=== PATIENT | female | born 1990 | race Caucasian/White ===

== ENCOUNTER 2021-07-23 13:49 | Emergency (ER) | payer SELFPAY ==
--- OUTSIDE RECORDS SUMMARY | 2021-07-23 13:52 | XMS REPORT | Continuity of Care Document ---
:1990 Author Organization [facility] t Address [address] [place] [address] Care Team Providers Name Role Phone UNKNOWN Attending Clinician Unavailable Praveen Lizarraga Attending Clinician Unavailable Physician, No Primary or Family Admitting Clinician Unavaila ble Payers Payer Name Policy Type Policy Number Effective Date Expiration Date S ource $20 G [id number] 2007 00:00:00 Problems This patient has no known problems. Allergies, Adverse Reactions, Alerts Allergy Allergy Status Severity Reaction(s) Onset Inactive Treating Comm ents Source Name Type Date Date Clinician [place] Active [place] RASH 2020-04 [facility] ins 04-22 [place] 00:00: [address] [place] DA Active SV [facility] 6-11 [place] 00:00: [address] Medications This patient has no known medications. Procedures This patient has no known procedures. Encounters Start End Encounter Admission Attending Care Care Encounter Source Date/Time Date/Time Type Type Clinicians Facility Department ID 2021-07-09 Outpatient [facility] [id number] [place] 00:38:59 [facility] 2021-02-20 2021-02-20 Outpatient UNKNOWN HCANW REF [id number] [id number] [facility] 13:22:00 13:22:00 [id number] [facility] 2021-02-20 2021-02-20 Emergency EM Crismon, HCACR ESTRELLITA [id number] 1-2 [facility] 07:08:00 10:32:00 Christopher [id number] [facility] 2021-02-20 2021-02-20 Emergency EM Crismon, HCACR H[facility]CR [id number] [facility] 07:08:00 10:32:00 Christopher 24 [facility] Results Test Description Test Time Test Comments Results Result [facility] e Comments - US TRANSVAGINAL 2021-02-20 NON OB 09:32:00 [facility] : 1990 Sex: F * Patient Name: PETROS LIZ Unit No: [id number] EXAMS: CPT CODE: [id number] [place] [address] C3 TIME OF STUDY: 02/20/2021 REASON FOR EXAM: ovarain cyst COMPARISON: CT on the same date. TECHNIQUE: Transvaginal sonogram was performed. FINDINGS: Transvaginal sonogram: The uterus is anteverted. It measures 3.3 cm in length, 4.4 cm AP, and 5.1 cm transverse. No focal myometrial masses are seen. The endometrium echo stripe has a normal appearance and measures 5 mm in maximal AP dimension. IUD is present in the endometrium. The cervix is visualized and has nabothian cysts. The ovaries are well visualized and have a normal follicular appearance. The right ovary measures 2.5 x 1.7 x 1.8cm. The left measures 4.1 x 2.2 x 2.8 cm. There is a 2.2 cm dominant left ovarian follicle. Normal color flow is identified to both ovaries. No adnexal masses are identified. There is no fluid in the cul-de-sac. IMPRESSION: 1. No focal uterine masses. IUD in place in the endometrium. 2. No adnexal masses. 2.2 cm dominant left ovarian follicle, otherwise unremarkable ovaries. at 0932 Reported and signed by: Antonino Miranda MD CC: Indira MARIE Technologist: Sophy Stevenson Trnscrbd D/ (0932) [email or web address] Probe: [id number] Orig Print D/T: S: 02/20/2021 (0935) Probe: ELISABETH Cavanaugh NAME: PETROS LIZ [address] [place] [address] PHYS: Ind[place], [place] [address] : 1990 AGE: 30 SEX: F LOC: B.ERS PHONE #: [phone] EXAM DATE: 02/20/2021 STATUS: REG ER FAX #: [phone] RAD NO: Page 1 Signed Report LACTIC ACID 2021-02-20 09:17:00 Test Item Value Reference Range Interpretation Comme nts LACTIC ACID (test code = LACT) 2.1 mmol/L 0.4-2.0 H ON 02/20/21 AT 0917, B.LAB.EJK CALLED TO JASSON HUNTER. The report was conf irmed by read back protocols Y,N: YES. Critical values after th e first occurrence are excluded. - CT ABD PELVIS [id number] 08:35:00 [facility] : 1990 Sex: F Patient Name: PETROS LIZ Unit No: [id number] EXAMS: CPT CODE: [id number] CT ABD PELVIS W/CONT 48974 EXAM: - CT ABD PELVIS W/CONT LOCATION: C3 INDICATION: 30 years -old Female with bl flank pain / hx renal; calculi TECHNIQUE: Contrast - IV contrast was given. No oral contrast was given Portal venous phase - abdomen and pelvis No delayed phase images were obtained. Reconstructions - coronal and sagittal planes This exam was performed according to our departmental dose-optimizationprogram, which includes automated exposure control, adjustment of the mA and/or kV according to patient size and/or use of iterative reconstruction technique COMPARISON: None FINDINGS: Statements: None. Thoracic: Included images of the lower chest demonstrate no abnormalities. Hepatobiliary: The liver is normal without focal lesion. The gallbladder is normal. No biliary dilation. Pancreas: Normal. Spleen: Normal. Adrenals: Normal. Genitourinary: The kidneys are normal. No evidence of hydronephrosis. Evaluation of the bladder is limited, but no obvious bladder abnormality is present. 2.2 cm cystlike lesion in the left ovary. Gastrointestinal: No bowel obstruction or perienteric inflammation. The appendix is normal. Vascular: No evidence of aneurysm or dissection. Lymphatics: No enlarged lymph nodes by CT size criteria. Bones/Soft Tissues: No acute osseous findings. No ventral hernias. Peritoneum/Other: No extraluminal air. No extraluminal fluid. IMPRESSION: 2.2 cm cystlike lesion in the left ovary. [facility] Mao NAME: PETROS LIZ [address] [place] [address] Blvd PHYS: ABBE.Indira [place], [place] [address] : 1990 AGE: 30 SEX: F LOC: STEPHANIE PHONE #: [phone] EXAM DATE: 02/20/2021 STATUS: REG ER FAX #: [phone] RAD #: D/C DT PAGE 1 Signed Report (CONTINUED) Patient Name: PETROS LIZ Unit No: [id number] EXAMS: CPT CODE: [id number] CT ABD PELVIS W/CONT 05722 <Continued> No evidence of obstructive uropathy. at 0835 Reported and signed by: Adelso Adler MD CC: Indira MARIE Dictated Date/Time: 02/20/2021 (0835) Technologist: Orlando Burgos CTDI: 9.22 DLP: 492.32 Trnscrpt: 02/20/2021 (0835) [email or web address] ELISABETH Cavanaugh NAME: [address] [place]: [place] [address] : 1990 AGE: 30 SEX: FACCT NO: [id number] LOC: B.ERS PHONE #: [phone] EXAM DATE: 02/20/2021 STATUS: REG ER FAX #: [phone] RAD #: D/C DT PAGE 2 Signed Report Patient Name: PETROS LIZ Unit No: [id number] EXAMS: CPT CODE: [id number] CT ABD PELVIS W/CONT 81633 <Continued> Orig Print D/T: S: 02/20/2021 (0839) ELISABETH Cavanaugh NAME: [address] PHYS: [place] [address] : 1990 AGE: 30 SEX: F LOC: B.ERS PHONE #: [phone] EXAM DATE: 02/20/2021 STATUS: REG ER FAX #: [phone] RAD #: D/C DT PAGE 3 Signed [id number] 08:03:00 Test Item Value Reference Range Interpretation Comments LIPASE (test code = LIP) 50 Unit/L 114-286 L BASIC METABOLIC [id number] 08:03:00 Test Item Value Reference Range Interpretation Comments SODIUM (test code = 135.0 mmol/L 133-144 N NA) POTASSIUM (test 3.8 mmol/L 3.5-5.1 N code = K) CHLORIDE (test code 100 mmol/L 95-105 N = CL) CARBON DIOXIDE 26 mmol/L 21-32 N (test code = CO2) ANION GAP (test 9.0 GAP calc 4.0-15.0 N code = GAP) GLUCOSE (test code 113 MG/DL 70-110 H = GLU) BLOOD UREA NITROGEN 15 MG/DL 7-18 N (test code = BUN) CREATININE (test 0.64 MG/DL 0.55-1.30 N Results may be code = CREAT) depressed if p atient is takingN-Acetylc ystei ne (NAC) and Metamizole (Dipyrone). CALCIUM (test code 9.0 MG/DL 8.5-10.1 N = CA) INDEX HEMOLYSIS 1 NORMAL <10 MG See_Comment [Automat ed message] (test code = Index/DL The system [employer]) generated this result transmit ayde reference range : 1 NORMAL. The reference range was not used to interpret this result as normal/abnormal . INDEX ICTERIC (test 1 NORMAL <2 MG See_Comment [Auto mated message] code = ICTINDEX) Index/DL The system which generated this result transmit ayde reference range : 1 NORMAL. The reference range was not used to interpret this result as normal/abnormal . INDEX LIPEMIA (test 1 NORMAL <50 MG See_Comment [Aut omated message] code = LIPINDEX) Index/DL The system which generated this result transmit ayde reference range : 1 NORMAL. The reference range was not used to interpret this result as normal/abnormal . HEPATIC FUNCTION [id number] 08:03:00 Test Item Value Reference Range Interpretation Comments TOTAL PROTEIN (test code = PROT) 8.4 G/DL 6.4-8.2 H ALBUMIN (test code = ALB) 4.0 G/DL 3.4-5.0 N BILIRUBIN TOTAL (test code = BILT) 0.75 MG/DL 0.00-1.00 N BILIRUBIN DIRECT (test code = 0.19 MG/DL 0.00-0.30 N BILD) BILIRUBIN INDIRECT (test code = 0.56 MG/DL 0.2-1.3 N BILIND) SGOT/AST (test code = AST) 24 Unit/L 15-37 N SGPT/ALT (test code = ALT) 46 Unit/L 12-78 N ALKALINE PHOSPHATASE TOTAL (test 86 Unit/L 45-117 N code = ALKP) CBC W/O [id number] 07:54:00 Test Item Value Reference Range Interpretation Comments WHITE BLOOD CELL (test code = WBC) 17.4 K/mm3 4.1-12.1 H RED BLOOD CELL (test code = RBC) 4.56 M/mm3 3.8-5.5 N HEMOGLOBIN (test code = HGB) 14.6 G/DL 10.6-15.8 N HEMATOCRIT (test code = HCT) 41.9 % 31.8-47.4 N MEAN CELL VOLUME (test code = MCV) 91.9 fL 80.1-101.1 N MEAN CELL HGB (test code = MCH) 32.0 pg 25.3-35.3 N MEAN CELL HGB CONCETRATION (test 34.8 G/DL 32.7-35.1 N code = MCHC) RED CELL DISTRIBUTION WIDTH (test 12.1 % 12.2-16.4 L code = RDW) PLATELET COUNT (test code = PLT) 287 K/mm3 155-337 N MEAN PLATELET VOLUME (test code = 8.8 fL 6.8-11.2 N MPV) UA RFLX MICR CULT IF [id number] 07:51:00 Test Item Value Reference Range Interpretation Comments UA COLOR (test code = YELLOW DESCRIPT YELLOW COLU) UA APPEARANCE (test TURBID CLEAR A code = APPU) (1+)HAZY-CLDY DESCRIPT UA GLUCOSE DIPSTICK NORMAL (0) See_Comment [Automa ayde (test code = DGLUU) mg/dL message] The system which generated this result transmit ayde reference range : 0 (NORMAL). The reference range was not used to interpret this result as normal/abnormal . UA BILIRUBIN DIPSTICK NEGATIVE (0.0) See_Comment [Au tomated (test code = BILU) mg/dL message] The system which generated this result transmit ayde reference range : (NEG) 0. The reference range was not used to interpret this result as normal/abnormal . UA KETONE DIPSTICK NEGATIVE (0) See_Comment [Automat ed (test code = KETU) mg/dL message] The system which generated this result transmit ayde reference range : (NEG) 0. The reference range was not used to interpret this result as normal/abnormal . UA SPECIFIC GRAVITY 1.026 SG 1.001-1.035 (test code = SGU) UA BLOOD DIPSTICK NEGATIVE (0.00) See_Comment [Autom ated (test code = WILLIAM) mg/dL message] T he system which generated this result transmit ayde reference range : 0 (NEG). The reference range was not used to interpret this result as normal/abnormal . UA PH DIPSTICK (test 6.5 pH UNITS 4.6-8.0 code = JEFF) UA PROTEIN DIPSTICK NEGATIVE (0) See_Comment [Automa ayde (test code = PROU) mg/dL message] The system which generated this result transmit ayde reference range : <30 (1+). The reference range was not used to interpret this result as normal/abnormal . UA UROBILINIOGEN NORMAL (0) See_Comment [Automated DIPSTICK (test code = mg/Dl messag e] The URO) system which generated this result transmit ayde reference range : <2.0 (1+). The reference range was not used to interpret this result as normal/abnormal . UA NITRITE DIPSTICK NEGATIVE (0) NEG (test code = MIRYAM) SCREEN UA LEUKOCYTE ESTERASE 250 Leuk/mcL See_Comment A [Auto mated DIPSTICK (test code = messag e] The LEUU) system which generated this result transmit ayde reference range : (NEG) 0. The reference range was not used to interpret this result as normal/abnormal . UA COMMENT (test code CLEAN CATCH SpecComment = COMU) SPEC NoteSPEC UA WBC (test code = 3-5 #WBC/HPF 0-3 WBCU) UA RBC (test code = 0-3 #RBC/HPF 0-3 RBCU) UA BACTERIA (test MODERATE >5 NONE-FEW A code = BACU) /HPF UA SQUAMOUS CELLS MANY >20 /UL NONE-SQepi (test code = SQU) UA MUCUS (test code = RARE /LPF NONE MUCU) UA AMORPHOUS SEDIMENT RARE >0 #/mcL NONE-FEW (test code = AMORU) UA CULTURE NEEDED? Crit NOTmet Cult byWBC (test code = UACULT) CULT-N/A Criteria Specimen comments: ccIndication for culture: Suprapubic PainUR HCG QUAL 2021-02-20 07:51:00 Test Item Value Reference Range Interpretation Comments UR HCG QUAL (test NEGATIVE NEG Very dilut e urines with a code = HCGQLU) low specific gravity may notcontain repr esentative levels of hCG. Specimen comments: ccIndication for culture: Suprapubic Pain- XR ELBOW 3 + V [id number] 18:55:00 FAX: Ortega Barrera MD [phone] [place]: [facility]: [facility] FAX: Efren Smith NP [phone] Patient Name: PETROS SYKES Unit No: [id number] EXAMS: CPT CODE: [id number] XR ELBOW 3 + [place] [address] EXAMINATION: - XR FOREARM 2 VIEWS LT, - XR ELBOW 3 + V LT. LOCATION: B2. HISTORY: fall. COMPARISON: None. TECHNIQUE: AP, lateral, and oblique views of the left elbow were obtained. AP and lateral views of the left forearm w ere also obtained. FINDINGS: No acute fracture or dislocation is identified. Soft tissue structures appear within normal limits. IMPRESSION: No acute osseous abnormality is identified. at 1855 Reported and signed by: Pau Cardenas MD CC: Efren Gonzalez NP Dictated Date/Time: 06/06/2018 (1854)Technologist: Elise Stark Transcribed Date/Time: 06/06/2018 (1854) By: [email or web address] Orig Print D/T: S: 06/06/2018 (1858) ELISABETH Cavanaugh NAME: PETROS SYKES [address] [place] [address] PHYS: TERE. - Efren Gonzalez [place], [place] [address] : 1990 AGE: 28 SEX: F LOC: B.ERS PHONE #: [phone] EXAM DATE: 06/06/2018 STATUS: REG ER FAX #: [phone] RAD NO: DC Dt: PAGE 1 Signed Report- XR FOREARM 2 VIEWS LT 2018-06-06 18:55:00 FAX: Ortega Barrera MD [phone] [place]: St: [facility] FAX: Efren Smith NP [phone] Patient Name: PETROS SYKES Unit No: [id number] EXAMS: CPT CODE: [id number] XR FOREARM [address] [place] [address] EXAMINATION: - XR FOREARM 2 VIEWS LT, - XR ELBOW 3 + V LT. LOCATION: B2. HISTORY: fall. COMPARISON: None. TECHNIQUE: AP, lateral, and oblique views of the left elbow were obtained. AP and lateral views of the left forearm w ere also obtained. FINDINGS: No acute fracture or dislocation is identified. Soft tissue structures appear within normal limits. IMPRESSION: No acute osseous abnormality is identified. at 1855 Reported and signed by: Pau Cardenas MD CC: Efren Gonzalez NP Dictated Date/Time: 06/06/2018 (1854)Technologist: Elise Stark Transcribed Date/Time: 06/06/2018 (1854) By: [email or web address] Orig Print D/T: S: 06/06/2018 (1858) ELISABETH Cavanaugh NAME: PETROS SYKES [address] [place] [address] PHYS: - Efren Gonzalez [place], [place] [address] : 1990 AGE: 28 SEX: F LOC: B.ERS PHONE #: [phone] EXAM DATE: 06/06/2018 STATUS: REG ER FAX #: [phone] RAD NO: DC Dt: PAGE 1 Signed Report- XR HAND 3 + V LT 2018-06-06 18:54:00 FAX: Ortega Barrera MD [phone] [place]: St: REG FAX: Efren Smith NP [phone] Patient Name: PETROS SYKES Unit No: [id number] EXAMS: CPT CODE: [id number] XR HAND 3 + [place] [address] EXAMINATION: - XR WRIST 3 + V LT, - XR HAND 3 + V LT. LOCATION: B2. HISTORY: fall. COMPARISON: None. TECHNIQUE: AP, lateral, andoblique views of the left wrist and left hand were obtained. FINDINGS: No a cute fracture or dislocation is identified. Incidental note is made of negative ulnar variance. Soft tissue structures appear within normal limits. IMPRESSION: No acute osseous abnormality is identified. at 1854 Reported and signed by: Pau Cardenas MD CC: Efren Gonzalez NP Dictated Date/Time: 06/06/2018 (1853)Technologist: Elise Stark Transcribed Date/Time: 06/06/2018 (1853) By: [email or web address] Orig Print D/T: S: 06/06/2018 (1856) ELISABETH Cavanaugh NAME: PETROS SYKES [address] [place] [address] PHYS: NIRJA. - Efren Gonzalez [place] [address] : 1990 AGE: 28 SEX: F LOC: STEPHANIE PHONE #: [phone] EXAM DATE: 06/06/2018 STATUS: REG ER FAX #: [phone] RAD NO: DC Dt: PAGE 1 Signed Report- XR WRIST 3 + V LT 2018-06-06 18:54:00 FAX: Ortega Barrera MD [phone] [place]: E St: REG FAX: Efren Smith NP [phone] Patient Name: PETROS SYKES Unit No: [id number] EXAMS: CPT CODE: [id number] XR WRIST 3 + [place] LT [address] EXAMINATION: - XR WRIST 3 + V LT, - XR HAND 3 + V LT. LOCATION: B2. HISTORY: fall. COMPARISON: None. TECHNIQUE: AP, lateral, andoblique views of the left wrist and left hand were obtained. FINDINGS: No a cute fracture or dislocation is identified. Incidental note is made of negative ulnar variance. Soft tissue structures appear within normal limits. IMPRESSION: No acute osseous abnormality is identified. at 1854 Reported and signed by: Pau Cardenas MD CC: Efren Gonzalez NP Dictated Date/Time: 06/06/2018 (1853)Technologist: Elise Stark Transcribed Date/Time: 06/06/2018 (1853) By: [email or web address] Orig Print D/T: S: 06/06/2018 (1856) [facility] Mao NAME: PETROS SYKES [address] [place] [address] PHYS: [email or web address] - [place] [address] : 1990 AGE: 28 SEX: F LOC: STEPHANIE PHONE #: [phone] EXAM DATE: 06/06/2018 STATUS: REG ER FAX #: [phone] RAD NO: DC Dt: PAGE 1 Signed Report- XR HUMERUS 2 + V LT 2018-06-06 18:51:00 FAX: Ortega Barrera MD [phone] [place]: E St: REG FAX: Efren Smith NP [phone] Patient Name: PETROS SYKES Unit No: [id number] EXAMS: CPT CODE: [id number] XR HUMERUS 2 + [place] [address] EXAMINATION: - XR HUMERUS 2 + V LT. LOCATION: B2. HISTORY: fall. COMPARISON: None. TECHNIQUE: AP and lateral views of the left humerus were obtained. FINDINGS: No acute fracture or dislocation is identified. Soft tissue structures appear within normal limits. IMPRESSION: No acuteosseous abnormality is identified. at 1851 Reported and signed by: Pau Cardenas [facility]: Efren Gonzalez NP Dictated Date/Time: 06/06/2018 (1850)Technologist: Elise Stark Transcribed Date/Time: 06/06/2018 (1850) By: [email or web address] Orig Print D/T: S: 06/06/2018 (1854) ELISABETH Cavanaugh NAME: PETROS SYKES [address] [place] [address] PHYS: TERE. - Efren Gonzalez [place], [place] [address] : 1990 AGE: 28 SEX: F LOC: STEPHANIE PHONE #: [phone] EXAM DATE: 06/06/2018 STATUS: REG ER FAX #: [phone] RAD NO: DC Dt: PAGE 1 Signed Report- XR SHOULDER 2 + V LT 2018-06-06 18:50:00 FAX: Ortega Barrera MD [phone] [place]: St: REG FAX: Efren Smith NP [phone] Patient Name: PETROS SYKES Unit No: [id number] EXAMS: CPT CODE: [id number] XR SHOULDER 2 + [place] [address] EXAMINATION: - XR SHOULDER 2 + V LT. LOCATION: B2. HISTORY: fall. COMPARISON: None. TECHNIQUE: Internal rotation, external rotation, and scapular Y views of the left shoulder were obtained. FINDINGS: No acute fracture or dislocation is identified. Soft tissue structures appear within normal limits. IMPRESSION: No acute osseous abnormality is identified. at 1850 Reported and signed by: Pau Cardenas MD CC: Efren Gonzalez NP Dictated Date/Guillermo e: 06/06/2018 (1849)Technologist: Elise Stark TranscribedDate/Time: 06/06/2018 (1849) By: [email or web address] Orig Print D/T: S: 06/06/2018 (185) ELISABETH Cavanaugh NAME: PETROS SYKES [address] [place] [address] PHYS: [email or web address] - Efren Gonzalez NP [place], [place] [address] : 1990 AGE: 28 SEX: F LOC: STEPHANIE PHONE #: [phone] EXAM DATE: 06/06/2018 STATUS: REG ER FAX #: [phone] RAD NO: DC Dt: PAGE 1 Signed Report
--- NOTE | 2021-07-23 14:11 | ER ---
Nurse's Notes [facility] Name: Brooke Thomas Age: 31 yrs Sex: Female : 1990 Arrival Date: 07/23/2021 Time: 13:50 Bed 17 Private MD: Diagnosis: Periapical abscess without sinus Presentation: 07/23 13:55 Chief complaint: Patient states: "On Sunday I noticed a toothache and it started to get ab2 better but I woke up today and my face is swollen. I think its another abscess.". Coronavirus screen: Vaccine status: Patient reports receiving the 2nd dose of the covid vaccine. Client denies travel out of the [place] in the last 14 days. At this time, the client does not indicate any symptoms associated with coronavirus-19. Ebola Screen: Patient negative for fever greater than or equal to 101.5 degrees Fahrenheit, and additional compatible Ebola Virus Disease symptoms Patient denies exposure to infectious person. Patient denies travel to an Ebola-affected area in the 21 days before illness onset. No symptoms or risks identified at this time. Initial Sepsis Screen: Does the patient meet any 2 criteria? No. Patient's initial sepsis screen is negative. Does the patient have a suspected source of infection? No. Patient's initial sepsis screen is negative. Risk Assessment: Do you want to hurt yourself or someone else? Patient reports no desire to harm self or others. Onset of symptoms is unknown. 13:55 Method Of Arrival: Ambulatory ab2 13:55 Acuity: ILA 4 ab2 Triage Assessment: 13:57 General: Appears in no apparent distress. uncomfortable, Behavior is calm, cooperative, ab2 appropriate for age. Pain: Complains of pain in right jaw Pain currently is 6 out of 10 on a pain scale. EENT: Reports pain in right jaw. Neuro: Level of Consciousness is awake, alert, obeys commands, Oriented to person, place, time, situation, Appropriate for age Strategic Planning Consultant are equal bilaterally Moves all extremities. Gait is steady, Speech is normal, Facial symmetry appears normal. Cardiovascular: No deficits noted. Denies chest pain, shortness of breath. Respiratory: Airway is patent Respiratory effort is even, unlabored, Respiratory pattern is regular, symmetrical. GI: No deficits noted. No signs and/or symptoms were reported involving the gastrointestinal system. : No deficits noted. No signs and/or symptoms were reported regarding the genitourinary system. Derm: Abscess located on right jaw. 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 - Social history:: Smoking status: Patient reports the use of cigarette tobacco products, smokes one pack cigarettes per day. Screenin:42 Abuse screen: Denies threats or abuse. Nutritional screening: No deficits noted. ll1 Tuberculosis screening: No symptoms or risk factors identified. Fall Risk Total Ascencio Fall Scale indicates No Risk (0-24 pts). Assessment: 14:42 Reassessment: No changes from previously documented assessment. Patient and/or family ll1 updated on plan of care and expected duration. Pain level reassessed. Patient is alert, oriented x 3, equal unlabored respirations, skin warm/dry/pink. Patient states feeling better. Vital Signs: 13:55 BP 121 / 80; Pulse 94; Resp 17; Temp 97.8(TE); Pulse Ox 100% on R/A; Weight 74.84 kg; ab2 Height 5 ft. 3 in. (160.02 cm); Pain 6/10; 14:42 BP 121 / 71; Pulse 88; Resp 16; Pulse Ox 100% ; ll1 13:55 Body Mass Index 29.23 (74.84 kg, 160.02 cm) ab2 ED Course: 13:50 Patient arrived in ED. jj6 13:57 Triage completed. ab2 13:58 Ibeth Quinn, MARION is Primary Nurse. ll1 13:58 Arm band placed on left wrist. ab2 13:59 Paul Lopez NP is PHCP. pm1 13:59 Mark Panchal MD is Attending Physician. pm1 13:59 Patient placed in an exam room, on a stretcher. ll1 14:43 Patient has correct armband on for positive identification. Bed in low position. Call ll1 light in reach. Side rails up X 1. Cardiac monitoring not applicable on this patient. 14:43 No provider procedures requiring assistance completed. Patient did not have IV access ll1 during this emergency room visit. Administered Medications: 14:08 Not Given (Physician Discretion): HYDROcodone-acetaminophen 5 mg-325 mg 1 tabs PO once; pm1 RASS on ADMIN: Combtv4, Very Agttd3, Agttd2, Rstlss1, AlertClm0, Drwsy-1, Lt Sdtn-2, Mod Sdtn-3, Dp Sdtn-4, UnArsble-5 14:15 Drug: Clindamycin 600 mg Route: IM; Site: left gluteus; 1 14:42 Follow up: Response: No adverse reaction ll1 14:15 Drug: Ketorolac 60 mg Route: IM; Site: right gluteus; 1 14:42 Follow up: Response: No adverse reaction; Pain is decreased; RASS: Alert and Calm (0) 1 Outcome: 14:11 Discharge ordered by MD. pm1 14:43 Discharged to home ambulatory. ll1 14:43 Condition: stable 14:43 Discharge instructions given to patient, Instructed on discharge instructions, follow up and referral plans. medication usage, Demonstrated understanding of instructions, follow-up care, medications, Prescriptions given X 2. 14:43 Patient left the ED. 1 Signatures: Paul Lopez NP MACHINE FOLDER pm1 Ibeth Quinn RN RN ll1 Libra Ramos6 Cosme Oliva ab2 Corrections: (The following items were deleted from the chart) 13:57 13:57 Allergies: No Known Allergies; ab2 ab2
--- NOTE | 2021-07-23 14:11 | EDPHYS ---
Physician Documentation [facility] Name: Brooke Thomas Age: 31 yrs Sex: Female : 1990 Arrival Date: 07/23/2021 Time: 13:50 Bed 17 Private MD: BLAISE Physician Mark Panchal HPI: 07/23 14:05 This 31 yrs old Female presents to ER via Ambulatory with complaints of Jaw Pain, pm1 Swelling right side of face. 14:05 Onset: The symptoms/episode began/occurred Dental pain onset 1 week ago. Onset swelling pm1 to right side of jaw onset yesterday. Patient has been taking leftover Keflex from prior dental infections for approximately 1 week without resolution of dental pain. Patient reports that she has a dentist. Associated signs and symptoms: Pertinent negatives: fever, sore throat. Modifying factors: The patient symptoms are alleviated by nothing. The patient has experienced similar episodes in the past, multiple times. The patient has not recently seen a physician. 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 - Social history:: Smoking status: Patient reports the use of cigarette tobacco products, smokes one pack cigarettes per day. ROS: 14:05 Constitutional: Negative for fever, chills, and weight loss. pm1 14:05 Cardiovascular: Negative for chest pain, palpitations, and edema, Respiratory: Negative for shortness of breath, cough, wheezing, and pleuritic chest pain, Abdomen/GI: Negative for abdominal pain, nausea, vomiting, diarrhea, and constipation, MS/Extremity: Negative for injury and deformity, Skin: Negative for injury, rash, and discoloration, Neuro: Negative for headache, weakness, numbness, tingling, and seizure. 14:05 ENT: Positive for dental pain, Right jaw swelling, Negative for sore throat, difficulty swallowing, difficulty handling secretions, hoarseness. 14:05 All other systems are negative. Exam: 14:05 Constitutional: This is a well developed, well nourished patient who is awake, alert, pm1 and in no acute distress. Head/Face: Normocephalic, atraumatic. 14:05 Skin: Warm, dry with normal turgor. Normal color with no rashes, no lesions, and no evidence of cellulitis. MS/ Extremity: Pulses equal, no cyanosis. Neurovascular intact. Full, normal range of motion. 14:05 ENT: Mouth: Lips: normal, moist, Oral mucosa: normal, pink and intact, moist, Gums: normal with healthy appearance, abscess, is not appreciated, drooling, is not appreciated, Negative for trismus, Dental exam: dental caries, that is severe, specifically in the lower right first molar (#30), missing teeth, diffusely, Swelling right jaw. 14:05 Neck: Exam negative for acute changes, External neck: is normal, Lymph nodes: no appreciated lymphadenopathy. 14:05 Cardiovascular: Exam negative for acute changes, Rate: normal, Rhythm: regular, Pulses: no pulse deficits are appreciated, Heart sounds: normal. 14:05 Respiratory: Exam negative for acute changes, respiratory distress, shortness of breath. 14:05 Neuro: Exam negative for acute changes, Orientation: is normal, Mentation: is normal, Motor: is normal, moves all fours. Vital Signs: 13:55 BP 121 / 80; Pulse 94; Resp 17; Temp 97.8(TE); Pulse Ox 100% on R/A; Weight 74.84 kg; ab2 Height 5 ft. 3 in. (160.02 cm); Pain 6/10; 14:42 BP 121 / 71; Pulse 88; Resp 16; Pulse Ox 100% ; ll1 13:55 Body Mass Index 29.23 (74.84 kg, 160.02 cm) ab2 MDM: 14:00 Patient medically screened. pm1 14:08 ED course: Patient PMPaware reviewed. Patient has taken suboxone in the past. Will give pm1 the patient non-narcotic medications in the ER. 14:15 Data reviewed: vital signs. Data interpreted: Pulse oximetry: on room air is 100 %. pm1 Interpretation: normal. 14:15 Counseling: I had a detailed discussion with the patient and/or guardian regarding: the pm1 historical points, exam findings, and any diagnostic results supporting the discharge/admit diagnosis, the need for outpatient follow up, for definitive care, a dentist, to return to the emergency department if symptoms worsen or persist or if there are any questions or concerns that arise at home. Administered Medications: 14:08 Not Given (Physician Discretion): HYDROcodone-acetaminophen 5 mg-325 mg 1 tabs PO once; pm1 RASS on ADMIN: Combtv4, Very Agttd3, Agttd2, Rstlss1, AlertClm0, Drwsy-1, Lt Sdtn-2, Mod Sdtn-3, Dp Sdtn-4, UnArsble-5 14:15 Drug: Clindamycin 600 mg Route: IM; Site: left gluteus; ll1 14:42 Follow up: Response: No adverse reaction ll1 14:15 Drug: Ketorolac 60 mg Route: IM; Site: right gluteus; ll1 14:42 Follow up: Response: No adverse reaction; Pain is decreased; RASS: Alert and Calm (0) ll1 Disposition Summary: 07/23/21 14:11 Discharge Ordered Location: Home pm1 Problem: new pm1 Symptoms: have improved pm1 Condition: Stable pm1 Diagnosis - Periapical abscess without sinus pm1 Followup: pm1 - With: Emergency Department - When: As needed - Reason: Worsening of condition Followup: pm1 - With: Private Physician - When: 2 - 3 days - Reason: Recheck today's complaints, Continuance of care, Re-evaluation by your physician Discharge Instructions: - Discharge Summary Sheet pm1 - Dental Abscess pm1 - Dental Pain pm1 - Diet and Dental Disease pm1 Forms: - Medication Reconciliation Form pm1 - Thank You Letter pm1 - Antibiotic Education pm1 - Prescription Opioid Use pm1 - Work release form ll1 Prescriptions: - Clindamycin HCl 300 mg Oral Capsule - take 1 capsule by ORAL route every 6 hours for 10 days; 40 capsule; Refills: 0, pm1 Product Selection Permitted - Diclofenac Sodium 75 mg Oral tablet,delayed release (DR/EC) - take 1 tablet by ORAL route 2 times per day As needed; 30 tablet; Refills: 0, pm1 Product Selection Permitted Addendum: 07/28/2021 18:58 Co-signature as Attending Physician, Mark Panchal MD I agree with the assessment and c jenkins plan of care. Signatures: Mark Panchal MD MD cha Marinas, Patrick, RENEWALS REPRESENTATIVE RENEWALS REPRESENTATIVE pm1 Ibeth Quinn RN RN 1 Bleininger, Cosme ab2 Corrections: (The following items were deleted from the chart) 07/23 13:57 13:57 Allergies: No Known Allergies; ab2 ab2
[2021-07-23] MEDS ORDERED: CLINDAMYCIN IV 150 MG/ML (4 mL) VIAL ONE (14:12)
[2021-07-23] MEDS ORDERED: KETOROLAC 30 MG/ML INJ ONE (14:13)
[2021-07-23 15:31] VITALS: TEMP 97.8; O2SAT 100
[2021-07-23 15:33] VITALS: BP 121/71
== END 2021-07-23 14:43 | disposition home or self-care (01) ==
LOC: ER 13:49
DX: K04.7 Periapical abscess without sinus (principal); Z88.1 Allergy status to other antibiotic agents; F17.210 Nicotine dependence, cigarettes, uncomplicated
CPT/HCPCS: 96372; 99283; S0077

== ENCOUNTER 2021-07-24 13:42 | Emergency (ER) | payer OTHER, SELFPAY ==
--- OUTSIDE RECORDS SUMMARY | 2021-07-24 13:45 | XMS REPORT | Continuity of Care Document ---
:1990 Author Organization [facility] t Address [address] [place] [address] Care Team Providers Name Role Phone UNKNOWN Attending Clinician Unavailable Praveen Lizarraga Attending Clinician Unavailable Physician, No Primary or Family Admitting Clinician Unavaila ble Payers Payer Name Policy Type Policy Number Effective Date Expiration Date S ource $20 G [id number] 2007 00:00:00 Problems This patient has no known problems. Allergies, Adverse Reactions, Alerts Allergy Allergy Status Severity Reaction(s) Onset Inactive Treating Comm ents Source Name Type Date Date Clinician [place] DA Active [place] RASH 2020-04 [facility] ins 04-22 [place] 00:00: [address] [place] DA Active SV [facility] 09-24 [place] 00:00: [address] Medications This patient has no known medications. Procedures This patient has no known procedures. Encounters Start End Encounter Admission Attending Care Care Encounter Source Date/Time Date/Time Type Type Clinicians Facility Department ID 2021-07-09 Outpatient [facility] [id number] [place] 00:38:59 [facility] 2021-02-20 2021-02-20 Outpatient UNKNOWN HCANW REF [id number] [id number] [facility] 13:22:00 13:22:00 [id number] [facility] st 2021-02-20 2021-02-20 Emergency EM Crismon, [facility] ESTRELLITA [id number] [id number] [facility] 07:08:00 10:32:00 Christopher [id number] [facility] 2021-02-20 2021-02-20 Emergency EM Crismon, [facility] [id number] [facility] 07:08:00 10:32:00 Christopher 24 Co [facility] Results Test Description Test Time Test Comments Results Result [facility] e Comments - US TRANSVAGINAL 2021-02-20 NON OB 09:32:00 [facility] 1990 Sex: F * Patient Name: PETROS LIZ Unit No: [id number] EXAMS: CPT CODE: [id number] [place] [address] C3 TIME OF STUDY: 02/20/2021 REASON FOR [...] ovaries. at 0932 Reported and signed by: Atnonino Miranda MD CC: Indira MARIE Technologist: Sophy Stevenson Trnscrbd D/ (09) t.[email or web address] Probe: [id number] Orig Print D/T: S: 02/20/2021 (0935) Probe: ELISABETH Cavanaugh NAME: PETROS LIZ [address] [place] [address] PHYS: [place], [place] [address] : 1990 AGE: 30 SEX: F LOC: B.ERS PHONE #: [phone] EXAM DATE: 02/20/2021 STATUS: REG ER FAX #: [phone] RAD NO: Page 1 Signed Report LACTIC ACID 2021-02-20 09:17:00 Test Item Value Reference Range Interpretation Comme nts LACTIC ACID (test code = LACT) 2.1 mmol/L 0.4-2.0 H ON 02/20/21 AT 0917, B.LAB.EJK CALLED TO JASSON HUNTER. The report was conf irmed by read back protocols Y,N: YES. Critical values after th e first occurrence are excluded. - CT ABD PELVIS W/[id number] 08:35:00 [facility] : 1990 Sex: F Patient Name: PETROS LIZ Unit No: [id number] EXAMS: CPT CODE: [id number] CT ABD PELVIS W/CONT 80952 EXAM: - CT ABD PELVIS W/CONT LOCATION: [...] cm cystlike lesion in the left ovary. [facility] Mao NAME: PETROS LIZ [address] [place] [address] Blvd PHYS: Indira [place], [place] [address] : 1990 AGE: 30 SEX: F LOC: STEPHANIE PHONE #: [phone] EXAM DATE: 02/20/2021 STATUS: REG ER FAX #: [phone] RAD #: D/C DT PAGE 1 Signed Report (CONTINUED) Patient Name: PETROS LIZ Unit No: [id number] EXAMS: CPT CODE: [id number] CT ABD PELVIS W/CONT 59778 <Continued> No evidence of obstructive uropathy. at 0835 Reported and signed by: Adelso Adler MD CC: Indira MARIE Dictated Date/Time: 02/20/2021 (0835) Technologist: Orlando Burgos CTDI: 9.22 DLP: 492.32 Trnscrpt: 02/20/2021 (0835) [email or web address] ELISABETH Cavanaugh NAME: [address] PHYS: [place]it[place]dira [place] [address] : 1990 AGE: 30 SEX: FACCT NO: [id number] LOC: B.eSNF PHONE #: [phone] EXAM DATE: 02/20/2021 STATUS: REG ER FAX #: [phone] RAD #: D/C DT PAGE 2 Signed Report Patient Name: PETROS LIZ Unit No: [id number] EXAMS: CPT CODE: [id number] CT ABD PELVIS W/CONT 43207 <Continued> Orig Print D/T: S: 02/20/2021 (0839) ELISABETH Cavanaugh NAME: [address] PHYS: ABBELissa Craver [place] [address] : 1990 AGE: 30 SEX: F LOC: B.ERS PHONE #: [phone] EXAM DATE: 02/20/2021 STATUS: REG ER FAX #: [phone] RAD #: D/C DT PAGE 3 Signed [id number] 08:03:00 Test Item Value Reference Range Interpretation Comments LIPASE (test code = LIP) 50 Unit/L 114-286 L BASIC METABOLIC [id number] 08:03:00 Test Item Value Reference Range Interpretation [...] message] (test code = Index/DL The system [facility]) generated this result transmit ayde reference range [...] this result as normal/abnormal . HEPATIC FUNCTION [id number] 08:03:00 Test Item Value Reference Range Interpretation [...] 45-117 N code = ALKP) CBC W/O [id number] 07:54:00 Test Item Value Reference Range Interpretation [...] N MPV) UA RFLX MICR CULT IF [id number] 07:51:00 Test Item Value Reference Range Interpretation [...] Suprapubic Pain- XR ELBOW 3 + V [id number] 18:55:00 FAX: Otrega Barrera MD [phone] [place]: St: [facility] FAX: Efren Smith NP [phone] Patient Name: PETROS SYKES Unit No: [id number] EXAMS: CPT CODE: [id number] XR ELBOW 3 + V LT [address] EXAMINATION: - XR FOREARM 2 VIEWS LT, [...] By: [email or web address] Orig Print D/T: S: 06/06/2018 (702) ELISABETH Cavanaugh NAME: PETROS SYKES [address] [place] [address] PHYS: TERE. Efren Gonzalez NP, [place] [address] : 1990 AGE: 28 SEX: F LOC: BFERNANDA PHONE #: [phone] EXAM DATE: 06/06/2018 STATUS: REG ER FAX #: [phone] RAD NO: DC Dt: PAGE 1 Signed Report- XR FOREARM 2 VIEWS LT 2018-06-06 18:55:00 FAX: Ortega Barrera MD [phone] [place]: St: REG FAX: Efren Smith NP [phone] Patient Name: PETROS SYKES Unit No: [id number] EXAMS: CPT CODE: [id number] XR FOREARM [address] [place] [address] EXAMINATION: - XR FOREARM 2 VIEWS LT, [...] 06/06/2018 (1858) ELISABETH Cavanaugh NAME: PETROS SYKES [address] [place] [address] PHYS: - Efren Gonzalez NP, [place] [address] : 1990 AGE: 28 SEX: F LOC: BFERNANDA PHONE #: [phone] EXAM DATE: 06/06/2018 STATUS: REG ER FAX #: [phone] RAD NO: DC Dt: PAGE 1 Signed Report- XR HAND 3 + V LT 2018-06-06 18:54:00 FAX: Ortega Barrera MD [phone] [place]: St: REG FAX: Efren Smith NP [phone] Patient Name: PETROS SYKES Unit No: [id number] EXAMS: CPT CODE: [id number] XR HAND 3 + V LT [address] EXAMINATION: - XR WRIST 3 + V [...] 06/06/2018 (1856) ELISABETH Cavanaugh NAME: PETROS SYKES [address] [place] [address] PHYS: TERE. - Efren Gonzalez [place], [place] [address] : 1990 AGE: 28 SEX: F LOC: STEPHANIE PHONE #: [phone] EXAM DATE: 06/06/2018 STATUS: REG ER FAX #: [phone] RAD NO: DC Dt: PAGE 1 Signed Report- XR WRIST 3 + V LT 2018-06-06 18:54:00 FAX: Ortega Barrera MD [phone] [place]: E St: REG FAX: Efren Smith NP [phone] Patient Name: PETROS SYKES Unit No: [id number] EXAMS: CPT CODE: [id number] XR WRIST 3 + V LT [address] EXAMINATION: - XR WRIST 3 + V [...] Elise Stark Transcribed Date/Time: 06/06/2018 (1853) By: [email or web address] Orig Print D/T: S: 06/06/2018 (1856) [facility] Mao NAME: PETROS SYKES [address] [place] [address] PHYS: TERE.01 - Efren Gonzalez NP, [place] [address] : 1990 AGE: 28 SEX: F LOC: STEPHANIE PHONE #: [phone] EXAM DATE: 06/06/2018 STATUS: REG ER FAX #: [phone] RAD NO: DC Dt: PAGE 1 Signed Report- XR HUMERUS 2 + V LT 2018-06-06 18:51:00 FAX: Ortega Barrera MD [phone] [place]: E St: REG FAX: Efren Smith NP [phone] Patient Name: PETROS SYKES Unit No: [id number] EXAMS: CPT CODE: [id number] XR HUMERUS 2 + [place] [address] EXAMINATION: - XR HUMERUS 2 + V LT. LOCATION: B2. HISTORY: fall. COMPARISON: None. TECHNIQUE: AP and lateral views of the left humerus were obtained. FINDINGS: No acute fracture or dislocation is identified. Soft tissue structures appear within normal limits. IMPRESSION: No acuteosseous abnormality is identified. at 1851 Reported and signed by: Pau Cardenas [facility]: Efren Gonzalez NP Dictated Date/Time: 06/06/2018 (1850)Technologist: Elise Stark Transcribed Date/Time: 06/06/2018 (1850) By: [email or web address] Orig Print D/T: S: 06/06/2018 (1854) ELISABETH Cavanaugh NAME: PETROS SYKES [address] [place] [address] PHYS: TERE. E[place]ren [place], [place] [address] : 1990 AGE: 28 SEX: F LOC: STEPHANIE PHONE #: [phone] EXAM DATE: 06/06/2018 STATUS: REG ER FAX #: [phone] RAD NO: DC Dt: PAGE 1 Signed Report- XR SHOULDER 2 + V LT 2018-06-06 18:50:00 FAX: Ortega Barrera MD [phone] [place]: E St: REG FAX: Efren Smith NP [phone] Patient Name: PETROS SYKES Unit No: [id number] EXAMS: CPT CODE: [id number] XR SHOULDER 2 + V LT [address] EXAMINATION: - XR SHOULDER 2 + V [...] By: [email or web address] Orig Print D/T: S: 06/06/2018 (1852) ELISABETH Cavanaugh NAME: PETROS SYKES [address] [place] [address] PHYS: WEIJA. - Efren Gonzalez [place] [address] : 1990 AGE: 28 SEX: F LOC: STEPHANIE PHONE #: [phone] EXAM DATE: 06/06/2018 STATUS: REG ER FAX #: [phone] RAD NO: DC Dt: PAGE 1 Signed Report
--- NOTE | 2021-07-24 16:25 | ER ---
Nurse's Notes [facility] Name: Brooke Thomas Age: 31 yrs Sex: Female : 1990 Arrival Date: 07/24/2021 Time: 13:46 Bed Waiting Private MD: Diagnosis: Presentation: 07/24 13:50 Chief complaint: Patient states: R sided jaw swelling has gotten worse since yesterdays ll1 visit. Taking antibiotics. Coronavirus screen: Vaccine status: Patient reports receiving the 2nd dose of the covid vaccine. Client denies travel out of the [place] in the last 14 days. At this time, the client does not indicate any symptoms associated with coronavirus-19. Ebola Screen: Patient denies travel to an Ebola-affected area in the 21 days before illness onset. Initial Sepsis Screen: Does the patient meet any 2 criteria? No. Patient's initial sepsis screen is negative. Does the patient have a suspected source of infection? Yes: Other: jaw/tooth. Risk Assessment: Do you want to hurt yourself or someone else? Patient reports no desire to harm self or others. Onset of symptoms was July 18, 2021. 13:50 Method Of Arrival: Ambulatory ll1 13:50 Acuity: ILA 3 ll1 Triage Assessment: 13:52 General: Appears uncomfortable, Behavior is calm, cooperative, appropriate for age. ll1 Pain: Complains of pain in R jaw Quality of pain is described as aching. EENT: Reports pain in right jaw. Neuro: No deficits noted. Cardiovascular: No deficits noted. 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 - Social history:: Smoking status: Patient reports the use of cigarette tobacco products, smokes one pack cigarettes per day. Vital Signs: 13:50 BP 118 / 66; Pulse 82; Resp 17; Temp 97.9; Pulse Ox 99% ; Weight 74.84 kg; Height 5 ft. ll1 3 in. (160.02 cm); Pain 9/10; 13:50 Body Mass Index 29.23 (74.84 kg, 160.02 cm) ll1 ED Course: 13:46 Patient arrived in ED. rg4 13:51 Triage completed. ll1 13:52 Arm band placed on. ll1 15:01 Figueroa Magaña [facility] mirtha 15:01 Mark Panchal MD is Attending Physician. mirtha Administered Medications: No medications were administered Outcome: 16:24 Patient left the ED. Signatures: Figueroa Magaña PA PA jmm Smirch, Shelby, RN RN Astrid Quinonez 4 Ibeth Quinn RN RN ll1 Corrections: (The following items were deleted from the chart) 13:52 13:51 PMHx: None; ll1 ll1 13:53 13:50 Pulse 82bpm; Resp 17bpm; Pulse Ox 99%; Temp 97.9F; 74.84 kg; Height 5 ft. 3 in.; ll1 BMI: 29.2; Pain 9/10; ll1
[2021-07-24 16:30] VITALS: BP 118/66; TEMP 97.9; O2SAT 99
--- NOTE | 2021-07-25 16:25 | EDPHYS ---
Physician Documentation [facility] Name: Brooke Thomas Age: 31 yrs Sex: Female : 1990 Arrival Date: 07/24/2021 Time: 13:46 Bed Waiting Private MD: ED Physician Mark Panchal Historical: - Allergies: 07/24 13:51 Amoxicillin; ll1 - PMHx: 13:51 heterozygus factor 5; ll1 - PSHx: 13:51 None; ll1 - Immunization history:: Client reports receiving the 2nd dose of the Covid vaccine, Flu vaccine status is unknown. - Social history:: Smoking status: Patient reports the use of cigarette tobacco products, smokes one pack cigarettes per day. Vital Signs: 13:50 BP 118 / 66; Pulse 82; Resp 17; Temp 97.9; Pulse Ox 99% ; Weight 74.84 kg; Height 5 ft. ll1 3 in. (160.02 cm); Pain 9/10; 13:50 Body Mass Index 29.23 (74.84 kg, 160.02 cm) ll1 MDM: 16:25 ED course: Patient left the ed prior to provider evaluation. mirtha Administered Medications: No medications were administered Disposition Summary: 07/24/21 16:24 Eloped Disposition: before being seen by provider ss Reason: feeling better ss Addendum: 07/28/2021 18:35 Co-signature as Attending Physician, Mark Panchal MD I agree with the assessment and c jenkins plan of care. Signatures: Mark Panchal MD MD cha Mickail, Joel, PA PA jmm Smirch, Shelby, RN RN Ibeth Quinn RN RN ll1 Corrections: (The following items were deleted from the chart) 07/24 13:52 13:51 PMHx: None; ll1 ll1
== END 2021-07-24 16:24 | disposition left against medical advice (07) ==
LOC: ER 13:42
DX: Z53.21 Procedure and treatment not carried out due to patient leaving prior to being seen by health care provider (principal)
CPT/HCPCS: 99281

== ENCOUNTER 2021-07-24 19:47 | Emergency (ER) | payer OTHER ==
--- OUTSIDE RECORDS SUMMARY | 2021-07-24 19:50 | XMS REPORT | Continuity of Care Document ---
:1990 Author Organization [facility] t Address [address] [place] [address] Care Team Providers Name Role Phone UNKNOWN Attending Clinician Unavailable Praveen Lizarraga Attending Clinician Unavailable Physician, No Primary or Family Admitting Clinician Unavaila ble Payers Payer Name Policy Type Policy Number Effective Date Expiration Date S ource $20 G [id number] 2007 00:00:00 Problems This patient has no known problems. Allergies, Adverse Reactions, Alerts Allergy Allergy Status Severity Reaction(s) Onset Inactive Treating Comm ents Source Name Type Date Date Clinician [place] DA Active [place] RASH 2020-04 [facility] ins 04-22 [place] 00:00: [address] [place] DA Active SV [facility] 6-11 [place] 00:00: [address] Medications This patient has no known medications. Procedures This patient has no known procedures. Encounters Start End Encounter Admission Attending Care Care Encounter Source Date/Time Date/Time Type Type Clinicians Facility Department ID 2021-07-09 Outpatient [facility] [id number] [place] 00:38:59 [facility] 2021-02-20 2021-02-20 Outpatient UNKNOWN [facility]ANW REF [id number] [facility] 13:22:00 13:22:00 [id number] [facility] are [facility] 2021-02-20 2021-02-20 Emergency EM Crismon, HCACR ESTRELLITA [id number] [facility] 07:08:00 10:32:00 Christopher [id number] [facility] 2021-02-20 2021-02-20 Emergency EM Crismon, HCACR H[facility] [id number] [facility] 07:08:00 10:32:00 Christopher 24 [facility] Results Test Description Test Time Test Comments Results Result [facility] e Comments - US TRANSVAGINAL 2021-02-20 NON [facility]:32:00 [facility] 1990 Sex: F * Patient Name: PETROS LIZ Unit No: [id number] EXAMS: CPT CODE: [id number] [place] [address] C3 TIME OF STUDY: 02/20/2021 REASON FOR [...] Sophy Stevenson Trnscrbd D/ (0932) t.SDR.SI1 Probe: [id number] Orig Print D/T: S: 02/20/2021 (0935) Probe: ELISABETH Cavanaugh NAME: PETROS LIZ [address] [place] [address] PHYS: Indira [place], [place] [address] : 1990 AGE: 30 SEX: F LOC: B.ERS PHONE #: [phone] EXAM DATE: 02/20/2021 STATUS: REG ER FAX #: [phone] RAD NO: Page 1 Signed Report LACTIC ACID 2021-02-20 09:17:00 Test Item Value Reference Range Interpretation Comme nts LACTIC ACID (test code = LACT) 2.1 mmol/L 0.4-2.0 H ON 02/20/21 AT 0917, B.LAB.EJK CALLED TO JASSON HUNTER. The report was conf irmed by read back protocols Y,N: YES. Critical values after th e first occurrence are excluded. - CT ABD PELVIS [id number] 08:35:00 [facility] : 1990 Sex: F Patient Name: PETROS LIZ Unit No: [id number] EXAMS: CPT CODE: [id number] CT ABD PELVIS W/CONT 03853 EXAM: - CT ABD PELVIS W/CONT LOCATION: [...] cm cystlike lesion in the left ovary. [facility] Mao NAME: PETROS LIZ [address] [place] [address] PHYS: ABBE.Grupo - Indira [place], [place] [address] : 1990 AGE: 30 SEX: F LOC: MarisabelPrimitivoCLARISSE PHONE #: [phone] EXAM DATE: 02/20/2021 STATUS: REG ER FAX #: [phone] RAD #: D/C DT PAGE 1 Signed Report (CONTINUED) Patient Name: PETROS LIZ Unit No: [id number] EXAMS: CPT CODE: [id number] CT ABD PELVIS W/CONT 28757 <Continued> No evidence of obstructive uropathy. at 0835 Reported and signed by: Adelso Adler MD CC: Indira MARIE Dictated Date/Time: 02/20/2021 (0835) Technologist: Orlando Burgos CTDI: 9.22 DLP: 492.32 Trnscrpt: 02/20/2021 (0835) [email or web address] ELISABETH Cavanaugh NAME: [address] PHYS: [place] [address] : 1990 AGE: 30 SEX: FACCT NO: [id number] LOC: B.ERS PHONE #: [phone] EXAM DATE: 02/20/2021 STATUS: REG ER FAX #: [phone] RAD #: D/C DT PAGE 2 Signed Report Patient Name: PETROS LIZ Unit No: [id number] EXAMS: CPT CODE: [id number] CT ABD PELVIS W/CONT 01575 <Continued> Orig Print D/T: S: 02/20/2021 (0839) ELISABETH Cavanaugh NAME: [address] PHYS: [place] [address] : 1990 AGE: 30 SEX: F LOC: B.ERS PHONE #: [phone] EXAM DATE: 02/20/2021 STATUS: REG ER FAX #: [phone] RAD #: D/C DT PAGE 3 Signed [id number] 08:03:00 Test Item Value Reference Range Interpretation Comments LIPASE (test code = LIP) 50 Unit/L 114-286 L BASIC METABOLIC [id number] 08:03:00 Test Item Value Reference Range Interpretation [...] message] (test code = Index/DL The system DimmiNDTumri) generated this result transmit ayde reference range [...] this result as normal/abnormal . HEPATIC FUNCTION [id number] 08:03:00 Test Item Value Reference Range Interpretation [...] 45-117 N code = ALKP) CBC W/O [id number] 07:54:00 Test Item Value Reference Range Interpretation [...] N MPV) UA RFLX MICR CULT IF [id number] 07:51:00 Test Item Value Reference Range Interpretation [...] Suprapubic Pain- XR ELBOW 3 + V [id number] 18:55:00 FAX: Ortega Barrera MD [phone] [place]: [facility]: [facility] FAX: Efren Smith NP [phone] Patient Name: PETROS SYKES Unit No: [id number] EXAMS: CPT CODE: [id number] XR ELBOW 3 + V LT [address] EXAMINATION: - XR FOREARM 2 VIEWS LT, [...] 06/06/2018 (1858) ELISABETH Cavanaugh NAME: PETROS SYKES [address] [place] [address] PHYS: TERE. - Efren Gonzalez [place], [place] [address] : 1990 AGE: 28 SEX: F LOC: B.ERS PHONE #: [phone] EXAM DATE: 06/06/2018 STATUS: REG ER FAX #: [phone] RAD NO: DC Dt: PAGE 1 Signed Report- XR FOREARM 2 VIEWS LT 2018-06-06 18:55:00 FAX: Ortega Barrera MD [phone] [place]: St: REG FAX: Efren Smith NP [phone] Patient Name: PETROS SYKES Unit No: [id number] EXAMS: CPT CODE: [id number] XR FOREARM 2 [place] [address] EXAMINATION: - XR FOREARM 2 VIEWS LT, [...] [email or web address] Orig Print D/T: S: 06/06/2018 (1858) [facility] NAME: PETROS SYKES [address] [place] [address] PHYS: TERE.01 - Efren Gonzalez [place], [place] [address] : 1990 AGE: 28 SEX: F LOC: B.ERS PHONE #: [phone] EXAM DATE: 06/06/2018 STATUS: REG ER FAX #: [phone] RAD NO: DC Dt: PAGE 1 Signed Report- XR HAND 3 + V LT 2018-06-06 18:54:00 FAX: Ortega Barrera MD [phone] [place]: St: REG FAX: Efren Smith NP [phone] Patient Name: PETROS SYKES Unit No: [id number] EXAMS: CPT CODE: [id number] XR HAND 3 + V LT [address] EXAMINATION: - XR WRIST 3 + V [...] 06/06/2018 (1856) ELISABETH Cavanaugh NAME: PETROS SYKES [address] [place] [address] PHYS: TERE. - Efren Gonzalez NP[place], [place] [address] : 1990 AGE: 28 SEX: F LOC: STEPHANIE PHONE #: [phone] EXAM DATE: 06/06/2018 STATUS: REG ER FAX #: [phone] RAD NO: DC Dt: PAGE 1 Signed Report- XR WRIST 3 + V LT 2018-06-06 18:54:00 FAX: Ortega Barrera MD [phone] [place]: E St: REG FAX: Efren Smith NP [phone] Patient Name: PETROS SYKES Unit No: [id number] EXAMS: CPT CODE: [id number] XR WRIST 3 + V LT [address] EXAMINATION: - XR WRIST 3 + V [...] Elise Stark Transcribed Date/Time: 06/06/2018 (1853) By: [email or web address] Orig Print D/T: S: 06/06/2018 (1856) [facility] NAME: PETROS SYKES [address] [place] [address] PHYS: - Efren Gonzalez [place], [place] [address] : 1990 AGE: 28 SEX: F LOC: STEPHANIE PHONE #: [phone] EXAM DATE: 06/06/2018 STATUS: REG ER FAX #: [phone] RAD NO: DC Dt: PAGE 1 Signed Report- XR HUMERUS 2 + V LT 2018-06-06 18:51:00 FAX: Ortega Barrera MD [phone] [place]: E St: REG FAX: Efren Smith NP [phone] Patient Name: PETROS SYKES Unit No: [id number] EXAMS: CPT CODE: [id number] XR HUMERUS 2 + [place] [address] EXAMINATION: - XR HUMERUS 2 + V LT. LOCATION: B2. HISTORY: fall. COMPARISON: None. TECHNIQUE: AP and lateral views of the left humerus were obtained. FINDINGS: No acute fracture or dislocation is identified. Soft tissue structures appear within normal limits. IMPRESSION: No acuteosseous abnormality is identified. at 1851 Reported and signed by: Pau Cardenas [facility]: Efren Gonzalez NP Dictated Date/Time: 06/06/2018 (1850)Technologist: Elise Stark Transcribed Date/Time: 06/06/2018 (1850) By: [email or web address] Orig Print D/T: S: 06/06/2018 (1854) ELISABETH Cavanaugh NAME: PETROS SYKES [address] [place] [address] PHYS: TERE. - Efren Gonzalez [place], [place] [address] : 1990 AGE: 28 SEX: F LOC: STEPHANIE PHONE #: [phone] EXAM DATE: 06/06/2018 STATUS: REG ER FAX #: [phone] RAD NO: DC Dt: PAGE 1 Signed Report- XR SHOULDER 2 + V LT 2018-06-06 18:50:00 FAX: Ortega Barrera MD [phone] [place]: E St: REG FAX: Efren Smith NP [phone] Patient Name: PETROS SYKES Unit No: [id number] EXAMS: CPT CODE: [id number] XR SHOULDER 2 + V LT [address] EXAMINATION: - XR SHOULDER 2 + V [...] 06/06/2018 (185) ELISABETH Cavanaugh NAME: PETROS SYKES [address] [place] [address] Bl PHYS: TERE. - Efren Gonzalez NP [place], [place] [address] : 1990 AGE: 28 SEX: F LOC: STEPHANIE PHONE #: [phone] EXAM DATE: 06/06/2018 STATUS: REG ER FAX #: [phone] RAD NO: DC Dt: PAGE 1 Signed Report
[2021-07-24] MEDS ORDERED: MORPHINE 4 MG/ML SYR ONE (22:16)
[2021-07-24] MEDS ORDERED: ONDANSETRON 4 MG (ODT) TAB ONE (22:17)
[2021-07-24] MEDS ORDERED: KETOROLAC 30 MG/ML INJ ONE (22:17)
--- NOTE | 2021-07-24 22:33 | EDPHYS ---
Physician Documentation [facility] Name: Brooke Thomas Age: 31 yrs Sex: Female : 1990 Arrival Date: 07/24/2021 Time: 19:50 Bed 10 Private MD: ED Physician Guille Meza HPI: 07/24 22:00 This 31 yrs old Female presents to ER via Ambulatory with complaints of Dental pain. pm1 22:00 The patient presents with pain, swelling. pm1 22:00 The problem is located in the lower right first molar. pm1 22:00 Onset: The symptoms/episode began/occurred 1 week(s) ago. Duration: The symptoms are pm1 continuous. Modifying factors: The symptoms are alleviated by medication given in the ER yesterday. Severity of symptoms: in the emergency department the symptoms patient feels that the swelling has worsened since yesterday. Patient was seen here yesterday for the same complaint of right jaw swelling and right lower jaw dental pain. Patient was prescribed clindamycin and given a shot of clindamycin yesterday. Due to patient's history of narcotic abuse in the past no pain medications were prescribed during discharge. The patient has been recently seen by a physician: yesterday, with similar presenting complaints, was given a prescription for antibiotics. 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 - Social history:: Smoking status: Patient reports the use of cigarette tobacco products, smokes one pack cigarettes per day. ROS: 22:00 Constitutional: Negative for fever, chills, and weight loss, Cardiovascular: Negative pm1 for chest pain, palpitations, and edema. 22:00 Respiratory: Negative for shortness of breath, cough, wheezing, and pleuritic chest pain, MS/Extremity: Negative for injury and deformity, Skin: Negative for injury, rash, and discoloration. 22:00 Neuro: Negative for headache, weakness, numbness, tingling, and seizure. 22:00 ENT: Positive for dental pain, Negative for sore throat, difficulty swallowing, difficulty handling secretions, hoarseness. 22:00 All other systems are negative. Exam: 22:00 Constitutional: This is a well developed, well nourished patient who is awake, alert, pm1 and in no acute distress. Head/Face: Normocephalic, atraumatic. 22:00 Skin: Warm, dry with normal turgor. Normal color with no rashes, no lesions, and no evidence of cellulitis. MS/ Extremity: Pulses equal, no cyanosis. Neurovascular intact. Full, normal range of motion. 22:00 ENT: Mouth: Lips: normal, moist, Oral mucosa: normal, pink and intact, moist, Dental exam: abscess, is not appreciated, gum swelling, not appreciated, Swelling to right jaw, not worse than presentation yesterday. No redness or erythema present to right jaw, Negative for trismus. 22:00 Neck: Exam negative for acute changes, ROM/movement: no acute changes. 22:00 Cardiovascular: Exam negative for acute changes, Rate: normal, Rhythm: regular, Pulses: no pulse deficits are appreciated. 22:00 Respiratory: Exam negative for acute changes, respiratory distress, shortness of breath. 22:00 Neuro: Exam negative for acute changes, Orientation: is normal, Mentation: is normal, Motor: is normal, moves all fours. Vital Signs: 20:31 BP 123 / 81; Pulse 75; Resp 18; Temp 98(O); Pulse Ox 100% on R/A; Weight 74.84 kg (R); lp1 Height 5 ft. 3 in. (160.02 cm); Pain 8/10; 20:31 Body Mass Index 29.23 (74.84 kg, 160.02 cm) lp1 MDM: 21:52 Patient medically screened. pm1 22:31 Data reviewed: vital signs. Data interpreted: Pulse oximetry: on room air is 100 %. pm1 Interpretation: normal. Counseling: I had a detailed discussion with the patient and/or guardian regarding: the historical points, exam findings, and any diagnostic results supporting the discharge/admit diagnosis, the need for outpatient follow up, for definitive care, a dentist, to return to the emergency department if symptoms worsen or persist or if there are any questions or concerns that arise at home. 23:21 ED course: PMPaware reviewed. pm1 Administered Medications: 22:25 Drug: morphine 4 mg Route: IM; Site: right gluteus; eb1 22:26 Drug: Ondansetron 4 mg Route: PO; eb1 Disposition: 07/25 03:36 Co-signature as Attending Physician, Guille Meza MD. mh7 Disposition Summary: 07/24/21 22:32 Discharge Ordered Location: Home pm1 Problem: new pm1 Symptoms: have improved pm1 Condition: Stable pm1 Diagnosis - Dental pain pm1 Followup: pm1 - With: Emergency Department - When: As needed - Reason: Worsening of condition Followup: pm1 - With: Private Physician - When: 2 - 3 days - Reason: Recheck today's complaints, Continuance of care, Re-evaluation by your physician Discharge Instructions: - Discharge Summary Sheet pm1 - Dental Abscess pm1 - Dental Pain pm1 Forms: - Medication Reconciliation Form pm1 - Thank You Letter pm1 - Antibiotic Education pm1 - Prescription Opioid Use pm1 Prescriptions: - ketorolac 10 mg Oral tablet - take 1 tablet by ORAL route every 6 hours As needed not to exceed 40 mg in pm1 24hrs; 12 tablet; Refills: 0, Product Selection Permitted Signatures: Helen Schafer RN RN lp1 Paul Lopez NP CHICKEN DRESSER pm1 Azul De La Torre RN RN eb1 Guille Meza MD MD mh7 Corrections: (The following items were deleted from the chart) 07/24 20:31 20:30 Home Meds: None; lp1 lp1
--- NOTE | 2021-07-24 22:33 | ER ---
Nurse's Notes [facility] Name: Brooke Thomas Age: 31 yrs Sex: Female : 1990 Arrival Date: 07/24/2021 Time: 19:50 Bed 10 Private MD: Diagnosis: Dental pain Presentation: 07/24 20:29 Chief complaint: Patient states: Pain and worsening swelling to right lower side of lp1 mouth; states bad tooth; "I feel like the swelling is going up to my eye". Coronavirus screen: At this time, the client does not indicate any symptoms associated with coronavirus-19. Ebola Screen: No symptoms or risks identified at this time. Risk Assessment: Do you want to hurt yourself or someone else? Patient reports no desire to harm self or others. Onset of symptoms was July 24, 2021. 20:29 Method Of Arrival: Ambulatory lp1 20:29 Acuity: ILA 4 lp1 20:31 Initial Sepsis Screen: Does the patient meet any 2 criteria? No. Patient's initial lp1 sepsis screen is negative. Does the patient have a suspected source of infection? No. Patient's initial sepsis screen is negative. 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 - Social history:: Smoking status: Patient reports the use of cigarette tobacco products, smokes one pack cigarettes per day. Screenin:02 Abuse screen: Denies threats or abuse. Denies injuries from another. Nutritional eb1 screening: No deficits noted. Tuberculosis screening: No symptoms or risk factors identified. Fall Risk None identified. Assessment: 22:24 Pain: Complains of pain in right cheek and right jaw Pain currently is 8 out of 10 on a eb1 pain scale. Quality of pain is described as aching, pressure, throbbing. 22:24 General: Appears in no apparent distress. uncomfortable, Behavior is calm, cooperative, eb1 appropriate for age. Neuro: No deficits noted. Cardiovascular: No deficits noted. Respiratory: No deficits noted. GI: No deficits noted. No signs and/or symptoms were reported involving the gastrointestinal system. : No deficits noted. No signs and/or symptoms were reported regarding the genitourinary system. EENT: No deficits noted. No signs and/or symptoms were reported regarding the EENT system. Derm: No deficits noted. No signs and/or symptoms reported regarding the dermatologic system. Musculoskeletal: No deficits noted. No signs and/or symptoms reported regarding the musculoskeletal system. 22:45 Reassessment: Patient appears in no apparent distress at this time. No changes from eb1 previously documented assessment. Patient and/or family updated on plan of care and expected duration. Pain level reassessed. Patient is alert, oriented x 3, equal unlabored respirations, skin warm/dry/pink. Patient states symptoms have improved. Vital Signs: 20:31 BP 123 / 81; Pulse 75; Resp 18; Temp 98(O); Pulse Ox 100% on R/A; Weight 74.84 kg (R); lp1 Height 5 ft. 3 in. (160.02 cm); Pain 8/10; 20:31 Body Mass Index 29.23 (74.84 kg, 160.02 cm) lp1 ED Course: 19:50 Patient arrived in ED. kz 20:29 Arm band placed on. lp1 20:30 Triage completed. lp1 21:45 [facility] pm1 21:45 Guille Meza MD is Attending Physician. pm1 23:03 Patient has correct armband on for positive identification. eb1 23:03 No provider procedures requiring assistance completed. eb1 23:03 Patient did not have IV access during this emergency room visit. eb1 Administered Medications: 22:25 Drug: morphine 4 mg Route: IM; Site: right gluteus; eb1 22:26 Drug: Ondansetron 4 mg Route: PO; eb1 Outcome: 22:32 Discharge ordered by . pm1 23:03 Discharged to home ambulatory. eb1 23:03 Condition: stable 23:03 Discharge instructions given to patient, significant other, Instructed on discharge instructions, follow up and referral plans. Demonstrated understanding of instructions, follow-up care. 23:03 Patient left the ED. eb1 Signatures: Helen Schafer RN RN lp1 Paul Lopez NP MEDIA ANALYTICS MANAGER pm1 Azul De La Torre RN RN eb1 Shari Bianchi Corrections: (The following items were deleted from the chart) 20:31 20:30 [place] Meds: None; lp1 lp1
[2021-07-25 02:20] VITALS: BP 123/81; TEMP 98; O2SAT 100
== END 2021-07-24 23:03 | disposition home or self-care (01) ==
LOC: ER 19:47
DX: K08.89 Other specified disorders of teeth and supporting structures (principal); D68.51 Activated protein C resistance; F17.210 Nicotine dependence, cigarettes, uncomplicated; Z88.1 Allergy status to other antibiotic agents
CPT/HCPCS: 96372; 99283

== ENCOUNTER 2021-08-17 17:22 | Emergency (ER) | payer OTHER ==
--- OUTSIDE RECORDS SUMMARY | 2021-08-17 17:25 | XMS REPORT | Continuity of Care Document ---
:1990 Author Organization [facility] t Address [address] [place] [address] Care Team Providers Name Role Phone UNKNOWN Attending Clinician Unavailable Praveen Lizarraga Attending Clinician Unavailable Physician, No Primary or Family Admitting Clinician Unavaila ble Payers Payer Name Policy Type Policy Number Effective Date Expiration Date S ource $20 G [id number] 2007 00:00:00 Problems This patient has no known problems. Allergies, Adverse Reactions, Alerts Allergy Allergy Status Severity Reaction(s) Onset Inactive Treating Comm ents Source Name Type Date Date Clinician [place] Active [place] RASH 2020-04 [facility] ins 04-22 [place] 00:00: [address] [place] DA Active SV [facility] 6-11 [place] 00:00: [address] Medications This patient has no known medications. Procedures This patient has no known procedures. Encounters Start End Encounter Admission Attending Care Care Encounter Source Date/Time Date/Time Type Type Clinicians Facility Department ID 2021-07-09 Outpatient [facility] [id number] [place] 00:38:59 [facility] 2021-02-20 2021-02-20 Outpatient UNKNOWN [facility]ANW REF [id number] [facility] 13:22:00 13:22:00 [id number] [facility] 2021-02-20 2021-02-20 Emergency EM Crismon, [facility]CACR ESTRELLITA [id number] [facility] 07:08:00 10:32:00 [facility] [id number] [facility] 2021-02-20 2021-02-20 Emergency EM Crismon, [facility]CR [facility] [id number] [facility] 07:08:00 10:32:00 [facility] Results Test Description Test Time Test Comments Results Result [facility] e Comments - US TRANSVAGINAL 2021-02-20 NON OB 09:32:00 [facility] : 1990 Sex: F * Patient Name: PETROS LIZ Unit No: [id number] EXAMS: CPT CODE: [id number] [place] [address] C3 TIME OF STUDY: 02/20/2021 REASON FOR [...] Sophy Stevenson Trnscrbd D/ (0932) t.SDR.SI1 Probe: [id number] Orig Print D/T: S: 02/20/2021 (0935) Probe: ELISABETH Cavanaugh NAME: PETROS LIZ [address] [place] [address] PHYS: Indira [place], [place] [address] : 1990 AGE: 30 SEX: F LOC: B.ERS PHONE #: [phone] EXAM DATE: 02/20/2021 STATUS: REG ER FAX #: [phone] RAD NO: Page 1 Signed Report LACTIC ACID 2021-02-20 09:17:00 Test Item Value Reference Range Interpretation Comme nts LACTIC ACID (test code = LACT) 2.1 mmol/L 0.4-2.0 H ON 02/20/21 AT 0917, B.LAB.EJK CALLED TO JASSON HUNTER. The report was conf irmed by read back protocols Y,N: YES. Critical values after th e first occurrence are excluded. - CT ABD PELVIS [id number] 08:35:00 [facility] : 1990 Sex: F Patient Name: PETROS LIZ Unit No: [id number] EXAMS: CPT CODE: [id number] CT ABD PELVIS W/CONT 94028 EXAM: - CT ABD PELVIS W/CONT LOCATION: [...] cm cystlike lesion in the left ovary. [facility] Mao NAME: PETROS LIZ [address] [place] [address] PHYS: ABBE.Grupo - Indira [place], [place] [address] : 1990 AGE: 30 SEX: F LOC: MarisabelPrimitivoCLARISSE PHONE #: [phone] EXAM DATE: 02/20/2021 STATUS: REG ER FAX #: [phone] RAD #: D/C DT PAGE 1 Signed Report (CONTINUED) Patient Name: PETROS LIZ Unit No: [id number] EXAMS: CPT CODE: [id number] CT ABD PELVIS W/CONT 70320 <Continued> No evidence of obstructive uropathy. at 0835 Reported and signed by: Adelso Adler MD CC: Indira MARIE Dictated Date/Time: 02/20/2021 (0835) Technologist: Orlando Burgos CTDI: 9.22 DLP: 492.32 Trnscrpt: 02/20/2021 (0835) [email or web address] ELISABETH Cavanaugh NAME: [address] PHYS: [place] [address] : 1990 AGE: 30 SEX: FACCT NO: [id number] LOC: B.ERS PHONE #: [phone] EXAM DATE: 02/20/2021 STATUS: REG ER FAX #: [phone] RAD #: D/C DT PAGE 2 Signed Report Patient Name: PETROS LIZ Unit No: [id number] EXAMS: CPT CODE: [id number] CT ABD PELVIS W/CONT 54500 <Continued> Orig Print D/T: S: 02/20/2021 (0839) ELISABETH Cavanaugh NAME: [address] PHYS: [place] [address] : 1990 AGE: 30 SEX: F LOC: B.ERS PHONE #: [phone] EXAM DATE: 02/20/2021 STATUS: REG ER FAX #: [phone] RAD #: D/C DT PAGE 3 Signed [id number] 08:03:00 Test Item Value Reference Range Interpretation Comments LIPASE (test code = LIP) 50 Unit/L 114-286 L BASIC METABOLIC [id number] 08:03:00 Test Item Value Reference Range Interpretation [...] message] (test code = Index/DL The system Well.caNDdscout) generated this result transmit ayde reference range [...] this result as normal/abnormal . HEPATIC FUNCTION [id number] 08:03:00 Test Item Value Reference Range Interpretation [...] 45-117 N code = ALKP) CBC W/O [id number] 07:54:00 Test Item Value Reference Range Interpretation [...] N MPV) UA RFLX MICR CULT IF [id number] 07:51:00 Test Item Value Reference Range Interpretation [...] Suprapubic Pain- XR ELBOW 3 + V [id number] 18:55:00 FAX: Ortega Barrera MD [phone] [place]: [facility]: [facility] FAX: Efren Smith NP [phone] Patient Name: PETROS SYKES Unit No: [id number] EXAMS: CPT CODE: [id number] XR ELBOW 3 + [place] LT [address] EXAMINATION: - XR FOREARM 2 VIEWS LT, [...] 06/06/2018 (1858) ELISABETH Cavanaugh NAME: PETROS SYKES [address] [place] [address] PHYS: TERE. - Efren Gonzalez [place], [place] [address] : 1990 AGE: 28 SEX: F LOC: B.ERS PHONE #: [phone] EXAM DATE: 06/06/2018 STATUS: REG ER FAX #: [phone] RAD NO: DC Dt: PAGE 1 Signed Report- XR FOREARM 2 VIEWS LT 2018-06-06 18:55:00 FAX: Ortega Barrera MD [phone] [place]: St: REG FAX: Efren Smith NP [phone] Patient Name: PETROS SYKES Unit No: [id number] EXAMS: CPT CODE: [id number] XR FORE[address] [place] [address] EXAMINATION: - XR FOREARM 2 VIEWS LT, [...] [email or web address] Orig Print D/T: S: 06/06/2018 (1858) [facility] Mao NAME: PETROS SYKES [address] [place] [address] PHYS: TERE.01 - Efren Gonzalez NP, [place] [address] : 1990 AGE: 28 SEX: F LOC: B.ERS PHONE #: [phone] EXAM DATE: 06/06/2018 STATUS: REG ER FAX #: [phone] RAD NO: DC Dt: PAGE 1 Signed Report- XR HAND 3 + V LT 2018-06-06 18:54:00 FAX: Ortega Barrera MD [phone] [place]: St: REG FAX: Efren Smith NP [phone] Patient Name: PETROS SYKES Unit No: [id number] EXAMS: CPT CODE: [id number] XR HAND 3 + [place] [address] EXAMINATION: - XR WRIST 3 + V [...] 06/06/2018 (1856) ELISABETH Cavanaugh NAME: PETROS SYKES [address] [place] [address] PHYS: TERE. - E[place]ren Gonzalez [place], [place] [address] : 1990 AGE: 28 SEX: F LOC: STEPHANIE PHONE #: [phone] EXAM DATE: 06/06/2018 STATUS: REG ER FAX #: [phone] RAD NO: DC Dt: PAGE 1 Signed Report- XR WRIST 3 + V LT 2018-06-06 18:54:00 FAX: Ortega Barrera MD [phone] [place]: E St: REG FAX: Efren Smith NP [phone] Patient Name: PETROS SYKES Unit No: [id number] EXAMS: CPT CODE: [id number] XR WRIST 3 + [place] LT [address] EXAMINATION: - XR WRIST 3 + V [...] [email or web address] Orig Print D/T: S: 06/06/2018 (1856) [facility] NAME: PETROS SYKES [address] [place] [address] PHYS: - Efren Gonzalez [place], [place] [address] : 1990 AGE: 28 SEX: F LOC: STEPHANIE PHONE #: [phone] EXAM DATE: 06/06/2018 STATUS: REG ER FAX #: [phone] RAD NO: DC Dt: PAGE 1 Signed Report- XR HUMERUS 2 + V LT 2018-06-06 18:51:00 FAX: Ortega Barrera MD [phone] [place]: E St: REG FAX: Efren Smith NP [phone] Patient Name: PETROS SYKES Unit No: [id number] EXAMS: CPT CODE: [id number] XR HUMERUS 2 + [place] [address] EXAMINATION: - XR HUMERUS 2 + V LT. LOCATION: B2. HISTORY: fall. COMPARISON: None. TECHNIQUE: AP and lateral views of the left humerus were obtained. FINDINGS: No acute fracture or dislocation is identified. Soft tissue structures appear within normal limits. IMPRESSION: No acuteosseous abnormality is identified. at 1851 Reported and signed by: Pau Cardenas [facility]: Efren Gonzalez NP Dictated Date/Time: 06/06/2018 (1850)Technologist: Elise Stark Transcribed Date/Time: 06/06/2018 (1850) By: [email or web address] Orig Print D/T: S: 06/06/2018 (1854) ELISABETH Cavanaugh NAME: PETROS SYKES [address] [place] [address] PHYS: TERE. - Efren Gonzalez [place], [place] [address] : 1990 AGE: 28 SEX: F LOC: STEPHANIE PHONE #: [phone] EXAM DATE: 06/06/2018 STATUS: REG ER FAX #: [phone] RAD NO: DC Dt: PAGE 1 Signed Report- XR SHOULDER 2 + V LT 2018-06-06 18:50:00 FAX: Ortega Barrera MD [phone] [place]: E St: REG FAX: Efren Smith NP [phone] Patient Name: PETROS SYKES Unit No: [id number] EXAMS: CPT CODE: [id number] XR SHOULDER 2 + V LT [address] EXAMINATION: - XR SHOULDER 2 + V [...] 06/06/2018 (185) ELISABETH Cavanaugh NAME: PETROS SYKES [address] [place] [address] Bl PHYS: TERE. - Efren Gonzalez NP [place], [place] [address] : 1990 AGE: 28 SEX: F LOC: STEPHANIE PHONE #: [phone] EXAM DATE: 06/06/2018 STATUS: REG ER FAX #: [phone] RAD NO: DC Dt: PAGE 1 Signed Report
--- NOTE | 2021-08-17 17:53 | ER ---
Nurse's Notes [facility] Name: Brooke Thomas Age: 31 yrs Sex: Female : 1990 Arrival Date: 08/17/2021 Time: 17:22 Bed 19 Private MD: Diagnosis: Mononeuropathy, unspecified-Ulnar nerve RUE;Acute tendinitis, RUE Presentation: 08/17 17:46 Chief complaint: Patient states: Right arm numbness x 3 days, worse at night. jl7 Coronavirus screen: At this time, the client does not indicate any symptoms associated with coronavirus-19. Ebola Screen: No symptoms or risks identified at this time. Initial Sepsis Screen: Does the patient meet any 2 criteria? No. Patient's initial sepsis screen is negative. Does the patient have a suspected source of infection? No. Patient's initial sepsis screen is negative. Risk Assessment: Do you want to hurt yourself or someone else? Patient reports no desire to harm self or others. Onset of symptoms was August 14, 2021. 17:46 Method Of Arrival: Ambulatory [facility] 17:46 Acuity: ILA 3 jl7 Triage Assessment: 17:48 General: Appears in no apparent distress. uncomfortable, Behavior is calm, cooperative, jl7 appropriate for age. Pain: Complains of pain in right arm Pain currently is 5 out of 10 on a pain scale. at worst was 10 out of 10 on a pain scale. 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 - Social history:: Smoking status: Patient denies any tobacco usage or history of. - Family history:: not pertinent. - Hospitalizations: : No recent hospitalization is reported. Screenin:10 Abuse screen: Denies threats or abuse. Denies injuries from another. Nutritional bp screening: No deficits noted. Tuberculosis screening: No symptoms or risk factors identified. Fall Risk None identified. Assessment: 17:50 General: SEE TRIAGE NOTE. bp 18:10 Reassessment: PT D/C HOME AMBULATORY, DX WITH PERIPHERAL NEUROPATHY. bp Vital Signs: 17:46 BP 124 / 81; Pulse 92; Resp 17; Temp 98.7; Pulse Ox 100% on R/A; Weight 74.84 kg; jl7 Height 5 ft. 3 in. (160.02 cm); Pain 5/10; 17:46 Body Mass Index 29.23 (74.84 kg, 160.02 cm) jl7 ED Course: 17:22 Patient arrived in ED. as 17:27 Rosas Calzada MD is Attending Physician. rn 17:41 Patel Singleton, RN is Primary Nurse. bp 17:48 Triage completed. jl7 17:48 Arm band placed on right wrist. jl7 18:10 Patient has correct armband on for positive identification. Bed in low position. Call bp light in reach. Side rails up X2. 18:10 No provider procedures requiring assistance completed. Patient did not have IV access bp during this emergency room visit. Administered Medications: 17:50 Drug: Decadron (dexamethasone) 10 mg Route: IM; Site: right gluteus; bp 18:12 Follow up: Response: No adverse reaction bp Outcome: 17:52 Discharge ordered by . rn 18:10 Discharged to home ambulatory. bp 18:10 Condition: stable 18:10 Discharge instructions given to patient, Instructed on discharge instructions, follow up and referral plans. medication usage, Demonstrated understanding of instructions, follow-up care, medications, Prescriptions given X 2. 18:14 Patient left the ED. bp Signatures: Oanh Najera as Rosas Calzada MD MD rn Leal, Jahala, RN RN 7 Patel Singleton, MARION RN bp
--- NOTE | 2021-08-17 17:53 | EDPHYS ---
Physician Documentation [facility] Name: Brooke Thomas Age: 31 yrs Sex: Female : 1990 Arrival Date: 08/17/2021 Time: 17:22 Bed 19 Private MD: ED Physician Rosas Calzada HPI: 08/17 17:46 This 31 yrs old Female presents to ER via Unassigned with complaints of Numbness Of Arm.rn 17:46 The patient or guardian complains of pain, that is acute. The complaints affect the rn dorsal aspect of right forearm, right hand and palmar aspect of right forearm. Onset: The symptoms/episode began/occurred 3 day(s) ago. Modifying factors: The symptoms are alleviated by remaining still, the symptoms are aggravated by movement, bending arm. Severity of symptoms: At their worst the symptoms were moderate, in the emergency department the symptoms are unchanged. The patient has not experienced similar symptoms in the past. 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 Has been having right arm pain at the level of the elbow/dorsal forearm and tingling of the fifth and half of the fourth digit of the right hand. Reports worse at night. No crush injury or focal injury. No swelling or fever. No weakness.. 17:48 The patient has not recently seen a physician. 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 - Social history:: Smoking status: Patient denies any tobacco usage or history of. - Family history:: not pertinent. - Hospitalizations: : No recent hospitalization is reported. ROS: 17:48 Constitutional: Negative for fever, chills, and weight loss, Neck: Negative for injury, rn pain, and swelling, MS/Extremity: + pain and tingling to RUE Skin: Negative for injury, rash, and discoloration, Neuro: Negative for headache, weakness, and seizure. Exam: 17:48 Constitutional: This is a well developed, well nourished patient who is awake, alert, rn and in no acute distress. Ambulatory to room without assistance or difficulty Neck: NO midline tenderness, supple, FROM MS/ Extremity: Pulses equal, no cyanosis. Neurovascular intact. Painful rotation and extension of wrist, no focal swelling. No cellulitis. No open wounds. Vital Signs: 17:46 BP 124 / 81; Pulse 92; Resp 17; Temp 98.7; Pulse Ox 100% on R/A; Weight 74.84 kg; jl7 Height 5 ft. 3 in. (160.02 cm); Pain 5/10; 17:46 Body Mass Index 29.23 (74.84 kg, 160.02 cm) jl7 MDM: 17:27 Patient medically screened. rn 17:48 Differential diagnosis: tendonitis, ulnar nerve pain. Data reviewed: vital signs, rn nurses notes, and as a result, I will discharge patient. Counseling: I had a detailed discussion with the patient and/or guardian regarding: the historical points, exam findings, and any diagnostic results supporting the discharge/admit diagnosis, the need for outpatient follow up, to return to the emergency department if symptoms worsen or persist or if there are any questions or concerns that arise at home. Special discussion: I discussed with the patient/guardian in detail that at this point there is no indication for admission to the hospital. It is understood, however, that if the symptoms persist or worsen the patient needs to return immediately for re-evaluation. Based on the history and exam findings, there is no indication for further emergent testing or inpatient evaluation. I discussed with the patient/guardian the need to see the primary care provider for further evaluation of the symptoms. ED course: Will treat as tendonitis and ulnar neuropathy from work/overuse, recommend rest, and will prescribe steroids and muscle relaxers. . Administered Medications: 17:50 Drug: Decadron (dexamethasone) 10 mg Route: IM; Site: right gluteus; bp 18:12 Follow up: Response: No adverse reaction bp Disposition Summary: 08/17/21 17:52 Discharge Ordered Location: Home rn Problem: new rn Symptoms: are unchanged rn Condition: Stable rn Diagnosis - Mononeuropathy, unspecified - Ulnar nerve RUE rn - Acute tendinitis, RUE rn Followup: rn - With: Private Physician - When: As needed - Reason: Recheck today's complaints, Re-evaluation by your physician Discharge Instructions: - Discharge Summary Sheet rn - Neuropathic Pain rn - Tendinitis rn - Peripheral Neuropathy rn Forms: - Medication Reconciliation Form rn - Thank You Letter rn - Antibiotic rn plasma center - Prescription Opioid Use rn Prescriptions: - Cyclobenzaprine 10 mg Oral Tablet - take 1 tablet by ORAL route every 8 hours As needed; 10 tablet; Refills: 0, rn Product Selection Permitted - Medrol (José Miguel) 4 mg Oral Tablets, Dose Pack - take 1 tablet by ORAL route as directed - follow package instructions; 1 rn packet; Refills: 0, Product Selection Permitted Signatures: Rosas Calzada MD MD rn Leal, Jahala, RN RN jl7 Patel Singleton RN RN bp
[2021-08-17] MEDS ORDERED: dexAMETHasone 10 MG/ML VIAL ONE (18:08)
== END 2021-08-17 18:14 | disposition home or self-care (01) ==
LOC: ER 17:22
DX: G56.21 Lesion of ulnar nerve, right upper limb (principal); M77.8 Other enthesopathies, not elsewhere classified; Z88.1 Allergy status to other antibiotic agents
CPT/HCPCS: 96372; 99283; J1100

== ENCOUNTER 2021-08-20 09:24 | Emergency (ER) | payer OTHER ==
--- OUTSIDE RECORDS SUMMARY | 2021-08-20 09:26 | XMS REPORT | Continuity of Care Document ---
:1990 Author Organization [facility] t Address [address] [place] [address] Care Team Providers Name Role Phone UNKNOWN Attending Clinician Unavailable Elham Attending Clinician Unavailable Physician, Primary or Family Admitting Clinician Unavailabl e Payers Payer Name Policy Type Policy Number Effective Date Expiration Date S ource $20 G [id number] 2007 00:00:00 Problems This patient has no known problems. Allergies, Adverse Reactions, Alerts Allergy Allergy Status Severity Reaction(s) Onset Inactive Treating Comm ents Source Name Type Date Date Clinician [place] DA Active [place] RASH 2020-04 [facility] ins 04-22 [place] 00:00: [address] [place] DA Active SV [facility] 09-24 [place] 00:00: [address] Medications This patient has no known medications. Procedures This patient has no known procedures. Encounters Start End Encounter Admission Attending Care Care Encounter Source Date/Time Date/Time Type Type Clinicians Facility Department ID 2021-07-09 Outpatient [facility] [id number] NPI:[id number] 2021-02-20 2021-02-20 Outpatient UNKNOWN HCANW REF [id number] [facility] 13:22:00 13:22:00 [id number] [facility] 2021-02-20 2021-02-20 Emergency EM Crismon, [facility] ESTRELLITA [id number] 1-2 [facility] 07:08:00 10:32:[id number] [facility] 2021-02-20 2021-02-20 Emergency EM Crismon, [facility] H[facility]CR [id number] [facility] 07:08:00 10:32:[address] [facility] Results Test Description Test Time Test Comments Results Result [facility] e Comments - US TRANSVAGINAL 2021-02-20 NON OB 09:32:00 [facility] : 1990 Sex: F * Patient Name: PETROS LIZ Unit No: [id number] EXAMS: CPT CODE: [id number] [place] [address] C3 TIME OF STUDY: 02/20/2021 REASON FOR [...] MARIE Technologist: Sophy Stevenson Trnscrbd D/ (0932) [email or web address] Probe: [id number] Orig Print D/T: S: 02/20/2021 (0935) Probe: ELISABETH Cavanaugh NAME: PETROS LIZ [address] [place] [address] PHYS: Indira [place], [place] [address] : 1990 AGE: 30 SEX: F LOC: B.ERS PHONE #: [phone] EXAM DATE: 02/20/2021 STATUS: REG ER FAX #: [phone] RAD NO: Page 1 Signed Report LACTIC ACID 2021-02-20 09:17:00 Test Item Value Reference Range Interpretation Comme nts LACTIC ACID (test code = LACT) 2.1 mmol/L 0.4-2.0 H ON 02/20/21 AT 0917, B.LAB.EJK CALLED TO JASSON HUNTER. The report was conf irmed by read back protocols Y,N: YES. Critical values after th e first occurrence are excluded. - CT ABD PELVIS [id number] 08:35:00 [facility] SHALONDASADIE BOYKINVALERIY : 1990 Sex: F Patient Name: PETROS LIZ Unit No: [id number] EXAMS: CPT CODE: [id number] CT ABD PELVIS W/CONT 15718 EXAM: - CT ABD PELVIS W/CONT LOCATION: [...] cm cystlike lesion in the left ovary. [facility] Mao NAME: PETROS LIZ [address] [place] [address] PHYS: Indira [place], [place] [address] : 1990 AGE: 30 SEX: F LOC: STEPHANIE PHONE #: [phone] EXAM DATE: 02/20/2021 STATUS: REG ER FAX #: [phone] RAD #: D/C DT PAGE 1 Signed Report (CONTINUED) Patient Name: PETROS LIZ Unit No: [id number] EXAMS: CPT CODE: [id number] CT ABD PELVIS W/CONT 68913 <Continued> No evidence of obstructive uropathy. at 0835 Reported and signed by: Adelso Adler MD CC: Indira MARIE Dictated Date/Time: 02/20/2021 (0835) Technologist: Orlando Burgos CTDI: 9.22 DLP: 492.32 Trnscrpt: 02/20/2021 (0835) [email or web address] ELISABETH Cavanaugh NAME: SHALONDA[address] PHYS: ABBEPrimitivoGr[employer] Wen [place] [address] : 1990 AGE: 30 SEX: FACCT NO: [id number] LOC: B[employer] PHONE #: [phone] EXAM DATE: 02/20/2021 STATUS: REG ER FAX #: [phone] RAD #: D/C DT PAGE 2 Signed Report Patient Name: PETROS LIZ Unit No: [id number] EXAMS: CPT CODE: [id number] CT ABD PELVIS W/CONT 57168 <Continued> Orig Print D/T: S: 02/20/2021 (0839) ELISABETH Cavanaugh NAME: SHALONDA[address] PHYS: VIKTORIYA Carver [place] [address] : 1990 AGE: 30 SEX: F LOC: B.ERS PHONE #: [phone] EXAM DATE: 02/20/2021 STATUS: REG ER FAX #: [phone] RAD #: D/C DT PAGE 3 Signed [id number] 08:03:00 Test Item Value Reference Range Interpretation Comments LIPASE (test code = LIP) 50 Unit/L 114-286 L BASIC METABOLIC [id number] 08:03:00 Test Item Value Reference Range Interpretation [...] message] (test code = Index/DL The system Bocom) generated this result transmit ayde reference range [...] this result as normal/abnormal . HEPATIC FUNCTION [id number] 08:03:00 Test Item Value Reference Range Interpretation [...] 45-117 N code = ALKP) CBC W/O [id number] 07:54:00 Test Item Value Reference Range Interpretation [...] N MPV) UA RFLX MICR CULT IF [id number] 07:51:00 Test Item Value Reference Range Interpretation [...] Suprapubic Pain- XR ELBOW 3 + V [id number] 18:55:00 FAX: Ortega Barrera MD [phone] [place]: E St: REG FAX: Efren Smith NP [phone] Patient Name: PETROS SYKES Unit No: [id number] EXAMS: CPT CODE: [id number] XR ELBOW 3 + [place] [address] EXAMINATION: - XR FOREARM 2 VIEWS LT, [...] By: [email or web address] Orig Print D/T: S: 06/06/2018 (220) ELISABETH Cavanaugh NAME: PETROS SYKES [address] [place] [address] PHYS: TERE. Efren Gonzalez [place], [place] [address] : 1990 AGE: 28 SEX: F LOC: STEPHANIE PHONE #: [phone] EXAM DATE: 06/06/2018 STATUS: REG ER FAX #: [phone] RAD NO: DC Dt: PAGE 1 Signed Report- XR FOREARM 2 VIEWS LT 2018-06-06 18:55:00 FAX: Ortega Barrera MD [phone] [place]: St: REG FAX: Efren Smith NP [phone] Patient Name: PETROS SYKES Unit No: [id number] EXAMS: CPT CODE: [id number] XR FOREARM [address] [place] [address] EXAMINATION: - XR FOREARM 2 VIEWS LT, [...] 06/06/2018 (1858) ELISABETH Cavanaugh NAME: PETROS SYKES [address] [place] [address] PHYS: TERE. - Efren Gonzalez [place], [place] [address] : 1990 AGE: 28 SEX: F LOC: STEPHANIE PHONE #: [phone] EXAM DATE: 06/06/2018 STATUS: REG ER FAX #: [phone] RAD NO: DC Dt: PAGE 1 Signed Report- XR HAND 3 + V LT 2018-06-06 18:54:00 FAX: Ortega Barrera MD [phone] [place]: St: REG FAX: Efren Smith NP [phone] Patient Name: PETROS SYKES Unit No: [id number] EXAMS: CPT CODE: [id number] XR HAND 3 + [place] [address] EXAMINATION: - XR WRIST 3 + V [...] [email or web address] Orig Print D/T: S: 06/06/2018 (1856) [facility] NAME: PETROS SYKES [address] [place] [address] PHYS: TERE. - Efren Gonzalez [place], [place] [address] : 1990 AGE: 28 SEX: F LOC: STEPHANIE PHONE #: [phone] EXAM DATE: 06/06/2018 STATUS: REG ER FAX #: [phone] RAD NO: DC Dt: PAGE 1 Signed Report- XR WRIST 3 + V LT 2018-06-06 18:54:00 FAX: Ortega Barrera MD [phone] [place]: E St: REG FAX: Efren Smith NP [phone] Patient Name: PETROS SYKES Unit No: [id number] EXAMS: CPT CODE: [id number] XR WRIST 3 + [place] LT [address] EXAMINATION: - XR WRIST 3 + V [...] 06/06/2018 (1856) ELISABETH Cavanaugh NAME: PETROS SYKES [address] [place] [address] PHYS: TERE.01 - Efren Gonzalez [place], [place] [address] : 1990 AGE: 28 SEX: F LOC: B.ERS PHONE #: [phone] EXAM DATE: 06/06/2018 STATUS: REG ER FAX #: [phone] RAD NO: DC Dt: PAGE 1 Signed Report- XR HUMERUS 2 + V LT 2018-06-06 18:51:00 FAX: Ortega Barrera MD [phone] [place]: E St: REG FAX: Efren Smith NP [phone] Patient Name: PETROS SYKES Unit No: [id number] EXAMS: CPT CODE: [id number] XR HUMERUS 2 + [place] [address] EXAMINATION: - XR HUMERUS 2 + V LT. LOCATION: B2. HISTORY: fall. COMPARISON: None. TECHNIQUE: AP and lateral views of the left humerus were obtained. FINDINGS: No acute fracture or dislocation is identified. Soft tissue structures appear within normal limits. IMPRESSION: No acuteosseous abnormality is identified. at 1851 Reported and signed by: Pau Cardenas [facility]: Efren Gonzalez NP Dictated Date/Time: 06/06/2018 (1850)Technologist: Elise Stark Transcribed Date/Time: 06/06/2018 (1850) By: [email or web address] Orig Print D/T: S: 06/06/2018 (1854) ELISABETH Cavanaugh NAME: PETROS SYKES [address] [place] [address] PHYS: TERE. - E[place]ren Gonzalez [place], [place] [address] : 1990 AGE: 28 SEX: F LOC: STEPHANIE PHONE #: [phone] EXAM DATE: 06/06/2018 STATUS: REG FAX #: [phone] RAD NO: DC Dt: PAGE 1 Signed Report- XR SHOULDER 2 + V LT 2018-06-06 18:50:00 FAX: Ortega Barrera MD [phone] [place]: E St: REG FAX: Efren Smith NP [phone] Patient Name: PETROS SYKES Unit No: [id number] EXAMS: CPT CODE: [id number] XR SHOULDER 2 + [place] [address] EXAMINATION: - XR SHOULDER 2 + V LT. LOCATION: B2. HISTORY: fall. COMPARISON: None. TECHNIQUE: Internal rotation, external rotation, and scapular Y views of the left shoulder were obtained. FINDINGS: No acute fracture or dislocation is identified. Soft tissue structures appear within normal limits. IMPRESSION: No acute osseous abnormality is identified. at 1850 Reported and signed by: Pau Cardenas MD CC: Efren Gonzalez SAMPLE COORDINATOR Dictated Date/Guillermo e: 06/06/2018 (1849)Technologist: Elise Stark TranscribedDate/Time: 06/06/2018 (1849) By: [email or web address] Orig Print D/T: S: 06/06/2018 (1852) ELISABETH Cavanaugh NAME: PETROS SYKES [address] [place] [address] PHYS: WEIJA. - Efren Gonzalez NP [place], [place] [address] : 1990 AGE: 28 SEX: F LOC: STEPHANIE PHONE #: [phone] EXAM DATE: 06/06/2018 STATUS: REG ER FAX #: [phone] RAD NO: DC Dt: PAGE 1 Signed Report
--- NOTE | 2021-08-20 09:53 | ER ---
Nurse's Notes [facility] Name: Brooke Thomas Age: 31 yrs Sex: Female : 1990 Arrival Date: 08/20/2021 Time: 09:26 Bed Waiting Private MD: Diagnosis: Periapical abscess without sinus Presentation: 08/20 09:38 Chief complaint: Patient states: R low jaw pain and swelling that began this morning. ss Pt reports she has a "bad tooth.". Coronavirus screen: Client denies travel out of the [place] in the last 14 days. Ebola Screen: Patient denies exposure to infectious person. Patient denies travel to an Ebola-affected area in the 21 days before illness onset. Initial Sepsis Screen: Does the patient meet any 2 criteria? No. Patient's initial sepsis screen is negative. Does the patient have a suspected source of infection? Yes: Other: possible dental. Risk Assessment: Do you want to hurt yourself or someone else? Patient reports no desire to harm self or others. Onset of symptoms was August 20, 2021. 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 - Social history:: Smoking status: Patient reports the use of cigarette tobacco products, smokes one-half pack cigarettes per day. Screenin:45 Abuse screen: Denies threats or abuse. Denies injuries from another. Nutritional ss screening: No deficits noted. Tuberculosis screening: Never had TB. Fall Risk None identified. Assessment: 09:45 General: Appears in no apparent distress. comfortable, Behavior is calm, cooperative, ss Denies fever, feeling ill, fatigue, chills. Pain: Complains of pain in right jaw Pain currently is 8 out of 10 on a pain scale. Quality of pain is described as aching. Neuro: Level of Consciousness is awake, alert, obeys commands, Oriented to person, place, time, situation. Cardiovascular: Capillary refill < 3 seconds is brisk in bilateral fingers Patient's skin is warm and dry. Respiratory: Airway is patent Respiratory effort is even, unlabored, Respiratory pattern is regular, symmetrical. GI: No signs and/or symptoms were reported involving the gastrointestinal system. EENT: Nares are clear. EENT: Good dentition noted. Derm: Skin is intact, is healthy with good turgor, Skin is dry, Skin is pink, warm \\T\\ dry. normal. 10:05 Reassessment: Patient appears in no apparent distress at this time. Patient and/or ss family updated on plan of care and expected duration. Pain level reassessed. Patient is alert, oriented x 3, equal unlabored respirations, skin warm/dry/pink. Vital Signs: 09:37 BP 115 / 70; Pulse 80; Resp 16; Temp 98.6(O); Pulse Ox 100% on R/A; Weight 74.84 kg mb7 (R); Height 5 ft. 3 in. (160.02 cm) (R); 09:37 Body Mass Index 29.23 (74.84 kg, 160.02 cm) mb7 ED Course: 09:26 Patient arrived in ED. mr 09:39 Triage completed. ss 09:39 Arm band placed on left wrist. ss 09:42 Paul Lopez NP is PHCP. pm1 09:42 Mark Panchal MD is Attending Physician. pm1 09:45 Patient has correct armband on for positive identification. Bed in low position. Call ss light in reach. 10:04 Elissa Jessica, MARION is Primary Nurse. ss 10:04 No provider procedures requiring assistance completed. Patient did not have IV access ss during this emergency room visit. Administered Medications: 09:59 Not Given (Unavailable, on backorder according to pharmacy. FELISA Miller notifiedd): Clindamycin 600 mg IM once Outcome: 09:52 Discharge ordered by . pm1 10:04 Discharged to home ambulatory. ss 10:04 Condition: good 10:04 Discharge instructions given to patient, Instructed on discharge instructions, follow up and referral plans. medication usage, Demonstrated understanding of instructions, follow-up care, medications, Prescriptions given X 1. 10:05 Patient left the ED. Signatures: Jodi Anders mr Elissa Jessica RN RN Paul Lopez NP SCRAP BREAKER pm1 Ravindra Spangler Mary 7 Corrections: (The following items were deleted from the chart) 09:37 09:32 BP 115 / 70; Pulse 80bpm; Resp 16bpm; Pulse Ox 100% RA; Temp 98.6F Oral; 74.84 kg oe Reported; Height 5 ft. 3 in. Reported; BMI: 29.2; oe
--- NOTE | 2021-08-20 09:53 | EDPHYS ---
Physician Documentation [facility] Name: Brooke Thomas Age: 31 yrs Sex: Female : 1990 Arrival Date: 08/20/2021 Time: 09:26 Bed Waiting Private MD: BLAISE Physician Mark Panchal HPI: 08/20 09:52 This 31 yrs old Female presents to ER via Ambulatory with complaints of Mouth Swelling. pm1 09:52 The patient presents with swelling. The problem is located in the right jaw. Onset: The pm1 symptoms/episode began/occurred yesterday. Modifying factors: The symptoms are alleviated by nothing, the symptoms are aggravated by nothing. Associated signs and symptoms: Pertinent negatives: fever, inability to eat. Severity of symptoms: in the emergency department the symptoms are unchanged. The patient has not experienced similar symptoms in the past. The patient has not recently seen a physician. Patient with multiple similar issue in the past with the same tooth. Seen here 1 month ago for the same issues and was prescribed abx therapy and pain medication. Patient followed up with dentist and was quoted $5000 for the dental work. Patient cant afford the treatment. 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 - Social history:: Smoking status: Patient reports the use of cigarette tobacco products, smokes one-half pack cigarettes per day. ROS: 09:52 Constitutional: Negative for fever, chills, and weight loss. pm1 09:52 Neck: Negative for injury, pain, and swelling, Cardiovascular: Negative for chest pain, palpitations, and edema, Respiratory: Negative for shortness of breath, cough, wheezing, and pleuritic chest pain, Skin: Negative for injury, rash, and discoloration, Neuro: Negative for headache, weakness, numbness, tingling, and seizure. 09:52 ENT: Positive for dental pain, Negative for ear pain, sore throat, difficulty swallowing, difficulty handling secretions, hoarseness. 09:52 All other systems are negative. Exam: 09:52 Constitutional: This is a well developed, well nourished patient who is awake, alert, pm1 and in no acute distress. 09:52 Head/Face: Normocephalic, atraumatic. 09:52 Skin: Warm, dry with normal turgor. Normal color with no rashes, no lesions, and no evidence of cellulitis. MS/ Extremity: Pulses equal, no cyanosis. Neurovascular intact. Full, normal range of motion. 09:52 Eyes: Exam is negative for acute changes, Periorbital structures: appear normal, Extraocular movements: no acute changes, Conjunctiva: no acute changes, no injection. 09:52 ENT: External ear(s): no acute changes, Mouth: Lips: normal, moist, Oral mucosa: normal, pink and intact, moist, Gums: normal with healthy appearance, Dental exam: dental caries, that is moderate, specifically in the lower right first molar (#30), missing teeth, diffusely, negative for trismus. 09:52 Neck: Exam negative for acute changes, External neck: is normal, ROM/movement: no acute changes. 09:52 Cardiovascular: Exam negative for acute changes, Rate: normal, Rhythm: regular, Pulses: no pulse deficits are appreciated. 09:52 Respiratory: Exam negative for acute changes, respiratory distress, shortness of breath. 09:52 Neuro: Exam negative for acute changes, Orientation: is normal, Mentation: is normal, Motor: moves all fours. Vital Signs: 09:37 BP 115 / 70; Pulse 80; Resp 16; Temp 98.6(O); Pulse Ox 100% on R/A; Weight 74.84 kg mb7 (R); Height 5 ft. 3 in. (160.02 cm) (R); 09:37 Body Mass Index 29.23 (74.84 kg, 160.02 cm) mb7 MDM: 09:50 Data reviewed: vital signs. Data interpreted: Pulse oximetry: on room air is 100 %. pm1 Interpretation: normal. Counseling: I had a detailed discussion with the patient and/or guardian regarding: the historical points, exam findings, and any diagnostic results supporting the discharge/admit diagnosis, the need for outpatient follow up, to return to the emergency department if symptoms worsen or persist or if there are any questions or concerns that arise at home. 09:52 Patient medically screened. pm1 Administered Medications: 09:59 Not Given (Unavailable, on backorder according to pharmacy. FELISA Miller notifiedd): ss Clindamycin 600 mg IM once Disposition Summary: 08/20/21 09:52 Discharge Ordered Location: Home pm1 Problem: new pm1 Symptoms: have improved pm1 Condition: Stable pm1 Diagnosis - Periapical abscess without sinus pm1 Followup: pm1 - With: Emergency Department - When: As needed - Reason: Worsening of condition Followup: pm1 - With: Private Physician - When: 2 - 3 days - Reason: Recheck today's complaints, Continuance of care, Re-evaluation by your physician Discharge Instructions: - Discharge Summary Sheet pm1 - Dental Abscess pm1 - Dental Pain pm1 - Diet and Dental Disease pm1 Forms: - Medication Reconciliation Form pm1 - Thank You Letter pm1 - Antibiotic Education pm1 - Prescription Opioid Use pm1 Prescriptions: - Clindamycin HCl 300 mg Oral Capsule - take 1 capsule by ORAL route every 6 hours for 10 days; 40 capsule; Refills: 0, pm1 Product Selection Permitted Signatures: Elissa Jessica RN RN Paul Flower NP MATTRESS PACKER pm1
[2021-08-20 10:17] VITALS: BP 115/70; TEMP 98.6; O2SAT 100
== END 2021-08-20 10:05 | disposition home or self-care (01) ==
LOC: ER 09:24
DX: K04.7 Periapical abscess without sinus (principal); F17.210 Nicotine dependence, cigarettes, uncomplicated; Z88.1 Allergy status to other antibiotic agents
CPT/HCPCS: 99282

== ENCOUNTER 2021-11-09 10:33 | Emergency (ER) | payer OTHER ==
[2021-11-09 11:21] LABS: Urine Blood Negative (Negative); Urine Glucose Negative (Negative); Urine Protein Negative (Negative); Urine Specific Gravity >=1.030 (1.005-1.030)
[2021-11-09 11:47] LABS: Urine Bacteria <20 /HPF (<20); Urine RBC <5 /HPF (None Seen)
--- NOTE | 2021-11-09 13:14 | ER ---
Nurse's Notes [facility] Name: Brooke Thomas Age: 31 yrs Sex: Female : 1990 Arrival Date: 11/09/2021 Time: 10:34 Bed Waiting Private MD: Diagnosis: Acute pharyngitis, unspecified Presentation: 11/09 11:05 Chief complaint: Patient states: Cough, headache, sore throat, low back pain, and iw frequency of urination for past day. Co-worker tested positive for covid. Coronavirus screen: Vaccine status: Patient reports receiving the 2nd dose of the covid vaccine. Ebola Screen: Patient negative for fever greater than or equal to 101.5 degrees Fahrenheit, and additional compatible Ebola Virus Disease symptoms Patient denies exposure to infectious person. Patient denies travel to an Ebola-affected area in the 21 days before illness onset. No symptoms or risks identified at this time. Initial Sepsis Screen: Does the patient meet any 2 criteria? No. Patient's initial sepsis screen is negative. Risk Assessment: Do you want to hurt yourself or someone else? Patient reports no desire to harm self or others. Onset of symptoms was November 09, 2021. 11:05 Method Of Arrival: Ambulatory iw 11:05 Acuity: ILA 4 iw Vital Signs: 11:05 BP 125 / 72; Pulse 84; Resp 14; Temp 98.4; Pulse Ox 99% ; Weight 77.11 kg; Height 5 ft. iw 4 in. (162.56 cm); Pain 0/10; 11:05 Body Mass Index 29.18 (77.11 kg, 162.56 cm) iw ED Course: 10:34 Patient arrived in ED. as 11:07 Triage completed. iw 11:08 Bright Hagan PA is PHCP. jr8 11:08 Mark Panchal MD is Attending Physician. jr8 14:00 Clarisa Toro RN is Primary Nurse. iw Administered Medications: No medications were administered Outcome: 13:13 Discharge ordered by . jr8 14:00 Patient left the ED. iw Signatures: Oanh Najera as Clarisa Toro RN RN iw Bright Hagan PA PA jrJuan Luis
--- NOTE | 2021-11-09 13:14 | EDPHYS ---
Physician Documentation [facility] Name: Brooke Thomas Age: 31 yrs Sex: Female : 1990 Arrival Date: 11/09/2021 Time: 10:34 Bed Waiting Private MD: ED Physician Mark Panchal HPI: 11/09 11:08 This 31 yrs old Female presents to ER via Ambulatory with complaints of r/o covid. jr8 11:08 Onset: The symptoms/episode began/occurred acutely, yesterday. Associated signs and jr8 symptoms: Pertinent positives: cough, headache, sore throat, dysuria. Modifying factors: The patient symptoms are alleviated by nothing, the patient symptoms are aggravated by nothing. The patient has not experienced similar symptoms in the past. The patient has not recently seen a physician. Stated that co-worker tested positive for covid and has been around everyone. Now having symptoms but also low back pain and frequency of urine. ROS: 11:08 Eyes: Negative for injury, pain, redness, and discharge, Neck: Negative for injury, jr8 pain, and swelling, Cardiovascular: Negative for chest pain, palpitations, and edema, Abdomen/GI: Negative for abdominal pain, nausea, vomiting, diarrhea, and constipation, MS/Extremity: Negative for injury and deformity, Skin: Negative for injury, rash, and discoloration. 11:08 ENT: Positive for sore throat. 11:08 Respiratory: Positive for cough, Negative for shortness of breath, sputum production, wheezing. 11:08 Back: Positive for pain at rest, of the low back area. 11:08 : Positive for urinary frequency. 11:08 Neuro: Positive for headache. Exam: 11:08 Constitutional: This is a well developed, well nourished patient who is awake, alert, jr8 and in no acute distress. ENT: Nares patent. No nasal discharge, no septal abnormalities noted. Tympanic membranes are normal and external auditory canals are clear. Oropharynx with no redness, swelling, or masses, exudates, or evidence of obstruction, uvula midline. Mucous membranes moist. Neck: Trachea midline, no thyromegaly or masses palpated, and no cervical lymphadenopathy. Supple, full range of motion without nuchal rigidity, or vertebral point tenderness. No Meningismus. Cardiovascular: Regular rate and rhythm with a normal S1 and S2. No gallops, murmurs, or rubs. Normal PMI, no JVD. No pulse deficits. Respiratory: Lungs have equal breath sounds bilaterally, clear to auscultation and percussion. No rales, rhonchi or wheezes noted. No increased work of breathing, no retractions or nasal flaring. Abdomen/GI: Soft, non-tender, with normal bowel sounds. No distension or tympany. No guarding or rebound. No evidence of tenderness throughout. Back: No spinal tenderness. No costovertebral tenderness. Full range of motion. Skin: Warm, dry with normal turgor. Normal color with no rashes, no lesions, and no evidence of cellulitis. MS/ Extremity: Pulses equal, no cyanosis. Neurovascular intact. Full, normal range of motion. Neuro: Awake and alert, GCS 15, oriented to person, place, time, and situation. Cranial nerves II-XII grossly intact. Motor strength 5/5 in all extremities. Sensory grossly intact. Cerebellar exam normal. Normal gait. Vital Signs: 11:05 BP 125 / 72; Pulse 84; Resp 14; Temp 98.4; Pulse Ox 99% ; Weight 77.11 kg; Height 5 ft. iw 4 in. (162.56 cm); Pain 0/10; 11:05 Body Mass Index 29.18 (77.11 kg, 162.56 cm) iw MDM: 11:09 Patient medically screened. [facility] 13:13 Data reviewed: vital signs, nurses notes, lab test result(s). Data interpreted: Pulse jr8 oximetry: on room air is 99 %. Interpretation: normal. Counseling: I had a detailed discussion with the patient and/or guardian regarding: the historical points, exam findings, and any diagnostic results supporting the discharge/admit diagnosis, lab results, the need for outpatient follow up, a family practitioner, to return to the emergency department if symptoms worsen or persist or if there are any questions or concerns that arise at home. 11/09 11:05 Order name: SARS-COV-2 RT PCR (Document "Date of Onset" if Symptomatic); Complete Time: iw 13:13 11/09 11:05 Order name: Urine Microscopic Only; Complete Time: 11:48 iw 11/09 11:05 Order name: Urine Dipstick-Ancillary (obtain specimen); Complete Time: 12:08 iw 11/09 11:21 Order name: Urine Dipstick-Ancillary; Complete Time: 11:39 [facility] 11/09 11:51 Order name: Urine Culture [facility] 11/09 11:05 Order name: Urine Test (obtain specimen); Complete Time: 12:08 Administered Medications: No medications were administered Disposition Summary: 11/09/21 13:13 Discharge Ordered Location: Home jr8 Problem: new jr8 Symptoms: have improved jr8 Condition: Stable jr8 Diagnosis - Acute pharyngitis, unspecified jr8 Followup: jr8 - With: Private Physician - When: 2 - 3 days - Reason: Recheck today's complaints, Continuance of care, Re-evaluation by your physician Discharge Instructions: - Discharge Summary Sheet jr8 - Pharyngitis jr8 Forms: - Medication Reconciliation Form jr8 - Work release form bd - Thank You Letter jr8 - Antibiotic Education jr8 - Prescription Opioid Use jr8 Prescriptions: - Tessalon Perles 100 mg Oral Capsule - take 1 capsule by ORAL route every 8 hours As needed; 15 capsule; Refills: 0, jr8 Product Selection Permitted - Medrol (José Miguel) 4 mg Oral Tablets, Dose Pack - take 1 tablet by ORAL route as directed - follow package instructions; 1 jr8 packet; Refills: 0, Product Selection Permitted Signatures: Dispatcher [employer] Clarisa Padilla RN RN Bright Hagan PA PA jr8
[2021-11-09 16:48] VITALS: BP 125/72; TEMP 98.4; O2SAT 99
== END 2021-11-09 14:00 | disposition home or self-care (01) ==
LOC: ER 10:33
DX: J02.9 Acute pharyngitis, unspecified (principal); R05.9 Cough, unspecified; R35.0 Frequency of micturition; M54.50 Low back pain, unspecified; Z20.822 Contact with and (suspected) exposure to COVID-19
CPT/HCPCS: 87088; 87086; 99281; U0003; 81003; 81015

== ENCOUNTER 2021-11-11 02:15 | Emergency (ER) | payer OTHER ==
--- NOTE | 2021-11-11 02:45 | EDPHYS ---
Physician Documentation [facility] Name: Brooke Thomas Age: 31 yrs Sex: Female : 1990 Arrival Date: 11/11/2021 Time: 02:18 Bed 6 Private MD: ED Physician Rosas Calzada HPI: 11/11 02:40 This 31 yrs old Female presents to ER via Ambulatory with complaints of ran out of rn suboxone. 02:40 Pt reports taking Suboxone for 3 years now, ran out 1 week ago. 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 Reports nausea, diarrhea, muscle cramps. Feels like is withdrawing. . Onset: The symptoms/episode began/occurred 3 day(s) ago. Severity of symptoms: At their worst the symptoms were moderate in the emergency department the symptoms are unchanged. The patient has experienced similar episodes in the past. The patient has not recently seen a physician. 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 - Social history:: Smoking status: Patient reports the use of cigarette tobacco products. - Family history:: not pertinent. - Hospitalizations: : No recent hospitalization is reported. ROS: 02:40 Constitutional: Negative for fever, chills, and weight loss, Eyes: Negative for injury, rn pain, redness, and discharge, Neck: Negative for injury, pain, and swelling, Cardiovascular: Negative for chest pain, palpitations, and edema, Respiratory: Negative for shortness of breath, cough, wheezing, and pleuritic chest pain, Abdomen/GI: Negative for abdominal pain, vomiting, and constipation, Back: Negative for injury and pain, MS/Extremity: Negative for injury and deformity, Skin: Negative for injury, rash, and discoloration, Neuro: Negative for headache, numbness, tingling, and seizure. Exam: 02:40 Constitutional: This is a well developed, well nourished patient who is awake, alert, rn and in no acute distress. Ambulatory to room without difficulty or assistance. Head/Face: Normocephalic, atraumatic. Eyes: Periorbital areas with no swelling, redness, or edema. ENT: MMM, no stridor Cardiovascular: Regular rate and rhythm. No pulse deficits. Respiratory: No increased work of breathing, no retractions or nasal flaring. Skin: Warm, dry MS/ Extremity: Pulses equal, no cyanosis. Neuro: Awake and alert, GCS 15 Vital Signs: 02:33 BP 137 / 87; Pulse 92; Resp 18; Temp 97.2; Pulse Ox 100% ; Weight 77.11 kg; Height 5 tw5 ft. 4 in. (162.56 cm); Pain 5/10; 02:40 BP 129 / 81; Pulse 77; Resp 16; Temp 98.4(O); Pulse Ox 100% on R/A; kl 02:33 Body Mass Index 29.18 (77.11 kg, 162.56 cm) tw5 MDM: 02:24 Patient medically screened. rn 02:40 Differential Diagnosis opiate withdrawal. Data reviewed: vital signs, nurses notes, old rn medical records, and as a result, I will discharge patient. Counseling: I had a detailed discussion with the patient and/or guardian regarding: the historical points, exam findings, and any diagnostic results supporting the discharge/admit diagnosis, the need for outpatient follow up, to return to the emergency department if symptoms worsen or persist or if there are any questions or concerns that arise at home. Special discussion: I discussed with the patient/guardian in detail that at this point there is no indication for admission to the hospital. It is understood, however, that if the symptoms persist or worsen the patient needs to return immediately for re-evaluation. ED course: No suboxone in hospital pyxis. Will give oral benadryl and hydrocodone as has appt in AM with her doctor, just wants to sleep. no ride so no IV meds ordered. . Administered Medications: 02:58 Drug: Benadryl (diphenhydrAMINE) 50 mg Route: PO; kl 02:58 Drug: HYDROcodone-acetaminophen 10 mg-325 mg 1 tabs Route: PO; kl Disposition Summary: 11/11/21 02:44 Discharge Ordered Location: Home rn Problem: new rn Symptoms: have improved rn Condition: Stable rn Diagnosis - Opioid dependence with withdrawal rn Followup: rn - With: Private Physician - When: As needed - Reason: Recheck today's complaints, Re-evaluation by your physician Discharge Instructions: - Discharge Summary Sheet rn - Opioid Withdrawal rn - Opioid Withdrawal Treatment rn Forms: - Medication Reconciliation Form rn - Thank You Letter rn - Antibiotic representative government relations - Prescription Opioid Use rn Signatures: Concha Quinn, Rosas Vizcaino RN, MD MD rn Wood, Tiffany tw5
--- NOTE | 2021-11-11 02:45 | ER ---
Nurse's Notes [facility] Name: Brooke Thomas Age: 31 yrs Sex: Female : 1990 Arrival Date: 11/11/2021 Time: 02:18 Bed 6 Private MD: Diagnosis: Opioid dependence with withdrawal Presentation: 11/11 02:33 Chief complaint: Patient states: "I ran out of Suboxone about a week ago, I started tw5 feeling withdraw symptoms three days ago. I cannot sleep and my legs feel really restless.". Coronavirus screen: Vaccine status: Patient reports receiving the 2nd dose of the covid vaccine. Moderna. Ebola Screen: Patient negative for fever greater than or equal to 101.5 degrees Fahrenheit, and additional compatible Ebola Virus Disease symptoms Patient denies exposure to infectious person. Patient denies travel to an Ebola-affected area in the 21 days before illness onset. Initial Sepsis Screen: Does the patient meet any 2 criteria? No. Patient's initial sepsis screen is negative. Does the patient have a suspected source of infection? No. Patient's initial sepsis screen is negative. Risk Assessment: Do you want to hurt yourself or someone else? Patient reports no desire to harm self or others. Onset of symptoms was November 09, 2021. 02:33 Method Of Arrival: Ambulatory tw5 02:33 Acuity: ILA 3 tw5 Triage Assessment: 02:35 General: Appears in no apparent distress. Behavior is anxious. Pain: Pain currently is tw5 5 out of 10 on a pain scale. 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 - Social history:: Smoking status: Patient reports the use of cigarette tobacco products. - Family history:: not pertinent. - Hospitalizations: : No recent hospitalization is reported. Screenin:40 Abuse screen: Denies threats or abuse. Nutritional screening: No deficits noted. kl Tuberculosis screening: No symptoms or risk factors identified. Fall Risk None identified. Assessment: 02:38 General: Appears distressed, Behavior is anxious. Pain: Complains of pain in bilateral kl legs. Neuro: Goldberg Agitation-Sedation Scale (RASS): +1 Restless Level of Consciousness is awake, alert, Oriented to person, place, time, situation. Cardiovascular: No deficits noted. Respiratory: No deficits noted. Airway is patent Trachea midline Respiratory effort is even, unlabored. GI: No deficits noted. No signs and/or symptoms were reported involving the gastrointestinal system. : No deficits noted. No signs and/or symptoms were reported regarding the genitourinary system. EENT: No deficits noted. No signs and/or symptoms were reported regarding the EENT system. Derm: No deficits noted. No signs and/or symptoms reported regarding the dermatologic system. Musculoskeletal: Parent/caregiver report the patient having pain in legs reports restless feeling in legs difficulty sleeping x 2 days. Vital Signs: 02:33 BP 137 / 87; Pulse 92; Resp 18; Temp 97.2; Pulse Ox 100% ; Weight 77.11 kg; Height 5 tw5 ft. 4 in. (162.56 cm); Pain 5/10; 02:40 BP 129 / 81; Pulse 77; Resp 16; Temp 98.4(O); Pulse Ox 100% on R/A; kl 02:33 Body Mass Index 29.18 (77.11 kg, 162.56 cm) tw5 ED Course: 02:18 Patient arrived in ED. bp1 02:24 Rosas Calzada MD is Attending Physician. rn 02:35 Triage completed. tw5 02:35 Arm band placed on. tw5 02:59 Patient has correct armband on for positive identification. kl 02:59 No provider procedures requiring assistance completed. Patient did not have IV access kl during this emergency room visit. Administered Medications: 02:58 Drug: Benadryl (diphenhydrAMINE) 50 mg Route: PO; kl 02:58 Drug: HYDROcodone-acetaminophen 10 mg-325 mg 1 tabs Route: PO; kl Medication: 02:59 VIS not applicable for this client. kl Outcome: 02:44 Discharge ordered by . rn 02:59 Discharged to home ambulatory. kl 02:59 Condition: good 02:59 Discharge instructions given to patient, Instructed on discharge instructions, follow up and referral plans. Demonstrated understanding of instructions, follow-up care. 02:59 Patient left the ED. kl Signatures: Kai, ConchaMARION honeycutt RN, Roman, MD MD rn [place]ia[place], Brittany bp1 Wood, Tiffany tw5
[2021-11-11] MEDS ORDERED: DIPHENHYDRAMINE 25 MG TAB/CAP ONE (03:02)
[2021-11-11] MEDS ORDERED: HYDROCODONE/APAP 10/325 TAB ONE (03:03)
[2021-11-11 05:52] VITALS: O2SAT 100
[2021-11-11 06:01] VITALS: BP 129/81; TEMP 98.4
== END 2021-11-11 02:59 | disposition home or self-care (01) ==
LOC: ER 02:15
DX: F11.23 Opioid dependence with withdrawal (principal); Z72.0 Tobacco use; Z88.1 Allergy status to other antibiotic agents
CPT/HCPCS: 99283

== ENCOUNTER 2022-02-08 10:28 | Emergency (ER) | payer OTHER ==
--- OUTSIDE RECORDS SUMMARY | 2022-02-08 10:40 | XMS REPORT | Continuity of Care Document ---
:1990 Author Organization [facility] t Address [address] [place] [address] Care Team Providers Name Role Phone REMYGILMAR TOMMY Freeman Primary Care Physician Unavailable AMENA BETANCOURT Attending Clinician Unavailable AMENA BETANCOURT Attending Clinician Unavailable JARETH OLMEDO Attending Clinician Unavailable Jareth Olmedo MD Attending Clinician 2, [facility] Attending Clinician Unavailable Doctor Unassigned, [place] Attending Clinician Unavailable Lab, Ang - Db Attending Clinician Unavailable Quinten Kline MD Attending Clinician KAMERON DANIELS Attending Clinician Unavailable Kameron Daniels MD Attending Clinician UNKNOWN Attending Clinician Unavailable Praveen Lizarraga Attending Clinician Unavailable KAMERON DANIELS Admitting Clinician Unavailable Physician, No Primary or Family Admitting Clinician Unavaila ble Payers Payer Name Policy Type Policy Number Effective Date Expiration Date S ource $20 G [id number] 2007 00:00:00 [facility] [id number] 2021 CHOICE 00:00:00 Problems Condition Condition Condition Status Onset Resolution Last Treating Co mments Source Name Details Category Date Date Treatment Clinician Date 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 Medical lesion lesion Branch (HGSIL), (HGSIL), grade 2 grade 2 STEFAN, on STEFAN, on biopsy of biopsy of cervix cervix Pain Pain Disease Active 2021-04 Univers pelvic pelvic 0-13 ity of 00:: [place] [facility] S/P LEEP S/P LEEP Disease Active 2021-04 Unive rs 0-13 ity of 00:00: [place] [facility] BMI BMI Disease Active Univers 30.0-30.9, 30.0-30.9, 8-10 it y of adult adult 00:00: [place] [facility] Screening Screening Disease Active Uni vers examinatio examinatio 7-30 it y of n for STD n for STD 00[place] ([place]ually (sexually 00 Medi senait transmitte transmitte Br anch d disease) d disease) Late Late Disease Active Univers menses menses 7-30 ity of 00:00: [place] [facility] BMI BMI Disease Active Univers 27.0-27.9, 27.0-27.9, 7-30 it y of adult adult 00:00: [place] [facility] Well woman Well woman Disease Active U nivers exam with exam with 11-22 ity of routine routine 00:00: [place] gynecologi gynecologi 00 Me dical senait exam senait exam Branch Tobacco Tobacco Disease Active Univers use use 8- ity of disorder disorder 00:00: [place] [facility] Allergies, Adverse Reactions, Alerts Allergy Allergy Status Severity Reaction(s) Onset Inactive Treating Comm ents Source Name Type Date Date Clinician Amoxicil Propensi Active Itching Unive rs jalen ty to 7-05 ity of adverse 00:00: [place] reaction 00 Medical s Branch AMOXICIL DRUG Active ITCHING Univers JALEN INGREDI 7-05 ity of 00:00: [place] 00 [facility] [place] [facility] Penicill DA Active MO RASH 2020-04 [facility] ins 1-07 [place] [facility] C[place] DA Active SV 2017-0 [facility] 6-11 [place] 00:00: [facility] Social History Social Habit Start Date Stop Date Quantity Comments Source History of tobacco Cigarette Smoker University of use [facility] Alcohol intake 2022-01-26 2022-01-26 Lifetime University of 00:00:00 00:00:00 non-drinker [facility] (finding) Branch Exposure to 2022-01-14 2022-01-24 Not sure University SARS-CoV-2 (event) 00:00:00 14:23:00 [facility] Cigarettes smoked 2021-10-27 2021-10-27 Univers ity of current (pack per 00:00:00 00:00:00 [place] ) - Reported Branch Cigarette 2021-10-27 2021-10-27 University of pack-years 00:00:00 00:00:00 [facility] Tobacco use and 2021-10-27 2021-10-27 Smokeless Universit y of exposure 00:00:00 00:00:00 tobacco non-user [facility] Tobacco Comment 2021-10-27 2021-10-27 taking Chantix Unive rsity of 00:00:00 00:00:00 [facility] Sex [birth year] Universit y of 00:00:00 00:00:00 [facility] Smoking Status Start Date Stop Date Source Smokes tobacco daily 2021-10-27 00:00:00 Univers ity of [facility] Medications Ordered Filled Start Stop Current Ordering Indication Dosage Frequency Signature Comments Components Source Medication Medication Date Date Medication? Clinician (SIG) Name Name modafiniL Yes 200mg Take 200 Uni vers 200 mg 9-29 mg by ity of tablet 00:00: mouth [place] 00 every Medical morning. Branch modafiniL Yes 200mg Take 200 Uni vers 200 mg 9-29 mg by ity of tablet 00:00: mouth 00 every Medical morning. Branch buprenorphi Yes PLACE 1 Uni vers ne-naloxone 9-15 FILM ity of 8-2 mg 00:00: UNDERNEATH [place] sublingual 00 TONGUE Medical film EVERY DAY. Branch ALLOW TO DISSOLVE SLOWLY IN MOUTH WITHOUT CHEWING OR SWALLOWING buprenorphi 2021-[address] 1 Uni vers ne-naloxone 9-15 FILM ity of 8-2 mg 00:00: UNDERNEATH [place] sublingual 00 TONGUE Medical film EVERY DAY. Branch ALLOW TO DISSOLVE SLOWLY IN MOUTH WITHOUT CHEWING OR SWALLOWING modafiniL 2-0 Yes 200mg Take 200 Uni vers 200 mg 6-14 mg by ity of tablet 00:00: mouth [place] 00 every Medical morning. Branch modafiniL 2022-0 Yes 200mg Take 200 Uni vers 200 mg 6-14 mg by ity of tablet 00:00: mouth [place] 00 every Medical morning. Branch modafiniL 2022-0 Yes 200mg Take 200 Uni vers 200 mg 6-14 mg by ity of tablet 00:00: mouth [place] 00 every Medical morning. Branch modafiniL 2022-0 2022- No 200mg Take 200 Un queta 200 mg 6-14 09-23 mg by ity of tablet 00:00: 00:00 mouth [place] 00 :00 every Medical morning. Branch modafiniL 2022-0 2022- No 200mg Take 200 Un queta 200 mg 6-14 09-23 mg by ity of tablet 00:00: 00:00 mouth [place] 00 :00 every Medical morning. Branch modafiniL 2022-0 2022- No 200mg Take 200 Un queta 200 mg 6-14 09-23 mg by ity of tablet 00:00: 00:00 mouth [place] 00 :00 every Medical morning. Branch cyclobenzap 2-0 Yes [id number] TAKE 1 Univers rine 10 mg 5-07 TABLET BY ity of tablet 00:00: MOUTH [place] 00 EVERY 8 Medical HOURS Branch NEEDED FOR MUSCLE SPASMS. cyclobenzap 2-0 Yes [id number] TAKE 1 Univers rine 10 mg 5-07 TABLET BY ity of tablet 00:00: MOUTH [place] 00 EVERY 8 Medical HOURS Branch NEEDED FOR MUSCLE SPASMS. cyclobenzap 2021-0 Yes [id number] TAKE 1 Univers rine 10 mg 5-07 TABLET BY ity of tablet 00:00: MOUTH [place] 00 EVERY 8 Medical HOURS Branch NEEDED FOR MUSCLE SPASMS. cyclobenzap 2021-0 Yes [id number] TAKE 1 Univers rine 10 mg 5-07 TABLET BY ity of tablet 00:00: MOUTH [place] 00 EVERY 8 Medical HOURS Branch NEEDED FOR MUSCLE SPASMS. cyclobenzap 0 Yes [id number] TAKE 1 Univers rine 10 mg 5-07 TABLET BY ity of tablet 00:00: MOUTH [place] 00 EVERY 8 Medical HOURS Branch NEEDED FOR MUSCLE SPASMS. cyclobenzap Yes [id number] TAKE 1 Univers rine 10 mg 5-07 TABLET BY ity of tablet 00:00: MOUTH [place] 00 EVERY 8 Medical HOURS Branch NEEDED FOR MUSCLE SPASMS. cyclobenzap 2021- No [id number] TAKE 1 Univers rine 10 mg 5-07 10-13 TABLET BY ity of tablet 00:00: 00:00 MOUTH [place] 00 :00 EVERY 8 Medical HOURS Branch NEEDED FOR MUSCLE SPASMS. cyclobenzap 2021- No [id number] TAKE 1 Univers rine 10 mg 5-07 10-13 TABLET BY ity of tablet 00:00: 00:00 MOUTH [place] 00 :00 EVERY 8 Medical HOURS Branch NEEDED FOR MUSCLE SPASMS. gabapentin 2019-0 Yes TK 1/2 TO Un queta 600 mg 7-25 1 T PO BID ity of tablet 00:00: [place] 00 Medical Branch gabapentin 2019-0 Yes TK 1/2 TO Un queta 600 mg 7-25 1 T PO BID ity of tablet 00:00: [place] 00 Medical Branch gabapentin 2019-0 Yes TK 1/2 TO Un queta 600 mg 7-25 1 T PO BID ity of tablet 00:00: [place] 00 Medical Branch gabapentin 2019-0 Yes TK 1/2 TO Un queta 600 mg 7-25 1 T PO BID ity of tablet 00:00: [place] 00 Medical Branch gabapentin 2019-0 Yes TK 1/2 TO Un queta 600 mg 7-25 1 T PO BID ity of tablet 00:00: [place] 00 Medical Branch gabapentin 2019-0 Yes TK 1/2 TO Un queta 600 mg 7-25 1 T PO BID ity of tablet 00:00: [place] 00 Medical Branch gabapentin 2019-0 2021- No TK 1/2 TO U nivers 600 mg 7-25 10-13 1 T PO BID ity of tablet 00:00: 00:00 [place] 00 :00 Medical Branch gabapentin 2019-0 2021- No TK 1/2 TO U nivers 600 mg 7-25 01-26 1 T PO BID ity of tablet 00:00: 00:00 [place] 00 :00 Medical Branch tablet 2019- Yes PLACE 1 Univers compound 5-13 AND 1/2 ity of base no.230 00:00: FILMS [place] (SUBSOLV 00 UNDER THE Medica l RDT MISC) TONGUE Q Branch DAY ALLOW TO DISSOLVE SLOWLY WITHOUT CHEWING OR SWALLOWING tablet 2019- Yes PLACE 1 Univers compound 5-13 AND 1/2 ity of base no.230 00:00: FILMS [place] (SUBSOLV 00 UNDER THE Medica l RDT MISC) TONGUE Q Branch DAY ALLOW TO DISSOLVE SLOWLY WITHOUT CHEWING OR SWALLOWING tablet 2018- Yes PLACE 1 Univers compound 5-13 AND 1/2 ity of base no.230 00:00: FILMS [place] (SUBSOLV 00 UNDER THE Medica l RDT MISC) TONGUE Q Branch DAY ALLOW TO DISSOLVE SLOWLY WITHOUT CHEWING OR SWALLOWING tablet 2021- No PLACE 1 Univers compound 5-13 01-06 AND 1/2 ity of base no.230 00:00: 00:[place] (SUBSOLV 00 :00 UNDER THE Medica l RDT MISC) TONGUE Q Branch DAY ALLOW TO DISSOLVE SLOWLY WITHOUT CHEWING OR SWALLOWING tablet 2021- No PLACE 1 Univers compound 5-13 01-06 AND 1/2 ity of base no.230 00:00: 00:[place] (SUBSOLV 00 :00 UNDER THE Medica l RDT MISC) TONGUE Q Branch DAY ALLOW TO DISSOLVE SLOWLY WITHOUT CHEWING OR SWALLOWING tablet 2021- No PLACE 1 Univers compound 5-13 01-06 AND 1/2 ity of base no.230 00:00: 00:[place] (SUBSOLV 00 :00 UNDER THE Medica l RDT MISC) TONGUE Q Branch DAY ALLOW TO DISSOLVE SLOWLY WITHOUT CHEWING OR SWALLOWING Immunizations Ordered Filled Immunization Date Status Comments [facility] e Immunization Name Name [facility] 2021-12-30 Completed University of 00:00:00 [facility] HPV9 2021-12-30 Completed University of 00:00:00 [facility] HPV9 2021-12-30 Completed University 00:00:00 [facility] HPV9 2021-12-30 Completed University of 00:00:00 [facility] HPV9 2021-12-30 Completed University of 00:00:00 [facility] Branch HPV9 2021-12-30 Completed University of 00:00:00 [facility] Branch HPV9 2021-12-30 Completed University of 00:00:00 [facility] Branch HPV9 2021-12-30 Completed University of 00:00:00 [facility] SARS-COV-2 COVID-19 2020-06-13 Completed Unive rsity of MODERNA 12+ YRS 00:00:00 [place] Med ical VACCINE Branch SARS-COV-2 COVID-19 2020-06-13 Completed Unive rsity of MODERNA 12+ YRS 00:00:00 [place] Med ical VACCINE Branch SARS-COV-2 COVID-19 2020-06-13 Completed Unive rsity of MODERNA 12+ YRS 00:00:00 [place] Med ical VACCINE Branch SARS-COV-2 COVID-19 2020-06-13 Completed Unive rsity of MODERNA 12+ YRS 00:00:00 [place] Med ical VACCINE Branch SARS-COV-2 COVID-19 2020-06-13 Completed Unive rsity of MODERNA 12+ YRS 00:00:00 [place] Med ical VACCINE Branch SARS-COV-2 COVID-19 2020-06-13 Completed Unive rsity of MODERNA 12+ YRS 00:00:00 [place] Med ical VACCINE Branch SARS-COV-2 COVID-19 2020-06-13 Completed Unive rsity of MODERNA 12+ YRS 00:00:00 [place] Med ical VACCINE Branch SARS-COV-2 COVID-19 2020-06-13 Completed Unive rsity of MODERNA 12+ YRS 00:00:00 [place] Med ical VACCINE Branch SARS-COV-2 COVID-19 2020-05-30 Completed Unive rsity of MODERNA 12+ YRS 00:00:00 [place] Med ical VACCINE Branch SARS-COV-2 COVID-19 2020-05-30 Completed Unive rsity of MODERNA 12+ YRS 00:00:00 [place] Med ical VACCINE Branch SARS-COV-2 COVID-19 2020-05-30 Completed Unive rsity of MODERNA 12+ YRS 00:00:00 [place] Med ical VACCINE Branch SARS-COV-2 COVID-19 2020-05-30 Completed Unive rsity of MODERNA 12+ YRS 00:00:00 [place] Med ical VACCINE Branch SARS-COV-2 COVID-19 2020-05-30 Completed Unive rsity of MODERNA 12+ YRS 00:00:00 [place] Med ical VACCINE Branch SARS-COV-2 COVID-19 2020-05-30 Completed Unive rsity of MODERNA 12+ YRS 00:00:00 [place] Med ical VACCINE Branch SARS-COV-2 COVID-19 2020-05-30 Completed Unive rsity of MODERNA 12+ YRS 00:00:00 [place] Med ical VACCINE Branch SARS-COV-2 COVID-19 2020-05-30 Completed Unive rsity of MODERNA 12+ YRS 00:00:00 [place] Med ical VACCINE Branch Vital Signs Vital Name Observation Time Observation Value Comments Source Systolic blood 2022-01-24 20:48:00 113 mm[Hg] Univer sity of pressure [facility] Diastolic blood 2022-01-24 20:48:00 69 mm[Hg] Unive rsity of pressure [facility] Heart rate 2022-01-24 20:48:00 74 /min [facility] Body temperature 2022-01-24 20:48:00 36.72 Tiffanie [facility] ersity of [facility] Respiratory rate 2022-01-24 20:48:00 18 /min [facility] [place] [facility] Body height 2022-01-24 20:48:00 165.1 cm [facility] Body weight 2022-01-24 20:48:00 75.751 kg [facility] BMI 2022-01-24 20:48:00 27.79 kg/m2 [facility] Systolic blood 2022-01-06 18:28:00 110 mm[Hg] Univer sity of pressure [facility] Branch Diastolic blood 2022-01-06 18:28:00 69 mm[Hg] Unive rsity of pressure [facility] Branch Heart rate 2022-01-06 18:28:00 74 /min [facility] Body temperature 2022-01-06 18:28:00 36.89 Tiffanie Univ ersity of [facility] Respiratory rate 2022-01-06 18:28:00 18 /min [facility] ersity of [facility] Body height 2022-01-06 18:28:00 160 cm [facility] Body weight 2022-01-06 18:28:00 75.841 kg [facility] BMI 2022-01-06 18:28:00 29.62 kg/m2 [facility] Systolic blood 2021-12-30 15:10:00 116 mm[Hg] Univer sity of pressure [facility] Diastolic blood 2021-12-30 15:10:00 79 mm[Hg] Unive rsity [facility] Heart rate 2021-12-30 15:10:00 78 /min [facility] Body temperature 2021-12-30 15:10:00 36.78 Tiffanie [facility] ers[facility] [place] [facility] Respiratory rate 2021-12-30 15:10:00 18 /min [facility] [place] [facility] Body height 2021-12-30 15:10:00 160 cm [facility] Body weight 2021-12-30 15:10:00 75.841 kg [facility] BMI 2021-12-30 15:10:00 29.62 kg/m2 [facility] Procedures Procedure Date / Time Performed Performing Clinician Sour e POCT TEST 2022-01-06 18:43:00 Jareth Olmedo [facility] GARDASIL 9 (HPV 9V) 2021-12-30 16:46:05 Jareth Olmedo [facility] VACCINE [facility] [place] [facility] POCT TEST 2021-12-30 15:29:00 Honorio Jareth [facility] Encounters Start End Encounter Admission Attending Care Care Encounter Source Date/Time Date/Time Type Type Clinicians Facility Department ID 2021-07-09 Outpatient [facility] [id number] [place] 00:38:59 [id number] [facility] 2022-02-08 2022-02-08 Outpatient R AMENA BETANCOURT [facility] B [id number] Univers 00:00:00 00:00:[address] [facility] 2022-01-24 2022-01-24 Outpatient R AMENA BETANCOURT [facility] B [id number] [facility] 15:30:00 16:07:[address] [facility] 2022-01-24 2022-01-24 Office Allan [facility] [id number] Univers 15:30:00 16:07:03 Visit Amena SALDANA [id number] it y of [place] [id number] [place] [facility] [id number] [address] 2022-01-20 2022-01-20 Outpatient R AMENA BETANCOURT [facility] B [id number] Univers 15:15:00 15:15:[facility] 2022-01-06 2022-01-06 Outpatient R AMENA BETANCOURT [facility] B [id number] Univers 16:00:00 16:00:00 [facility] joyce [facility] 2022-01-06 2022-01-06 Outpatient R HONORIOROSALEEN [facility] [id number] Univers 14:15:00 14:27:[address] [facility] 2022-01-06 2022-01-06 Office Jareth Olmedo [facility] 1.2.840.114 [id number] Univers 14:15:00 14:27:31 Visit MIRNA [id number] i ty [facility] 4.2.[place] [id number] [address] 2022-01-03 2022-01-03 Telephone Jareth Olmedo [facility] 1.2.840.11 [id number] Univers 00:00:00 00:00:00 LES [id number] it y of [place] [id number] [place] [id number] [address] 2021-12-30 2021-12-30 Water Mechanic 2, Adc Lab [facility] 1.2.840.114 [id number] Univers 11:00:00 11:13:02 Visit Honorio Jareth BRADLEY [id number] ity of [facility] 4.2.7.2.[place] [id number] Mi dical NAL [address] [facility] 2021-12-30 2021-12-30 Outpatient R JARETH OLMEDO [facility] [id number] Univers 09:30:00 10:59:31 ity of [facility] 2021-12-30 2021-12-30 Office Jareth Olmedo [facility] 1.2.840.114 [id number] Univers 09:30:00 10:59:31 Visit MIRNA [id number] i ty of [place] [id number] [place] [id number] Mi dical NAL 134 [facility] 2021-12-30 2021-12-30 Outpatient R JARETH OLMEDO [facility] [id number] Univers 09:30:00 10:59:31 ity of [facility] 2021-12-30 2021-12-30 Orders Doctor PHILIP 1.2.840.114 [id number] Univers 00:00:00 00:00:00 Only Unassigned, JOYCE 350.1.13.10 ity of [place] [facility] 4.2.7.2.686 Anil as [id number] [facility] 009 Branch 2021-12-28 2021-12-28 Telephone Allan [facility] DANIEL 1.2.840.11 [id number] Univers 00:00:00 00:00:00 Amena SALDANA [id number] it y of PEDIATRIC 4.2.7.2.686 [place] [facility] [id number] [facility] [address] 2021-11-23 2021-11-23 Outpatient R AMENA BETANCOURT [facility] B [id number] Univers 09:30:00 10:56:47 TRIAMENA ABERNATHY ity of [facility] 2021-11-23 2021-11-23 Office Allan [facility] SANCHEZ 1.2.840.114 [id number] Univers 09:30:00 10:56:47 Visit Amena SALDANA [id number] it y of [place] 4.2.7.2.[place] [id number] [facility] 134 Branch 2021-11-09 2021-11-09 Water Mechanic Lab, Ang - Db [facility] 1.2.840.1 [id number] Univers 16:30:00 16:45:00 Visit Eliud [facility] [id number] ity of Amena Betancourt 4.2.7.2.686 [place] REENA?BLEA [id number] Mi lili [address] MEDICAL OFFICE [facility] 2021-11-09 2021-11-09 Office Allan [facility] 1.2.840.114 [id number] Univers 15:00:00 15:40:11 Visit Amena SALDANA 350.1.13.10 it y of WOMEN'S 4.2.7.2.686 [facility] [id number] [address] 2021-11-09 2021-11-09 Outpatient R AMENA BETANCOURT [facility] B [id number] Univers 15:00:00 15:40:[address] [facility] 2021-11-09 2021-11-09 Outpatient R AMENA BETANCOURT [facility] B [id number] Univers 15:00:00 15:40:[address] [facility] 2021-11-09 2021-11-09 Outpatient R AMENA BETANCOURT [facility] B [id number] Univers 15:00:00 15:00:[facility] 2021-10-27 2021-10-27 Outpatient R JARETH OLMEDO [facility] [id number] Univers 15:00:00 15:45:[address] [facility] 2021-10-27 2021-10-27 Office Jareth Olmedo [facility] 1.2.840.114 [id number] Univers 15:00:00 15:45:46 Visit LES 350.1.13.10 it y of WOMEN'S 4.2.7.2.686 [facility] [id number] [address] 2021-10-27 2021-10-27 Orders Doctor PALACIOS 1.2.840.114 [id number] Univers 00:00:00 00:00:00 Only Unassigned, JOYCE 350.1.13.10 ity of [place] [facility] 4.2.7.2.686 [facility] [id number] [facility] 009 Branch 2021-10-18 2021-10-18 Emergency [email or web address] ERT [id number] Univers 12:38:00 17:05:00 [facility] 2021-10-18 2021-10-18 [facility] 1.2.306.110 [id number] Univers 12:38:00 17:05:00 Alexei MIRNA 350.1.13.10 i ty of [place] 4.2.7.2.686 [facility] [id number] [facility] 084 Branch 2021-10-18 2021-10-18 Emergency [email or web address] ERT [id number] Univers 12:38:00 17:05:00 [facility] 2021-02-20 2021-02-20 Outpatient UNKNOWN HCANW REF [id number] [facility] 13:22:00 13:22:00 21 [facility] 2021-02-20 2021-02-20 Emergency EM Crismon, HCACR ESTRELLITA [id number] [facility] 07:08:00 10:32:00 Praveen 24 Co [facility] Results Test Description Test Time Test Comments Results Result Comments Source POCT TEST 2022-01-06 18:43:00 Test Item Value Reference Range Interpretation Comme nts POCT PREG (test code = 1605) Negative On board controls acceptable with C Line (test code = 3574) Yes POCT PREG LOT # (test code = 3575) POCT PREG TEST DATE (test code = 3576) [id number] 18:43:00 Test Item Value Reference Range Interpretation Comments POCT PREG (test code = 1605) Negative On board controls acceptable with C Yes Line (test code = 3574) POCT PREG LOT # (test code = 3575) POCT PREG TEST DATE (test code = 3576) [facility] [id number] 18:43:00 Test Item Value Reference Range Interpretation Comments POCT PREG (test code = 1605) Negative On board controls acceptable with C Yes Line (test code = 3574) POCT PREG LOT # (test code = 3575) POCT PREG TEST DATE (test code = 3576) [facility] [id number] 15:29:00 Test Item Value Reference Range Interpretation Comments POCT PREG (test code = 1605) Negative On board controls acceptable with C Yes Line (test code = 3574) POCT PREG LOT # (test code = 3575) POCT PREG TEST DATE (test code = 3576) [facility] [id number] 15:29:00 Test Item Value Reference Range Interpretation Comments POCT PREG (test code = 1605) Negative On board controls acceptable with C Yes Line (test code = 3574) POCT PREG LOT # (test code = 3575) POCT PREG TEST DATE (test code = 3576) [facility] TRANSVAGINAL NON [id number] 09:32:00 [facility] : 1990 Sex: F Patient Name: PETROS LIZ Unit No: [id number] EXAMS: CPT CODE: [id number] [place] [address] C3 TIME OF STUDY: 02/20/2021 REASON FOR EXAM: ovarain cyst COMPARISON: CT on the same date. TECHNIQUE:Transvaginal sonogram was performed. FINDINGS: Transvaginal sonogram: The [...] 2.5 x 1.7 x 1.8cm. The left me asures 4.1 x 2.2 x 2.8 cm. There [...] Indira MARIE Technologist: Sophy Stevenson Trnscrbd D/ (2632) [email or web address] Probe: [id number] Orig Print D/T: S: 02/20/2021 (0927) Probe: ELISABETH Cavanaugh NAME: [address] PHYS: Indira [place], [place] [address] : 1990 AGE: 30 SEX: F LOC: B.ERS PHONE #: [phone] EXAM DATE: 02/20/2021 STATUS: REG ER FAX #: [phone] RAD NO: Page 1 Signed ReportLACTIC [id number] 09:17:00 Test Item Value Reference Range Interpretation Comments LACTIC ACID (test 2.1 mmol/L 0.4-2.0 H ON 1 AT 0917, code = LACT) B.LAB.NIYAH Tejada TO JASSON MONREAL T he report was conf irmed by read back parrish cols Y,N: YES. Criti senait values after th e first occurrence are excluded. - CT ABD PELVIS [id number] 08:35:00 [facility] : 1990 Sex: F Patient Name: PETROS LIZ Unit No: [id number] EXAMS: CPT CODE: [id number] CT ABD PELVIS W/CONT [id number] EXAM: - CT ABD PELVIS W/CONT LOCATION: C3 INDICATION: 30 years - old Female with bl flank pain / hx renal; calculi TECHNIQUE: Contrast - IV contrast was given. No oral contrast was given Portal venous phase - abdomen and pelvis No delayed phase images were obtained. Reconstructions - coronal and sagittalplanes This exam was performed according to our departmental dose- optimization program, which includes automated exposure control, adjustment of the mA and/or kV according to patient size and/or use ofiterative reconstruction technique COMPARISON: None FINDINGS: Statements: None. Thoracic: Included im ages of the lower chest demonstrate no abnormalities. [...] cm cystlike lesion in the left ovary. [facility] [place] NAME: PETROS LIZ [address] [place] [address] PHYS: SHE.Indira [place], [place] [address] : 1990 AGE: 30 SEX: F LOC: Marisabel.ERS PHONE #: [phone] EXAM DATE: 02/20/2021 STATUS: REG ER FAX #: [phone] RAD #: D/C DT PAGE 1 Signed Report (CONTINUED) Patient Name: PETROS LIZ Unit No: [id number] EXAMS: CPT CODE: [id number] CT ABD PELVIS W/CONT 53097 <Continued> No evidence of obstructive uropathy. at 0835 Reported and signed by: Adelso Adler MD CC: Indira MARIE Dictated Date/Time: 02/20/2021 (0835) Technologist: Orlando Burgos CTDI: 9.22 DLP: 492.32 Trnscrpt: 02/20/2021 (0835) [email or web address] ELISABETH Cavanaugh NAME: [address] PHYS: Chad Armenta [place] [address] : 1990 AGE: 30 SEX: F LOC: [place] PHONE #: [phone] EXAM DATE: 02/20/2021 STATUS: REG ER FAX #: [phone] RAD #: D/C DT PAGE 2 Signed Report Patient Name: PETROS LIZ Unit No: [id number] EXAMS: CPT CODE: [id number] CT ABD PELVIS W/CONT 15581 <Continued> Orig Print D/T: S: 02/20/2021 (0839) ELISABETH Cavanaugh NAME: SH[address] PHYS: VIKTORIYA Indira Fitzgerald [place] [address] : 1990 AGE: 30 SEX: F LOC: B.ERS PHONE #: [phone] EXAM DATE: 02/20/2021 STATUS: REG ER FAX #: [phone] RAD #: D/C DT PAGE 3 Signed ReportBASIC METABOLIC [id number] 08:03:00 Test Item Value Reference Range Interpretation [...] message] (test code = Index/DL The system Measy HEMINDEX) generated this result transmit ayde reference range [...] this result as normal/abnormal . HEPATIC FUNCTION [id number] 08:03:00 Test Item Value Reference Range Interpretation [...] 86 Unit/L 45-117 N code = ALKP) [id number] 08:03:00 Test Item Value Reference Range Interpretation Comments LIPASE (test code = LIP) 50 Unit/L 114-286 L CBC W/O [id number] 07:54:00 Test Item Value Reference Range Interpretation [...] N MPV) UA RFLX MICR CULT IF [id number] 07:51:00 Test Item Value Reference Range Interpretation [...] Suprapubic Pain- XR ELBOW 3 + V LT 2018-06-06 18:55:00 FAX: Ortega Barrera MD [phone] [place]: [facility]: [facility] FAX: Swapnil Smith NP [phone] ----- Patient Name: PETROS SYKES Unit No: [id number] EXAMS: CPT CODE: [id number] XR ELBOW 3 + V LT [address] EXAMINATION: - XRFOREARM 2 VIEWS LT, - XR ELBOW 3 + V LT. LOCATION: B2. HISTORY: fall. COMPARISON: None. TECHNIQUE: AP, lateral, and oblique views of the left elbow were obtained. AP and lateral views of the left forearm were also obtained. FINDINGS: No acute fracture or dislocation is identified. Soft tissue structures appear within normal limits. IMPRESSION: No acute osseous abnormality is identified. at 185 Reported and signed by: Pau Cardenas MD CC: Swapnil Gonzalez NP Dictated Date/Time: 06/06/2018 (609)Technologist: Elise Stark Transcribed Date/Time: 06/06/2018 (376) By: [email or web address] Orig Print D/T: S: 06/06/2018 (1858) RONALDSherif [place] NAME: PETROS SYKES [address] [place] [address] PHYS: NIRISABEL.01 - Swapnli Gonzalez NP [place], [place] [address] : 1990 AGE: 28 SEX: F LOC: B.ERS PHONE #: [phone] EXAM DATE: 06/06/2018 STATUS: REG ER FAX #: [phone] RAD NO: DC Dt: PAGE 1 Signed Report- XR FOREARM 2 VIEWS [id number] 18:55:00 FAX: Ortega Barrera MD [phone] [place]: St: REG FAX: Swapnil Smith NP [phone] ----- Patient Name: PETROS SYKES Unit No: [id number] EXAMS: CPT CODE: [id number] XR FOREARM [address] [place] [address] EXAMINATION: -XR FOREARM 2 VIEWS LT, - XR ELBOW 3 + V LT. LOCATION: B2. HISTORY: fall. COMPARISON: None. TECHNIQUE: AP, lateral, and oblique views of the left elbow were obtained. AP and lateral views of the left forearm were also obtained. FINDINGS: No acute fracture or dislocation is identified. Soft tissue structures appear within normal limits. IMPRESSION: No acute osseous abnormality is identified. at 1855 Reported and signed by: Pau Cardenas MD CC: Swapnil Gonzalez NP Dictated Date/Time: 06/06/2018 (1854)Technologist: Elise Stark TranscribedDate/Time: 06/06/2018 (1854) By: [email or web address] Orig Print D/T: S: 06/06/2018 (1858) ELISABETH Thompsone NAME: PETROS SYKES [address] [place] [address] PHYS: Swapnil [place]ree [place] [address]OB: 1990 AGE: 28 SEX: F [facility] [id number] LOC: STE[place]ANIE PHONE #: [phone] EXAM DATE: 06/06/2018 STATUS: REG ER FAX #: [phone] RAD NO: DC Dt: PAGE 1 Signed Report- XR HAND 3 + V [id number] 18:54:00 FAX: Ortega Barrera MD [phone] [place]: St: REG FAX: Swapnil Smith NP [phone] ----- Patient Name: PETROS SYKES Unit No: [id number] EXAMS: CPT CODE: [id number] XR HAND 3 + [place] [address] EXAMINATION: - XR WRIST 3 + V LT, - XR HAND 3 + V LT. LOCATION: B2. HISTORY: fall. COMPARISON: None. TECHNIQUE: AP, lateral, and oblique views of the left wrist and left hand were obtained. FINDINGS: No acute fracture or dislocation is identified. Incidental note is made of negative ulnar variance. Soft tissue structuresappear within normal limits. IMPRESSION: No acute osseous abnormality is identified. at 1854 Reported and signed by: Pau Cardenas MD CC: Swapnil Gonzalez NP Dictated Date/Time: 06/06/2018 (1853)Technologist: Elise Stark Transcribed Date/Time: 06/06/2018 (1853) By: [email or web address] Orig Print D/T: S: 06/06/2018 (1856) ELISABETH Cavanaugh NAME: PETROS SYKES [address] [place] [address] PHYS: TEREPrimitivoSwapnil Richard [place] [address] :1990 AGE: 28 SEX: F LOC: Marisabel.ERS PHONE #: [phone] EXAM DATE: 06/06/2018 STATUS: REG ER FAX #: [phone] RAD NO: DC Dt: PAGE 1 Signed Report- XR WRIST 3 + V [id number] 18:54:00 FAX: Ortega Barrera MD [phone] [place]: St: REG FAX: Swapnil Smith NP [phone] ---- Patient Name: PETROS SYKES Unit No: [id number] EXAMS: CPT CODE: [id number] XR WRIST 3 + [place] LT [address] EXAMINATION: - XRWRIST 3 + V LT, - XR HAND 3 + V LT. LOCATION: B2. HISTORY: fall. COMPARISON: None. TECHNIQUE: AP, lateral, and oblique views of the left wrist and left hand were obtained. FINDINGS: No acute fracture or dislocation is identified. Incidental note is made of negative ulnar variance. Soft tissue structures appear within normal limits. IMPRESSION: No acute osseous abnormality is identified. at 1854 Reported and signed by: Pau Cardenas MD CC: Swapnil Gonzalez NP Dictated Date/Time: 06/06/2018 (1853)Technologist: Elise Stark Transcribed Date/Time: 06/06/2018 (1853) By: [email or web address] Orig Print D/T: S: 06/06/2018 (1856) ELISABETH Cavanaugh NAME: PETROS SYKES [address] [place] [address] PHYS: NIRISABEL.01 - Swapnil [place] NP [place], [place] [address] :1990 AGE: 28 SEX: F LOC: STEPHANIE PHONE #: [phone] EXAM DATE: 06/06/2018 STATUS: REG ER FAX #: [phone] RAD NO: DC Dt: PAGE 1 Signed Report- XR HUMERUS 2 + V [id number] 18:51:00 FAX: Ortega Barrera MD [phone] [place]: St: REG FAX: Swapnil Smith NP [phone] ----- Patient Name: PETROS SYKES Unit No: [id number] EXAMS: CPT CODE: [id number] XR HUMERUS 2 + [place] [address] EXAMINATION: - XR HUMERUS 2 + V LT. LOCATION: B2. HISTORY: fall. COMPARISON: None. TECHNIQUE: AP and lateral views ofthe left humerus were obtained. FINDINGS: No acute fracture or dislocation is identified. Soft tissue structures appear within normal limits. IMPRESSION: No acute osseous abnormality is identified. at 1851 Reported and signed by: Pau Cardenas MD CC: Swapnil Gonzalez NP Dictated Date/Time: 06/06/2018 (1850)Technologist: Elise Stark Transcribed Date/Time: 06/06/2018 (1850) By: [email or web address] Orig Print D/T: S: 06/06/2018 (1854) ELISABETH Cavanaugh NAME: PETROS SYKES [address] [place] [address] Bl PHYS: TERE. - Swapnil Gonzalez NP [place] [id number] : 1990 AGE: 28 SEX: F LOC: STE[place]ANIE PHONE #: [phone] EXAM DATE: 06/06/2018 STATUS: REG ER FAX #: [phone] RAD NO: DC Dt: PAGE 1 Signed Report- XR SHOULDER 2 + V [id number] 18:50:00 FAX: Ortega Barrera MD [phone] [place]: St: REG FAX: Swapnil Smith NP [phone] ----- Patient Name: PETROS SYKES Unit No: [id number] EXAMS: CPT CODE: [id number] XR SHOULDER 2 + [place] [address] EXAMINATION: -XR SHOULDER 2 + V LT. LOCATION: B2. HISTORY: fall. COMPARISON: None. TECHNIQUE: Internal rotation, e xternal rotation, and scapular Y views of the left shoulder were obtained. FINDINGS: No acute fracture or dislocation is identified. Soft tissue structures appear within normal limits. IMPRESSION: No acute osseous abnormality is identified. at 1850 Reported and signed by: Pau Cardenas MD CC: Swapnil [place] NP Dictated Date/Time: 06/06/2018 (1849)Technologist: Elise Stark Transcribed Date/Time: 06/06/2018 (1849) By: [email or web address] Orig Print D/T: S: 06/06/2018 (1852) ELISABETH Cavanaugh NAME: MONYPETROS SAMAYOA [address] [place] [address] PHYS: TERE. - Swapnil Gonzalez NP, [place] [address] : 1990 AGE: 28 SEX: F LOC: STE[place]ANIE PHONE #: [phone] EXAM DATE: 06/06/2018 STATUS: REG ER FAX #: [phone] RAD NO: DC Dt: PAGE 1 Signed Report
[2022-02-08] MEDS ORDERED: IBUPROFEN 200 MG TAB PO ONE (11:05)
--- NOTE | 2022-02-08 13:04 | RAD REPORT ---
EXAM DESCRIPTION: RAD - Foot Right 3 View - 02/08/2022 12:43 pm CLINICAL HISTORY: PAINfollowing blunt force trauma COMPARISON: No comparisons FINDINGS: No fracture, dislocation or periosteal reaction. Valgus angulation is present at the first MTP joint with prominent soft tissues along the medial margin of the joint. No abnormal soft tissue calcifications. No plantar spur. No air or foreign body in the soft tissues. IMPRESSION: Negative right foot examination for acute finding.
[2022-02-08] MEDS ORDERED: ACETAMINOPHEN 500 MG TAB ONE (13:05)
--- NOTE | 2022-02-08 13:50 | ER ---
Nurse's Notes [facility] Name: Brooke Thomas Age: 31 yrs Sex: Female : 1990 Arrival Date: 02/08/2022 Time: 10:31 Bed 24 Private MD: Diagnosis: Pain in right foot Presentation: 02/08 10:45 Chief complaint: Patient states: Right foot injury - pt was at work and reports ld1 dropping a steel pole on right foot. C/O severe pain to right foot. Coronavirus screen: At this time, the client does not indicate any symptoms associated with coronavirus-19. Ebola Screen: No symptoms or risks identified at this time. Initial Sepsis Screen: Does the patient meet any 2 criteria? No. Patient's initial sepsis screen is negative. Does the patient have a suspected source of infection? No. Patient's initial sepsis screen is negative. Risk Assessment: Do you want to hurt yourself or someone else? Patient reports no desire to harm self or others. Onset of symptoms was February 08, 2022. 10:45 Method Of Arrival: Wheelchair ld1 10:45 Acuity: ILA 4 ld1 Triage Assessment: 10:46 General: Appears in no apparent distress. uncomfortable, Behavior is cooperative, ld1 anxious. Pain: Complains of pain in right foot Pain does not radiate. Pain currently is 9 out of 10 on a pain scale. Quality of pain is described as aching, throbbing, Pain began 30 min ago. EENT: No signs and/or symptoms were reported regarding the EENT system. Neuro: Level of Consciousness is awake, alert, obeys commands, Oriented to person, place, time, situation. Cardiovascular: Capillary refill < 3 seconds Patient's skin is warm and dry. Respiratory: Airway is patent Respiratory effort is even, unlabored. GI: Abdomen is round non-distended. : No signs and/or symptoms were reported regarding the genitourinary system. Derm: No signs and/or symptoms reported regarding the dermatologic system. Musculoskeletal: Reports pain in right foot. Injury Description: Crush injury sustained to right foot. 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 - Social history:: Smoking status: Patient reports the use of cigarette tobacco products, denies chronic smoking, but will smoke occasionally, Patient/guardian denies using alcohol, street drugs, the patient reports quitting approximately 2 years ago. Screenin:49 Abuse screen: Denies threats or abuse. Denies injuries from another. Nutritional ld1 screening: No deficits noted. Tuberculosis screening: No symptoms or risk factors identified. Fall Risk None identified. Assessment: 10:49 Reassessment: See triage assessment. ld1 Vital Signs: 10:45 BP 124 / 70; Pulse 85; Resp 20; Temp 98.6(O); Pulse Ox 100% on R/A; Weight 74.84 kg; ld1 Height 5 ft. 5 in. (165.10 cm); Pain 9/10; 11:37 BP 109 / 69; Pulse 71; Resp 18; Pulse Ox 99% on R/A; ld1 12:12 BP 102 / 53; Pulse 61; Resp 18; Pulse Ox 99% on R/A; ld1 12:56 BP 95 / 66; Pulse 60; Resp 18; Pulse Ox 100% on R/A; ld1 10:45 Body Mass Index 27.46 (74.84 kg, 165.10 cm) ld1 ED Course: 10:31 Patient arrived in ED. rg4 10:33 Kapil Belle DO is Attending Physician. ms3 10:40 Suzie Ruffin, MARION is Primary Nurse. ld1 10:46 Triage completed. ld1 10:46 Arm band placed on right wrist. ld1 10:49 Patient has correct armband on for positive identification. Placed in gown. Bed in low ld1 position. Call light in reach. Side rails up X2. Pulse ox on. NIBP on. Door closed. Noise minimized. Warm blanket given. 10:49 No provider procedures requiring assistance completed. ld1 12:45 Foot Right 3 View XRAY In Process Unspecified. EDMS 13:49 Silvestre Ji DPM is Referral Physician. ms3 13:59 Patient did not have IV access during this emergency room visit. ld1 Administered Medications: 11:20 Drug: Ibuprofen 600 mg Route: PO; ld1 13:07 Drug: Tylenol 1000 mg Route: PO; ld1 Medication: 10:49 VIS not applicable for this client. ld1 Outcome: 13:50 Discharge ordered by . ms3 13:59 Discharged to home ambulatory, with crutches. ld1 13:59 Condition: stable 13:59 Discharge instructions given to patient, Instructed on discharge instructions, follow up and referral plans. medication usage, Demonstrated understanding of instructions, follow-up care, medications, crutch walking. 13:59 Patient left the ED. ld1 Signatures: Dispatcher [employer] EDMS Astrid Quinonez rg4 Kapil Belle DO DO ms3 Suzie Ruffin, RN RN ld1 Corrections: (The following items were deleted from the chart) 10:47 10:46 PMHx: heterozygus factor 5; ld1 ld1
--- NOTE | 2022-02-08 13:51 | EDPHYS ---
Physician Documentation [facility] Name: Brooke Thomas Age: 31 yrs Sex: Female : 1990 Arrival Date: 02/08/2022 Time: 10:31 Bed 24 Private MD: ED Physician Kapil Belle HPI: 02/08 11:01 This 31 yrs old Female presents to ER via Wheelchair with complaints of Foot Injury. ms3 11:01 This 31 yrs old Female presents to ER via Wheelchair with complaints of Foot Injury. ms3 11:01 The patient presents with a crush injury, from a heavy object. The complaints affect ms3 the right foot. Context: The problem was sustained at work, resulted from dropping tow willa bar on her foot, Mechanism of Injury: crush from heavy object. Onset: The symptoms/episode began/occurred acutely, 20 hour(s) ago. Modifying factors: The symptoms are alleviated by nothing, the symptoms are aggravated by nothing. Associated signs and symptoms: The patient has no apparent associated signs or symptoms. Severity of symptoms: At their worst the symptoms were severe, in the emergency department the symptoms are unchanged. 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 - Social history:: Smoking status: Patient reports the use of cigarette tobacco products, denies chronic smoking, but will smoke occasionally, Patient/guardian denies using alcohol, street drugs, the patient reports quitting approximately 2 years ago. ROS: 11:01 Constitutional: Negative for fever, and chills. Neck: Negative for injury, pain, and ms3 swelling, Cardiovascular: Negative for chest pain, and palpitations. Respiratory: Negative for shortness of breath, cough, wheezing, and pleuritic chest pain, Abdomen/GI: Negative for abdominal pain, nausea, vomiting, diarrhea, and constipation. 11:01 MS/extremity: Positive for pain, of the right foot. 11:01 All other systems are negative. Exam: 11:01 Constitutional: This is a well developed, well nourished patient who is awake, alert, ms3 and in no acute distress. Head/Face: Normocephalic, atraumatic. Neck: Trachea midline, no cervical lymphadenopathy. Supple, full range of motion without nuchal rigidity, or vertebral point tenderness. No Meningismus. Chest/axilla: Normal chest wall appearance and motion. Nontender with no deformity. Cardiovascular: Regular rate and rhythm with a normal S1 and S2. No gallops, murmurs, or rubs. Normal PMI, no JVD. No pulse deficits. Respiratory: Lungs have equal breath sounds bilaterally, clear to auscultation and percussion. No rales, rhonchi or wheezes noted. No increased work of breathing, no retractions or nasal flaring. Abdomen/GI: Soft, non-tender, with normal bowel sounds. No distension or tympany. No guarding or rebound. No evidence of tenderness throughout. Skin: Warm, dry with normal turgor. Normal color with no rashes, no lesions, and no evidence of cellulitis. 11:01 Musculoskeletal/extremity: Extremities: noted in the right foot: pain, tenderness. Vital Signs: 10:45 BP 124 / 70; Pulse 85; Resp 20; Temp 98.6(O); Pulse Ox 100% on R/A; Weight 74.84 kg; ld1 Height 5 ft. 5 in. (165.10 cm); Pain 9/10; 11:37 BP 109 / 69; Pulse 71; Resp 18; Pulse Ox 99% on R/A; ld1 12:12 BP 102 / 53; Pulse 61; Resp 18; Pulse Ox 99% on R/A; ld1 12:56 BP 95 / 66; Pulse 60; Resp 18; Pulse Ox 100% on R/A; ld1 10:45 Body Mass Index 27.46 (74.84 kg, 165.10 cm) ld1 MDM: 11:01 Patient medically screened. ms3 11:01 Differential diagnosis: fracture, sprain. ms3 13:50 Data reviewed: vital signs, nurses notes, radiologic studies, and as a result, I will ms3 discharge patient. Counseling: I had a detailed discussion with the patient and/or guardian regarding: the historical points, exam findings, and any diagnostic results supporting the discharge/admit diagnosis, radiology results, the need for outpatient follow up, to return to the emergency department if symptoms worsen or persist or if there are any questions or concerns that arise at home. ED course: Discussed x-ray results with patient. Patient to follow-up with Dr. Ji in 2 to 3 days. Patient understands and agrees with plan. All questions were answered. Return precautions discussed include worsening symptoms, or any other concerns. Patient placed in postop shoe and placed on crutches. Crutch training provided by nursing.. 02/08 11:00 Order name: Foot Right 3 View XRAY; Complete Time: 13:40 ms3 02/08 13:49 Order name: Crutches; Complete Time: 13:52 ms3 02/08 13:49 Order name: Crutch Training; Complete Time: 13:52 ms3 02/08 13:49 Order name: Post-op Orthopedic Shoe; Complete Time: 13:52 ms3 Administered Medications: 11:20 Drug: Ibuprofen 600 mg Route: PO; ld1 13:07 Drug: Tylenol 1000 mg Route: PO; ld1 Disposition Summary: 02/08/22 13:50 Discharge Ordered Location: Home ms3 Condition: Stable ms3 Diagnosis - Pain in right foot ms3 Followup: ms3 - With: Silvestre Ji DPM - When: 2 - 3 days - Reason: Recheck today's complaints Discharge Instructions: - Discharge Summary Sheet ms3 - Musculoskeletal Pain ms3 - Foot Pain ms3 Forms: - Medication Reconciliation Form ms3 - Thank You Letter ms3 - Antibiotic Education ms3 - Prescription Opioid Use ms3 Prescriptions: - Ibuprofen 600 mg Oral Tablet - take 1 tablet by ORAL route every 6 hours As needed take with food; 30 tablet; ms3 Refills: 0, Product Selection Permitted Signatures: Dispatcher [employer] EDMS Kapil Belle DO DO ms3 Suzie Ruffin RN RN ld1 Corrections: (The following items were deleted from the chart) 10:47 10:46 PMHx: heterozygus factor 5; ld1 ld1
[2022-02-08 14:22] VITALS: TEMP 98.6
[2022-02-08 14:25] VITALS: BP 95/66; O2SAT 100
== END 2022-02-08 13:59 | disposition home or self-care (01) ==
LOC: ER 10:28
DX: M79.671 Pain in right foot (principal)
CPT/HCPCS: 99284

== ENCOUNTER 2022-12-12 05:36 | Emergency (ER) | payer OTHER, SELFPAY ==
--- OUTSIDE RECORDS SUMMARY | 2022-12-12 05:46 | XMS REPORT | Continuity of Care Document ---
:1990 Author Organization [facility] t Address [address] [place] [address] [place] [id number] Care Team Providers Name Role Phone Amena Betancourt NP Primary Care Physician [phone] PHILIP MAYES Attending Clinician Unavailable SHANTHI BAUER Attending Clinician Unavailable Shanthi Sheppard Attending Clinician [phone] Amber Rey Attending Clinician Unavailable JA SALDANA Attending Clinician Unavailable Ja Saldana MD Attending Clinician Doctor Unassigned, Maybeury Attending Clinician Unavailable AVELINO CLAYTON Attending Clinician Unavailable Ultrasound, [facility] Attending Clinician Unavailable Avelino Clayton MD Attending Clinician [phone] SANIYA WOLF Attending Clinician Unavailable RUSTAM YU Attending Clinician Unavailable RUSTAM YU Attending Clinician Unavailable 1, [facility] Attending Clinician Unavailable Rustam Yu MD Attending Clinician Saniya Wolf CNM Attending Clinician ALBERTO MONTES Attending Clinician Unavailable Alberto Montes MD Attending Clinician TERRENCE BARRON Attending Clinician Unavailable Faculty, [facility] Attending Clinician Unavailable Terrence Barron MD Attending Clinician ADILSON CHERRY Attending Clinician Unavailable AMENA BETANCOURT Attending Clinician Unavailable AMENA BETANCOURT Attending Clinician Unavailable Pob, [facility] Attending Clinician Unavailable Rosibel Ramirez MD Attending Clinician ROSIBEL RAMIREZ Attending Clinician Unavailable Lab, Ang - Db Attending Clinician Unavailable Susan MARTINEZ Attending Clinician Unavailable Susan Kelly Attending Clinician Nurse, [facility] Attending Clinician Unavailable Unknown, Attending Attending Clinician Unavailable SAGAR GONZALEZ Attending Clinician Unavailable Deanne Simmons MA Attending Clinician Unavailable JARETH OLMEDO Attending Clinician Unavailable Jareth Olmedo MD Attending Clinician 2, [facility] Attending Clinician Unavailable Eliud CROSS, Quinten M Attending Clinician KAMERON DANIELS Attending Clinician Unavailable Kameron Daniels MD Attending Clinician Praveen Lizarraga Attending Clinician Unavailable AMENA BETANCOURT Admitting Clinician Unavailable Susan MARTINEZ Admitting Clinician Unavailable KAMERON DANIELS Admitting Clinician Unavailable Physician, No Primary or Family Admitting Clinician Unavaila ble Payers Payer Name Policy Type Policy Number Effective Date Expiration Date S ource $20 G [id number] 2007 00:00:00 [facility] [id number] 2022 CHOICE [place] STAR 00:00:00 HEALTHY [place] [id number] 2022 WOMEN 00:00:00 Problems Condition Condition Condition Status Onset Resolution Last Treating Co mments Source Name Details Category Date Date Treatment Clinician Date Choroid Choroid Disease Active Overview: Univ ers plexus plexus 7-25 Formattin ity of cyst cyst 00:00: g of this [place] 00 note Medical might be Branch different from the original. Noted on Suyapa cs is recommend ed and a FU is suggested Multiparit Multiparit Disease Active 2022-0 U nivers y y 4-10 ity of 00:00: [place] [facility] Supervisio Supervisio Disease Active 2022-0 U nivers n of n of 4-10 ity of high-risk high[place]risk [place] [address] [facility] Branch History of History of Disease Active 0 U nivers miscarriag miscarriag 4-10 it y of e e 00:00: [place] [facility] Nausea and Nausea and Disease Active U nivers vomiting vomiting 4-10 ity of in in 00:00: [place] 00 [facility] Missed Missed Disease Active 2021-04 Univers 2-27 ity of 00:00: [place] [facility] Vaginal Vaginal Disease Active 2021-04 Univers bleeding bleeding 2-27 ity of 00:00: [place] [address] Medical Branch Rh Rh Disease Active 2021-04 Overview: Univer s negative negative 2-27 Formattin ity of state in state in 00:00: g of this [place] antepartum antepartum 00 note Me dical period period might be Branch different from the original. Will need rhogam 28 weeks, prn Bicornuate Bicornuate Disease Active 2021-04 U nivers uterus uterus 2-27 ity of 00:00: [place] [facility] Abnormal Abnormal Disease Active 2021-04 Unive rs ultrasound ultrasound 2-12 it y of 00:00: [place] [facility] Bicornuate Bicornuate Disease Active 2021-04 U nivers uterus uterus 2-12 it[place] of affecting affecting [place] Me [place]ical antepartum antepartum Br anch Suboxone Suboxone Disease Active 2021-04 Unive rs maintenanc maintenanc -09 it y of e e 00:00: [place] treatment treatment [address] [facility] complicati complicati Br anch ng ng , , antepartum antepartum Narcolepsy Narcolepsy Disease Active 2021-04 Overview : Univers due to due to 04-24 Formattin ity of underlying underlying 00:00: g of this [place] condition condition [address] [facility] without without might be Branch cataplexy cataplexy different from the original. Reports stopped meds 07/10/22 Suboxone Suboxone Disease Active 2021-04 Unive rs maintenanc maintenanc 04-24 it y of e e 00:00: [place] treatment treatment [address] [facility] complicati complicati Br anch ng ng , , antepartum antepartum Factor 5 Factor 5 Disease Active 2021-04 Unive rs Leiden Leiden 04-24 ity of mutation, mutation, 00:[place] heterozygo heterozygo 00 Me dical us Branch Needs flu Needs flu Disease Active 2021-04 Uni vers shot shot 04-24 ity of 00:00: [place] 00 Medical Branch Disease Active 2021-04 Uni vers examinatio examinatio 04-24 it y of n or test, n [place] test, 00:[place] positive positive 00 Medica l result result Branch Disease Active 2021-04 Uni vers with with 04-24 ity of inconclusi inconclusi 00:[place] ve ve 00 Medica l viability, viability, Br anch single or single or unspecifie unspecifie d fetus d fetus Nausea and Nausea and Disease Active 2021-04 U nivers vomiting vomiting -09 ity of in in 00:00: [place] [address] [facility] prior to prior to Branch 22 weeks 22 weeks gestation gestation 5 weeks 5 weeks Disease Active 2021-04 [facility] gestation gestation 1-09 ity of of of 00:00: [place] [address] 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 00:00[place] elial elial 00 Medical lesion lesion Branch (HGSIL), (HGSIL), grade 2 grade 2 STEFAN, on STEFAN, on biopsy of biopsy of cervix cervix Pain Pain Disease Active 2021-04 Univers pelvic pelvic 0-13 ity of 00:00: [place] 00 Medical Branch S/P LEEP S/P LEEP Disease Active 2021-04 Unive rs 0-13 ity of 00:00: [place] [facility] BMI BMI Disease Active Univers 30.0-30.9, 30.0-30.9, 8-10 it y of adult adult 00:00: [place] [address] Medical [place] Screening Screening Disease Active Uni vers examinatio examinatio 11-12 it y of n for STD n for STD 00:00[place] (sexually (sexually 00 [facility] senait transmitte transmitte Br anch d disease) d disease) Late Late Disease Active Univers menses menses 11-12 ity of 00:00: [place] Medical [place] BMI BMI Disease Active Univers 29.0-29.9, 29.0-29.9, 11-12 it y of adult adult 00:00: [place] [address] Medical [place] Well woman Well woman Disease Active U nivers exam with exam with 11-22 ity of routine routine 00:00: [place] gynecologi gynecologi 00 Me dical senait exam senait exam Branch Tobacco Tobacco Disease Active Overview: Univ ers use in use in 11-22 Formattin ity of 00:00: [place] 00 note Medical might be Branch different from the original. Reports quit x1 year ago Tobacco Tobacco Disease Active Univers use use 11-22 ity of disorder disorder 00:00: [address] Allergies, Adverse Reactions, Alerts Allergy Allergy Status Severity Reaction(s) Onset Inactive Treating Comm ents Source Name Type Date Date Clinician Amoxicil Propensi Active Itching Unive rs jalen ty to 705 ity of adverse 00:00: [place] reaction 00 Medical s Branch AMOXICIL DRUG Active ITCHING Univers JALEN INGREDI 705 ity of 00:00: [place] [address] Medical [place] Penicill DA Active MO RASH 2020-04 [facility] ins 1-07 [place] 00:00: [address] [place] DA Active SV 2017-0 [facility] 6-11 [place] 00:00: [address] Social History Social Habit Start Date Stop Date Quantity Comments Source ASSERTION 2022-06-19 University of 00:00:00 [facility] History of tobacco Cigarette Smoker University of use [facility] Gender identity Universit y of [facility] Sexual orientation Univer sity of [facility] Exposure to 2022-09-08 2022-09-18 Not sure University of SARS-CoV-2 (event) 00:00:00 15:45:00 [facility] History of Social 2022-09-18 2022-09-18 Univers ity of function 00:00:00 00:00:00 [facility] Alcohol intake 2022-09-18 2022-09-18 Lifetime University of 00:00:00 00:00:00 non-drinker [facility] (finding) Branch Cigarettes smoked 2022-07-24 2022-07-24 [facility] ity of current (pack per 00:00:00 00:00:00 [place] ) - Reported Branch Cigarette 2022-07-24 2022-07-24 University of pack-years 00:00:00 00:00:00 [facility] Tobacco use and 2022-07-24 2022-07-24 Smokeless Universit y of exposure 00:00:00 00:00:00 tobacco non-user [facility] Tobacco Comment 2021-10-27 2021-10-27 taking Chantix Unive rsity of 00:00:00 00:00:00 [facility] Sex [birth year] Universit y of 00:00:00 00:00:00 [facility] Smoking Status Start Date Stop Date Source Ex-smoker 2022-07-24 00:00:00 2022-07-24 [facility] Smokes tobacco daily 2021-10-27 00:00:00 [facility] Medications Ordered Filled Start Stop Current Ordering Indication Dosage Frequency Signature Comments Components Source Medication Medication Date Date Medication? Clinician (SIG) Name Name methylpheni 2022-0 Yes 5mg Take 1 Univ ers date HCl 5 8-03 tablet by ity of mg tablet 10:30: mouth in [place] [address] the Medical morning Branch and 1 tablet at noon and 1 tablet in the evening. methylpheni 2022-0 Yes 5mg Take 1 Univ ers date HCl 5 8-03 tablet by ity of mg tablet 10:30: mouth in [place] [address] the Medical [facility] Branch and 1 tablet at noon and 1 tablet in the evening. methylpheni 2022-0 Yes 5mg Take 1 Univ ers date HCl 5 8-03 tablet by ity of mg tablet 10:30: mouth in [place] [address] the Medical morning Branch and 1 tablet at noon and 1 tablet in the evening. methylpheni 2023-0 Yes 5mg Take 1 Univ ers date HCl 5 8-03 tablet by ity of mg tablet 10:30: mouth in [facility] s 36 the Medical morning Branch and 1 tablet at noon and 1 tablet in the evening. methylpheni 2023-0 Yes 5mg Take 1 Univ ers date HCl 5 8-03 tablet by ity of mg tablet 10:30: mouth in [facility] 36 the Medical morning Branch and 1 tablet at noon and 1 tablet in the evening. methylpheni 2023-0 Yes 5mg Take 1 Univ ers date HCl 5 8-03 tablet by ity of mg tablet 10:30: mouth in [facility] 36 the Medical morning Branch and 1 tablet at noon and 1 tablet in the evening. DICLEGIS 3-0 Yes [id number] TAKE 2 Uni vers 10-10 mg 7-06 TABLETS BY ity o f per tablet 00:00: MOUTH AT [place] 00 BEDTIME IF Medical NO RELIEF Branch ON DAY 3 TAKE 1 TAB. IN THE MORNING AND 2 TABS. AT BEDTIME, NO RELIEF DAY 4 TAKE 1 TAB. MORNING, 1 TAB. IN AFTERNOON AND 2 TABS. BEDTIME DICLEGIS 3-0 Yes [id number] TAKE 2 Uni vers 10-10 mg 7-06 TABLETS BY ity o f per tablet 00:00: MOUTH AT [place] 00 BEDTIME IF Medical NO RELIEF Branch ON DAY 3 TAKE 1 TAB. IN THE MORNING AND 2 TABS. AT BEDTIME, NO RELIEF DAY 4 TAKE 1 TAB. MORNING, 1 TAB. IN AFTERNOON AND 2 TABS. BEDTIME DICLEGIS 3-0 Yes [id number] TAKE 2 Uni vers 10-10 mg 7-06 TABLETS BY ity o f per tablet 00:00: MOUTH AT [place] 00 BEDTIME IF Medical NO RELIEF Branch ON DAY 3 TAKE 1 TAB. IN THE MORNING AND 2 TABS. AT BEDTIME, NO RELIEF DAY 4 TAKE 1 TAB. MORNING, 1 TAB. IN AFTERNOON AND 2 TABS. BEDTIME DICLEGIS 3-0 Yes [id number] TAKE 2 Uni vers 10-10 mg 7-06 TABLETS BY ity o f per tablet 00:00: MOUTH AT [place] 00 BEDTIME IF Medical NO RELIEF Branch ON DAY 3 TAKE 1 TAB. IN THE MORNING AND 2 TABS. AT BEDTIME, NO RELIEF DAY 4 TAKE 1 TAB. MORNING, 1 TAB. IN AFTERNOON AND 2 TABS. BEDTIME DICLEGIS Yes [id number] TAKE 2 Uni vers 10-10 mg 7-06 TABLETS BY ity o f per tablet 00:00: MOUTH AT [place] 00 BEDTIME IF Medical NO RELIEF Branch ON DAY 3 TAKE 1 TAB. IN THE MORNING AND 2 TABS. AT BEDTIME, NO RELIEF DAY 4 TAKE 1 TAB. MORNING, 1 TAB. IN AFTERNOON AND 2 TABS. BEDTIME DICLEGIS Yes [id number] TAKE 2 Uni vers 10-10 mg 7-06 TABLETS BY ity o f per tablet 00:00: MOUTH AT [place] 00 BEDTIME IF Medical NO RELIEF Branch ON DAY 3 TAKE 1 TAB. IN THE MORNING AND 2 TABS. AT BEDTIME, NO RELIEF DAY 4 TAKE 1 TAB. MORNING, 1 TAB. IN AFTERNOON AND 2 TABS. BEDTIME DICLEGIS Yes [id number] TAKE 2 Uni vers 10-10 mg 7-06 TABLETS BY ity o f per tablet 00:00: MOUTH AT [place] 00 BEDTIME IF Medical NO RELIEF Branch ON DAY 3 TAKE 1 TAB. IN THE MORNING AND 2 TABS. AT BEDTIME, NO RELIEF DAY 4 TAKE 1 TAB. MORNING, 1 TAB. IN AFTERNOON AND 2 TABS. BEDTIME DICLEGIS Yes [id number] TAKE 2 Uni vers 10-10 mg 7-06 TABLETS BY ity o f per tablet 00:00: MOUTH AT [place] 00 BEDTIME IF Medical NO RELIEF Branch ON DAY 3 TAKE 1 TAB. IN THE MORNING AND 2 TABS. AT BEDTIME, NO RELIEF DAY 4 TAKE 1 TAB. MORNING, 1 TAB. IN AFTERNOON AND 2 TABS. BEDTIME DICLEGIS Yes [id number] TAKE 2 Uni vers 10-10 mg 7-06 TABLETS BY ity o f per tablet 00:00: MOUTH AT [place] 00 BEDTIME IF Medical NO RELIEF Branch ON DAY 3 TAKE 1 TAB. IN THE MORNING AND 2 TABS. AT BEDTIME, NO RELIEF DAY 4 TAKE 1 TAB. MORNING, 1 TAB. IN AFTERNOON AND 2 TABS. BEDTIME DICLEGIS Yes [id number] TAKE 2 Uni vers 10-10 mg 7-06 TABLETS BY ity o f per tablet 00:00: MOUTH AT [place] 00 BEDTIME IF Medical NO RELIEF Branch ON DAY 3 TAKE 1 TAB. IN THE MORNING AND 2 TABS. AT BEDTIME, NO RELIEF DAY 4 TAKE 1 TAB. MORNING, 1 TAB. IN AFTERNOON AND 2 TABS. BEDTIME DICLEGIS Yes [id number] TAKE 2 Uni vers 10-10 mg 7-06 TABLETS BY ity o f per tablet 00:00: MOUTH AT [place] 00 BEDTIME IF Medical NO RELIEF Branch ON DAY 3 TAKE 1 TAB. IN THE MORNING AND 2 TABS. AT BEDTIME, NO RELIEF DAY 4 TAKE 1 TAB. MORNING, 1 TAB. IN AFTERNOON AND 2 TABS. BEDTIME DICLEGIS Yes [id number] TAKE 2 Uni vers 10-10 mg 7-06 TABLETS BY ity o f per tablet 00:00: MOUTH AT [place] 00 BEDTIME IF Medical NO RELIEF Branch ON DAY 3 TAKE 1 TAB. IN THE MORNING AND 2 TABS. AT BEDTIME, NO RELIEF DAY 4 TAKE 1 TAB. MORNING, 1 TAB. IN AFTERNOON AND 2 TABS. BEDTIME DICLEGIS Yes [id number] TAKE 2 Uni vers 10-10 mg 7-06 TABLETS BY ity o f per tablet 00:00: MOUTH AT [place] 00 BEDTIME IF Medical NO RELIEF Branch ON DAY 3 TAKE 1 TAB. IN THE MORNING AND 2 TABS. AT BEDTIME, NO RELIEF DAY 4 TAKE 1 TAB. MORNING, 1 TAB. IN AFTERNOON AND 2 TABS. BEDTIME DICLEGIS Yes [id number] TAKE 2 Uni vers 10-10 mg 7-06 TABLETS BY ity o f per tablet 00:00: MOUTH AT [place] 00 BEDTIME IF Medical NO RELIEF Branch ON DAY 3 TAKE 1 TAB. IN THE MORNING AND 2 TABS. AT BEDTIME, NO RELIEF DAY 4 TAKE 1 TAB. MORNING, 1 TAB. IN AFTERNOON AND 2 TABS. BEDTIME DICLEGIS 0 Yes [id number] TAKE 2 Uni vers 10-10 mg 7-06 TABLETS BY ity o f per tablet 00:00: MOUTH AT [place] 00 BEDTIME IF Medical NO RELIEF Branch ON DAY 3 TAKE 1 TAB. IN THE MORNING AND 2 TABS. AT BEDTIME, NO RELIEF DAY 4 TAKE 1 TAB. MORNING, 1 TAB. IN AFTERNOON AND 2 TABS. BEDTIME DICLEGIS Yes [id number] TAKE 2 Uni vers 10-10 mg 7-06 TABLETS BY ity o f per tablet 00:00: MOUTH AT [place] 00 BEDTIME IF Medical NO RELIEF Branch ON DAY 3 TAKE 1 TAB. IN THE MORNING AND 2 TABS. AT BEDTIME, NO RELIEF DAY 4 TAKE 1 TAB. MORNING, 1 TAB. IN AFTERNOON AND 2 TABS. BEDTIME DICLEGIS 0 Yes [id number] TAKE 2 Uni vers 10-10 mg 7-06 TABLETS BY ity o f per tablet 00:00: MOUTH AT [place] 00 BEDTIME IF Medical NO RELIEF Branch ON DAY 3 TAKE 1 TAB. IN THE MORNING AND 2 TABS. AT BEDTIME, NO RELIEF DAY 4 TAKE 1 TAB. MORNING, 1 TAB. IN AFTERNOON AND 2 TABS. BEDTIME DICLEGIS Yes [id number] TAKE 2 Uni vers 10-10 mg 7-06 TABLETS BY ity o f per tablet 00:00: MOUTH AT [place] 00 BEDTIME IF Medical NO RELIEF Branch ON DAY 3 TAKE 1 TAB. IN THE MORNING AND 2 TABS. AT BEDTIME, NO RELIEF DAY 4 TAKE 1 TAB. MORNING, 1 TAB. IN AFTERNOON AND 2 TABS. BEDTIME metroNIDAZO 2022- Yes [id number] 500mg Take 1 Univers LE 500 mg 6-08 19-13 tablet by ity of tablet 00:00: 04:59 mouth in [place] 00 :00 the Medical morning Branch and 1 tablet in the evening. Do all this for 7 days. enoxaparin 2022- No [id number] 40mg inject 0.4 Univers (LOVENOX) 4-17 10-15 mL under ity o f 40 mg/0.4 00:00: 04:59 the skin [place] mL 00 :00 in the Medical injection morning Branch for 180 days. enoxaparin 2022- No [id number] 40mg inject 0.4 Univers (LOVENOX) 4-17 10-15 mL under ity o f 40 mg/0.4 00:00: 04:59 the skin [place] mL 00 :00 in the Medical injection morning Branch for 180 days. enoxaparin 2022- No [id number] 40mg inject 0.4 Univers (LOVENOX) 4-17 10-15 mL under ity o f 40 mg/0.4 00:00: 04:59 the skin [place] mL 00 :00 in the Medical injection morning Branch for 180 days. enoxaparin 2022-2022- No [id number] 40mg inject 0.4 Univers (LOVENOX) 4-17 10-15 mL under ity o f 40 mg/0.4 00:00: 04:59 the skin [place] mL 00 :00 in the Medical injection morning Branch for 180 days. enoxaparin 2022-2022- No [id number] 40mg inject 0.4 Univers (LOVENOX) 4-17 10-15 mL under ity o f 40 mg/0.4 00:00: 04:59 the skin [place] mL 00 :00 in the Medical injection morning Branch for 180 days. enoxaparin 2022-2022- No [id number] 40mg inject 0.4 Univers (LOVENOX) 4-17 10-15 mL under ity o f 40 mg/0.4 00:00: 04:59 the skin [place] mL 00 :00 in the Medical injection morning Branch for 180 days. enoxaparin 2022-2022- No [id number] 40mg inject 0.4 Univers (LOVENOX) 4-17 10-15 mL under ity o f 40 mg/0.4 00:00: 04:59 the skin [place] mL 00 :00 in the Medical injection morning Branch for 180 days. enoxaparin 2022-2022- No [id number] 40mg inject 0.4 Univers (LOVENOX) 4-17 10-15 mL under ity o f 40 mg/0.4 00:00: 04:59 the skin [place] mL 00 :00 in the Medical injection morning Branch for 180 days. enoxaparin 2022-2022- No [id number] 40mg inject 0.4 Univers (LOVENOX) 4-17 10-15 mL under ity o f 40 mg/0.4 00:00: 04:59 the skin [place] mL 00 :00 in the Medical injection morning Branch for 180 days. enoxaparin 2022-2022- No [id number] 40mg inject 0.4 Univers (LOVENOX) 4-17 10-15 mL under ity o f 40 mg/0.4 00:00: 04:59 the skin [place] mL 00 :00 in the Medical injection morning Branch for 180 days. enoxaparin 2022-2022- No [id number] 40mg inject 0.4 Univers (LOVENOX) 4-17 10-15 mL under ity o f 40 mg/0.4 00:00: 04:59 the skin [place] mL 00 :00 in the Medical injection morning Branch for 180 days. enoxaparin 2022-2022- No [id number] 40mg inject 0.4 Univers (LOVENOX) 4-17 10-15 mL under ity o f 40 mg/0.4 00:00: 04:59 the skin [place] mL 00 :00 in the Medical injection morning Branch for 180 days. enoxaparin 2022-0 2022- No [id number] 40mg inject 0.4 Univers (LOVENOX) 4-17 10-15 mL under ity o f 40 mg/0.4 00:00: 04:59 the skin [place] mL 00 :00 in the Medical injection morning Branch for 180 days. enoxaparin 2022-2022- No [id number] 40mg inject 0.4 Univers (LOVENOX) 4-17 10-15 mL under ity o f 40 mg/0.4 00:00: 04:59 the skin [place] mL 00 :00 in the Medical injection morning Branch for 180 days. enoxaparin 2022-2022- No [id number] 40mg inject 0.4 Univers (LOVENOX) 4-17 10-15 mL under ity o f 40 mg/0.4 00:00: 04:59 the skin [place] mL 00 :00 in the Medical injection morning Branch for 180 days. enoxaparin 2022-2022- No [id number] 40mg inject 0.4 Univers (LOVENOX) 4-17 10-15 mL under ity o f 40 mg/0.4 00:00: 04:59 the skin [place] mL 00 :00 in the Medical injection morning Branch for 180 days. enoxaparin 2022-2022- No [id number] 40mg inject 0.4 Univers (LOVENOX) 4-17 10-15 mL under ity o f 40 mg/0.4 00:00: 04:59 the skin [place] mL 00 :00 in the Medical injection morning Branch for 180 days. enoxaparin 2022- No [id number] 40mg inject 0.4 Univers (LOVENOX) 4-17 10-15 mL under ity o f 40 mg/0.4 00:00: 04:59 the skin [place] mL 00 :00 in the Medical injection morning Branch for 180 days. enoxaparin 2022- No [id number] 40mg inject 0.4 Univers (LOVENOX) 4-17 10-15 mL under ity o f 40 mg/0.4 00:00: 04:59 the skin [place] mL 00 :00 in the Medical injection morning Branch for 180 days. enoxaparin 2022- No [id number] 40mg inject 0.4 Univers (LOVENOX) 4-17 10-15 mL under ity o f 40 mg/0.4 00:00: 04:59 the skin [place] mL 00 :00 in the Medical injection morning Branch for 180 days. enoxaparin 2022- No [id number] 40mg inject 0.4 Univers (LOVENOX) 4-17 10-15 mL under ity o f 40 mg/0.4 00:00: 04:59 the skin [place] mL 00 :00 in the Medical injection morning Branch for 180 days. enoxaparin 2022- No [id number] 40mg inject 0.4 Univers (LOVENOX) 4-17 10-15 mL under ity o f 40 mg/0.4 00:00: 04:59 the skin [place] mL 00 :00 in the Medical injection morning Branch for 180 days. enoxaparin 2022- No [id number] 40mg inject 0.4 Univers (LOVENOX) 4-17 10-15 mL under ity o f 40 mg/0.4 00:00: 04:59 the skin [place] as mL 00 :00 in the Medical injection morning Branch for 180 days. enoxaparin 2022- No [id number] 40mg inject 0.4 Univers (LOVENOX) 4-17 10-15 mL under ity o f 40 mg/0.4 00:00: 04:59 the skin [place] mL 00 :00 in the Medical injection morning Branch for 180 days. enoxaparin 2022- No [id number] 40mg inject 0.4 Univers (LOVENOX) 4-17 10-15 mL under ity o f 40 mg/0.4 00:00: 04:59 the skin [place] mL 00 :00 in the Medical injection morning Branch for 180 days. enoxaparin 2022- No [id number] 40mg inject 0.4 Univers (LOVENOX) 4-17 10-15 mL under ity o f 40 mg/0.4 00:00: 04:59 the skin [place] mL 00 :00 in the Medical injection morning Branch for 180 days. enoxaparin 2022- No [id number] 40mg inject 0.4 Univers (LOVENOX) 4-17 10-15 mL under ity o f 40 mg/0.4 00:00: 04:59 the skin [place] mL 00 :00 in the Medical injection morning Branch for 180 days. enoxaparin 2022- No [id number] 40mg inject 0.4 Univers (LOVENOX) 4-17 10-15 mL under ity o f 40 mg/0.4 00:00: 04:59 the skin [place] mL 00 :00 in the Medical injection morning Branch for 180 days. 2022- [facility]14 mouth. ity of no.124/iron 15:09: 00:00 [place] /folic 24 :00 Medical ( Branch VITAMIN ORAL) doxylamine- Yes [id number] 2{tbl} Take 2 Univers pyridoxine, 4-14 tablets by it y of vit B6, 00:00: mouth at [place] ([facility]) 00 bedtime. Medic al 10-10 mg Branch per tablet doxylamine- Yes [id number] 2{tbl} Take 2 Univers pyridoxine, 4-14 tablets by it y of vit B6, 00:00: mouth at [place] [facility]) 00 bedtime. Medic al 10-10 mg Branch per tablet doxylamine- Yes [id number] 2{tbl} Take 2 Univers pyridoxine, 4-14 tablets by it y of vit B6, 00:00: mouth at [place] [facility]) 00 bedtime. Medic al 10-10 mg Branch per tablet Yes [id number] 1{tbl} Take 1 U nivers vitamin 4-14 tablet by ity of w/FA tablet 00:00: mouth in [place] 00 the Medical morning. Branch doxylamine- Yes [id number] 2{tbl} Take 2 Univers pyridoxine, 4-14 tablets by it y of vit B6, 00:00: mouth at [place] ([facility]) 00 bedtime. Medic al 10-10 mg Branch per tablet Yes [id number] 1{tbl} Take 1 U nivers vitamin 4-14 tablet by ity of w/FA tablet 00:00: mouth in [place] 00 the Medical morning. Branch doxylamine- Yes [id number] 2{tbl} Take 2 Univers pyridoxine, 4-14 tablets by it y of vit B6, 00:00: mouth at [place] ([facility]) 00 bedtime. Medic al 10-10 mg Branch per tablet Yes [id number] 1{tbl} Take 1 U nivers vitamin 4-14 tablet by ity of w/FA tablet 00:00: mouth in [place] 00 the Medical morning. Branch doxylamine- Yes [id number] 2{tbl} Take 2 Univers pyridoxine, 4-14 tablets by it y of vit B6, 00:00: mouth at [place] ([facility]) 00 bedtime. Medic al 10-10 mg Branch per tablet Yes [id number] 1{tbl} Take 1 U nivers vitamin 4-14 tablet by ity of w/FA tablet 00:00: [place] the Medical morning. Branch doxylamine- Yes [id number] 2{tbl} Take 2 [facility] pyridoxine, 4-14 tablets by it y of vit B6, 00:00: mouth [facility] [place] [facility] 00 bedtime. Medic al 10-10 mg Branch per tablet Yes [id number] 1{tbl} Take 1 [facility] vitamin 4-14 tablet by ity of w/FA tablet 00:00: mouth in [place] 00 the Medical morning. Branch doxylamine- Yes [id number] 2{tbl} Take 2 [facility] pyridoxine, 4-14 tablets by it y of vit B6, 00:00: mouth at [place] ([facility]) 00 bedtime. Medic al 10-10 mg Branch per tablet Yes [id number] 1{tbl} Take 1 [facility] vitamin 4-14 tablet by ity of w/FA tablet 00:00: mouth in [place] 00 the Medical morning. Branch doxylamine- Yes [id number] 2{tbl} Take 2 [facility] pyridoxine, 4-14 tablets by it y of vit B6, 00:00: [facility] [place] [facility]. Medic al 10-10 mg Branch per tablet Yes [id number] 1{tbl} Take 1 [facility] vitamin 4-14 tablet by ity of w/FA tablet 00:00: mouth in [place] 00 the Medical morning. Branch doxylamine- Yes [id number] 2{tbl} Take 2 [facility] pyridoxine, 4-14 tablets by it y of vit B6, 00:00: mouth at [place] ([facility]) 00 bedtime. Medic al 10-10 mg Branch per tablet Yes [id number] 1{tbl} Take 1 [facility] vitamin 4-14 tablet by ity of w/FA tablet 00:00: mouth in [place] 00 the Medical morning. Branch doxylamine- Yes [id number] 2{tbl} Take 2 [facility] pyridoxine, 4-14 tablets by it y of vit B6, 00:00: mouth at [place] ([facility]) 00 bedtime. Medic al 10-10 mg Branch per tablet Yes [id number] 1{tbl} Take 1 [facility] vitamin 4-14 tablet by ity of w/FA tablet 00:00: mouth in [place] 00 the Medical morning. Branch doxylamine- Yes [id number] 2{tbl} Take 2 [facility] pyridoxine, 4-14 tablets by it y of vit B6, 00:00: mouth at [place] ([facility] 00 bedtime. Medic al 10-10 mg Branch per tablet Yes [id number] 1{tbl} Take 1 [facility] vitamin 4-14 tablet by ity of w/FA tablet 00:00: mouth in [place] 00 the Medical morning. [place] doxylamine- Yes [id number] 2{tbl} Take 2 [facility] pyridoxine, 4-14 tablets by it y of vit B6, 00:00: mouth at [place] ([facility] 00 bedtime. Medic al 10-10 mg Branch per tablet Yes [id number] 1{tbl} Take 1 [facility] n[facility] vitamin 4-14 tablet by ity of w/FA tablet 00:00: mouth in [place] 00 the Medical morning. Branch [facility] Yes [id number] 1{tbl} Take 1 [facility] vitamin 4-14 tablet by ity of w/FA tablet 00:00: mouth in [place] 00 the Medical morning. [facility] Yes [id number] 1{tbl} Take 1 [facility] nivers vitamin 4-14 tablet by ity of w/FA tablet 00:00: mouth in [place] 00 the Medical morning. [facility] Yes [id number] 1{tbl} Take 1 [facility] nivers vitamin 4-14 tablet by ity of w/FA tablet 00:00: mouth in [place] 00 the Medical morning. [facility] Yes [id number] 1{tbl} Take 1 [facility] nivers vitamin 4-14 tablet by ity of w/FA tablet 00:00: mouth in [place] 00 the Medical morning. [facility] Yes [id number] 1{tbl} Take 1 [facility] vitamin 4-14 tablet by ity of w/FA tablet 00:00: mouth in [place] 00 the Medical morning. [facility] Yes [id number] 1{tbl} Take 1 [facility] nivers vitamin 4-14 tablet by ity of w/FA tablet 00:00: mouth in [place] 00 the Medical morning. [facility] Yes [id number] 1{tbl} Take 1 [facility] nivers vitamin 4-14 tablet by ity of w/FA tablet 00:00: mouth in [place] 00 the Medical morning. [facility] Yes [id number] 1{tbl} Take 1 U nivers vitamin 4-14 tablet by ity of w/FA tablet 00:00: mouth in [place] 00 the Medical morning. [facility] Yes [id number] 1{tbl} Take 1 [facility] nivers vitamin 4-14 tablet by ity of w/FA tablet 00:00: mouth in [place] 00 the Medical morning. [facility] Yes [id number] 1{tbl} Take 1 [facility] nivers vitamin 4-14 tablet by ity of w/FA tablet 00:00: mouth in [place] 00 the Medical morning. [facility] Yes [id number] 1{tbl} Take 1 [facility] nivers vitamin 4-14 tablet by ity of w/FA tablet 00:00: mouth in [place] 00 the Medical morning. [facility] Yes [id number] 1{tbl} Take 1 [facility] vitamin 4-14 tablet by ity of w/FA tablet 00:00: mouth in [place] 00 the Medical morning. [facility] Yes [id number] 1{tbl} Take 1 [facility] nivers vitamin 4-14 tablet by ity of w/FA tablet 00:00: mouth in [place] 00 the Medical morning. [facility] Yes [id number] 1{tbl} Take 1 [facility] nivers vitamin 4-14 tablet by ity of w/FA tablet 00:00: mouth in [place] 00 the Medical morning. [facility] Yes [id number] 1{tbl} Take 1 U nivers vitamin 4-14 tablet by ity of w/FA tablet 00:00: mouth in [place] 00 the Medical morning. [facility] Yes [id number] 1{tbl} Take 1 [facility] nivers vitamin 4-14 tablet by ity of w/FA tablet 00:00: mouth [place] 00 the Medical morning. [facility] Yes [id number] 1{tbl} Take 1 [facility] nivers vitamin 4-14 tablet by ity of w/FA tablet 00:00: mouth in [place] 00 the Medical morning. [facility] Yes [id number] 1{tbl} Take 1 U nivers vitamin 4-14 tablet by ity of w/FA tablet 00:00: mouth [place] 00 the Medical morning. [place] doxylamine- 2022- No [id number] 2{tbl} Take 2 [facility] pyridoxine, 4-14 07-06 tablets by i ty of vit B6, 00:00: 00:00 mouth at [place] ([facility]) 00 :00 bedtime. Medic al 10-10 mg Branch per tablet proMETHazin 2022-0 Yes [id number] 25mg Take 1 [facility] e 25 mg 4-10 tablet by ity of tablet 00:00: mouth [place] 00 every 6 Medical (six) Branch hours as needed for Nausea and Vomiting (N/V). 2022-0 Yes [id number] 1{tbl} Take 1 [facility] vitamin 4-10 tablet by ity of w/FA tablet 00:00: mouth in [place] 00 the Medical morning. Branch proMETHazin Yes [id number] 25mg Take 1 [facility] e 25 mg 4-10 tablet by ity of tablet 00:00: mouth [place] 00 every 6 Medical (six) Branch hours as needed for Nausea and Vomiting (N/V). 2022-0 Yes [id number] 1{tbl} Take 1 [facility] nivers vitamin 4-10 tablet by ity of w/FA tablet 00:00: mouth in [place] 00 the Medical morning. Branch proMETHazin Yes [id number] 25mg Take 1 [facility] e 25 mg 4-10 tablet by ity of tablet 00:00: mouth [place] 00 every 6 Medical (six) Branch hours as needed for Nausea and Vomiting (N/V). 2022-0 Yes [id number] 1{tbl} Take 1 [facility] nivers vitamin 4-10 tablet by ity of w/FA tablet 00:00: mouth in [place] 00 the Medical morning. Branch proMETHazin 2022-0 Yes [id number] 25mg Take 1 [facility] e 25 mg 4-10 tablet by ity of tablet 00:00: mouth [place] 00 every 6 Medical (six) Branch hours as needed for Nausea and Vomiting (N/V). 2022-0 Yes [id number] 1{tbl} Take 1 [facility]ivers vitamin 4-10 tablet by ity of w/FA tablet 00:00: mouth in [place] 00 the Medical morning. Branch proMETHazin 2022-0 Yes [id number] 25mg Take 1 [facility] e 25 mg 4-10 tablet by ity of tablet 00:00: mouth [place] 00 every 6 Medical (six) Branch hours as needed for Nausea and Vomiting (N/V). 2022-0 Yes [id number] 1{tbl} Take 1 [facility]ivers vitamin 4-10 tablet by ity of w/FA tablet 00:00: mouth in [place] 00 the Medical morning. Branch proMETHazin 2022-0 Yes [id number] 25mg Take 1 [facility] e 25 mg 4-10 tablet by ity of tablet 00:00: mouth [place] 00 every 6 Medical (six) Branch hours as needed for Nausea and Vomiting (N/V). proMETHazin 2022-0 Yes [id number] 25mg Take 1 [facility] e 25 mg 4-10 tablet by ity of tablet 00:00: mouth [place] 00 every 6 Medical (six) Branch hours as needed for Nausea and Vomiting (N/V). proMETHazin 2022-0 Yes [id number] 25mg Take 1 [facility] e 25 mg 4-10 tablet by ity of tablet 00:00: mouth [place] 00 every 6 Medical (six) Branch hours as needed for Nausea and Vomiting (N/V). proMETHazin 2022-0 Yes [id number] 25mg Take 1 [facility] e 25 mg 4-10 tablet by ity of tablet 00:00: mouth [place] 00 every 6 Medical (six) Branch hours as needed for Nausea and Vomiting (N/V). proMETHazin 2022-0 Yes [id number] 25mg Take 1 [facility] e 25 mg 4-10 tablet by ity of tablet 00:00: mouth [place] 00 every 6 Medical (six) Branch hours as needed for Nausea and Vomiting (N/V). proMETHazin 2022-0 Yes [id number] 25mg Take 1 [facility] e 25 mg 4-10 tablet by ity of tablet 00:00: mouth [place] 00 every 6 Medical (six) Branch hours as needed for Nausea and Vomiting (N/V). proMETHazin 2022-0 Yes [id number] 25mg Take 1 [facility] e 25 mg 4-10 tablet by ity of tablet 00:00: mouth [place] 00 every 6 Medical (six) Branch hours as needed for Nausea and Vomiting (N/V). proMETHazin 2022-0 Yes [id number] 25mg Take 1 [facility] e 25 mg 4-10 tablet by ity of tablet 00:00: mouth [place] 00 every 6 Medical (six) Branch hours as needed for Nausea and Vomiting (N/V). proMETHazin 2022- No [id number] 25mg Take 1 [facility] e 25 mg 10 06-05 tablet by ity of tablet 00:00: 00:00 mouth [place] 00 :00 every 6 Medical (six) Branch hours as needed for Nausea and Vomiting (N/V). 2022- No [id number] 1{tbl} Take 1 [facility] vitamin 4-10 04-14 tablet by ity of w/FA tablet 00:00: 00:00 mouth in [place] 00 :00 the Medical morning. Branch miSOPROStoL 2021-04- No [id number] 800ug Univers (CYTOTEC) 06-12 ity of tablet 800 22:30: 22:26 [place] mcg 00 :00 [facility] miSOPROStoL 2021-04- No [id number] 800ug 800 mcg, Univers (CYTOTEC) 06-12 Oral, ity of tablet 800 22:30: 22:26 ONCE, 1 [place] mcg 00 :00 dose, On [facility] 04/11/22 at 1630, Routine miSOPROStoL 2021-04- No [id number] 800ug [facility] (CYTOTEC) 06-12 ity of tablet 800 22:30: 22:26 [place] mcg 00 :00 [facility] miSOPROStoL 2021-04- No [id number] 800ug 800 mcg, Univers (CYTOTEC) 06-12 Oral, ity of tablet 800 22:30: 22:26 ONCE, 1 [place] mcg 00 :00 dose, On [facility] 04/11/22 at 1630, Routine NaCl 0.9% 2021-04- No 1000mL at 999 Uni vers (NS) bolus 05-25- mL/hr, ity of infusion 01:00: 00:55 1,000 mL, [place] 1,000 mL 00 :00 IV Medical Infusion, Branch ONCE, 1 dose, On [place] 03/23/22 at 1900, STAT iopamidol 2021-04- No [id number] 65mL 65 mL, U nivers (ISOVUE 05-24-08 Intravenou ity o f 370-500 mL) 22:28: 22:29 s, ONCE, 1 [place] injection 00 :00 dose, On [facility] l 65 mL [place] Branch 03/23/22 at 1645, Routine ondansetron 2021-04 Yes [id number] 8mg Take 1 [facility] 8 mg 1-20 tablet by ity of disintegrat 00:00: mouth [place] ing tablet 00 every 8 Medica l (eight) Branch hours as needed for Nausea and Vomiting (N/V). ondansetron 2021-04 Yes [id number] 8mg Take 1 [facility] 8 mg 1-20 tablet by ity of disintegrat 00:00: mouth [place] ing tablet 00 every 8 Medica l (eight) Branch hours as needed for Nausea and Vomiting (N/V). ondansetron 2021-04 Yes [id number] 8mg Take 1 [facility] 8 mg 1-20 tablet by ity of disintegrat 00:00: mouth [place] ing tablet 00 every 8 Medica l (eight) Branch hours as needed for Nausea and Vomiting (N/V). ondansetron 2021-04 Yes [id number] 8mg Take 1 [facility] 8 mg 1-20 tablet by ity of disintegrat 00:00: mouth [place] ing tablet 00 every 8 Medica l (eight) Branch hours as needed for Nausea and Vomiting (N/V). ondansetron 2021-04 Yes [id number] 8mg Take 1 [facility] 8 mg 1-20 tablet by ity of disintegrat 00:00: mouth [place] ing tablet 00 every 8 Medica l (eight) Branch hours as needed for Nausea and Vomiting (N/V). ondansetron 2021-04 Yes [id number] 8mg Take 1 [facility] 8 mg 1-20 tablet by ity of disintegrat 00:00: mouth [place] ing tablet 00 every 8 Medica l (eight) Branch hours as needed for Nausea and Vomiting (N/V). ondansetron 2021-04 Yes [id number] 8mg Take 1 [facility] 8 mg 1-20 tablet by ity of disintegrat 00:00: mouth [place] ing tablet 00 every 8 Medica l (eight) Branch hours as needed for Nausea and Vomiting (N/V). ondansetron 2021-04 Yes [id number] 8mg Take 1 [facility] 8 mg 1-20 tablet by ity of disintegrat 00:00: mouth [place] ing tablet 00 every 8 Medica l (eight) Branch hours as needed for Nausea and Vomiting (N/V). ondansetron 2021-04 Yes [id number] 8mg Take 1 [facility] 8 mg 1-20 tablet by ity of disintegrat 00:00: mouth [place] ing tablet 00 every 8 Medica l (eight) Branch hours as needed for Nausea and Vomiting (N/V). ondansetron 2021-04 Yes [id number] 8mg Take 1 [facility] 8 mg 1-20 tablet by ity of disintegrat 00:00: mouth [place] ing tablet 00 every 8 Medica l (eight) Branch hours as needed for Nausea and Vomiting (N/V). ondansetron 2021-04 Yes [id number] 8mg Take 1 [facility] 8 mg 1-20 tablet by ity of disintegrat 00:00: mouth [place] ing tablet 00 every 8 Medica l (eight) Branch hours as needed for Nausea and Vomiting (N/V). ondansetron 2021-04 Yes [id number] 8mg Take 1 [facility] 8 mg 1-20 tablet by ity of disintegrat 00:00: mouth [place] ing tablet 00 every 8 Medica l (eight) Branch hours as needed for Nausea and Vomiting (N/V). ondansetron 2021-04 Yes [id number] 8mg Take 1 [facility] 8 mg 1-20 tablet by ity of disintegrat 00:00: mouth [place] ing tablet 00 every 8 Medica l (eight) Branch hours as needed for Nausea and Vomiting (N/V). ondansetron 2021-04 Yes [id number] 8mg Take 1 [facility] 8 mg 1-20 tablet by ity of disintegrat 00:00: mouth [place] ing tablet 00 every 8 Medica l (eight) Branch hours as needed for Nausea and Vomiting (N/V). ondansetron 2021-04 Yes [id number] 8mg Take 1 [facility] 8 mg 1-20 tablet by ity of disintegrat 00:00: mouth [place] ing tablet 00 every 8 Medica l (eight) Branch hours as needed for Nausea and Vomiting (N/V). ondansetron 2021-04 Yes [id number] 8mg Take 1 [facility] 8 mg 1-20 tablet by ity of disintegrat 00:00: mouth [place] ing tablet 00 every 8 Medica l (eight) Branch hours as needed for Nausea and Vomiting (N/V). ondansetron 2021-04 Yes [id number] 8mg Take 1 [facility] 8 mg 1-20 tablet by ity of disintegrat 00:00: mouth [place] ing tablet 00 every 8 Medica l (eight) Branch hours as needed for Nausea and Vomiting (N/V). ondansetron 2021-04 Yes [id number] 8mg Take 1 [facility] 8 mg 1-20 tablet by ity of disintegrat 00:00: mouth [place] ing tablet 00 every 8 Medica l (eight) Branch hours as needed for Nausea and Vomiting (N/V). ondansetron 2021-04 Yes [id number] 8mg Take 1 [facility] 8 mg 1-20 tablet by ity of disintegrat 00:00: mouth [place] ing tablet 00 every 8 Medica l (eight) Branch hours as needed for Nausea and Vomiting (N/V). ondansetron 2021-04 Yes [id number] 8mg Take 1 [facility] 8 mg 1-20 tablet by ity of disintegrat 00:00: mouth [place] ing tablet 00 every 8 Medica l (eight) Branch hours as needed for Nausea and Vomiting (N/V). ondansetron 2021-04 Yes [id number] 8mg Take 1 [facility] 8 mg 1-20 tablet by ity of disintegrat 00:00: mouth [place] ing tablet 00 every 8 Medica l (eight) Branch hours as needed for Nausea and Vomiting (N/V). ondansetron 2021-04 Yes [id number] 8mg Take 1 [facility] 8 mg 1-20 tablet by ity of disintegrat 00:00: mouth [place] ing tablet 00 every 8 Medica l (eight) Branch hours as needed for Nausea and Vomiting (N/V). ondansetron 2021-04 Yes [id number] 8mg Take 1 [facility] 8 mg 1-20 tablet by ity of disintegrat 00:00: mouth [place] ing tablet 00 every 8 Medica l (eight) Branch hours as needed for Nausea and Vomiting (N/V). ondansetron 2021-04 Yes [id number] 8mg Take 1 [facility] 8 mg 1-20 tablet by ity of disintegrat 00:00: mouth [place] ing tablet 00 every 8 Medica l (eight) Branch hours as needed for Nausea and Vomiting (N/V). ondansetron 2021-04 Yes [id number] 8mg Take 1 [facility] 8 mg 1-20 tablet by ity of disintegrat 00:00: mouth [place] ing tablet 00 every 8 Medica l (eight) Branch hours as needed for Nausea and Vomiting (N/V). ondansetron 2021-04 Yes [id number] 8mg Take 1 [facility] 8 mg 1-20 tablet by ity of disintegrat 00:00: mouth [place] ing tablet 00 every 8 Medica l (eight) Branch hours as needed for Nausea and Vomiting (N/V). ondansetron 2021-04 Yes [id number] 8mg Take 1 [facility] 8 mg 1-20 tablet by ity of disintegrat 00:00: mouth [place] ing tablet 00 every 8 Medica l (eight) Branch hours as needed for Nausea and Vomiting (N/V). ondansetron 2021-04 Yes [id number] 8mg Take 1 [facility] 8 mg 1-20 tablet by ity of disintegrat 00:00: mouth [place] ing tablet 00 every 8 Medica l (eight) Branch hours as needed for Nausea and Vomiting (N/V). ondansetron 2021-04 Yes [id number] 8mg Take 1 [facility] 8 mg 1-20 tablet by ity of disintegrat 00:00: mouth [place] ing tablet 00 every 8 Medica l (eight) Branch hours as needed for Nausea and Vomiting (N/V). ondansetron 2021-04 Yes [id number] 8mg Take 1 [facility] 8 mg 1-20 tablet by ity of disintegrat 00:00: mouth [place] ing tablet 00 every 8 Medica l (eight) Branch hours as needed for Nausea and Vomiting (N/V). ondansetron 2021-04- No [id number] 8mg Take 1 [facility] 8 mg 1-20 04-10 tablet by ity of disintegrat 00:00: 00:00 [place] tablet 00 :00 every 8 Medica l (eight) Branch hours as needed for Nausea and Vomiting (N/V). 2021-04 Yes Take by [employer] s vit 1-09 mouth. ity of no.124/iron 15:57: [place] /folic 04 Medical ( Branch VITAMIN ORAL) 2021-04 Yes Take by [employer] s vit 1-09 mouth. ity of no.124/iron 15:57: [place] /folic 04 Medical ( Branch VITAMIN ORAL) 2021-04 Yes Take by [employer] s vit 1-09 mouth. ity of no.124/iron 15:57: [place] /folic 04 Medical ( Branch VITAMIN ORAL) 2021-04 Yes Take by [facility] s vit 1-09 mouth. ity of no.124/iron 15:57: [place] /folic 04 Medical ( Branch VITAMIN ORAL) 2021-04 Yes Take by [facility] s vit 1-09 mouth. ity of no.124/iron 15:57: [place] /folic 04 Medical ( Branch VITAMIN ORAL) 2021-04 Yes Take by [facility] s vit 1-09 mouth. ity of no.124/iron 15:57: [place] /folic 04 Medical ( Branch VITAMIN ORAL) 2021-04 Yes Take by [facility] s vit 1-09 mouth. ity of no.124/iron 15:57: [place] /folic 04 Medical ( Branch VITAMIN ORAL) 2021-04 Yes Take by [facility] s vit 1-09 mouth. ity of no.124/iron 15:57: [place] /folic 04 Medical ( Branch VITAMIN ORAL) 2021-04 Yes Take by [facility]iver s vit 1-09 mouth. ity of no.124/iron 15:57: [place] /folic 04 Medical ( Branch VITAMIN ORAL) 2021-04 Yes Take by [facility] s vit 1-09 mouth. ity of no.124/iron 15:57: [place] /folic 04 Medical ( Branch VITAMIN ORAL) 2021-04 Yes Take by [facility] s vit 1-09 mouth. ity of no.124/iron 15:57: [place] /folic 04 Medical ( Branch VITAMIN ORAL) 2021-04 Yes Take by [facility] s vit 1-09 mouth. ity of no.124/iron 15:57: [place] /folic 04 Medical ( Branch VITAMIN ORAL) 2021-04 Yes Take by [facility] s vit 1-09 mouth. ity of no.124/iron 15:57: [place] /folic 04 Medical ( Branch VITAMIN ORAL) 2021-04 Yes Take by [facility] s vit 1-09 mouth. ity of no.124/iron 15:57: [place] /folic 04 Medical ( Branch VITAMIN ORAL) 2021-04 Yes Take by [facility] s vit 1-09 mouth. ity of no.124/iron 15:57: [place] /folic 04 Medical ( Branch VITAMIN ORAL) 2021-04 Yes Take by [facility] s vit 1-09 mouth. ity of no.124/iron 15:57: [place] /folic 04 Medical ( Branch VITAMIN ORAL) 2021-04 Yes Take by [facility] s vit 1-09 mouth. ity of no.124/iron 15:57: [place] /folic 04 Medical ( Branch VITAMIN ORAL) 2021-04 Yes Take by [facility] s vit 1-09 mouth. ity of no.124/iron 15:57: [place] /folic 04 Medical ( Branch VITAMIN ORAL) 2021-04 Yes Take by [facility] s vit 1-09 mouth. ity of no.124/iron 15:57: [place] /folic 04 Medical ( Branch VITAMIN ORAL) 2021-04 Yes Take by [employer] s vit 1-09 mouth. ity of no.124/iron 15:57: [place] /folic 04 Medical ( Branch VITAMIN ORAL) 2021-04 Yes Take by [facility] s vit 1-09 mouth. ity of no.124/iron 15:57: [place] /folic 04 Medical ( Branch VITAMIN ORAL) 2021-04 Yes Take by [employer] s vit 1-09 mouth. ity of no.124/iron 15:57: [place] /folic 04 Medical ( Branch VITAMIN ORAL) 2021-04 Yes Take by [employer] s vit 1-09 mouth. ity of no.124/iron 15:57: [place] /folic 04 Medical ( Branch VITAMIN ORAL) 2021-04 Yes Take by [employer] s vit 1-09 mouth. ity of no.124/iron 15:57: [place] /folic 04 Medical ( Branch VITAMIN ORAL) 2021-04 Yes Take by [employer] s vit 1-09 mouth. ity of no.124/iron 15:57: [place] /folic 04 Medical ( Branch VITAMIN ORAL) 2021-04 Yes Take by [employer] s vit 1-09 mouth. ity of no.124/iron 15:57: [place] /folic 04 Medical ( Branch VITAMIN ORAL) 2021-04 Yes Take by [facility] s vit 1-09 mouth. ity of no.124/iron 15:57: [place] /folic 04 Medical ( Branch VITAMIN ORAL) 2021-04 Yes Take by [employer] s vit 1-09 mouth. ity of no.124/iron 15:57: [place] /folic 04 Medical ( Branch VITAMIN ORAL) 2021-04 Yes Take by [facility] s vit 1-09 mouth. ity of no.124/iron 15:57: [place] /folic 04 Medical ( Branch VITAMIN ORAL) 2021-04 Yes Take by [facility] s vit 1-09 mouth. ity of no.124/iron 15:57: [place] /folic 04 Medical ( Branch VITAMIN ORAL) 2021-04 Yes Take by [facility] s vit 1-09 mouth. ity of no.124/iron 15:57: [place] /folic 04 Medical ( Branch VITAMIN ORAL) 2021-04 Yes Take by [facility] s vit 1-09 mouth. ity of no.124/iron 15:57: [place] /folic 04 Medical ( Branch VITAMIN ORAL) 2021-04 Yes Take by [facility] s vit 1-09 mouth. ity of no.124/iron 15:57: [place] /folic 04 Medical ( Branch VITAMIN ORAL) 2021-04 Yes Take by [facility] s vit 1-09 mouth. ity of no.124/iron 15:57: [place] /folic 04 Medical ( Branch VITAMIN ORAL) 2021-04 Yes Take by [facility] s vit 1-09 mouth. ity of no.124/iron 15:57: [place] /folic 04 Medical ( Branch VITAMIN ORAL) 2021-04 Yes Take by [facility] s vit 1-09 mouth. ity of no.124/iron 15:57: [place] /folic 04 Medical ( Branch VITAMIN ORAL) 2021-04 Yes Take by [facility] s vit 1-09 mouth. ity of no.124/iron 15:57: [place] /folic 04 Medical ( Branch VITAMIN ORAL) 2021-04 Yes Take by [facility] s vit 1-09 mouth. ity of no.124/iron 15:57: [place] /folic 04 Medical ( Branch VITAMIN ORAL) 2021-04 Yes Take by [facility] s vit 1-09 mouth. ity of no.124/iron 15:57: [place] /folic 04 Medical ( Branch VITAMIN ORAL) 2021-04 Yes Take by [facility] s vit 1-09 mouth. ity of no.124/iron 15:57: [place] /folic 04 Medical ( Branch VITAMIN ORAL) 2021-04 Yes Take by [facility] s vit 1-09 mouth. ity of no.124/iron 15:57: [place] /folic 04 Medical ( Branch VITAMIN ORAL) 2021-04 Yes Take by [employer] vit 1-09 mouth. ity of no.124/iron 15:57: [place] /folic 04 Medical ( Branch VITAMIN ORAL) 2021-04 Yes Take by [employer] vit 1-09 mouth. ity of no.124/iron 15:57: [place] /folic 04 Medical ( Branch VITAMIN ORAL) 2021-04 Yes Take by [employer] vit 1-09 mouth. ity of no.124/iron 15:57: [place] /folic 04 Medical ( Branch VITAMIN ORAL) metoclopram 2021-04 Yes [id number] 10mg Take 1 [facility] [place] HCl 10 1-09 tablet by ity of mg tablet 00:00: mouth [place] 00 every 6 Medical (six) Branch hours as needed for Nausea and Vomiting (N/V). metoclopram 2021-04 Yes [id number] 10mg Take 1 [facility] [place] HCl 10 1-09 tablet by ity of mg tablet 00:00: mouth [place] 00 every 6 Medical (six) Branch hours as needed for Nausea and Vomiting (N/V). metoclopram 2021-04 Yes [id number] 10mg Take 1 [facility] [place] HCl 10 1-09 tablet by ity of mg tablet 00:00: mouth [place] 00 every 6 Medical (six) Branch hours as needed for Nausea and Vomiting (N/V). metoclopram 2021-04 Yes [id number] 10mg Take 1 [facility] [place] HCl 10 1-09 tablet by ity of mg tablet 00:00: mouth [place] 00 every 6 Medical (six) Branch hours as needed for Nausea and Vomiting (N/V). metoclopram 2021-04 Yes [id number] 10mg Take 1 [facility] [place] HCl 10 1-09 tablet by ity of mg tablet 00:00: mouth [place] 00 every 6 Medical (six) Branch hours as needed for Nausea and Vomiting (N/V). metoclopram 2021-04 Yes [id number] 10mg Take 1 [facility] [place] HCl 10 1-09 tablet by ity of mg tablet 00:00: mouth [place] 00 every 6 Medical (six) Branch hours as needed for Nausea and Vomiting (N/V). metoclopram 2022-1 Yes [id number] 10mg Take 1 [facility] [place] HCl 10 1-09 tablet by ity of mg tablet 00:00: mouth [place] 00 every 6 Medical (six) Branch hours as needed for Nausea and Vomiting (N/V). metoclopram 2021- Yes [id number] 10mg Take 1 [facility] [place] HCl 10 1-09 tablet by ity of mg tablet 00:00: mouth [place] 00 every 6 Medical (six) Branch hours as needed for Nausea and Vomiting (N/V). metoclopram 2021- Yes [id number] 10mg Take 1 [facility] [place] HCl 10 1-09 tablet by ity of mg tablet 00:00: mouth [place] 00 every 6 Medical (six) Branch hours as needed for Nausea and Vomiting (N/V). metoclopram 2021- Yes [id number] 10mg Take 1 [facility] [place] HCl 10 1-09 tablet by ity of mg tablet 00:00: mouth [place] 00 every 6 Medical (six) Branch hours as needed for Nausea and Vomiting (N/V). metoclopram 2021- Yes [id number] 10mg Take 1 [facility] [place] HCl 10 1-09 tablet by ity of mg tablet 00:00: mouth [place] 00 every 6 Medical (six) Branch hours as needed for Nausea and Vomiting (N/V). metoclopram 2021- Yes [id number] 10mg Take 1 [facility] [place] HCl 10 1-09 tablet by ity of mg tablet 00:00: mouth [place] 00 every 6 Medical (six) Branch hours as needed for Nausea and Vomiting (N/V). metoclopram 2021- Yes [id number] 10mg Take 1 [facility] [place] HCl 10 1-09 tablet by ity of mg tablet 00:00: mouth [place] 00 every 6 Medical (six) Branch hours as needed for Nausea and Vomiting (N/V). metoclopram 2021- Yes [id number] 10mg Take 1 [facility] 10 1-09 tablet by [facility] mg tablet 00:00: mouth [place] 00 every 6 Medical (six) Branch hours as needed for Nausea and Vomiting (N/V). metoclopram 2021-1 Yes [id number] 10mg Take 1 [facility] 10 1-09 tablet by [facility] mg tablet 00:00: mouth [place] 00 every 6 Medical (six) Branch hours as needed for Nausea and Vomiting (N/V). metoclopram 2022-1 Yes [id number] 10mg Take 1 [facility] 10 1-09 tablet by [facility] mg tablet 00:00: mouth [place] 00 every 6 Medical (six) Branch hours as needed for Nausea and Vomiting (N/V). metoclopram 2021- Yes [id number] 10mg Take 1 [facility] 10 1-09 tablet by [facility] mg tablet 00:00: mouth [place] 00 every 6 Medical (six) Branch hours as needed for Nausea and Vomiting (N/V). metoclopram 2021- Yes [id number] 10mg Take 1 [facility] 10 1-09 tablet by [facility] mg tablet 00:00: mouth [place] 00 every 6 Medical (six) Branch hours as needed for Nausea and Vomiting (N/V). metoclopram 2021- Yes [id number] 10mg Take 1 [facility] 10 1-09 tablet by [facility] mg tablet 00:00: mouth [place] 00 every 6 Medical (six) Branch hours as needed for Nausea and Vomiting (N/V). metoclopram 2021- Yes [id number] 10mg Take 1 [facility] 10 1-09 tablet by [facility] mg tablet 00:00: mouth [place] 00 every 6 Medical (six) Branch hours as needed for Nausea and Vomiting (N/V). metoclopram 2021- Yes [id number] 10mg Take 1 [facility] 10 1-09 tablet by [facility] mg tablet 00:00: mouth [place] 00 every 6 Medical (six) Branch hours as needed for Nausea and Vomiting (N/V). metoclopram 2021- Yes [id number] 10mg Take 1 [facility] 10 1-09 tablet by [facility] mg tablet 00:00: mouth [place] 00 every 6 Medical (six) Branch hours as needed for Nausea and Vomiting (N/V). metoclopram 2021- Yes [id number] 10mg Take 1 [facility] 10 1-09 tablet by [facility] mg tablet 00:00: mouth [place] 00 every 6 Medical (six) Branch hours as needed for Nausea and Vomiting (N/V). metoclopram 2021- Yes [id number] 10mg Take 1 [facility] 10 1-09 tablet by [facility] mg tablet 00:00: mouth [place] 00 every 6 Medical (six) Branch hours as needed for Nausea and Vomiting (N/V). metoclopram 2022-1 Yes [id number] 10mg Take 1 [facility] 10 1-09 tablet by [facility] mg tablet 00:00: mouth [place] 00 every 6 Medical (six) Branch hours as needed for Nausea and Vomiting (N/V). metoclopram 2021-1 Yes [id number] 10mg Take 1 [facility] 10 1-09 tablet by [facility] mg tablet 00:00: mouth [place] 00 every 6 Medical (six) Branch hours as needed for Nausea and Vomiting (N/V). metoclopram 2021- Yes [id number] 10mg Take 1 [facility] 10 1-09 tablet by [facility] mg tablet 00:00: mouth [place] 00 every 6 Medical (six) Branch hours as needed for Nausea and Vomiting (N/V). metoclopram 2021- Yes [id number] 10mg Take 1 [facility] 10 1-09 tablet by [facility] mg tablet 00:00: mouth [place] 00 every 6 Medical (six) Branch hours as needed for Nausea and Vomiting (N/V). metoclopram 2021- Yes [id number] 10mg Take 1 [facility] 10 1-09 tablet by [facility] mg tablet 00:00: mouth [place] 00 every 6 Medical (six) Branch hours as needed for Nausea and Vomiting (N/V). metoclopram 2021- Yes [id number] 10mg Take 1 [facility] 10 1-09 tablet by [facility] mg tablet 00:00: mouth [place] 00 every 6 Medical (six) Branch hours as needed for Nausea and Vomiting (N/V). metoclopram 2021-1 Yes [id number] 10mg Take 1 [facility] 10 1-09 tablet by [facility] mg tablet 00:00: mouth [place] 00 every 6 Medical (six) Branch hours as needed for Nausea and Vomiting (N/V). metoclopram 2021-1 Yes [id number] 10mg Take 1 [facility] 10 1-09 tablet by [facility] mg tablet 00:00: mouth [place] 00 every 6 Medical (six) Branch hours as needed for Nausea and Vomiting (N/V). metoclopram 2021-1 Yes [id number] 10mg Take 1 [facility] 10 1-09 tablet by [facility] mg tablet 00:00: mouth [place] 00 every 6 Medical (six) Branch hours as needed for Nausea and Vomiting (N/V). metoclopram 2021- Yes [id number] 10mg Take 1 [facility] 10 1-09 tablet by [facility] mg tablet 00:00: mouth [place] 00 every 6 Medical (six) Branch hours as needed for Nausea and Vomiting (N/V). metoclopram 2021-1 Yes [id number] 10mg Take 1 [facility] 10 1-09 tablet by [facility] mg tablet 00:00: mouth [place] 00 every 6 Medical (six) Branch hours as needed for Nausea and Vomiting (N/V). metoclopram 2021-1 Yes [id number] 10mg Take 1 [facility] 10 1-09 tablet by [facility] mg tablet 00:00: mouth [place] 00 every 6 Medical (six) Branch hours as needed for Nausea and Vomiting (N/V). metoclopram 2021- Yes [id number] 10mg Take 1 [facility] 10 1-09 tablet by [facility] mg tablet 00:00: mouth [place] 00 every 6 Medical (six) Branch hours as needed for Nausea and Vomiting (N/V). metoclopram 2021- Yes [id number] 10mg Take 1 [facility] 10 1-09 tablet by [facility] mg tablet 00:00: mouth [place] 00 every 6 Medical (six) Branch hours as needed for Nausea and Vomiting (N/V). metoclopram 2021-1 Yes [id number] 10mg Take 1 [facility] 10 1-09 tablet by [facility] mg tablet 00:00: mouth [place] 00 every 6 Medical (six) Branch hours as needed for Nausea and Vomiting (N/V). metoclopram 2021- 2023- No [id number] 10mg Take 1 [facility] 10 1-09 04-10 tablet by [facility] mg tablet 00:00: 00:00 mouth [place] 00 :00 every 6 Medical (six) Branch hours as needed for Nausea and Vomiting (N/V). modafiniL 2022-0 Yes 200mg Take 200 [facility] [...] morning. Branch modafiniL 2022-0 Yes 200mg Take 1 [facility] 200 mg 9-29 tablet by [facility] tablet 00:00: mouth [place] 00 every Medical morning. Branch modafiniL 2022-0 Yes 200mg Take 1 [facility] 200 mg 9-29 tablet by [facility] of tablet 00:00: mouth [place] 00 every Medical morning. Branch modafiniL 2022-0 Yes 200mg Take 1 [facility] 200 mg 9-29 tablet by [facility] of tablet 00:00: mouth [place] 00 every Medical morning. Branch modafiniL 2022-0 Yes 200mg Take 1 [facility] 200 mg 9-29 tablet by [facility] of tablet 00:00: mouth [place] 00 every Medical morning. Branch modafiniL 2022-0 Yes 200mg Take 1 [facility] 200 mg 9-29 tablet by [facility] of tablet 00:00: mouth [place] 00 every Medical morning. Branch modafiniL 2022-0 Yes 200mg Take 1 [facility] 200 mg 9-29 tablet by [facility] of tablet 00:00: mouth [place] 00 every Medical morning. Branch modafiniL 2022-0 Yes 200mg Take 1 [facility] 200 mg 9-29 tablet by [facility] of tablet 00:00: mouth [place] 00 every Medical morning. Branch modafiniL 2022-0 Yes 200mg Take 1 [facility] 200 mg 9-29 tablet by [facility] of tablet 00:00: mouth [place] 00 every Medical morning. Branch modafiniL 2022-0 Yes 200mg Take 1 [facility] 200 mg 9-29 tablet by [facility] of tablet 00:00: mouth [place] 00 every Medical morning. Branch modafiniL 2022-0 Yes 200mg Take 1 [facility] 200 mg 9-29 tablet by [facility] of tablet 00:00: mouth [place] 00 every Medical morning. Branch modafiniL 2022-0 Yes 200mg Take 1 [facility] 200 mg 9-29 tablet by [facility] of tablet 00:00: mouth [place] 00 every Medical morning. Branch modafiniL 2022-0 Yes 200mg Take 1 [facility] 200 mg 9-29 tablet by [facility] of tablet 00:00: mouth [place] 00 every Medical morning. Branch modafiniL 2022-0 Yes 200mg Take 1 [facility] 200 mg 9-29 tablet by [facility] of tablet 00:00: mouth [place] 00 every Medical morning. Branch modafiniL 2022-0 Yes 200mg Take 1 [facility] 200 mg 9-29 tablet by [facility] of tablet 00:00: mouth [place] 00 every Medical morning. Branch modafiniL 2022-0 Yes 200mg Take 1 [facility] 200 mg 9-29 tablet by [facility] of tablet 00:00: mouth [place] 00 every Medical morning. Branch modafiniL 2022-0 Yes 200mg Take 1 [facility] 200 mg 9-29 tablet by [facility] of tablet 00:00: mouth [place] 00 every Medical morning. Branch modafiniL 2022-0 Yes 200mg Take 1 [facility] 200 mg 9-29 tablet by [facility] of tablet 00:00: mouth [place] 00 every Medical morning. Branch modafiniL 2022-0 Yes 200mg Take 1 [facility] 200 mg 9-29 tablet by [facility] of tablet 00:00: mouth [place] 00 every Medical morning. Branch modafiniL 2022-0 Yes 200mg Take 1 [facility] 200 mg 9-29 tablet by [facility] of tablet 00:00: mouth [place] 00 every Medical morning. Branch modafiniL 2022-0 Yes 200mg Take 1 [facility] 200 mg 9-29 tablet by [facility] of tablet 00:00: mouth [place] 00 every Medical morning. Branch modafiniL 2022-0 Yes 200mg Take 1 [facility] 200 mg 9-29 tablet by [facility] of tablet 00:00: mouth [place] 00 every Medical morning. Branch modafiniL 2022-0 Yes 200mg Take 1 [facility] 200 mg 9-29 tablet by [facility] of tablet 00:00: mouth [place] 00 every Medical morning. Branch modafiniL 2022-0 Yes 200mg Take 1 [facility] 200 mg 9-29 tablet by [facility] of tablet 00:00: mouth [place] 00 every Medical morning. Branch modafiniL 2022-0 Yes 200mg Take 1 [facility] 200 mg 9-29 tablet by [facility] of tablet 00:00: mouth [place] 00 every Medical morning. Branch modafiniL 2022-0 Yes 200mg Take 1 [facility] 200 mg 9-29 tablet by [facility] of tablet 00:00: mouth [place] 00 every Medical morning. Branch modafiniL 2022-0 Yes 200mg Take 1 [facility] 200 mg 9-29 tablet by [facility] of tablet 00:00: mouth [place] 00 every Medical morning. Branch modafiniL 2022-0 Yes 200mg Take 1 [facility] 200 mg 9-29 tablet by [facility] of tablet 00:00: mouth [place] 00 every Medical morning. Branch modafiniL 2022-0 Yes 200mg Take 1 [facility] 200 mg 9-29 tablet by [facility] of tablet 00:00: mouth [place] 00 every Medical morning. Branch modafiniL 2022-0 Yes 200mg Take 1 [facility] 200 mg 9-29 tablet by [facility] of tablet 00:00: mouth [place] 00 every Medical morning. Branch modafiniL 2022-0 Yes 200mg Take 1 [facility] 200 mg 9-29 tablet by [facility] of tablet 00:00: mouth [place] 00 every Medical morning. Branch modafiniL 2022-0 Yes 200mg Take 1 [facility] 200 mg 9-29 tablet by [facility] of tablet 00:00: mouth [place] 00 every Medical morning. Branch modafiniL 2022-0 Yes 200mg Take 1 [facility] 200 mg 9-29 tablet by [facility] of tablet 00:00: mouth [place] 00 every Medical morning. Branch modafiniL 2022-0 Yes 200mg Take 1 [facility] 200 mg 9-29 tablet by [facility] of tablet 00:00: mouth [place] 00 every Medical morning. Branch modafiniL 2022-0 Yes 200mg Take 1 [facility] 200 mg 9-29 tablet by [facility] of tablet 00:00: mouth [place] [...] [place] 00 every Medical morning. Branch modafiniL 2-0 Yes 200mg Take 200 [facility] 200 mg 9-29 mg by [facility] of tablet 00:00: mouth [place] 00 every Medical morning. Branch modafiniL 2022-0 Yes 200mg Take 200 [facility] 200 mg 9-29 mg by [facility] of tablet 00:00: mouth [place] 00 every Medical morning. Branch buprenor[place] 2022-[address] 1 [facility] ne-naloxone 9-15 FILM ity of 8-2 mg 00:00: UNDERNEATH [place] sublingual 00 TONGUE Medical film EVERY DAY. Branch ALLOW TO DISSOLVE SLOWLY IN MOUTH WITHOUT CHEWING OR SWALLOWING bupren[place] 2022-[address] 1 [facility] ne-naloxone 9-15 FILM ity of 8-2 mg 00:00: UNDERNEATH [place] sublingual 00 TONGUE Medical film EVERY DAY. Branch ALLOW TO DISSOLVE SLOWLY IN MOUTH WITHOUT CHEWING OR SWALLOWING [facility] 2022-[address] 1 [facility] ne-naloxone 9-15 FILM ity of 8-2 mg 00:00: UNDERNEATH [place] sublingual 00 TONGUE Medical film EVERY DAY. Branch ALLOW TO DISSOLVE SLOWLY IN MOUTH WITHOUT CHEWING OR SWALLOWING [facility] 2022-[address] 1 [facility] ne-naloxone 9-15 FILM ity of 8-2 mg 00:00: UNDERNEATH [place] sublingual 00 TONGUE Medical film EVERY DAY. Branch ALLOW TO DISSOLVE SLOWLY IN MOUTH WITHOUT CHEWING OR SWALLOWING [facility] 2022-[address] 1 [facility] ne-naloxone 9-15 FILM ity of 8-2 mg 00:00: UNDERNEATH [place] sublingual 00 TONGUE Medical film EVERY DAY. Branch ALLOW TO DISSOLVE SLOWLY IN MOUTH WITHOUT CHEWING OR SWALLOWING [facility] 2022-[address] 1 [facility] ne-naloxone 9-15 FILM ity of 8-2 mg 00:00: UNDERNEATH [place] sublingual 00 TONGUE Medical film EVERY DAY. Branch ALLOW TO DISSOLVE SLOWLY IN MOUTH WITHOUT CHEWING OR SWALLOWING [facility] 2022-[address] 1 [facility] ne-naloxone 9-15 FILM ity of 8-2 mg 00:00: UNDERNEATH [place] sublingual 00 TONGUE Medical film EVERY DAY. Branch ALLOW TO DISSOLVE SLOWLY IN MOUTH WITHOUT CHEWING OR SWALLOWING [facility] 2022-[address] 1 [facility] ne-naloxone 9-15 FILM ity of 8-2 mg 00:00: UNDERNEATH [place] sublingual 00 TONGUE Medical film EVERY DAY. Branch ALLOW TO DISSOLVE SLOWLY IN MOUTH WITHOUT CHEWING OR SWALLOWING [facility] 2022-[address] 1 [facility] ne-naloxone 9-15 FILM ity of 8-2 mg 00:00: UNDERNEATH [place] sublingual 00 TONGUE Medical film EVERY DAY. Branch ALLOW TO DISSOLVE SLOWLY IN MOUTH WITHOUT CHEWING OR SWALLOWING [facility] 2022-[address] 1 [facility] ne-naloxone 9-15 FILM ity of 8-2 mg 00:00: UNDERNEATH [place] sublingual 00 TONGUE Medical film EVERY DAY. Branch ALLOW TO DISSOLVE SLOWLY IN MOUTH WITHOUT CHEWING OR SWALLOWING [facility] 2022-[address] 1 [facility] ne-naloxone 9-15 FILM ity of 8-2 mg 00:00: UNDERNEATH [place] sublingual 00 TONGUE Medical film EVERY DAY. Branch ALLOW TO DISSOLVE SLOWLY IN MOUTH WITHOUT CHEWING OR SWALLOWING [facility] 2022-[address] 1 [facility] ne-naloxone 9-15 FILM ity of 8-2 mg 00:00: UNDERNEATH [place] sublingual 00 TONGUE Medical film EVERY DAY. Branch ALLOW TO DISSOLVE SLOWLY IN MOUTH WITHOUT CHEWING OR SWALLOWING [facility] 2022-[address] 1 [facility] ne-naloxone 9-15 FILM ity of 8-2 mg 00:00: UNDERNEATH [place] sublingual 00 TONGUE Medical film EVERY DAY. Branch ALLOW TO DISSOLVE SLOWLY IN MOUTH WITHOUT CHEWING OR SWALLOWING [facility] 2022-[address] 1 [facility] ne-naloxone 9-15 FILM ity of 8-2 mg 00:00: UNDERNEATH [place] sublingual 00 TONGUE Medical film EVERY DAY. Branch ALLOW TO DISSOLVE SLOWLY IN MOUTH WITHOUT CHEWING OR SWALLOWING [facility] 2022-[address] 1 [facility] ne-naloxone 9-15 FILM ity of 8-2 mg 00:00: UNDERNEATH [place] sublingual 00 TONGUE Medical film EVERY DAY. Branch ALLOW TO DISSOLVE SLOWLY IN MOUTH WITHOUT CHEWING OR SWALLOWING [facility] 2022-[address] 1 [facility] ne-naloxone 9-15 FILM ity of 8-2 mg 00:00: UNDERNEATH [place] sublingual 00 TONGUE Medical film EVERY DAY. Branch ALLOW TO DISSOLVE SLOWLY IN MOUTH WITHOUT CHEWING OR SWALLOWING [facility] 2022-[address] 1 [facility] ne-naloxone 9-15 FILM ity of 8-2 mg 00:00: UNDERNEATH [place] sublingual 00 TONGUE Medical film EVERY DAY. Branch ALLOW TO DISSOLVE SLOWLY IN MOUTH WITHOUT CHEWING OR SWALLOWING [facility] 2022-[address] 1 [facility] ne-naloxone 9-15 FILM ity of 8-2 mg 00:00: UNDERNEATH [place] sublingual 00 TONGUE Medical film EVERY DAY. Branch ALLOW TO DISSOLVE SLOWLY IN MOUTH WITHOUT CHEWING OR SWALLOWING [facility] 2022-[address] 1 [facility] ne-naloxone 9-15 FILM ity of 8-2 mg 00:00: UNDERNEATH [place] sublingual 00 TONGUE Medical film EVERY DAY. Branch ALLOW TO DISSOLVE SLOWLY IN MOUTH WITHOUT CHEWING OR SWALLOWING [facility] 2022-[address] 1 [facility] ne-naloxone 9-15 FILM ity of 8-2 mg 00:00: UNDERNEATH [place] sublingual 00 TONGUE Medical film EVERY DAY. Branch ALLOW TO DISSOLVE SLOWLY IN MOUTH WITHOUT CHEWING OR SWALLOWING [facility] 2022-[address] 1 [facility] ne-naloxone 9-15 FILM ity of 8-2 mg 00:00: UNDERNEATH [place] sublingual 00 TONGUE Medical film EVERY DAY. Branch ALLOW TO DISSOLVE SLOWLY IN MOUTH WITHOUT CHEWING OR SWALLOWING [facility] 2022-[address] 1 [facility] ne-naloxone 9-15 FILM ity of 8-2 mg 00:00: UNDERNEATH [place] sublingual 00 TONGUE Medical film EVERY DAY. Branch ALLOW TO DISSOLVE SLOWLY IN MOUTH WITHOUT CHEWING OR SWALLOWING [facility] 2022-[address] 1 [facility] ne-naloxone 9-15 FILM ity of 8-2 mg 00:00: UNDERNEATH [place] sublingual 00 TONGUE Medical film EVERY DAY. Branch ALLOW TO DISSOLVE SLOWLY IN MOUTH WITHOUT CHEWING OR SWALLOWING [facility] 2022-[address] 1 [facility] ne-naloxone 9-15 FILM ity of 8-2 mg 00:00: UNDERNEATH [place] sublingual 00 TONGUE Medical film EVERY DAY. Branch ALLOW TO DISSOLVE SLOWLY IN MOUTH WITHOUT CHEWING OR SWALLOWING [facility] 2022-[address] 1 [facility] ne-naloxone 9-15 FILM ity of 8-2 mg 00:00: UNDERNEATH [place] sublingual 00 TONGUE Medical film EVERY DAY. Branch ALLOW TO DISSOLVE SLOWLY IN MOUTH WITHOUT CHEWING OR SWALLOWING [facility] 2022-[address] 1 [facility] ne-naloxone 9-15 FILM ity of 8-2 mg 00:00: UNDERNEATH [place] sublingual 00 TONGUE Medical film EVERY DAY. Branch ALLOW TO DISSOLVE SLOWLY IN MOUTH WITHOUT CHEWING OR SWALLOWING [facility] 2022-[address] 1 [facility] ne-naloxone 9-15 FILM ity of 8-2 mg 00:00: UNDERNEATH [place] sublingual 00 TONGUE Medical film EVERY DAY. Branch ALLOW TO DISSOLVE SLOWLY IN MOUTH WITHOUT CHEWING OR SWALLOWING [facility] 2022-[address] 1 [facility] ne-naloxone 9-15 FILM ity of 8-2 mg 00:00: UNDERNEATH [place] sublingual 00 TONGUE Medical film EVERY DAY. Branch ALLOW TO DISSOLVE SLOWLY IN MOUTH WITHOUT CHEWING OR SWALLOWING [facility] 2022-[address] 1 [facility] ne-naloxone 9-15 FILM ity of 8-2 mg 00:00: UNDERNEATH [place] sublingual 00 TONGUE Medical film EVERY DAY. Branch ALLOW TO DISSOLVE SLOWLY IN MOUTH WITHOUT CHEWING OR SWALLOWING [facility] 2022-[address] 1 [facility] ne-naloxone 9-15 FILM ity of 8-2 mg 00:00: UNDERNEATH [place] sublingual 00 TONGUE Medical film EVERY DAY. Branch ALLOW TO DISSOLVE SLOWLY IN MOUTH WITHOUT CHEWING OR SWALLOWING [facility] 2022-[address] 1 [facility] ne-naloxone 9-15 FILM ity of 8-2 mg 00:00: UNDERNEATH [place] sublingual 00 TONGUE Medical film EVERY DAY. Branch ALLOW TO DISSOLVE SLOWLY IN MOUTH WITHOUT CHEWING OR SWALLOWING [facility] 2022-[address] 1 [facility] ne-naloxone 9-15 FILM ity of 8-2 mg 00:00: UNDERNEATH [place] sublingual 00 TONGUE Medical film EVERY DAY. Branch ALLOW TO DISSOLVE SLOWLY IN MOUTH WITHOUT CHEWING OR SWALLOWING [facility] 2022-[address] 1 [facility] ne-naloxone 9-15 FILM ity of 8-2 mg 00:00: UNDERNEATH [place] sublingual 00 TONGUE Medical film EVERY DAY. Branch ALLOW TO DISSOLVE SLOWLY IN MOUTH WITHOUT CHEWING OR SWALLOWING [facility] 2022-[address] 1 [facility] ne-naloxone 9-15 FILM ity of 8-2 mg 00:00: UNDERNEATH [place] sublingual 00 TONGUE Medical film EVERY DAY. Branch ALLOW TO DISSOLVE SLOWLY IN MOUTH WITHOUT CHEWING OR SWALLOWING [facility] 2022-[address] 1 [facility] ne-naloxone 9-15 FILM ity of 8-2 mg 00:00: UNDERNEATH [place] sublingual 00 TONGUE Medical film EVERY DAY. Branch ALLOW TO DISSOLVE SLOWLY IN MOUTH WITHOUT CHEWING OR SWALLOWING [facility] 2022-[address] 1 [facility] ne-naloxone 9-15 FILM ity of 8-2 mg 00:00: UNDERNEATH [place] sublingual 00 TONGUE Medical film EVERY DAY. Branch ALLOW TO DISSOLVE SLOWLY IN MOUTH WITHOUT CHEWING OR SWALLOWING [facility] 2022-[address] 1 [facility] ne-naloxone 9-15 FILM ity of 8-2 mg 00:00: UNDERNEATH [place] sublingual 00 TONGUE Medical film EVERY DAY. Branch ALLOW TO DISSOLVE SLOWLY IN MOUTH WITHOUT CHEWING OR SWALLOWING [facility] 2022-[address] 1 [facility] ne-naloxone 9-15 FILM ity of 8-2 mg 00:00: UNDERNEATH [place] sublingual 00 TONGUE Medical film EVERY DAY. Branch ALLOW TO DISSOLVE SLOWLY IN MOUTH WITHOUT CHEWING OR SWALLOWING [facility] 2022-[address] 1 [facility] ne-naloxone 9-15 FILM ity of 8-2 mg 00:00: UNDERNEATH [place] sublingual 00 TONGUE Medical film EVERY DAY. Branch ALLOW TO DISSOLVE SLOWLY IN MOUTH WITHOUT CHEWING OR SWALLOWING [facility] 2022-[address] 1 [facility] ne-naloxone 9-15 FILM ity of 8-2 mg 00:00: UNDERNEATH [place] sublingual 00 TONGUE Medical film EVERY DAY. Branch ALLOW TO DISSOLVE SLOWLY IN MOUTH WITHOUT CHEWING OR SWALLOWING [facility] 2022-[address] 1 [facility] ne-naloxone 9-15 FILM ity of 8-2 mg 00:00: UNDERNEATH [place] sublingual 00 TONGUE Medical film EVERY DAY. Branch ALLOW TO DISSOLVE SLOWLY IN MOUTH WITHOUT CHEWING OR SWALLOWING [facility] 2022-[address] 1 [facility] ne-naloxone 9-15 FILM ity of 8-2 mg 00:00: UNDERNEATH [place] sublingual 00 TONGUE Medical film EVERY DAY. Branch ALLOW TO DISSOLVE SLOWLY IN MOUTH WITHOUT CHEWING OR SWALLOWING [facility] 2022-[address] 1 [facility] ne-naloxone 9-15 FILM ity of 8-2 mg 00:00: UNDERNEATH [place] sublingual 00 TONGUE Medical film EVERY DAY. Branch ALLOW TO DISSOLVE SLOWLY IN MOUTH WITHOUT CHEWING OR SWALLOWING [facility] 2022-[address] 1 [facility] ne-naloxone 9-15 FILM ity of 8-2 mg 00:00: UNDERNEATH [place] sublingual 00 TONGUE Medical film EVERY DAY. Branch ALLOW TO DISSOLVE SLOWLY IN MOUTH WITHOUT CHEWING OR SWALLOWING [facility] 2022-[address] 1 [facility] ne-naloxone 9-15 FILM ity of 8-2 mg 00:00: UNDERNEATH [place] sublingual 00 TONGUE Medical film EVERY DAY. Branch ALLOW TO DISSOLVE SLOWLY IN MOUTH WITHOUT CHEWING OR SWALLOWING [facility] 2022-[address] 1 [facility] ne-naloxone 9-15 FILM ity of 8-2 mg 00:00: UNDERNEATH [place] sublingual 00 TONGUE Medical film EVERY DAY. Branch ALLOW TO DISSOLVE SLOWLY IN MOUTH WITHOUT CHEWING OR SWALLOWING [facility] 2022-[address] 1 [facility] ne-naloxone 9-15 FILM ity of 8-2 mg 00:00: UNDERNEATH [place] sublingual 00 TONGUE Medical film EVERY DAY. Branch ALLOW TO DISSOLVE SLOWLY IN MOUTH WITHOUT CHEWING OR SWALLOWING [facility] 2022-[address] 1 [facility] ne-naloxone 9-15 FILM ity of 8-2 mg 00:00: UNDERNEATH [place] sublingual 00 TONGUE Medical film EVERY DAY. Branch ALLOW TO DISSOLVE SLOWLY IN MOUTH WITHOUT CHEWING OR SWALLOWING [facility] 2022-[address] 1 [facility] ne-naloxone 9-15 FILM ity of 8-2 mg 00:00: UNDERNEATH [place] sublingual 00 TONGUE Medical film EVERY DAY. Branch ALLOW TO DISSOLVE SLOWLY IN MOUTH WITHOUT CHEWING OR SWALLOWING [facility] 2022-[address] 1 [facility] ne-naloxone 9-15 FILM ity of 8-2 mg 00:00: UNDERNEATH [place] sublingual 00 TONGUE Medical film EVERY DAY. Branch ALLOW TO DISSOLVE SLOWLY IN MOUTH WITHOUT CHEWING OR SWALLOWING [facility] 2022-[address] 1 [facility] ne-naloxone 9-15 FILM ity of 8-2 mg 00:00: UNDERNEATH [place] sublingual 00 TONGUE Medical film EVERY DAY. Branch ALLOW TO DISSOLVE SLOWLY IN MOUTH WITHOUT CHEWING OR SWALLOWING [facility] 2022-[address] 1 [facility] ne-naloxone 9-15 FILM ity of 8-2 mg 00:00: UNDERNEATH [place] sublingual 00 TONGUE Medical film EVERY DAY. Branch ALLOW TO DISSOLVE SLOWLY IN MOUTH WITHOUT CHEWING OR SWALLOWING [facility] 2022-[address] 1 [facility] ne-naloxone 9-15 FILM ity of 8-2 mg 00:00: UNDERNEATH [place] sublingual 00 TONGUE Medical film EVERY DAY. Branch ALLOW TO DISSOLVE SLOWLY IN MOUTH WITHOUT CHEWING OR SWALLOWING [facility] 2022-[address] 1 [facility] ne-naloxone 9-15 FILM ity of 8-2 mg 00:00: UNDERNEATH [place] sublingual 00 TONGUE Medical film EVERY DAY. Branch ALLOW TO DISSOLVE SLOWLY IN MOUTH WITHOUT CHEWING OR SWALLOWING [facility] 2022-[address] 1 [facility] ne-naloxone 9-15 FILM ity of 8-2 mg 00:00: UNDERNEATH [place] sublingual 00 TONGUE Medical film EVERY DAY. Branch ALLOW TO DISSOLVE SLOWLY IN MOUTH WITHOUT CHEWING OR SWALLOWING [facility] 2022-[address] 1 [facility] ne-naloxone 9-15 FILM ity of 8-2 mg 00:00: UNDERNEATH [place] sublingual 00 TONGUE Medical film EVERY DAY. Branch ALLOW TO DISSOLVE SLOWLY IN MOUTH WITHOUT CHEWING OR SWALLOWING [facility] 2022-[address] 1 [facility] ne-naloxone 9-15 FILM ity of 8-2 mg 00:00: UNDERNEATH [place] sublingual 00 TONGUE Medical film EVERY DAY. Branch ALLOW TO DISSOLVE SLOWLY IN MOUTH WITHOUT CHEWING OR SWALLOWING [facility] 2022-[address] 1 [facility] ne-naloxone 9-15 FILM ity of 8-2 mg 00:00: UNDERNEATH [place] sublingual 00 TONGUE Medical film EVERY DAY. Branch ALLOW TO DISSOLVE SLOWLY IN MOUTH WITHOUT CHEWING OR SWALLOWING [facility] 2022-[address] 1 [facility] ne-naloxone 9-15 FILM ity of 8-2 mg 00:00: UNDERNEATH [place] sublingual 00 TONGUE Medical film EVERY DAY. Branch ALLOW TO DISSOLVE SLOWLY IN MOUTH WITHOUT CHEWING OR SWALLOWING [facility] 2022-[address] 1 [facility] ne-naloxone 9-15 FILM ity of 8-2 mg 00:00: UNDERNEATH [place] sublingual 00 TONGUE Medical film EVERY DAY. Branch ALLOW TO DISSOLVE SLOWLY IN MOUTH WITHOUT CHEWING OR SWALLOWING [facility] 2022-[address] 1 [facility] ne-naloxone 9-15 FILM ity of 8-2 mg 00:00: UNDERNEATH [place] sublingual 00 TONGUE Medical film EVERY DAY. Branch ALLOW TO DISSOLVE SLOWLY IN MOUTH WITHOUT CHEWING OR SWALLOWING [facility] 2022-[address] 1 [facility] ne-naloxone 9-15 FILM ity of 8-2 mg 00:00: UNDERNEATH [place] sublingual 00 TONGUE Medical film EVERY DAY. Branch ALLOW TO DISSOLVE SLOWLY IN MOUTH WITHOUT CHEWING OR SWALLOWING [facility] 2022-[address] 1 [facility] ne-naloxone 9-15 FILM ity of 8-2 mg 00:00: UNDERNEATH [place] sublingual 00 TONGUE Medical film EVERY DAY. Branch ALLOW TO DISSOLVE SLOWLY IN MOUTH WITHOUT CHEWING OR SWALLOWING [facility] 2022-[address] 1 [facility] ne-naloxone 9-15 FILM ity of 8-2 mg 00:00: UNDERNEATH [place] sublingual 00 TONGUE Medical film EVERY DAY. Branch ALLOW TO DISSOLVE SLOWLY IN MOUTH WITHOUT CHEWING OR SWALLOWING [facility] 2022-[address] 1 [facility] ne-naloxone 9-15 FILM ity of 8-2 mg 00:00: UNDERNEATH [place] sublingual 00 TONGUE Medical film EVERY DAY. Branch ALLOW TO DISSOLVE SLOWLY IN MOUTH WITHOUT CHEWING OR SWALLOWING buprenorphi 2022-[address] 1 Uni vers ne-naloxone 9-15 FILM ity of 8-2 mg 00:00: UNDERNEATH [place] sublingual 00 TONGUE Medical film EVERY DAY. Branch ALLOW TO DISSOLVE SLOWLY IN MOUTH WITHOUT CHEWING OR SWALLOWING buprenor[place] 2022-[address] 1 Uni vers ne-naloxone 9-15 FILM ity of 8-2 mg 00:00: UNDERNEATH [place] sublingual 00 TONGUE Medical film EVERY DAY. Branch ALLOW TO DISSOLVE SLOWLY IN MOUTH WITHOUT CHEWING OR SWALLOWING bupren[place] 2022-[address] 1 Uni vers ne-naloxone 9-15 FILM ity of 8-2 mg 00:00: UNDERNEATH [place] sublingual 00 TONGUE Medical film EVERY DAY. Branch ALLOW TO DISSOLVE SLOWLY IN MOUTH WITHOUT CHEWING OR SWALLOWING b[place]ren[place] 2022-[address] 1 Uni vers ne-naloxone 9-15 FILM ity of 8-2 mg 00:00: UNDERNEATH [place] sublingual 00 TONGUE Medical film EVERY DAY. Branch ALLOW TO DISSOLVE SLOWLY IN MOUTH WITHOUT CHEWING OR SWALLOWING [place] 2022-[address] 1 Uni vers ne-naloxone 9-15 FILM ity of 8-2 mg 00:00: UNDERNEATH [place] sublingual 00 TONGUE Medical film EVERY DAY. Branch ALLOW TO DISSOLVE SLOWLY IN MOUTH WITHOUT CHEWING OR SWALLOWING b[place]ren[place] 2022-[address] 1 Uni vers ne-naloxone 9-15 FILM ity of 8-2 mg 00:00: UNDERNEATH [place] sublingual 00 TONGUE Medical film EVERY DAY. Branch ALLOW TO DISSOLVE SLOWLY IN MOUTH WITHOUT CHEWING OR SWALLOWING b[place]ren[place] 2022-[address] 1 Uni vers ne-naloxone 9-15 FILM ity of 8-2 mg 00:00: UNDERNEATH [place] sublingual 00 TONGUE Medical film EVERY DAY. Branch ALLOW TO DISSOLVE SLOWLY IN MOUTH WITHOUT CHEWING OR SWALLOWING b[place]ren[place] 2022-[address] 1 Uni vers ne-naloxone 9-15 FILM ity of 8-2 mg 00:00: UNDERNEATH [place] sublingual 00 TONGUE Medical film EVERY DAY. Branch ALLOW TO DISSOLVE SLOWLY IN MOUTH WITHOUT CHEWING OR SWALLOWING b[place]ren[place] 2022-[address] 1 Uni vers ne-naloxone 9-15 FILM ity of 8-2 mg 00:00: UNDERNEATH [place] sublingual 00 TONGUE Medical film EVERY DAY. Branch ALLOW TO DISSOLVE SLOWLY IN MOUTH WITHOUT CHEWING OR SWALLOWING b[place]ren[place] 2022-[address] 1 Uni vers ne-naloxone 9-15 FILM ity of 8-2 mg 00:00: UNDERNEATH [place] sublingual 00 TONGUE Medical film EVERY DAY. Branch ALLOW TO DISSOLVE SLOWLY IN MOUTH WITHOUT CHEWING OR SWALLOWING b[place] 2022-[address] 1 Uni vers ne-naloxone 9-15 FILM ity of 8-2 mg 00:00: UNDERNEATH [place] sublingual 00 TONGUE Medical film EVERY DAY. Branch ALLOW TO DISSOLVE SLOWLY IN MOUTH WITHOUT CHEWING OR SWALLOWING b[place] 2022-[address] 1 Uni vers ne-naloxone 9-15 FILM ity of 8-2 mg 00:00: UNDERNEATH [place] sublingual 00 TONGUE Medical film EVERY DAY. Branch ALLOW TO DISSOLVE SLOWLY IN MOUTH WITHOUT CHEWING OR SWALLOWING b[place] 2022-[address] 1 Uni vers ne-naloxone 9-15 FILM ity of 8-2 mg 00:00: UNDERNEATH [place] sublingual 00 TONGUE Medical film EVERY DAY. Branch ALLOW TO DISSOLVE SLOWLY IN MOUTH WITHOUT CHEWING OR SWALLOWING b[place] 2022-[address] 1 Uni vers ne-naloxone 9-15 FILM ity of 8-2 mg 00:00: UNDERNEATH [place] sublingual 00 TONGUE Medical film EVERY DAY. Branch ALLOW TO DISSOLVE SLOWLY IN MOUTH WITHOUT CHEWING OR SWALLOWING b[place] 2022-[address] 1 Uni vers ne-naloxone 9-15 FILM ity of 8-2 mg 00:00: UNDERNEATH [place] sublingual 00 TONGUE Medical film EVERY DAY. Branch ALLOW TO DISSOLVE SLOWLY IN MOUTH WITHOUT CHEWING OR SWALLOWING b[place]ren[place] 2022-[address] 1 Uni vers ne-naloxone 9-15 FILM ity of 8-2 mg 00:00: UNDERNEATH [place] sublingual 00 TONGUE Medical film EVERY DAY. Branch ALLOW TO DISSOLVE SLOWLY IN MOUTH WITHOUT CHEWING OR SWALLOWING bupren[place] 2022-[address] 1 Uni vers ne-naloxone 9-15 FILM ity of 8-2 mg 00:00: UNDERNEATH [place] sublingual 00 TONGUE Medical film EVERY DAY. Branch ALLOW TO DISSOLVE SLOWLY IN MOUTH WITHOUT CHEWING OR SWALLOWING bupren[place] 2022-[address] 1 Uni vers ne-naloxone 9-15 [...] 00 :00 every Medical morning. Branch cyclobenzap 2021-0 Yes [id number] TAKE 1 Univers rine 10 mg 5-07 TABLET BY ity of tablet 00:00: MOUTH [place] 00 EVERY 8 Medical HOURS Branch NEEDED FOR MUSCLE SPASMS. cyclobenzap 2021-0 Yes [id number] TAKE 1 Univers rine 10 mg 5-07 TABLET BY ity of tablet 00:00: MOUTH [place] 00 EVERY 8 Medical HOURS Branch NEEDED FOR MUSCLE SPASMS. cyclobenzap 2021-0 Yes [id number] TAKE 1 Univers rine 10 mg 5-07 TABLET BY ity of tablet 00:00: MOUTH [place] 00 EVERY 8 Medical HOURS Branch NEEDED FOR MUSCLE SPASMS. cyclobenzap 2021-0 Yes [id number] TAKE 1 Univers rine 10 mg 5-07 TABLET BY ity of tablet 00:00: MOUTH [place] 00 EVERY 8 Medical HOURS Branch NEEDED FOR MUSCLE SPASMS. cyclobenzap 2021-0 Yes [id number] TAKE 1 Univers rine 10 mg 5-07 TABLET BY ity of tablet 00:00: MOUTH [place] 00 EVERY 8 Medical HOURS Branch NEEDED FOR MUSCLE SPASMS. cyclobenzap 2022-0 Yes [id number] TAKE 1 Univers rine 10 mg 5-07 TABLET BY ity of tablet 00:00: MOUTH [place] 00 EVERY 8 Medical HOURS Branch NEEDED FOR MUSCLE SPASMS. cyclobenzap 2021- No [id number] TAKE 1 Univers rine 10 mg 5-07 10-13 TABLET BY ity of tablet 00:00: 00:00 MOUTH [place] 00 :00 EVERY 8 Medical HOURS Branch NEEDED FOR MUSCLE SPASMS. cyclobenzap 2021- No [id number] TAKE 1 Univers rine 10 mg 5-07 10-13 TABLET BY ity of tablet 00:00: 00:00 MOUTH [place] 00 :00 EVERY 8 Medical HOURS Branch NEEDED FOR MUSCLE SPASMS. gabapentin 2019- Yes TK 1/2 TO Un queta 600 mg 7-25 1 T PO BID ity of tablet 00:00: [place] 00 [facility] Branch gabapentin 2019-0 Yes TK 1/2 TO Un queta 600 mg 7-25 1 T PO BID ity of tablet 00:00: [place] 00 Medical Branch gabapentin 2019-0 Yes TK 1/2 TO Un queta 600 mg 7-25 1 T PO BID ity of tablet 00:00: [place] 00 Medical Branch gabapentin 2019-0 Yes TK 1/2 TO Un queta 600 mg 7-25 1 T PO BID ity of tablet 00:00: [place] 00 Medical Branch gabapentin 2019-0 Yes TK 1/2 TO Un queta 600 mg 7-25 1 T PO BID ity of tablet 00:00: [place] 00 [facility] Branch gabapentin 2019-0 Yes TK 1/2 TO Un queta 600 mg 7-25 1 T PO BID ity of tablet 00:00: [place] [facility] gabapentin 2019-0 2021- No TK 1/2 TO U nivers 600 mg 7-25 10-13 1 T PO BID ity of tablet 00:00: 00:00 [place] 00 :00 Medical Branch gabapentin 2019-0 2021- No TK 1/2 TO U nivers 600 mg 7-25 10-13 1 T PO BID ity of tablet 00:00: 00:00 [place] 00 :00 Medical Branch tablet 2019-[address] 1 Univers compound 5-13 AND 1/2 ity of base no.230 00:00: FILMS [place] (SUBSOLV 00 UNDER THE Medica l RDT MIS) TONGUE Q Branch DAY ALLOW TO DISSOLVE SLOWLY WITHOUT CHEWING OR SWALLOWING tablet Yes PLACE 1 Univers compound 5-13 AND 1/2 ity of base no.230 00:00: FILMS [place] (SUBSOLV 00 UNDER THE Medica l R[place] [facility] TONGUE Q Branch DAY ALLOW TO DISSOLVE SLOWLY WITHOUT CHEWING OR SWALLOWING tablet Yes PLACE 1 Univers compound 5-13 AND 1/2 ity of base no.230 00:00: FILMS [place] (SUBSOLV 00 UNDER THE Medica l [place] [facility] TONGUE Q Branch DAY ALLOW TO DISSOLVE SLOWLY WITHOUT CHEWING OR SWALLOWING tablet 2021- No PLACE 1 Univers compound 5-13 01-06 AND 1/2 ity of base no.230 00:00: 00:[place] :00 UND[place] THE Medica l R[place] [facility] TONGUE Q Branch DAY ALLOW TO DISSOLVE SLOWLY WITHOUT CHEWING OR SWALLOWING tablet 2021- No PLACE 1 Univers compound 5-13 01-06 AND 1/2 ity of base no.230 00:00: 00:[place]BSOLV 00 :00 UNDER THE Medica l RDT [facility] TONGUE Q Branch DAY ALLOW TO DISSOLVE SLOWLY WITHOUT CHEWING OR SWALLOWING tablet 2021- No PLACE 1 Univers compound 5-13 01-06 AND 1/2 ity of base no.230 00:00: 00:[place]SUBSOLV 00 :00 UNDER THE Medica l RDT [facility] TONGUE Q Branch DAY ALLOW TO DISSOLVE SLOWLY WITHOUT CHEWING OR SWALLOWING Immunizations Ordered Filled Immunization Date Status Comments [facility] e Immunization Name Name Rho (d) Immune 2022-04-11 Completed University of Globulin 00:00:00 [facility] Rho (d) Immune 2022-04-11 Completed University of Globulin 00:00:00 [facility] Rho (d) Immune 2022-04-11 Completed University of Globulin 00:00:00 [facility] Rho (d) Immune 2022-04-11 Completed University of Globulin 00:00:00 [facility] Rho (d) Immune 2022-04-11 Completed University of Globulin 00:00:00 [facility] Rho (d) Immune 2022-04-11 Completed University of Globulin 00:00:00 [facility] Rho (d) Immune 2022-04-11 Completed University of Globulin 00:00:00 [place] [facility] Rho (d) Immune 2022-04-11 Completed University of Globulin 00:00:00 [facility] Branch Rho (d) Immune 2022-04-11 Completed University of Globulin 00:00:00 [facility] Branch Rho (d) Immune 2022-04-11 Completed University of Globulin 00:00:00 [facility] Branch Rho (d) Immune 2022-04-11 Completed University of Globulin 00:00:00 [facility] Branch Rho (d) Immune 2022-04-11 Completed University of Globulin 00:00:00 [facility] Branch Rho (d) Immune 2022-04-11 Completed University of Globulin 00:00:00 [facility] Branch Rho (d) Immune 2022-04-11 Completed University of Globulin 00:00:00 [facility] Branch Rho (d) Immune 2022-04-11 Completed University of Globulin 00:00:00 [facility] Branch Rho (d) Immune 2022-04-11 Completed University of Globulin 00:00:00 [facility] Branch Rho (d) Immune 2022-04-11 Completed University of Globulin 00:00:00 [facility] Branch Rho (d) Immune 2022-04-11 Completed University of Globulin 00:00:00 [facility] Branch Rho (d) Immune 2022-04-11 Completed University of Globulin 00:00:00 [facility] Branch Rho (d) Immune 2022-04-11 Completed University of Globulin 00:00:00 [facility] Branch Rho (d) Immune 2022-04-11 Completed University of Globulin 00:00:00 [facility] Branch Rho (d) Immune 2022-04-11 Completed University of Globulin 00:00:00 [facility] Branch Rho (d) Immune 2022-04-11 Completed University of Globulin 00:00:00 [facility] Branch Rho (d) Immune 2022-04-11 Completed University of Globulin 00:00:00 [facility] Branch Rho (d) Immune 2022-04-11 Completed University of Globulin 00:00:00 [facility] Branch Rho (d) Immune 2022-04-11 Completed University of Globulin 00:00:00 [facility] Branch Rho (d) Immune 2022-04-11 Completed University of Globulin 00:00:00 [facility] Branch Rho (d) Immune 2022-04-11 Completed University of Globulin 00:00:00 [facility] Branch Rho (d) Immune 2022-04-11 Completed University of Globulin 00:00:00 [facility] Branch Rho (d) Immune 2022-04-11 Completed University of Globulin 00:00:00 [facility] Branch Rho (d) Immune 2022-04-11 Completed University of Globulin 00:00:00 [facility] Branch Rho (d) Immune 2022-04-11 Completed University of Globulin 00:00:00 [facility] Branch Rho (d) Immune 2022-04-11 Completed University of Globulin 00:00:00 [facility] Branch Rho (d) Immune 2022-04-11 Completed University of Globulin 00:00:00 [facility] Branch Rho (d) Immune 2022-04-11 Completed University of Globulin 00:00:00 [facility] Branch Rho (d) Immune 2022-04-11 Completed University of Globulin 00:00:00 [facility] Branch Rho (d) Immune 2022-04-11 Completed University of Globulin 00:00:00 [facility] Branch Rho (d) Immune 2022-04-11 Completed University of Globulin 00:00:00 [facility] Branch Rho (d) Immune 2022-04-11 Completed University of Globulin 00:00:00 [facility] Branch Rho (d) Immune 2022-04-11 Completed University of Globulin 00:00:00 [facility] Branch Rho (d) Immune 2022-04-11 Completed University of Globulin 00:00:00 [facility] Rho (d) Immune 2022-04-11 Completed University of Globulin 00:00:00 [facility] Branch HPV9 2022-03-28 Completed University of 00:00:00 [facility] Branch HPV9 2022-03-28 Completed University of 00:00:00 [facility] Branch HPV9 2022-03-28 Completed University of 00:00:00 [facility] Branch HPV9 2022-03-28 Completed University of 00:00:00 [facility] Branch HPV9 2022-03-28 Completed University of 00:00:00 [facility] Branch HPV9 2022-03-28 Completed University of 00:00:00 [facility] Branch HPV9 2022-03-28 Completed University of 00:00:00 [facility] Branch HPV9 2022-03-28 Completed University of 00:00:00 [facility] Branch HPV9 2022-03-28 Completed University of 00:00:00 [facility] Branch HPV9 2022-03-28 Completed University of 00:00:00 [facility] Branch HPV9 2022-03-28 Completed University of 00:00:00 [place] [facility] HPV9 2022-03-28 Completed University of 00:00:00 [place] [facility] HPV9 2022-03-28 Completed University of 00:00:00 [place] [facility] HPV9 2022-03-28 Completed University of 00:00:00 [place] [facility] HPV9 2022-03-28 Completed University of 00:00:00 [place] [facility] HPV9 2022-03-28 Completed University of 00:00:00 [place] [facility] HPV9 2022-03-28 Completed University of 00:00:00 [place] [facility] HPV9 2022-03-28 Completed University of 00:00:00 [place] [facility] HPV9 2022-03-28 Completed University of 00:00:00 [place] [facility] HPV9 2022-03-28 Completed University of 00:00:00 [place] [facility] HPV9 2022-03-28 Completed University of 00:00:00 [place] [facility] HPV9 2022-03-28 Completed University of 00:00:00 [place] [facility] HPV9 2022-03-28 Completed University of 00:00:00 [place] [facility] HPV9 2022-03-28 Completed University of 00:00:00 [place] [facility] HPV9 2022-03-28 Completed University of 00:00:00 [place] [facility] HPV9 2022-03-28 Completed University of 00:00:00 [place] [facility] HPV9 2022-03-28 Completed University of 00:00:00 [place] [facility] HPV9 2022-03-28 Completed University of 00:00:00 [place] [facility] HPV9 2022-03-28 Completed University of 00:00:00 [place] [facility] HPV9 2022-03-28 Completed University of 00:00:00 [place] [facility] HPV9 2022-03-28 Completed University of 00:00:00 [place] [facility] HPV9 2022-03-28 Completed University of 00:00:00 [place] [facility] HPV9 2022-03-28 Completed University of 00:00:00 [place] [facility] HPV9 2022-03-28 Completed University of 00:00:00 [place] [facility] HPV9 2022-03-28 Completed University of 00:00:00 [place] [facility] HPV9 2022-03-28 Completed University of 00:00:00 [place] [facility] HPV9 2022-03-28 Completed University of 00:00:00 [facility] HPV9 2022-03-28 Completed University of 00:00:00 [facility] HPV9 2022-03-28 Completed University of 00:00:00 [facility] HPV9 2022-03-28 Completed University of 00:00:00 [facility] HPV9 2022-03-28 Completed University of 00:00:00 [facility] HPV9 2022-03-28 Completed University of 00:00:00 [facility] Branch HPV9 2022-03-28 Completed University of 00:00:00 [facility] HPV9 2022-03-28 Completed University of 00:00:00 [facility] HPV9 2022-03-28 Completed University of 00:00:00 [facility] HPV9 2022-03-28 Completed University of 00:00:00 [facility] HPV9 2022-03-28 Completed University of 00:00:00 [facility] HPV9 2022-03-28 Completed University of 00:00:00 [facility] Influenza Virus 2022-02-22 Completed Universit y of Vaccine Quad IM, 00:00:00 [place] Me dical Preserv and ABX Branch Free 6 MO-64 YRS Influenza Virus 2022-02-22 Completed Universit y of Vaccine Quad IM, 00:00:00 [place] Me dical Preserv and ABX Branch Free 6 MO-64 YRS Influenza Virus 2022-02-22 Completed Universit y of Vaccine Quad IM, 00:00:00 [place] [facility] dical Preserv and ABX Branch Free 6 MO-64 YRS Influenza Virus 2022-02-22 Completed Universit y of Vaccine Quad IM, 00:00:00 [place] Me dical Preserv and ABX Branch Free 6 MO-64 YRS Influenza Virus 2022-02-22 Completed Universit y of Vaccine Quad IM, 00:00:00 [place] Me dical Preserv and ABX Branch Free 6 MO-64 YRS Influenza Virus 2022-02-22 Completed Universit y of Vaccine Quad IM, 00:00:00 [place] Me dical Preserv and ABX Branch Free 6 MO-64 YRS Influenza Virus 2022-02-22 Completed Universit y of Vaccine Quad IM, 00:00:00 [place] Me dical Preserv and ABX Branch Free 6 MO-64 YRS Influenza Virus 2022-02-22 Completed Universit y of Vaccine Quad IM, 00:00:00 [place] Me dical Preserv and ABX Branch Free 6 MO-64 YRS Influenza Virus 2022-02-22 Completed Universit y of Vaccine Quad IM, 00:00:00 [place] Me dical Preserv and ABX Branch Free 6 MO-64 YRS Influenza Virus 2022-02-22 Completed Universit y of Vaccine Quad IM, 00:00:00 [place] Me dical Preserv and ABX Branch Free 6 MO-64 YRS Influenza Virus 2022-02-22 Completed Universit y of Vaccine Quad IM, 00:00:00 [place] Me dical Preserv and ABX Branch Free 6 MO-64 YRS Influenza Virus 2022-02-22 Completed Universit y of Vaccine Quad IM, 00:00:00 [place] Me dical Preserv and ABX Branch Free 6 MO-64 YRS Influenza Virus 2022-02-22 Completed Universit y of Vaccine Quad IM, 00:00:00 [place] Me dical Preserv and ABX Branch Free 6 MO-64 YRS Influenza Virus 2022-02-22 Completed Universit y of Vaccine Quad IM, 00:00:00 [place] Me dical Preserv and ABX Branch Free 6 MO-64 YRS Influenza Virus 2022-02-22 Completed Universit y of Vaccine Quad IM, 00:00:00 [place] Me dical Preserv and ABX Branch Free 6 MO-64 YRS Influenza Virus 2022-02-22 Completed Universit y of Vaccine Quad IM, 00:00:00 [place] Me dical Preserv and ABX Branch Free 6 MO-64 YRS Influenza Virus 2022-02-22 Completed Universit y of Vaccine Quad IM, 00:00:00 [place] Me dical Preserv and ABX Branch Free 6 MO-64 YRS Influenza Virus 2022-02-22 Completed Universit y of Vaccine Quad IM, 00:00:00 [place] Me dical Preserv and ABX Branch Free 6 MO-64 YRS Influenza Virus 2022-02-22 Completed Universit y of Vaccine Quad IM, 00:00:00 [place] Me dical Preserv and ABX Branch Free 6 MO-64 YRS Influenza Virus 2022-02-22 Completed Universit y of Vaccine Quad IM, 00:00:00 [place] Me dical Preserv and ABX Branch Free 6 MO-64 YRS Influenza Virus 2022-02-22 Completed Universit y of Vaccine Quad IM, 00:00:00 [place] Me dical Preserv and ABX Branch Free 6 MO-64 YRS Influenza Virus 2022-02-22 Completed Universit y of Vaccine Quad IM, 00:00:00 [place] Me dical Preserv and ABX Branch Free 6 MO-64 YRS Influenza Virus 2022-02-22 Completed Universit y of Vaccine Quad IM, 00:00:00 [place] Me dical Preserv and ABX Branch Free 6 MO-64 YRS Influenza Virus 2022-02-22 Completed Universit y of Vaccine Quad IM, 00:00:00 [place] Me dical Preserv and ABX Branch Free 6 MO-64 YRS Influenza Virus 2022-02-22 Completed Universit y of Vaccine Quad IM, 00:00:00 [place] Me dical Preserv and ABX Branch Free 6 MO-64 YRS Influenza Virus 2022-02-22 Completed Universit y of Vaccine Quad IM, 00:00:00 [place] Me dical Preserv and ABX Branch Free 6 MO-64 YRS Influenza Virus 2022-02-22 Completed Universit y of Vaccine Quad IM, 00:00:00 [place] Me dical Preserv and ABX Branch Free 6 MO-64 YRS Influenza Virus 2022-02-22 Completed Universit y of Vaccine Quad IM, 00:00:00 [place] Me dical Preserv and ABX Branch Free 6 MO-64 YRS Influenza Virus 2022-02-22 Completed Universit y of Vaccine Quad IM, 00:00:00 [place] Me dical Preserv and ABX Branch Free 6 MO-64 YRS Influenza Virus 2022-02-22 Completed Universit y of Vaccine Quad IM, 00:00:00 [place] Me dical Preserv and ABX Branch Free 6 MO-64 YRS Influenza Virus 2022-02-22 Completed Universit y of Vaccine Quad IM, 00:00:00 [place] Me dical Preserv and ABX Branch Free 6 MO-64 YRS Influenza Virus 2022-02-22 Completed Universit y of Vaccine Quad IM, 00:00:00 [place] Me dical Preserv and ABX Branch Free 6 MO-64 YRS Influenza Virus 2022-02-22 Completed Universit y of Vaccine Quad IM, 00:00:00 [place] Me dical Preserv and ABX Branch Free 6 MO-64 YRS Influenza Virus 2022-02-22 Completed Universit y of Vaccine Quad IM, 00:00:00 [place] Me dical Preserv and ABX Branch Free 6 MO-64 YRS Influenza Virus 2022-02-22 Completed Universit y of Vaccine Quad IM, 00:00:00 [place] Me dical Preserv and ABX Branch Free 6 MO-64 YRS Influenza Virus 2022-02-22 Completed Universit y of Vaccine Quad IM, 00:00:00 [place] Me dical Preserv and ABX Branch Free 6 MO-64 YRS Influenza Virus 2022-02-22 Completed Universit y of Vaccine Quad IM, 00:00:00 [place] Me dical Preserv and ABX Branch Free 6 MO-64 YRS Influenza Virus 2022-02-22 Completed Universit y of Vaccine Quad IM, 00:00:00 [place] Me dical Preserv and ABX Branch Free 6 MO-64 YRS Influenza Virus 2022-02-22 Completed Universit y of Vaccine Quad IM, 00:00:00 [place] Me dical Preserv and ABX Branch Free 6 MO-64 YRS Influenza Virus 2022-02-22 Completed Universit y of Vaccine Quad IM, 00:00:00 [place] Me dical Preserv and ABX Branch Free 6 MO-64 YRS Influenza Virus 2022-02-22 Completed Universit y of Vaccine Quad IM, 00:00:00 [place] Me dical Preserv and ABX Branch Free 6 MO-64 YRS Influenza Virus 2022-02-22 Completed Universit y of Vaccine Quad IM, 00:00:00 [place] Me dical Preserv and ABX Branch Free 6 MO-64 YRS Influenza Virus 2022-02-22 Completed Universit y of Vaccine Quad IM, 00:00:00 [place] Me dical Preserv and ABX Branch Free 6 MO-64 YRS Influenza Virus 2022-02-22 Completed Universit y of Vaccine Quad IM, 00:00:00 [place] Me dical Preserv and ABX Branch Free 6 MO-64 YRS Influenza Virus 2022-02-22 Completed Universit y of Vaccine Quad IM, 00:00:00 [place] Me dical Preserv and ABX Branch Free 6 MO-64 YRS Influenza Virus 2022-02-22 Completed Universit y of Vaccine Quad IM, 00:00:00 [place] Me dical Preserv and ABX Branch Free 6 MO-64 YRS Influenza Virus 2022-02-22 Completed Universit y of Vaccine Quad IM, 00:00:00 [place] Me dical Preserv and ABX Branch Free 6 MO-64 YRS Influenza Virus 2022-02-22 Completed Universit y of Vaccine Quad IM, 00:00:00 [place] Me dical Preserv and ABX Branch Free 6 MO-64 YRS Influenza Virus 2022-02-22 Completed Universit y of Vaccine Quad IM, 00:00:00 [place] Me dical Preserv and ABX Branch Free 6 MO-64 YRS Influenza Virus 2022-02-22 Completed Universit y of Vaccine Quad IM, 00:00:00 [place] Me dical Preserv and ABX Branch Free 6 MO-64 YRS Influenza Virus 2022-02-22 Completed Universit y of Vaccine Quad IM, 00:00:00 [place] Me dical Preserv and ABX Branch Free 6 MO-64 YRS Influenza Virus 2022-02-22 Completed Universit y of Vaccine Quad IM, 00:00:00 [place] Me dical Preserv and ABX Branch Free 6 MO-64 YRS Influenza Virus 2022-02-22 Completed Universit y of Vaccine Quad IM, 00:00:00 [place] Me dical Preserv and ABX Branch Free 6 MO-64 YRS Influenza Virus 2022-02-22 Completed Universit y of Vaccine Quad IM, 00:00:00 [place] Me dical Preserv and ABX Branch Free 6 MO-64 YRS Influenza Virus 2022-02-22 Completed Universit y of Vaccine Quad IM, 00:00:00 [place] Me dical Preserv and ABX Branch Free 6 MO-64 YRS Influenza Virus 2022-02-22 Completed Universit y of Vaccine Quad IM, 00:00:00 [place] Me dical Preserv and ABX Branch Free 6 MO-64 YRS Influenza Virus 2022-02-22 Completed Universit y of Vaccine Quad IM, 00:00:00 [place] Me dical Preserv and ABX Branch Free 6 MO-64 YRS Influenza Virus 2022-02-22 Completed [facility], 00:[facility]:00 [place] [facility]X [facility] Free 6 MO-64 YRS Influenza Virus 2022-02-22 Completed [facility], 00:00:00 [place] [facility] Free 6 MO-64 YRS Influenza Virus 2022-02-22 Completed [facility], 00:00:00 [place] [facility]X [facility] Free 6 MO-64 YRS Influenza Virus 2022-02-22 Completed [facility], 00:00:00 [place] [facility] Free 6 MO-64 YRS Influenza Virus 2022-02-22 Completed [facility], 00:00:00 [place] [facility]X [facility] Free 6 MO-64 YRS Influenza Virus 2022-02-22 Completed [facility], 00:00:00 [place] [facility]X [facility] Free 6 MO-64 YRS Influenza Virus 2022-02-22 Completed [facility], 00:00:00 [place] [facility] Free 6 MO-64 YRS Influenza Virus 2022-02-22 Completed [facility], 00:00:00 [place] [facility] Free 6 MO-64 YRS Influenza Virus 2022-02-22 Completed [facility], 00:00:00 [place] [facility]X [facility] Free 6 MO-64 YRS Influenza Virus 2022-02-22 Completed [facility], 00:00:00 [place] [facility]X [facility] Free 6 MO-64 YRS Influenza Virus 2022-02-22 Completed [facility], 00:00:00 [place] [facility] Free 6 MO-64 YRS Influenza Virus 2022-02-22 Completed [facility], 00:00:00 [place] [facility]X [facility] Free 6 MO-64 YRS Influenza Virus 2022-02-22 Completed [facility], 00:00:00 [place] [facility]X [facility] Free 6 MO-64 YRS Influenza Virus 2022-02-22 Completed [facility], 00:00:00 [place] [facility] ABX [facility] Free 6 MO-64 YRS Influenza Virus 2022-02-22 Completed [facility], 00:00:00 [place] [facility]X [facility] Free 6 MO-64 YRS Influenza Virus 2022-02-22 Completed [facility], 00:00:00 [place] [facility] ABX [facility] Free 6 MO-64 YRS HPV9 2021-12-30 Completed [facility] 00:00:00 [facility] HPV9 2021-12-30 Completed [facility] 00:00:00 [facility] HPV9 2021-12-30 Completed [facility] 00:00:00 [facility] HPV9 2021-12-30 Completed [facility] 00:00:00 [facility] HPV9 2021-12-30 Completed [facility] 00:00:00 [facility] HPV9 2021-12-30 Completed [facility] 00:00:00 [facility] HPV9 2021-12-30 Completed [facility] 00:00:00 [facility] HPV9 2021-12-30 Completed [facility] 00:00:00 [facility] HPV9 2021-12-30 Completed [facility] 00:00:00 [facility] HPV9 2021-12-30 Completed [facility] 00:00:00 [facility] HPV9 2021-12-30 Completed [facility] 00:00:00 [facility] HPV9 2021-12-30 Completed [facility] 00:00:00 [facility] HPV9 2021-12-30 Completed [facility] 00:00:00 [facility] HPV9 2021-12-30 Completed [facility] 00:00:00 [facility] HPV9 2021-12-30 Completed [facility] 00:00:00 [facility] HPV9 2021-12-30 Completed [facility] 00:00:00 [facility] HPV9 2021-12-30 Completed [facility] 00:00:00 [facility] HPV9 2021-12-30 Completed [facility] 00:00:00 [facility] HPV9 2021-12-30 Completed [facility] 00[facility]00:00 [facility] HPV9 2021-12-30 Completed [facility] 00:00:00 [facility] HPV9 2021-12-30 Completed [facility] 00:00:00 [facility] HPV9 2021-12-30 Completed [facility] 00:00:00 [facility] HPV9 2021-12-30 Completed [facility] 00:00:00 [facility] HPV9 2021-12-30 Completed [facility] 00:00:00 [facility] HPV9 2021-12-30 Completed [facility] 00:00:00 [facility] HPV9 2021-12-30 Completed [facility] 00:00:00 [facility] HPV9 2021-12-30 Completed [facility] 00:00:00 [facility] HPV9 2021-12-30 Completed [facility] 00:00:00 [facility] HPV9 2021-12-30 Completed [facility] 00:00:00 [facility] HPV9 2021-12-30 Completed [facility] 00:00:00 [facility] HPV9 2021-12-30 Completed [facility] 00:00:00 [facility] HPV9 2021-12-30 Completed [facility] 00:00:00 [facility] HPV9 2021-12-30 Completed [facility] 00:00:00 [facility] HPV9 2021-12-30 Completed [facility] 00:00:00 [facility] HPV9 2021-12-30 Completed [facility] 00:00:00 [facility] HPV9 2021-12-30 Completed [facility] 00:00:00 [facility] HPV9 2021-12-30 Completed [facility] 00:00:00 [facility] HPV9 2021-12-30 Completed [facility] 00:00:00 [facility] HPV9 2021-12-30 Completed [facility] 00:00:00 [facility] HPV9 2021-12-30 Completed [facility] 00:00:00 [facility] HPV9 2021-12-30 Completed [facility] 00:00:00 [facility] HPV9 2021-12-30 Completed [facility] 00:00:00 [facility] HPV9 2021-12-30 Completed [facility] 00:00:00 [facility] HPV9 2021-12-30 Completed [facility] 00:00:00 [facility] HPV9 2021-12-30 Completed [facility] 00:00:00 [facility] HPV9 2021-12-30 Completed [facility] 00:00:00 [facility] HPV9 2021-12-30 Completed [facility] 00:00:00 [facility] HPV9 2021-12-30 Completed [facility] 00:00:00 [facility] HPV9 2021-12-30 Completed [facility] 00:00:00 [facility] HPV9 2021-12-30 Completed [facility] 00:00:00 [facility] HPV9 2021-12-30 Completed [facility] 00:00:00 [facility] HPV9 2021-12-30 Completed [facility] 00:00:00 [facility] HPV9 2021-12-30 Completed [facility] 00:00:00 [facility] HPV9 2021-12-30 Completed [facility] 00:00:00 [facility] HPV9 2021-12-30 Completed [facility] 00:00:00 [facility] HPV9 2021-12-30 Completed [facility] 00:00:00 [facility] HPV9 2021-12-30 Completed [facility] 00:00:00 [facility] HPV9 2021-12-30 Completed [facility] 00:00:00 [facility] HPV9 2021-12-30 Completed [facility] 00:00:00 [facility] HPV9 2021-12-30 Completed [facility] 00:00:00 [facility] HPV9 2021-12-30 Completed [facility] 00:00:00 [facility] HPV9 2021-12-30 Completed [facility] 00:00:00 [facility] HPV9 2021-12-30 Completed [facility] 00:00:00 [facility] HPV9 2021-12-30 Completed [facility] 00:00:00 [facility] HPV9 2021-12-30 Completed [facility] 00:00:00 [facility] HPV9 2021-12-30 Completed [facility] 00:00:00 [facility] HPV9 2021-12-30 Completed [facility] 00:00:00 [facility] HPV9 2021-12-30 Completed [facility] 00:00:00 [facility] HPV9 2021-12-30 Completed [facility] 00:00:00 [facility] HPV9 2021-12-30 Completed [facility] 00:00:00 [facility] HPV9 2021-12-30 Completed [facility] 00:00:00 [facility] HPV9 2021-12-30 Completed [facility] 00:00:00 [facility] HPV9 2021-12-30 Completed [facility] 00:00:00 [facility] HPV9 2021-12-30 Completed [facility] 00:00:00 [facility] HPV9 2021-12-30 Completed [facility] 00:00:00 [facility] HPV9 2021-12-30 Completed [facility] 00:00:00 [facility] HPV9 2021-12-30 Completed [facility] 00:00:00 [facility] HPV9 2021-12-30 Completed [facility] 00:00:00 [facility] HPV9 2021-12-30 Completed [facility] 00:00:00 [facility] HPV9 2021-12-30 Completed [facility] 00:00:00 [facility] HPV9 2021-12-30 Completed [facility] 00:00: [facility] HPV9 2021-12-30 Completed [facility] 00:00:00 [facility] HPV9 2021-12-30 Completed [facility] 00:00:00 [facility] HPV9 2021-12-30 Completed [facility] 00:00:00 [facility] HPV9 2021-12-30 Completed [facility] 00:00:00 [facility] HPV9 2021-12-30 Completed [facility] 00:00:00 [facility] HPV9 2021-12-30 Completed [facility] 00:00:00 [facility] HPV9 2021-12-30 Completed [facility] 00:00:00 [facility] HPV9 2021-12-30 Completed [facility] 00:00:00 [facility] SARS-COV-2 COVID-19 2020-09-17 Completed [facility] of VACCINE - (MODERNA) 00:00:00 [facility] SARS-COV-2 COVID-19 2020-09-17 Completed [facility] of VACCINE - (MODERNA) 00:00:00 [facility] SARS-COV-2 COVID-19 2020-09-17 Completed [facility] of VACCINE - (MODERNA) 00:00:00 [facility] SARS-COV-2 COVID-19 2020-09-17 Completed [facility] of VACCINE - (MODERNA) 00:00:00 [facility] SARS-COV-2 COVID-19 2020-09-17 Completed [facility] of VACCINE - (MODERNA) 00:00:00 [facility] SARS-COV-2 COVID-19 2020-09-17 Completed [facility] of VACCINE - (MODERNA) 00:00:00 [facility] SARS-COV-2 COVID-19 2020-09-17 Completed [facility] of VACCINE - (MODERNA) 00:00:00 [facility] SARS-COV-2 COVID-19 2020-09-17 Completed [facility] of VACCINE - (MODERNA) 00:00:00 [facility] SARS-COV-2 COVID-19 2020-09-17 Completed [facility] of VACCINE - (MODERNA) 00:00:00 [facility] SARS-COV-2 COVID-19 2020-09-17 Completed [facility] of VACCINE - (MODERNA) 00:00:00 [facility] SARS-COV-2 COVID-19 2020-09-17 Completed [facility] of VACCINE - (MODERNA) 00:00:00 [facility] SARS-COV-2 COVID-19 2020-09-17 Completed [facility] of VACCINE - (MODERNA) 00:00:00 [facility] SARS-COV-2 COVID-19 2020-09-17 Completed [facility] of VACCINE - (MODERNA) 00:00:00 [facility] SARS-COV-2 COVID-19 2020-09-17 Completed [facility] of VACCINE - (MODERNA) 00:00:00 [facility] SARS-COV-2 COVID-19 2020-09-17 Completed [facility] of VACCINE - (MODERNA) 00:00:00 [facility] SARS-COV-2 COVID-19 2020-09-17 Completed [facility] of VACCINE - (MODERNA) 00:00:00 [facility] SARS-COV-2 COVID-19 2020-09-17 Completed [facility] of VACCINE - (MODERNA) 00:00:00 [facility] SARS-COV-2 COVID-19 2020-09-17 Completed [facility] of VACCINE - (MODERNA) 00:00:00 [facility] SARS-COV-2 COVID-19 2020-09-17 Completed [facility] of VACCINE - (MODERNA) 00:00:00 [facility] SARS-COV-2 COVID-19 2020-09-17 Completed [facility] of VACCINE - (MODERNA) 00:00:00 [facility] SARS-COV-2 COVID-19 2020-09-17 Completed [facility] of VACCINE - (MODERNA) 00:00:00 [facility] SARS-COV-2 COVID-19 2020-09-17 Completed [facility] of VACCINE - (MODERNA) 00:00:00 [facility] SARS-COV-2 COVID-19 2020-09-17 Completed [facility] of VACCINE - (MODERNA) 00:00:00 [facility] SARS-COV-2 COVID-19 2020-09-17 Completed [facility] of VACCINE - (MODERNA) 00:00:00 [facility] SARS-COV-2 COVID-19 2020-09-17 Completed [facility] of VACCINE - (MODERNA) 00:00:00 [facility] SARS-COV-2 COVID-19 2020-09-17 Completed [facility] of VACCINE - (MODERNA) 00:00:00 [facility] SARS-COV-2 COVID-19 2020-09-17 Completed [facility] of VACCINE - (MODERNA) 00:00:00 [facility] SARS-COV-2 COVID-19 2020-09-17 Completed [facility] of VACCINE - (MODERNA) 00:00:00 [facility] SARS-COV-2 COVID-19 2020-09-17 Completed [facility] of VACCINE - (MODERNA) 00:00:00 [facility] SARS-COV-2 COVID-19 2020-09-17 Completed [facility] of VACCINE - (MODERNA) 00:00:00 [facility] SARS-COV-2 COVID-19 2020-09-17 Completed [facility] of VACCINE - (MODERNA) 00:00:00 [facility] SARS-COV-2 COVID-19 2020-09-17 Completed [facility] of VACCINE - (MODERNA) 00:00:00 [facility] SARS-COV-2 COVID-19 2020-09-17 Completed [facility] of VACCINE - (MODERNA) 00:00:00 [facility] SARS-COV-2 COVID-19 2020-09-17 Completed [facility] of VACCINE - (MODERNA) 00:00:00 [facility] SARS-COV-2 COVID-19 2020-09-17 Completed [facility] of VACCINE - (MODERNA) 00:00:00 [facility] SARS-COV-2 COVID-19 2020-09-17 Completed [facility] of VACCINE - (MODERNA) 00:00:00 [facility] SARS-COV-2 COVID-19 2020-09-17 Completed [facility] of VACCINE - (MODERNA) 00:00:00 [facility] SARS-COV-2 COVID-19 2020-09-17 Completed [facility] of VACCINE - (MODERNA) 00:00:00 [facility] SARS-COV-2 COVID-19 2020-09-17 Completed [facility] of VACCINE - (MODERNA) 00:00:00 [facility] SARS-COV-2 COVID-19 2020-09-17 Completed [facility] of VACCINE - (MODERNA) 00:00:00 [facility] SARS-COV-2 COVID-19 2020-09-17 Completed [facility] of VACCINE - (MODERNA) 00:00:00 [facility] SARS-COV-2 COVID-19 2020-09-17 Completed [facility] of VACCINE - (MODERNA) 00:00:00 [facility] SARS-COV-2 COVID-19 2020-09-17 Completed [facility] of VACCINE - (MODERNA) 00:00:00 [facility] SARS-COV-2 COVID-19 2020-09-17 Completed [facility] of VACCINE - (MODERNA) 00:00:00 [facility] SARS-COV-2 COVID-19 2020-09-17 Completed [facility] of VACCINE - (MODERNA) 00:00:00 [facility] SARS-COV-2 COVID-19 2020-09-17 Completed [facility] of VACCINE - (MODERNA) 00:00:00 [facility] SARS-COV-2 COVID-19 2020-09-17 Completed [facility] of VACCINE - (MODERNA) 00:00:00 [facility] SARS-COV-2 COVID-19 2020-09-17 Completed [facility] of VACCINE - (MODERNA) 00:00:00 [facility] SARS-COV-2 COVID-19 2020-09-17 Completed [facility] of VACCINE - (MODERNA) 00:00:00 [facility] SARS-COV-2 COVID-19 2020-09-17 Completed [facility] of VACCINE - (MODERNA) 00:00:00 [facility] SARS-COV-2 COVID-19 2020-09-17 Completed [facility] of VACCINE - (MODERNA) 00:00:00 [facility] SARS-COV-2 COVID-19 2020-09-17 Completed [facility] of VACCINE - (MODERNA) 00:00:00 [facility] SARS-COV-2 COVID-19 2020-09-17 Completed [facility] of VACCINE - (MODERNA) 00:00:00 [facility] SARS-COV-2 COVID-19 2020-09-17 Completed [facility] of VACCINE - (MODERNA) 00:00:00 [facility] SARS-COV-2 COVID-19 2020-09-17 Completed [facility] of VACCINE - (MODERNA) 00:00:00 [facility] SARS-COV-2 COVID-19 2020-09-17 Completed [facility] of VACCINE - (MODERNA) 00:00:00 [facility] SARS-COV-2 COVID-19 2020-09-17 Completed [facility] of VACCINE - (MODERNA) 00:00:00 [facility] SARS-COV-2 COVID-19 2020-09-17 Completed [facility] of VACCINE - (MODERNA) 00:00:00 [facility] SARS-COV-2 COVID-19 2020-09-17 Completed [facility] of VACCINE - (MODERNA) 00:00:00 [facility] SARS-COV-2 COVID-19 2020-08-07 Completed [facility] of VACCINE - (MODERNA) 00:00:00 [facility] SARS-COV-2 COVID-19 2020-08-07 Completed [facility] of VACCINE - (MODERNA) 00:00:00 [facility] SARS-COV-2 COVID-19 2020-08-07 Completed [facility] of VACCINE - (MODERNA) 00:00:00 [facility] SARS-COV-2 COVID-19 2020-08-07 Completed [facility] of VACCINE - (MODERNA) 00:00:00 [facility] SARS-COV-2 COVID-19 2020-08-07 Completed [facility] of VACCINE - (MODERNA) 00:00:00 [facility] SARS-COV-2 COVID-19 2020-08-07 Completed [facility] of VACCINE - (MODERNA) 00:00:00 [facility] SARS-COV-2 COVID-19 2020-08-07 Completed [facility] of VACCINE - (MODERNA) 00:00:00 [facility] SARS-COV-2 COVID-19 2020-08-07 Completed [facility] of VACCINE - (MODERNA) 00:00:00 [facility] SARS-COV-2 COVID-19 2020-08-07 Completed [facility] of VACCINE - (MODERNA) 00:00:00 [facility] SARS-COV-2 COVID-19 2020-08-07 Completed [facility] of VACCINE - (MODERNA) 00:00:00 [facility] SARS-COV-2 COVID-19 2020-08-07 Completed [facility] of VACCINE - (MODERNA) 00:00:00 [facility] SARS-COV-2 COVID-19 2020-08-07 Completed [facility] of VACCINE - (MODERNA) 00:00:00 [facility] SARS-COV-2 COVID-19 2020-08-07 Completed [facility] of VACCINE - (MODERNA) 00:00:00 [facility] SARS-COV-2 COVID-19 2020-08-07 Completed [facility] of VACCINE - (MODERNA) 00:00:00 [facility] SARS-COV-2 COVID-19 2020-08-07 Completed [facility] of VACCINE - (MODERNA) 00:00:00 [facility] SARS-COV-2 COVID-19 2020-08-07 Completed [facility] of VACCINE - (MODERNA) 00:00:00 [facility] SARS-COV-2 COVID-19 2020-08-07 Completed [facility] of VACCINE - (MODERNA) 00:00:00 [facility] SARS-COV-2 COVID-19 2020-08-07 Completed [facility] of VACCINE - (MODERNA) 00:00:00 [facility] SARS-COV-2 COVID-19 2020-08-07 Completed [facility] of VACCINE - (MODERNA) 00:00:00 [facility] SARS-COV-2 COVID-19 2020-08-07 Completed [facility] of VACCINE - (MODERNA) 00:00:00 [facility] SARS-COV-2 COVID-19 2020-08-07 Completed [facility] of VACCINE - (MODERNA) 00:00:00 [facility] SARS-COV-2 COVID-19 2020-08-07 Completed [facility] of VACCINE - (MODERNA) 00:00:00 [facility] SARS-COV-2 COVID-19 2020-08-07 Completed [facility] of VACCINE - (MODERNA) 00:00:00 [facility] SARS-COV-2 COVID-19 2020-08-07 Completed [facility] of VACCINE - (MODERNA) 00:00:00 [facility] SARS-COV-2 COVID-19 2020-08-07 Completed [facility] of VACCINE - (MODERNA) 00:00:00 [facility] SARS-COV-2 COVID-19 2020-08-07 Completed [facility] of VACCINE - (MODERNA) 00:00:00 [facility] SARS-COV-2 COVID-19 2020-08-07 Completed [facility] of VACCINE - (MODERNA) 00:00:00 [facility] SARS-COV-2 COVID-19 2020-08-07 Completed [facility] of VACCINE - (MODERNA) 00:00:00 [facility] SARS-COV-2 COVID-19 2020-08-07 Completed [facility] of VACCINE - (MODERNA) 00:00:00 [facility] SARS-COV-2 COVID-19 2020-08-07 Completed [facility] of VACCINE - (MODERNA) 00:00:00 [facility] SARS-COV-2 COVID-19 2020-08-07 Completed [facility] of VACCINE - (MODERNA) 00:00:00 [facility] SARS-COV-2 COVID-19 2020-08-07 Completed [facility] of VACCINE - (MODERNA) 00:00:00 [facility] SARS-COV-2 COVID-19 2020-08-07 Completed [facility] of VACCINE - (MODERNA) 00:00:00 [facility] SARS-COV-2 COVID-19 2020-08-07 Completed [facility] of VACCINE - (MODERNA) 00:00:00 [facility] SARS-COV-2 COVID-19 2020-08-07 Completed [facility] of VACCINE - (MODERNA) 00:00:00 [facility] SARS-COV-2 COVID-19 2020-08-07 Completed [facility] of VACCINE - (MODERNA) 00:00:00 [facility] SARS-COV-2 COVID-19 2020-08-07 Completed [facility] of VACCINE - (MODERNA) 00:00:00 [facility] SARS-COV-2 COVID-19 2020-08-07 Completed [facility] of VACCINE - (MODERNA) 00:00:00 [facility] SARS-COV-2 COVID-19 2020-08-07 Completed [facility] of VACCINE - (MODERNA) 00:00:00 [facility] SARS-COV-2 COVID-19 2020-08-07 Completed [facility]ity of VACCINE - (MODERNA) 00:00:00 [facility] SARS-COV-2 COVID-19 2020-08-07 Completed [facility] of VACCINE - (MODERNA) 00:00:00 [facility] SARS-COV-2 COVID-19 2020-08-07 Completed [facility] of VACCINE - (MODERNA) 00:00:00 [facility] SARS-COV-2 COVID-19 2020-08-07 Completed [facility] of VACCINE - (MODERNA) 00:00:00 [facility] SARS-COV-2 COVID-19 2020-08-07 Completed [facility] of VACCINE - (MODERNA) 00:00:00 [facility] SARS-COV-2 COVID-19 2020-08-07 Completed [facility] of VACCINE - (MODERNA) 00:00:00 [facility] SARS-COV-2 COVID-19 2020-08-07 Completed [facility] of VACCINE - (MODERNA) 00:00:00 [facility] SARS-COV-2 COVID-19 2020-08-07 Completed [facility] of VACCINE - (MODERNA) 00:00:00 [facility] SARS-COV-2 COVID-19 2020-08-07 Completed [facility] of VACCINE - (MODERNA) 00:00:00 [facility] SARS-COV-2 COVID-19 2020-08-07 Completed [facility] of VACCINE - (MODERNA) 00:00:00 [facility] SARS-COV-2 COVID-19 2020-08-07 Completed [facility] of VACCINE - (MODERNA) 00:00:00 [facility] SARS-COV-2 COVID-19 2020-08-07 Completed [facility] of VACCINE - (MODERNA) 00:00:00 [facility] SARS-COV-2 COVID-19 2020-08-07 Completed [facility] of VACCINE - (MODERNA) 00:00:00 [facility] SARS-COV-2 COVID-19 2020-08-07 Completed [facility] of VACCINE - (MODERNA) 00:00:00 [facility] SARS-COV-2 COVID-19 2020-08-07 Completed [facility] of VACCINE - (MODERNA) 00:00:00 [facility] SARS-COV-2 COVID-19 2020-08-07 Completed [facility] of VACCINE - (MODERNA) 00:00:00 [facility] SARS-COV-2 COVID-19 2020-08-07 Completed [facility] of VACCINE - (MODERNA) 00:00:00 [facility] SARS-COV-2 COVID-19 2020-08-07 Completed [facility] of VACCINE - (MODERNA) 00:00:00 [facility] SARS-COV-2 COVID-19 2020-08-07 Completed [facility] of VACCINE - (MODERNA) 00:00:00 [facility] SARS-COV-2 COVID-19 2020-08-07 Completed [facility] of VACCINE - (MODERNA) 00:00:00 [facility] SARS-COV-2 COVID-19 2020-06-13 Completed [facility] of MODERNA 12+ YRS 00:00:00 [facility] SARS-COV-2 COVID-19 2020-06-13 Completed [facility] of MODERNA 12+ YRS 00:00:00 [facility] SARS-COV-2 COVID-19 2020-06-13 Completed [facility] of MODERNA 12+ YRS 00:00:00 [place] [facility] SARS-COV-2 COVID-19 2020-06-13 Completed [facility] of MODERNA 12+ YRS 00:00:00 [facility] SARS-COV-2 COVID-19 2020-06-13 Completed [facility] of MODERNA 12+ YRS 00:00:00 [facility] ical VACCINE Branch SARS-COV-2 COVID-19 2020-06-13 Completed [...] Time Observation Value Comments Source Systolic blood 2022-12-07 15:05:00 120 mm[Hg] Univer sity of pressure [facility] Diastolic blood 2022-12-07 15:05:00 64 mm[Hg] [facility] [facility] Heart rate 2022-12-07 15:05:00 85 /min [facility] Body temperature 2022-12-07 15:05:00 36.33 Tiffanie [facility] Respiratory rate 2022-12-07 15:05:00 20 /min [facility] Body height 2022-12-07 15:05:00 165.1 cm [facility] Body weight 2022-12-07 15:05:00 89.585 kg [facility] BMI 2022-12-07 15:05:00 32.87 kg/m2 [facility] Systolic blood 2022-11-16 14:49:00 126 mm[Hg] [facility] Diastolic blood 2022-11-16 14:49:00 67 mm[Hg] [facility] Heart rate 2022-11-16 14:49:00 91 /min [facility] Body temperature 2022-11-16 14:49:00 35.72 [place] [facility] Respiratory rate 2022-11-16 14:49:00 18 /min [facility] Body height 2022-11-16 14:49:00 165.1 cm [facility] Body weight 2022-11-16 14:49:00 86.546 kg [facility] BMI 2022-11-16 14:49:00 31.75 kg/m2 [facility] Systolic blood 2022-10-26 20:50:00 114 mm[Hg] [facility] Diastolic blood 2022-10-26 20:50:00 62 mm[Hg] [facility] Heart rate 2022-10-26 20:50:00 75 /min [facility] Body temperature 2022-10-26 20:50:00 36.06 [place] [facility] Respiratory rate 2022-10-26 20:50:00 18 /min [facility] Body height 2022-10-26 20:50:00 165.1 cm [facility] Body weight 2022-10-26 20:50:00 86.093 kg [facility] BMI 2022-10-26 20:50:00 31.58 kg/m2 [facility] Systolic blood 2022-09-18 20:35:00 124 mm[Hg] [facility] Diastolic blood 2022-09-18 20:35:00 71 mm[Hg] [facility]ive [facility] Heart rate 2022-09-18 20:35:00 78 /min [facility] Body temperature 2022-09-18 20:35:00 36.39 [place] [facility] Respiratory rate 2022-09-18 20:35:00 18 /min [facility] Body height 2022-09-18 20:35:00 165.1 cm [facility] Body weight 2022-09-18 20:35:00 79.465 kg [facility] BMI 2022-09-18 20:35:00 29.15 kg/m2 [facility] Systolic blood 2022-08-21 20:20:00 115 mm[Hg] [facility] Diastolic blood 2022-08-21 20:20:00 66 mm[Hg] [facility] Heart rate 2022-08-21 20:20:00 80 /min [facility] Body temperature 2022-08-21 20:20:00 35.61 [place] [facility] Respiratory rate 2022-08-21 20:20:00 18 /min [facility] Body height 2022-08-21 20:20:00 165.1 cm [facility] Body weight 2022-08-21 20:20:00 77.701 kg [facility] BMI 2022-08-21 20:20:00 28.51 kg/m2 [facility] Systolic blood 2022-07-24 18:20:00 120 mm[Hg] [facility] Diastolic blood 2022-07-24 18:20:00 66 mm[Hg] [facility] Heart rate 2022-07-24 18:20:00 60 /min [facility] Body temperature 2022-07-24 18:20:00 36.28 [place] [facility] Respiratory rate 2022-07-24 18:20:00 18 /min [facility] Body height 2022-07-24 18:20:00 165.1 cm [facility] Body weight 2022-07-24 18:20:00 77.021 kg [facility] BMI 2022-07-24 18:20:00 28.26 kg/m2 [facility] Systolic blood 2022-04-11 22:15:00 120 mm[Hg] [facility] Diastolic blood 2022-04-11 22:15:00 73 mm[Hg] [facility] Heart rate 2022-04-11 22:15:00 68 /min [facility] Body height 2022-04-11 22:15:00 167.6 cm [facility] Body weight 2022-04-11 22:15:00 81.647 kg [facility] BMI 2022-04-11 22:15:00 29.05 kg/m2 [facility] Oxygen saturation in 2022-04-11 22:15:00 99 /min [facility] Arterial blood by [facility]ait Pulse oxim[facility] Systolic blood 2022-03-28 21:22:00 116 mm[Hg] [facility] Diastolic blood 2022-03-28 21:22:00 71 mm[Hg] [facility] Heart rate 2022-03-28 21:22:00 70 /min [facility] Body temperature 2022-03-28 21:22:00 36.83 Tiffanie [facility] Respiratory rate 2022-03-28 21:22:00 16 /min [facility] Body height 2022-03-28 21:22:00 162.6 cm [facility] Body weight 2022-03-28 21:22:00 77.656 kg [facility] BMI 2022-03-28 21:22:00 29.39 kg/m2 [facility] Oxygen saturation in 2022-03-28 21:22:00 99 /min [facility] Arterial blood by [facility] Systolic blood 2022-03-27 16:40:00 116 mm[Hg] Univer sity of pressure [facility] Diastolic blood 2022-03-27 16:40:00 69 mm[Hg] Unive rsity of pressure [facility] Heart rate 2022-03-27 16:40:00 74 /min Universi [facility] of [facility] Body temperature 2022-03-27 16:40:00 37.11 Tiffanie [facility] Respiratory rate 2022-03-27 16:40:00 18 /min [facility] Body height 2022-03-27 16:40:00 162.6 cm Universi ty of [facility] Body weight 2022-03-27 16:40:00 77.565 kg Universi ty of [facility] BMI 2022-03-27 16:40:00 29.35 kg/m2 [facility] of [facility] Systolic blood 2022-03-24 00:54:08 122 mm[Hg] Univer sity of pressure [facility] Diastolic blood 2022-03-24 00:54:08 77 mm[Hg] Unive rsity of pressure [facility] Heart rate 2022-03-24 00:54:08 85 /min Universi ty of [facility] Body temperature 2022-03-24 00:54:08 36.39 Tiffanie [facility] Respiratory rate 2022-03-24 00:54:08 18 /min [facility] Oxygen saturation in 2022-03-24 00:54:08 100 /min [facility] Arterial blood by [facility] Pulse oximetry Branch Body weight 2022-03-23 19:30:00 81.647 kg [facility] BMI 2022-03-23 19:30:00 29.95 kg/m2 Universi ty of [facility] Systolic blood 2022-03-23 18:51:00 112 mm[Hg] Univer sity of pressure [facility] Diastolic blood 2022-03-23 18:51:00 70 mm[Hg] Unive rsity of pressure [facility] Heart rate 2022-03-23 18:51:00 2 /min Universi ty of [facility] Body temperature 2022-03-23 18:51:00 37.22 Tiffanie [facility] Respiratory rate 2022-03-23 18:51:00 17 /min [facility] Body weight 2022-03-23 18:51:00 72.576 kg [facility] BMI 2022-03-23 18:51:00 26.63 kg/m2 [facility] Oxygen saturation in 2022-03-23 18:51:00 100 /min [facility] Arterial blood by [facility] Pulse oximetry Branch Systolic blood 2022-03-15 20:07:00 108 mm[Hg] [facility] Diastolic blood 2022-03-15 20:07:00 69 mm[Hg] [facility] Heart rate 2022-03-15 20:07:00 73 /min [facility] [place] Body temperature 2022-03-15 20:07:00 37.06 [place] [facility] Respiratory rate 2022-03-15 20:07:00 18 /min [facility] Body height 2022-03-15 20:07:00 165.1 cm [facility] Body weight 2022-03-15 20:07:00 78.019 kg [facility] BMI 2022-03-15 20:07:00 28.62 kg/m2 [facility] Systolic blood 2022-02-22 21:55:00 117 mm[Hg] [facility] Diastolic blood 2022-02-22 21:55:00 71 mm[Hg] [facility] Heart rate 2022-02-22 21:55:00 69 /min [facility] Body temperature 2022-02-22 21:55:00 36.67 Tiffanie [facility] Respiratory rate 2022-02-22 21:55:00 18 /min [facility] Body height 2022-02-22 21:55:00 165.1 cm [facility] Body weight 2022-02-22 21:55:00 77.111 kg [facility] BMI 2022-02-22 21:55:00 28.29 kg/m2 [facility] Systolic blood 2022-01-24 20:48:00 113 mm[Hg] [facility] Diastolic blood 2022-01-24 20:48:00 69 mm[Hg] [facility]ive [facility] Heart rate 2022-01-24 20:48:00 74 /min [facility] Body temperature 2022-01-24 20:48:00 36.72 Tiffanie [facility] Respiratory rate 2022-01-24 20:48:00 18 /min [facility] Body height 2022-01-24 20:48:00 165.1 cm [facility] Body weight 2022-01-24 20:48:00 75.751 kg [facility] BMI 2022-01-24 20:48:00 27.79 kg/m2 [facility] Systolic blood 2022-01-06 18:28:00 110 mm[Hg] [facility] Diastolic blood 2022-01-06 18:28:00 69 mm[Hg] [facility] Heart rate 2022-01-06 18:28:00 74 /min [facility] Body temperature 2022-01-06 18:28:00 36.89 Tiffanie [facility] Respiratory rate 2022-01-06 18:28:00 18 /min [facility] Body height 2022-01-06 18:28:00 160 cm [facility] Body weight 2022-01-06 18:28:00 75.841 kg [facility] BMI 2022-01-06 18:28:00 29.62 kg/m2 [facility] Systolic blood 2021-12-30 15:10:00 116 mm[Hg] [facility] Diastolic blood 2021-12-30 15:10:00 79 mm[Hg] [facility]ive [facility] Heart rate 2021-12-30 15:10:00 78 /min [facility] Body temperature 2021-12-30 15:10:00 36.78 Tiffanie [facility] Respiratory rate 2021-12-30 15:10:00 18 /min [facility] Body height 2021-12-30 15:10:00 160 cm [facility] Body weight 2021-12-30 15:10:00 75.841 kg [facility] BMI 2021-12-30 15:10:00 29.62 kg/m2 [facility] Procedures Procedure Date / Time Performing Clinician Source Performed POCT URINALYSIS 2022-12-07 00:00:00 Shanthi Bauer [facility] POCT URINALYSIS 2022-11-16 14:50:00 Shanthi Bauer [facility] MISCELLANEOUS SENDOUT 2022-11-10 05:01:00 Doctor Unassigned, No [facility] TEST [facility] SECOND AND THIRD 2022-10-31 20:25:00 Shanthi Bauer [facility] TRIMESTER ULTRASOUND [facility] SECOND AND THIRD 2022-10-31 20:20:00 Shanthi Bauer [facility] TRIMESTER ULTRASOUND [facility] POCT URINALYSIS 2022-10-26 20:52:00 Shanthi Bauer [facility] POCT URINALYSIS 2022-09-18 20:36:00 Shanthi Bauer [facility] POCT URINALYSIS 2022-08-21 20:21:00 Shanthi Bauer [facility] FLU VACC ([id number]), 6 2022-07-24 19:22:36 Shanthi Bauer [facility] MO-63 YRS, .5ML, IM, [facility] QUAD (FLUCELVAX) POCT URINALYSIS W/O 2022-07-24 18:12:00 [facility] POCT TEST 2022-07-24 18:11:00 Shanthi Bauer [facility] REPORT OF 2022-07-24 05:01:00 Doctor Unassigned, No [facility]ENEFITS 2022-07-10 14:33:07 Doctor Unassigned, No [facility] US OB TRANSVAGINAL 2022-03-28 22:39:19 Adum, Rosibel [place] [facility] GARDASIL 9 (HPV 9V) 2022-03-28 22:12:39 Adum, Rosibel Montana [facility] VACCINE [facility] CL[facility] ULTRASOUND 2022-03-28 06:01:00 Doctor Unassigned, No [facility] PHYSICIAN ORDERS 2022-03-27 06:01:00 Doctor Unassigned, No Unive [facility] US FIRST 2022-03-24 20:40:00 Amena [facility] TRIMESTER LESS THAN 14 [facility] WEEKS WITH TRANSVAGINAL CT CHEST PULMONARY 2022-03-23 22:38:[address] [facility] ANGIOGRAM Medical Branch D-DIMER 2022-03-23 20:59:00 Susan Martinez [facility] MAGNESIUM 2022-03-23 20:20:00 Michelle [facility] TROPONIN I 2022-03-23 20:20:00 Michelle [facility] COMP. METABOLIC PANEL 2022-03-23 20:20:00 [facility] ([id number]) [facility] CBC WITH DIFF 2022-03-23 20:20:00 Michelle [facility] URINALYSIS 2022-03-23 20:20:00 Michelle [facility] N-TERMINAL PRO-BNP 2022-03-23 20:20:00 Susan Martinez [facility] CONSENT/REFUSAL FOR 2022-03-23 19:04:36 Doctor Unassigned, No [facility] POCT URINALYSIS W/O 2022-03-15 20:09:00 [facility]VITY [facility] US FIRST 2022-03-03 20:49:57 Amena Betancourt [facility] TRIMESTER LESS THAN 14 [place] WEEKS WITH TRANSVAGINAL GC & CHLAMYDIA AMPLIFIED 2022-02-22 22:34:00 Amena Betancourt [facility] ASSAY [facility] TRICHOMONAS AMPLIFIED 2022-02-22 22:34:00 [facility]ACC (), 6 2022-02-22 22:18:33 Amena Betancourt [facility] MO-63 YRS, .5ML, IM, [facility] QUAD (FLUCELVAX) POCT URINALYSIS W/O 2022-02-22 00:00:00 Amena Betancourt [facility] SPECIFIC GRAVITY [facility] ASSIGNMENT OF BENEFITS 2022-02-18 14:49:18 Doctor Unassigned, No [facility] Name [facility] POCT TEST 2022-01-06 18:43:00 Jareth Olmedo [facility] GARDASIL 9 (HPV 9V) 2021-12-30 16:46:05 Jareth Olmedo [facility] VACCINE [facility] POCT TEST 2021-12-30 15:29:00 [facility] Encounters Start End Encounter Admission Attending Care Care Encounter Source Date/Time Date/Time Type Type Clinicians Facility Department ID 2021-07-09 Outpatient [facility] [id number] [place] 00:38:59 [facility] 2022-12-12 2022-12-12 Outpatient P [facility] [id number] Univers 15:30:00 15:30:00 ity of [facility] 2022-12-07 2022-12-07 Outpatient R AKINJEOVANNYPE, [facility] [id number] Univers 10:30:00 11:43:28 SHANTHISTEW canas o f [facility] 2022-12-07 2022-12-07 Routine Akinjeovannype, [facility] [id number] Univers 10:30:00 11:43:28 Shanthi Freeman PUBLIC HEALTH DENTIST 350.1.13.10 ity of Visit REGIONAL 4.2.7.2.686 Anil as MATERNAL [id number] Med ical & CHILD [address] [place] [address] 2022-11-17 2022-11-17 Telephone Candido [facility] 1.2.840.114 [id number] Univers 00:00:00 00:00:00 Amber SPECIALTY 350.1.13.10 it[place] [id number] [address] 2022-11-16 2022-11-16 Outpatient R THEA [facility] [id number] Univers 10:30:00 10:36:09 SHANTHI ity o f [facility] 2022-11-16 2022-11-16 Routine [facility] [id number] Univers 10:30:00 10:36:09 Shanthi C PUBLIC HEALTH DENTIST 350.1.13.10 ity of Visit REGIONAL 4.2.7.2.686 Anil as MATERNAL [id number] [facility] & CHILD [address] [place] [address] 2022-11-10 2022-11-10 Outpatient R JA SALDANA [facility] [id number] Univers 09:45:00 10:30:26 ity of [facility] 2022-11-10 2022-11-10 Telemedici Amber Rey [facility] 1.2.8 [id number] Univers 09:45:00 10:30:26 ne Visit Ja Saldana PUBLIC HEALTH DENTIST 350.1.13.10 ity of [facility] 4.2.7.2.686 Anil as MATERNAL [id number] [facility] & [address] 2022-11-10 2022-11-10 Telephone [facility] 1.2.840.114 [id number] Univers 00:00:00 00:00:00 Shanthi C PUBLIC HEALTH DENTIST 350.1.13.10 ity of REGIONAL 4.2.7.2.686 Anil as MATERNAL [id number] [facility] & CHILD [address] [place] [address] 2022-11-10 2022-11-10 Orders Doctor PALACIOS 1.2.840.114 [id number] Univers 00:00:00 00:00:00 Only Unassigned, JOYCE 350.1.13.10 ity of Maybeury [facility] 4.2.7.2.686 Anil as [id number] [address] 2022-11-07 2022-11-07 Abstract [facility] 1.2.840.114 [id number] Univers 00:00:00 00:00:00 Shanthi C PUBLIC HEALTH DENTIST 350.1.13.10 ity of REGIONAL 4.2.7.2.686 Anil as MATERNAL [id number] Med ical & CHILD [address] [place] [address] 2022-11-07 2022-11-07 Telephone [facility] 1.2.840.114 [id number] Univers 00:00:00 00:00:00 Shanthi C PUBLIC HEALTH DENTIST 350.1.13.10 ity of REGIONAL 4.2.7.2.686 Anil as MATERNAL [id number] [facility] & CHILD [address] [place] [address] 2022-10-31 2022-10-31 Outpatient P ALESHA [facility] [id number] Univers 14:00:00 15:26:34 LISA it y of S, YOU [facility] 2022-10-31 2022-10-31 Revenue [employer]amper Ultrasound, [facility] 1.2 .840.114 [id number] Univers 14:00:00 15:26:34 Visit Alesha Bergershelton You PUBLIC HEALTH DENTIST 350.1. 13.10 ity of REGIONAL 4.2.7.2.686 Anil as MATERNAL [id number] [facility] ical & CHILD [address] [facility] 2022-10-26 2022-10-26 Outpatient R [facility] [id number] Univers 15:45:00 16:10:05 SHANTHI ity o f [facility] 2022-10-26 2022-10-26 Routine [facility] [id number] Univers 15:45:00 16:10:05 Shanthi C PUBLIC HEALTH DENTIST 350.1.13.10 ity of Visit REGIONAL 4.2.7.2.686 Anil as MATERNAL [id number] [facility] [address] [place] [address] 2022-10-20 2022-10-20 Telephone [facility] 1.2.840.114 [id number] Univers 00:00:00 00:00:00 Shanthi C PUBLIC HEALTH DENTIST 350.1.13.10 ity of REGIONAL 4.2.7.2.686 Anil as MATERNAL [id number] [facility] [address] [place] [address] 2022-10-19 2022-10-19 Refill [facility] [id number] Univers 00:00:00 00:00:00 Shanthi C PUBLIC HEALTH DENTIST 350.1.13.10 ity of [facility] 4.2.7.2.686 Anil as MATERNAL [id number] [address] 2022-10-18 2022-10-18 [facility] [id number] Univers 00:00:00 00:00:00 Shanthi C PUBLIC HEALTH DENTIST 350.1.13.10 ity of [facility] 4.2.7.2.686 Anil as MATERNAL [id number] [facility] & CHILD [address] [place] [address] 2022-10-16 2022-10-16 Outpatient Jeri WOLF [facility] [id number] Univers 15:15:00 15:15:00 SANIYA [facility] 2022-10-06 2022-10-06 Abstract [facility] 1.2.840.114 [id number] Univers 00:00:00 00:00:00 Shanthi C PUBLIC HEALTH DENTIST 350.1.13.10 ity of [facility] 4.2.7.2.686 Anil as MATERNAL [id number] [facility] & CHILD [address] [place] [address] 2022-09-29 2022-09-29 Outpatient P RUSTAM YU [facility] [id number] Univers 15:30:00 16:58:04 RUSTAM YU [facility] 2022-09-29 2022-09-29 Revenue Stamper 1, [facility] Us Room UNIVERSIT 1 .2.840.114 [id number] Univers 15:30:00 16:58:04 Visit Rustam Yu [facility] 350.1.13.10 ity of [place] [id number] [address] 2022-09-22 2022-09-22 Outpatient P RUSTAM YU [facility] [id number] Univers 15:15:00 15:15:00 RUSTAM YU [facility] 2022-09-18 2022-09-18 [facility] [id number] Univers 15:00:00 16:06:28 SHANTHI ity o f [facility] 2022-09-18 2022-09-18 Routine Saniya Wolf [facility] 1.2.84 0.114 [id number] Univers 15:00:00 16:06:28 Shanthi Bauer PUBLIC HEALTH DENTIST 350.1.13 .10 ity of Visit REGIONAL 4.2.7.2.686 Anil as MATERNAL [id number] Med ical & CHILD [address] [place] [address] 2022-08-21 2022-08-21 Outpatient R AKINJEOVANNYPE, [facility] [id number] Univers 14:45:00 15:43:20 SHANTHI ity o [facility] 2022-08-21 2022-08-21 Routine [facility] [id number] Univers 14:45:00 15:43:20 Shanthi C PUBLIC HEALTH DENTIST 350.1.13.10 ity of Visit [facility] 4.2.7.2.686 Anil as MATERNAL [id number] Med ical & CHILD [address] [place] [address] 2022-08-21 2022-08-21 Outpatient R AKINSIPE, [facility] [id number] Univers 10:30:00 10:30:00 SHANTHI ity o [facility] 2022-08-15 2022-08-15 Abstract [facility] 1.2.840.114 [id number] Univers 00:00:00 00:00:00 Shanthi C PUBLIC HEALTH DENTIST 350.1.13.10 ity of REGIONAL 4.2.7.2.686 Anil as MATERNAL [id number] Med ical & CHILD [facility] 2022-08-14 2022-08-14 Outpatient P BHARATH [facility] [id number] Univers 08:30:00 09:12:30 ALBERTO [facility] 2022-08-14 2022-08-14 Revenue Stamper Ultrasound, Emiliano [facility] 1.2 .840.114 [id number] Univers 08:30:00 09:00:00 Visit Alberto Montes PUBLIC HEALTH DENTIST 350.1.13.10 ity of REGIONAL 4.2.7.2.686 Anil as MATERNAL [id number] Med ical & CHILD [address] [facility] 2022-08-09 2022-08-09 [facility] [id number] Univers 00:00:00 00:00:00 Secure Msg Shanthi Freeman PUBLIC HEALTH DENTIST 350.1.13.10 ity of REGIONAL 4.2.7.2.686 Anil as MATERNAL [id number] [facility] ical & CHILD [address] [place] [address] 2022-08-03 2022-08-03 Telephone [facility] 1.2.840.114 [id number] Univers 00:00:00 00:00:00 Shanthi C PUBLIC HEALTH DENTIST 350.1.13.10 ity of REGIONAL 4.2.7.2.686 Anil as MATERNAL [id number] [facility] [address] [place] [address] 2022-07-31 2022-07-31 Outpatient R DENITA [facility] [id number] Univers 09:30:00 13:38:09 TERRENCE canas [facility] 2022-07-31 2022-07-31 Telemedici Faculty, [facility] 1.2.840.114 [id number] Univers 09:30:00 10:00:00 ne Visit Terrence Barron PUBLIC HEALTH DENTIST 350.1.13. 10 ity of REGIONAL 4.2.7.2.686 Anil as MATERNAL [id number] [facility] ical & CHILD [address] [place] [address] 2022-07-28 2022-07-28 Telephone [facility] 1.2.840.114 10 [id number] Univers 00:00:00 00:00:00 Shanthi C PUBLIC HEALTH DENTIST 350.1.13.10 ity of REGIONAL 4.2.7.2.686 Anil as MATERNAL [id number] [facility] & [address] 2022-07-27 2022-07-27 Outpatient R JO ANN [facility] [id number] Univers 10:15:00 10:15:00 ADILSON joyce [facility] 2022-07-25 2022-07-25 Outpatient R AMENA BETANCOURT [facility] B [id number] Univers 15:30:00 15:30:00 AMENA BETANCOURT [facility] 2022-07-25 2022-07-25 [facility] 1.2.840.114 10 [id number] Univers 00:00:00 00:00:00 Shanthi C PUBLIC HEALTH DENTIST 350.1.13.10 ity of [facility] 4.2.7.2.686 Anil as MATERNAL [id number] [address] 2022-07-24 2022-07-24 Initial [facility] 1.2.504.608 [id number] Univers 14:00:00 14:45:45 Shanthi C PUBLIC HEALTH DENTIST 350.1.13.10 ity of Visit REGIONAL 4.2.7.2.686 Anil as MATERNAL [id number] [facility] & [address] 2022-07-24 2022-07-24 [facility] [id number] Univers 13:30:00 12:53:06 SHANTHI ity o f [facility] 2022-07-24 2022-07-24 Orders Doctor PALACIOS 1.2.840.114 [id number] Univers 00:00:00 00:00:00 Only Unassigned, JOYCE 350.1.13.10 ity of [place] [facility] 4.2.7.2.686 Anil as [id number] [address] 2022-07-14 2022-07-14 Outpatient R AMENA BETANCOURT [facility] B [id number] Univers 16:30:00 16:30:00 ASIA HOLLANDANDRES canas [facility] 2022-07-14 2022-07-14 Telephone KOLBY Betancourt SANCHEZ 1.2.840.11 4 [id number] Univers 00:00:00 00:00:00 Amena LES 350.1.13.10 it y [place] [id number] [facility] [address] [place] 2022-07-10 2022-07-10 Revenue Stamper An, Adc Lab Main [facility] 1.2.8 40.114 [id number] Univers 09:30:00 09:45:00 Visit Amena Betancourt 350.1.13. 10 ity of [place] [id number] [place] dic[address] 2022-07-10 2022-07-10 Outpatient R AMENA BETANCOURT [facility] B [id number] Univers 09:30:00 09:30:00 AMENA BETANCOURT [facility] 2022-07-10 2022-07-10 Orders Doctor PHILIP 1.2.840.[id number] [place] [address] 00:00:00 00:00:00 Only Unassigned, JOYCE 350.1.13.10 ity of [place] [facility] 4.2.7.2.686 Anil as [id number] [place] [address] [address] 2022-07-05 2022-07-05 Outpatient R AMENA BETANCOURT [facility] B [id number] Univers 15:45:00 15:45:00 AMENA BETANCOURT [facility] 2022-06-06 2022-06-06 Telephone Asia [facility] SANCHEZ 1.2.840.11 4 [id number] Univers 00:00:00 00:00:00 Amena SALDANA 350.1.13.10 it y of [place] [id number] [address] 2022-05-18 2022-05-18 Revenue Stamper Pob, Adc Lab Main [facility] 1.2.8 40.114 [id number] Univers 16:00:00 16:15:00 Visit CarlosAmena doABHINAV 350.1.13. 10 ity of [facility] 4.2.7.2.[place] [id number] [address] 2022-05-18 2022-05-18 Outpatient R CARLOSHI AMENA [facility] B [id number] Univers 16:00:00 16:00:00 CARLOSAMENA DO [facility] 2022-04-25 2022-04-25 [facility]phone [facility] 1.2.840.11 4 [id number] Univers 00:00:00 00:00:00 Amena LES 350.1.13.10 it y of [place] [id number] [address] 2022-04-19 2022-04-19 Outpatient R CARLOSHOLLAND DOANDRES [facility] B [id number] Univers 11:30:00 11:30:00 CARLOSAMENA DO [facility] 2022-04-11 2022-04-11 [facility] 1.2.840.114 [id number] Univers 16:30:00 16:30:00 Visit Amena SALDANA 350.1.13.10 it y of [place] [id number] [address] 2022-04-11 2022-04-11 Outpatient R SAVANAAMENA WALLER [facility] B [id number] Univers 16:30:00 16:26:25 CARLOSAMENA DO [facility] 2022-04-11 2022-04-11 Telephone [facility] 1.2.840.114 [id number] Univers 00:00:00 00:00:00 Rosibel SALDANA 350.1.13.10 i ty of [place] [id number] [address] 2022-04-07 2022-04-07 Outpatient R AMENA BETANCOURT [facility] B [id number] Univers 14:30:00 14:30:00 AMENA BETANCOURT joyce [facility] 2022-04-04 2022-04-04 Telephone Asia [facility] DANIEL 1.2.840.11 4 [id number] Univers 00:00:00 00:00:00 Amena SALDANA 350.1.13.10 it y of [place] [id number] [address] 2022-03-29 2022-03-29 Outpatient R AMENA BETANCOURT [facility] B [id number] Univers 15:45:00 15:45:00 MARAIELENAAMENA ABERNATHY joyce [facility] 2022-03-28 2022-03-28 Outpatient R [facility] [id number] Univers 15:00:00 16:28:45 ROSIBEL felizjoyce [facility] 2022-03-28 2022-03-28 [facility] 1.2.937.432 [id number] Univers 15:00:00 16:28:45 Rosibel [place] LES 350.1.13.10 ity of [place] [id number] [address] 2022-03-28 2022-03-28 Orders Doctor PHILIP 1.2.840.114 [id number] Univers 00:00:00 00:00:00 Only Unassigned, JOYCE 350.1.13.10 ity of [place] [facility]ITAL 4.2.7.2.686 Anil as [id number] [place] [address] [address] 2022-03-27 2022-03-27 Revenue Stamper Lab, Ang - Db [facility] 1.2.840.1 14 [id number] Univers 11:30:00 11:45:00 Visit Amena Betancourt 350.1.13.1 0 ity of [facility] 4.2.7.2.686 Anil as REENA?BLEA [id number] Wa lili MARY [address] [place] [address] MEDICAL OFFICE BUILDING 2022-03-27 2022-03-27 Routine [facility] 1.2.840.114 [id number] Univers 11:15:00 11:15:00 Amena SALDANA 350.1.13.10 i ty of Visit WOMEN'S 4.2.7.2.686 [facility] [id number] [address] 2022-03-27 2022-03-27 Outpatient R AMENA BETANCOURT [facility] B [id number] Univers 11:15:00 10:54:35 [facility] 2022-03-27 2022-03-27 Orders Doctor PHILIP 1.2.840.114 [id number] Univers 00:00:00 00:00:00 Only Unassigned, JOYCE 350.1.13.10 ity of [place] [facility] 4.2.7.2.686 [facility] [id number] [facility] [address] 2022-03-27 2022-03-27 Telephone [facility] 1.2.840.11 4 [id number] Univers 00:00:00 00:00:00 Amena SALDANA 350.1.13.10 it y of WOMEN'S 4.2.7.2.686 [facility] [id number] [address] 2022-03-24 2022-03-24 Outpatient [facility] [id number] Univers 13:30:16 23:59:00 [facility] 2022-03-24 2022-03-24 [facility] 1.2.840.114 9 [id number] Univers 13:30:16 23:59:00 Encounter Amena MIRNA 350.1.13.10 ity of [place] 4.2.7.2.686 [facility] [id number] [facility] [address] [place] 2022-03-24 2022-03-24 Telephone [facility] 1.2.840.11 4 [id number] Univers 00:00:00 00:00:00 Amena LES 350.1.13.10 it y of WOMEN'S 4.2.7.2.686 [facility] [id number] [facility] [address] 2022-03-23 2022-03-23 Emergency X Susan MARTINEZ [facility] ERT [id number] Univers 13:31:00 19:01:00 ity of [facility] 2022-03-23 2022-03-23 Emergency Susan Martinez [facility] 1.2.840.114 [id number] Univers 13:31:00 19:01:00 Jeanine BRADLEY 350.1.13.10 i ty of [place] 4.2.7.2.686 [place] [facility] [id number] [facility] [address] 2022-03-23 2022-03-23 Nurse Nurse, [facility] 1.2.840.114 [id number] Univers 13:00:00 13:20:00 Visit Unknown, Attending [facility] 350.1.13.10 ity of [place] 4.2.7.2.686 Anil as REENA?BLEA [id number] [address] MEDICAL OFFICE BUILDING 2022-03-23 2022-03-23 Outpatient R CARLOS [facility] [id number] Univers 13:00:00 12:57:56 SAGAR [facility] 2022-03-23 2022-03-23 Orders Doctor PHILIP 1.2.840.114 [id number] Univers 00:00:00 00:00:00 Only Unassigned, JOYCE 350.1.13.10 ity of [place] [facility] 4.2.7.2.686 Anil as [id number] [facility] [address] 2022-03-15 2022-03-15 Outpatient R FABI [facility] [id number] Univers 16:00:00 16:00:00 ROSIBEL canas [facility] 2022-03-15 2022-03-15 Outpatient R AMENA BETANCOURT [facility] B [id number] Univers 13:45:00 14:37:26 AMENA BETANCOURT [facility] 2022-03-15 2022-03-15 Routine Asia [facility] SANCHEZ 1.2.840.114 [id number] Univers 13:45:00 14:37:26 Amena SALDANA 350.1.13.10 i ty of Visit [place] [id number] [address] 2022-03-15 2022-03-15 Outpatient R FABI [facility] [id number] Univers 10:15:00 10:15:00 ROSIBEL canas [facility] 2022 2022 Telephone [facility] 1.2.840.11 4 [id number] Univers 00:00:00 00:00:00 Amena SALDANA 350.1.13.10 it y [place] [id number] [address] 2022-03-09 2022-03-09 [facility] 1.2.840.11 4 [id number] Univers 00:00:00 00:00:00 Amena SALDANA 350.1.13.10 it y of [place] [id number] [address] 2022-03-07 2022-03-07 Telephone [facility] 1.2.840.11 4 [id number] Univers 00:00:00 00:00:00 Amena SALDANA 350.1.13.10 it y of [place] [id number] [address] 2022-03-07 2022-03-07 Telephone [facility] 1.2.840.11 4 [id number] Univers 00:00:00 00:00:00 Amena SALDANA 350.1.13.10 it y of [place] [id number] [address] 2022-03-06 2022-03-06 Outpatient R AMENA BETANCOURT [facility] B [id number] Univers 00:00:00 00:00:00 AMENA BETANCOURT [facility] 2022-03-06 2022-03-06 Telephone [facility] 1.2.840.11 4 [id number] Univers 00:00:00 00:00:00 Amena SALDANA 350.1.13.10 it y of [place] 4[place] [id number] [facility] [address] [place] 2022-03-05 2022-03-05 [facility] 1.2.840.114 [id number] Univers 00:00:00 00:00:00 Management Amena SALDANA 350.1.13.10 ity of [place] [id number] [address] 2022-03-03 2022-03-03 Outpatient R AMENA BETANCOURT [facility] B [id number] Univers 14:10:30 23:59:00 AMENA BETANCOURT ity [facility] 2022-03-03 2022-03-03 [facility] 1.2.840.114 [id number] Univers 14:00:00 23:59:00 Encounter Amena CROWABHINAV 350.1.13.10 ity of [facility] 4.2.7.2.686 [place] [id number] [facility] [address] [place] 2022-02-23 2022-02-23 [facility] 1.2.840.114 [id number] Univers 00:00:00 00:00:00 Management Amena SALDANA 350.1.13.10 ity of [place] [id number] [address] 2022-02-22 2022-02-22 Revenue Stamper An, Harmony Lab Main [facility] 1.2.8 40.114 [id number] Univers 16:45:00 17:00:00 Visit Amena Betancourt 350.1.13. 10 ity of [facility] 4.2.7.2.686 [place] [facility] [id number] Wa dical [facility] [address] [facility] 2022-02-22 2022-02-22 Outpatient R AMENA BETANCOURT [facility] B [id number] Univers 15:30:00 16:14:30 MARIAELENAAMENA ABERNATHY itjoyce of [facility] 2022-02-22 2022-02-22 Initial Asia [facility] 1.2.840.114 [id number] Univers 15:30:00 16:14:30 Amena SALDANA 350.1.13.10 i ty of Visit [place] 4.2.[place].2.[place] [id number] [address] 2022-02-20 2022-02-20 Revenue Stamper An, Adc Lab Main [facility] 1.2.8 40.114 [id number] Univers 13:15:00 13:30:00 Visit Asia Amena BRADLEY 350.1.13. 10 ity of [place] 4.2.7.2.686 [place] [id number] Wa dic[address] 2022-02-20 2022-02-20 Outpatient R ASIAHOLLANDANDRES [facility] B [id number] Univers 13:15:00 13:15:00 ASIAHOLLANDANDRES missael of [facility] 2022-02-20 2022-02-20 Patient Asia [facility] 1.2.840.114 [id number] Univers 00:00:00 00:00:00 Secure Msg Amena SALDANA 350.1.13.10 ity of [place] 4[place]2.[place] [id number] [address] 2022-02-20 2022-02-20 Telephone Asia [facility] 1.2.840.11 4 [id number] Univers 00:00:00 00:00:00 Amena LES 350.1.13.10 it y of [place] 4[place]2.[place].2.[place] [id number] [address] 2022-02-20 2022-02-20 Patient Iris [facility] 1.2.041.741 [id number] Univers 00:00:00 00:00:00 Secure Msg Deanne SALDANA 350.1.13.10 ity [place] [id number] [facility] [address] [place] 2022-02-18 2022-02-18 Revenue Stamper Harmony Nolan Lab Main [facility] 1.2.8 40.114 [id number] Univers 10:00:00 10:15:00 Visit Amena Betancourt 350.1.13. 10 ity of [place] 4.2.7.2.[place] [id number] Wa dical NAL [address] [place] [address] 2022-02-18 2022-02-18 Outpatient R AMENA BETANCOURT [facility] B [id number] Univers 10:00:00 10:00:00 AMENA BETANCOURT [facility] 2022-02-18 2022-02-18 Orders Doctor PHILIP 1.2.840.114 [id number] Univers 00:00:00 00:00:00 Only Unassigned, JOYCE 350.1.13.10 ity of [place] [facility] 4.2.7.2.686 Anil as [id number] [address] 2022-02-17 2022-02-17 Patient Iris [facility] 1.2.661.864 [id number] Univers 00:00:00 00:00:00 Secure Msg Deannenabor SALDANA 350.1.13.10 it[place] [id number] [address] 2022-02-17 2022-02-17 Telephone [facility] 1.2.840.11 4 [id number] Univers 00:00:00 00:00:00 Amena SALDANA 350.1.13.10 it y of [place] 4[place]2.[place].2.[place] [id number] [address] 2022-02-08 2022-02-08 Outpatient R AMENA BETANCOURT [facility] B [id number] Univers 00:00:00 00:00:00 AMENA BETANCOURT [facility] 2022-01-24 2022-01-24 Outpatient R AMENA BETANCOURT [facility] B [id number] Univers 15:30:00 16:07:03 AMENA BETANCOURT [facility] 2022-01-24 2022-01-24 Office Asia [facility] 1.2.840.114 [id number] Univers 15:30:00 16:07:03 Visit Amena SALDANA 350.1.13.10 it y [place] [id number] [address] 2022-01-20 2022-01-20 Outpatient R AMENA BETANCOURT [facility] B [id number] Univers 15:15:00 15:15:00 AMENA BETANCOURT [facility] 2022-01-06 2022-01-06 Outpatient R AMENA BETANCOURT [facility] B [id number] Univers 16:00:00 16:00:00 [facility] 2022-01-06 2022-01-06 Outpatient R JARETH OLMEDO [facility] [id number] Univers 14:15:00 14:27:31 ity [facility] 2022-01-06 2022-01-06 Office Jareth Olmedo [facility] 1.2.840.114 [id number] Univers 14:15:00 14:27:31 Visit MIRNA 350.1.13.10 i ty of [facility] 4.2.7.2.686 [place] [id number] Wa dical [address] 2022-01-03 2022-01-03 Telephone HonorioRosaleen [facility] 1.2.840.11 4 [id number] Univers 00:00:00 00:00:00 LES 350.1.13.10 it y of [place] 4[place] [id number] [address] 2021-12-30 2021-12-30 Revenue Stamper 2, Adc Lab [facility] 1.2.840.114 [id number] Univers 11:00:00 11:13:02 Visit Jareth Olmedo 350.1.13.10 ity of [place].2.[place] [id number] Me dical NAL [address] [facility] 2021-12-30 2021-12-30 Outpatient R JARETH OLMEDO [facility] [id number] Univers 09:30:00 10:59:31 ity of [facility] 2021-12-30 2021-12-30 Office Jareth Olmedo [facility] 1.2.840.114 [id number] Univers 09:30:00 10:59:31 Visit MIRNA 350.1.13.10 i ty of [place] 4.2.7.2.[place] [id number] Wa dical NAL [address] [facility] 2021-12-30 2021-12-30 Outpatient R JARETH OLMEDO [facility] [id number] Univers 09:30:00 10:59:31 ity of [facility] 2021-12-30 2021-12-30 Orders Doctor PHILIP 1.2.840.114 [id number] Univers 00:00:00 00:00:00 Only Unassigned, JOYCE 350.1.13.10 ity of [place] [facility]PITAL 4.2.7.2.686 Anil as [id number] [place] [address] [address] 2021-12-28 2021-12-28 Telephone Asia [facility] 1.2.840.11 4 [id number] Univers 00:00:00 00:00:00 Amena SALDANA 350.1.13.10 it [place] [id number] [facility] [address] [place] 2021-11-23 2021-11-23 Outpatient R AMENA BETANCOURT [facility] B [id number] Univers 09:30:00 10:56:47 AMENA BETANCOURT ity [facility] 2021-11-23 2021-11-23 Office Asia [facility] 1.2.840.114 [id number] Univers 09:30:00 10:56:47 Visit Amena SALDANA 350.1.13.10 it y of [place] [id number] [address] 2021-11-09 2021-11-09 Revenue Stamper Lab, [facility] Db [facility] 1.2.840.1 14 [id number] Univers 16:30:00 16:45:00 Visit Quinten Kline [facility] 350.1.13.10 ity of Amena Betancourt 4.2.7.2.686 [facility]?BLEA [id number] Wa lili [address] MEDICAL OFFICE [facility] 2021-11-09 2021-11-09 Office Mariaelenacecelia [facility] 1.2.840.114 [id number] Univers 15:00:00 15:40:11 Visit Amena SALDANA 350.1.13.10 it y of WOMEN'S 4.2.7.2.686 [facility] [id number] [address] 2021-11-09 2021-11-09 Outpatient R AMENA BETANCOURT [facility] B [id number] Univers 15:00:00 15:40:11 AMENA BETANCOURT [facility] 2021-11-09 2021-11-09 Outpatient R AMENA BETANCOURT [facility] B [id number] Univers 15:00:00 15:40:11 AMENA BETANCOURT [facility] 2021-11-09 2021-11-09 Outpatient R AMENA BETANCOURT [facility] B [id number] Univers 15:00:00 15:00:00 [facility] 2021-10-27 2021-10-27 Outpatient R ROSALEE OLMEDON [facility] [id number] Univers 15:00:00 15:45:46 ity [facility] 2021-10-27 2021-10-27 Office Jareth Olmedo [facility] 1.2.840.114 [id number] Univers 15:00:00 15:45:46 Visit LES 350.1.13.10 it y of WOMEN'S 4.2.7.2.686 [facility] HEALTH [id number] [address] 2021-10-27 2021-10-27 Orders Doctor PALACIOS 1.2.840.114 [id number] Univers 00:00:00 00:00:00 Only Unassigned, JOYCE 350.1.13.10 ity of [place] [facility] 4.2.7.2.686 [facility] [id number] [facility] [address] [place] 2021-10-18 2021-10-18 Emergency [facility] [id number] Univers 12:38:00 17:05:00 [facility] 2021-10-18 2021-10-18 [facility] 1.2.285.123 [id number] Univers 12:38:00 17:05:00 Kameron BRADLEY 350.1.13.10 i ty [facility] 4.2.7.2.686 [facility] [id number] [facility] [address] [place] 2021-10-18 2021-10-18 Emergency [facility] [id number] Univers 12:38:00 17:05:00 [facility] 2021-02-20 2021-02-20 Emergency EM Crismon, [facility] ESTRELLITA [id number] [facility] 07:08:00 10:32:00 Dante [facility] Results Test Description Test Time Test Comments Results Result Comments Source POCT URINALYSIS W SPECIFIC GRAVITY 2022-12-07 15:07:00 Test Item Value Reference Range Interpretation Comme nts POCT U SP GRAV (test code = 3255) . 1.005-1.025 POCT PH U (test code = 3254) . 5-8 POCT U LEUK EST (test code = 3263) . Negative - Negative POCT U NIT (test code = 3262) . Negative - Negative POCT U PROT (test code = 3259) trace Negative - Negative POCT U GLU (test code = 3256) negative Negative - Negative POCT U KETONE (test code = 3258) . Negative - Negative POCT U UROBILI (test code = 3260) . 0.2-1 POCT U BILI (test code = 3261) . Negative - Negative POCT U BLD (test code = 3257) . Negative - Negative POCT U COLOR (test code = 3266) . POCT U APPEAR (test code = 3267) . [facility], TXPOCT URINALYSIS W SPECIFIC [id number] 15:07:00 Test Item Value Reference Range Interpretation Comments POCT U SP GRAV (test code = . 1.005-1.025 3255) POCT PH U (test code = 3254) . 5-8 POCT U LEUK EST (test code = . Negative - Negative 3263) POCT U NIT (test code = 3262) . Negative - Negative POCT U PROT (test code = 3259) trace Negative - Negative POCT U GLU (test code = 3256) negative Negative - Negative POCT U KETONE (test code = 3258) . Negative - Negative POCT U UROBILI (test code = . 0.2-1 3260) POCT U BILI (test code = 3261) . Negative - Negative POCT U BLD (test code = 3257) . Negative - Negative POCT U COLOR (test code = 3266) . POCT U APPEAR (test code = 3267) . [facility] URINALYSIS W SPECIFIC [id number] 14:51:00 Test Item Value Reference Range Interpretation Comments POCT U SP GRAV (test code = 3255) . 1.005-1.025 POCT PH U (test code = 3254) . 5-8 POCT U LEUK EST (test code = 3263) . Negative - Negative POCT U NIT (test code = 3262) . Negative - Negative POCT U PROT (test code = 3259) trace Negative - Negative POCT U GLU (test code = 3256) neg Negative - Negative POCT U KETONE (test code = 3258) . Negative - Negative POCT U UROBILI (test code = 3260) . 0.2-1 POCT U BILI (test code = 3261) . Negative - Negative POCT U BLD (test code = 3257) . Negative - Negative POCT U COLOR (test code = 3266) . POCT U APPEAR (test code = 3267) . [facility] URINALYSIS W SPECIFIC [id number] 14:51:00 Test Item Value Reference Range Interpretation Comments POCT U SP GRAV (test code = 3255) . 1.005-1.025 POCT PH U (test code = 3254) . 5-8 POCT U LEUK EST (test code = 3263) . Negative - Negative POCT U NIT (test code = 3262) . Negative - Negative POCT U PROT (test code = 3259) trace Negative - Negative POCT U GLU (test code = 3256) neg Negative - Negative POCT U KETONE (test code = 3258) . Negative - Negative POCT U UROBILI (test code = 3260) . 0.2-1 POCT U BILI (test code = 3261) . Negative - Negative POCT U BLD (test code = 3257) . Negative - Negative POCT U COLOR (test code = 3266) . POCT U APPEAR (test code = 3267) . [facility] URINALYSIS W SPECIFIC [id number] 14:51:00 Test Item Value Reference Range Interpretation Comments POCT U SP GRAV (test code = 3255) . 1.005-1.025 POCT PH U (test code = 3254) . 5-8 POCT U LEUK EST (test code = 3263) . Negative - Negative POCT U NIT (test code = 3262) . Negative - Negative POCT U PROT (test code = 3259) trace Negative - Negative POCT U GLU (test code = 3256) neg Negative - Negative POCT U KETONE (test code = 3258) . Negative - Negative POCT U UROBILI (test code = 3260) . 0.2-1 POCT U BILI (test code = 3261) . Negative - Negative POCT U BLD (test code = 3257) . Negative - Negative POCT U COLOR (test code = 3266) . POCT U APPEAR (test code = 3267) . [facility] URINALYSIS W SPECIFIC [id number] 20:52:00 Test Item Value Reference Range Interpretation Comments POCT U SP GRAV (test code = 3255) . 1.005-1.025 POCT PH U (test code = 3254) . 5-8 POCT U LEUK EST (test code = 3263) . Negative - Negative POCT U NIT (test code = 3262) . Negative - Negative POCT U PROT (test code = 3259) trace Negative - Negative POCT U GLU (test code = 3256) neg Negative - Negative POCT U KETONE (test code = 3258) . Negative - Negative POCT U UROBILI (test code = 3260) . 0.2-1 POCT U BILI (test code = 3261) . Negative - Negative POCT U BLD (test code = 3257) . Negative - Negative POCT U COLOR (test code = 3266) . POCT U APPEAR (test code = 3267) . [facility] URINALYSIS W SPECIFIC [id number] 20:36:00 Test Item Value Reference Range Interpretation Comments POCT U SP GRAV (test code = 3255) . 1.005-1.025 POCT PH U (test code = 3254) 6 mg/dl 5-8 POCT U LEUK EST (test code = Trace Negative - Negative 3263) POCT U NIT (test code = 3262) Neg Negative - Negative POCT U PROT (test code = 3259) Trace Negative - Negative POCT U GLU (test code = 3256) Neg Negative - Negative POCT U KETONE (test code = 3258) None Negative - Negative POCT U UROBILI (test code = 3260) . 0.2-1 POCT U BILI (test code = 3261) . Negative - Negative POCT U BLD (test code = 3257) Trace Negative - Negative POCT U COLOR (test code = 3266) POCT U APPEAR (test code = 3267) [facility] URINALYSIS W SPECIFIC [id number] 20:22:00 Test Item Value Reference Range Interpretation Comments POCT U SP GRAV (test code = 3255) . 1.005-1.025 POCT PH U (test code = 3254) . 5-8 POCT U LEUK EST (test code = 3263) . Negative - Negative POCT U NIT (test code = 3262) . Negative - Negative POCT U PROT (test code = 3259) trace Negative - Negative POCT U GLU (test code = 3256) neg Negative - Negative POCT U KETONE (test code = 3258) . Negative - Negative POCT U UROBILI (test code = 3260) . 0.2-1 POCT U BILI (test code = 3261) . Negative - Negative POCT U BLD (test code = 3257) . Negative - Negative POCT U COLOR (test code = 3266) . POCT U APPEAR (test code = 3267) . [facility] URINALYSIS W/O SPECIFIC [id number] 18:12:00 Test Item Value Reference Range Interpretation Comments POCT PH U (test code = 3254) 5 mg/dl 5-8 POCT U LEUK EST (test code = 2+ Negative - Negative 3263) POCT U NIT (test code = 3262) NEG Negative - Negative POCT U PROT (test code = 3259) TRACE Negative - Negative POCT U GLU (test code = 3256) NEG Negative - Negative POCT U KETONE (test code = 3258) NEG Negative - Negative POCT U BLD (test code = 3257) NEG Negative - Negative [id number] 18:11:00 Test Item Value Reference Range Interpretation Comments POCT PREG (test code = 1605) Positive On board controls acceptable with C Yes Line (test code = 3574) POCT PREG LOT # (test code = 3575) POCT PREG TEST DATE (test code = 3576) [facility] [place], [place] [id number] 21:14:40 Test Item Value Reference Interpretation Comments Range TROPONIN I (test 0.002 ng/mL See_Comment [Automated code = 6827577735) message] The system which generated this result transmitted reference range : <=0.034. The reference range was not used to interpret this result as normal/abnormal . SAMY (test code = Reference (Normal) SAMY) Range (defined by the 99th percentile reference limit): <= 0.034 ng/mL Note: Cardiac troponin begins to rise 3-4 hours after the onset of ischemia. Repeat in 4-6 hours if the sample was drawn within 3-4 hours of the onset of the symptom and found normal. Diagnosis of myocardial injury is made with acute changes in cTn concentrations with at least one serial sample above the 99th percentile upper reference limit (URL), taken together with the patient's clinical presentation. Biotin has been reported to cause a negative bias, interpret results relative to patient's use of biotin. Lab Interpretation Normal (test code = 16962-9) [facility] [place], [place]N-TERMINAL [id number] 21:08:59 Test Item Value Reference Range Interpretation Comments NT-proBNP (test code 53 pg/mL See_Comment [Autom ated = 5664749575) message] The system which generated this result transmitted reference range : <=125. The reference range was not used to interpret this result as normal/abnormal . SAMY (test code = SAMY) Biotin has been reported to cause a negative bias, interpret results relative to patient's use of biotin. Lab Interpretation Normal (test code = 07097-5) [facility] [place], [id number] 21:00:36 Test Item Value Reference Range Interpretation Comments MAGNESIUM (test code = 5916765158) 1.9 mg/dL 1.7-2.4 Lab Interpretation (test code = Normal 45299-9) [facility] [place], TXCOM. METABOLIC PANEL (90930)2022-03-23 21:00:16 Test Item Value Reference Range Interpretation Comments NA (test code = 136 mmol/L 135-145 3916859621) K (test code = 4.4 mmol/L 3.5-5.0 2913180037) CL (test code = 104 mmol/L 98-108 0651617366) CO2 TOTAL (test code 24 mmol/L 23-31 = 3006179760) AGAP (test code = 2-16 8716874919) BUN (test code = 13 mg/dL 7-23 0079781566) GLUCOSE (test code = 92 mg/dL 70-110 8697516084) CREATININE (test code 0.53 mg/dL 0.50-1.04 = 4994807065) TOTAL BILI (test code 0.4 mg/dL 0.1-1.1 = 9371404467) CALCIUM (test code = 9.1 mg/dL 8.6-10.6 0598461915) T PROTEIN (test code 7.2 g/dL 6.3-8.2 = 5424831865) ALBUMIN (test code = 4.6 g/dL 3.5-5.0 9991056898) ALK PHOS (test code = 50 U/L 34-122 3775976809) ALTv (test code = 23 U/L 5-35 1742-6) AST(SGOT) (test code 32 U/L 13-40 = 5512313210) eGFR (test code = mL/min/1.73m2 6228065746) SAMY (test code = SAMY) Association of Glomerular Filtration Rate (GFR) and Staging of Kidney Disease* + + +- +| GFR (mL/min/1.73 m2) ?| With Kidney Damage ?| ?Without Kidney Damage+ ------+ ----+ ------+| ?>90 ?| ?Stage one ?| ? Normal ?+ -+ + -+| ?60-89 ?| ?Stage two ?| ? Decreased GFR ? + + +- +| ?30-59 ?| ?Stage three ?| ? Stage three ? + + +- +| ?15-29 ?| ?Stage four ? | ? Stage four ?+ -+ + -+| ?<15 (or dialysis) ? ?| ?Stage five ? | ? Stage five ?+ -+ + -+ *Each stage assumes the associated GFR level has been in effect for at least three months. ?Stages 1 to 5, with or without kidney disease, indicate chronic kidney disease. Notes: Determination of stages one and two (with eGFR >59mL/min/1.73 m2) requires estimation of kidney damage for at least three months as defined by structural or functional abnormalities of the kidney, manifested by either:Pathological abnormalities or Markers of kidney damage (including abnormalities in the composition of the blood or urine or abnormalities in imaging tests). [facility] WITH [id number] 20:35:10 Test Item Value Reference Range Interpretation Comments WBC (test code = See_Comment [Automated 2683-2) message] The sy stem which generated this result transmitted reference range : 4.30 - 11.10 10*3/?L. The reference range was not used to interpret this result as normal/abnormal . RBC (test code = See_Comment L [Automated 809-8) message] The sy stem which generated this result transmitted reference range : 3.93 - 5.25 10*6/?L. The reference range was not used to interpret this result as normal/abnormal . HGB (test code = 11.1 g/dL 11.6-15.0 L 718-7) HCT (test code = 32.2 % 35.7-45.2 L 4544-3) MCV (test code = 91.2 fL 80.6-95.5 787-2) MCH (test code = 31.4 pg 25.9-32.8 785-6) MCHC (test code = 34.5 g/dL 31.6-35.1 786-4) RDW-SD (test code = 40.3 fL 39.0-49.9 70752-0) RDW-CV (test code = 12.1 % 12.0-15.5 788-0) PLT (test code = See_Comment [Automated 777-3) message] The sy stem which generated this result transmitted reference range : 166 - 358 10*3/ ?L. The reference r kristen was not used to interpret this result as normal/abnormal . MPV (test code = 9.3 fL 9.5-12.9 L 92853-0) NRBC/100 WBC (test See_Comment [Automat ed code = 9241037130) message] The system which generated this result transmitted reference range : 0.0 - 10.0 /100 WBCs. The refer ence range was not u sed to interpret th is result as normal/abnormal . NRBC x10^3 (test code See_Comment [Auto mated = 1687564299) message] The s ystem which generated this result transmitted reference range : 10*3/?L. The reference range was not used to interpret this result as normal/abnormal . GRAN MAT (NEUT) % 73.4 % (test code = 770-8) IMM GRAN % (test code 0.50 % = 8011247695) LYMPH % (test code = 15.5 % 736-9) MONO % (test code = 8.2 % 5905-5) EOS % (test code = 2.1 % 713-8) BASO % (test code = 0.3 % 706-2) GRAN MAT x10^3(ANC) 7.55 10*3/uL 1.88-7.09 H (test code = 3795836312) IMM GRAN x10^3 (test 0.05 10*3/uL 0.00-0.06 code = 2637616914) LYMPH x10^3 (test code 1.60 10*3/uL 1.32-3.29 = 731-0) MONO x10^3 (test code 0.84 10*3/uL 0.33-0.92 = 742-7) EOS x10^3 (test code = 0.22 10*3/uL 0.03-0.39 711-2) BASO x10^3 (test code 0.03 10*3/uL 0.01-0.07 = 704-7) Lab Interpretation Abnormal (test code = 08906-6) [facility] URINALYSIS W/O SPECIFIC [id number] 20:09:00 Test Item Value Reference Range Interpretation Comments POCT PH U (test code = 3254) n/a 5-8 POCT U LEUK EST (test code = n/a Negative - Negative 3263) POCT U NIT (test code = 3262) n/a Negative - Negative POCT U PROT (test code = 3259) negative Negative - Negative POCT U GLU (test code = 3256) negative Negative - Negative POCT U KETONE (test code = 3258) n/a Negative - Negative POCT U BLD (test code = 3257) n/a Negative - Negative [facility] URINALYSIS W/O SPECIFIC [id number] 16:00:00 Test Item Value Reference Range Interpretation Comments POCT PH U (test code = 3254) N/A 5-8 POCT U LEUK EST (test code = N/A Negative - Negative 3263) POCT U NIT (test code = 3262) N/A Negative - Negative POCT U PROT (test code = 3259) NEGATIVE Negative - Negative POCT U GLU (test code = 3256) NEGATIVE Negative - Negative POCT U KETONE (test code = 3258) N/A Negative - Negative POCT U BLD (test code = 3257) N/A Negative - Negative [facility] URINALYSIS W/O SPECIFIC [id number] 16:00:00 Test Item Value Reference Range Interpretation Comments POCT PH U (test code = 3254) N/A 5-8 POCT U LEUK EST (test code = N/A Negative - Negative 3263) POCT U NIT (test code = 3262) N/A Negative - Negative POCT U PROT (test code = 3259) NEGATIVE Negative - Negative POCT U GLU (test code = 3256) NEGATIVE Negative - Negative POCT U KETONE (test code = 3258) N/A Negative - Negative POCT U BLD (test code = 3257) N/A Negative - Negative [facility] URINALYSIS W/O SPECIFIC [id number] 16:00:00 Test Item Value Reference Range Interpretation Comments POCT PH U (test code = 3254) N/A 5-8 POCT U LEUK EST (test code = N/A Negative - Negative 3263) POCT U NIT (test code = 3262) N/A Negative - Negative POCT U PROT (test code = 3259) NEGATIVE Negative - Negative POCT U GLU (test code = 3256) NEGATIVE Negative - Negative POCT U KETONE (test code = 3258) N/A Negative - Negative POCT U BLD (test code = 3257) N/A Negative - Negative [facility] URINALYSIS W/O SPECIFIC [id number] 16:00:00 Test Item Value Reference Range Interpretation Comments POCT PH U (test code = 3254) N/A 5-8 POCT U LEUK EST (test code = N/A Negative - Negative 3263) POCT U NIT (test code = 3262) N/A Negative - Negative POCT U PROT (test code = 3259) NEGATIVE Negative - Negative POCT U GLU (test code = 3256) NEGATIVE Negative - Negative POCT U KETONE (test code = 3258) N/A Negative - Negative POCT U BLD (test code = 3257) N/A Negative - Negative [facility] URINALYSIS W/O SPECIFIC [id number] 16:00:00 Test Item Value Reference Range Interpretation Comments POCT PH U (test code = 3254) N/A 5-8 POCT U LEUK EST (test code = N/A Negative - Negative 3263) POCT U NIT (test code = 3262) N/A Negative - Negative POCT U PROT (test code = 3259) NEGATIVE Negative - Negative POCT U GLU (test code = 3256) NEGATIVE Negative - Negative POCT U KETONE (test code = 3258) N/A Negative - Negative POCT U BLD (test code = 3257) N/A Negative - Negative [facility] URINALYSIS W/O SPECIFIC [id number] 16:00:00 Test Item Value Reference Range Interpretation Comments POCT PH U (test code = 3254) N/A 5-8 POCT U LEUK EST (test code = N/A Negative - Negative 3263) POCT U NIT (test code = 3262) N/A Negative - Negative POCT U PROT (test code = 3259) NEGATIVE Negative - Negative POCT U GLU (test code = 3256) NEGATIVE Negative - Negative POCT U KETONE (test code = 3258) N/A Negative - Negative POCT U BLD (test code = 3257) N/A Negative - Negative [facility] [id number] 18:43:00 Test Item Value Reference Range Interpretation Comments POCT PREG (test code = 1605) Negative On board controls acceptable with C Yes Line (test code = 3574) POCT PREG LOT # (test code = 3575) POCT PREG TEST DATE (test code = 3576) [facility] [id number] 18:43:00 Test Item Value Reference Range Interpretation Comments POCT PREG (test code = 1605) Negative On board controls acceptable with C Yes Line (test code = 3574) POCT PREG LOT # (test code = 3575) POCT PREG TEST DATE (test code = 3576) [facility] [id number] 18:43:00 Test Item Value Reference Range Interpretation Comments POCT PREG (test code = 1605) Negative On board controls acceptable with C Yes Line (test code = 3574) POCT PREG LOT # (test code = 3575) POCT PREG TEST DATE (test code = 3576) [facility] [id number] 15:29:00 Test Item Value Reference Range Interpretation Comments POCT PREG (test code = 1605) Negative On board controls acceptable with C Yes Line (test code = 3574) POCT PREG LOT # (test code = 3575) POCT PREG TEST DATE (test code = 3576) [facility] [id number] 15:29:00 Test Item Value Reference Range Interpretation Comments POCT PREG (test code = 1605) Negative On board controls acceptable with C Yes Line (test code = 3574) POCT PREG LOT # (test code = 3575) POCT PREG TEST DATE (test code = 3576) [facility] [place]- [place] TRANSVAGINAL NON [id number] 09:32:00 [facility] 1990 Sex: F Patient Name: BROOKE LIZ Unit No: [id number] EXAMS: CPT CODE: [id number] [place] [address] C3 TIME OF STUDY: 02/20/2021 REASON FOR [...] 2.5 x 1.7 x 1.8cm. The left m easures 4.1 x 2.2 x 2.8 cm. There [...] by: Antonino Miranda MD CC: Indira MARIE Technologist:Sophy Stevenson Trnscrbd D/ (0932) JacobSI1 Probe: [id number] Orig Print D/T: S: 02/20/2021(0935) Probe: ELISABETH Cavanaugh NAME: BROOKE LIZ [address] [place] [address] PHYS: Indira [place], [place] [address] : 1990 AGE: 30 SEX: F LOC: B.ERS PHONE #: [phone] EXAM DATE: 02/20/2021 STATUS: REG ER FAX #: [phone] RAD NO: Page 1 Signed ReportLACTIC [id number] 09:17:00 Test Item Value Reference Range Interpretation Comments LACTIC ACID (test 2.1 mmol/L 0.4-2.0 H ON 1 AT 0917, code = LACT) B.LAB.EJK GOODEN D TO JASSON HUNTER. T he report was conf irmed by read back parrish cols Y,N: YES. Criti senait values after th e first occurrence are excluded. - CT ABD PELVIS W/[id number] 08:35:00 [facility] : 1990 Sex: F Patient Name: BROOKE LIZ Unit No: [id number] EXAMS: CPT CODE: [id number] CT ABD PELVIS W/CONT 20791 EXAM: - CT ABD PELVIS W/CONT LOCATION: [...] No biliary dilation. Pancreas: Normal. Spleen: Normal. Adrenals:Normal. Genitourinary: The kidneys are normal. No evidence of hydronephrosis. Evaluation of the bladder is limited, but no obvious bladder abnormality is present. 2.2 cm cystlike lesion in the left ovary. Gastrointestinal: No bowel obstruction or perienteric inflammation. The appendix is normal. Vascular: No evidence of aneurysm or dissection. Lymphatics: No enlarged lymph nodes by CT size criteria.Bones/Soft Tissues: No acute osseous findings. No ventral hernias. Peritoneum/Other: No extraluminalair. No extraluminal fluid. IMPRESSION: 2.2 cm cystlike lesion in the left ovary. [facility] [place] NAME: BROOKE LIZ [address] [place] [address] PHYS: ABBE.Grupo - [place]ira [place], [place] [address] : 1990 AGE: 30 SEX: F LOC: B.ERS PHONE #: [phone] EXAM DATE: 02/20/2021 ATUS: [facility] FAX #: [phone] RAD #: D/C DT PAGE 1 Signed Report (CONTINUED) Patient Name: BROOKE LIZ Unit No: [id number] EXAMS: CPT CODE: [id number] CT ABD PELVIS W/CONT 80413 <Continued>No evidence of obstructive uropathy. at 0835 Reported and signed by: Adelso Adler MD CC: Indira MARIE Dictated Date/Time: 02/20/2021 (08) Technologist: Orlando Burgos CTDI: 9.22 DLP: 492.32 Trnscrpt: 02/20/2021 (35) JacobHV2 ELISABETH Cavanaugh NAME: MARTHA[address] PHYS: VIKTORIYA Carver [place] [address] : 1990 AGE: 30 SEX: F LOC: B.ERS PHONE #: [phone] EXAM DATE: 02/20/2021 STATUS: REG ER FAX #: [phone] RAD #: D/C DT PAGE 2 Signed Report Patient Name: BROOKE LIZ Unit No: [id number] EXAMS: CPT CODE: [id number] CT ABD PELVIS W/CONT 64318<Continued> Orig Print D/T: S: 02/20/2021 (0839) ELISABETH Cavanaugh NAME: [address] PHYS: VIKTORIYA Carver [place] [address] : 1990 AGE: 30 SEX: F LOC: B.ERS PHONE #: [phone] EXAM DATE: 02/20/2021 STATUS: REG ER FAX #: [phone] RAD #: D/C DT PAGE 3 Signed Report BASIC METABOLIC [id number] 08:03:00 Test Item Value Reference Range Interpretation [...] message] (test code = Index/DL The system [employer]) generated this result transmit ayde reference range [...] this result as normal/abnormal . HEPATIC FUNCTION [id number] 08:03:00 Test Item Value Reference Range Interpretation [...] 86 Unit/L 45-117 N code = ALKP) [id number] 08:03:00 Test Item Value Reference Range Interpretation Comments LIPASE (test code = LIP) 50 Unit/L 114-286 L CBC W/O [id number] 07:54:00 Test Item Value Reference Range Interpretation [...] N MPV) UA RFLX MICR CULT IF [id number] 07:51:00 Test Item Value Reference Range Interpretation [...] LT 2018-06-06 18:55:00 FAX: Ortega Barrera MD [phone] [place]: E St: REG FAX: Efren Smith NP [phone] ----- Patient Name: BROOKE SYKES Unit No: [id number] EXAMS: CPT CODE: [id number] XR ELBOW 3 + [place] [address] EXAMINATION: - XRFOREARM 2 VIEWS LT, - [...] By: [email or web address] Orig Print D/T: S: 06/06/2018 (786) [facility] EDSherif Cavanaugh NAME: MONYBROOKE SAMAYOA [address] [place] [address] PHYS: TERE. Efren Gonzalez NP, [place] [address] : 1990 AGE: 28 SEX: F LOC: STEPHANIE PHONE #: [phone] EXAM DATE: 06/06/2018 STATUS: REG ER FAX #: [phone] RAD NO: DC Dt: PAGE 1 Signed Report- XR FOREARM 2 VIEWS [id number] 18:55:00 FAX: Ortega Barrera MD [phone] [place]: E St: REG FAX: Efren Smith NP [phone] ----- Patient Name: BROOKE SYKES Unit No: [id number] EXAMS: CPT CODE: [id number] XR FORE[place] 2 [place] [address] EXAMINATION: - XR FOREARM 2 VIEWS LT, [...] 1855 Reported and signed by: Pau Cardenas [facility]: Efren Gonzalez NP Dictated Date/Time: 06/06/2018 (1854)Technologist: Elise Stark Transcribed Date/Time: 06/06/2018 (1854) By: [email or web address] Orig Print D/T: S: 06/06/2018 (1858) ELISABETH Cavanaugh NAME: BROOKE SYKES [address] [place] [address] PHYS: TERE.01 - Efren Gonzalez NP, [place] [address]TVE: 1990 AGE: 28 SEX: F LOC: STEPHANIE PHONE #: [phone] EXAM DATE: 06/06/2018 STATUS: REG ER FAX #: [phone] RAD NO: DC Dt: PAGE 1 Signed Report- XR HAND 3 + V [id number] 18:54:00 FAX: Ortega Barrera MD [phone] [place]: E St: REG FAX: Efren Smith NP [phone] ----- Patient Name: BROOKE SYKES Unit No: [id number] EXAMS: CPT CODE: [id number] XR HAND 3 + V [place] [address] EXAMINATION: - XR WRIST 3 + V LT, - XR HAND 3 + V LT. LOCATION: B2. HISTORY: fall. COMPARISON: None. TECHNIQUE: AP, lateral, and oblique views of the left wrist and left hand were obtained. FINDINGS: No acute fracture ordislocation is identified. Incidental note is made of negative ulnar variance. Soft tissue structures appear within normal limits. IMPRESSION: No acute osseous abnormality is identified. at 1854 Reported and signed by: Pau Cardenas MD CC: Efren Gonzalez NP Dictated Date/Time: 06/06/2018 (1853)Technologist: Elise Stark Transcribed Date/Time: 06/06/2018 (1853) By: [email or web address] Orig Print D/T: S: 06/06/2018 (1856) ELISABETH Cavanaugh NAME: BROOKE SYKES [address] [place] [address] PHYS: TERE.01 - Efren Gonzalez [place], [place] [address] :1990 AGE: 28 SEX: F LOC: STEPHANIE PHONE #: [phone] EXAM DATE: 06/06/2018 STATUS: REG ER FAX #: [phone] RAD NO: DC Dt: PAGE 1 Signed Report- XR WRIST 3 + V [id number] 18:54:00 FAX: Ortega Barrera MD [phone] [place]: E St: REG FAX: Efren Smith NP [phone] ----- Patient Name: BROOKE SYKES Unit No: [id number] EXAMS: CPT CODE: [id number] XR WRIST 3 + V LT [address] EXAMINATION: - XR WRIST 3 + V LT, - XR HAND 3 + V LT. LOCATION: B2. HISTORY: fall. COMPARISON: None. TECHNIQUE: AP, lateral, and oblique views of the left wrist and left hand were obtained. FINDINGS: No acute fracture ordislocation is identified. Incidental note is made of negative ulnar variance. Soft tissue structures appear within normal limits. IMPRESSION: No acute osseous abnormality is identified. at 185 Reported and signed by: Pau Cardenas MD CC: Efren Gonzalez NP Dictated Date/Time: 06/06/2018 (1853)Technologist: Elise Stark Transcribed Date/Time: 06/06/2018 (1853) By: [email or web address] Orig Print D/T: S: 06/06/2018 (1856) [facility] [place] NAME: BROOKE SYKES [address] [place] [address] PHYS: TERE. - Efren Gonzalez NP [place], [place] [address] : 1990 AGE: 28 SEX: F LOC: STEPHANIE PHONE #: [phone] EXAM DATE: 06/06/2018 STATUS: REG FAX #: [phone] RAD NO: DC Dt: PAGE 1 Signed Report- XR HUMERUS 2 + V [id number] 18:51:00 FAX: Ortega Barrera MD [phone] [place]: St: REG FAX: Efren Smith NP [phone] ----- Patient Name: BROOKE SYKES Unit No: [id number] EXAMS: CPT CODE: [id number] XR HUMERUS 2 + V LT [address] EXAMINATION: - XR HUMERUS 2 + V LT. LOCATION: B2. HISTORY: fall. COMPARISON: None. TECHNIQUE: AP and lateral views of the left humerus were obtained. FINDINGS: No acute fracture or dislocation is identified. Soft tissue structures appear within normal limits. IMPRESSION: No acute osseous abnormality is identified. at 1851 Reported and signed by: Pau Cardenas MD CC: Efren Gonzalez NP Dictated Date/Time: 06/06/2018 (1850)Technologist: Elise Stark Transcribed Date/Time: 06/06/2018 (1850) By: [email or web address] Orig Print D/T: S: 06/06/2018 (1854) [facility] [place] NAME: BROOKE SYKES [address] [place] [address] PHYS: TERE. - [place] [address] : 1990 AGE: 28 SEX: F LOC: STEPHANIE PHONE #: [phone] EXAM DATE: 06/06/2018 STATUS: REG FAX #: [phone] RAD NO: DC Dt: PAGE 1 Signed Report- XR SHOULDER 2 + V [id number] 18:50:00 FAX: Ortega Barrera MD [phone] [place]: St: REG FAX: Efren Smith NP [phone] ----- Patient Name: BROOKE SYKES Unit No: [id number] EXAMS: CPT CODE: [id number] XR SHOULDER 2 + V LT [address] EXAMINATION: - XR SHOULDER 2 + V LT. LOCATION: B2. HISTORY: fall. COMPARISON: None. TECHNIQUE: Internal rotation, ex ternal rotation, and scapular Y views of the left shoulder were obtained. FINDINGS: No acute fracture or dislocation is identified. Soft tissue structures appear within normal limits. IMPRESSION: No acute osseous abnormality is identified. at 1850 Reported and signed by: Pau Cardenas MD CC: Efren Gonzalez NP Dictated Date/Time: 06/06/2018 (1849)Technologist: Elise Stark Transcribed Date/Time: 06/06/2018 (1849) By: [email or web address] Orig Print D/T: S: 06/06/2018 (1852) ELISABETH Cavanaugh NAME: BROOKE SYKES [address] PHYS: NIRISABEL. - Efren Gonzalez NP [place], [place] [address] : 1990 AGE: 28 SEX: F : B.ERS PHONE #: [phone] EXAM DATE: 06/06/2018 STATUS: REG ER FAX #: [phone] RAD NO: DCDt: PAGE 1 Signed Report Notes Date/Time Note Provider Source 2022-11-17 Formatting of this note might be differe nt from the original. Amber Rey [facility] 12:52:37-00:00 Notified patient of low risk NIPT results. No further questions or testing desired at this time. Results released to patient via [employer] portal. Electronically signed by Amber Rey at 12:55 PM CDT 2022-11-10 [facility] 13:35:01-00:00 Pt in clinic for labs, discu ssed problem list with patient. Pt was seen by genetic counselor and reports all questions answered. Verbalized understanding. Lorna Tucker RN 11/10/22 1:35 PM 2022-11-10 [facility] 11:43:08-00:00 Suboxone maintenance treatme nt complicating , antepartum That was put on her problem list by amena betancourt her pcp. Is she not on suboxone treatment anymore? If not I can put a comment on her problem. What labs does she have question about? Shanthi Bauer XIMENA 11/10/2022 11:44 AM 2022-11-10 [facility] 10:04:57-00:00 Called pt x 2. No answer. No vm box set up. Lorna Tucker RN 11/10/22 10:05 AM 2022-11-10 Formatting of this note might be differe nt from the original. Clarisa Najera [facility] 08:50:02-00:00 Pt requesting call back, sta florencia she was looking through her MyChart results and would like clarification. Please call [phone]. Electronically signed by Clarisa Najera at 8:51 AM CDT 2022-11-07 [facility] 15:53:06-00:00 Called pt, pt asking if quad screen wnl, advised no quad screen drawn. Advised pt she is out of the gestational window for quad screen. Pt has genetics appt on 11/10/2022, advised pt to keep appt to disc uss genetic lab options outs tico of the quad screen. Pt verbalized understanding. Lorna Tucker RN 11/07/22 3:54 PM 2022-11-07 Formatting of this note might be differe nt from the original. Silva Coleman [facility] 15:35:55-00:00 Brooke Pazmberly is a 32 year old female Pt is calling wanting to kno w if genetic testing is normal or if there is something wrong. Please contact pt. Electronically signed by Silva Coleman at 11/07 3:36 PM CDT 2021-02-20 [facility] 07:25:00-00:00 [facility] ([facility]) EMERGENCY PROVIDER REPORT REPORT#:[id number] REPORT STATUS: Signed DATE:02/20/21 TIME: 724 PATIENT: BROOKE LIZ UNIT #: [id number] ROOM/BED: AGE: 30 SEX: F PCP PHYS: No Primary or Family Ph ysician SERVICE AUTHOR: Indira Tyler * ALL edits or amendments must be made on the [employer] document * Indira Tyler 02/20/21724: HPI-Abd Pain F Under 40 General Confirmed Patient Yes Patient Type New patient Initial Greet Date/Time 02/20/21711 Assumed Care at Time 725 Date 02/20/21 PCP None Presentation Chief Complaint Diarrhea mild, Flank pain R, Fla nk pain L, Nausea, Vomiting moderate Hx Obtained From Patient Sudden in Onset? No Onset Occurred Yesterday Symptom Duration Constant Progression since Onset Constant, Gradually wors ening Location Flank right, Flank left Quality Stabbing Radiation Abdomen lower. Migration/Movement None Severity: Current Pain level 6 out of 10 Associated with Reports: Chills, Nausea, Urinary frequency, Vomi ting. Denies: Chest pain, Constipation, Diarrhea, Dysuria, Fever, Hemateme sis, Hematochezia, Hematuria, Melena, Shortness of breath, Urinary retention, Urinary tract symptoms, Vaginal bleeding, Vaginal discharge. Associated Other Pt denies other symptoms Exacerbated by Nothing Relieved by Nothing Context Related History Reports: Urolithiasis. Denie s: Cholecystitis, Cholelithiasis, Current , GERD, Ureterolithiasis, Urinary tract infectio n. Immunization Status General Unknown Recent Healthcare No recent doctor visit, No rec ent hospitalization Similar Sx Previous Yes /Sexual Hx Sexual History/ Control Reports: IUD. Free Text HPI Notes Free Text HPI Notes 30-year-old female with past medical history of depression, renal calculi, presents to the ER, complaining of bilateral fla nk pain, and lower abdominal pain that started yesterday, associated with bry sea and vomiting, she has had multiple episodes of vomiting and she has had ab out 2-3 episodes of diarrhea, the pain is constant, associated with ch ills, 09/23 at this time, the pain gets worse when she is having vomiting episod es. She denies any blood in her stool, fevers, UTI symptoms, pelvic pain, vaginal disch arge, vaginal bleeding. Risk-Abd Pain F Under 40 )( Ectopic Risk factors reviewed Review of Systems ROS Statements All systems rev neg except as marked. Basic Review of Systems Basic ROS EYES: No redness, ENT: No sore throat, HEM: No bleeding/bruising, SKIN : No rash, NEURO: No change MS, NEURO: No focal deficit, PSYCH: NL thought content Focused Review of Systems Constitutional Reports: Chills. Denies: Fever. Respiratory Denies: Cough, non-productive, Cough, productive , Dyspnea on exertion, Hemoptysis, Parox nocturnal dyspnea, Pleuritic p ain, Shortness of breath, Wheezing. Cardiovascular Denies: Chest pain, Dyspnea on exertion, Edema, Orthopnea, Palpitations, Parox nocturnal dyspnea, Syncope. GI Reports: Abdominal pain, Diarrhea, Nausea, Vomit ing. Denies: Constipation, Dysphagia, Hematemesis, Hematochezia, Mucousy st ool, Melena. Female Denies: Dysuria, Flank pain, Hematuria, Incontin ence, Nocturia, Pelvic pain, , Urinary frequency, Urinary urgency, Ur ination decreased, Urination increased, Vaginal bleeding - abnl, Vaginal disc harge. Musculoskeletal Denies: Back pain. Past Medical History - Adult Stated Complaint ABDOMINAL PAIN Allergies Coded Allergies: Penicillins (Intermediate, RASH 02/20/21) Calculated Suicide Risk (nurs) No risk Review of Nursing Notes Unavailable at this time Past Medical History: Reports: Depression/mood disorder, Kidney diseas e/stones. Additional Surgical History none Drug Use Marijuana Smoking status: Smoking status for patients 13 years old or old er: Current every day smoker Physical Exam Vital Signs Vital Signs First Documented: Result Date Time Pulse Ox 100 02/20 709 B/P 103/63 02/20 709 B/P Mean 76 02/20 709 O2 Delivery Room air 02/20 709 Temp 97.3 02/20 709 Pulse 114 02/20 709 Resp 20 02/20 709 Last Documented: Result Date Time Pulse Ox 100 02/20 1030 B/P 114/59 02/20 1030 B/P Mean 77 02/20 1030 O2 Delivery Room air 02/20 1030 Temp 98.6 02/20 1030 Pulse 80 02/20 1030 Resp 16 02/20 1030 Review of Vital Signs Reviewed Focused PE General/Const General/Const Awake, Alert Distress/Hydration Distress mild. MS Head Head Normocephalic Eyes Eyes Atraumatic, PERRL, EOMI Ears/Nose/Throat Ears/Nose/Throat Atraumatic, Airway patent Mouth Mucous membranes dry. Resp/Chest Respiratory/Chest Atraumatic, Breath sounds NL, Breath sounds = bilat, No respiratory distress, No rales, No rhonchi, No w heezing, No retractions Cardiovascular Cardiovascular Regular rhythm, Heart sounds NL, No murmurs, Cap refill not delayed Heart Rate/Rhythm Tachycardia. Abdomen/GI Abdomen/GI Soft Tenderness/Guarding/Rebound Tender diffuse, Tender flank R, Tender flank L. MS Back Back Inspection NL, Painless range of motion, N o midline vertebral tend Flank/Spine/Paraspinal Flank tender bilateral. Skin Skin Color NL, No rash, Warm, Dry, Intact, Turg or NL, No swelling Neurologic Neurologic Oriented X3, Speech NL, No motor def icits, Gait NL Interpretation Diagnostics Lab Results Interpretation Considerations Independ review imaging Results Laboratory Tests 02/20/21 0736: [Embedded Image Not Available] Laboratory Tests: 02/20 02/20 0832 0736 Chemistry Sodium (133 - 144 mmol/L) 135.0 Potassium (3.5 - 5.1 mmol/L) 3.8 Chloride (95 - 105 mmol/L) 100 Carbon Dioxide (21 - 32 mmol/L) 26 Anion Gap (4.0 - 15.0 GAP calc) 9.0 BUN (7 - 18 MG/DL) 15 Creatinine (0.55 - 1.30 MG/DL) 0.64 Glucose (70 - 110 MG/DL) 113 H Lactic Acid (0.4 - 2.0 mmol/L) 2.1 H Calcium (8.5 - 10.1 MG/DL) 9.0 Total Bilirubin (0.00 - 1.00 MG/DL) 0.75 Direct Bilirubin (0.00 - 0.30 MG/DL) 0.19 Indirect Bilirubin (0.2 - 1.3 MG/DL) 0.56 AST (15 - 37 Unit/L) 24 ALT (12 - 78 Unit/L) 46 Total Alk Phosphatase (45 - 117 Unit/L) 86 Total Protein (6.4 - 8.2 G/DL) 8.4 H Albumin (3.4 - 5.0 G/DL) 4.0 Lipase (114 - 286 Unit/L) 50 L Specimen Appearance (1 NORMAL Index/DL) 1 PHILIP L <2 MG Specimen Hemolysis (1 NORMAL Index/DL) 1 NORMAL <10 MG Hematology WBC (4.1 - 12.1 K/mm3) 17.4 H RBC (3.8 - 5.5 M/mm3) 4.56 Hgb (10.6 - 15.8 G/DL) 14.6 Hct (31.8 - 47.4 %) 41.9 MCV (80.1 - 101.1 fL) 91.9 MCH (25.3 - 35.3 pg) 32.0 MCHC (32.7 - 35.1 G/DL) 34.8 RDW (12.2 - 16.4 %) 12.1 L Plt Count (155 - 337 K/mm3) 287 MPV (6.8 - 11.2 fL) 8.8 Urines Urine Color (YELLOW DESCRIPT) YELLOW Urine Appearance (CLEAR DESCRIPT) TURBID (1+)JENKINS ZY-CLDY H Urine pH (4.6 - 8.0 pH UNITS) 6.5 Ur Specific [place] (1.001 - 1.035 SG) 1.026 Urine Protein (<30 (1+) mg/dL) NEGATIVE (0) Urine Glucose (UA) (0 (NORMAL) mg/dL) NORMAL (0 ) Urine Ketones ((NEG) 0 mg/dL) NEGATIVE (0) Urine Blood (0 (NEG) mg/dL) NEGATIVE (0.00) Urine Nitrite (NEG SCREEN) NEGATIVE (0) Urine Bilirubin ((NEG) 0 mg/dL) NEGATIVE (0.0) Urine Urobilinogen (<2.0 (1+) mg/Dl) NORMAL (0) Ur Leukocyte Esterase ((NEG) 0 Leuk/mcL) 250 H Urine RBC (0 - 3 #RBC/HPF) 0-3 Urine WBC (0 - 3 #WBC/HPF) 3-5 Ur Squamous Epith Cells (NONE - SQepi /UL) MAN Y >20 Amorphous Sediment (NONE - FEW #/mcL) RARE >0 Urine Bacteria (NONE - FEW /HPF) MODERATE >5 H Urine Mucus (NONE /LPF) RARE Urine Culture Screen (Cult byWBC Criteria) Crit NOTmet CULT-N/A Urine HCG, Qual (NEG) NEGATIVE Urine Comment (SpecComment NoteSPEC) CLEAN CATC H SPEC Microbiology: Date/Time Procedure - Status Source Growth 02/20 839 Blood Culture - COMP BLOOD 02/20 839 Blood Culture - COMP BLOOD 02/21 832 Blood Culture - COMP BLOOD 02/21 832 Blood Culture - COMP BLOOD Recent Impressions: CAT SCAN - CT ABD PELVIS W/CONT 02/21 812 Report Impression - Status: SIGNED Entered: 02/20/2021 0839 IMPRESSION: 2.2 cm cystlike lesion in the left ovary. No evidence of obstructive uropathy. Impression By: [email or web address] - Adelso Adler MD ULTRASOUND - US TRANSVAGINAL NON OB 02/20 851 Report Impression - Status: SIGNED Entered: 02/20/2021 0935 IMPRESSION: 1. No focal uterine masses. IUD in place in the endometrium. 2. No adnexal masses. 2.2 cm dominant left ovari an follicle, otherwise unremarkable ovaries. Impression By: [email or web address] - Antonino Miranda MD Lab Imaging Statement Laboratory radiographic studies reviewed and con sidered in the medical decision-making. Point of Care Testing Urinalysis Interpretation Urinalysis NL Pulse Oximetry Pulse Ox % 100 On: Room air Interpretation Interpreted by me, Pulse oximetr y normal Time 0726 Lab Studies CBC Interpretation CBC normal except, WBC elevat ed BMP/CMP Interpretation BMP/CMP NL Re-Evaluation MDM )( Re-Evaluation/Progress #1 Text/Dict Note Patient's WBC is elevated, UA is negative for UT I will start secondary sepsis work-up. Discussed this with the olegario ent, awaiting for rest of her labs and a CAT scan to be done. Time of Re-Eval 0802 )( Re-Eval Status Unchanged Plan Post Re-Eval Additional diag testing Re-Evaluation/Progress #2 Text/Dict Note The patient is sleeping in t he room, woke her up, she reports that her pain has resolved after she got the medications in the ER . Discussed with her electrolytes are within philip l limits, lipase is normal, liver enzymes are within normal limits. Discussed with her her CT scan without any acute findings other than a left ovarian cyst, will proceed and do transvaginal u ltrasound. At this point the patient reports that she has a history of endometriosis and has had ovarian cyst intermittently for several years. She reports she will intermittently have lower abdominal pain due to her ovarian cyst Time of Eval 0846 Re-Eval Status Resolved (pain resolved.) Plan Post Re-Eval Additional imaging Re-Evaluation/Progress #3 Text/Dict Note Patient's pain has resolved since his been in e ER, repeat abdominal examination is unremarkable, discussed with the patient that her transvaginal ultrasound did reveal an ovarian cyst, no concer ns of torsion at this time, blood flow is normal. Again discussed all the lab results with the patient, CBC revealed elevated WBC count, electrolytes are with in normal limits, UA was negative for UTI other than turbid urine. UPT was negative. Lactic acid was 2.1 but she jenkins s received fluids in the ER. As the patient does have vomiting will d ischarge on Zofran, and will discharge on Flagyl for her tract diarrhea, advised to hyd rate herself to avoid dehydration. She is advised to follow-up with Manuel[facility] Urena as she does not have a primary care physician, discussed the CT scan results which was without any acute findings of any cholelithiasis, cholecystitis, diverticuliti s, appendicitis, bowel obstruction. Her lipase was normal, and hepatic function was normal. She will be discharged on antibiotics, d icyclomine, and Zofran. She is advised to follow-up with Manuela Hammer, strict return precautions were given to return for worsening symptoms she is comfortable with the p kathrin of discharge verbalized understanding when to return. Time of Eval 1010 Re-Eval Status Resolved (pain) Eval Following Treatment Pt. feels better, Condition improved, Tolerate liquids, no N/V Pain Re-Evaluation Denies pain Exam Post Tx - General Active, Alert, Vital sign s stable Exam Post Tx - Sys Review Abdomen soft, Abdomen nontender Plan Post Re-Eval Plan discharge Abd Pain MDM Note F < 40 The patient is resting comfortably and feels bet ter, is alert and in no distress. The repeat examination is unremarkable and benign; in particular, there is no discomfort at McBurney's point. The history, exam, diagnostic testing, and current condition do not suggest ac [place] appendicitis, bowel obstruction, tubovarian abscess, ectopic pregnan cy, ovarian torsion, acute cholecystitis, bowel perforation, major gastroin testinal bleeding, severe diverticulitis, sepsis, or other significant pat hology to warrant further testing, continued ED treatment, admission, or s urgical evaluation at this point. The vital signs have been stable. The pat ient does not have uncontrollable pain, intractable vomiting, or ot her significant symptoms. The patient's condition is stable and appropriate fo r discharge. The patient will pursue further outpatient evaluation with the woman's hospital care physician or other designated or consulting physician as in dicated in the discharge instructions. ED Course Medication(s) Ordered Medication(s) Ordered: Anti-Infective Agents Sig/Maryanne Start time Last Medication Dose Route Stop Time Status Admin Ceftriaxone Sodium 1 GM X1ED STA 02/20 801 DC 02/20 Sterile Water 10 ML IV 02/20 803 0843 Central Nervous System Agents Sig/Maryanne Start time Last Medication Dose Route Stop Time Status Admin Ketorolac 30 MG X1ED STA 02/20 725 DC 02/20 Tromethamine IV 02/20 726 0744 Diagnostic Agents Sig/Maryanne Start time Last Medication Dose Route Stop Time Status Admin Iopamidol 75 ML .STK-MED ONE 02/20 811 DC 11/0 7 IV 02/21 812 0811 Electrolytic, Caloric, And Trey Sig/Maryanne Start time Last Medication Dose Route Stop Time Status Admin Sodium Chloride 250 ML X1ED STA 02/20 801 DC 1 04/22 IV 02/20 09 0844 Sodium Chloride 1,000 ML X1ED STA 02/20 0724 DC 02/20 IV 02/20 0823 0744 Gastrointestinal Drugs Sig/Maryanne Start time Last Medication Dose Route Stop Time Status Admin Ondansetron HCl 4 MG X1ED PRN PRN 02/20 730 DC 02/20 IV 0744 Patient Discharge Departure Vital Signs/Condition Vital Signs First Documented: Result Date Time Pulse Ox 100 02/20 709 B/P 103/63 02/20 709 B/P Mean 76 02/20 709 O2 Delivery Room air 02/20 709 Temp 97.3 02/20 709 Pulse 114 02/20 709 Resp 20 02/20 709 Last Documented: Result Date Time Pulse Ox 100 02/20 1030 B/P 114/59 02/20 1030 B/P Mean 77 02/20 1030 O2 Delivery Room air 02/20 1030 Temp 98.6 02/20 1030 Pulse 80 02/20 1030 Resp 16 02/20 1030 All vital signs available at the time of this en try have been reviewed. Condition Stable Clinical Impression Clinical Impression Primary Impression: Abdominal pain Secondary Impressions: Diarrhea, UTI (urinary tr act infection), Vomiting Time of Impression 1010 Disposition Decision Discharge )( Discharged to Home Yes )( Time 1010 )( Date 02/20/21 Discharge/Care Plan Counseled Regarding Diagnosi s, Lab results, Imaging studies, Prescriptions, Need for follow-up, When to return to ED (Auto) Prescriptions Current Visit Scripts CEPHALEXIN (KEFLEX) 500 MG PO Q6H CEPHALEXIN (KEFLEX) 500 MG PO Q6H #28 CAPS ONDANSETRON ODT (ZOFRAN ODT) 4 MG PO Q6H PRN PRN NAUSEA/VOMITING ONDANSETRON ODT (ZOFRAN ODT) 4 MG PO Q6H PRN [place] N NAUSEA/VOMITING #15 TABS DICYCLOMINE (BENTYL) 10 MG PO Q6H PRN PRN ABDOMI NAL PAIN/CRAMPING DICYCLOMINE (BENTYL) 10 MG PO Q6H PRN PRN ABDOM INAL PAIN/CRAMPING #30 CAPS metroNIDAZOLE (FLAGYL) 500 MG PO TID metroNIDAZOLE (FLAGYL) 500 MG PO TID #21 TABS Prescriptions Reviewed Risks, Benefits, Alternat theron treatment Patient Instructions Abdomin al Pain, ED Diarrhea, Unknown Cause, ED Ovarian Cyst , ED Vomiting (Adult) Additional Instructions Hydrate yourself well, take the medications as a dvised. Stay on a liquid diet for next 24 hours and then advance as tolerated avoid fried and greasy foods. Follow-up with Manuela Hammer. Return for worsening symptoms. Referrals [facility] Departure Forms WORK/SCHOOL EXCUSE-CAREGIVER 2 Discharge Note I have spoken with the patie nt and/or caregivers. I have explained the patient's condition, diagnoses and rebeca atment plan based on the information available to me at this time. I have answered the patient's and/ or caregiver's questions and addressed any concerns. The patient and/or careg queta have as good an understanding of the patient 's diagnosis, condition and treatment plan as can be expected at this point. The vital signs have bee n stable. The patient's condition is stable and appr opriate for discharge from the emergency department. The patient will pursue further outpatient evalu ation with the primary care physician or other designated or consulting phys ician as outlined in the discharge instructions. The patient and/or caregivers are agreeable to this plan of care and follow-up instructions have been exp lained in detail. The patient and/or caregivers have received these instructio ns in written format and have expressed an understanding of the discharge inst ructions. The patient and/or caregivers are aware that any significant change in condition or worsening of symptoms should prompt an immediate return to [facility] or the closest emergency department or a call to 911. Quality Measures Preg Test for Women w/Abd Pa in Female age 14-50, Complaint of abdominal pn, Any preg test ordered Free Text Depart Notes Free Text Depart Notes Strict return precautions are given. Praveen Lizarraga 02/28/21 0915: Patient Discharge Departure Supervising Physician Note MidLv Saw Pt Alone I have reviewed the PA/DIE TROUBLE SHOOTER's note and plan of car e. I was available for consultation as needed at al l times during the patient's visit in the emergency department. I agree with the clinical impression , plan and disposition. Electronically Signed by Indira Tyler on 11/03 at 1457 at 0915 RPT #:[id number] END OF REPORT 2018-06-06 [facility] 18:02:00-00:00 [facility] ([facility]) EMERGENCY PROVIDER REPORT REPORT#:[id number] REPORT STATUS: Signed DATE:06/06/18 TIME: 1801 PATIENT: BROOKE SYKES UNIT #: [id number] ROOM/BED: AGE: 28 SEX: F PCP PHYS: No Primary or Family Ph ysician SERVICE AUTHOR: Efren Gonzalez DIE TROUBLE SHOOTER * ALL edits or amendments must be made on the el ectronic/computer document * HPI-Trauma Minor/Fall General Confirmed Patient Yes Patient Type New patient Initial Greet Date/Time 06/06/18 171 Presentation Chief Complaint Fall, Extremity pain Hx Obtained From Patient Onset Occurred Today Symptom Duration Since onset Progression since Onset Unchanged Caused by Accidental Timing of Trauma Date of Trauma 06/06/18 Time of Trauma 1700 Context: Occurred at Home injury Location Upper extremity L Severity: Current Pain level 9 out of 10 Associated with Denies: Abdominal pain, Ches t pain, Loss of consciousness, Shortness of breath. Exacerbated by Movement, Palpation Relieved by Nothing Context Immunization Status General Unknown Recent Healthcare No recent doctor visit, No rec ent hospitalization Similar Sx Previous No /Sexual Hx Status Denies Free Text HPI Notes Free Text HPI Notes Patient is a 28-year-old female that comes to [facility] emergency department with chief complaint of fall at home at 1700. Patient reports she was on her front porch and turned and fell onto the left elbow. P atient reports pain to left shoulder, humerus, elbow, forearm, wrist, hand. Patient denies hitting head, denies loss of consciousness. Patient denies hea dache, neck pain, chest pain, back pain. Patient denies vi edilberto changes and loss of bowel and bladder control. Patient denies . Risk-Trauma Minor/Fall Risk Stratification [place] Coma Score > Age 5 [place] Coma Score > Age 5 Response Value Eye Opening Open spontaneously (4) 4 Verbal Response Oriented (5) 5 Motor Response Obeys commands (6) 6 Total 15 Review of Systems ROS Statements All systems rev neg except as marked. Focused Review of Systems Constitutional Denies: Chills, Fatigue, Fever. Eyes Denies: Blurred bilat, Discharge bilat, Eye pain bilat, Redness bilat. Ears/Nose/Throat Denies: Ear drainage bilat, Ear ringing bilat, E arache bilat, Hearing loss bilat. Respiratory Denies: Cough, non-productive, Cough, productive , Shortness of breath. Musculoskeletal Reports: Extremity pain. Denies: Myalgia, Neck p ain. Skin Denies: Rash. Neurologic Denies: Bladder dysfunction, Bowel dysfunction, Syncope. Past Medical History - Adult Stated Complaint fell on elbow Allergies Coded Allergies: Coconut (Severe, THROAT SWELLS 09/24/17) Home Medications Active Scripts HYDROcodone/APAP (VICODIN 5/ 300) 1 TAB PO Q4H PRN PRN ABDOMINAL CRAMPS/PAIN MDD 6 HYDROcodone/APAP (VICODIN 5/300) 1 TAB PO Q4H P RN PRN ABDOMINAL CRAMPS/PAIN MDD 6#30 TABS Prov: 09/26/17 Reported Medications ENOXAPARIN (LOVENOX) 40 MG SUBQ Q24H GABAPENTIN (NEURONTIN) 300 MG PO BID ACETAMINOPHEN/CODEINE (TYLENOL WITH CODEINE #4 3 00/60 MG) 1 TAB PO TID fentaNYL (DURAGESIC) 25 MCG.PER.HR TRANSDERM Q72 H DICYCLOMINE (BENTYL) 10 MG PO BID BACLOFEN (LIORESAL) 20 MG PO DAILY CYANOCOBALAMIN (VITAMIN B-12) 500 MCG PO DAILY ACETAMINOPHEN (TYLENOL) 325 MG PO Q6H PRN PRN PA IN Additional Medical History endometriosis Past Surgical History: Denies: Abdominal surgery. Alcohol Use Denies EtOH use Drug Use Denies recreational drugs Smoking status for patients 13 years old or olde r: Current every day smoker Physical Exam Vital Signs Vital Signs First Documented: Result Date Time Pulse Ox 100 06/06 171 B/P 137/81 06/06 1715 B/P Mean 99 06/06 1714 O2 Delivery Room air 06/06 1714 Temp 36.7 06/06 171 Pulse 84 06/06 171 Resp 18 06/06 1714 Last Documented: Result Date Time Pulse Ox 100 06/06 1715 B/P 137/81 06/06 1715 B/P Mean 99 06/06 1714 O2 Delivery Room air 06/06 1714 Temp 36.7 06/06 171 Pulse 84 06/06 1715 Resp 18 06/06 1714 Review of Vital Signs Reviewed Focused PE General/Const General/Const Awake, Alert, No acute di stress, Well developed, Well hydrated, Well nourished, Cooperative, Not toxic appearing Appearance/Presentation Uncomfortable. MS Head Head Atraumatic, Normocephalic Eyes Eyes Atraumatic, PERRL, EOMI, No nystagmus Ears/Nose/Throat Ears/Nose/Throat Atraumatic, Airway patent, Muc ous membranes moist MS Neck Neck Atraumatic, Supple, No meningismus, Full r kristen of motion, No midline vertebral tend Resp/Chest Respiratory/Chest Atraumatic, Breath sounds NL, Breath sounds = bilat, No respiratory distress Cardiovascular Cardiovascular Heart rate NL, Regular r hythm, Heart sounds NL, Cap refill not delayed, Peripheral circulation NL Abdomen/GI Abdomen/GI Atraumatic, Soft, Non-tender MS Back Back Atraumatic, Inspection NL, Full range of m otion, Painless range of motion, No midline vertebral tend MS Upper Extrem Upper Extremity/MS No deformity, Neurologic int act, Vascular intact Left Shoulder Tenderness present. Left Upper Arm Tenderness present. Left Elbow Tenderness present. Left Forearm Tenderness present. MS Wrist/Hand Wrist/Hand No deformity, Neurologic intact, Vas cular intact Left Wrist Tenderness present. Left Hand Tenderness present. MS Lower Extrem Lower Ext/Pelvis/MS Atraumatic, Inspection NL, Full range of motion MS Ankle/Foot Ankle/Foot Atraumatic, Inspection NL, Full rang e of motion Skin Skin Atraumatic, Color NL, No rash, War m, Dry, Intact, Turgor NL, No swelling Neurologic Neurologic Oriented X3, Speech NL, No motor def icits, No sensory deficits, Cerebellar NL, Memory NL, Gait NL Interpretation Diagnostics Lab Results Interpretation Results Recent Impressions: RADIOLOGY - XR HAND 3 + V LT 06/06 1812 Report Impression - Status: SIGNED Entered: 06/06/20181856 IMPRESSION: No acute osseous abnormality is identified. Impression By: Oliver Cardenas MD RADIOLOGY - XR WRIST 3 + V LT 06/06 1812 Report Impression - Status: SIGNED Entered: 06/06/2018 185 IMPRESSION: No acute osseous abnormality is identified. Impression By: Oliver Cardenas MD RADIOLOGY - XR FOREARM 2 VIEWS LT 06/06 1812 Report Impression - Status: SIGNED Entered: 06/06/2018 185 IMPRESSION: No acute osseous abnormality is identified. Impression By: Oliver Cardenas MD RADIOLOGY - XR ELBOW 3 + V LT 06/06 1812 Report Impression - Status: SIGNED Entered: 06/06/2018 185 IMPRESSION: No acute osseous abnormality is identified. Impression By: Oliver Cardenas MD RADIOLOGY - XR HUMERUS 2 + V LT 06/06 1812 Report Impression - Status: SIGNED Entered: 06/06/2018 185 IMPRESSION: No acute osseous abnormality is identified. Impression By: Oliver Cardenas MD RADIOLOGY - XR SHOULDER 2 + V LT 06/06 1812 Report Impression - Status: SIGNED Entered: 06/06/20181852 IMPRESSION: No acute osseous abnormality is identified. Impression By: Oliver Cardenas MD Imaging Statement Radiographic studies reviewed and considered in the medical decision-making. Re-Evaluation MDM Free Text MDM Notes Free Text MDM Notes Patient's arm placed in sling. Discussed diagnos tic results with patient. Patient to be discharged with prescription for p ain medicine. Patient given return precautions. Patient agrees to plan. ED Course Medication(s) Ordered Medication(s) Ordered: Central Nervous System Agents Sig/Maryanne Start time Last Medication Dose Route Stop Time Status Admin Hydrocodone Bitart/ 1 TAB X1ED STA 06/06 180 D C 06/06 Acetaminophen PO 06/06 180 1810 Patient Discharge Departure Vital Signs/Condition Vital Signs First Documented: Result Date Time Pulse Ox 100 06/06 1715 B/P 137/81 06/06 1715 B/P Mean 99 06/06 1715 O2 Delivery Room air 06/06 171 Temp 36.7 06/06 171 Pulse 84 06/06 1715 Resp 18 06/06 171 Last Documented: Result Date Time Pulse Ox 100 06/06 1715 B/P 137/81 06/06 1715 B/P Mean 99 06/06 1715 O2 Delivery Room air 06/06 171 Temp 36.7 06/06 171 Pulse 84 06/06 1715 Resp 18 06/06 171 All vital signs available at the time of this en try have been reviewed. Condition Stable Clinical Impression Clinical Impression Primary Impression: Fall Secondary Impressions: Arm pain Disposition Decision Discharge )( Discharged to Home Yes )( Time 191 )( Date 06/06/18 Discharge/Care Plan Counseled Regarding Diagnosi s, Imaging studies, Prescriptions, Need for follow- up, When to return to ED Prescriptions t3, ibuprofen Prescriptions Reviewed Risks, Benefits, Alternat theron treatment Discharge Note I have spoken with the patie nt and/or caregivers. I have explained the patient's condition, diagnoses and rebeca atment plan based on the information available to me at this time. I have answered the patient's and/ or caregiver's questions and addressed any concerns. The patient and/or careg queta have as good an understanding of the patient 's diagnosis, condition and treatment plan as can be expected at this point. The vital signs have bee n stable. The patient's condition is stable and appr opriate for discharge from the emergency department. The patient will pursue further outpatient evalu ation with the primary care physician or other designated or consulting phys ician as outlined in the discharge instructions. The patient and/or caregivers are agreeable to this plan of care and follow-up instructions have been exp lained in detail. The patient and/or caregivers have received these instructio ns in written format and have expressed an understanding of the discharge inst ructions. The patient and/or caregivers are aware that any significant change in condition or worsening of symptoms should prompt an immediate return to [facility] or the closest emergency department or a call to 911. Electronically Signed by Efren Gonzalez NP on 0 06/06/18 at 1912 RPT #:[id number] END OF REPORT 2018-06-06 [facility] 18:02:00-00:00 [facility] ([facility]) EMERGENCY PROVIDER REPORT REPORT#:[id number] REPORT STATUS: Signed DATE:06/06/18 TIME: 1801 PATIENT: BROOKE SYKES UNIT #: [id number] ROOM/BED: AGE: 28 SEX: F PCP PHYS: No Primary or Family P hysician SERVICE AUTHOR: Efren Gonzalez NP * ALL edits or amendments must be made on the [employer]/computer document * Efren Gonzalez 06/06/181801: HPI-Trauma Minor/Fall General Confirmed Patient Yes Patient Type New patient Presentation Chief Complaint Fall, Extremity pain Hx Obtained From Patient Onset Occurred Today Symptom Duration Since onset Progression since Onset Unchanged Caused by Accidental Timing of Trauma Date of Trauma 06/06/18 Time of Trauma 1700 Context: Occurred at Home injury Location Upper extremity L Severity: Current Pain level 9 out of 10 Associated with Denies: Abdominal pain, Ches t pain, Loss of consciousness, Shortness of breath. Exacerbated by Movement, Palpation Relieved by Nothing Context Immunization Status General Unknown Recent Healthcare No recent doctor visit, No rec ent hospitalization Similar Sx Previous No /Sexual Hx Status Denies Free Text HPI Notes Free Text HPI Notes Patient is a 28-year-old female that comes to [facility] emergency department with chief complaint of fall at home at 1700. Patient reports she was on her front porch and turned and fell onto the left elbow. P atient reports pain to left shoulder, humerus, elbow, forearm, wrist, hand. Patient denies hitting head, denies loss of consciousness. Patient denies hea dache, neck pain, chest pain, back pain. Patient denies vi edilberto changes and loss of bowel and bladder control. Patient denies . Risk-Trauma Minor/Fall Risk Stratification [place] Coma Score > Age 5 Elena Coma Score > Age 5 Response Value Eye Opening Open spontaneously (4) 4 Verbal Response Oriented (5) 5 Motor Response Obeys commands (6) 6 Total 15 Review of Systems ROS Statements All systems rev neg except as marked. Focused Review of Systems Constitutional Denies: Chills, Fatigue, Fever. Eyes Denies: Blurred bilat, Discharge bilat, Eye pain bilat, Redness bilat. Ears/Nose/Throat Denies: Ear drainage bilat, Ear ringing bilat, E arache bilat, Hearing loss bilat. Respiratory Denies: Cough, non-productive, Cough, productive , Shortness of breath. Musculoskeletal Reports: Extremity pain. Denies: Myalgia, Neck p ain. Skin Denies: Rash. Neurologic Denies: Bladder dysfunction, Bowel dysfunction, Syncope. Past Medical History - Adult Stated Complaint fell on elbow Allergies Coded Allergies: Coconut (Severe, THROAT SWELLS 09/24/17) Home Medications Active Scripts HYDROcodone/APAP (VICODIN 5/ 300) 1 TAB PO Q4H PRN PRN ABDOMINAL CRAMPS/PAIN MDD 6 HYDROcodone/APAP (VICODIN 5/300) 1 TAB PO Q4H P RN PRN ABDOMINAL CRAMPS/PAIN MDD 6#30 TABS Prov: 09/26/17 Reported Medications ENOXAPARIN (LOVENOX) 40 MG SUBQ Q24H GABAPENTIN (NEURONTIN) 300 MG PO BID ACETAMINOPHEN/CODEINE (TYLENOL WITH CODEINE #4 3 00/60 MG) 1 TAB PO TID fentaNYL (DURAGESIC) 25 MCG.PER.HR TRANSDERM Q72 H DICYCLOMINE (BENTYL) 10 MG PO BID BACLOFEN (LIORESAL) 20 MG PO DAILY CYANOCOBALAMIN (VITAMIN B-12) 500 MCG PO DAILY ACETAMINOPHEN (TYLENOL) 325 MG PO Q6H PRN PRN PA IN Additional Medical History endometriosis Past Surgical History: Denies: Abdominal surgery. Alcohol Use Denies EtOH use Drug Use Denies recreational drugs Smoking status for patients 13 years old or olde r: Current every day smoker Physical Exam Vital Signs Vital Signs First Documented: Result Date Time Pulse Ox 100 06/06 1714 B/P 137/81 06/06 1714 B/P Mean 99 06/06 1714 O2 Delivery Room air 06/06 1714 Temp 98.0 06/06 1714 Pulse 84 06/06 1714 Resp 18 06/06 1714 Last Documented: Result Date Time Pulse Ox 100 06/06 1927 B/P 127/80 06/06 1927 B/P Mean 95 06/06 1927 O2 Delivery Room air 06/06 1927 Temp 98.1 06/06 1927 Pulse 83 06/06 1927 Resp 18 06/06 1927 Review of Vital Signs Reviewed Focused PE General/Const General/Const Awake, Alert, No acute di stress, Well developed, Well hydrated, Well nourished, Cooperative, Not toxic appearing Appearance/Presentation Uncomfortable. MS Head Head Atraumatic, Normocephalic Eyes Eyes Atraumatic, PERRL, EOMI, No nystagmus Ears/Nose/Throat Ears/Nose/Throat Atraumatic, Airway patent, Muc ous membranes moist MS Neck Neck Atraumatic, Supple, No meningismus, Full r kristen of motion, No midline vertebral tend Resp/Chest Respiratory/Chest Atraumatic, Breath sounds NL, Breath sounds = bilat, No respiratory distress Cardiovascular Cardiovascular Heart rate NL, Regular r hythm, Heart sounds NL, Cap refill not delayed, Peripheral circulation NL Abdomen/GI Abdomen/GI Atraumatic, Soft, Non-tender MS Back Back Atraumatic, Inspection NL, Full range of m otion, Painless range of motion, No midline vertebral tend MS Upper Extrem Upper Extremity/MS No deformity, Neurologic int act, Vascular intact Left Shoulder Tenderness present. Left Upper Arm Tenderness present. Left Elbow Tenderness present. Left Forearm Tenderness present. MS Wrist/Hand Wrist/Hand No deformity, Neurologic intact, Vas cular intact Left Wrist Tenderness present. Left Hand Tenderness present. MS Lower Extrem Lower Ext/Pelvis/MS Atraumatic, Inspection NL, Full range of motion MS Ankle/Foot Ankle/Foot Atraumatic, Inspection NL, Full rang e of motion Skin Skin Atraumatic, Color NL, No rash, War m, Dry, Intact, Turgor NL, No swelling Neurologic Neurologic Oriented X3, Speech NL, No motor def icits, No sensory deficits, Cerebellar NL, Memory NL, Gait NL Interpretation Diagnostics Lab Results Interpretation Results Recent Impressions: RADIOLOGY - XR HAND 3 + V LT 06/06 1812 Report Impression - Status: SIGNED Entered: 06/06/2018 185 IMPRESSION: No acute osseous abnormality is identified. Impression By: Oliver Cardenas MD RADIOLOGY - XR WRIST 3 + V LT 06/06 1812 Report Impression - Status: SIGNED Entered: 06/06/2018 185 IMPRESSION: No acute osseous abnormality is identified. Impression By: Oliver Cardenas MD RADIOLOGY - XR FOREARM 2 VIEWS LT 06/06 1812 Report Impression - Status: SIGNED Entered: 06/06/2018 185 IMPRESSION: No acute osseous abnormality is identified. Impression By: Oliver Cardenas MD RADIOLOGY - XR ELBOW 3 + V LT 06/06 1812 Report Impression - Status: SIGNED Entered: 06/06/2018 185 IMPRESSION: No acute osseous abnormality is identified. Impression By: Oliver Cardenas MD RADIOLOGY - XR HUMERUS 2 + V LT 06/06 1812 Report Impression - Status: SIGNED Entered: 06/06/2018 1855 IMPRESSION: No acute osseous abnormality is identified. Impression By: Oliver Cardenas MD RADIOLOGY - XR SHOULDER 2 + V LT 06/06 1812 Report Impression - Status: SIGNED Entered: 06/06/2018 185 IMPRESSION: No acute osseous abnormality is identified. Impression By: Oliver Cardenas MD Imaging Statement Radiographic studies reviewed and considered in the medical decision-making. Re-Evaluation MDM Free Text MDM Notes Free Text MDM Notes Patient's arm placed in sling. Discussed diagnos tic results with patient. Patient to be discharged with prescription for p ain medicine. Patient given return precautions. Patient agrees to plan. ED Course Medication(s) Ordered Medication(s) Ordered: Central Nervous System Agents Sig/Maryanne Start time Last Medication Dose Route Stop Time Status Admin Hydrocodone Bitart/ 1 TAB X1ED STA 06/06 1800 D C 06/06 Acetaminophen PO 06/06 Patient Discharge Departure Vital Signs/Condition Vital Signs First Documented: Result Date Time Pulse Ox 100 06/06 1714 B/P 137/81 06/06 1714 B/P Mean 99 06/06 1714 O2 Delivery Room air 06/06 1714 Temp 98.0 06/06 1714 Pulse 84 06/06 1714 Resp 18 06/06 1714 Last Documented: Result Date Time Pulse Ox 100 06/06 1927 B/P 127/80 06/06 1927 B/P Mean 95 06/06 1927 O2 Delivery Room air 06/06 1927 Temp 98.1 06/06 1927 Pulse 83 06/06 1927 Resp 18 06/06 1927 All vital signs available at the time of this en try have been reviewed. Condition Stable Clinical Impression Clinical Impression Primary Impression: Fall Secondary Impressions: Arm pain Disposition Decision Discharge )( Discharged to Home Yes )( Time 1911 )( Date 06/06/18 Discharge/Care Plan Counseled Regarding Diagnosi s, Imaging studies, Prescriptions, Need for follow- up, When to return to ED Prescriptions t3, ibuprofen Prescriptions Reviewed Risks, Benefits, Alternat theron treatment Discharge Note I have spoken with the patie nt and/or caregivers. I have explained the patient's condition, diagnoses and rebeca atment plan based on the information available to me at this time. I have answered the patient's and/ or caregiver's questions and addressed any concerns. The patient and/or careg queta have as good an understanding of the patient 's diagnosis, condition and treatment plan as can be expected at this point. The vital signs have bee n stable. The patient's condition is stable and appr opriate for discharge from the emergency department. The patient will pursue further outpatient evalu ation with the primary care physician or other designated or consulting phys ician as outlined in the discharge instructions. The patient and/or caregivers are agreeable to this plan of care and follow-up instructions have been exp lained in detail. The patient and/or caregivers have received these instructio ns in written format and have expressed an understanding of the discharge inst ructions. The patient and/or caregivers are aware that any significant change in condition or worsening of symptoms should prompt an immediate return to [facility] or the closest emergency department or a call to 911. Ortega Loera. 06/07/18 0134: HPI-Trauma Minor/Fall General Initial Greet Date/Time 06/06/18 1717 Physical Exam Vital Signs Vital Signs Interpretation Diagnostics Lab Results Interpretation Results Re-Evaluation MDM ED Course Medication(s) Ordered Patient Discharge Departure Vital Signs/Condition Vital Signs Supervising Physician Note MidLv Saw Pt Alone I have reviewed the PA/DIE TROUBLE SHOOTER's note and plan of car e. I was available for consultation as needed at al l times during the patient's visit in the emergency department. I agree with the clinical impression , plan and disposition. Electronically Signed by Efren Gonzalez NP on 0 06/06/18 at 8222 Electronically Signed by Ortega Loera MD on at 0135 RPT #:[id number] END OF REPORT"
[2022-12-12] MEDS ORDERED: ONDANSETRON 4 MG/2 ML VIAL ONE (06:11)
[2022-12-12] MEDS ORDERED: NA CHLORIDE 0.9% 1,000 ML ONE (06:11)
[2022-12-12 06:26] LABS: Urine Bacteria None Seen /HPF (<20); Urine Bilirubin NEGATIVE (Negative); Urine Blood Negative (Negative); Urine Clarity Turbid (Clear); Urine Color Yellow (Yellow); Urine Glucose NEGATIVE (Negative); Urine Mucus Slight /HPF (None Seen); Urine Protein TRACE (Negative); Urine RBC <5 /HPF (None Seen); Urine Urobilinogen 2+ (Normal)
[2022-12-12 06:28] LABS: Absolute Lymphocytes (CBC) 0.5 K/uL (0.7-4.9); Hematocrit 29.8 % (36.0-45.0); Lymphocytes % 2.9 % (15.3-44.8); MCV 92.1 fL (80-100); MPV 7.1 fL (7.6-11.3); Platelets 285 thou/uL (152-406); RBC Red Blood Cell Count 3.24 M/uL (3.86-4.86)
[2022-12-12 06:41] LABS: Albumin 2.8 g/dL (3.4-5.0); Bilirubin Total 0.5 mg/dL (0.2-1.0); Potassium 3.7 mEq/L (3.5-5.1); Protein, Total 6.9 g/dL (6.4-8.2)
--- NOTE | 2022-12-12 07:01 | ER ---
Nurse's Notes [facility] Name: Brooke Thomas Age: 32 yrs Sex: Female : 1990 Arrival Date: 12/12/2022 Time: 05:36 Bed 7 Private MD: Diagnosis: 28 weeks gestation of ;Vomiting;Vomiting of , unspecified;Elevated white blood cell count Presentation: 12/12 05:53 Chief complaint: Patient states: EMESIS SINCE LAST NIGHT 7 MONTHS . Coronavirus kl screen: Vaccine status: Patient reports receiving the 2nd dose of the covid vaccine. Ebola Screen: Patient negative for fever greater than or equal to 101.5 degrees Fahrenheit, and additional compatible Ebola Virus Disease symptoms. Initial Sepsis Screen: Does the patient meet any 2 criteria? No. Patient's initial sepsis screen is negative. Does the patient have a suspected source of infection? No. Patient's initial sepsis screen is negative. Risk Assessment: Do you want to hurt yourself or someone else? Patient reports no desire to harm self or others. 05:53 Method Of Arrival: Ambulatory 05:53 Acuity: ILA 3 kl 05:58 Note DUE DATE 03/05/23. kl 07:12 Onset of symptoms was December 11, 2022. ap3 Triage Assessment: 05:56 General: Appears distressed, uncomfortable, Behavior is cooperative. Pain: Complains of kl pain in HEADACHE. GI: Reports intolerance of fluids, intolerance of food, nausea, vomiting, since LAST PM. CARE ATTENDANT: 05:57 4, Full Term 2, 1, Living 2, Verified kl Historical: - Allergies: 05:55 Amoxicillin; kl - Home Meds: 05:55 Suboxone sublingual [Active]; Ritalin Oral [Active]; Vitamin Oral [Active]; kl - PMHx: 05:55 narcolepsy; Previous drug user; kl - PSHx: 05:55 None; kl - Immunization history:: Adult Immunizations not up to date. - Social history:: Smoking status: Patient denies any tobacco usage or history of. Screenin:17 [facility] ED Fall Risk Assessment (Adult) History of falling in the last 3 months, vc1 including since admission No falls in past 3 months (0 pts) Confusion or Disorientation No (0 pts) Intoxicated or Sedated No (0 pts) Impaired Gait No (0 pts) Mobility Assist Device Used No (0 pt) Altered Elimination No (0 pt) Score/Fall Risk Level 0 - 2 = Low Risk Oriented to surroundings, Maintained a safe environment, Educated pt \T\ family on fall prevention, incl call for assistance when getting out of bed. Abuse screen: Denies threats or abuse. Nutritional screening: No deficits noted. Tuberculosis screening: No symptoms or risk factors identified. Assessment: 07:12 GI: Abdomen is round. ap3 Vital Signs: 05:53 BP 120 / 75; Pulse 87; Resp 16; Temp 98.8(O); Pulse Ox 98% on R/A; Weight 86.18 kg (R); kl Height 5 ft. 3 in. ; 06:38 BP 112 / 60; Pulse 74; Resp 16; Pulse Ox 97% ; vc1 05:53 Body Mass Index 33.66 (86.18 kg, 160.02 cm) kl Vitals: 06:31 Heart Tones 132 bpm. vc1 ED Course: 05:40 Patient arrived in ED. ag3 05:55 Triage completed. kl 05:57 Mark Panchal MD is Attending Physician. jeremy 06:10 Inserted saline lock: 22 gauge in right hand, using aseptic technique. vc1 06:17 CBC with Diff Sent. vc1 06:17 CMP Sent. vc1 06:17 Lipase Sent. vc1 06:17 Test, Urine Sent. vc1 06:17 Urinalysis w/ reflexes Sent. vc1 06:17 Arm band placed on right wrist. vc1 06:17 Patient has correct armband on for positive identification. Bed in low position. Call vc1 light in reach. Pulse ox on. NIBP on. 06:31 Jocelyn Lopez, RN is Primary Nurse. vc1 07:12 No provider procedures requiring assistance completed. IV discontinued, intact, ap3 bleeding controlled, No redness/swelling at site. Pressure dressing applied. 07:13 Provided Education on: discharge instructions. ap3 Administered Medications: 06:01 CANCELLED (Duplicate Order): morphine IVP or IV 4 mg IVP once over 4 mins jeremy 06:16 Drug: NS 0.9% IV 1000 ml Route: IV; Rate: 1 bolus; Site: left hand; vc1 07:12 Follow up: IV Status: Completed infusion ap3 06:16 Drug: Ondansetron IVP 4 mg Route: IVP; Site: left hand; vc1 07:12 Follow up: Response: No adverse reaction ap3 Medication: 06:17 VIS not applicable for this client. vc1 Outcome: 07:01 Discharge ordered by . jeremy 07:12 Discharged to home ambulatory, with family. ap3 07:12 Condition: good 07:12 Discharge instructions given to patient, Instructed on discharge instructions, follow up and referral plans. Demonstrated understanding of instructions, follow-up care, medications, Prescriptions given X 2. 07:13 Patient left the ED. ap3 Signatures: Concha Quinn RN Mark Moreau MD MD cha Prokisch, Amanda, RN RN ap3 Iram Kingston Vanessa, RN RN vc1
--- NOTE | 2022-12-12 07:01 | EDPHYS ---
Physician Documentation [facility] Name: Brooke Thomas Age: 32 yrs Sex: Female : 1990 Arrival Date: 12/12/2022 Time: 05:36 Bed 7 Private MD: BLAISE Physician Mark Panchal HPI: 12/12 06:54 This 32 yrs old Female presents to ER via Ambulatory with complaints of jeremy Vomiting. 06:54 The patient presents to the emergency department with nausea, that is mild, vomiting, jeremy that is intermittent. Onset: The symptoms/episode began/occurred yesterday. Possible causes: unknown. Possible causes: . The symptoms are aggravated by nothing. The symptoms are alleviated by nothing. Associated signs and symptoms: The patient has no apparent associated signs or symptoms. Severity of symptoms: At their worst the symptoms were mild in the emergency department the symptoms are unchanged. The patient has not experienced similar symptoms in the past. 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 - Social history:: Smoking status: Patient denies any tobacco usage or history of. ROS: 06:55 Constitutional: Negative for fever, chills, and weight loss, Eyes: Negative for injury, jeremy pain, redness, and discharge, ENT: Negative for injury, pain, and discharge, Neck: Negative for injury, pain, and swelling, Cardiovascular: Negative for chest pain, palpitations, and edema, Respiratory: Negative for shortness of breath, cough, wheezing, and pleuritic chest pain, Back: Negative for injury and pain, : Negative for injury, bleeding, discharge, and swelling, MS/Extremity: Negative for injury and deformity, Skin: Negative for injury, rash, and discoloration, Neuro: Negative for headache, weakness, numbness, tingling, and seizure, Psych: Negative for depression, anxiety, suicide ideation, homicidal ideation, and hallucinations, Allergy/Immunology: Negative for hives, rash, and allergies, Endocrine: Negative for neck swelling, polydipsia, polyuria, polyphagia, and marked weight changes, Hematologic/Lymphatic: Negative for swollen nodes, abnormal bleeding, and unusual bruising. 06:55 Abdomen/GI: Positive for nausea, vomiting, abdominal distension. Exam: 06:55 Constitutional: This is a well developed, well nourished patient who is awake, alert, jeremy and in no acute distress. Head/Face: Normocephalic, atraumatic. Eyes: Pupils equal round and reactive to light, extra-ocular motions intact. Lids and lashes normal. Conjunctiva and sclera are non-icteric and not injected. Cornea within normal limits. Periorbital areas with no swelling, redness, or edema. ENT: Nares patent. No nasal discharge, no septal abnormalities noted. Tympanic membranes are normal and external auditory canals are clear. Oropharynx with no redness, swelling, or masses, exudates, or evidence of obstruction, uvula midline. Mucous membranes moist. Neck: Trachea midline, no thyromegaly or masses palpated, and no cervical lymphadenopathy. Supple, full range of motion without nuchal rigidity, or vertebral point tenderness. No Meningismus. Chest/axilla: Normal chest wall appearance and motion. Nontender with no deformity. No lesions are appreciated. Cardiovascular: Regular rate and rhythm with a normal S1 and S2. No gallops, murmurs, or rubs. Normal PMI, no JVD. No pulse deficits. Respiratory: Lungs have equal breath sounds bilaterally, clear to auscultation and percussion. No rales, rhonchi or wheezes noted. No increased work of breathing, no retractions or nasal flaring. Back: No spinal tenderness. No costovertebral tenderness. Full range of motion. Skin: Warm, dry with normal turgor. Normal color with no rashes, no lesions, and no evidence of cellulitis. MS/ Extremity: Pulses equal, no cyanosis. Neurovascular intact. Full, normal range of motion. Neuro: Awake and alert, GCS 15, oriented to person, place, time, and situation. Cranial nerves II-XII grossly intact. Motor strength 5/5 in all extremities. Sensory grossly intact. Cerebellar exam normal. Normal gait. Psych: Awake, alert, with orientation to person, place and time. Behavior, mood, and affect are within normal limits. 06:55 Abdomen/GI: Inspection: gravid appearance, is noted, no hernia, no ctx, no vag bleeding, no lof, Bowel sounds: active, all quadrants, Palpation: abdomen is soft and non-tender, in all quadrants, Liver: no appreciated palpable abnormalities, Hernia: not appreciated. Vital Signs: 05:53 BP 120 / 75; Pulse 87; Resp 16; Temp 98.8(O); Pulse Ox 98% on R/A; Weight 86.18 kg (R); kl Height 5 ft. 3 in. ; 06:38 BP 112 / 60; Pulse 74; Resp 16; Pulse Ox 97% ; vc1 05:53 Body Mass Index 33.66 (86.18 kg, 160.02 cm) kl MDM: 05:57 Patient medically screened. [facility] 06:57 Differential diagnosis: Nonspecific abd pain, gastritis, pancreatitis, bowel jeremy obstruction. Data reviewed: vital signs, nurses notes, lab test result(s), radiologic studies. Consideration of Admission/Observation Escalation of care including admission/observation considered. I considered the following discharge prescriptions or medication management in the emergency department Medications were administered in the Emergency Department. See MAR. Test considered but Not performed: Ultrasound no preg us. Care significantly affected by the following chronic conditions: previous drugs, narcolepsy. Counseling: I had a detailed discussion with the patient and/or guardian regarding the historical points, exam findings, and any diagnostic results supporting the discharge/admit diagnosis, lab results, radiology results, the need for outpatient follow up, for definitive care, an OB/Gyne specialist. 12/12 05:57 Order name: CBC with Diff [facility] 12/12 05:57 Order name: CMP; Complete Time: 06:53 jeremy 12/12 05:57 Order name: Lipase; Complete Time: 06:53 jeremy 12/12 05:57 Order name: Test, Urine; Complete Time: 06:53 jeremy 12/12 05:57 Order name: Urinalysis w/ reflexes; Complete Time: 06:53 jeremy 12/12 06:35 Order name: CBC Smear Scan [facility] 12/12 05:57 Order name: IV Saline Lock; Complete Time: 06:16 jeremy 12/12 05:57 Order name: Labs collected and sent; Complete Time: 06:16 [facility] 12/12 06:04 Order name: FHT's; Complete Time: 06:31 jeremy Administered Medications: 06:01 CANCELLED (Duplicate Order): morphine IVP or IV 4 mg IVP once over 4 mins jeremy 06:16 Drug: NS 0.9% IV 1000 ml Route: IV; Rate: 1 bolus; Site: left hand; vc1 07:12 Follow up: IV Status: Completed infusion ap3 06:16 Drug: Ondansetron IVP 4 mg Route: IVP; Site: left hand; vc1 07:12 Follow up: Response: No adverse reaction ap3 Disposition Summary: 12/12/22 07:01 Discharge Ordered Location: Home [facility] Problem: new jeremy Symptoms: have improved jeremy Condition: Stable jeremy Diagnosis - 28 weeks gestation of jeremy - Vomiting jeremy - Vomiting of , unspecified jeremy - Elevated white blood cell count jeremy Followup: jeremy - With: Private Physician - When: 2 - 3 days - Reason: Recheck today's complaints, Continuance of care, Re-evaluation by your physician Discharge Instructions: - Discharge Summary Sheet jeremy - Nausea and Vomiting, Adult jeremy - Care jeremy - Vomiting, Adult [facility] Forms: - Medication Reconciliation Form [facility] - Thank You Letter jeremy - Antibiotic Education jeremy - Prescription Opioid Use jeremy - Patient Portal Instructions jeremy - Leadership Thank You Letter jeremy - Work release form ap3 Prescriptions: - ondansetron 4 mg Oral Tablet,disintegrating - take 1 tablet by ORAL route every 6 to 8 hours for 5 days; 20 tablet; Refills: jeremy 0, Product Selection Permitted - promethazine 25 mg Oral Tablet - take 1 tablet by ORAL route every 6 hours As needed; 20 tablet; Refills: 0, jeremy Product Selection Permitted Signatures: Dispatcher [employer] Concha Mccain RN RN kl Anderson, Corey, MD MD cha Calcote, Vanessa, RN RN vc1 Chikis Smith RN ap3 Corrections: (The following items were deleted from the chart) 06:01 05:57 morphine IVP or IV 4 mg IVP once over 4 mins ordered. [facility]
[2022-12-12 07:36] VITALS: TEMP 98.8
[2022-12-12 07:37] VITALS: BP 112/60; O2SAT 97
[2022-12-12 07:51] LABS: Blood Morphology Comment NOT SEEN (NOT SEEN); Platelet Estimate ADEQ; White Blood Cell Scan OK (OK)
== END 2022-12-12 07:13 | disposition home or self-care (01) ==
LOC: ER 05:36
DX: O21.9 Vomiting of pregnancy, unspecified (principal); D72.829 Elevated white blood cell count, unspecified; Z3A.28 28 weeks gestation of pregnancy; Z88.1 Allergy status to other antibiotic agents
CPT/HCPCS: 36415; 80053; 81001; 81025; 83690; 85025; 96361; 96374; 99284; J2405; J7030

== ENCOUNTER 2022-12-24 09:09 | Emergency (ER) | payer OTHER ==
--- OUTSIDE RECORDS SUMMARY | 2022-12-24 09:18 | XMS REPORT | Continuity of Care Document ---
:1990 Author Organization [facility] t Address [address] [place] [address] [place] [id number] Care Team Providers Name Role Phone AMENA BETANCOURT Primary Care Physician Unavailable PHILIP MAYES Attending Clinician Unavailable SHANTHI BAUER Attending Clinician Unavailable Lizette Shanthi BUENO Attending Clinician [phone] AVELINO CLAYTON Attending Clinician Unavailable Ultrasound, Ang-m Attending Clinician Unavailable Avelino Clayton MD Attending Clinician [phone] Amber Rey Attending Clinician Unavailable JA SALDANA Attending Clinician Unavailable Ja Saldana MD Attending Clinician Doctor Unassigned, [place] Attending Clinician Unavailable SANIYA WOLF Attending Clinician Unavailable RUSTAM YU Attending Clinician Unavailable RUSTAM YU Attending Clinician Unavailable , [facility] Usg Room Attending Clinician Unavailable Rustam Yu MD Attending Clinician Luciano BRUNNER, Saniya Pineda Attending Clinician ALBERTO MONTES Attending Clinician Unavailable Alberto Montes MD Attending Clinician TERRENCE BARRON Attending Clinician Unavailable [facility], [facility]ending Clinician Unavailable Terrence Barron MD Attending Clinician ADILSON CHERRY Attending Clinician Unavailable AMENA BETANCOURT Attending Clinician Unavailable AMENA BETANCOURT Attending Clinician Unavailable Pob, [facility] Main Attending Clinician Unavailable Rosibel Ramirez MD Attending Clinician ROSIBEL RAMIREZ Attending Clinician Unavailable Lab, Ang - Tereso Attending Clinician Unavailable Susan MARTINEZ Attending Clinician Unavailable Susan Kelly Attending Clinician Nurse, [facility] Attending Clinician Unavailable Unknown, Attending Attending Clinician Unavailable SAGAR GONZALEZ Attending Clinician Unavailable Deanne Simmons MA Attending Clinician Unavailable JARETH OLMEDO Attending Clinician Unavailable Jareth Olmedo MD Attending Clinician 2, [facility] Attending Clinician Unavailable Quinten Kline MD M Attending Clinician KAMERON DANIELS Attending Clinician Unavailable Kameron Daniels MD Attending Clinician Praveen Lizarraga Attending Clinician Unavailable AMENA BETANCOURT Admitting Clinician Unavailable Susan MARTINEZ Admitting Clinician Unavailable KAMERON DANIELS Admitting Clinician Unavailable Physician, No Primary or Family Admitting Clinician Unavaila ble Payers Payer Name Policy Type Policy Number Effective Date Expiration Date S ource $20 G [id number] 2007 00:00:00 [facility]MERLY [facility] [id number] 2022 CHOICE [place] 00:00:00 [place] [id number] 2022 WOMEN 00:00:00 Problems Condition Condition Condition [...] of high[place] [facility] Branch History of History of Disease Active 2022-0 U nivers miscarriag miscarriag 4-10 it y of e e 00:00: [place] [facility] Nausea and Nausea and Disease Active 2022-0 U nivers vomiting vomiting 4-10 ity of in in 00:00: [place] 00 [facility] Branch Missed Missed Disease Active 2021-04 Univers 2-27 ity of 00:00: [place] [address] Medical Branch Vaginal Vaginal Disease Active 2021-04 Univers bleeding bleeding 2-27 ity of 00:00: [place] [address] Medical Branch Rh Rh Disease Active 2021-04 [...] e e 00:00: [place] treatment treatment 00 [facility] complicati complicati Br anch ng ng , , antepartum antepartum Narcolepsy Narcolepsy Disease Active 2021-04 Overview : Univers due to due to 04-24 Formattin ity of underlying underlying 00:00: g of this [place] condition condition 00 note [facility] without without might be Branch cataplexy cataplexy different from the original. 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 Unive rs Leiden Leiden 04-24 ity of mutation, mutation, [place] heterozygo heterozygo 00 Me dical us us Branch Needs flu Needs flu Disease [...] Disease Active 2021-04 U nivers vomiting vomiting 1-09 ity of in in 00:00: [place] 00 [facility] prior to prior to Branch 22 weeks 22 weeks gestation gestation 5 weeks 5 weeks Disease Active 2021-04 [facility] [place] [facility] gestation gestation 1-09 ity of of of 00:00: [place] 00 [facility] Branch 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 Medical lesion lesion Branch (HGSIL), (HGSIL), grade 2 grade 2 STEFAN, on STEFAN, on biopsy of biopsy of cervix cervix Pain Pain Disease Active 2021-04 Univers pelvic pelvic 0-13 ity of 00:00: [place] 00 [facility] Branch S/P LEEP S/P LEEP Disease Active 2021-04 Unive rs 0-13 ity of 00:00: [address] Branch BMI BMI Disease Active Univers 30.0-30.9, 30.0-30.9, 8-10 it y of adult adult 00:00: [place] 00 Medical Branch Screening Screening Disease Active Uni vers examinatio examinatio 11-12 it y of n for STD n for STD 00:00[place] ([place]ually (sexually 00 [facility] senait transmitte transmitte Br anch d disease) d disease) Late Late Disease Active Univers menses menses 11-12 ity of 00:00: [place] [address] [facility] BMI BMI Disease Active Univers 29.0-29.9, 29.0-29.9, 7 it y of adult adult 00:00: [place] [address] [facility] Well woman Well woman Disease Active U [...] use 11-22 ity of disorder disorder 00:00: [address] Allergies, Adverse Reactions, Alerts Allergy Allergy Status Severity Reaction(s) Onset Inactive Treating Comm ents Source Name Type Date Date Clinician Amoxicil Propensi Active Itching Unive rs jalen ty to 705 ity of adverse 00:00: [place] reaction [address] [place] [address] AMOXICIL DRUG Active ITCHING Univers JALEN INGREDI 705 ity of 00:00: [address] [place] DA Active MO RASH 2020-04 [facility] ins 1-07 [place] 00:00: [address] [place] DA Active SV 2017- [facility] 6-11 [place] 00:00: [address] Social History Social Habit Start Date Stop Date Quantity Comments Source ASSERTION 2022-06-19 University of 00:00:00 [facility] History of tobacco Cigarette Smoker University of use [facility] Gender identity Universit y of [facility] Sexual orientation Univer sity of [facility] Exposure to 2022-09-08 2022-09-18 Not sure University of SARS-CoV-2 (event) 00:00:00 15:45:00 [facility] History of Social 2022-09-18 2022-09-18 Univers ity of function 00:00:00 00:00:00 [facility] Alcohol intake 2022-09-18 2022-09-18 Lifetime University of 00:00:00 00:00:00 non-drinker [facility] (finding) Branch Cigarettes smoked 2022-07-24 2022-07-24 Univers ity of current (pack per 00:00:00 00:00:00 ) - Reported Branch Cigarette 2022-07-24 2022-07-24 University of pack-years 00:00:00 00:00:00 [facility] Tobacco use and 2022-07-24 2022-07-24 Smokeless Universit y of exposure 00:00:00 00:00:00 tobacco non-user [facility] Tobacco Comment 2021-10-27 2021-10-27 taking Chantix Unive rsity of 00:00:00 00:00:00 [facility] Sex [birth year] Universit y of 00:00:00 00:00:00 [facility] Smoking Status Start Date Stop Date Source Ex-smoker 2022-07-24 00:00:00 2022-07-24 00:00:00 Universi ty of [facility] Smokes tobacco daily 2021-10-27 00:00:00 [facility] [place] [facility] ity [facility] Medications Ordered Filled Start Stop Current Ordering Indication Dosage Frequency Signature Comments Components Source Medication Medication Date Date Medication? Clinician (SIG) Name Name doxylamine- Yes [id number] 2{tbl} Take 2 Univers pyridoxine, 8-29 tablets by it y of vit B6, 00:00: mouth at [facility] 00 bedtime. Medic al 10-10 mg Branch per tablet doxylamine- 0 Yes [id number] 2{tbl} Take 2 Univers pyridoxine, 8-29 tablets by it y of vit B6, 00:00: mouth at [facility]) 00 bedtime. Medic al 10-10 mg Branch per tablet doxylamine- Yes [id number] 2{tbl} Take 2 Univers pyridoxine, 8-29 tablets by it y of vit B6, 00:00: mouth at [facility]) 00 bedtime. Medic al 10-10 mg Branch per tablet methylpheni 2023-0 Yes 5mg Take 1 Univ ers date HCl 5 8-03 tablet by ity of mg tablet 10:30: mouth in [place] [address] the Medical morning Branch and 1 tablet at noon and 1 tablet in the evening. methylpheni 2023-0 Yes 5mg Take 1 Univ ers date HCl 5 8-03 tablet by ity of mg tablet 10:30: mouth in [place] [address] the Medical morning Branch and 1 tablet at noon and 1 tablet in the evening. methylpheni 2023-0 Yes 5mg Take 1 Univ ers date HCl 5 8-03 tablet by ity of mg tablet 10:30: mouth in [place] [address] the Medical morning Branch and 1 tablet at noon and 1 tablet in the evening. methylpheni 2023-0 Yes 5mg Take 1 Univ ers date HCl 5 8-03 tablet by ity of mg tablet 10:30: mouth in [place] [address] the [facility] morning [place] and 1 tablet at noon and 1 tablet in the evening. methylpheni 2023-0 Yes 5mg Take 1 Univ ers date HCl 5 8-03 tablet by ity of mg tablet 10:30: mouth in [place] [address] the Medical morning [place] and 1 tablet at noon and 1 tablet in the evening. methylpheni 2023-0 Yes 5mg Take 1 Univ ers date HCl 5 8-03 tablet by ity of mg tablet 10:30: mouth in [place] [address] the Medical morning [place] and 1 tablet at noon and 1 tablet in the evening. methylpheni 2023-0 Yes 5mg Take 1 Univ ers date HCl 5 8-03 tablet by ity of mg tablet 10:30: mouth in [place] [address] the Medical morning Branch and 1 tablet at noon and 1 tablet in the evening. methylpheni 2023-0 Yes 5mg Take 1 Univ ers date HCl 5 8-03 tablet by ity of mg tablet 10:30: mouth in [place] [address] the Medical morning Branch and 1 tablet at noon and 1 tablet in the evening. methylpheni 2023-0 Yes 5mg Take 1 Univ ers date HCl 5 8-03 tablet by ity of mg tablet 10:30: mouth in [place] [address] the Medical morning [place] and 1 tablet at noon and 1 tablet in the evening. methylpheni 2023-0 Yes 5mg Take 1 Univ ers date HCl 5 8-03 tablet by ity of mg tablet 10:30: [place] Medical morning Branch and 1 tablet at noon and 1 tablet in the evening. methylpheni 2022-0 Yes 5mg Take 1 Univ ers date HCl 5 8-03 tablet by ity of mg tablet 10:30: [place] Medical morning Branch and 1 tablet at noon and 1 tablet in the evening. DICLEGIS 2022- Yes [id number] TAKE 2 Uni vers 10-10 mg 7-06 TABLETS BY ity o f per tablet 00:00: MOUTH AT [place] 00 BEDTIME IF Medical NO RELIEF Branch ON DAY 3 TAKE 1 TAB. IN THE MORNING AND 2 TABS. AT BEDTIME, NO RELIEF DAY 4 TAKE 1 TAB. MORNING, 1 TAB. IN AFTERNOON AND 2 TABS. BEDTIME DICLEGIS Yes [id number] TAKE 2 Uni vers 10-10 mg 7-06 TABLETS BY ity o f per tablet 00:00: MOUTH AT [place] 00 BEDTIME IF Medical NO RELIEF Branch ON DAY 3 TAKE 1 TAB. IN THE MORNING AND 2 TABS. AT BEDTIME, NO RELIEF DAY 4 TAKE 1 TAB. MORNING, 1 TAB. IN AFTERNOON AND 2 TABS. BEDTIME DICLEGIS Yes [id number] TAKE 2 Uni vers 10-10 mg 7-06 TABLETS BY ity o f per tablet 00:00: MOUTH AT [place] 00 BEDTIME IF Medical NO RELIEF Branch ON DAY 3 TAKE 1 TAB. IN THE MORNING AND 2 TABS. AT BEDTIME, NO RELIEF DAY 4 TAKE 1 TAB. MORNING, 1 TAB. IN AFTERNOON AND 2 TABS. BEDTIME DICLEGIS 0 Yes [id number] TAKE 2 Uni vers 10-10 mg 7-06 TABLETS BY ity o f per tablet 00:00: MOUTH AT [place] 00 BEDTIME IF Medical NO RELIEF Branch ON DAY 3 TAKE 1 TAB. IN THE MORNING AND 2 TABS. AT BEDTIME, NO RELIEF DAY 4 TAKE 1 TAB. MORNING, 1 TAB. IN AFTERNOON AND 2 TABS. BEDTIME DICLEGIS 0 Yes [id number] TAKE 2 Uni vers 10-10 mg 7-06 TABLETS BY ity o f per tablet 00:00: MOUTH AT [place] 00 BEDTIME IF Medical NO RELIEF Branch ON DAY 3 TAKE 1 TAB. IN THE MORNING AND 2 TABS. AT BEDTIME, NO RELIEF DAY 4 TAKE 1 TAB. MORNING, 1 TAB. IN AFTERNOON AND 2 TABS. BEDTIME DICLEGIS 2022-0 Yes [id number] TAKE 2 Uni vers 10-10 mg 7-06 TABLETS BY ity o f per tablet 00:00: M[place]TH AT [place] 00 BEDTIME IF Medical NO RELIEF Branch ON DAY 3 TAKE 1 TAB. IN THE MORNING AND 2 TABS. AT BEDTIME, NO RELIEF DAY 4 TAKE 1 TAB. MORNING, 1 TAB. IN AFTERNOON AND 2 TABS. BEDTIME DICLEGIS Yes [id number] TAKE 2 Uni vers 10-10 mg 7-06 TABLETS BY ity o f per tablet 00:00: M[place]TH AT [place] 00 BEDTIME IF Medical NO RELIEF Branch ON DAY 3 TAKE 1 TAB. IN THE MORNING AND 2 TABS. AT BEDTIME, NO RELIEF DAY 4 TAKE 1 TAB. MORNING, 1 TAB. IN AFTERNOON AND 2 TABS. BEDTIME DICLEGIS Yes [id number] TAKE 2 Uni vers 10-10 mg 7-06 TABLETS BY ity o f per tablet 00:00: MOUTH AT [place] 00 BEDTIME IF Medical NO RELIEF Branch ON DAY 3 TAKE 1 TAB. IN THE MORNING AND 2 TABS. AT BEDTIME, NO RELIEF DAY 4 TAKE 1 TAB. MORNING, 1 TAB. IN AFTERNOON AND 2 TABS. BEDTIME DICLEGIS Yes [id number] TAKE 2 Uni vers 10-10 mg 7-06 TABLETS BY ity o f per tablet 00:00: MOUTH AT [place] 00 BEDTIME IF Medical NO RELIEF Branch ON DAY 3 TAKE 1 TAB. IN THE MORNING AND 2 TABS. AT BEDTIME, NO RELIEF DAY 4 TAKE 1 TAB. MORNING, 1 TAB. IN AFTERNOON AND 2 TABS. BEDTIME DICLEGIS 0 Yes [id number] TAKE 2 Uni vers 10-10 mg 7-06 TABLETS BY ity o f per tablet 00:00: MOUTH AT [place] 00 BEDTIME IF Medical NO RELIEF Branch ON DAY 3 TAKE 1 TAB. IN THE MORNING AND 2 TABS. AT BEDTIME, NO RELIEF DAY 4 TAKE 1 TAB. MORNING, 1 TAB. IN AFTERNOON AND 2 TABS. BEDTIME DICLEGIS 2022-0 Yes [id number] TAKE 2 Uni vers 10-10 mg 7-06 TABLETS BY ity o f per tablet 00:00: MOUTH AT [place] 00 BEDTIME IF Medical NO RELIEF Branch ON DAY 3 TAKE 1 TAB. IN THE MORNING AND 2 TABS. AT BEDTIME, NO RELIEF DAY 4 TAKE 1 TAB. MORNING, 1 TAB. IN AFTERNOON AND 2 TABS. BEDTIME DICLEGIS 0 Yes [id number] TAKE 2 Uni vers 10-10 mg 7-06 TABLETS BY ity o f per tablet 00:00: MOUTH AT [place] 00 BEDTIME IF Medical NO RELIEF Branch ON DAY 3 TAKE 1 TAB. IN THE MORNING AND 2 TABS. AT BEDTIME, NO RELIEF DAY 4 TAKE 1 TAB. MORNING, 1 TAB. IN AFTERNOON AND 2 TABS. BEDTIME DICLEGIS Yes [id number] TAKE 2 Uni vers 10-10 mg 7-06 TABLETS BY ity o f per tablet 00:00: MOUTH AT [place] 00 BEDTIME IF Medical NO RELIEF Branch ON DAY 3 TAKE 1 TAB. IN THE MORNING AND 2 TABS. AT BEDTIME, NO RELIEF DAY 4 TAKE 1 TAB. MORNING, 1 TAB. IN AFTERNOON AND 2 TABS. BEDTIME DICLEGIS Yes [id number] TAKE 2 Uni vers 10-10 mg 7-06 TABLETS BY ity o f per tablet 00:00: MOUTH AT [place] 00 BEDTIME IF Medical NO RELIEF Branch ON DAY 3 TAKE 1 TAB. IN THE MORNING AND 2 TABS. AT BEDTIME, NO RELIEF DAY 4 TAKE 1 TAB. MORNING, 1 TAB. IN AFTERNOON AND 2 TABS. BEDTIME DICLEGIS 0 Yes [id number] TAKE 2 Uni vers 10-10 mg 7-06 TABLETS BY ity o f per tablet 00:00: MOUTH AT [place] 00 BEDTIME IF Medical NO RELIEF Branch ON DAY 3 TAKE 1 TAB. IN THE MORNING AND 2 TABS. AT BEDTIME, NO RELIEF DAY 4 TAKE 1 TAB. MORNING, 1 TAB. IN AFTERNOON AND 2 TABS. BEDTIME DICLEGIS 0 Yes [id number] TAKE 2 Uni vers 10-10 mg 7-06 TABLETS BY ity o f per tablet 00:00: MOUTH AT [place] 00 BEDTIME IF Medical NO RELIEF Branch ON DAY 3 TAKE 1 TAB. IN THE MORNING AND 2 TABS. AT BEDTIME, NO RELIEF DAY 4 TAKE 1 TAB. MORNING, 1 TAB. IN AFTERNOON AND 2 TABS. BEDTIME DICLEGIS Yes [id number] TAKE 2 Uni vers 10-10 mg 7-06 TABLETS BY ity o f per tablet 00:00: MOUTH AT [place] 00 BEDTIME IF Medical NO RELIEF Branch ON DAY 3 TAKE 1 TAB. IN THE MORNING AND 2 TABS. AT BEDTIME, NO RELIEF DAY 4 TAKE 1 TAB. MORNING, 1 TAB. IN AFTERNOON AND 2 TABS. BEDTIME DICLEGIS Yes [id number] TAKE 2 Uni vers 10-10 mg 7-06 TABLETS BY ity o f per tablet 00:00: MOUTH AT [place] 00 BEDTIME IF Medical NO RELIEF Branch ON DAY 3 TAKE 1 TAB. IN THE MORNING AND 2 TABS. AT BEDTIME, NO RELIEF DAY 4 TAKE 1 TAB. MORNING, 1 TAB. IN AFTERNOON AND 2 TABS. BEDTIME DICLEGIS Yes [id number] TAKE 2 Uni vers 10-10 mg 7-06 TABLETS BY ity o f per tablet 00:00: MOUTH AT [place] 00 BEDTIME IF Medical NO RELIEF Branch ON DAY 3 TAKE 1 TAB. IN THE MORNING AND 2 TABS. AT BEDTIME, NO RELIEF DAY 4 TAKE 1 TAB. MORNING, 1 TAB. IN AFTERNOON AND 2 TABS. BEDTIME DICLEGIS Yes [id number] TAKE 2 Uni vers 10-10 mg 7-06 TABLETS BY ity o f per tablet 00:00: MOUTH AT [place] 00 BEDTIME IF Medical NO RELIEF Branch ON DAY 3 TAKE 1 TAB. IN THE MORNING AND 2 TABS. AT BEDTIME, NO RELIEF DAY 4 TAKE 1 TAB. MORNING, 1 TAB. IN AFTERNOON AND 2 TABS. BEDTIME DICLEGIS Yes [id number] TAKE 2 Uni vers 10-10 mg 7-06 TABLETS BY ity o f per tablet 00:00: MOUTH AT [place] 00 BEDTIME IF Medical NO RELIEF Branch ON DAY 3 TAKE 1 TAB. IN THE MORNING AND 2 TABS. AT BEDTIME, NO RELIEF DAY 4 TAKE 1 TAB. MORNING, 1 TAB. IN AFTERNOON AND 2 TABS. BEDTIME DICLEGIS Yes [id number] TAKE 2 Uni vers 10-10 mg 7-06 TABLETS BY ity o f per tablet 00:00: M[place]TH AT [place] 00 BEDTIME IF Medical NO RELIEF Branch ON DAY 3 TAKE 1 TAB. IN THE MORNING AND 2 TABS. AT BEDTIME, NO RELIEF DAY 4 TAKE 1 TAB. MORNING, 1 TAB. IN AFTERNOON AND 2 TABS. BEDTIME DICLEGIS Yes [id number] TAKE 2 Uni vers 10-10 mg 7-06 TABLETS BY ity o f per tablet 00:00: MOUTH AT [place] 00 BEDTIME IF Medical NO RELIEF Branch ON DAY 3 TAKE 1 TAB. IN THE MORNING AND 2 TABS. AT BEDTIME, NO RELIEF DAY 4 TAKE 1 TAB. MORNING, 1 TAB. IN AFTERNOON AND 2 TABS. BEDTIME metroNIDAZO 2022- No [id number] 500mg Take 1 Univers LE 500 mg 6-05 06-13 tablet by ity of tablet 00:00: 04:59 mouth in [place] 00 :00 the Medical morning Branch and 1 tablet in the evening. Do all this for 7 days. enoxaparin 2022- No [id number] 40mg inject 0.4 Univers (LOVENOX) 4-17 10-15 mL under ity o f 40 mg/0.4 00:00: 04:59 the skin [place] 00 :00 in the Medical injection morning Branch for 180 days. enoxaparin 2022- No [id number] 40mg inject 0.4 Univers (LOVENOX) 4-17 10-15 mL under ity o f 40 mg/0.4 00:00: 04:59 the skin [place] mL 00 :00 in the Medical injection morning Branch for 180 days. enoxaparin 2022- No [id number] 40mg inject 0.4 Univers (LOVENOX) 4-17 10-15 mL under ity o f 40 mg/0.4 00:00: 04:59 the skin [place] mL 00 :00 in the Medical injection morning Branch for 180 days. enoxaparin 2022- No [id number] 40mg inject 0.4 Univers (LOVENOX) 4-17 10-15 mL under ity o f 40 mg/0.4 00:00: 04:59 the skin [place] mL 00 :00 in the Medical injection morning Branch for 180 days. enoxaparin 2022- No [id number] 40mg inject 0.4 Univers (LOVENOX) 4-17 10-15 mL under ity o f 40 mg/0.4 00:00: 04:59 the skin [place] mL 00 :00 in the Medical injection morning Branch for 180 days. enoxaparin 2022-2022- No [id number] 40mg inject 0.4 Univers (LOVENOX) 4-17 10-15 mL under ity o f 40 mg/0.4 00:00: 04:59 the skin [place] mL 00 :00 in the Medical injection morning Branch for 180 days. enoxaparin 2022-2022- No [id number] 40mg inject 0.4 Univers (LOVENOX) 4-17 10-15 mL under ity o f 40 mg/0.4 00:00: 04:59 the skin [place] mL 00 :00 in the Medical injection morning Branch for 180 days. enoxaparin 2022-2022- No [id number] 40mg inject 0.4 Univers (LOVENOX) 4-17 10-15 mL under ity o f 40 mg/0.4 00:00: 04:59 the skin [place] mL 00 :00 in the Medical injection morning Branch for 180 days. enoxaparin 2022-2022- No [id number] 40mg inject 0.4 Univers (LOVENOX) 4-17 10-15 mL under ity o f 40 mg/0.4 00:00: 04:59 the skin [place] mL 00 :00 in the Medical injection morning Branch for 180 days. enoxaparin 2022-2022- No [id number] 40mg inject 0.4 Univers (LOVENOX) 4-17 10-15 mL under ity o f 40 mg/0.4 00:00: 04:59 the skin [place] mL 00 :00 in the Medical injection morning Branch for 180 days. enoxaparin 2022-2022- No [id number] 40mg inject 0.4 Univers (LOVENOX) 4-17 10-15 mL under ity o f 40 mg/0.4 00:00: 04:59 the skin [place] mL 00 :00 in the Medical injection morning Branch for 180 days. enoxaparin 2022-2022- No [id number] 40mg inject 0.4 Univers (LOVENOX) 4-17 10-15 mL under ity o f 40 mg/0.4 00:00: 04:59 the skin [place] mL 00 :00 in the Medical injection morning Branch for 180 days. enoxaparin 2022-2022- No [id number] 40mg inject 0.4 Univers (LOVENOX) 4-17 10-15 mL under ity o f 40 mg/0.4 00:00: 04:59 the skin [place] mL 00 :00 in the Medical injection morning Branch for 180 days. enoxaparin 2022-2022- No [id number] 40mg inject 0.4 Univers (LOVENOX) 4-17 10-15 mL under ity o f 40 mg/0.4 00:00: 04:59 the skin [place] mL 00 :00 in the Medical injection morning Branch for 180 days. enoxaparin 2022-2022- No [id number] 40mg inject 0.4 Univers (LOVENOX) 4-17 10-15 mL under ity o f 40 mg/0.4 00:00: 04:59 the skin [place] mL 00 :00 in the Medical injection morning Branch for 180 days. enoxaparin 2022-2022- No [id number] 40mg inject 0.4 Univers (LOVENOX) 4-17 10-15 mL under ity o f 40 mg/0.4 00:00: 04:59 the skin [place] mL 00 :00 in the Medical injection morning Branch for 180 days. enoxaparin 2022-2022- No [id number] 40mg inject 0.4 Univers (LOVENOX) 4-17 10-15 mL under ity o f 40 mg/0.4 00:00: 04:59 the skin [place] mL 00 :00 in the Medical injection morning Branch for 180 days. enoxaparin 2022-2022- No [id number] 40mg inject 0.4 Univers (LOVENOX) 4-17 10-15 mL under ity o f 40 mg/0.4 00:00: 04:59 the skin [place] mL 00 :00 in the Medical injection morning Branch for 180 days. enoxaparin 2022-3- No [id number] 40mg inject 0.4 Univers (LOVENOX) 4-17 10-15 mL under ity o f 40 mg/0.4 00:00: 04:59 the skin [place] mL 00 :00 in the Medical injection morning Branch for 180 days. enoxaparin 2022-2022- No [id number] 40mg inject 0.4 Univers (LOVENOX) 4-17 10-15 mL under ity o f 40 mg/0.4 00:00: 04:59 the skin [place] mL 00 :00 in the Medical injection morning Branch for 180 days. enoxaparin 2022-2022- No [id number] 40mg inject 0.4 Univers (LOVENOX) 4-17 10-15 mL under ity o f 40 mg/0.4 00:00: 04:59 the skin [place] mL 00 :00 in the Medical injection morning Branch for 180 days. enoxaparin 2022-2022- No [id number] 40mg inject 0.4 Univers (LOVENOX) 4-17 10-15 mL under ity o f 40 mg/0.4 00:00: 04:59 the skin [place] mL 00 :00 in the Medical injection morning Branch for 180 days. enoxaparin 2022-2022- No [id number] 40mg inject 0.4 Univers (LOVENOX) 4-17 10-15 mL under ity o f 40 mg/0.4 00:00: 04:59 the skin [place] mL 00 :00 in the Medical injection morning Branch for 180 days. enoxaparin 2022-2022- No [id number] 40mg inject 0.4 Univers (LOVENOX) 4-17 10-15 mL under ity o f 40 mg/0.4 00:00: 04:59 the skin [place] mL 00 :00 in the Medical injection morning Branch for 180 days. enoxaparin 2022-2022- No [id number] 40mg inject 0.4 Univers (LOVENOX) 4-17 10-15 mL under ity o f 40 mg/0.4 00:00: 04:59 the skin [place] mL 00 :00 in the Medical injection morning Branch for 180 days. enoxaparin 2022-2022- No [id number] 40mg inject 0.4 Univers (LOVENOX) 4-17 10-15 mL under ity o f 40 mg/0.4 00:00: 04:59 the skin [place] mL 00 :00 in the Medical injection morning Branch for 180 days. enoxaparin 2022-2022- No [id number] 40mg inject 0.4 Univers (LOVENOX) 4-17 10-15 mL under ity o f 40 mg/0.4 00:00: 04:59 the skin [place] mL 00 :00 in the Medical injection morning Branch for 180 days. enoxaparin 2022-2022- No [id number] 40mg inject 0.4 Univers (LOVENOX) 4-17 10-15 mL under ity o f 40 mg/0.4 00:00: 04:59 the skin [place] mL 00 :00 in the Medical injection morning Branch for 180 days. enoxaparin 2022-2022- No [id number] 40mg inject 0.4 Univers (LOVENOX) 4-17 10-15 mL under ity o f 40 mg/0.4 00:00: 04:59 the skin [place] mL 00 :00 in the Medical injection morning Branch for 180 days. enoxaparin 2022-2022- No [id number] 40mg inject 0.4 Univers (LOVENOX) 4-17 10-15 mL under ity o f 40 mg/0.4 00:00: 04:59 the skin [place] mL 00 :00 in the Medical injection morning Branch for 180 days. enoxaparin 2022-2022- No [id number] 40mg inject 0.4 Univers (LOVENOX) 4-17 10-15 mL under ity o f 40 mg/0.4 00:00: 04:59 the skin [place] mL 00 :00 in the Medical injection morning Branch for 180 days. enoxaparin 2022-2022- No [id number] 40mg inject 0.4 Univers (LOVENOX) 4-17 10-15 mL under ity o f 40 mg/0.4 00:00: 04:59 the skin [place] mL 00 :00 in the Medical injection morning Branch for 180 days. enoxaparin 2022-2022- No [id number] 40mg inject 0.4 [facility] (LOVENOX) 4-17 10-15 mL under ity o f 40 mg/0.4 00:00: 04:59 the skin [place] as mL 00 :00 in the Medical injection morning Branch for 180 days. 2022- No Take by [facility] vit 4-14 04-14 mouth. ity of no.124/iron 15:09: 00:00 [place] /folic 24 :00 Medical ( Branch VITAMIN ORAL) doxylamine- Yes [id number] 2{tbl} Take 2 [facility] pyridoxine, 4-14 tablets by it y of vit B6, 00:00: mouth at [place] ([facility]) 00 bedtime. Medic al 10-10 mg Branch per tablet doxylamine- Yes [id number] 2{tbl} Take 2 [facility] pyridoxine, 4-14 tablets by it y of vit B6, 00:00: mouth at [place] ([facility]) 00 bedtime. Medic al 10-10 mg Branch per tablet doxylamine- Yes [id number] 2{tbl} Take 2 [facility] pyridoxine, 4-14 tablets by it y of vit B6, 00:00: mouth at [place] ([facility]) 00 bedtime. Medic al 10-10 mg Branch per tablet Yes [id number] 1{tbl} Take 1 [facility] vitamin 4-14 tablet by ity of w/FA tablet 00:00: mouth in [place] 00 the Medical morning. Branch doxylamine- Yes [id number] 2{tbl} Take 2 [facility] pyridoxine, 4-14 tablets by it y of vit B6, 00:00: mouth at [place] ([facility]) 00 bedtime. Medic al 10-10 mg Branch per tablet Yes [id number] 1{tbl} Take 1 [facility] vitamin 4-14 tablet by ity of w/FA tablet 00:00: mouth in [place] 00 the Medical morning. Branch doxylamine- Yes [id number] 2{tbl} Take 2 [facility] pyridoxine, 4-14 tablets by it y of vit B6, 00:00: mouth at [place] ([facility] 00 bedtime. Medic al 10-10 mg Branch per tablet Yes [id number] 1{tbl} Take 1 [facility]ivers vitamin 4-14 tablet by ity of w/FA tablet 00:00: mouth in [place] 00 the Medical morning. Branch doxylamine- Yes [id number] 2{tbl} Take 2 [facility] pyridoxine, 4-14 tablets by it y of vit B6, 00:00: mouth at [place] [facility] bed[facility]. Medic al 10-10 mg Branch per tablet Yes [id number] 1{tbl} Take 1 [facility]ivers vitamin 4-14 tablet by ity of w/FA tablet 00:00: mouth in [place] 00 the Medical morning. Branch doxylamine- Yes [id number] 2{tbl} Take 2 [facility] pyridoxine, 4-14 tablets by it y of vit B6, 00:00: mouth at [place] [facility] bedtime. Medic al 10-10 mg Branch per tablet Yes [id number] 1{tbl} Take 1 [facility] vitamin 4-14 tablet by ity of w/FA tablet 00:00: mouth in [place] 00 the Medical morning. Branch doxylamine- Yes [id number] 2{tbl} Take 2 [facility] pyridoxine, 4-14 tablets by it y of vit B6, 00:00: mouth at [place] [facility] bedtime. Medic al 10-10 mg Branch per tablet Yes [id number] 1{tbl} Take 1 [facility] vitamin 4-14 tablet by ity of w/FA tablet 00:00: mouth in [place] 00 the Medical morning. Branch doxylamine- Yes [id number] 2{tbl} Take 2 [facility] pyridoxine, 4-14 tablets by it y of vit B6, 00:00: mouth at [place] [facility] 00 bedtime. Medic al 10-10 mg Branch per tablet Yes [id number] 1{tbl} Take 1 [facility] vitamin 4-14 tablet by ity of w/FA tablet 00:00: mouth in [place] 00 the Medical morning. Branch doxylamine- Yes [id number] 2{tbl} Take 2 [facility] pyridoxine, 4-14 tablets by it y of vit B6, 00:00: mouth at [place] ([facility]) 00 bedtime. Medic al 10-10 mg Branch per tablet Yes [id number] 1{tbl} Take 1 [facility] vitamin 4-14 tablet by ity of w/FA tablet 00:00: mouth in [place] 00 the Medical morning. Branch doxylamine- Yes [id number] 2{tbl} Take 2 [facility] pyridoxine, 4-14 tablets by it y of vit B6, 00:00: mouth at [place] ([facility]) 00 bedtime. Medic al 10-10 mg Branch per tablet Yes [id number] 1{tbl} Take 1 [facility] vitamin 4-14 tablet by ity of w/FA tablet 00:00: mouth in [place] 00 the Medical morning. Branch doxylamine- Yes [id number] 2{tbl} Take 2 [facility] pyridoxine, 4-14 tablets by it y of vit B6, 00:00: mouth at [place] ([facility]) 00 bedtime. Medic al 10-10 mg Branch per tablet Yes [id number] 1{tbl} Take 1 [facility] vitamin 4-14 tablet by ity of w/FA tablet 00:00: mouth in [place] 00 the Medical morning. Branch doxylamine- Yes [id number] 2{tbl} Take 2 [facility] pyridoxine, 4-14 tablets by it y of vit B6, 00:00: mouth at [place] ([facility]) 00 bedtime. Medic al 10-10 mg Branch per tablet Yes [id number] 1{tbl} Take 1 [facility] vitamin 4-14 tablet by ity of w/FA tablet 00:00: mouth in [place] 00 the Medical morning. Branch Yes [id number] 1{tbl} Take 1 [facility] vitamin 4-14 tablet by ity of w/FA tablet 00:00: mouth in [place] 00 the Medical morning. Branch Yes [id number] 1{tbl} Take 1 [facility] vitamin 4-14 tablet by ity of w/FA tablet 00:00: mouth in [place] 00 the Medical morning. Branch Yes [id number] 1{tbl} Take 1 [facility] vitamin 4-14 tablet by ity of w/FA tablet 00:00: mouth in [place] 00 the Medical morning. Branch Yes [id number] 1{tbl} Take 1 [facility] vitamin 4-14 tablet by ity of w/FA tablet 00:00: mouth in [place] 00 the Medical morning. [facility] Yes [id number] 1{tbl} Take 1 U nivers vitamin 4-14 tablet by ity of w/FA tablet 00:00: mouth in [place] 00 the Medical morning. [facility] Yes [id number] 1{tbl} Take 1 U nivers vitamin 4-14 tablet by ity of w/FA tablet 00:00: mouth in [place] 00 the Medical morning. [facility] Yes [id number] 1{tbl} Take 1 U nivers vitamin 4-14 tablet by ity of w/FA tablet 00:00: mouth in [place] 00 the Medical morning. [facility] Yes [id number] 1{tbl} Take 1 U nivers vitamin 4-14 tablet by ity of w/FA tablet 00:00: mouth in [place] 00 the Medical morning. [facility] Yes [id number] 1{tbl} Take 1 U nivers vitamin 4-14 tablet by ity of w/FA tablet 00:00: mouth in [place] 00 the Medical morning. [facility] Yes [id number] 1{tbl} Take 1 U nivers vitamin 4-14 tablet by ity of w/FA tablet 00:00: mouth in [place] 00 the Medical morning. [facility] Yes [id number] 1{tbl} Take 1 U nivers vitamin 4-14 tablet by ity of w/FA tablet 00:00: mouth in [place] 00 the Medical morning. [facility] Yes [id number] 1{tbl} Take 1 U nivers vitamin 4-14 tablet by ity of w/FA tablet 00:00: mouth in [place] 00 the Medical morning. [facility] Yes [id number] 1{tbl} Take 1 U nivers vitamin 4-14 tablet by ity of w/FA tablet 00:00: mouth in [place] 00 the Medical morning. [facility] Yes [id number] 1{tbl} Take 1 U nivers vitamin 4-14 tablet by ity of w/FA tablet 00:00: mouth in [place] 00 the Medical morning. [facility] Yes [id number] 1{tbl} Take 1 U nivers vitamin 4-14 tablet by ity of w/FA tablet 00:00: mouth in [place] 00 the Medical morning. [facility] Yes [id number] 1{tbl} Take 1 [facility] nivers vitamin 4-14 tablet by ity of w/FA tablet 00:00: mouth in [place] 00 the Medical morning. [facility] Yes [id number] 1{tbl} Take 1 U nivers vitamin 4-14 tablet by ity of w/FA tablet 00:00: mouth in [place] 00 the Medical morning. [facility] Yes [id number] 1{tbl} Take 1 U nivers vitamin 4-14 tablet by ity of w/FA tablet 00:00: mouth in [place] 00 the Medical morning. [facility] Yes [id number] 1{tbl} Take 1 U nivers vitamin 4-14 tablet by ity of w/FA tablet 00:00: mouth in [place] 00 the Medical morning. [facility] Yes [id number] 1{tbl} Take 1 U nivers vitamin 4-14 tablet by ity of w/FA tablet 00:00: mouth in [place] 00 the Medical morning. [facility] Yes [id number] 1{tbl} Take 1 U nivers vitamin 4-14 tablet by ity of w/FA tablet 00:00: mouth in [place] 00 the Medical morning. [facility] Yes [id number] 1{tbl} Take 1 [facility] nivers vitamin 4-14 tablet by ity of w/FA tablet 00:00: mouth in [place] 00 the Medical morning. [facility] Yes [id number] 1{tbl} Take 1 U nivers vitamin 4-14 tablet by ity of w/FA tablet 00:00: mouth in [place] 00 the Medical morning. [place] doxylamine- 2022- No [id number] 2{tbl} Take 2 [facility] pyridoxine, 4-14 07-06 tablets by i ty of vit B6, 00:00: 00:00 mouth at [place] ([facility]) 00 :00 bedtime. Medic al 10-10 mg Branch per tablet proMETHazin Yes [id number] 25mg Take 1 [facility] e 25 mg 4-10 tablet by ity of tablet 00:00: mouth [place] 00 every 6 Medical (six) Branch hours as needed for Nausea and Vomiting (N/V). 2022-0 Yes [id number] 1{tbl} Take 1 [facility] n[facility] vitamin 4-10 tablet by ity of w/FA tablet 00:00: mouth in [place] 00 the Medical morning. Branch proMETHazin Yes [id number] 25mg Take 1 [facility] e 25 mg 4-10 tablet by ity of tablet 00:00: mouth [place] 00 every 6 Medical (six) Branch hours as needed for Nausea and Vomiting (N/V). 2022-0 Yes [id number] 1{tbl} Take 1 [facility] vitamin 4-10 tablet by ity of w/FA tablet 00:00: mouth in [place] 00 the Medical morning. Branch proMETHazin Yes [id number] 25mg Take 1 [facility] e 25 mg 4-10 tablet by ity of tablet 00:00: mouth [place] 00 every 6 Medical (six) Branch hours as needed for Nausea and Vomiting (N/V). 2022-0 Yes [id number] 1{tbl} Take 1 [facility] vitamin 4-10 tablet by ity of w/FA tablet 00:00: mouth in [place] 00 the Medical morning. Branch proMETHazin 2022-0 Yes [id number] 25mg Take 1 [facility] e 25 mg 4-10 tablet by ity of tablet 00:00: mouth [place] 00 every 6 Medical (six) Branch hours as needed for Nausea and Vomiting (N/V). 2022-0 Yes [id number] 1{tbl} Take 1 [facility] nivers vitamin 4-10 tablet by ity of w/FA tablet 00:00: mouth in [place] 00 the Medical morning. Branch proMETHazin 2022-0 Yes [id number] 25mg Take 1 [facility] e 25 mg 4-10 tablet by ity of tablet 00:00: mouth [place] 00 every 6 Medical (six) Branch hours as needed for Nausea and Vomiting (N/V). 2022-0 Yes [id number] 1{tbl} Take 1 U nivers vitamin 4-10 tablet by ity of w/FA tablet 00:00: mouth in [place] 00 the Medical morning. Branch proMETHazin 2022-0 Yes [id number] 25mg Take 1 [facility] e 25 mg 4-10 tablet by ity of tablet 00:00: mouth [place] 00 every 6 Medical (six) Branch hours as needed for Nausea and Vomiting (N/V). proMETHazin 2022-0 Yes [id number] 25mg Take 1 [facility] e 25 mg 4-10 tablet by ity of tablet 00:00: mouth [place] 00 every 6 Medical (six) Branch hours as needed for Nausea and Vomiting (N/V). proMETHazin 2022-0 Yes [id number] 25mg Take 1 [facility] e 25 mg 4-10 tablet by ity of tablet 00:00: mouth [place] 00 every 6 Medical (six) Branch hours as needed for Nausea and Vomiting (N/V). proMETHazin 2022-0 Yes [id number] 25mg Take 1 [facility] e 25 mg 4-10 tablet by ity of tablet 00:00: mouth [place] 00 every 6 Medical (six) Branch hours as needed for Nausea and Vomiting (N/V). proMETHazin 2022-0 Yes [id number] 25mg Take 1 [facility] e 25 mg 4-10 tablet by ity of tablet 00:00: mouth [place] 00 every 6 Medical (six) Branch hours as needed for Nausea and Vomiting (N/V). proMETHazin 2022-0 Yes [id number] 25mg Take 1 [facility] e 25 mg 4-10 tablet by ity of tablet 00:00: mouth [place] 00 every 6 Medical (six) Branch hours as needed for Nausea and Vomiting (N/V). proMETHazin 3-0 Yes [id number] 25mg Take 1 [facility] e 25 mg 4-10 tablet by ity of tablet 00:00: mouth [place] 00 every 6 Medical (six) Branch hours as needed for Nausea and Vomiting (N/V). proMETHazin 3-0 Yes [id number] 25mg Take 1 [facility] e 25 mg 4-10 tablet by ity of tablet 00:00: mouth [place] 00 every 6 Medical (six) Branch hours as needed for Nausea and Vomiting (N/V). proMETHazin 3-0 3- No [id number] 25mg Take 1 [facility] e 25 mg 4-10 06-05 tablet by ity of tablet 00:00: 00:00 mouth [place] 00 :00 every 6 Medical (six) Branch hours as needed for Nausea and Vomiting (N/V). 2022- No [id number] 1{tbl} Take 1 [facility] vitamin 4-10 04-14 tablet by ity of w/FA tablet 00:00: 00:00 mouth [place] 00 :00 the Medical morning. Branch miSOPROStoL 2021-04- No [id number] 800ug [facility] (CYTOTEC) 06-12 ity of tablet 800 22:30: 22:26 [place] mcg 00 :00 Medical Branch miSOPROStoL 2021-04- No [id number] 800ug 800 mcg, [facility] (CYTOTEC) 06-12 Oral, ity of tablet 800 22:30: :26 ONCE, 1 [place] mcg 00 :00 dose, On [facility] Branch 04/11/22 at 1630, Routine miSOPROStoL 2021-04- No [id number] 800ug [facility] (CYTOTEC) 06-12 ity of tablet 800 22:30: 22:26 [place] mcg 00 :00 Medical Branch miSOPROStoL 2021-04- No [id number] 800ug 800 mcg, [facility] (CYTOTEC) 06-12 Oral, ity of tablet 800 22:30: :26 ONCE, 1 [place] mcg 00 :00 dose, On [facility] Branch 04/11/22 at 1630, Routine NaCl 0.9% 2021-04- No 1000mL at 999 Uni vers (NS) bolus 05-25 mL/hr, ity of infusion 01:00: 00:55 1,000 mL, [place] as 1,000 mL 00 :00 IV Medical Infusion, Branch ONCE, 1 dose, On [place] 03/23/22 at 1900, STAT iopamidol 2021-04- No [id number] 65mL 65 mL, U nivers (ISOVUE 05-24 Intravenou ity o f 370-500 mL) 22:28: 22:29 s, ONCE, 1 [place] injection 00 :00 dose, On Medica l 65 mL [facility] Branch 03/23/22 at 1645, Routine ondansetron 2021-04 Yes [id number] 8mg Take 1 [facility] 8 mg 1-20 tablet by ity of disintegrat 00:00: mouth [place] ing tablet 00 every 8 Medica l (eight) Branch hours as needed for Nausea and Vomiting (N/V). ondansetron 2021-04 Yes [id number] 8mg Take 1 [facility] 8 mg 1-20 tablet by ity of disintegrat 00:00: mouth [place] ing tablet 00 every 8 Medica l (eight) Branch hours as needed for Nausea and Vomiting (N/V). ondansetron 2021-04 Yes [id number] 8mg Take 1 [facility] 8 mg 1-20 tablet by ity of disintegrat 00:00: mouth [place] ing tablet 00 every 8 Medica l (eight) Branch hours as needed for Nausea and Vomiting (N/V). ondansetron 2021-04 Yes [id number] 8mg Take 1 [facility] 8 mg 1-20 tablet by ity of disintegrat 00:00: mouth [place] ing tablet 00 every 8 Medica l (eight) Branch hours as needed for Nausea and Vomiting (N/V). ondansetron 2021-04 Yes [id number] 8mg Take 1 [facility] 8 mg 1-20 tablet by ity of disintegrat 00:00: mouth [place] ing tablet 00 every 8 Medica l (eight) Branch hours as needed for Nausea and Vomiting (N/V). ondansetron 2021-04 Yes [id number] 8mg Take 1 [facility] 8 mg 1-20 tablet by ity of disintegrat 00:00: mouth [place] ing tablet 00 every 8 Medica l (eight) Branch hours as needed for Nausea and Vomiting (N/V). ondansetron 2021-04 Yes [id number] 8mg Take 1 [facility] 8 mg 1-20 tablet by ity of disintegrat 00:00: mouth [place] ing tablet 00 every 8 Medica l (eight) Branch hours as needed for Nausea and Vomiting (N/V). ondansetron 2021-04 Yes [id number] 8mg Take 1 [facility] 8 mg 1-20 tablet by ity of disintegrat 00:00: mouth [place] ing tablet 00 every 8 Medica l (eight) Branch hours as needed for Nausea and Vomiting (N/V). ondansetron 2021-04 Yes [id number] 8mg Take 1 [facility] 8 mg 1-20 tablet by ity of disintegrat 00:00: mouth [place] ing tablet 00 every 8 Medica l (eight) Branch hours as needed for Nausea and Vomiting (N/V). ondansetron 2021-04 Yes [id number] 8mg Take 1 [facility] 8 mg 1-20 tablet by ity of disintegrat 00:00: mouth [place] ing tablet 00 every 8 Medica l (eight) Branch hours as needed for Nausea and Vomiting (N/V). ondansetron 2021-04 Yes [id number] 8mg Take 1 [facility] 8 mg 1-20 tablet by ity of disintegrat 00:00: mouth [place] ing tablet 00 every 8 Medica l (eight) Branch hours as needed for Nausea and Vomiting (N/V). ondansetron 2021-04 Yes [id number] 8mg Take 1 [facility] 8 mg 1-20 tablet by ity of disintegrat 00:00: mouth [place] ing tablet 00 every 8 Medica l (eight) Branch hours as needed for Nausea and Vomiting (N/V). ondansetron 2021-04 Yes [id number] 8mg Take 1 [facility] 8 mg 1-20 tablet by ity of disintegrat 00:00: mouth [place] ing tablet 00 every 8 Medica l (eight) Branch hours as needed for Nausea and Vomiting (N/V). ondansetron 2021-04 Yes [id number] 8mg Take 1 [facility] 8 mg 1-20 tablet by ity of disintegrat 00:00: mouth [place] ing tablet 00 every 8 Medica l (eight) Branch hours as needed for Nausea and Vomiting (N/V). ondansetron 2021-04 Yes [id number] 8mg Take 1 [facility] 8 mg 1-20 tablet by ity of disintegrat 00:00: mouth [place] ing tablet 00 every 8 Medica l (eight) Branch hours as needed for Nausea and Vomiting (N/V). ondansetron 2021-04 Yes [id number] 8mg Take 1 [facility] 8 mg 1-20 tablet by ity of disintegrat 00:00: mouth [place] ing tablet 00 every 8 Medica l (eight) Branch hours as needed for Nausea and Vomiting (N/V). ondansetron 2021-04 Yes [id number] 8mg Take 1 [facility] 8 mg 1-20 tablet by ity of disintegrat 00:00: mouth [place] ing tablet 00 every 8 Medica l (eight) Branch hours as needed for Nausea and Vomiting (N/V). ondansetron 2021-04 Yes [id number] 8mg Take 1 [facility] 8 mg 1-20 tablet by ity of disintegrat 00:00: mouth [place] ing tablet 00 every 8 Medica l (eight) Branch hours as needed for Nausea and Vomiting (N/V). ondansetron 2021-04 Yes [id number] 8mg Take 1 [facility] 8 mg 1-20 tablet by ity of disintegrat 00:00: mouth [place] ing tablet 00 every 8 Medica l (eight) Branch hours as needed for Nausea and Vomiting (N/V). ondansetron 2021-04 Yes [id number] 8mg Take 1 [facility] 8 mg 1-20 tablet by ity of disintegrat 00:00: mouth [place] ing tablet 00 every 8 Medica l (eight) Branch hours as needed for Nausea and Vomiting (N/V). ondansetron 2021-04 Yes [id number] 8mg Take 1 [facility] 8 mg 1-20 tablet by ity of disintegrat 00:00: mouth [place] ing tablet 00 every 8 Medica l (eight) Branch hours as needed for Nausea and Vomiting (N/V). ondansetron 2021-04 Yes [id number] 8mg Take 1 [facility] 8 mg 1-20 tablet by ity of disintegrat 00:00: mouth [place] ing tablet 00 every 8 Medica l (eight) Branch hours as needed for Nausea and Vomiting (N/V). ondansetron 2021-04 Yes [id number] 8mg Take 1 [facility] 8 mg 1-20 tablet by ity of disintegrat 00:00: mouth [place] ing tablet 00 every 8 Medica l (eight) Branch hours as needed for Nausea and Vomiting (N/V). ondansetron 2021-04 Yes [id number] 8mg Take 1 [facility] 8 mg 1-20 tablet by ity of disintegrat 00:00: mouth [place] ing tablet 00 every 8 Medica l (eight) Branch hours as needed for Nausea and Vomiting (N/V). ondansetron 2021-04 Yes [id number] 8mg Take 1 [facility] 8 mg 1-20 tablet by ity of disintegrat 00:00: mouth [place] ing tablet 00 every 8 Medica l (eight) Branch hours as needed for Nausea and Vomiting (N/V). ondansetron 2021-04 Yes [id number] 8mg Take 1 [facility] 8 mg 1-20 tablet by ity of disintegrat 00:00: mouth [place] ing tablet 00 every 8 Medica l (eight) Branch hours as needed for Nausea and Vomiting (N/V). ondansetron 2021-04 Yes [id number] 8mg Take 1 [facility] 8 mg 1-20 tablet by ity of disintegrat 00:00: mouth [place] ing tablet 00 every 8 Medica l (eight) Branch hours as needed for Nausea and Vomiting (N/V). ondansetron 2021-04 Yes [id number] 8mg Take 1 [facility] 8 mg 1-20 tablet by ity of disintegrat 00:00: mouth [place] ing tablet 00 every 8 Medica l (eight) Branch hours as needed for Nausea and Vomiting (N/V). ondansetron 2021-04 Yes [id number] 8mg Take 1 [facility] 8 mg 1-20 tablet by ity of disintegrat 00:00: mouth [place] ing tablet 00 every 8 Medica l (eight) Branch hours as needed for Nausea and Vomiting (N/V). ondansetron 2021-04 Yes [id number] 8mg Take 1 [facility] 8 mg 1-20 tablet by ity of disintegrat 00:00: mouth [place] ing tablet 00 every 8 Medica l (eight) Branch hours as needed for Nausea and Vomiting (N/V). ondansetron 2021-04- No [id number] 8mg Take 1 [facility] 8 mg 1-20 04-10 tablet by ity of disintegrat 00:00: 00:00 [place] tablet 00 :00 every 8 Medica l (eight) Branch hours as needed for Nausea and Vomiting (N/V). 2021-[address] Take by [address] vit 1-09 mouth. ity of no.124/iron 15:57: [place] /folic 04 Medical ( Branch VITAMIN ORAL) 2021-04 Yes Take by [address] vit 1-09 mouth. ity of no.124/iron 15:57: [place] /folic 04 Medical ( Branch VITAMIN ORAL) 2021-04 Yes Take by [address] vit 1-09 mouth. ity of no.124/iron 15:57: [place] /folic 04 Medical ( Branch VITAMIN ORAL) 2021-04 Yes Take by [address] vit 1-09 mouth. ity of no.124/iron 15:57: [...] Branch VITAMIN ORAL) 2021-04 Yes Take by Unive rs vit 1-09 mouth. ity of no.124/iron 15:57: [...] Branch VITAMIN ORAL) 2021-04 Yes Take by [facility] vit 1-09 mouth. ity of no.124/iron 15:57: [place] /folic 04 Medical ( Branch VITAMIN ORAL) 2021-[address] [facility] vit 1-09 mouth. ity of no.124/iron 15:57: [place] /folic 04 Medical ( Branch VITAMIN ORAL) 2021-04 Yes Take by [facility] vit 1-09 mouth. ity of no.124/iron 15:57: [place] /folic 04 Medical ( Branch VITAMIN ORAL) metoclopram 2021-04 Yes [id number] 10mg Take 1 [facility] [place] HCl 10 1-09 tablet by ity of mg tablet 00:00: mouth [place] 00 every 6 Medical (six) Branch hours as needed for Nausea and Vomiting (N/V). metoclopram 2021-04 Yes [id number] 10mg Take 1 [facility] [place] HCl 10 1-09 tablet by ity of mg tablet 00:00: mouth [place] 00 every 6 Medical (six) Branch hours as needed for Nausea and Vomiting (N/V). metoclopram 2021-04 Yes [id number] 10mg Take 1 [facility] [place] HCl 10 1-09 tablet by ity of mg tablet 00:00: mouth [place] 00 every 6 Medical (six) Branch hours as needed for Nausea and Vomiting (N/V). metoclopram 2021-04 Yes [id number] 10mg Take 1 [facility] [place] HCl 10 1-09 tablet by ity of mg tablet 00:00: mouth [place] 00 every 6 Medical (six) Branch hours as needed for Nausea and Vomiting (N/V). metoclopram 2021-04 Yes [id number] 10mg Take 1 [facility] [place] HCl 10 1-09 tablet by ity of mg tablet 00:00: mouth [place] 00 every 6 Medical (six) Branch hours as needed for Nausea and Vomiting (N/V). metoclopram 2021-04 Yes [id number] 10mg Take 1 [facility] [place] HCl 10 1-09 tablet by ity of mg tablet 00:00: mouth [place] 00 every 6 Medical (six) Branch hours as needed for Nausea and Vomiting (N/V). metoclopram 2021-04 Yes [id number] 10mg Take 1 [facility] [place] HCl 10 1-09 tablet by ity of mg tablet 00:00: mouth [place] 00 every 6 Medical (six) Branch hours as needed for Nausea and Vomiting (N/V). metoclopram 2022-1 Yes [id number] 10mg Take 1 [facility] [place] HCl 10 1-09 tablet by ity of mg tablet 00:00: mouth [place] 00 every 6 Medical (six) Branch hours as needed for Nausea and Vomiting (N/V). metoclopram 2021-1 Yes [id number] 10mg Take 1 [facility] [place] HCl 10 1-09 tablet by ity of mg tablet 00:00: mouth [place] 00 every 6 Medical (six) Branch hours as needed for Nausea and Vomiting (N/V). metoclopram 2021-1 Yes [id number] 10mg Take 1 [facility] [place] HCl 10 1-09 tablet by ity of mg tablet 00:00: mouth [place] 00 every 6 Medical (six) Branch hours as needed for Nausea and Vomiting (N/V). metoclopram 2021-1 Yes [id number] 10mg Take 1 [facility] [place] HCl 10 1-09 tablet by ity of mg tablet 00:00: mouth [place] 00 every 6 Medical (six) Branch hours as needed for Nausea and Vomiting (N/V). metoclopram 2021- Yes [id number] 10mg Take 1 [facility] [place] HCl 10 1-09 tablet by ity of mg tablet 00:00: mouth [place] 00 every 6 Medical (six) Branch hours as needed for Nausea and Vomiting (N/V). metoclopram 2021-1 Yes [id number] 10mg Take 1 [facility] [place] HCl 10 1-09 tablet by ity of mg tablet 00:00: mouth [place] 00 every 6 Medical (six) Branch hours as needed for Nausea and Vomiting (N/V). metoclopram 2-1 Yes [id number] 10mg Take 1 [facility] [place] HCl 10 1-09 tablet by ity of mg tablet 00:00: mouth [place] 00 every 6 Medical (six) Branch hours as needed for Nausea and Vomiting (N/V). metoclopram 2022-1 Yes [id number] 10mg Take 1 [facility] [place] HCl 10 1-09 tablet by ity of mg tablet 00:00: mouth [place] 00 every 6 Medical (six) Branch hours as needed for Nausea and Vomiting (N/V). metoclopram 2-1 Yes [id number] 10mg Take 1 [facility] [place] HCl 10 1-09 tablet by ity of mg tablet 00:00: mouth [place] 00 every 6 Medical (six) Branch hours as needed for Nausea and Vomiting (N/V). metoclopram 2-1 Yes [id number] 10mg Take 1 [facility] [place] HCl 10 1-09 tablet by ity of mg tablet 00:00: mouth [place] 00 every 6 Medical (six) Branch hours as needed for Nausea and Vomiting (N/V). metoclopram 2021-1 Yes [id number] 10mg Take 1 [facility] [place] HCl 10 1-09 tablet by ity of mg tablet 00:00: mouth [place] 00 every 6 Medical (six) Branch hours as needed for Nausea and Vomiting (N/V). metoclopram 2021- Yes [id number] 10mg Take 1 [facility] [place] HCl 10 1-09 tablet by ity of mg tablet 00:00: mouth [place] 00 every 6 Medical (six) Branch hours as needed for Nausea and Vomiting (N/V). metoclopram 2021- Yes [id number] 10mg Take 1 [facility] [place] HCl 10 1-09 tablet by ity of mg tablet 00:00: mouth [place] 00 every 6 Medical (six) Branch hours as needed for Nausea and Vomiting (N/V). metoclopram 2021- Yes [id number] 10mg Take 1 [facility] [place] HCl 10 1-09 tablet by ity of mg tablet 00:00: mouth [place] 00 every 6 Medical (six) Branch hours as needed for Nausea and Vomiting (N/V). metoclopram 2021-1 Yes [id number] 10mg Take 1 [facility] [place] HCl 10 1-09 tablet by ity of mg tablet 00:00: mouth [place] 00 every 6 Medical (six) Branch hours as needed for Nausea and Vomiting (N/V). metoclopram 2021-1 Yes [id number] 10mg Take 1 [facility] 10 1-09 tablet by [facility] of mg tablet 00:00: mouth [place] 00 every 6 Medical (six) Branch hours as needed for Nausea and Vomiting (N/V). metoclopram 2022-1 Yes [id number] 10mg Take 1 [facility] HCl 10 1-09 tablet by [facility] of mg tablet 00:00: mouth [place] 00 every 6 Medical (six) Branch hours as needed for Nausea and Vomiting (N/V). metoclopram 2-1 Yes [id number] 10mg Take 1 [facility] HCl 10 1-09 tablet by [facility]y of mg tablet 00:00: mouth [place] 00 every 6 Medical (six) Branch hours as needed for Nausea and Vomiting (N/V). metoclopram 2021- Yes [id number] 10mg Take 1 [facility] HCl 10 1-09 tablet by ity of mg tablet 00:00: mouth [place] 00 every 6 Medical (six) Branch hours as needed for Nausea and Vomiting (N/V). metoclopram 2021- Yes [id number] 10mg Take 1 [facility] HCl 10 1-09 tablet by [facility] of mg tablet 00:00: mouth [place] 00 every 6 Medical (six) Branch hours as needed for Nausea and Vomiting (N/V). metoclopram 2021- Yes [id number] 10mg Take 1 [facility] HCl 10 1-09 tablet by ity of mg tablet 00:00: mouth [place] 00 every 6 Medical (six) Branch hours as needed for Nausea and Vomiting (N/V). metoclopram 2021- Yes [id number] 10mg Take 1 [facility] HCl 10 1-09 tablet by [facility]y of mg tablet 00:00: mouth [place] 00 every 6 Medical (six) Branch hours as needed for Nausea and Vomiting (N/V). metoclopram 2021- Yes [id number] 10mg Take 1 [facility] [place] HCl 10 1-09 tablet by [facility] of mg tablet 00:00: mouth [place] 00 every 6 Medical (six) Branch hours as needed for Nausea and Vomiting (N/V). metoclopram 2021-1 Yes [id number] 10mg Take 1 [facility] HCl 10 1-09 tablet by [facility] of mg tablet 00:00: mouth [place] 00 every 6 Medical (six) Branch hours as needed for Nausea and Vomiting (N/V). metoclopram 2021-1 Yes [id number] 10mg Take 1 [facility] [place] HCl 10 1-09 tablet by [facility] of mg tablet 00:00: mouth [place] 00 every 6 Medical (six) Branch hours as needed for Nausea and Vomiting (N/V). metoclopram 2-1 Yes [id number] 10mg Take 1 [facility] HCl 10 1-09 tablet by [facility] of mg tablet 00:00: mouth [place] 00 every 6 Medical (six) Branch hours as needed for Nausea and Vomiting (N/V). metoclopram 2021-1 Yes [id number] 10mg Take 1 [facility] HCl 10 1-09 tablet by [facility] of mg tablet 00:00: mouth [place] 00 every 6 Medical (six) Branch hours as needed for Nausea and Vomiting (N/V). metoclopram 2-1 Yes [id number] 10mg Take 1 [facility] HCl 10 1-09 tablet by [facility] of mg tablet 00:00: mouth [place] 00 every 6 Medical (six) Branch hours as needed for Nausea and Vomiting (N/V). metoclopram 2021-1 Yes [id number] 10mg Take 1 [facility] HCl 10 1-09 tablet by [facility] of mg tablet 00:00: mouth [place] 00 every 6 Medical (six) Branch hours as needed for Nausea and Vomiting (N/V). metoclopram 2021- Yes [id number] 10mg Take 1 [facility] HCl 10 1-09 tablet by [facility] of mg tablet 00:00: mouth [place] 00 every 6 Medical (six) Branch hours as needed for Nausea and Vomiting (N/V). metoclopram 2021- Yes [id number] 10mg Take 1 [facility] HCl 10 1-09 tablet by [facility] of mg tablet 00:00: mouth [place] 00 every 6 Medical (six) Branch hours as needed for Nausea and Vomiting (N/V). metoclopram 2021- Yes [id number] 10mg Take 1 [facility] HCl 10 1-09 tablet by [facility] of mg tablet 00:00: mouth [place] 00 every 6 Medical (six) Branch hours as needed for Nausea and Vomiting (N/V). metoclopram 2021-043- No [id number] 10mg Take 1 [facility] HCl 10 [...] IN MOUTH WITHOUT CHEWING OR SWALLOWING modafiniL 2022-0 Yes 200mg Take 200 [facility] vers 200 mg 6-14 mg by ity of tablet 00:00: mouth [place] 00 every Medical morning. Branch modafiniL 2022-0 Yes 200mg Take 200 [facility] vers 200 mg 6-14 mg by ity of tablet 00:00: mouth [place] 00 every Medical morning. Branch modafiniL 2021-0 Yes 200mg Take 200 [facility] vers 200 mg 6-14 mg by ity of tablet 00:00: mouth [place] 00 every Medical morning. Branch modafiniL 2021-0 2- No 200mg Take 200 [facility] 200 mg 6-14 09-23 mg by ity of tablet 00:00: 00:00 mouth [place] 00 :00 every Medical morning. Branch modafiniL 2-0 2022- No 200mg Take 200 [facility] 200 mg 6-14 09-23 mg by ity of tablet 00:00: 00:00 mouth [place] 00 :00 every Medical morning. Branch modafiniL 2021-0 2- No 200mg Take 200 [facility] 200 mg 6-14 09-23 mg by ity of tablet 00:00: 00:00 mouth [place] 00 :00 every Medical morning. Branch cyclobenzap 2021-0 Yes [id number] TAKE 1 [facility] rine 10 mg 5-07 TABLET BY ity of tablet 00:00: MOUTH [place] 00 EVERY 8 Medical HOURS Branch NEEDED FOR MUSCLE SPASMS. cyclobenzap 2021-0 Yes [id number] TAKE 1 [facility] 10 mg 5-07 TABLET BY ity of tablet 00:00: MOUTH [place] 00 EVERY 8 Medical HOURS Branch NEEDED FOR MUSCLE SPASMS. cyclobenzap 2021-0 Yes [id number] TAKE 1 [facility] 10 mg 5-07 TABLET BY ity of tablet 00:00: MOUTH [place] 00 EVERY 8 Medical HOURS Branch NEEDED FOR MUSCLE SPASMS. cyclobenzap 2021-0 Yes [id number] TAKE 1 [facility] 10 mg 5-07 TABLET BY ity of tablet 00:00: MOUTH [place] 00 EVERY 8 Medical HOURS Branch NEEDED FOR MUSCLE SPASMS. cyclobenzap 2021-0 Yes [id number] TAKE 1 [facility] 10 mg 5-07 TABLET BY ity of tablet 00:00: MOUTH [place] 00 EVERY 8 Medical HOURS Branch NEEDED FOR MUSCLE SPASMS. cyclobenzap 2021-0 Yes [id number] TAKE 1 [facility] 10 mg 5-07 TABLET BY ity of tablet 00:00: MOUTH [place] 00 EVERY 8 Medical HOURS Branch NEEDED FOR MUSCLE SPASMS. cyclobenzap 2021-0 2- No [id number] TAKE 1 [facility] 10 mg 5-07 10-13 TABLET BY ity of tablet 00:00: 00:00 MOUTH [place] 00 :00 EVERY 8 Medical HOURS Branch NEEDED FOR MUSCLE SPASMS. cyclobenzap 0 2021- No [id number] TAKE 1 [facility] 10 mg 5-07 10-13 TABLET BY ity of tablet 00:00: 00:00 MOUTH [place] 00 :00 EVERY 8 Medical HOURS Branch NEEDED FOR MUSCLE SPASMS. gabapentin 2019- Yes TK 1/2 TO Un queta 600 mg 7-25 1 T PO BID ity of tablet 00:00: Medical Branch gabapentin 2019-0 Yes TK 1/2 TO Un queta 600 mg 7-25 1 T PO BID ity of tablet 00:00: Medical Branch gabapentin 2019-0 Yes TK 1/2 TO Un queta 600 mg 7-25 1 T PO BID ity of tablet 00:00: [place] [facility] gabapentin 2019-0 Yes TK 1/2 TO Un queta 600 mg 7-25 1 T PO BID ity of tablet 00:00: Medical Branch gabapentin 2019-0 Yes TK 1/2 TO Un queta 600 mg 7-25 1 T PO BID ity of tablet 00:00: 00 Medical Branch gabapentin 2019-0 Yes TK 1/2 TO Un queta 600 mg 7-25 1 T PO BID ity of tablet 00:00: Medical Branch gabapentin 2019-0 2021- No TK 1/2 TO U nivers 600 mg 7-25 10-13 1 T PO BID ity of tablet 00:00: 00:00 [place] 00 :00 Medical Branch gabapentin 2019-0 2021- No TK 1/2 TO U nivers 600 mg 7-25 10-13 1 T PO BID ity of tablet 00:00: 00:00 [place] 00 :00 Medical Branch tablet 2018-[address] 1 [facility] compound 5-13 AND [...] tablet 2021- No PLACE 1 Univers compound -01-06 AND 1/2 ity of base no.230 00:00: 00:[place] (SU[place] 00 :00 UNDER THE Medica l RDT MISC) TONGUE Q Branch DAY ALLOW TO DISSOLVE SLOWLY WITHOUT CHEWING OR SWALLOWING tablet 2021- No PLACE 1 Univers compound -01-06 AND 1/2 ity of base no.230 00:00: 00:[place] (SUBSOLV 00 :00 UNDER THE Medica l RDT MISC) TONGUE Q Branch DAY ALLOW TO DISSOLVE SLOWLY WITHOUT CHEWING OR SWALLOWING tablet 2021- No PLACE 1 Univers compound 08-26 AND 1/2 ity of base no.230 00:00: 00:[place] (SU[place]OLV 00 :00 UNDER THE Medica l RDT MISC) TONGUE Q Branch DAY ALLOW TO DISSOLVE SLOWLY WITHOUT CHEWING OR SWALLOWING Immunizations Ordered Filled Immunization Date Status Comments [facility] e Immunization Name Name TDAP 2022-12-21 Completed University of 00:00:00 [facility] Rho (d) Immune 2022-12-21 Completed University of Globulin 00:00:00 [facility] Rho (d) Immune 2022-04-11 Completed University of Globulin 00:00:00 [facility] Rho (d) Immune 2022-04-11 Completed University of Globulin 00:00:00 [facility] Rho (d) Immune 2022-04-11 Completed University of Globulin 00:00:00 [facility] Rho (d) Immune 2022-04-11 Completed University of Globulin 00:00:00 [facility] Rho (d) Immune 2022-04-11 Completed University of Globulin 00:00:00 [facility] Rho (d) Immune 2022-04-11 Completed University of Globulin 00:00:00 [facility] Rho (d) Immune 2022-04-11 Completed University of Globulin 00:00:00 [facility] Rho (d) Immune 2022-04-11 Completed University of Globulin 00:00:00 [facility] Rho (d) Immune 2022-04-11 Completed University of Globulin 00:00:00 [facility] Branch Rho (d) Immune 2022-04-11 Completed University of Globulin 00:00:00 [facility] Branch Rho (d) Immune 2022-04-11 Completed University of Globulin 00:00:00 [facility] Branch Rho (d) Immune 2022-04-11 Completed University of Globulin 00:00:00 [facility] Branch Rho (d) Immune 2022-04-11 Completed University of Globulin 00:00:00 [facility] Branch Rho (d) Immune 2022-04-11 Completed University of Globulin 00:00:00 [facility] Branch Rho (d) Immune 2022-04-11 Completed University of Globulin 00:00:00 [facility] Branch Rho (d) Immune 2022-04-11 Completed University of Globulin 00:00:00 [facility] Branch Rho (d) Immune 2022-04-11 Completed University of Globulin 00:00:00 [facility] Rho (d) Immune 2022-04-11 Completed University of Globulin 00:00:00 [facility] Branch Rho (d) Immune 2022-04-11 Completed University of Globulin 00:00:00 [facility] Branch Rho (d) Immune 2022-04-11 Completed University of Globulin 00:00:00 [facility] Branch Rho (d) Immune 2022-04-11 Completed University of Globulin 00:00:00 [facility] Branch Rho (d) Immune 2022-04-11 Completed University of Globulin 00:00:00 [facility] Branch Rho (d) Immune 2022-04-11 Completed University of Globulin 00:00:00 [facility] Branch Rho (d) Immune 2022-04-11 Completed University of Globulin 00:00:00 [facility] Branch Rho (d) Immune 2022-04-11 Completed University of Globulin 00:00:00 [facility] Branch Rho (d) Immune 2022-04-11 Completed University of Globulin 00:00:00 [facility] Branch Rho (d) Immune 2022-04-11 Completed University of Globulin 00:00:00 [facility] Branch Rho (d) Immune 2022-04-11 Completed University of Globulin 00:00:00 [facility] Branch Rho (d) Immune 2022-04-11 Completed University of Globulin 00:00:00 [facility] Branch Rho (d) Immune 2022-04-11 Completed University of Globulin 00:00:00 [facility] Branch Rho (d) Immune 2022-04-11 Completed University of Globulin 00:00:00 [facility] Branch Rho (d) Immune 2022-04-11 Completed University of Globulin 00:00:00 [facility] Branch Rho (d) Immune 2022-04-11 Completed University of Globulin 00:00:00 [facility] Branch Rho (d) Immune 2022-04-11 Completed University of Globulin 00:00:00 [facility] Branch Rho (d) Immune 2022-04-11 Completed University of Globulin 00:00:00 [facility] Branch Rho (d) Immune 2022-04-11 Completed University of Globulin 00:00:00 [facility] Branch Rho (d) Immune 2022-04-11 Completed University of Globulin 00:00:00 [facility] Branch Rho (d) Immune 2022-04-11 Completed University of Globulin 00:00:00 [facility] Branch Rho (d) Immune 2022-04-11 Completed University of Globulin 00:00:00 [facility] Rho (d) Immune 2022-04-11 Completed University of Globulin 00:00:00 [facility] Rho (d) Immune 2022-04-11 Completed University of Globulin 00:00:00 [facility] Branch Rho (d) Immune 2022-04-11 Completed University of Globulin 00:00:00 [facility] Rho (d) Immune 2022-04-11 Completed University of Globulin 00:00:00 [facility] Branch Rho (d) Immune 2022-04-11 Completed University of Globulin 00:00:00 [facility] Rho (d) Immune 2022-04-11 Completed University of Globulin 00:00:00 [facility] Branch Rho (d) Immune 2022-04-11 Completed University of Globulin 00:00:00 [facility] Rho (d) Immune 2022-04-11 Completed University of Globulin 00:00:00 [facility] HPV9 2022-03-28 Completed University of 00:00:00 [facility] Branch HPV9 2022-03-28 Completed University of 00:00:00 [facility] Branch HPV9 2022-03-28 Completed University of 00:00:00 [facility] Branch HPV9 2022-03-28 Completed University of 00:00:00 [facility] Branch HPV9 2022-03-28 Completed University of 00:00:00 [facility] Branch HPV9 2022-03-28 Completed University of 00:00:00 [...] HPV9 2022-03-28 Completed University of 00:00:00 [facility] Branch HPV9 2022-03-28 Completed University of 00:00:00 [facility] Branch HPV9 2022-03-28 Completed University of 00:00:00 [place] [facility] HPV9 2022-03-28 Completed University of 00:00:00 [facility] Branch HPV9 2022-03-28 Completed University of 00:00:00 [facility] Branch HPV9 2022-03-28 Completed University of 00:00:00 [place] [facility] HPV9 2022-03-28 Completed University of 00:00:00 [place] [facility] HPV9 2022-03-28 Completed University of 00:00:00 [facility] Branch HPV9 2022-03-28 Completed University of 00:00:00 [facility] Branch HPV9 2022-03-28 Completed University of 00:00:00 [facility] Branch HPV9 2022-03-28 Completed University of 00:00:00 [facility] Branch HPV9 2022-03-28 Completed University of 00:00:00 [facility] Branch HPV9 2022-03-28 Completed University of 00:00:00 [place] [facility] HPV9 2022-03-28 Completed University of 00:00:00 [facility] Branch HPV9 2022-03-28 Completed University of 00:00:00 [facility] Branch HPV9 2022-03-28 Completed University of 00:00:00 [facility] Branch HPV9 2022-03-28 Completed University of 00:00:00 [facility] Branch HPV9 2022-03-28 Completed University of 00:00:00 [facility] Branch HPV9 2022-03-28 Completed University of 00:00:00 [facility] Branch HPV9 2022-03-28 Completed University of 00:00:00 [facility] Branch HPV9 2022-03-28 Completed University of 00:00:00 [facility] Influenza Virus 2022-02-22 Completed Universit y of [...] and ABX Branch Free 6 MO-64 YRS (FLUCELVAX) Influenza Virus 2022-02-22 Completed Universit y of Vaccine [facility] IM, 00:00:00 [place] [facility] dical Preserv and ABX Branch Free 6 MO-64 YRS (FLUCELVAX) Influenza Virus 2022-02-22 Completed Universit y of [...] YRS HPV9 2021-12-30 Completed University of 00:00:00 [facility] HPV9 2021-12-30 Completed University of 00:00:00 [facility] HPV9 2021-12-30 Completed University of 00:00:00 [facility] HPV9 2021-12-30 Completed University of 00:00:00 [facility] HPV9 2021-12-30 Completed University of 00:00:00 [facility] HPV9 2021-12-30 Completed University of 00:00:00 [facility] HPV9 2021-12-30 Completed University of 00:00:00 [facility] HPV9 2021-12-30 Completed University of 00:00:00 [place] [...] Branch HPV9 2021-12-30 Completed University of 00:00:00 [facility] Branch HPV9 2021-12-30 Completed University of 00:00:00 [place] [facility] HPV9 2021-12-30 Completed University of 00:00:00 [place] [facility] HPV9 2021-12-30 Completed University of 00:00:00 [facility] Branch HPV9 2021-12-30 Completed University of 00:00:00 [facility] Branch HPV9 2021-12-30 Completed University of 00:00:00 [facility] Branch HPV9 2021-12-30 Completed University of 00:00:00 [facility] Branch HPV9 2021-12-30 Completed University of 00:00:00 [facility] Branch HPV9 2021-12-30 Completed University of 00:00:00 [place] [facility] HPV9 2021-12-30 Completed University of 00:00:00 [place] [facility] HPV9 2021-12-30 Completed University of 00:00:00 [place] [facility] HPV9 2021-12-30 Completed University of 00:00:00 [place] [facility] HPV9 2021-12-30 Completed University of 00:00:00 [place] [facility] HPV9 2021-12-30 Completed University of 00:00:00 [facility] Branch HPV9 2021-12-30 Completed University of 00:00:00 [...] Branch HPV9 2021-12-30 Completed University of 00:00:00 [facility] Branch HPV9 2021-12-30 Completed University of 00:00:00 [place] [facility] HPV9 2021-12-30 Completed University of 00:00:00 [facility] Branch HPV9 2021-12-30 Completed University of 00:00:00 [facility] Branch HPV9 2021-12-30 Completed University of 00:00:00 [place] [facility] HPV9 2021-12-30 Completed University of 00:00:00 [place] [facility] HPV9 2021-12-30 Completed University of 00:00:00 [facility] Branch HPV9 2021-12-30 Completed University of 00:00:00 [place] [facility] HPV9 2021-12-30 Completed University of 00:00:00 [place] [facility] HPV9 2021-12-30 Completed University of 00:00:00 [place] [facility] HPV9 2021-12-30 Completed University of 00:00:00 [place] [facility] HPV9 2021-12-30 Completed University of 00:00:00 [place] [facility] HPV9 2021-12-30 Completed University of 00:00:00 [facility] HPV9 2021-12-30 Completed University of 00:00:00 [facility] Branch HPV9 2021-12-30 Completed University of 00:00: [facility] HPV9 2021-12-30 Completed University of 00:00:00 [facility] Branch HPV9 2021-12-30 Completed University of 00:00:00 [facility] Branch HPV9 2021-12-30 Completed University of 00:00:00 [facility] Branch HPV9 2021-12-30 Completed University of 00:00:00 [facility] Branch HPV9 2021-12-30 Completed University of 00:00:00 [facility] HPV9 2021-12-30 Completed University of 00:00:00 [facility] SARS-COV-2 COVID-19 2020-09-17 Completed Unive rsity of VACCINE - (MODERNA) 00:00:00 [facility] SARS-COV-2 COVID-19 2020-09-17 Completed Unive rsity of VACCINE - (MODERNA) 00:00:00 [facility] SARS-COV-2 COVID-19 2020-09-17 Completed Unive rsity of VACCINE - (MODERNA) 00:00:00 [facility] SARS-COV-2 COVID-19 2020-09-17 Completed Unive rsity of VACCINE - (MODERNA) 00:00:00 [facility] SARS-COV-2 COVID-19 2020-09-17 Completed Unive rsity of VACCINE - (MODERNA) 00:00:00 [facility] SARS-COV-2 COVID-19 2020-09-17 Completed Unive rsity of VACCINE - (MODERNA) 00:00:00 [facility] SARS-COV-2 COVID-19 2020-09-17 Completed Unive rsity of VACCINE - (MODERNA) 00:00:00 [facility] SARS-COV-2 COVID-19 2020-09-17 Completed Unive rsity of VACCINE - (MODERNA) 00:00:00 [facility] SARS-COV-2 COVID-19 2020-09-17 Completed Unive rsity of VACCINE - (MODERNA) 00:00:00 [facility] SARS-COV-2 COVID-19 2020-09-17 Completed Unive rsity of VACCINE - (MODERNA) 00:00:00 [facility] SARS-COV-2 COVID-19 2020-09-17 Completed Unive rsity of VACCINE - (MODERNA) 00:00:00 [facility] Branch SARS-COV-2 COVID-19 2020-09-17 Completed Unive rsity of VACCINE - (MODERNA) 00:00:00 [facility] SARS-COV-2 COVID-19 2020-09-17 Completed Unive rsity of VACCINE - (MODERNA) 00:00:00 [facility] Branch SARS-COV-2 COVID-19 2020-09-17 Completed Unive rsity of VACCINE - (MODERNA) 00:00:00 [facility] SARS-COV-2 COVID-19 2020-09-17 Completed Unive rsity of VACCINE - (MODERNA) 00:00:00 [facility] SARS-COV-2 COVID-19 2020-09-17 Completed Unive rsity of VACCINE - (MODERNA) 00:00:00 [facility] SARS-COV-2 COVID-19 2020-09-17 Completed Unive rsity of VACCINE - (MODERNA) 00:00:00 [facility] SARS-COV-2 COVID-19 2020-09-17 Completed Unive rsity of VACCINE - (MODERNA) 00:00:00 [facility] SARS-COV-2 COVID-19 2020-09-17 Completed Unive rsity of VACCINE - (MODERNA) 00:00:00 [facility] SARS-COV-2 COVID-19 2020-09-17 Completed Unive rsity of VACCINE - (MODERNA) 00:00:00 [facility] Branch SARS-COV-2 COVID-19 2020-09-17 Completed Unive rsity of VACCINE - (MODERNA) 00:00:00 [facility] SARS-COV-2 COVID-19 2020-09-17 Completed Unive rsity of VACCINE - (MODERNA) 00:00:00 [facility] SARS-COV-2 COVID-19 2020-09-17 Completed Unive rsity of VACCINE - (MODERNA) 00:00:00 [facility] SARS-COV-2 COVID-19 2020-09-17 Completed Unive rsity of VACCINE - (MODERNA) 00:00:00 [facility] SARS-COV-2 COVID-19 2020-09-17 Completed Unive rsity of VACCINE - (MODERNA) 00:00:00 [facility] SARS-COV-2 COVID-19 2020-09-17 Completed Unive rsity of VACCINE - (MODERNA) 00:00:00 [facility] SARS-COV-2 COVID-19 2020-09-17 Completed Unive rsity of VACCINE - (MODERNA) 00:00:00 [facility] SARS-COV-2 COVID-19 2020-09-17 Completed Unive rsity of VACCINE - (MODERNA) 00:00:00 [facility] SARS-COV-2 COVID-19 2020-09-17 Completed Unive rsity of VACCINE - (MODERNA) 00:00:00 [facility] SARS-COV-2 COVID-19 2020-09-17 Completed Unive rsity of VACCINE - (MODERNA) 00:00:00 [facility] SARS-COV-2 COVID-19 2020-09-17 Completed Unive rsity of VACCINE - (MODERNA) 00:00:00 [facility] SARS-COV-2 COVID-19 2020-09-17 Completed Unive rsity of VACCINE - (MODERNA) 00:00:00 [facility] SARS-COV-2 COVID-19 2020-09-17 Completed Unive rsity of VACCINE - (MODERNA) 00:00:00 [facility] SARS-COV-2 COVID-19 2020-09-17 Completed Unive rsity of VACCINE - (MODERNA) 00:00:00 [facility] SARS-COV-2 COVID-19 2020-09-17 Completed Unive rsity of VACCINE - (MODERNA) 00:00:00 [facility] SARS-COV-2 COVID-19 2020-09-17 Completed [facility] VACCINE - (MODERNA) 00:00:00 [facility] SARS-COV-2 COVID-19 2020-09-17 Completed [facility] VACCINE - (MODERNA) 00:00:00 [facility] SARS-COV-2 COVID-19 2020-09-17 Completed [facility] of VACCINE - (MODERNA) 00:00:00 [facility] SARS-COV-2 COVID-19 2020-09-17 Completed [facility] of VACCINE - (MODERNA) 00:00:00 [facility] SARS-COV-2 COVID-19 2020-09-17 Completed [facility] of VACCINE - (MODERNA) 00:00:00 [facility] SARS-COV-2 COVID-19 2020-09-17 Completed [facility] of VACCINE - (MODERNA) 00:00:00 [facility] SARS-COV-2 COVID-19 2020-09-17 Completed [facility] of VACCINE - (MODERNA) 00:00:00 [facility] SARS-COV-2 COVID-19 2020-09-17 Completed [facility] of VACCINE - (MODERNA) 00:00:00 [facility] SARS-COV-2 COVID-19 2020-09-17 Completed [facility] of VACCINE - (MODERNA) 00:00:00 [facility] SARS-COV-2 COVID-19 2020-09-17 Completed [facility] of VACCINE - (MODERNA) 00:00:00 [facility] SARS-COV-2 COVID-19 2020-09-17 Completed [facility] of VACCINE - (MODERNA) 00:00:00 [facility] SARS-COV-2 COVID-19 2020-09-17 Completed [facility] of VACCINE - (MODERNA) 00:00:00 [facility] SARS-COV-2 COVID-19 2020-09-17 Completed [facility] of VACCINE - (MODERNA) 00:00:00 [facility] SARS-COV-2 COVID-19 2020-09-17 Completed [facility] of VACCINE - (MODERNA) 00:00:00 [facility] SARS-COV-2 COVID-19 2020-09-17 Completed [facility] of VACCINE - (MODERNA) 00:00:00 [facility] SARS-COV-2 COVID-19 2020-09-17 Completed [facility] of VACCINE - (MODERNA) 00:00:00 [facility] SARS-COV-2 COVID-19 2020-09-17 Completed [facility] of VACCINE - (MODERNA) 00:00:00 [facility] SARS-COV-2 COVID-19 2020-09-17 Completed [facility] of VACCINE - (MODERNA) 00:00:00 [facility] SARS-COV-2 COVID-19 2020-09-17 Completed [facility] of VACCINE - (MODERNA) 00:00:00 [facility] SARS-COV-2 COVID-19 2020-09-17 Completed [facility] of VACCINE - (MODERNA) 00:00:00 [facility] SARS-COV-2 COVID-19 2020-09-17 Completed [facility] of VACCINE - (MODERNA) 00:00:00 [facility] SARS-COV-2 COVID-19 2020-09-17 Completed [facility] of VACCINE - (MODERNA) 00:00:00 [facility] SARS-COV-2 COVID-19 2020-09-17 Completed [facility] of VACCINE - (MODERNA) 00:00:00 [facility] SARS-COV-2 COVID-19 2020-09-17 Completed [facility] of VACCINE - (MODERNA) 00:00:00 [facility] SARS-COV-2 COVID-19 2020-09-17 Completed [facility] of VACCINE - (MODERNA) 00:00:00 [facility] SARS-COV-2 COVID-19 2020-09-17 Completed [facility] of VACCINE - (MODERNA) 00:00:00 [facility] SARS-COV-2 COVID-19 2020-09-17 Completed [facility] of VACCINE - (MODERNA) 00:00:00 [facility] SARS-COV-2 COVID-19 2020-09-17 Completed [facility] of VACCINE - (MODERNA) 00:00:00 [facility] SARS-COV-2 COVID-19 2020-09-17 Completed [facility] of VACCINE - (MODERNA) 00:00:00 [facility] SARS-COV-2 COVID-19 2020-08-07 Completed [facility] of VACCINE - (MODERNA) 00:00:00 [facility] SARS-COV-2 COVID-19 2020-08-07 Completed [facility] of VACCINE - (MODERNA) 00:00:00 [facility] SARS-COV-2 COVID-19 2020-08-07 Completed [facility] of VACCINE - (MODERNA) 00:00:00 [facility] SARS-COV-2 COVID-19 2020-08-07 Completed [facility] of VACCINE - (MODERNA) 00:00:00 [facility] SARS-COV-2 COVID-19 2020-08-07 Completed [facility] of VACCINE - (MODERNA) 00:00:00 [facility] SARS-COV-2 COVID-19 2020-08-07 Completed [facility] of VACCINE - (MODERNA) 00:00:00 [facility] SARS-COV-2 COVID-19 2020-08-07 Completed [facility] of VACCINE - (MODERNA) 00:00:00 [facility] SARS-COV-2 COVID-19 2020-08-07 Completed [facility] of VACCINE - (MODERNA) 00:00:00 [facility] SARS-COV-2 COVID-19 2020-08-07 Completed [facility] of VACCINE - (MODERNA) 00:00:00 [facility] SARS-COV-2 COVID-19 2020-08-07 Completed [facility] of VACCINE - (MODERNA) 00:00:00 [facility] SARS-COV-2 COVID-19 2020-08-07 Completed [facility] of VACCINE - (MODERNA) 00:00:00 [facility] SARS-COV-2 COVID-19 2020-08-07 Completed [facility] of VACCINE - (MODERNA) 00:00:00 [facility] SARS-COV-2 COVID-19 2020-08-07 Completed [facility] of VACCINE - (MODERNA) 00:00:00 [facility] SARS-COV-2 COVID-19 2020-08-07 Completed [facility] of VACCINE - (MODERNA) 00:00:00 [facility] SARS-COV-2 COVID-19 2020-08-07 Completed [facility] VACCINE - (MODERNA) 00:00:00 [facility] SARS-COV-2 COVID-19 2020-08-07 Completed [facility] VACCINE - (MODERNA) 00:00:00 [facility] SARS-COV-2 COVID-19 2020-08-07 Completed [facility] of VACCINE - (MODERNA) 00:00:00 [facility] SARS-COV-2 COVID-19 2020-08-07 Completed [facility] of VACCINE - (MODERNA) 00:00:00 [facility] SARS-COV-2 COVID-19 2020-08-07 Completed [facility] VACCINE - (MODERNA) 00:00:00 [facility] SARS-COV-2 COVID-19 2020-08-07 Completed [facility] of VACCINE - (MODERNA) 00:00:00 [facility] SARS-COV-2 COVID-19 2020-08-07 Completed [facility] VACCINE - (MODERNA) 00:00:00 [facility] SARS-COV-2 COVID-19 2020-08-07 Completed [facility] VACCINE - (MODERNA) 00:00:00 [facility] SARS-COV-2 COVID-19 2020-08-07 Completed [facility] VACCINE - (MODERNA) 00:00:00 [facility] SARS-COV-2 COVID-19 2020-08-07 Completed [facility] of VACCINE - (MODERNA) 00:00:00 [facility] SARS-COV-2 COVID-19 2020-08-07 Completed [facility] of VACCINE - (MODERNA) 00:00:00 [facility] SARS-COV-2 COVID-19 2020-08-07 Completed [facility] VACCINE - (MODERNA) 00:00:00 [facility] SARS-COV-2 COVID-19 2020-08-07 Completed [facility] VACCINE - (MODERNA) 00:00:00 [facility] SARS-COV-2 COVID-19 2020-08-07 Completed [facility] VACCINE - (MODERNA) 00:00:00 [facility] SARS-COV-2 COVID-19 2020-08-07 Completed [facility] of VACCINE - (MODERNA) 00:00:00 [facility] SARS-COV-2 COVID-19 2020-08-07 Completed [facility] of VACCINE - (MODERNA) 00:00:00 [facility] SARS-COV-2 COVID-19 2020-08-07 Completed [facility] VACCINE - (MODERNA) 00:00:00 [facility] SARS-COV-2 COVID-19 2020-08-07 Completed [facility] VACCINE - (MODERNA) 00:00:00 [facility] SARS-COV-2 COVID-19 2020-08-07 Completed [facility] VACCINE - (MODERNA) 00:00:00 [facility] SARS-COV-2 COVID-19 2020-08-07 Completed [facility] VACCINE - (MODERNA) 00:00:00 [facility] SARS-COV-2 COVID-19 2020-08-07 Completed [facility] of VACCINE - (MODERNA) 00:00:00 [facility] SARS-COV-2 COVID-19 2020-08-07 Completed [facility] VACCINE - (MODERNA) 00:00:00 [facility] SARS-COV-2 COVID-19 2020-08-07 Completed [facility] of VACCINE - (MODERNA) 00:00:00 [facility] SARS-COV-2 COVID-19 2020-08-07 Completed [facility] VACCINE - (MODERNA) 00:00:00 [facility] SARS-COV-2 COVID-19 2020-08-07 Completed [facility] of VACCINE - (MODERNA) 00:00:00 [facility] SARS-COV-2 COVID-19 2020-08-07 Completed [facility] VACCINE - (MODERNA) 00:00:00 [facility] SARS-COV-2 COVID-19 2020-08-07 Completed [facility] VACCINE - (MODERNA) 00:00:00 [facility] SARS-COV-2 COVID-19 2020-08-07 Completed [facility] VACCINE - (MODERNA) 00:00:00 [facility] SARS-COV-2 COVID-19 2020-08-07 Completed [facility] of VACCINE - (MODERNA) 00:00:00 [facility] SARS-COV-2 COVID-19 2020-08-07 Completed [facility] VACCINE - (MODERNA) 00:00:00 [facility] SARS-COV-2 COVID-19 2020-08-07 Completed [facility] VACCINE - (MODERNA) 00:00:00 [facility] SARS-COV-2 COVID-19 2020-08-07 Completed [facility] VACCINE - (MODERNA) 00:00:00 [facility] SARS-COV-2 COVID-19 2020-08-07 Completed [facility] VACCINE - (MODERNA) 00:00:00 [facility] SARS-COV-2 COVID-19 2020-08-07 Completed [facility] VACCINE - (MODERNA) 00:00:00 [facility] SARS-COV-2 COVID-19 2020-08-07 Completed [facility] VACCINE - (MODERNA) 00:00:00 [facility] SARS-COV-2 COVID-19 2020-08-07 Completed [facility] VACCINE - (MODERNA) 00:00:00 [facility] SARS-COV-2 COVID-19 2020-08-07 Completed [facility] VACCINE - (MODERNA) 00:00:00 [facility] SARS-COV-2 COVID-19 2020-08-07 Completed [facility] VACCINE - (MODERNA) 00:00:00 [facility] SARS-COV-2 COVID-19 2020-08-07 Completed [facility] VACCINE - (MODERNA) 00:00:00 [facility] SARS-COV-2 COVID-19 2020-08-07 Completed [facility] VACCINE - (MODERNA) 00:00:00 [facility] SARS-COV-2 COVID-19 2020-08-07 Completed [facility] VACCINE - (MODERNA) 00:00:00 [facility] SARS-COV-2 COVID-19 2020-08-07 Completed [facility] VACCINE - (MODERNA) 00:00:00 [facility] SARS-COV-2 COVID-19 2020-08-07 Completed [facility] of VACCINE - (MODERNA) 00:00:00 [facility] SARS-COV-2 COVID-19 2020-08-07 Completed [facility] of VACCINE - (MODERNA) 00:00:00 [facility] SARS-COV-2 COVID-19 2020-08-07 Completed [facility] VACCINE - (MODERNA) 00:00:00 [facility] SARS-COV-2 COVID-19 2020-08-07 Completed [facility] VACCINE - (MODERNA) 00:00:00 [facility] SARS-COV-2 COVID-19 2020-08-07 Completed [facility] VACCINE - (MODERNA) 00:00:00 [facility] SARS-COV-2 COVID-19 2020-08-07 Completed [facility] VACCINE - (MODERNA) 00:00:00 [facility] SARS-COV-2 COVID-19 2020-08-07 Completed [facility] VACCINE - (MODERNA) 00:00:00 [facility] SARS-COV-2 COVID-19 2020-08-07 Completed [facility] VACCINE - (MODERNA) 00:00:00 [facility] SARS-COV-2 COVID-19 2020-06-13 Completed [facility] [...] [facility] SARS-COV-2 COVID-19 2020-05-30 Completed [facility] MODERNA 12+ YRS 00:00:00 [facility] SARS-COV-2 COVID-19 2020-05-30 Completed [facility] MODERNA 12+ YRS 00[facility]00:00 [facility] Vital Signs Vital Name Observation Time Observation Value Comments Source Systolic blood 2022-12-21 14:21:00 103 mm[Hg] [facility] Diastolic blood 2022-12-21 14:21:00 58 mm[Hg] [facility] Heart rate 2022-12-21 14:21:00 80 /min [facility] Body temperature 2022-12-21 14:21:00 36.56 Tiffanie [facility] Respiratory rate 2022-12-21 14:21:00 20 /min [facility] Body height 2022-12-21 14:21:00 165.1 cm [facility] Body weight 2022-12-21 14:21:00 88.86 kg [facility] BMI 2022-12-21 14:21:00 32.60 kg/m2 [facility] Systolic blood 2022-12-12 19:09:00 110 mm[Hg] [facility] Diastolic blood 2022-12-12 19:09:00 62 mm[Hg] [facility] Heart rate 2022-12-12 19:09:00 84 /min [facility] Body temperature 2022-12-12 19:09:00 36 T[place]anie [facility] Respiratory rate 2022-12-12 19:09:00 18 /min [facility] Body height 2022-12-12 19:09:00 165.1 cm [facility] Body weight 2022-12-12 19:09:00 88.587 kg [facility] BMI 2022-12-12 19:09:00 32.50 kg/m2 [facility] Systolic blood 2022-12-07 15:05:00 120 mm[Hg] [facility] Diastolic blood 2022-12-07 15:05:00 64 mm[Hg] [facility] Heart rate 2022-12-07 15:05:00 85 /min [facility] Body temperature 2022-12-07 15:05:00 36.33 [place] [facility] Respiratory rate 2022-12-07 15:05:00 20 /min [facility] Body height 2022-12-07 15:05:00 165.1 cm [facility] Body weight 2022-12-07 15:05:00 89.585 kg [facility] BMI 2022-12-07 15:05:00 32.87 kg/m2 [facility] Systolic blood 2022-11-16 14:49:00 126 mm[Hg] [facility] Diastolic blood 2022-11-16 14:49:00 67 mm[Hg] [facility] Heart rate 2022-11-16 14:49:00 91 /min [facility] Body temperature 2022-11-16 14:49:00 35.72 [place] [facility] Respiratory rate 2022-11-16 14:49:00 18 /min [facility] Body height 2022-11-16 14:49:00 165.1 cm [facility] Body weight 2022-11-16 14:49:00 86.546 kg [facility] BMI 2022-11-16 14:49:00 31.75 kg/m2 [facility] Systolic blood 2022-10-26 20:50:00 114 mm[Hg] [facility] Diastolic blood 2022-10-26 20:50:00 62 mm[Hg] [facility] Heart rate 2022-10-26 20:50:00 75 [...] 20:35:00 71 mm[Hg] [facility] Heart rate 2022-09-18 20:35:00 78 [...] 60 /min [facility] Body temperature 2022-07-24 18:20:00 36.28 Tiffanie [facility] Respiratory rate 2022-07-24 18:20:00 18 /min [facility] Body height 2022-07-24 18:20:00 165.1 cm [facility] Body weight 2022-07-24 18:20:00 77.021 kg [facility] BMI 2022-07-24 18:20:00 28.26 kg/m2 [facility] Systolic blood 2022-04-11 22:15:00 120 mm[Hg] [facility] pressure [facility] Diastolic blood 2022-04-11 22:15:00 73 mm[Hg] [facility] pressure [facility] Heart rate 2022-04-11 22:15:00 68 /min [facility] Body height 2022-04-11 22:15:00 167.6 cm [facility] Body weight 2022-04-11 22:15:00 81.647 kg [facility] BMI 2022-04-11 22:15:00 29.05 kg/m2 [facility] Oxygen saturation in 2022-04-11 22:15:00 99 /min [facility] Arterial blood by [facility] Pulse oxim[facility] Branch Systolic blood 2022-03-28 21:22:00 116 mm[Hg] [facility] Diastolic blood 2022-03-28 21:22:00 71 mm[Hg] [facility] pressure [facility] Heart rate 2022-03-28 21:22:00 70 /min [facility] Body temperature 2022-03-28 21:22:00 36.83 Tiffanie [facility] Respiratory rate 2022-03-28 21:22:00 16 /min [facility] Body height 2022-03-28 21:22:00 162.6 cm [facility] Body weight 2022-03-28 21:22:00 77.656 kg [facility] BMI 2022-03-28 21:22:00 29.39 kg/m2 [facility] Oxygen saturation in 2022-03-28 21:22:00 99 /min [facility] Arterial blood by [facility] senait Pulse oxim[facility] Branch Systolic blood 2022-03-27 16:40:00 116 mm[Hg] [facility] Diastolic blood 2022-03-27 16:40:00 69 mm[Hg] [facility] Heart rate 2022-03-27 16:40:00 74 /min [facility] Body temperature 2022-03-27 16:40:00 37.11 [place] [facility] Respiratory rate 2022-03-27 16:40:00 18 /min [facility] Body height 2022-03-27 16:40:00 162.6 cm [facility] Body weight 2022-03-27 16:40:00 77.565 kg [facility] BMI 2022-03-27 16:40:00 29.35 kg/m2 [facility] Systolic blood 2022-03-24 00:54:08 122 mm[Hg] [facility] Diastolic blood 2022-03-24 00:54:08 77 mm[Hg] [facility] Heart rate 2022-03-24 00:54:08 85 /min [facility] Body temperature 2022-03-24 00:54:08 36.39 [place] [facility] Respiratory rate 2022-03-24 00:54:08 18 /min [facility] Oxygen saturation in 2022-03-24 00:54:08 100 /min [facility] Arterial blood by [facility] senait P[facility] Body weight 2022-03-23 19:30:00 81.647 kg [facility] BMI 2022-03-23 19:30:00 29.95 kg/m2 [facility] Systolic blood 2022-03-23 18:51:00 112 mm[Hg] [facility] Diastolic blood 2022-03-23 18:51:00 70 mm[Hg] [facility] Heart rate 2022-03-23 18:51:00 2 /min [facility] Body temperature 2022-03-23 18:51:00 37.22 T[place] [facility] Respiratory rate 2022-03-23 18:51:00 17 /min [facility] Body weight 2022-03-23 18:51:00 72.576 kg [facility] BMI 2022-03-23 18:51:00 26.63 kg/m2 [facility] Oxygen saturation in 2022-03-23 18:51:00 100 /min [facility] Arterial blood by [facility] Pulse oxim[facility] Branch Systolic blood 2022-03-15 20:07:00 108 mm[Hg] [facility] Diastolic blood 2022-03-15 20:07:00 69 mm[Hg] [facility] Heart rate 2022-03-15 20:07:00 73 /min [facility] Body temperature 2022-03-15 20:07:00 37.06 T[place]anie [facility] [...] 20:48:00 113 mm[Hg] [facility] Diastolic blood 2022-01-24 20:48:00 69 mm[Hg] [facility] Heart rate 2022-01-24 20:48:00 74 /min [facility] Body temperature 2022-01-24 20:48:00 36.72 [place] [facility] Respiratory rate 2022-01-24 20:48:00 18 /min [facility] Body height 2022-01-24 20:48:00 165.1 cm [facility] Body weight 2022-01-24 20:48:00 75.751 kg [facility] BMI 2022-01-24 20:48:00 27.79 kg/m2 [facility] Systolic blood 2022-01-06 18:28:00 110 mm[Hg] [facility] Diastolic blood 2022-01-06 18:28:00 69 mm[Hg] [facility] Heart rate 2022-01-06 18:28:00 74 /min [facility] Body temperature 2022-01-06 18:28:00 36.89 T[place]anie [facility] Respiratory rate 2022-01-06 18:28:00 18 /min [facility] Body height 2022-01-06 18:28:00 160 cm [facility] Body weight 2022-01-06 18:28:00 75.841 kg [facility] BMI 2022-01-06 18:28:00 29.62 kg/m2 [facility] Systolic blood 2021-12-30 15:10:00 116 mm[Hg] [facility] Diastolic blood 2021-12-30 15:10:00 79 mm[Hg] [facility] 2021-12-30 15:10:00 78 /min [facility] Body temperature 2021-12-30 15:10:00 36.78 Tiffanie [facility] Respiratory rate 2021-12-30 15:10:00 18 /min [facility] 2021-12-30 15:10:00 160 cm [facility] Body weight 2021-12-30 15:10:00 75.841 kg [facility] BMI 2021-12-30 15:10:00 29.62 kg/m2 [facility] Procedures Procedure Date / Time Performing Clinician Source Performed HB ABO GROUPING 2022-12-21 15:25:00 Shanthi Bauer [facility] SYPHILIS IGG/IGM 2022-12-21 15:25:00 Shanhti Bauer [facility] TDAP VACCINE, >11 YRS, 2022-12-21 14:48:46 Shanthi Bauer [facility] POCT URINALYSIS 2022-12-21 00:00:00 Shanthi Bauer [facility] SECOND AND THIRD 2022-12-12 20:43:00 Shanthi Bauer [facility] TRIMESTER ULTRASOUND Medical [facility] POCT URINALYSIS 2022-12-12 19:12:00 Shanthi Bauer [facility] POCT URINALYSIS 2022-12-07 00:00:00 Shanthi Bauer [facility] POCT URINALYSIS 2022-11-16 14:50:00 Shanthi Bauer [facility] MISCELLANEOUS SENDOUT 2022-11-10 05:01:00 Doctor Unassigned, No [facility] TEST Name Medical Branch SECOND AND THIRD 2022-10-31 20:25:00 Shanthi Bauer [facility] TRIMESTER ULTRASOUND Medical [facility] SECOND AND THIRD 2022-10-31 20:20:00 Shanthi Bauer [facility] TRIMESTER ULTRASOUND Medical [facility] POCT URINALYSIS 2022-10-26 20:52:00 Shanthi Bauer [facility] POCT URINALYSIS 2022-09-18 20:36:00 Shanthi Bauer [facility] POCT URINALYSIS 2022-08-21 20:21:00 Shanthi Bauer [facility] FLU VACC (), 6 2022-07-24 19:22:36 Shanthi Bauer [facility] MO-63 YRS, .5ML, IM, [facility] QUAD (FLUCELVAX) POCT URINALYSIS W/O 2022-07-24 18:12:00 Shanthi Bauer [facility] SPECIFIC GRAVITY [facility] POCT TEST 2022-07-24 18:11:00 Shanthi Bauer [facility] REPORT OF 2022-07-24 05:01:00 [facility]igned[facility]ENEFITS 2022-07-10 14:33:07 Doctor Unassigned, No [facility] OB TRANSVAGINAL 2022-03-28 22:39:19 Adum, Rosibel [facility] GARDASIL 9 (HPV 9V) 2022-03-28 22:12:39 Adum, Rosibel [facility] VACCINE [facility] ULTR[facility] 2022-03-28 06:01:00 [facility] PH[facility] ORDERS 2022-03-27 06:01:00 Doctor [facility]igned, No [facility] US FIRST 2022-03-24 20:40:00 Amena [facility]ourt [facility] TRIMESTER LESS THAN 14 [facility] ranch WEEKS WITH TRANSVAGINAL CT CHEST PULMONARY 2022-03-23 22:38:10 Susan Martinez [facility] ANGIOGRAM Medical Branch D-DIMER 2022-03-23 20:59:[address] [facility] MAGNESIUM 2022-03-23 20:20:00 Susan Martinez [facility] TROPONIN I 2022-03-23 20:20:00 Susan Martinez [facility] COMP. METABOLIC PANEL 2022-03-23 20:20:00 Susan Martinez [facility] ([id number]) Medical Branch CBC WITH DIFF 2022-03-23 20:20:00 Michelle [facility] URINALYSIS 2022-03-23 20:20:00 Michelle [facility] N-TERMINAL PRO-BNP 2022-03-23 20:20:00 Susan Martinez [facility] CONSENT/REFUSAL FOR 2022-03-23 19:04:36 Doctor [facility]ass[facility], [facility] POCT URINALYSIS W/O 2022-03-15 20:09:00 Amena Betancourt [facility] US FIRST 2022-03-03 20:49:57 Amena Betancourt [facility] TRIMESTER LESS THAN 14 Medical B ranch WEEKS WITH TRANSVAGINAL GC & CHLAMYDIA AMPLIFIED 2022-02-22 22:34:00 Amena Betancourt [facility] TRICHOMONAS AMPLIFIED 2022-02-22 22:34:00 [facility] FLU VACC ([id number]), 6 2022-02-22 22:18:33 Amena Betancourt [facility] MO-63 YRS, .5ML, IM, Medical Bra [facility] QUAD (FLUCELVAX) POCT URINALYSIS W/O 2022-02-22 00:00:00 Amena Betancourt [facility] ASSIGNMENT OF BENEFITS 2022-02-18 14:49:18 Doctor Unassigned, [facility] POCT TEST 2022-01-06 18:43:00 Jareth Olmedo [facility] GARDASIL 9 (HPV 9V) 2021-12-30 16:46:05 Jareth Olmedo [facility] POCT TEST 2021-12-30 15:29:00 Jareth Olmedo [facility] Encounters Start End Encounter Admission Attending Care Care Encounter Source Date/Time Date/Time Type Type Clinicians Facility Department ID 2021-07-09 Outpatient [facility] [id number] [place] 00:38:59 [facility] 2022-12-21 2022-12-21 Outpatient R LIZETTE [facility] [id number] Univers 09:45:00 10:30:23 SHANTHI ity o f [facility] 2022-12-21 2022-12-21 [facility] 1.2.192.766 [id number] Univers 09:45:00 10:30:23 Shanthi Freeman BED AND BREAKFAST COOK 350.1.13.10 ity of Visit REGIONAL 4.2.7.2.686 Anil as MATERNAL [id number] Med ical & CHILD [address] [place] [address] 2022-12-13 2022-12-13 Abstract Lizette, [facility] 1.2.840.114 [id number] Univers 00:00:00 00:00:00 Shanthi Freeman BED AND BREAKFAST COOK 350.1.13.10 ity of REGIONAL 4.2.7.2.686 Anil as MATERNAL [id number] Med ical & CHILD [address] [place] [address] 2022-12-12 2022-12-12 Outpatient P ALESHA [facility] [id number] Univers 15:30:00 15:36:22 LISA it y of AVELINO Wilson [facility] 2022-12-12 2022-12-12 Home Health Rn Ultrasound, Ang[facility] 1.2 .840.114 [id number] Univers 15:30:00 15:36:22 Visit Avelino Clayton BED AND BREAKFAST COOK 350.1. 13.10 ity of REGIONAL 4.2.7.2.686 Anil as MATERNAL [id number] [facility] ical & CHILD [address] [facility] 2022-12-12 2022-12-12 Routine Valdemarandrea, [facility] 1.2.378.168 [id number] Univers 14:00:00 14:37:47 Shanthi C BED AND BREAKFAST COOK 350.1.13.10 ity of Visit REGIONAL 4.2.7.2.686 Anil as MATERNAL [id number] [facility] & CHILD [address] [place] [address] 2022-12-12 2022-12-12 Telephone [facility] 1.2.840.114 [id number] Univers 00:00:00 00:00:00 Shanthi C BED AND BREAKFAST COOK 350.1.13.10 ity of [facility] 4.2.7.2.686 Anil as MATERNAL [id number] [address] 2022-12-07 2022-12-07 Outpatient [facility] [id number] Univers 10:30:00 11:43:28 SHANTHI ity o [facility] 2022-12-07 2022-12-07 Routine [facility] 1.2.255.743 [id number] Univers 10:30:00 11:43:28 Shanthi C BED AND BREAKFAST COOK 350.1.13.10 ity of Visit [facility] 4.2.7.2.686 Anil as MATERNAL [id number] [address] 2022-11-17 2022-11-17 Telephone Candido, [facility] 1.2.840.114 [id number] [facility] 00:00:00 00:00:00 Amber SPECIALTY 350.1.13.10 ity of [place] [id number] [address] 2022-11-16 2022-11-16 Outpatient [facility] [id number] Univers 10:30:00 10:36:09 SHANTHI ity o [facility] 2022-11-16 2022-11-16 Routine [facility] 1.2.381.760 [id number] Univers 10:30:00 10:36:09 Shanthi C BED AND BREAKFAST COOK 350.1.13.10 ity of Visit REGIONAL 4.2.7.2.686 Anil as MATERNAL [id number] Med ical & CHILD 107 [facility] 2022-11-10 2022-11-10 Outpatient R JA SALDANA [facility] [id number] Univers 09:45:00 10:30:26 ity of [facility] 2022-11-10 2022-11-10 Telemedici Amber Rey [facility] 1.2.8 40.114 [id number] Univers 09:45:00 10:30:26 ne Visit Ja Saldana BED AND BREAKFAST COOK 350.1.13.10 ity of [facility] 4.2.7.2.686 Anil as MATERNAL [id number] Med ical & CHILD [address] [place] [address] 2022-11-10 2022-11-10 Telephone Lizette [facility] 1.2.840.114 [id number] Univers 00:00:00 00:00:00 Shanthi Freeman BED AND BREAKFAST COOK 350.1.13.10 ity of [facility] 4.2.7.2.686 Anil as MATERNAL [id number] [facility] ical & CHILD [address] [place] [address] 2022-11-10 2022-11-10 Orders Doctor PHILIP 1.2.840.114 [id number] Univers 00:00:00 00:00:00 Only Unassigned, JOYCE 350.1.13.10 ity of [facility] 4.2.7.2.686 Anil as [id number] [address] 2022-11-07 2022-11-07 Abstract [facility] 1.2.840.114 [id number] Univers 00:00:00 00:00:00 Shanthi Freeman BED AND BREAKFAST COOK 350.1.13.10 ity of [facility] 4.2.7.2.686 Anil as MATERNAL [id number] [facility] ical & CHILD [address] [place] [address] 2022-11-07 2022-11-07 Telephone Lizette [facility] 1.2.840.114 [id number] Univers 00:00:00 00:00:00 Shanthi Freeman BED AND BREAKFAST COOK 350.1.13.10 ity of [facility] 4.2.7.2.686 Anil as MATERNAL [id number] [facility] ical & CHILD [address] [place] [address] 2022-10-31 2022-10-31 Outpatient P EDUARDO [facility] [id number] Univers 14:00:00 15:26:34 REYNOLDJIAN it y AVELINO Law [facility] 2022-10-31 2022-10-31 Home Health Rn [facility]tras[facility], [facility] 1.2 .840.114 [id number] Univers 14:00:00 15:26:34 Visit Alesha Agatha Buck BED AND BREAKFAST COOK 350.1. 13.10 ity of REGIONAL 4.2.7.2.686 Anil as MATERNAL [id number] Med ical & CHILD [address] [facility] 2022-10-26 2022-10-26 Outpatient R LIZETTE [facility] [id number] Univers 15:45:00 16:10:05 SHANTHI ity o f [facility] 2022-10-26 2022-10-26 Routine Akinpe, [facility] 1.2.861.694 [id number] Univers 15:45:00 16:10:05 Shanthi C BED AND BREAKFAST COOK 350.1.13.10 ity of Visit REGIONAL 4.2.7.2.686 Anil as MATERNAL [id number] [facility] ical & CHILD [address] [place] [address] 2022-10-20 2022-10-20 Telephone [facility] 1.2.840.114 [id number] Univers 00:00:00 00:00:00 Shanthi C BED AND BREAKFAST COOK 350.1.13.10 ity of REGIONAL 4.2.7.2.686 Anil as MATERNAL [id number] [facility] ical & CHILD [address] [place] [address] 2022-10-19 2022-10-19 Refill Akinsipe, [facility] 1.2.473.378 [id number] Univers 00:00:00 00:00:00 Shanthi C BED AND BREAKFAST COOK 350.1.13.10 ity of REGIONAL 4.2.7.2.686 Anil as MATERNAL [id number] [facility] ical & CHILD [address] [place] [address] 2022-10-18 2022-10-18 Refill Lizette, [facility] 1.2.210.034 [id number] Univers 00:00:00 00:00:00 Shanthi Freeman BED AND BREAKFAST COOK 350.1.13.10 ity of REGIONAL 4.2.7.2.686 Anil as MATERNAL [id number] [facility] & [address] 2022-10-16 2022-10-16 Outpatient R LUCIANO [facility] [id number] Univers 15:15:00 15:15:00 SANIYA joyce [facility] 2022-10-06 2022-10-06 Abstract Lizette [facility] 1.2.840.114 [id number] Univers 00:00:00 00:00:00 Shanthi Freeman BED AND BREAKFAST COOK 350.1.13.10 ity of [facility] 4.2.7.2.686 Anil as MATERNAL [id number] [address] 2022-09-29 2022-09-29 Outpatient P RUSTAM YU [facility] [id number] Univers 15:30:00 16:58:04 RUSTAM YU [facility] 2022-09-29 2022-09-29 Home Health Rn 1, [facility] Us Room UNIVERSIT 1 .2.840.114 [id number] Univers 15:30:00 16:58:[address] [facility] 350.1.13.10 ity of CL[place]2.7.2.[place] [id number] [address] 2022-09-22 2022-09-22 Outpatient P RUSTAM YU [facility] [id number] Univers 15:15:00 15:15:00 RUSTAM YU [facility] 2022-09-18 2022-09-18 Outpatient R LIZETTE [facility] [id number] Univers 15:00:00 16:06:28 SHANTHI canas o f [facility] 2022-09-18 2022-09-18 Routine Saniya Wolf [facility] 1.2.84 0.114 [id number] Univers 15:00:00 16:06:28 Shanthi Bauer BED AND BREAKFAST COOK 350.1.13 .10 ity of Visit REGIONAL 4.2.7.2.686 Anil as MATERNAL [id number] [facility] & CHILD [address] [place] [address] 2022-08-21 2022-08-21 [facility] [id number] Univers 14:45:00 15:43:20 SHANTHI ity o f [facility] 2022-08-21 2022-08-21 Routine [facility] 1.2.533.653 [id number] Univers 14:45:00 15:43:20 Shanthi C BED AND BREAKFAST COOK 350.1.13.10 ity of Visit REGIONAL 4.2.7.2.686 Anil as MATERNAL [id number] [facility] & [address] 2022-08-21 2022-08-21 Outpatient R LIZETTE, [facility] [id number] Univers 10:30:00 10:30:00 SHANTHI canas o f [facility] 2022-08-15 2022-08-15 Abstract [facility] 1.2.840.114 [id number] Univers 00:00:00 00:00:00 Shanthi C BED AND BREAKFAST COOK 350.1.13.10 ity of REGIONAL 4.2.7.2.686 Anil as MATERNAL [id number] [facility] & CHILD [address] [place] [address] 2022-08-14 2022-08-14 Outpatient P BHARATH [facility] [id number] Univers 08:30:00 09:12:30 ALBERTO canas [facility] 2022-08-14 2022-08-14 Home Health Rn Ultrasound, [facility] 1.2 .840.114 [id number] Univers 08:30:00 09:00:00 Visit Alberto Montes BED AND BREAKFAST COOK 350.1.13.10 ity of REGIONAL 4.2.7.2.686 Anil as MATERNAL [id number] [facility] & CHILD [address] [place] [address] 2022-08-09 2022-08-09 Patient [facility] 1.2.408.303 [id number] Univers 00:00:00 00:00:00 Secure Msg Shanthi C BED AND BREAKFAST COOK 350.1.13.10 ity of REGIONAL 4.2.7.2.686 Anil as MATERNAL [id number] [facility] & CHILD [address] [place] [address] 2022-08-03 2022-08-03 Telephone Lizette [facility] 1.2.840.114 10 [id number] Univers 00:00:00 00:00:00 Shanthi C BED AND BREAKFAST COOK 350.1.13.10 ity of REGIONAL 4.2.7.2.686 Anil as MATERNAL [id number] [facility] & CHILD [address] [place] [address] 2022-07-31 2022-07-31 Outpatient R DENITA [facility] [id number] Univers 09:30:00 13:38:09 TERRENCE [facility] 2022-07-31 2022-07-31 Telemedici Faculty, [facility] 1.2.840.114 [id number] Univers 09:30:00 10:00:00 ne Visit Terrence Barron BED AND BREAKFAST COOK 350.1.13. 10 ity of REGIONAL 4.2.7.2.686 Anil as MATERNAL [id number] [facility] & CHILD [address] [place] [address] 2022-07-28 2022-07-28 Telephone [facility] 1.2.840.114 10 [id number] Univers 00:00:00 00:00:00 Shanthi C BED AND BREAKFAST COOK 350.1.13.10 ity of REGIONAL 4.2.7.2.686 Anil as MATERNAL [id number] [facility] & CHILD [address] [place] [address] 2022-07-27 2022-07-27 Outpatient R JO ANN [facility] [id number] Univers 10:15:00 10:15:00 ADILSON [facility] 2022-07-25 2022-07-25 Outpatient R AMENA BETANCOURT [facility] B [id number] Univers 15:30:00 15:30:00 AMENA BETANCOURT [facility] 2022-07-25 2022-07-25 Telephone [facility] 1.2.840.114 10 [id number] Univers 00:00:00 00:00:00 Shanthi C BED AND BREAKFAST COOK 350.1.13.10 ity of REGIONAL 4.2.7.2.686 Anil as MATERNAL [id number] [facility] & CHILD [address] [place] [address] 2022-07-24 2022-07-24 Initial [facility] 1.2.201.074 [id number] Univers 14:00:00 14:45:45 Shanthi C BED AND BREAKFAST COOK 350.1.13.10 ity of Visit [facility] 4.2.7.2.686 Anil as MATERNAL [id number] [facility] ical & CHILD [address] [place] [address] 2022-07-24 2022-07-24 Outpatient R LIZETTE [facility] [id number] Univers 13:30:00 12:53:06 SHANTHI ity o f [facility] 2022-07-24 2022-07-24 Orders Doctor PHILIP 1.2.840.114 [id number] Univers 00:00:00 00:00:00 Only Unassigned, JOYCE 350.1.13.10 ity of [facility] 4.2.7.2.686 Anil as [id number] [facility] [address] 2022-07-14 2022-07-14 Outpatient R AMENA BETANCOURT [facility] B [id number] Univers 16:30:00 16:30:00 AMENA BETANCOURT ity of [facility] 2022-07-14 2022-07-14 Telephone [facility] 1.2.840.11 4 [id number] Univers 00:00:00 00:00:00 Amena SALDANA 350.1.13.10 it y of [place] [id number] [facility] [address] 2022-07-10 2022-07-10 Home Health Rn An, [facility] 1.2.8 40.114 [id number] Univers 09:30:00 09:45:00 Visit Amena Betancourt [facility] 350.1.13. 10 ity of [place].2.[place] [id number] Ak dical NAL [address] [facility] 2022-07-10 2022-07-10 Outpatient R CARLOSHI AMENA [facility] B [id number] Univers 09:30:00 09:30:00 ASIA AMENA canas [facility] 2022-07-10 2022-07-10 Orders Doctor PHILIP 1.2.840.114 [id number] Univers 00:00:00 00:00:00 Only Unassigned, JOYCE 350.1.13.10 ity of [facility] 4.2.7.2.686 Anil as [id number] [address] 2022-07-05 2022-07-05 Outpatient R ASIA AMENA [facility] B [id number] Univers 15:45:00 15:45:00 AMENA BETANCOURT [facility] 2022-06-06 2022-06-06 Telephone [facility] 1.2.840.11 4 [id number] Univers 00:00:00 00:00:00 Amena SALDANA 350.1.13.10 it y of [place] [id number] [facility] [address] 2022-05-18 2022-05-18 Home Health Rn An, [facility] 1.2.8 40.114 [id number] Univers 16:00:00 16:15:00 Visit Amena Betancourt 350.1.13. 10 ity [facility] [place].2.[place] [id number] Ak dical NAL 353 [facility] 2022-05-18 2022-05-18 Outpatient R ASIA AMENA [facility] B [id number] Univers 16:00:00 16:00:00 AMENA BETANCOURT [facility] 2022-04-25 2022-04-25 Telephone [facility] 1.2.840.11 4 [id number] Univers 00:00:00 00:00:00 Amena SALDANA 350.1.13.10 it y of [place] [id number] [address] 2022-04-19 2022-04-19 Outpatient R MECHELLEAMENA ABERNATHY [facility] B [id number] Univers 11:30:00 11:30:00 MECHELLEAMENA ABERNATHY [facility] 2022-04-11 2022-04-11 Office [facility] 1.2.840.114 [id number] Univers 16:30:00 16:30:00 Visit Amena SALDANA 350.1.13.10 it y of [place] [id number] [address] 2022-04-11 2022-04-11 Outpatient R SAVANAOHLLAND WALLERANDRES [facility] B [id number] Univers 16:30:00 16:26:25 CARLOSAMENA DO [facility] 2022-04-11 2022-04-11 Telephone [facility] 1.2.840.114 [id number] Univers 00:00:00 00:00:00 Rosibel L LES 350.1.13.10 i ty of [place] [id number] [address] 2022-04-07 2022-04-07 Outpatient R SAVANAAMENA WALLER [facility] B [id number] Univers 14:30:00 14:30:00 CARLOSAMENA DO [facility] 2022-04-04 2022-04-04 Telephone [facility] 1.2.840.11 4 [id number] Univers 00:00:00 00:00:00 Amena SALDANA 350.1.13.10 it y of [place] [id number] [address] 2022-03-29 2022-03-29 Outpatient R CARLOSHOLLAND DOMATTEAW[facility] [id number] Univers 15:45:00 15:45:00 ASIAHOLLANDANDRES canas [facility] 2022-03-28 2022-03-28 Outpatient R [facility] [id number] Univers 15:00:00 16:28:45 ROSIBEL ity of [facility] 2022-03-28 2022-03-28 [facility] 1.2.342.015 [id number] Univers 15:00:00 16:28:45 Rosibel SALDANA 350.1.13.10 ity of Visit [place] [id number] [address] 2022-03-28 2022-03-28 Orders Doctor PHILIP 1.2.840.114 [id number] Univers 00:00:00 00:00:00 Only Unassigned, JOYCE 350.1.13.10 ity of [facility] 4.2.7.2.686 Anil as [id number] [address] 2022-03-27 2022-03-27 Home Health Rn Lab, Ang - [facility] 1.2.840.1 14 [id number] Univers 11:30:00 11:45:00 Visit Amena Betancourt [facility] 350.1.13.1 0 ity of [facility] 4.2.7.2.686 Anil as REENA?BLEA [id number] [address] MEDICAL OFFICE BUILDING 2022-03-27 2022-03-27 Routine [facility] 1.2.840.114 [id number] Univers 11:15:00 11:15:00 Amena SALADNA 350.1.13.10 i ty of Visit [place] [id number] [address] 2022-03-27 2022-03-27 Outpatient R CARLOSAMENA DO [facility] B [id number] Univers 11:15:00 10:54:35 CARLOSAMENA DO trayjoyce [facility] 2022-03-27 2022-03-27 Orders Doctor PHILIP 1.2.840.114 [id number] Univers 00:00:00 00:00:00 Only Unassigned, JOYCE 350.1.13.10 ity of [facility] 4.2.7.2.686 Anil as [id number] [place] [address] [address] 2022-03-27 2022-03-27 Telephone [facility] 1.2.840.11 4 [id number] Univers 00:00:00 00:00:00 Amena SALDANA 350.1.13.10 it y of WOMEN'S 4.2.7.2.686 [facility] HEALTH [id number] [facility] [address] 2022-03-24 2022-03-24 Outpatient R CARLOSHOLLAND DOANDRES [facility] B [id number] Univers 13:30:16 23:59:00 [facility] ity [facility] 2022-03-24 2022-03-24 [facility] 1.2.840.114 [id number] Univers 13:30:16 23:59:00 Encounter Amena MIRNA 350.1.13.10 ity of [place] 4.2.7.2.686 [facility] [id number] [facility] [address] 2022-03-24 2022-03-24 Telephone [facility] 1.2.840.11 4 [id number] Univers 00:00:00 00:00:00 Amena SALDANA 350.1.13.10 it y of WOMEN'S 4.2.7.2.686 [facility] [id number] [facility] [address] 2022-03-23 2022-03-23 Emergency X MICHELLE, K [facility] ERT [id number] Univers 13:31:00 19:01:00 ity of [facility] 2022-03-23 2022-03-23 Emergency Michelle, K [facility] 1.2.840.114 [id number] Univers 13:31:00 19:01:00 Jeanine BRADLEY 350.1.13.10 i ty [facility] 4.2.7.2.686 [facility] [id number] [facility] [address] 2022-03-23 2022-03-23 Nurse Nurse, [facility] 1.2.840.114 [id number] Univers 13:00:00 13:20:00 Visit Unknown, Attending HEALTH 350.1.13.10 ity of [place] 4.2.7.2.686 Anil as REENA?BLEA [id number] Ak lili [address] MEDICAL OFFICE BUILDING 2022-03-23 2022-03-23 Outpatient R CARLOS [facility] [id number] Univers 13:00:00 12:57:56 SAGAR [facility] 2022-03-23 2022-03-23 Orders Doctor PHILIP 1.2.840.114 [id number] Univers 00:00:00 00:00:00 Only Unassigned, JOYCE 350.1.13.10 ity of [facility] 4.2.7.2.686 Anil as [id number] [address] 2022-03-15 2022-03-15 [facility] [id number] Univers 16:00:00 16:00:00 ROSIBEL [facility] 2022-03-15 2022-03-15 Outpatient R AMENA BETANCOURT [facility] B [id number] Univers 13:45:00 14:37:26 AMENA BETANCOURT [facility] 2022-03-15 2022-03-15 [facility] 1.2.840.114 [id number] Univers 13:45:00 14:37:26 Amena SALDANA 350.1.13.10 i ty of Visit [facility] 4.2.7.2.[address] [facility] [facility] [id number] [address] 2022-03-15 2022-03-15 [facility]patient [facility] [id number] Univers 10:15:00 10:15:00 ROSIBEL [facility] 2022 2022 Telephone [facility] 1.2.840.11 4 [id number] Univers 00:00:00 00:00:00 Amena SALDANA 350.1.13.10 it y [place] [facility] [place] [facility] [id number] [address] 2022-03-09 2022-03-09 Telephone [facility] 1.2.840.11 4 [id number] Univers 00:00:00 00:00:00 Amena SALDANA 350.1.13.10 [place] [id number] [address] 2022-03-07 2022-03-07 Telephone [facility] 1.2.840.11 4 [id number] Univers 00:00:00 00:00:00 Amena SALDANA 350.1.13.10 [place] [id number] [address] 2022-03-07 2022-03-07 [facility] 1.2.840.11 4 [id number] [facility] 00:00:00 00:00:00 Amena SALDANA 350.1.13.10 [place] [id number] [address] 2022-03-06 2022-03-06 Outpatient R AMENA BETANCOURT [facility] B [id number] Univers 00:00:00 00:00:00 AMENA BETANCOURT [facility] 2022-03-06 2022-03-06 [facility] 1.2.840.11 4 [id number] [facility] 00:00:00 00:00:00 [place] 350.1.13.10 [place] [id number] [address] 2022-03-05 2022-03-05 [facility] 1.2.840.114 [id number] Univers 00:00:00 00:00:00 Management Amena SALDANA 350.1.13.10 [place] [id number] [address] 2022-03-03 2022-03-03 Outpatient R AMENA BETANCOURT [facility] B [id number] Univers 14:10:30 23:59:00 AMENA BETANCOURT [facility] 2022-03-03 2022-03-03 [facility] [facility] 1.2.840.114 [id number] Univers 14:00:00 23:59:00 Encounter Amena BRADLEY 350.1.13.10 ity of [facility] [place] [id number] [facility] [address] 2022-02-23 2022-02-23 Case [facility] 1.2.840.114 [id number] Univers 00:00:00 00:00:00 Management Amena SALDANA 350.1.13.10 it[place] [id number] [address] 2022-02-22 2022-02-22 Home Health Rn An, Adc Lab Main [facility] 1.2.8 40.114 [id number] Univers 16:45:00 17:00:00 Visit Amena Betancourt 350.1.13. 10 it[facility] [place] [id number] Ak dical NAL [address] [facility] 2022-02-22 2022-02-22 Outpatient R AMENA BETANCOURT [facility] B [id number] Univers 15:30:00 16:14:30 AMENA BETANCOURT [facility] 2022-02-22 2022-02-22 [facility] 1.2.840.114 [id number] Univers 15:30:00 16:14:30 Amena SALDANA 350.1.13.10 i ty of [place] [id number] [address] 2022-02-20 2022-02-20 Home Health Rn An, Adc Lab Main [facility] 1.2.8 40.114 [id number] Univers 13:15:00 13:30:00 Visit Amena Betancourt 350.1.13. 10 it[facility] [place] [phone] Me dical NAL [address] [place] [address] 2022-02-20 2022-02-20 Outpatient R ASIA AMENA [facility] B [id number] Univers 13:15:00 13:15:00 AMENA BETANCOURT [facility] 2022-02-20 2022-02-20 Patient KOLBY Betancourt 1.2.840.114 [id number] Univers 00:00:00 00:00:00 Secure Msg Amena SALDANA 350.1.13.10 it[place] [id number] [address] 2022-02-20 2022-02-20 Telephone Asia [facility] DANIEL 1.2.840.11 4 [id number] Univers 00:00:00 00:00:00 Amena LES 350.1.13.10 it y [place] [id number] [address] 2022-02-20 2022-02-20 Patient Iris [facility] DANIEL 1.2.927.396 [id number] Univers 00:00:00 00:00:00 Secure Msg Deanne SALDANA 350.1.13.10 ity of [facility]ED[facility]ATR[facility] 4.2.7.2.686 [facility] [id number] [address] 2022-02-18 2022-02-18 Home Health Rn An, Adc Lab Main [facility] 1.2.8 40.114 [id number] Univers 10:00:00 10:15:00 Visit Amena Betancourt 350.1.13. 10 ity of [place] [id number] Ak dical NAL [address] [place] [address] 2022-02-18 2022-02-18 Outpatient R AMENA BETANCOURT [facility] B [id number] Univers 10:00:00 10:00:00 AMENA BETANCOURT [facility] 2022-02-18 2022-02-18 Orders Doctor PALACIOS 1.2.840.114 [id number] Univers 00:00:00 00:00:00 Only Unassigned, JOYCE 350.1.13.10 ity of [facility] 4.2.7.2.686 Anil as [id number] [facility] [address] 2022-02-17 2022-02-17 Patient KOLBY Simmons 1.2.091.335 [id number] Univers 00:00:00 00:00:00 Secure Msmikala SALDANA 350.1.13.10 [place] [id number] [facility] [address] 2022-02-17 2022-02-17 Telephone [facility] 1.2.840.11 4 [id number] Univers 00:00:00 00:00:00 Amena LES 350.1.13.10 it y [place] [id number] [address] 2022-02-08 2022-02-08 Outpatient R AMENA BETANCOURT [facility] B [id number] Univers 00:00:00 00:00:00 AMENA BETANCOURT [facility] 2022-01-24 2022-01-24 Outpatient R AMENA BETANCOURT [facility] B [id number] Univers 15:30:00 16:07:03 AMENA BETANCOURT [facility] 2022-01-24 2022-01-24 Office [facility] 1.2.840.114 [id number] Univers 15:30:00 16:07:03 Visit Amena LES 350.1.13.10 it y [place] [id number] [address] 2022-01-20 2022-01-20 Outpatient R AMENA BETANCOURT [facility] B [id number] Univers 15:15:00 15:15:00 AMENA BETANCOURT [facility] 2022-01-06 2022-01-06 Outpatient R AMENA BETANCOURT [facility] B [id number] Univers 16:00:00 16:00:00 AMENA BETANCOURT ity of [facility] 2022-01-06 2022-01-06 Outpatient R JARETH OLMEDO [facility] [id number] Univers 14:15:00 14:27:31 ity of [facility] 2022-01-06 2022-01-06 Office Jareth Olmedo [facility] 1.2.840.114 [id number] [facility] 14:15:00 14:27:31 Visit MARBLE 350.1.13.10 i ty of [facility] [place] [id number] Ak dical NAL [address] [place] [address] 2022-01-03 2022-01-03 Telephone Jareth Olmedo [facility] 1.2.840.11 4 [id number] [facility] 00:00:00 00:00:00 LES 350.1.13.10 it y [place] [id number] [address] 2021-12-30 2021-12-30 Home Health Rn 2, Adc Lab [facility] 1.2.840.114 [id number] [facility] 11:00:00 11:13:02 Visit Jareth Olmedo 350.1.13.10 ity of [facility] [place] [id number] Ak dical NAL [address] [place] [address] 2021-12-30 2021-12-30 Outpatient R JARETH OLMEDO [facility] [id number] Univers 09:30:00 10:59:31 ity [facility] 2021-12-30 2021-12-30 Office Jareth Olmedo [facility] 1.2.840.114 [id number] Univers 09:30:00 10:59:31 [facility] 350.1.13.10 i ty of [facility] [place] [id number] Ak dical NAL [address] [place] [address] 2021-12-30 2021-12-30 Outpatient R JARETH OLMEDO [facility] 069 [id number] Univers 09:30:00 10:59:31 ity [facility] 2021-12-30 2021-12-30 Orders Doctor PALACIOS 1.2.840.114 [id number] Univers 00:00:00 00:00:00 Only Unassigned, JOYCE 350.1.13.10 ity of [facility] 4.2.7.2.686 Anil as [id number] [place] [address] [address] 2021-12-28 2021-12-28 Telephone MOMO [facility] 1.2.840.11 4 [id number] Univers 00:00:00 00:00:00 Amena SALDANA 350.1.13.10 it y of PEDIATRIC 4.2.7.2.686 [facility] [id number] [address] 2021-11-23 2021-11-23 Outpatient R AMENA BETANCOURT [facility] B [id number] Univers 09:30:00 10:56:47 AMENA BETANCOURTy [facility] 2021-11-23 2021-11-23 Office Asia [facility] 1.2.840.114 [id number] Univers 09:30:00 10:56:47 Visit Amena SALDANA 350.1.13.10 it y [place] [id number] [address] 2021-11-09 2021-11-09 Home Health Rn Lab, Scott - Tereso [facility] 1.2.840.1 14 [id number] Univers 16:30:00 16:45:00 Visit Quinten Kline HEALTH 350.1.13.10 ity of Amena Betancourt [place] 4.2.7.2.686 [place] REENA?BLEA [id number] [address] MEDICAL OFFICE BUILDING 2021-11-09 2021-11-09 Office Asia [facility] 1.2.840.114 [id number] Univers 15:00:00 15:40:11 Visit Amena SALDANA 350.1.13.10 it y [place] [id number] [address] 2021-11-09 2021-11-09 Outpatient R AMENA BETANCOURT [facility] B [id number] Univers 15:00:00 15:40:11 TRIAMENA ABERNATHY itjoyce [facility] 2021-11-09 2021-11-09 Outpatient R AMENA BETANCOURT [facility] B [id number] Univers 15:00:00 15:40:11 TRIAMENA ABERNATHY [facility] 2021-11-09 2021-11-09 Outpatient R AMENA BETANCOURT [facility] B [id number] Univers 15:00:00 15:00:00 TRIAMENA ABERNATHY itjoyce [facility] 2021-10-27 2021-10-27 Outpatient R JARETH OLMEDO [facility] [id number] Univers 15:00:00 15:45:46 ity [facility] 2021-10-27 2021-10-27 Office Jareth Olmedo [facility] 1.2.840.114 [id number] Univers 15:00:00 15:45:46 Visit LES 350.1.13.10 it y of [facility] 4.2.7.2.686 [facility] [id number] [facility] [address] 2021-10-27 2021-10-27 Orders Doctor PHILIP 1.2.840.114 [id number] Univers 00:00:00 00:00:00 Only Unassigned, JOYCE 350.1.13.10 ity of [facility] 4.2.7.2.686 [facility] [id number] [facility] [address] 2021-10-18 2021-10-18 Emergency [facility] [id number] Univers 12:38:00 17:05:00 KAMERON canas [facility] 2021-10-18 2021-10-18 Emergency Frances [facility] 1.2.487.041 [id number] Univers 12:38:00 17:05:00 Kameron BRADLEY 350.1.13.10 i ty of [facility] 4.2.7[address] [facility] [id number] [facility] [address] 2021-10-18 2021-10-18 Emergency X [facility] [id number] Univers 12:38:00 17:05:00 KAMERON canas [facility] 2021-02-20 2021-02-20 Emergency EM [place] ESTRELLITA [id number] [address] [facility] 07:08:00 10:32:00 Praveen [address] [facility] Results Test Description Test Time Test Comments Results Result Comments Source GALV ONLY - SYPHILIS IGG/IGM 2022-12-22 15:06:38 Test Item Value Reference Range Interpretation Comme nts Syphilis IgG/IgM (test code = Non-reactive Non-reactive 91607-5) SAMY (test code = SAMY) Non-reactive - No serologic evidence of T. pallidum infection. Cannot exclude incubating or early syphilis. Submit a second specimen in 2-4 weeks if syphilis is clinically suspected. Equivocal - Further testing to follow. Reactive - Further testing to follow. Lab Interpretation (test code = Normal 07296-7) [facility] [id number] 19:09:00 Test Item Value Reference Range Interpretation Comments ABO & RH (test code = 20) O NEGATIVE IAT (test code = 1185) Negative [facility] SPECIFIC [id number] 14:23:00 Test Item Value Reference Range Interpretation Comments [...] U APPEAR (test code = 3267) . [facility]CIFIC [id number] 19:12:00 Test Item Value Reference Range Interpretation Comments [...] U APPEAR (test code = 3267) . [facility] URINALYSIS W SPECIFIC [id number] 15:07:00 Test Item Value Reference Range Interpretation [...] U APPEAR (test code = 3267) . [facility] URINALYSIS W SPECIFIC [id number] 15:07:00 Test Item Value Reference Range Interpretation [...] U APPEAR (test code = 3267) . [facility] URINALYSIS W SPECIFIC [id number] 14:51:00 Test Item Value Reference Range Interpretation [...] U APPEAR (test code = 3267) . [facility] URINALYSIS W SPECIFIC [id number] 14:51:00 Test Item Value Reference Range Interpretation [...] U APPEAR (test code = 3267) . [facility] URINALYSIS W SPECIFIC [id number] 14:51:00 Test Item Value Reference Range Interpretation [...] U APPEAR (test code = 3267) . [facility] URINALYSIS W SPECIFIC [id number] 20:52:00 Test Item Value Reference Range Interpretation [...] U APPEAR (test code = 3267) . [facility] URINALYSIS W SPECIFIC [id number] 20:36:00 Test Item Value Reference Range Interpretation [...] POCT U APPEAR (test code = 3267) [facility] URINALYSIS W SPECIFIC [id number] 20:22:00 Test Item Value Reference Range Interpretation [...] U APPEAR (test code = 3267) . [facility] URINALYSIS W/O SPECIFIC [id number] 18:12:00 Test Item Value Reference Range Interpretation [...] code = 3257) NEG Negative - Negative [facility] [id number] 18:11:00 Test Item Value Reference Range Interpretation Comments POCT PREG (test code = 1605) Positive On board controls acceptable with C Yes Line (test code = 3574) POCT PREG LOT # (test code = 3575) POCT PREG TEST DATE (test code = 3576) [facility] Center[facility] [id number] 21:14:40 Test Item Value Reference Interpretation Comments Range TROPONIN I (test 0.002 ng/mL See_Comment [Automated code = 4063386118) message] The system which generated this result [...] biotin. Lab Interpretation Normal (test code = 96406-1) [facility]AL [id number] 21:08:59 Test Item Value Reference Range Interpretation Comments NT-proBNP (test code 53 pg/mL See_Comment [Autom ated = 6525424230) message] The system which generated this result transmitted reference range : <=125. The reference range was not used to interpret this result as normal/abnormal . SAMY (test code = SAMY) Biotin has been reported to cause a negative bias, interpret results relative to patient's use of biotin. Lab Interpretation Normal (test code = 12579-9) [facility]2022-12-08 21:00:36 Test Item Value Reference Range Interpretation Comments MAGNESIUM (test code = 6842988815) 1.9 mg/dL 1.7-2.4 Lab Interpretation (test code = Normal 87308-1) [facility]. METABOLIC PANEL (93115)2022-03-23 21:00:16 Test Item Value Reference Range Interpretation Comments NA (test code = 136 mmol/L 135-145 4981173964) K (test code = 4.4 mmol/L 3.5-5.0 0349653503) CL (test code = 104 mmol/L 98-108 5473252972) CO2 TOTAL (test code 24 mmol/L 23-31 = 1263593836) AGAP (test code = 2-16 1945729381) BUN (test code = 13 mg/dL 7-23 2668569216) GLUCOSE (test code = 92 mg/dL 70-110 4596902092) CREATININE (test code 0.53 mg/dL 0.50-1.04 = 0210369983) TOTAL BILI (test code 0.4 mg/dL 0.1-1.1 = 8546595177) CALCIUM (test code = 9.1 mg/dL 8.6-10.6 6272765259) T PROTEIN (test code 7.2 g/dL 6.3-8.2 = 0633491824) ALBUMIN (test code = 4.6 g/dL 3.5-5.0 9543890843) ALK PHOS (test code = 50 U/L 34-122 0364176493) ALTv (test code = 23 U/L 5-35 2-6) AST(SGOT) (test code 32 U/L 13-40 = 5533022043) eGFR (test code = mL/min/1.73m2 8755841226) SAMY (test code = SAMY) Association of [...] or urine or abnormalities in imaging tests). [facility] WITH [id number] 20:35:10 Test Item Value Reference Range Interpretation Comments WBC (test code = See_Comment [Automated 6690-2) message] The sy stem which generated this result transmitted reference range : 4.30 - 11.10 10*3/?L. The reference range was not used to interpret this result as normal/abnormal . RBC (test code = See_Comment L [Automated 789-8) message] The sy stem which generated this [...] RDW-SD (test code = 40.3 fL 39.0-49.9 34445-7) RDW-CV (test code = 12.1 % 12.0-15.5 788-0) PLT (test code = See_Comment [Automated 777-3) message] The sy stem which generated this result transmitted reference range : 166 - 358 10*3/ ?L. The reference r kristen was not used to interpret this result as normal/abnormal . MPV (test code = 9.3 fL 9.5-12.9 L 14107-6) NRBC/100 WBC (test See_Comment [Automat ed code = 6839505229) message] The system which generated this result transmitted reference range : 0.0 - 10.0 /100 WBCs. The refer ence range was not u sed to interpret th is result as normal/abnormal . NRBC x10^3 (test code See_Comment [Auto mated = 6338395776) message] The s ystem which generated this result transmitted reference range : 10*3/?L. The reference range was not used to interpret this result as normal/abnormal . GRAN MAT (NEUT) % 73.4 % (test code = 770-8) IMM GRAN % (test code 0.50 % = 0613085921) LYMPH % (test code = 15.5 % 736-9) MONO % (test code = 8.2 % 5905-5) EOS % (test code = 2.1 % 713-8) BASO % (test code = 0.3 % 706-2) GRAN MAT x10^3(ANC) 7.55 10*3/uL 1.88-7.09 H (test code = 2390200956) IMM GRAN x10^3 (test 0.05 10*3/uL 0.00-0.06 code = 4851627602) LYMPH x10^3 (test code 1.60 10*3/uL 1.32-3.29 = 731-0) MONO x10^3 (test code 0.84 10*3/uL 0.33-0.92 = 742-7) EOS x10^3 (test code = 0.22 10*3/uL 0.03-0.39 711-2) BASO x10^3 (test code 0.03 10*3/uL 0.01-0.07 = 704-7) Lab Interpretation Abnormal (test code = 05780-7) [facility] URINALYSIS W/O SPECIFIC [id number] 20:09:00 Test Item Value Reference Range Interpretation [...] code = 3257) n/a Negative - Negative [facility] URINALYSIS W/O SPECIFIC [id number] 16:00:00 Test Item Value Reference Range Interpretation [...] code = 3257) N/A Negative - Negative [facility] [id number] 16:00:00 Test Item Value Reference Range Interpretation [...] code = 3257) N/A Negative - Negative [facility]/O SPECIFIC [id number] 16:00:00 Test Item Value Reference Range Interpretation [...] code = 3257) N/A Negative - Negative [facility]IFIC [id number] 16:00:00 Test Item Value Reference Range Interpretation [...] code = 3257) N/A Negative - Negative [facility]/O SPECIFIC [id number] 16:00:00 Test Item Value Reference Range Interpretation [...] code = 3257) N/A Negative - Negative [facility]/O SPECIFIC [id number] 16:00:00 Test Item Value Reference Range Interpretation [...] code = 3257) N/A Negative - Negative [facility] [id number] 18:43:00 Test Item Value Reference Range Interpretation Comments POCT PREG (test code = 1605) Negative On board controls acceptable with C Yes Line (test code = 3574) POCT PREG LOT # (test code = 3575) POCT PREG TEST DATE (test code = 3576) [facility] [id number] 18:43:00 Test Item Value Reference Range Interpretation Comments POCT PREG (test code = 1605) Negative On board controls acceptable with C Yes Line (test code = 3574) POCT PREG LOT # (test code = 3575) POCT PREG TEST DATE (test code = 3576) [facility] [id number] 18:43:00 Test Item Value Reference Range Interpretation Comments POCT PREG (test code = 1605) Negative On board controls acceptable with C Yes Line (test code = 3574) POCT PREG LOT # (test code = 3575) POCT PREG TEST DATE (test code = 3576) [facility] [id number] 15:29:00 Test Item Value Reference Range Interpretation Comments POCT PREG (test code = 1605) Negative On board controls acceptable with C Yes Line (test code = 3574) POCT PREG LOT # (test code = 3575) POCT PREG TEST DATE (test code = 3576) [facility] [id number] 15:29:00 Test Item Value Reference Range Interpretation Comments POCT PREG (test code = 1605) Negative On board controls acceptable with C Yes Line (test code = 3574) POCT PREG LOT # (test code = 3575) POCT PREG TEST DATE (test code = 3576) [facility] US TRANSVAGINAL NON [id number] 09:32:00 [facility] BROOKE THOMAS : 1990 Sex: F Patient Name: BROOKE THOMAS Unit No: [id number] EXAMS: CPT CODE: [id number] [place] [address] C3 TIME OF STUDY: 02/20/2021 REASON FOR [...] 2.5 x 1.7 x 1.8cm. The left tia sures 4.1 x 2.2 x 2.8 cm. There is a 2.2 cm dominant left ovarian follicle. Normal color flow is identified to both ovaries. No adnexal masses are identified. There is no fluid in the cul-de-sac. IMPRESSION: 1. No focal uterine masses. IUD in place in the endometrium. 2. No adnexal masses. 2.2 cm dominant left ovarian follicle, otherwise unremarkable ovaries. Electronically Signed by Antonino Tolentino 02/20/2021 at 0932 Reported and signed by: Antonino Miranda MD CC: Indira MARIE Technologist: Sophy Stevenson Trnscrbd D/ (0932) [email or web address] Probe: [id number] Orig Print D/T: S: 02/20/2021 (0935) Probe: ELISABETH Cavanaugh NAME: BROOKE THOMAS [address] [place] [address] Blvd PHYS: ABBE.Grupo - SheikhIndira CYNTHIA [place], [place] [address] : 1990 AGE: 30 SEX: F LOC: STEPHANIE PHONE #: [phone] EXAM DATE: 02/20/2021 STATUS: REG ER FAX #: [phone] RAD NO: Page 1 Signed ReportLACTIC [id number] 09:17:00 Test Item Value Reference Range Interpretation Comments LACTIC ACID (test 2.1 mmol/L 0.4-2.0 H ON 1 AT 0917, code = LACT) B.LAB.CLAUDIAK BERKLEY D TO JASSON MONREAL T he report was conf irmed by read back parrish cols Y,N: YES. Criti senait values after th e first occurrence are excluded. - CT ABD PELVIS W/[id number] 08:35:00 [facility] BROOKE THOMAS : 1990 Sex: F Patient Name: BROOKE THOMAS Unit No: [id number] EXAMS: CPT CODE: [id number] CT ABD PELVIS W/CONT 94044 EXAM: - CT ABD PELVIS W/CONT LOCATION: C3 INDICATION: 30 years -old Female with bl flank pain / hx renal; calculi TECHNIQUE: Contrast - IV contrast was given. No oral contrast was given Portal venous phase - abdomen and pelvis No delayed phase images were obtained. Reconstructions - coronal and sagittal p lanes This exam was performed according to our departmental dose-optimization program, which includes automated exposure control, adjustment [...] 2.2 cm cystlike lesion in the left ova ry. Gastrointestinal: No bowel obstruction or perienteric inflammation. The appendix is normal. Vascular: No evidence of aneurysm or dissection. Lymphatics: No enlarged lymph nodes by CT size criteria.Bones/Soft Tissues: No acute osseous findings. No ventral hernias. Peritoneum/Other: No extraluminalair. No extraluminal fluid. IMPRESSION: 2.2 cm cystlike lesion in the left ovary. ELISABETH Cavanaugh NAME: [address] PHYS: [place]ira [place] [address] : 1990 AGE: 30 SEX: F LOC: B.ERS PHONE #: [phone] EXAM DATE: 02/20/2021 STATUS: REG ER FAX #: [phone] RAD #: D/C DT PAGE 1 Signed Report (CONTINUED) Patient Name: BROOKE THOMAS Unit No: [id number] EXAMS: CPT CODE: [id number] CT ABD PELVIS W/CONT 93977 <Continued> No evidence of obstructive uropathy. at 0835 Reported and signed by: Adelso Adler MD CC: Indira MARIE Dictated Date/Time: 02/20/2021 (0835) Technologist: Orlando Burgos CTDI: 9.22 DLP: 492.32 Trnscrpt: 02/20/2021 (0835) [email or web address] [facility] NAME: [address] PHYS: [place] [address] : 1990 AGE: 30 SEX: F LOC: B.ERS PHONE #: [phone] EXAM DATE: 02/20/2021 STATUS: REG ER FAX #: [phone] RAD #: D/C DT PAGE 2 Signed Report Patient Name: BROOKE THOMAS Unit No: [id number] EXAMS: CPT CODE: [id number] CT ABD PELVIS W/CONT 84820 <Continued> Orig Print D/T: S: 02/20/2021 (0839) ELISABETH Cavanaugh NAME: BROOKE THOMAS [address] [place] [address] Blvd PHYS: ABBE.Indira Fischer [place] [address] : 1990 AGE: 30 SEX: F LOC: Marisabel.ERS PHONE #: [phone] EXAM DATE: 02/20/2021 STATUS: REG ER FAX #: [phone] RAD #: D/C DT PAGE 3 Signed ReportBASIC METABOLIC [id number] 08:03:00 Test Item Value Reference Range Interpretation [...] message] (test code = Index/DL The system whic h HEMINDEX) generated this result transmit ayde reference [...] this result as normal/abnormal . HEPATIC FUNCTION [id number] 08:03:00 Test Item Value Reference Range Interpretation [...] 86 Unit/L 45-117 N code = ALKP) [id number] 08:03:00 Test Item Value Reference Range Interpretation Comments LIPASE (test code = LIP) 50 Unit/L 114-286 L CBC W/O [id number] 07:54:00 Test Item Value Reference Range Interpretation [...] N MPV) UA RFLX MICR CULT IF [id number] 07:51:00 Test Item Value Reference Range Interpretation [...] LT 2018-06-06 18:55:00 FAX: Ortega Barrera MD [phone] [place]: [address] St: [facility] FAX: Swapnil Smith NP [phone] ----- Patient Name: BROOKE SYKES Unit No: [id number] EXAMS: CPT CODE: [id number] XR ELBOW 3 + [place] LT [id number] EXAMINATION: - XRFOREARM 2 VIEWS LT, - [...] 06/06/2018 (1858) ELISABETH Cavanaugh NAME: BROOKE SYKES [address] [place] [address] Blvd PHYS: TERE. - Swapnil Gonzalez NP [place], [place] [address] : 1990 AGE: 28 SEX: F LOC: STEPHANIE PHONE #: [phone] EXAM DATE: 06/06/2018 STATUS: REG FAX #: [phone] RAD NO: DC Dt: PAGE 1 Signed Report- XR FOREARM 2 VIEWS [id number] 18:55:00 FAX: Ortega Barrera MD [phone] [place]: E St: REG FAX: Swapnil Smith NP [phone] ----- Patient Name: BROOKE SYKES Unit No: [id number] EXAMS: CPT CODE: [id number] XR FOREARM [address] [place] [address] EXAMINATION: - XR FOREARM 2 VIEWS LT, [...] [email or web address] Orig Print D/T: S: 06/06/2018 (1858) [facility] [place] NAME:BROOKE SYKES [address] [place] [address] PHYS: TERE. - [place] [address] : 1990 AGE: 28 SEX: F LOC: STEPHANIE PHONE #: [phone] EXAM DATE: 06/06/2018 STATUS: REG FAX #: [phone] RAD NO: DC Dt: PAGE 1 Signed Report- XR HAND 3 + V [id number] 18:54:00 FAX: Ortega Barrera MD [phone] [place]: E St: REG FAX: Swapnil Smith NP [phone] ----- Patient Name: BROOKE SYKES Unit No: [id number] EXAMS: CPT CODE: [id number] XR HAND 3 + V LT [address] EXAMINATION: - XR WRIST 3 + V [...] 06/06/2018 (1856) ELISABETH Cavanaugh NAME: BROOKE SYKES [address] [place] [address] PHYS: TERE. - Swanpil Gonzalez NP [place], [place] [address] : 1990 AGE: 28 SEX: F LOC: B.ERS PHONE #: [phone] EXAM DATE: 06/06/2018 STATUS: REG ER FAX #: [phone] RAD NO: DC Dt: PAGE 1 Signed Report- XR WRIST 3 + V [id number] 18:54:00 FAX: Ortega Barrera MD [phone] [place]: St: REG FAX: Swapnil Smith NP [phone] ----- Patient Name: BROOKE SYKES Unit No: [id number] EXAMS: CPT CODE: [id number] XR WRIST 3 + V LT [address] EXAMINATION: - XRWRIST 3 + V LT, [...] [email or web address] Orig Print D/T: S: 06/06/2018 (1856) [facility] [place] NAME: BROOKE SYKES [address] [place] [address] PHYS: TERE. - [place], [place] [address] : 1990 AGE: 28 SEX: F LOC: STEPHANIE PHONE #: [phone] EXAM DATE: 06/06/2018 STATUS: REG ER FAX #: [phone] RAD NO: DC Dt: PAGE 1 Signed Report- XR HUMERUS 2 + V [id number] 18:51:00 FAX: Ortega Barrera MD [phone] [place]: St: REG FAX: Swapnil Smith NP [phone] ---- Patient Name: BROOKE SYKES Unit No: [id number] EXAMS: CPT CODE: [id number] XR HUMERUS 2 + V LT [address] EXAMINATION: -XR HUMERUS 2 + V LT. LOCATION: B2. HISTORY: fall. COMPARISON: None. TECHNIQUE: AP and lateral viewsof the left humerus were obtained. FINDINGS: No acute fracture or dislocation is identified. Soft tissue structures appear within normal limits. IMPRESSION: No acute osseous abnormality is identified. at 1851 Reported and signed by: Pau Cardenas MD CC: Swapnil Gonzalez NP Dictated Date/Time: 06/06/2018 (1850)Technologist: Elise Stark Transcribed Date/Time: 06/06/2018 (1850) By: [email or web address] Orig Print D/T: S: 06/06/2018 (1854) [facility] [place] NAME: MONYBROOKE YAO [address] [place] [address] PHYS: TERE. - Swapnil Gonzalez NP [place], [place] [address] : 1990 AGE: 28 SEX: F LOC: STEPHANIE PHONE #: [phone] EXAMDATE: 06/06/2018 STATUS: REG ER FAX #: [phone] RAD NO: DC Dt: PAGE 1 Signed Report- XR SHOULDER 2 + V [id number] 18:50:00 FAX: Ortega Barrera MD [phone] [place]: St: REG FAX: Swapnil Smith NP [phone] ----- Patient Name: BROOKE SYKES Unit No: [id number] EXAMS: CPT CODE: [id number] XR SHOULDER 2 + V LT [address] EXAMINATION: - XR SHOULDER 2 + V [...] by: Pau Cardenas MD CC: Swapnil Gonzalez PAY CLERK Dictated Date/Time: 06/06/2018 (1849)Technologist: Elise Stark Transcribed Date/Time: 06/06/2018 (1849) By: [email or web address] Orig Print D/T: S: 06/06/2018 (1852) ELISABETH Cavanaugh NAME: BROOKE SYKES[address] PHYS: HUGO - Swapnil Gonzalez NP [place], [place] [address] : 1990 AGE: 28 SEX: F LOC: B.ERS PHONE #: [phone] EXAM DATE: 06/06/2018 STATUS: REG ER FAX #: [phone] RAD NO: DC Dt: PAGE 1 Signed Report Notes Date/Time Note Provider Source 2022-12-12 Formatting of this note might be differe nt from the original. Lilian Quinonez LVN [facility] 14:10:33-00:00 Noted. Electronically signed by Lilian Quinonez LVN a t 12/12/2022 2:10 PM CDT 2022-12-12 Formatting of this note might be differe nt from the original. Gagan Meza [facility] 13:56:02-00:00 Patient in clinic for [facility] ating that she has been in the ER for vomiting all night; states that she just wants to feel better. Scheduled patient to be seen today at 2:00 with provider. Electronically signed by Gagan Meza at 11/15 2:03 PM CDT 2022-11-17 Formatting of this note might be differe nt from the original. Amber Rey [facility] 12:52:37-00:00 Notified patient of low risk NIPT results. No further questions or testing desired at this time. Results released to patient via [employer] portal. Electronically signed by Amber Rey at 12:55 PM CDT 2022-11-10 [facility] 13:35:01-00:00 Pt in clinic for labs, discu ssed problem list with patient. Pt was seen by genetic counselor and reports all questions answered. Verbalized understanding. Lorna Tucker RN 11/10/22 1:35 PM 2022-11-10 [facility] 11:43:08-00:00 Suboxone maintenance treatme nt complicating , antepartum That was put on her problem list by amena betancourt her pcp. Is she not on suboxone treatment anymore? If not I can put a comment on her problem. What labs does she have question about? CAROLYNE Mueller 11/10/2022 11:44 AM 2022-11-10 [facility] 10:04:57-00:00 Called pt x 2. No answer. No vm box set up. Lorna Tucker RN 11/10/22 10:05 AM 2022-11-10 Formatting of this note might be differe nt from the original. Clarisa Najera [facility] 08:50:02-00:00 Pt requesting call back, sta florencia she was looking through her MyChart results and would like clarification. Please call [phone]. Electronically signed by Clarisa Najera at 8:51 AM CDT 2022-11-07 [facility] 15:53:06-00:00 Called pt, pt asking if quad [...] be differe nt from the original. Silva Lazcano Jared [facility] 15:35:55-00:00 Brooke Thomas is a 32 year old female Pt is calling wanting to kno w if genetic testing is normal or if there is something wrong. Please contact pt. Electronically signed by Silva Coleman at 11/07 3:36 PM CDT 2021-02-20 [facility] 07:25:00-00:00 [facility] ([facility]) EMERGENCY PROVIDER REPORT REPORT#:[id number] REPORT STATUS: Signed DATE:02/20/21 TIME: 724 PATIENT: BROOKE THOMAS UNIT #: [id number] ROOM/BED: AGE: 30 SEX: F PCP PHYS: No Primary or Family Ph ysician SERVICE AUTHOR: Indira Tyler * ALL edits or amendments must be made on the [place]/computer document * Indira Tyler 02/20/21 0725: HPI-Abd Pain F Under 40 General Confirmed [...] - 8.0 pH UNITS) 6.5 Ur Specific [place] (1.001 - 1.035 SG) 1.026 Urine Protein [...] Squamous Epith Cells (NONE - SQepi /UL) MANY >20 Amorphous Sediment (NONE - FEW #/mcL) [...] pain has resolved since his been in ER, repeat abdominal examination is unremarkable, discussed [...] and current condition do not suggest ac [place] appendicitis, bowel obstruction, tubovarian abscess, ectopic pregnan [...] will pursue further outpatient evaluation with the [facility] care physician or other designated or consulting [...] 02/20 801 DC 1 04/22 IV 02/20 900 0844 Sodium Chloride 1,000 ML X1ED STA 02/20 0724 DC 02/20 IV 02/20 823 0744 Gastrointestinal Drugs Sig/Maryanne Start time Last [...] (ZOFRAN ODT) 4 MG PO Q6H PRN NE N NAUSEA/VOMITING #15 TABS DICYCLOMINE (BENTYL) 10 [...] dvised. Stay on a liquid diet for e next 24 hours and then advance as tolerated avoid fried and greasy foods. Follow-up with Manuela Hamemr. Return for worsening symptoms. 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 Quality Measures Preg Test for Women w/Abd Pa in Female age 14-50, Complaint of abdominal pn, Any preg test ordered Free Text Depart Notes Free Text Depart Notes Strict return precautions are given. Praveen Lizarraga 02/28/21 0915: Patient Discharge Departure Supervising Physician Note MidLv Saw Pt Alone I have reviewed the PA/PAY CLERK's note and plan of car e. I was available for consultation as needed at al l times during the patient's visit in the emergency department. I agree with the clinical impression , plan and disposition. Electronically Signed by Indira Tyler on 11/03 at 1457 at 0915 RPT #:[id number] END OF REPORT 2018-06-06 [facility] 18:02:00-00:00 [facility] ([facility]) EMERGENCY PROVIDER REPORT REPORT#:[id number] REPORT STATUS: Signed DATE:06/06/18 TIME: 1801 PATIENT: BROOKE SYKES UNIT #: [id number] ROOM/BED: AGE: 28 SEX: F PCP PHYS: No Primary or Family Ph ysician SERVICE AUTHOR: Swapnil Gonzalez PAY CLERK * ALL edits or amendments must be made on the [place]/computer document * HPI-Trauma Minor/Fall General Confirmed Patient Yes Patient Type New patient Initial Greet Date/Time 06/06/18 1717 Presentation Chief Complaint Fall, Extremity pain Hx [...] is a 28-year-old female that comes to [facility] emergency department with chief complaint of fall [...] Patient denies . Risk-Trauma Minor/Fall Risk Stratification Elena Coma Score > Age 5 [place] Coma Score > Age 5 Response Value [...] Room air 06/06 1714 Temp 36.7 06/06 1714 Pulse 84 06/06 1714 Resp 06/06 Last Documented: Result Date Time Pulse Ox 100 06/06 1714 B/P 137/81 06/06 1714 B/P Mean 99 06/06 1714 O2 Delivery Room air 06/06 1714 Temp 36.7 06/06 1714 Pulse 84 06/06 1714 Resp 18 06/06 1714 Review of Vital [...] 1812 Report Impression - Status: SIGNED Entered: 06/06/20181858 IMPRESSION: No acute osseous abnormality is identified. Impression By: Oliver Cardenas MD RADIOLOGY - XR ELBOW 3 + V LT 06/06 181 Report Impression - Status: SIGNED Entered: 06/06/2018 1859 IMPRESSION: No acute osseous abnormality is identified. Impression By: Oliver Cardenas MD RADIOLOGY - XR HUMERUS 2 + V LT 06/06 181 Report Impression - Status: SIGNED Entered: 06/06/2018 1855 IMPRESSION: No acute osseous abnormality is identified. Impression By: Oliver Cardenas MD RADIOLOGY - XR SHOULDER 2 + V LT 06/06 181 Report Impression - Status: SIGNED Entered: 06/06/2018 1853 IMPRESSION: No acute osseous abnormality is identified. Impression By: Oliver Cardenas MD Imaging Statement Radiographic studies reviewed and considered in the medical decision-making. Re-Evaluation MDM Free Text MDM Notes Free Text MDM Notes Patient's arm placed in sling. Discussed diagnos tic results with patient. Patient to be discharged with prescription for p n medicine. Patient given return precautions. Patient agrees [...] Ox 100 06/06 171 B/P 137/81 06/06 171 B/P Mean 99 06/06 1714 O2 Delivery Room air 06/06 1714 Temp 36.7 06/06 171 Pulse 84 06/06 171 Resp 18 06/06 1714 Last Documented: Result Date Time Pulse Ox 100 06/06 171 B/P 137/81 06/06 171 B/P Mean 99 06/06 171 O2 Delivery Room air 06/06 1714 Temp 36.7 06/06 171 Pulse 84 06/06 171 Resp 18 06/06 1714 All vital signs available at the time of this en try have been reviewed. Condition Stable Clinical Impression Clinical Impression Primary Impression: Fall Secondary Impressions: Arm pain Disposition Decision Discharge )( Discharged to Home Yes )( Time 1912 )( Date 06/06/18 Discharge/Care Plan Counseled Regarding [...] symptoms should prompt an immediate return to [facility] or the closest emergency department or a call to 911. Electronically Signed by Swapnil Gonzalez NP on 0 06/06/18 at 1912 RPT #:[id number] END OF REPORT 2018-06-06 [facility] 18:02:00-00:00 [facility] ([facility]) EMERGENCY PROVIDER REPORT REPORT#:[id number] REPORT STATUS: Signed DATE:06/06/18 TIME: 1801 PATIENT: BROOKE SYKES UNIT #: [id number] ROOM/BED: AGE: 28 SEX: F PCP PHYS: No Primary or Family P hysician SERVICE AUTHOR: Swapnil Gonzalez NP * ALL edits or amendments must be made on the [place]/computer document * Swapnil Gonzalez 06/06/181801: HPI-Trauma Minor/Fall General Confirmed Patient [...] is a 28-year-old female that comes to [facility] emergency department with chief complaint of fall [...] Patient denies . Risk-Trauma Minor/Fall Risk Stratification [place] Coma Score > Age 5 [place] Coma Score > Age 5 Response Value [...] Report Impression - Status: SIGNED Entered: 06/06/2018 1859 IMPRESSION: No acute osseous abnormality is identified. Impression By: Oliver Cardenas MD RADIOLOGY - XR HUMERUS 2 + V LT 06/06 1812 Report Impression - Status: SIGNED Entered: 06/06/2018 1855 IMPRESSION: No acute osseous abnormality is identified. Impression By: Oliver Cardenas MD RADIOLOGY - XR SHOULDER 2 + V LT 06/06 1812 Report Impression - Status: SIGNED Entered: 06/06/2018 1853 IMPRESSION: No acute osseous abnormality is identified. Impression By: Oliver - Pau Cardenas MD Imaging Statement Radiographic studies reviewed [...] 1800 D C 06/06 Acetaminophen PO 06/06 1801 181 Patient Discharge Departure Vital Signs/Condition Vital Signs First Documented: Result Date Time Pulse Ox 100 06/06 171 B/P 137/81 06/06 1714 B/P Mean 99 06/06 1714 O2 Delivery Room air 06/06 1714 Temp 98.0 06/06 1714 Pulse 84 06/06 171 Resp 18 06/06 [...] symptoms should prompt an immediate return to [facility] or the closest emergency department or a call to 911. Ortega Loera. 06/07/18 0134: HPI-Trauma Minor/Fall General Initial Greet Date/Time 06/06/18 1717 Physical Exam Vital Signs Vital Signs Interpretation Diagnostics Lab Results Interpretation Results Re-Evaluation MDM ED Course Medication(s) Ordered Patient Discharge Departure Vital Signs/Condition Vital Signs Supervising Physician Note MidLv Saw Pt Alone I have reviewed the PA/PAY CLERK's note and plan of sushma scruggs. I was available for consultation as needed at al l times during the patient's visit in the emergency department. I agree with the clinical impression , plan and disposition. Electronically Signed by Swapnil Gonzalez NP on 0 06/06/18 at 5352 Electronically Signed by Ortega Loera MD on at 0135 RPT #:[id number] END OF REPORT"
--- NOTE | 2022-12-24 09:45 | EDPHYS ---
Physician Documentation [facility] Name: Brooke Thomas Age: 32 yrs Sex: Female : 1990 Arrival Date: 12/24/2022 Time: 09:09 Bed 19 Private MD: ED Physician Rosas Calzada HPI: 12/24 09:38 This 32 yrs old Female presents to ER via Ambulatory with complaints of Arm Pain, Leg rn Pain. 09:38 The patient or guardian complains of pain, that is acute. The complaints affect the rn left leg and left arm. Onset: The symptoms/episode began/occurred 3 day(s) ago. Modifying factors: The symptoms are alleviated by nothing. the symptoms are aggravated by nothing. Severity of symptoms: At their worst the symptoms were moderate, in the emergency department the symptoms are unchanged. The patient has experienced similar episodes in the past. Patient reports left arm pain and left leg pain. Has had it for years but worse during this . Had the same problem on the right side on a previous . Denies trauma. 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 No complaints with . Also ran out of Suboxone recently and thinks that might be aggravating things.. 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 - Social history:: Smoking status: Patient denies any tobacco usage or history of. - Family history:: not pertinent. - Hospitalizations: : No recent hospitalization is reported. ROS: 09:38 Constitutional: Negative for fever, chills, and weight loss, Eyes: Negative for injury, rn pain, redness, and discharge, Neck: Negative for injury, pain, and swelling, Cardiovascular: Negative for chest pain, palpitations, and edema, Respiratory: Negative for shortness of breath, cough, wheezing, and pleuritic chest pain, Abdomen/GI: Negative for abdominal pain, nausea, vomiting, diarrhea, and constipation, MS/Extremity: Positive for left arm and left leg pain and tingling Skin: Negative for injury, rash, and discoloration, Neuro: Negative for headache, and seizure Exam: 09:38 Constitutional: This is a well developed, well nourished patient who is awake, alert, rn and in no acute distress. Cardiovascular: Regular rate and rhythm. No pulse deficits. Respiratory: No increased work of breathing, no retractions or nasal flaring. Abdomen/GI: Soft, non-tender Skin: Warm, dry MS/ Extremity: Pulses equal, no cyanosis Neuro: Awake and alert, GCS 15, oriented to person, place, time, and situation. Cranial nerves II-XII grossly intact. Motor strength 5/5 in all extremities. Sensory grossly intact. Cerebellar exam normal. Normal gait. Vital Signs: 09:15 BP 125 / 74; Pulse 97; Resp 18; Temp 98.1(O); Pulse Ox 100% ; Weight 88.45 kg; Height 5 nj1 ft. 2 in. ; Pain 4/10; 09:30 BP 121 / 71; Pulse 81; Resp 16; Pulse Ox 99% on R/A; db 09:15 Body Mass Index 35.67 (88.45 kg, 157.48 cm) nj1 09:15 Pain Scale: Adult nj1 MDM: 09:11 Patient medically screened. rn 09:38 Differential diagnosis: Radiculopathy, bulging discs, mild withdrawal from Suboxone. rn Data reviewed: vital signs, nurses notes. Counseling: I had a detailed discussion with the patient and/or guardian regarding the historical points, exam findings, and any diagnostic results supporting the discharge/admit diagnosis, the need for outpatient follow up, to return to the emergency department if symptoms worsen or persist or if there are any questions or concerns that arise at home. Special discussion: I discussed with the patient/guardian in detail that at this point there is no indication for admission to the hospital. It is understood, however, that if the symptoms persist or worsen the patient needs to return immediately for re-evaluation. Based on the history and exam findings, there is no indication for further emergent testing or inpatient evaluation. I discussed with the patient/guardian the need to see the OB Gyne specialist for further evaluation of the symptoms. ED course: BP not elevated, normal neurological exam. I have seen her multiple times for radiculopathy and musculoskeletal problems. Also recently ran out of Suboxone. No indication for emergent imaging and patient also on Lovenox as well. Will DC home with OB follow-up as patient is high risk and do not want to prescribe medication without OB consent and approval.. Administered Medications: 09: CANCELLED (Duplicate Order): predniSONE PO 60 mg PO once rn 09:45 Drug: predniSONE PO 40 mg Route: PO; db 10:10 Follow up: Response: No adverse reaction db 09:45 Drug: Acetaminophen PO 650 mg Route: PO; db 10:10 Follow up: Response: No adverse reaction db Disposition Summary: 12/24/22 09:45 Discharge Ordered Location: Home rn Problem: an acute exacerbation rn Symptoms: have improved rn Condition: Stable rn Diagnosis - Intervertebral disc disorders with radiculopathy, lumbar region rn - Cervical disc disorder with radiculopathy rn - Paresthesia of skin rn Followup: rn - With: Private Physician - When: As needed - Reason: Recheck today's complaints, Re-evaluation by your physician Discharge Instructions: - Discharge Summary Sheet rn - Cervical Radiculopathy rn - Lumbosacral Radiculopathy rn - Paresthesia rn - Peripheral Neuropathy rn Forms: - Medication Reconciliation Form rn - Thank You Letter rn - Antibiotic finance intern - Prescription Opioid Use rn - Patient Portal Instructions rn - Leadership Thank You Letter rn Signatures: Rosas Calzada MD MD rn Benton, Danielle, RN RN db Jaco, Norma, RN RN nj1 Corrections: (The following items were deleted from the chart) 09:26 09:26 predniSONE PO 60 mg PO once ordered. rn rn
--- NOTE | 2022-12-24 09:45 | ER ---
Nurse's Notes [facility] Name: Brooke Thomas Age: 32 yrs Sex: Female : 1990 Arrival Date: 12/24/2022 Time: 09:09 Bed 19 Private MD: Diagnosis: Intervertebral disc disorders with radiculopathy, lumbar region;Cervical disc disorder with radiculopathy;Paresthesia of skin Presentation: 12/24 09:15 Chief complaint: Patient states: Left leg and arm pain for 2 days. Denies known injury. nj1 30 weeks . States she ran out of her suboxone a couple days ago. 09:15 Coronavirus screen: Vaccine status: Patient reports being unvaccinated. Ebola Screen: nj1 Patient denies travel to an Ebola-affected area in the 21 days before illness onset. Initial Sepsis Screen: Does the patient meet any 2 criteria? HR > 90 bpm. No. Patient's initial sepsis screen is negative. Does the patient have a suspected source of infection? No. Patient's initial sepsis screen is negative. Risk Assessment: Do you want to hurt yourself or someone else? Patient reports no desire to harm self or others. Onset of symptoms was December 22, 2022. 09:15 Method Of Arrival: Ambulatory [facility] 09:15 Acuity: ILA 4 [facility] BUNCHER HAND: 09:59 3, Living 2 db Historical: - Allergies: 09:28 Amoxicillin; nj1 - Home Meds: 09:28 Suboxone sublingual [Active]; nj1 10:00 Vitamin Oral [Active]; db - PMHx: 09:28 narcolepsy; Previous drug user; Heterozygous; nj1 - Immunization history:: Client reports having NOT received the Covid vaccine. - Social history:: Smoking status: Patient denies any tobacco usage or history of. - Family history:: not pertinent. - Hospitalizations: : No recent hospitalization is reported. Screenin:24 [facility] ED Fall Risk Assessment (Adult) History of falling in the last 3 months, db including since admission No falls in past 3 months (0 pts) Confusion or Disorientation No (0 pts) Intoxicated or Sedated No (0 pts) Impaired Gait No (0 pts) Mobility Assist Device Used No (0 pt) Altered Elimination No (0 pt) Score/Fall Risk Level 0 - 2 = Low Risk Oriented to surroundings, Maintained a safe environment. Abuse screen: Denies threats or abuse. Denies injuries from another. Nutritional screening: No deficits noted. Tuberculosis screening: No symptoms or risk factors identified. Assessment: 09:22 Reassessment: Patient appears in no apparent distress at this time. Patient and/or db family updated on plan of care and expected duration. Pain level reassessed. Patient is alert, oriented x 3, equal unlabored respirations, skin warm/dry/pink. PATIENT COMPLAINS OF LEFT ARM AND LEFT LEG TINGLING AND PAIN . PT IS 30 WEEKS . DENIES SOB. NO WEAKNESS NOTED. General: Appears in no apparent distress. comfortable, Behavior is calm, cooperative. Pain: Complains of pain in left arm and left leg. Neuro: Level of Consciousness is awake, alert, obeys commands, Oriented to person, place, time, situation, Manager Category are equal bilaterally Moves all extremities. Gait is steady, Speech is normal, Facial symmetry appears normal, Pupils are PERRLA, Intact. Respiratory: Airway is patent Respiratory effort is even, unlabored, Respiratory pattern is regular, symmetrical. Vital Signs: 09:15 BP 125 / 74; Pulse 97; Resp 18; Temp 98.1(O); Pulse Ox 100% ; Weight 88.45 kg; Height 5 nj1 ft. 2 in. ; Pain 4/10; 09:30 BP 121 / 71; Pulse 81; Resp 16; Pulse Ox 99% on R/A; db 09:15 Body Mass Index 35.67 (88.45 kg, 157.48 cm) nj1 09:15 Pain Scale: Adult [facility] ED Course: 09:11 Patient arrived in ED. rg4 09:11 Rosas Calzada MD is Attending Physician. rn 09:14 Joelle Ramos, MARION is Primary Nurse. db 09:24 Patient has correct armband on for positive identification. Provided Education on: db DISCHARGE. Pulse ox on. NIBP on. 09:28 Triage completed. nj1 09:32 Arm band placed on. nj1 09:35 Pillow given. db 10:00 No provider procedures requiring assistance completed. Patient did not have IV access db during this emergency room visit. Administered Medications: 09:26 CANCELLED (Duplicate Order): predniSONE PO 60 mg PO once rn 09:45 Drug: predniSONE PO 40 mg Route: PO; db 10:10 Follow up: Response: No adverse reaction db 09:45 Drug: Acetaminophen PO 650 mg Route: PO; db 10:10 Follow up: Response: No adverse reaction db Medication: 10:10 VIS not applicable for this client. db Outcome: 09:45 Discharge ordered by . rn 10:00 Discharged to home ambulatory. db 10:00 Condition: stable 10:00 Discharge instructions given to patient, Instructed on discharge instructions, follow up and referral plans. 10:10 Patient left the ED. db Signatures: Rosas Calzada MD MD rn Garcia, Rubi rg4 Joelle Ramos RN RN db Mikayla Ng RN RN nj1 Corrections: (The following items were deleted from the chart) 09:32 09:15 Coronavirus screen: Vaccine status: Patient reports receiving the 2nd dose of the nj1 covid vaccine. nj1
[2022-12-24] MEDS ORDERED: ACETAMINOPHEN 325 MG TABLET ONE (09:53)
[2022-12-24] MEDS ORDERED: predniSONE 20 MG TAB ONE (09:53)
[2022-12-24 10:15] VITALS: TEMP 98.1
[2022-12-24 10:16] VITALS: BP 121/71; O2SAT 99
== END 2022-12-24 10:10 | disposition home or self-care (01) ==
LOC: ER 09:09
DX: O26.893 Other specified pregnancy related conditions, third trimester (principal); M51.16 Intervertebral disc disorders with radiculopathy, lumbar region; M50.10 Cervical disc disorder with radiculopathy, unspecified cervical region; R20.2 Paresthesia of skin; Z88.1 Allergy status to other antibiotic agents; G47.419 Narcolepsy without cataplexy
CPT/HCPCS: 99283; J7512

== ENCOUNTER 2023-02-11 20:26 | Emergency (ER) | payer OTHER ==
--- OUTSIDE RECORDS SUMMARY | 2023-02-11 20:37 | XMS REPORT | Continuity of Care Document ---
:1990 Author Organization [facility] t Address [address] [place] [address] [place] [id number] Care Team Providers Name Role Phone Amena Betancourt NP Primary Care Physician [phone] PHILIP MAYES Attending Clinician Unavailable SHANTHI BAUER Attending Clinician Unavailable Shanthi Sheppard Attending Clinician [phone] Doctor Unassigned, [place] Attending Clinician Unavailable AVELINO CLAYTON Attending Clinician Unavailable Ultrasound, [facility] Attending Clinician Unavailable Avelino Clayton MD Attending Clinician [phone] Amber Rey Attending Clinician Unavailable JA SALDANA Attending Clinician Unavailable aJ Saldana MD Attending Clinician SANIYA ENRIQUE Attending Clinician Unavailable RUSTAM GOETZ Attending Clinician Unavailable RUSTAM GOETZ Attending Clinician Unavailable , [facility] Usg Room Attending Clinician Unavailable Rustam Goetz MD Attending Clinician Saniya Enrique CNM Attending Clinician ALBERTO MONTES Attending Clinician Unavailable Alberto Montse MD Attending Clinician TERRENCE BARRON Attending Clinician Unavailable Faculty, Scott Dim[facility] Attending Clinician Unavailable Terrence Barron MD Attending Clinician ADILSON CHERRY Attending Clinician Unavailable AMENA BETANCOURT Attending Clinician Unavailable AMENA BETANCOURT Attending Clinician Unavailable Pob, [facility] Main Attending Clinician Unavailable Rosibel Ramirez MD Attending Clinician ROSIBEL RAMIREZ Attending Clinician Unavailable Lab, Ang - Db Attending Clinician Unavailable Susan MACKAY Attending Clinician Unavailable Susan Kelly Attending Clinician [...] Unavailable AMENA BETANCOURT Admitting Clinician Unavailable Susan MACKAY Admitting Clinician Unavailable KAMERON DANIELS Admitting Clinician Unavailable Physician, No Primary or Family Admitting Clinician Unavaila ble Payers Payer Name Policy Type Policy Number Effective Date Expiration Date S ource $20 G [id number] 2007 00:00:00 [facility] [id number] 2022 CHOICE [place] ST[place] 00:00:00 [facility] [place] [id number] 2022 WOMEN 00:00:00 Problems Condition Condition Condition [...] nivers y y 4-10 ity of 00:00: [place] [facility] Supervisio Supervisio Disease Active 2022-0 U nivers n of n of 4-10 ity of high[place]risk [place] [facility] Branch History of History of Disease Active 0 U nivers miscarriag miscarriag 4-10 it y of e e 00:00: [place] [facility] Nausea and Nausea and Disease Active 0 U nivers vomiting vomiting 4-10 ity of in in 00:00: [place] 00 [facility] Missed Missed Disease Active 2021-04 Univers 2-27 ity of 00:00: [place] [facility] Vaginal Vaginal Disease Active 2021-04 Univers bleeding bleeding 2-27 ity of 00:00: [place] [facility] Rh Rh Disease Active 2021-04 Overview: Univer s negative negative 2-27 Formattin ity of state in state in 00:00: g of this [place] antepartum antepartum 00 note Me dical period period might be Branch different from the original. Will need rhogam 28 weeks, prn Bicornuate Bicornuate Disease Active 2021-04 U nivers uterus uterus 2-27 ity of 00:00: [place] [facility] Bicornuate Bicornuate Disease Active 2021-04 U nivers uterus uterus 2-12 it[place] of affecting affecting [place] , [place] Me [place]ical antepartum antepartum Br anch Abnormal Abnormal Disease Active 2021-04 Unive rs ultrasound ultrasound 2-12 it y of 00:00: [place] [facility] Bicornuate Bicornuate Disease Active 2021-04 U nivers uterus uterus 2-12 ity of affecting affecting 00:[place] , [place] Me dical antepartum antepartum Br anch Suboxone Suboxone Disease Active 2021-04 Unive rs maintenanc maintenanc 1-09 it y of e e 00:00: [place] treatment treatment 00 [facility] complicati complicati Br anch ng ng , , antepartum antepartum Narcolepsy Narcolepsy Disease Active 2021-04 Overview : Univers due to due to 04-24 Formattin ity of underlying underlying 00:00: g of this [place] condition condition 00 note [facility] without without might be Branch cataplexy cataplexy different from the original. 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 Unive rs Leiden Leiden 04-24 ity of mutation, mutation, 00:[place] heterozygo heterozygo 00 Me dical us Branch Needs flu Needs flu Disease Active 2021-04 Uni vers shot shot 04-24 ity of 00:00: [place] 00 Medical Branch Disease Active 2021-04 Uni [...] vomiting -09 ity of in in 00:00: [place] 00 [facility] prior to prior to Branch 22 weeks 22 weeks gestation gestation 5 weeks 5 weeks Disease Active 2021-04 Univers gestation gestation 09 ity of of of 00:00: [place] 00 [facility] Branch 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 00:[place] 00 Medical lesion lesion Branch (HGSIL), (HGSIL), grade 2 grade 2 STEFAN, on STEFAN, on biopsy of biopsy of cervix cervix Pain Pain Disease Active 2021-04 Univers pelvic pelvic 0-13 ity of 00:00: [place] 00 Medical Branch S/P LEEP S/P LEEP Disease Active 2021-04 Unive rs 0-13 ity of 00:00: [place] 00 Medical Branch BMI BMI Disease Active Univers 30.0-30.9, 30.0-30.9, 8-10 it y of adult adult 00:00: [place] [facility] Screening Screening Disease Active Uni vers examinatio examinatio 730 it y of n for STD n for STD 00[place] (sexually (sexually 00 Medi senait transmitte transmitte Br anch d disease) d disease) Late Late Disease Active Univers menses menses 11-12 ity of 00:00: [place] [facility] BMI BMI Disease Active Univers 29.0-29.9, 29.0-29.9, 7-30 it y of adult adult 00:00: [place] [facility] Well woman Well woman Disease [...] use 11-22 ity of disorder disorder 00:00: [place] 00 Medical Branch Allergies, Adverse Reactions, Alerts Allergy Allergy Status Severity Reaction(s) Onset Inactive Treating Comm ents Source Name Type Date Date Clinician Amoxicil Propensi Active Itching Unive rs jalen ty to 7-05 ity of adverse 00:00: [place] reaction 00 Medical s Branch AMOXICIL DRUG Active ITCHING Univers JALEN INGREDI 7-05 ity of 00:00: [place] 00 Medical Branch Penicill DA Active MO RASH 2020-04 [facility] ins 1-07 [place] 00:00: Region [facility] [place] DA Active SV [facility] 6-11 [place] 00:00: [facility] Social History Social Habit Start Date Stop Date Quantity Comments Source ASSERTION 2022-06-19 University of 00:00:00 [facility] History of tobacco Cigarette Smoker University of use [facility] Gender identity Universit y of [place] [facility] Sexual orientation Univer sity [facility] Alcohol intake 2023-02-05 2023-02-05 Lifetime University of 00:00:00 00:00:00 non-drinker [facility] (finding) Branch Exposure to 2022-09-08 2022-09-18 Not sure University SARS-CoV-2 (event) 00:00:00 15:45:00 [facility] History of Social 2022-09-18 2022-09-18 Univers ity of function 00:00:00 00:00:00 [facility] Cigarettes smoked 2022-07-24 2022-07-24 Univers ity of current (pack per 00:00:00 00:00:00 [facility] ) - Reported Branch Cigarette 2022-07-24 2022-07-24 University of pack-years 00:00:00 00:00:00 [facility] Tobacco use and 2022-07-24 2022-07-24 Smokeless Universit y of exposure 00:00:00 00:00:00 tobacco non-user [facility] Tobacco Comment 2021-10-27 2021-10-27 taking Chantix Unive rsity of 00:00:00 00:00:00 [facility] Sex Assigned At [birth year] Universit y of 00:00:00 00:00:00 [facility] Smoking Status Start Date Stop Date Source Ex-smoker 2022-07-24 00:00:00 2022-07-24 00:00:00 Universi ty [facility] Smokes tobacco daily 2021-10-27 00:00:00 Univers ity [facility] Medications Ordered Filled Start Stop Current Ordering Indication Dosage Frequency Signature Comments Components Source Medication Medication Date Date Medication? Clinician (SIG) Name Name doxylamine- Yes [id number] 2{tbl} Take 2 Univers pyridoxine, 8-29 tablets by it y of vit B6, 00:00: mouth at [place] (DICLEGI) 00 bedtime. Medic al 10-10 mg Branch per tablet doxylamine- Yes [id number] 2{tbl} Take 2 Univers pyridoxine, 8-29 tablets by it y of vit B6, 00:00: mouth at [place] (DICLEGIS) 00 bedtime. Medic al 10-10 mg Branch per tablet doxylamine- 2023-0 Yes [id number] 2{tbl} Take 2 Univers pyridoxine, 8-29 tablets by it y of vit B6, 00:00: mouth at [facility] 00 bedtime. Medic al 10-10 mg Branch per tablet doxylamine- 3-0 Yes [id number] 2{tbl} Take 2 Univers pyridoxine, 8-29 tablets by it y of vit B6, 00:00: mouth at [facility] 00 bedtime. Medic al 10-10 mg Branch per tablet doxylamine- 3-0 Yes [id number] 2{tbl} Take 2 Univers pyridoxine, 8-29 tablets by it y of vit B6, 00:00: mouth at [facility] 00 bedtime. Medic al 10-10 mg Branch per tablet doxylamine- 3-0 Yes [id number] 2{tbl} Take 2 Univers pyridoxine, 8-29 tablets by it y of vit B6, 00:00: mouth at [place] [address] bedtime. Medic al 10-10 mg Branch per tablet doxylamine- 3-0 Yes [id number] 2{tbl} Take 2 Univers pyridoxine, 8-29 tablets by it y of vit B6, 00:00: mouth at [place] [address] bedtime. Medic al 10-10 mg Branch per tablet doxylamine- 3-0 Yes [id number] 2{tbl} Take 2 Univers pyridoxine, 8-29 tablets by it y of vit B6, 00:00: mouth at [facility] 00 bedtime. Medic al 10-10 mg Branch per tablet doxylamine- 3-0 Yes [id number] 2{tbl} Take 2 Univers pyridoxine, 8-29 tablets by it y of vit B6, 00:00: mouth at [facility] 00 bedtime. Medic al 10-10 mg Branch per tablet doxylamine- 3-0 Yes [id number] 2{tbl} Take 2 Univers pyridoxine, 8-29 tablets by it y of vit B6, 00:00: mouth at [facility] 00 bedtime. Medic al 10-10 mg Branch per tablet doxylamine- 3-0 Yes [id number] 2{tbl} Take 2 Univers pyridoxine, 8-29 tablets by it y of vit B6, 00:00: mouth at [place] ([facility]) 00 bedtime. Medic al 10-10 mg Branch per tablet methylpheni 2023-0 Yes 5mg Take 1 Univ ers date HCl 5 8-03 tablet by ity of mg tablet 10:30: mouth in [place] [address] the Medical morning [place] and 1 tablet at noon and 1 tablet in the evening. methylpheni 2023-0 Yes 5mg Take 1 Univ ers date HCl 5 8-03 tablet by ity of mg tablet 10:30: mouth in [place] [address] the Medical morning [place] and 1 tablet at noon and 1 tablet in the evening. methylpheni 2023-0 Yes 5mg Take 1 Univ ers date HCl 5 8-03 tablet by ity of mg tablet 10:30: mouth in [place] [address] the [facility] morning [place] and 1 tablet at noon and 1 tablet in the evening. methylpheni 2023-0 Yes 5mg Take 1 Univ ers date HCl 5 8-03 tablet by ity of mg tablet 10:30: mouth in [place] [address] the Medical morning [place] and 1 tablet at noon and 1 tablet in the evening. methylpheni 2023-0 Yes 5mg Take 1 Univ ers date HCl 5 8-03 tablet by ity of mg tablet 10:30: mouth in [place] [address] the [facility] morning [place] and 1 tablet at noon and 1 tablet in the evening. methylpheni 2023-0 Yes 5mg Take 1 Univ ers date HCl 5 8-03 tablet by ity of mg tablet 10:30: mouth in [place] [address] the Medical morning [place] and 1 tablet at noon and 1 tablet in the evening. methylpheni 2023-0 Yes 5mg Take 1 Univ ers date HCl 5 8-03 tablet by ity of mg tablet 10:30: mouth in [place] [address] the Medical morning [place] and 1 tablet at noon and 1 tablet in the evening. methylpheni 2023-0 Yes 5mg Take 1 Univ ers date HCl 5 8-03 tablet by ity of mg tablet 10:30: mouth in [address] Medical morning [place] and 1 tablet at noon and 1 tablet in the evening. methylpheni 2023-0 Yes 5mg Take 1 Univ ers date HCl 5 8-03 tablet by ity of mg tablet 10:30: mouth in [address] morning Branch and 1 tablet at noon and 1 tablet in the evening. methylpheni 2023-0 Yes 5mg Take 1 Univ ers date HCl 5 8-03 tablet by ity of mg tablet 10:30: mouth in [place] [address] the [facility] Branch and 1 tablet at noon and 1 tablet in the evening. methylpheni 2023-0 Yes 5mg Take 1 Univ ers date HCl 5 8-03 tablet by ity of mg tablet 10:30: mouth in [address] and 1 tablet at noon and 1 tablet in the evening. methylpheni 2023-0 Yes 5mg Take 1 Univ ers date HCl 5 8-03 tablet by ity of mg tablet 10:30: mouth in [address] and 1 tablet at noon and 1 tablet in the evening. methylpheni 2023-0 Yes 5mg Take 1 Univ ers date HCl 5 8-03 tablet by ity of mg tablet 10:30: mouth in [address] and 1 tablet at noon and 1 tablet in the evening. methylpheni 2023-0 Yes 5mg Take 1 Univ ers date HCl 5 8-03 tablet by ity of mg tablet 10:30: mouth in [address] and 1 tablet at noon and 1 tablet in the evening. methylpheni 2023-0 Yes 5mg Take 1 Univ ers date HCl 5 8-03 tablet by ity of mg tablet 10:30: mouth in [address] and 1 tablet at noon and 1 tablet in the evening. methylpheni 2023-0 Yes 5mg Take 1 Univ ers date HCl 5 8-03 tablet by ity of mg tablet 10:30: mouth in [address] and 1 tablet at noon and 1 tablet in the evening. methylpheni 2023-0 Yes 5mg Take 1 Univ ers date HCl 5 8-03 tablet by ity of mg tablet 10:30: mouth in [address] and 1 tablet at noon and 1 tablet in the evening. methylpheni 2023-0 Yes 5mg Take 1 Univ ers date HCl 5 8-03 tablet by ity of mg tablet 10:30: [place] the Medical morning Branch and 1 tablet at noon and 1 tablet in the evening. methylpheni Yes 5mg Take 1 Univ ers date HCl 5 8-03 tablet by ity of mg tablet 10:30: [place] the Medical morning Branch and 1 tablet at noon and 1 tablet in the evening. DICLEGIS Yes [id number] TAKE 2 Uni vers 10-10 mg 7-06 TABLETS BY ity o f per tablet 00:00: MOUTH AT [place] 00 BEDTIME IF Medical NO RELIEF Branch ON DAY 3 TAKE 1 TAB. IN THE MORNING AND 2 TABS. AT BEDTIME, NO RELIEF DAY 4 TAKE 1 TAB. MORNING, 1 TAB. IN AFTERNOON AND 2 TABS. BEDTIME DICLEGIS Yes [id number] TAKE 2 Uni vers 10-10 mg 7-06 TABLETS BY ity o f per tablet 00:00: MOUTH AT [place] 00 BEDTIME IF Medical NO RELIEF Branch ON DAY 3 TAKE 1 TAB. IN THE MORNING AND 2 TABS. AT BEDTIME, NO RELIEF DAY 4 TAKE 1 TAB. MORNING, 1 TAB. IN AFTERNOON AND 2 TABS. BEDTIME DICLEGIS Yes [id number] TAKE 2 Uni vers 10-10 mg 7-06 TABLETS BY ity o f per tablet 00:00: MOUTH AT [place] 00 BEDTIME IF Medical NO RELIEF Branch ON DAY 3 TAKE 1 TAB. IN THE MORNING AND 2 TABS. AT BEDTIME, NO RELIEF DAY 4 TAKE 1 TAB. MORNING, 1 TAB. IN AFTERNOON AND 2 TABS. BEDTIME DICLEGIS Yes [id number] TAKE 2 Uni vers 10-10 mg 7-06 TABLETS BY ity o f per tablet 00:00: MOUTH AT [place] 00 BEDTIME IF Medical NO RELIEF Branch ON DAY 3 TAKE 1 TAB. IN THE MORNING AND 2 TABS. AT BEDTIME, NO RELIEF DAY 4 TAKE 1 TAB. MORNING, 1 TAB. IN AFTERNOON AND 2 TABS. BEDTIME DICLEGIS Yes [id number] TAKE 2 Uni vers 10-10 mg 7-06 TABLETS BY ity o f per tablet 00:00: MOUTH AT [place] 00 BEDTIME IF Medical NO RELIEF Branch ON DAY 3 TAKE 1 TAB. IN THE MORNING AND 2 TABS. AT BEDTIME, NO RELIEF DAY 4 TAKE 1 TAB. MORNING, 1 TAB. IN AFTERNOON AND 2 TABS. BEDTIME DICLEGIS Yes [id number] TAKE 2 Uni vers 10-10 mg 7-06 TABLETS BY ity o f per tablet 00:00: MOUTH AT [place] 00 BEDTIME IF Medical NO RELIEF Branch ON DAY 3 TAKE 1 TAB. IN THE MORNING AND 2 TABS. AT BEDTIME, NO RELIEF DAY 4 TAKE 1 TAB. MORNING, 1 TAB. IN AFTERNOON AND 2 TABS. BEDTIME DICLEGIS Yes [id number] TAKE 2 Uni vers 10-10 mg 7-06 TABLETS BY ity o f per tablet 00:00: MOUTH AT [place] 00 BEDTIME IF Medical NO RELIEF Branch ON DAY 3 TAKE 1 TAB. IN THE MORNING AND 2 TABS. AT BEDTIME, NO RELIEF DAY 4 TAKE 1 TAB. MORNING, 1 TAB. IN AFTERNOON AND 2 TABS. BEDTIME DICLEGIS Yes [id number] TAKE 2 Uni vers 10-10 mg 7-06 TABLETS BY ity o f per tablet 00:00: MOUTH AT [place] 00 BEDTIME IF Medical NO RELIEF Branch ON DAY 3 TAKE 1 TAB. IN THE MORNING AND 2 TABS. AT BEDTIME, NO RELIEF DAY 4 TAKE 1 TAB. MORNING, 1 TAB. IN AFTERNOON AND 2 TABS. BEDTIME DICLEGIS Yes [id number] TAKE 2 Uni vers 10-10 mg 7-06 TABLETS BY ity o f per tablet 00:00: MOUTH AT [place] 00 BEDTIME IF Medical NO RELIEF Branch ON DAY 3 TAKE 1 TAB. IN THE MORNING AND 2 TABS. AT BEDTIME, NO RELIEF DAY 4 TAKE 1 TAB. MORNING, 1 TAB. IN AFTERNOON AND 2 TABS. BEDTIME DICLEGIS Yes [id number] TAKE 2 Uni vers 10-10 mg 7-06 TABLETS BY ity o f per tablet 00:00: MOUTH AT [place] 00 BEDTIME IF Medical NO RELIEF Branch ON DAY 3 TAKE 1 TAB. IN THE MORNING AND 2 TABS. AT BEDTIME, NO RELIEF DAY 4 TAKE 1 TAB. MORNING, 1 TAB. IN AFTERNOON AND 2 TABS. BEDTIME DICLEGIS Yes [id number] TAKE 2 Uni vers 10-10 mg 7-06 TABLETS BY ity o f per tablet 00:00: MOUTH AT [place] 00 BEDTIME IF Medical NO RELIEF Branch ON DAY 3 TAKE 1 TAB. IN THE MORNING AND 2 TABS. AT BEDTIME, NO RELIEF DAY 4 TAKE 1 TAB. MORNING, 1 TAB. IN AFTERNOON AND 2 TABS. BEDTIME DICLEGIS 2022-0 Yes [id number] TAKE 2 Uni vers 10-10 mg 7-06 TABLETS BY ity o f per tablet 00:00: MOUTH AT [place] 00 BEDTIME IF Medical NO RELIEF Branch ON DAY 3 TAKE 1 TAB. IN THE MORNING AND 2 TABS. AT BEDTIME, NO RELIEF DAY 4 TAKE 1 TAB. MORNING, 1 TAB. IN AFTERNOON AND 2 TABS. BEDTIME DICLEGIS 0 Yes [id number] TAKE 2 Uni vers 10-10 mg 7-06 TABLETS BY ity o f per tablet 00:00: MOUTH AT [place] 00 BEDTIME IF Medical NO RELIEF Branch ON DAY 3 TAKE 1 TAB. IN THE MORNING AND 2 TABS. AT BEDTIME, NO RELIEF DAY 4 TAKE 1 TAB. MORNING, 1 TAB. IN AFTERNOON AND 2 TABS. BEDTIME DICLEGIS Yes [id number] TAKE 2 Uni vers 10-10 mg 7-06 TABLETS BY ity o f per tablet 00:00: MOUTH AT [place] 00 BEDTIME IF Medical NO RELIEF Branch ON DAY 3 TAKE 1 TAB. IN THE MORNING AND 2 TABS. AT BEDTIME, NO RELIEF DAY 4 TAKE 1 TAB. MORNING, 1 TAB. IN AFTERNOON AND 2 TABS. BEDTIME DICLEGIS Yes [id number] TAKE 2 Uni vers 10-10 mg 7-06 TABLETS BY ity o f per tablet 00:00: MOUTH AT [place] 00 BEDTIME IF Medical NO RELIEF Branch ON DAY 3 TAKE 1 TAB. IN THE MORNING AND 2 TABS. AT BEDTIME, NO RELIEF DAY 4 TAKE 1 TAB. MORNING, 1 TAB. IN AFTERNOON AND 2 TABS. BEDTIME DICLEGIS 0 Yes [id number] TAKE 2 Uni vers 10-10 mg 7-06 TABLETS BY ity o f per tablet 00:00: MOUTH AT [place] 00 BEDTIME IF Medical NO RELIEF Branch ON DAY 3 TAKE 1 TAB. IN THE MORNING AND 2 TABS. AT BEDTIME, NO RELIEF DAY 4 TAKE 1 TAB. MORNING, 1 TAB. IN AFTERNOON AND 2 TABS. BEDTIME D[place]LEGIS 2022-0 Yes [id number] TAKE 2 Uni vers 10-10 mg 7-06 TABLETS BY ity o f per tablet 00:00: MOUTH AT [place] 00 BEDTIME IF Medical NO RELIEF Branch ON DAY 3 TAKE 1 TAB. IN THE MORNING AND 2 TABS. AT BEDTIME, NO RELIEF DAY 4 TAKE 1 TAB. MORNING, 1 TAB. IN AFTERNOON AND 2 TABS. BEDTIME D[place]LEGIS 2022-0 Yes [id number] TAKE 2 Uni vers 10-10 mg 7-06 TABLETS BY ity o f per tablet 00:00: MOUTH AT [place] 00 BEDTIME IF Medical NO RELIEF Branch ON DAY 3 TAKE 1 TAB. IN THE MORNING AND 2 TABS. AT BEDTIME, NO RELIEF DAY 4 TAKE 1 TAB. MORNING, 1 TAB. IN AFTERNOON AND 2 TABS. BEDTIME DICLEGIS 0 Yes [id number] TAKE 2 Uni vers 10-10 mg 7-06 TABLETS BY ity o f per tablet 00:00: MOUTH AT [place] 00 BEDTIME IF Medical NO RELIEF Branch ON DAY 3 TAKE 1 TAB. IN THE MORNING AND 2 TABS. AT BEDTIME, NO RELIEF DAY 4 TAKE 1 TAB. MORNING, 1 TAB. IN AFTERNOON AND 2 TABS. BEDTIME DICLEGIS Yes [id number] TAKE 2 Uni vers 10-10 mg 7-06 TABLETS BY ity o f per tablet 00:00: MOUTH AT [place] 00 BEDTIME IF Medical NO RELIEF Branch ON DAY 3 TAKE 1 TAB. IN THE MORNING AND 2 TABS. AT BEDTIME, NO RELIEF DAY 4 TAKE 1 TAB. MORNING, 1 TAB. IN AFTERNOON AND 2 TABS. BEDTIME DICLEGIS 0 Yes [id number] TAKE 2 Uni vers 10-10 mg 7-06 TABLETS BY ity o f per tablet 00:00: MOUTH AT [place] 00 BEDTIME IF Medical NO RELIEF Branch ON DAY 3 TAKE 1 TAB. IN THE MORNING AND 2 TABS. AT BEDTIME, NO RELIEF DAY 4 TAKE 1 TAB. MORNING, 1 TAB. IN AFTERNOON AND 2 TABS. BEDTIME DICLEGIS 2022-0 Yes [id number] TAKE 2 Uni vers 10-10 mg 7-06 TABLETS BY ity o f per tablet 00:00: MOUTH AT [place] 00 BEDTIME IF Medical NO RELIEF Branch ON DAY 3 TAKE 1 TAB. IN THE MORNING AND 2 TABS. AT BEDTIME, NO RELIEF DAY 4 TAKE 1 TAB. MORNING, 1 TAB. IN AFTERNOON AND 2 TABS. BEDTIME DICLEGIS Yes [id number] TAKE 2 Uni vers 10-10 mg 7-06 TABLETS BY ity o f per tablet 00:00: MOUTH AT [place] 00 BEDTIME IF Medical NO RELIEF Branch ON DAY 3 TAKE 1 TAB. IN THE MORNING AND 2 TABS. AT BEDTIME, NO RELIEF DAY 4 TAKE 1 TAB. MORNING, 1 TAB. IN AFTERNOON AND 2 TABS. BEDTIME DICLEGIS Yes [id number] TAKE 2 Uni vers 10-10 mg 7-06 TABLETS BY ity o f per tablet 00:00: MOUTH AT [place] 00 BEDTIME IF Medical NO RELIEF Branch ON DAY 3 TAKE 1 TAB. IN THE MORNING AND 2 TABS. AT BEDTIME, NO RELIEF DAY 4 TAKE 1 TAB. MORNING, 1 TAB. IN AFTERNOON AND 2 TABS. BEDTIME DICLEGIS Yes [id number] TAKE 2 Uni vers 10-10 mg 7-06 TABLETS BY ity o f per tablet 00:00: MOUTH AT [place] 00 BEDTIME IF Medical NO RELIEF Branch ON DAY 3 TAKE 1 TAB. IN THE MORNING AND 2 TABS. AT BEDTIME, NO RELIEF DAY 4 TAKE 1 TAB. MORNING, 1 TAB. IN AFTERNOON AND 2 TABS. BEDTIME DICLEGIS Yes [id number] TAKE 2 Uni vers 10-10 mg 7-06 TABLETS BY ity o f per tablet 00:00: MOUTH AT [place] 00 BEDTIME IF Medical NO RELIEF Branch ON DAY 3 TAKE 1 TAB. IN THE MORNING AND 2 TABS. AT BEDTIME, NO RELIEF DAY 4 TAKE 1 TAB. MORNING, 1 TAB. IN AFTERNOON AND 2 TABS. BEDTIME DICLEGIS Yes [id number] TAKE 2 Uni vers 10-10 mg 7-06 TABLETS BY ity o f per tablet 00:00: MOUTH AT [place] 00 BEDTIME IF Medical NO RELIEF Branch ON DAY 3 TAKE 1 TAB. IN THE MORNING AND 2 TABS. AT BEDTIME, NO RELIEF DAY 4 TAKE 1 TAB. MORNING, 1 TAB. IN AFTERNOON AND 2 TABS. BEDTIME DICLEGIS Yes [id number] TAKE 2 Uni vers 10-10 mg 7-06 TABLETS BY ity o f per tablet 00:00: MOUTH AT [place] 00 BEDTIME IF Medical NO RELIEF Branch ON DAY 3 TAKE 1 TAB. IN THE MORNING AND 2 TABS. AT BEDTIME, NO RELIEF DAY 4 TAKE 1 TAB. MORNING, 1 TAB. IN AFTERNOON AND 2 TABS. BEDTIME DICLEGIS 0 Yes [id number] TAKE 2 Uni vers 10-10 mg 7-06 TABLETS BY ity o f per tablet 00:00: MOUTH AT [place] 00 BEDTIME IF Medical NO RELIEF Branch ON DAY 3 TAKE 1 TAB. IN THE MORNING AND 2 TABS. AT BEDTIME, NO RELIEF DAY 4 TAKE 1 TAB. MORNING, 1 TAB. IN AFTERNOON AND 2 TABS. BEDTIME DICLEGIS Yes [id number] TAKE 2 Uni vers 10-10 mg 7-06 TABLETS BY ity o f per tablet 00:00: MOUTH AT [place] 00 BEDTIME IF Medical NO RELIEF Branch ON DAY 3 TAKE 1 TAB. IN THE MORNING AND 2 TABS. AT BEDTIME, NO RELIEF DAY 4 TAKE 1 TAB. MORNING, 1 TAB. IN AFTERNOON AND 2 TABS. BEDTIME DICLEGIS Yes [id number] TAKE 2 Uni vers 10-10 mg 7-06 TABLETS BY ity o f per tablet 00:00: MOUTH AT [place] 00 BEDTIME IF Medical NO RELIEF Branch ON DAY 3 TAKE 1 TAB. IN THE MORNING AND 2 TABS. AT BEDTIME, NO RELIEF DAY 4 TAKE 1 TAB. MORNING, 1 TAB. IN AFTERNOON AND 2 TABS. BEDTIME DICLEGIS Yes [id number] TAKE 2 Uni vers 10-10 mg 7-06 TABLETS BY ity o f per tablet 00:00: MOUTH AT [place] 00 BEDTIME IF Medical NO RELIEF Branch ON DAY 3 TAKE 1 TAB. IN THE MORNING AND 2 TABS. AT BEDTIME, NO RELIEF DAY 4 TAKE 1 TAB. MORNING, 1 TAB. IN AFTERNOON AND 2 TABS. BEDTIME DICLEGIS Yes [id number] TAKE 2 Uni vers 10-10 mg 7-06 TABLETS BY ity o f per tablet 00:00: MOUTH AT [place] 00 BEDTIME IF Medical NO RELIEF Branch ON DAY 3 TAKE 1 TAB. IN THE MORNING AND 2 TABS. AT BEDTIME, NO RELIEF DAY 4 TAKE 1 TAB. MORNING, 1 TAB. IN AFTERNOON AND 2 TABS. BEDTIME metroNIDAZO 0 2022- No [id number] 500mg Take 1 Univers LE 500 mg 09-18 tablet by ity of tablet 00:00: 04:59 mouth in [place] 00 :00 the Medical morning Branch and 1 tablet in the evening. Do all this for 7 days. enoxaparin 2022- No [id number] 40mg inject 0.4 Univers (LOVENOX) 4-17 10-15 mL under ity o f 40 mg/0.4 00:00: 04:59 the skin [place] mL 00 :00 in the Medical injection morning Branch for 180 days. enoxaparin 2022- No [id number] 40mg inject 0.4 Univers (LOVENOX) 4-17 10-15 mL under ity o f 40 mg/0.4 00:00: 04:59 the skin [place] mL 00 :00 in the Medical injection morning Branch for 180 days. enoxaparin 2022-2022- No [id number] 40mg inject 0.4 [facility] (LOVENOX) 4-17 10-15 mL under ity o f 40 mg/0.4 00:00: 04:59 the skin [place] as mL 00 :00 in the Medical injection morning Branch for 180 days. enoxaparin 2022-2022- No [id number] 40mg inject 0.4 [facility] (LOVENOX) 4-17 10-15 mL under ity o f 40 mg/0.4 00:00: 04:59 the skin [place] as mL 00 :00 in the Medical injection morning Branch for 180 days. enoxaparin 2022- No [id number] 40mg inject 0.4 [facility] (LOVENOX) 4-17 10-15 mL under ity o f 40 mg/0.4 00:00: 04:59 the skin [place] as mL 00 :00 in the Medical injection morning Branch for 180 days. enoxaparin 2022-2022- No [id number] 40mg inject 0.4 [facility] (LOVENOX) 4-17 10-15 mL under ity o f 40 mg/0.4 00:00: 04:59 the skin [place] as mL 00 :00 in the Medical injection morning Branch for 180 days. enoxaparin 2022-2022- No [id number] 40mg inject 0.4 [facility] (LOVENOX) 4-17 10-15 mL under ity o f 40 mg/0.4 00:00: 04:59 the skin [place] as mL 00 :00 in the Medical injection morning Branch for 180 days. enoxaparin 2022-2022- No [id number] 40mg inject 0.4 [facility] (LOVENOX) 4-17 10-15 mL under ity o f 40 mg/0.4 00:00: 04:59 the skin [place] as mL 00 :00 in the Medical injection morning Branch for 180 days. enoxaparin 2022- No [id number] 40mg inject 0.4 [facility] (LOVENOX) 4-17 10-15 mL under ity o f 40 mg/0.4 00:00: 04:59 the skin [place] as mL 00 :00 in the Medical injection morning Branch for 180 days. enoxaparin 2022- No [id number] 40mg inject 0.4 [facility] (LOVENOX) 4-17 10-15 mL under ity o f 40 mg/0.4 00:00: 04:59 the skin [place] as mL 00 :00 in the Medical injection morning Branch for 180 days. enoxaparin 2022-2022- No [id number] 40mg inject 0.4 [facility] (LOVENOX) 4-17 10-15 mL under ity o f 40 mg/0.4 00:00: 04:59 the skin [place] as mL 00 :00 in the Medical injection morning Branch for 180 days. enoxaparin 2022- No [id number] 40mg inject 0.4 [facility] (LOVENOX) 4-17 10-15 mL under ity o f 40 mg/0.4 00:00: 04:59 the skin [place] mL 00 :00 in the Medical injection morning Branch for 180 days. enoxaparin 2022-2022- No [id number] 40mg inject 0.4 [facility] (LOVENOX) 4-17 10-15 mL under ity o f 40 mg/0.4 00:00: 04:59 the skin [place] as mL 00 :00 in the Medical injection morning Branch for 180 days. enoxaparin 2022-3- No [id number] 40mg inject 0.4 [facility] (LOVENOX) 4-17 10-15 mL under ity o f 40 mg/0.4 00:00: 04:59 the skin [place] as mL 00 :00 in the Medical injection morning Branch for 180 days. enoxaparin 2022-2022- No [id number] 40mg inject 0.4 [facility] (LOVENOX) 4-17 10-15 mL under ity o f 40 mg/0.4 00:00: 04:59 the skin [place] as mL 00 :00 in the Medical injection morning Branch for 180 days. enoxaparin 2022-2022- No [id number] 40mg inject 0.4 [facility] (LOVENOX) 4-17 10-15 mL under ity o f 40 mg/0.4 00:00: 04:59 the skin [place] as mL 00 :00 in the Medical injection morning Branch for 180 days. enoxaparin 2022-2022- No [id number] 40mg inject 0.4 [facility] (LOVENOX) 4-17 10-15 mL under ity o f 40 mg/0.4 00:00: 04:59 the skin [place] as mL 00 :00 in the Medical injection morning Branch for 180 days. enoxaparin 2022-2022- No [id number] 40mg inject 0.4 [facility] (LOVENOX) 4-17 10-15 mL under ity o f 40 mg/0.4 00:00: 04:59 the skin [place] as mL 00 :00 in the Medical injection morning Branch for 180 days. enoxaparin 2022-2022- No [id number] 40mg inject 0.4 [facility] (LOVENOX) 4-17 10-15 mL under ity o f 40 mg/0.4 00:00: 04:59 the skin [place] as mL 00 :00 in the Medical injection morning Branch for 180 days. enoxaparin 2022-2022- No [id number] 40mg inject 0.4 [facility] (LOVENOX) 4-17 10-15 mL under ity o f 40 mg/0.4 00:00: 04:59 the skin [place] as mL 00 :00 in the Medical injection morning Branch for 180 days. enoxaparin 2022-2022- No [id number] 40mg inject 0.4 [facility] (LOVENOX) 4-17 10-15 mL under ity o f 40 mg/0.4 00:00: 04:59 the skin [place] as mL 00 :00 in the Medical injection morning Branch for 180 days. enoxaparin 2022-2022- No [id number] 40mg inject 0.4 [facility] (LOVENOX) 4-17 10-15 mL under ity o f 40 mg/0.4 00:00: 04:59 the skin [place] mL 00 :00 in the Medical injection morning Branch for 180 days. enoxaparin 2022-2022- No [id number] 40mg inject 0.4 [facility] (LOVENOX) 4-17 10-15 mL under ity o f 40 mg/0.4 00:00: 04:59 the skin [place] mL 00 :00 in the Medical injection morning Branch for 180 days. enoxaparin 2022-2022- No [id number] 40mg inject 0.4 [facility] (LOVENOX) 4-17 10-15 mL under ity o f 40 mg/0.4 00:00: 04:59 the skin [place] as mL 00 :00 in the Medical injection morning Branch for 180 days. enoxaparin 2022-2022- No [id number] 40mg inject 0.4 [facility] (LOVENOX) 4-17 10-15 mL under ity o f 40 mg/0.4 00:00: 04:59 the skin [place] as mL 00 :00 in the Medical injection morning Branch for 180 days. enoxaparin 2022-2022- No [id number] 40mg inject 0.4 [facility] (LOVENOX) 4-17 10-15 mL under ity o f 40 mg/0.4 00:00: 04:59 the skin [place] as mL 00 :00 in the Medical injection morning Branch for 180 days. enoxaparin 2022-2022- No [id number] 40mg inject 0.4 [facility] (LOVENOX) 4-17 10-15 mL under ity o f 40 mg/0.4 00:00: 04:59 the skin [place] mL 00 :00 in the Medical injection morning Branch for 180 days. enoxaparin 2022-2022- No [id number] 40mg inject 0.4 [facility] (LOVENOX) 4-17 10-15 mL under ity o f 40 mg/0.4 00:00: 04:59 the skin [place] as mL 00 :00 in the Medical injection morning Branch for 180 days. enoxaparin 2022-2022- No [id number] 40mg inject 0.4 [facility] (LOVENOX) 4-17 10-15 mL under ity o f 40 mg/0.4 00:00: 04:59 the skin [place] as mL 00 :00 in the Medical injection morning Branch for 180 days. enoxaparin 2022-2022- No [id number] 40mg inject 0.4 [facility] (LOVENOX) 4-17 10-15 mL under ity o f 40 mg/0.4 00:00: 04:59 the skin [place] mL 00 :00 in the Medical injection morning Branch for 180 days. enoxaparin 2022-2022- No [id number] 40mg inject 0.4 [facility] (LOVENOX) 4-17 10-15 mL under ity o f 40 mg/0.4 00:00: 04:59 the skin [place] mL 00 :00 in the Medical injection morning Branch for 180 days. enoxaparin 2022-2022- No [id number] 40mg inject 0.4 [facility] (LOVENOX) 4-17 10-15 mL under ity o f 40 mg/0.4 00:00: 04:59 the skin [place] mL 00 :00 in the Medical injection morning Branch for 180 days. enoxaparin 2022-2022- No [id number] 40mg inject 0.4 [facility] (LOVENOX) 4-17 10-15 mL under ity o f 40 mg/0.4 00:00: 04:59 the skin [place] as mL 00 :00 in the Medical injection morning Branch for 180 days. enoxaparin 2022-2022- No [id number] 40mg inject 0.4 [facility] (LOVENOX) 4-17 10-15 mL under ity o f 40 mg/0.4 00:00: 04:59 the skin [place] as mL 00 :00 in the Medical injection morning Branch for 180 days. enoxaparin 2022-2022- No [id number] 40mg inject 0.4 [facility] (LOVENOX) 4-17 10-15 mL under ity o f 40 mg/0.4 00:00: 04:59 the skin [place] as mL 00 :00 in the Medical injection morning Branch for 180 days. enoxaparin 2023-0 2023- No [id number] 40mg inject 0.4 [facility] (LOVENOX) 4-17 10-15 mL under ity o f 40 mg/0.4 00:00: 04:59 the skin [place] as mL 00 :00 in the Medical injection morning Branch for 180 days. enoxaparin 2022- No [id number] 40mg inject 0.4 [facility] (LOVENOX) 4-17 10-15 mL under ity o f 40 mg/0.4 00:00: 04:59 the skin [place] as mL 00 :00 in the Medical injection morning Branch for 180 days. enoxaparin 2022- No [id number] 40mg inject 0.4 [facility] (LOVENOX) 4-17 10-15 mL under ity o f 40 mg/0.4 00:00: 04:59 the skin [place] as mL 00 :00 in the Medical injection morning Branch for 180 days. enoxaparin 2022- No [id number] 40mg inject 0.4 [facility] (LOVENOX) 4-17 10-15 mL under ity o f 40 mg/0.4 00:00: 04:59 the skin [place] as mL 00 :00 in the Medical injection morning Branch for 180 days. enoxaparin 2022- No [id number] 40mg inject 0.4 [facility] (LOVENOX) 4-17 10-15 mL under ity o f 40 mg/0.4 00:00: 04:59 the skin [place] as mL 00 :00 in the Medical injection morning Branch for 180 days. enoxaparin 2022- No [id number] 40mg inject 0.4 [facility] (LOVENOX) 4-17 10-15 mL under ity o f 40 mg/0.4 00:00: 04:59 the skin [place] as mL 00 :00 in the Medical injection morning Branch for 180 days. enoxaparin 2022- No [id number] 40mg inject 0.4 [facility] (LOVENOX) 4-17 10-15 mL under ity o f 40 mg/0.4 00:00: 04:59 the skin [place] as mL 00 :00 in the Medical injection morning Branch for 180 days. enoxaparin 2022022- No [id number] 40mg inject 0.4 [facility] (LOVENOX) 4-17 10-15 mL under ity o f 40 mg/0.4 00:00: 04:59 the skin [place] mL 00 :00 in the Medical injection morning Branch for 180 days. enoxaparin 2022- No [id number] 40mg inject 0.4 [facility] (LOVENOX) 4-17 10-15 mL under ity o f 40 mg/0.4 00:00: 04:59 the skin [place] as mL 00 :00 in the Medical injection morning Branch for 180 days. 2022- No Take by [facility] rs vit 4-14 04-14 mouth. ity of no.124/iron 15:09: 00:00 [place] /folic 24 :00 Medical ( Branch VITAMIN ORAL) Yes [id number] 1{tbl} Take 1 [facility] vitamin 4-14 tablet by ity of w/FA tablet 00:00: mouth in [place] 00 the Medical morning. Branch Yes [id number] 1{tbl} Take 1 [facility] vitamin 4-14 tablet by ity of w/FA tablet 00:00: mouth in [place] 00 the Medical morning. Branch Yes [id number] 1{tbl} Take 1 [facility] vitamin 4-14 tablet by ity of w/FA tablet 00:00: mouth in [place] 00 the Medical morning. Branch Yes [id number] 1{tbl} Take 1 [facility] vitamin 4-14 tablet by ity of w/FA tablet 00:00: mouth in [place] 00 the Medical morning. Branch Yes [id number] 1{tbl} Take 1 [facility] vitamin 4-14 tablet by ity of w/FA tablet 00:00: mouth in [place] 00 the Medical morning. Branch Yes [id number] 1{tbl} Take 1 [facility] vitamin 4-14 tablet by ity of w/FA tablet 00:00: mouth in [place] 00 the Medical morning. Branch Yes [id number] 1{tbl} Take 1 [facility] vitamin 4-14 tablet by ity of w/FA tablet 00:00: mouth in [place] 00 the Medical morning. [facility] Yes [id number] 1{tbl} Take 1 U nivers vitamin 4-14 tablet by ity of w/FA tablet 00:00: mouth in [place] 00 the Medical morning. [facility] Yes [id number] 1{tbl} Take 1 [facility] vitamin 4-14 tablet by ity of w/FA tablet 00:00: mouth in [place] 00 the Medical morning. [facility] Yes [id number] 1{tbl} Take 1 [facility]ivers vitamin 4-14 tablet by ity of w/FA tablet 00:00: mouth in [place] 00 the Medical morning. [facility] Yes [id number] 1{tbl} Take 1 [facility] vitamin 4-14 tablet by ity of w/FA tablet 00:00: mouth in [place] 00 the Medical morning. [facility] Yes [id number] 1{tbl} Take 1 [facility] vitamin 4-14 tablet by ity of w/FA tablet 00:00: mouth in [place] 00 the Medical morning. [facility] Yes [id number] 1{tbl} Take 1 [facility] vitamin 4-14 tablet by ity of w/FA tablet 00:00: mouth in [place] 00 the Medical morning. [facility] Yes [id number] 1{tbl} Take 1 [facility] vitamin 4-14 tablet by ity of w/FA tablet 00:00: mouth in [place] 00 the Medical morning. [facility] Yes [id number] 1{tbl} Take 1 U [facility]ivers vitamin 4-14 tablet by ity of w/FA tablet 00:00: mouth in [place] 00 the Medical morning. [facility] Yes [id number] 1{tbl} Take 1 U [facility]ivers vitamin 4-14 tablet by ity of w/FA tablet 00:00: mouth in [place] 00 the Medical morning. [facility] Yes [id number] 1{tbl} Take 1 U nivers vitamin 4-14 tablet by ity of w/FA tablet 00:00: mouth in [place] 00 the Medical morning. [facility] Yes [id number] 1{tbl} Take 1 [facility]ivers vitamin 4-14 tablet by ity of w/FA tablet 00:00: mouth in [place] 00 the Medical morning. Branch 0 Yes [id number] 1{tbl} Take 1 [facility] vitamin 4-14 tablet by ity of w/FA tablet 00:00: mouth in [place] 00 the Medical morning. Branch 0 Yes [id number] 1{tbl} Take 1 [facility]ivers vitamin 4-14 tablet by ity of w/FA tablet 00:00: mouth in [place] 00 the Medical morning. Branch Yes [id number] 1{tbl} Take 1 [facility] vitamin 4-14 tablet by ity of w/FA tablet 00:00: mouth in [place] 00 the Medical morning. Branch Yes [id number] 1{tbl} Take 1 [facility] vitamin 4-14 tablet by ity of w/FA tablet 00:00: mouth in [place] 00 the Medical morning. Branch doxylamine- Yes [id number] 2{tbl} Take 2 [facility] pyridoxine, 4-14 tablets by it y of vit B6, 00:00: mouth at [facility]) 00 bedtime. Medic al 10-10 mg Branch per tablet doxylamine- Yes [id number] 2{tbl} Take 2 [facility] pyridoxine, 4-14 tablets by it y of vit B6, [facility] Medic [facility] 10-10 mg Branch per tablet doxylamine- Yes [id number] 2{tbl} Take 2 [facility] pyridoxine, 4-14 tablets by it y of vit B6, 00:00: mouth [facility] [place] [facility] bed[facility]. Medic al 10-10 mg Branch per tablet Yes [id number] 1{tbl} Take 1 U nivers vitamin 4-14 tablet by ity of w/FA tablet 00:00: mouth in [place] 00 the Medical morning. Branch doxylamine- Yes [id number] 2{tbl} Take 2 [facility] pyridoxine, 4-14 tablets by it y of vit B6, 00:00: mouth [facility] [place] [facility] bed[facility]. Medic al 10-10 mg Branch per tablet Yes [id number] 1{tbl} Take 1 U nivers vitamin 4-14 tablet by ity of w/FA tablet 00:00: mouth in [place] 00 the Medical morning. Branch doxylamine- Yes [id number] 2{tbl} Take 2 [facility] pyridoxine, 4-14 tablets by it y of vit B6, 00:00: mouth at [place] ([facility]) 00 bedtime. Medic al 10-10 mg Branch per tablet Yes [id number] 1{tbl} Take 1 U nivers vitamin 4-14 tablet by ity of w/FA tablet 00:00: mouth in [place] 00 the Medical morning. Branch doxylamine- Yes [id number] 2{tbl} Take 2 [facility] pyridoxine, 4-14 tablets by it y of vit B6, 00:00: mouth at [place] ([facility]) 00 bedtime. Medic al 10-10 mg Branch per tablet Yes [id number] 1{tbl} Take 1 U nivers vitamin 4-14 tablet by ity of w/FA tablet 00:00: mouth in [place] 00 the Medical morning. Branch doxylamine- Yes [id number] 2{tbl} Take 2 [facility] pyridoxine, 4-14 tablets by it y of vit B6, 00:00: mouth at [place] ([facility]) 00 bedtime. Medic al 10-10 mg Branch per tablet Yes [id number] 1{tbl} Take 1 U nivers vitamin 4-14 tablet by ity of w/FA tablet 00:00: mouth in [place] 00 the Medical morning. Branch doxylamine- Yes [id number] 2{tbl} Take 2 [facility] pyridoxine, 4-14 tablets by it y of vit B6, 00:00: mouth at [place] [facility] bed[facility]. Medic al 10-10 mg Branch per tablet Yes [id number] 1{tbl} Take 1 U nivers vitamin 4-14 tablet by ity of w/FA tablet 00:00: mouth in [place] 00 the Medical morning. Branch doxylamine- Yes [id number] 2{tbl} Take 2 [facility] pyridoxine, 4-14 tablets by it y of vit B6, 00:00: mouth at [place] ([facility]) 00 bedtime. Medic al 10-10 mg Branch per tablet Yes [id number] 1{tbl} Take 1 U nivers vitamin 4-14 tablet by ity of w/FA tablet 00:00: mouth in [place] 00 the Medical morning. Branch doxylamine- Yes [id number] 2{tbl} Take 2 [facility] pyridoxine, 4-14 tablets by it y of vit B6, 00:00: mouth at [place] ([facility]) 00 bedtime. Medic al 10-10 mg Branch per tablet Yes [id number] 1{tbl} Take 1 U nivers vitamin 4-14 tablet by ity of w/FA tablet 00:00: mouth in [place] 00 the Medical morning. Branch doxylamine- Yes [id number] 2{tbl} Take 2 [facility] pyridoxine, 4-14 tablets by it y of vit B6, 00:00: mouth at [place] ([facility]) 00 bedtime. Medic al 10-10 mg Branch per tablet Yes [id number] 1{tbl} Take 1 U nivers vitamin 4-14 tablet by ity of w/FA tablet 00:00: mouth in [place] 00 the Medical morning. Branch doxylamine- Yes [id number] 2{tbl} Take 2 [facility] pyridoxine, 4-14 tablets by it y of vit B6, 00:00: mouth at [place] ([facility]) 00 bedtime. Medic al 10-10 mg Branch per tablet Yes [id number] 1{tbl} Take 1 U nivers vitamin 4-14 tablet by ity of w/FA tablet 00:00: mouth in [place] 00 the Medical morning. Branch doxylamine- Yes [id number] 2{tbl} Take 2 [facility] pyridoxine, 4-14 tablets by it y of vit B6, 00:00: mouth at [place] [facility] bed[facility]. Medic al 10-10 mg Branch per tablet Yes [id number] 1{tbl} Take 1 U nivers vitamin 4-14 tablet by ity of w/FA tablet 00:00: mouth in [place] 00 the Medical morning. [facility] Yes [id number] 1{tbl} Take 1 U nivers vitamin 4-14 tablet by ity of w/FA tablet 00:00: mouth in [place] 00 the Medical morning. [facility] Yes [id number] 1{tbl} Take 1 U nivers vitamin 4-14 tablet by ity of w/FA tablet 00:00: mouth in [place] 00 the Medical morning. Branch [facility] Yes [id number] 1{tbl} Take 1 U nivers vitamin 4-14 tablet by ity of w/FA tablet 00:00: mouth in [place] 00 the Medical morning. [facility] Yes [id number] 1{tbl} Take 1 U nivers vitamin 4-14 tablet by ity of w/FA tablet 00:00: mouth in [place] 00 the Medical morning. [facility] Yes [id number] 1{tbl} Take 1 U nivers vitamin 4-14 tablet by ity of w/FA tablet 00:00: mouth in [place] 00 the Medical morning. [facility] Yes [id number] 1{tbl} Take 1 U nivers vitamin 4-14 tablet by ity of w/FA tablet 00:00: mouth in [place] 00 the Medical morning. [facility] Yes [id number] 1{tbl} Take 1 U nivers vitamin 4-14 tablet by ity of w/FA tablet 00:00: mouth in [place] 00 the Medical morning. [facility] Yes [id number] 1{tbl} Take 1 U nivers vitamin 4-14 tablet by ity of w/FA tablet 00:00: mouth in [place] 00 the Medical morning. [facility] Yes [id number] 1{tbl} Take 1 U nivers vitamin 4-14 tablet by ity of w/FA tablet 00:00: mouth in [place] 00 the Medical morning. [facility] Yes [id number] 1{tbl} Take 1 U nivers vitamin 4-14 tablet by ity of w/FA tablet 00:00: mouth in [place] 00 the Medical morning. [facility] Yes [id number] 1{tbl} Take 1 U nivers vitamin 4-14 tablet by ity of w/FA tablet 00:00: mouth in [place] 00 the Medical morning. Branch Yes [id number] 1{tbl} Take 1 [facility] nivers vitamin 4-14 tablet by ity of w/FA tablet 00:00: mouth in [place] 00 the Medical morning. Branch 0 Yes [id number] 1{tbl} Take 1 [facility] nivers vitamin 4-14 tablet by ity of w/FA tablet 00:00: mouth in [place] 00 the Medical morning. Branch doxylamine- 202- No [id number] 2{tbl} Take 2 [facility] pyridoxine, 4-14 07-06 tablets by i ty of vit B6, 00:00: 00:00 mouth at [place] ([facility]) 00 :00 bedtime. Medic al 10-10 mg Branch per tablet proMETHazin Yes [id number] 25mg Take 1 [facility] e 25 mg 4-10 tablet by ity of tablet 00:00: mouth [place] 00 every 6 Medical (six) Branch hours as needed for Nausea and Vomiting (N/V). Yes [id number] 1{tbl} Take 1 U nivers vitamin 4-10 tablet by ity of w/FA tablet 00:00: mouth in [place] 00 the Medical morning. Branch proMETHazin Yes [id number] 25mg Take 1 [facility] e 25 mg 4-10 tablet by ity of tablet 00:00: mouth [place] 00 every 6 Medical (six) Branch hours as needed for Nausea and Vomiting (N/V). Yes [id number] 1{tbl} Take 1 U nivers vitamin 4-10 tablet by ity of w/FA tablet 00:00: mouth in [place] 00 the Medical morning. Branch proMETHazin Yes [id number] 25mg Take 1 [facility] e 25 mg 4-10 tablet by ity of tablet 00:00: mouth [place] 00 every 6 Medical (six) Branch hours as needed for Nausea and Vomiting (N/V). Yes [id number] 1{tbl} Take 1 U nivers vitamin 4-10 tablet by ity of w/FA tablet 00:00: mouth in [place] 00 the Medical morning. Branch proMETHazin 2022-0 Yes [id number] 25mg Take 1 [facility] e 25 mg 4-10 tablet by ity of tablet 00:00: mouth [place] 00 every 6 Medical (six) Branch hours as needed for Nausea and Vomiting (N/V). 2022-0 Yes [id number] 1{tbl} Take 1 U nivers vitamin 4-10 tablet by ity of w/FA tablet 00:00: mouth in [place] 00 the Medical morning. Branch proMETHazin 2022-0 Yes [id number] 25mg Take 1 [facility] e 25 mg 4-10 tablet by ity of tablet 00:00: mouth [place] 00 every 6 Medical (six) Branch hours as needed for Nausea and Vomiting (N/V). 2022-0 Yes [id number] 1{tbl} Take 1 U nivers vitamin 4-10 tablet by ity of w/FA tablet 00:00: mouth in [place] 00 the Medical morning. Branch proMETHazin 2022-0 Yes [id number] 25mg Take 1 [facility] e 25 mg 4-10 tablet by ity of tablet 00:00: mouth [place] 00 every 6 Medical (six) Branch hours as needed for Nausea and Vomiting (N/V). proMETHazin 2022-0 Yes [id number] 25mg Take 1 [facility] e 25 mg 4-10 tablet by ity of tablet 00:00: mouth [place] 00 every 6 Medical (six) Branch hours as needed for Nausea and Vomiting (N/V). proMETHazin 2022-0 Yes [id number] 25mg Take 1 [facility] e 25 mg 4-10 tablet by ity of tablet 00:00: mouth [place] 00 every 6 Medical (six) Branch hours as needed for Nausea and Vomiting (N/V). proMETHazin 2022-0 Yes [id number] 25mg Take 1 [facility] e 25 mg 4-10 tablet by ity of tablet 00:00: mouth [place] 00 every 6 Medical (six) Branch hours as needed for Nausea and Vomiting (N/V). proMETHazin 2022-0 Yes [id number] 25mg Take 1 [facility] e 25 mg 4-10 tablet by ity of tablet 00:00: mouth [place] 00 every 6 Medical (six) Branch hours as needed for Nausea and Vomiting (N/V). proMETHazin 2023-0 Yes [id number] 25mg Take 1 [facility] e 25 mg 4-10 tablet by ity of tablet 00:00: mouth [place] 00 every 6 Medical (six) Branch hours as needed for Nausea and Vomiting (N/V). proMETHazin Yes [id number] 25mg Take 1 [facility] e 25 mg 4-10 tablet by ity of tablet 00:00: mouth [place] 00 every 6 Medical (six) Branch hours as needed for Nausea and Vomiting (N/V). proMETHazin Yes [id number] 25mg Take 1 [facility] e 25 mg 4-10 tablet by ity of tablet 00:00: mouth [place] 00 every 6 Medical (six) Branch hours as needed for Nausea and Vomiting (N/V). proMETHazin 2022- No [id number] 25mg Take 1 [facility] e 25 mg 4-10 06-05 tablet by ity of tablet 00:00: 00:00 mouth [place] 00 :00 every 6 Medical (six) Branch hours as needed for Nausea and Vomiting (N/V). 2022- No [id number] 1{tbl} Take 1 [facility] vitamin 4-10 04-14 tablet by ity of w/FA tablet 00:00: 00:00 mouth [place] 00 :00 the Medical morning. Branch miSOPROStoL 2021-04- No [id number] 800ug [facility] (CYTOTEC) 06-12 ity of tablet 800 22:30: 22:26 [place] mcg 00 :00 [facility] miSOPROStoL 2021-04- No [id number] 800ug 800 mcg, Univers (CYTOTEC) 06-12 Oral, ity of tablet 800 22:30: 22:26 ONCE, 1 [place] mcg 00 :00 dose, On [facility] Branch 04/11/22 at 1630, Routine miSOPROStoL 2021-04- No [id number] 800ug [facility] (CYTOTEC) 06-12 ity of tablet 800 22:30: 22:26 [place] mcg 00 :00 [facility] miSOPROStoL 2021-04- No [id number] 800ug 800 mcg, Univers (CYTOTEC) 06-12 Oral, ity of tablet 800 22:30: 22:26 ONCE, 1 [place] mcg 00 :00 dose, On Medical [facility] Branch 04/11/22 at 1630, Routine NaCl 0.9% 2021-04- No 1000mL at 999 Uni vers (NS) bolus 05-25 12 mL/hr, ity of infusion 01:00: 00:55 1,000 mL, [place] 1,000 mL 00 :00 IV Medical Infusion, Branch ONCE, 1 dose, On [place] 03/23/22 at 1900, STAT iopamidol 2021-04- No [id number] 65mL 65 mL, U nivers (ISOVUE 05-24 Intravenou ity o f 370-500 mL) 22:28: 22:29 s, ONCE, 1 [place] injection 00 :00 dose, On Medica l 65 mL [place] Branch 03/23/22 at 1645, Routine ondansetron 2021-04 Yes [id number] 8mg Take 1 [facility] 8 mg 1-20 tablet by ity of disintegrat 00:00: mouth [place] ing tablet 00 every 8 Medica l (eight) Branch hours as needed for Nausea and Vomiting (N/V). ondansetron 2021-04 Yes [id number] 8mg Take 1 [facility] 8 mg 1-20 tablet by ity of disintegrat 00:00: mouth [place] ing tablet 00 every 8 Medica l (eight) Branch hours as needed for Nausea and Vomiting (N/V). ondansetron 2021-04 Yes [id number] 8mg Take 1 [facility] 8 mg 1-20 tablet by ity of disintegrat 00:00: mouth [place] ing tablet 00 every 8 Medica l (eight) Branch hours as needed for Nausea and Vomiting (N/V). ondansetron 2021-04 Yes [id number] 8mg Take 1 [facility] 8 mg 1-20 tablet by ity of disintegrat 00:00: mouth [place] ing tablet 00 every 8 Medica l (eight) Branch hours as needed for Nausea and Vomiting (N/V). ondansetron 2021-04 Yes [id number] 8mg Take 1 [facility] 8 mg 1-20 tablet by ity of disintegrat 00:00: mouth [place] ing tablet 00 every 8 Medica l (eight) Branch hours as needed for Nausea and Vomiting (N/V). ondansetron 2021-04 Yes [id number] 8mg Take 1 [facility] 8 mg 1-20 tablet by ity of disintegrat 00:00: mouth [place] ing tablet 00 every 8 Medica l (eight) Branch hours as needed for Nausea and Vomiting (N/V). ondansetron 2021-04 Yes [id number] 8mg Take 1 [facility] 8 mg 1-20 tablet by ity of disintegrat 00:00: mouth [place] ing tablet 00 every 8 [facility] l (eight) Branch hours as needed for Nausea and Vomiting (N/V). ondansetron 2021-04 Yes [id number] 8mg Take 1 [facility] 8 mg 1-20 tablet by ity of disintegrat 00:00: mouth [place] ing tablet 00 every 8 Medica l (eight) Branch hours as needed for Nausea and Vomiting (N/V). ondansetron 2021-04 Yes [id number] 8mg Take 1 [facility] 8 mg 1-20 tablet by ity of disintegrat 00:00: mouth [place] ing tablet 00 every 8 Medica l (eight) Branch hours as needed for Nausea and Vomiting (N/V). ondansetron 2021-04 Yes [id number] 8mg Take 1 [facility] 8 mg 1-20 tablet by ity of disintegrat 00:00: mouth [place] ing tablet 00 every 8 Medica l (eight) Branch hours as needed for Nausea and Vomiting (N/V). ondansetron 2021-04 Yes [id number] 8mg Take 1 [facility] 8 mg 1-20 tablet by ity of disintegrat 00:00: mouth [place] ing tablet 00 every 8 Medica l (eight) Branch hours as needed for Nausea and Vomiting (N/V). ondansetron 2021-04 Yes [id number] 8mg Take 1 [facility] 8 mg 1-20 tablet by ity of disintegrat 00:00: mouth [place] ing tablet 00 every 8 Medica l (eight) Branch hours as needed for Nausea and Vomiting (N/V). ondansetron 2021-04 Yes [id number] 8mg Take 1 [facility] 8 mg 1-20 tablet by ity of disintegrat 00:00: mouth [place] ing tablet 00 every 8 Medica l (eight) Branch hours as needed for Nausea and Vomiting (N/V). ondansetron 2021-04 Yes [id number] 8mg Take 1 [facility] 8 mg 1-20 tablet by ity of disintegrat 00:00: mouth [place] ing tablet 00 every 8 Medica l (eight) Branch hours as needed for Nausea and Vomiting (N/V). ondansetron 2021-04 Yes [id number] 8mg Take 1 [facility] 8 mg 1-20 tablet by ity of disintegrat 00:00: mouth [place] ing tablet 00 every 8 Medica l (eight) Branch hours as needed for Nausea and Vomiting (N/V). ondansetron 2021-04 Yes [id number] 8mg Take 1 [facility] 8 mg 1-20 tablet by ity of disintegrat 00:00: mouth [place] ing tablet 00 every 8 Medica l (eight) Branch hours as needed for Nausea and Vomiting (N/V). ondansetron 2021-04 Yes [id number] 8mg Take 1 [facility] 8 mg 1-20 tablet by ity of disintegrat 00:00: mouth [place] ing tablet 00 every 8 Medica l (eight) Branch hours as needed for Nausea and Vomiting (N/V). ondansetron 2021-04 Yes [id number] 8mg Take 1 [facility] 8 mg 1-20 tablet by ity of disintegrat 00:00: mouth [place] ing tablet 00 every 8 Medica l (eight) Branch hours as needed for Nausea and Vomiting (N/V). ondansetron 2021-04 Yes [id number] 8mg Take 1 [facility] 8 mg 1-20 tablet by ity of disintegrat 00:00: mouth [place] ing tablet 00 every 8 Medica l (eight) Branch hours as needed for Nausea and Vomiting (N/V). ondansetron 2021-04 Yes [id number] 8mg Take 1 [facility] 8 mg 1-20 tablet by ity of disintegrat 00:00: mouth [place] ing tablet 00 every 8 Medica l (eight) Branch hours as needed for Nausea and Vomiting (N/V). ondansetron 2021-04 Yes [id number] 8mg Take 1 [facility] 8 mg 1-20 tablet by ity of disintegrat 00:00: mouth [place] ing tablet 00 every 8 Medica l (eight) Branch hours as needed for Nausea and Vomiting (N/V). ondansetron 2021-04 Yes [id number] 8mg Take 1 [facility] 8 mg 1-20 tablet by ity of disintegrat 00:00: mouth [place] ing tablet 00 every 8 Medica l (eight) Branch hours as needed for Nausea and Vomiting (N/V). ondansetron 2021-04 Yes [id number] 8mg Take 1 [facility] 8 mg 1-20 tablet by ity of disintegrat 00:00: mouth [place] ing tablet 00 every 8 Medica l (eight) Branch hours as needed for Nausea and Vomiting (N/V). ondansetron 2021-04 Yes [id number] 8mg Take 1 [facility] 8 mg 1-20 tablet by ity of disintegrat 00:00: mouth [place] ing tablet 00 every 8 Medica l (eight) Branch hours as needed for Nausea and Vomiting (N/V). ondansetron 2021-04 Yes [id number] 8mg Take 1 [facility] 8 mg 1-20 tablet by ity of disintegrat 00:00: mouth [place] ing tablet 00 every 8 Medica l (eight) Branch hours as needed for Nausea and Vomiting (N/V). ondansetron 2021-04 Yes [id number] 8mg Take 1 [facility] 8 mg 1-20 tablet by ity of disintegrat 00:00: mouth [place] ing tablet 00 every 8 Medica l (eight) Branch hours as needed for Nausea and Vomiting (N/V). ondansetron 2021-04 Yes [id number] 8mg Take 1 [facility] 8 mg 1-20 tablet by ity of disintegrat 00:00: mouth [place] ing tablet 00 every 8 Medica l (eight) Branch hours as needed for Nausea and Vomiting (N/V). ondansetron 2021-04 Yes [id number] 8mg Take 1 [facility] 8 mg 1-20 tablet by ity of disintegrat 00:00: mouth [place] ing tablet 00 every 8 Medica l (eight) Branch hours as needed for Nausea and Vomiting (N/V). ondansetron 2021-04 Yes [id number] 8mg Take 1 [facility] 8 mg 1-20 tablet by ity of disintegrat 00:00: mouth [place] ing tablet 00 every 8 Medica l (eight) Branch hours as needed for Nausea and Vomiting (N/V). ondansetron 2021-04 Yes [id number] 8mg Take 1 [facility] 8 mg 1-20 tablet by ity of disintegrat 00:00: mouth [place] ing tablet 00 every 8 Medica l (eight) Branch hours as needed for Nausea and Vomiting (N/V). ondansetron 2021-04- No [id number] 8mg Take 1 [facility] 8 mg 1-20 04-10 tablet by ity of disintegrat 00:00: 00:00 [place] tablet 00 :00 every 8 [facility]ica l (eight) Branch hours as needed for Nausea and Vomiting (N/V). 2021-04 Yes Take by [employer] vit 1 mouth. ity of no.124/iron 15:57: [place] /folic 04 Medical ( Branch VITAMIN ORAL) 2021-04 Yes Take by [employer] vit 04-24 mouth. ity of no.124/iron 15:57: [place] /folic 04 Medical ( Branch VITAMIN ORAL) 2021-04 Yes Take by [employer] vit 04-24 mouth. ity of no.124/iron 15:57: [place] /folic 04 Medical ( Branch VITAMIN ORAL) 2021-04 Yes Take by [employer] vit 04-24 mouth. ity of no.124/iron 15:57: [place] /folic 04 Medical ( Branch VITAMIN ORAL) 2021-04 Yes Take by [employer] vit 04-24 mouth. ity of no.124/iron 15:57: [place] /folic 04 Medical ( Branch VITAMIN ORAL) 2021-04 Yes Take by [employer] vit 04-24 mouth. ity of no.124/iron 15:57: [place] /folic 04 Medical ( Branch VITAMIN ORAL) 2021-04 Yes Take by [employer] vit 04-24 mouth. ity of no.124/iron 15:57: [place] /folic 04 Medical ( Branch VITAMIN ORAL) 2021-04 Yes Take by [employer] vit 04-24 mouth. ity of no.124/iron 15:57: [place] /folic 04 Medical ( Branch VITAMIN ORAL) 2021-04 Yes Take by [employer] vit 04-24 mouth. ity of no.124/iron 15:57: [place] /folic 04 Medical ( Branch VITAMIN ORAL) 2021-04 Yes Take by [employer] vit 04-24 mouth. ity of no.124/iron 15:57: [place] /folic 04 Medical ( Branch VITAMIN ORAL) 2021-04 Yes Take by [employer] vit 04-24 mouth. ity of no.124/iron 15:57: [place] /folic [...] Branch VITAMIN ORAL) 2021-04 Yes Take by [employer] vit 1-09 mouth. ity of no.124/iron 15:57: [place] /folic 04 Medical ( Branch VITAMIN ORAL) 2021-04 Yes Take by [employer] vit 1-09 mouth. ity of no.124/iron 15:57: [place] /folic 04 Medical ( Branch VITAMIN ORAL) 2021-04 Yes Take by [facility] vit 1-09 mouth. ity of no.124/iron 15:57: [place] /folic 04 Medical ( Branch VITAMIN ORAL) 2021-04 Yes Take by [employer] vit 1-09 mouth. ity of no.124/iron 15:57: [place] /folic 04 Medical ( Branch VITAMIN ORAL) 2021-04 Yes Take by [employer] vit 1-09 mouth. ity of no.124/iron 15:57: [place] /folic 04 Medical ( Branch VITAMIN ORAL) 2021-04 Yes Take by [employer] vit 1-09 mouth. ity of no.124/iron 15:57: [place] /folic 04 Medical ( Branch VITAMIN ORAL) 2021-04 Yes Take by [employer] vit 1-09 mouth. ity of no.124/iron 15:57: [place] /folic 04 Medical ( Branch VITAMIN ORAL) 2021-04 Yes Take by [employer] vit 1-09 mouth. ity of no.124/iron 15:57: [place] /folic 04 Medical ( Branch VITAMIN ORAL) 2021-04 Yes Take by [employer] vit 1-09 mouth. ity of no.124/iron 15:57: [place] /folic 04 Medical ( Branch VITAMIN ORAL) 2021-04 Yes Take by [employer] vit 1-09 mouth. ity of no.124/iron [...] Branch VITAMIN ORAL) 2021-04 Yes Take by [employer] vit 1-09 mouth. ity of no.124/iron 15:57: [place] /folic 04 Medical ( Branch VITAMIN ORAL) 2021-04 Yes Take by [employer] vit 1-09 mouth. ity of no.124/iron 15:57: [place] /folic 04 Medical ( Branch VITAMIN ORAL) 2021-04 Yes Take by [employer] vit 1-09 mouth. ity of no.124/iron 15:57: [place] /folic 04 Medical ( Branch VITAMIN ORAL) 2021-04 Yes Take by [employer] vit 1-09 mouth. ity of no.124/iron 15:57: [place] /folic 04 Medical ( Branch VITAMIN ORAL) 2021-04 Yes Take by [employer] vit 1-09 mouth. ity of no.124/iron 15:57: [place] /folic 04 Medical ( Branch VITAMIN ORAL) 2021-04 Yes Take by [employer] vit 1-09 mouth. ity of no.124/iron 15:57: [place] /folic 04 Medical ( Branch VITAMIN ORAL) 2021-04 Yes Take by [employer] vit 1-09 mouth. ity of no.124/iron 15:57: [place] /folic 04 Medical ( Branch VITAMIN ORAL) metoclopram 2021-04 Yes [id number] 10mg Take 1 [facility] [place] HCl 10 1-09 tablet by ity of mg tablet 00:00: mouth [place] 00 every 6 Medical (six) Branch hours as needed for Nausea and Vomiting (N/V). metoclopram 2021-04 Yes [id number] 10mg Take 1 [facility] [place] HCl 10 1-09 tablet by ity of mg tablet 00:00: mouth [place] 00 every 6 Medical (six) Branch hours as needed for Nausea and Vomiting (N/V). metoclopram 2021-04 Yes [id number] 10mg Take 1 [facility] [place] HCl 10 1-09 tablet by ity of mg tablet 00:00: mouth [place] 00 every 6 Medical (six) Branch hours as needed for Nausea and Vomiting (N/V). metoclopram 2021-04 Yes [id number] 10mg Take 1 [facility] [place] HCl 10 1-09 tablet by ity of mg tablet 00:00: mouth [place] 00 every 6 Medical (six) Branch hours as needed for Nausea and Vomiting (N/V). metoclopram 2021- Yes [id number] 10mg Take 1 [facility] [place] HCl 10 1-09 tablet by ity of mg tablet 00:00: mouth [place] 00 every 6 Medical (six) Branch hours as needed for Nausea and Vomiting (N/V). metoclopram 2021- Yes [id number] 10mg Take 1 [facility] [place] HCl 10 1-09 tablet by ity of mg tablet 00:00: mouth [place] 00 every 6 Medical (six) Branch hours as needed for Nausea and Vomiting (N/V). metoclopram 2021- Yes [id number] 10mg Take 1 [facility] [place] HCl 10 1-09 tablet by ity of mg tablet 00:00: mouth [place] 00 every 6 Medical (six) Branch hours as needed for Nausea and Vomiting (N/V). metoclopram 2021- Yes [id number] 10mg Take 1 [facility] [place] HCl 10 1-09 tablet by ity of mg tablet 00:00: mouth [place] 00 every 6 Medical (six) Branch hours as needed for Nausea and Vomiting (N/V). metoclopram 2021- Yes [id number] 10mg Take 1 [facility] [place] HCl 10 1-09 tablet by ity of mg tablet 00:00: mouth [place] 00 every 6 Medical (six) Branch hours as needed for Nausea and Vomiting (N/V). metoclopram 2021- Yes [id number] 10mg Take 1 [facility] [place] HCl 10 1-09 tablet by ity of mg tablet 00:00: mouth [place] 00 every 6 Medical (six) Branch hours as needed for Nausea and Vomiting (N/V). metoclopram 2021- Yes [id number] 10mg Take 1 [facility] [place] HCl 10 1-09 tablet by ity of mg tablet 00:00: mouth [place] 00 every 6 Medical (six) Branch hours as needed for Nausea and Vomiting (N/V). metoclopram 2021-1 Yes [id number] 10mg Take 1 [facility] [place] HCl 10 1-09 tablet by ity of mg tablet 00:00: mouth [place] 00 every 6 Medical (six) Branch hours as needed for Nausea and Vomiting (N/V). metoclopram 2021-1 Yes [id number] 10mg Take 1 [facility] [place] HCl 10 1-09 tablet by ity of mg tablet 00:00: mouth [place] 00 every 6 Medical (six) Branch hours as needed for Nausea and Vomiting (N/V). metoclopram 2021- Yes [id number] 10mg Take 1 [facility] [place] HCl 10 1-09 tablet by ity of mg tablet 00:00: mouth [place] 00 every 6 Medical (six) Branch hours as needed for Nausea and Vomiting (N/V). metoclopram 2021- Yes [id number] 10mg Take 1 [facility] [place] HCl 10 1-09 tablet by ity of mg tablet 00:00: mouth [place] 00 every 6 Medical (six) Branch hours as needed for Nausea and Vomiting (N/V). metoclopram 2021- Yes [id number] 10mg Take 1 [facility] [place] HCl 10 1-09 tablet by ity of mg tablet 00:00: mouth [place] 00 every 6 Medical (six) Branch hours as needed for Nausea and Vomiting (N/V). metoclopram 2021- Yes [id number] 10mg Take 1 [facility] [place] HCl 10 1-09 tablet by ity of mg tablet 00:00: mouth [place] 00 every 6 Medical (six) Branch hours as needed for Nausea and Vomiting (N/V). metoclopram 2021-04 Yes [id number] 10mg Take 1 [facility] [place] HCl 10 1-09 tablet by ity of mg tablet 00:00: mouth [place] 00 every 6 Medical (six) Branch hours as needed for Nausea and Vomiting (N/V). metoclopram 2021- Yes [id number] 10mg Take 1 [facility] [place] HCl 10 1-09 tablet by ity of mg tablet 00:00: mouth [place] 00 every 6 Medical (six) Branch hours as needed for Nausea and Vomiting (N/V). metoclopram 2021- Yes [id number] 10mg Take 1 [facility] [place] HCl 10 1-09 tablet by ity of mg tablet 00:00: mouth [place] 00 every 6 Medical (six) Branch hours as needed for Nausea and Vomiting (N/V). metoclopram 2021-1 Yes [id number] 10mg Take 1 [facility] [place] HCl 10 1-09 tablet by ity of mg tablet 00:00: mouth [place] 00 every 6 Medical (six) Branch hours as needed for Nausea and Vomiting (N/V). metoclopram 2021- Yes [id number] 10mg Take 1 [facility] [place] HCl 10 1-09 tablet by ity of mg tablet 00:00: mouth [place] 00 every 6 Medical (six) Branch hours as needed for Nausea and Vomiting (N/V). metoclopram 2021- Yes [id number] 10mg Take 1 [facility] [place] HCl 10 1-09 tablet by ity of mg tablet 00:00: mouth [place] 00 every 6 Medical (six) Branch hours as needed for Nausea and Vomiting (N/V). metoclopram 2021-04 Yes [id number] 10mg Take 1 [facility] [place] HCl 10 1-09 tablet by ity of mg tablet 00:00: mouth [place] 00 every 6 Medical (six) Branch hours as needed for Nausea and Vomiting (N/V). metoclopram 2021- Yes [id number] 10mg Take 1 [facility] [place] HCl 10 1-09 tablet by ity of mg tablet 00:00: mouth [place] 00 every 6 Medical (six) Branch hours as needed for Nausea and Vomiting (N/V). metoclopram 2021-04 Yes [id number] 10mg Take 1 [facility] [place] HCl 10 1-09 tablet by ity of mg tablet 00:00: mouth [place] 00 every 6 Medical (six) Branch hours as needed for Nausea and Vomiting (N/V). metoclopram 2021-04 Yes [id number] 10mg Take 1 [facility] [place] HCl 10 1-09 tablet by ity of mg tablet 00:00: mouth [place] 00 every 6 Medical (six) Branch hours as needed for Nausea and Vomiting (N/V). metoclopram 2021-04 Yes [id number] 10mg Take 1 [facility] [place] HCl 10 1-09 tablet by ity of mg tablet 00:00: mouth [place] 00 every 6 Medical (six) Branch hours as needed for Nausea and Vomiting (N/V). metoclopram 2021- Yes [id number] 10mg Take 1 [facility] [place] HCl 10 1-09 tablet by ity of mg tablet 00:00: mouth [place] 00 every 6 Medical (six) Branch hours as needed for Nausea and Vomiting (N/V). metoclopram 2021- Yes [id number] 10mg Take 1 [facility] [place] HCl 10 1-09 tablet by ity of mg tablet 00:00: mouth [place] 00 every 6 Medical (six) Branch hours as needed for Nausea and Vomiting (N/V). metoclopram 2021-04 Yes [id number] 10mg Take 1 [facility] [place] HCl 10 1-09 tablet by ity of mg tablet 00:00: mouth [place] 00 every 6 Medical (six) Branch hours as needed for Nausea and Vomiting (N/V). metoclopram 2021-04 Yes [id number] 10mg Take 1 [facility] [place] HCl 10 1-09 tablet by ity of mg tablet 00:00: mouth [place] 00 every 6 Medical (six) Branch hours as needed for Nausea and Vomiting (N/V). metoclopram 2021-04 Yes [id number] 10mg Take 1 [facility] [place] HCl 10 1-09 tablet by ity of mg tablet 00:00: mouth [place] 00 every 6 Medical (six) Branch hours as needed for Nausea and Vomiting (N/V). metoclopram 2021-04 Yes [id number] 10mg Take 1 [facility] [place] HCl 10 1-09 tablet by ity of mg tablet 00:00: mouth [place] 00 every 6 Medical (six) Branch hours as needed for Nausea and Vomiting (N/V). metoclopram 2021-04 Yes [id number] 10mg Take 1 [facility] [place] HCl 10 1-09 tablet by ity of mg tablet 00:00: mouth [place] 00 every 6 Medical (six) Branch hours as needed for Nausea and Vomiting (N/V). metoclopram 2021-04 Yes [id number] 10mg Take 1 [facility] [place] HCl 10 1-09 tablet by ity of mg tablet 00:00: mouth [place] 00 every 6 Medical (six) Branch hours as needed for Nausea and Vomiting (N/V). metoclopram 2021-04 Yes [id number] 10mg Take 1 [facility] [place] HCl 10 1-09 tablet by ity of mg tablet 00:00: mouth [place] 00 every 6 Medical (six) Branch hours as needed for Nausea and Vomiting (N/V). metoclopram 2021-04 Yes [id number] 10mg Take 1 [facility] [place] HCl 10 1-09 tablet by ity of mg tablet 00:00: mouth [place] 00 every 6 Medical (six) Branch hours as needed for Nausea and Vomiting (N/V). metoclopram 2021-04 Yes [id number] 10mg Take 1 [facility] [place] HCl 10 1-09 tablet by ity of mg tablet 00:00: mouth [place] 00 every 6 Medical (six) Branch hours as needed for Nausea and Vomiting (N/V). metoclopram 2021-04- No [id number] 10mg Take 1 [facility] [place] HCl 10 09 04-10 tablet by ity of mg tablet [...] every Medical morning. Branch cyclobenzap 2021-0 Yes [id number] TAKE 1 [facility] rine 10 mg 5-07 TABLET BY ity of tablet 00:00: MOUTH [place] 00 EVERY 8 Medical HOURS Branch NEEDED FOR MUSCLE SPASMS. cyclobenzap 2021-0 Yes [id number] TAKE 1 [facility] rine 10 mg 5-07 TABLET BY ity of tablet 00:00: MOUTH [place] 00 EVERY 8 Medical HOURS Branch NEEDED FOR MUSCLE SPASMS. cyclobenzap 2021-0 Yes [id number] TAKE 1 [facility] rine 10 mg 5-07 TABLET BY ity of tablet 00:00: MOUTH [place] 00 EVERY 8 Medical HOURS Branch NEEDED FOR MUSCLE SPASMS. cyclobenzap 2021-0 Yes [id number] TAKE 1 [facility] rine 10 mg 5-07 TABLET BY ity of tablet 00:00: MOUTH [place] 00 EVERY 8 Medical HOURS Branch NEEDED FOR MUSCLE SPASMS. cyclobenzap 2021-0 Yes [id number] TAKE 1 [facility] rine 10 mg 5-07 TABLET BY ity of tablet 00:00: MOUTH [place] 00 EVERY 8 Medical HOURS Branch NEEDED FOR MUSCLE SPASMS. cyclobenzap 2021-0 Yes [id number] TAKE 1 [facility] rine 10 mg 5-07 TABLET BY ity of tablet 00:00: MOUTH [place] 00 EVERY 8 Medical HOURS Branch NEEDED FOR MUSCLE SPASMS. cyclobenzap 2021- No [id number] TAKE 1 [facility] rine 10 mg 5-07 10-13 TABLET BY ity of tablet 00:00: 00:00 MOUTH [place] 00 :00 EVERY 8 Medical HOURS Branch NEEDED FOR MUSCLE SPASMS. cyclobenzap 2021- No [id number] TAKE 1 [facility] rine 10 mg 5-07 10-13 TABLET BY ity of tablet 00:00: 00:00 MOUTH [place] 00 :00 EVERY 8 Medical HOURS Branch NEEDED FOR MUSCLE SPASMS. gabapentin 2019- Yes TK 1/2 TO Un queta 600 mg 7-25 1 T PO BID ity of tablet 00:00: [place] 00 [facility] Branch gabapentin 2019-0 Yes TK 1/2 TO Un queta 600 mg 7-25 1 T PO BID ity of tablet 00:00: [place] 00 Medical Branch gabapentin 2019-0 Yes TK 1/2 TO Un queta 600 mg 7-25 1 T PO BID ity of tablet 00:00: [place] 00 Medical Branch gabapentin 2019-0 Yes TK 1/2 TO Un queta 600 mg 7-25 1 T PO BID ity of tablet 00:00: [place] 00 [facility] Branch gabapentin 2019-0 Yes TK 1/2 TO Un queta 600 mg 7-25 1 T PO BID ity of tablet 00:00: [place] 00 [facility] Branch gabapentin 2019-0 Yes TK 1/2 TO Un queta 600 mg 7-25 1 T PO BID ity of tablet 00:00: [place] 00 Medical Branch gabapentin 2019-0 2021- No TK 1/2 TO U nivers 600 mg 7-25 10-13 1 T PO BID ity of tablet 00:00: 00:00 [place] 00 :00 Medical Branch gabapentin 2019-0 2021- No TK 1/2 TO U nivers 600 mg 7-25 10-13 1 T PO BID ity of tablet 00:00: 00:00 [place] 00 :00 Medical Branch tablet 2019-[address] [facility] compound 5-13 AND 1/2 ity of base no.230 00:00: FILMS [place] (SUBSOLV 00 UNDER THE Medica l RDT [...] WITHOUT CHEWING OR SWALLOWING Immunizations Ordered Filled Date Status Comments Source Immunization Name Immunization Name TDAP 2022-12-21 Completed [facility] of 00:00:00 [facility] Rho (d) Immune 2022-12-21 Completed University of Globulin 00:00:00 [facility] Rho (d) Immune 2022-04-11 Completed University of Globulin 00:00:00 [facility] Rho (d) Immune 2022-04-11 Completed University of Globulin 00:00:00 [facility] Rho (d) Immune 2022-04-11 Completed University of Globulin 00:00:00 [facility] Rho (d) Immune 2022-04-11 Completed University of Globulin 00:00:00 [facility] Rho (d) Immune 2022-04-11 Completed University of Globulin 00:00:00 [facility] Rho (d) Immune 2022-04-11 Completed University of Globulin 00:00:00 [facility] Branch Rho (d) Immune 2022-04-11 Completed University of Globulin 00:00:00 [facility] Branch Rho (d) Immune 2022-04-11 Completed University of Globulin 00:00:00 [facility] Branch Rho (d) Immune 2022-04-11 Completed University of Globulin 00:00:00 [facility] Branch Rho (d) Immune 2022-04-11 Completed University of Globulin 00:00:00 [facility] Branch Rho (d) Immune 2022-04-11 Completed University of Globulin 00:00:00 [facility] Branch Rho (d) Immune 2022-04-11 Completed University of Globulin 00:00:00 [facility] Branch Rho (d) Immune 2022-04-11 Completed University of Globulin 00:00:00 [facility] Rho (d) Immune 2022-04-11 Completed University of Globulin 00:00:00 [facility] Rho (d) Immune 2022-04-11 Completed University of Globulin 00:00:00 [facility] Branch Rho (d) Immune 2022-04-11 Completed University of Globulin 00:00:00 [facility] Branch Rho (d) Immune 2022-04-11 Completed University of Globulin 00:00:00 [facility] Rho (d) Immune 2022-04-11 Completed University of Globulin 00:00:00 [facility] Rho (d) Immune 2022-04-11 Completed University of Globulin 00:00:00 [facility] Rho (d) Immune 2022-04-11 Completed University of Globulin 00:00:00 [facility] Rho (d) Immune 2022-04-11 Completed University of Globulin 00:00:00 [facility] Rho (d) Immune 2022-04-11 Completed University of Globulin 00:00:00 [facility] Rho (d) Immune 2022-04-11 Completed University of Globulin 00:00:00 [facility] Rho (d) Immune 2022-04-11 Completed University of Globulin 00:00:00 [facility] Rho (d) Immune 2022-04-11 Completed University of Globulin 00:00:00 [facility] Rho (d) Immune 2022-04-11 Completed University of Globulin 00:00:00 [facility] Rho (d) Immune 2022-04-11 Completed University of Globulin 00:00:00 [facility] Rho (d) Immune 2022-04-11 Completed University of Globulin 00:00:00 [facility] Rho (d) Immune 2022-04-11 Completed University of Globulin 00:00:00 [facility] Rho (d) Immune 2022-04-11 Completed University of Globulin 00:00:00 [facility] Rho (d) Immune 2022-04-11 Completed University of Globulin 00:00:00 [facility] Rho (d) Immune 2022-04-11 Completed University of Globulin 00:00:00 [facility] Rho (d) Immune 2022-04-11 Completed University of Globulin 00:00:00 [facility] Rho (d) Immune 2022-04-11 Completed University of Globulin 00:00:00 [facility] Rho (d) Immune 2022-04-11 Completed University of Globulin 00:00:00 [facility] Rho (d) Immune 2022-04-11 Completed University of Globulin 00:00:00 [facility] Rho (d) Immune 2022-04-11 Completed University of Globulin 00:00:00 [facility] Branch Rho (d) Immune 2022-04-11 Completed University of Globulin 00:00:00 [facility] Rho (d) Immune 2022-04-11 Completed University of Globulin 00:00:00 [facility] Rho (d) Immune 2022-04-11 Completed University of Globulin 00:00:00 [facility] Rho (d) Immune 2022-04-11 Completed University of Globulin 00:00:00 [facility] Rho (d) Immune 2022-04-11 Completed University of Globulin 00:00:00 [facility] Rho (d) Immune 2022-04-11 Completed University of Globulin 00:00:00 [facility] Rho (d) Immune 2022-04-11 Completed University of Globulin 00:00:00 [facility] Rho (d) Immune 2022-04-11 Completed University of Globulin 00:00:00 [facility] Rho (d) Immune 2022-04-11 Completed University of Globulin 00:00:00 [facility] Rho (d) Immune 2022-04-11 Completed University of Globulin 00:00:00 [facility] HPV9 2022-03-28 Completed University of 00:00:00 [facility] Branch HPV9 2022-03-28 Completed University of 00:00:00 [facility] HPV9 2022-03-28 Completed University of 00:00:00 [place] [facility] HPV9 2022-03-28 Completed University of 00:00:00 [place] [facility] HPV9 2022-03-28 Completed University of 00:00:00 [facility] HPV9 2022-03-28 Completed [facility] 00:00:00 [facility] HPV9 2022-03-28 Completed [facility] 00:00:00 [facility] HPV9 2022-03-28 Completed [facility] 00:00:00 [facility] HPV9 2022-03-28 Completed [facility] 00:00:00 [facility] HPV9 2022-03-28 Completed [facility] 00:00:00 [facility] HPV9 2022-03-28 Completed [facility] 00:00:00 [facility] HPV9 2022-03-28 Completed [facility] 00:00:00 [facility] HPV9 2022-03-28 Completed [facility] 00:00:00 [facility] HPV9 2022-03-28 Completed [facility] 00:00:00 [facility] HPV9 2022-03-28 Completed [facility] 00:00:00 [facility] HPV9 2022-03-28 Completed [facility] 00:00:00 [facility] HPV9 2022-03-28 Completed [facility] 00:00:00 [facility] HPV9 2022-03-28 Completed [facility] 00:00:00 [facility] HPV9 2022-03-28 Completed [facility] 00:00:00 [facility] HPV9 2022-03-28 Completed [facility] 00:00:00 [facility] HPV9 2022-03-28 Completed [facility] 00:00:00 [facility] HPV9 2022-03-28 Completed [facility] 00:00:00 [facility] HPV9 2022-03-28 Completed [facility] 00:00:00 [facility] HPV9 2022-03-28 Completed [facility] 00:00:00 [facility] HPV9 2022-03-28 Completed [facility] 00:00:00 [facility] HPV9 2022-03-28 Completed [facility] 00:00:00 [facility] HPV9 2022-03-28 Completed [facility] 00:00:00 [facility] HPV9 2022-03-28 Completed [facility] 00:00:00 [facility] HPV9 2022-03-28 Completed [facility] 00:00:00 [facility] HPV9 2022-03-28 Completed [facility] 00:00:00 [facility] HPV9 2022-03-28 Completed [facility] 00:00:00 [facility] HPV9 2022-03-28 Completed [facility] 00:00:00 [facility] HPV9 2022-03-28 Completed [facility] 00:00:00 [facility] HPV9 2022-03-28 Completed [facility] 00:00:00 [facility] HPV9 2022-03-28 Completed [facility] 00:00:00 [facility] HPV9 2022-03-28 Completed [facility] 00:00:00 [facility] HPV9 2022-03-28 Completed [facility] 00:00:00 [facility] HPV9 2022-03-28 Completed [facility] 00:00:00 [facility] HPV9 2022-03-28 Completed [facility] 00:00:00 [facility] HPV9 2022-03-28 Completed [facility] 00:00:00 [facility] HPV9 2022-03-28 Completed [facility] 00:00:00 [facility] HPV9 2022-03-28 Completed [facility] 00:00:00 [facility] HPV9 2022-03-28 Completed [facility] 00:00:00 [facility] HPV9 2022-03-28 Completed [facility] 00:00:00 [facility] HPV9 2022-03-28 Completed [facility] 00:00:00 [facility] HPV9 2022-03-28 Completed [facility] 00:00:00 [facility] HPV9 2022-03-28 Completed [facility] 00:00:00 [facility] HPV9 2022-03-28 Completed [facility] 00:00:00 [facility] HPV9 2022-03-28 Completed [facility] 00:00:00 [facility] HPV9 2022-03-28 Completed [facility] 00:00:00 [facility] HPV9 2022-03-28 Completed [facility] 00:00:00 [facility] HPV9 2022-03-28 Completed [facility] 00:00:00 [facility] HPV9 2022-03-28 Completed [facility] 00:00:00 [facility] Influenza Virus 2022-02-22 Completed [facility], 00:00:00 [facility] dical Preserv and ABX Branch Free 6 [...] [facility], 00:00:00 [place] [facility] Preserv [facility] ABX [facility] Free 6 MO-64 YRS HPV9 2021-12-30 Completed University 00:00:00 [facility] HPV9 2021-12-30 Completed University 00:00:00 [facility] HPV9 2021-12-30 Completed University 00:00:00 [facility] HPV9 2021-12-30 Completed [facility] 00:00:00 [facility] HPV9 2021-12-30 Completed [facility] 00:00:00 [facility] HPV9 2021-12-30 Completed [facility] 00:00:00 [facility] HPV9 2021-12-30 Completed [facility] 00:00:00 [facility] HPV9 2021-12-30 Completed [facility] 00:00:00 [facility] HPV9 2021-12-30 Completed [facility] 00:00:00 [facility] HPV9 2021-12-30 Completed [facility] 00:00:00 [facility] HPV9 2021-12-30 Completed [facility] 00:00:00 [facility] HPV9 2021-12-30 Completed [facility] 00:00:00 [facility] HPV9 2021-12-30 Completed [facility] 00:00:00 [facility] HPV9 2021-12-30 Completed [facility] 00:00:00 [facility] HPV9 2021-12-30 Completed [facility] 00:00:00 [facility] HPV9 2021-12-30 Completed [facility] 00:00:00 [facility] HPV9 2021-12-30 Completed [facility] 00:00:00 [facility] HPV9 2021-12-30 Completed [facility] 00:00:00 [facility] HPV9 2021-12-30 Completed [facility] 00:00:00 [facility] HPV9 2021-12-30 Completed [facility] 00:00:00 [facility] HPV9 2021-12-30 Completed [facility] 00:00:00 [facility] HPV9 2021-12-30 Completed [facility] 00:00:00 [facility] HPV9 2021-12-30 Completed [facility] 00:00:00 [facility] HPV9 2021-12-30 Completed [facility] 00:00:00 [facility] HPV9 2021-12-30 Completed [facility] 00:00:00 [facility] HPV9 2021-12-30 Completed [facility] 00:00:00 [facility] HPV9 2021-12-30 Completed [facility] 00:00:00 [facility] HPV9 2021-12-30 Completed [facility] 00:00:00 [facility] HPV9 2021-12-30 Completed [facility] 00:00:00 [facility] HPV9 2021-12-30 Completed [facility] 00:00:00 [facility] HPV9 2021-12-30 Completed [facility] 00:00:00 [facility] HPV9 2021-12-30 Completed [facility] 00:00:00 [facility] HPV9 2021-12-30 Completed [facility] 00:00:00 [facility] HPV9 2021-12-30 Completed [facility] 00:00:00 [facility] HPV9 2021-12-30 Completed [facility] 00:00:00 [facility] HPV9 2021-12-30 Completed [facility] 00:00:00 [facility] HPV9 2021-12-30 Completed [facility] 00:00:00 [facility] HPV9 2021-12-30 Completed [facility] 00:00:00 [facility] HPV9 2021-12-30 Completed [facility] 00:00:00 [facility] HPV9 2021-12-30 Completed [facility] 00:00:00 [facility] HPV9 2021-12-30 Completed [facility] 00:00:00 [facility] HPV9 2021-12-30 Completed [facility] 00:00:00 [facility] HPV9 2021-12-30 Completed [facility] 00:00:00 [facility] HPV9 2021-12-30 Completed [facility] 00:00:00 [facility] HPV9 2021-12-30 Completed [facility] 00:00:00 [facility] HPV9 2021-12-30 Completed [facility] 00:00:00 [facility] HPV9 2021-12-30 Completed [facility] 00:00:00 [facility] HPV9 2021-12-30 Completed [facility] 00:00:00 [facility] HPV9 2021-12-30 Completed [facility] 00:00:00 [facility] HPV9 2021-12-30 Completed [facility] 00:00:00 [facility] HPV9 2021-12-30 Completed [facility] 00:00:00 [facility] HPV9 2021-12-30 Completed [facility] 00:00:00 [facility] HPV9 2021-12-30 Completed [facility] 00:00:00 [facility] HPV9 2021-12-30 Completed [facility] 00:00:00 [facility] HPV9 2021-12-30 Completed [facility] 00:00:00 [facility] HPV9 2021-12-30 Completed [facility] 00:00:00 [facility] HPV9 2021-12-30 Completed [facility] 00:00:00 [facility] HPV9 2021-12-30 Completed [facility] 00:00:00 [facility] HPV9 2021-12-30 Completed [facility] 00:00:00 [facility] HPV9 2021-12-30 Completed [facility] 00:00:00 [facility] HPV9 2021-12-30 Completed [facility] 00:00:00 [facility] HPV9 2021-12-30 Completed [facility] 00:00:00 [facility] HPV9 2021-12-30 Completed [facility] 00:00:00 [facility] HPV9 2021-12-30 Completed [facility] 00:00:00 [facility] HPV9 2021-12-30 Completed [facility] 00:00:00 [facility] HPV9 2021-12-30 Completed [facility] 00:00:00 [facility] HPV9 2021-12-30 Completed [facility] 00:00:00 [facility] HPV9 2021-12-30 Completed [facility] 00:00:00 [facility] HPV9 2021-12-30 Completed [facility] 00:00:00 [facility] HPV9 2021-12-30 Completed [facility] 00:00:00 [facility] HPV9 2021-12-30 Completed [facility] 00:00:00 [facility] HPV9 2021-12-30 Completed [facility] 00:00:00 [facility] HPV9 2021-12-30 Completed [facility] 00:00:00 [facility] HPV9 2021-12-30 Completed [facility] 00:00:00 [facility] HPV9 2021-12-30 Completed [facility] 00:00:00 [facility] HPV9 2021-12-30 Completed [facility] 00:00:00 [facility] HPV9 2021-12-30 Completed [facility] 00:00:00 [facility] HPV9 2021-12-30 Completed [facility] 00:00:00 [facility] HPV9 2021-12-30 Completed [facility] 00:00:00 [facility] HPV9 2021-12-30 Completed [facility] 00:00:00 [facility] HPV9 2021-12-30 Completed [facility] 00:00:00 [facility] HPV9 2021-12-30 Completed [facility] 00:00:00 [facility] HPV9 2021-12-30 Completed [facility] 00:00:00 [facility] HPV9 2021-12-30 Completed [facility] 00:00:00 [facility] HPV9 2021-12-30 Completed [facility] 00:00:00 [facility] HPV9 2021-12-30 Completed [facility] 00:00:00 [facility] HPV9 2021-12-30 Completed [facility] 00:00:00 [facility] HPV9 2021-12-30 Completed [facility] 00:00:00 [facility] HPV9 2021-12-30 Completed [facility] 00:00:00 [facility] HPV9 2021-12-30 Completed [facility] 00:00:00 [facility] HPV9 2021-12-30 Completed [facility] 00:00:00 [facility] HPV9 2021-12-30 Completed [facility] 00:00:00 [facility] HPV9 2021-12-30 Completed [facility] 00:00:00 [facility] HPV9 2021-12-30 Completed [facility] 00:00:00 [facility] SARS-COV-2 COVID-19 2020-09-17 Completed Unive rsity of VACCINE - (MODERNA) 00:00:00 [facility] SARS-COV-2 COVID-19 2020-09-17 Completed [facility] of VACCINE - (MODERNA) 00:00:00 [facility] SARS-COV-2 COVID-19 2020-09-17 Completed [facility] of VACCINE - (MODERNA) 00:00:00 [facility] SARS-COV-2 COVID-19 2020-09-17 Completed [facility] of VACCINE - (MODERNA) 00:00:00 [facility] SARS-COV-2 COVID-19 2020-09-17 Completed [facility] of VACCINE - (MODERNA) 00:00:00 [facility] SARS-COV-2 COVID-19 2020-09-17 Completed [facility] of VACCINE - (MODERNA) 00:00:00 [facility] SARS-COV-2 COVID-19 2020-09-17 Completed [facility] of VACCINE - (MODERNA) 00:00:00 [facility] SARS-COV-2 COVID-19 2020-09-17 Completed [facility] of VACCINE - (MODERNA) 00:00:00 [facility] SARS-COV-2 COVID-19 2020-09-17 Completed [facility] VACCINE - (MODERNA) 00:00:00 [facility] SARS-COV-2 COVID-19 2020-09-17 Completed [facility] of VACCINE - (MODERNA) 00:00:00 [facility] SARS-COV-2 COVID-19 2020-09-17 Completed [facility] of VACCINE - (MODERNA) 00:00:00 [facility] SARS-COV-2 COVID-19 2020-09-17 Completed [facility] of VACCINE - (MODERNA) 00:00:00 [facility] SARS-COV-2 COVID-19 2020-09-17 Completed [facility] of VACCINE - (MODERNA) 00:00:00 [facility] SARS-COV-2 COVID-19 2020-09-17 Completed [facility] of VACCINE - (MODERNA) 00:00:00 [facility] SARS-COV-2 COVID-19 2020-09-17 Completed [facility] of VACCINE - (MODERNA) 00:00:00 [facility] SARS-COV-2 COVID-19 2020-09-17 Completed [facility] of VACCINE - (MODERNA) 00:00:00 [facility] SARS-COV-2 COVID-19 2020-09-17 Completed [facility] of VACCINE - (MODERNA) 00:00:00 [facility] SARS-COV-2 COVID-19 2020-09-17 Completed [facility] of VACCINE - (MODERNA) 00:00:00 [facility] SARS-COV-2 COVID-19 2020-09-17 Completed [facility] of VACCINE - (MODERNA) 00:00:00 [facility] SARS-COV-2 COVID-19 2020-09-17 Completed [facility] of VACCINE - (MODERNA) 00:00:00 [facility] SARS-COV-2 COVID-19 2020-09-17 Completed [facility] of VACCINE - (MODERNA) 00:00:00 [facility] SARS-COV-2 COVID-19 2020-09-17 Completed [facility] of VACCINE - (MODERNA) 00:00:00 [facility] SARS-COV-2 COVID-19 2020-09-17 Completed [facility] of VACCINE - (MODERNA) 00:00:00 [facility] SARS-COV-2 COVID-19 2020-09-17 Completed [facility] of VACCINE - (MODERNA) 00:00:00 [facility] SARS-COV-2 COVID-19 2020-09-17 Completed [facility] VACCINE - (MODERNA) 00:00:00 [facility] SARS-COV-2 COVID-19 2020-09-17 Completed [facility] of VACCINE - (MODERNA) 00:00:00 [facility] SARS-COV-2 COVID-19 2020-09-17 Completed [facility] VACCINE - (MODERNA) 00:00:00 [facility] SARS-COV-2 COVID-19 2020-09-17 Completed [facility] VACCINE - (MODERNA) 00:00:00 [facility] SARS-COV-2 COVID-19 2020-09-17 Completed [facility] VACCINE - (MODERNA) 00:00:00 [facility] SARS-COV-2 COVID-19 2020-09-17 Completed [facility] VACCINE - (MODERNA) 00:00:00 [facility] SARS-COV-2 COVID-19 2020-09-17 Completed [facility] VACCINE - (MODERNA) 00:00:00 [facility] SARS-COV-2 COVID-19 2020-09-17 Completed [facility] VACCINE - (MODERNA) 00:00:00 [facility] SARS-COV-2 COVID-19 2020-09-17 Completed [facility] VACCINE - (MODERNA) 00:00:00 [facility] SARS-COV-2 COVID-19 2020-09-17 Completed [facility] VACCINE - (MODERNA) 00:00:00 [facility] SARS-COV-2 COVID-19 2020-09-17 Completed [facility] VACCINE - (MODERNA) 00:00:00 [facility] SARS-COV-2 COVID-19 2020-09-17 Completed [facility] VACCINE - (MODERNA) 00:00:00 [facility] SARS-COV-2 COVID-19 2020-09-17 Completed [facility] VACCINE - (MODERNA) 00:00:00 [facility] SARS-COV-2 COVID-19 2020-09-17 Completed [facility] of VACCINE - (MODERNA) 00:00:00 [facility] SARS-COV-2 COVID-19 2020-09-17 Completed [facility] of VACCINE - (MODERNA) 00:00:00 [facility] SARS-COV-2 COVID-19 2020-09-17 Completed [facility] of VACCINE - (MODERNA) 00:00:00 [facility] SARS-COV-2 COVID-19 2020-09-17 Completed [facility] of VACCINE - (MODERNA) 00:00:00 [facility] SARS-COV-2 COVID-19 2020-09-17 Completed [facility] of VACCINE - (MODERNA) 00:00:00 [facility] SARS-COV-2 COVID-19 2020-09-17 Completed [facility] of VACCINE - (MODERNA) 00:00:00 [facility] SARS-COV-2 COVID-19 2020-09-17 Completed [facility] VACCINE - (MODERNA) 00:00:00 [facility] SARS-COV-2 COVID-19 2020-09-17 Completed [facility] VACCINE - (MODERNA) 00:00:00 [facility] SARS-COV-2 COVID-19 2020-09-17 Completed [facility] of VACCINE - (MODERNA) 00:00:00 [facility] SARS-COV-2 COVID-19 2020-09-17 Completed [facility] VACCINE - (MODERNA) 00:00:00 [facility] SARS-COV-2 COVID-19 2020-09-17 Completed [facility] of VACCINE - (MODERNA) 00:00:00 [facility] SARS-COV-2 COVID-19 2020-09-17 Completed [facility] VACCINE - (MODERNA) 00:00:00 [facility] SARS-COV-2 COVID-19 2020-09-17 Completed [facility] VACCINE - (MODERNA) 00:00:00 [facility] SARS-COV-2 COVID-19 2020-09-17 Completed [facility] of VACCINE - (MODERNA) 00:00:00 [facility] SARS-COV-2 COVID-19 2020-09-17 Completed [facility] VACCINE - (MODERNA) 00:00:00 [facility] SARS-COV-2 COVID-19 2020-09-17 Completed [facility] VACCINE - (MODERNA) 00:00:00 [facility] SARS-COV-2 COVID-19 2020-09-17 Completed [facility] VACCINE - (MODERNA) 00:00:00 [facility] SARS-COV-2 COVID-19 2020-09-17 Completed [facility] of VACCINE - (MODERNA) 00:00:00 [facility] SARS-COV-2 COVID-19 2020-09-17 Completed [facility] of VACCINE - (MODERNA) 00:00:00 [facility] SARS-COV-2 COVID-19 2020-09-17 Completed [facility] of VACCINE - (MODERNA) 00:00:00 [facility] SARS-COV-2 COVID-19 2020-09-17 Completed [facility] VACCINE - (MODERNA) 00:00:00 [facility] SARS-COV-2 COVID-19 2020-09-17 Completed [facility] of VACCINE - (MODERNA) 00:00:00 [facility] SARS-COV-2 COVID-19 2020-09-17 Completed [facility] VACCINE - (MODERNA) 00:00:00 [facility] SARS-COV-2 COVID-19 2020-09-17 Completed [facility] VACCINE - (MODERNA) 00:00:00 [facility] SARS-COV-2 COVID-19 2020-09-17 Completed [facility] of VACCINE - (MODERNA) 00:00:00 [facility] SARS-COV-2 COVID-19 2020-09-17 Completed [facility] VACCINE - (MODERNA) 00:00:00 [facility] SARS-COV-2 COVID-19 2020-09-17 Completed [facility] VACCINE - (MODERNA) 00:00:00 [facility] SARS-COV-2 COVID-19 2020-08-07 Completed [facility] VACCINE - (MODERNA) 00:00:00 [facility] SARS-COV-2 COVID-19 2020-08-07 Completed [facility] VACCINE - (MODERNA) 00:00:00 [facility] SARS-COV-2 COVID-19 2020-08-07 Completed [facility] VACCINE - (MODERNA) 00:00:00 [facility] SARS-COV-2 COVID-19 2020-08-07 Completed [facility] VACCINE - (MODERNA) 00:00:00 [facility] SARS-COV-2 COVID-19 2020-08-07 Completed [facility] VACCINE - (MODERNA) 00:00:00 [facility] SARS-COV-2 COVID-19 2020-08-07 Completed [facility] VACCINE - (MODERNA) 00:00:00 [facility] SARS-COV-2 COVID-19 2020-08-07 Completed [facility] VACCINE - (MODERNA) 00:00:00 [facility] SARS-COV-2 COVID-19 2020-08-07 Completed [facility] VACCINE - (MODERNA) 00:00:00 [facility] SARS-COV-2 COVID-19 2020-08-07 Completed [facility] VACCINE - (MODERNA) 00:00:00 [facility] SARS-COV-2 COVID-19 2020-08-07 Completed [facility] VACCINE - (MODERNA) 00:00:00 [facility] SARS-COV-2 COVID-19 2020-08-07 Completed [facility] VACCINE - (MODERNA) 00:00:00 [facility] SARS-COV-2 COVID-19 2020-08-07 Completed [facility] VACCINE - (MODERNA) 00:00:00 [facility] SARS-COV-2 COVID-19 2020-08-07 Completed [facility] VACCINE - (MODERNA) 00:00:00 [facility] SARS-COV-2 COVID-19 2020-08-07 Completed [facility] VACCINE - (MODERNA) 00:00:00 [facility] SARS-COV-2 COVID-19 2020-08-07 Completed [facility] VACCINE - (MODERNA) 00:00:00 [facility] SARS-COV-2 COVID-19 2020-08-07 Completed [facility] VACCINE - (MODERNA) 00:00:00 [facility] SARS-COV-2 COVID-19 2020-08-07 Completed [facility] VACCINE - (MODERNA) 00:00:00 [facility] SARS-COV-2 COVID-19 2020-08-07 Completed [facility] VACCINE - (MODERNA) 00:00:00 [facility] SARS-COV-2 COVID-19 2020-08-07 Completed [facility] VACCINE - (MODERNA) 00:00:00 [facility] SARS-COV-2 COVID-19 2020-08-07 Completed [facility] VACCINE - (MODERNA) 00:00:00 [facility] SARS-COV-2 COVID-19 2020-08-07 Completed [facility] VACCINE - (MODERNA) 00:00:00 [facility] SARS-COV-2 COVID-19 2020-08-07 Completed [facility] VACCINE - (MODERNA) 00:00:00 [facility] SARS-COV-2 COVID-19 2020-08-07 Completed [facility] VACCINE - (MODERNA) 00:00:00 [facility] SARS-COV-2 COVID-19 2020-08-07 Completed [facility] VACCINE - (MODERNA) 00:00:00 [facility] SARS-COV-2 COVID-19 2020-08-07 Completed [facility] VACCINE - (MODERNA) 00:00:00 [facility] SARS-COV-2 COVID-19 2020-08-07 Completed [facility] VACCINE - (MODERNA) 00:00:00 [facility] SARS-COV-2 COVID-19 2020-08-07 Completed [facility] VACCINE - (MODERNA) 00:00:00 [facility] SARS-COV-2 COVID-19 2020-08-07 Completed [facility] VACCINE - (MODERNA) 00:00:00 [facility] SARS-COV-2 COVID-19 2020-08-07 Completed [facility] VACCINE - (MODERNA) 00:00:00 [facility] SARS-COV-2 COVID-19 2020-08-07 Completed [facility] VACCINE - (MODERNA) 00:00:00 [facility] SARS-COV-2 COVID-19 2020-08-07 Completed [facility] VACCINE - (MODERNA) 00:00:00 [facility] SARS-COV-2 COVID-19 2020-08-07 Completed [facility] VACCINE - (MODERNA) 00:00:00 [facility] SARS-COV-2 COVID-19 2020-08-07 Completed [facility] VACCINE - (MODERNA) 00:00:00 [facility] SARS-COV-2 COVID-19 2020-08-07 Completed [facility] VACCINE - (MODERNA) 00:00:00 [facility] SARS-COV-2 COVID-19 2020-08-07 Completed [facility] VACCINE - (MODERNA) 00:00:00 [facility] SARS-COV-2 COVID-19 2020-08-07 Completed [facility] VACCINE - (MODERNA) 00:00:00 [facility] SARS-COV-2 COVID-19 2020-08-07 Completed [facility] VACCINE - (MODERNA) 00:00:00 [facility] SARS-COV-2 COVID-19 2020-08-07 Completed [facility] VACCINE - (MODERNA) 00:00:00 [facility] SARS-COV-2 COVID-19 2020-08-07 Completed [facility] VACCINE - (MODERNA) 00:00:00 [facility] SARS-COV-2 COVID-19 2020-08-07 Completed [facility] VACCINE - (MODERNA) 00:00:00 [facility] SARS-COV-2 COVID-19 2020-08-07 Completed [facility] VACCINE - (MODERNA) 00:00:00 [facility] SARS-COV-2 COVID-19 2020-08-07 Completed [facility] VACCINE - (MODERNA) 00:00:00 [facility] SARS-COV-2 COVID-19 2020-08-07 Completed [facility] VACCINE - (MODERNA) 00:00:00 [facility] SARS-COV-2 COVID-19 2020-08-07 Completed [facility] VACCINE - (MODERNA) 00:00:00 [facility] SARS-COV-2 COVID-19 2020-08-07 Completed [facility] VACCINE - (MODERNA) 00:00:00 [facility] SARS-COV-2 COVID-19 2020-08-07 Completed [facility] VACCINE - (MODERNA) 00:00:00 [facility] SARS-COV-2 COVID-19 2020-08-07 Completed [facility] VACCINE - (MODERNA) 00:00:00 [facility] SARS-COV-2 COVID-19 2020-08-07 Completed [facility] VACCINE - (MODERNA) 00:00:00 [facility] SARS-COV-2 COVID-19 2020-08-07 Completed [facility] VACCINE - (MODERNA) 00:00:00 [facility] SARS-COV-2 COVID-19 2020-08-07 Completed [facility] VACCINE - (MODERNA) 00:00:00 [facility] SARS-COV-2 COVID-19 2020-08-07 Completed [facility] VACCINE - (MODERNA) 00:00:00 [facility] SARS-COV-2 COVID-19 2020-08-07 Completed [facility] VACCINE - (MODERNA) 00:00:00 [facility] SARS-COV-2 COVID-19 2020-08-07 Completed [facility] VACCINE - (MODERNA) 00:00:00 [facility] SARS-COV-2 COVID-19 2020-08-07 Completed Unive rsity of VACCINE - (MODERNA) 00:00:00 [facility] SARS-COV-2 COVID-19 2020-08-07 Completed Unive rsity of VACCINE - (MODERNA) 00:00:00 [facility] SARS-COV-2 COVID-19 2020-08-07 Completed [facility]ive [facility]ity of VACCINE - (MODERNA) 00:00:00 [facility] SARS-COV-2 COVID-19 2020-08-07 Completed Unive rsity of VACCINE - (MODERNA) 00:00:00 [facility] SARS-COV-2 COVID-19 2020-08-07 Completed [facility]ive rsity of VACCINE - (MODERNA) 00:00:00 [facility] SARS-COV-2 COVID-19 2020-08-07 Completed [facility]ive rsity of VACCINE - (MODERNA) 00:00:00 [facility] SARS-COV-2 COVID-19 2020-08-07 Completed [facility]ive rsity of VACCINE - (MODERNA) 00:00:00 [facility] SARS-COV-2 COVID-19 2020-08-07 Completed [facility] rsity of VACCINE - (MODERNA) 00:00:00 [facility] SARS-COV-2 COVID-19 2020-08-07 Completed Unive rsity of VACCINE - (MODERNA) 00:00:00 [facility] SARS-COV-2 COVID-19 2020-08-07 Completed [facility]ive rsity of VACCINE - (MODERNA) 00:00:00 [facility] SARS-COV-2 COVID-19 2020-08-07 Completed [facility]ive rsity of VACCINE - (MODERNA) 00:00:00 [facility] SARS-COV-2 COVID-19 2020-06-13 Completed Unive rsity of MODERNA 12+ YRS 00:00:00 [place] [facility] SARS-COV-2 COVID-19 2020-06-13 [...] Unive rsity of MODERNA 12+ YRS 00:00:00 [facility] ical VACCINE Branch SARS-COV-2 COVID-19 Unknown Completed Unive rsity of MODERNA 12+ YRS [facility] ical VACCINE Branch SARS-COV-2 COVID-19 Unknown Completed Unive rsity of MODERNA 12+ YRS [facility] ical VACCINE Branch HPV9 Unknown Completed [facility] Influenza Virus Unknown Completed Universit y of Vaccine Quad IM, [facility] dical Preserv and ABX Branch Free 6 MO-64 YRS (FLUCELVAX) SARS-COV-2 COVID-19 Unknown Completed Unive rsity of VACCINE - (MODERNA) [facility] SARS-COV-2 COVID-19 Unknown Completed [facility]ive rsity of VACCINE - (MODERNA) [facility] HPV9 Unknown Completed [facility] Rho (d) Immune Unknown Completed [facility] TDAP Unknown Completed [facility] Rho (d) Immune Unknown Completed [facility] SARS-COV-2 COVID-19 Unknown Completed Unive rsity of MODERNA 12+ YRS [facility] ical VACCINE Branch SARS-COV-2 COVID-19 Unknown Completed Unive rsity of MODERNA 12+ YRS [facility] ical VACCINE Branch HPV9 Unknown Completed [facility] Influenza Virus Unknown Completed Universit y of Vaccine [facility] IM, [facility] dical Preserv and ABX Branch Free 6 MO-64 YRS (FLUCELVAX) SARS-COV-2 COVID-19 Unknown Completed Unive rsity of VACCINE - (MODERNA) [facility] SARS-COV-2 COVID-19 Unknown Completed [facility]ive rsity of VACCINE - (MODERNA) [facility] HPV9 Unknown Completed [facility] Rho (d) Immune Unknown Completed [facility] TDAP Unknown Completed [facility] Rho (d) Immune Unknown Completed [facility] Influenza Virus Unknown Completed Universit y of Vaccine [facility] IM, [facility] dical Preserv and ABX Branch Free 6 MO-64 YRS (FLUCELVAX) SARS-COV-2 COVID-19 Unknown Completed Unive rsity of MODERNA 12+ YRS [facility] ical VACCINE Branch SARS-COV-2 COVID-19 Unknown Completed Unive rsity of MODERNA 12+ YRS [facility] ica VACCINE Branch HPV9 Unknown Completed [facility] Influenza Virus Unknown Completed Universit y of Vaccine Quad IM, [facility] dical Preserv and ABX Branch Free 6 MO-64 YRS (FLUCELVAX) SARS-COV-2 COVID-19 Unknown Completed [facility]ive rsity of VACCINE - (MODERNA) [facility] SARS-COV-2 COVID-19 Unknown Completed Unive rsity of VACCINE - (MODERNA) [facility] HPV9 Unknown Completed [facility] Rho (d) Immune Unknown Completed [facility] SARS-COV-2 COVID-19 Unknown Completed Unive rsity of MODERNA 12+ YRS [facility] ica VACCINE Branch SARS-COV-2 COVID-19 Unknown Completed Unive rsity of MODERNA 12+ YRS [facility] VACCINE Branch HPV9 Unknown Completed [facility] Influenza Virus Unknown Completed Universit y of Vaccine Quad IM, [facility] dical Preserv and ABX Branch Free 6 MO-64 YRS (FLUCELVAX) SARS-COV-2 COVID-19 Unknown Completed Unive rsity of VACCINE - (MODERNA) [facility] SARS-COV-2 COVID-19 Unknown Completed Unive rsity of VACCINE - (MODERNA) [facility] HPV9 Unknown Completed [facility] Rho (d) Immune Unknown Completed [facility] SARS-COV-2 COVID-19 Unknown Completed Unive rsity of MODERNA 12+ YRS [facility] ica VACCINE Branch SARS-COV-2 COVID-19 Unknown Completed Unive rsity of MODERNA 12+ YRS [facility] VACCINE Branch HPV9 Unknown Completed [facility] Influenza Virus Unknown Completed [facility]it y of Vaccine Quad IM, [facility] dical Preserv and ABX Branch Free 6 MO-64 YRS (FLUCELVAX) SARS-COV-2 COVID-19 Unknown Completed Unive rsity of VACCINE - (MODERNA) [facility] [place] SARS-COV-2 COVID-19 Unknown Completed [facility]ive rsity of VACCINE - (MODERNA) [facility] HPV9 Unknown Completed [facility] Rho (d) Immune Unknown Completed [facility] SARS-COV-2 COVID-19 Unknown Completed Unive rsity of MODERNA 12+ YRS [place] [facility] VACC[facility] SARS-COV-2 COVID-19 Unknown Completed Unive rsity of MODERNA 12+ YRS [facility] ical VACCINE Branch HPV9 Unknown Completed [facility] Influenza Virus Unknown Completed Universit y of Vaccine Quad IM, [facility] dical Preserv and ABX Branch Free 6 MO-64 YRS (FLUCELVAX) SARS-COV-2 COVID-19 Unknown Completed Unive rsity of VACCINE - (MODERNA) [facility] SARS-COV-2 COVID-19 Unknown Completed [facility] rsity of VACCINE - (MODERNA) [facility] [place] HPV9 Unknown Completed [facility] Rho (d) Immune Unknown Completed [facility] SARS-COV-2 COVID-19 Unknown Completed Unive rsity of MODERNA 12+ YRS [facility] ical VACCINE Branch SARS-COV-2 COVID-19 Unknown Completed Unive rsity of MODERNA 12+ YRS [facility] ical VACCINE Branch HPV9 Unknown Completed [facility] Influenza Virus Unknown Completed [facility] Vaccine [facility], [place] dical Preserv and ABX Branch Free 6 MO-64 YRS (FLUCELVAX) SARS-COV-2 COVID-19 Unknown Completed Unive rsity of VACCINE - (MODERNA) [facility] SARS-COV-2 COVID-19 Unknown Completed Unive rsity of VACCINE - (MODERNA) [facility] HPV9 Unknown Completed [facility] Rho (d) Immune Unknown Completed [facility] SARS-COV-2 COVID-19 Unknown Completed Unive rsity of MODERNA 12+ YRS [facility] ical VACCINE Branch SARS-COV-2 COVID-19 Unknown Completed Unive rsity of MODERNA 12+ YRS [facility] ical VACCINE Branch HPV9 Unknown Completed [facility] Influenza Virus Unknown Completed [facility], [place] dical Preserv and ABX Branch Free 6 MO-64 YRS (FLUCELVAX) SARS-COV-2 COVID-19 Unknown Completed [facility]ive [facility]ity of VACCINE - (MODERNA) [facility] [place] SARS-COV-2 COVID-19 Unknown Completed [facility]ive rsity of VACCINE - (MODERNA) [facility] HPV9 Unknown Completed [facility] Rho (d) Immune Unknown Completed [facility] SARS-COV-2 COVID-19 Unknown Completed Unive rsity of MODERNA 12+ YRS [facility] ical VACCINE Branch SARS-COV-2 COVID-19 Unknown Completed Unive rsity of MODERNA 12+ YRS [facility] ical VACCINE Branch HPV9 Unknown Completed [facility] Influenza Virus Unknown Completed [facility]it y of Vaccine Quad , [facility] dical Preserv and ABX Branch Free 6 MO-64 YRS (FLUCELVAX) SARS-COV-2 COVID-19 Unknown Completed Unive rsity of VACCINE - (MODERNA) [facility] SARS-COV-2 COVID-19 Unknown Completed Unive rsity of VACCINE - (MODERNA) [facility] HPV9 Unknown Completed [facility] Rho (d) Immune Unknown Completed [facility] SARS-COV-2 COVID-19 Unknown Completed Unive rsity of MODERNA 12+ YRS [facility] ical VACCINE Branch SARS-COV-2 COVID-19 Unknown Completed Unive rsity of MODERNA 12+ YRS [facility] ical VACCINE Branch HPV9 Unknown Completed [facility] Influenza Virus Unknown Completed [facility] y of Vaccine Quad , [facility] dical Preserv and ABX Branch Free 6 MO-64 YRS (FLUCELVAX) SARS-COV-2 COVID-19 Unknown Completed Unive rsity of VACCINE - (MODERNA) [facility] SARS-COV-2 COVID-19 Unknown Completed [facility]ive rsity of VACCINE - (MODERNA) [facility] HPV9 Unknown Completed [facility] Rho (d) Immune Unknown Completed [facility] SARS-COV-2 COVID-19 Unknown Completed Unive rsity of MODERNA 12+ YRS [facility] ical VACCINE Branch SARS-COV-2 COVID-19 Unknown Completed Unive rsity of MODERNA 12+ YRS [facility] HPV9 Unknown Completed [facility] Influenza Virus Unknown Completed [facility]it y of Vaccine Quad , [facility] dical Preserv and ABX Branch Free 6 MO-64 YRS (FLUCELVAX) SARS-COV-2 COVID-19 Unknown Completed Unive rsity of VACCINE - (MODERNA) [facility] SARS-COV-2 COVID-19 Unknown Completed [facility]ive rsity of VACCINE - (MODERNA) [facility] HPV9 Unknown Completed [facility] Rho (d) Immune Unknown Completed [facility] TDAP Unknown Completed [facility] Rho (d) Immune Unknown Completed [facility] Influenza Virus Unknown Completed Universit y of Vaccine Quad IM, [facility] dical Preserv and ABX Branch Free 6 MO-64 YRS (FLUCELVAX) SARS-COV-2 COVID-19 Unknown Completed Unive rsity of MODERNA 12+ YRS [facility] VACCINE Branch SARS-COV-2 COVID-19 Unknown Completed Unive rsity of MODERNA 12+ YRS [facility] VACCINE Branch HPV9 Unknown Completed [facility] Influenza Virus Unknown Completed Universit y of Vaccine Quad IM, [facility] dical Preserv and ABX Branch Free 6 MO-64 YRS (FLUCELVAX) SARS-COV-2 COVID-19 Unknown Completed Unive rsity of VACCINE - (MODERNA) [facility] SARS-COV-2 COVID-19 Unknown Completed Unive rsity of VACCINE - (MODERNA) [facility] HPV9 Unknown Completed [facility] Rho (d) Immune Unknown Completed [facility] TDAP Unknown Completed [facility] Rho (d) Immune Unknown Completed [facility] Influenza Virus Unknown Completed [facility]it y of Vaccine Quad IM, [facility] dical Preserv and ABX Branch Free 6 MO-64 YRS (FLUCELVAX) SARS-COV-2 COVID-19 Unknown Completed Unive rsity of MODERNA 12+ YRS [facility] VACCINE Branch SARS-COV-2 COVID-19 Unknown Completed Unive rsity of MODERNA 12+ YRS [facility] VACCINE Branch HPV9 Unknown Completed [facility] Influenza Virus Unknown Completed Universit y of Vaccine Quad IM, [facility] dical Preserv and ABX Branch Free 6 MO-64 YRS (FLUCELVAX) SARS-COV-2 COVID-19 Unknown Completed Unive rsity of VACCINE - (MODERNA) [facility] SARS-COV-2 COVID-19 Unknown Completed Unive rsity of VACCINE - (MODERNA) [facility] HPV9 Unknown Completed [facility] Rho (d) Immune Unknown Completed [facility] TDAP Unknown Completed [facility] Rho (d) Immune Unknown Completed [facility] Influenza Virus Unknown Completed Universit y of Vaccine Quad IM, [facility] dical Preserv and ABX Branch Free 6 MO-64 YRS (FLUCELVAX) SARS-COV-2 COVID-19 Unknown Completed Unive rsity of MODERNA 12+ YRS [facility] ica VACCINE Branch SARS-COV-2 COVID-19 Unknown Completed Unive rsity of MODERNA 12+ YRS [facility] VACCINE Branch HPV9 Unknown Completed [facility] Influenza Virus Unknown Completed Universit y of Vaccine Quad IM, [facility] dical Preserv and ABX Branch Free 6 MO-64 YRS (FLUCELVAX) SARS-COV-2 COVID-19 Unknown Completed Unive rsity of VACCINE - (MODERNA) [facility] SARS-COV-2 COVID-19 Unknown Completed Unive rsity of VACCINE - (MODERNA) [facility] HPV9 Unknown Completed [facility] Rho (d) Immune Unknown Completed [facility] TDAP Unknown Completed [facility] Rho (d) Immune Unknown Completed [facility] Influenza Virus Unknown Completed Universit y of Vaccine Quad IM, [facility] dical Preserv and ABX Branch Free 6 MO-64 YRS (FLUCELVAX) SARS-COV-2 COVID-19 Unknown Completed Unive rsity of MODERNA 12+ YRS [facility] ica VACCINE Branch SARS-COV-2 COVID-19 Unknown Completed Unive rsity of MODERNA 12+ YRS [facility] VACCINE Branch HPV9 Unknown Completed [facility] Influenza Virus Unknown Completed [facility]it y of Vaccine Quad IM, [facility] dical Preserv and ABX Branch Free 6 MO-64 YRS (FLUCELVAX) SARS-COV-2 COVID-19 Unknown Completed Unive rsity of VACCINE - (MODERNA) [facility] SARS-COV-2 COVID-19 Unknown Completed Unive rsity of VACCINE - (MODERNA) [facility] HPV9 Unknown Completed [facility] Rho (d) Immune Unknown Completed [facility] TDAP Unknown Completed [facility] Rho (d) Immune Unknown Completed [facility] Influenza Virus Unknown [facility] [place] [facility] Preserv and ABX Branch Free 6 MO-64 YRS (FLUCELVAX) Vital Signs Vital Name Observation Time Observation Value Comments Source Systolic blood 2023-02-05 20:57:00 130 mm[Hg] Univer sity of pressure [facility] Diastolic blood 2023-02-05 20:57:00 78 mm[Hg] Unive rsity of pressure [facility] Heart rate 2023-02-05 20:57:00 100 /min Universi ty of [facility] Body temperature 2023-02-05 20:57:00 35.72 Tiffanie Univ ers[facility] of [facility] Respiratory rate 2023-02-05 20:57:00 18 /min Univ ersity of [facility] Body height 2023-02-05 20:57:00 165.1 cm [facility] of [facility] Body weight 2023-02-05 20:57:00 91.808 kg [facility] of [facility] BMI 2023-02-05 20:57:00 33.68 kg/m2 Universi ty of [facility] Systolic blood 2023-01-23 18:24:00 121 mm[Hg] Univer sity of pressure [facility] Diastolic blood 2023-01-23 18:24:00 67 mm[Hg] Unive rsity of pressure [facility] Heart rate 2023-01-23 18:24:00 91 /min [facility] of [facility] Body temperature 2023-01-23 18:24:00 36.78 T[place] [facility] of [facility] Respiratory rate 2023-01-23 18:24:00 18 /min Univ ers[facility] of [facility] Body height 2023-01-23 18:24:00 165.1 cm [facility]i ty of [facility] Body weight 2023-01-23 18:24:00 90.992 kg [facility]i ty of [facility] BMI 2023-01-23 18:24:00 33.38 kg/m2 [facility] ty of [facility] Systolic blood 2023-01-10 14:37:00 120 mm[Hg] Univer sity of pressure [facility] Diastolic blood 2023-01-10 14:37:00 61 mm[Hg] Unive rsity of pressure [facility] Heart rate 2023-01-10 14:37:00 95 /min [facility] Body temperature 2023-01-10 14:37:00 36.11 T[place]anie [facility] Respiratory rate 2023-01-10 14:37:00 17 /min Univ ers[facility] of [facility] Body height 2023-01-10 14:37:00 165.1 cm [facility] Body weight 2023-01-10 14:37:00 91.082 kg [facility] BMI 2023-01-10 14:37:00 33.41 kg/m2 [facility] Systolic blood 2022-12-21 14:21:00 103 mm[Hg] Univer sity of pressure [facility] Diastolic blood 2022-12-21 14:21:00 58 mm[Hg] Unive rsity of pressure [facility] Heart rate 2022-12-21 14:21:00 80 /min [facility] Body temperature 2022-12-21 14:21:00 36.56 [place] [facility] Respiratory rate 2022-12-21 14:21:00 20 /min [facility] Body height 2022-12-21 14:21:00 165.1 cm [facility] Body weight 2022-12-21 14:21:00 88.86 kg [facility] BMI 2022-12-21 14:21:00 32.60 kg/m2 [facility] Systolic blood 2022-12-12 19:09:00 110 mm[Hg] Univer [facility]ity of pressure [facility] Diastolic blood 2022-12-12 19:09:00 62 mm[Hg] Unive rsity of pressure [facility] Heart rate 2022-12-12 19:09:00 84 /min [facility] Body temperature 2022-12-12 19:09:00 36 T[place] [facility] Respiratory rate 2022-12-12 19:09:00 18 /min [facility] of [facility] Body height 2022-12-12 19:09:00 165.1 cm [facility] [place] [facility] Body weight 2022-12-12 19:09:00 88.587 kg [facility] BMI 2022-12-12 19:09:00 32.50 kg/m2 [facility] Systolic blood 2022-12-07 15:05:00 120 mm[Hg] Univer sity of pressure [facility] Diastolic blood 2022-12-07 15:05:00 64 mm[Hg] Unive rsity of pressure [facility] Heart rate 2022-12-07 15:05:00 85 /min [facility] Body temperature 2022-12-07 15:05:00 36.33 T[place] [facility] Respiratory rate 2022-12-07 15:05:00 20 /min [facility] Body height 2022-12-07 15:05:00 165.1 cm [facility] Body weight 2022-12-07 15:05:00 89.585 kg [facility] BMI 2022-12-07 15:05:00 32.87 kg/m2 [facility] Systolic blood 2022-11-16 14:49:00 126 mm[Hg] Univer sity of pressure [facility] Diastolic blood 2022-11-16 14:49:00 67 mm[Hg] Unive rsity of pressure [facility] Heart rate 2022-11-16 14:49:00 91 /min [facility] Body temperature 2022-11-16 14:49:00 35.72 [place] [facility] Respiratory rate 2022-11-16 14:49:00 18 /min [facility] Body height 2022-11-16 14:49:00 165.1 cm [facility] Body weight 2022-11-16 14:49:00 86.546 kg [facility] BMI 2022-11-16 14:49:00 31.75 kg/m2 [facility] Systolic blood 2022-10-26 20:50:00 114 mm[Hg] Univer sity of pressure [facility] Diastolic blood 2022-10-26 20:50:00 62 mm[Hg] Unive rsity of pressure [facility] Heart rate 2022-10-26 20:50:00 75 /min [facility] Body temperature 2022-10-26 20:50:00 36.06 T[place]anie [facility] Respiratory rate 2022-10-26 20:50:00 18 /min [facility] Body height 2022-10-26 20:50:00 165.1 cm [facility] Body weight 2022-10-26 20:50:00 86.093 kg [facility] BMI 2022-10-26 20:50:00 31.58 kg/m2 [facility] Systolic blood 2022-09-18 20:35:00 124 mm[Hg] Univer sity of pressure [facility] Diastolic blood 2022-09-18 20:35:00 71 mm[Hg] Unive rsity of pressure [facility] Heart rate 2022-09-18 20:35:00 78 /min [facility] Body temperature 2022-09-18 20:35:00 36.39 T[place] [facility] Respiratory rate 2022-09-18 20:35:00 18 /min [facility] Body height 2022-09-18 20:35:00 165.1 cm [facility] [place] [facility] Body weight 2022-09-18 20:35:00 79.465 kg [facility] BMI 2022-09-18 20:35:00 29.15 kg/m2 [facility] Systolic blood 2022-08-21 20:20:00 115 mm[Hg] Univer sity of pressure [facility] Diastolic blood 2022-08-21 20:20:00 66 mm[Hg] Unive rsity of pressure [facility] Heart rate 2022-08-21 20:20:00 80 /min [facility] Body temperature 2022-08-21 20:20:00 35.61 T[place] [facility] Respiratory rate 2022-08-21 20:20:00 18 /min [facility] Body height 2022-08-21 20:20:00 165.1 cm [facility] Body weight 2022-08-21 20:20:00 77.701 kg [facility] BMI 2022-08-21 20:20:00 28.51 kg/m2 [facility] Systolic blood 2022-07-24 18:20:00 120 mm[Hg] Univer sity of pressure [facility] Diastolic blood 2022-07-24 18:20:00 66 mm[Hg] Unive rsity of pressure [facility] Heart rate 2022-07-24 18:20:00 60 /min [facility]i ty of [facility] Body temperature 2022-07-24 18:20:00 36.28 T[place] [facility] of [facility] Respiratory rate 2022-07-24 18:20:00 18 /min Univ ers[facility] of [facility] Body height 2022-07-24 18:20:00 165.1 cm [facility] [place] Body weight 2022-07-24 18:20:00 77.021 kg [facility] [place] BMI 2022-07-24 18:20:00 28.26 kg/m2 [facility] Systolic blood 2022-04-11 22:15:00 120 mm[Hg] Univer sity of pressure [facility] Diastolic blood 2022-04-11 22:15:00 73 mm[Hg] Unive rsity of pressure [facility] Heart rate 2022-04-11 22:15:00 68 /min [facility] [place] Body height 2022-04-11 22:15:00 167.6 cm [facility] [place] Body weight 2022-04-11 22:15:00 81.647 kg [facility] BMI 2022-04-11 22:15:00 29.05 kg/m2 Universi ty of [facility] Oxygen saturation in 2022-04-11 22:15:00 99 /min [facility] of Arterial blood by [facility] Pulse oximetry Branch Systolic blood 2022-03-28 21:22:00 116 mm[Hg] Univer sity of pressure [facility] [place] Diastolic blood 2022-03-28 21:22:00 71 mm[Hg] Unive rsity of pressure [facility] Heart rate 2022-03-28 21:22:00 70 /min [facility]i ty of [facility] Body temperature 2022-03-28 21:22:00 36.83 [place] [facility] Respiratory rate 2022-03-28 21:22:00 16 /min [facility] Body height 2022-03-28 21:22:00 162.6 cm [facility] Body weight 2022-03-28 21:22:00 77.656 kg [facility] BMI 2022-03-28 21:22:00 29.39 kg/m2 [facility] Oxygen saturation in 2022-03-28 21:22:00 99 /min [facility] of Arterial blood by [employer] senait Pulse oximetry Branch Systolic blood 2022-03-27 16:40:00 116 mm[Hg] [facility] Diastolic blood 2022-03-27 16:40:00 69 mm[Hg] [facility] Heart rate 2022-03-27 16:40:00 74 /min [facility] Body temperature 2022-03-27 16:40:00 37.11 Tiffanie [facility] Respiratory rate 2022-03-27 16:40:00 18 /min [facility] Body height 2022-03-27 16:40:00 162.6 cm [facility] Body weight 2022-03-27 16:40:00 77.565 kg [facility] BMI 2022-03-27 16:40:00 29.35 kg/m2 [facility] Systolic blood 2022-03-24 00:54:08 122 mm[Hg] [facility] Diastolic blood 2022-03-24 00:54:08 77 mm[Hg] [facility] Heart rate 2022-03-24 00:54:08 85 /min [facility] Body temperature 2022-03-24 00:54:08 36.39 Tiffanie [facility] Respiratory rate 2022-03-24 00:54:08 18 /min [facility] Oxygen saturation in 2022-03-24 00:54:08 100 /min University of Arterial blood by [employer] senait Pulse oximetry Branch Body weight 2022-03-23 19:30:00 81.647 kg [facility] BMI 2022-03-23 19:30:00 29.95 kg/m2 [facility] Systolic blood 2022-03-23 18:51:00 112 mm[Hg] [facility] Diastolic blood 2022-03-23 18:51:00 70 mm[Hg] Unive rsity of pressure [facility] Heart rate 2022-03-23 18:51:00 2 /min [facility] Body temperature 2022-03-23 18:51:00 37.22 Tiffanie [facility] Respiratory rate 2022-03-23 18:51:00 17 /min [facility] Body weight 2022-03-23 18:51:00 72.576 kg [facility] [place] [facility] [place] BMI 2022-03-23 18:51:00 26.63 kg/m2 [facility] Oxygen saturation in 2022-03-23 18:51:00 100 /min [facility] Arterial blood by [facility] Pulse oximetry Branch Systolic blood 2022-03-15 20:07:00 108 mm[Hg] Univer sity of pressure [facility] Diastolic blood 2022-03-15 20:07:00 69 mm[Hg] Unive rsity of pressure [facility] Heart rate 2022-03-15 20:07:00 73 /min [facility] Body temperature 2022-03-15 20:07:00 37.06 Tiffanie [facility] Respiratory rate 2022-03-15 20:07:00 18 /min [facility] Body height 2022-03-15 20:07:00 165.1 cm [facility] Body weight 2022-03-15 20:07:00 78.019 kg [facility] BMI 2022-03-15 20:07:00 28.62 kg/m2 [facility] Systolic blood 2022-02-22 21:55:00 117 mm[Hg] Univer sity of [facility] Diastolic blood 2022-02-22 21:55:00 71 mm[Hg] Unive rsity of pressure [facility] Heart rate 2022-02-22 21:55:00 69 /min [facility] Body temperature 2022-02-22 21:55:00 36.67 Tiffanie [facility] Respiratory rate 2022-02-22 21:55:00 18 /min [facility] Body height 2022-02-22 21:55:00 165.1 cm [facility] Body weight 2022-02-22 21:55:00 77.111 kg [facility] BMI 2022-02-22 21:55:00 28.29 kg/m2 [facility] Systolic blood 2022-01-24 20:48:00 113 mm[Hg] [facility] Diastolic blood 2022-01-24 20:48:00 69 mm[Hg] [facility] Heart rate 2022-01-24 20:48:00 74 /min [facility] Body temperature 2022-01-24 20:48:00 36.72 Tiffanie [facility] Respiratory rate 2022-01-24 20:48:00 18 /min [facility] Body height 2022-01-24 20:48:00 165.1 cm [facility] Body weight 2022-01-24 20:48:00 75.751 kg [facility] BMI 2022-01-24 20:48:00 27.79 kg/m2 [facility] Systolic blood 2022-01-06 18:28:00 110 mm[Hg] [facility] Diastolic blood 2022-01-06 18:28:00 69 mm[Hg] [facility] Heart rate 2022-01-06 18:28:00 74 /min [facility] Body temperature 2022-01-06 18:28:00 36.89 Tiffanie [facility] [place] [facility] Respiratory rate 2022-01-06 18:28:00 18 /min [facility] Body height 2022-01-06 18:28:00 160 cm [facility] Body weight 2022-01-06 18:28:00 75.841 kg [facility] BMI 2022-01-06 18:28:00 29.62 kg/m2 [facility] Systolic blood 2021-12-30 15:10:00 116 mm[Hg] [facility] Diastolic blood 2021-12-30 15:10:00 79 mm[Hg] [facility] rate 2021-12-30 15:10:00 78 /min [facility] Body temperature 2021-12-30 15:10:00 36.78 Tiffanie [facility] rate 2021-12-30 15:10:00 18 /min [facility] Body height 2021-12-30 15:10:00 160 cm [facility] Body weight 2021-12-30 15:10:00 75.841 kg [facility] BMI 2021-12-30 15:10:00 29.62 kg/m2 [facility] Procedures Procedure Date / Time Performing Clinician Source Performed POCT URINALYSIS 2023-02-05 20:59:00 Shanthi Bauer [facility] POCT URINALYSIS 2023-01-23 18:27:00 Shanthi Bauer [facility] FLU VACC ([id number]), 6 2023-01-10 15:20:48 Shanthi Bauer [facility] MO-63 YRS, .5ML, IM, Medical Bra nch QUAD (FLUCELVAX) ASSIGNMENT OF BENEFITS 2023-01-10 14:19:55 Doctor Unassigned, No [facility] POCT URINALYSIS 2023-01-10 00:00:00 Shanthi Bauer [facility] HB ABO GROUPING 2022-12-21 15:25:00 Shanthi Bauer [facility] SYPHILIS IGG/IGM 2022-12-21 15:25:00 Shanthi Bauer [facility] TDAP VACCINE, >11 YRS, 2022-12-21 14:48:46 Shanthi Bauer [facility] POCT URINALYSIS 2022-12-21 00:00:00 Shanthi Bauer [facility] SECOND AND THIRD 2022-12-12 20:43:00 Shanthi Bauer [facility] TRIMESTER ULTRASOUND [facility] POCT URINALYSIS 2022-12-12 19:12:00 Shanthi Bauer [facility] POCT URINALYSIS 2022-12-07 00:00:00 Shanthi Bauer [facility] POCT URINALYSIS 2022-11-16 14:50:00 Shanthi Bauer [facility] MISCELLANEOUS SENDOUT 2022-11-10 05:01:00 Doctor Unassigned, No [facility] TEST [facility] SECOND AND THIRD 2022-10-31 20:25:00 Shanthi Bauer [facility] TRIMESTER ULTRASOUND [facility] SECOND AND THIRD 2022-10-31 20:20:00 Shanthi Bauer [facility] ULTRASOUND [facility] POCT URINALYSIS 2022-10-26 20:52:00 Shanthi Bauer [facility] POCT URINALYSIS 2022-09-18 20:36:00 Shanthi Bauer [facility] POCT URINALYSIS 2022-08-21 20:21:00 Shanthi Bauer [facility] FLU VACC ([id number]), 6 2022-07-24 19:22:36 Shanthi Bauer [facility] MO-64 YRS, .5ML, IM, Medical Bra [facility] QUAD (FLUCELVAX) POCT URINALYSIS W/O 2022-07-24 18:12:00 [facility] SPECIFIC GRAVITY [facility] POCT TEST 2022-07-24 18:11:00 Shanthi Bauer Uni [facility] REPORT OF 2022-07-24 05:01:00 Doctor Unassigned, No [facility] BENEFITS 2022-07-10 14:33:07 Doctor Unassigned, No [facility] US OB TRANSVAGINAL 2022-03-28 22:39:19 Adum, Rosibel [facility] GARDASIL 9 (HPV 9V) 2022-03-28 22:12:39 Adum, Rosibel oMntana [facility] VACCINE [facility] ROAD BUILDER CLINIC ULTRASOUND 2022-03-28 06:01:00 Doctor Unassigned, No [facility] PHYSICIAN ORDERS 2022-03-27 06:01:00 Doctor Unassigned, No [facility] FIRST 2022-03-24 20:40:00 Amena Betancourt [facility] TRIMESTER LESS THAN 14 Medical B ranch WEEKS WITH TRANSVAGINAL CT CHEST PULMONARY 2022-03-23 22:38:10 Susan Mackay [facility] ANGIOGRAM Medical Branch D-DIMER 2022-03-23 20:59:00 Susan Mackay [facility] MAGNESIUM 2022-03-23 20:20:00 Michelle [facility] TROPONIN I 2022-03-23 20:20:00 Michelle [facility] COMP. METABOLIC PANEL 2022-03-23 20:20:00 Susan Mackay [facility] ([id number]) [facility] CBC WITH DIFF 2022-03-23 20:20:00 Susan Mackay [facility] URINALYSIS 2022-03-23 20:20:00 Michelle [facility] N-TERMINAL PRO-BNP 2022-03-23 20:20:[address] [facility] CONSENT/REFUSAL FOR 2022-03-23 19:04:36 Doctor Unassigned, No Un [facility] DIAGNOSIS AND TREATMENT [facility] POCT URINALYSIS W/O 2022-03-15 20:09:00 [facility] SPECIFIC GRAVITY [facility] US FIRST 2022-03-03 20:49:57 Amnea Betancourt [facility] TRIMESTER LESS THAN 14 Medical B ranch WEEKS WITH TRANSVAGINAL GC & CHLAMYDIA AMPLIFIED 2022-02-22 22:34:00 Amena Betancourt [facility] TRICHOMONAS AMPLIFIED 2022-02-22 22:34:00 Amena [facility] (), 6 2022-02-22 22:18:33 Amena Betancourt [facility] MO-64 YRS, .5ML, IM, Medical [facility] QUAD (FLUCELVAX) POCT URINALYSIS W/O 2022-02-22 00:00:00 Amena Betancourt [facility] SPECIFIC GRAVITY [facility] ASSIGNMENT OF BENEFITS 2022-02-18 14:49:18 Doctor Unassigned, No [facility] Name [facility] POCT TEST 2022-01-06 18:43:00 Honorio Jareth [facility] GARDASIL 9 (HPV 9V) 2021-12-30 16:46:05 Jareth Olmedo [facility] VACCINE [facility] POCT TEST 2021-12-30 15:29:00 [facility] Encounters Start End Encounter Admission Attending Care Care Encounter Source Date/Time Date/Time Type Type Clinicians Facility Department ID 2021-07-09 Outpatient [facility] [id number] [place] 00:38:59 [facility] 2023-02-06 2023-02-06 Outpatient R LIZETTE, [facility] [id number] Univers 11:00:00 11:00:00 SHANTHI ity o f [facility] 2023-02-05 2023-02-05 Outpatient R AKINSIPE, [facility] [id number] Univers 16:00:00 16:12:16 SHANTHI ity o f [facility] 2023-02-05 2023-02-05 Routine Akinsipe, [facility] [id number] Univers 16:00:00 16:12:[address] BUILDER 350.1.13.10 ity of Visit REGIONAL 4.2.7.2.686 Anil as MATERNAL [id number] [facility] ical & CHILD [address] [place] [address] 2023-01-24 2023-01-24 Outpatient R LIZETTE, [facility] [id number] Univers 10:30:00 10:30:00 SHANTHI ity o f [facility] 2023-01-23 2023-01-23 Outpatient R AKINSIPE, [facility] [id number] Univers 14:00:00 14:00:15 SHANTHI ity o [facility] 2023-01-23 2023-01-23 Routine Akinpe, [facility] 1.2.065.695 [id number] Univers 14:00:00 14:00:[address] BUILDER 350.1.13.10 ity of Visit REGIONAL 4.2.7.2.686 Anil as MATERNAL [phone] [facility] & CHILD [address] [place] [address] 2023-01-10 2023-01-10 Outpatient R LIZETTE, [facility] [id number] Univers 10:30:00 10:58:10 SHANTHI ity o [facility] 2023-01-10 2023-01-10 Routine [facility], [facility] 1.2.254.310 [id number] Univers 10:30:00 10:58:[address] BUILDER 350.1.13.10 ity of Visit [employer] 4.2.7.2.686 Anil as MATERNAL [id number] [facility] & CHILD [address] [place] [address] 2023-01-10 2023-01-10 Orders Doctor PHILIP 1.2.840.114 [id number] Univers 00:00:00 00:00:00 Only Unassigned, JOYCE 350.1.13.10 ity of [place] [facility] 4.2.7.2.686 Anil as [id number] [address] 2023-01-04 2023-01-04 Outpatient R AKINJEOVANNYPE, [facility] [id number] Univers 10:15:00 10:15:00 SHANTHI ity o [facility] 2022-12-21 2022-12-21 Outpatient R LIZETTE, [facility] [id number] Univers 09:45:00 10:30:23 SHANTHI ity o f [facility] 2022-12-21 2022-12-21 Routine Akinsipe, [facility] [id number] Univers 09:45:00 10:30:[address] BUILDER 350.1.13.10 ity of Visit REGIONAL 4.2.7.2.686 Anil as MATERNAL [id number] [facility] ical & CHILD [address] [place] [address] 2022-12-13 2022-12-13 Abstract Akinsipe, [facility] 1.2.840.114 [id number] Univers 00:00:00 00:00:[address] BUILDER 350.1.13.10 ity of REGIONAL 4.2.7.2.686 Anil as MATERNAL [id number] [facility] & CHILD [address] [place] [address] 2022-12-13 2022-12-13 Patient Akinpe, [facility] [id number] Univers 00:00:00 00:00:00 Secure Msg Shanthi C ROAD BUILDER 350.1.13.10 ity of REGIONAL 4.2.7.2.686 Anil as MATERNAL [id number] [facility] & [address] 2022-12-12 2022-12-12 Outpatient P EDUARDO [facility] [id number] Univers 15:30:00 15:36:22 LISA it y of SAVELINO [facility] 2022-12-12 2022-12-12 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 13.10 ity of REGIONAL 4.2.7.2.686 Anil as MATERNAL [id number] [facility] & CHILD [address] [place] [facility] 2022-12-12 2022-12-12 Routine Akinpe, [facility] 1.2.970.119 [id number] Univers 14:00:00 14:37:[address] BUILDER 350.1.13.10 ity of Visit REGIONAL 4.2.7.2.686 Anil as MATERNAL [id number] [address] 2022-12-12 2022-12-12 [facility] 1.2.840.114 [id number] Univers 00:00:00 00:00:[address] BUILDER 350.1.13.10 ity of [employer] 4.2.7.2.686 Anil as MATERNAL [id number] [address] 2022-12-07 2022-12-07 Outpatient R LIZETTE [facility] [id number] Univers 10:30:00 11:43:28 SHANTHI ity o f [facility] 2022-12-07 2022-12-07 Routine Lizette, [facility] 1.2.631.568 [id number] Univers 10:30:00 11:43:[address] BUILDER 350.1.13.10 ity of Visit REGIONAL 4.2.7.2.686 Anil as MATERNAL [id number] [address] 2022-11-17 2022-11-17 Telephone [facility] 1.2.840.114 [id number] Univers 00:00:00 00:00:00 Ambre SPECIALTY 350.1.13.10 ity of [place].7.2.686 [place] [id number] [address] 2022-11-16 2022-11-16 Outpatient R LIZETTE, [facility] [id number] Univers 10:30:00 10:36:09 SHANTHI ity o f [facility] 2022-11-16 2022-11-16 Routine Akinandrea, [facility] 1.2.040.796 [id number] Univers 10:30:00 10:36:[address] BUILDER 350.1.13.10 ity of Visit REGIONAL 4.2.7.2.686 Anil as MATERNAL [id number] [facility] & CHILD [address] [place] [address] 2022-11-10 2022-11-10 Outpatient JA BEAR [facility] [id number] Univers 09:45:00 10:30:26 ity of [facility] 2022-11-10 2022-11-10 Telemedici Amber Rey [facility] 1.2.8 40.114 [id number] Univers 09:45:00 10:30:26 ne Visit Ja Saldana ROAD BUILDER 350.1.13.10 ity of [employer] 4.2.7.2.686 Anil as MATERNAL [id number] [facility] ical & CHILD [address] [place] [address] 2022-11-10 2022-11-10 Telephone Lizette [facility] 1.2.840.114 [id number] Univers 00:00:00 00:00:[address] BUIL[address] 350.1.13.10 ity of [employer] 4.2.7.2.686 Anil as MATERNAL [id number] [facility] & CHILD [address] [place] [address] 2022-11-10 2022-11-10 Orders Doctor PHILIP 1.2.840.114 [id number] Univers 00:00:00 00:00:00 Only Unassigned, JOYCE 350.1.13.10 ity of [place] [facility] 4.2.7.2.686 Anil as [id number] [address] 2022-11-10 2022-11-10 Patient Lizette [facility] 1.2.437.257 [id number] Univers 00:00:00 00:00:00 Secure Msg Shanthi C ROAD BUILDER 350.1.13.10 ity of [employer] 4.2.7.2.686 Anil as MATERNAL [id number] [facility] & CHILD [address] [place] [address] 2022-11-10 2022-11-10 Patient Lizette [facility] 1.2.759.052 [id number] Univers 00:00:00 00:00:00 Secure Msg Shanthi C ROAD BUILDER 350.1.13.10 ity of [employer] 4.2.7.2.686 Anil as MATERNAL [id number] [facility] & CHILD [address] [place] [address] 2022-11-07 2022-11-07 Abstract Lizette [facility] 1.2.840.114 [id number] Univers 00:00:00 00:00:[address] BUILDER 350.1.13.10 ity of REGIONAL 4.2.7.2.686 Anil as MATERNAL [id number] [facility] & CHILD [address] [place] [address] 2022-11-07 2022-11-[address] [facility] 1.2.840.114 [id number] Univers 00:00:00 00:00:[address] BUIL[address] 350.1.13.10 ity of REGIONAL 4.2.7.2.686 Anil as MATERNAL [id number] [facility] & CHILD [address] [place] [address] 2022-10-31 2022-10-31 Outpatient P ALESHA [facility] [id number] Univers 14:00:00 15:26:34 LISA it y of S, YOU [facility] 2022-10-31 2022-10-31 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 Ultrasound, [facility] 1.2 .840.114 [id number] Univers 14:00:00 15:26:34 Visit Alesha Avelino Snider ROAD BUILDER 350.1. 13.10 ity of REGIONAL 4.2.7.2.686 Anil as MATERNAL [id number] [facility] & CHILD [address] [place] [address] 2022-10-26 2022-10-26 Outpatient R R [facility] [id number] Univers 15:45:00 16:10:05 SHANTHI ity o f [facility] 2022-10-26 2022-10-[address] [facility] 1.2.817.513 [id number] Univers 15:45:00 16:10:[address] BUILDER 350.1.13.10 ity of Visit REGIONAL 4.2.7.2.686 Anli as MATERNAL [id number] [facility] & CHILD [address] [place] [address] 2022-10-20 2022-10-[address] [facility] 1.2.840.114 [id number] Univers 00:00:00 00:00:[address] BUILDER 350.1.13.10 ity of REGIONAL 4.2.7.2.686 Anil as MATERNAL [id number] [facility] & CHILD [address] [place] [address] 2022-10-19 2022-10-[address] [facility] 1.2.759.462 [id number] Univers 00:00:00 00:00:[address] BUILDER 350.1.13.10 ity of REGIONAL 4.2.7.2.686 Anil as MATERNAL [id number] [facility] & CHILD [address] [place] [address] 2022-10-18 2022-10-[address] [facility] 1.2.119.016 [id number] Univers 00:00:00 00:00:[address] BUILDER 350.1.13.10 ity of [employer] 4.2.7.2.686 Anil as MATERNAL [id number] [facility] & CHILD [address] [place] [address] 2022-10-16 2022-10-16 Outpatient Jeri ENRIQUE [facility] [id number] Univers 15:15:00 15:15:00 SANIYA [facility] 2022-10-06 2022-10-[address] [facility] 1.2.840.114 [id number] Univers 00:00:00 00:00:[address] BUIL[address] 350.1.13.10 ity of [employer] 4.2.7.2.686 Anil as MATERNAL [id number] [address] 2022-09-29 2022-09-29 Outpatient P RUSTAM GOETZ [facility] [id number] Univers 15:30:00 16:58:04 RUSTAM GOETZ [facility] 2022-09-29 2022-09-29 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 1, [facility] Us Room UNIVERSIT 1 .2.840.114 [id number] Univers 15:30:00 16:58:04 Visit Rustam Goetz [facility] 350.1.13.10 ity of [facility] 4.2.7.2.[id number] [address] 2022-09-22 2022-09-22 Outpatient P RUSTAM GOETZ [facility] [id number] Univers 15:15:00 15:15:00 RUSTAM GOETZ [facility] 2022-09-18 2022-09-18 Outpatient R LIZETTE [facility] [id number] Univers 15:00:00 16:06:28 SHANTHI ity o f [facility] 2022-09-18 2022-09-18 Routine Saniya Enrique [facility] 1.2.84 0.114 [id number] Univers 15:00:00 16:06:[address] Sh[address]hi C [address] BUILDER 350.1.13 .10 ity of Visit REGIONAL 4.2.7.2.686 Anil as MATERNAL [id number] [facility] ical & CHILD [address] [place] [address] 2022-08-21 2022-08-21 [facility] [id number] Univers 14:45:00 15:43:20 SHANTHI felizy o [facility] 2022-08-21 2022-08-21 [facility] 1.2.855.179 [id number] Univers 14:45:00 15:43:[address] BUIL[address] 350.1.13.10 ity of Visit REGIONAL 4.2.7.2.686 Anil as MATERNAL [id number] [facility] & [address] 2022-08-21 2022-08-21 Outpatient R LIZETTE [facility] [id number] Univers 10:30:00 10:30:00 SHANTHI felizy o f [facility] 2022-08-15 2022-08-15 Abstract [facility] 1.2.840.114 [id number] Univers 00:00:00 00:00:[address] 350.1.13.10 ity of REGIONAL 4.2.7.2.686 Anil as MATERNAL [id number] [facility] & CHILD [address] [place] [address] 2022-08-14 2022-08-14 Outpatient P BHARATH [facility] [id number] Univers 08:30:00 09:12:30 [facility]22-[facility]14 2022-08-14 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 Ultrasound, Chloelalo [facility] 1.2 .840.114 [id number] Univers 08:30:00 09:00:[address] BUILDER 350.1.13.10 ity of REGIONAL 4.2.7.2.686 Anil as MATERNAL [id number] [facility] ical & CHILD [address] [place] [facility] 2022-08-09 2022-08-09 [facility] 1.2.628.302 [id number] Univers 00:00:00 00:00:00 Secure Msg Shanthi C RO[address] BUILDER 350.1.13.10 ity of REGIONAL 4.2.7.2.686 Anil as MATERNAL [id number] [facility] ical & CHILD [address] [place] [address] 2022-08-07 2022-08-07 Patient [facility], [facility] 1.2.965.455 [id number] Univers 00:00:00 00:00:[address] BUILDER 350.1.13.10 ity of REGIONAL 4.2.7.2.686 Anil as MATERNAL [id number] [facility] ical & CHILD [address] [place] [address] 2022-08-07 2022-08-07 Patient [place], [facility] [id number] [employer] 00:00:00 00:00:[address] BUILDER 350.1.13.10 ity of REGIONAL [id number] Anil as MATERNAL [id number] [facility] ical & CHILD [address] [place] [address] 2022-08-03 2022-08-[address] [facility] [id number] [employer] 00:00:00 00:00:[address] BU[address] 350.1.13.10 ity of REGIONAL [id number] Anil as MATERNAL [id number] [facility] [facility] ical & CHILD [address] [place] [address] 2022-07-31 2022-07-31 Outpatient R DENITA [facility] [id number] Univers 09:30:00 13:38:09 TERRENCE ity [facility] 2022-07-31 2022-07-31 Telemedici Faculty, [facility] 1.2.840.114 [id number] Univers 09:30:00 10:00:00 ne Visit Terrence Barron ROAD BUILDER 350.1.13. 10 ity of REGIONAL 4.2.7.2.686 Anil as MATERNAL [id number] Med ical & CHILD [address] [place] [address] 2022-07-28 2022-07-[address] [facility] 1.2.840.114 [id number] Univers 00:00:00 00:00:[address] BUILDER 350.1.13.10 ity of REGIONAL 4.2.7.2.686 Anil as MATERNAL [id number] [facility] & CHILD [address] [place] [address] 2022-07-27 2022-07-27 Outpatient R JO ANN [facility] [id number] Univers 10:15:00 10:15:00 ADILSON [facility] 2022-07-25 2022-07-25 Outpatient R AMENA BETANCOURT [facility] [id number] Univers 15:30:00 15:30:00 AMENA BETANCOURT [facility] 2022-07-25 2022-07-[address] [facility] 1.2.840.114 10 [id number] Univers 00:00:00 00:00:[address] BU[address]DER 350.1.13.10 ity of REGIONAL 4.2.7.2.686 Anil as MATERNAL [id number] [facility] & CHILD [address] [place] [address] 2022-07-24 2022-07-[address] [facility] 1.2.806.010 [id number] Univers 14:00:00 14:45:[address] BUILDER 350.1.13.10 ity of Visit REGIONAL 4.2.7.2.686 Anil as MATERNAL [id number] [facility] & CHILD [address] [place] [address] 2022-07-24 2022-07-24 [facility] [id number] Univers 13:30:00 12:53:06 SHANTHI ity o f [facility] 2022-07-24 2022-07-24 Orders Doctor PHILIP 1.2.840.114 [id number] Univers 00:00:00 00:00:00 Only Unassigned, JOYCE 350.1.13.10 ity of [place] [facility] 4.2.7.2.686 Anil as [id number] [facility] [address] 2022-07-14 2022-07-14 Outpatient R AMENA BETANCOURT [facility] [id number] Univers 16:30:00 16:30:00 AMENA BETANCOURT [facility] 2022-07-14 2022-07-14 Telephone Asia [facility] SANCHEZ 1.2.840.11 4 [id number] Univers 00:00:00 00:00:00 Amena SALDANA 350.1.13.10 it y [place] [id number] [facility] [address] [place] 2022-07-12 2022-07-12 Patient Mariaelenacecelia [facility] 1.2.840.114 [id number] Univers 00:00:00 00:00:00 Secure Msg Amena SALDANA 350.1.13.10 ity of [place] [id number] [address] 2022-07-10 2022-07-10 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 An, [facility] Main [facility] 1.2.8 40.114 [id number] Univers 09:30:00 09:45:00 Visit Amena Betancourt 350.1.13. 10 ity of [place] PROF[place] [id number] Pa dical [address] 2022-07-10 2022-07-10 Outpatient R AMENA BETANCOURT [facility] [id number] Univers 09:30:00 09:30:00 AMENA BETANCOURT [facility] 2022-07-10 2022-07-10 Orders Doctor PALACIOS 1.2.840.114 [id number] Univers 00:00:00 00:00:00 Only Unassigned, JOYCE 350.1.13.10 ity of [place] [facility] 4.2.7.2.686 Anil as [id number] [address] 2022-07-05 2022-07-05 Outpatient R AMENA BETANCOURT [facility] [id number] Univers 15:45:00 15:45:00 AMENA BETANCOURT ity of [facility] 2022-06-19 2022-06-19 Patient Doctor [facility] 1.2.706.193 [id number] Univers 00:00:00 00:00:00 Secure Msg Unassigned, LES 350.1.13.10 ity of [place] [id number] [address] 2022-06-06 2022-06-06 Telephone Asia [facility] 1.2.840.11 4 [id number] Univers 00:00:00 00:00:00 Amena SALDANA 350.1.13.10 it y of [place] 4[place] [id number] [address] 2022-06-06 2022-06-06 Patient CarlosKOLBY do 1.2.840.114 [id number] Univers 00:00:00 00:00:00 Secure Msg Amena SALDANA 350.1.13.10 ity [place] 4[place] [id number] [address] 2022-05-18 2022-05-18 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 Harmony Nolan Lab Main [facility] 1.2.8 40.114 [id number] Univers 16:00:00 16:15:00 Visit Amena Betancourt 350.1.13. 10 it[facility] [place] [id number] Pa dical [address] 2022-05-18 2022-05-18 Outpatient R AMENA BETANCOURT [facility] [id number] Univers 16:00:00 16:00:00 MARIAELENAAMENA ABERNATHY [facility] 2022-04-25 2022-04-25 Telephone Asia [facility] 1.2.840.11 4 [id number] Univers 00:00:00 00:00:00 Amena SALDANA 350.1.13.10 it y of WOMEN'S 4.2.7.2.686 [facility] HEALTH [id number] [address] 2022-04-19 2022-04-19 Outpatient R MARIAELENAAMENA ABERNATHY [facility] [id number] Univers 11:30: 11:30:00 CARLOSAMENA DO [facility] 2022-04-11 2022-04-11 Office [facility] 1.2.840.114 [id number] Univers 16:30:00 16:30:00 Visit Amena SALDANA 350.1.13.10 it y of WOMEN'S 4.2.7.2.686 [facility] [id number] [address] 2022-04-11 2022-04-11 Outpatient R MARIAELENAAMENA ABERNATHY [facility] [id number] Univers 16:30:00 16:26:25 MARIAELENAAMENA ABERNATHY [facility] 2022-04-11 2022-04-11 Telephone [facility] 1.2.840.114 [id number] Univers 00:00:00 00:00:00 Rosibel Rubén LES 350.1.13.10 i ty of WOMEN'S 4.2.7.2.686 [facility] [id number] [address] 2022-04-07 2022-04-07 Outpatient R MARIAELENAAMENA ABERNATHY [facility] [id number] Univers 14:30:00 14:30:00 SAVANAAMENA WALLER [facility] 2022-04-04 2022-04-04 Telephone [facility] 1.2.840.11 4 [id number] Univers 00:00:00 00:00:00 Amena SALDANA 350.1.13.10 it y [place] [id number] [address] 2022-03-29 2022-03-29 Outpatient R AMENA BETANCOURT [facility] [id number] Univers 15:45:00 15:45:00 AMENA BETANCOURT [facility] 2022-03-28 2022-03-28 Outpatient R ADUM, [facility] [id number] Univers 15:00:00 16:28:45 [facility]22-[facility]-28 2022-03-28 [facility] 1.2.434.871 [id number] Univers 15:00:00 16:28:45 Rosibel SALDANA 350.1.13.10 ity of Visit [place] [id number] [address] 2022-03-28 2022-03-28 Orders Doctor PHILIP 1.2.840.114 [id number] Univers 00:00:00 00:00:00 Only Unassigned, JOYCE 350.1.13.10 ity of [place] [facility] 4.2.7.2.686 Anil as [id number] [address] 2022-03-27 2022-03-27 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 Lab, Scott - Tereso [facility] 1.2.840.1 14 [id number] Univers 11:30:00 11:45:00 Visit Amena Betancourt 350.1.13.1 0 ity of [place] 4.2.7.2.686 Anil as REENA?BLEA [id number] [address] MEDICAL OFFICE BUILDING 2022-03-27 2022-03-27 Routine [facility] 1.2.840.114 [id number] Univers 11:15:00 11:15:00 Amena SALDANA 350.1.13.10 i ty of [place] 4[place] [id number] [address] 2022-03-27 2022-03-27 Outpatient R AMENA BETANCOURT [facility] [id number] Univers 11:15:00 10:54:35 AMENA BETANCOURT ity [facility] 2022-03-27 2022-03-27 Orders Doctor PHILIP 1.2.840.114 [id number] Univers 00:00:00 00:00:00 Only Unassigned, JOYCE 350.1.13.10 ity of [place] [facility] 4.2.7.2.686 [facility] [place] [facility] [id number] [facility] [address] 2022-03-27 2022-03-27 [facility]phone [facility] 1.2.840.11 4 [id number] Univers 00:00:00 00:00:00 Amena SALDANA 350.1.13.10 it y of WOMEN'S 4.2.7.2.686 [facility] [id number] [facility] [address] [place] 2022-03-24 2022-03-24 Outpatient R MARIAELENAHOLLAND [facility] [id number] Univers 13:30:16 23:59:00 CARLOSAMENA DO [facility] 2022-03-24 2022-03-24 [facility] 1.2.840.114 [id number] Univers 13:30:16 23:59:00 Encounter Amena BRADLEY 350.1.13.10 ity of [place] 4.2.7.2.686 [facility] [id number] [facility] [address] [place] 2022-03-24 2022-03-24 Telephone [facility] 1.2.840.11 4 [id number] Univers 00:00:00 00:00:00 Amena SALDANA 350.1.13.10 it y of WOMEN'S 4.2.7.2.[address] [facility] s HEALTH [id number] [facility] [address] [place] 2022-03-23 2022-03-23 Emergency X Susan MACKAY [facility] ERT [id number] Univers 13:31:00 19:01:00 ity of [facility] 2022-03-23 2022-03-23 Emergency Susan Mackay [facility] 1.2.840.114 [id number] Univers 13:31:00 19:01:00 Jeanine BRADLEY 350.1.13.10 i ty of [place] 4.2.7.2.686 [facility] [id number] [facility] [address] 2022-03-23 2022-03-23 Nurse Nurse, [facility] 1.2.840.114 [id number] Univers 13:00:00 13:20:00 Visit Unknown, Attending HEALTH 350.1.13.10 ity of [facility] 4.2.7.2.686 Anil as REENA?BLEA [id number] Pa lili [address] MEDICAL OFFICE BUILDING 2022-03-23 2022-03-23 Outpatient R CARLOS [facility] [id number] Univers 13:00:00 12:57:56 SAGAR [facility] 2022-03-23 2022-03-23 Orders Doctor PHILIP 1.2.840.114 [id number] Univers 00:00:00 00:00:00 Only Unassigned, JOYCE 350.1.13.10 ity of [place] [facility] 4.2.7.2.686 Anil as [id number] [facility] [address] 2022-03-15 2022-03-15 [facility] [id number] Univers 16:00:00 16:00:00 ROSIBEL [facility] 2022-03-15 2022-03-15 Outpatient R AMENA BETANCOURT [facility] B [id number] Univers 13:45:00 14:37:26 AMENA BETANCOURT [facility] 2022-03-15 2022-03-15 Routine [facility] 1.2.840.114 [id number] Univers 13:45:00 14:37:26 Amena SALDANA 350.1.13.10 i ty of Visit WOMEN'S 4.2.7.2.686 [facility] [id number] [facility] [address] 2022-03-15 2022-03-15 Outpatient R AD, [facility] [id number] Univers 10:15:00 10:15:00 ROSIBEL canas [facility] 2022 2022 Telephone [facility] 1.2.840.11 4 [id number] Univers 00:00:00 00:00:00 Amena SALDANA 350.1.13.10 it [place] [id number] [address] 2022-03-09 2022-03-09 Telephone [facility] 1.2.840.11 4 [id number] Univers 00:00:00 00:00:00 Amena SALDANA 350.1.13.10 it y [place] [id number] [address] 2022-03-07 2022-03-07 [facility] 1.2.840.11 4 [id number] Univers 00:00:00 00:00:00 Amena SALDANA 350.1.13.10 it y of [place] [id number] [address] 2022-03-07 2022-03-07 [facility] 1.2.840.11 4 [id number] Univers 00:00:00 00:00:00 Amena SALDANA 350.1.13.10 it y [place] [id number] [address] 2022-03-06 2022-03-06 Outpatient R AMENA BETANCOURT [facility] [id number] Univers 00:00:00 00:00:00 AMENA BETANCOURT [facility] 2022-03-06 2022-03-06 [facility] 1.2.840.11 4 [id number] Univers 00:00:00 00:00:00 Amena SALDANA 350.1.13.10 it y of [place] 4[place] [id number] [address] 2022-03-05 2022-03-05 Case [facility] 1.2.840.114 [id number] Univers 00:00:00 00:00:00 Management Amena SALDANA 350.1.13.10 ity [place] 4[place] [id number] [address] 2022-03-03 2022-03-03 Outpatient R AMENA BETANCOURT [facility] [id number] Univers 14:10:30 23:59:00 MARIAELENAAMENA ABERNATHY [facility] 2022-03-03 2022-03-03 [facility] 1.2.840.114 [id number] Univers 14:00:00 23:59:00 Encounter Amean BRADLEY 350.1.13.10 ity of [place] 4.2.7.2.686 [place] [id number] [facility] [address] [place] 2022-02-23 2022-02-23 Case [facility] 1.2.840.114 [id number] Univers 00:00:00 00:00:00 Management Amena SALDANA 350.1.13.10 ity [place] [id number] [address] 2022-02-22 2022-02-22 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 Harmony Nolan [facility] Main [facility] 1.2.8 40.114 [id number] Univers 16:45:00 17:00:00 Visit Amena Betancourt 350.1.13. 10 ity of [place] 4.2.7.2.686 [facility] [id number] Pa dical [address] 2022-02-22 2022-02-22 Outpatient R MARIAELENAAMENA ABERNATHY [facility] [id number] Univers 15:30:00 16:14:30 MARIAELENAAMENA ABERNATHY [facility] 2022-02-22 2022-02-22 Initial [facility] 1.2.840.114 [id number] Univers 15:30:00 16:14:30 Amena SLADANA 350.1.13.10 i ty of Visit [place] 4[place].2.[place] [id number] [address] 2022-02-20 2022-02-20 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 An, Adc Lab Main [facility] 1.2.8 40.114 [id number] Univers 13:15:00 13:30:00 Visit Amena Betancourt 350.1.13. 10 ity of [place] 4[place].2.[place] [id number] Pa dical NAL 353 [facility] 2022-02-20 2022-02-20 Outpatient R MARIAELENAAMENA ABERNATHY [facility] [id number] [facility] 13:15:00 13:15:00 TRIDEBORAHAMENA DO ity of [facility] 2022-02-20 2022-02-20 Patient Asia [facility] SANCHEZ 1.2.840.114 [id number] Univers 00:00:00 00:00:00 Secure Msg Amena SALDANA 350.1.13.10 ity [place] 4[place] [id number] [address] 2022-02-20 2022-02-20 Telephone Asia [facility] 1.2.840.11 4 [id number] Univers 00:00:00 00:00:00 Amena SALDANA 350.1.13.10 it y [place] 4[place]2.[place] [id number] [address] 2022-02-20 2022-02-20 Patient Iris [facility] 1.2.385.696 [id number] Univers 00:00:00 00:00:00 Secure Msg Deanne SALDANA 350.1.13.10 it[place] [id number] [address] 2022-02-18 2022-02-18 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 An, Adc Lab Main [facility] 1.2.8 40.114 [id number] Univers 10:00:00 10:15:00 Visit Amena Betancourt 350.1.13. 10 ity of [place] 4.2.7.2.686 [place] [id number] Pa dical NAL [address] [place] [address] 2022-02-18 2022-02-18 Outpatient R CARLOSAMENA DO [facility] [id number] Univers 10:00:00 10:00:00 ASIAAMENA [facility] 2022-02-18 2022-02-18 Orders Doctor PHILIP 1.2.840.114 [id number] Univers 00:00:00 00:00:00 Only Unassigned, JOYCE 350.1.13.10 ity of [place] [facility] 4.2.7.2.686 Anil as [id number] [address] 2022-02-17 2022-02-17 Patient Iris [facility] 1.2.884.567 [id number] Univers 00:00:00 00:00:00 Secure Msg Deanne [place] LES 350.1.13.10 ity of [place] 4.[place].7.2.[place] [facility] [id number] [address] 2022-02-17 2022-02-17 Telephone Carlosnik MNVERONICA [facility] 1.2.840.11 4 [id number] Univers 00:00:00 00:00:00 Amena SALDANA 350.1.13.10 it y [place] 4[place] [id number] [address] 2022-02-08 2022-02-08 Outpatient R CARLOSAMENA DO [facility] [id number] Univers 00:00:00 00:00:00 ASIAAMENA [facility] 2022-01-24 2022-01-24 Outpatient R CARLOSAMENA DO [facility] [id number] Univers 15:30:00 16:07:03 ASIAAMENA trayjoyce [facility] 2022-01-24 2022-01-24 Office Savanaorlando [facility] 1.2.840.114 [id number] Univers 15:30:00 16:07:03 Visit Amena SALDANA 350.1.13.10 it y [place] [id number] [address] 2022-01-20 2022-01-20 Outpatient R AMENA BETANCOURT [facility] [id number] Univers 15:15:00 15:15:00 AMENA BETANCOURT itjoyce [facility] 2022-01-06 2022-01-06 Outpatient R AMENA BETANCOURT [facility] [id number] Univers 16:00:00 16:00:00 AMENA BETANCOURT [facility] 2022-01-06 2022-01-06 Outpatient R JARETH OLMEDO [facility] [id number] Univers 14:15:00 14:27:31 ity [facility] 2022-01-06 2022-01-06 Office Jareth Olmedo [facility] 1.2.840.114 [id number] Univers 14:15:00 14:27:31 Visit [place] 350.1.13.10 i ty of [place].2.[place] [id number] Pa dical NAL 134 [facility] 2022-01-03 2022-01-03 Telephone Jareth Olmedo [facility] 1.2.840.11 4 [id number] Univers 00:00:00 00:00:00 LES 350.1.13.10 it y of [place] 4[place] [id number] [address] 2021-12-30 2021-12-30 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 2, Adc Lab [facility] 1.2.840.114 [id number] Univers 11:00:00 11:13:02 Visit Jareth Olmedo 350.1.13.10 ity of [place].2.[place] [id number] Pa dical NAL [address] [place] [address] 2021-12-30 2021-12-30 Outpatient R JARETH OLMEDO [facility] [id number] Univers 09:30:00 10:59:31 ity [facility] 2021-12-30 2021-12-30 Office Jareth Olmedo [facility] 1.2.840.114 [id number] Univers 09:30:00 10:59:31 Visit MIRNA 350.1.13.10 i ty of [place] 4[place].7.2.[place] [id number] Pa dical [facility] 134 [facility] 2021-12-30 2021-12-30 Outpatient R ROSALEE OLMEDON [facility] [id number] Univers 09:30:00 10:59:31 ity of [facility] 2021-12-30 2021-12-30 Orders Doctor PHILIP 1.2.840.114 [id number] Univers 00:00:00 00:00:00 Only Unassigned, JOYCE 350.1.13.10 ity of [place] [facility] 4.2.7.2.686 Anil as [id number] [address] 2021-12-28 2021-12-28 Telephone [facility] 1.2.840.11 4 [id number] Univers 00:00:00 00:00:00 Amena SALDANA 350.1.13.10 it y of PEDIATRIC 4.2.7.2.686 [facility] [id number] [address] 2021-11-23 2021-11-23 Outpatient R AMENA BETANCOURT [facility] [id number] Univers 09:30:00 10:56:47 AMENA BETANCOURT [facility] [place] 2021-11-23 2021-11-23 Office [facility] 1.2.840.114 [id number] Univers 09:30:00 10:56:47 Visit Amena SALDANA 350.1.13.10 it y [place] [id number] [address] 2021-11-09 2021-11-09 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 Lab, Ang - Db [facility] 1.2.840.1 14 [id number] Univers 16:30:00 16:45:00 Visit Quinten Kline HEALTH 350.1.13.10 ity of Amena Betancourt [place] 4.2.7.2.686 [place] REENA?BLEA [id number] Pa dical [address] MEDICAL OFFICE BUILDING 2021-11-09 2021-11-09 Office [facility] 1.2.840.114 [id number] Univers 15:00:00 15:40:11 Visit Amena SALDANA 350.1.13.10 it y of [place] 4.2.7.2.686 [facility] [id number] [address] 2021-11-09 2021-11-09 Outpatient R AMENA BETANCOURT [facility] [id number] Univers 15:00:00 15:40:11 TRIANNETTEAMENA WALLER joyce [facility] 2021-11-09 2021-11-09 Outpatient R AMENA BETANCOURT [facility] [id number] Univers 15:00:00 15:40:11 MARIAELENAAMENA ABERNATHY joyce [facility] 2021-11-09 2021-11-09 Outpatient R AMENA BETANCOURT [facility] [id number] Univers 15:00:00 15:00:00 [facility]ENTER[facility]DR[facility] [place] 2021-10-27 2021-10-27 Outpatient R JARETH OLMEDO [facility] [id number] Univers 15:00:00 15:45:46 ity [facility] 2021-10-27 2021-10-27 Office Jareth Olmedo [facility] 1.2.840.114 [id number] Univers 15:00:00 15:45:46 Visit LES 350.1.13.10 it y of [place] [id number] [address] 2021-10-27 2021-10-27 Orders Doctor PHILIP 1.2.840.114 [id number] Univers 00:00:00 00:00:00 Only Unassigned, JOYCE 350.1.13.10 ity of [place] [facility] 4.2.7.2.686 Anil as [id number] [address] 2021-10-18 2021-10-18 Emergency X KOLBY DANIELS ERT [id number] Univers 12:38:00 17:05:00 KAMERON [facility] [place] 2021-10-18 2021-10-18 Emergency Frances [facility]ON[facility] 1.2.632.154 [id number] [facility] 12:38:00 17:05:00 Kameron BRADLEY [id number] i [facility] [place] [id number] [facility] [phone] [facility] [address] [place] 2021-10-18 2021-10-18 Emergency X FRANCES, [facility] ERT [id number] Univers 12:38:00 17:05:00 KAMERON [facility] 2021-02-20 2021-02-20 Emergency EM Crismon, [facility] ESTRELLITA [id number] [facility] 07:08:00 10:32:00 [place] [address] [facility] Results Test Description Test Time Test Comments Results Result Comments Source POCT URINALYSIS W SPECIFIC GRAVITY 2023-02-05 20:59:00 Test Item Value Reference Range Interpretation Comme [...] U APPEAR (test code = 3267) . [facility] [id number] 18:27:00 Test Item Value Reference Range Interpretation Comments [...] U APPEAR (test code = 3267) . [facility] URINALYSIS W SPECIFIC [id number] 18:27:00 Test Item Value Reference Range Interpretation Comments [...] U APPEAR (test code = 3267) . [facility] URINALYSIS W SPECIFIC [id number] 18:27:00 Test Item Value Reference Range Interpretation Comments [...] U APPEAR (test code = 3267) . [facility] URINALYSIS W SPECIFIC [id number] 18:27:00 Test Item Value Reference Range Interpretation Comments [...] U APPEAR (test code = 3267) . [facility] URINALYSIS W SPECIFIC [id number] 14:41:00 Test Item Value Reference Range Interpretation Comments POCT U SP GRAV (test code = . 1.005-1.025 3255) POCT PH U (test code = 3254) 6 mg/dl 5-8 POCT U LEUK EST (test code = negative Negative - Negative 3263) POCT U NIT (test code = 3262) negative Negative - Negative POCT U PROT (test code = 3259) trace Negative - Negative POCT U GLU (test code = 3256) negative Negative - Negative POCT U KETONE (test code = 3258) negative Negative - Negative POCT U UROBILI (test code = . 0.2-1 3260) POCT U BILI (test code = 3261) . Negative - Negative POCT U BLD (test code = 3257) negative Negative - Negative POCT U COLOR (test code = 3266) . POCT U APPEAR (test code = 3267) . [facility] ONLY - SYPHILIS [id number] 15:06:38 Test Item Value Reference Range Interpretation Comments Syphilis IgG/IgM (test Non-reactive Non-reactive code = 55701-1) SAMY (test code = SAMY) Non-reactive - No serologic evidence of T. pallidum infection. Cannot exclude incubating or early syphilis. Submit a second specimen in 2-4 weeks if syphilis is clinically suspected. Equivocal - Further testing to follow. Reactive - Further testing to follow. Lab Interpretation (test Normal code = 47045-7) [facility] [id number] 19:09:00 Test Item Value Reference Range Interpretation Comments ABO & RH (test code = 20) O NEGATIVE IAT (test code = 1185) Negative [facility] URINALYSIS W SPECIFIC [id number] 14:23:00 Test Item Value Reference Range Interpretation [...] U APPEAR (test code = 3267) . [facility] URINALYSIS W SPECIFIC [id number] 19:12:00 Test Item Value Reference Range Interpretation [...] U APPEAR (test code = 3267) . [facility] URINALYSIS W SPECIFIC [id number] 15:07:00 Test Item Value Reference Range Interpretation [...] U APPEAR (test code = 3267) . [facility] URINALYSIS W SPECIFIC [id number] 15:07:00 Test Item Value Reference Range Interpretation [...] U APPEAR (test code = 3267) . [facility] URINALYSIS W SPECIFIC [id number] 14:51:00 Test Item Value Reference Range Interpretation [...] U APPEAR (test code = 3267) . [facility] URINALYSIS W SPECIFIC [id number] 14:51:00 Test Item Value Reference Range Interpretation [...] U APPEAR (test code = 3267) . [facility] URINALYSIS W SPECIFIC [id number] 14:51:00 Test Item Value Reference Range Interpretation [...] U APPEAR (test code = 3267) . [facility] URINALYSIS W SPECIFIC [id number] 20:52:00 Test Item Value Reference Range Interpretation [...] U APPEAR (test code = 3267) . [facility] URINALYSIS W SPECIFIC [id number] 20:36:00 Test Item Value Reference Range Interpretation [...] POCT U APPEAR (test code = 3267) [facility] URINALYSIS W SPECIFIC [id number] 20:22:00 Test Item Value Reference Range Interpretation [...] U APPEAR (test code = 3267) . [facility] URINALYSIS W/O SPECIFIC [id number] 18:12:00 Test Item Value Reference Range Interpretation [...] code = 3257) NEG Negative - Negative [facility] [id number] 18:11:00 Test Item Value Reference Range Interpretation Comments POCT PREG (test code = 1605) Positive On board controls acceptable with C Yes Line (test code = 3574) POCT PREG LOT # (test code = 3575) POCT PREG TEST DATE (test code = 3576) [facility] [id number] 21:14:40 Test Item Value Reference Interpretation Comments Range TROPONIN I (test 0.002 ng/mL See_Comment [Automated code = 9933236563) message] The system which generated this result [...] biotin. Lab Interpretation Normal (test code = 65005-8) [facility] [id number] 21:08:59 Test Item Value Reference Range Interpretation Comments NT-proBNP (test code 53 pg/mL See_Comment [Autom ated = 9691993773) message] The system which generated this result transmitted reference range : <=125. The reference range was not used to interpret this result as normal/abnormal . SAMY (test code = SAMY) Biotin has been reported to cause a negative bias, interpret results relative to patient's use of biotin. Lab Interpretation Normal (test code = 33243-5) [facility] [id number] 21:00:36 Test Item Value Reference Range Interpretation Comments MAGNESIUM (test code = 7108192663) 1.9 mg/dL 1.7-2.4 Lab Interpretation (test code = Normal 00549-0) [facility] SystemCOMP. METABOLIC PANEL (46923)2022-03-23 21:00:16 Test Item Value Reference Range Interpretation Comments NA (test code = 136 mmol/L 135-145 8055473355) K (test code = 4.4 mmol/L 3.5-5.0 0434299637) CL (test code = 104 mmol/L 98-108 7638553732) CO2 TOTAL (test code 24 mmol/L 23-31 = 8036211411) AGAP (test code = 2-16 2255283310) BUN (test code = 13 mg/dL 7-23 3532036189) GLUCOSE (test code = 92 mg/dL 70-110 1682293268) CREATININE (test code 0.53 mg/dL 0.50-1.04 = 4177929206) TOTAL BILI (test code 0.4 mg/dL 0.1-1.1 = 4004839033) CALCIUM (test code = 9.1 mg/dL 8.6-10.6 2143773722) T PROTEIN (test code 7.2 g/dL 6.3-8.2 = 0175118767) ALBUMIN (test code = 4.6 g/dL 3.5-5.0 8424978027) ALK PHOS (test code = 50 U/L 34-122 1311924275) ALTv (test code = 23 U/L 5-35 1742-6) AST(SGOT) (test code 32 U/L 13-40 = 6489350410) eGFR (test code = mL/min/1.73m2 6357357790) SAMY (test code = SAMY) Association of [...] or urine or abnormalities in imaging tests). [facility] WITH [id number] 20:35:10 Test Item Value Reference Range Interpretation [...] RDW-SD (test code = 40.3 fL 39.0-49.9 37151-4) RDW-CV (test code = 12.1 % 12.0-15.5 788-0) PLT (test code = See_Comment [Automated 777-3) message] The sy stem which generated this result transmitted reference range : 166 - 358 10*3/ ?L. The reference r kristen was not used to interpret this result as normal/abnormal . MPV (test code = 9.3 fL 9.5-12.9 L 05297-2) NRBC/100 WBC (test See_Comment [Automat ed code = 0689162730) message] The system which generated this result transmitted reference range : 0.0 - 10.0 /100 WBCs. The refer ence range was not u sed to interpret th is result as normal/abnormal . NRBC x10^3 (test code See_Comment [Auto mated = 5338559352) message] The s ystem which generated this result transmitted reference range : 10*3/?L. The reference range was not used to interpret this result as normal/abnormal . GRAN MAT (NEUT) % 73.4 % (test code = 770-8) IMM GRAN % (test code 0.50 % = 3328297374) LYMPH % (test code = 15.5 % 736-9) MONO % (test code = 8.2 % 5905-5) EOS % (test code = 2.1 % 713-8) BASO % (test code = 0.3 % 706-2) GRAN MAT x10^3(ANC) 7.55 10*3/uL 1.88-7.09 H (test code = 5185347011) IMM GRAN x10^3 (test 0.05 10*3/uL 0.00-0.06 code = 9158779382) LYMPH x10^3 (test code 1.60 10*3/uL 1.32-3.29 = 731-0) MONO x10^3 (test code 0.84 10*3/uL 0.33-0.92 = 742-7) EOS x10^3 (test code = 0.22 10*3/uL 0.03-0.39 711-2) BASO x10^3 (test code 0.03 10*3/uL 0.01-0.07 = 704-7) Lab Interpretation Abnormal (test code = 18077-3) [facility] URINALYSIS W/O SPECIFIC [id number] 20:09:00 Test Item Value Reference Range Interpretation [...] code = 3257) n/a Negative - Negative [facility] URINALYSIS W/O SPECIFIC [id number] 16:00:00 Test Item Value Reference Range Interpretation [...] code = 3257) N/A Negative - Negative [facility] URINALYSIS W/O SPECIFIC [id number] 16:00:00 Test Item Value Reference Range Interpretation [...] code = 3257) N/A Negative - Negative [facility] URINALYSIS W/O SPECIFIC [id number] 16:00:00 Test Item Value Reference Range Interpretation [...] code = 3257) N/A Negative - Negative [facility] [id number] 16:00:00 Test Item Value Reference Range Interpretation [...] code = 3257) N/A Negative - Negative [facility] [id number] 16:00:00 Test Item Value Reference Range Interpretation [...] code = 3257) N/A Negative - Negative [facility] [id number] 16:00:00 Test Item Value Reference Range Interpretation [...] code = 3257) N/A Negative - Negative [facility] [id number] 18:43:00 Test Item Value Reference Range Interpretation Comments POCT PREG (test code = 1605) Negative On board controls acceptable with C Yes Line (test code = 3574) POCT PREG LOT # (test code = 3575) POCT PREG TEST DATE (test code = 3576) [facility] [id number] 18:43:00 Test Item Value Reference Range Interpretation Comments POCT PREG (test code = 1605) Negative On board controls acceptable with C Yes Line (test code = 3574) POCT PREG LOT # (test code = 3575) POCT PREG TEST DATE (test code = 3576) [facility] [id number] 18:43:00 Test Item Value Reference Range Interpretation Comments POCT PREG (test code = 1605) Negative On board controls acceptable with C Yes Line (test code = 3574) POCT PREG LOT # (test code = 3575) POCT PREG TEST DATE (test code = 3576) [facility] [id number] 15:29:00 Test Item Value Reference Range Interpretation Comments POCT PREG (test code = 1605) Negative On board controls acceptable with C Yes Line (test code = 3574) POCT PREG LOT # (test code = 3575) POCT PREG TEST DATE (test code = 3576) [facility] [id number] 15:29:00 Test Item Value Reference Range Interpretation Comments POCT PREG (test code = 1605) Negative On board controls acceptable with C Yes Line (test code = 3574) POCT PREG LOT # (test code = 3575) POCT PREG TEST DATE (test code = 3576) [facility] TRANSVAGINAL NON [id number] 09:32:00 [facility] Noéme: PETROS LIZ : 1990 Sex: F Patient Name: PETROS LIZ Unit No: [id number] EXAMS: CPT CODE: [id number] [place] [address] C3 TIME OF STUDY: 02/20/2021 REASON FOR [...] MARIE Technologist: Sophy Stevenson Trnscrbd D/ (0932) JacobSI1 Probe: 822344GN7 Orig Print D/T: S: 02/20/2021 (0935) Probe: ELISABETH Cavanaugh NAME: PETROS LIZ [address] [place] [address] Blvd PHYS: Chad Arment[place], [place] [address] : 1990 AGE: 30 SEX: F LOC: B.ERS PHONE #: [phone] EXAM DATE: 02/20/2021 STATUS: REG ER FAX #: [phone] RAD NO: Page 1 Signed ReportLACTIC [id number] 09:17:00 Test Item Value Reference Range Interpretation Comments LACTIC ACID (test 2.1 mmol/L 0.4-2.0 H ON 1 AT 0917, code = LACT) B.LAB.CLAUDIAK BERKLEY Tejada TO JASSON HUNTER. T he report was conf irmed by read back parrish cols Y,N: YES. Criti senait values after th e first occurrence are excluded. - CT ABD PELVIS W/[id number] 08:35:00 [facility] CONROEName: PETROS LIZ : 1990 Sex: F Patient Name: PETROS LIZ Unit No: [id number] EXAMS: CPT CODE: [id number] CT ABD PELVIS W/CONT 09476 EXAM: - CT ABD PELVIS W/CONT LOCATION: [...] lesion in the left ovary. ELISABETH Cavanaugh NAME:[address] PHYS: VIKTORIYA TylerIndira [place] [address] : 1990 AGE: 30 SEX: F LOC: [employer] PHONE #: [phone] EXAM DATE: 02/20/2021 STATUS: REG ER FAX #: [phone] RAD #: D/C DT PAGE 1 Signed Report (CONTINUED) Patient Name: PETROS LIZ Unit No: [id number] EXAMS: CPT CODE: [id number] CT ABD PELVIS W/CONT 03151 <Continued> No evidence of obstructive uropathy. at 0835 Reported and signed by: Adelso Adler MD CC: Indira MARIE Dictated Date/Time: 02/20/2021 (0835) Technologist: Orlando Burgos CTDI: 9.22 DLP: 492.32 Trnscrpt: 02/20/2021 (0835)JacobHV2 [facility]if Cavanaugh NAME: [address] PHYS: VIKTORIYA [place] [address] : 1990 AGE: 30 SEX: F LOC: [employer] PHONE #: [phone] EXAM DATE: 02/20/2021 STATUS: REG ER FAX #: [phone] RAD #: D/C DT PAGE 2 Signed Report Patient Name: PETROS LIZ Unit No: [id number] EXAMS: CPT CODE: [id number] CT ABD PELVIS W/CONT 56074 <Continued> Orig Print D/T: S: 02/20/2021 (0839) ELISABETH Cavanaugh NAME: PETROS LIZ [address] [place] [address] Blvd PHYS: Indira Armenta [place], [place] [address] : 1990 AGE: 30 SEX: F LOC: B.ERS PHONE #: [phone] EXAM DATE: 02/20/2021 STATUS: REG ER FAX #: [phone] RAD #: D/C DT PAGE 3 Signed Report BASIC METABOLIC [id number] 08:03:00 Test Item Value Reference Range Interpretation [...] message] (test code = Index/DL The system [employer] h HEMINDEX) generated this result transmit ayde [...] this result as normal/abnormal . HEPATIC FUNCTION [id number] 08:03:00 Test Item Value Reference Range Interpretation [...] 86 Unit/L 45-117 N code = ALKP) [id number] 08:03:00 Test Item Value Reference Range Interpretation Comments LIPASE (test code = LIP) 50 Unit/L 114-286 L CBC W/O [id number] 07:54:00 Test Item Value Reference Range Interpretation [...] N MPV) UA RFLX MICR CULT IF [id number] 07:51:00 Test Item Value Reference Range Interpretation [...] LT 2018-06-06 18:55:00 FAX: Ortega Barrera MD [phone] Premium: [facility]: [facility] FAX: Efren Smith NP [phone] ----- Patient Name: PETROS SYKES Unit No: [id number] EXAMS: CPT CODE: [id number] XR ELBOW 3 + V LT [address] EXAMINATION: - XRFOREARM 2 VIEWS LT, - [...] Tavo.[email or web address] Orig Print D/T: S: 06/06/2018 (1858) [facility] [place] NAME: MONYPETROS SAMAYOA [address] [place] [address] PHYS: TERE. - Efren Gonzalez [place], [place] [address] : 1990 AGE: 28 SEX: F LOC: STEPHANIE PHONE #: [phone] EXAM DATE: 06/06/2018 STATUS: REG ER FAX #: [phone] RAD NO: DC Dt: PAGE 1 Signed Report- XR FOREARM 2 VIEWS [id number] 18:55:00 FAX: Ortega Barrera MD [phone] Premium: St: REG FAX: Efren Smith NP [phone] ----- Patient Name: PETROS SYKES Unit No: [id number] EXAMS: CPT CODE: [id number] XR FOREARM [address] [place] [address] EXAMINATION: - XR FOREARM 2 VIEWS LT, [...] 1855 Reported and signed by: Pau Cardenas [facility]: Efren Gonzalez NP Dictated Date/Time: 06/06/2018 (1854)Technologist: Elise Stark Transcribed Date/Time: 06/06/2018 (1854) By: [email or web address] Orig Print D/T: S: 06/06/2018 (1858) ELISABETH Cavanaugh NAME: PETROS SYKES YAO [address] [place] [address] PHYS: TERE. - Efren Gonzalez [place]Pe, [place] [address]OIS: 1990 AGE: 28 SEX: F LOC: STEPHANIE PHONE #: [phone] EXAM DATE: 06/06/2018 STATUS: REG ER FAX #: [phone] RAD NO: DC Dt: PAGE 1 Signed Report- XR HAND 3 + V [id number] 18:54:00 FAX: Ortega Barrera MD [phone] Premium: E St: REG FAX: Efren Smith NP [phone] ----- Patient Name: EPTROS SYKES Unit No: [id number] EXAMS: CPT CODE: [id number] XR HAND 3 + [place] [address] EXAMINATION: - XR WRIST 3 + V [...] [email or web address] Orig Print D/T: S: 06/06/2018 (1856) [facility] [place] NAME: PETROS SYKES [address] [place] [address] PHYS: [email or web address] - Efren Gonzalez NP [place], [place] [address] :1990 AGE: 28 SEX: F LOC: STEPHANIE PHONE #: [phone] EXAM DATE: 06/06/2018 STATUS: REG ER FAX #: [phone] RAD NO: DC Dt: PAGE 1 Signed Report- XR WRIST 3 + V [id number] 18:54:00 FAX: Ortega Barrera MD [phone] Premium: St: REG FAX: Efren Smith NP [phone] ----- Patient Name: PETROS SYKES Unit No: [id number] EXAMS: CPT CODE: [id number] XR WRIST 3 + V [place] [address] EXAMINATION: - XR WRIST 3 + V [...] Elise Stark Transcribed Date/Time: 06/06/2018 (1853) By: [email or web address] Orig Print D/T: S: 06/06/2018 (1856) ELISABETH [place] NAME: PETROS SYKES [address] [place] [address] PHYS: TREE.01 - Efren Gonzalez NP [place], [place] [address] : 1990 AGE: 28 SEX: F LOC: BPrimitivoERS PHONE #: [phone] EXAM DATE: 06/06/2018 STATUS: REG ER FAX #: [phone] RAD NO: DC Dt: PAGE 1 Signed Report- XR HUMERUS 2 + V [id number] 18:51:00 FAX: Ortega Barrera MD [phone] Premium: St: [facility] FAX: Efren Smith NP [phone] ----- Patient Name: PETROS SYKES Unit No: [id number] EXAMS: CPT CODE: [id number] XR HUMERUS 2 + [place] [address] EXAMINATION: - XR HUMERUS 2 + V [...] Elise Stark Transcribed Date/Time: 06/06/2018 (1850) By: [email or web address] Orig Print D/T: S: 06/06/2018 (1854) ELISABETH Cavanaugh NAME: PETROS SYKES [address] [place] [address] PHYS: Efren Red NP [place], [place] [address] : 1990 AGE: 28 SEX: F LOC: STEPHANIE PHONE #: [phone] EXAM DATE: 06/06/2018 STATUS: REG ER FAX #: [phone] RAD NO: DC Dt: PAGE 1 Signed Report- XR SHOULDER 2 + V [id number] 18:50:00 FAX: Ortega Barrera MD [phone] Premium: St: [facility] FAX: Efren Smith NP [phone] ----- Patient Name: PETROS SYKES Unit No: [id number] EXAMS: CPT CODE: [id number] XR SHOULDER 2 + [place] LT [address] EXAMINATION: - XR SHOULDER 2 + V LT. LOCATION: B2. HISTORY: fall. COMPARISON: None. TECHNIQUE: Internal rotation, ext ernal rotation, and scapular Y views of the left shoulder were obtained. FINDINGS: No acute fractureor dislocation is identified. Soft tissue structures appear within normal limits. IMPRESSION: No acute osseous abnormality is identified. at 1850 Reported and signed by: Pau Cardenas MD CC: Efren Gonzalez NP Dictated Date/Time: 06/06/2018(1849)Technologist: Elise Stark Transcribed Date/Time: 06/06/2018 (185) By: [email or web address] Orig PrintD/T: S: 06/06/2018 (185) ELISABETH Cavanaugh NAME: PETROS SYKES YAO [address] [place] [address] PHYS: Efren Red DIRECTOR [employer] SERVICES [place], [place] [address] : 1990 AGE: 28 SEX: F LOC: STEPHANIE PHONE #: [phone] EXAM DATE: 06/06/2018 STATUS: REG ER FAX #: [phone] RAD NO: DC Dt: PAGE 1 Signed Report"
[2023-02-11 21:35] LABS: Protime INR 0.97
[2023-02-11 21:36] LABS: Absolute Lymphocytes (CBC) 1.6 K/uL (0.7-4.9); Lymphocytes % 12.1 % (15.3-44.8); MCV 88.4 fL (80-100); MPV 7.1 fL (7.6-11.3); Platelets 308 thou/uL (152-406); RBC Red Blood Cell Count 3.29 M/uL (3.86-4.86)
[2023-02-11] MEDS ORDERED: NA CHLORIDE 0.9% 1,000 ML ONE (21:37)
[2023-02-11 21:49] LABS: Albumin 2.7 g/dL (3.4-5.0); Bilirubin Total 0.3 mg/dL (0.2-1.0); Potassium 3.4 mEq/L (3.5-5.1); Protein, Total 7.3 g/dL (6.4-8.2)
--- NOTE | 2023-02-11 21:57 | RAD REPORT ---
EXAM DESCRIPTION: US - OB Limited - 02/11/2023 9:43 pm CLINICAL HISTORY: with abdominal pain COMPARISON: None FINDINGS: Limited OB ultrasound performed Single live intrauterine in cephalic presentation Placenta fundal. No subchorionic/retroplacental bleed Amniotic fluid normal. Cardiac activity varies from 106 to 126 beats per minute. The right and left adnexal unremarkable BPD 9.1 centimeters 37 weeks 0 days +/-22 days HC 31.6 centimeters 35 weeks 4 days +/-21 days AC 31.7 centimeters 35 weeks 4 days +/- 21 days Femur length 6.5 centimeters 33 weeks 2 days +/-21 days Poor evaluation of the cervix IMPRESSION: Single live intrauterine in cephalic presentation Estimated gestational age 35 weeks 2 days JAEL 03/16/2023 No retroplacental/subchorionic bleed Cardiac activity varies from 106 to 126 beats per minute.
--- NOTE | 2023-02-11 23:04 | EDPHYS ---
Physician Documentation [facility] Name: Brooke Thomas Age: 32 yrs Sex: Female : 1990 Arrival Date: 02/11/2023 Time: 20:26 Bed 1 Private MD: ED Physician Moshe Chris HPI: 02/11 23:04 This 32 yrs old Female presents to ER via Ambulatory with complaints of 37 sp4 wks , Abdominal Cramping, Vaginal Bleeding. 23:05 32-year-old female -0-0-2 at 36 weeks 6 days EGA by sonogram, who has sp4 care established at [facility] in [place], presents with 2 days of abdominal cramping and also reporting bloody discharge. Denied fluid leak and denied contractions. Patient states she wants to be make sure she is not in labor, . 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 - Social history:: Smoking status: Patient denies any tobacco usage or history of. Patient/guardian denies using alcohol, street drugs. - Family history:: not pertinent. ROS: 23:05 Constitutional: Negative for fever, chills, and weight loss, Abdomen/GI: Abdominal sp4 cramping lower abdominal cramping. Positive bloody discharge 23:05 All other systems are negative, Exam: 23:05 Constitutional: This is a well developed, well nourished patient who is awake, alert, sp4 and in no acute distress. Head/Face: Normocephalic, atraumatic. Eyes: Pupils equal round and reactive to light, extra-ocular motions intact. Lids and lashes normal. Conjunctiva and sclera are not injected. Cornea within normal limits. Periorbital areas with no swelling, redness, or edema. ENT: Nares patent. No nasal discharge, no septal abnormalities noted. Tympanic membranes are normal and external auditory canals are clear. Oropharynx with no redness, swelling, or masses, exudates, or evidence of obstruction, uvula midline. Mucous membranes moist. Neck: Trachea midline, no thyromegaly or masses palpated, and no cervical lymphadenopathy. Supple, full range of motion without nuchal rigidity, or vertebral point tenderness. Chest/axilla: Normal chest wall appearance and motion. Nontender with no deformity. No lesions are appreciated. Cardiovascular: Regular rate and rhythm with a normal S1 and S2. No gallops, murmurs, or rubs. Normal PMI, no JVD. No pulse deficits. Respiratory: Lungs have equal breath sounds bilaterally, clear to auscultation and percussion. No rales, rhonchi or wheezes noted. No increased work of breathing, no retractions or nasal flaring. Abdomen/GI: Soft, non-tender, with normal bowel sounds. No distension or tympany. No guarding or rebound. No evidence of tenderness throughout. There is a gravid uterus Back: No spinal tenderness. No costovertebral tenderness. Pelvic Exam: Normal external genitalia. Gloved finger exam reveals no cervical dilation no cervical effacement, no bleeding, no sings of amniotic fluid leak. Female : Normal external genitalia. 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 Normal color with no rashes, no lesions, and no evidence of cellulitis. MS/ Extremity: Pulses equal, no cyanosis. Neurovascular intact. Full, normal range of motion. Neuro: Awake and alert, GCS 15, oriented to person, place, time, and situation. Cranial nerves II-XII grossly intact. Motor strength 5/5 in all extremities. Sensory grossly intact. Psych: Awake, alert, with orientation to person, place and time. Behavior, mood, and affect are within normal limits Vital Signs: 20:45 BP 135 / 90; Pulse 92; Resp 17 S; Temp 98.1(O); Pulse Ox 100% on R/A; Weight 92.08 kg lg3 (R); Height 5 ft. 3 in. (R); 23:24 BP 112 / 54; Pulse 80; Resp 16; Pulse Ox 98% on R/A; km8 20:45 Body Mass Index 35.96 (92.08 kg, 160.02 cm) lg3 MDM: 20:39 Patient medically screened. sp4 23:04 ED course: US - EXAM DESCRIPTION: US - OB Limited - 02/11/2023 9:43 pm CLINICAL sp4 HISTORY: with abdominal pain COMPARISON: None FINDINGS: Limited OB ultrasound performed Single live intrauterine in cephalic presentation Placenta fundal. No subchorionic/retroplacental bleed Amniotic fluid normal. Cardiac activity varies from 106 to 126 beats per minute. The right and left adnexal unremarkable BPD 9.1 centimeters 37 weeks 0 days +/-22 days HC 31.6 centimeters 35 weeks 4 days +/-21 days AC 31.7 centimeters 35 weeks 4 days +/- 21 days Femur length 6.5 centimeters 33 weeks 2 days +/-21 days Poor evaluation of the cervix IMPRESSION: Single live intrauterine in cephalic presentation Estimated gestational age 35 weeks 2 days JAEL 03/16/2023 No retroplacental/subchorionic bleed Cardiac activity varies from 106 to 126 beats per minute.. 23:05 Differential diagnosis: [place], delivery of , labor. Data sp4 reviewed: vital signs, nurses notes, lab test result(s), CBC, electrolytes, hepatic panel, radiologic studies, ultrasound. Consideration of Admission/Observation Escalation of care including admission/observation considered. ED course: Patient's exam revealed no cervical dilation or effacement. Patient ultrasound reveals single intrauterine in cephalic presentation with gestational age 35 weeks 2 days. Patient was informed that we are not able to tell her if she is in labor because we do not have capacity for maternal- monitoring. Patient was advised to be transferred to [facility] in [place] for maternal monitoring. Patient declines transfer at this time sister would like to go home. Patient will be provided precautions to return to the emergency room as soon as possible in case discomfort and cramping gets worse. There is no sign of precipitous delivery at this time but were not able to tell patient if she is in early labor. Patient understands everything that we have discussed with her. . 02/11 20:39 Order name: CBC with Diff; Complete Time: 22:34 sp4 02/11 20:39 Order name: CMP; Complete Time: 22:34 sp4 02/11 20:57 Order name: PT-INR; Complete Time: 22:34 sp4 02/11 20:39 Order name: US OB Limited; Complete Time: 22:34 sp4 02/11 20:39 Order name: IV Saline Lock; Complete Time: 21:14 sp4 02/11 20:39 Order name: Labs collected and sent; Complete Time: 21:14 sp4 02/11 20:57 Order name: Pelvic Exam Setup; Complete Time: 22:59 sp4 Administered Medications: 21:26 Drug: NS 0.9% IV 1000 ml IV at 1 bolus Per protocol; 1000 mL bolus Route: IV; Rate: 1 km8 bolus; Site: left wrist; 22:59 Follow up: IV Status: Completed infusion; IV Intake: 1000ml km8 Disposition Summary: 02/11/23 23:03 Discharge Ordered Problem: new sp4 Symptoms: have improved sp4 Condition: Stable sp4 Diagnosis - 36 weeks gestation of sp4 - associated discomfort sp4 Followup: sp4 - With: Private Physician - When: 24 Hours - Reason: Recheck today's complaints Discharge Instructions: - Discharge Summary Sheet sp4 - Care sp4 Forms: - Patient Portal Instructions sp4 Signatures: Dispatcher [employer] Meenu Doll, RN RN lg3 Moshe Chris MD MD sp4 Viji Sparks RN RN km8
--- NOTE | 2023-02-11 23:04 | ER ---
Nurse's Notes [facility] Name: Brooke Thomas Age: 32 yrs Sex: Female : 1990 Arrival Date: 02/11/2023 Time: 20:26 Bed 1 Private MD: Diagnosis: 36 weeks gestation of ; associated discomfort Presentation: 02/11 20:45 Chief complaint: Patient states: lower abdominal pains and cramping X2 days and lg3 worsening. there was a small about of mucus like discharge when i wiped today. i don't think im in labor but i want to make sure. Coronavirus screen: Client denies travel out of the [place] in the last 14 days. At this time, the client does not indicate any symptoms associated with coronavirus-19. Ebola Screen: No symptoms or risks identified at this time. Initial Sepsis Screen: Does the patient meet any 2 criteria? No. Patient's initial sepsis screen is negative. Does the patient have a suspected source of infection? No. Patient's initial sepsis screen is negative. Risk Assessment: Do you want to hurt yourself or someone else? Patient reports no desire to harm self or others. Onset of symptoms was February 09, 2023. 20:45 Method Of Arrival: Ambulatory lg3 20:45 Acuity: ILA 3 lg3 Triage Assessment: 20:47 General: Appears in no apparent distress. comfortable, Behavior is cooperative, lg3 anxious. Pain: Complains of pain in abdomen. EENT: No deficits noted. No signs and/or symptoms were reported regarding the EENT system. Neuro: No deficits noted. Goldberg Agitation-Sedation Scale (RASS): 0 - Alert and Calm Level of Consciousness is awake, alert, obeys commands, Oriented to person, place, time, situation. Cardiovascular: No deficits noted. Denies chest pain, shortness of breath, Capillary refill < 3 seconds Clubbing of nail beds is absent JVD is absent Patient's skin is warm and dry. Respiratory: No deficits noted. Airway is patent Respiratory effort is even, unlabored, Respiratory pattern is regular, symmetrical. GI: Abdomen is round Reports lower abdominal pain. : No deficits noted. Reports discharge, bloody. Derm: No deficits noted. No signs and/or symptoms reported regarding the dermatologic system. Skin is intact, is healthy with good turgor, Skin is dry, Skin is normal, Skin temperature is warm. Musculoskeletal: No deficits noted. No signs and/or symptoms reported regarding the musculoskeletal system. Circulation, motion, and sensation intact. Range of motion: intact in all extremities. 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 - Social history:: Smoking status: Patient denies any tobacco usage or history of. Patient/guardian denies using alcohol, street drugs. - Family history:: not pertinent. Screenin:27 [facility] ED Fall Risk Assessment (Adult) History of falling in the last 3 months, km8 including since admission No falls in past 3 months (0 pts) Confusion or Disorientation No (0 pts) Intoxicated or Sedated No (0 pts) Impaired Gait No (0 pts) Mobility Assist Device Used No (0 pt) Altered Elimination No (0 pt) Score/Fall Risk Level 0 - 2 = Low Risk Oriented to surroundings, Maintained a safe environment, Educated pt \T\ family on fall prevention, incl call for assistance when getting out of bed, Assessed \T\ reinforced patient's understanding of fall precautions. Abuse screen: Denies threats or abuse. Denies injuries from another. Nutritional screening: No deficits noted. Tuberculosis screening: No symptoms or risk factors identified. Assessment: 21:27 General: Appears in no apparent distress. Behavior is calm, cooperative, appropriate km8 for age. Pain: Complains of pain in abdomen Pain radiates to pelvis Pain currently is 5 out of 10 on a pain scale. Quality of pain is described as crampy, Pain began 2-3 days ago. Neuro: Level of Consciousness is awake, alert, obeys commands, Oriented to person, place, time, situation. Cardiovascular: Capillary refill < 3 seconds Patient's skin is warm and dry. Respiratory: Airway is patent Respiratory effort is even, unlabored, Respiratory pattern is regular, symmetrical. GI: Abdomen is Bowel sounds present X 4 quads. did not palpated due to status. : No signs and/or symptoms were reported regarding the genitourinary system. EENT: No signs and/or symptoms were reported regarding the EENT system. Derm: No signs and/or symptoms reported regarding the dermatologic system. Skin is intact, is healthy with good turgor, Skin is dry, Skin is normal, Skin temperature is warm. Musculoskeletal: No signs and/or symptoms reported regarding the musculoskeletal system. Range of motion: intact in all extremities. 22:59 Reassessment: Patient appears in no apparent distress at this time. No changes from km8 previously documented assessment. Patient and/or family updated on plan of care and expected duration. Pain level reassessed. Patient is alert, oriented x 3, equal unlabored respirations, skin warm/dry/pink. Vital Signs: 20:45 BP 135 / 90; Pulse 92; Resp 17 S; Temp 98.1(O); Pulse Ox 100% on R/A; Weight 92.08 kg lg3 (R); Height 5 ft. 3 in. (R); 23:24 BP 112 / 54; Pulse 80; Resp 16; Pulse Ox 98% on R/A; km8 20:45 Body Mass Index 35.96 (92.08 kg, 160.02 cm) lg3 ED Course: 20:27 Patient arrived in ED. mr 20:38 Moshe Chris MD is Attending Physician. sp4 20:47 Triage completed. lg3 20:47 Arm band placed on right wrist. lg3 21:14 CBC with Diff Sent. bc6 21:14 CMP Sent. bc6 21:14 PT-INR Sent. bc6 21:14 Inserted saline lock: 20 gauge in left wrist, using aseptic technique. Blood collected. bc6 21:15 Viji Sparks, RN is Primary Nurse. km8 21:27 Patient has correct armband on for positive identification. Bed in low position. Call km8 light in reach. Side rails up X 1. Client placed on continuous cardiac and pulse oximetry monitoring. NIBP monitoring applied. Door closed. Noise minimized. Lights dimmed. 21:27 Patient maintains SpO2 saturation greater than 95% on room air. km8 21:38 US OB Limited In Process Unspecified. EDMS 23:24 No provider procedures requiring assistance completed. IV discontinued, intact, km8 bleeding controlled, No redness/swelling at site. Pressure dressing applied. 23:25 Provided Education on: d/c teaching. km8 Administered Medications: 21:26 Drug: NS 0.9% IV 1000 ml IV at 1 bolus Per protocol; 1000 mL bolus Route: IV; Rate: 1 km8 bolus; Site: left wrist; 22:59 Follow up: IV Status: Completed infusion; IV Intake: 1000ml km8 Medication: 23:25 VIS not applicable for this client. km8 Intake: 22:59 IV: 1000ml; Total: 1000ml. km8 Outcome: 23:03 Discharge ordered by . jesus 23:25 Discharged to home ambulatory, km8 23:25 Condition: good 23:25 Discharge instructions given to patient, Instructed on discharge instructions, follow up and referral plans. Demonstrated understanding of instructions, follow-up care, 23:25 Patient left the ED. km8 Signatures: Dispatcher [employer] EDMS Jodi Anders, Reg Reg Meenu Garcia, RN RN lg3 Gladys Boston bc6 Moshe Chris MD MD sp4 Viji Sparks, MARION RN km8 Corrections: (The following items were deleted from the chart) 21:27 21:26 NS 0.9% IV 1000 ml IV at 1 bolus in left antecubital km8 km8
[2023-02-12 00:17] VITALS: TEMP 98.1
[2023-02-12 00:19] VITALS: BP 112/54; O2SAT 98
== END 2023-02-11 23:25 | disposition home or self-care (01) ==
LOC: ER 20:26
DX: O26.893 Other specified pregnancy related conditions, third trimester (principal); O99.353 Diseases of the nervous system complicating pregnancy, third trimester; G47.419 Narcolepsy without cataplexy; Z3A.36 36 weeks gestation of pregnancy; Z88.1 Allergy status to other antibiotic agents
CPT/HCPCS: 96361; 85025; 36415; 85610; 80053; 76815; 96360; 99285; J7030

== ENCOUNTER 2023-03-10 06:41 | Emergency (ER) | payer OTHER ==
--- OUTSIDE RECORDS SUMMARY | 2023-03-10 06:56 | XMS REPORT | Continuity of Care Document ---
:1990 Author Organization [facility] t Address [address] [place] [address] [place] [id number] Care Team Providers Name Role Phone Asia ROBERTO, Amena Primary Care Physician Unavailable RUSTAM YU Attending Clinician Unavailable RUSTAM YU Attending Clinician Unavailable Rustam Yu MD Attending Clinician Carole Ramirez MD Attending Clinician Paula Izaguirre MD Attending Clinician [phone] PHILIP MAYES Attending Clinician Unavailable SHANTHI BAUER Attending Clinician Unavailable Shanthi Sheppard Attending Clinician [phone] SANIYA WOLF Attending Clinician Unavailable Saniya Wolf CNM Attending Clinician ROSIBEL RAMIREZ Attending Clinician Unavailable Rosibel Ramirez MD Attending Clinician Bin SCHULTZ, Iram Ash Attending Clinician Unavailable Doctor Unassigned, [place] Attending Clinician Unavailable AVELINO CLAYTON Attending Clinician Unavailable Ultrasound, Chloelalo Attending Clinician Unavailable Alesha Snider MD, Avelino Attending Clinician [phone] Amber Rey Attending Clinician Unavailable JA SALDANA Attending Clinician Unavailable Ja Saldana MD Attending Clinician 1, [facility] Room Attending Clinician Unavailable ALBERTO MONTES Attending Clinician Unavailable Alberto Montes MD Attending Clinician TERRENCE BARRON Attending Clinician Unavailable Faculty, Scott Dimaskristyn [facility] Attending Clinician Unavailable Terrence Barron MD Attending Clinician ADILSON CHERRY Attending Clinician Unavailable AMENA BETANCOURT Attending Clinician Unavailable AMENA BETANCOURT Attending Clinician Unavailable Pob, [facility] Attending Clinician Unavailable Lab, Scott Rider Attending Clinician Unavailable Susan MARTINEZ Attending Clinician [...] Attending Clinician Praveen Lizarraga Attending Clinician Unavailable RUSTAM YU Admitting Clinician Unavailable Rustam uY MD Admitting Clinician ROSIBEL RAMIREZ Admitting Clinician Unavailable Rosibel Ramirez MD Admitting Clinician AMENA BETANCOURT Admitting Clinician Unavailable Susan MARTINEZ Admitting Clinician Unavailable KAMERON DANIELS Admitting Clinician Unavailable Physician, No Primary or Family Admitting Clinician Unavaila ble Payers Payer Name Policy Type Policy Number Effective Date Expiration Date S rj $20 G [id number] 2007 00:00:00 [facility] [id number] 2022 CHOICE [place] STAR 00:00:00 [employer] [id number] 2022 OUT OF NETWORK 00:00:00 [facility] [place] [facility] [id number] 2022 00:00:00 Problems Condition Condition Condition Status Onset Resolution Last Treating Co mments Source Name Details Category Date Date Treatment Clinician Date 39 weeks 39 weeks Disease Active 2022-04 Unive rs gestation gestation 1-20 ity of of of 00:00: [place] [facility] Branch Obesity Obesity Disease Active 2022-04 Univers (BMI (BMI 1-20 ity of 30-39.9) 30-39.9) 00:00: [place] [facility] Obesity Obesity Disease Active 2022-04 Univers affecting affecting 1-07 [place] in third in third 00 Medica l trimester trimester Bran ch Anemia of Anemia of Disease Active 2022-04 Uni vers mother in mother in -01 ity of , , [place] antepartum antepartum 00 Me dical Branch Choroid Choroid Disease Active Overview: Univ ers plexus plexus 7-25 Formattin ity of cyst cyst 00:00: g of this note Medical might be Branch different from the original. Noted on Travisenenicole cs is recommend ed and a FU is suggested Multiparit Multiparit Disease Active 2022-0 U nivers y y 4-10 ity of 00:: Medical Branch Supervisio Supervisio Disease Active 2022-0 U nivers n of n of 4-10 ity of high-risk high-risk 00:00[place] [facility] History of History of Disease Active 2022-0 U nivers miscarriag miscarriag 4-10 it y of e e 00:: [place] [facility] Nausea and Nausea and Disease Active 2022-0 U nivers vomiting vomiting 4-10 ity of in in 00:: 00 [facility] Missed Missed Disease Active 2021-04 Univers 2-27 ity of 00:: Medical Branch Vaginal Vaginal Disease Active 2021-04 Univers bleeding bleeding 2-27 ity of 00:00: Medical Branch Rh Rh Disease Active 2021-04 Overview: Univer s negative negative 2-27 Formattin ity of state in state in 00:00: g of this [place] antepartum antepartum 00 note Me dical period period might be Branch different from the original. Will need rhogam 28 weeks, prn Bicornuate Bicornuate Disease Active 2021-04 U nivers uterus uterus 2-27 ity of 00:00: Medical Branch Bicornuate Bicornuate Disease Active 2021-04 U nivers uterus uterus 2-12 ity of affecting affecting 00:[place] , , 00 Me dical antepartum antepartum Br anch Abnormal Abnormal Disease Active 2021-04 Unive rs ultrasound ultrasound 2-12 it y of 00:00: Medical Branch Bicornuate Bicornuate Disease Active 2021-04 U nivers uterus uterus 2-12 ity of affecting affecting 00:00[place] , , 00 Me dical antepartum antepartum Br anch Suboxone Suboxone Disease Active 2021-04 Unive rs maintenanc maintenanc 04-24 it y of e e 00:00: [place] treatment treatment 00 Medi senait complicati complicati Br anch ng ng , , antepartum antepartum Narcolepsy Narcolepsy Disease Active 2021-04 Overview : Univers due to due to 04-24 Formattin ity of underlying underlying 00:00: g of this [place] condition condition 00 note Medi senait without without might be Branch cataplexy cataplexy different from the original. 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 Unive rs Leiden Leiden 04-24 ity of mutation, mutation, 00:00[place] heterozygo heterozygo 00 Me dical us us Branch Needs flu Needs flu Disease Active 2021-04 Uni vers shot shot 04-24 ity of 00:00: [place] [facility] Disease Active 2021-04 Uni vers examinatio examinatio 09 it y of n or test, n or test, 00:00[place] positive positive 00 Medica l result result Dequincy Disease Active 2021-04 Uni vers with with 1-09 ity of inconclusi inconclusi 00:00: [place] ve ve 00 Medica l viability, viability, Br anch single or single or unspecifie unspecifie d fetus d fetus Nausea and Nausea and Disease Active 2021-04 U nivers vomiting vomiting 1-09 ity of in in 00:00: [place] 00 [facility] prior to prior to Dequincy 22 weeks 22 weeks gestation gestation 5 weeks 5 weeks Disease Active 2021-04 Univers gestation gestation 1-09 ity of of of 00:00: [place] 00 [facility] 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 00:00[place] elial elial 00 Medical lesion lesion Branch (HGSIL), (HGSIL), grade 2 grade 2 STEFAN, on STEFAN, on biopsy of biopsy of cervix cervix Pain Pain Disease Active 2021-04 Univers pelvic pelvic 0-13 ity of 00:00: [address] S/P LEEP S/P LEEP Disease Active 2021-04 Unive rs 0-13 ity of 00:00: [address] BMI BMI Disease Active Univers 30.0-30.9, 30.0-30.9, 8-10 it y of adult adult 00:00: [address] Screening Screening Disease Active Uni vers examinatio examinatio 7-30 it y of n for STD n for STD 00:00: [place] (sexually (sexually 00 [facility] transmitte transmitte Br anch d disease) d disease) Late Late Disease Active Univers menses menses 7-30 ity of 00:00: [address] BMI BMI Disease Active Univers 29.0-29.9, 29.0-29.9, 7-30 it y of adult adult 00:00: [address] Well woman Well woman Disease Active U nivers exam with exam with 8-09 ity of routine routine 00:00: [place] gynecologi gynecologi 00 Me dical senait exam senait exam Branch Tobacco Tobacco Disease Active Overview: Univ ers use in use in 11-22 Formattin ity of 00:00: [place] 00 note Medical might be Branch different from the original. Reports quit x1 year ago Tobacco Tobacco Disease Active Univers use use 11-22 ity of disorder disorder 00:00: [place] 00 Medical Branch Allergies, Adverse Reactions, Alerts Allergy Allergy Status Severity Reaction(s) Onset Inactive Treating Comm ents Source Name Type Date Date Clinician Amoxicil Propensi Active Itching Unive rs jalen ty to 7 ity of adverse 00:00: [place] reaction 00 Medical s Branch AMOXICIL DRUG Active ITCHING Univers JALEN INGREDI 705 ity of 00:00: [place] 00 Medical Branch Penicill DA Active MO RASH 2020-04 [facility] ins 1-07 [place] 00:00: [address] [place] DA Active SV [facility] 6-11 [place] 00:00: [address] Social History Social Habit Start Date Stop Date Quantity Comments Source ASSERTION 2022-06-19 University of 00:00:00 [facility] History of tobacco Cigarette Smoker University of use [facility] Gender identity Universit y of [facility] Sexual orientation Univer sity of [facility] Alcohol intake 2023-03-05 2023-03-05 Lifetime University of 00:00:00 00:00:00 non-drinker [facility] (finding) Branch Exposure to 2022-09-08 2022-09-18 Not sure University of SARS-CoV-2 (event) 00:00:00 15:45:00 [facility] History of Social 2022-09-18 2022-09-18 Univers ity of function 00:00:00 00:00:00 [facility] Cigarettes smoked 2022-07-24 2022-07-24 Univers ity of current (pack per 00:00:00 00:00:00 ) - Reported Branch Cigarette 2022-07-24 2022-07-24 University of pack-years 00:00:00 00:00:00 [facility] Tobacco use and 2022-07-24 2022-07-24 Smokeless Universit y of exposure 00:00:00 00:00:00 tobacco non-user [facility] Tobacco Comment 2021-10-27 2021-10-27 taking Chantix Unive rsity of 00:00:00 00:00:00 [facility] Sex Assigned At [birth year] Universit y of 00:00:00 00:00:00 [facility] Smoking Status Start Date Stop Date Source Ex-smoker 2022-07-24 00:00:00 2022-07-24 00:00:00 Universi ty [facility] Smokes tobacco daily 2021-10-27 00:00:00 [facility] ity [facility] Medications Ordered Filled Start Stop Current Ordering Indication Dosage Frequency Signature Comments Components Source Medication Medication Date Date Medication? Clinician (SIG) Name Name methylpheni 2022-04 Yes 5mg Take 1 Univ ers date HCl 5 1-22 tablet by ity of mg tablet 13:07: mouth in [facility] s 47 the Medical morning Branch and 1 tablet at noon and 1 tablet in the evening. enoxaparin 2022-04 Yes 40mg 40 mg, Unive rs (LOVENOX) 1-21 Subcutaneo ity of injection 21:00: us, Q24H, [place] as 40 mg 00 First dose Medical on Sun Dequincy 03/06/23 at 1500, Until Discontinu ed, Routine methylpheni 2022-04 Yes 5mg Take 1 Univ ers date HCl 5 -21 tablet by ity of mg tablet 12:36: mouth in [facility] s 49 the Medical morning Branch and 1 tablet at noon and 1 tablet in the evening. acetaminoph 2022-04 Yes 650mg [Order 1 U randi en 05-06 Start] ity of (TYLENOL) 05:25: Name: [place] tablet 650 59 acetaminop Med ical mg [facility] (TYLENOL) tablet 650 mg Signed Summary: 650 mg, Oral, Q6HPRN, Starting on Sun03/05/23 at 2325, Until Discontinu ed, Routine, Pain (scale 4-6) [Order 1 End] [Order 2 Start] Name: ibuprofen (IBU) tablet 600 mg Signed Summary: 600 mg, Oral, Q6HPRN, Starting on Sun03/05/23 at 2325, Until Discontinu ed, Routine, pain 7-10 [Order 2 End] diphenhydrA 2022-04 Yes 25mg 25 mg, Univ ers MINE 05-06 Oral, ity of (BENADRYL) 05:25: Q6HPRN, [place] tablet 25 59 Starting Medica l mg on Sun Branch 03/05/23 at 2325, Until Discontinu ed, Routine, Sleep, Itching ondansetron 2022-04 Yes 4mg 4 mg, Slow Univers (ZOFRAN 05-06 IV Push, ity of (PF)) 05:25: Q8HPRN, [place] injection 4 59 Starting Medi senait mg on Sun Branch 03/05/23 at 2325, Until Discontinu ed, Routine, Nausea and Vomiting (N/V) simethicone 2022-04 Yes 160mg 160 mg, Un queta (GAS RELIEF 05-06 Oral, ity of (SIMETHICON 05:25: PC+HSPRN, [place] E)) 59 Starting Medical chewable on Sun tablet 160 03/05/23 mg at 2325, Until Discontinu ed, Routine, Gas docusate 2022-04 Yes 200mg 200 mg, Unive rs (COLACE) 05-06 Oral, ity of capsule 200 05:25: QDAILYPRN, [place] mg 59 Starting Medical on Sun Branch 03/05/23 at 2325, Until Discontinu ed, Routine, Constipati on magnesium 2022-04 Yes 30mL 30 mL, Univer s hydroxide 05-06 Oral, ity of (MILK OF 05:25: QDAILYPRN, [place] MAGNESIA) 59 Starting Medica l 400 mg/5 mL on Sun Branch suspension 03/05/23 30 mL at 2325, Until Discontinu ed, Routine, Constipati on benzocaine- 2022-04 Yes Topical, Un queta menthol 05-06 PRN, ity of (DERMOPLAST 05:25: [place] ) 20-0.5 % 59 on Sun Medical topical 03/05/23 Branch spray at 2325, Until Discontinu ed, Routine, Perineum discomfort buprenorphi 2022-04 Yes 2mg 2 mg, Unive rs ne HCL 05-06 Sublingual ity of (SUBUTEX) 02:00: , BID, [place] sublingual 00 First dose Med ical tablet 2 mg (after Branch last modificati on) on Sun03/05/23 at 2000, Until Discontinu ed, Routine enoxaparin 2022-04 Yes [id number] 40mg inject 0.4 Univers 40 mg/0.4 1-21 mL under ity of mL 00:00: the skin [place] injection 00 every 24 Medica l (twenty-fo Branch ur) hours. 2022-04 Yes [id number] 1{tbl} Take 1 Univers [id number] 1-21 tablet by ity of fum-folic 00:00: [facility] Medical 27 mg iron- morning. Bran ch 1 mg folic tablet docusate 2022-04 Yes [id number] 200mg Take 2 U nivers 100 mg 1-21 capsules ity of capsule 00:00: by mouth [place] 00 once daily Medical as needed Branch for Constipati on. ferrous 2022-04 Yes [id number] 325mg Take 1 Un queta sulfate 325 1-21 tablet by ity of mg (65 mg 00:00: [place] iron) 00 the Medical tablet morning Branch and 1 tablet in the evening. ibuprofen 2022-04 Yes [id number] 600mg Take 1 Univers 600 mg 1-21 tablet by ity of tablet 00:00: mouth [place] 00 every 6 Medical (six) Branch hours as needed (Pain). Take with food or milk. PIB 2022-04- No Epidural, Univers ropivacaine 05-05 CONTINUOUS i ty of 0.2 % 20:58: 04:15 PRN, [place] (NAROPIN 00 :48 Starting Medical (PF)) on Sun Branch epidural 03/05/23 infusion at 1458, Until Discontinu ed, Routine, Intra-op PIB 2022-04- No Epidural, Univers ropivacaine -03-06 CONTINUOUS i ty of 0.2 % 20:58: 04:15 PRN, [place] (NAROPIN 00 :48 Starting Medical (PF)) on Sun Branch epidural 03/05/23 infusion at 1458, Until Discontinu ed, Routine, Intra-op PIB 2022-04- No Epidural, Univers ropivacaine 1-03-06 CONTINUOUS i ty of 0.2 % 20:58: 04:15 PRN, [place] (NAROPIN 00 :48 Starting Medical (PF)) on Sun Branch epidural 03/05/23 infusion at 1458, Until Discontinu ed, Routine, Intra-op lidocaine-e 2022-04- No Intraderma Univers pinephrine -05 03- l, ONCE ity o f (XYLOCAINE 20:56: 04:15 INTRA [place] W/EPINEPHRI 00 :48 PROCEDURE, Me dical NE) 1.5 Starting Branch %-1:200,000 on Mon injection 03/05/23 at 1456, Until Discontinu ed, Routine, Intra-op lidocaine-e 2022-04- No Intraderma Univers pinephrine -05 03- l, ONCE ity o f (XYLOCAINE 20:56: 04:15 INTRA [place] W/EPINEPHRI 00 :48 PROCEDURE, Me dical NE) 1.5 Starting Branch %-1:200,000 on Mon injection 03/05/23 at 1456, Until Discontinu ed, Routine, Intra-op lidocaine-e 2022-04- No Intraderma Univers pinephrine -03-06 l, ONCE ity o f (XYLOCAINE 20:56: 04:15 INTRA [place] W/EPINEPHRI 00 :48 PROCEDURE, Me dical NE) 1.5 Starting Branch %-1:200,000 on Mon injection 03/05/23 at 1456, Until Discontinu ed, Routine, Intra-op buprenorphi 2022-04 Yes 4mg 4 mg, Unive rs ne HCL 1-20 Sublingual ity of (SUBUTEX) 18:30: , [place]UNCH, [place] sublingual 00 First dose Med ical tablet 4 mg on Sun Branch 03/05/23 at 1230, Until Discontinu ed, Routine oxytocin 2022-04- No 2mU/min at 2-40 Un queta (PITOCIN) 1-20 11-21 mL/hr, IV ity of 30 units in 17:13: 05:26 Infusion, [place] NS 500 mL 47 :03 TITRATE, Medica l IV infusion Starting Bran ch on Sun03/05/23 at 1113, Until Sun03/05/23 at 2326, TIANNA [id number] IV 2022-04- No 1000mL at 1-125 U nivers infusion 1-20 11-21 mL/hr, IV ity o f 1,000 mL 17:13: 05:26 Infusion, [place] as 36 :03 TITRATE, Medical Starting Branch on Sun03/05/23 at 1113, Until Sun03/05/23 at 2326, Routine methylpheni 2022-04 Yes 5mg Take 1 Univ ers date HCl 5 1-20 tablet by ity of mg tablet 11:49: mouth in [place] [address] the Medical morning Branch and 1 tablet at noon and 1 tablet in the evening. methylpheni 2022-04 Yes 5mg Take 1 Univ ers date HCl 5 1-20 tablet by ity of mg tablet 11:49: mouth in [facility] 52 the Medical morning Branch and 1 tablet at noon and 1 tablet in the evening. Iron Fum & 2022-04 Yes [id number] 1{capsu Take 1 Univers P-FA-Vit B 1-07 le} capsule by ity of & C No.9 00:00: mouth in [place] ([employer] 00 the Medical PLUS) 125 morning. Branch mg iron- 1 mg Cap Iron Fum & 2022-04 Yes [id number] 1{capsu Take 1 Univers P-FA-Vit B 1-07 le} capsule by ity of & C No.9 00:00: mouth in [place] ([employer] 00 the Medical PLUS) 125 morning. Branch mg iron- 1 mg Cap Iron Fum & 2022-04 Yes [id number] 1{capsu Take 1 Univers P-FA-Vit B 1-07 le} capsule by ity of & C No.9 00:00: mouth in [place] ([employer] 00 the Medical PLUS) 125 morning. Branch mg iron- 1 mg Cap Iron Fum & 2022-04 Yes [id number] 1{capsu Take 1 Univers P-FA-Vit B 1-07 le} capsule by ity of & C No.9 00:00: mouth in [place] ([employer] 00 the Medical PLUS) 125 morning. Branch mg iron- 1 mg Cap Iron Fum & 2022-04 Yes [id number] 1{capsu Take 1 Univers P-FA-Vit B 1-07 le} capsule by ity of & C No.9 00:00: mouth in [place] ([employer] 00 the Medical PLUS) 125 morning. Branch mg iron- 1 mg Cap Iron Fum & 2022-04 Yes [id number] 1{capsu Take 1 Univers P-FA-Vit B 1-07 le} capsule by ity of & C No.9 00:00: mouth in [place] ([employer] 00 the Medical [facility]) 125 morning. Branch mg iron- 1 mg Cap methylpheni 2022- Yes 5mg Take 1 Univ ers date HCl 5 1-03 tablet by ity of mg tablet 17:22: mouth in [facility] 23 the Medical morning Branch and 1 tablet at noon and 1 tablet in the evening. methylpheni 3-1 Yes 5mg Take 1 Univ ers date HCl 5 1-03 tablet by ity of mg tablet 17:22: mouth in [facility] 23 the Medical morning Branch and 1 tablet at noon and 1 tablet in the evening. methylpheni 3-1 Yes 5mg Take 1 Univ ers date HCl 5 1-03 tablet by ity of mg tablet 17:22: mouth in [facility] 23 the Medical morning Branch and 1 tablet at noon and 1 tablet in the evening. methylpheni 3-1 Yes 5mg Take 1 Univ ers date HCl 5 1-03 tablet by ity of mg tablet 17:22: mouth in [facility] 23 the Medical morning Branch and 1 tablet at noon and 1 tablet in the evening. methylpheni 3-1 Yes 5mg Take 1 Univ ers date HCl 5 1-03 tablet by ity of mg tablet 17:22: mouth in [place] [address] the Medical morning Dequincy and 1 tablet at noon and 1 tablet in the evening. doxylamine- 2022-04 Yes [id number] 2{tbl} Take 2 Univers pyridoxine, 1-03 tablets by it y of vit B6, 00:00: mouth at [place] ([facility] 00 bedtime. Medic al 10-10 mg Branch per tablet doxylamine- 2022-04 Yes [id number] 2{tbl} Take 2 Univers pyridoxine, 1-03 tablets by it y of vit B6, 00:00: mouth at [place] ([facility]) 00 bedtime. Medic al 10-10 mg Branch per tablet doxylamine- 2022-04 Yes [id number] 2{tbl} Take 2 Univers pyridoxine, 1-03 tablets by it y of vit B6, 00:00: mouth at [place] ([facility]) 00 bedtime. Medic al 10-10 mg Branch per tablet doxylamine- 2022-04 Yes [id number] 2{tbl} Take 2 Univers pyridoxine, 1-03 tablets by it y of vit B6, 00:00: mouth at [facility] 00 bedtime. Medic al 10-10 mg Branch per tablet doxylamine- 2022-04 Yes [id number] 2{tbl} Take 2 Univers pyridoxine, 1-03 tablets by it y of vit B6, 00:00: mouth at [facility]) 00 bedtime. Medic al 10-10 mg Branch per tablet doxylamine- 2022-04 Yes [id number] 2{tbl} Take 2 Univers pyridoxine, 1-03 tablets by it y of vit B6, 00:00: mouth at [facility]) 00 bedtime. Medic al 10-10 mg Branch per tablet doxylamine- 2022-04 Yes [id number] 2{tbl} Take 2 Univers pyridoxine, 1-03 tablets by it y of vit B6, 00:00: mouth at [facility]) 00 bedtime. Medic al 10-10 mg Branch per tablet doxylamine- 2022-04 Yes [id number] 2{tbl} Take 2 Univers pyridoxine, 1-03 tablets by it y of vit B6, 00:00: mouth at [facility]) 00 bedtime. Medic al 10-10 mg Branch per tablet doxylamine- 2022-04 Yes [id number] 2{tbl} Take 2 Univers pyridoxine, 1-03 tablets by it y of vit B6, 00:00: mouth at [facility] 00 bedtime. Medic al 10-10 mg Branch per tablet doxylamine- 2022-04- No [id number] 2{tbl} Take 2 Univers pyridoxine, 1-03 11-21 tablets by i ty of vit B6, 00:00: 00:00 mouth at [facility]) 00 :00 bedtime. Medic al 10-10 mg Branch per tablet doxylamine- 2022-04- No [id number] 2{tbl} Take 2 Univers pyridoxine, 1-03 11-21 tablets by i ty of vit B6, 00:00: 00:00 mouth at [facility]) 00 :00 bedtime. Medic al 10-10 mg Branch per tablet ascorbic 2023-1 Yes [id number] 500mg Take 1 Un queta acid, 1-01 tablet by ity of vitamin C, 00:00: mouth in [place] 500 mg 00 the Medical tablet morning Branch and 1 tablet at noon and 1 tablet in the evening. ferrous 2022-04 Yes [id number] 325mg Take 1 Uni vers sulfate 325 1-01 tablet by ity of mg (65 mg 00:00: [place] iron[place] 00 the Medical tablet morning Branch and 1 tablet in the evening. ascorbic 2022-04 Yes [id number] 500mg Take 1 Un queta acid, 1-01 tablet by ity of vitamin C, 00:00: mouth in [place] 500 mg 00 the Medical tablet morning Branch and 1 tablet at noon and 1 tablet in the evening. ferrous 2022-04 Yes [id number] 325mg Take 1 Uni vers sulfate 325 1-01 tablet by ity of mg (65 mg 00:00: [place] iron[place] 00 the Medical tablet morning Branch and 1 tablet in the evening. ascorbic 2022-04 Yes [id number] 500mg Take 1 Un queta acid, 1-01 tablet by ity of vitamin C, 00:00: mouth in [place] 500 mg 00 the Medical tablet morning Branch and 1 tablet at noon and 1 tablet in the evening. ferrous 2022-04 Yes [id number] 325mg Take 1 Uni vers sulfate 325 1-01 tablet by ity of mg (65 mg 00:00: [place] iron[place] 00 the Medical tablet morning Branch and 1 tablet in the evening. ascorbic 2022-04 Yes [id number] 500mg Take 1 Un queta acid, 1-01 tablet by ity of vitamin C, 00:00: mouth in [place] 500 mg 00 the Medical tablet morning Branch and 1 tablet at noon and 1 tablet in the evening. ferrous 2022-04 Yes [id number] 325mg Take 1 Uni vers sulfate 325 1-01 tablet by ity of mg (65 mg 00:00: [place] iron[place] 00 the Medical tablet morning Branch and 1 tablet in the evening. ascorbic 2022-04 Yes [id number] 500mg Take 1 Un queta acid, 1-01 tablet by ity of vitamin C, 00:00: mouth in [place] 500 mg 00 the Medical tablet morning Branch and 1 tablet at noon and 1 tablet in the evening. ferrous 2022-04 Yes [id number] 325mg Take 1 Uni vers sulfate 325 -01 tablet by ity of mg (65 mg 00:00: [place] iron[place] 00 the Medical tablet morning Branch and 1 tablet in the evening. ascorbic 2022-04 Yes [id number] 500mg Take 1 Un queta acid, -01 tablet by ity of vitamin C, 00:00: mouth in [place] 500 mg 00 the Medical tablet morning Branch and 1 tablet at noon and 1 tablet in the evening. ferrous 2022-04 Yes [id number] 325mg Take 1 Uni vers sulfate 325 -01 tablet by ity of mg (65 mg 00:00: [place] iron[place] 00 the Medical tablet morning Branch and 1 tablet in the evening. ascorbic 2022-04 Yes [id number] 500mg Take 1 Un queta acid, -01 tablet by ity of vitamin C, 00:00: mouth in [place] 500 mg 00 the Medical tablet morning Branch and 1 tablet at noon and 1 tablet in the evening. ferrous 2022-04 Yes [id number] 325mg Take 1 Uni vers sulfate 325 - tablet by ity of mg (65 mg 00:00: [place] iron[place] 00 the Medical tablet morning Branch and 1 tablet in the evening. ascorbic 2022-04- No [id number] 500mg Take 1 U nivers acid, 04-16 tablet by ity of vitamin C, 00:00: [place]:00 [place] 500 mg 00 :00 the Medical tablet morning Branch and 1 tablet at noon and 1 tablet in the evening. ferrous 2022-04- No [id number] 325mg Take 1 Un queta sulfate 325 04-16 tablet by it y of mg (65 mg 00:00: 00:00 mouth in [place] iron) 00 :00 the Medical tablet morning Branch and 1 tablet in the evening. doxylamine- Yes [id number] 2{tbl} Take 2 [facility] pyridoxine, 8-29 tablets by it y of vit B6, 00:00: mouth at [place] ([facility]) 00 bedtime. Medic al 10-10 mg Branch per tablet doxylamine- Yes [id number] 2{tbl} Take 2 [facility] pyridoxine, 8-29 tablets by it y of vit B6, 00:00: mouth at [place] [address] bedtime. Medic al 10-10 mg Branch per tablet doxylamine- 2023-0 Yes [id number] 2{tbl} Take 2 [facility] pyridoxine, 8-29 tablets by it y of vit B6, 00:00: mouth at [place] [address] bedtime. Medic al 10-10 mg Branch per tablet doxylamine- 2023-0 Yes [id number] 2{tbl} Take 2 [facility] pyridoxine, 8-29 tablets by it y of vit B6, 00:00: mouth at [place] [address] bedtime. Medic al 10-10 mg Branch per tablet doxylamine- 2023-0 Yes [id number] 2{tbl} Take 2 [facility] pyridoxine, 8-29 tablets by it y of vit B6, 00:00: mouth at [place] [address] bedtime. Medic al 10-10 mg Branch per tablet doxylamine- 3-0 Yes [id number] 2{tbl} Take 2 [facility] pyridoxine, 8-29 tablets by it y of vit B6, 00:00: mouth at [place] [address] bedtime. Medic al 10-10 mg Branch per tablet doxylamine- 3-0 Yes [id number] 2{tbl} Take 2 [facility] pyridoxine, 8-29 tablets by it y of vit B6, 00:00: mouth at [place] [address] bedtime. Medic al 10-10 mg Branch per tablet doxylamine- 3-0 Yes [id number] 2{tbl} Take 2 [facility] pyridoxine, 8-29 tablets by it y of vit B6, 00:00: mouth at [place] [address] bedtime. Medic al 10-10 mg Branch per tablet doxylamine- 2023-0 Yes [id number] 2{tbl} Take 2 [facility] pyridoxine, 8-29 tablets by it y of vit B6, 00:00: mouth at [facility] 00 bedtime. Medic al 10-10 mg Branch per tablet doxylamine- 3-0 Yes [id number] 2{tbl} Take 2 [facility] pyridoxine, 8-29 tablets by it y of vit B6, 00:00: mouth at [place] ([facility]) 00 bedtime. Medic al 10-10 mg Branch per tablet doxylamine- 2023-0 Yes [id number] 2{tbl} Take 2 [facility] pyridoxine, 8-29 tablets by it y of vit B6, 00:00: mouth at [facility] 00 bedtime. Medic al 10-10 mg Branch per tablet doxylamine- 2023-0 Yes [id number] 2{tbl} Take 2 [facility] pyridoxine, 8-29 tablets by it y of vit B6, 00:00: mouth at [facility] 00 bedtime. Medic al 10-10 mg Branch per tablet doxylamine- 2023-0 Yes [id number] 2{tbl} Take 2 [facility] pyridoxine, 8-29 tablets by it y of vit B6, 00:00: mouth at [facility] 00 bedtime. Medic al 10-10 mg Branch per tablet doxylamine- 2023-0 Yes [id number] 2{tbl} Take 2 [facility] pyridoxine, 8-29 tablets by it y of vit B6, 00:00: mouth at [facility] 00 bedtime. Medic al 10-10 mg Branch per tablet doxylamine- 2023-0 Yes [id number] 2{tbl} Take 2 [facility] pyridoxine, 8-29 tablets by it y of vit B6, 00:00: mouth at [facility] 00 bedtime. Medic al 10-10 mg Branch per tablet doxylamine- 2023-0 2023- No [id number] 2{tbl} Take 2 [facility] pyridoxine, 8-29 11- tablets by i ty of vit B6, 00:00: 00:00 mouth at [facility]) 00 :00 bedtime. Medic al 10-10 mg Branch per tablet methylpheni 2023-0 Yes 5mg Take 1 Univ ers date HCl 5 8-03 tablet by ity of mg tablet 10:30: mouth in [facility] 36 the Medical morning Branch and 1 [...] ity of mg tablet 10:30: mouth in [place] [address] the [facility] Branch and 1 tablet at noon and 1 tablet in the evening. methylpheni 2023-0 Yes 5mg Take 1 Univ ers date HCl 5 8-03 tablet by ity of mg tablet 10:30: mouth in [place] [address] the [facility] Branch and 1 tablet at noon and 1 tablet in the evening. methylpheni 2023-0 Yes 5mg Take 1 [facility] ers date HCl 5 8-03 tablet by ity of mg tablet 10:30: mouth in [place] [address] the [facility] Branch and 1 tablet at noon and 1 tablet in the evening. methylpheni 2023-0 Yes 5mg Take 1 [facility] ers date HCl 5 8-03 tablet by ity of mg tablet 10:30: mouth in [address] and 1 tablet at noon and 1 tablet in the evening. methylpheni 2023-0 Yes 5mg Take 1 [facility] ers date HCl 5 8-03 tablet by ity of mg tablet 10:30: mouth in [address] and 1 tablet at noon and 1 tablet in the evening. methylpheni 2023-0 Yes 5mg Take 1 [facility] ers date HCl 5 8-03 tablet by ity of mg tablet 10:30: mouth in [address] and 1 tablet at noon and 1 tablet in the evening. methylpheni 2023-0 Yes 5mg Take 1 [facility] ers date HCl 5 8-03 tablet by ity of mg tablet 10:30: mouth in [address] and 1 tablet at noon and 1 tablet in the evening. methylpheni 2023-0 Yes 5mg Take 1 [facility] ers date HCl 5 8-03 tablet by ity of mg tablet 10:30: mouth in [place] [address] [facility] and 1 tablet at noon and 1 tablet in the evening. methylpheni 2023-0 Yes 5mg Take 1 [facility] ers date HCl 5 8-03 tablet by ity of mg tablet 10:30: mouth in [address] and 1 tablet at noon and 1 tablet in the evening. methylpheni 2023-0 Yes 5mg Take 1 [facility] ers date HCl 5 8-03 tablet by ity of mg tablet 10:30: mouth in [place] [address] the Medical morning Branch and 1 tablet at noon and 1 tablet in the evening. methylpheni 2023-0 Yes 5mg Take 1 [facility] ers date HCl 5 8-03 tablet by ity of mg tablet 10:30: mouth in [place] [address] the Medical morning Branch and 1 tablet at noon and 1 tablet in the evening. methylpheni 2023-0 Yes 5mg Take 1 [facility] ers date HCl 5 8-03 tablet by ity of mg tablet 10:30: mouth in [place] [address] the Medical morning Branch and 1 tablet at noon and 1 tablet in the evening. methylpheni 2023-0 Yes 5mg Take 1 [facility] ers date HCl 5 8-03 tablet by ity of mg tablet 10:30: mouth in [place] [address] the [facility] morning Branch and 1 tablet at noon and 1 tablet in the evening. methylpheni 2023-0 Yes 5mg Take 1 [facility] ers date HCl 5 8-03 tablet by ity of mg tablet 10:30: mouth in [place] [address] the [facility] Branch and 1 tablet at noon and 1 tablet in the evening. methylpheni 2023-0 Yes 5mg Take 1 [facility] ers date HCl 5 8-03 tablet by ity of mg tablet 10:30: mouth in [address] and 1 tablet at noon and 1 tablet in the evening. methylpheni 2023-0 Yes 5mg Take 1 Univ ers date HCl 5 8-03 tablet by ity of mg tablet 10:30: mouth in [place] [address] the [facility] morning Branch and 1 tablet at noon and 1 tablet in the evening. methylpheni 2023-0 Yes 5mg Take 1 [facility] ers date HCl 5 8-03 tablet by ity of mg tablet 10:30: mouth in [place] [address] the Medical morning Branch and 1 tablet at noon and 1 tablet in the evening. methylpheni 2023-0 Yes 5mg Take 1 [facility] ers date HCl 5 8-03 tablet by ity of mg tablet 10:30: mouth in [place] [address] the [facility] morning Branch and 1 tablet at noon and 1 tablet in the evening. methylpheni 2023-0 Yes 5mg Take 1 [facility] ers date HCl 5 8-03 tablet by ity of mg tablet 10:30: mouth in [address] morning Branch and 1 tablet at noon and 1 tablet in the evening. methylpheni 2023-0 Yes 5mg Take 1 Univ ers date HCl 5 8-03 tablet by ity of mg tablet 10:30: mouth in [place] [address] the [facility] morning Branch and 1 tablet at noon and 1 tablet in the evening. methylpheni 2023-0 Yes 5mg Take 1 [facility] ers date HCl 5 8-03 tablet by ity of mg tablet 10:30: mouth in [place] [address] the [facility] morning Branch and 1 tablet at noon and 1 tablet in the evening. methylpheni 2023-0 Yes 5mg Take 1 [facility] ers date HCl 5 8-03 tablet by ity of mg tablet 10:30: mouth in [place] [address] [facility] and 1 tablet at noon and 1 tablet in the evening. methylpheni 2023-0 Yes 5mg Take 1 [facility] ers date HCl 5 8-03 tablet by ity of mg tablet 10:30: mouth in [address] and 1 tablet at noon and 1 tablet in the evening. methylpheni 2023-0 Yes 5mg Take 1 [facility] ers date HCl 5 8-03 tablet by ity of mg tablet 10:30: mouth in [address] and 1 tablet at noon and 1 tablet in the evening. [facility] 3-0 Yes [id number] TAKE 2 [facility] vers 10-10 mg 7-06 TABLETS BY ity o f per tablet 00:00: MOUTH AT [place] 00 BEDTIME IF Medical NO RELIEF Branch ON DAY 3 TAKE 1 TAB. IN THE MORNING AND 2 TABS. AT BEDTIME, NO RELIEF DAY 4 TAKE 1 TAB. MORNING, 1 TAB. IN AFTERNOON AND 2 TABS. BEDTIME [facility] 3-0 Yes [id number] TAKE 2 [facility] vers 10-10 mg 7-06 TABLETS BY ity o f per tablet 00:00: MOUTH AT [place] 00 BEDTIME IF Medical NO RELIEF Branch ON DAY 3 TAKE 1 TAB. IN THE MORNING AND 2 TABS. AT BEDTIME, NO RELIEF DAY 4 TAKE 1 TAB. MORNING, 1 TAB. IN AFTERNOON AND 2 TABS. BEDTIME [facility] 3-0 Yes [id number] TAKE 2 [facility] vers 10-10 mg 7-06 TABLETS BY ity o f per tablet 00:00: MOUTH AT [place] 00 BEDTIME IF Medical NO RELIEF Branch ON DAY 3 TAKE 1 TAB. IN THE MORNING AND 2 TABS. AT BEDTIME, NO RELIEF DAY 4 TAKE 1 TAB. MORNING, 1 TAB. IN AFTERNOON AND 2 TABS. BEDTIME [facility] 2022-0 Yes [id number] TAKE 2 [facility] vers 10-10 mg 7-06 TABLETS BY ity o f per tablet 00:00: MOUTH AT [place] 00 BEDTIME IF Medical NO RELIEF Branch ON DAY 3 TAKE 1 TAB. IN THE MORNING AND 2 TABS. AT BEDTIME, NO RELIEF DAY 4 TAKE 1 TAB. MORNING, 1 TAB. IN AFTERNOON AND 2 TABS. BEDTIME [facility] 2022-0 Yes [id number] TAKE 2 [facility] vers 10-10 mg 7-06 TABLETS BY ity o f per tablet 00:00: MOUTH AT [place] 00 BEDTIME IF Medical NO RELIEF Branch ON DAY 3 TAKE 1 TAB. IN THE MORNING AND 2 TABS. AT BEDTIME, NO RELIEF DAY 4 TAKE 1 TAB. MORNING, 1 TAB. IN AFTERNOON AND 2 TABS. BEDTIME [facility] 2022-0 Yes [id number] TAKE 2 [facility] vers 10-10 mg 7-06 TABLETS BY ity o f per tablet 00:00: MOUTH AT [place] 00 BEDTIME IF Medical NO RELIEF Branch ON DAY 3 TAKE 1 TAB. IN THE MORNING AND 2 TABS. AT BEDTIME, NO RELIEF DAY 4 TAKE 1 TAB. MORNING, 1 TAB. IN AFTERNOON AND 2 TABS. BEDTIME [facility] 2022-0 Yes [id number] TAKE 2 [facility] vers 10-10 mg 7-06 TABLETS BY ity o f per tablet 00:00: MOUTH AT [place] 00 BEDTIME IF Medical NO RELIEF Branch ON DAY 3 TAKE 1 TAB. IN THE MORNING AND 2 TABS. AT BEDTIME, NO RELIEF DAY 4 TAKE 1 TAB. MORNING, 1 TAB. IN AFTERNOON AND 2 TABS. BEDTIME [facility] 2022-0 Yes [id number] TAKE 2 [facility] vers 10-10 mg 7-06 TABLETS BY ity o f per tablet 00:00: MOUTH AT [place] 00 BEDTIME IF Medical NO RELIEF Branch ON DAY 3 TAKE 1 TAB. IN THE MORNING AND 2 TABS. AT BEDTIME, NO RELIEF DAY 4 TAKE 1 TAB. MORNING, 1 TAB. IN AFTERNOON AND 2 TABS. BEDTIME [facility] Yes [id number] TAKE 2 [facility] vers 10-10 mg 7-06 TABLETS BY ity o f per tablet 00:00: MOUTH AT [place] 00 BEDTIME IF Medical NO RELIEF Branch ON DAY 3 TAKE 1 TAB. IN THE MORNING AND 2 TABS. AT BEDTIME, NO RELIEF DAY 4 TAKE 1 TAB. MORNING, 1 TAB. IN AFTERNOON AND 2 TABS. BEDTIME [facility] Yes [id number] TAKE 2 [facility] vers 10-10 mg 7-06 TABLETS BY ity o f per tablet 00:00: MOUTH AT [place] 00 BEDTIME IF Medical NO RELIEF Branch ON DAY 3 TAKE 1 TAB. IN THE MORNING AND 2 TABS. AT BEDTIME, NO RELIEF DAY 4 TAKE 1 TAB. MORNING, 1 TAB. IN AFTERNOON AND 2 TABS. BEDTIME [facility] Yes [id number] TAKE 2 [facility] vers 10-10 mg 7-06 TABLETS BY ity o f per tablet 00:00: MOUTH AT [place] 00 BEDTIME IF Medical NO RELIEF Branch ON DAY 3 TAKE 1 TAB. IN THE MORNING AND 2 TABS. AT BEDTIME, NO RELIEF DAY 4 TAKE 1 TAB. MORNING, 1 TAB. IN AFTERNOON AND 2 TABS. BEDTIME [facility] Yes [id number] TAKE 2 [facility] vers 10-10 mg 7-06 TABLETS BY ity o f per tablet 00:00: MOUTH AT [place] 00 BEDTIME IF Medical NO RELIEF Branch ON DAY 3 TAKE 1 TAB. IN THE MORNING AND 2 TABS. AT BEDTIME, NO RELIEF DAY 4 TAKE 1 TAB. MORNING, 1 TAB. IN AFTERNOON AND 2 TABS. BEDTIME [facility] Yes [id number] TAKE 2 [facility] vers 10-10 mg 7-06 TABLETS BY ity o f per tablet 00:00: MOUTH AT [place] 00 BEDTIME IF Medical NO RELIEF Branch ON DAY 3 TAKE 1 TAB. IN THE MORNING AND 2 TABS. AT BEDTIME, NO RELIEF DAY 4 TAKE 1 TAB. MORNING, 1 TAB. IN AFTERNOON AND 2 TABS. BEDTIME [facility] Yes [id number] TAKE 2 [facility] vers 10-10 mg 7-06 TABLETS BY ity o f per tablet 00:00: MOUTH AT [place] 00 BEDTIME IF Medical NO RELIEF Branch ON DAY 3 TAKE 1 TAB. IN THE MORNING AND 2 TABS. AT BEDTIME, NO RELIEF DAY 4 TAKE 1 TAB. MORNING, 1 TAB. IN AFTERNOON AND 2 TABS. BEDTIME [facility] Yes [id number] TAKE 2 [facility] vers 10-10 mg 7-06 TABLETS BY ity o f per tablet 00:00: MOUTH AT [place] 00 BEDTIME IF Medical NO RELIEF Branch ON DAY 3 TAKE 1 TAB. IN THE MORNING AND 2 TABS. AT BEDTIME, NO RELIEF DAY 4 TAKE 1 TAB. MORNING, 1 TAB. IN AFTERNOON AND 2 TABS. BEDTIME [facility] Yes [id number] TAKE 2 [facility] vers 10-10 mg 7-06 TABLETS BY ity o f per tablet 00:00: MOUTH AT [place] 00 BEDTIME IF Medical NO RELIEF Branch ON DAY 3 TAKE 1 TAB. IN THE MORNING AND 2 TABS. AT BEDTIME, NO RELIEF DAY 4 TAKE 1 TAB. MORNING, 1 TAB. IN AFTERNOON AND 2 TABS. BEDTIME [facility] Yes [id number] TAKE 2 [facility] vers 10-10 mg 7-06 TABLETS BY ity o f per tablet 00:00: MOUTH AT [place] 00 BEDTIME IF Medical NO RELIEF Branch ON DAY 3 TAKE 1 TAB. IN THE MORNING AND 2 TABS. AT BEDTIME, NO RELIEF DAY 4 TAKE 1 TAB. MORNING, 1 TAB. IN AFTERNOON AND 2 TABS. BEDTIME [facility] Yes [id number] TAKE 2 [facility] vers 10-10 mg 7-06 TABLETS BY ity o f per tablet 00:00: MOUTH AT [place] 00 BEDTIME IF Medical NO RELIEF Branch ON DAY 3 TAKE 1 TAB. IN THE MORNING AND 2 TABS. AT BEDTIME, NO RELIEF DAY 4 TAKE 1 TAB. MORNING, 1 TAB. IN AFTERNOON AND 2 TABS. BEDTIME [facility] Yes [id number] TAKE 2 [facility] vers 10-10 mg 7-06 TABLETS BY ity o f per tablet 00:00: MOUTH AT [place] 00 BEDTIME IF Medical NO RELIEF Branch ON DAY 3 TAKE 1 TAB. IN THE MORNING AND 2 TABS. AT BEDTIME, NO RELIEF DAY 4 TAKE 1 TAB. MORNING, 1 TAB. IN AFTERNOON AND 2 TABS. BEDTIME [facility] Yes [id number] TAKE 2 [facility] vers 10-10 mg 7-06 TABLETS BY ity o f per tablet 00:00: MOUTH AT [place] 00 BEDTIME IF Medical NO RELIEF Branch ON DAY 3 TAKE 1 TAB. IN THE MORNING AND 2 TABS. AT BEDTIME, NO RELIEF DAY 4 TAKE 1 TAB. MORNING, 1 TAB. IN AFTERNOON AND 2 TABS. BEDTIME [facility] 2022-0 Yes [id number] TAKE 2 [facility] vers 10-10 mg 7-06 TABLETS BY ity o f per tablet 00:00: MOUTH AT [place] 00 BEDTIME IF Medical NO RELIEF Branch ON DAY 3 TAKE 1 TAB. IN THE MORNING AND 2 TABS. AT BEDTIME, NO RELIEF DAY 4 TAKE 1 TAB. MORNING, 1 TAB. IN AFTERNOON AND 2 TABS. BEDTIME [facility] 2022-0 Yes [id number] TAKE 2 [facility] vers 10-10 mg 7-06 TABLETS BY ity o f per tablet 00:00: MOUTH AT [place] 00 BEDTIME IF Medical NO RELIEF Branch ON DAY 3 TAKE 1 TAB. IN THE MORNING AND 2 TABS. AT BEDTIME, NO RELIEF DAY 4 TAKE 1 TAB. MORNING, 1 TAB. IN AFTERNOON AND 2 TABS. BEDTIME [facility] 2022-0 Yes [id number] TAKE 2 [facility] vers 10-10 mg 7-06 TABLETS BY ity o f per tablet 00:00: MOUTH AT [place] 00 BEDTIME IF Medical NO RELIEF Branch ON DAY 3 TAKE 1 TAB. IN THE MORNING AND 2 TABS. AT BEDTIME, NO RELIEF DAY 4 TAKE 1 TAB. MORNING, 1 TAB. IN AFTERNOON AND 2 TABS. BEDTIME [facility] 2022-0 Yes [id number] TAKE 2 [facility] vers 10-10 mg 7-06 TABLETS BY ity o f per tablet 00:00: MOUTH AT [place] 00 BEDTIME IF Medical NO RELIEF Branch ON DAY 3 TAKE 1 TAB. IN THE MORNING AND 2 TABS. AT BEDTIME, NO RELIEF DAY 4 TAKE 1 TAB. MORNING, 1 TAB. IN AFTERNOON AND 2 TABS. BEDTIME [facility] 2022-0 Yes [id number] TAKE 2 [facility] vers 10-10 mg 7-06 TABLETS BY ity o f per tablet 00:00: MOUTH AT [place] 00 BEDTIME IF Medical NO RELIEF Branch ON DAY 3 TAKE 1 TAB. IN THE MORNING AND 2 TABS. AT BEDTIME, NO RELIEF DAY 4 TAKE 1 TAB. MORNING, 1 TAB. IN AFTERNOON AND 2 TABS. BEDTIME [place] Yes [id number] TAKE 2 [facility] vers 10-10 mg 7-06 TABLETS BY ity o f per tablet 00:00: MOUTH AT [place] 00 BEDTIME IF Medical NO RELIEF Branch ON DAY 3 TAKE 1 TAB. IN THE MORNING AND 2 TABS. AT BEDTIME, NO RELIEF DAY 4 TAKE 1 TAB. MORNING, 1 TAB. IN AFTERNOON AND 2 TABS. BEDTIME [place] Yes [id number] TAKE 2 [facility] vers 10-10 mg 7-06 TABLETS BY ity o f per tablet 00:00: MOUTH AT [place] 00 BEDTIME IF Medical NO RELIEF Branch ON DAY 3 TAKE 1 TAB. IN THE MORNING AND 2 TABS. AT BEDTIME, NO RELIEF DAY 4 TAKE 1 TAB. MORNING, 1 TAB. IN AFTERNOON AND 2 TABS. BEDTIME [place] Yes [id number] TAKE 2 [facility] vers 10-10 mg 7-06 TABLETS BY ity o f per tablet 00:00: MOUTH AT [place] 00 BEDTIME IF Medical NO RELIEF Branch ON DAY 3 TAKE 1 TAB. IN THE MORNING AND 2 TABS. AT BEDTIME, NO RELIEF DAY 4 TAKE 1 TAB. MORNING, 1 TAB. IN AFTERNOON AND 2 TABS. BEDTIME [facility] Yes [id number] TAKE 2 [facility] vers 10-10 mg 7-06 TABLETS BY ity o f per tablet 00:00: MOUTH AT [place] 00 BEDTIME IF Medical NO RELIEF Branch ON DAY 3 TAKE 1 TAB. IN THE MORNING AND 2 TABS. AT BEDTIME, NO RELIEF DAY 4 TAKE 1 TAB. MORNING, 1 TAB. IN AFTERNOON AND 2 TABS. BEDTIME [place] Yes [id number] TAKE 2 [facility] vers 10-10 mg 7-06 TABLETS BY ity o f per tablet 00:00: MOUTH AT [place] 00 BEDTIME IF Medical NO RELIEF Branch ON DAY 3 TAKE 1 TAB. IN THE MORNING AND 2 TABS. AT BEDTIME, NO RELIEF DAY 4 TAKE 1 TAB. MORNING, 1 TAB. IN AFTERNOON AND 2 TABS. BEDTIME [facility] Yes [id number] TAKE 2 [facility] vers 10-10 mg 7-06 TABLETS BY ity o f per tablet 00:00: MOUTH AT [place] 00 BEDTIME IF Medical NO RELIEF Branch ON DAY 3 TAKE 1 TAB. IN THE MORNING AND 2 TABS. AT BEDTIME, NO RELIEF DAY 4 TAKE 1 TAB. MORNING, 1 TAB. IN AFTERNOON AND 2 TABS. BEDTIME [place] Yes [id number] TAKE 2 [facility] vers 10-10 mg 7-06 TABLETS BY ity o f per tablet 00:00: MOUTH AT [place] 00 BEDTIME IF Medical NO RELIEF Branch ON DAY 3 TAKE 1 TAB. IN THE MORNING AND 2 TABS. AT BEDTIME, NO RELIEF DAY 4 TAKE 1 TAB. MORNING, 1 TAB. IN AFTERNOON AND 2 TABS. BEDTIME [place] Yes [id number] TAKE 2 [facility] vers 10-10 mg 7-06 TABLETS BY ity o f per tablet 00:00: MOUTH AT [place] 00 BEDTIME IF Medical NO RELIEF Branch ON DAY 3 TAKE 1 TAB. IN THE MORNING AND 2 TABS. AT BEDTIME, NO RELIEF DAY 4 TAKE 1 TAB. MORNING, 1 TAB. IN AFTERNOON AND 2 TABS. BEDTIME [place] Yes [id number] TAKE 2 [facility] vers 10-10 mg 7-06 TABLETS BY ity o f per tablet 00:00: MOUTH AT [place] 00 BEDTIME IF Medical NO RELIEF Branch ON DAY 3 TAKE 1 TAB. IN THE MORNING AND 2 TABS. AT BEDTIME, NO RELIEF DAY 4 TAKE 1 TAB. MORNING, 1 TAB. IN AFTERNOON AND 2 TABS. BEDTIME [place] Yes [id number] TAKE 2 [facility] vers 10-10 mg 7-06 TABLETS BY ity o f per tablet 00:00: MOUTH AT [place] 00 BEDTIME IF Medical NO RELIEF Branch ON DAY 3 TAKE 1 TAB. IN THE MORNING AND 2 TABS. AT BEDTIME, NO RELIEF DAY 4 TAKE 1 TAB. MORNING, 1 TAB. IN AFTERNOON AND 2 TABS. BEDTIME [facility] Yes [id number] TAKE 2 [facility] vers 10-10 mg 7-06 TABLETS BY ity o f per tablet 00:00: MOUTH AT [place] 00 BEDTIME IF Medical NO RELIEF Branch ON DAY 3 TAKE 1 TAB. IN THE MORNING AND 2 TABS. AT BEDTIME, NO RELIEF DAY 4 TAKE 1 TAB. MORNING, 1 TAB. IN AFTERNOON AND 2 TABS. BEDTIME [place] Yes [id number] TAKE 2 [facility] vers 10-10 mg 7-06 TABLETS BY ity o f per tablet 00:00: MOUTH AT [place] 00 BEDTIME IF Medical NO RELIEF Branch ON DAY 3 TAKE 1 TAB. IN THE MORNING AND 2 TABS. AT BEDTIME, NO RELIEF DAY 4 TAKE 1 TAB. MORNING, 1 TAB. IN AFTERNOON AND 2 TABS. BEDTIME [place] 2022-0 Yes [id number] TAKE 2 [facility] vers 10-10 mg 7-06 TABLETS BY ity o f per tablet 00:00: MOUTH AT [place] 00 BEDTIME IF Medical NO RELIEF Branch ON DAY 3 TAKE 1 TAB. IN THE MORNING AND 2 TABS. AT BEDTIME, NO RELIEF DAY 4 TAKE 1 TAB. MORNING, 1 TAB. IN AFTERNOON AND 2 TABS. BEDTIME [place] 2022-0 Yes [id number] TAKE 2 [facility] vers 10-10 mg 7-06 TABLETS BY ity o f per tablet 00:00: MOUTH AT [place] 00 BEDTIME IF Medical NO RELIEF Branch ON DAY 3 TAKE 1 TAB. IN THE MORNING AND 2 TABS. AT BEDTIME, NO RELIEF DAY 4 TAKE 1 TAB. MORNING, 1 TAB. IN AFTERNOON AND 2 TABS. BEDTIME [place] Yes [id number] TAKE 2 [facility] vers 10-10 mg 7-06 TABLETS BY ity o f per tablet 00:00: MOUTH AT [place] 00 BEDTIME IF Medical NO RELIEF Branch ON DAY 3 TAKE 1 TAB. IN THE MORNING AND 2 TABS. AT BEDTIME, NO RELIEF DAY 4 TAKE 1 TAB. MORNING, 1 TAB. IN AFTERNOON AND 2 TABS. BEDTIME [place] 0 Yes [id number] TAKE 2 [facility] vers 10-10 mg 7-06 TABLETS BY ity o f per tablet 00:00: MOUTH AT [place] 00 BEDTIME IF Medical NO RELIEF Branch ON DAY 3 TAKE 1 TAB. IN THE MORNING AND 2 TABS. AT BEDTIME, NO RELIEF DAY 4 TAKE 1 TAB. MORNING, 1 TAB. IN AFTERNOON AND 2 TABS. BEDTIME [place] 2022-0 Yes [id number] TAKE 2 [facility] vers 10-10 mg 7-06 TABLETS BY ity o f per tablet 00:00: MOUTH AT [place] 00 BEDTIME IF Medical NO RELIEF Branch ON DAY 3 TAKE 1 TAB. IN THE MORNING AND 2 TABS. AT BEDTIME, NO RELIEF DAY 4 TAKE 1 TAB. MORNING, 1 TAB. IN AFTERNOON AND 2 TABS. BEDTIME [facility] 2022-0 Yes [id number] TAKE 2 [facility] vers 10-10 mg 7-06 TABLETS BY ity o f per tablet 00:00: MOUTH AT [place] 00 BEDTIME IF Medical NO RELIEF Branch ON DAY 3 TAKE 1 TAB. IN THE MORNING AND 2 TABS. AT BEDTIME, NO RELIEF DAY 4 TAKE 1 TAB. MORNING, 1 TAB. IN AFTERNOON AND 2 TABS. BEDTIME [facility] 0 Yes [id number] TAKE 2 [facility] vers 10-10 mg 7-06 TABLETS BY ity o f per tablet 00:00: MOUTH AT [place] 00 BEDTIME IF Medical NO RELIEF Branch ON DAY 3 TAKE 1 TAB. IN THE MORNING AND 2 TABS. AT BEDTIME, NO RELIEF DAY 4 TAKE 1 TAB. MORNING, 1 TAB. IN AFTERNOON AND 2 TABS. BEDTIME [place] Yes [id number] TAKE 2 [facility] vers 10-10 mg 7-06 TABLETS BY ity o f per tablet 00:00: MOUTH AT [place] 00 BEDTIME IF Medical NO RELIEF Branch ON DAY 3 TAKE 1 TAB. IN THE MORNING AND 2 TABS. AT BEDTIME, NO RELIEF DAY 4 TAKE 1 TAB. MORNING, 1 TAB. IN AFTERNOON AND 2 TABS. BEDTIME [facility] Yes [id number] TAKE 2 [facility] vers 10-10 mg 7-06 TABLETS BY ity o f per tablet 00:00: MOUTH AT [place] 00 BEDTIME IF Medical NO RELIEF Branch ON DAY 3 TAKE 1 TAB. IN THE MORNING AND 2 TABS. AT BEDTIME, NO RELIEF DAY 4 TAKE 1 TAB. MORNING, 1 TAB. IN AFTERNOON AND 2 TABS. BEDTIME [facility] 0 Yes [id number] TAKE 2 [facility] vers 10-10 mg 7-06 TABLETS BY ity o f per tablet 00:00: MOUTH AT [place] 00 BEDTIME IF Medical NO RELIEF Branch ON DAY 3 TAKE 1 TAB. IN THE MORNING AND 2 TABS. AT BEDTIME, NO RELIEF DAY 4 TAKE 1 TAB. MORNING, 1 TAB. IN AFTERNOON AND 2 TABS. BEDTIME [facility] 0 Yes [id number] TAKE 2 [facility] vers 10-10 mg 7-06 TABLETS BY ity o f per tablet 00:00: MOUTH AT [place] 00 BEDTIME IF Medical NO RELIEF Branch ON DAY 3 TAKE 1 TAB. IN THE MORNING AND 2 TABS. AT BEDTIME, NO RELIEF DAY 4 TAKE 1 TAB. MORNING, 1 TAB. IN AFTERNOON AND 2 TABS. BEDTIME [facility] Yes [id number] TAKE 2 [facility] vers 10-10 mg 7-06 TABLETS BY ity o f per tablet 00:00: MOUTH AT [place] [facility] 00 BEDTIME IF Medical NO RELIEF Branch ON DAY 3 TAKE 1 TAB. IN THE MORNING AND 2 TABS. AT BEDTIME, NO RELIEF DAY 4 TAKE 1 TAB. MORNING, 1 TAB. IN AFTERNOON AND 2 TABS. BEDTIME [facility]NIDAZO 2022- No [id number] 500mg Take 1 [facility] LE 500 mg 6-05 06-13 tablet by ity of tablet 00:00: 04:59 mouth in [place] 00 :00 the Medical morning Branch and 1 tablet in the evening. Do all this for 7 days. enoxaparin 2022- No [id number] 40mg inject 0.4 [facility] (LOVENOX) 4-17 10-15 mL under ity o f 40 mg/0.4 00:00: 04:59 the skin [place] mL 00 :00 in the Medical injection morning Branch for 180 days. enoxaparin 2022- No [id number] 40mg inject 0.4 [facility] (LOVENOX) 4-17 10-15 mL under ity o f 40 mg/0.4 00:00: 04:59 the skin [place] mL 00 :00 in the Medical injection morning Branch for 180 days. enoxaparin 2022- No [id number] 40mg inject 0.4 [facility] (LOVENOX) 4-17 10-15 mL under ity o f 40 mg/0.4 00:00: 04:59 the skin [place] mL 00 :00 in the Medical injection morning Branch for 180 days. enoxaparin 2022- No [id number] 40mg inject 0.4 [facility] (LOVENOX) 4-17 10-15 mL under ity o f 40 mg/0.4 00:00: 04:59 the skin [place] mL 00 :00 in the Medical injection morning Branch for 180 days. enoxaparin 2022- No [id number] 40mg inject 0.4 [facility] (LOVENOX) 4-17 10-15 mL under ity o f 40 mg/0.4 00:00: 04:59 the skin [place] mL 00 :00 in the Medical injection morning Branch for 180 days. enoxaparin 2022-2022- No [id number] 40mg inject 0.4 [facility] (LOVENOX) 4-17 10-15 mL under ity o f 40 mg/0.4 00:00: 04:59 the skin [place] mL 00 :00 in the Medical injection morning Branch for 180 days. enoxaparin 2022-2022- No [id number] 40mg inject 0.4 [facility] (LOVENOX) 4-17 10-15 mL under ity o f 40 mg/0.4 00:00: 04:59 the skin [place]il as mL 00 :00 in the Medical injection morning Branch for 180 days. enoxaparin 2022-2022- No [id number] 40mg inject 0.4 [facility] (LOVENOX) 4-17 10-15 mL under ity o f 40 mg/0.4 00:00: 04:59 the skin Anil as mL 00 :00 in the Medical injection morning Branch for 180 days. enoxaparin 2022-2022- No [id number] 40mg inject 0.4 [facility] (LOVENOX) 4-17 10-15 mL under ity o f 40 mg/0.4 00:00: 04:59 the skin Anil as mL 00 :00 in the Medical injection morning Branch for 180 days. enoxaparin 2022-2022- No [id number] 40mg inject 0.4 [facility] (LOVENOX) 4-17 10-15 mL under ity o f 40 mg/0.4 00:00: 04:59 the skin Anil as mL 00 :00 in the Medical injection morning Branch for 180 days. enoxaparin 2022-2022- No [id number] 40mg inject 0.4 [facility] (LOVENOX) 4-17 10-15 mL under ity o f 40 mg/0.4 00:00: 04:59 the skin An[place] as mL 00 :00 in the Medical injection morning Branch for 180 days. enoxaparin 2022-2022- No [id number] 40mg inject 0.4 [facility] (LOVENOX) 4-17 10-15 mL under ity o f 40 mg/0.4 00:00: 04:59 the skin [place] as mL 00 :00 in the Medical injection morning Branch for 180 days. enoxaparin 2022-2022- No [id number] 40mg inject 0.4 [facility] (LOVENOX) 4-17 10-15 mL under ity o f 40 mg/0.4 00:00: 04:59 the skin [place] as mL 00 :00 in the Medical injection morning Branch for 180 days. enoxaparin 2022-2022- No [id number] 40mg inject 0.4 [facility] (LOVENOX) 4-17 10-15 mL under ity o f 40 mg/0.4 00:00: 04:59 the skin [place] as mL 00 :00 in the Medical injection morning Branch for 180 days. enoxaparin 2022-0 2022- No [id number] 40mg inject 0.4 [facility] (LOVENOX) 4-17 10-15 mL under ity o f 40 mg/0.4 00:00: 04:59 the skin [place] as mL 00 :00 in the Medical injection morning Branch for 180 days. enoxaparin 2022-2022- No [id number] 40mg inject 0.4 [facility] (LOVENOX) 4-17 10-15 mL under ity o f 40 mg/0.4 00:00: 04:59 the skin [place] as mL 00 :00 in the Medical injection morning Branch for 180 days. enoxaparin 2022-2022- No [id number] 40mg inject 0.4 [facility] (LOVENOX) 4-17 10-15 mL under ity o f 40 mg/0.4 00:00: 04:59 the skin [place] as mL 00 :00 in the Medical injection morning Branch for 180 days. enoxaparin 2022-2022- No [id number] 40mg inject 0.4 [facility] (LOVENOX) 4-17 10-15 mL under ity o f 40 mg/0.4 00:00: 04:59 the skin [place] as mL 00 :00 in the Medical injection morning Branch for 180 days. enoxaparin 2022-2022- No [id number] 40mg inject 0.4 [facility] (LOVENOX) 4-17 10-15 mL under ity o f 40 mg/0.4 00:00: 04:59 the skin [place] as mL 00 :00 in the Medical injection morning Branch for 180 days. enoxaparin 2022- No [id number] 40mg inject 0.4 [facility] (LOVENOX) 4-17 10-15 mL under ity o f 40 mg/0.4 00:00: 04:59 the skin [place] as mL 00 :00 in the Medical injection morning Branch for 180 days. enoxaparin 2022- No [id number] 40mg inject 0.4 [facility] (LOVENOX) 4-17 10-15 mL under ity o f 40 mg/0.4 00:00: 04:59 the skin [place] as mL 00 :00 in the Medical injection morning Branch for 180 days. enoxaparin 2022- No [id number] 40mg inject 0.4 [facility] (LOVENOX) 4-17 10-15 mL under ity o f 40 mg/0.4 00:00: 04:59 the skin [place] as mL 00 :00 in the Medical injection morning Branch for 180 days. enoxaparin 2022- No [id number] 40mg inject 0.4 [facility] (LOVENOX) 4-17 10-15 mL under ity o f 40 mg/0.4 00:00: 04:59 the skin [place] as mL 00 :00 in the Medical injection morning Branch for 180 days. enoxaparin 2022- No [id number] 40mg inject 0.4 [facility] (LOVENOX) 4-17 10-15 mL under ity o f 40 mg/0.4 00:00: 04:59 the skin [place] as mL 00 :00 in the Medical injection morning Branch for 180 days. enoxaparin 2022- No [id number] 40mg inject 0.4 [facility] (LOVENOX) 4-17 10-15 mL under ity o f 40 mg/0.4 00:00: 04:59 the skin [place] as mL 00 :00 in the Medical injection morning Branch for 180 days. enoxaparin 2022- No [id number] 40mg inject 0.4 [facility] (LOVENOX) 4-17 10-15 mL under ity o f 40 mg/0.4 00:00: 04:59 the skin [place] as mL 00 :00 in the Medical injection morning Branch for 180 days. enoxaparin 2022- No [id number] 40mg inject 0.4 [facility] (LOVENOX) 4-17 10-15 mL under ity o f 40 mg/0.4 00:00: 04:59 the skin [place] as mL 00 :00 in the Medical injection morning Branch for 180 days. enoxaparin 2022- No [id number] 40mg inject 0.4 [facility] (LOVENOX) 4-17 10-15 mL under ity o f 40 mg/0.4 00:00: 04:59 the skin [place] as mL 00 :00 in the Medical injection morning Branch for 180 days. enoxaparin 2022- No [id number] 40mg inject 0.4 [facility] (LOVENOX) 4-17 10-15 mL under ity o f 40 mg/0.4 00:00: 04:59 the skin [place] as mL 00 :00 in the Medical injection morning Branch for 180 days. enoxaparin 2022- No [id number] 40mg inject 0.4 [facility] (LOVENOX) 4-17 10-15 mL under ity o f 40 mg/0.4 00:00: 04:59 the skin [place] as mL 00 :00 in the Medical injection morning Branch for 180 days. enoxaparin 2022- No [id number] 40mg inject 0.4 [facility] (LOVENOX) 4-17 10-15 mL under ity o f 40 mg/0.4 00:00: 04:59 the skin [place] as mL 00 :00 in the Medical injection morning Branch for 180 days. enoxaparin 2022- No [id number] 40mg inject 0.4 [facility] (LOVENOX) 4-17 10-15 mL under ity o f 40 mg/0.4 00:00: 04:59 the skin [place] as mL 00 :00 in the Medical injection morning Branch for 180 days. enoxaparin 2022- No [id number] 40mg inject 0.4 [facility] (LOVENOX) 4-17 10-15 mL under ity o f 40 mg/0.4 00:00: 04:59 the skin [place] as mL 00 :00 in the Medical injection morning Branch for 180 days. enoxaparin 2022- No [id number] 40mg inject 0.4 [facility] (LOVENOX) 4-17 10-15 mL under ity o f 40 mg/0.4 00:00: 04:59 the skin [place] as mL 00 :00 in the Medical injection morning Branch for 180 days. enoxaparin 2022-2022- No [id number] 40mg inject 0.4 [facility] (LOVENOX) 4-17 10-15 mL under ity o f 40 mg/0.4 00:00: 04:59 the skin [place] as mL 00 :00 in the Medical injection morning Branch for 180 days. enoxaparin 2022-2022- No [id number] 40mg inject 0.4 [facility] (LOVENOX) 4-17 10-15 mL under ity o f 40 mg/0.4 00:00: 04:59 the skin [place] as mL 00 :00 in the Medical injection morning Branch for 180 days. enoxaparin 2022-2022- No [id number] 40mg inject 0.4 [facility] (LOVENOX) 4-17 10-15 mL under ity o f 40 mg/0.4 00:00: 04:59 the skin [place] as mL 00 :00 in the Medical injection morning Branch for 180 days. enoxaparin 2022-2022- No [id number] 40mg inject 0.4 [facility] (LOVENOX) 4-17 10-15 mL under ity o f 40 mg/0.4 00:00: 04:59 the skin [place] as mL 00 :00 in the Medical injection morning Branch for 180 days. enoxaparin 2022- No [id number] 40mg inject 0.4 [facility] (LOVENOX) 4-17 10-15 mL under ity o f 40 mg/0.4 00:00: 04:59 the skin [place] as mL 00 :00 in the Medical injection morning Branch for 180 days. enoxaparin 2022-2022- No [id number] 40mg inject 0.4 [facility] (LOVENOX) 4-17 10-15 mL under ity o f 40 mg/0.4 00:00: 04:59 the skin [place] as mL 00 :00 in the Medical injection morning Branch for 180 days. enoxaparin 2022-2022- No [id number] 40mg inject 0.4 [facility] (LOVENOX) 4-17 10-15 mL under ity o f 40 mg/0.4 00:00: 04:59 the skin [place] as mL 00 :00 in the Medical injection morning Branch for 180 days. enoxaparin 2022- No [id number] 40mg inject 0.4 [facility] (LOVENOX) 4-17 10-15 mL under ity o f 40 mg/0.4 00:00: 04:59 the skin [place] as mL 00 :00 in the Medical injection morning Branch for 180 days. enoxaparin 2022- No [id number] 40mg inject 0.4 [facility] (LOVENOX) 4-17 10-15 mL under ity o f 40 mg/0.4 00:00: 04:59 the skin [place] as mL 00 :00 in the Medical injection morning Branch for 180 days. enoxaparin 2022- No [id number] 40mg inject 0.4 [facility] (LOVENOX) 4-17 10-15 mL under ity o f 40 mg/0.4 00:00: 04:59 the skin [place] as mL 00 :00 in the Medical injection morning Branch for 180 days. No Take by Unive rs vit 4-14 04-14 mouth. ity of no.124/iron 15:09: 00:00 [place] /folic 24 :00 Medical ( Branch VITAMIN ORAL) doxylamine- Yes [id number] 2{tbl} Take 2 [facility] pyridoxine, 4-14 tablets by it y of vit B6, 00:00: mouth at [facility] 00 bedtime. Medic al 10-10 mg Branch per tablet doxylamine- Yes [id number] 2{tbl} Take 2 [facility] pyridoxine, 4-14 tablets by it y of vit B6, 00:00: mouth at [place] ([facility]) 00 bedtime. Medic al 10-10 mg Branch per tablet doxylamine- Yes [id number] 2{tbl} Take 2 [facility] pyridoxine, 4-14 tablets by it y of vit B6, 00:00: mouth at [facility]) 00 bedtime. Medic al 10-10 mg Branch per tablet Yes [id number] 1{tbl} Take 1 U nivers vitamin 4-14 tablet by ity of w/FA tablet 00:00: mouth in [place] 00 the Medical morning. Branch doxylamine- Yes [id number] 2{tbl} Take 2 [facility] pyridoxine, 4-14 tablets by it y of vit B6, 00:00: mouth at [facility] 00 bedtime. Medic al 10-10 mg Branch per tablet Yes [id number] 1{tbl} Take 1 U nivers vitamin 4-14 tablet by ity of w/FA tablet 00:00: mouth in [place] 00 the Medical morning. Branch doxylamine- Yes [id number] 2{tbl} Take 2 [facility] pyridoxine, 4-14 tablets by it y of vit B6, 00:00: mouth at [facility] 00 bedtime. Medic al 10-10 mg Branch per tablet Yes [id number] 1{tbl} Take 1 U nivers vitamin 4-14 tablet by ity of w/FA tablet 00:00: mouth in [place] 00 the Medical morning. Branch doxylamine- Yes [id number] 2{tbl} Take 2 [facility] pyridoxine, 4-14 tablets by it y of vit B6, 00:00: mouth at [facility] 00 bedtime. Medic al 10-10 mg Branch per tablet Yes [id number] 1{tbl} Take 1 U nivers vitamin 4-14 tablet by ity of w/FA tablet 00:00: mouth in [place] 00 the Medical morning. Branch doxylamine- Yes [id number] 2{tbl} Take 2 [facility] pyridoxine, 4-14 tablets by it y of vit B6, 00:00: mouth at [place] ([facility]) 00 bedtime. Medic al 10-10 mg Branch per tablet Yes [id number] 1{tbl} Take 1 U nivers vitamin 4-14 tablet by ity of w/FA tablet 00:00: mouth in [place] 00 the Medical morning. Branch doxylamine- Yes [id number] 2{tbl} Take 2 [facility] pyridoxine, 4-14 tablets by it y of vit B6, 00:00: mouth at [facility]) 00 bedtime. Medic al 10-10 mg Branch per tablet Yes [id number] 1{tbl} Take 1 U nivers vitamin 4-14 tablet by ity of w/FA tablet 00:00: mouth in [place] 00 the Medical morning. Branch doxylamine- Yes [id number] 2{tbl} Take 2 [facility] pyridoxine, 4-14 tablets by it y of vit B6, 00:00: mouth at [place] ([facility]) 00 bedtime. Medic al 10-10 mg Branch per tablet Yes [id number] 1{tbl} Take 1 U nivers vitamin 4-14 tablet by ity of w/FA tablet 00:00: mouth in [place] 00 the Medical morning. Branch doxylamine- Yes [id number] 2{tbl} Take 2 [facility] pyridoxine, 4-14 tablets by it y of vit B6, 00:00: mouth at [place] ([facility]) 00 bedtime. Medic al 10-10 mg Branch per tablet Yes [id number] 1{tbl} Take 1 U nivers vitamin 4-14 tablet by ity of w/FA tablet 00:00: mouth in [place] 00 the Medical morning. Branch doxylamine- Yes [id number] 2{tbl} Take 2 [facility] pyridoxine, 4-14 tablets by it y of vit B6, 00:00: mouth at [place] ([facility]) 00 bedtime. Medic al 10-10 mg Branch per tablet Yes [id number] 1{tbl} Take 1 U nivers vitamin 4-14 tablet by ity of w/FA tablet 00:00: mouth in [place] 00 the Medical morning. Branch doxylamine- Yes [id number] 2{tbl} Take 2 [facility] pyridoxine, 4-14 tablets by it y of vit B6, 00:00: mouth at [place] ([facility] 00 bedtime. Medic al 10-10 mg Branch per tablet Yes [id number] 1{tbl} Take 1 U nivers vitamin 4-14 tablet by ity of w/FA tablet 00:00: mouth in [place] 00 the Medical morning. Branch doxylamine- Yes [id number] 2{tbl} Take 2 [facility] pyridoxine, 4-14 tablets by it y of vit B6, 00:00: mouth at [place] ([facility] 00 bedtime. Medic al 10-10 mg Branch per tablet Yes [id number] 1{tbl} Take 1 U nivers vitamin 4-14 tablet by ity of w/FA tablet 00:00: mouth in [place] 00 the Medical morning. [facility] Yes [id number] 1{tbl} Take 1 U nivers vitamin 4-14 tablet by ity of w/FA tablet 00:00: mouth in [place] 00 the Medical morning. [facility] Yes [id number] 1{tbl} Take 1 U nivers vitamin 4-14 tablet by ity of w/FA tablet 00:00: mouth in [place] 00 the Medical morning. [facility] Yes [id number] 1{tbl} Take 1 U nivers vitamin 4-14 tablet by ity of w/FA tablet 00:00: mouth in [place] 00 the Medical morning. [facility] Yes [id number] 1{tbl} Take 1 U nivers vitamin 4-14 tablet by ity of w/FA tablet 00:00: mouth in [place] 00 the Medical morning. [facility] Yes [id number] 1{tbl} Take 1 U nivers vitamin 4-14 tablet by ity of w/FA tablet 00:00: mouth in [place] 00 the Medical morning. [facility] Yes [id number] 1{tbl} Take 1 U nivers vitamin 4-14 tablet by ity of w/FA tablet 00:00: mouth in [place] 00 the Medical morning. [facility] Yes [id number] 1{tbl} Take 1 U nivers vitamin 4-14 tablet by ity of w/FA tablet 00:00: mouth in [place] 00 the Medical morning. [facility] Yes [id number] 1{tbl} Take 1 U nivers vitamin 4-14 tablet by ity of w/FA tablet 00:00: mouth in [place] 00 the Medical morning. [facility] Yes [id number] 1{tbl} Take 1 U nivers vitamin 4-14 tablet by ity of w/FA tablet 00:00: mouth in [place] 00 the Medical morning. Branch [facility] Yes [id number] 1{tbl} Take 1 U nivers vitamin 4-14 tablet by ity of w/FA tablet 00:00: mouth in [place] 00 the Medical morning. Branch [facility] Yes [id number] 1{tbl} Take 1 U nivers vitamin 4-14 tablet by ity of w/FA tablet 00:00: mouth in [place] 00 the Medical morning. Branch [facility] Yes [id number] 1{tbl} Take 1 U nivers vitamin 4-14 tablet by ity of w/FA tablet 00:00: mouth in [place] 00 the Medical morning. [facility] Yes [id number] 1{tbl} Take 1 U nivers vitamin 4-14 tablet by ity of w/FA tablet 00:00: mouth in [place] 00 the Medical morning. [facility] Yes [id number] 1{tbl} Take 1 U nivers vitamin 4-14 tablet by ity of w/FA tablet 00:00: mouth in [place] 00 the Medical morning. [facility] Yes [id number] 1{tbl} Take 1 U nivers vitamin 4-14 tablet by ity of w/FA tablet 00:00: mouth in [place] 00 the Medical morning. [facility] Yes [id number] 1{tbl} Take 1 U nivers vitamin 4-14 tablet by ity of w/FA tablet 00:00: mouth in [place] 00 the Medical morning. [facility] Yes [id number] 1{tbl} Take 1 U nivers vitamin 4-14 tablet by ity of w/FA tablet 00:00: mouth in [place] 00 the Medical morning. [facility] Yes [id number] 1{tbl} Take 1 U nivers vitamin 4-14 tablet by ity of w/FA tablet 00:00: mouth in [place] 00 the Medical morning. [facility] Yes [id number] 1{tbl} Take 1 U nivers vitamin 4-14 tablet by ity of w/FA tablet 00:00: mouth in [place] 00 the Medical morning. [facility] Yes [id number] 1{tbl} Take 1 U nivers vitamin 4-14 tablet by ity of w/FA tablet 00:00: mouth in [place] 00 the Medical morning. [facility] Yes [id number] 1{tbl} Take 1 U nivers vitamin 4-14 tablet by ity of w/FA tablet 00:00: mouth in [place] 00 the Medical morning. [facility] Yes [id number] 1{tbl} Take 1 U nivers vitamin 4-14 tablet by ity of w/FA tablet 00:00: mouth in [place] 00 the Medical morning. [facility] Yes [id number] 1{tbl} Take 1 U nivers vitamin 4-14 tablet by ity of w/FA tablet 00:00: mouth in [place] 00 the Medical morning. [facility] Yes [id number] 1{tbl} Take 1 U nivers vitamin 4-14 tablet by ity of w/FA tablet 00:00: mouth in [place] 00 the Medical morning. [facility] Yes [id number] 1{tbl} Take 1 U nivers vitamin 4-14 tablet by ity of w/FA tablet 00:00: mouth in [place] 00 the Medical morning. [facility] Yes [id number] 1{tbl} Take 1 U nivers vitamin 4-14 tablet by ity of w/FA tablet 00:00: mouth in [place] 00 the Medical morning. [facility] Yes [id number] 1{tbl} Take 1 U nivers vitamin 4-14 tablet by ity of w/FA tablet 00:00: mouth in [place] 00 the Medical morning. [facility] Yes [id number] 1{tbl} Take 1 U nivers vitamin 4-14 tablet by ity of w/FA tablet 00:00: mouth in [place] 00 the Medical morning. [facility] Yes [id number] 1{tbl} Take 1 U nivers vitamin 4-14 tablet by ity of w/FA tablet 00:00: mouth in [place] 00 the Medical morning. [facility] Yes [id number] 1{tbl} Take 1 U nivers vitamin 4-14 tablet by ity of w/FA tablet 00:00: mouth in [place] 00 the Medical morning. [facility] Yes [id number] 1{tbl} Take 1 U nivers vitamin 4-14 tablet by ity of w/FA tablet 00:00: mouth in [place] 00 the Medical morning. [facility] Yes [id number] 1{tbl} Take 1 U nivers vitamin 4-14 tablet by ity of w/FA tablet 00:00: mouth in [place] 00 the Medical morning. [facility] Yes [id number] 1{tbl} Take 1 U nivers vitamin 4-14 tablet by ity of w/FA tablet 00:00: mouth in [place] 00 the Medical morning. [facility] Yes [id number] 1{tbl} Take 1 U nivers vitamin 4-14 tablet by ity of w/FA tablet 00:00: mouth in [place] 00 the Medical morning. [facility] Yes [id number] 1{tbl} Take 1 U nivers vitamin 4-14 tablet by ity of w/FA tablet 00:00: mouth in [place] 00 the Medical morning. [facility] Yes [id number] 1{tbl} Take 1 U nivers vitamin 4-14 tablet by ity of w/FA tablet 00:00: mouth in [place] 00 the Medical morning. [facility] Yes [id number] 1{tbl} Take 1 U nivers vitamin 4-14 tablet by ity of w/FA tablet 00:00: mouth in [place] 00 the Medical morning. [facility] Yes [id number] 1{tbl} Take 1 U nivers vitamin 4-14 tablet by ity of w/FA tablet 00:00: mouth in [place] 00 the Medical morning. [facility] Yes [id number] 1{tbl} Take 1 U nivers vitamin 4-14 tablet by ity of w/FA tablet 00:00: mouth in [place] 00 the Medical morning. [facility] Yes [id number] 1{tbl} Take 1 U nivers vitamin 4-14 tablet by ity of w/FA tablet 00:00: mouth in [place] 00 the Medical morning. [facility] 2023-0 Yes [id number] 1{tbl} Take 1 U nivers vitamin 4-14 tablet by ity of w/FA tablet 00:00: mouth in [place] 00 the Medical morning. [facility] Yes [id number] 1{tbl} Take 1 U nivers vitamin 4-14 tablet by ity of w/FA tablet 00:00: mouth in [place] 00 the Medical morning. [facility] Yes [id number] 1{tbl} Take 1 U nivers vitamin 4-14 tablet by ity of w/FA tablet 00:00: mouth in [place] 00 the Medical morning. [facility] Yes [id number] 1{tbl} Take 1 U nivers vitamin 4-14 tablet by ity of w/FA tablet 00:00: mouth in [place] 00 the Medical morning. [facility] Yes [id number] 1{tbl} Take 1 U nivers vitamin 4-14 tablet by ity of w/FA tablet 00:00: mouth in [place] 00 the Medical morning. [facility] Yes [id number] 1{tbl} Take 1 U nivers vitamin 4-14 tablet by ity of w/FA tablet 00:00: mouth in [place] 00 the Medical morning. [facility] Yes [id number] 1{tbl} Take 1 U nivers vitamin 4-14 tablet by ity of w/FA tablet 00:00: mouth in [place] 00 the Medical morning. [facility] Yes [id number] 1{tbl} Take 1 U nivers vitamin 4-14 tablet by ity of w/FA tablet 00:00: mouth in [place] 00 the Medical morning. [facility] Yes [id number] 1{tbl} Take 1 U nivers vitamin 4-14 tablet by ity of w/FA tablet 00:00: mouth in [place] 00 the Medical morning. [facility] Yes [id number] 1{tbl} Take 1 U nivers vitamin 4-14 tablet by ity of w/FA tablet 00:00: mouth in [place] 00 the Medical morning. [facility] 0 Yes [id number] 1{tbl} Take 1 U nivers vitamin 4-14 tablet by ity of w/FA tablet 00:00: mouth in [place] 00 the Medical morning. Branch doxylamine- 2022-0 2023- No [id number] 2{tbl} Take 2 [facility] pyridoxine, 4-14 07-06 tablets by i ty of vit B6, 00:00: 00:00 mouth at [place] ([facility]) 00 :00 bedtime. Medic al 10-10 mg Branch per tablet proMETHazin 2022-0 Yes [id number] 25mg Take 1 [facility] e 25 mg 4-10 tablet by ity of tablet 00:00: mouth [place] 00 every 6 Medical (six) Branch hours as needed for Nausea and Vomiting (N/V). 2022-0 Yes [id number] 1{tbl} Take 1 [facility] nivers vitamin 4-10 tablet by ity of w/FA tablet 00:00: mouth in [place] 00 the Medical morning. Branch proMETHazin 0 Yes [id number] 25mg Take 1 [facility] e 25 mg 4-10 tablet by ity of tablet 00:00: mouth [place] 00 every 6 Medical (six) Branch hours as needed for Nausea and Vomiting (N/V). 2022-0 Yes [id number] 1{tbl} Take 1 U nivers vitamin 4-10 tablet by ity of w/FA tablet 00:00: mouth in [place] 00 the Medical morning. Branch proMETHazin 2022-0 Yes [id number] 25mg Take 1 [facility] e 25 mg 4-10 tablet by ity of tablet 00:00: mouth [place] 00 every 6 Medical (six) Branch hours as needed for Nausea and Vomiting (N/V). 2022-0 Yes [id number] 1{tbl} Take 1 U nivers vitamin 4-10 tablet by ity of w/FA tablet 00:00: mouth in [place] 00 the Medical morning. Branch proMETHazin 2022-0 Yes [id number] 25mg Take 1 [facility] e 25 mg 4-10 tablet by ity of tablet 00:00: mouth [place] 00 every 6 Medical (six) Branch hours as needed for Nausea and Vomiting (N/V). 2022-0 Yes [id number] 1{tbl} Take 1 U nivers vitamin 4-10 tablet by ity of w/FA tablet 00:00: mouth in [place] 00 the Medical morning. Branch proMETHazin 2022-0 Yes [id number] 25mg Take 1 [facility] e 25 mg 4-10 tablet by ity of tablet 00:00: mouth [place] 00 every 6 Medical (six) Branch hours as needed for Nausea and Vomiting (N/V). 2022-0 Yes [id number] 1{tbl} Take 1 U nivers vitamin 4-10 tablet by ity of w/FA tablet 00:00: mouth in [place] 00 the Medical morning. Branch proMETHazin 2022-0 Yes [id number] 25mg Take 1 [facility] e 25 mg 4-10 tablet by ity of tablet 00:00: mouth [place] 00 every 6 Medical (six) Branch hours as needed for Nausea and Vomiting (N/V). proMETHazin 2022-0 Yes [id number] 25mg Take 1 [facility] e 25 mg 4-10 tablet by ity of tablet 00:00: mouth [place] 00 every 6 Medical (six) Branch hours as needed for Nausea and Vomiting (N/V). proMETHazin 2022-0 Yes [id number] 25mg Take 1 [facility] e 25 mg 4-10 tablet by ity of tablet 00:00: mouth [place] 00 every 6 Medical (six) Branch hours as needed for Nausea and Vomiting (N/V). proMETHazin 2022-0 Yes [id number] 25mg Take 1 [facility] e 25 mg 4-10 tablet by ity of tablet 00:00: mouth [place] 00 every 6 Medical (six) Branch hours as needed for Nausea and Vomiting (N/V). proMETHazin 2022-0 Yes [id number] 25mg Take 1 [facility] e 25 mg 4-10 tablet by ity of tablet 00:00: mouth [place] 00 every 6 Medical (six) Branch hours as needed for Nausea and Vomiting (N/V). proMETHazin 2022-0 Yes [id number] 25mg Take 1 [facility] e 25 mg 4-10 tablet by ity of tablet 00:00: mouth [place] 00 every 6 Medical (six) Branch hours as needed for Nausea and Vomiting (N/V). proMETHazin 2022-0 Yes [id number] 25mg Take 1 [facility] e 25 mg 4-10 tablet by ity of tablet 00:00: mouth [place] 00 every 6 Medical (six) Branch hours as needed for Nausea and Vomiting (N/V). proMETHazin 2022-0 Yes [id number] 25mg Take 1 [facility] e 25 mg 4-10 tablet by ity of tablet 00:00: mouth [place] 00 every 6 Medical (six) Branch hours as needed for Nausea and Vomiting (N/V). proMETHazin 2022- No [id number] 25mg Take 1 [facility] e 25 mg 4-10 06-05 tablet by ity of tablet 00:00: 00:00 mouth [place] 00 :00 every 6 Medical (six) Branch hours as needed for Nausea and Vomiting (N/V). 2022- No [id number] 1{tbl} Take 1 [facility] vitamin 4-10 04-14 tablet by ity of w/FA tablet 00:00: 00:00 mouth in [place] 00 :00 the Medical morning. Branch miSOPROStoL 2021-04- No [id number] 800ug [facility] (CYTOTEC) 06-12 ity of tablet 800 22:30: 22:26 [place] mcg 00 :00 [facility] miSOPROStoL 2021-04- No [id number] 800ug 800 mcg, Univers (CYTOTEC) 06-12 Oral, ity of tablet 800 22:30: 22:26 ONCE, 1 [place] mcg 00 :00 dose, On [facility] 04/11/22 at 1630, Routine miSOPROStoL 2021-04- No [id number] 800ug [facility] (CYTOTEC) 06-12 ity of tablet 800 22:30: 22:26 [place] mcg 00 :00 Medical Dequin[place] miSOPROStoL 2021-04- No [id number] 800ug 800 mcg, Univers (CYTOTEC) 06-12 Oral, ity of tablet 800 22:30: 22:26 ONCE, 1 [place] mcg 00 :00 dose, On [facility] 04/11/22 at 1630, Routine NaCl 0.9% 2021-04- No 1000mL at 999 Uni vers (NS) bolus 05-25 mL/hr, ity of infusion 01:00: 00:55 1,000 mL, [place] 1,000 mL 00 :00 IV Medical Infusion, Branch ONCE, 1 dose, On [facility] 03/23/22 at 1900, STAT iopamidol 2021-04- No [id number] 65mL 65 mL, U nivers (ISOVUE 05-24 Intravenou ity o f 370-500 mL) 22:28: 22:29 s, ONCE, 1 [place] injection 00 :00 dose, On Medica l 65 mL [place] Branch 03/23/22 at 1645, Routine ondansetron 2021-04 Yes [id number] 8mg Take 1 [facility] 8 mg 1-20 tablet by ity of disintegrat 00:00: mouth [place] ing tablet 00 every 8 Medica l (eight) Branch hours as needed for Nausea and Vomiting (N/V). ondansetron 2021-04 Yes [id number] 8mg Take 1 [facility] 8 mg 1-20 tablet by ity of disintegrat 00:00: mouth [place] ing tablet 00 every 8 Medica l (eight) Branch hours as needed for Nausea and Vomiting (N/V). ondansetron 2021-04 Yes [id number] 8mg Take 1 [facility] 8 mg 1-20 tablet by ity of disintegrat 00:00: mouth [place] ing tablet 00 every 8 Medica l (eight) Branch hours as needed for Nausea and Vomiting (N/V). ondansetron 2021-04 Yes [id number] 8mg Take 1 [facility] 8 mg 1-20 tablet by ity of disintegrat 00:00: mouth [place] ing tablet 00 every 8 Medica l (eight) Branch hours as needed for Nausea and Vomiting (N/V). ondansetron 2021-04 Yes [id number] 8mg Take 1 [facility] 8 mg 1-20 tablet by ity of disintegrat 00:00: mouth [place] ing tablet 00 every 8 Medica l (eight) Branch hours as needed for Nausea and Vomiting (N/V). ondansetron 2021-04 Yes [id number] 8mg Take 1 [facility] 8 mg 1-20 tablet by ity of disintegrat 00:00: mouth [place] ing tablet 00 every 8 Medica l (eight) Branch hours as needed for Nausea and Vomiting (N/V). ondansetron 2021-04 Yes [id number] 8mg Take 1 [facility] 8 mg 1-20 tablet by ity of disintegrat 00:00: mouth [place] ing tablet 00 every 8 Medica l (eight) Branch hours as needed for Nausea and Vomiting (N/V). ondansetron 2021-04 Yes [id number] 8mg Take 1 [facility] 8 mg 1-20 tablet by ity of disintegrat 00:00: mouth [place] ing tablet 00 every 8 Medica l (eight) Branch hours as needed for Nausea and Vomiting (N/V). ondansetron 2021-04 Yes [id number] 8mg Take 1 [facility] 8 mg 1-20 tablet by ity of disintegrat 00:00: mouth [place] ing tablet 00 every 8 Medica l (eight) Branch hours as needed for Nausea and Vomiting (N/V). ondansetron 2021-04 Yes [id number] 8mg Take 1 [facility] 8 mg 1-20 tablet by ity of disintegrat 00:00: mouth [place] ing tablet 00 every 8 Medica l (eight) Branch hours as needed for Nausea and Vomiting (N/V). ondansetron 2021-04 Yes [id number] 8mg Take 1 [facility] 8 mg 1-20 tablet by ity of disintegrat 00:00: mouth [place] ing tablet 00 every 8 Medica l (eight) Branch hours as needed for Nausea and Vomiting (N/V). ondansetron 2021-04 Yes [id number] 8mg Take 1 [facility] 8 mg 1-20 tablet by ity of disintegrat 00:00: mouth [place] ing tablet 00 every 8 Medica l (eight) Branch hours as needed for Nausea and Vomiting (N/V). ondansetron 2021-04 Yes [id number] 8mg Take 1 [facility] 8 mg 1-20 tablet by ity of disintegrat 00:00: mouth [place] ing tablet 00 every 8 Medica l (eight) Branch hours as needed for Nausea and Vomiting (N/V). ondansetron 2021-04 Yes [id number] 8mg Take 1 [facility] 8 mg 1-20 tablet by ity of disintegrat 00:00: mouth [place] ing tablet 00 every 8 Medica l (eight) Branch hours as needed for Nausea and Vomiting (N/V). ondansetron 2021-04 Yes [id number] 8mg Take 1 [facility] 8 mg 1-20 tablet by ity of disintegrat 00:00: mouth [place] ing tablet 00 every 8 Medica l (eight) Branch hours as needed for Nausea and Vomiting (N/V). ondansetron 2021-04 Yes [id number] 8mg Take 1 [facility] 8 mg 1-20 tablet by ity of disintegrat 00:00: mouth [place] ing tablet 00 every 8 Medica l (eight) Branch hours as needed for Nausea and Vomiting (N/V). ondansetron 2021-04 Yes [id number] 8mg Take 1 [facility] 8 mg 1-20 tablet by ity of disintegrat 00:00: mouth [place] ing tablet 00 every 8 Medica l (eight) Branch hours as needed for Nausea and Vomiting (N/V). ondansetron 2021-04 Yes [id number] 8mg Take 1 [facility] 8 mg 1-20 tablet by ity of disintegrat 00:00: mouth [place] ing tablet 00 every 8 Medica l (eight) Branch hours as needed for Nausea and Vomiting (N/V). ondansetron 2021-04 Yes [id number] 8mg Take 1 [facility] 8 mg 1-20 tablet by ity of disintegrat 00:00: mouth [place] ing tablet 00 every 8 Medica l (eight) Branch hours as needed for Nausea and Vomiting (N/V). ondansetron 2021-04 Yes [id number] 8mg Take 1 [facility] 8 mg 1-20 tablet by ity of disintegrat 00:00: mouth [place] ing tablet 00 every 8 Medica l (eight) Branch hours as needed for Nausea and Vomiting (N/V). ondansetron 2021-04 Yes [id number] 8mg Take 1 [facility] 8 mg 1-20 tablet by ity of disintegrat 00:00: mouth [place] ing tablet 00 every 8 Medica l (eight) Branch hours as needed for Nausea and Vomiting (N/V). ondansetron 2021-04 Yes [id number] 8mg Take 1 [facility] 8 mg 1-20 tablet by ity of disintegrat 00:00: mouth [place] ing tablet 00 every 8 Medica l (eight) Branch hours as needed for Nausea and Vomiting (N/V). ondansetron 2021-04 Yes [id number] 8mg Take 1 [facility] 8 mg 1-20 tablet by ity of disintegrat 00:00: mouth [place] ing tablet 00 every 8 Medica l (eight) Branch hours as needed for Nausea and Vomiting (N/V). ondansetron 2021-04 Yes [id number] 8mg Take 1 [facility] 8 mg 1-20 tablet by ity of disintegrat 00:00: mouth [place] ing tablet 00 every 8 Medica l (eight) Branch hours as needed for Nausea and Vomiting (N/V). ondansetron 2021-04 Yes [id number] 8mg Take 1 [facility] 8 mg 1-20 tablet by ity of disintegrat 00:00: mouth [place] ing tablet 00 every 8 Medica l (eight) Branch hours as needed for Nausea and Vomiting (N/V). ondansetron 2021-04 Yes [id number] 8mg Take 1 [facility] 8 mg 1-20 tablet by ity of disintegrat 00:00: mouth [place] ing tablet 00 every 8 Medica l (eight) Branch hours as needed for Nausea and Vomiting (N/V). ondansetron 2021-04 Yes [id number] 8mg Take 1 [facility] 8 mg 1-20 tablet by ity of disintegrat 00:00: mouth [place] ing tablet 00 every 8 Medica l (eight) Branch hours as needed for Nausea and Vomiting (N/V). ondansetron 2021-04 Yes [id number] 8mg Take 1 [facility] 8 mg 1-20 tablet by ity of disintegrat 00:00: mouth [place] ing tablet 00 every 8 Medica l (eight) Branch hours as needed for Nausea and Vomiting (N/V). ondansetron 2021-04 Yes [id number] 8mg Take 1 [facility] 8 mg 1-20 tablet by ity of disintegrat 00:00: mouth [place] ing tablet 00 every 8 Medica l (eight) Branch hours as needed for Nausea and Vomiting (N/V). ondansetron 2021-04 Yes [id number] 8mg Take 1 [facility] 8 mg 1-20 tablet by ity of disintegrat 00:00: mouth [place] ing tablet 00 every 8 Medica l (eight) Branch hours as needed for Nausea and Vomiting (N/V). ondansetron 2021-04- No [id number] 8mg Take 1 [facility] 8 mg 1-20 04-10 tablet by ity of disintegrat 00:00: 00:00 [place] tablet 00 :00 every 8 Medica l (eight) Branch hours as needed for Nausea and Vomiting (N/V). 2021-04 Yes Take by [facility] vit 1-09 mouth. ity of no.124/iron 15:57: [place] /folic 04 Medical ( Branch VITAMIN ORAL) 2021-04 Yes Take by [employer] vit 1-09 mouth. ity of no.124/iron 15:57: [place] /folic 04 Medical ( Branch VITAMIN ORAL) 2021-04 Yes Take by [facility] [facility] vit 1-09 mouth. ity of no.124/iron 15:57: [place] /folic 04 Medical ( Branch VITAMIN ORAL) 2021-04 Yes Take by [facility] [facility] vit 1-09 mouth. ity of no.124/iron 15:57: [place] /folic 04 Medical ( Branch VITAMIN ORAL) 2021-04 Yes Take by [facility] [facility] vit 1-09 mouth. ity of no.124/iron 15:57: [place] /folic 04 Medical ( Branch VITAMIN ORAL) 2021-04 Yes Take by [facility] [facility] vit 1-09 mouth. ity of no.124/iron 15:57: [place] /folic 04 Medical ( Branch VITAMIN ORAL) 2021-04 Yes Take by [facility] [facility] vit 1-09 mouth. ity of no.124/iron 15:57: [place] /folic 04 Medical ( Branch VITAMIN ORAL) 2021-04 Yes Take by [facility] [facility] vit 1-09 mouth. ity of no.124/iron 15:57: [place] /folic 04 Medical ( Branch VITAMIN ORAL) 2021-04 Yes Take by [facility] [facility] vit 1-09 mouth. ity of no.124/iron 15:57: [place] /folic 04 Medical ( Branch VITAMIN ORAL) 2021-04 Yes Take by [facility] [facility] vit 1-09 mouth. ity of no.124/iron 15:57: [place] /folic 04 Medical ( Branch VITAMIN ORAL) 2021-04 Yes Take by [facility] [facility] vit 1-09 mouth. ity of no.124/iron 15:57: [place] /folic 04 Medical ( Branch VITAMIN ORAL) 2021-04 Yes Take by [facility] vit 1-09 mouth. ity of no.124/iron 15:57: [place] /folic 04 Medical ( Branch VITAMIN ORAL) 2021-04 Yes Take by [facility] [facility] vit 1-09 mouth. ity of no.124/iron 15:57: [place] /folic 04 Medical ( Branch VITAMIN ORAL) 2021-04 Yes Take by [facility] vit 1-09 mouth. ity of no.124/iron 15:57: [place] /folic 04 Medical ( Branch VITAMIN ORAL) 2021-04 Yes Take by [facility] vit 1-09 mouth. ity of no.124/iron 15:57: [place] /folic 04 Medical ( Branch VITAMIN ORAL) 2021-04 Yes Take by [facility] vit 1-09 mouth. ity of no.124/iron 15:57: [place] /folic 04 Medical ( Branch VITAMIN ORAL) 2021-04 Yes Take by [facility] vit 1-09 mouth. ity of no.124/iron 15:57: [place] /folic 04 Medical ( Branch VITAMIN ORAL) 2021-04 Yes Take by [facility] vit 1-09 mouth. ity of no.124/iron 15:57: [place] /folic 04 Medical ( Branch VITAMIN ORAL) 2021-04 Yes Take by [facility] vit 1-09 mouth. ity of no.124/iron 15:57: [place] /folic 04 Medical ( Branch VITAMIN ORAL) 2021-04 Yes Take by [facility] vit 1-09 mouth. ity of no.124/iron 15:57: [place] /folic 04 Medical ( Branch VITAMIN ORAL) 2021-04 Yes Take by [facility] vit 1-09 mouth. ity of no.124/iron 15:57: [place] /folic 04 Medical ( Branch VITAMIN ORAL) 2021-04 Yes Take by [facility] vit 1-09 mouth. ity of no.124/iron 15:57: [place] /folic 04 Medical ( Branch VITAMIN ORAL) 2021-04 Yes Take by [facility] vit 1-09 mouth. ity of no.124/iron 15:57: [place] /folic 04 Medical ( Branch VITAMIN ORAL) 2021-04 Yes Take by [facility] vit 1-09 mouth. ity of no.124/iron [...] Branch VITAMIN ORAL) 2021-04 Yes Take by [facility] vit 1-09 mouth. ity of no.124/iron 15:57: [place] /folic 04 Medical ( Branch VITAMIN ORAL) 2021-04 Yes Take by [facility] vit 1-09 mouth. ity of no.124/iron 15:57: [place] /folic 04 Medical ( Branch VITAMIN ORAL) 2021-04 Yes Take by [facility] vit 1-09 mouth. ity of no.124/iron 15:57: [place] /folic 04 Medical ( Branch VITAMIN ORAL) 2021-04 Yes Take by [facility] vit 1-09 mouth. ity of no.124/iron 15:57: [place] /folic 04 Medical ( Branch VITAMIN ORAL) 2021-04 Yes Take by [facility] vit 1-09 mouth. ity of no.124/iron 15:57: [place] /folic 04 Medical ( Branch VITAMIN ORAL) 2021-04 Yes Take by [facility] vit 1-09 mouth. ity of no.124/iron 15:57: [place] /folic 04 Medical ( Branch VITAMIN ORAL) 2021-04 Yes Take by [facility] vit 1-09 mouth. ity of no.124/iron 15:57: [place] /folic 04 Medical ( Branch VITAMIN ORAL) 2021-04 Yes Take by [facility] vit 1-09 mouth. ity of no.124/iron 15:57: [place] /folic 04 Medical ( Branch VITAMIN ORAL) 2021-04 Yes Take by [facility] vit 1-09 mouth. ity of no.124/iron 15:57: [place] /folic 04 Medical ( Branch VITAMIN ORAL) 2021-04 Yes Take by [facility] vit 1-09 mouth. ity of no.124/iron 15:57: [place] /folic 04 Medical ( Branch VITAMIN ORAL) 2021-04 Yes Take by [facility] vit 1-09 mouth. ity of no.124/iron 15:57: [place] /folic 04 Medical ( Branch VITAMIN ORAL) 2021-04 Yes Take by [facility] vit 1-09 mouth. ity of no.124/iron 15:57: [place] /folic 04 Medical ( Branch VITAMIN ORAL) 2021-04 Yes Take by [facility] vit 1-09 mouth. ity of no.124/iron 15:57: [place] /folic 04 Medical ( Branch VITAMIN ORAL) 2021-04 Yes Take by [facility] vit 1-09 mouth. ity of no.124/iron 15:57: [place] /folic 04 Medical ( Branch VITAMIN ORAL) 2021-04 Yes Take by [employer] vit 1-09 mouth. ity of no.124/iron 15:57: [place] /folic 04 Medical ( Branch VITAMIN ORAL) 2021-04 Yes Take by [employer] vit 1-09 mouth. ity of no.124/iron 15:57: [place] /folic 04 Medical ( Branch VITAMIN ORAL) 2021-04 Yes Take by [employer] vit 1-09 mouth. ity of no.124/iron 15:57: [place] /folic 04 Medical ( Branch VITAMIN ORAL) metoclopram 2021-04 Yes [id number] 10mg Take 1 [facility] [place] HCl 10 1-09 tablet by ity of mg tablet 00:00: mouth [place] 00 every 6 Medical (six) Branch hours as needed for Nausea and Vomiting (N/V). metoclopram 2021-04 Yes [id number] 10mg Take 1 [facility] [place] HCl 10 1-09 tablet by ity of mg tablet 00:00: mouth [place] 00 every 6 Medical (six) Branch hours as needed for Nausea and Vomiting (N/V). metoclopram 2021-04 Yes [id number] 10mg Take 1 [facility] [place] HCl 10 1-09 tablet by ity of mg tablet 00:00: mouth [place] 00 every 6 Medical (six) Branch hours as needed for Nausea and Vomiting (N/V). metoclopram 2021-04 Yes [id number] 10mg Take 1 [facility] [place] HCl 10 1-09 tablet by ity of mg tablet 00:00: mouth [place] 00 every 6 Medical (six) Branch hours as needed for Nausea and Vomiting (N/V). metoclopram 2021-04 Yes [id number] 10mg Take 1 [facility] [place] HCl 10 1-09 tablet by ity of mg tablet 00:00: mouth [place] 00 every 6 Medical (six) Branch hours as needed for Nausea and Vomiting (N/V). metoclopram 2021-04 Yes [id number] 10mg Take 1 [facility] [place] HCl 10 1-09 tablet by ity of mg tablet 00:00: mouth [place] 00 every 6 Medical (six) Branch hours as needed for Nausea and Vomiting (N/V). metoclopram 2-1 Yes [id number] 10mg Take 1 [facility] [place] HCl 10 1-09 tablet by ity of mg tablet 00:00: mouth [place] 00 every 6 Medical (six) Branch hours as needed for Nausea and Vomiting (N/V). metoclopram 2021-1 Yes [id number] 10mg Take 1 [facility] [place] HCl 10 1-09 tablet by ity of mg tablet 00:00: mouth [place] 00 every 6 Medical (six) Branch hours as needed for Nausea and Vomiting (N/V). metoclopram 2021-1 Yes [id number] 10mg Take 1 [facility] [place] HCl 10 1-09 tablet by ity of mg tablet 00:00: mouth [place] 00 every 6 Medical (six) Branch hours as needed for Nausea and Vomiting (N/V). metoclopram 2021-1 Yes [id number] 10mg Take 1 [facility] [place] HCl 10 1-09 tablet by ity of mg tablet 00:00: mouth [place] 00 every 6 Medical (six) Branch hours as needed for Nausea and Vomiting (N/V). metoclopram 2021- Yes [id number] 10mg Take 1 [facility] [place] HCl 10 1-09 tablet by ity of mg tablet 00:00: mouth [place] 00 every 6 Medical (six) Branch hours as needed for Nausea and Vomiting (N/V). metoclopram 2021-1 Yes [id number] 10mg Take 1 [facility] [place] HCl 10 1-09 tablet by ity of mg tablet 00:00: mouth [place] 00 every 6 Medical (six) Branch hours as needed for Nausea and Vomiting (N/V). metoclopram 2-1 Yes [id number] 10mg Take 1 [facility] [place] HCl 10 1-09 tablet by ity of mg tablet 00:00: mouth [place] 00 every 6 Medical (six) Branch hours as needed for Nausea and Vomiting (N/V). metoclopram 2022-1 Yes [id number] 10mg Take 1 [facility] [place] HCl 10 1-09 tablet by ity of mg tablet 00:00: mouth [place] 00 every 6 Medical (six) Branch hours as needed for Nausea and Vomiting (N/V). metoclopram 2-1 Yes [id number] 10mg Take 1 [facility] [place] HCl 10 1-09 tablet by ity of mg tablet 00:00: mouth [place] 00 every 6 Medical (six) Branch hours as needed for Nausea and Vomiting (N/V). metoclopram 2021-1 Yes [id number] 10mg Take 1 [facility] [place] HCl 10 1-09 tablet by ity of mg tablet 00:00: mouth [place] 00 every 6 Medical (six) Branch hours as needed for Nausea and Vomiting (N/V). metoclopram 2021-1 Yes [id number] 10mg Take 1 [facility] [place] HCl 10 1-09 tablet by ity of mg tablet 00:00: mouth [place] 00 every 6 Medical (six) Branch hours as needed for Nausea and Vomiting (N/V). metoclopram 2021- Yes [id number] 10mg Take 1 [facility] [place] HCl 10 1-09 tablet by ity of mg tablet 00:00: mouth [place] 00 every 6 Medical (six) Branch hours as needed for Nausea and Vomiting (N/V). metoclopram 2021- Yes [id number] 10mg Take 1 [facility] [place] HCl 10 1-09 tablet by ity of mg tablet 00:00: mouth [place] 00 every 6 Medical (six) Branch hours as needed for Nausea and Vomiting (N/V). metoclopram 2021- Yes [id number] 10mg Take 1 [facility] [place] HCl 10 1-09 tablet by ity of mg tablet 00:00: mouth [place] 00 every 6 Medical (six) Branch hours as needed for Nausea and Vomiting (N/V). metoclopram 2021-1 Yes [id number] 10mg Take 1 [facility] [place] HCl 10 1-09 tablet by ity of mg tablet 00:00: mouth [place] 00 every 6 Medical (six) Branch hours as needed for Nausea and Vomiting (N/V). metoclopram 2-1 Yes [id number] 10mg Take 1 [facility] [place] HCl 10 1-09 tablet by ity of mg tablet 00:00: mouth [place] 00 every 6 Medical (six) Branch hours as needed for Nausea and Vomiting (N/V). metoclopram 2022-1 Yes [id number] 10mg Take 1 [facility] [place] HCl 10 1-09 tablet by ity of mg tablet 00:00: mouth [place] 00 every 6 Medical (six) Branch hours as needed for Nausea and Vomiting (N/V). metoclopram 2022-1 Yes [id number] 10mg Take 1 [facility] [place] HCl 10 1-09 tablet by ity of mg tablet 00:00: mouth [place] 00 every 6 Medical (six) Branch hours as needed for Nausea and Vomiting (N/V). metoclopram 2022-1 Yes [id number] 10mg Take 1 [facility] [place] HCl 10 1-09 tablet by ity of mg tablet 00:00: mouth [place] 00 every 6 Medical (six) Branch hours as needed for Nausea and Vomiting (N/V). metoclopram 2021-1 Yes [id number] 10mg Take 1 [facility] [place] HCl 10 1-09 tablet by ity of mg tablet 00:00: mouth [place] 00 every 6 Medical (six) Branch hours as needed for Nausea and Vomiting (N/V). metoclopram 2021-1 Yes [id number] 10mg Take 1 [facility] [place] HCl 10 1-09 tablet by ity of mg tablet 00:00: mouth [place] 00 every 6 Medical (six) Branch hours as needed for Nausea and Vomiting (N/V). metoclopram 2021-1 Yes [id number] 10mg Take 1 [facility] [place] HCl 10 1-09 tablet by ity of mg tablet 00:00: mouth [place] 00 every 6 Medical (six) Branch hours as needed for Nausea and Vomiting (N/V). metoclopram 2021-1 Yes [id number] 10mg Take 1 [facility] [place] HCl 10 1-09 tablet by ity of mg tablet 00:00: mouth [place] 00 every 6 Medical (six) Branch hours as needed for Nausea and Vomiting (N/V). metoclopram 2-1 Yes [id number] 10mg Take 1 [facility] [place] HCl 10 1-09 tablet by ity of mg tablet 00:00: mouth [place] 00 every 6 Medical (six) Branch hours as needed for Nausea and Vomiting (N/V). metoclopram 2-1 Yes [id number] 10mg Take 1 [facility] [place] HCl 10 1-09 tablet by ity of mg tablet 00:00: mouth [place] 00 every 6 Medical (six) Branch hours as needed for Nausea and Vomiting (N/V). metoclopram 2022-1 Yes [id number] 10mg Take 1 [facility] [place] HCl 10 1-09 tablet by ity of mg tablet 00:00: mouth [place] 00 every 6 Medical (six) Branch hours as needed for Nausea and Vomiting (N/V). metoclopram 2022-1 Yes [id number] 10mg Take 1 [facility] [place] HCl 10 1-09 tablet by ity of mg tablet 00:00: mouth [place] 00 every 6 Medical (six) Branch hours as needed for Nausea and Vomiting (N/V). metoclopram 2021-1 Yes [id number] 10mg Take 1 [facility] [place] HCl 10 1-09 tablet by ity of mg tablet 00:00: mouth [place] 00 every 6 Medical (six) Branch hours as needed for Nausea and Vomiting (N/V). metoclopram 2021-1 Yes [id number] 10mg Take 1 [facility] [place] HCl 10 1-09 tablet by ity of mg tablet 00:00: mouth [place] 00 every 6 Medical (six) Branch hours as needed for Nausea and Vomiting (N/V). metoclopram 2021-1 Yes [id number] 10mg Take 1 [facility] [place] HCl 10 1-09 tablet by ity of mg tablet 00:00: mouth [place] 00 every 6 Medical (six) Branch hours as needed for Nausea and Vomiting (N/V). metoclopram 2021- Yes [id number] 10mg Take 1 [facility] [place] HCl 10 1-09 tablet by ity of mg tablet 00:00: mouth [place] 00 every 6 Medical (six) Branch hours as needed for Nausea and Vomiting (N/V). metoclopram 2021- Yes [id number] 10mg Take 1 [facility] [place] HCl 10 1-09 tablet by ity of mg tablet 00:00: mouth [place] 00 every 6 Medical (six) Branch hours as needed for Nausea and Vomiting (N/V). metoclopram 2021- Yes [id number] 10mg Take 1 [facility] [place] HCl 10 1-09 tablet by ity of mg tablet 00:00: mouth [place] 00 every 6 Medical (six) Branch hours as needed for Nausea and Vomiting (N/V). metoclopram 2021- 2023- No [id number] 10mg Take 1 [facility] [place] HCl 10 [...] 00 every Medical morning. Branch modafiniL 2-0 2- No 200mg Take 200 Un queta 200 mg 6-14 09-23 mg by ity of tablet 00:00: 00:00 mouth [place] 00 :00 every Medical morning. Branch modafiniL 2021-0 2021- No 200mg Take 200 Un [place]eta 200 mg 6-14 09-23 mg by ity of tablet 00:00: 00:00 mouth [place] 00 :00 every Medical morning. Branch modafiniL 2-0 2- No 200mg Take 200 Un queta 200 mg 6-14 09-23 mg by ity of tablet 00:00: 00:00 mouth [place] 00 :00 every Medical morning. Branch cyclobenzap 2021-0 Yes [id number] TAKE 1 [facility] rine 10 mg 5-07 TABLET BY ity of tablet 00:00: MOUTH [place] 00 EVERY 8 Medical HOURS Branch NEEDED FOR MUSCLE SPASMS. cyclobenzap 2021-0 Yes [id number] TAKE 1 [facility] rine 10 mg 5-07 TABLET BY ity of tablet 00:00: MOUTH [place] 00 EVERY 8 Medical HOURS Branch NEEDED FOR MUSCLE SPASMS. cyclobenzap 2021-0 Yes [id number] TAKE 1 [facility] rine 10 mg 5-07 TABLET BY ity of tablet 00:00: MOUTH [place] 00 EVERY 8 Medical HOURS Branch NEEDED FOR MUSCLE SPASMS. cyclobenzap 2021-0 Yes [id number] TAKE 1 [facility] rine 10 mg 5-07 TABLET BY ity of tablet 00:00: MOUTH [place] 00 EVERY 8 Medical HOURS Branch NEEDED FOR MUSCLE SPASMS. cyclobenzap 2021-0 Yes [id number] TAKE 1 [facility] rine 10 mg 5-07 TABLET BY ity of tablet 00:00: MOUTH [place] 00 EVERY 8 Medical HOURS Branch NEEDED FOR MUSCLE SPASMS. cyclobenzap 2021-0 Yes [id number] TAKE 1 [facility] rine 10 mg 5-07 TABLET BY ity of tablet 00:00: MOUTH [place] 00 EVERY 8 Medical HOURS Branch NEEDED FOR MUSCLE SPASMS. cyclobenzap 2021-0 2022- No [id number] TAKE 1 [facility] rine 10 mg 5-07 10-13 TABLET BY ity of tablet 00:00: 00:00 MOUTH [place] 00 :00 EVERY 8 Medical HOURS Branch NEEDED FOR MUSCLE SPASMS. cyclobenzap 2021-0 2022- No [id number] TAKE 1 [facility] rine 10 mg 5-07 10-13 TABLET BY ity of tablet 00:00: 00:00 MOUTH [place] 00 :00 EVERY 8 Medical HOURS Branch NEEDED FOR MUSCLE SPASMS. gabapentin 2019-0 Yes TK 2 TO Un queta 600 mg 7-25 1 [...] 00:00 [place] 00 :00 Medical Branch tablet 2019-[address] 1 [facility] compound 5-13 AND 1/2 ity of base no.230 00:00: FILMS [place]SUBSOL[place] 00 [place] [facility] [facility] [place]UE Q Branch DAY ALLOW TO DISSOLVE SLOWLY WITHOUT CHEWING OR SWALLOWING tablet 2019- Yes PLACE 1 [facility] compound 5-13 AND 1/2 ity of base no.230 00:00: FILMS [place] (SUBSOLV 00 UNDER THE Medica l RDT MIS) TONGUE Q Branch DAY ALLOW TO DISSOLVE SLOWLY WITHOUT CHEWING OR SWALLOWING tablet 2019-[address] 1 [facility] compound 5-13 AND 1/2 ity of base no.230 00:00: FILMS [place] (SUBSOLV 00 UNDER THE Medica l RDT MIS) TONGUE Q Branch DAY ALLOW TO DISSOLVE SLOWLY WITHOUT CHEWING OR SWALLOWING tablet 2018-2021- No PLACE 1 [facility] compound 5-13 01-06 [...] Name TDAP 2022-12-21 Completed University of 00:00:00 [facility] Rho (d) Immune 2022-12-21 Completed University of Globulin 00:00:00 [facility] Rho (d) Immune 2022-04-11 Completed University of Globulin 00:00:00 [facility] Branch Rho (d) Immune 2022-04-11 Completed University of Globulin 00:00:00 [facility] Rho (d) Immune 2022-04-11 Completed University of Globulin 00:00:00 [facility] Branch Rho (d) Immune 2022-04-11 Completed University of Globulin 00:00:00 [facility] Branch Rho (d) Immune 2022-04-11 Completed University of Globulin 00:00:00 [facility] Branch Rho (d) Immune 2022-04-11 Completed University of Globulin 00:00:00 [facility] Branch Rho (d) Immune 2022-04-11 Completed University of Globulin 00:00:00 [facility] Branch Rho (d) Immune 2022-04-11 Completed University of Globulin 00:00:00 [facility] Branch Rho (d) Immune 2022-04-11 Completed University of Globulin 00:00:00 [facility] Branch Rho (d) Immune 2022-04-11 Completed University of Globulin 00:00:00 [facility] Branch Rho (d) Immune 2022-04-11 Completed University of Globulin 00:00:00 [facility] Branch Rho (d) Immune 2022-04-11 Completed University of Globulin 00:00:00 [facility] Branch Rho (d) Immune 2022-04-11 Completed University of Globulin 00:00:00 [facility] Branch Rho (d) Immune 2022-04-11 Completed University of Globulin 00:00:00 [facility] Branch Rho (d) Immune 2022-04-11 Completed University of Globulin 00:00:00 [facility] Branch Rho (d) Immune 2022-04-11 Completed University of Globulin 00:00:00 [facility] Branch Rho (d) Immune 2022-04-11 Completed University of Globulin 00:00:00 [facility] Branch Rho (d) Immune 2022-04-11 Completed University of Globulin 00:00:00 [facility] Branch Rho (d) Immune 2022-04-11 Completed University of Globulin 00:00:00 [facility] Branch Rho (d) Immune 2022-04-11 Completed University of Globulin 00:00:00 [facility] Branch Rho (d) Immune 2022-04-11 Completed University of Globulin 00:00:00 [facility] Branch Rho (d) Immune 2022-04-11 Completed University of Globulin 00:00:00 [facility] Branch Rho (d) Immune 2022-04-11 Completed University of Globulin 00:00:00 [facility] [place] [facility] Rho (d) Immune 2022-04-11 Completed [facility] Globulin 00:00:00 [facility] Rho (d) Immune 2022-04-11 Completed [facility] Globulin 00:00:00 [facility] Rho (d) Immune 2022-04-11 Completed [facility] Globulin 00:00:00 [facility] Rho (d) Immune 2022-04-11 Completed [facility] Globulin 00:00:00 [facility] Rho (d) Immune 2022-04-11 Completed [facility] Globulin 00:00:00 [facility] Rho (d) Immune 2022-04-11 Completed [facility] Globulin 00:00:00 [facility] Rho (d) Immune 2022-04-11 Completed [facility] Globulin 00:00:00 [facility] Rho (d) Immune 2022-04-11 Completed [facility] Globulin 00:00:00 [facility] Rho (d) Immune 2022-04-11 Completed [facility] Globulin 00:00:00 [facility] Rho (d) Immune 2022-04-11 Completed [facility] Globulin 00:00:00 [facility] Rho (d) Immune 2022-04-11 Completed [facility] Globulin 00:00:00 [facility] Rho (d) Immune 2022-04-11 Completed [facility] Globulin 00:00:00 [facility] Rho (d) Immune 2022-04-11 Completed [facility] Globulin 00:00:00 [facility] Rho (d) Immune 2022-04-11 Completed [facility] Globulin 00:00:00 [facility] Rho (d) Immune 2022-04-11 Completed [facility] Globulin 00:00:00 [facility] Rho (d) Immune 2022-04-11 Completed [facility] Globulin 00:00:00 [facility] Rho (d) Immune 2022-04-11 Completed [facility] Globulin 00:00:00 [facility] Rho (d) Immune 2022-04-11 Completed [facility] Globulin 00:00:00 [facility] Rho (d) Immune 2022-04-11 Completed [facility] Globulin 00:00:00 [facility] Rho (d) Immune 2022-04-11 Completed [facility] Globulin 00:00:00 [facility] Rho (d) Immune 2022-04-11 Completed [facility] Globulin 00:00:00 [facility] Rho (d) Immune 2022-04-11 Completed [facility] Globulin 00:00:00 [facility] Rho (d) Immune 2022-04-11 Completed [facility] Globulin 00:00:00 [facility] Rho (d) Immune 2022-04-11 Completed [facility] Globulin 00:00:00 [facility] HPV9 2022-03-28 Completed [facility] 00:00:00 [facility] HPV9 2022-03-28 Completed [facility] 00:00:00 [facility] HPV9 2022-03-28 Completed [facility] 00:00:00 [facility] HPV9 2022-03-28 Completed [facility] 00:00:00 [facility] HPV9 2022-03-28 Completed [facility] 00:00:00 [facility] HPV9 2022-03-28 Completed [facility] 00:00:00 [facility] HPV9 2022-03-28 Completed [facility] 00:00:00 [facility] HPV9 2022-03-28 Completed [facility] 00:00:00 [facility] HPV9 2022-03-28 Completed [facility] 00:00:00 [facility] HPV9 2022-03-28 Completed [facility] of 00:00:00 [facility] HPV9 2022-03-28 Completed [facility] 00:00:00 [facility] [place] [facility] HPV9 2022-03-28 Completed [facility] 00:00:00 [facility] HPV9 2022-03-28 Completed [facility] 00:00:00 [facility] HPV9 2022-03-28 Completed [facility] 00:00:00 [facility] HPV9 2022-03-28 Completed [facility] 00:00:00 [facility] HPV9 2022-03-28 Completed [facility] 00:00:00 [facility] HPV9 2022-03-28 Completed [facility] 00:00:00 [facility] HPV9 2022-03-28 Completed [facility] 00:00:00 [facility] HPV9 2022-03-28 Completed [facility] 00:00:00 [facility] HPV9 2022-03-28 Completed [facility] 00:00:00 [facility] HPV9 2022-03-28 Completed [facility] 00:00:00 [facility] HPV9 2022-03-28 Completed [facility] of 00:00:00 [facility] HPV9 2022-03-28 Completed [facility] 00:00:00 [facility] HPV9 2022-03-28 Completed [facility] 00:00:00 [facility] HPV9 2022-03-28 Completed [facility] 00:00:00 [facility] HPV9 2022-03-28 Completed [facility] 00:00:00 [facility] HPV9 2022-03-28 Completed [facility] 00:00:00 [facility] HPV9 2022-03-28 Completed [facility] 00:00:00 [facility] HPV9 2022-03-28 Completed [facility] 00:00:00 [facility] HPV9 2022-03-28 Completed [facility] 00:00:00 [facility] HPV9 2022-03-28 Completed [facility] of 00:00:00 [facility] HPV9 2022-03-28 Completed [facility] 00:00:00 [facility] HPV9 2022-03-28 Completed [facility] 00:00:00 [facility] HPV9 2022-03-28 Completed [facility] 00:00:00 [facility] HPV9 2022-03-28 Completed [facility] of 00:00:00 [facility] HPV9 2022-03-28 Completed [facility] 00:00:00 [facility] HPV9 2022-03-28 Completed [facility] 00:00:00 [facility] HPV9 2022-03-28 Completed [facility] 00:00:00 [facility] HPV9 2022-03-28 Completed [facility] 00:00:00 [facility] HPV9 2022-03-28 Completed [facility] 00:00:00 [facility] HPV9 2022-03-28 Completed [facility] 00:00:00 [facility] HPV9 2022-03-28 Completed [facility] 00:00:00 [facility] HPV9 2022-03-28 Completed [facility] 00:00:00 [facility] HPV9 2022-03-28 Completed [facility] 00:00:00 [facility] HPV9 2022-03-28 Completed [facility] of 00:00:00 [facility] HPV9 2022-03-28 Completed [facility] 00:00:00 [facility] HPV9 2022-03-28 Completed [facility] of 00:00:00 [facility] HPV9 2022-03-28 Completed [facility] of 00:00:00 [facility] HPV9 2022-03-28 Completed [facility] 00:00:00 [facility] HPV9 2022-03-28 Completed [facility] of 00:00:00 [facility] HPV9 2022-03-28 Completed [facility] of 00:00:00 [facility] HPV9 2022-03-28 Completed [facility] of 00:00:00 [facility] HPV9 2022-03-28 Completed [facility] of 00:00:00 [facility] Influenza Virus 2022-02-22 Completed [facility] Vaccine [facility], 00:00:00 [place] [facility] Preserv [facility] ABX [facility] Free 6 MO-64 YRS Influenza Virus 2022-02-22 Completed [facility]ine [facility], 00:00:00 [place] [facility] Preserv [facility] ABX [facility] Free 6 MO-64 YRS Influenza Virus 2022-02-22 Completed [facility]ine [facility], 00:00:00 [place] [facility] Preserv and ABX [facility] Free 6 MO-64 YRS Influenza Virus 2022-02-22 Completed [facility]ine [facility], 00:00:00 [place] [facility] Preserv and ABX [facility] Free 6 MO-64 YRS Influenza Virus 2022-02-22 Completed [facility]ine [facility], 00:00:00 [place] [facility] Preserv and ABX [facility] Free [...] YRS HPV9 2021-12-30 Completed [facility] of 00:00:00 [facility] HPV9 2021-12-30 Completed [facility] of 00:00:00 [facility] HPV9 2021-12-30 Completed [facility] of 00:00:00 [facility] HPV9 2021-12-30 Completed [facility] of 00:00:00 [facility] HPV9 2021-12-30 Completed [facility] of 00:00:00 [facility] HPV9 2021-12-30 Completed [facility] of 00:00:00 [facility] HPV9 2021-12-30 Completed [facility] of 00:00:00 [facility] HPV9 2021-12-30 Completed [facility] of 00:00:00 [facility] HPV9 2021-12-30 Completed [facility] of 00:00:00 [facility] HPV9 2021-12-30 Completed [facility] of 00:00:00 [facility] HPV9 2021-12-30 Completed [facility] of 00:00:00 [facility] HPV9 2021-12-30 Completed [facility] 00:00:00 [facility] HPV9 2021-12-30 Completed [facility] 00:00:00 [facility] HPV9 2021-12-30 Completed [facility] of 00:00:00 [facility] HPV9 2021-12-30 Completed [facility] 00:00:00 [facility] HPV9 2021-12-30 Completed [facility] 00:00:00 [facility] HPV9 2021-12-30 Completed [facility] of 00:00:00 [facility] HPV9 2021-12-30 Completed [facility] 00:00:00 [facility] HPV9 2021-12-30 Completed [facility] 00:00:00 [facility] HPV9 2021-12-30 Completed [facility] 00:00:00 [facility] HPV9 2021-12-30 Completed [facility] 00:00:00 [facility] HPV9 2021-12-30 Completed [facility] 00:00:00 [facility] HPV9 2021-12-30 Completed [facility] 00:00:00 [facility] HPV9 2021-12-30 Completed [facility] of 00:00:00 [facility] HPV9 2021-12-30 Completed [facility] 00:00:00 [facility] HPV9 2021-12-30 Completed [facility] of 00:00:00 [facility] HPV9 2021-12-30 Completed [facility] of 00:00:00 [facility] HPV9 2021-12-30 Completed [facility] of 00:00:00 [facility] HPV9 2021-12-30 Completed [facility] of 00:00:00 [facility] HPV9 2021-12-30 Completed [facility] 00:00:00 [facility] HPV9 2021-12-30 Completed [facility] of 00:00:00 [facility] HPV9 2021-12-30 Completed [facility] 00:00:00 [facility] HPV9 2021-12-30 Completed [facility] 00:00:00 [facility] HPV9 2021-12-30 Completed [facility] of 00:00:00 [facility] HPV9 2021-12-30 Completed [facility] of 00:00:00 [facility] HPV9 2021-12-30 Completed [facility] 00:00:00 [facility] HPV9 2021-12-30 Completed [facility] of 00:00:00 [facility] HPV9 2021-12-30 Completed [facility] 00:00:00 [facility] HPV9 2021-12-30 Completed [facility] of 00:00:00 [facility] HPV9 2021-12-30 Completed [facility] of 00:00:00 [facility] HPV9 2021-12-30 Completed [facility] of 00:00:00 [facility] HPV9 2021-12-30 Completed [facility] 00:00:00 [facility] HPV9 2021-12-30 Completed [facility] of 00:00:00 [facility] HPV9 2021-12-30 Completed [facility] 00:00:00 [facility] HPV9 2021-12-30 Completed [facility] 00:00:00 [facility] HPV9 2021-12-30 Completed [facility] 00:00:00 [facility] HPV9 2021-12-30 Completed [facility] 00:00:00 [facility] HPV9 2021-12-30 Completed [facility] 00:00:00 [facility] HPV9 2021-12-30 Completed [facility] 00:00:00 [facility] HPV9 2021-12-30 Completed [facility] 00:00:00 [facility] HPV9 2021-12-30 Completed [facility] 00:00:00 [facility] HPV9 2021-12-30 Completed [facility] of 00:00:00 [facility] HPV9 2021-12-30 Completed [facility] 00:00:00 [facility] HPV9 2021-12-30 Completed [facility] 00:00:00 [facility] HPV9 2021-12-30 Completed [facility] 00:00:00 [facility] HPV9 2021-12-30 Completed [facility] of 00:00:00 [facility] HPV9 2021-12-30 Completed [facility] 00:00:00 [facility] HPV9 2021-12-30 Completed [facility] 00:00:00 [facility] HPV9 2021-12-30 Completed [facility] of 00:00:00 [facility] HPV9 2021-12-30 Completed [facility] 00:00:00 [facility] HPV9 2021-12-30 Completed [facility] 00:00:00 [facility] HPV9 2021-12-30 Completed [facility] of 00:00:00 [facility] HPV9 2021-12-30 Completed [facility] of 00:00:00 [facility] HPV9 2021-12-30 Completed [facility] of 00:00:00 [facility] HPV9 2021-12-30 Completed [facility] of 00:00:00 [facility] HPV9 2021-12-30 Completed [facility] of 00:00:00 [facility] HPV9 2021-12-30 Completed [facility] of 00:00:00 [facility] HPV9 2021-12-30 Completed [facility] 00:00:00 [facility] HPV9 2021-12-30 Completed [facility] 00:00:00 [facility] HPV9 2021-12-30 Completed [facility] 00:00:00 [facility] HPV9 2021-12-30 Completed [facility] 00:00:00 [facility] HPV9 2021-12-30 Completed [facility] 00:00:00 [facility] HPV9 2021-12-30 Completed [facility] 00:00:00 [facility] HPV9 2021-12-30 Completed [facility] of 00:00:00 [facility] HPV9 2021-12-30 Completed [facility] of 00:00:00 [facility] HPV9 2021-12-30 Completed [facility] 00:00:00 [facility] HPV9 2021-12-30 Completed [facility] 00:00:00 [facility] HPV9 2021-12-30 Completed [facility] 00:00:00 [facility] HPV9 2021-12-30 Completed [facility] of 00:00:00 [facility] HPV9 2021-12-30 Completed [facility] 00:00:00 [facility] HPV9 2021-12-30 Completed [facility] of 00:00:00 [facility] HPV9 2021-12-30 Completed [facility] of 00:00:00 [facility] HPV9 2021-12-30 Completed [facility] 00:00:00 [facility] HPV9 2021-12-30 Completed [facility] 00:00:00 [facility] HPV9 2021-12-30 Completed [facility] of 00:00:00 [facility] HPV9 2021-12-30 Completed [facility] 00:00:00 [facility] HPV9 2021-12-30 Completed [facility] 00:00:00 [facility] HPV9 2021-12-30 Completed [facility] 00:00:00 [facility] HPV9 2021-12-30 Completed [facility] 00:00:00 [facility] HPV9 2021-12-30 Completed [facility] of 00:00:00 [facility] HPV9 2021-12-30 Completed [facility] of 00:00:00 [facility] HPV9 2021-12-30 Completed [facility] of 00:00:00 [facility] HPV9 2021-12-30 Completed [facility] of 00:00:00 [facility] HPV9 2021-12-30 Completed [facility] of 00:00:00 [facility] SARS-COV-2 COVID-19 2020-09-17 Completed Unive rsity of VACCINE - (MODERNA) 00:00:00 [facility] SARS-COV-2 COVID-19 2020-09-17 Completed Unive rsity of VACCINE - (MODERNA) 00:00:00 [facility] SARS-COV-2 COVID-19 2020-09-17 Completed Unive rsity of VACCINE - (MODERNA) 00:00:00 [facility] SARS-COV-2 COVID-19 2020-09-17 Completed Unive rsity of VACCINE - (MODERNA) 00:00:00 [facility] SARS-COV-2 COVID-19 2020-09-17 Completed Unive rsity of VACCINE - (MODERNA) 00:00:00 [facility] SARS-COV-2 COVID-19 2020-09-17 Completed Unive rsity of VACCINE - (MODERNA) 00:00:00 [facility] SARS-COV-2 COVID-19 2020-09-17 Completed Unive rsity of VACCINE - (MODERNA) 00:00:00 [facility] SARS-COV-2 COVID-19 2020-09-17 Completed Unive rsity of VACCINE - (MODERNA) 00:00:00 [facility] SARS-COV-2 COVID-19 2020-09-17 Completed Unive rsity of VACCINE - (MODERNA) 00:00:00 [facility] SARS-COV-2 COVID-19 2020-09-17 Completed Unive rsity of VACCINE - (MODERNA) 00:00:00 [facility] SARS-COV-2 COVID-19 2020-09-17 Completed Unive rsity of VACCINE - (MODERNA) 00:00:00 [facility] SARS-COV-2 COVID-19 2020-09-17 Completed Unive rsity of VACCINE - (MODERNA) 00:00:00 [facility] SARS-COV-2 COVID-19 2020-09-17 Completed Unive rsity of VACCINE - (MODERNA) 00:00:00 [facility] SARS-COV-2 COVID-19 2020-09-17 Completed Unive rsity of VACCINE - (MODERNA) 00:00:00 [facility] SARS-COV-2 COVID-19 2020-09-17 Completed Unive rsity of VACCINE - (MODERNA) 00:00:00 [facility] SARS-COV-2 COVID-19 2020-09-17 Completed Unive rsity of VACCINE - (MODERNA) 00:00:00 [facility] SARS-COV-2 COVID-19 2020-09-17 Completed Unive rsity of VACCINE - (MODERNA) 00:00:00 [facility] SARS-COV-2 COVID-19 2020-09-17 Completed Unive rsity of VACCINE - (MODERNA) 00:00:00 [facility] SARS-COV-2 COVID-19 2020-09-17 Completed Unive rsity of VACCINE - (MODERNA) 00:00:00 [facility] SARS-COV-2 COVID-19 2020-09-17 Completed Unive rsity of VACCINE - (MODERNA) 00:00:00 [facility] SARS-COV-2 COVID-19 2020-09-17 Completed Unive rsity of VACCINE - (MODERNA) 00:00:00 [facility] SARS-COV-2 COVID-19 2020-09-17 Completed Unive rsity of VACCINE - (MODERNA) 00:00:00 [facility] SARS-COV-2 COVID-19 2020-09-17 Completed Unive rsity of VACCINE - (MODERNA) 00:00:00 [facility] SARS-COV-2 COVID-19 2020-09-17 Completed Unive rsity of VACCINE - (MODERNA) 00:00:00 [facility] SARS-COV-2 COVID-19 2020-09-17 Completed Unive rsity of VACCINE - (MODERNA) 00:00:00 [facility] SARS-COV-2 COVID-19 2020-09-17 Completed [facility]ive rsity of VACCINE - (MODERNA) 00:00:00 [facility] SARS-COV-2 COVID-19 2020-09-17 Completed Unive rsity of VACCINE - (MODERNA) 00:00:00 [facility] SARS-COV-2 COVID-19 2020-09-17 Completed Unive rsity of VACCINE - (MODERNA) 00:00:00 [facility] SARS-COV-2 COVID-19 2020-09-17 Completed Unive rsity of VACCINE - (MODERNA) 00:00:00 [facility] SARS-COV-2 COVID-19 2020-09-17 Completed Unive rsity of VACCINE - (MODERNA) 00:00:00 [facility] SARS-COV-2 COVID-19 2020-09-17 Completed Unive rsity of VACCINE - (MODERNA) 00:00:00 [facility] SARS-COV-2 COVID-19 2020-09-17 Completed Unive rsity of VACCINE - (MODERNA) 00:00:00 [facility] SARS-COV-2 COVID-19 2020-09-17 Completed Unive rsity of VACCINE - (MODERNA) 00:00:00 [facility] SARS-COV-2 COVID-19 2020-09-17 Completed Unive rsity of VACCINE - (MODERNA) 00:00:00 [facility] SARS-COV-2 COVID-19 2020-09-17 Completed [facility] rsity of VACCINE - (MODERNA) 00:00:00 [facility] SARS-COV-2 COVID-19 2020-09-17 Completed [facility] rsity of VACCINE - (MODERNA) 00:00:00 [facility] SARS-COV-2 COVID-19 2020-09-17 Completed [facility] rsity of VACCINE - (MODERNA) 00:00:00 [facility] SARS-COV-2 COVID-19 2020-09-17 Completed Unive rsity of VACCINE - (MODERNA) 00:00:00 [facility] SARS-COV-2 COVID-19 2020-09-17 Completed [facility]ive rsity of VACCINE - (MODERNA) 00:00:00 [facility] SARS-COV-2 COVID-19 2020-09-17 Completed [facility] rsity of VACCINE - (MODERNA) 00:00:00 [facility] SARS-COV-2 COVID-19 2020-09-17 Completed [facility]ive rsity of VACCINE - (MODERNA) 00:00:00 [facility] SARS-COV-2 COVID-19 2020-09-17 Completed Unive rsity of VACCINE - (MODERNA) 00:00:00 [facility] SARS-COV-2 COVID-19 2020-09-17 Completed [facility]ive rsity of VACCINE - (MODERNA) 00:00:00 [facility] SARS-COV-2 COVID-19 2020-09-17 Completed [facility] rsity of VACCINE - (MODERNA) 00:00:00 [facility] SARS-COV-2 COVID-19 2020-09-17 Completed [facility]ity of VACCINE - (MODERNA) 00:00:00 [facility] SARS-COV-2 COVID-19 2020-09-17 Completed [facility]ity of VACCINE - (MODERNA) 00:00:00 [facility] SARS-COV-2 COVID-19 2020-09-17 Completed [facility] rsity of VACCINE - (MODERNA) 00:00:00 [facility] SARS-COV-2 COVID-19 2020-09-17 Completed [facility] rsity of VACCINE - (MODERNA) 00:00:00 [facility] SARS-COV-2 COVID-19 2020-09-17 Completed [facility] rsity of VACCINE - (MODERNA) 00:00:00 [facility] SARS-COV-2 COVID-19 2020-09-17 Completed [facility] rsity of VACCINE - (MODERNA) 00:00:00 [facility] SARS-COV-2 COVID-19 2020-09-17 Completed [facility] rsity of VACCINE - (MODERNA) 00:00:00 [facility] SARS-COV-2 COVID-19 2020-09-17 Completed [facility] rsity of VACCINE - (MODERNA) 00:00:00 [facility] SARS-COV-2 COVID-19 2020-09-17 Completed [facility]ity of VACCINE - (MODERNA) 00:00:00 [facility] SARS-COV-2 COVID-19 2020-09-17 Completed [facility] of VACCINE - (MODERNA) 00:00:00 [facility] SARS-COV-2 COVID-19 2020-09-17 Completed [facility] rsity of VACCINE - (MODERNA) 00:00:00 [facility] SARS-COV-2 COVID-19 2020-09-17 Completed [facility] of VACCINE - (MODERNA) 00:00:00 [facility] SARS-COV-2 COVID-19 2020-09-17 Completed [facility] of VACCINE - (MODERNA) 00:00:00 [facility] SARS-COV-2 COVID-19 2020-09-17 Completed [facility] of VACCINE - (MODERNA) 00:00:00 [facility] SARS-COV-2 COVID-19 2020-09-17 Completed [facility] of VACCINE - (MODERNA) 00:00:00 [facility] SARS-COV-2 COVID-19 2020-09-17 Completed [facility]ity of VACCINE - (MODERNA) 00:00:00 [facility] SARS-COV-2 COVID-19 2020-09-17 Completed [facility]ity of VACCINE - (MODERNA) 00:00:00 [facility] SARS-COV-2 COVID-19 2020-09-17 Completed [facility] of VACCINE - (MODERNA) 00:00:00 [facility] SARS-COV-2 COVID-19 2020-09-17 Completed [facility] of VACCINE - (MODERNA) 00:00:00 [facility] SARS-COV-2 COVID-19 2020-09-17 Completed [facility] of VACCINE - (MODERNA) 00:00:00 [facility] SARS-COV-2 COVID-19 2020-08-07 Completed [facility] of VACCINE - (MODERNA) 00:00:00 [facility] SARS-COV-2 COVID-19 2020-08-07 Completed [facility] of VACCINE - (MODERNA) 00:00:00 [facility] SARS-COV-2 COVID-19 2020-08-07 Completed [facility] VACCINE - (MODERNA) 00:00:00 [facility] SARS-COV-2 COVID-19 2020-08-07 Completed [facility] VACCINE - (MODERNA) 00:00:00 [facility] SARS-COV-2 COVID-19 2020-08-07 Completed [facility] VACCINE - (MODERNA) 00:00:00 [facility] SARS-COV-2 COVID-19 2020-08-07 Completed [facility] VACCINE - (MODERNA) 00:00:00 [facility] SARS-COV-2 COVID-19 2020-08-07 Completed [facility] VACCINE - (MODERNA) 00:00:00 [facility] SARS-COV-2 COVID-19 2020-08-07 Completed [facility] VACCINE - (MODERNA) 00:00:00 [facility] SARS-COV-2 COVID-19 2020-08-07 Completed [facility] VACCINE - (MODERNA) 00:00:00 [facility] SARS-COV-2 COVID-19 2020-08-07 Completed [facility] VACCINE - (MODERNA) 00:00:00 [facility] SARS-COV-2 COVID-19 2020-08-07 Completed [facility] VACCINE - (MODERNA) 00:00:00 [facility] SARS-COV-2 COVID-19 2020-08-07 Completed [facility] VACCINE - (MODERNA) 00:00:00 [facility] SARS-COV-2 COVID-19 2020-08-07 Completed [facility] VACCINE - (MODERNA) 00:00:00 [facility] SARS-COV-2 COVID-19 2020-08-07 Completed [facility] VACCINE - (MODERNA) 00:00:00 [facility] SARS-COV-2 COVID-19 2020-08-07 Completed [facility] VACCINE - (MODERNA) 00:00:00 [facility] SARS-COV-2 COVID-19 2020-08-07 Completed [facility] VACCINE - (MODERNA) 00:00:00 [facility] SARS-COV-2 COVID-19 2020-08-07 Completed [facility] VACCINE - (MODERNA) 00:00:00 [facility] SARS-COV-2 COVID-19 2020-08-07 Completed [facility] VACCINE - (MODERNA) 00:00:00 [facility] SARS-COV-2 COVID-19 2020-08-07 Completed [facility] VACCINE - (MODERNA) 00:00:00 [facility] SARS-COV-2 COVID-19 2020-08-07 Completed [facility] VACCINE - (MODERNA) 00:00:00 [facility] SARS-COV-2 COVID-19 2020-08-07 Completed [facility] VACCINE - (MODERNA) 00:00:00 [facility] SARS-COV-2 COVID-19 2020-08-07 Completed [facility] VACCINE - (MODERNA) 00:00:00 [facility] SARS-COV-2 COVID-19 2020-08-07 Completed [facility] VACCINE - (MODERNA) 00:00:00 [facility] SARS-COV-2 COVID-19 2020-08-07 Completed [facility] VACCINE - (MODERNA) 00:00:00 [facility] SARS-COV-2 COVID-19 2020-08-07 Completed [facility] VACCINE - (MODERNA) 00:00:00 [facility] SARS-COV-2 COVID-19 2020-08-07 Completed [facility] VACCINE - (MODERNA) 00:00:00 [facility] SARS-COV-2 COVID-19 2020-08-07 Completed [facility] VACCINE - (MODERNA) 00:00:00 [facility] SARS-COV-2 COVID-19 2020-08-07 Completed [facility] VACCINE - (MODERNA) 00:00:00 [facility] SARS-COV-2 COVID-19 2020-08-07 Completed [facility] VACCINE - (MODERNA) 00:00:00 [facility] SARS-COV-2 COVID-19 2020-08-07 Completed [facility] VACCINE - (MODERNA) 00:00:00 [facility] SARS-COV-2 COVID-19 2020-08-07 Completed [facility] VACCINE - (MODERNA) 00:00:00 [facility] SARS-COV-2 COVID-19 2020-08-07 Completed [facility] VACCINE - (MODERNA) 00:00:00 [facility] SARS-COV-2 COVID-19 2020-08-07 Completed [facility] VACCINE - (MODERNA) 00:00:00 [facility] SARS-COV-2 COVID-19 2020-08-07 Completed [facility] VACCINE - (MODERNA) 00:00:00 [facility] SARS-COV-2 COVID-19 2020-08-07 Completed [facility] VACCINE - (MODERNA) 00:00:00 [facility] SARS-COV-2 COVID-19 2020-08-07 Completed [facility] VACCINE - (MODERNA) 00:00:00 [facility] SARS-COV-2 COVID-19 2020-08-07 Completed [facility] VACCINE - (MODERNA) 00:00:00 [facility] SARS-COV-2 COVID-19 2020-08-07 Completed [facility] VACCINE - (MODERNA) 00:00:00 [facility] SARS-COV-2 COVID-19 2020-08-07 Completed [facility] VACCINE - (MODERNA) 00:00:00 [facility] SARS-COV-2 COVID-19 2020-08-07 Completed [facility] VACCINE - (MODERNA) 00:00:00 [facility] SARS-COV-2 COVID-19 2020-08-07 Completed [facility] VACCINE - (MODERNA) 00:00:00 [facility] SARS-COV-2 COVID-19 2020-08-07 Completed [facility] VACCINE - (MODERNA) 00:00:00 [facility] SARS-COV-2 COVID-19 2020-08-07 Completed [facility] VACCINE - (MODERNA) 00:00:00 [facility] SARS-COV-2 COVID-19 2020-08-07 Completed [facility] VACCINE - (MODERNA) 00:00:00 [facility] SARS-COV-2 COVID-19 2020-08-07 Completed [facility] VACCINE - (MODERNA) 00:00:00 [facility] SARS-COV-2 COVID-19 2020-08-07 Completed [facility] VACCINE - (MODERNA) 00:00:00 [facility] SARS-COV-2 COVID-19 2020-08-07 Completed [facility] VACCINE - (MODERNA) 00:00:00 [facility] SARS-COV-2 COVID-19 2020-08-07 Completed [facility] VACCINE - (MODERNA) 00:00:00 [facility] SARS-COV-2 COVID-19 2020-08-07 Completed [facility] VACCINE - (MODERNA) 00:00:00 [facility] SARS-COV-2 COVID-19 2020-08-07 Completed [facility] VACCINE - (MODERNA) 00:00:00 [facility] SARS-COV-2 COVID-19 2020-08-07 Completed [facility] VACCINE - (MODERNA) 00:00:00 [facility] SARS-COV-2 COVID-19 2020-08-07 Completed [facility] VACCINE - (MODERNA) 00:00:00 [facility] SARS-COV-2 COVID-19 2020-08-07 Completed [facility] VACCINE - (MODERNA) 00:00:00 [facility] SARS-COV-2 COVID-19 2020-08-07 Completed [facility] VACCINE - (MODERNA) 00:00:00 [facility] SARS-COV-2 COVID-19 2020-08-07 Completed [facility] VACCINE - (MODERNA) 00:00:00 [facility] SARS-COV-2 COVID-19 2020-08-07 Completed [facility] VACCINE - (MODERNA) 00:00:00 [facility] SARS-COV-2 COVID-19 2020-08-07 Completed [facility] VACCINE - (MODERNA) 00:00:00 [facility] SARS-COV-2 COVID-19 2020-08-07 Completed [facility] VACCINE - (MODERNA) 00:00:00 [facility] SARS-COV-2 COVID-19 2020-08-07 Completed [facility] VACCINE - (MODERNA) 00:00:00 [facility] SARS-COV-2 COVID-19 2020-08-07 Completed [facility] VACCINE - (MODERNA) 00:00:00 [facility] SARS-COV-2 COVID-19 2020-08-07 Completed [facility] VACCINE - (MODERNA) 00:00:00 [facility] SARS-COV-2 COVID-19 2020-08-07 Completed [facility] VACCINE - (MODERNA) 00:00:00 [facility] SARS-COV-2 COVID-19 2020-08-07 Completed [facility] VACCINE - (MODERNA) 00:00:00 [facility] SARS-COV-2 COVID-19 2020-08-07 Completed [facility] VACCINE - (MODERNA) 00:00:00 [facility] SARS-COV-2 COVID-19 2020-06-13 Completed [facility] [...] [place] [facility] SARS-COV-2 COVID-19 Unknown Completed [facility] of MODERNA 12+ YRS [facility] VACCINE Branch SARS-COV-2 COVID-19 Unknown Completed [facility] of MODERNA 12+ YRS [facility] VACCINE [facility] HPV9 Unknown Completed [facility] Influenza Virus Unknown Completed [facility], [facility] dical Preserv and ABX Branch Free 6 MO-64 YRS (FLUCELVAX) SARS-COV-2 COVID-19 Unknown Completed [facility] VACCINE - (MODERNA) [facility] SARS-COV-2 COVID-19 Unknown Completed [facility] VACCINE - (MODERNA) [facility] HPV9 Unknown Completed [facility] Rho (d) Immune Unknown Completed [facility] TDAP Unknown Completed [facility] Rho (d) Immune Unknown Completed [facility] SARS-COV-2 COVID-19 Unknown Completed [facility] of MODERNA 12+ YRS [facility] VACCINE Branch SARS-COV-2 COVID-19 Unknown Completed [facility] of MODERNA 12+ YRS [facility] VACCINE Branch HPV9 Unknown Completed [facility] Influenza Virus Unknown Completed [facility]ine [facility] IM, [facility] dical Preserv and ABX Branch Free 6 MO-64 YRS (FLUCELVAX) SARS-COV-2 COVID-19 Unknown Completed [facility] VACCINE - (MODERNA) [facility] SARS-COV-2 COVID-19 Unknown Completed [facility] VACCINE - (MODERNA) [facility] HPV9 Unknown Completed [facility] Rho (d) Immune Unknown Completed [facility] TDAP Unknown Completed [facility] Rho (d) Immune Unknown Completed [facility] Influenza Virus Unknown Completed [facility] Vaccine [facility] IM, [facility] dical Preserv and ABX Branch Free 6 MO-64 YRS (FLUCELVAX) SARS-COV-2 COVID-19 Unknown Completed [facility] of MODERNA 12+ YRS [facility] VACCINE Branch SARS-COV-2 COVID-19 Unknown Completed [facility] of MODERNA 12+ YRS [facility] VACCINE Branch HPV9 Unknown Completed [facility] Influenza Virus Unknown Completed [facility], [place] [facility] Preserv and ABX [facility] Free 6 MO-64 YRS (FLUCELVAX) SARS-COV-2 COVID-19 Unknown Completed [facility] VACCINE - (MODERNA) [facility] SARS-COV-2 COVID-19 Unknown Completed [facility] VACCINE - (MODERNA) [facility] HPV9 Unknown Completed [facility] Rho (d) Immune Unknown Completed [facility] SARS-COV-2 COVID-19 Unknown Completed [facility] of MODERNA 12+ YRS [facility] ical VACCINE Branch SARS-COV-2 COVID-19 Unknown Completed [facility] of MODERNA 12+ YRS [facility] ical VACCINE Branch HPV9 Unknown Completed [facility] Influenza Virus Unknown Completed [facility] Vaccine Quad , [facility] dical Preserv and ABX Branch Free 6 MO-64 YRS (FLUCELVAX) SARS-COV-2 COVID-19 Unknown Completed [facility] VACCINE - (MODERNA) [facility] SARS-COV-2 COVID-19 Unknown Completed [facility] VACCINE - (MODERNA) [facility] HPV9 Unknown Completed [facility] Rho (d) Immune Unknown Completed [facility] SARS-COV-2 COVID-19 Unknown Completed [facility] of MODERNA 12+ YRS [facility] ical VACCINE Branch SARS-COV-2 COVID-19 Unknown Completed [facility] of MODERNA 12+ YRS [facility] ical VACCINE Branch HPV9 Unknown Completed [facility] Influenza Virus Unknown Completed [facility] Vaccine Quad , [facility] dical Preserv and ABX Branch Free 6 MO-64 YRS (FLUCELVAX) SARS-COV-2 COVID-19 Unknown Completed [facility] VACCINE - (MODERNA) [facility] SARS-COV-2 COVID-19 Unknown Completed [facility] VACCINE - (MODERNA) [facility] HPV9 Unknown Completed [facility] Rho (d) Immune Unknown Completed [facility] SARS-COV-2 COVID-19 Unknown Completed [facility] of MODERNA 12+ YRS [facility] ical VACCINE Branch SARS-COV-2 COVID-19 Unknown Completed [facility] MODERNA 12+ YRS [facility] HPV9 Unknown Completed [facility] Influenza Virus Unknown Completed [facility] Vaccine Quad , [facility] dical Preserv and ABX Branch Free 6 MO-64 YRS (FLUCELVAX) SARS-COV-2 COVID-19 Unknown Completed [facility] VACCINE - (MODERNA) [facility] SARS-COV-2 COVID-19 Unknown Completed [facility] VACCINE - (MODERNA) [facility] HPV9 Unknown Completed [facility] Rho (d) Immune Unknown Completed [facility] SARS-COV-2 COVID-19 Unknown Completed [facility] MODERNA 12+ YRS [place] [facility] SARS-COV-2 COVID-19 Unknown Completed [facility] of MODERNA 12+ YRS [facility] ical VACCINE Branch HPV9 Unknown Completed [facility] Influenza Virus Unknown Completed [facility] Vaccine [facility] IM, [facility] dical Preserv and ABX Branch Free 6 MO-64 YRS (FLUCELVAX) SARS-COV-2 COVID-19 Unknown Completed [facility] VACCINE - (MODERNA) [facility] SARS-COV-2 COVID-19 Unknown Completed [facility] VACCINE - (MODERNA) [facility] HPV9 Unknown Completed [facility] Rho (d) Immune Unknown Completed [facility] SARS-COV-2 COVID-19 Unknown Completed [facility] of MODERNA 12+ YRS [facility] ical VACCINE Branch SARS-COV-2 COVID-19 Unknown Completed [facility] of MODERNA 12+ YRS [facility] ical VACCINE Branch HPV9 Unknown Completed [facility] Influenza Virus Unknown Completed [facility] Vaccine [facility] IM, [facility] dical Preserv and ABX Branch Free 6 MO-64 YRS (FLUCELVAX) SARS-COV-2 COVID-19 Unknown Completed [facility] VACCINE - (MODERNA) [facility] SARS-COV-2 COVID-19 Unknown Completed [facility] VACCINE - (MODERNA) [facility] HPV9 Unknown Completed [facility] Rho (d) Immune Unknown Completed [facility] SARS-COV-2 COVID-19 Unknown Completed [facility] of MODERNA 12+ YRS [facility] ical VACCINE Branch SARS-COV-2 COVID-19 Unknown Completed [facility] of MODERNA 12+ YRS [facility] ical VACCINE Branch HPV9 Unknown Completed [facility] Influenza Virus Unknown Completed [facility]ine [facility] IM, [facility] dical Preserv and ABX Branch Free 6 MO-64 YRS (FLUCELVAX) SARS-COV-2 COVID-19 Unknown Completed [facility] VACCINE - (MODERNA) [facility] SARS-COV-2 COVID-19 Unknown Completed [facility] VACCINE - (MODERNA) [facility] HPV9 Unknown Completed [facility] Rho (d) Immune Unknown Completed [facility] SARS-COV-2 COVID-19 Unknown Completed [facility] MODERNA 12+ YRS [facility] VACCINE [facility] SARS-COV-2 COVID-19 Unknown Completed [facility] of MODERNA 12+ YRS [facility] VACCINE Branch HPV9 Unknown Completed [facility] Influenza Virus Unknown Completed [facility] Vaccine [facility] IM, [facility] dical Preserv and ABX Branch Free 6 MO-64 YRS (FLUCELVAX) SARS-COV-2 COVID-19 Unknown Completed [facility] VACCINE - (MODERNA) [facility] SARS-COV-2 COVID-19 Unknown Completed [facility] VACCINE - (MODERNA) [facility] HPV9 Unknown Completed [facility] Rho (d) Immune Unknown Completed [facility] SARS-COV-2 COVID-19 Unknown Completed [facility] of MODERNA 12+ YRS [facility] VACCINE Branch SARS-COV-2 COVID-19 Unknown Completed [facility] of MODERNA 12+ YRS [facility] VACCINE Branch HPV9 Unknown Completed [facility] Influenza Virus Unknown Completed [facility]ine [facility] IM, [facility] dical Preserv and ABX Branch Free 6 MO-64 YRS (FLUCELVAX) SARS-COV-2 COVID-19 Unknown Completed [facility] VACCINE - (MODERNA) [facility] SARS-COV-2 COVID-19 Unknown Completed [facility] VACCINE - (MODERNA) [facility] HPV9 Unknown Completed [facility] Rho (d) Immune Unknown Completed [facility] TDAP Unknown Completed [facility] Rho (d) Immune Unknown Completed [facility] Influenza Virus Unknown Completed [facility]ine [facility] IM, [facility] dical Preserv and ABX Branch Free 6 MO-64 YRS (FLUCELVAX) SARS-COV-2 COVID-19 Unknown Completed [facility] of MODERNA 12+ YRS [facility] ical VACCINE Branch SARS-COV-2 COVID-19 Unknown Completed [facility] of MODERNA 12+ YRS [facility] VACCINE Branch HPV9 Unknown Completed [facility] Influenza Virus Unknown Completed [facility] Vaccine Quad IM, [facility] dical Preserv and ABX Branch Free 6 MO-64 YRS (FLUCELVAX) SARS-COV-2 COVID-19 Unknown Completed [facility] VACCINE - (MODERNA) [facility] SARS-COV-2 COVID-19 Unknown Completed [facility] VACCINE - (MODERNA) [facility] HPV9 Unknown Completed [facility] Rho (d) Immune Unknown Completed [facility] TDAP Unknown Completed [facility] Rho (d) Immune Unknown Completed [facility] Influenza Virus Unknown Completed [facility]ine [facility] IM, [facility] dical Preserv and ABX Branch Free 6 MO-64 YRS (FLUCELVAX) SARS-COV-2 COVID-19 Unknown Completed [facility] of MODERNA 12+ YRS [facility] VACCINE Branch SARS-COV-2 COVID-19 Unknown Completed [facility] of MODERNA 12+ YRS [facility] VACC[facility] Branch HPV9 Unknown Completed [facility] Influenza Virus Unknown Completed [facility] Vaccine Quad IM, [facility] dical Preserv and ABX Branch Free 6 MO-64 YRS (FLUCELVAX) SARS-COV-2 COVID-19 Unknown Completed [facility] VACCINE - (MODERNA) [facility] SARS-COV-2 COVID-19 Unknown Completed [facility] of VACCINE - (MODERNA) [facility] HPV9 Unknown Completed [facility] Rho (d) Immune Unknown Completed [facility] TDAP Unknown Completed [facility] Rho (d) Immune Unknown Completed [facility] Influenza Virus Unknown Completed [facility] Vaccine [facility] IM, [facility] dical Preserv and ABX Branch Free 6 MO-64 YRS (FLUCELVAX) SARS-COV-2 COVID-19 Unknown Completed [facility] of MODERNA 12+ YRS [facility] VACCINE Branch SARS-COV-2 COVID-19 Unknown Completed [facility] of MODERNA 12+ YRS [facility] VACC[facility] Branch HPV9 Unknown Completed [facility] Influenza Virus Unknown Completed [facility] Vaccine Quad IM, [facility] dical Preserv and ABX Branch Free 6 MO-64 YRS (FLUCELVAX) SARS-COV-2 COVID-19 Unknown Completed [facility] VACCINE - (MODERNA) [facility] SARS-COV-2 COVID-19 Unknown Completed [facility] VACCINE - (MODERNA) [facility] HPV9 Unknown Completed [facility] Rho (d) Immune Unknown Completed [facility] TDAP Unknown Completed [facility] Rho (d) Immune Unknown Completed [facility] Influenza Virus Unknown Completed [facility] Vaccine [facility] IM, [facility] dical Preserv and ABX Branch Free 6 MO-64 YRS (FLUCELVAX) SARS-COV-2 COVID-19 Unknown Completed [facility] of MODERNA 12+ YRS [facility] VACCINE Branch SARS-COV-2 COVID-19 Unknown Completed [facility] of MODERNA 12+ YRS [facility] VACC[facility] HPV9 Unknown Completed [facility] Influenza Virus Unknown Completed [facility] Vaccine Quad IM, [facility] dical Preserv and ABX Branch Free 6 MO-64 YRS (FLUCELVAX) SARS-COV-2 COVID-19 Unknown Completed [facility] VACCINE - (MODERNA) [facility] SARS-COV-2 COVID-19 Unknown Completed [facility] VACCINE - (MODERNA) [facility] HPV9 Unknown Completed [facility] Rho (d) Immune Unknown Completed [facility] TDAP Unknown Completed [facility] Rho (d) Immune Unknown Completed [facility] Influenza Virus Unknown Completed [facility] Vaccine [facility] IM, [facility] dical Preserv and ABX Branch Free 6 MO-64 YRS (FLUCELVAX) SARS-COV-2 COVID-19 Unknown Completed [facility] of MODERNA 12+ YRS [facility] VACCINE Branch SARS-COV-2 COVID-19 Unknown Completed [facility] of MODERNA 12+ YRS [facility] VACC[facility] Branch HPV9 Unknown Completed [facility] Influenza Virus Unknown Completed [facility] Vaccine Quad IM, [facility] dical Preserv and ABX Branch Free 6 MO-64 YRS (FLUCELVAX) SARS-COV-2 COVID-19 Unknown Completed [facility] VACCINE - (MODERNA) [facility] SARS-COV-2 COVID-19 Unknown Completed [facility] VACCINE - (MODERNA) [facility] HPV9 Unknown Completed [facility] Rho (d) Immune Unknown Completed [facility] TDAP Unknown Completed [facility] Rho (d) Immune Unknown Completed [facility] Influenza Virus Unknown Completed [facility] Vaccine [facility] IM, [facility] dical Preserv and ABX Branch Free 6 MO-64 YRS (FLUCELVAX) SARS-COV-2 COVID-19 Unknown Completed [facility] of MODERNA 12+ YRS [facility] ical VACCINE Branch SARS-COV-2 COVID-19 Unknown Completed [facility] of MODERNA 12+ YRS [facility] VACCINE Branch HPV9 Unknown Completed [facility] Influenza Virus Unknown Completed [facility] Vaccine Quad IM, [facility] dical Preserv and ABX Branch Free 6 MO-64 YRS (FLUCELVAX) SARS-COV-2 COVID-19 Unknown Completed [facility] VACCINE - (MODERNA) [facility] SARS-COV-2 COVID-19 Unknown Completed [facility] of VACCINE - (MODERNA) [facility] HPV9 Unknown Completed [facility] Rho (d) Immune Unknown Completed [facility] TDAP Unknown Completed [facility] Rho (d) Immune Unknown Completed [facility] Influenza Virus Unknown Completed [facility] Vaccine Quad IM, [facility] dical Preserv and ABX Branch Free 6 MO-64 YRS (FLUCELVAX) SARS-COV-2 COVID-19 Unknown Completed [facility] of MODERNA 12+ YRS [facility] VACCINE [facility] SARS-COV-2 COVID-19 Unknown Completed [facility] of MODERNA 12+ YRS [facility] VACC[facility] HPV9 Unknown Completed [facility] Influenza Virus Unknown Completed [facility] Vaccine Quad IM, [facility] dical Preserv and ABX Branch Free 6 MO-64 YRS (FLUCELVAX) SARS-COV-2 COVID-19 Unknown Completed [facility] VACCINE - (MODERNA) [facility] SARS-COV-2 COVID-19 Unknown Completed [facility] VACCINE - (MODERNA) [facility] HPV9 Unknown Completed [facility] Rho (d) Immune Unknown Completed [facility] TDAP Unknown Completed [facility] Rho (d) Immune Unknown Completed [facility] Influenza Virus Unknown Completed [facility] Vaccine Quad IM, [facility] dical Preserv and ABX Branch Free 6 MO-64 YRS (FLUCELVAX) SARS-COV-2 COVID-19 Unknown Completed [facility] of MODERNA 12+ YRS [facility] VACCINE Branch SARS-COV-2 COVID-19 Unknown Completed [facility] of MODERNA 12+ YRS [facility] VACCINE Branch HPV9 Unknown Completed [facility] Influenza Virus Unknown Completed [facility] Vaccine Quad IM, [facility] dical Preserv and ABX Branch Free 6 MO-64 YRS (FLUCELVAX) SARS-COV-2 COVID-19 Unknown Completed [facility] VACCINE - (MODERNA) [facility] SARS-COV-2 COVID-19 Unknown Completed Unive rsity of VACCINE - (MODERNA) [facility] HPV9 Unknown Completed [facility] Rho (d) Immune Unknown Completed [facility] TDAP Unknown Completed [facility] Rho (d) Immune Unknown Completed [facility] Influenza Virus Unknown Completed [facility] of Vaccine [facility], [facility] dical Preserv and ABX Branch Free 6 MO-64 YRS (FLUCELVAX) SARS-COV-2 COVID-19 Unknown Completed Unive rsity of MODERNA 12+ YRS [facility] VACCINE Branch SARS-COV-2 COVID-19 Unknown Completed Unive rsity of MODERNA 12+ YRS [facility] VACCINE Branch HPV9 Unknown Completed [facility] Influenza Virus Unknown Completed [facility]it y of Vaccine Quad IM, [facility] dical Preserv and ABX Branch Free 6 MO-64 YRS (FLUCELVAX) SARS-COV-2 COVID-19 Unknown Completed [facility]ive [facility]ity of VACCINE - (MODERNA) [facility] SARS-COV-2 COVID-19 Unknown Completed [facility] of VACCINE - (MODERNA) [facility] HPV9 Unknown Completed [facility] Rho (d) Immune Unknown Completed [facility] TDAP Unknown Completed [facility] Rho (d) Immune Unknown Completed [facility] Influenza Virus Unknown Completed [facility]it y of Vaccine Quad IM, [facility] dical Preserv and ABX Branch Free 6 MO-64 YRS (FLUCELVAX) SARS-COV-2 COVID-19 Unknown Completed Unive rsity of MODERNA 12+ YRS [facility] ical VACCINE Branch SARS-COV-2 COVID-19 Unknown Completed Unive rsity of MODERNA 12+ YRS [facility] VACCINE Branch HPV9 Unknown Completed [facility] Influenza Virus Unknown Completed [facility]it y of Vaccine Quad IM, [facility] dical Preserv and ABX Branch Free 6 MO-64 YRS (FLUCELVAX) SARS-COV-2 COVID-19 Unknown Completed [facility] VACCINE - (MODERNA) [facility] SARS-COV-2 COVID-19 Unknown Completed [facility] of VACCINE - (MODERNA) [facility] HPV9 Unknown Completed [facility] Rho (d) Immune Unknown Completed [facility] TDAP Unknown Completed [facility] Rho (d) Immune Unknown Completed [facility] Influenza Virus Unknown Completed [facility] of Vaccine [facility] IM, [facility] dical Preserv and ABX Branch Free 6 MO-64 YRS (FLUCELVAX) SARS-COV-2 COVID-19 Unknown Completed Unive rsity of MODERNA 12+ YRS [facility] VACCINE Branch SARS-COV-2 COVID-19 Unknown Completed Unive rsity of MODERNA 12+ YRS [facility] VACCINE Branch HPV9 Unknown Completed [facility] Influenza Virus Unknown Completed [facility] of Vaccine [facility] IM, [facility] dical Preserv and ABX Branch Free 6 MO-64 YRS (FLUCELVAX) SARS-COV-2 COVID-19 Unknown Completed [facility] of VACCINE - (MODERNA) [facility] SARS-COV-2 COVID-19 Unknown Completed [facility] of VACCINE - (MODERNA) [facility] HPV9 Unknown Completed [facility] Rho (d) Immune Unknown Completed [facility] Globulin [facility] TDAP Unknown Completed [facility] Rho (d) Immune Unknown Completed [facility] Influenza Virus Unknown Completed [facility] Vaccine [facility] IM, [facility] dical Preserv and ABX Branch Free 6 MO-64 YRS (FLUCELVAX) SARS-COV-2 COVID-19 Unknown Completed Unive rsity of MODERNA 12+ YRS [facility] VACCINE Branch SARS-COV-2 COVID-19 Unknown Completed Unive rsity of MODERNA 12+ YRS [facility] VACCINE Branch HPV9 Unknown Completed [facility] Influenza Virus Unknown Completed [facility] of Vaccine Quad IM, [facility] dical Preserv and ABX Branch Free 6 MO-64 YRS (FLUCELVAX) SARS-COV-2 COVID-19 Unknown Completed [facility] of VACCINE - (MODERNA) [facility] SARS-COV-2 COVID-19 Unknown Completed [facility] of VACCINE - (MODERNA) [facility] HPV9 Unknown Completed [facility] Rho (d) Immune Unknown Completed [facility] TDAP Unknown Completed [facility] Rho (d) Immune Unknown Completed [facility] Influenza Virus Unknown Completed [facility] of Vaccine [facility] IM, [facility] dical Preserv and ABX Branch Free 6 MO-64 YRS (FLUCELVAX) SARS-COV-2 COVID-19 Unknown Completed Unive rsity of MODERNA 12+ YRS [facility] VACCINE Branch SARS-COV-2 COVID-19 Unknown Completed Unive rsity of MODERNA 12+ YRS [facility] VACCINE Branch HPV9 Unknown Completed [facility] Influenza Virus Unknown Completed [facility] of Vaccine Quad IM, [facility] dical Preserv and ABX Branch Free 6 MO-64 YRS (FLUCELVAX) SARS-COV-2 COVID-19 Unknown Completed [facility] of VACCINE - (MODERNA) [facility] SARS-COV-2 COVID-19 Unknown Completed [facility] of VACCINE - (MODERNA) [facility] HPV9 Unknown Completed [facility] Rho (d) Immune Unknown Completed [facility] TDAP Unknown Completed [facility] Rho (d) Immune Unknown Completed [facility] Influenza Virus Unknown Completed [facility] of Vaccine Quad IM, [facility] dical Preserv and ABX Branch Free 6 MO-64 YRS (FLUCELVAX) SARS-COV-2 COVID-19 Unknown Completed Unive rsity of MODERNA 12+ YRS [facility] VACCINE Branch SARS-COV-2 COVID-19 Unknown Completed Unive rsity of MODERNA 12+ YRS [facility] VACCINE Branch HPV9 Unknown Completed [facility] Influenza Virus Unknown Completed [facility] of Vaccine Quad IM, [facility] dical Preserv and ABX Branch Free 6 MO-64 YRS (FLUCELVAX) SARS-COV-2 COVID-19 Unknown Completed [facility]ive [facility] of VACCINE - (MODERNA) [facility] SARS-COV-2 COVID-19 Unknown Completed [facility] of VACCINE - (MODERNA) [facility] HPV9 Unknown Completed [facility] Rho (d) Immune Unknown Completed [facility] TDAP Unknown Completed [facility] Rho (d) Immune Unknown Completed [facility] Influenza Virus Unknown Completed [facility] of Vaccine Quad IM, [facility] dical Preserv and ABX Branch Free 6 MO-64 YRS (FLUCELVAX) SARS-COV-2 COVID-19 Unknown Completed Unive rsity of MODERNA 12+ YRS [facility] VACCINE Branch SARS-COV-2 COVID-19 Unknown Completed Unive rsity of MODERNA 12+ YRS [facility] VACCINE Branch HPV9 Unknown Completed [facility] Influenza Virus Unknown Completed [facility] of Vaccine Quad IM, [facility] dical Preserv and ABX Branch Free 6 MO-64 YRS (FLUCELVAX) SARS-COV-2 COVID-19 Unknown Completed [facility] of VACCINE - (MODERNA) [facility] SARS-COV-2 COVID-19 Unknown Completed [facility] of VACCINE - (MODERNA) [facility] HPV9 Unknown Completed [facility] Rho (d) Immune Unknown Completed [facility] TDAP Unknown Completed [facility] Rho (d) Immune Unknown Completed [facility] Influenza Virus Unknown Completed [facility] of Vaccine [facility] IM, [facility] dical Preserv and ABX Branch Free 6 MO-64 YRS (FLUCELVAX) SARS-COV-2 COVID-19 Unknown Completed [facility]ive rsity of MODERNA 12+ YRS [facility] VACCINE [facility] SARS-COV-2 COVID-19 Unknown Completed Unive rsity of MODERNA 12+ YRS [facility] VACCINE Branch HPV9 Unknown Completed [facility] Influenza Virus Unknown Completed [facility] of Vaccine Quad IM, [facility] dical Preserv and ABX Branch Free 6 MO-64 YRS (FLUCELVAX) SARS-COV-2 COVID-19 Unknown Completed [facility]ive [facility] of VACCINE - (MODERNA) [facility] SARS-COV-2 COVID-19 Unknown Completed [facility]ive [facility]ity of VACCINE - (MODERNA) [facility] HPV9 Unknown Completed [facility] Rho (d) Immune Unknown Completed [facility] TDAP Unknown Completed [facility] Rho (d) Immune Unknown Completed [facility] Influenza Virus Unknown Completed [facility] of Vaccine Quad IM, [facility] dical Preserv and ABX Branch Free 6 MO-64 YRS (FLUCELVAX) SARS-COV-2 COVID-19 Unknown Completed Unive rsity of MODERNA 12+ YRS [facility] ical VACCINE Branch SARS-COV-2 COVID-19 Unknown Completed Unive rsity of MODERNA 12+ YRS [facility] VACCINE Branch HPV9 Unknown Completed [facility] Influenza Virus Unknown Completed [facility] of Vaccine Quad IM, [facility] dical Preserv and ABX Branch Free 6 MO-64 YRS (FLUCELVAX) SARS-COV-2 COVID-19 Unknown Completed [facility] of VACCINE - (MODERNA) [facility] SARS-COV-2 COVID-19 Unknown Completed [facility] of VACCINE - (MODERNA) [facility] HPV9 Unknown Completed [facility] Rho (d) Immune Unknown Completed [facility] TDAP Unknown Completed [facility] Rho (d) Immune Unknown Completed [facility] Influenza Virus Unknown Completed [facility] of Vaccine Quad IM, [facility] dical Preserv and ABX Branch Free 6 MO-64 YRS (FLUCELVAX) SARS-COV-2 COVID-19 Unknown Completed Unive rsity of MODERNA 12+ YRS [facility] VACCINE Branch SARS-COV-2 COVID-19 Unknown Completed Unive rsity of MODERNA 12+ YRS [facility] VACCINE Branch HPV9 Unknown Completed [facility] Influenza Virus Unknown Completed [facility] of Vaccine Quad IM, [facility] dical Preserv and ABX Branch Free 6 MO-64 YRS (FLUCELVAX) SARS-COV-2 COVID-19 Unknown Completed [facility]ive [facility]ity of VACCINE - (MODERNA) [facility] SARS-COV-2 COVID-19 Unknown Completed [facility] of VACCINE - (MODERNA) [facility] HPV9 Unknown Completed [facility] Rho (d) Immune Unknown Completed [facility] TDAP Unknown Completed [facility] Rho (d) Immune Unknown Completed [facility] Influenza Virus Unknown Completed [facility] of Vaccine Quad IM, [facility] dical Preserv and ABX Branch Free 6 MO-64 YRS (FLUCELVAX) SARS-COV-2 COVID-19 Unknown Completed Unive rsity of MODERNA 12+ YRS [facility] VACCINE Branch SARS-COV-2 COVID-19 Unknown Completed Unive rsity of MODERNA 12+ YRS [facility] VACCINE Branch HPV9 Unknown Completed [facility] Influenza Virus Unknown Completed [facility] of Vaccine Quad IM, [facility] dical Preserv and ABX Branch Free 6 MO-64 YRS (FLUCELVAX) SARS-COV-2 COVID-19 Unknown Completed [facility]ity of VACCINE - (MODERNA) [facility] SARS-COV-2 COVID-19 Unknown Completed [facility] of VACCINE - (MODERNA) [facility] HPV9 Unknown Completed [facility] Rho (d) Immune Unknown Completed [facility] TDAP Unknown Completed [facility] Rho (d) Immune Unknown Completed [facility] Influenza Virus Unknown Completed [facility] of Vaccine Quad IM, [facility] dical Preserv and ABX Branch Free 6 MO-64 YRS (FLUCELVAX) SARS-COV-2 COVID-19 Unknown Completed Unive rsity of MODERNA 12+ YRS [facility] VACCINE Branch SARS-COV-2 COVID-19 Unknown Completed Unive rsity of MODERNA 12+ YRS [facility] VACCINE Branch HPV9 Unknown Completed [facility] Influenza Virus Unknown Completed [facility] of Vaccine Quad IM, [facility] dical Preserv and ABX Branch Free 6 MO-64 YRS (FLUCELVAX) SARS-COV-2 COVID-19 Unknown Completed [facility]ive [facility]ity of VACCINE - (MODERNA) [facility] SARS-COV-2 COVID-19 Unknown Completed [facility] of VACCINE - (MODERNA) [facility] HPV9 Unknown Completed [facility] Rho (d) Immune Unknown Completed [facility] TDAP Unknown Completed [facility] Rho (d) Immune Unknown Completed [facility] Influenza Virus Unknown Completed [facility] of Vaccine Quad IM, [facility] dical Preserv and ABX Branch Free 6 MO-64 YRS (FLUCELVAX) Rho (d) Immune Unknown Completed [facility] Vital Signs Vital Name Observation Time Observation Value Comments Source Systolic blood 2023-03-07 13:31:00 120 mm[Hg] Univer [facility]ity of pressure [facility] Diastolic blood 2023-03-07 13:31:00 78 mm[Hg] Unive rsity of pressure [facility] Heart rate 2023-03-07 13:31:00 77 /min [facility] Body temperature 2023-03-07 13:31:00 36.28 Tiffanie [facility] ers[facility] of [facility] Respiratory rate 2023-03-07 13:31:00 18 /min [facility] Oxygen saturation in 2023-03-07 13:31:00 97 /min University of Arterial blood by [employer] Pulse oximetry Branch Body height 2023-03-05 17:16:00 160 cm [facility] Body weight 2023-03-05 17:16:00 92.987 kg [facility] BMI 2023-03-05 17:16:00 36.31 kg/m2 [facility] Systolic blood 2023-02-20 15:02:00 131 mm[Hg] Univer [facility]ity of pressure [facility] Diastolic blood 2023-02-20 15:02:00 83 mm[Hg] [facility]ive rs[facility] of pressure [facility] Heart rate 2023-02-20 15:02:00 95 /min [facility] Body temperature 2023-02-20 15:02:00 35.89 Tiffanie [facility] Respiratory rate 2023-02-20 15:02:00 18 /min [facility] Body height 2023-02-20 15:02:00 160 cm [facility] Body weight 2023-02-20 15:02:00 91.445 kg [facility] BMI 2023-02-20 15:02:00 35.71 kg/m2 [facility] Heart rate 2023-02-16 21:16:00 71 /min [facility] Oxygen saturation in 2023-02-16 21:16:00 100 /min [facility] of Arterial blood by [employer] Pulse oximetry Branch Systolic blood 2023-02-16 20:30:00 97 mm[Hg] Univer sity of pressure [facility] Diastolic blood 2023-02-16 20:30:00 51 mm[Hg] [facility]ive rsity of pressure [facility] Body temperature 2023-02-16 19:18:00 37 Tiffanie [facility] Respiratory rate 2023-02-16 19:18:00 18 /min [facility] Body height 2023-02-16 19:18:00 160 cm [facility] Body weight 2023-02-16 19:18:00 91.627 kg [facility] BMI 2023-02-16 19:18:00 35.78 kg/m2 [facility] Systolic blood 2023-02-13 15:58:00 113 mm[Hg] [facility]iver [facility] of pressure [facility] Diastolic blood 2023-02-13 15:58:00 72 mm[Hg] [facility] of pressure [facility] Heart rate 2023-02-13 15:58:00 81 /min [facility] Body temperature 2023-02-13 15:58:00 36.5 T[place]anie [facility] Respiratory rate 2023-02-13 15:58:00 17 /min [facility] Body height 2023-02-13 15:58:00 165.1 cm [facility] Body weight 2023-02-13 15:58:00 91.853 kg [facility] BMI 2023-02-13 15:58:00 33.70 kg/m2 [facility] Systolic blood 2023-02-05 20:57:00 130 mm[Hg] [facility]iver [facility] of pressure [facility] Diastolic blood 2023-02-05 20:57:00 78 mm[Hg] [facility] of pressure [facility] Heart rate 2023-02-05 20:57:00 100 /min [facility] Body temperature 2023-02-05 20:57:00 35.72 [place] [facility] Respiratory rate 2023-02-05 20:57:00 18 /min [facility] Body height 2023-02-05 20:57:00 165.1 cm [facility] Body weight 2023-02-05 20:57:00 91.808 kg [facility] BMI 2023-02-05 20:57:00 33.68 kg/m2 [facility] Systolic blood 2023-01-23 18:24:00 121 mm[Hg] Univer [facility]ity of pressure [facility] Diastolic blood 2023-01-23 18:24:00 67 mm[Hg] [facility]ive rsity of pressure [facility] Heart rate 2023-01-23 18:24:00 91 /min [facility] Body temperature 2023-01-23 18:24:00 36.78 Tiffanie [facility] Respiratory rate 2023-01-23 18:24:00 18 /min [facility] Body height 2023-01-23 18:24:00 165.1 cm [facility] Body weight 2023-01-23 18:24:00 90.992 kg [facility] BMI 2023-01-23 18:24:00 33.38 kg/m2 [facility] Systolic blood 2023-01-10 14:37:00 120 mm[Hg] Univer sity of pressure [facility] Diastolic blood 2023-01-10 14:37:00 61 mm[Hg] Unive rsity of pressure [facility] Heart rate 2023-01-10 14:37:00 95 /min [facility] Body temperature 2023-01-10 14:37:00 36.11 T[place]anie [facility] Respiratory rate 2023-01-10 14:37:00 17 /min [facility] Body height 2023-01-10 14:37:00 165.1 cm [facility] Body weight 2023-01-10 14:37:00 91.082 kg [facility] BMI 2023-01-10 14:37:00 33.41 kg/m2 [facility] Systolic blood 2022-12-21 14:21:00 103 mm[Hg] Univer [facility]ity of pressure [facility] Diastolic blood 2022-12-21 14:21:00 58 [...] 2022-12-21 14:21:00 32.60 kg/m2 [facility] Systolic blood 2022-12-12 19:09:00 110 mm[Hg] Univer sity of pressure [facility] Diastolic blood 2022-12-12 19:09:00 62 mm[Hg] Unive rsity of pressure [facility] Heart rate 2022-12-12 19:09:00 84 /min [facility] Body temperature 2022-12-12 19:09:00 36 T[place] [facility] Respiratory rate 2022-12-12 19:09:00 18 /min [facility] Body height 2022-12-12 19:09:00 165.1 cm [facility] Body weight 2022-12-12 19:09:00 88.587 kg [facility] BMI 2022-12-12 19:09:00 32.50 kg/m2 [facility] Systolic blood 2022-12-07 15:05:00 120 mm[Hg] Univer [facility]ity of pressure [facility] Diastolic blood 2022-12-07 15:05:00 64 mm[Hg] Unive rsity of pressure [facility] Heart rate 2022-12-07 15:05:00 85 /min [facility] Body temperature 2022-12-07 15:05:00 36.33 Tiffanie [facility] Respiratory rate 2022-12-07 15:05:00 20 /min [facility] Body height 2022-12-07 15:05:00 165.1 cm [facility] Body weight 2022-12-07 15:05:00 89.585 kg [facility] BMI 2022-12-07 15:05:00 32.87 kg/m2 [facility] Systolic blood 2022-11-16 14:49:00 126 mm[Hg] Univer sity of pressure [facility] Diastolic blood 2022-11-16 14:49:00 67 mm[Hg] Unive rsity of pressure [facility] Heart rate 2022-11-16 14:49:00 91 /min [facility] Body temperature 2022-11-16 14:49:00 35.72 [place] [facility] Respiratory rate 2022-11-16 14:49:00 18 /min [facility] Body height 2022-11-16 14:49:00 165.1 cm [facility] Body weight 2022-11-16 14:49:00 86.546 kg [facility] BMI 2022-11-16 14:49:00 31.75 kg/m2 [facility] Systolic blood 2022-10-26 20:50:00 114 mm[Hg] Univer [facility]ity of pressure [facility] Diastolic blood 2022-10-26 20:50:00 62 mm[Hg] Unive rsity of pressure [facility] Heart rate 2022-10-26 20:50:00 75 /min [facility] Body temperature 2022-10-26 20:50:00 36.06 T[place]anie [facility] Respiratory rate 2022-10-26 20:50:00 18 /min [facility] Body height 2022-10-26 20:50:00 165.1 cm [facility] Body weight 2022-10-26 20:50:00 86.093 kg [facility] BMI 2022-10-26 20:50:00 31.58 kg/m2 [facility] Systolic blood 2022-09-18 20:35:00 124 mm[Hg] Univer sity of pressure [facility] Diastolic blood 2022-09-18 20:35:00 71 mm[Hg] Unive rsity of pressure [facility] Heart rate 2022-09-18 20:35:00 78 /min [facility] Body temperature 2022-09-18 20:35:00 36.39 Tiffanie [facility] Respiratory rate 2022-09-18 20:35:00 18 /min [facility] Body height 2022-09-18 20:35:00 165.1 cm [facility] Body weight 2022-09-18 20:35:00 79.465 kg [facility] BMI 2022-09-18 20:35:00 29.15 kg/m2 [facility] Systolic blood 2022-08-21 20:20:00 115 mm[Hg] Univer sity of pressure [facility] Diastolic blood 2022-08-21 20:20:00 66 mm[Hg] Unive rsity of pressure [facility] Heart rate 2022-08-21 20:20:00 80 /min [facility] Body temperature 2022-08-21 20:20:00 35.61 [place] [facility] Respiratory rate 2022-08-21 20:20:00 18 /min [facility] Body height 2022-08-21 20:20:00 165.1 cm [facility] Body weight 2022-08-21 20:20:00 77.701 kg [facility] BMI 2022-08-21 20:20:00 28.51 kg/m2 [facility] Systolic blood 2022-07-24 18:20:00 120 mm[Hg] Univer sity of pressure [facility] Diastolic blood 2022-07-24 18:20:00 66 mm[Hg] Unive rsity of pressure [facility] Heart rate 2022-07-24 18:20:00 60 /min [facility] Body temperature 2022-07-24 18:20:00 36.28 T[place] [facility] Respiratory rate 2022-07-24 18:20:00 18 /min [facility] Body height 2022-07-24 18:20:00 165.1 cm [facility] Body weight 2022-07-24 18:20:00 77.021 kg [facility] BMI 2022-07-24 18:20:00 28.26 kg/m2 [facility] Systolic blood 2022-04-11 22:15:00 120 mm[Hg] Univer sity of pressure [facility] Diastolic blood 2022-04-11 22:15:00 73 mm[Hg] Unive rsity of pressure [facility] Heart rate 2022-04-11 22:15:00 68 /min [facility] Body height 2022-04-11 22:15:00 167.6 cm [facility] Body weight 2022-04-11 22:15:00 81.647 kg [facility] BMI 2022-04-11 22:15:00 29.05 kg/m2 [facility] Oxygen saturation in 2022-04-11 22:15:00 99 /min [facility] Arterial blood by [place] [employer] Pulse oximetry Branch Systolic blood 2022-03-28 21:22:00 116 mm[Hg] Univer sity of pressure [facility] Diastolic blood 2022-03-28 21:22:00 71 mm[Hg] Unive rsity of pressure [facility] Heart rate 2022-03-28 21:22:00 70 /min [facility] Body temperature 2022-03-28 21:22:00 36.83 T[place] [facility] Respiratory rate 2022-03-28 21:22:00 16 /min [facility] Body height 2022-03-28 21:22:00 162.6 cm [facility] Body weight 2022-03-28 21:22:00 77.656 kg [facility] BMI 2022-03-28 21:22:00 29.39 kg/m2 [facility] Oxygen saturation in 2022-03-28 21:22:00 99 /min University of Arterial blood by [employer] senait Pulse oximetry Branch Systolic blood 2022-03-27 16:40:00 116 mm[Hg] Univer sity of pressure [facility] Diastolic blood 2022-03-27 16:40:00 69 mm[Hg] Unive rsity of pressure [facility] Heart rate 2022-03-27 16:40:00 74 /min [facility] [place] [facility] Body temperature 2022-03-27 16:40:00 37.11 Tiffanie Univ ersity of [facility] Respiratory rate 2022-03-27 16:40:00 18 /min Univ ers[facility] of [facility] Body height 2022-03-27 16:40:00 162.6 cm [facility] Body weight 2022-03-27 16:40:00 77.565 kg [facility] BMI 2022-03-27 16:40:00 29.35 kg/m2 Universi ty of [facility] Systolic blood 2022-03-24 00:54:08 122 mm[Hg] Univer sity of pressure [facility] Diastolic blood 2022-03-24 00:54:08 77 mm[Hg] Unive rsity of pressure [facility] Heart rate 2022-03-24 00:54:08 85 /min Universi ty of [facility] Body temperature 2022-03-24 00:54:08 36.39 Tiffanie Univ ersity of [facility] Respiratory rate 2022-03-24 00:54:08 18 /min Univ ersity of [facility] Oxygen saturation in 2022-03-24 00:54:08 100 /min [facility] Arterial blood by [facility] Pulse oximetry Branch Body weight 2022-03-23 19:30:00 81.647 kg [facility] [place] [facility] BMI 2022-03-23 19:30:00 29.95 kg/m2 [facility] Systolic blood 2022-03-23 18:51:00 112 mm[Hg] Univer sity of pressure [facility] Diastolic blood 2022-03-23 18:51:00 70 mm[Hg] Unive rsity of pressure [facility] Heart rate 2022-03-23 18:51:00 2 /min Universi ty of [facility] Body temperature 2022-03-23 18:51:00 37.22 Tiffanie Univ ersity of [facility] Respiratory rate 2022-03-23 18:51:00 17 /min Univ ersity of [facility] Body weight 2022-03-23 18:51:00 72.576 kg [facility]i [facility] BMI 2022-03-23 18:51:00 26.63 kg/m2 [facility] Oxygen saturation in 2022-03-23 18:51:00 100 /min University of Arterial blood by [facility] Pulse oximetry Branch Systolic blood 2022-03-15 20:07:00 108 mm[Hg] Univer sity of pressure [facility] Diastolic blood 2022-03-15 20:07:00 69 mm[Hg] Unive rsity of pressure [facility] Heart rate 2022-03-15 20:07:00 73 /min [facility] Body temperature 2022-03-15 20:07:00 37.06 Tiffanie Univ [facility] Respiratory rate 2022-03-15 20:07:00 18 /min Univ [facility] Body height 2022-03-15 20:07:00 165.1 cm [facility] Body weight 2022-03-15 20:07:00 78.019 kg [facility] BMI 2022-03-15 20:07:00 28.62 kg/m2 [facility] Systolic blood 2022-02-22 21:55:00 117 mm[Hg] Univer sity of pressure [facility] Diastolic blood 2022-02-22 21:55:00 71 mm[Hg] Unive rsity of pressure [facility] Heart rate 2022-02-22 21:55:00 69 /min [facility] Body temperature 2022-02-22 21:55:00 36.67 Tiffanie Univ [facility] Respiratory rate 2022-02-22 21:55:00 18 /min Univ [facility] Body height 2022-02-22 21:55:00 165.1 cm [facility] Body weight 2022-02-22 21:55:00 77.111 kg [facility] BMI 2022-02-22 21:55:00 28.29 kg/m2 [facility] Systolic blood 2022-01-24 20:48:00 113 mm[Hg] Univer sity of pressure [facility] Diastolic blood 2022-01-24 20:48:00 69 mm[Hg] Unive rsity of pressure [facility] Heart rate 2022-01-24 20:48:00 74 [...] Branch Respiratory rate 2021-12-30 15:10:00 18 /min Univ [facility] Body height 2021-12-30 15:10:00 160 cm [facility] Body weight 2021-12-30 15:10:00 75.841 kg [facility] BMI 2021-12-30 15:10:00 29.62 kg/m2 [facility] Procedures Procedure Date / Time Performing Clinician Source Performed CREATININE 2023-03-06 23:43:00 Gigi [facility] CBC WITH DIFF 2023-03-06 10:15:00 Bonita [facility] HB -MATERNAL 2023-03-06 10:15:00 Gigi [facility] HEMORRHAGE SCREEN [facility] VENOUS CORD GAS 2023-03-06 02:21:00 Viji Cevallos [facility] CENTRAL NEURAXIAL BLOCK 2023-03-05 20:52:[address] [facility] CBC WITH DIFF 2023-03-05 17:35:00 Mart Viji [facility] HEPATITIS B SURFACE 2023-03-05 17:35:00 Viji Cevallos [facility] ANTI-D R/O PANEL 2023-03-05 17:35:00 Rustam Yu [facility] HB ABO GROUPING 2023-03-05 17:35:00 Viji Cevallos [facility] RHO (D) IMMUNE GLOBULIN 2023-03-05 17:35:[facility]IGM 2023-03-05 17:35:00 Viji Cevallos [facility] POCT URINALYSIS 2023-02-20 15:06:00 Shanthi Bauer [facility] ADC ONLY - FERN TEST 2023-02-16 21:02:00 Adum, Rosibel [facility] EXTRA TUBE URINE 2023-02-16 19:37:00 Adum, Rosibel [facility] ASSIGNMENT OF BENEFITS 2023-02-16 18:55:24 Doctor Unassigned, No General acute hospital CONSENT/REFUSAL FOR 2023-02-16 18:51:28 Doctor Unassigned, No [facility] DIAGNOSIS AND TREATMENT [facility] DME/SUPPLY JUSTIFICATION 2023-02-13 05:01:00 Doctor Unassigned, No General acute hospital POCT URINALYSIS 2023-02-13 00:00:00 Shanthi Bauer [facility] POCT URINALYSIS 2023-02-05 20:59:00 Shanthi Bauer [facility] POCT URINALYSIS 2023-01-23 18:27:00 Shanthi Bauer [facility] FLU VACC ([id number]), 6 2023-01-10 15:20:48 Shanthi Bauer [facility] MO-64 YRS, .5ML, , Medical Bra [facility] QUAD (FLUCELVAX) ASSIGNMENT OF BENEFITS 2023-01-10 14:19:55 Doctor Unassigned, No General acute hospital POCT URINALYSIS 2023-01-10 00:00:00 Shanthi Bauer [facility] HB ABO GROUPING 2022-12-21 15:25:00 Shanthi Bauer [facility] SYPHILIS IGG/IGM 2022-12-21 15:25:00 Shanthi Bauer [facility] TDAP VACCINE, >11 YRS, 2022-12-21 14:48:46 Shanthi Bauer [facility] POCT URINALYSIS 2022-12-21 00:00:00 Shanthi Bauer [facility] SECOND AND THIRD 2022-12-12 20:43:00 Shanthi Bauer [facility] TRIMESTER ULTRASOUND Medical Bra [facility] POCT URINALYSIS 2022-12-12 19:12:00 Shanthi Bauer [facility] POCT URINALYSIS 2022-12-07 00:00:00 Shanthi Bauer [facility] POCT URINALYSIS 2022-11-16 14:50:00 Shanthi Bauer [facility] MISCELLANEOUS SENDOUT 2022-11-10 05:01:00 Doctor Unassigned, No [facility] SECOND AND THIRD 2022-10-31 20:25:00 Shanthi Bauer [facility] TRIMESTER ULTRASOUND [facility] SECOND AND THIRD 2022-10-31 20:20:00 Shanthi Bauer [facility] TRIMESTER ULTRASOUND [facility] POCT URINALYSIS 2022-10-26 20:52:00 Shanthi Bauer [facility] POCT URINALYSIS 2022-09-18 20:36:00 Shanthi Bauer [facility] POCT URINALYSIS 2022-08-21 20:21:00 Shanthi Bauer [facility] FLU VACC ([id number]), 6 2022-07-24 19:22:36 Shanthi Bauer [facility] MO-64 YRS, .5ML, IM, [facility] QUAD (FLUCELVAX) POCT URINALYSIS W/O 2022-07-24 18:12:00 Shanthi Bauer [facility] SPECIFIC GRAVITY [facility] POCT TEST 2022-07-24 18:11:00 Shanthi Bauer [facility] REPORT OF 2022-07-24 05:01:00 Doctor Unassigned, No [facility]ENEFITS 2022-07-10 14:33:07 Doctor Unassigned, No General acute hospital US OB TRANSVAGINAL 2022-03-28 22:39:19 AdumRosibel [facility] GARDASIL 9 (HPV 9V) 2022-03-28 22:12:39 AdumRosibel [facility] VACCINE [facility] ULTRASOUND 2022-03-28 06:01:00 Doctor Unassigned, No General acute hospital PHYSICIAN ORDERS 2022-03-27 06:01:00 Doctor Unassigned, No Unive [facility] US FIRST 2022-03-24 20:40:00 [facility] TRIMESTER LESS THAN 14 Medical B ranch WEEKS WITH TRANSVAGINAL CT CHEST PULMONARY 2022-03-23 22:38:10 Michelle, K Jeanine [facility] ANGIOGRAM Medical Branch D-DIMER 2022-03-23 20:59:00 Susan Martinez [facility] MAGNESIUM 2022-03-23 20:20:00 Susan Martinez [facility] TROPONIN I 2022-03-23 20:20:00 Susan Martinez [facility] COMP. METABOLIC PANEL 2022-03-23 20:20:00 Susan Martinez [facility] ([id number]) [facility] CBC WITH DIFF 2022-03-23 20:20:[address] [facility] URINALYSIS 2022-03-23 20:20:[address] [facility] N-TERMINAL PRO-BNP 2022-03-23 20:20:00 Susan Martinez Jeanine [facility] CONSENT/REFUSAL FOR 2022-03-23 19:04:36 Doctor Unassigned, No [facility] POCT URINALYSIS W/O 2022-03-15 20:09:00 Amena Betancourt [facility] US FIRST 2022-03-03 20:49:57 Amena Betancourt [facility] TRIMESTER LESS THAN 14 Medical B ranch WEEKS WITH TRANSVAGINAL GC & CHLAMYDIA AMPLIFIED 2022-02-22 22:34:00 Amena Betancourt [facility] TRICHOMONAS AMPLIFIED 2022-02-22 22:34:00 Amena Betanc[facility] FLU VACC (), 6 2022-02-22 22:18:33 Amena Betancourt [facility] MO-64 YRS, .5ML, IM, Medical Bra [facility] QUAD (FLUCELVAX) POCT URINALYSIS W/O 2022-02-22 00:00:00 Amena Betancourt [facility] ASSIGNMENT OF BENEFITS 2022-02-18 14:49:18 Doctor Unassigned, No General acute hospital POCT TEST 2022-01-06 18:43:00 Jareth Olmedo [facility] GARDASIL 9 (HPV 9V) 2021-12-30 16:46:05 Jareth Olmedo [facility] VACCINE [facility] POCT TEST 2021-12-30 15:29:00 Jareth Olmedo [facility] Encounters Start End Encounter Admission Attending Care Care Encounter Source Date/Time Date/Time Type Type Clinicians Facility Department ID 2021-07-09 Outpatient [facility] [id number] [place] 00:38:[address] [facility] 2023-03-05 2023-03-07 Inpatient P RUSTAM YU [facility] JAGRUTI [id number] Univers 09:58:00 13:07:00 RUSTAM YU [facility] 2023-03-05 2023-03-07 Hospital PHILIP Yu 1.2.840.114 [id number] Univers 09:58:00 13:07:00 Encounter Rustam COOK 350.1.13.10 ity of [facility] 4.2.7.2.686 Anil as [id number] [facility] 134 [address] 2023-03-05 2023-03-05 Anesthesia Carole Ramirez 1.2.84 0.114 [id number] Univers 14:43:00 22:15:00 Event Paula Izaguirre 350 .1.13.10 ity of [facility] 4.2.7.2.686 Anil as [id number] [facility] 132 [address] 2023-02-27 2023-02-27 Outpatient R LIZETTE [facility] [id number] [facility] 09:00:00 09:00:00 SHANTHI hollingsworth f [facility] 2023-02-27 2023-02-27 Telephone LizetteRUST 1.2.840.114 [id number] Univers 00:00:00 00:00:00 Shanthi Freeman ANGLE BENDER 350.1.13.10 ity [facility] 4.2.7.2.686 Anil as MATERNAL [id number] Med ical & CHILD [address] [place] [address] 2023-02-20 2023-02-20 Outpatient R [facility] [id number] Univers 09:15:00 09:29:39 SANIYA ity [facility] 2023-02-20 2023-02-20 Routine [facility] 1.2.840.114 [id number] Univers 09:15:00 09:29:39 Saniya A ANGLE BENDER 350.1.13.10 ity of [facility] 4.2.7.2.686 Anil as MATERNAL [id number] [facility] & [address] 2023-02-19 2023-02-19 Telephone [facility] 1.2.840.114 [id number] Univers 00:00:00 00:00:00 Shanthi C ANGLE BENDER 350.1.13.10 ity of [facility] 4.2.7.2.686 Anil as MATERNAL [id number] [address] 2023-02-16 2023-02-16 Outpatient X ADUM, [facility] JAGRUTI [id number] Univers 14:02:00 17:10:00 ROSIBEL canas [facility] 2023-02-16 2023-02-16 [facility] 1.2.548.472 [id number] Univers 14:02:00 17:10:00 Rosibel BRADLEY 350.1.13.10 ity [facility] 4.2.7.2.686 [place] [facility] [id number] [address] 2023-02-16 2023-02-16 Refill [facility] 1.2.738.077 [id number] Univers 00:00:00 00:00:00 Shanthi Freeman ANGLE BENDER 350.1.13.10 ity of [facility] 4.2.7.2.686 Anil as MATERNAL [id number] [address] 2023-02-16 2023-02-16 Nurse Earl PALACIOS 1.2.840.114 [id number] Univers 00:00:00 00:00:00 Triage dIram 350.1.13.10 ity of [facility] 4.2.7.2.686 Anil as [id number] [facility] 019 [address]quin[address] 2023-02-14 2023-02-14 Telephone [facility] 1.2.840.114 [id number] Univers 00:00:00 00:00:00 Shanthi C ANGLE BENDER 350.1.13.10 ity of REGIONAL 4.2.7.2.686 Anil as MATERNAL [id number] [facility] CHILD [address] [place] [address] 2023-02-14 2023-02-14 Refill [facility] 1.2.728.625 [id number] Univers 00:00:00 00:00:00 Shanthi C ANGLE BENDER 350.1.13.10 ity of REGIONAL 4.2.7.2.686 Anil as MATERNAL [id number] [address] 2023-02-13 2023-02-13 [facility] [id number] Univers 10:30:00 11:21:12 SHANTHI canas o [facility] 2023-02-13 2023-02-13 Routine [facility] 1.2.494.402 [id number] Univers 10:30:00 11:21:12 Shanthi C ANGLE BENDER 350.1.13.10 ity of Visit REGIONAL 4.2.7.2.686 Anil as MATERNAL [id number] [facility] & [address] 2023-02-13 2023-02-13 Orders Doctor PHILIP 1.2.840.114 [id number] Univers 00:00:00 00:00:00 Only Unassigned, JOYCE 350.1.13.10 ity of [place] [facility] 4.2.7.2.686 Anil as [id number] [facility] 009 Dequincy 2023-02-06 2023-02-06 [facility] [id number] Univers 11:00:00 11:00:00 SHANTHI canas o f [facility] 2023-02-05 2023-02-05 [facility] [id number] Univers 16:00:00 16:12:16 SHANTHI canas o f [facility] 2023-02-05 2023-02-05 Routine Akinsipe, [facility] 1.2.791.076 [id number] Univers 16:00:00 16:12:16 Shanthi C ANGLE BENDER 350.1.13.10 ity of Visit REGIONAL 4.2.7.2.686 Anil as MATERNAL [id number] [facility] ical & CHILD [address] [place] [address] 2023-01-24 2023-01-24 Outpatient R AKINSIPE, [facility] [id number] Univers 10:30:00 10:30:00 SHANTHI ity o [facility] 2023-01-23 2023-01-23 Outpatient R AKINSIPE, [facility] [id number] Univers 14:00:00 14:00:15 SHANTHI ity o f [facility] 2023-01-23 2023-01-23 Routine Akinsipe, [facility] 1.2.567.670 [id number] Univers 14:00:00 14:00:15 Shanthi C ANGLE BENDER 350.1.13.10 ity of Visit REGIONAL 4.2.7.2.686 Anil as MATERNAL [id number] [facility] CHILD [address] [place] [address] 2023-01-19 2023-01-19 [facility] 1.2.531.812 [id number] Univers 00:00:00 00:00:00 Secure Msg Shanthi C ANGLE BENDER 350.1.13.10 ity of REGIONAL 4.2.7.2.686 Anil as MATERNAL [id number] [facility] ical & CHILD [address] [place] [address] 2023-01-10 2023-01-10 Outpatient R AKINSIPE, [facility] [id number] Univers 10:30:00 10:58:10 SHANTHI ity o [facility] 2023-01-10 2023-01-10 Routine Akinsipe, [facility] 1.2.123.449 [id number] Univers 10:30:00 10:58:10 Shanthi C ANGLE BENDER 350.1.13.10 ity of Visit REGIONAL 4.2.7.2.686 Anil as MATERNAL [id number] Med ical & CHILD [facility] 2023-01-10 2023-01-10 Orders Doctor PHILIP 1.2.840.114 [id number] Univers 00:00:00 00:00:00 Only Unassigned, JOYCE 350.1.13.10 ity of [place] [facility] 4.2.7.2.686 Anil as [id number] [address] 2023-01-04 2023-01-04 Outpatient R AKINSIPE, [facility] [id number] Univers 10:15:00 10:15:00 SHANTHI ity o f [facility] 2022-12-21 2022-12-21 Outpatient R AKINSIPE, [facility] [id number] Univers 09:45:00 10:30:23 SHANTHI ity o f [facility] 2022-12-21 2022-12-21 Routine [facility] 1.2.452.880 [id number] Univers 09:45:00 10:30:23 Shanthi C ANGLE BENDER 350.1.13.10 ity of Visit [facility] 4.2.7.2.686 Anil as MATERNAL [id number] [facility] ical & CHILD [address] [place] [address] 2022-12-13 2022-12-13 Abstract [facility] 1.2.840.114 [id number] Univers 00:00:00 00:00:00 Shanthi C ANGLE BENDER 350.1.13.10 ity of [facility] 4.2.7.2.686 Anil as MATERNAL [id number] [facility] ical & CHILD [address] [place] [address] 2022-12-13 2022-12-13 Patient [facility] 1.2.750.187 [id number] Univers 00:00:00 00:00:00 Secure Msg Shanthi C ANGLE BENDER 350.1.13.10 ity of [facility] 4.2.7.2.686 Anil as MATERNAL [id number] [facility] ical & CHILD [address] [place] [address] 2022-12-12 2022-12-12 Outpatient P ALESHA [facility] [id number] Univers 15:30:00 15:36:22 KOUTROUVELI it y of S, YOU [facility] 2022-12-12 2022-12-12 Online [employer] Ultrasound, [facility] 1.2 .840.114 [id number] Univers 15:30:00 15:36:22 Visit Avelino Clayton ANGLE BENDER 350.1. 13.10 ity of REGIONAL 4.2.7.2.686 Anil as MATERNAL [id number] [facility] ical & CHILD [address] [facility] 2022-12-12 2022-12-[address] [facility], [facility] 1.2.108.276 [id number] Univers 14:00:00 14:37:47 Shanthi C ANGLE BENDER 350.1.13.10 ity of Visit REGIONAL 4.2.7.2.686 Anil as MATERNAL [id number] [facility] & [address] 2022-12-12 2022-12-12 Telephone ValdemarandreaRUST 1.2.840.114 [id number] Univers 00:00:00 00:00:00 Shanthi C ANGLE BENDER 350.1.13.10 ity of [facility] 4.2.7.2.686 Anil as MATERNAL [id number] [address] 2022-12-07 2022-12-07 Outpatient R LIZETTE [facility] [id number] Univers 10:30:00 11:43:28 SHANTHI ity o f [facility] 2022-12-07 2022-12-07 Routine [facility] 1.2.977.684 [id number] Univers 10:30:00 11:43:28 Shanthi C ANGLE BENDER 350.1.13.10 ity of Visit REGIONAL 4.2.7.2.686 Anil as MATERNAL [id number] [facility] & [address] 2022-11-17 2022-11-17 Telephone CandidoRUST 1.2.840.114 [id number] Univers 00:00:00 00:00:00 Amber SPECIALTY 350.1.13.10 [place] [id number] [facility] [address] 2022-11-16 2022-11-16 Outpatient R LIZETTE [facility] [id number] Univers 10:30:00 10:36:09 SHANTHI ity o f [facility] 2022-11-16 2022-11-16 Routine [facility] 1.2.785.223 [id number] Univers 10:30:00 10:36:09 Shanthi C ANGLE BENDER 350.1.13.10 ity of Visit [facility] 4.2.7.2.686 Anil as MATERNAL [id number] Med ical & CHILD [address] [place] [address] 2022-11-10 2022-11-10 Outpatient R JA SALDANA [facility] [id number] Univers 09:45:00 10:30:26 ity of [facility] 2022-11-10 2022-11-10 Telemedici Amber Rey [facility] 1.2.8 40.114 [id number] Univers 09:45:00 10:30:26 ne Visit Ja Saldana ANGLE BENDER 350.1.13.10 ity of REGIONAL 4.2.7.2.686 Anil as MATERNAL [id number] [facility] ica & CHILD [address] [place] [address] 2022-11-10 2022-11-10 Telephone [facility] 1.2.840.114 [id number] Univers 00:00:00 00:00:00 Shanthi C ANGLE BENDER 350.1.13.10 ity of REGIONAL 4.2.7.2.686 Anil as MATERNAL [id number] [facility] ical & CHILD [address] [place] [address] 2022-11-10 2022-11-10 Orders Doctor PHILIP 1.2.840.114 [id number] Univers 00:00:00 00:00:00 Only Unassigned, JOYCE 350.1.13.10 ity of [place] [facility] 4.2.7.2.686 Anil as [id number] [address] 2022-11-10 2022-11-10 Patient [facility] 1.2.297.814 [id number] Univers 00:00:00 00:00:00 Secure Msg Shanthi C ANGLE BENDER 350.1.13.10 ity of REGIONAL 4.2.7.2.686 Anil as MATERNAL [id number] [facility] ical & CHILD [address] [place] [address] 2022-11-10 2022-11-10 Patient [facility] 1.2.419.526 [id number] Univers 00:00:00 00:00:00 Secure Msg Shanthi C ANGLE BENDER 350.1.13.10 ity of REGIONAL 4.2.7.2.686 Anil as MATERNAL [id number] [facility] ical & CHILD [address] [place] [address] 2022-11-07 2022-11-07 Abstract [facility] 1.2.840.114 [id number] Univers 00:00:00 00:00:00 Shanthi C ANGLE BENDER 350.1.13.10 ity of REGIONAL 4.2.7.2.686 Anil as MATERNAL [id number] [facility] [address] [place] [address] 2022-11-07 2022-11-07 Telephone [facility] 1.2.840.114 [id number] Univers 00:00:00 00:00:00 Shanthi C ANGLE BENDER 350.1.13.10 ity of REGIONAL 4.2.7.2.686 Anil as MATERNAL [id number] [facility] & CHILD [address] [place] [address] 2022-10-31 2022-10-31 Outpatient P ALESHA [facility] [id number] Univers 14:00:00 15:26:34 LISA feliz y of AVELINO Wilson [facility] 2022-10-31 2022-10-31 Online [facility] Ultras[facility], [facility] 1.2 .840.114 [id number] Univers 14:00:00 15:26:34 Visit Avelino Clayton ANGLE BENDER 350.1. 13.10 ity of REGIONAL 4.2.7.2.686 Anil as MATERNAL [id number] [facility] ical & CHILD [address] [facility] 2022-10-26 2022-10-26 [facility] [id number] Univers 15:45:00 16:10:05 SHANTHI ity o f [facility] 2022-10-26 2022-10-26 Routine LizetteRUST 1.2.400.545 [id number] Univers 15:45:00 16:10:05 Shanthi C ANGLE BENDER 350.1.13.10 ity of Visit REGIONAL 4.2.7.2.686 Anil as MATERNAL [id number] [facility] & CHILD [address] [place] [address] 2022-10-20 2022-10-20 Telephone LizetteRUST [id number] Univers 00:00:00 00:00:00 Shanthi C ANGLE BENDER 350.1.13.10 ity of REGIONAL 4.2.7.2.686 Anil as MATERNAL [id number] [address] 2022-10-19 2022-10-19 Refill LizetteRUST [id number] Univers 00:00:00 00:00:00 Shanthi C ANGLE BENDER 350.1.13.10 ity of REGIONAL 4.2.7.2.686 Anil as MATERNAL [id number] [address] 2022-10-18 2022-10-18 Refill [facility] [id number] Univers 00:00:00 00:00:00 Shanthi C ANGLE BENDER 350.1.13.10 ity of REGIONAL 4.2.7.2.686 Anil as MATERNAL [id number] [address] [address] 2022-10-16 2022-10-16 Outpatient R IVA [facility] [id number] Univers 15:15:00 15:15:00 SANIYA ity of [facility] 2022-10-06 2022-10-06 Abstract ValdemarandreaRUST 1.2.840.114 [id number] Univers 00:00:00 00:00:00 Shanthi C ANGLE BENDER 350.1.13.10 ity of REGIONAL 4.2.7.2.686 Anil as MATERNAL [id number] Med ical & CHILD [address] [place] [address] 2022-09-29 2022-09-29 Outpatient P RUSTAM YU [facility] [id number] Univers 15:30:00 16:58:04 RUSTAM YU [facility] 2022-09-29 2022-09-29 Online Trader 1, [facility] Us Room UNIVERSIT 1 .2.840.114 [id number] Univers 15:30:00 16:58:[address] [facility] 350.1.13.10 ity of CL[place] [id number] [address] 2022-09-22 2022-09-22 Outpatient P YUYODITRUSTAM [facility] [id number] Univers 15:15:00 15:15:00 GIGI RUSTAM [facility] 2022-09-18 2022-09-18 Outpatient R AKINSIPE, [facility] [id number] Univers 15:00:00 16:06:28 SHANTHI ity o f [facility] 2022-09-18 2022-09-18 Routine Saniya Wolf A [facility] 1.2.84 0.114 [id number] Univers 15:00:00 16:06:28 AkinShanthi cisneros ANGLE BENDER 350.1.13 .10 ity of Visit REGIONAL 4.2.7.2.686 Anil as MATERNAL [id number] [facility] & CHILD [address] [place] [address] 2022-08-21 2022-08-21 Outpatient R AKINSIPE, [facility] [id number] Univers 14:45:00 15:43:20 SHANTHI ity o f [facility] 2022-08-21 2022-08-21 Routine Akinsipe, [facility] 1.2.696.731 [id number] Univers 14:45:00 15:43:20 Shanthi C ANGLE BENDER 350.1.13.10 ity of Visit REGIONAL 4.2.7.2.686 Anil as MATERNAL [id number] [facility] & CHILD [address] [place] [address] 2022-08-21 2022-08-21 Outpatient R AKINSIPE, [facility] [id number] Univers 10:30:00 10:30:00 SHANTHI felizy o f [facility] 2022-08-15 2022-08-15 Abstract Lizette [facility] 1.2.840.114 [id number] Univers 00:00:00 00:00:00 Shanthi C ANGLE BENDER 350.1.13.10 ity of REGIONAL 4.2.7.2.686 Anil as MATERNAL [id number] [facility] & CHILD [address] [place] [address] 2022-08-14 2022-08-14 Outpatient P BHARATH [facility] [id number] Univers 08:30:00 09:12:30 ALBERTO canas [facility] 2022-08-14 2022-08-14 Online Trader Ultrasound, [facility] 1.2 .840.114 [id number] Univers 08:30:00 09:00:00 Visit Alberto Montes ANGLE BENDER 350.1.13.10 ity of REGIONAL 4.2.7.2.686 Anil as MATERNAL [id number] [facility] & CHILD [address] [place] [address] 2022-08-09 2022-08-09 Patient LizetteRUST 1.2.043.377 [id number] Univers 00:00:00 00:00:00 Secure Msg Shanthi C ANGLE BENDER 350.1.13.10 ity of REGIONAL 4.2.7.2.686 Anil as MATERNAL [id number] [facility] & CHILD [address] [place] [address] 2022-08-07 2022-08-07 Patient Lizette [facility] 1.2.954.902 [id number] Univers 00:00:00 00:00:00 Secure Msg Shanthi C ANGLE BENDER 350.1.13.10 ity of REGIONAL 4.2.7.2.686 Anil as MATERNAL [id number] [facility] & CHILD [address] [place] [address] 2022-08-07 2022-08-07 Patient Lizette [facility] 1.2.587.470 [id number] Univers 00:00:00 00:00:00 Secure Msg Shanthi C ANGLE BENDER 350.1.13.10 ity of REGIONAL 4.2.7.2.686 Anil as MATERNAL [id number] [facility] & CHILD [address] [place] [address] 2022-08-03 2022-08-03 Telephone Lizette [facility] 1.2.840.114 10 [id number] Univers 00:00:00 00:00:00 Shanthi C ANGLE BENDER 350.1.13.10 ity of REGIONAL 4.2.7.2.686 Anil as MATERNAL [id number] [facility] & CHILD [address] [place] [address] 2022-07-31 2022-07-31 Outpatient R DENITA [facility] [id number] Univers 09:30:00 13:38:09 TERRENCE [facility] 2022-07-31 2022-07-31 Telemedici Faculty, [facility] 1.2.840.114 [id number] Univers 09:30:00 10:00:00 ne Visit Terrence Barron ANGLE BENDER 350.1.13. 10 ity of REGIONAL 4.2.7.2.686 Anil as MATERNAL [id number] [facility] & CHILD [address] [place] [address] 2022-07-28 2022-07-28 Telephone LizetteRUST 1.2.840.114 10 [id number] Univers 00:00:00 00:00:00 Shanthi C ANGLE BENDER 350.1.13.10 ity of REGIONAL 4.2.7.2.686 Nail as MATERNAL [id number] [facility] & CHILD [address] [place] [address] 2022-07-27 2022-07-27 Outpatient R JO ANN [facility] [id number] Univers 10:15:00 10:15:00 ADILSON [facility] 2022-07-25 2022-07-25 Outpatient R AMENA BETANCOURT [facility] B [id number] Univers 15:30:00 15:30:00 AMENA BETANCOURT [facility] 2022-07-25 2022-07-25 Telephone LizetteRUST 1.2.840.114 10 [id number] Univers 00:00:00 00:00:00 Shanthi C ANGLE BENDER 350.1.13.10 ity of REGIONAL 4.2.7.2.686 Anil as MATERNAL [id number] [facility] & [address] 2022-07-24 2022-07-24 Initial [facility] 1.2.640.077 [id number] Univers 14:00:00 14:45:45 Shanthi C ANGLE BENDER 350.1.13.10 ity of Visit REGIONAL 4.2.7.2.686 Anil as MATERNAL [id number] [facility] ical & CHILD [address] [place] [address] 2022-07-24 2022-07-24 Outpatient [facility] [id number] Univers 13:30:00 12:53:06 SHANTHI ity o f [facility] 2022-07-24 2022-07-24 Orders Doctor PHILIP 1.2.840.114 [id number] Univers 00:00:00 00:00:00 Only Unassigned, JOYCE 350.1.13.10 ity of [place] [facility] 4.2.7.2.686 Anil as [id number] [place] [address] [address] 2022-07-14 2022-07-14 Outpatient R AMENA BETANCOURT [facility] B [id number] Univers 16:30:00 16:30:00 AMENA BETANCOURT ity of [facility] 2022-07-14 2022-07-14 Telephone Asia [facility] 1.2.840.11 4 [id number] Univers 00:00:00 00:00:00 Amena SALDANA 350.1.13.10 it y [place] [id number] [address] 2022-07-12 2022-07-12 Patient Asia [facility] 1.2.840.114 [id number] Univers 00:00:00 00:00:00 Secure Msg Amena SALDANA 350.1.13.10 ity of [place] [id number] [place] [address] [address] 2022-07-102022-07-10 Online Trader An, [facility] Main [facility] 1.2.8 40.114 [id number] Univers 09:30:00 09:45:00 Visit Amena Betancourt 350.1.13. 10 [place] of [place] [id number] T[place] dical [address] 2022-07-10 2022-07-10 Outpatient R AMENA BETANCOURT [facility] B [id number] Univers 09:30:00 09:30:00 AMENA BETANCOURT ity [facility] 2022-07-10 2022-07-10 Orders Doctor PHILIP 1.2.840.[id number] [place] [address] 00:00:00 00:00:00 Only Unassigned, JOYCE 350.1.13.10 ity of [place] [facility] 4.2.7.2.686 Anil as [id number] [address] 2022-07-05 2022-07-05 Outpatient R AMENA BETANCOURT [facility] B [id number] Univers 15:45:00 15:45:00 TRIAMENA ABERNATHY itjoyce [facility] 2022-06-19 2022-06-19 Patient Doctor KOLBY SANCHEZ 1.2.501.451 [id number] Univers 00:00:00 00:00:00 Secure Msg UnassignedLES 350.1.13.10 ity of [place] [id number] [address] 2022-06-06 2022-06-06 Telephone Asia [facility] SANCHEZ 1.2.840.11 4 [id number] Univers 00:00:00 00:00:00 Amena SALDANA 350.1.13.10 it y of [place] [id number] [address] 2022-06-06 2022-06-06 Patient Asia [facility] DANIEL 1.2.840.114 [id number] Univers 00:00:00 00:00:00 Secure Msg Amena SALDANA 350.1.13.10 ity of [place] [id number] [address] 2022-05-18 2022-05-18 Online Trader Harmony [facility] Main [facility] 1.2.8 40.114 [id number] Univers 16:00:00 16:15:00 Visit Asia Amena TRISTINABHINAV 350.1.13. 10 ity of [place] 479.3507974 [place] dic[address] 2022-05-18 2022-05-18 Outpatient R ASIA AMENA [facility] B [id number] Univers 16:00:00 16:00:00 AMENA BETANCOURT [facility] 2022-04-25 2022-04-25 Telephone Asia [facility] 1.2.840.11 4 [id number] Univers 00:00:00 00:00:00 Amena SALDANA 350.1.13.10 it y of [place] [id number] [address] 2022-04-19 2022-04-19 Outpatient R AMENA BETANCOURT [facility] B [id number] Univers 11:30:00 11:30:00 AMENA BETANCOURT [facility] 2022-04-11 2022-04-11 Office Asia [facility] 1.2.840.114 [id number] Univers 16:30:00 16:30:00 Visit Amena SALDANA 350.1.13.10 it y of [place] [id number] [address] 2022-04-11 2022-04-11 Outpatient R AMENA BETANCOURT [facility] B [id number] Univers 16:30:00 16:26:25 AMENA BETANCOURT [facility] 2022-04-11 2022-04-11 Telephone Rubén [facility] 1.2.840.114 [id number] Univers 00:00:00 00:00:00 Rosibel Montana LES 350.1.13.10 i ty of [place] [id number] [address] 2022-04-07 2022-04-07 Outpatient R AMENA BETANCOURT [facility] B [id number] Univers 14:30:00 14:30:00 SAVANAAMENA WALLER [facility] 2022-04-04 2022-04-04 Telephone [facility] 1.2.840.11 4 [id number] Univers 00:00:00 00:00:00 Amena SALDANA 350.1.13.10 it y [place] 345.1521282 [address] 2022-03-29 2022-03-29 Outpatient R SAVANACHRISTIN [facility] B [id number] Univers 15:45:00 15:45:00 ASIAAMENA [facility] 2022-03-28 2022-03-28 Outpatient R AD, [facility] [id number] Univers 15:00:00 16:28:45 ROSIBEL canas [facility] 2022-03-28 2022-03-28 [facility] 1.2.489.669 [id number] Univers 15:00:00 16:28:45 Rosibel L LES 350.1.13.10 ity of [place] [id number] [address] 2022-03-28 2022-03-28 Orders Doctor PHILIP 1.2.840.114 [id number] Univers 00:00:00 00:00:00 Only Unassigned, JOYCE 350.1.13.10 ity of [place] [facility] 4.2.7.2.686 Anil as [id number] [address] 2022-03-27 2022-03-27 Online Trader Lab, Ang - Db [facility] 1.2.840.1 14 [id number] Univers 11:30:00 11:45:00 Visit [facility] 350.1.13.1 0 ity of [place] 4.2.7.2.686 Anil as REENA?BLEA 406.0330258 Tx lili MORALES [address] [place] [address] MEDICAL OFFICE BUILDING 2022-03-27 2022-03-27 Routine [facility] 1.2.840.114 [id number] Univers 11:15:00 11:15:00 Amena SALDANA 350.1.13.10 i ty of Visit [place] 505.1664634 [address] 2022-03-27 2022-03-27 Outpatient R AMENA BETANCOURT [facility] B [id number] Univers 11:15:00 10:54:35 AMENA BETANCOURT [facility] 2022-03-27 2022-03-27 Orders Doctor PHILIP 1.2.840.114 [id number] Univers 00:00:00 00:00:00 Only Unassigned, JOYCE 350.1.13.10 ity of [place] [facility] 4.2.7.2.686 Anil as [id number] [facility] [address] 2022-03-27 2022-03-27 Telephone [facility] 1.2.840.11 4 [id number] Univers 00:00:00 00:00:00 Amena SALDANA 350.1.13.10 it y [place] [id number] [address] 2022-03-24 2022-03-24 Outpatient R AMENA BETANCOURT [facility] B [id number] Univers 13:30:16 23:59:00 [facility] 2022-03-24 2022-03-24 [facility] 1.2.840.114 9 [id number] Univers 13:30:16 23:59:00 Encounter Amena BRADLEY 350.1.13.10 ity of [place] 215.4399386 [facility] [address] 2022-03-24 2022-03-24 Telephone Carloshi [facility] DANIEL 1.2.840.11 4 [id number] Univers 00:00:00 00:00:00 Amena SALDANA 350.1.13.10 it y of [facility] 4.2.7.2.686 [facility] [id number] [facility] [address] 2022-03-23 2022-03-23 Emergency X MICHELLE K [facility] ERT [id number] Univers 13:31:00 19:01:00 ity of [facility] 2022-03-23 2022-03-23 Emergency Susan Martinez [facility] 1.2.840.114 [id number] Univers 13:31:00 19:01:00 Jeanine BRADLEY 350.1.13.10 i ty of [place] 4.2.7.2.686 [facility] [id number] [facility] 084 [address] 2022-03-23 2022-03-23 Nurse Nurse, [facility] 1.2.840.114 [id number] Univers 13:00:00 13:20:00 Visit Unknown, Attending [facility] 350.1.13.10 ity of [place] 4.2.7.2.686 Anil as REENA?BLEA [id number] [place] lili [address] MEDICAL OFFICE BUILDING 2022-03-23 2022-03-23 Outpatient R CARLOS [facility] [id number] Univers 13:00:00 12:57:56 SAGAR ity of [facility] 2022-03-23 2022-03-23 Orders Doctor PHILIP 1.2.840.114 [id number] Univers 00:00:00 00:00:00 Only Unassigned, JOYCE 350.1.13.10 ity of [place] [facility] 4.2.7.2.686 Anil as 101.5992224 [facility] [address] 2022-03-15 2022-03-15 Outpatient R FABI [facility] [id number] Univers 16:00:00 16:00:00 ROSIBEL ity of [facility] 2022-03-15 2022-03-15 Outpatient R AMENA BETANCOURT [facility] B [id number] Univers 13:45:00 14:37:26 AMENA BETANCOURT [facility] 2022-03-15 2022-03-15 Routine [facility] 1.2.840.114 [id number] Univers 13:45:00 14:37:26 Amena SALDANA 350.1.13.10 i ty of [place] [id number] [address] 2022-03-15 2022-03-15 [facility] [id number] 032 [facility] 10:15:00 10:15:00 ROSIBELANNIE canas [facility] 2022 2022 Telephone [facility] 1.2.840.11 4 [id number] Univers 00:00:00 00:00:00 Amena LES 350.1.13.10 it [place] [id number] [address] 2022-03-09 2022-03-09 Telephone [facility] 1.2.840.11 4 [id number] Univers 00:00:00 00:00:00 Hollandandres SALDANA 350.1.13.10 it y [place] [id number] [address] 2022-03-07 2022-03-07 Telephone [facility] 1.2.840.11 4 [id number] Univers 00:00:00 00:00:00 Hollandandres SALDANA 350.1.13.10 it y of [place] 922.0909396 [address] 2022-03-07 2022-03-07 Telephone [facility] 1.2.840.11 4 [id number] Univers 00:00:00 00:00:00 Hollandandres SALDANA 350.1.13.10 it y [place] [id number] [address] 2022-03-06 2022-03-06 Outpatient R AMENA BETANCOURT [facility] B [id number] Univers 00:00:00 00:00:00 AMENA BETANCOURT [facility] 2022-03-06 2022-03-06 Telephone Asia TXVERONICA [facility] 1.2.840.11 4 [id number] Univers 00:00:00 00:00:00 Amena SALDANA 350.1.13.10 it y of [place] 4.2.7.2.686 [facility] [id number] [address] 2022-03-05 2022-03-05 [facility] Asia [facility] 1.2.840.114 [id number] Univers 00:00:00 00:00:00 Management Amena SALDANA 350.1.13.10 ity of [place]OMEN'S 4.2.7.2.686 [facility] [id number] [address] 2022-03-03 2022-03-03 Outpatient R AMENA BETANCOURT [facility] B [id number] Univers 14:10:30 23:59:00 AMENA BETANCOURT [facility] 2022-03-03 2022-03-03 [facility] 1.2.840.114 9 [id number] Univers 14:00:00 23:59:00 Encounter Amena BRADLEY 350.1.13.10 ity of [facility] 4.2.7.2.686 [facility] [id number] [address] 2022-02-23 2022-02-23 [facility] Asia [facility] 1.2.840.114 [id number] Univers 00:00:00 00:00:00 Management Amena SALDANA 350.1.13.10 ity of [place]OMEN[place]S 4.2.7.2.686 [facility] [id number] [address] 2022-02-22 2022-02-22 Online Trader An, [facility] Main [facility] 1.2.8 40.114 [id number] Univers 16:45:00 17:00:00 Visit Amena Betancourt 350.1.13. 10 ity of [facility] 4.2.7.2.[place] [id number] Tx dical NAL 353 [facility] 2022-02-22 2022-02-22 Outpatient R AMENA BETANCOURT [facility] B [id number] Univers 15:30:00 16:14:30 AMENA BETANCOURT itjoyce [facility] 2022-02-22 2022-02-22 Initial Asia [facility] 1.2.840.114 [id number] Univers 15:30:00 16:14:30 Amena LES 350.1.13.10 i ty of [place] [id number] [address] 2022-02-20 2022-02-20 Online Trader Harmony [facility] Main [facility] 1.2.8 40.114 [id number] Univers 13:15:00 13:30:00 Visit Asia Amena BRADLEY 350.1.13. 10 ity of [place] 140.2332068 Tx dical NAL [address] [place] [address] 2022-02-20 2022-02-20 Outpatient R AMENA BETANCOURT [facility] B [id number] Univers 13:15:00 13:15:00 MECHELLEAMENA ABERNATHY [facility] 2022-02-20 2022-02-20 Patient Asia [facility] SANCHEZ 1.2.840.114 [id number] Univers 00:00:00 00:00:00 Secure Msg Amena LES 350.1.13.10 ity [place] [id number] [address] 2022-02-20 2022-02-20 Telephone Asai [facility] 1.2.840.11 4 [id number] Univers 00:00:00 00:00:00 Amena SALDANA 350.1.13.10 it y [place] 247.8483673 [address] 2022-02-20 2022-02-20 Patient Iris TXVERONICA SANCHEZ 1.2.742.851 [id number] Univers 00:00:00 00:00:00 Secure Msg Deanne SALDANA 350.1.13.10 it[place] [id number] [facility] [address] 2022-02-18 2022-02-18 Online Trader An, Adc Lab Main [facility] 1.2.8 40.114 [id number] Univers 10:00:00 10:15:00 Visit Amena Betancourt 350.1.13. 10 ity of [place] 220.3354001 T[place] dic[address] 2022-02-18 2022-02-18 Outpatient R AMENA BETANCOURT [facility] B [id number] Univers 10:00:00 10:00:00 AMENA BETANCOURT ity of [facility] 2022-02-18 2022-02-18 Orders Doctor PHILIP 1.2.840.114 [id number] Univers 00:00:00 00:00:00 Only Unassigned, JOYCE 350.1.13.10 ity of [place] [facility] 4.2.7.2.686 Anil as [id number] [place] [address] [address] 2022-02-17 2022-02-17 Patient Iris TXVERONICA SANCHEZ 1.2.966.913 [id number] Univers 00:00:00 00:00:00 Secure Msg Deanne [place] LES 350.1.13.10 it[place] 159.0943294 [facility] [address] 2022-02-17 2022-02-17 Telephone [facility] 1.2.840.11 4 [id number] Univers 00:00:00 00:00:00 Amena SALDANA 350.1.13.10 it y [place] [id number] [address] 2022-02-08 2022-02-08 Outpatient R AMENA BETANCOURT [facility] B [id number] Univers 00:00:00 00:00:00 AMENA BETANCOURT [facility] 2022-01-24 2022-01-24 Outpatient R AMENA BETNACOURT [facility] B [id number] Univers 15:30:00 16:07:03 AMENA BETANCOURT [facility] 2022-01-24 2022-01-24 Office Asia [facility] 1.2.840.114 [id number] Univers 15:30:00 16:07:03 Visit Amena SALDANA 350.1.13.10 it y [place] [id number] [address] 2022-01-20 2022-01-20 Outpatient R AMENA BETANCOURT [facility] B [id number] Univers 15:15:00 15:15:00 [facility] 2022-01-06 2022-01-06 Outpatient R AMENA BETANCOURT [facility] B [id number] Univers 16:00:00 16:00:00 AMENA BETANCOURT [facility] 2022-01-06 2022-01-06 Outpatient R JARETH OLMEDO [facility] [id number] Univers 14:15:00 14:27:31 [facility] 2022-01-06 2022-01-06 Office Honorio Jareth [facility] 1.2.840.114 [id number] Univers 14:15:00 14:27:31 Visit MIRNA 350.1.13.10 i ty [place] [id number] [place] [address] 2022-01-03 2022-01-03 Telephone Jareth Olmedo [facility] 1.2.840.11 [id number] Univers 00:00:00 00:00:00 LES 350.1.13.10 it [place] [id number] [address] 2021-12-30 2021-12-30 Online Trader 2, Adc Lab [facility] 1.2.840.114 [id number] Univers 11:00:00 11:13:02 Visit Jareth Olmedo 350.1.13.10 [place] [id number] [place] dical NAL [address] [facility] 2021-12-30 2021-12-30 Outpatient R JARETH OLMEDO [facility] [id number] Univers 09:30:00 10:59:31 ity of [facility] 2021-12-30 2021-12-30 Office Jareth Olmedo [facility] 1.2.840.114 [id number] Univers 09:30:00 10:59:31 Visit MIRNA 350.1.13.10 i ty [facility] [place] [id number] [place] dical [facility] [address] [facility] 2021-12-30 2021-12-30 Outpatient R JARETH OLMEDO [facility] [id number] Univers 09:30:00 10:59:31 ity of [facility] 2021-12-30 2021-12-30 Orders Doctor PHILIP 1.2.840.114 [id number] Univers 00:00:00 00:00:00 Only Unassigned, JOYCE 350.1.13.10 ity of [place] [facility] 4.2.7.2.686 Anil as [phone] [facility] [address] 2021-12-28 2021-12-28 Telephone Asia [facility] 1.2.840.11 [id number] Univers 00:00:00 00:00:00 Amena SALDANA 350.1.13.10 it [place] [facility] [phone] [facility] [address] 2021-11-23 2021-11-23 Outpatient R AMENA BETANCOURT [facility] B [id number] Univers 09:30:00 10:56:47 AMENA BETANCOURT ity [facility] 2021-11-23 2021-11-23 Office Asia [facility] 1.2.840.114 [id number] Univers 09:30:00 10:56:47 Visit Amena SALDANA 350.1.13.10 it y of WOMEN'S 4.2.7.2.686 [facility] [id number] [address] 2021-11-09 2021-11-09 Online Trader Lab, Ang - Db [facility] 1.2.840.1 [id number] Univers 16:30:00 16:45:00 Visit Quinten Kline [facility] 350.1.13.10 ity of Amena Betancourt 4.2.7.2.686 [facility]?BLEA [phone] [address] MEDICAL OFFICE BUILDING 2021-11-09 2021-11-09 Office Asia [facility] 1.2.840.114 [id number] Univers 15:00:00 15:40:11 Visit Amena SALDANA 350.1.13.10 it y of WOMEN'S 4.2.7.2.686 [facility] [id number] [address] 2021-11-09 2021-11-09 Outpatient R CARLOSHOLLAND DOANDRES [facility] B [id number] Univers 15:00:00 15:40:11 CARLOSAMENA DO [facility] 2021-11-09 2021-11-09 Outpatient R CARLOSHOLLAND DOANDRES [facility] B [id number] Univers 15:00:00 15:40:11 CARLOSAMENA DO [facility] 2021-11-09 2021-11-09 Outpatient R CARLOSHI AMENA [facility] B [id number] Univers 15:00:00 15:00:00 CARLOSAMENA DO [place] [facility] 2021-10-27 2021-10-27 Outpatient R JARETH OLMEDO [facility] [id number] Univers 15:00:00 15:45:46 ity [facility] 2021-10-27 2021-10-27 Office Honorio Jareth [facility] 1.2.840.114 [id number] Univers 15:00:00 15:45:46 Visit LES 350.1.13.10 it y of WOMEN'S 4.2.7.2.686 [facility] [id number] [facility] [address] 2021-10-27 2021-10-27 Orders Doctor PHILIP 1.2.840.114 [id number] Univers 00:00:00 00:00:00 Only Unassigned, JOYCE 350.1.13.10 ity of [place] [facility] 4.2.7.2.686 [facility] [phone] [facility] [address] 2021-10-18 2021-10-18 [facility] [id number] Univers 12:38:00 17:05:00 [facility]-10-18 2021-10-18 Emergency [facility] 1.2.432.995 [id number] Univers 12:38:00 17:05:00 Kameron Freeman MIRNA 350.1.13.10 i ty of [place] 4.2.7.2.686 [facility] [id number] [facility] [address] 2021-10-18 2021-10-18 Emergency [facility] [id number] Univers 12:38:00 17:05:00 [facility] 2021-02-20 2021-02-20 Emergency EM Crismon, [facility] ESTRELLITA [id number] [facility] 07:08:00 10:32:00 Praveen [address] [facility] Results Test Description Test Time Test Comments Results Result Comments Source CBC with Differential 2023-03-06 11:03:13 Test Item Value Reference Range Interpretation Comme nts WBC (test code = 6690-2) 12.43 See_Comment H [A utomated message] The system which ge nerated this result transmit ayde reference range: 4.30 - 1 1.10 10*3/?L. The reference r kristen was not used to interpr et this result as normal/abnor mal. RBC (test code = 789-8) 2.96 See_Comment L [Au tomated message] The system which ge nerated this result transmit ayde reference range: 3.93 - 5 .25 10*6/?L. The reference r kristen was not used to interpr et this result as normal/abnor mal. HGB (test code = 718-7) 9.3 g/dL 11.6-15.0 L HCT (test code = 4544-3) 26.9 % 35.7-45.2 L MCV (test code = 787-2) 90.9 fL 80.6-95.5 MCH (test code = 785-6) 31.4 pg 25.9-32.8 MCHC (test code = 786-4) 34.6 g/dL 31.6-35.1 RDW-SD (test code = 40164-5) 45.6 fL 39.0-49.9 RDW-CV (test code = 788-0) 13.9 % 12.0-15.5 PLT (test code = 777-3) 270 See_Comment [Au tomated message] The system which ge nerated this result transmit ayde reference range: 166 - 35 8 10*3/?L. The reference range was not used to interpret th is result as normal/abnormal . MPV (test code = 56552-9) 9.7 fL 9.5-12.9 NRBC/100 WBC (test code = 0.0 See_Comment [ Automated message] The 7447301523) system which ge nerated this result transmit ayde reference range: 0.0 - 10 .0 /100 WBCs. The reference r kristen was not used to interpr et this result as normal/abnor mal. NRBC x10^3 (test code = See_Comment [Au tomated message] The 9924112101) system which Crossbar nerated this result transmit ayde reference range: 10*3/?L. The reference range was not u sed to interpret this result as normal/abnormal . GRAN MAT (NEUT) % (test code 73.5 % = 770-8) IMM GRAN % (test code = 0.60 % 2578354228) LYMPH % (test code = 736-9) 14.2 % MONO % (test code = 5905-5) 10.1 % EOS % (test code = 713-8) 1.4 % BASO % (test code = 706-2) 0.2 % GRAN MAT x10^3(ANC) (test 9.12 10*3/uL 1.88-7.09 H code = 5547394320) IMM GRAN x10^3 (test code = 0.07 10*3/uL 0.00-0.06 H 2011755927) LYMPH x10^3 (test code = 1.77 10*3/uL 1.32-3.29 731-0) MONO x10^3 (test code = 1.26 10*3/uL 0.33-0.92 H 742-7) EOS x10^3 (test code = 0.18 10*3/uL 0.03-0.39 711-2) BASO x10^3 (test code = 0.03 10*3/uL 0.01-0.07 704-7) Lab Interpretation (test Abnormal code = 38012-7) [facility] IMM[facility]E [id number] 05:29:48 Test Item Value Reference Range Interpretation Comments RHIG CANDIDATE? (test Yes- see A Patien t is a code = 5188) comment candidate for RhIg- Patient i s Rh Negative and baby is Rh Positive.Perfor me d at [facility] Laboratory Services - [facility] Blood [address] [address]Ihxg Free: [phone] A No. [id number] Lab Interpretation Abnormal (test code = 37058-1) [facility] [id number] 02:53:06 Test Item Value Reference Range Interpretation Comments BASE EXCESS, CORD -3.0 mEq/L (test code = 4153169266) AC PH, CORD (BEAKER) 7.27 7.18-7.38 (test code = 1327656908) PC02, CORD (test code 56 See_Comment [Auto mated message] The = 9552109340) system which g enerated this result transmit ayde reference range : 32 - 66 mmHg. The refer ence range was not used to interpret this result as normal/abnormal . PO2, CORD (test code 20 See_Comment [Autom ated message] The = 6896791886) system which g enerated this result transmit ayde reference range : 10 - 30 mmHg. The refer ence range was not used to interpret this result as normal/abnormal . BICARBONATE, CORD 25 See_Comment [Automate d message] The (test code = system which ge nerated this 2269593474) result transmit ayde reference range : 17 - 27 mEq/L. The refe rence range was not used to interpret this result as normal/abnormal . [facility] [id number] 02:51:49 Test Item Value Reference Range Interpretation Comments VENOUS BASE EXCESS, CORD -5.0 mEq/L (test code = 8750082383) VENOUS PH, CORD (test 7.26 7.25-7.45 code = 2222190165) VENOUS PC02, CORD (test 51 See_Comment H [Au tomated message] code = 2121107791) The syste m which generated this result transmitted ref erence range: 27 - 49 mmHg. The reference r kristen was not used to interpret this result as normal/abnor mal. VENOUS PO2, CORD (test 20 See_Comment [Aut omated message] code = 0363438451) The syste m which generated this result transmitted ref erence range: 17 - 41 mmHg. The reference r kristen was not used to interpret this result as normal/abnor mal. VENOUS BICARBONATE, CORD 22 See_Comment [A utomated message] (test code = 3741724788) The system which generated this result transmitted ref erence range: 12 - 29 mEq/L. The reference r kristen was not used to interpret this result as normal/abnor mal. Lab Interpretation (test Abnormal code = 65421-1) [facility] R/O [id number] 20:18:18 Test Item Value Reference Range Interpretation Comments ANTIBODY (test Anti-D Probable Patient re ceived code = 683) RhIg Rhogam on 12/21/22Performed at [facility] Laboratory Services - [facility] Blood [address] [place] [address]Lknk Free: [phone] A No. [id number] [facility] SPECIFIC [id number] 15:07:00 Test Item Value Reference Range Interpretation Comments POCT U SP GRAV (test code = 3255) . 1.005-1.025 POCT PH U (test code = 3254) 8 mg/dl 5-8 POCT U LEUK EST (test code = 1+ Negative - Negative 568) POCT U NIT (test code = 3262) neg Negative - Negative POCT U PROT (test code = 3259) trace Negative - Negative POCT U GLU (test code = 3256) neg Negative - Negative POCT U KETONE (test code = 3258) neg Negative - Negative POCT U UROBILI (test code = 3260) . 0.2-1 POCT U BILI (test code = 3261) . Negative - Negative POCT U BLD (test code = 3257) neg Negative - Negative POCT U COLOR (test code = 3266) . POCT U APPEAR (test code = 3267) . [facility] URINALYSIS W SPECIFIC [id number] 16:00:00 Test Item Value Reference Range Interpretation [...] U APPEAR (test code = 3267) . [facility] URINALYSIS W SPECIFIC [id number] 20:59:00 Test Item Value Reference Range Interpretation Comments [...] U APPEAR (test code = 3267) . [facility] URINALYSIS W SPECIFIC [id number] 18:27:00 Test Item Value Reference Range Interpretation [...] U APPEAR (test code = 3267) . [facility] URINALYSIS W SPECIFIC [id number] 18:27:00 Test Item Value Reference Range Interpretation [...] U APPEAR (test code = 3267) . [facility] URINALYSIS W SPECIFIC [id number] 18:27:00 Test Item Value Reference Range Interpretation [...] U APPEAR (test code = 3267) . [facility] URINALYSIS W SPECIFIC [id number] 18:27:00 Test Item Value Reference Range Interpretation [...] U APPEAR (test code = 3267) . [facility] URINALYSIS W SPECIFIC [id number] 14:41:00 Test Item Value Reference Range Interpretation [...] U APPEAR (test code = 3267) . [facility] - SYPHILIS [id number] 15:06:38 Test Item Value Reference Range Interpretation Comments Syphilis IgG/IgM (test Non-reactive Non-reactive code = 86160-7) SAMY (test code = SAMY) Non-reactive - No serologic evidence of T. pallidum infection. Cannot exclude incubating or early syphilis. Submit a second specimen in 2-4 weeks if syphilis is clinically suspected. Equivocal - Further testing to follow. Reactive - Further testing to follow. Lab Interpretation (test Normal code = 54051-9) [facility] Hospital[facility] Workup, Blood [id number] 19:09:00 Test Item Value Reference Range Interpretation Comments ABO & RH (test code = 20) O NEGATIVE IAT (test code = 1185) Negative [facility] SPECIFIC [id number] 14:23:00 Test Item Value Reference Range Interpretation Comments POCT U SP GRAV (test code = . 1.005-1.025 5) POCT PH U (test code = 3254) . 5-8 POCT U LEUK EST (test code = . Negative - Negative 3) POCT U NIT (test code = 3262) . Negative - Negative POCT U PROT (test code = 3259) negative Negative - Negative POCT U GLU (test code = 3256) negative Negative - Negative POCT U KETONE (test code = 3258) . Negative - Negative POCT U UROBILI (test code = . 0.2-1 0) POCT U BILI (test code = 3261) . Negative - Negative POCT U BLD (test code = 3257) . Negative - Negative POCT U COLOR (test code = 3266) . POCT U APPEAR (test code = 3267) . [facility] URINALYSIS W SPECIFIC [id number] 19:12:00 Test Item Value Reference Range Interpretation [...] U APPEAR (test code = 3267) . [facility] URINALYSIS W SPECIFIC [id number] 15:07:00 Test Item Value Reference Range Interpretation [...] U APPEAR (test code = 3267) . [facility] URINALYSIS W SPECIFIC [id number] 15:07:00 Test Item Value Reference Range Interpretation [...] U APPEAR (test code = 3267) . [facility] URINALYSIS W SPECIFIC [id number] 14:51:00 Test Item Value Reference Range Interpretation [...] U APPEAR (test code = 3267) . [facility] URINALYSIS W SPECIFIC [id number] 14:51:00 Test Item Value Reference Range Interpretation [...] U APPEAR (test code = 3267) . [facility] URINALYSIS W SPECIFIC [id number] 14:51:00 Test Item Value Reference Range Interpretation [...] U APPEAR (test code = 3267) . [facility] URINALYSIS W SPECIFIC [id number] 20:52:00 Test Item Value Reference Range Interpretation [...] U APPEAR (test code = 3267) . [facility] URINALYSIS W SPECIFIC [id number] 20:36:00 Test Item Value Reference Range Interpretation [...] POCT U APPEAR (test code = 3267) [facility] URINALYSIS W SPECIFIC [id number] 20:22:00 Test Item Value Reference Range Interpretation [...] U APPEAR (test code = 3267) . [facility] URINALYSIS W/O SPECIFIC [id number] 18:12:00 Test Item Value Reference Range Interpretation [...] code = 3257) NEG Negative - Negative [facility] [id number] 18:11:00 Test Item Value Reference Range Interpretation Comments POCT PREG (test code = 1605) Positive On board controls acceptable with C Yes Line (test code = 3574) POCT PREG LOT # (test code = 3575) POCT PREG TEST DATE (test code = 3576) [facility] HospitalTROP[facility]IN [id number] 21:14:40 Test Item Value Reference Interpretation Comments Range TROPONIN I (test 0.002 ng/mL See_Comment [Automated code = 4495898771) message] The system which generated this result [...] biotin. Lab Interpretation Normal (test code = 06086-3) [facility] HospitalN-TERMINAL [id number] 21:08:59 Test Item Value Reference Range Interpretation Comments NT-proBNP (test code 53 pg/mL See_Comment [Autom ated = 6531809861) message] The system which generated this result transmitted reference range : <=125. The reference range was not used to interpret this result as normal/abnormal . SAMY (test code = SAMY) Biotin has been reported to cause a negative bias, interpret results relative to patient's use of biotin. Lab Interpretation Normal (test code = 00352-8) [facility]MAGN[facility]IUM2022-12-08 21:00:36 Test Item Value Reference Range Interpretation Comments MAGNESIUM (test code = 1445737137) 1.9 mg/dL 1.7-2.4 Lab Interpretation (test code = Normal 36136-6) [facility]. METABOLIC PANEL (26286)2022-03-23 21:00:16 Test Item Value Reference Range Interpretation Comments NA (test code = 136 mmol/L 135-145 3072006446) K (test code = 4.4 mmol/L 3.5-5.0 6286964109) CL (test code = 104 mmol/L 98-108 4537308760) CO2 TOTAL (test code 24 mmol/L 23-31 = 0166522844) AGAP (test code = 2-16 0142947687) BUN (test code = 13 mg/dL 7-23 7077444298) GLUCOSE (test code = 92 mg/dL 70-110 7671936897) CREATININE (test code 0.53 mg/dL 0.50-1.04 = 6080699971) TOTAL BILI (test code 0.4 mg/dL 0.1-1.1 = 8474955168) CALCIUM (test code = 9.1 mg/dL 8.6-10.6 4171507354) T PROTEIN (test code 7.2 g/dL 6.3-8.2 = 5226011110) ALBUMIN (test code = 4.6 g/dL 3.5-5.0 1517756174) ALK PHOS (test code = 50 U/L 34-122 4693377254) ALTv (test code = 23 U/L 5-35 1742-6) AST(SGOT) (test code 32 U/L 13-40 = 2468781841) eGFR (test code = mL/min/1.73m2 7018046136) SAMY (test code = SAMY) Association of [...] or urine or abnormalities in imaging tests). [facility] WITH [id number] 20:35:10 Test Item Value Reference Range Interpretation Comments WBC (test code = See_Comment [Automated 4190-2) message] The sy stem which generated this [...] RDW-SD (test code = 40.3 fL 39.0-49.9 11158-4) RDW-CV (test code = 12.1 % 12.0-15.5 788-0) PLT (test code = See_Comment [Automated 777-3) message] The sy stem which generated this result transmitted reference range : 166 - 358 10*3/ ?L. The reference r kristen was not used to interpret this result as normal/abnormal . MPV (test code = 9.3 fL 9.5-12.9 L 23520-9) NRBC/100 WBC (test See_Comment [Automat ed code = 4592835981) message] The system which generated this result transmitted reference range : 0.0 - 10.0 /100 WBCs. The refer ence range was not u sed to interpret th is result as normal/abnormal . NRBC x10^3 (test code See_Comment [Auto mated = 1630325297) message] The s ystem which generated this result transmitted reference range : 10*3/?L. The reference range was not used to interpret this result as normal/abnormal . GRAN MAT (NEUT) % 73.4 % (test code = 770-8) IMM GRAN % (test code 0.50 % = 2103597726) LYMPH % (test code = 15.5 % 736-9) MONO % (test code = 8.2 % 5905-5) EOS % (test code = 2.1 % 713-8) BASO % (test code = 0.3 % 706-2) GRAN MAT x10^3(ANC) 7.55 10*3/uL 1.88-7.09 H (test code = 5812896170) IMM GRAN x10^3 (test 0.05 10*3/uL 0.00-0.06 code = 7472104972) LYMPH x10^3 (test code 1.60 10*3/uL 1.32-3.29 = 731-0) MONO x10^3 (test code 0.84 10*3/uL 0.33-0.92 = 742-7) EOS x10^3 (test code = 0.22 10*3/uL 0.03-0.39 711-2) BASO x10^3 (test code 0.03 10*3/uL 0.01-0.07 = 704-7) Lab Interpretation Abnormal (test code = 65886-2) [facility] URINALYSIS W/O SPECIFIC [id number] 20:09:00 Test Item Value Reference Range Interpretation [...] code = 3257) n/a Negative - Negative [facility] URINALYSIS W/O SPECIFIC [id number] 16:00:00 Test Item Value Reference Range Interpretation [...] code = 3257) N/A Negative - Negative [facility] URINALYSIS W/O SPECIFIC [id number] 16:00:00 Test Item Value Reference Range Interpretation [...] code = 3257) N/A Negative - Negative [facility] W/O SPECIFIC [id number] 16:00:00 Test Item Value Reference Range Interpretation [...] code = 3257) N/A Negative - Negative [facility] W/O SPECIFIC [id number] 16:00:00 Test Item Value Reference Range Interpretation [...] code = 3257) N/A Negative - Negative [facility] W/O SPECIFIC [id number] 16:00:00 Test Item Value Reference Range Interpretation [...] code = 3257) N/A Negative - Negative [facility] W/O SPECIFIC [id number] 16:00:00 Test Item Value Reference Range Interpretation [...] code = 3257) N/A Negative - Negative [facility] [id number] 18:43:00 Test Item Value Reference Range Interpretation Comments POCT PREG (test code = 1605) Negative On board controls acceptable with C Yes Line (test code = 3574) POCT PREG LOT # (test code = 3575) POCT PREG TEST DATE (test code = 3576) [facility] [id number] 18:43:00 Test Item Value Reference Range Interpretation Comments POCT PREG (test code = 1605) Negative On board controls acceptable with C Yes Line (test code = 3574) POCT PREG LOT # (test code = 3575) POCT PREG TEST DATE (test code = 3576) [facility] [id number] 18:43:00 Test Item Value Reference Range Interpretation Comments POCT PREG (test code = 1605) Negative On board controls acceptable with C Yes Line (test code = 3574) POCT PREG LOT # (test code = 3575) POCT PREG TEST DATE (test code = 3576) [facility] [id number] 15:29:00 Test Item Value Reference Range Interpretation Comments POCT PREG (test code = 1605) Negative On board controls acceptable with C Yes Line (test code = 3574) POCT PREG LOT # (test code = 3575) POCT PREG TEST DATE (test code = 3576) [facility] [id number] 15:29:00 Test Item Value Reference Range Interpretation Comments POCT PREG (test code = 1605) Negative On board controls acceptable with C Yes Line (test code = 3574) POCT PREG LOT # (test code = 3575) POCT PREG TEST DATE (test code = 3576) [facility]- US TRANSVAGINAL NON [id number] 09:32:00 [facility] 1990 Sex: F Patient Name: BROOKE THOMAS Unit No: [id number] EXAMS: CPT CODE: [id number] [place] 94928W1 TIME OF STUDY: 02/20/2021 REASON FOR EXAM: ovarain cyst COMPARISON: CT on the same date. TECHNIQUE: Transvaginal sonogram was performed. FINDINGS: Transvaginal sonogram: The uterus is anteverted. It measures 3.3 cm in length, 4.4 cm AP, and 5.1 cm transverse. No focal myometrial masses are seen. Theendometrium echo stripe has a normal appearance and [...] Technologist:Sophy Stevenson Trnscrbd D/ (0932) JacobSI1 Probe: [id number] Orig Print D/T: S: 02/20/2021(0935) Probe: ELISABETH Cavanaugh NAME: BROOKE THOMAS [address] [place] [address] Bl PHYS: Indira [place], [place] [address] : 1990 AGE: 30 SEX: F LOC: B.ERS PHONE #: [phone] EXAM DATE: 02/20/2021 STATUS: REG ER FAX #: [phone] RAD NO: Page 1 Signed ReportLACTIC [id number] 09:17:00 Test Item Value Reference Range Interpretation Comments LACTIC ACID (test 2.1 mmol/L 0.4-2.0 H ON 1 AT 0917, code = LACT) B.LAB.EJK GOODEN D TO JASSON HUNTER. T he report was conf irmed by read back parrish cols Y,N: YES. Criti senait values after th e first occurrence are excluded. - CT ABD PELVIS [id number] 08:35:00 [facility] : 1990 Sex: F Patient Name: BROOKE THOMAS Unit No: [id number] EXAMS: CPT CODE: [id number] CT ABD PELVIS W/CONT 47808 EXAM: - CT ABD PELVIS W/CONT LOCATION: [...] cm cystlike lesion in the left ovary. [facility] NAME: BROOKE THOMAS [address] [place] [address] PHYS: VIKTORIYA - Indira Tyler [place], [place] [address] : 1990 AGE: 30 SEX: F LOC: B.ERS PHONE #: [phone] EXAM DATE: 02/20/2021 S TATUS: REG ER FAX #: [phone] RAD #: D/C DT PAGE 1 Signed Report (CONTINUED) Patient Name: BROOKE THOMAS Unit No: [id number] EXAMS: CPT CODE: [id number] CT ABD PELVIS W/CONT 37736 <Continued> No evidence of obstructive uropathy. at 0835 Reported and signed by: Adelso Adler MD CC: Indira MARIE Dictated Date/Time: 02/20/2021 (0835) Technologist: Orlando Burgos CTDI: 9.22 DLP: 492.32 Trnscrpt: 02/20/2021 (0835) JacobHV2 ELISABETH Cavanaugh NAME: BROOKE THOMAS [address] [place] [address] PHYS: VIKTORIYA TylerIndira MARIE [place] [address] : 1990 AGE: 30 SEX: F LOC: B.ERS PHONE #: [phone] EXAM DATE: 02/20/2021 STATUS: REG ER FAX #: [phone] RAD #: D/C DT PAGE 2 Signed Report Patient Name: BROOKE THOMAS Unit No: [id number] EXAMS: CPT CODE: [id number] CT ABD PELVIS W/CONT 57766 <Continued> Orig Print D/T: S: 02/20/2021 (0839) ELISABETH Cavanaugh NAME: SHALONDA,[address] PHYS: VIKTORIYA Indira Tyler [place]IA [place] [address] : 1990 AGE: 30 SEX: F LOC: B.ERS PHONE #: [phone] EXAM DATE: 02/20/2021 STATUS: REG ER FAX #: [phone] RAD #: D/C DT PAGE 3 Signed ReportBASIC METABOLIC [id number] 08:03:00 Test Item Value Reference Range Interpretation [...] message] (test code = Index/DL The system [employer] HEMINDEX) generated this result transmit ayde reference [...] this result as normal/abnormal . HEPATIC FUNCTION [id number] 08:03:00 Test Item Value Reference Range Interpretation [...] 86 Unit/L 45-117 N code = ALKP) [id number] 08:03:00 Test Item Value Reference Range Interpretation Comments LIPASE (test code = LIP) 50 Unit/L 114-286 L CBC W/O [id number] 07:54:00 Test Item Value Reference Range Interpretation [...] N MPV) UA RFLX MICR CULT IF [id number] 07:51:00 Test Item Value Reference Range Interpretation [...] LT 2018-06-06 18:55:00 FAX: Ortega Barrera MD [phone] [place]: E St: REG FAX: Efren Smith NP [phone] ----- Patient Name: BROOKE SYKES Unit No: [id number] EXAMS: CPT CODE: [id number] XR ELBOW 3 + [place] [address] EXAMINATION: - XRFOREARM 2 VIEWS LT, - [...] JacobPR7 Orig Print D/T: S: 06/06/2018 (1858) [facility] NAME: BROOKE SYKES [address] [place] [address] PHYS: TERE. - Efren Gonzalez NP, [place] [address] : 1990 AGE: 28 SEX: F LOC: STEPHANIE PHONE #: [phone] EXAM DATE: 06/06/2018 STATUS: REG ER FAX #: [phone] RAD NO: DC Dt: PAGE 1 Signed Report- XR FOREARM 2 VIEWS [id number] 18:55:00 FAX: Ortega Barrera MD [phone] [place]: E St: REG FAX: Efren Smith NP [phone] ----- Patient Name: BROOKE SYKES Unit No: [id number] EXAMS: CPT CODE: [id number] XR FOREARM [address] [place] [address] EXAMINATION: -XR FOREARM 2 VIEWS LT, - [...] Elise Stark Transcribed Date/Time: 06/06/2018 (1854) By: JacboPR7 Orig Print D/T: S: 06/06/2018 (1858) ELISABETH Cavanaugh NAME: BROOKE SYKES [address] [place] [address] PHYS: NIRJA. - Efren Gonzalez [place], [place] [address] : 1990 AGE: 28 SEX: F LOC: STEPHANIE PHONE #: [phone] EXAM DATE: 06/06/2018 STATUS: REG ER FAX #: [phone] RAD NO: DC Dt: PAGE 1 Signed Report- XR HAND 3 + V [id number] 18:54:00 FAX: Ortega Barrera MD [phone] [place]: St: REG FAX: Efren Smith NP [phone] ----- Patient Name: BROOKE SYKES Unit No: [id number] EXAMS: CPT CODE: [id number] XR HAND 3 + [place] [address] EXAMINATION: - XR WRIST 3 + V [...] 06/06/2018 (1856) ELISABETH Cavanaugh NAME: BROOKE SYKES [address] [place] [address] PHYS: TERE. - Efren Gonzalez [place], [place] [address] : 1990 AGE: 28 SEX: F LOC: STEPHANIE PHONE #: [phone] EXAM DATE: 06/06/2018 STATUS: REG FAX #: [phone] RAD NO: DC Dt: PAGE 1 Signed Report- XR WRIST 3 + V [id number] 18:54:00 FAX: Ortega Barrera MD [phone] [place]: St: REG FAX: Efren Smith NP [phone] ---- Patient Name: BROOKE SYKES Unit No: [id number] EXAMS: CPT CODE: [id number] XR WRIST 3 + [place] [address] EXAMINATION: - XRWRIST 3 + V LT, [...] Gonzalez NP Dictated Date/Time: 06/06/2018 (1853)Technologist: Elise Satrk Transcribed Date/Time: 06/06/2018 (1853) By: [email or web address] Orig Print D/T: S: 06/06/2018 (1856) ELISABETH Cavanaugh NAME: BROOKE SYKES [address] [place] [address] PHYS: NIRISABEL. - Efren Gonzalez NP [place], [place] [address] :1990 AGE: 28 SEX: F LOC: STEPHANIE PHONE #: [phone] EXAM DATE: 06/06/2018 STATUS: REG ER FAX #: [phone] RAD NO: DC Dt: PAGE 1 Signed Report- XR HUMERUS 2 + V [id number] 18:51:00 FAX: Ortega Barrera MD [phone] [place]: E St: REG FAX: Efren Smith NP [phone] ----- Patient Name: BROOKE SYKES Unit No: [id number] EXAMS: CPT CODE: [id number] XR HUMERUS 2 + V LT [address] EXAMINATION: - XR HUMERUS 2 + V [...] D/T: S: 06/06/2018 (1854) ELISABETH Cavanaugh NAME: BROOKE SYKES [address] [place] [address] PHYS: TERE. - Efren Gonzalez NP [place], [place] [address] : 1990 AGE: 28 SEX: F LOC: MarisabelFERNANDA PHONE #: [phone] EXAM DATE: 06/06/2018 STATUS: REG ER FAX #: [phone] RAD NO: DC Dt: PAGE 1 Signed Report- XR SHOULDER 2 + V [id number] 18:50:00 FAX: Ortega Barrera MD [phone] [place]: St: REG FAX: Efren Smith NP [phone] ----- Patient Name: BROOKE SYKES Unit No: [id number] EXAMS: CPT CODE: [id number] XR SHOULDER 2 + V LT [address] EXAMINATION: -XR SHOULDER 2 + V LT. [...] [email or web address] Orig Print D/T: S: 06/06/2018 (1852) [facility] [place] NAME: BROOKE SYKES[address] PHYS: Efren Red NP [place], [place] [address] : 1990 AGE: 28 SEX: F LOC: B.ERS PHONE #: [phone] EXAM DATE: 06/06/2018 STATUS: REG ER FAX #: [phone] RAD NO: DC Dt: PAGE 1 Signed Report Notes Date/Time Note Provider Source 2022-12-12 0027-49-92Q79:10:33Formatting of Lilian Quinonez [facility] 14:10:33 this note might be different from MARYJANE the original.Noted. 67086-0Oxpxwkdtu encounter DfjoVB3270-93-66O70:10:48Telephone encounter NoteTXT1.2.840.960800.1.13.104.2.7.2 .751502|[id number] for patient cjgr10152-7KrrqIZ031055201Nfstroxv Garcia [id number] BWRRDTINCLSILTSEVYIUQS3776-55-15E25: 10:481.2.840.065733.1.72.3.15|1.2.84 0.182463.1.13.104.2.7.2.727879_18862 92807 2022-12-12 0425-51-71W21:56:02Formatting of Gagan Meza [facility] 13:56:02 this note might be different from the original.Patient in clinic for [facility] stating that she has been in the ER for vomiting all night; states that she just wants to feel better. Scheduled patient to be seen today at 2:00 with provider. 66857-7Wzennejzl encounter XamlJW8019-81-23B07:03:26Telephone encounter NoteTXT1.2.840.163437.1.13.104.2.7.2 .268246|[id number] for patient liiw79604-6NdzxIL12419254Mopccev [id number] CCKJSVDYKXIQZHRUUZLEDG8725-90-10G28: 03:261.2.840.834352.1.72.3.15|1.2.84 0.807052.1.13.104.2.7.2.727879_18862 41388 2022-11-17 3277-91-42W27:52:37Formatting of Amber santos [facility] 12:52:37 this note might be different from the original.Notified patient of low risk NIPT results. No further questions or testing desired at this time. Results released to patient via [employer] portal. 53318-6Toybpwnpl encounter KfdfXQ6257-55-25D87:55:20Telephone encounter NoteTXT1.2.840.048137.1.13.104.2.7.2 .601934|[id number] for patient [id number] NarayananUTMB[address] [id number] IRERCDFTTQSSQZAGSUPSAF5364-05-76E31: 55:201.2.840.685655.1.72.3.15|1.2.84 0.256826.1.13.104.2.7.2.727879_18668 25001 2022-11-10 4127-37-61O83:35:01Formatting of [facility] 13:35:01 this note might be different from the original.Pt in clinic for labs, discussed problem list with patient. Pt was seen by genetic counselor and reports all questions answered. Verbalized understanding.Lorna Tucker RN 11/10/22 1:35 PM 59229-6Dgdvaoskw encounter NpclEN8226-58-69F45:35:48Telephone encounter NoteTXT1.2.840.123410.1.13.104.2.7.2 .270841|[id number] for patient [id number] ILPXEMNULYSULYGFQORCZX1927-21-83R51: 35:481.2.840.706193.1.72.3.15|1.2.84 0.768970.1.13.104.2.7.2.727879_18613 03725 2022-11-10 7625-51-60H79:43:08Formatting of [facility] 11:43:08 this note might be different from the original.Suboxone maintenance treatment complicating , antepartumThat was put on her problem list by amena betancourt her pcp. Is she not on suboxone treatment anymore? If not I can put a comment on her problem. What labs does she have question about?CAROLYNE Mueller 11/10/2022 11:44 AM 22359-4Ptbhhmgyn encounter SdbsFK1967-17-67C57:44:58Telephone encounter NoteTXT1.2.840.947403.1.13.104.2.7.2 .252529|[id number] for patient [id number] QIZUVSVPZSYKXBZXATHNVP8911-77-73H59: 44:581.2.840.436508.1.72.3.15|1.2.84 0.873568.1.13.104.2.7.2.727879_18612 32484 2022-11-10 3816-83-97Y24:04:57Formatting of [facility] 10:04:57 this note might be different from the original.Called pt x 2. No answer. No vm box set up.Lorna Tucker RN 11/10/22 10:05 AM 72885-4Elciypjyx encounter CjehBE9444-33-17E28:06:21Telephone encounter NoteTXT1.2.840.614121.1.13.104.2.7.2 .707925|[id number] for patient [id number] BTDHTENQEEKMMBTTQWIFLY1434-61-69B00: 06:211.2.840.649659.1.72.3.15|1.2.84 0.815883.1.13.104.2.7.2.727879_18610 57874 2022-11-10 8460-27-74Z81:50:02Formatting of Clarisa schmitt [facility] 08:50:02 this note might be different from the original.Pt requesting call back, states she was looking through her MyChart results and would like clarification. Please call [phone]. 38035-5Tyzyiezdk encounter KjymEW1593-16-90K22:51:44Telephone encounter NoteTXT1.2.840.891599.1.13.104.2.7.2 .051079|[id number] for patient pijx1635045Fqpcm L [id number] BRGZGSCITKPQRNWOLVRSXE8485-38-47R96: 51:441.2.840.045084.1.72.3.15|1.2.84 0.229445.1.13.104.2.7.2.727879_18610 08396 2022-11-07 9961-37-41G23:53:06Formatting of [facility] 15:53:06 this note might be different from the original.Called pt, pt asking if quad screen wnl, advised no quad screen drawn. Advised pt she is out of the gestational window for quad screen. Pt has genetics appt on 11/10/2022, advised pt to keep appt to discuss genetic lab options outside of the quad screen. Pt verbalized understanding. Lorna Tucker RN 11/07/22 3:54 PM 20090-3Cqjzaayvg encounter HlcgXT7335-38-11I18:55:21Telephone encounter NoteTXT1.2.840.536840.1.13.104.2.7.2 .874103|[id number] for patient [id number] ZOLVBVAMFSFPYKERWOGFPK6917-99-51U85: 55:211.2.840.328974.1.72.3.15|1.2.84 0.159674.1.13.104.2.7.2.727879_18584 75213 2022-11-07 3601-77-75W88:35:55Formatting of Silva Coleman [facility] 15:35:55 this note might be different from the original.Brooke Thomas is a 32 year old femalePt is calling wanting to know if genetic testing is normal or if there is something [place] [address]-4Deixqbvbu encounter WswdQZ2437-86-24L19:36:51Telephone encounter NoteTXT1.2.840.961644.1.13.104.2.7.2 .484950|[id number] for patient ppec845504387Sjsbrt M [id number] QHHDOVIMVAYWUTSYNSKXTA7401-48-98B54: 36:511.2.840.948946.1.72.3.15|1.2.84 0.538135.1.13.104.2.7.2.727879_18584 29435 2021-02-20 IY88803383918323-73-07Q63:25:00 [facility] 07:25:00 [facility] ([facility] PROVIDER REPORTREPORT#:[id number] REPORT STATUS: SignedDATE:02/20/21 TIME: 724 PATIENT: BROOKE THOMAS UNIT #: [id number]#: [id number] ROOM/BED:AGE: 30 SEX: F PCP PHYS: No Primary or Family PhysicianSERVICE AUTHOR: Indira Tyler * ALL edits or amendments must be made on the electronic/computer document * Inidra Tyler 02/20/21724:HPI-Abd Pain F Under 40 GeneralConfirmed Patient YesPatient Type New patientInitial Greet Date/Time 02/20/21 07Assumed Care at Time 725 Date 02/20/21PCPNone PresentationChief Complaint Diarrhea mild, Flank pain R, Flank pain L, Nausea, Vomiting moderateHx Obtained From PatientSudden in Onset? NoOnset Occurred YesterdaySymptom Duration ConstantProgression since Onset Constant, Gradually worseningLocation Flank right, Flank leftQuality StabbingRadiationAbdomen lower. Migration/Movement NoneSeverity: Current Pain level 6 out of 10Associated withReports: Chills, Nausea, Urinary frequency, Vomiting. Denies: Chest pain, Constipation, Diarrhea, Dysuria, Fever, Hematemesis, Hematochezia, Hematuria, Melena, Shortness of breath, Urinary retention, Urinary tract symptoms, Vaginal bleeding, Vaginal discharge. Associated Other Pt denies other symptomsExacerbated by NothingRelieved by Nothing ContextRelated HistoryReports: Urolithiasis. Denies: Cholecystitis, Cholelithiasis, Current , GERD, Ureterolithiasis, Urinary tract infection. Immunization Status General UnknownRecent Healthcare No recent doctor visit, No recent hospitalizationSimilar Sx Previous YesPregnancy/Sexual Hx Sexual History/ Control Reports: IUD. Free Text HPI NotesFree Text HPI Bkmjm44-omtl-dom female with past medical history of depression, renal calculi, presents to the ER, complaining of bilateral flank pain, and lower abdominal pain that started yesterday, associated with nausea and vomiting, she has had multiple episodes of vomiting and she has had about 2-3 episodes of diarrhea, the pain is constant, associated with chills, 6/10 at this time, the pain gets worse when she is having vomiting episodes. She denies any blood in her stool, fevers, UTI symptoms, pelvic pain, vaginal discharge, vaginal bleeding. Risk-Abd Pain F Under 40)( Ectopic Risk factors reviewed Review of Systems ROS StatementsAll systems rev neg except as marked. Basic Review of SystemsBasic ROS EYES: No redness, ENT: No sore throat, HEM: No bleeding/bruising, SKIN: No rash, NEURO: No change MS, NEURO: No focal deficit, PSYCH: NL thought content Focused Review of SystemsConstitutionalReports: Chills. Denies: Fever. RespiratoryDenies: Cough, non-productive, Cough, productive, Dyspnea on exertion, Hemoptysis, Parox nocturnal dyspnea, Pleuritic pain, Shortness of breath, Wheezing. CardiovascularDenies: Chest pain, Dyspnea on exertion, Edema, Orthopnea, Palpitations, Parox nocturnal dyspnea, Syncope. GIReports: Abdominal pain, Diarrhea, Nausea, Vomiting. Denies: Constipation, Dysphagia, Hematemesis, Hematochezia, Mucousy stool, Melena. FemaleDenies: Dysuria, Flank pain, Hematuria, Incontinence, Nocturia, Pelvic pain, , Urinary frequency, Urinary urgency, Urination decreased, Urination increased, Vaginal bleeding - abnl, Vaginal discharge. MusculoskeletalDenies: Back pain. Past Medical History - AdultStated Complaint ABDOMINAL PAINAllergiesCoded Allergies:Penicillins (Intermediate, RASH 02/20/21) Calculated Suicide Risk (nurs) No riskReview of Nursing Notes Unavailable at this timePast Medical History:Reports: Depression/mood disorder, Kidney disease/stones. Additional Surgical HistorynoneDrug Use MarijuanaSmoking status: Smoking status for patients 13 years old or older: Current every day smoker Physical Exam Vital SignsVital SignsFirst Documented: Result Date Time Pulse Ox 100 02/20 0709 B/P 103/63 02/20 709 B/P Mean 76 02/20 709 O2 Delivery Room air 02/20 709 Temp 97.3 02/20 709 Pulse 114 02/20 07 Resp 20 02/20 709 Last Documented: Result Date Time Pulse Ox 100 02/20 1030 B/P 114/59 02/20 1030 B/P Mean 77 02/20 1030 O2 Delivery Room air 02/20 1030 Temp 98.6 02/20 1030 Pulse 80 02/20 1030 Resp 16 02/20 1030 Review of Vital Signs Reviewed Focused PEGeneral/Const General/Const Awake, Alert Distress/Hydration Distress mild. MS Head Head NormocephalicEyes Eyes Atraumatic, PERRL, EOMIEars/Nose/Throat Ears/Nose/Throat Atraumatic, Airway patent Mouth Mucous membranes dry. Resp/Chest Respiratory/Chest Atraumatic, Breath sounds NL, Breath sounds = bilat, No respiratory distress, No rales, No rhonchi, No wheezing, No retractionsCardiovascular Cardiovascular Regular rhythm, Heart sounds NL, No murmurs, Cap refill not delayed Heart Rate/Rhythm Tachycardia. Abdomen/GI Abdomen/GI Soft Tenderness/Guarding/Rebound Tender diffuse, Tender flank R, Tender flank L. MS Back Back Inspection NL, Painless range of motion, No midline vertebral tend Flank/Spine/Paraspinal Flank tender bilateral. Skin Skin Color NL, No rash, Warm, Dry, Intact, Turgor NL, No swellingNeurologic Neurologic Oriented X3, Speech NL, No motor deficits, Gait NL Interpretation Diagnostics Lab Results InterpretationConsiderations Independ review imagingResultsLaboratory Tests 02/20/21 0736:[Embedded Image Not Available]Laboratory Tests: 02/20 02/20 0832 0736 Chemistry Sodium [...] L Specimen Appearance (1 NORMAL Index/DL) 1 NORMAL <2 MG Specimen Hemolysis (1 NORMAL Index/DL) [...] DESCRIPT) YELLOW Urine Appearance (CLEAR DESCRIPT) TURBID (1+)HAZY-CLDY H Urine pH (4.6 - 8.0 pH UNITS) 6.5 Ur Specific [place] (1.001 - 1.035 SG) 1.026 Urine Protein (<30 (1+) mg/dL) NEGATIVE (0) Urine Glucose (UA) (0 (NORMAL) mg/dL) NORMAL (0) Urine Ketones ((NEG) 0 mg/dL) NEGATIVE (0) [...] (NEG) NEGATIVE Urine Comment (SpecComment NoteSPEC) CLEAN CATCH SPEC Microbiology: Date/Time Procedure - Status Source Growth 02/20 839 Blood Culture - COMP BLOOD 02/20 839 Blood Culture - COMP BLOOD 02/21 832 Blood Culture - COMP BLOOD 02/21 832 Blood Culture - COMP BLOOD Recent Impressions:CAT SCAN - CT ABD PELVIS W/CONT 02/21 812 Report Impression - Status: SIGNED Entered: 02/20/2021838 IMPRESSION: 2.2 cm cystlike lesion in the left ovary. No evidence of obstructive uropathy.Impression By: [email or web address] - Adelso Adler MDULTRASOUND - US TRANSVAGINAL NON OB 02/20 851 Report Impression - Status: SIGNED Entered: 02/20/2021 0935 IMPRESSION: 1. No focal uterine masses. IUD in place in the endometrium.2. No adnexal masses. 2.2 cm dominant left ovarian follicle, otherwiseunremarkable ovaries.Impression By: Julianna Miranda MD Lab Imaging StatementLaboratory radiographic studies reviewed and considered in the medical decision-making. Point of Care TestingUrinalysis Interpretation Urinalysis NLPulse Oximetry Pulse Ox % 100 On: Room air Interpretation Interpreted by me, Pulse oximetry normal Time 0726 Lab StudiesCBC Interpretation CBC normal except, WBC elevatedBMP/CMP Interpretation BMP/CMP NL Re-Evaluation MDM )( Re-Evaluation/Progress #1Text/Dict NotePatient's WBC is elevated, UA is negative for UTI will start secondary sepsis work-up.Discussed this with the patient, awaiting for rest of her labs and a CAT scan viraj done.Time of Re-Eval 0802)( Re-Eval Status UnchangedPlan Post Re-Eval Additional diag testing Re-Evaluation/Progress #2Text/Dict NoteThe patient is sleeping in the room, woke her up, she reports that her pain has resolved after she got the medications in the ER.Discussed with her electrolytes are within normal limits, lipase is normal, liver enzymes are within normal limits.Discussed with her her CT scan without any acute findings other than a left ovarian cyst, will proceed and do transvaginal ultrasound.At this point the patient reports that she has a history of endometriosis and has had ovarian cyst intermittently for several years. She reports she will intermittently have lower abdominal pain due to her ovarian cystTime of Eval 0846Re-Eval Status Resolved (pain resolved.)Plan Post Re-Eval Additional imaging Re-Evaluation/Progress #3Text/Dict NotePatient's pain has resolved since his been in the ER, repeat abdominal examination is unremarkable, discussed with the patient that her transvaginal ultrasound did reveal an ovarian cyst, no concerns of torsion at this time, blood flow is normal.Again discussed all the lab results with the patient, CBC revealed elevated WBCcount, electrolytes are within normal limits, UA was negative for UTI other thanturbid urine.UPT was negative. Lactic acid was 2.1 but she has received fluids in the ER.As the patient does have vomiting will discharge on Zofran, and will discharge on Flagyl for her tract diarrhea, advised to hydrate herself to avoid dehydration.She is advised to follow-up with Manuela Hammer as she does not have a primary care physician, discussed the CT scan results which was without any acute findings ofany cholelithiasis, cholecystitis, diverticulitis, appendicitis, bowel obstruction.Her lipase was normal, and hepatic function was normal.She will be discharged on antibiotics, dicyclomine, and Zofran. She is advised to follow-up with Manuela Hammer, strict return precautions were given to return for worsening symptoms she is comfortable with the plan of discharge verbalized understanding when to return.Time of Eval 1010Re-Eval Status Resolved (pain)Eval Following Treatment Pt. feels better, Condition improved, Tolerate liquids,no N/VPain Re-Evaluation Denies painExam Post Tx - General Active, Alert, Vital signs stableExam Post Tx - Sys Review Abdomen soft, Abdomen nontenderPlan Post Re-Eval Plan discharge Abd Pain MDM Note F < 40The patient is resting comfortably and feels better, is alert and in no distress. The repeat examination is unremarkable and benign; in particular, there is no discomfort at McBurney's point. The history, exam, diagnostic testing, and current condition do not suggest acute appendicitis, bowel obstruction, tubovarian abscess, ectopic , ovarian torsion, acute cholecystitis, bowel perforation, major gastrointestinal bleeding, severe diverticulitis, sepsis, or other significant pathology to warrant further testing, continued ED treatment, admission, or surgical evaluation at this point. The vital signs have been stable. The patient does not have uncontrollable pain, intractable vomiting, or other significant symptoms. The patient's condition is stable and appropriate for discharge. The patient will pursue further outpatient evaluation with the primary care physician or other designated or consulting physician as indicated in the discharge instructions. ED CourseMedication(s) OrderedMedication(s) Ordered:Anti-Infective Agents Sig/Marynane Start time Last Medication Dose Route Stop [...] 75 ML .STK-MED ONE 02/20 811 DC 02/20 IV 02/21 812 0811 Electrolytic, Caloric, And Trey Sig/Maryanne Start time Last Medication Dose Route Stop Time Status Admin Sodium Chloride 250 ML X1ED STA 02/20 801 DC 02/20 IV 02/20 900 0844 Sodium Chloride 1,000 ML X1ED STA 02/21 724 DC 02/20 IV 02/20 823 0744 Gastrointestinal Drugs Sig/Maryanne Start time Last Medication Dose Route Stop Time Status Admin Ondansetron HCl 4 MG X1ED PRN PRN 02/20 730 DC 02/20 IV 07 Patient Discharge Departure Vital Signs/ConditionVital SignsFirst Documented: Result Date Time Pulse Ox 100 02/20 0709 B/P 103/63 02/20 07 B/P Mean 76 02/20 709 O2 Delivery Room air 02/20 709 Temp 97.3 02/20 709 Pulse 114 02/20 0709 Resp 20 02/20 709 Last Documented: Result Date Time Pulse Ox 100 02/20 1030 B/P 114/59 02/20 1030 B/P Mean 77 02/20 1030 O2 Delivery Room air 02/20 1030 Temp 98.6 02/20 1030 Pulse 80 02/20 1030 Resp 16 02/20 1030 All vital signs available at the time of this entry have been reviewed. Condition Stable Clinical ImpressionClinical ImpressionPrimary Impression: Abdominal painSecondary Impressions: Diarrhea, UTI (urinary tract infection), VomitingTime of Impression 1010 Disposition DecisionDischarge )( Discharged to Home Yes )( Time 1010 )( Date 02/20/21 Discharge/Care PlanCounseled Regarding Diagnosis, Lab results, Imaging studies, Prescriptions, Needfor follow-up, When to return to ED(Auto) PrescriptionsCurrent Visit ScriptsCEPHALEXIN (KEFLEX) 500 MG PO Q6H CEPHALEXIN (KEFLEX) 500 MG PO Q6H #28 CAPS ONDANSETRON ODT (ZOFRAN ODT) 4 MG PO Q6H PRN PRN NAUSEA/VOMITING ONDANSETRON ODT (ZOFRAN ODT) 4 MG PO Q6H PRN PRN NAUSEA/VOMITING #15 TABS DICYCLOMINE (BENTYL) 10 MG PO Q6H PRN PRN ABDOMINAL PAIN/CRAMPING DICYCLOMINE (BENTYL) 10 MG PO Q6H PRN PRN ABDOMINAL PAIN/CRAMPING #30 CAPS metroNIDAZOLE (FLAGYL) 500 MG PO TID metroNIDAZOLE (FLAGYL) 500 MG PO TID #21 TABS Prescriptions Reviewed Risks, Benefits, Alternative treatmentPatient Instructions Abdominal Pain, ED Diarrhea, Unknown Cause, ED Ovarian Cyst, ED Vomiting (Adult)Additional InstructionsHydrate yourself well, take the medications as advised.Stay on a liquid diet for the next 24 hours and then advance as tolerated avoid fried and greasy foods.Follow-up with Manuela Hammer.Return for worsening symptoms.[facility] Departure FormsWORK/SCHOOL EXCUSE-CAREGIVER 2 Discharge NoteI have spoken with the patient and/or caregivers. I have explained the patient'scondition, diagnoses and treatment plan based on the information available to meat this time. I have answered the patient's and/or caregiver's questions and addressed any concerns. The patient and/or caregivers have as good an understanding of the patient's diagnosis, condition and treatment plan as can beexpected at this point. The vital signs have been stable. The patient's condition is stable and appropriate for discharge from the emergency department. The patient will pursue further outpatient evaluation with the primary care physician or other designated or consulting physician as outlined in the discharge instructions. The patient and/or caregivers are agreeable to this planof care and follow-up instructions have been explained in detail. The patient and/or caregivers have received these instructions in written format and have expressed an understanding of the discharge instructions. The patient and/or caregivers are aware that any significant change in condition or worsening of symptoms should prompt an immediate return to this or the closest emergency department or a call to 911. Quality MeasuresPreg Test for Women w/Abd Pain Female age 14-50, Complaint of abdominal pn, Any preg test ordered Free Text Depart NotesFree Text Depart NotesStrict return precautions are given. Praveen Lizarraga 02/28/21 0915:Patient Discharge Departure Supervising Physician Note MidLv Saw Pt AloneI have reviewed the PA/GENERAL ACCOUNTING CLERK's note and plan of care. I was available for consultation as needed at all times during the patient's visit in the emergency department. I agree with the clinical impression, plan and disposition. at 1457 at 0915RPT #:[id number] OF REPORTEDEmergency department gnnumd6141-34-78F70:25:00B.[phone] for patient xnjfRHDBPNCOHITOQN6455-98-68M22:57:2 5 2018-06-06 VRsuunfsoqy05804453901-95-62E52:02:0 [facility] 18:02:00 0 [facility]EM[facility] PROVIDER REPORTREPORT#:[id number] REPORT STATUS: SignedDATE:06/06/18 TIME: 1801 PATIENT: BROOKE SYKES UNIT #: [id number]#: [id number] ROOM/BED:AGE: 28 SEX: F PCP PHYS: No Primary or Family PhysicianSERVICE AUTHOR: Efren Gonzalez NP * ALL edits or amendments must be made on the electronic/computer document * HPI-Trauma Minor/Fall GeneralConfirmed Patient YesPatient Type New patientInitial Greet Date/Time 06/06/18 1717 PresentationChief Complaint Fall, Extremity painHx Obtained From PatientOnset Occurred TodaySymptom Duration Since onsetProgression since Onset UnchangedCaused by AccidentalTiming of Trauma Date of Trauma 06/06/18 Time of Trauma 1700Context: Occurred at Home injuryLocation Upper extremity LSeverity: Current Pain level 9 out of 10Associated withDenies: Abdominal pain, Chest pain, Loss of consciousness, Shortness of breath. Exacerbated by Movement, PalpationRelieved by Nothing ContextImmunization Status General UnknownRecent Healthcare No recent doctor visit, No recent hospitalizationSimilar Sx Previous NoPregnancy/Sexual Hx Status Denies Free Text HPI NotesFree Text HPI NotesPatient is a 28-year-old female that comes to the emergency department with chief complaint of fall at home at 1700. Patient reports she was on her front porch and turned and fell onto the left elbow. Patient reports pain to left shoulder, humerus, elbow, forearm, wrist, hand. Patient denies hitting head, denies loss of consciousness. Patient denies headache, neck pain, chest pain, back pain. Patient denies vision changes and loss of bowel and bladder control. Patient denies . Risk-Trauma Minor/Fall Risk StratificationGlasgow Coma Score > Age 5 [place] Coma Score > Age 5 Response Value Eye Opening Open spontaneously (4) 4 Verbal Response Oriented (5) 5 Motor Response Obeys commands (6) 6 Total 15 Review of Systems ROS StatementsAll systems rev neg except as marked. Focused Review of SystemsConstitutionalDenies: Chills, Fatigue, Fever. EyesDenies: Blurred bilat, Discharge bilat, Eye pain bilat, Redness bilat. Ears/Nose/ThroatDenies: Ear drainage bilat, Ear ringing bilat, Earache bilat, Hearing loss bilat. RespiratoryDenies: Cough, non-productive, Cough, productive, Shortness of breath. MusculoskeletalReports: Extremity pain. Denies: Myalgia, Neck pain. SkinDenies: Rash. NeurologicDenies: Bladder dysfunction, Bowel dysfunction, Syncope. Past Medical History - AdultStated Complaint fell on elbowAllergiesCoded Allergies:Coconut (Severe, THROAT SWELLS 09/24/17) Home MedicationsActive ScriptsHYDROcodone/APAP (VICODIN 5/300) 1 TAB PO Q4H PRN PRN ABDOMINAL CRAMPS/PAIN MDD 6 HYDROcodone/APAP (VICODIN 5/300) 1 TAB PO Q4H PRN PRN ABDOMINAL CRAMPS/PAINMDD 6#30 TABS Prov: 09/26/17 Reported MedicationsENOXAPARIN (LOVENOX) 40 MG SUBQ Q24H GABAPENTIN (NEURONTIN) 300 MG PO BID ACETAMINOPHEN/CODEINE (TYLENOL WITH CODEINE #4 300/60 MG) 1 TAB PO TID fentaNYL (DURAGESIC) 25 MCG.PER.HR TRANSDERM Q72H DICYCLOMINE (BENTYL) 10 MG PO BID BACLOFEN (LIORESAL) 20 MG PO DAILY CYANOCOBALAMIN (VITAMIN B-12) 500 MCG PO DAILY ACETAMINOPHEN (TYLENOL) 325 MG PO Q6H PRN PRN PAIN Additional Medical HistoryendometriosisPast Surgical History:Denies: Abdominal surgery. Alcohol Use Denies EtOH useDrug Use Denies recreational drugsSmoking status for patients 13 years old or older: Current every day smoker Physical Exam Vital SignsVital SignsFirst Documented: Result Date Time Pulse Ox 100 [...] 1714 Pulse 84 06/06 1714 Resp 06/06 Review of Vital Signs Reviewed Focused PEGeneral/Const General/Const Awake, Alert, No acute distress, Well developed, Well hydrated,Well nourished, Cooperative, Not toxic appearing Appearance/Presentation Uncomfortable. MS Head Head Atraumatic, NormocephalicEyes Eyes Atraumatic, PERRL, EOMI, No nystagmusEars/Nose/Throat Ears/Nose/Throat Atraumatic, Airway patent, Mucous membranes moistMS Neck Neck Atraumatic, Supple, No meningismus, Full range of motion, No midline vertebral tendResp/Chest Respiratory/Chest Atraumatic, Breath sounds NL, Breath sounds = bilat, No respiratory distressCardiovascular Cardiovascular Heart rate NL, Regular rhythm, Heart sounds NL, Cap refill notdelayed, Peripheral circulation NLAbdomen/GI Abdomen/GI Atraumatic, Soft, Non-tenderMS Back Back Atraumatic, Inspection NL, Full range of motion, Painless range of motion, No midline vertebral tendMS Upper Extrem Upper Extremity/MS No deformity, Neurologic intact, Vascular intact Left Shoulder Tenderness present. Left Upper Arm Tenderness present. Left Elbow Tenderness present. Left Forearm Tenderness present. MS Wrist/Hand Wrist/Hand No deformity, Neurologic intact, Vascular intact Left Wrist Tenderness present. Left Hand Tenderness present. MS Lower Extrem Lower Ext/Pelvis/MS Atraumatic, Inspection NL, Full range of motionMS Ankle/Foot Ankle/Foot Atraumatic, Inspection NL, Full range of motionSkin Skin Atraumatic, Color NL, No rash, Warm, Dry, Intact, Turgor NL, No swellingNeurologic Neurologic Oriented X3, Speech NL, No motor deficits, No sensory deficits, Cerebellar NL, Memory NL, Gait NL Interpretation Diagnostics Lab Results InterpretationResultsRecent Impressions:RADIOLOGY - XR HAND 3 + V LT 06/06 181 Report Impression - Status: SIGNED Entered: 06/06/2018 1857 IMPRESSION:No acute osseous abnormality is identified.Impression By: [email or web address] - Pau Cardenas, MDRADIOLOGY - XR WRIST 3 + V LT 06/06 1813 Report Impression - Status: SIGNED Entered: 06/06/2018 1857 IMPRESSION:No acute osseous abnormality is identified.Impression By: [email or web address] - Pau Cardenas, MDRADIOLOGY - XR FOREARM 2 VIEWS LT 06/06 181 Report Impression - Status: SIGNED Entered: 06/06/2018 1859 IMPRESSION:No acute osseous abnormality is identified.Impression By: [email or web address] Wen Cardenas, MDRADIOLOGY - XR ELBOW 3 + V LT 06/06 181 Report Impression - Status: SIGNED Entered: 06/06/2018 1859 IMPRESSION:No acute osseous abnormality is identified.Impression By: [email or web address] - Pau Cardenas, MDRADIOLOGY - XR HUMERUS 2 + V LT 06/06 181 Report Impression - Status: SIGNED Entered: 06/06/2018 1855 IMPRESSION:No acute osseous abnormality is identified.Impression By: [email or web address] - Pau Cardenas, MDRADIOLOGY - XR SHOULDER 2 + V LT 06/06 181 Report Impression - Status: SIGNED Entered: 06/06/2018 1853 IMPRESSION:No acute osseous abnormality is identified.Impression By: Oliver Cardenas MD Imaging StatementRadiographic studies reviewed and considered in the medical decision-making. Re-Evaluation MDM Free Text MDM NotesFree Text MDM NotesPatient's arm placed in sling. Discussed diagnostic results with patient. Patient to be discharged with prescription for pain medicine. Patient given return precautions. Patient agrees to plan. ED CourseMedication(s) OrderedMedication(s) Ordered:Central Nervous System Agents Sig/Maryanne Start time Last Medication Dose Route Stop Time Status Admin Hydrocodone Bitart/ 1 TAB X1ED STA 06/06 1800 DC 06/06 Acetaminophen PO 06/06 180 1810 Patient Discharge Departure Vital Signs/ConditionVital SignsFirst Documented: Result Date Time Pulse Ox 100 06/06 1715 B/P 137/81 06/06 1715 B/P Mean 99 06/06 1715 O2 Delivery Room air 06/06 171 Temp 36.7 06/06 1714 Pulse 84 06/06 171 Resp 18 06/06 1714 Last Documented: Result Date Time Pulse Ox 100 06/06 1715 B/P 137/81 06/06 1715 B/P Mean 99 06/06 1715 O2 Delivery Room air 06/06 171 Temp 36.7 06/06 171 Pulse 84 06/06 171 Resp 18 06/06 1714 All vital signs available at the time of this entry have been reviewed. Condition Stable Clinical ImpressionClinical ImpressionPrimary Impression: FallSecondary Impressions: Arm pain Disposition DecisionDischarge )( Discharged to Home Yes )( Time 1911 )( Date 06/06/18 Discharge/Care PlanCounseled Regarding Diagnosis, Imaging studies, Prescriptions, Need for follow-up, When to return to EDPrescriptionst3, ibuprofenPrescriptions Reviewed Risks, Benefits, Alternative treatment Discharge NoteI have spoken with the patient and/or caregivers. I have explained the patient'scondition, diagnoses and treatment plan based on the information available to meat this time. I have answered the patient's and/or caregiver's questions and addressed any concerns. The patient and/or caregivers have as good an understanding of the patient's diagnosis, condition and treatment plan as can beexpected at this point. The vital signs have been stable. The patient's condition is stable and appropriate for discharge from the emergency department. The patient will pursue further outpatient evaluation with the primary care physician or other designated or consulting physician as outlined in the discharge instructions. The patient and/or caregivers are agreeable to this planof care and follow-up instructions have been explained in detail. The patient and/or caregivers have received these instructions in written format and have expressed an understanding of the discharge instructions. The patient and/or caregivers are aware that any significant change in condition or worsening of symptoms should prompt an immediate return to this or the closest emergency department or a call to 911. at 1912RPT #:[id number] OF REPORTEDEmergency department [id number]:00B.[id number] [phone] for patient [id number] 5 2018-06-06 [id number]:02:0 HCACR 18:02:[address] [facility] ([facility])EMERGENCY PROVIDER REPORTREPORT#:[id number] REPORT STATUS: SignedDATE:06/06/18 TIME: 1801 PATIENT: BROOKE SYKES UNIT #: [id number]#: [id number] ROOM/BED:AGE: 28 SEX: F PCP PHYS: No Primary or Family PhysicianSERVICE AUTHOR: Efren Gonzalez GENERAL ACCOUNTING CLERK * ALL edits or amendments must be made on the electronic/computer document * Efren Gonzalez 06/06/181801:HPI-Trauma Minor/Fall GeneralConfirmed Patient YesPatient Type New patient PresentationChief Complaint Fall, Extremity painHx Obtained From PatientOnset Occurred TodaySymptom Duration Since onsetProgression since Onset UnchangedCaused by AccidentalTiming of Trauma Date of Trauma 06/06/18 Time of Trauma 1700Context: Occurred at Home injuryLocation Upper extremity LSeverity: Current Pain level 9 out of 10Associated withDenies: Abdominal pain, Chest pain, Loss of consciousness, Shortness of breath. Exacerbated by Movement, PalpationRelieved by Nothing ContextImmunization Status General UnknownRecent Healthcare No recent doctor visit, No recent hospitalizationSimilar Sx Previous NoPregnancy/Sexual Hx Status Denies Free Text HPI NotesFree Text HPI NotesPatient is a 28-year-old female that comes to the emergency department with chief complaint of fall at home at 1700. Patient reports she was on her front porch and turned and fell onto the left elbow. Patient reports pain to left shoulder, humerus, elbow, forearm, wrist, hand. Patient denies hitting head, denies loss of consciousness. Patient denies headache, neck pain, chest pain, back pain. Patient denies vision changes and loss of bowel and bladder control. Patient denies . Risk-Trauma Minor/Fall Risk StratificationGlasgow Coma Score > Age 5 [place] Coma Score > Age 5 Response Value Eye Opening Open spontaneously (4) 4 Verbal Response Oriented (5) 5 Motor Response Obeys commands (6) 6 Total 15 Review of Systems ROS StatementsAll systems rev neg except as marked. Focused Review of SystemsConstitutionalDenies: Chills, Fatigue, Fever. EyesDenies: Blurred bilat, Discharge bilat, Eye pain bilat, Redness bilat. Ears/Nose/ThroatDenies: Ear drainage bilat, Ear ringing bilat, Earache bilat, Hearing loss bilat. RespiratoryDenies: Cough, non-productive, Cough, productive, Shortness of breath. MusculoskeletalReports: Extremity pain. Denies: Myalgia, Neck pain. SkinDenies: Rash. NeurologicDenies: Bladder dysfunction, Bowel dysfunction, Syncope. Past Medical History - AdultStated Complaint fell on elbowAllergiesCoded Allergies:Coconut (Severe, THROAT SWELLS 09/24/17) Home MedicationsActive ScriptsHYDROcodone/APAP (VICODIN 5/300) 1 TAB PO Q4H PRN PRN ABDOMINAL CRAMPS/PAIN MDD 6 HYDROcodone/APAP (VICODIN 5/300) 1 TAB PO Q4H PRN PRN ABDOMINAL CRAMPS/PAINMDD 6#30 TABS Prov: 09/26/17 Reported MedicationsENOXAPARIN (LOVENOX) 40 MG SUBQ Q24H GABAPENTIN (NEURONTIN) 300 MG PO BID ACETAMINOPHEN/CODEINE (TYLENOL WITH CODEINE #4 300/60 MG) 1 TAB PO TID fentaNYL (DURAGESIC) 25 MCG.PER.HR TRANSDERM Q72H DICYCLOMINE (BENTYL) 10 MG PO BID BACLOFEN (LIORESAL) 20 MG PO DAILY CYANOCOBALAMIN (VITAMIN B-12) 500 MCG PO DAILY ACETAMINOPHEN (TYLENOL) 325 MG PO Q6H PRN PRN PAIN Additional Medical HistoryendometriosisPast Surgical History:Denies: Abdominal surgery. Alcohol Use Denies EtOH useDrug Use Denies recreational drugsSmoking status for patients 13 years old or older: Current every day smoker Physical Exam Vital SignsVital SignsFirst Documented: Result Date Time Pulse Ox 100 06/06 1715 B/P 137/81 06/06 1714 B/P Mean 99 [...] 1927 Review of Vital Signs Reviewed Focused PEGeneral/Const General/Const Awake, Alert, No acute distress, Well developed, Well hydrated,Well nourished, Cooperative, Not toxic appearing Appearance/Presentation Uncomfortable. MS Head Head Atraumatic, NormocephalicEyes Eyes Atraumatic, PERRL, EOMI, No nystagmusEars/Nose/Throat Ears/Nose/Throat Atraumatic, Airway patent, Mucous membranes moistMS Neck Neck Atraumatic, Supple, No meningismus, Full range of motion, No midline vertebral tendResp/Chest Respiratory/Chest Atraumatic, Breath sounds NL, Breath sounds = bilat, No respiratory distressCardiovascular Cardiovascular Heart rate NL, Regular rhythm, Heart sounds NL, Cap refill notdelayed, Peripheral circulation NLAbdomen/GI Abdomen/GI Atraumatic, Soft, Non-tenderMS Back Back Atraumatic, Inspection NL, Full range of motion, Painless range of motion, No midline vertebral tendMS Upper Extrem Upper Extremity/MS No deformity, Neurologic intact, Vascular intact Left Shoulder Tenderness present. Left Upper Arm Tenderness present. Left Elbow Tenderness present. Left Forearm Tenderness present. MS Wrist/Hand Wrist/Hand No deformity, Neurologic intact, Vascular intact Left Wrist Tenderness present. Left Hand Tenderness present. MS Lower Extrem Lower Ext/Pelvis/MS Atraumatic, Inspection NL, Full range of motionMS Ankle/Foot Ankle/Foot Atraumatic, Inspection NL, Full range of motionSkin Skin Atraumatic, Color NL, No rash, Warm, Dry, Intact, Turgor NL, No swellingNeurologic Neurologic Oriented X3, Speech NL, No motor deficits, No sensory deficits, Cerebellar NL, Memory NL, Gait NL Interpretation Diagnostics Lab Results InterpretationResultsRecent Impressions:RADIOLOGY - XR HAND 3 + V LT 02/21 1813 Report Impression - Status: SIGNED Entered: 06/06/2018 1857 IMPRESSION:No acute osseous abnormality is identified.Impression By: [email or web address] - Pau Cardenas, MDRADIOLOGY - XR WRIST 3 + V LT 06/06 1813 Report Impression - Status: SIGNED Entered: 06/06/2018 1857 IMPRESSION:No acute osseous abnormality is identified.Impression By: Trina7 - Pau Cardenas, MDRADIOLOGY - XR FOREARM 2 VIEWS LT 06/06 1813 Report Impression - Status: SIGNED Entered: 06/06/2018 1859 IMPRESSION:No acute osseous abnormality is identified.Impression By: Trina7 - Pau Cardenas, MDRADIOLOGY - XR ELBOW 3 + V LT 06/06 1813 Report Impression - Status: SIGNED Entered: 06/06/2018 1859 IMPRESSION:No acute osseous abnormality is identified.Impression By: Trina7 - Pau Cardenas, MDRADIOLOGY - XR HUMERUS 2 + V LT 06/06 1813 Report Impression - Status: SIGNED Entered: 06/06/2018 1855 IMPRESSION:No acute osseous abnormality is identified.Impression By: Oliver - Pau Cardenas, MDRADIOLOGY - XR SHOULDER 2 + V LT 06/06 1813 Report Impression - Status: SIGNED Entered: 06/06/2018 1853 IMPRESSION:No acute osseous abnormality is identified.Impression By: Oliver Cardenas MD Imaging StatementRadiographic studies reviewed and considered in the medical decision-making. Re-Evaluation MDM Free Text MDM NotesFree Text MDM NotesPatient's arm placed in sling. Discussed diagnostic results with patient. Patient to be discharged with prescription for pain medicine. Patient given return precautions. Patient agrees to plan. ED CourseMedication(s) OrderedMedication(s) Ordered:Central Nervous System Agents Sig/Maryanne Start time Last Medication Dose Route Stop Time Status Admin Hydrocodone Bitart/ 1 TAB X1ED STA 06/06 1801 DC 06/06 Acetaminophen PO 06/06 180 1810 Patient Discharge Departure Vital Signs/ConditionVital SignsFirst Documented: Result Date Time Pulse Ox 100 02/21 1715 B/P 137/81 06/06 1714 B/P Mean 99 [...] signs available at the time of this entry have been reviewed. Condition Stable Clinical ImpressionClinical ImpressionPrimary Impression: FallSecondary Impressions: Arm pain Disposition DecisionDischarge )( Discharged to Home Yes )( Time 1911 )( Date 06/06/18 Discharge/Care PlanCounseled Regarding Diagnosis, Imaging studies, Prescriptions, Need for follow-up, When to return to EDPrescriptionst3, ibuprofenPrescriptions Reviewed Risks, Benefits, Alternative treatment Discharge NoteI have spoken with the patient and/or caregivers. I have explained the patient'scondition, diagnoses and treatment plan based on the information available to meat this time. I have answered the patient's and/or caregiver's questions and addressed any concerns. The patient and/or caregivers have as good an understanding of the patient's diagnosis, condition and treatment plan as can beexpected at this point. The vital signs have been stable. The patient's condition is stable and appropriate for discharge from the emergency department. The patient will pursue further outpatient evaluation with the primary care physician or other designated or consulting physician as outlined in the discharge instructions. The patient and/or caregivers are agreeable to this planof care and follow-up instructions have been explained in detail. The patient and/or caregivers have received these instructions in written format and have expressed an understanding of the discharge instructions. The patient and/or caregivers are aware that any significant change in condition or worsening of symptoms should prompt an immediate return to this or the closest emergency department or a call to 911. Ortega Loera 06/07/18 0134:HPI-Trauma Minor/Fall GeneralInitial Greet Date/Time 06/06/181716 Physical Exam Vital SignsVital Signs Interpretation Diagnostics Lab Results InterpretationResults Re-Evaluation MDM ED CourseMedication(s) Ordered Patient Discharge Departure Vital Signs/ConditionVital Signs Supervising Physician Note MidLv Saw Pt AloneI have reviewed the PA/GENERAL ACCOUNTING CLERK's note and plan of care. I was available for consultation as needed at all times during the patient's visit in the emergency department. I agree with the clinical impression, plan and disposition. at 1912 at 0135RPT #:[id number] OF REPORTEDEmerdrew memorial hospital department [id number]:02:00B.[id number] [phone] for patient [id number]:34:3 2"
--- NOTE | 2023-03-10 07:32 | ER ---
Nurse's Notes [facility] Name: Brooke Thomas Age: 32 yrs Sex: Female : 1990 Arrival Date: 03/10/2023 Time: 06:41 Bed 14 Private MD: Diagnosis: Narcotic withdrawal Presentation: 03/10 06:55 Chief complaint: Patient states: I need a prescription for Suboxone, I had some pills ha1 but my by accident put them in a burning trash. I am feeling withdraws, diarrhea, and need a prescription. I had a baby five days ago. Coronavirus screen: Vaccine status: Patient reports receiving the 2nd dose of the covid vaccine. Moderna. Ebola Screen: No symptoms or risks identified at this time. Initial Sepsis Screen: Does the patient meet any 2 criteria? No. Patient's initial sepsis screen is negative. Does the patient have a suspected source of infection? No. Patient's initial sepsis screen is negative. Risk Assessment: Do you want to hurt yourself or someone else? Patient reports no desire to harm self or others. Onset of symptoms was March 10, 2023. 06:55 Method Of Arrival: Ambulatory ha1 06:55 Acuity: ILA 4 ha1 Triage Assessment: 06:48 General: Appears comfortable, Behavior is calm, cooperative. Pain: Denies pain. Neuro: ha1 Level of Consciousness is awake, alert, obeys commands, Oriented to person, place, time, situation. Cardiovascular: Capillary refill < 3 seconds Patient's skin is warm and dry. Respiratory: Airway is patent Respiratory effort is even, unlabored, Respiratory pattern is regular, symmetrical. GI: Abdomen is flat, non-distended, Bowel sounds present X 4 quads. Reports diarrhea. : Reports had a baby five days ago. Derm: Skin is pink, warm \T\ dry. Musculoskeletal: Circulation, motion, and sensation intact. Range of motion: intact in all extremities. 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 - Social history:: Smoking status: Patient denies any tobacco usage or history of. Screenin:06 [facility] ED Fall Risk Assessment (Adult) History of falling in the last 3 months, ha1 including since admission No falls in past 3 months (0 pts) Confusion or Disorientation No (0 pts) Intoxicated or Sedated No (0 pts) Impaired Gait No (0 pts) Mobility Assist Device Used No (0 pt) Altered Elimination No (0 pt) Score/Fall Risk Level 0 - 2 = Low Risk Oriented to surroundings, Maintained a safe environment, Hourly rounding (assess needs \T\ fall precautionary measures) done. Abuse screen: Denies threats or abuse. Denies injuries from another. Nutritional screening: No deficits noted. Tuberculosis screening: No symptoms or risk factors identified. Assessment: 07:15 General: Appears in no apparent distress. comfortable, Behavior is cooperative, ko1 appropriate for age, anxious. Pain: Denies pain. Neuro: No deficits noted. Cardiovascular: No deficits noted. Respiratory: No deficits noted. GI: No deficits noted. : No deficits noted. EENT: No deficits noted. Derm: No deficits noted. Musculoskeletal: No deficits noted. Vital Signs: 06:55 BP 146 / 95; Pulse 56; Resp 18 S; Temp 97.6(O); Pulse Ox 98% on R/A; Weight 92.99 kg; ha1 Height 5 ft. 3 in. ; 07:15 BP 117 / 57; Pulse 58; Resp 16; Pulse Ox 99% ; ko1 06:55 Body Mass Index 36.31 (92.99 kg, 160.02 cm) ha1 ED Course: 06:44 Patient arrived in ED. gm2 06:48 Patient has correct armband on for positive identification. Placed in gown. Bed in low ha1 position. Call light in reach. Side rails up X 1. 07:03 Triage completed. ha1 07:11 Edna Adler MD is Attending Physician. sp3 07:11 Cierra Nieves, MARION is Primary Nurse. ko1 07:15 Provided Education on: na. Pulse ox on. NIBP on. Door closed. Noise minimized. ko1 07:15 No provider procedures requiring assistance completed. Patient did not have IV access ko1 during this emergency room visit. Administered Medications: 07:26 Drug: cloNIDine PO 0.1 mg PO once Route: PO; ko1 Medication: 07:08 VIS not applicable for this client. ha1 Outcome: 07:31 Discharge ordered by . sp3 07:47 Discharged to home ambulatory, ko1 07:47 Condition: stable 07:47 Discharge instructions given to patient, Instructed on discharge instructions, follow up and referral plans. medication usage, Demonstrated understanding of instructions, follow-up care, medications, Prescriptions given X 1, 07:48 Patient left the ED. ko1 Signatures: Edna Adler MD MD sp3 Briana Lizama RN RN [email or web address] Cierra Nieves RN RN ko1 Irish Ponce gm2 Corrections: (The following items were deleted from the chart) 07:08 06:55 Chief complaint: Patient states: I need a prescription for Suboxone, I had some ha1 but my by accident put them in a burning trash. I am feeling withdraws, diarrhea ha1
--- NOTE | 2023-03-10 07:32 | EDPHYS ---
Physician Documentation [facility] Name: Brooke Thomas Age: 32 yrs Sex: Female : 1990 Arrival Date: 03/10/2023 Time: 06:41 Bed 14 Private MD: ED Physician Edna Adler HPI: 03/10 07:29 This 32 yrs old Female presents to ER via Ambulatory with complaints of patient had a sp3 baby 5 days ago and lost her prescription medication. 07:29 32-year-old female with a history of prior IV drug use currently on Suboxone, sp3 day 5 from a normal vaginal delivery now presents to the ED with chief complaint "my Suboxone was accidentally thrown into the trash" and is seeking for a refill. Patient has symptoms of narcotic withdrawal including diarrhea and nausea. She denies fever, chest pain, shortness of breath, abdominal pain, rash, bleeding, any other signs or symptoms on ROS at this time. She states she sees Dr. CONTRERAS and we will try and get an appointment for Sunday.. 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 - Social history:: Smoking status: Patient denies any tobacco usage or history of. ROS: 07:30 Constitutional: Negative for fever, chills, and weight loss, Eyes: Negative for injury, sp3 pain, redness, and discharge, ENT: Negative for injury, pain, and discharge, Neck: Negative for injury, pain, and swelling, Cardiovascular: Negative for chest pain, palpitations, and edema, Respiratory: Negative for shortness of breath, cough, wheezing, and pleuritic chest pain, Back: Negative for injury and pain, MS/Extremity: Negative for injury and deformity, Skin: Negative for injury, rash, and discoloration, Neuro: Negative for headache, weakness, numbness, tingling, and seizure, Psych: Negative for depression, anxiety, suicide ideation, homicidal ideation, and hallucinations, Allergy/Immunology: Negative for hives, rash, and allergies, Endocrine: Negative for neck swelling, polydipsia, polyuria, polyphagia, and marked weight changes, 07:30 All other systems are negative, Exam: 07:30 Constitutional: This is a well developed, well nourished patient who is awake, alert, sp3 and in no acute distress. Head/Face: Normocephalic, atraumatic. Eyes: Pupils equal round and reactive to light, extra-ocular motions intact. Lids and lashes normal. Conjunctiva and sclera are non-icteric and not injected. Cornea within normal limits. Periorbital areas with no swelling, redness, or edema. ENT: Nares patent. No nasal discharge, no septal abnormalities noted. External auditory canals are clear. Oropharynx with no redness, swelling, or masses, exudates, or evidence of obstruction, uvula midline. Mucous membranes moist. Neck: Trachea midline, no thyromegaly or masses palpated, and no cervical lymphadenopathy. Supple, full range of motion without nuchal rigidity, or vertebral point tenderness. No Meningismus. Chest/axilla: Normal chest wall appearance and motion. Nontender with no deformity. No lesions are appreciated. Cardiovascular: Regular rate and rhythm with a normal S1 and S2. No gallops, murmurs, or rubs. Normal PMI, no JVD. No pulse deficits. Respiratory: Lungs have equal breath sounds bilaterally, clear to auscultation and percussion. No rales, rhonchi or wheezes noted. No increased work of breathing, no retractions or nasal flaring. Abdomen/GI: Soft, non-tender, with normal bowel sounds. No distension or tympany. No guarding or rebound. No evidence of tenderness throughout. Back: No spinal tenderness. No costovertebral tenderness. Full range of motion. Skin: Warm, dry with normal turgor. Normal color with no rashes, no lesions, and no evidence of cellulitis. MS/ Extremity: Pulses equal, no cyanosis. Neurovascular intact. Full, normal range of motion. Neuro: Awake and alert, GCS 15, oriented to person, place, time, and situation. Cranial nerves II-XII grossly intact. Motor strength 5/5 in all extremities. Sensory grossly intact. Cerebellar exam normal. Normal gait. Psych: Awake, alert, with orientation to person, place and time. Behavior, mood, and affect are within normal limits. Vital Signs: 06:55 BP 146 / 95; Pulse 56; Resp 18 S; Temp 97.6(O); Pulse Ox 98% on R/A; Weight 92.99 kg; ha1 Height 5 ft. 3 in. ; 07:15 BP 117 / 57; Pulse 58; Resp 16; Pulse Ox 99% ; ko1 06:55 Body Mass Index 36.31 (92.99 kg, 160.02 cm) [facility] MDM: 07:13 Patient medically screened. sp3 07:30 Data reviewed: vital signs, nurses notes. ED course: I explained patient that we do not sp3 prescribe Suboxone from the emergency department. I will place her on clonidine 0.1 mg p.o. x1 in the ED and every 8 hours at home as needed until Sunday when she can see her pain management physician for refill. Patient has not any distress and her vital signs are normal.. Administered Medications: 07:26 Drug: cloNIDine PO 0.1 mg PO once Route: PO; ko1 Disposition Summary: 03/10/23 07:31 Discharge Ordered Notes: Location: Home sp3 Condition: Stable sp3 Diagnosis - Narcotic withdrawal sp3 Followup: sp3 - With: Private Physician - When: Upon discharge from the Emergency Department - Reason: Continuance of care Discharge Instructions: - Discharge Summary Sheet sp3 - Opioid Withdrawal sp3 Forms: - Medication Reconciliation Form sp3 - Thank You Letter sp3 - Antibiotic Education sp3 - Prescription Opioid Use sp3 - Patient Portal Instructions sp3 - Leadership Thank You Letter sp3 Prescriptions: - clonidine HCl 0.1 mg Oral tablet - take 1 tablet ORAL route every 8 hours; 15 tablet; Refills: 0, Product sp3 Selection Permitted Signatures: Edna Adler MD MD sp3 Briana Lizama RN RN ha1 Cierra Nieves RN RN ko1
[2023-03-10] MEDS ORDERED: cloNIDine HCL 0.1 MG TAB ONE (07:38)
[2023-03-10 07:52] VITALS: TEMP 97.6
[2023-03-10 07:54] VITALS: BP 117/57; O2SAT 99
== END 2023-03-10 07:48 | disposition home or self-care (01) ==
LOC: ER 06:41
DX: F19.239 Other psychoactive substance dependence with withdrawal, unspecified (principal); Z88.1 Allergy status to other antibiotic agents
CPT/HCPCS: 99283

== ENCOUNTER 2023-10-09 12:02 | Emergency (ER) | payer OTHER ==
--- OUTSIDE RECORDS SUMMARY | 2023-10-09 12:36 | XMS REPORT | Continuity of Care Document ---
Author Name Unknown Address [address] [facility] [address] [place] [address] [facility] thconnect Address [address] [facility] [address] [place] [address] Care Team Providers Care Precipitate Washer Name Role Phone Pasquale Paula MD Primary Care Physician [phone] PASQUALE PAULA Attending Clinician Unavailable Pasquale Paula MD Attending Clinician [phone] SWAPNIL HESS Attending Clinician Ana lambert Lab, Ang - Db Attending Clinician Unavailable Swapnil Hess MD Attending Clinician + [phone] Pob, [facility] Main Attending Clinician Unavailjun Ramirez MD, Rosibel Johnson Attending Clinician [phone] NADEEN DAVIS Attending Clinician UnavailNadeen Kmi DO Attending Clinician [phone] Nurse, [facility] Attending Clinician Un available Unknown, Attending Attending Clinician Unavailab SAGAR Biggs Attending Clinician Unavailable ADALID LUKE Attending Clinician Unavailable SHANTHI BAUER Attending Clinician Unavail able Ludwin NOGUEIRAP, Alem Attending Clinician [phone] PEDRO LANGFORD Attending Clinician Unavailab gorge ANTONYP, Shanthi Freeman Attending Clinician + RUSTAM YU Attending Clinician Unavailable RUSTAM YU Attending Clinician Unavailable Gigi CROSS, Rustam Attending Clinician [phone] James CROSS, Carole Attending Clinician [phone] Zian CROSS, Paula Chand Attending Clinicia n PHILIP MAYES Attending Clinician Unavailable SANIYA WOLF Attending Clinician Unavaila prisca Wolf CNM, Saniya Pineda Attending Clinician [phone] ROSIBEL RAMIREZ Attending Clinician Unavailable Bin SCHULTZ, Iram Ash Attending Clinician Olimpia vailable Doctor Unassigned, [place] Attending Clinician U navailable AVELINO CLAYTON Attending Clinician Unav ailmaricruz Ultrasound, [facility] Attending Clinician Unavaila prisca Snider MD, Avelino Attending Clinician + Amber Rey Attending Clinician Unavailabl JA Nova Attending Clinician Unavailable Ja Saldana MD Attending Clinician [phone], [facility] Room Attending Clinician Unavaila ALBERTO Prasad Attending Clinician UnavailAlberto Cody MD Attending Clinician [phone] TERRENCE BARRON Attending Clinician Unavaila Scott Milian [facility] Attending Clinician Unamarquise Barron MD, Terrence Lynne Attending Clinician [phone] ADILSON CHERRY Attending Clinician Unavailable AMENA BETANCOURT Attending Clinician Unavaila AMENA Jauregui Attending Clinician Unavaila Susan Escoto Attending Clinician Unavailable Susan Kelly Attending Clinician [phone] Deanne Simmons MA Attending Clinician Unavailab JARETH Hodges Attending Clinician Unavailable Jareth Olmedo MD Attending Clinician [phone], [facility] Attending Clinician Unavailable Quinten Kline MD M Attending Clinician [phone] KAMERON DANIELS Attending Clinician Unavailable Kameron Daniels MD Attending Clinician Praveen Lizarraga Attending Clinician Unavail able RUSTAM YU Admitting Clinician Unavailable Rustam Yu MD Admitting Clinician [phone] ROSIBEL RAMIREZ Admitting Clinician Unavailable Rosibel Ramirez MD Admitting Clinician [phone] AMENA BETANCOURT Admitting Clinician UnavailSusan Callaway Admitting Clinician Unavailable KAMERON DANIELS Admitting Clinician Unavailable Physician, No Primary or Family Admitting Clinic amanda Unavailable Payers Payer Name Policy Type Policy Number Effective Date Expirati on Date Source $20 G [id number] 2007 00:00:00 [employer] PPO [id number] 2023 00:00:00 [facility] [id number] 2022 00:00:00 [employer] 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 [id number] 2022 00:00:00 [employer] MP [facility] SILVER: HMO CERAMIC CHEMIST 87 ON STAND 9 [id number] 2022 00:00:00 [facility] [place] [facility] [id number] 00:00:00 Problems Condition Name Condition Details Condition Category Status Onset Date Resolution Date Last Treatment Date Treating Clinician Comments Source Need for HPV vaccinatio n Need for HPV vaccinatio n Disease Active 2022-04 2-11 00:00: 00 [facility] Obesity (BMI 30-39.9) Obesity (BMI 30-39.9) Disease Active 2022-04 1-20 00:00: 00 [facility] High-risk in second trimester High-risk in second trimester Disease Active 4- 00:00: 00 [facility] Bicornuate uterus affecting , antepartum Bicornuate uterus affecting , antepartum Disease Active 2021-04 00:00: 00 [facility] Suboxone maintenanc e treatment complicati ng , antepartum Suboxone maintenanc e treatment complicati ng , antepartum Disease Active 2021-04 00:00: 00 [facility] Narcolepsy due to 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 Reports quit x1 year ago [facility] Tobacco use disorder Tobacco use disorder Disease Active 11-22 00:00: 00 [facility] care and examinatio n of lactating mother care and examinatio n of lactating mother Disease Resolve d 2022-04 00:00: 00 2023-08-17 00:00:00 2023-08-17 14:11:39 [facility] 39 weeks gestation of 39 weeks gestation of Disease Resolve d 2022-0420 00:00: 00 2023-03-26 00:00:00 2023-03-26 14:14:51 [facility] Obesity affecting in third trimester Obesity affecting in third trimester Disease Resolve d 2022-04 1-07 00:00: 00 2023-03-26 00:00:00 2023-03-26 14:14:36 [facility] Anemia of mother in , antepartum Anemia of mother in , antepartum Disease Resolve d 2022-04 1-01 00:00: 00 2023-03-26 00:00:00 2023-03-26 14:14:50 [facility] Choroid plexus cyst Choroid plexus cyst Disease Resolve d 7-25 00:00: 00 2023-03-26 00:00:00 2023-03-26 14:14:47 Overview: Formattin g of this note might be different from the original. Noted on Suyapa cs is recommend ed and a FU is suggested [facility] Multiparit y Multiparit y Disease Resolve d 0 4-10 00:00: 00 2023-03-26 00:00:00 2023-03-26 14:14:42 [facility] History of miscarriag e History of miscarriag e Disease Resolve d 0 4-10 00:00: 00 2023-03-26 00:00:00 2023-03-26 14:14:43 [facility] Nausea and vomiting in Nausea and vomiting in Disease Resolve d 0 4-10 00:00: 00 2023-03-26 00:00:00 2023-03-26 14:14:40 [facility] Rh negative state in antepartum period Rh negative state in antepartum period Disease Resolve d 2021-04 2-27 00:00: 00 2023-03-26 00:00:00 2023-03-26 14:14:34 Overview: Formattin g of this note might be different from the original. Will need rhogam 28 weeks, prn [facility] Bicornuate uterus affecting , antepartum Bicornuate uterus affecting , antepartum Disease Resolve d 2021-04 2-12 00:00: 00 2023-03-26 00:00:00 2023-03-26 14:14:29 [facility] Missed Missed Disease Resolve d 2021-04 2-27 00:00: 00 2022-07-24 00:00:00 2022-07-24 13:56:20 [facility] Vaginal bleeding Vaginal bleeding Disease Resolve d 2021-04 2-27 00:00: 00 2022-07-24 00:00:00 2022-07-24 13:54:37 [facility] Bicornuate uterus Bicornuate uterus Disease Resolve d 2021-04 2-27 00:00: 00 2022-07-24 00:00:00 2022-07-24 14:05:21 [facility] Abnormal ultrasound Abnormal ultrasound Disease Resolve d 2021-04 2-12 00:00: 00 2022-07-24 00:00:00 2022-07-24 13:56:28 [facility] Needs flu shot Needs flu shot Disease Resolve d 2021-04 00:00: 00 2022-07-24 00:00:00 2022-07-24 13:56:13 [facility] examinatio n or test, positive result examinatio n or test, positive result Disease Resolve d 2021-04 00:00: 00 2022-07-24 00:00:00 2022-07-24 13:56:09 [facility] with inconclusi ve viability, single or unspecifie d fetus with inconclusi ve viability, single or unspecifie d fetus Disease Resolve d 2021-04 00:00: 00 2022-07-24 00:00:00 2022-07-24 13:56:11 [facility] Nausea and vomiting in prior to 22 weeks gestation Nausea and vomiting in prior to 22 weeks gestation Disease Resolve d 2021-04 00:00: 00 2022-07-24 00:00:00 2022-07-24 13:56:15 [facility] 5 weeks gestation of 5 weeks gestation of Disease Resolve d 2021-04 00:00: 00 2022-07-24 00:00:00 2022-07-24 13:56:33 [facility] Pain pelvic Pain pelvic Disease Resolve d 2021-04 0-13 00:00: 00 2022-07-24 00:00:00 2022-07-24 13:54:36 [facility] BMI 30.0-30.9, adult BMI 30.0-30.9, adult Disease Resolve d 8 00:00: 00 2022-07-24 00:00:00 2022-07-24 13:56:32 [facility] Screening examinatio n for STD (sexually transmitte d disease) Screening examinatio n for STD (sexually transmitte d disease) Disease Resolve d 11-12 00:00: 00 2022-07-24 00:00:00 2022-07-24 13:56:05 [facility] Late menses Late menses Disease Resolve d 11-12 00:00: 00 2022-07-24 00:00:00 2022-07-24 13:54:35 [facility] BMI 29.0-29.9, adult BMI 29.0-29.9, adult Disease Resolve d 11-12 00:00: 00 2022-07-24 00:00:00 2022-07-24 13:56:31 [facility] Well woman exam with routine gynecologi senait exam Well woman exam with routine gynecologi senait exam Disease Resolve d 11-22 00:00: 00 2022-07-24 00:00:00 2022-07-24 13:56:02 [facility] Boil of inguinal region Boil of inguinal region Disease Resolve d 11-22 00:00: 00 2021-11-12 00:00:00 2021-11-12 21:58:34 [facility] IUD (intrauter ine device) in place IUD (intrauter ine device) in place Disease Resolve d 11-22 00:00: 00 2021-10-27 00:00:00 2021-10-27 15:54:50 [facility] Allergies, Adverse Reactions, Alerts Allergy Name Allergy Type Status Severity Reaction(s) Onset Date Inactive Date Treating Clinician Comments Source Amoxicil jalen Propensi ty to adverse reaction s Active Itching 10-18 00:00: 00 Ani Johnson - Externa l AMOXICIL JALEN DRUG INGREDI Active ITCHING 10-18 00:00: 00 [facility] Penicill ins DA Active MO RASH 2020-04 00:00: 00 [facility] [place] DA Active SV 09-24 00:00: 00 [facility] Social History Social Habit Start Date Stop Date Quantity Comments Source ASSERTION 2023-06-14 00:00:[address] [facility] [place] [place] Gender identity [facility] Sexual orientation Suasn Johnson - External History of tobacco use Cigarette Smoker Ani to - External Alcoholic beverage intake 2023-09-03 00:00:00 2023-09-03 00:00:00 Lifetime non-drinker (finding) [facility] [place] [place] Alcohol intake 2023-03-30 00:00:00 2023-03-30 00:00:00 Ex-drinker (finding) Ani Johnson - External History of Social function 2023-03-30 00:00:00 2023-03-30 00:00:00 Ani Johnson - External Exposure to SARS-CoV-2 (event) 2022-09-08 00:00:00 2022-09-18 15:45:[address] [facility] [place] [place] Cigarettes smoked current (pack per day) - Reported 2022-07-24 00:00:00 2022-07-24 00:00:[address] [facility] [place] [place] Cigarette pack-years 2022-07-24 00:00:00 2022-07-24 00:00:[address] [facility] [place] [place] Tobacco use and exposure 2022-07-24 00:00:00 2022-07-24 00:00:00 Smokeless tobacco non-user [facility] [place] [place] Tobacco Comment 2021-10-27 00:00:00 2021-10-27 00:00:[address] [facility] [place] [place] Sex Assigned At 1990 00:00:00 1990 00:00:00 Ani Johnson - External Smoking Status Start Date Stop Date Source Ex-smoker 2022-07-24 00:00:00 2022-07-24 [facility]00[facility] 2021-10-27 00:00:[address] [facility] [place] [place] Medications Ordered Medication Name Filled Medication Name Start Date Stop Date Current Medication? Ordering Clinician Indication Dosage Frequency Signature (SIG) Comments Components Source ferrous sulfate (IRON, FERROUS SULFATE,) 325 mg (65 mg iron) tablet 09-25 00:00: 00 Yes [id number] 325mg Take 1 tablet by mouth in the morning and 1 tablet in the evening. [facility] Nitrofurant oin&Nit. Macrocryst (MACROBID) 100 mg capsule 09-24 00:00: 00 10-02 04:59 :00 Yes [id number] 100mg Take 1 capsule by mouth in the morning and 1 capsule in the evening. Do all this for 7 days. [facility] methylpheni date HCl 5 mg tablet 08-16 09:55: 06 Yes 5mg Take 5 mg by mouth in the morning and 5 mg at noon and 5 mg in the evening. [facility] PNV 67-iron ps-folate no.1-dha (VITAFOL ULTRA) 29 mg iron- 1 mg-200 mg Cap 08-16 00:00: 00 Yes [id number] 1{capsu le} Take 1 capsule by mouth in the morning. [facility] doxylamine- pyridoxine, vit B6, (DICLEGIS) 10-10 mg per tablet 08-16 00:00: 00 Yes [id number] 1 tab@HS.If not effective, 2 tab@HS.If not effective, 2 tab@HS&1 tab in AM.If not effective, 2@HS,1 in AM,&1 in early PM. Max: 4 tab/day. [facility] metoclopram tico HCl 10 mg tablet 08-16 00:00: 00 Yes [id number] 10mg Take 1 tablet by mouth every 6 (six) hours as needed for Nausea and Vomiting (N/V). [facility] enoxaparin 40 mg/0.4 mL injection 08-16 00:00: 00 09-16 04:59 :00 Yes 40mg inject 0.4 mL under the skin every 24 (twenty-fo ur) hours for 30 days. [facility] Buprenorphi ne HCl-Naloxon e HCl (Suboxone) 8-2 MG sublingual Film 2022-04 14:48: 58 Yes 1.5{hector m} Place 1.5 films under the tongue daily. Ani johnson Prenat-Fe Poly-Methfo l-FA-DHA (Vitafol Ultra) 29-0.6-0.4- 200 MG oral Capsule 2022-04 00:00: 00 Yes Ani johnson methylpheni date HCl 5 mg tablet 2022-04 13:07: 47 Yes 5mg Take 1 tablet by mouth in the morning and 1 tablet at noon and 1 tablet in the evening. [facility] enoxaparin (LOVENOX) injection 40 mg 2022-04 21:00: 00 Yes 40mg 40 mg, Subcutaneo us, Q24H, First dose on Sun03/06/23 at 1500, Until Discontinu ed, Routine [facility] methylpheni date HCl 5 mg tablet 2022-04 12:36: 49 Yes 5mg Take 1 tablet by mouth in the morning and 1 tablet at noon and 1 tablet in the evening. [facility] acetaminoph en (TYLENOL) tablet 650 mg 2022-04 05:25: 59 Yes 650mg [Order 1 Start] Name: acetaminop hen (TYLENOL) tablet 650 mg Signed Summary: 650 mg, Oral, Q6HPRN, Starting on Sun03/05/23 at 2325, Until Discontinu ed, Routine, Pain (scale 4-6) [Order 1 End] [Order 2 Start] Name: ibuprofen (IBU) tablet 600 mg Signed Summary: 600 mg, Oral, Q6HPRN, Starting on Sun03/05/23 at 2325, Until Discontinu ed, Routine, pain 7-10 [Order 2 End] [facility] diphenhydrA MINE (BENADRYL) tablet 25 mg 2022-04 05:25: 59 Yes 25mg 25 mg, Oral, Q6HPRN, Starting on Sun03/05/23 at 2325, Until Discontinu ed, Routine, Sleep, Itching [facility] ondansetron (ZOFRAN (PF)) injection 4 mg 2022-04 05:25: 59 Yes 4mg 4 mg, Slow IV Push, Q8HPRN, Starting on Sun03/05/23 at 2325, Until Discontinu ed, Routine, Nausea and Vomiting (N/V) [facility] simethicone (GAS RELIEF (SIMETHICON E)) chewable tablet 160 mg 2022-04 05:25: 59 Yes 160mg 160 mg, Oral, PC+HSPRN, Starting on Sun03/05/23 at 2325, Until Discontinu ed, Routine, Gas [facility] docusate (COLACE) capsule 200 mg 2022-04 05:25: 59 Yes 200mg 200 mg, Oral, QDAILYPRN, Starting on Sun03/05/23 at 2325, Until Discontinu ed, Routine, Constipati on [facility] magnesium hydroxide (MILK OF MAGNESIA) 400 mg/5 mL suspension 30 mL 2022-04 05:25: 59 Yes 30mL 30 mL, Oral, QDAILYPRN, Starting on Sun03/05/23 at 2325, Until Discontinu ed, Routine, Constipati on [facility] benzocaine- menthol (DERMOPLAST ) 20-0.5 % topical spray 2022-04 05:25: 59 Yes Topical, PRN, Starting on Sun03/05/23 at 2325, Until Discontinu ed, Routine, Perineum discomfort [facility] buprenorphi ne HCL (SUBUTEX) sublingual tablet 2 mg 2022-04 02:00: 00 Yes 2mg 2 mg, Sublingual , BID, First dose (after last modificati on) on Sun03/05/23 at 2000, Until Discontinu ed, Routine [facility] Vit-Fe Fumarate-FA () oral Tablet 2022-04 00:00: 00 Yes Ani Johnson - Externa alex enoxaparin 40 mg/0.4 mL injection 2022-04 00:00: 00 08-16 00:00 :00 No [id number] 40mg inject 0.4 mL under the skin every 24 (twenty-fo ur) hours. [facility] [id number] fum-folic () 27 mg iron- 1 mg folic tablet 2022-04 00:00: 00 08-16 00:00 :00 No [id number] 1{tbl} Take 1 tablet by mouth in the morning. [facility] docusate 100 mg capsule 2022-04 00:00: 00 08-16 00:00 :00 No [id number] 200mg Take 2 capsules by mouth once daily as needed for Constipati on. [facility] ferrous sulfate 325 mg (65 mg iron) tablet 2022-04 00:00: 00 08-16 00:00 :00 No [id number] 325mg Take 1 tablet by mouth in the morning and 1 tablet in the evening. [facility] ibuprofen 600 mg tablet 2022-04 00:00: 00 08-16 00:00 :00 No [id number] 600mg Take 1 tablet by mouth every 6 (six) hours as needed (Pain). Take with food or milk. [facility] PIB ropivacaine 0.2 % (NAROPIN (PF)) epidural infusion 2022-04 20:58: 00 03-06 04:15 :48 No Epidural, CONTINUOUS PRN, Starting on Sun03/05/23 at 1458, Until Discontinu ed, Routine, Intra-op [facility] lidocaine-e pinephrine (XYLOCAINE W/EPINEPHRI NE) 1.5 %-1:200,000 injection 2022-04 20:56: 00 03-06 04:15 :48 No Intraderma l, ONCE INTRA PROCEDURE, Starting on Sun03/05/23 at 1456, Until Discontinu ed, Routine, Intra-op [facility] buprenorphi ne HCL (SUBUTEX) sublingual tablet 4 mg 2022-04 18:30: 00 Yes 4mg 4 mg, Sublingual , LUNCH, First dose on Sun03/05/23 at 1230, Until Discontinu ed, Routine [facility] oxytocin (PITOCIN) 30 units in NS 500 mL IV infusion 2022-04 17:13: 47 03-06 05:26 :03 No 2mU/min at 2-40 mL/hr, IV Infusion, TITRATE, Starting on Sun03/05/23 at 1113, Until Sun03/05/23 at 2326, TIANNA [facility] D5W-LR IV infusion 1,000 mL 2022-04 17:13: 36 03-06 05:26 :03 No 1000mL at 1-125 mL/hr, IV Infusion, TITRATE, Starting on Sun03/05/23 at 1113, Until Sun03/05/23 at 2326, Routine [facility] methylpheni date HCl 5 mg tablet 2022-04 11:49: 52 Yes 5mg Take 1 tablet by mouth in the morning and 1 tablet at noon and 1 tablet in the evening. [facility] Methylpheni date HCl 10 MG oral Tablet 2022-04 00:00: 00 Yes Ani johnson Iron Fum & P-FA-Vit B & C No.9 (INTEGRA PLUS) 125 mg iron- 1 mg Cap 2022-04 00:00: 00 Yes [id number] 1{capsu le} Take 1 capsule by mouth in the morning. [facility] methylpheni date HCl 5 mg tablet 2022-04 17:22: 23 Yes 5mg Take 1 tablet by mouth in the morning and 1 tablet at noon and 1 tablet in the evening. [facility] doxylamine- pyridoxine, vit B6, (DICLEGIS) 10-10 mg per tablet 2022-04 00:00: 03-06 00:00 :00 No [id number] 2{tbl} Take 2 tablets by mouth at bedtime. [facility] ascorbic acid, vitamin C, 500 mg tablet 2022-04 00:00: 00 02-20 00:00 :00 No [id number] 500mg Take 1 tablet by mouth in the morning and 1 tablet at noon and 1 tablet in the evening. [facility] ferrous sulfate 325 mg (65 mg iron) tablet 2022-04 00:00: 00 02-20 00:00 :00 No [id number] 325mg Take 1 tablet by mouth in the morning and 1 tablet in the evening. [facility] doxylamine- pyridoxine, vit B6, (DICLEGIS) 10-10 mg per tablet 12-12 00:00: 00 02-14 00:00 :00 No [id number] 2{tbl} Take 2 tablets by mouth at bedtime. [facility] methylpheni date HCl 5 mg tablet 11-16 10:30: 36 Yes 5mg Take 5 mg by mouth in the morning and 5 mg at noon and 5 mg in the evening. [facility] DICLEGIS 10-10 mg per tablet 10-19 00:00: 00 Yes [id number] TAKE 2 TABLETS BY MOUTH AT BEDTIME IF NO RELIEF ON DAY 3 TAKE 1 TAB. IN THE MORNING AND 2 TABS. AT BEDTIME, NO RELIEF DAY 4 TAKE 1 TAB. MORNING, 1 TAB. IN AFTERNOON AND 2 TABS. BEDTIME [facility] metroNIDAZO LE 500 mg tablet 605 00:00: 00 09-26 04:59 :00 No [id number] 500mg Take 1 tablet by mouth in the morning and 1 tablet in the evening. Do all this for 7 days. [facility] enoxaparin (LOVENOX) 40 mg/0.4 mL injection 417 00:00: 00 01-28 04:59 :00 No [id number] 40mg inject 0.4 mL under the skin in the morning for 180 days. [facility] vit no.124/iron /folic ( VITAMIN ORAL) 07-28 15:09: 24 07-28 00:00 :00 No Take by mouth. [facility] vitamin w/FA tablet 07-28 00:00: 00 Yes [id number] 1{tbl} Take 1 tablet by mouth in the morning. [facility] vitamin w/FA tablet 07-28 00:00: 00 Yes [id number] 1{tbl} Take 1 tablet by mouth in the morning. [facility] doxylamine- pyridoxine, vit B6, (DICLEGIS) 10-10 mg per tablet 07-28 00:00: 00 10-19 00:00 :00 No [id number] 2{tbl} Take 2 tablets by mouth at bedtime. [facility] proMETHazin e 25 mg tablet 07-24 00:00: 00 09-18 00:00 :00 No [id number] 25mg Take 1 tablet by mouth every 6 (six) hours as needed for Nausea and Vomiting (N/V). [facility] vitamin w/FA tablet 07-24 00:00: 00 07-28 00:00 :00 No [id number] 1{tbl} Take 1 tablet by mouth in the morning. [facility] miSOPROStoL (CYTOTEC) tablet 800 mcg 2021-04 22:30: 00 04-11 22:26 :00 No [id number] 800ug [facility] NaCl 0.9% (NS) bolus infusion 1,000 mL 2021-04 01:00: 00 03-24 00:55 :00 No 1000mL at 999 mL/hr, 1,000 mL, IV Infusion, ONCE, 1 dose, On Fariha 03/23/22 at 1900, STAT [facility] iopamidol (ISOVUE 370-500 mL) injection 65 mL 2021-04 22:28: 00 03-23 22:29 :00 No [id number] 65mL 65 mL, Intravenou s, ONCE, 1 dose, On Fariha 03/23/22 at 1645, Routine [facility] ondansetron 8 mg disintegrat ing tablet 2021-04 00:00: 00 07-24 00:00 :00 No [id number] 8mg Take 1 tablet by mouth every 8 (eight) hours as needed for Nausea and Vomiting (N/V). [facility] vit no.124/iron /folic ( VITAMIN ORAL) 2021-04 15:57: 04 Yes Take by mouth. [facility] metoclopram tico HCl 10 mg tablet 2021-04 00:00: 00 07-24 00:00 :00 No [id number] 10mg Take 1 tablet by mouth every 6 (six) hours as needed for Nausea and Vomiting (N/V). [facility] modafiniL 200 mg tablet 9-29 00:00: 00 Yes 200mg Take 1 tablet by mouth every morning. [facility] buprenorphi ne-naloxone 8-2 mg sublingual film 9-15 00:00: [address] 1 FILM UNDERNEATH TONGUE EVERY DAY. ALLOW TO DISSOLVE SLOWLY IN MOUTH WITHOUT CHEWING OR SWALLOWING [facility] modafiniL 200 mg tablet 6-14 00:00: 00 01-06 00:00 :00 No 200mg Take 200 mg by mouth every morning. [facility] cyclobenzap rine 10 mg tablet 5-07 00:00: 00 01-26 00:00 :00 No [id number] TAKE 1 TABLET BY MOUTH EVERY 8 HOURS NEEDED FOR MUSCLE SPASMS. [facility] gabapentin 600 mg tablet 7-25 00:00: 00 01-26 00:00 :00 No TK 1/2 TO 1 T PO BID [facility] tablet compound base no.230 (SUBSOLV RDT MISC) 08-26 00:00: 00 01-06 00:00 :[address] 1 AND 1/2 FILMS UNDER THE TONGUE Q DAY ALLOW TO DISSOLVE SLOWLY WITHOUT CHEWING OR SWALLOWING [facility] Immunizations Ordered Immunization Name Filled Immunization Name Date Status Comments Source TDAP 2022-12-21 00:00:[address] [facility] [place] [place] Rho (d) Immune Globulin 2022-12-21 00:00:[address] [facility] [place] [place] Rho (d) Immune Globulin 2022-04-11 00:00:[address] [facility] [place] [place] Rho (d) Immune Globulin 2022-04-11 00:00:[address] [facility] [place] Rho (d) Immune Globulin 2022-04-11 00:00:[address] [facility] [place] Rho (d) Immune Globulin 2022-04-11 00:00:[address] [facility] [place] Rho (d) Immune Globulin 2022-04-11 00:00:[address] [facility] [place] Rho (d) Immune Globulin 2022-04-11 00:00:[address] [facility] [place] Rho (d) Immune Globulin 2022-04-11 00:00:[address] [facility] [place] Rho (d) Immune Globulin 2022-04-11 00:00:[address] [facility] [place] Rho (d) Immune Globulin 2022-04-11 00:00:[address] [facility] [place] Rho (d) Immune Globulin 2022-04-11 00:00:[address] [facility] [place] Rho (d) Immune Globulin 2022-04-11 00:00:[address] [facility] [place] Rho (d) Immune Globulin 2022-04-11 00:00:[address] [facility] [place] Rho (d) Immune Globulin 2022-04-11 00:00:[address] [facility] [place] Rho (d) Immune Globulin 2022-04-11 00:00:[address] [facility] [place] Rho (d) Immune Globulin 2022-04-11 00:00:[address] [facility] [place] Rho (d) Immune Globulin 2022-04-11 00:00:[address] [facility] [place] Rho (d) Immune Globulin 2022-04-11 00:00:[address] [facility] [place] Rho (d) Immune Globulin 2022-04-11 00:00:[address] [facility] [place] Rho (d) Immune Globulin 2022-04-11 00:00:[address] [facility] [place] Rho (d) Immune Globulin 2022-04-11 00:00:[address] [facility] [place] Rho (d) Immune Globulin 2022-04-11 00:00:[address] [facility] [place] Rho (d) Immune Globulin 2022-04-11 00:00:[address] [facility] [place] Rho (d) Immune Globulin 2022-04-11 00:00:[address] [facility] [place] Rho (d) Immune Globulin 2022-04-11 00:00:[address] [facility] [place] Rho (d) Immune Globulin 2022-04-11 00:00:[address] [facility] [place] Rho (d) Immune Globulin 2022-04-11 00:00:[address] [facility] [place] Rho (d) Immune Globulin 2022-04-11 00:00:[address] [facility] [place] Rho (d) Immune Globulin 2022-04-11 00:00:[address] [facility] [place] Rho (d) Immune Globulin 2022-04-11 00:00:[address] [facility] [place] Rho (d) Immune Globulin 2022-04-11 00:00:[address] [facility] [place] Rho (d) Immune Globulin 2022-04-11 00:00:[address] [facility] [place] Rho (d) Immune Globulin 2022-04-11 00:00:[address] [facility] [place] Rho (d) Immune Globulin 2022-04-11 00:00:[address] [facility] [place] Rho (d) Immune Globulin 2022-04-11 00:00:[address] [facility] [place] Rho (d) Immune Globulin 2022-04-11 00:00:[address] [facility] [place] Rho (d) Immune Globulin 2022-04-11 00:00:[address] [facility] [place] Rho (d) Immune Globulin 2022-04-11 00:00:[address] [facility] [place] Rho (d) Immune Globulin 2022-04-11 00:00:[address] [facility] [place] Rho (d) Immune Globulin 2022-04-11 00:00:[address] [facility] [place] Rho (d) Immune Globulin 2022-04-11 00:00:[address] [facility] [place] Rho (d) Immune Globulin 2022-04-11 00:00:[address] [facility] [place] Rho (d) Immune Globulin 2022-04-11 00:00:[address] [facility] [place] Rho (d) Immune Globulin 2022-04-11 00:00:[address] [facility] [place] Rho (d) Immune Globulin 2022-04-11 00:00:[address] [facility] [place] Rho (d) Immune Globulin 2022-04-11 00:00:[address] [facility] [place] Rho (d) Immune Globulin 2022-04-11 00:00:[address] [facility] [place] Rho (d) Immune Globulin 2022-04-11 00:00:[address] [facility] [place] HPV9 2022-03-28 00:00:[address] [facility] [place] HPV9 2022-03-28 00:00:[address] [facility] [place] HPV9 2022-03-28 00:00:[address] [facility] [place] HPV9 2022-03-28 00:00:[address] [facility] [place] HPV9 2022-03-28 00:00:[address] [facility] [place] HPV9 2022-03-28 00:00:[address] [facility] [place] HPV9 2022-03-28 00:00:[address] [facility] [place] HPV9 2022-03-28 00:00:[address] [facility] [place] HPV9 2022-03-28 00:00:[address] [facility] [place] HPV9 2022-03-28 00:00:[address] [facility] [place] HPV9 2022-03-28 00:00:[address] [facility] [place] HPV9 2022-03-28 00:00:00 Completed [facility] HPV9 2022-03-28 00:00:[address] [facility] [place] HPV9 2022-03-28 00:00:[address] [facility] [place] HPV9 2022-03-28 00:00:[address] [facility] [place] HPV9 2022-03-28 00:00:[address] [facility] [place] HPV9 2022-03-28 00:00:[address] [facility] [place] HPV9 2022-03-28 00:00:[address] [facility] [place] HPV9 2022-03-28 00:00:00 Completed [facility] HPV9 2022-03-28 00:00:00 Completed [facility] HPV9 2022-03-28 00:00:00 Completed [facility] HPV9 2022-03-28 00:00:00 Completed [facility] HPV9 2022-03-28 00:00:00 Completed [facility] HPV9 2022-03-28 00:00:00 Completed [facility] HPV9 2022-03-28 00:00:00 Completed [facility] HPV9 2022-03-28 00:00:00 Completed [facility] HPV9 2022-03-28 00:00:[address] [facility] [place] HPV9 2022-03-28 00:00:00 Completed [facility] HPV9 2022-03-28 00:00:00 Completed [facility] HPV9 2022-03-28 00:00:00 Completed [facility] HPV9 2022-03-28 00:00:00 Completed [facility] HPV9 2022-03-28 00:00:00 Completed [facility] HPV9 2022-03-28 00:00:00 Completed [facility] HPV9 2022-03-28 00:00:00 Completed [facility] HPV9 2022-03-28 00:00:00 Completed [facility] HPV9 2022-03-28 00:00:00 Completed [facility] HPV9 2022-03-28 00:00:00 Completed [facility] HPV9 2022-03-28 00:00:00 Completed [facility] HPV9 2022-03-28 00:00:[address] [facility] HPV9 2022-03-28 00:00:00 Completed [facility] HPV9 2022-03-28 00:00:00 Completed [facility] HPV9 2022-03-28 00:00:00 Completed [facility] HPV9 2022-03-28 00:00:00 Completed [facility] HPV9 2022-03-28 00:00:00 Completed [facility] HPV9 2022-03-28 00:00:[address] [facility] [place] HPV9 2022-03-28 00:00:[address] [facility] [place] HPV9 2022-03-28 00:00:[address] [facility] [place] HPV9 2022-03-28 00:00:[address] [facility] [place] HPV9 2022-03-28 00:00:[address] [facility] [place] HPV9 2022-03-28 00:00:[address] [facility] [place] HPV9 2022-03-28 00:00:[address] [facility] [place] HPV9 2022-03-28 00:00:[address] [facility] [place] HPV9 2022-03-28 00:00:[address] [facility] [place] Influenza Virus Vaccine Quad IM, Preserv and ABX Free 6 MO-64 YRS 2022-02-22 00:00:[address] [facility] [place] Influenza Virus Vaccine Quad IM, Preserv and ABX Free 6 MO-64 YRS 2022-02-22 00:00:[address] [facility] [place] Influenza Virus Vaccine Quad IM, Preserv and ABX Free 6 MO-64 YRS 2022-02-22 00:00:[address] [facility] [place] Influenza Virus Vaccine Quad IM, Preserv and ABX Free 6 MO-64 YRS 2022-02-22 00:00:[address] [facility] [place] Influenza Virus Vaccine Quad IM, Preserv and ABX Free 6 MO-64 YRS 2022-02-22 00:00:[address] [facility] [place] Influenza Virus Vaccine Quad IM, Preserv and ABX Free 6 MO-64 YRS 2022-02-22 00:00:[address] [facility] [place] Influenza Virus Vaccine Quad IM, Preserv and ABX Free 6 MO-64 YRS 2022-02-22 00:00:[address] [facility] [place] Influenza Virus Vaccine Quad IM, Preserv and ABX Free 6 MO-64 YRS 2022-02-22 00:00:[address] [facility] [place] Influenza Virus Vaccine Quad IM, Preserv and ABX Free 6 MO-64 YRS 2022-02-22 00:00:[address] [facility] [place] Influenza Virus Vaccine Quad IM, Preserv and ABX Free 6 MO-64 YRS 2022-02-22 00:00:[address] [facility] [place] Influenza Virus Vaccine Quad IM, Preserv and ABX Free 6 MO-64 YRS 2022-02-22 00:00:[address] [facility] [place] Influenza Virus Vaccine Quad IM, Preserv and ABX Free 6 MO-64 YRS 2022-02-22 00:00:[address] [facility] [place] Influenza Virus Vaccine Quad IM, Preserv and ABX Free 6 MO-64 YRS 2022-02-22 00:00:[address] [facility] [place] Influenza Virus Vaccine Quad IM, Preserv and ABX Free 6 MO-64 YRS 2022-02-22 00:00:[address] [facility] [place] Influenza Virus Vaccine Quad IM, Preserv and ABX Free 6 MO-64 YRS 2022-02-22 00:00:[address] [facility] [place] Influenza Virus Vaccine Quad IM, Preserv and ABX Free 6 MO-64 YRS 2022-02-22 00:00:[address] [facility] [place] Influenza Virus Vaccine Quad IM, Preserv and ABX Free 6 MO-64 YRS 2022-02-22 00:00:[address] [facility] [place] Influenza Virus Vaccine Quad IM, Preserv and ABX Free 6 MO-64 YRS 2022-02-22 00:00:[address] [facility] [place] Influenza Virus Vaccine Quad IM, Preserv and ABX Free 6 MO-64 YRS 2022-02-22 00:00:[address] [facility] [place] Influenza Virus Vaccine Quad IM, Preserv and ABX Free 6 MO-64 YRS 2022-02-22 00:00:[address] [facility] [place] Influenza Virus Vaccine Quad IM, Preserv and ABX Free 6 MO-64 YRS 2022-02-22 00:00:[address] [facility] [place] Influenza Virus Vaccine Quad IM, Preserv and ABX Free 6 MO-64 YRS 2022-02-22 00:00:[address] [facility] [place] Influenza Virus Vaccine Quad IM, Preserv and ABX Free 6 MO-64 YRS 2022-02-22 00:00:[address] [facility] [place] Influenza Virus Vaccine Quad IM, Preserv and ABX Free 6 MO-64 YRS 2022-02-22 00:00:[address] [facility] [place] Influenza Virus Vaccine Quad IM, Preserv and ABX Free 6 MO-64 YRS 2022-02-22 00:00:[address] [facility] [place] Influenza Virus Vaccine Quad IM, Preserv and ABX Free 6 MO-64 YRS 2022-02-22 00:00:[address] [facility] [place] Influenza Virus Vaccine Quad IM, Preserv and ABX Free 6 MO-64 YRS 2022-02-22 00:00:[address] [facility] [place] Influenza Virus Vaccine Quad IM, Preserv and ABX Free 6 MO-64 YRS 2022-02-22 00:00:[address] [facility] [place] Influenza Virus Vaccine Quad IM, Preserv and ABX Free 6 MO-64 YRS 2022-02-22 00:00:[address] [facility] [place] Influenza Virus Vaccine Quad IM, Preserv and ABX Free 6 MO-64 YRS 2022-02-22 00:00:[address] [facility] [place] Influenza Virus Vaccine Quad IM, Preserv and ABX Free 6 MO-64 YRS 2022-02-22 00:00:[address] [facility] [place] Influenza Virus Vaccine Quad IM, Preserv and ABX Free 6 MO-64 YRS 2022-02-22 00:00:[address] [facility] [place] Influenza Virus Vaccine Quad IM, Preserv and ABX Free 6 MO-64 YRS 2022-02-22 00:00:[address] [facility] [place] Influenza Virus Vaccine Quad IM, Preserv and ABX Free 6 MO-64 YRS 2022-02-22 00:00:[address] [facility] [place] Influenza Virus Vaccine Quad IM, Preserv and ABX Free 6 MO-64 YRS 2022-02-22 00:00:[address] [facility] [place] Influenza Virus Vaccine Quad IM, Preserv and ABX Free 6 MO-64 YRS 2022-02-22 00:00:[address] [facility] [place] Influenza Virus Vaccine Quad IM, Preserv and ABX Free 6 MO-64 YRS 2022-02-22 00:00:[address] [facility] [place] Influenza Virus Vaccine Quad IM, Preserv and ABX Free 6 MO-64 YRS 2022-02-22 00:00:[address] [facility] [place] Influenza Virus Vaccine Quad IM, Preserv and ABX Free 6 MO-64 YRS 2022-02-22 00:00:[address] [facility] [place] Influenza Virus Vaccine Quad IM, Preserv and ABX Free 6 MO-64 YRS 2022-02-22 00:00:[address] [facility] [place] Influenza Virus Vaccine Quad IM, Preserv and ABX Free 6 MO-64 YRS 2022-02-22 00:00:[address] [facility] [place] Influenza Virus Vaccine Quad IM, Preserv and ABX Free 6 MO-64 YRS 2022-02-22 00:00:[address] [facility] [place] Influenza Virus Vaccine Quad IM, Preserv and ABX Free 6 MO-64 YRS 2022-02-22 00:00:[address] [facility] [place] Influenza Virus Vaccine Quad IM, Preserv and ABX Free 6 MO-64 YRS 2022-02-22 00:00:[address] [facility] [place] Influenza Virus Vaccine Quad IM, Preserv and ABX Free 6 MO-64 YRS 2022-02-22 00:00:[address] [facility] [place] Influenza Virus Vaccine Quad IM, Preserv and ABX Free 6 MO-64 YRS 2022-02-22 00:00:[address] [facility] [place] Influenza Virus Vaccine Quad IM, Preserv and ABX Free 6 MO-64 YRS 2022-02-22 00:00:[address] [facility] [place] Influenza Virus Vaccine Quad IM, Preserv and ABX Free 6 MO-64 YRS 2022-02-22 00:00:[address] [facility] [place] Influenza Virus Vaccine Quad IM, Preserv and ABX Free 6 MO-64 YRS (FLUCELVAX) 2022-02-22 00:00:[address] [facility] [place] Influenza Virus Vaccine Quad IM, Preserv and ABX Free 6 MO-64 YRS (FLUCELVAX) 2022-02-22 00:00:[address] [facility] [place] Influenza Virus Vaccine Quad IM, Preserv and ABX Free 6 MO-64 YRS 2022-02-22 00:00:[address] [facility] [place] Influenza Virus Vaccine Quad IM, Preserv and ABX Free 6 MO-64 YRS 2022-02-22 00:00:[address] [facility] [place] Influenza Virus Vaccine Quad IM, Preserv and ABX Free 6 MO-64 YRS 2022-02-22 00:00:[address] [facility] [place] Influenza Virus Vaccine Quad IM, Preserv and ABX Free 6 MO-64 YRS 2022-02-22 00:00:[address] [facility] [place] Influenza Virus Vaccine Quad IM, Preserv and ABX Free 6 MO-64 YRS 2022-02-22 00:00:[address] [facility] [place] Influenza Virus Vaccine Quad IM, Preserv and ABX Free 6 MO-64 YRS 2022-02-22 00:00:[address] [facility] [place] Influenza Virus Vaccine Quad IM, Preserv and ABX Free 6 MO-64 YRS 2022-02-22 00:00:[address] [facility] [place] Influenza Virus Vaccine Quad IM, Preserv and ABX Free 6 MO-64 YRS 2022-02-22 00:00:[address] [facility] [place] Influenza Virus Vaccine Quad IM, Preserv and ABX Free 6 MO-64 YRS 2022-02-22 00:00:[address] [facility] [place] Influenza Virus Vaccine Quad IM, Preserv and ABX Free 6 MO-64 YRS 2022-02-22 00:00:[address] [facility] [place] Influenza Virus Vaccine Quad IM, Preserv and ABX Free 6 MO-64 YRS 2022-02-22 00:00:[address] [facility] [place] Influenza Virus Vaccine Quad IM, Preserv and ABX Free 6 MO-64 YRS 2022-02-22 00:00:[address] [facility] [place] Influenza Virus Vaccine Quad IM, Preserv and ABX Free 6 MO-64 YRS 2022-02-22 00:00:[address] [facility] [place] Influenza Virus Vaccine Quad IM, Preserv and ABX Free 6 MO-64 YRS 2022-02-22 00:00:[address] [facility] [place] Influenza Virus Vaccine Quad IM, Preserv and ABX Free 6 MO-64 YRS 2022-02-22 00:00:[address] [facility] [place] Influenza Virus Vaccine Quad IM, Preserv and ABX Free 6 MO-64 YRS 2022-02-22 00:00:[address] [facility] [place] Influenza Virus Vaccine Quad IM, Preserv and ABX Free 6 MO-64 YRS 2022-02-22 00:00:[address] [facility] [place] Influenza Virus Vaccine Quad IM, Preserv and ABX Free 6 MO-64 YRS 2022-02-22 00:00:[address] [facility] [place] Influenza Virus Vaccine Quad IM, Preserv and ABX Free 6 MO-64 YRS 2022-02-22 00:00:[address] [facility] [place] Influenza Virus Vaccine Quad IM, Preserv and ABX Free 6 MO-64 YRS 2022-02-22 00:00:[address] [facility] [place] Influenza Virus Vaccine Quad IM, Preserv and ABX Free 6 MO-64 YRS 2022-02-22 00:00:[address] [facility] [place] Influenza Virus Vaccine Quad IM, Preserv and ABX Free 6 MO-64 YRS 2022-02-22 00:00:[address] [facility] [place] Influenza Virus Vaccine Quad IM, Preserv and ABX Free 6 MO-64 YRS 2022-02-22 00:00:[address] [facility] [place] Influenza Virus Vaccine Quad IM, Preserv and ABX Free 6 MO-64 YRS 2022-02-22 00:00:[address] [facility] [place] Influenza Virus Vaccine Quad IM, Preserv and ABX Free 6 MO-64 YRS 2022-02-22 00:00:[address] [facility] [place] Influenza Virus Vaccine Quad IM, Preserv and ABX Free 6 MO-64 YRS 2022-02-22 00:00:[address] [facility] [place] Influenza Virus Vaccine Quad IM, Preserv and ABX Free 6 MO-64 YRS 2022-02-22 00:00:[address] [facility] [place] Influenza Virus Vaccine Quad IM, Preserv and ABX Free 6 MO-64 YRS 2022-02-22 00:00:[address] [facility] [place] HPV9 2021-12-30 00:00:[address] [facility] [place] HPV9 2021-12-30 00:00:[address] [facility] [place] HPV9 2021-12-30 00:00:[address] [facility] [place] HPV9 2021-12-30 00:00:[address] [facility] [place] HPV9 2021-12-30 00:00:[address] [facility] [place] HPV9 2021-12-30 00:00:[address] [facility] [place] HPV9 2021-12-30 00:00:[address] [facility] [place] HPV9 2021-12-30 00:00:[address] [facility] [place] HPV9 2021-12-30 00:00:[address] [facility] [place] HPV9 2021-12-30 00:00:[address] [facility] [place] HPV9 2021-12-30 00:00:[address] [facility] [place] HPV9 2021-12-30 00:00:[address] [facility] [place] HPV9 2021-12-30 00:00:[address] [facility] [place] HPV9 2021-12-30 00:00:[address] [facility] [place] HPV9 2021-12-30 00:00:[address] [facility] [place] HPV9 2021-12-30 00:00:[address] [facility] [place] HPV9 2021-12-30 00:00:[address] [facility] [place] HPV9 2021-12-30 00:00:[address] [facility] [place] HPV9 2021-12-30 00:00:[address] [facility] [place] HPV9 2021-12-30 00:00:[address] [facility] [place] HPV9 2021-12-30 00:00:[address] [facility] [place] HPV9 2021-12-30 00:00:[address] [facility] [place] HPV9 2021-12-30 00:00:[address] [facility] [place] HPV9 2021-12-30 00:00:[address] [facility] [place] HPV9 2021-12-30 00:00:[address] [facility] [place] HPV9 2021-12-30 00:00:[address] [facility] [place] HPV9 2021-12-30 00:00:[address] [facility] [place] HPV9 2021-12-30 00:00:[address] [facility] [place] HPV9 2021-12-30 00:00:[address] [facility] [place] HPV9 2021-12-30 00:00:[address] [facility] [place] HPV9 2021-12-30 00:00:[address] [facility] [place] HPV9 2021-12-30 00:00:[address] [facility] [place] HPV9 2021-12-30 00:00:[address] [facility] [place] HPV9 2021-12-30 00:00:[address] [facility] [place] HPV9 2021-12-30 00:00:[address] [facility] [place] HPV9 2021-12-30 00:00:[address] [facility] [place] [place] HPV9 2021-12-30 00:00:[address] [facility] [place] HPV9 2021-12-30 00:00:[address] [facility] [place] HPV9 2021-12-30 00:00:[address] [facility] [place] HPV9 2021-12-30 00:00:[address] [facility] [place] HPV9 2021-12-30 00:00:[address] [facility] [place] HPV9 2021-12-30 00:00:[address] [facility] [place] HPV9 2021-12-30 00:00:[address] [facility] [place] HPV9 2021-12-30 00:00:[address] [facility] [place] HPV9 2021-12-30 00:00:[address] [facility] [place] HPV9 2021-12-30 00:00:[address] [facility] [place] HPV9 2021-12-30 00:00:[address] [facility] [place] HPV9 2021-12-30 00:00:[address] [facility] [place] HPV9 2021-12-30 00:00:[address] [facility] [place] HPV9 2021-12-30 00:00:[address] [facility] [place] HPV9 2021-12-30 00:00:[address] [facility] [place] HPV9 2021-12-30 00:00:[address] [facility] [place] HPV9 2021-12-30 00:00:[address] [facility] [place] HPV9 2021-12-30 00:00:[address] [facility] [place] HPV9 2021-12-30 00:00:[address] [facility] [place] HPV9 2021-12-30 00:00:[address] [facility] [place] HPV9 2021-12-30 00:00:[address] [facility] [place] HPV9 2021-12-30 00:00:[address] [facility] [place] HPV9 2021-12-30 00:00:[address] [facility] [place] HPV9 2021-12-30 00:00:[address] [facility] [place] HPV9 2021-12-30 00:00:[address] [facility] [place] HPV9 2021-12-30 00:00:[address] [facility] [place] HPV9 2021-12-30 00:00:[address] [facility] [place] HPV9 2021-12-30 00:00:[address] [facility] [place] HPV9 2021-12-30 00:00:[address] [facility] [place] HPV9 2021-12-30 00:00:[address] [facility] [place] HPV9 2021-12-30 00:00:[address] [facility] [place] HPV9 2021-12-30 00:00:[address] [facility] [place] HPV9 2021-12-30 00:00:[address] [facility] [place] HPV9 2021-12-30 00:00:[address] [facility] [place] HPV9 2021-12-30 00:00:[address] [facility] [place] HPV9 2021-12-30 00:00:[address] [facility] [place] HPV9 2021-12-30 00:00:[address] [facility] [place] HPV9 2021-12-30 00:00:[address] [facility] [place] HPV9 2021-12-30 00:00:[address] [facility] [place] HPV9 2021-12-30 00:00:[address] [facility] [place] HPV9 2021-12-30 00:00:[address] [facility] [place] HPV9 2021-12-30 00:00:[address] [facility] [place] HPV9 2021-12-30 00:00:[address] [facility] [place] HPV9 2021-12-30 00:00:[address] [facility] [place] HPV9 2021-12-30 00:00:[address] [facility] [place] HPV9 2021-12-30 00:00:[address] [facility] [place] HPV9 2021-12-30 00:00:[address] [facility] [place] HPV9 2021-12-30 00:00:[address] [facility] [place] HPV9 2021-12-30 00:00:[address] [facility] [place] HPV9 2021-12-30 00:00:[address] [facility] [place] HPV9 2021-12-30 00:00:[address] [facility] [place] HPV9 2021-12-30 00:00:[address] [facility] [place] HPV9 2021-12-30 00:00:[address] [facility] [place] HPV9 2021-12-30 00:00:[address] [facility] [place] HPV9 2021-12-30 00:00:[address] [facility] [place] HPV9 2021-12-30 00:00:[address] [facility] [place] HPV9 2021-12-30 00:00:[address] [facility] [place] HPV9 2021-12-30 00:00:[address] [facility] [place] SARS-COV-2 COVID-19 VACCINE - (MODERNA) 2020-09-17 00:00:[address] [facility] [place] SARS-COV-2 COVID-19 VACCINE - (MODERNA) 2020-09-17 00:00:[address] [facility] [place] SARS-COV-2 COVID-19 VACCINE - (MODERNA) 2020-09-17 00:00:[address] [facility] [place] SARS-COV-2 COVID-19 VACCINE - (MODERNA) 2020-09-17 00:00:[address] [facility] [place] SARS-COV-2 COVID-19 VACCINE - (MODERNA) 2020-09-17 00:00:[address] [facility] [place] SARS-COV-2 COVID-19 VACCINE - (MODERNA) 2020-09-17 00:00:[address] [facility] [place] SARS-COV-2 COVID-19 VACCINE - (MODERNA) 2020-09-17 00:00:[address] [facility] [place] SARS-COV-2 COVID-19 VACCINE - (MODERNA) 2020-09-17 00:00:[address] [facility] [place] SARS-COV-2 COVID-19 VACCINE - (MODERNA) 2020-09-17 00:00:[address] [facility] [place] SARS-COV-2 COVID-19 VACCINE - (MODERNA) 2020-09-17 00:00:[address] [facility] [place] SARS-COV-2 COVID-19 VACCINE - (MODERNA) 2020-09-17 00:00:[address] [facility] [place] SARS-COV-2 COVID-19 VACCINE - (MODERNA) 2020-09-17 00:00:[address] [facility] [place] SARS-COV-2 COVID-19 VACCINE - (MODERNA) 2020-09-17 00:00:[address] [facility] [place] SARS-COV-2 COVID-19 VACCINE - (MODERNA) 2020-09-17 00:00:[address] [facility] [place] SARS-COV-2 COVID-19 VACCINE - (MODERNA) 2020-09-17 00:00:[address] [facility] [place] SARS-COV-2 COVID-19 VACCINE - (MODERNA) 2020-09-17 00:00:[address] [facility] [place] SARS-COV-2 COVID-19 VACCINE - (MODERNA) 2020-09-17 00:00:[address] [facility] [place] SARS-COV-2 COVID-19 VACCINE - (MODERNA) 2020-09-17 00:00:[address] [facility] [place] SARS-COV-2 COVID-19 VACCINE - (MODERNA) 2020-09-17 00:00:[address] [facility] [place] SARS-COV-2 COVID-19 VACCINE - (MODERNA) 2020-09-17 00:00:[address] [facility] [place] SARS-COV-2 COVID-19 VACCINE - (MODERNA) 2020-09-17 00:00:[address] [facility] [place] SARS-COV-2 COVID-19 VACCINE - (MODERNA) 2020-09-17 00:00:[address] [facility] [place] SARS-COV-2 COVID-19 VACCINE - (MODERNA) 2020-09-17 00:00:[address] [facility] [place] SARS-COV-2 COVID-19 VACCINE - (MODERNA) 2020-09-17 00:00:[address] [facility] [place] SARS-COV-2 COVID-19 VACCINE - (MODERNA) 2020-09-17 00:00:[address] [facility] [place] SARS-COV-2 COVID-19 VACCINE - (MODERNA) 2020-09-17 00:00:[address] [facility] [place] SARS-COV-2 COVID-19 VACCINE - (MODERNA) 2020-09-17 00:00:[address] [facility] [place] SARS-COV-2 COVID-19 VACCINE - (MODERNA) 2020-09-17 00:00:[address] [facility] [place] SARS-COV-2 COVID-19 VACCINE - (MODERNA) 2020-09-17 00:00:[address] [facility] [place] SARS-COV-2 COVID-19 VACCINE - (MODERNA) 2020-09-17 00:00:[address] [facility] [place] SARS-COV-2 COVID-19 VACCINE - (MODERNA) 2020-09-17 00:00:[address] [facility] [place] SARS-COV-2 COVID-19 VACCINE - (MODERNA) 2020-09-17 00:00:[address] [facility] [place] SARS-COV-2 COVID-19 VACCINE - (MODERNA) 2020-09-17 00:00:[address] [facility] [place] SARS-COV-2 COVID-19 VACCINE - (MODERNA) 2020-09-17 00:00:[address] [facility] [place] SARS-COV-2 COVID-19 VACCINE - (MODERNA) 2020-09-17 00:00:[address] [facility] [place] SARS-COV-2 COVID-19 VACCINE - (MODERNA) 2020-09-17 00:00:[address] [facility] [place] SARS-COV-2 COVID-19 VACCINE - (MODERNA) 2020-09-17 00:00:[address] [facility] [place] SARS-COV-2 COVID-19 VACCINE - (MODERNA) 2020-09-17 00:00:[address] [facility] [place] SARS-COV-2 COVID-19 VACCINE - (MODERNA) 2020-09-17 00:00:[address] [facility] [place] SARS-COV-2 COVID-19 VACCINE - (MODERNA) 2020-09-17 00:00:[address] [facility] [place] SARS-COV-2 COVID-19 VACCINE - (MODERNA) 2020-09-17 00:00:[address] [facility] [place] SARS-COV-2 COVID-19 VACCINE - (MODERNA) 2020-09-17 00:00:[address] [facility] [place] SARS-COV-2 COVID-19 VACCINE - (MODERNA) 2020-09-17 00:00:[address] [facility] [place] SARS-COV-2 COVID-19 VACCINE - (MODERNA) 2020-09-17 00:00:[address] [facility] [place] SARS-COV-2 COVID-19 VACCINE - (MODERNA) 2020-09-17 00:00:[address] [facility] [place] SARS-COV-2 COVID-19 VACCINE - (MODERNA) 2020-09-17 00:00:[address] [facility] [place] SARS-COV-2 COVID-19 VACCINE - (MODERNA) 2020-09-17 00:00:[address] [facility] [place] SARS-COV-2 COVID-19 VACCINE - (MODERNA) 2020-09-17 00:00:[address] [facility] [place] SARS-COV-2 COVID-19 VACCINE - (MODERNA) 2020-09-17 00:00:[address] [facility] [place] SARS-COV-2 COVID-19 VACCINE - (MODERNA) 2020-09-17 00:00:[address] [facility] [place] SARS-COV-2 COVID-19 VACCINE - (MODERNA) 2020-09-17 00:00:[address] [facility] [place] SARS-COV-2 COVID-19 VACCINE - (MODERNA) 2020-09-17 00:00:[address] [facility] [place] SARS-COV-2 COVID-19 VACCINE - (MODERNA) 2020-09-17 00:00:[address] [facility] [place] SARS-COV-2 COVID-19 VACCINE - (MODERNA) 2020-09-17 00:00:[address] [facility] [place] SARS-COV-2 COVID-19 VACCINE - (MODERNA) 2020-09-17 00:00:[address] [facility] [place] SARS-COV-2 COVID-19 VACCINE - (MODERNA) 2020-09-17 00:00:[address] [facility] [place] SARS-COV-2 COVID-19 VACCINE - (MODERNA) 2020-09-17 00:00:[address] [facility] [place] SARS-COV-2 COVID-19 VACCINE - (MODERNA) 2020-09-17 00:00:[address] [facility] [place] SARS-COV-2 COVID-19 VACCINE - (MODERNA) 2020-09-17 00:00:[address] [facility] [place] SARS-COV-2 COVID-19 VACCINE - (MODERNA) 2020-09-17 00:00:[address] [facility] [place] SARS-COV-2 COVID-19 VACCINE - (MODERNA) 2020-09-17 00:00:[address] [facility] [place] SARS-COV-2 COVID-19 VACCINE - (MODERNA) 2020-09-17 00:00:[address] [facility] [place] SARS-COV-2 COVID-19 VACCINE - (MODERNA) 2020-09-17 00:00:[address] [facility] [place] SARS-COV-2 COVID-19 VACCINE - (MODERNA) 2020-09-17 00:00:[address] [facility] [place] SARS-COV-2 COVID-19 VACCINE - (MODERNA) 2020-08-07 00:00:[address] [facility] [place] SARS-COV-2 COVID-19 VACCINE - (MODERNA) 2020-08-07 00:00:[address] [facility] [place] SARS-COV-2 COVID-19 VACCINE - (MODERNA) 2020-08-07 00:00:[address] [facility] [place] SARS-COV-2 COVID-19 VACCINE - (MODERNA) 2020-08-07 00:00:[address] [facility] [place] SARS-COV-2 COVID-19 VACCINE - (MODERNA) 2020-08-07 00:00:[address] [facility] [place] SARS-COV-2 COVID-19 VACCINE - (MODERNA) 2020-08-07 00:00:[address] [facility] [place] SARS-COV-2 COVID-19 VACCINE - (MODERNA) 2020-08-07 00:00:[address] [facility] [place] SARS-COV-2 COVID-19 VACCINE - (MODERNA) 2020-08-07 00:00:[address] [facility] [place] SARS-COV-2 COVID-19 VACCINE - (MODERNA) 2020-08-07 00:00:[address] [facility] [place] SARS-COV-2 COVID-19 VACCINE - (MODERNA) 2020-08-07 00:00:[address] [facility] [place] SARS-COV-2 COVID-19 VACCINE - (MODERNA) 2020-08-07 00:00:[address] [facility] [place] SARS-COV-2 COVID-19 VACCINE - (MODERNA) 2020-08-07 00:00:[address] [facility] [place] SARS-COV-2 COVID-19 VACCINE - (MODERNA) 2020-08-07 00:00:[address] [facility] [place] SARS-COV-2 COVID-19 VACCINE - (MODERNA) 2020-08-07 00:00:[address] [facility] [place] SARS-COV-2 COVID-19 VACCINE - (MODERNA) 2020-08-07 00:00:[address] [facility] [place] SARS-COV-2 COVID-19 VACCINE - (MODERNA) 2020-08-07 00:00:[address] [facility] [place] SARS-COV-2 COVID-19 VACCINE - (MODERNA) 2020-08-07 00:00:[address] [facility] [place] SARS-COV-2 COVID-19 VACCINE - (MODERNA) 2020-08-07 00:00:[address] [facility] [place] SARS-COV-2 COVID-19 VACCINE - (MODERNA) 2020-08-07 00:00:[address] [facility] [place] SARS-COV-2 COVID-19 VACCINE - (MODERNA) 2020-08-07 00:00:[address] [facility] [place] SARS-COV-2 COVID-19 VACCINE - (MODERNA) 2020-08-07 00:00:[address] [facility] [place] SARS-COV-2 COVID-19 VACCINE - (MODERNA) 2020-08-07 00:00:[address] [facility] [place] SARS-COV-2 COVID-19 VACCINE - (MODERNA) 2020-08-07 00:00:[address] [facility] [place] SARS-COV-2 COVID-19 VACCINE - (MODERNA) 2020-08-07 00:00:[address] [facility] [place] SARS-COV-2 COVID-19 VACCINE - (MODERNA) 2020-08-07 00:00:[address] [facility] [place] SARS-COV-2 COVID-19 VACCINE - (MODERNA) 2020-08-07 00:00:[address] [facility] [place] SARS-COV-2 COVID-19 VACCINE - (MODERNA) 2020-08-07 00:00:[address] [facility] [place] SARS-COV-2 COVID-19 VACCINE - (MODERNA) 2020-08-07 00:00:[address] [facility] [place] SARS-COV-2 COVID-19 VACCINE - (MODERNA) 2020-08-07 00:00:[address] [facility] [place] SARS-COV-2 COVID-19 VACCINE - (MODERNA) 2020-08-07 00:00:[address] [facility] [place] SARS-COV-2 COVID-19 VACCINE - (MODERNA) 2020-08-07 00:00:[address] [facility] [place] SARS-COV-2 COVID-19 VACCINE - (MODERNA) 2020-08-07 00:00:[address] [facility] [place] SARS-COV-2 COVID-19 VACCINE - (MODERNA) 2020-08-07 00:00:[address] [facility] [place] SARS-COV-2 COVID-19 VACCINE - (MODERNA) 2020-08-07 00:00:[address] [facility] [place] SARS-COV-2 COVID-19 VACCINE - (MODERNA) 2020-08-07 00:00:[address] [facility] [place] SARS-COV-2 COVID-19 VACCINE - (MODERNA) 2020-08-07 00:00:[address] [facility] [place] SARS-COV-2 COVID-19 VACCINE - (MODERNA) 2020-08-07 00:00:[address] [facility] [place] SARS-COV-2 COVID-19 VACCINE - (MODERNA) 2020-08-07 00:00:[address] [facility] [place] SARS-COV-2 COVID-19 VACCINE - (MODERNA) 2020-08-07 00:00:[address] [facility] [place] SARS-COV-2 COVID-19 VACCINE - (MODERNA) 2020-08-07 00:00:[address] [facility] [place] SARS-COV-2 COVID-19 VACCINE - (MODERNA) 2020-08-07 00:00:[address] [facility] [place] SARS-COV-2 COVID-19 VACCINE - (MODERNA) 2020-08-07 00:00:[address] [facility] [place] SARS-COV-2 COVID-19 VACCINE - (MODERNA) 2020-08-07 00:00:[address] [facility] [place] SARS-COV-2 COVID-19 VACCINE - (MODERNA) 2020-08-07 00:00:[address] [facility] [place] SARS-COV-2 COVID-19 VACCINE - (MODERNA) 2020-08-07 00:00:[address] [facility] [place] SARS-COV-2 COVID-19 VACCINE - (MODERNA) 2020-08-07 00:00:[address] [facility] [place] SARS-COV-2 COVID-19 VACCINE - (MODERNA) 2020-08-07 00:00:[address] [facility] [place] SARS-COV-2 COVID-19 VACCINE - (MODERNA) 2020-08-07 00:00:[address] [facility] [place] SARS-COV-2 COVID-19 VACCINE - (MODERNA) 2020-08-07 00:00:[address] [facility] [place] SARS-COV-2 COVID-19 VACCINE - (MODERNA) 2020-08-07 00:00:[address] [facility] [place] SARS-COV-2 COVID-19 VACCINE - (MODERNA) 2020-08-07 00:00:[address] [facility] [place] SARS-COV-2 COVID-19 VACCINE - (MODERNA) 2020-08-07 00:00:[address] [facility] [place] SARS-COV-2 COVID-19 VACCINE - (MODERNA) 2020-08-07 00:00:[address] [facility] [place] SARS-COV-2 COVID-19 VACCINE - (MODERNA) 2020-08-07 00:00:[address] [facility] [place] SARS-COV-2 COVID-19 VACCINE - (MODERNA) 2020-08-07 00:00:[address] [facility] [place] SARS-COV-2 COVID-19 VACCINE - (MODERNA) 2020-08-07 00:00:[address] [facility] [place] SARS-COV-2 COVID-19 VACCINE - (MODERNA) 2020-08-07 00:00:[address] [facility] [place] SARS-COV-2 COVID-19 VACCINE - (MODERNA) 2020-08-07 00:00:[address] [facility] [place] SARS-COV-2 COVID-19 VACCINE - (MODERNA) 2020-08-07 00:00:[address] [facility] [place] SARS-COV-2 COVID-19 VACCINE - (MODERNA) 2020-08-07 00:00:[address] [facility] [place] SARS-COV-2 COVID-19 VACCINE - (MODERNA) 2020-08-07 00:00:[address] [facility] [place] SARS-COV-2 COVID-19 VACCINE - (MODERNA) 2020-08-07 00:00:[address] [facility] [place] SARS-COV-2 COVID-19 VACCINE - (MODERNA) 2020-08-07 00:00:[address] [facility] [place] SARS-COV-2 COVID-19 VACCINE - (MODERNA) 2020-08-07 00:00:[address] [facility] [place] SARS-COV-2 COVID-19 MODERNA 12+ YRS VACCINE 2020-06-13 00:00:[address] [facility] [place] SARS-COV-2 COVID-19 MODERNA 12+ YRS VACCINE 2020-06-13 00:00:[address] [facility] [place] SARS-COV-2 COVID-19 MODERNA 12+ YRS VACCINE 2020-06-13 00:00:[address] [facility] [place] SARS-COV-2 COVID-19 MODERNA 12+ YRS VACCINE 2020-06-13 00:00:[address] [facility] [place] SARS-COV-2 COVID-19 MODERNA 12+ YRS VACCINE 2020-06-13 00:00:[address] [facility] [place] SARS-COV-2 COVID-19 MODERNA 12+ YRS VACCINE 2020-06-13 00:00:[address] [facility] [place] SARS-COV-2 COVID-19 MODERNA 12+ YRS VACCINE 2020-06-13 00:00:[address] [facility] [place] SARS-COV-2 COVID-19 MODERNA 12+ YRS VACCINE 2020-06-13 00:00:[address] [facility] [place] SARS-COV-2 COVID-19 MODERNA 12+ YRS VACCINE 2020-06-13 00:00:[address] [facility] [place] SARS-COV-2 COVID-19 MODERNA 12+ YRS VACCINE 2020-06-13 00:00:[address] [facility] [place] SARS-COV-2 COVID-19 MODERNA 12+ YRS VACCINE 2020-06-13 00:00:[address] [facility] [place] SARS-COV-2 COVID-19 MODERNA 12+ YRS VACCINE 2020-06-13 00:00:[address] [facility] [place] SARS-COV-2 COVID-19 MODERNA 12+ YRS VACCINE 2020-06-13 00:00:[address] [facility] [place] SARS-COV-2 COVID-19 MODERNA 12+ YRS VACCINE 2020-06-13 00:00:[address] [facility] [place] SARS-COV-2 COVID-19 MODERNA 12+ YRS VACCINE 2020-06-13 00:00:[address] [facility] [place] SARS-COV-2 COVID-19 MODERNA 12+ YRS VACCINE 2020-06-13 00:00:[address] [facility] [place] SARS-COV-2 COVID-19 MODERNA 12+ YRS VACCINE 2020-06-13 00:00:[address] [facility] [place] SARS-COV-2 COVID-19 MODERNA 12+ YRS VACCINE 2020-06-13 00:00:[address] [facility] [place] SARS-COV-2 COVID-19 MODERNA 12+ YRS VACCINE 2020-06-13 00:00:[address] [facility] [place] SARS-COV-2 COVID-19 MODERNA 12+ YRS VACCINE 2020-06-13 00:00:[address] [facility] [place] SARS-COV-2 COVID-19 MODERNA 12+ YRS VACCINE 2020-06-13 00:00:[address] [facility] [place] SARS-COV-2 COVID-19 MODERNA 12+ YRS VACCINE 2020-06-13 00:00:[address] [facility] [place] SARS-COV-2 COVID-19 MODERNA 12+ YRS VACCINE 2020-06-13 00:00:[address] [facility] [place] SARS-COV-2 COVID-19 MODERNA 12+ YRS VACCINE 2020-06-13 00:00:[address] [facility] [place] SARS-COV-2 COVID-19 MODERNA 12+ YRS VACCINE 2020-06-13 00:00:[address] [facility] [place] SARS-COV-2 COVID-19 MODERNA 12+ YRS VACCINE 2020-06-13 00:00:[address] [facility] [facility] [place] [place] SARS-COV-2 COVID-19 MODERNA 12+ YRS VACCINE 2020-06-13 00:00:[address] [facility] [place] SARS-COV-2 COVID-19 MODERNA 12+ YRS VACCINE 2020-06-13 00:00:[address] [facility] [place] SARS-COV-2 COVID-19 MODERNA 12+ YRS VACCINE 2020-06-13 00:00:[address] [facility] [place] SARS-COV-2 COVID-19 MODERNA 12+ YRS VACCINE 2020-06-13 00:00:[address] [facility] [place] SARS-COV-2 COVID-19 MODERNA 12+ YRS VACCINE 2020-06-13 00:00:[address] [facility] [place] SARS-COV-2 COVID-19 MODERNA 12+ YRS VACCINE 2020-06-13 00:00:[address] [facility] [place] SARS-COV-2 COVID-19 MODERNA 12+ YRS VACCINE 2020-06-13 00:00:[address] [facility] [place] SARS-COV-2 COVID-19 MODERNA 12+ YRS VACCINE 2020-06-13 00:00:[address] [facility] [place] SARS-COV-2 COVID-19 MODERNA 12+ YRS VACCINE 2020-06-13 00:00:[address] [facility] [place] SARS-COV-2 COVID-19 MODERNA 12+ YRS VACCINE 2020-06-13 00:00:[address] [facility] [place] SARS-COV-2 COVID-19 MODERNA 12+ YRS VACCINE 2020-06-13 00:00:[address] [facility] [place] SARS-COV-2 COVID-19 MODERNA 12+ YRS VACCINE 2020-06-13 00:00:[address] [facility] [place] SARS-COV-2 COVID-19 MODERNA 12+ YRS VACCINE 2020-06-13 00:00:[address] [facility] [place] SARS-COV-2 COVID-19 MODERNA 12+ YRS VACCINE 2020-06-13 00:00:[address] [facility] [place] SARS-COV-2 COVID-19 MODERNA 12+ YRS VACCINE 2020-06-13 00:00:[address] [facility] [place] SARS-COV-2 COVID-19 MODERNA 12+ YRS VACCINE 2020-06-13 00:00:[address] [facility] [place] SARS-COV-2 COVID-19 MODERNA 12+ YRS VACCINE 2020-06-13 00:00:[address] [facility] [place] SARS-COV-2 COVID-19 MODERNA 12+ YRS VACCINE 2020-06-13 00:00:[address] [facility] [place] SARS-COV-2 COVID-19 MODERNA 12+ YRS VACCINE 2020-06-13 00:00:[address] [facility] [place] SARS-COV-2 COVID-19 MODERNA 12+ YRS VACCINE 2020-06-13 00:00:[address] [facility] [place] SARS-COV-2 COVID-19 MODERNA 12+ YRS VACCINE 2020-06-13 00:00:[address] [facility] [place] SARS-COV-2 COVID-19 MODERNA 12+ YRS VACCINE 2020-06-13 00:00:[address] [facility] [place] SARS-COV-2 COVID-19 MODERNA 12+ YRS VACCINE 2020-06-13 00:00:[address] [facility] [place] SARS-COV-2 COVID-19 MODERNA 12+ YRS VACCINE 2020-06-13 00:00:[address] [facility] [place] SARS-COV-2 COVID-19 MODERNA 12+ YRS VACCINE 2020-06-13 00:00:[address] [facility] [place] SARS-COV-2 COVID-19 MODERNA 12+ YRS VACCINE 2020-06-13 00:00:[address] [facility] [place] SARS-COV-2 COVID-19 MODERNA 12+ YRS VACCINE 2020-06-13 00:00:[address] [facility] [place] SARS-COV-2 COVID-19 MODERNA 12+ YRS VACCINE 2020-06-13 00:00:[address] [facility] [place] SARS-COV-2 COVID-19 MODERNA 12+ YRS VACCINE 2020-06-13 00:00:[address] [facility] [place] SARS-COV-2 COVID-19 MODERNA 12+ YRS VACCINE 2020-06-13 00:00:[address] [facility] [place] SARS-COV-2 COVID-19 MODERNA 12+ YRS VACCINE 2020-06-13 00:00:[address] [facility] [place] SARS-COV-2 COVID-19 MODERNA 12+ YRS VACCINE 2020-06-13 00:00:[address] [facility] [place] SARS-COV-2 COVID-19 MODERNA 12+ YRS VACCINE 2020-06-13 00:00:[address] [facility] [place] SARS-COV-2 COVID-19 MODERNA 12+ YRS VACCINE 2020-06-13 00:00:[address] [facility] [place] SARS-COV-2 COVID-19 MODERNA 12+ YRS VACCINE 2020-06-13 00:00:[address] [facility] [place] SARS-COV-2 COVID-19 MODERNA 12+ YRS VACCINE 2020-06-13 00:00:[address] [facility] [place] SARS-COV-2 COVID-19 MODERNA 12+ YRS VACCINE 2020-06-13 00:00:[address] [facility] [place] SARS-COV-2 COVID-19 MODERNA 12+ YRS VACCINE 2020-06-13 00:00:[address] [facility] [place] SARS-COV-2 COVID-19 MODERNA 12+ YRS VACCINE 2020-06-13 00:00:[address] [facility] [place] SARS-COV-2 COVID-19 MODERNA 12+ YRS VACCINE 2020-06-13 00:00:[address] [facility] [place] SARS-COV-2 COVID-19 MODERNA 12+ YRS VACCINE 2020-06-13 00:00:[address] [facility] [place] SARS-COV-2 COVID-19 MODERNA 12+ YRS VACCINE 2020-06-13 00:00:[address] [facility] [place] SARS-COV-2 COVID-19 MODERNA 12+ YRS VACCINE 2020-06-13 00:00:[address] [facility] [place] SARS-COV-2 COVID-19 MODERNA 12+ YRS VACCINE 2020-06-13 00:00:[address] [facility] [place] SARS-COV-2 COVID-19 MODERNA 12+ YRS VACCINE 2020-06-13 00:00:[address] [facility] [place] SARS-COV-2 COVID-19 MODERNA 12+ YRS VACCINE 2020-06-13 00:00:[address] [facility] [place] SARS-COV-2 COVID-19 MODERNA 12+ YRS VACCINE 2020-06-13 00:00:[address] [facility] [place] SARS-COV-2 COVID-19 MODERNA 12+ YRS VACCINE 2020-06-13 00:00:[address] [facility] [place] SARS-COV-2 COVID-19 MODERNA 12+ YRS VACCINE 2020-06-13 00:00:[address] [facility] [place] SARS-COV-2 COVID-19 MODERNA 12+ YRS VACCINE 2020-06-13 00:00:[address] [facility] [place] SARS-COV-2 COVID-19 MODERNA 12+ YRS VACCINE 2020-06-13 00:00:[address] [facility] [place] SARS-COV-2 COVID-19 MODERNA 12+ YRS VACCINE 2020-06-13 00:00:[address] [facility] [place] SARS-COV-2 COVID-19 MODERNA 12+ YRS VACCINE 2020-06-13 00:00:[address] [facility] [place] SARS-COV-2 COVID-19 MODERNA 12+ YRS VACCINE 2020-06-13 00:00:[address] [facility] [place] SARS-COV-2 COVID-19 MODERNA 12+ YRS VACCINE 2020-06-13 00:00:[address] [facility] [place] SARS-COV-2 COVID-19 MODERNA 12+ YRS VACCINE 2020-06-13 00:00:[address] [facility] [place] SARS-COV-2 COVID-19 MODERNA 12+ YRS VACCINE 2020-06-13 00:00:[address] [facility] [place] SARS-COV-2 COVID-19 MODERNA 12+ YRS VACCINE 2020-06-13 00:00:[address] [facility] [place] SARS-COV-2 COVID-19 MODERNA 12+ YRS VACCINE 2020-06-13 00:00:[address] [facility] [place] SARS-COV-2 COVID-19 MODERNA 12+ YRS VACCINE 2020-06-13 00:00:[address] [facility] [place] SARS-COV-2 COVID-19 MODERNA 12+ YRS VACCINE 2020-06-13 00:00:[address] [facility] [place] SARS-COV-2 COVID-19 MODERNA 12+ YRS VACCINE 2020-06-13 00:00:[address] [facility] [place] SARS-COV-2 COVID-19 MODERNA 12+ YRS VACCINE 2020-06-13 00:00:[address] [facility] [place] SARS-COV-2 COVID-19 MODERNA 12+ YRS VACCINE 2020-06-13 00:00:[address] [facility] [place] SARS-COV-2 COVID-19 MODERNA 12+ YRS VACCINE 2020-06-13 00:00:[address] [facility] [place] SARS-COV-2 COVID-19 MODERNA 12+ YRS VACCINE 2020-06-13 00:00:[address] [facility] [place] SARS-COV-2 COVID-19 MODERNA 12+ YRS VACCINE 2020-06-13 00:00:[address] [facility] [place] SARS-COV-2 COVID-19 MODERNA 12+ YRS VACCINE 2020-06-13 00:00:[address] [facility] [place] SARS-COV-2 COVID-19 MODERNA 12+ YRS VACCINE 2020-05-30 00:00:[address] [facility] [place] SARS-COV-2 COVID-19 MODERNA 12+ YRS VACCINE 2020-05-30 00:00:[address] [facility] [place] SARS-COV-2 COVID-19 MODERNA 12+ YRS VACCINE 2020-05-30 00:00:[address] [facility] [place] SARS-COV-2 COVID-19 MODERNA 12+ YRS VACCINE 2020-05-30 00:00:[address] [facility] [place] SARS-COV-2 COVID-19 MODERNA 12+ YRS VACCINE 2020-05-30 00:00:[address] [facility] [place] SARS-COV-2 COVID-19 MODERNA 12+ YRS VACCINE 2020-05-30 00:00:[address] [facility] [place] SARS-COV-2 COVID-19 MODERNA 12+ YRS VACCINE 2020-05-30 00:00:[address] [facility] [place] SARS-COV-2 COVID-19 MODERNA 12+ YRS VACCINE 2020-05-30 00:00:[address] [facility] [place] SARS-COV-2 COVID-19 MODERNA 12+ YRS VACCINE 2020-05-30 00:00:[address] [facility] [place] SARS-COV-2 COVID-19 MODERNA 12+ YRS VACCINE 2020-05-30 00:00:[address] [facility] [place] SARS-COV-2 COVID-19 MODERNA 12+ YRS VACCINE 2020-05-30 00:00:[address] [facility] [place] SARS-COV-2 COVID-19 MODERNA 12+ YRS VACCINE 2020-05-30 00:00:[address] [facility] [place] SARS-COV-2 COVID-19 MODERNA 12+ YRS VACCINE 2020-05-30 00:00:[address] [facility] [place] SARS-COV-2 COVID-19 MODERNA 12+ YRS VACCINE 2020-05-30 00:00:[address] [facility] [place] SARS-COV-2 COVID-19 MODERNA 12+ YRS VACCINE 2020-05-30 00:00:[address] [facility] [place] SARS-COV-2 COVID-19 MODERNA 12+ YRS VACCINE 2020-05-30 00:00:[address] [facility] [place] SARS-COV-2 COVID-19 MODERNA 12+ YRS VACCINE 2020-05-30 00:00:[address] [facility] [place] SARS-COV-2 COVID-19 MODERNA 12+ YRS VACCINE 2020-05-30 00:00:[address] [facility] [place] SARS-COV-2 COVID-19 MODERNA 12+ YRS VACCINE 2020-05-30 00:00:[address] [facility] [place] SARS-COV-2 COVID-19 MODERNA 12+ YRS VACCINE 2020-05-30 00:00:[address] [facility] [place] SARS-COV-2 COVID-19 MODERNA 12+ YRS VACCINE 2020-05-30 00:00:[address] [facility] [place] SARS-COV-2 COVID-19 MODERNA 12+ YRS VACCINE 2020-05-30 00:00:[address] [facility] [place] SARS-COV-2 COVID-19 MODERNA 12+ YRS VACCINE 2020-05-30 00:00:[address] [facility] [place] SARS-COV-2 COVID-19 MODERNA 12+ YRS VACCINE 2020-05-30 00:00:[address] [facility] [place] SARS-COV-2 COVID-19 MODERNA 12+ YRS VACCINE 2020-05-30 00:00:[address] [facility] [place] SARS-COV-2 COVID-19 MODERNA 12+ YRS VACCINE 2020-05-30 00:00:[address] [facility] [place] SARS-COV-2 COVID-19 MODERNA 12+ YRS VACCINE 2020-05-30 00:00:[address] [facility] [place] SARS-COV-2 COVID-19 MODERNA 12+ YRS VACCINE 2020-05-30 00:00:[address] [facility] [place] SARS-COV-2 COVID-19 MODERNA 12+ YRS VACCINE 2020-05-30 00:00:[address] [facility] [place] SARS-COV-2 COVID-19 MODERNA 12+ YRS VACCINE 2020-05-30 00:00:[address] [facility] [place] SARS-COV-2 COVID-19 MODERNA 12+ YRS VACCINE 2020-05-30 00:00:[address] [facility] [place] SARS-COV-2 COVID-19 MODERNA 12+ YRS VACCINE 2020-05-30 00:00:[address] [facility] [place] SARS-COV-2 COVID-19 MODERNA 12+ YRS VACCINE 2020-05-30 00:00:[address] [facility] [place] SARS-COV-2 COVID-19 MODERNA 12+ YRS VACCINE 2020-05-30 00:00:[address] [facility] [place] SARS-COV-2 COVID-19 MODERNA 12+ YRS VACCINE 2020-05-30 00:00:[address] [facility] [place] SARS-COV-2 COVID-19 MODERNA 12+ YRS VACCINE 2020-05-30 00:00:[address] [facility] [place] SARS-COV-2 COVID-19 MODERNA 12+ YRS VACCINE 2020-05-30 00:00:[address] [facility] [place] SARS-COV-2 COVID-19 MODERNA 12+ YRS VACCINE 2020-05-30 00:00:[address] [facility] [place] SARS-COV-2 COVID-19 MODERNA 12+ YRS VACCINE 2020-05-30 00:00:[address] [facility] [place] SARS-COV-2 COVID-19 MODERNA 12+ YRS VACCINE 2020-05-30 00:00:[address] [facility] [place] SARS-COV-2 COVID-19 MODERNA 12+ YRS VACCINE 2020-05-30 00:00:[address] [facility] [place] SARS-COV-2 COVID-19 MODERNA 12+ YRS VACCINE 2020-05-30 00:00:[address] [facility] [place] SARS-COV-2 COVID-19 MODERNA 12+ YRS VACCINE 2020-05-30 00:00:[address] [facility] [place] SARS-COV-2 COVID-19 MODERNA 12+ YRS VACCINE 2020-05-30 00:00:[address] [facility] [place] SARS-COV-2 COVID-19 MODERNA 12+ YRS VACCINE 2020-05-30 00:00:[address] [facility] [place] SARS-COV-2 COVID-19 MODERNA 12+ YRS VACCINE 2020-05-30 00:00:[address] [facility] [place] SARS-COV-2 COVID-19 MODERNA 12+ YRS VACCINE 2020-05-30 00:00:[address] [facility] [place] SARS-COV-2 COVID-19 MODERNA 12+ YRS VACCINE 2020-05-30 00:00:[address] [facility] [place] SARS-COV-2 COVID-19 MODERNA 12+ YRS VACCINE 2020-05-30 00:00:[address] [facility] [place] SARS-COV-2 COVID-19 MODERNA 12+ YRS VACCINE 2020-05-30 00:00:[address] [facility] [place] SARS-COV-2 COVID-19 MODERNA 12+ YRS VACCINE 2020-05-30 00:00:[address] [facility] [place] SARS-COV-2 COVID-19 MODERNA 12+ YRS VACCINE 2020-05-30 00:00:[address] [facility] [place] SARS-COV-2 COVID-19 MODERNA 12+ YRS VACCINE 2020-05-30 00:00:[address] [facility] [place] SARS-COV-2 COVID-19 MODERNA 12+ YRS VACCINE 2020-05-30 00:00:[address] [facility] [place] SARS-COV-2 COVID-19 MODERNA 12+ YRS VACCINE 2020-05-30 00:00:[address] [facility] [place] SARS-COV-2 COVID-19 MODERNA 12+ YRS VACCINE 2020-05-30 00:00:[address] [facility] [place] SARS-COV-2 COVID-19 MODERNA 12+ YRS VACCINE 2020-05-30 00:00:[address] [facility] [place] SARS-COV-2 COVID-19 MODERNA 12+ YRS VACCINE 2020-05-30 00:00:[address] [facility] [place] SARS-COV-2 COVID-19 MODERNA 12+ YRS VACCINE 2020-05-30 00:00:[address] [facility] [place] SARS-COV-2 COVID-19 MODERNA 12+ YRS VACCINE 2020-05-30 00:00:[address] [facility] [place] SARS-COV-2 COVID-19 MODERNA 12+ YRS VACCINE 2020-05-30 00:00:[address] [facility] [place] SARS-COV-2 COVID-19 MODERNA 12+ YRS VACCINE 2020-05-30 00:00:[address] [facility] [place] SARS-COV-2 COVID-19 MODERNA 12+ YRS VACCINE 2020-05-30 00:00:[address] [facility] [place] SARS-COV-2 COVID-19 MODERNA 12+ YRS VACCINE 2020-05-30 00:00:[address] [facility] [place] SARS-COV-2 COVID-19 MODERNA 12+ YRS VACCINE 2020-05-30 00:00:[address] [facility] [place] SARS-COV-2 COVID-19 MODERNA 12+ YRS VACCINE 2020-05-30 00:00:[address] [facility] [place] SARS-COV-2 COVID-19 MODERNA 12+ YRS VACCINE 2020-05-30 00:00:[address] [facility] [place] SARS-COV-2 COVID-19 MODERNA 12+ YRS VACCINE 2020-05-30 00:00:[address] [facility] [place] SARS-COV-2 COVID-19 MODERNA 12+ YRS VACCINE 2020-05-30 00:00:[address] [facility] [place] SARS-COV-2 COVID-19 MODERNA 12+ YRS VACCINE 2020-05-30 00:00:[address] [facility] [place] SARS-COV-2 COVID-19 MODERNA 12+ YRS VACCINE 2020-05-30 00:00:[address] [facility] [place] SARS-COV-2 COVID-19 MODERNA 12+ YRS VACCINE 2020-05-30 00:00:[address] [facility] [place] SARS-COV-2 COVID-19 MODERNA 12+ YRS VACCINE 2020-05-30 00:00:[address] [facility] [place] SARS-COV-2 COVID-19 MODERNA 12+ YRS VACCINE 2020-05-30 00:00:[address] [facility] [place] SARS-COV-2 COVID-19 MODERNA 12+ YRS VACCINE 2020-05-30 00:00:[address] [facility] [place] SARS-COV-2 COVID-19 MODERNA 12+ YRS VACCINE 2020-05-30 00:00:[address] [facility] [place] SARS-COV-2 COVID-19 MODERNA 12+ YRS VACCINE 2020-05-30 00:00:[address] [facility] [place] SARS-COV-2 COVID-19 MODERNA 12+ YRS VACCINE 2020-05-30 00:00:[address] [facility] [place] SARS-COV-2 COVID-19 MODERNA 12+ YRS VACCINE 2020-05-30 00:00:[address] [facility] [place] SARS-COV-2 COVID-19 MODERNA 12+ YRS VACCINE 2020-05-30 00:00:[address] [facility] [place] SARS-COV-2 COVID-19 MODERNA 12+ YRS VACCINE 2020-05-30 00:00:[address] [facility] [place] SARS-COV-2 COVID-19 MODERNA 12+ YRS VACCINE 2020-05-30 00:00:[address] [facility] [place] SARS-COV-2 COVID-19 MODERNA 12+ YRS VACCINE 2020-05-30 00:00:[address] [facility] [place] SARS-COV-2 COVID-19 MODERNA 12+ YRS VACCINE 2020-05-30 00:00:[address] [facility] [place] SARS-COV-2 COVID-19 MODERNA 12+ YRS VACCINE 2020-05-30 00:00:[address] [facility] [place] SARS-COV-2 COVID-19 MODERNA 12+ YRS VACCINE 2020-05-30 00:00:[address] [facility] [place] SARS-COV-2 COVID-19 MODERNA 12+ YRS VACCINE 2020-05-30 00:00:[address] [facility] [place] SARS-COV-2 COVID-19 MODERNA 12+ YRS VACCINE 2020-05-30 00:00:[address] [facility] [place] SARS-COV-2 COVID-19 MODERNA 12+ YRS VACCINE 2020-05-30 00:00:[address] [facility] [place] SARS-COV-2 COVID-19 MODERNA 12+ YRS VACCINE 2020-05-30 00:00:[address] [facility] [place] SARS-COV-2 COVID-19 MODERNA 12+ YRS VACCINE 2020-05-30 00:00:[address] [facility] [place] SARS-COV-2 COVID-19 MODERNA 12+ YRS VACCINE 2020-05-30 00:00:[address] [facility] [place] SARS-COV-2 COVID-19 MODERNA 12+ YRS VACCINE 2020-05-30 00:00:[address] [facility] [place] SARS-COV-2 COVID-19 MODERNA 12+ YRS VACCINE 2020-05-30 00:00:[address] [facility] [place] SARS-COV-2 COVID-19 MODERNA 12+ YRS VACCINE Unknown Completed [facility] [place] SARS-COV-2 COVID-19 MODERNA 12+ YRS VACCINE Unknown Completed [facility] [place] HPV9 Unknown Completed [facility] [place] Influenza Virus Vaccine Quad IM, Preserv and ABX Free 6 MO-64 YRS (FLUCELVAX) Unknown Completed [facility] [place] SARS-COV-2 COVID-19 VACCINE - (MODERNA) Unknown Completed [facility] SARS-COV-2 COVID-19 VACCINE - (MODERNA) Unknown Completed [facility] HPV9 Unknown Completed [facility] [place] Rho (d) Immune Globulin Unknown Completed [facility] [place] TDAP Unknown Completed [facility] [place] Rho (d) Immune Globulin Unknown Completed [facility] [place] SARS-COV-2 COVID-19 MODERNA 12+ YRS VACCINE Unknown Completed [facility] [place] SARS-COV-2 COVID-19 MODERNA 12+ YRS VACCINE Unknown Completed [facility] [place] HPV9 Unknown Completed [facility] [place] Influenza Virus Vaccine Quad IM, Preserv and ABX Free 6 MO-64 YRS (FLUCELVAX) Unknown Completed [facility] [place] SARS-COV-2 COVID-19 VACCINE - (MODERNA) Unknown Completed [facility] SARS-COV-2 COVID-19 VACCINE - (MODERNA) Unknown Completed [facility] HPV9 Unknown Completed [facility] [place] Rho (d) Immune Globulin Unknown Completed [facility] [place] TDAP Unknown Completed [facility] [place] Rho (d) Immune Globulin Unknown Completed [facility] [place] Influenza Virus Vaccine Quad IM, Preserv and ABX Free 6 MO-64 YRS (FLUCELVAX) Unknown Completed [facility] [place] SARS-COV-2 COVID-19 MODERNA 12+ YRS VACCINE Unknown Completed [facility] [place] SARS-COV-2 COVID-19 MODERNA 12+ YRS VACCINE Unknown Completed [facility] [place] HPV9 Unknown Completed [facility] [place] Influenza Virus Vaccine Quad IM, Preserv and ABX Free 6 MO-64 YRS (FLUCELVAX) Unknown Completed [facility] [place] SARS-COV-2 COVID-19 VACCINE - (MODERNA) Unknown Completed [facility] SARS-COV-2 COVID-19 VACCINE - (MODERNA) Unknown Completed [facility] HPV9 Unknown Completed [facility] [place] Rho (d) Immune Globulin Unknown Completed [facility] [place] SARS-COV-2 COVID-19 MODERNA 12+ YRS VACCINE Unknown Completed [facility] [place] SARS-COV-2 COVID-19 MODERNA 12+ YRS VACCINE Unknown Completed [facility] [place] HPV9 Unknown Completed [facility] [place] Influenza Virus Vaccine Quad IM, Preserv and ABX Free 6 MO-64 YRS (FLUCELVAX) Unknown Completed [facility] [place] SARS-COV-2 COVID-19 VACCINE - (MODERNA) Unknown Completed [facility] [facility] SARS-COV-2 COVID-19 VACCINE - (MODERNA) Unknown Completed [facility] HPV9 Unknown Completed [facility] [place] [place] Rho (d) Immune Globulin Unknown Completed [facility] [place] [place] SARS-COV-2 COVID-19 MODERNA 12+ YRS VACCINE Unknown Completed [facility] [place] [place] SARS-COV-2 COVID-19 MODERNA 12+ YRS VACCINE Unknown Completed [facility] [place] [place] HPV9 Unknown Completed [facility] [place] Influenza Virus Vaccine Quad IM, Preserv and ABX Free 6 MO-64 YRS (FLUCELVAX) Unknown Completed [facility] [place] [place] SARS-COV-2 COVID-19 VACCINE - (MODERNA) Unknown Completed [facility] SARS-COV-2 COVID-19 VACCINE - (MODERNA) Unknown Completed [facility] HPV9 Unknown Completed [facility] [place] [place] Rho (d) Immune Globulin Unknown Completed [facility] [place] [place] SARS-COV-2 COVID-19 MODERNA 12+ YRS VACCINE Unknown Completed [facility] [place] [place] SARS-COV-2 COVID-19 MODERNA 12+ YRS VACCINE Unknown Completed [facility] [place] [place] HPV9 Unknown Completed [facility] [place] Influenza Virus Vaccine Quad IM, Preserv and ABX Free 6 MO-64 YRS (FLUCELVAX) Unknown Completed [facility] [place] [place] SARS-COV-2 COVID-19 VACCINE - (MODERNA) Unknown Completed [facility] SARS-COV-2 COVID-19 VACCINE - (MODERNA) Unknown Completed [facility] HPV9 Unknown Completed [facility] [place] [place] Rho (d) Immune Globulin Unknown Completed [facility] [place] SARS-COV-2 COVID-19 MODERNA 12+ YRS VACCINE Unknown Completed [facility] [place] [place] SARS-COV-2 COVID-19 MODERNA 12+ YRS VACCINE Unknown Completed [facility] [place] [place] HPV9 Unknown Completed [facility] [place] Influenza Virus Vaccine Quad IM, Preserv and ABX Free 6 MO-64 YRS (FLUCELVAX) Unknown Completed [facility] [place] [place] SARS-COV-2 COVID-19 VACCINE - (MODERNA) Unknown Completed [facility] SARS-COV-2 COVID-19 VACCINE - (MODERNA) Unknown Completed [facility] HPV9 Unknown Completed [facility] [place] [place] Rho (d) Immune Globulin Unknown Completed [facility] [place] SARS-COV-2 COVID-19 MODERNA 12+ YRS VACCINE Unknown Completed [facility] [place] SARS-COV-2 COVID-19 MODERNA 12+ YRS VACCINE Unknown Completed [facility] [place] [place] HPV9 Unknown Completed [facility] [place] Influenza Virus Vaccine Quad IM, Preserv and ABX Free 6 MO-64 YRS (FLUCELVAX) Unknown Completed [facility] [place] SARS-COV-2 COVID-19 VACCINE - (MODERNA) Unknown Completed [facility] SARS-COV-2 COVID-19 VACCINE - (MODERNA) Unknown Completed [facility] HPV9 Unknown Completed [facility] [place] [place] Rho (d) Immune Globulin Unknown Completed [facility] [place] SARS-COV-2 COVID-19 MODERNA 12+ YRS VACCINE Unknown Completed [facility] [place] SARS-COV-2 COVID-19 MODERNA 12+ YRS VACCINE Unknown Completed [facility] [place] [place] HPV9 Unknown Completed [facility] [place] Influenza Virus Vaccine Quad IM, Preserv and ABX Free 6 MO-64 YRS (FLUCELVAX) Unknown Completed [facility] [place] SARS-COV-2 COVID-19 VACCINE - (MODERNA) Unknown Completed [facility] SARS-COV-2 COVID-19 VACCINE - (MODERNA) Unknown Completed [facility] HPV9 Unknown Completed [facility] [place] [place] Rho (d) Immune Globulin Unknown Completed [facility] [place] SARS-COV-2 COVID-19 MODERNA 12+ YRS VACCINE Unknown Completed [facility] [place] SARS-COV-2 COVID-19 MODERNA 12+ YRS VACCINE Unknown Completed [facility] [place] HPV9 Unknown Completed [facility] [place] Influenza Virus Vaccine Quad IM, Preserv and ABX Free 6 MO-64 YRS (FLUCELVAX) Unknown Completed [facility] [place] SARS-COV-2 COVID-19 VACCINE - (MODERNA) Unknown Completed [facility] SARS-COV-2 COVID-19 VACCINE - (MODERNA) Unknown Completed [facility] HPV9 Unknown Completed [facility] [place] [place] Rho (d) Immune Globulin Unknown Completed [facility] [place] SARS-COV-2 COVID-19 MODERNA 12+ YRS VACCINE Unknown Completed [facility] [place] SARS-COV-2 COVID-19 MODERNA 12+ YRS VACCINE Unknown Completed [facility] [place] HPV9 Unknown Completed [facility] [place] Influenza Virus Vaccine Quad IM, Preserv and ABX Free 6 MO-64 YRS (FLUCELVAX) Unknown Completed [facility] [place] [place] SARS-COV-2 COVID-19 VACCINE - (MODERNA) Unknown Completed [facility] SARS-COV-2 COVID-19 VACCINE - (MODERNA) Unknown Completed [facility] HPV9 Unknown Completed [facility] [place] [place] Rho (d) Immune Globulin Unknown Completed [facility] [place] TDAP Unknown Completed [facility] [place] [place] Rho (d) Immune Globulin Unknown Completed [facility] [place] Influenza Virus Vaccine Quad IM, Preserv and ABX Free 6 MO-64 YRS (FLUCELVAX) Unknown Completed [facility] [place] [place] SARS-COV-2 COVID-19 MODERNA 12+ YRS VACCINE Unknown Completed [facility] [place] SARS-COV-2 COVID-19 MODERNA 12+ YRS VACCINE Unknown Completed [facility] [place] HPV9 Unknown Completed [facility] [place] Influenza Virus Vaccine Quad IM, Preserv and ABX Free 6 MO-64 YRS (FLUCELVAX) Unknown Completed [facility] [place] [place] SARS-COV-2 COVID-19 VACCINE - (MODERNA) Unknown Completed [facility] SARS-COV-2 COVID-19 VACCINE - (MODERNA) [facility] Completed [facility] [place] [place] Rho (d) Immune Globulin Unknown Completed [facility] [place] TDAP Unknown Completed [facility] [place] [place] Rho (d) Immune Globulin Unknown Completed [facility] [place] Influenza Virus Vaccine Quad IM, Preserv and ABX Free 6 MO-64 YRS (FLUCELVAX) Unknown Completed [facility] [place] SARS-COV-2 COVID-19 MODERNA 12+ YRS VACCINE Unknown Completed [facility] [place] SARS-COV-2 COVID-19 MODERNA 12+ YRS VACCINE Unknown Completed [facility] [place] HPV9 Unknown Completed [facility] [place] Influenza Virus Vaccine Quad IM, Preserv and ABX Free 6 MO-64 YRS (FLUCELVAX) Unknown Completed [facility] [place] SARS-COV-2 COVID-19 VACCINE - (MODERNA) Unknown Completed [facility] SARS-COV-2 COVID-19 VACCINE - (MODERNA) [facility] Completed [facility] [place] [place] Rho (d) Immune Globulin Unknown Completed [facility] [place] TDAP Unknown Completed [facility] [place] [place] Rho (d) Immune Globulin Unknown Completed [facility] [place] Influenza Virus Vaccine Quad IM, Preserv and ABX Free 6 MO-64 YRS (FLUCELVAX) Unknown Completed [facility] [place] SARS-COV-2 COVID-19 MODERNA 12+ YRS VACCINE Unknown Completed [facility] [place] SARS-COV-2 COVID-19 MODERNA 12+ YRS VACCINE Unknown Completed [facility] [place] HPV9 Unknown Completed [facility] [place] Influenza Virus Vaccine Quad IM, Preserv and ABX Free 6 MO-64 YRS (FLUCELVAX) Unknown Completed [facility] [place] [place] SARS-COV-2 COVID-19 VACCINE - (MODERNA) Unknown Completed [facility] SARS-COV-2 COVID-19 VACCINE - (MODERNA) Unknown Completed [facility] HPV9 Unknown Completed [facility] [place] [place] Rho (d) Immune Globulin Unknown Completed [facility] [place] TDAP Unknown Completed [facility] [place] [place] Rho (d) Immune Globulin Unknown Completed [facility] [place] Influenza Virus Vaccine Quad IM, Preserv and ABX Free 6 MO-64 YRS (FLUCELVAX) Unknown Completed [facility] [place] SARS-COV-2 COVID-19 MODERNA 12+ YRS VACCINE Unknown Completed [facility] [place] SARS-COV-2 COVID-19 MODERNA 12+ YRS VACCINE Unknown Completed [facility] [place] HPV9 Unknown Completed [facility] [place] Influenza Virus Vaccine Quad IM, Preserv and ABX Free 6 MO-64 YRS (FLUCELVAX) Unknown Completed [facility] [place] SARS-COV-2 COVID-19 VACCINE - (MODERNA) Unknown Completed [facility] SARS-COV-2 COVID-19 VACCINE - (MODERNA) [facility] Completed [facility] [place] [place] Rho (d) Immune Globulin Unknown Completed [facility] [place] TDAP Unknown Completed [facility] [place] [place] Rho (d) Immune Globulin Unknown Completed [facility] [place] Influenza Virus Vaccine Quad IM, Preserv and ABX Free 6 MO-64 YRS (FLUCELVAX) Unknown Completed [facility] [place] SARS-COV-2 COVID-19 MODERNA 12+ YRS VACCINE Unknown Completed [facility] [place] SARS-COV-2 COVID-19 MODERNA 12+ YRS VACCINE Unknown Completed [facility] [place] HPV9 Unknown Completed [facility] [place] Influenza Virus Vaccine Quad IM, Preserv and ABX Free 6 MO-64 YRS (FLUCELVAX) Unknown Completed [facility] [place] SARS-COV-2 COVID-19 VACCINE - (MODERNA) Unknown Completed [facility] SARS-COV-2 COVID-19 VACCINE - (MODERNA) Unknown Completed [facility] HPV9 Unknown Completed [facility] [place] [place] Rho (d) Immune Globulin Unknown Completed [facility] [place] TDAP Unknown Completed [facility] [place] Rho (d) Immune Globulin Unknown Completed [facility] [place] Influenza Virus Vaccine Quad IM, Preserv and ABX Free 6 MO-64 YRS (FLUCELVAX) Unknown Completed [facility] [place] SARS-COV-2 COVID-19 MODERNA 12+ YRS VACCINE Unknown Completed [facility] [place] SARS-COV-2 COVID-19 MODERNA 12+ YRS VACCINE Unknown Completed [facility] [place] HPV9 Unknown Completed [facility] [place] Influenza Virus Vaccine Quad IM, Preserv and ABX Free 6 MO-64 YRS (FLUCELVAX) Unknown Completed [facility] [place] SARS-COV-2 COVID-19 VACCINE - (MODERNA) Unknown Completed [facility] SARS-COV-2 COVID-19 VACCINE - (MODERNA) Unknown Completed [facility] HPV9 Unknown Completed [facility] [place] [place] Rho (d) Immune Globulin Unknown Completed [facility] [place] TDAP Unknown Completed [facility] [place] [place] Rho (d) Immune Globulin Unknown Completed [facility] [place] Influenza Virus Vaccine Quad IM, Preserv and ABX Free 6 MO-64 YRS (FLUCELVAX) Unknown Completed [facility] [place] SARS-COV-2 COVID-19 MODERNA 12+ YRS VACCINE Unknown Completed [facility] [place] SARS-COV-2 COVID-19 MODERNA 12+ YRS VACCINE Unknown Completed [facility] [place] HPV9 Unknown Completed [facility] [place] Influenza Virus Vaccine Quad IM, Preserv and ABX Free 6 MO-64 YRS (FLUCELVAX) Unknown Completed [facility] [place] SARS-COV-2 COVID-19 VACCINE - (MODERNA) Unknown Completed [facility] SARS-COV-2 COVID-19 VACCINE - (MODERNA) Unknown Completed [facility] HPV9 Unknown Completed [facility] [place] [place] Rho (d) Immune Globulin Unknown Completed [facility] [place] TDAP Unknown Completed [facility] [place] [place] Rho (d) Immune Globulin Unknown Completed [facility] [place] Influenza Virus Vaccine Quad IM, Preserv and ABX Free 6 MO-64 YRS (FLUCELVAX) Unknown Completed [facility] [place] [place] SARS-COV-2 COVID-19 MODERNA 12+ YRS VACCINE Unknown Completed [facility] [place] SARS-COV-2 COVID-19 MODERNA 12+ YRS VACCINE Unknown Completed [facility] [place] HPV9 Unknown Completed [facility] [place] Influenza Virus Vaccine Quad IM, Preserv and ABX Free 6 MO-64 YRS (FLUCELVAX) Unknown Completed [facility] [place] [place] SARS-COV-2 COVID-19 VACCINE - (MODERNA) Unknown Completed [facility] SARS-COV-2 COVID-19 VACCINE - (MODERNA) Unknown Completed [facility] HPV9 Unknown Completed [facility] [place] [place] Rho (d) Immune Globulin Unknown Completed [facility] [place] TDAP Unknown Completed [facility] [place] [place] Rho (d) Immune Globulin Unknown Completed [facility] [place] Influenza Virus Vaccine Quad IM, Preserv and ABX Free 6 MO-64 YRS (FLUCELVAX) Unknown Completed [facility] [place] [place] SARS-COV-2 COVID-19 MODERNA 12+ YRS VACCINE Unknown Completed [facility] [place] SARS-COV-2 COVID-19 MODERNA 12+ YRS VACCINE Unknown Completed [facility] [place] HPV9 Unknown Completed [facility] [place] Influenza Virus Vaccine Quad IM, Preserv and ABX Free 6 MO-64 YRS (FLUCELVAX) Unknown Completed [facility] [place] [place] SARS-COV-2 COVID-19 VACCINE - (MODERNA) Unknown Completed [facility] SARS-COV-2 COVID-19 VACCINE - (MODERNA) [facility] Completed [facility] [place] [place] Rho (d) Immune Globulin Unknown Completed [facility] [place] TDAP Unknown Completed [facility] [place] [place] Rho (d) Immune Globulin Unknown Completed [facility] [place] Influenza Virus Vaccine Quad IM, Preserv and ABX Free 6 MO-64 YRS (FLUCELVAX) Unknown Completed [facility] [place] SARS-COV-2 COVID-19 MODERNA 12+ YRS VACCINE Unknown Completed [facility] [place] SARS-COV-2 COVID-19 MODERNA 12+ YRS VACCINE Unknown Completed [facility] [place] HPV9 Unknown Completed [facility] [place] Influenza Virus Vaccine Quad IM, Preserv and ABX Free 6 MO-64 YRS (FLUCELVAX) Unknown Completed [facility] [place] [place] SARS-COV-2 COVID-19 VACCINE - (MODERNA) Unknown Completed [facility] SARS-COV-2 COVID-19 VACCINE - (MODERNA) Unknown Completed [facility] HPV9 Unknown Completed [facility] [place] [place] Rho (d) Immune Globulin Unknown Completed [facility] [place] TDAP Unknown Completed [facility] [place] Rho (d) Immune Globulin Unknown Completed [facility] [place] Influenza Virus Vaccine Quad IM, Preserv and ABX Free 6 MO-64 YRS (FLUCELVAX) Unknown Completed [facility] [place] SARS-COV-2 COVID-19 MODERNA 12+ YRS VACCINE Unknown Completed [facility] [place] SARS-COV-2 COVID-19 MODERNA 12+ YRS VACCINE Unknown Completed [facility] [place] HPV9 Unknown Completed [facility] [place] Influenza Virus Vaccine Quad IM, Preserv and ABX Free 6 MO-64 YRS (FLUCELVAX) Unknown Completed [facility] [place] [place] SARS-COV-2 COVID-19 VACCINE - (MODERNA) Unknown Completed [facility] SARS-COV-2 COVID-19 VACCINE - (MODERNA) Unknown Completed [facility] HPV9 Unknown Completed [facility] [place] [place] Rho (d) Immune Globulin Unknown Completed [facility] [place] TDAP Unknown Completed [facility] [place] Rho (d) Immune Globulin Unknown Completed [facility] [place] Influenza Virus Vaccine Quad IM, Preserv and ABX Free 6 MO-64 YRS (FLUCELVAX) Unknown Completed [facility] [place] SARS-COV-2 COVID-19 MODERNA 12+ YRS VACCINE Unknown Completed [facility] [place] SARS-COV-2 COVID-19 MODERNA 12+ YRS VACCINE Unknown Completed [facility] [place] HPV9 Unknown Completed [facility] [place] Influenza Virus Vaccine Quad IM, Preserv and ABX Free 6 MO-64 YRS (FLUCELVAX) Unknown Completed [facility] [place] [place] SARS-COV-2 COVID-19 VACCINE - (MODERNA) Unknown Completed [facility] SARS-COV-2 COVID-19 VACCINE - (MODERNA) Unknown Completed [facility] HPV9 Unknown Completed [facility] [place] [place] Rho (d) Immune Globulin Unknown Completed [facility] [place] TDAP Unknown Completed [facility] [place] Rho (d) Immune Globulin Unknown Completed [facility] [place] Influenza Virus Vaccine Quad IM, Preserv and ABX Free 6 MO-64 YRS (FLUCELVAX) Unknown Completed [facility] [place] [place] SARS-COV-2 COVID-19 MODERNA 12+ YRS VACCINE Unknown Completed [facility] [place] SARS-COV-2 COVID-19 MODERNA 12+ YRS VACCINE Unknown Completed [facility] [place] HPV9 Unknown Completed [facility] [place] Influenza Virus Vaccine Quad IM, Preserv and ABX Free 6 MO-64 YRS (FLUCELVAX) Unknown Completed [facility] [place] [place] SARS-COV-2 COVID-19 VACCINE - (MODERNA) Unknown Completed [facility] SARS-COV-2 COVID-19 VACCINE - (MODERNA) Unknown Completed [facility] HPV9 Unknown Completed [facility] [place] [place] Rho (d) Immune Globulin Unknown Completed [facility] [place] TDAP Unknown Completed [facility] [place] Rho (d) Immune Globulin Unknown Completed [facility] [place] Influenza Virus Vaccine Quad IM, Preserv and ABX Free 6 MO-64 YRS (FLUCELVAX) Unknown Completed [facility] [place] SARS-COV-2 COVID-19 MODERNA 12+ YRS VACCINE Unknown Completed [facility] [place] SARS-COV-2 COVID-19 MODERNA 12+ YRS VACCINE Unknown Completed [facility] [place] HPV9 Unknown Completed [facility] [place] Influenza Virus Vaccine Quad IM, Preserv and ABX Free 6 MO-64 YRS (FLUCELVAX) Unknown Completed [facility] [place] SARS-COV-2 COVID-19 VACCINE - (MODERNA) Unknown Completed [facility] SARS-COV-2 COVID-19 VACCINE - (MODERNA) Unknown Completed [facility] HPV9 Unknown Completed [facility] [place] [place] Rho (d) Immune Globulin Unknown Completed [facility] [place] TDAP Unknown Completed [facility] [place] Rho (d) Immune Globulin Unknown Completed [facility] [place] Influenza Virus Vaccine Quad IM, Preserv and ABX Free 6 MO-64 YRS (FLUCELVAX) Unknown Completed [facility] [place] SARS-COV-2 COVID-19 MODERNA 12+ YRS VACCINE Unknown Completed [facility] [place] SARS-COV-2 COVID-19 MODERNA 12+ YRS VACCINE Unknown Completed [facility] [place] [place] HPV9 Unknown Completed [facility] [place] Influenza Virus Vaccine Quad IM, Preserv and ABX Free 6 MO-64 YRS (FLUCELVAX) Unknown Completed [facility] [place] [place] SARS-COV-2 COVID-19 VACCINE - (MODERNA) Unknown Completed [facility] SARS-COV-2 COVID-19 VACCINE - (MODERNA) Unknown Completed [facility] HPV9 Unknown Completed [facility] [place] [place] Rho (d) Immune Globulin Unknown Completed [facility] [place] TDAP Unknown Completed [facility] [place] Rho (d) Immune Globulin Unknown Completed [facility] [place] Influenza Virus Vaccine Quad IM, Preserv and ABX Free 6 MO-64 YRS (FLUCELVAX) Unknown Completed [facility] [place] [place] SARS-COV-2 COVID-19 MODERNA 12+ YRS VACCINE Unknown Completed [facility] [place] SARS-COV-2 COVID-19 MODERNA 12+ YRS VACCINE Unknown Completed [facility] [place] [place] HPV9 Unknown Completed [facility] [place] Influenza Virus Vaccine Quad IM, Preserv and ABX Free 6 MO-64 YRS (FLUCELVAX) Unknown Completed [facility] [place] SARS-COV-2 COVID-19 VACCINE - (MODERNA) Unknown Completed [facility] SARS-COV-2 COVID-19 VACCINE - (MODERNA) Unknown Completed [facility] HPV9 Unknown Completed [facility] [place] [place] Rho (d) Immune Globulin Unknown Completed [facility] [place] TDAP Unknown Completed [facility] [place] Rho (d) Immune Globulin Unknown Completed [facility] [place] Influenza Virus Vaccine Quad IM, Preserv and ABX Free 6 MO-64 YRS (FLUCELVAX) Unknown Completed [facility] [place] [place] SARS-COV-2 COVID-19 MODERNA 12+ YRS VACCINE Unknown Completed [facility] [place] SARS-COV-2 COVID-19 MODERNA 12+ YRS VACCINE Unknown Completed [facility] [place] HPV9 Unknown Completed [facility] [place] Influenza Virus Vaccine Quad IM, Preserv and ABX Free 6 MO-64 YRS (FLUCELVAX) Unknown Completed [facility] [place] SARS-COV-2 COVID-19 VACCINE - (MODERNA) Unknown Completed [facility] SARS-COV-2 COVID-19 VACCINE - (MODERNA) Unknown Completed [facility] HPV9 Unknown Completed [facility] [place] [place] Rho (d) Immune Globulin Unknown Completed [facility] [place] TDAP Unknown Completed [facility] [place] [place] Rho (d) Immune Globulin Unknown Completed [facility] [place] Influenza Virus Vaccine Quad IM, Preserv and ABX Free 6 MO-64 YRS (FLUCELVAX) Unknown Completed [facility] [place] SARS-COV-2 COVID-19 MODERNA 12+ YRS VACCINE Unknown Completed [facility] [place] SARS-COV-2 COVID-19 MODERNA 12+ YRS VACCINE Unknown Completed [facility] [place] HPV9 Unknown Completed [facility] [place] Influenza Virus Vaccine Quad IM, Preserv and ABX Free 6 MO-64 YRS (FLUCELVAX) Unknown Completed [facility] [place] SARS-COV-2 COVID-19 VACCINE - (MODERNA) Unknown Completed [facility] SARS-COV-2 COVID-19 VACCINE - (MODERNA) Unknown Completed [facility] HPV9 Unknown Completed [facility] [place] [place] Rho (d) Immune Globulin Unknown Completed [facility] [place] TDAP Unknown Completed [facility] [place] Rho (d) Immune Globulin Unknown Completed [facility] [place] Influenza Virus Vaccine Quad IM, Preserv and ABX Free 6 MO-64 YRS (FLUCELVAX) Unknown Completed [facility] [place] SARS-COV-2 COVID-19 MODERNA 12+ YRS VACCINE Unknown Completed [facility] [place] SARS-COV-2 COVID-19 MODERNA 12+ YRS VACCINE Unknown Completed [facility] [place] HPV9 Unknown Completed [facility] [place] Influenza Virus Vaccine Quad IM, Preserv and ABX Free 6 MO-64 YRS (FLUCELVAX) Unknown Completed [facility] [place] SARS-COV-2 COVID-19 VACCINE - (MODERNA) Unknown Completed [facility] SARS-COV-2 COVID-19 VACCINE - (MODERNA) Unknown Completed [facility] HPV9 Unknown Completed [facility] [place] [place] Rho (d) Immune Globulin Unknown Completed [facility] [place] TDAP Unknown Completed [facility] [place] [place] Rho (d) Immune Globulin Unknown Completed [facility] [place] Influenza Virus Vaccine Quad IM, Preserv and ABX Free 6 MO-64 YRS (FLUCELVAX) Unknown Completed [facility] [place] [place] SARS-COV-2 COVID-19 MODERNA 12+ YRS VACCINE Unknown Completed [facility] [place] SARS-COV-2 COVID-19 MODERNA 12+ YRS VACCINE Unknown Completed [facility] [place] HPV9 Unknown Completed [facility] [place] Influenza Virus Vaccine Quad IM, Preserv and ABX Free 6 MO-64 YRS (FLUCELVAX) Unknown Completed [facility] [place] SARS-COV-2 COVID-19 VACCINE - (MODERNA) Unknown Completed [facility] SARS-COV-2 COVID-19 VACCINE - (MODERNA) Unknown Completed [facility] HPV9 Unknown Completed [facility] [place] [place] Rho (d) Immune Globulin Unknown Completed [facility] [place] TDAP Unknown Completed [facility] [place] Rho (d) Immune Globulin Unknown Completed [facility] [place] Influenza Virus Vaccine Quad IM, Preserv and ABX Free 6 MO-64 YRS (FLUCELVAX) Unknown Completed [facility] [place] [place] Rho (d) Immune Globulin Unknown Completed [facility] [place] SARS-COV-2 COVID-19 MODERNA 12+ YRS VACCINE Unknown Completed [facility] [place] SARS-COV-2 COVID-19 MODERNA 12+ YRS VACCINE Unknown Completed [facility] [place] HPV9 Unknown Completed [facility] [place] Influenza Virus Vaccine Quad IM, Preserv and ABX Free 6 MO-64 YRS (FLUCELVAX) Unknown Completed [facility] [place] SARS-COV-2 COVID-19 VACCINE - (MODERNA) Unknown Completed [facility] SARS-COV-2 COVID-19 VACCINE - (MODERNA) Unknown Completed [facility] HPV9 Unknown Completed [facility] [place] [place] Rho (d) Immune Globulin Unknown Completed [facility] [place] TDAP Unknown Completed [facility] [place] Rho (d) Immune Globulin Unknown Completed [facility] [place] Influenza Virus Vaccine Quad IM, Preserv and ABX Free 6 MO-64 YRS (FLUCELVAX) Unknown Completed [facility] [place] SARS-COV-2 COVID-19 MODERNA 12+ YRS VACCINE Unknown Completed [facility] [place] SARS-COV-2 COVID-19 MODERNA 12+ YRS VACCINE Unknown Completed [facility] [place] HPV9 Unknown Completed [facility] [place] Influenza Virus Vaccine Quad IM, Preserv and ABX Free 6 MO-64 YRS (FLUCELVAX) Unknown Completed [facility] [place] SARS-COV-2 COVID-19 VACCINE - (MODERNA) Unknown Completed [facility] SARS-COV-2 COVID-19 VACCINE - (MODERNA) Unknown Completed [facility] HPV9 Unknown Completed [facility] [place] [place] Rho (d) Immune Globulin Unknown Completed [facility] [place] TDAP Unknown Completed [facility] [place] Rho (d) Immune Globulin Unknown Completed [facility] [place] Influenza Virus Vaccine Quad IM, Preserv and ABX Free 6 MO-64 YRS (FLUCELVAX) Unknown Completed [facility] [place] SARS-COV-2 COVID-19 MODERNA 12+ YRS VACCINE Unknown Completed [facility] [place] SARS-COV-2 COVID-19 MODERNA 12+ YRS VACCINE Unknown Completed [facility] [place] HPV9 Unknown Completed [facility] [place] Influenza Virus Vaccine Quad IM, Preserv and ABX Free 6 MO-64 YRS (FLUCELVAX) Unknown Completed [facility] [place] SARS-COV-2 COVID-19 VACCINE - (MODERNA) Unknown Completed [facility] SARS-COV-2 COVID-19 VACCINE - (MODERNA) Unknown Completed [facility] HPV9 Unknown Completed [facility] [place] [place] Rho (d) Immune Globulin Unknown Completed [facility] [place] TDAP Unknown Completed [facility] [place] Rho (d) Immune Globulin Unknown Completed [facility] [place] Influenza Virus Vaccine Quad IM, Preserv and ABX Free 6 MO-64 YRS (FLUCELVAX) Unknown Completed [facility] [place] [place] Rho (d) Immune Globulin Unknown Completed [facility] [place] HPV9 Unknown Completed [facility] [place] SARS-COV-2 COVID-19 MODERNA 12+ YRS VACCINE Unknown Completed [facility] [place] SARS-COV-2 COVID-19 MODERNA 12+ YRS VACCINE Unknown Completed [facility] [place] HPV9 Unknown Completed [facility] [place] Influenza Virus Vaccine Quad IM, Preserv and ABX Free 6 MO-64 YRS (FLUCELVAX) Unknown Completed [facility] [place] SARS-COV-2 COVID-19 VACCINE - (MODERNA) Unknown Completed [facility] SARS-COV-2 COVID-19 VACCINE - (MODERNA) Unknown Completed [facility] HPV9 Unknown Completed [facility] [place] [place] Rho (d) Immune Globulin Unknown Completed [facility] [place] TDAP Unknown Completed [facility] [place] Rho (d) Immune Globulin Unknown Completed [facility] [place] Influenza Virus Vaccine Quad IM, Preserv and ABX Free 6 MO-64 YRS (FLUCELVAX) Unknown Completed [facility] [place] [place] Rho (d) Immune Globulin Unknown Completed [facility] [place] HPV9 Unknown Completed [facility] [place] SARS-COV-2 COVID-19 MODERNA 12+ YRS VACCINE Unknown Completed [facility] [place] SARS-COV-2 COVID-19 MODERNA 12+ YRS VACCINE Unknown Completed [facility] [place] HPV9 Unknown Completed [facility] [place] Influenza Virus Vaccine Quad IM, Preserv and ABX Free 6 MO-64 YRS (FLUCELVAX) Unknown Completed [facility] [place] SARS-COV-2 COVID-19 VACCINE - (MODERNA) Unknown Completed [facility] SARS-COV-2 COVID-19 VACCINE - (MODERNA) Unknown Completed [facility] HPV9 Unknown Completed [facility] [place] [place] Rho (d) Immune Globulin Unknown Completed [facility] [place] TDAP Unknown Completed [facility] [place] Rho (d) Immune Globulin Unknown Completed [facility] [place] Influenza Virus Vaccine Quad IM, Preserv and ABX Free 6 MO-64 YRS (FLUCELVAX) Unknown Completed [facility] [place] [place] Rho (d) Immune Globulin Unknown Completed [facility] [place] HPV9 Unknown Completed [facility] [place] SARS-COV-2 COVID-19 MODERNA 12+ YRS VACCINE Unknown Completed [facility] [place] SARS-COV-2 COVID-19 MODERNA 12+ YRS VACCINE Unknown Completed [facility] [place] HPV9 Unknown Completed [facility] [place] Influenza Virus Vaccine Quad IM, Preserv and ABX Free 6 MO-64 YRS (FLUCELVAX) Unknown Completed [facility] [place] SARS-COV-2 COVID-19 VACCINE - (MODERNA) Unknown Completed [facility] SARS-COV-2 COVID-19 VACCINE - (MODERNA) [facility] Completed [facility] [place] [place] Rho (d) Immune Globulin Unknown Completed [facility] [place] TDAP Unknown Completed [facility] [place] Rho (d) Immune Globulin Unknown Completed [facility] [place] Influenza Virus Vaccine Quad IM, Preserv and ABX Free 6 MO-64 YRS (FLUCELVAX) Unknown Completed [facility] [place] SARS-COV-2 COVID-19 MODERNA 12+ YRS VACCINE Unknown Completed [facility] [place] SARS-COV-2 COVID-19 MODERNA 12+ YRS VACCINE Unknown Completed [facility] [place] HPV9 Unknown Completed [facility] [place] Influenza Virus Vaccine Quad IM, Preserv and ABX Free 6 MO-64 YRS (FLUCELVAX) Unknown Completed [facility] [place] SARS-COV-2 COVID-19 VACCINE - (MODERNA) Unknown Completed [facility] SARS-COV-2 COVID-19 VACCINE - (MODERNA) Unknown Completed [facility] HPV9 Unknown Completed [facility] [place] [place] Rho (d) Immune Globulin Unknown Completed [facility] [place] TDAP Unknown Completed [facility] [place] Rho (d) Immune Globulin Unknown Completed [facility] [place] Influenza Virus Vaccine Quad IM, Preserv and ABX Free 6 MO-64 YRS (FLUCELVAX) Unknown Completed [facility] [place] SARS-COV-2 COVID-19 MODERNA 12+ YRS VACCINE Unknown Completed [facility] [place] SARS-COV-2 COVID-19 MODERNA 12+ YRS VACCINE Unknown Completed [facility] [place] HPV9 Unknown Completed [facility] [place] Influenza Virus Vaccine Quad IM, Preserv and ABX Free 6 MO-64 YRS (FLUCELVAX) Unknown Completed [facility] [place] SARS-COV-2 COVID-19 VACCINE - (MODERNA) Unknown Completed [facility] SARS-COV-2 COVID-19 VACCINE - (MODERNA) [facility] Completed [facility] [place] [place] Rho (d) Immune Globulin Unknown Completed [facility] [place] TDAP Unknown Completed [facility] [place] Rho (d) Immune Globulin Unknown Completed [facility] [place] Influenza Virus Vaccine Quad IM, Preserv and ABX Free 6 MO-64 YRS (FLUCELVAX) Unknown Completed [facility] [place] [place] Rho (d) Immune Globulin Unknown Completed [facility] [place] SARS-COV-2 COVID-19 MODERNA 12+ YRS VACCINE Unknown Completed [facility] [place] SARS-COV-2 COVID-19 MODERNA 12+ YRS VACCINE Unknown Completed [facility] [place] HPV9 Unknown Completed [facility] [place] Influenza Virus Vaccine Quad IM, Preserv and ABX Free 6 MO-64 YRS (FLUCELVAX) Unknown Completed [facility] [place] SARS-COV-2 COVID-19 VACCINE - (MODERNA) Unknown Completed [facility] SARS-COV-2 COVID-19 VACCINE - (MODERNA) Unknown Completed [facility] HPV9 Unknown Completed [facility] [place] [place] Rho (d) Immune Globulin Unknown Completed [facility] [place] TDAP Unknown Completed [facility] [place] Rho (d) Immune Globulin Unknown Completed [facility] [place] Influenza Virus Vaccine Quad IM, Preserv and ABX Free 6 MO-64 YRS (FLUCELVAX) Unknown Completed [facility] [place] [place] Rho (d) Immune Globulin Unknown Completed [facility] [place] HPV9 Unknown Completed [facility] [place] SARS-COV-2 COVID-19 MODERNA 12+ YRS VACCINE Unknown Completed [facility] [place] SARS-COV-2 COVID-19 MODERNA 12+ YRS VACCINE Unknown Completed [facility] [place] HPV9 Unknown Completed [facility] [place] Influenza Virus Vaccine Quad IM, Preserv and ABX Free 6 MO-64 YRS (FLUCELVAX) Unknown Completed [facility] [place] SARS-COV-2 COVID-19 VACCINE - (MODERNA) Unknown Completed [facility] SARS-COV-2 COVID-19 VACCINE - (MODERNA) Unknown Completed [facility] HPV9 Unknown Completed [facility] [place] [place] Rho (d) Immune Globulin Unknown Completed [facility] [place] TDAP Unknown Completed [facility] [place] Rho (d) Immune Globulin Unknown Completed [facility] [place] Influenza Virus Vaccine Quad IM, Preserv and ABX Free 6 MO-64 YRS (FLUCELVAX) Unknown Completed [facility] [place] [place] Rho (d) Immune Globulin Unknown Completed [facility] [place] HPV9 Unknown Completed [facility] [place] SARS-COV-2 COVID-19 MODERNA 12+ YRS VACCINE Unknown Completed [facility] [place] SARS-COV-2 COVID-19 MODERNA 12+ YRS VACCINE Unknown Completed [facility] [place] HPV9 Unknown Completed [facility] [place] Influenza Virus Vaccine Quad IM, Preserv and ABX Free 6 MO-64 YRS (FLUCELVAX) Unknown Completed [facility] [place] SARS-COV-2 COVID-19 VACCINE - (MODERNA) Unknown Completed [facility] SARS-COV-2 COVID-19 VACCINE - (MODERNA) Unknown Completed [facility] HPV9 Unknown Completed [facility] [place] [place] Rho (d) Immune Globulin Unknown Completed [facility] [place] TDAP Unknown Completed [facility] [place] Rho (d) Immune Globulin Unknown Completed [facility] [place] Influenza Virus Vaccine Quad IM, Preserv and ABX Free 6 MO-64 YRS (FLUCELVAX) Unknown Completed [facility] [place] [place] Rho (d) Immune Globulin Unknown Completed [facility] [place] HPV9 Unknown Completed [facility] [place] SARS-COV-2 COVID-19 MODERNA 12+ YRS VACCINE Unknown Completed [facility] [place] SARS-COV-2 COVID-19 MODERNA 12+ YRS VACCINE Unknown Completed [facility] [place] HPV9 Unknown Completed [facility] [place] Influenza Virus Vaccine Quad IM, Preserv and ABX Free 6 MO-64 YRS (FLUCELVAX) Unknown Completed [facility] [place] SARS-COV-2 COVID-19 VACCINE - (MODERNA) Unknown Completed [facility] SARS-COV-2 COVID-19 VACCINE - (MODERNA) Unknown Completed [facility] HPV9 Unknown Completed [facility] [place] [place] Rho (d) Immune Globulin Unknown Completed [facility] [place] TDAP Unknown Completed [facility] [place] Rho (d) Immune Globulin Unknown Completed [facility] [place] Influenza Virus Vaccine Quad IM, Preserv and ABX Free 6 MO-64 YRS (FLUCELVAX) Unknown Completed [facility] [place] [place] Rho (d) Immune Globulin Unknown Completed [facility] [place] HPV9 Unknown Completed [facility] [place] SARS-COV-2 COVID-19 MODERNA 12+ YRS VACCINE Unknown Completed [facility] [place] SARS-COV-2 COVID-19 MODERNA 12+ YRS VACCINE Unknown Completed [facility] [place] HPV9 Unknown Completed [facility] [place] Influenza Virus Vaccine Quad IM, Preserv and ABX Free 6 MO-64 YRS (FLUCELVAX) Unknown Completed [facility] [place] SARS-COV-2 COVID-19 VACCINE - (MODERNA) Unknown Completed [facility] SARS-COV-2 COVID-19 VACCINE - (MODERNA) Unknown Completed [facility] HPV9 Unknown Completed [facility] [place] [place] Rho (d) Immune Globulin Unknown Completed [facility] [place] TDAP Unknown Completed [facility] [place] Rho (d) Immune Globulin Unknown Completed [facility] [place] Influenza Virus Vaccine Quad IM, Preserv and ABX Free 6 MO-64 YRS (FLUCELVAX) Unknown Completed [facility] [place] [place] Rho (d) Immune Globulin Unknown Completed [facility] [place] HPV9 Unknown Completed [facility] [place] SARS-COV-2 COVID-19 MODERNA 12+ YRS VACCINE Unknown Completed [facility] [place] SARS-COV-2 COVID-19 MODERNA 12+ YRS VACCINE Unknown Completed [facility] [place] HPV9 Unknown Completed [facility] [place] Influenza Virus Vaccine Quad IM, Preserv and ABX Free 6 MO-64 YRS (FLUCELVAX) Unknown Completed [facility] [place] [place] SARS-COV-2 COVID-19 VACCINE - (MODERNA) Unknown Completed [facility] [facility] SARS-COV-2 COVID-19 VACCINE - (MODERNA) [facility] Com[facility] [place] [place] Rho (d) Immune Globulin Unknown Completed [facility] [place] [place] TDAP Unknown Completed [facility] [place] [place] Rho (d) Immune Globulin Unknown Completed [facility] [place] [place] Influenza Virus Vaccine Quad IM, Preserv and ABX Free 6 MO-64 YRS (FLUCELVAX) Unknown Completed [facility] [place] [place] Rho (d) Immune Globulin Unknown Completed [facility] [place] [place] HPV9 Unknown Completed [facility] [place] [place] SARS-COV-2 COVID-19 MODERNA 12+ YRS VACCINE Unknown Completed [facility] [place] [place] SARS-COV-2 COVID-19 MODERNA 12+ YRS VACCINE Unknown Completed [facility] [place] [place] HPV9 Unknown Completed [facility] [place] Influenza Virus Vaccine Quad IM, Preserv and ABX Free 6 MO-64 YRS (FLUCELVAX) Unknown Completed [facility] [place] [place] SARS-COV-2 COVID-19 VACCINE - (MODERNA) Unknown [facility] SARS-COV-2 COVID-19 VACCINE - (MODERNA) Unknown Completed [facility] HPV9 Unknown Completed [facility] [place] [place] Rho (d) Immune Globulin Unknown Completed [facility] [place] TDAP Unknown Completed [facility] [place] [place] Rho (d) Immune Globulin Unknown Completed [facility] [place] Influenza Virus Vaccine Quad IM, Preserv and ABX Free 6 MO-64 YRS (FLUCELVAX) Unknown Completed [facility] [place] [place] Rho (d) Immune Globulin Unknown Completed [facility] [place] HPV9 Unknown Completed [facility] [place] SARS-COV-2 COVID-19 MODERNA 12+ YRS VACCINE Unknown Completed [facility] [place] SARS-COV-2 COVID-19 MODERNA 12+ YRS VACCINE Unknown Completed [facility] [place] HPV9 Unknown Completed [facility] [place] Influenza Virus Vaccine Quad IM, Preserv and ABX Free 6 MO-64 YRS (FLUCELVAX) Unknown Completed [facility] [place] [place] SARS-COV-2 COVID-19 VACCINE - (MODERNA) Unknown Completed [facility] SARS-COV-2 COVID-19 VACCINE - (MODERNA) Unknown Completed [facility] HPV9 Unknown Completed [facility] [place] [place] Rho (d) Immune Globulin Unknown Completed [facility] [place] TDAP Unknown Completed [facility] [place] [place] Rho (d) Immune Globulin Unknown Completed [facility] [place] Influenza Virus Vaccine Quad IM, Preserv and ABX Free 6 MO-64 YRS (FLUCELVAX) Unknown Completed [facility] [place] [place] Rho (d) Immune Globulin Unknown Completed [facility] [place] [place] HPV9 Unknown Completed [facility] [place] SARS-COV-2 COVID-19 MODERNA 12+ YRS VACCINE Unknown Completed [facility] [place] SARS-COV-2 COVID-19 MODERNA 12+ YRS VACCINE Unknown Completed [facility] [place] [place] HPV9 Unknown Completed [facility] [place] Influenza Virus Vaccine Quad IM, Preserv and ABX Free 6 MO-64 YRS (FLUCELVAX) Unknown Completed [facility] [place] [place] SARS-COV-2 COVID-19 VACCINE - (MODERNA) Unknown Completed [facility] SARS-COV-2 COVID-19 VACCINE - (MODERNA) Unknown Completed [facility] HPV9 Unknown Completed [facility] [place] [place] Rho (d) Immune Globulin Unknown Completed [facility] [place] TDAP Unknown Completed [facility] [place] [place] Rho (d) Immune Globulin Unknown Completed [facility] [place] Influenza Virus Vaccine Quad IM, Preserv and ABX Free 6 MO-64 YRS (FLUCELVAX) Unknown Completed [facility] [place] [place] Rho (d) Immune Globulin Unknown Completed [facility] [place] HPV9 Unknown Completed [facility] [place] SARS-COV-2 COVID-19 MODERNA 12+ YRS VACCINE Unknown Completed [facility] [place] SARS-COV-2 COVID-19 MODERNA 12+ YRS VACCINE Unknown Completed [facility] [place] HPV9 Unknown Completed [facility] [place] Influenza Virus Vaccine Quad IM, Preserv and ABX Free 6 MO-64 YRS (FLUCELVAX) Unknown Completed [facility] [place] [place] SARS-COV-2 COVID-19 VACCINE - (MODERNA) [facility]-COV-2 COVID-19 VACCINE - (MODERNA) Unknown [facility]pleted [facility] HPV9 Unknown Completed [facility] [place] [place] Rho (d) Immune Globulin Unknown Completed [facility] [place] TDAP Unknown Completed [facility] [place] [place] Rho (d) Immune Globulin Unknown Completed [facility] [place] Influenza Virus Vaccine Quad IM, Preserv and ABX Free 6 MO-64 YRS (FLUCELVAX) Unknown Completed [facility] [place] [place] Rho (d) Immune Globulin Unknown Completed [facility] [place] HPV9 Unknown Completed [facility] [place] SARS-COV-2 COVID-19 MODERNA 12+ YRS VACCINE Unknown Completed [facility] [place] SARS-COV-2 COVID-19 MODERNA 12+ YRS VACCINE Unknown Completed [facility] [place] HPV9 Unknown Completed [facility] [place] Influenza Virus Vaccine Quad IM, Preserv and ABX Free 6 MO-64 YRS (FLUCELVAX) Unknown Completed [facility] [place] [place] SARS-COV-2 COVID-19 VACCINE - (MODERNA) Unknown Completed [facility] SARS-COV-2 COVID-19 VACCINE - (MODERNA) Unknown Completed [facility] HPV9 Unknown Completed [facility] [place] [place] Rho (d) Immune Globulin Unknown Completed [facility] [place] TDAP Unknown Completed [facility] [place] [place] Rho (d) Immune Globulin Unknown Completed [facility] [place] Influenza Virus Vaccine Quad IM, Preserv and ABX Free 6 MO-64 YRS (FLUCELVAX) Unknown Completed [facility] [place] [place] Rho (d) Immune Globulin Unknown Completed [facility] [place] HPV9 Unknown Completed [facility] [place] SARS-COV-2 COVID-19 MODERNA 12+ YRS VACCINE Unknown Completed [facility] [place] SARS-COV-2 COVID-19 MODERNA 12+ YRS VACCINE Unknown Completed [facility] [place] HPV9 Unknown Completed [facility] [place] Influenza Virus Vaccine Quad IM, Preserv and ABX Free 6 MO-64 YRS (FLUCELVAX) Unknown Completed [facility] [place] SARS-COV-2 COVID-19 VACCINE - (MODERNA) Unknown Completed [facility] SARS-COV-2 COVID-19 VACCINE - (MODERNA) Unknown Completed [facility] HPV9 Unknown Completed [facility] [place] [place] Rho (d) Immune Globulin Unknown Completed [facility] [place] TDAP Unknown Completed [facility] [place] [place] Rho (d) Immune Globulin Unknown Completed [facility] [place] Influenza Virus Vaccine Quad IM, Preserv and ABX Free 6 MO-64 YRS (FLUCELVAX) Unknown Completed [facility] [place] [place] Rho (d) Immune Globulin Unknown Completed [facility] [place] HPV9 Unknown Completed [facility] [place] SARS-COV-2 COVID-19 MODERNA 12+ YRS VACCINE Unknown Completed [facility] [place] SARS-COV-2 COVID-19 MODERNA 12+ YRS VACCINE Unknown Completed [facility] [place] HPV9 Unknown Completed [facility] [place] Influenza Virus Vaccine Quad IM, Preserv and ABX Free 6 MO-64 YRS (FLUCELVAX) Unknown Completed [facility] [place] SARS-COV-2 COVID-19 VACCINE - (MODERNA) Unknown Completed [facility] SARS-COV-2 COVID-19 VACCINE - (MODERNA) Unknown Completed [facility] HPV9 Unknown Completed [facility] [place] [place] Rho (d) Immune Globulin Unknown Completed [facility] [place] TDAP Unknown Completed [facility] [place] Rho (d) Immune Globulin Unknown Completed [facility] [place] Influenza Virus Vaccine Quad IM, Preserv and ABX Free 6 MO-64 YRS (FLUCELVAX) Unknown Completed [facility] [place] [place] Rho (d) Immune Globulin Unknown Completed [facility] [place] HPV9 Unknown Completed [facility] [place] SARS-COV-2 COVID-19 MODERNA 12+ YRS VACCINE Unknown Completed [facility] [place] SARS-COV-2 COVID-19 MODERNA 12+ YRS VACCINE Unknown Completed [facility] [place] HPV9 Unknown Completed [facility] [place] Influenza Virus Vaccine Quad IM, Preserv and ABX Free 6 MO-64 YRS (FLUCELVAX) Unknown Completed [facility] [place] SARS-COV-2 COVID-19 VACCINE - (MODERNA) Unknown Completed [facility] SARS-COV-2 COVID-19 VACCINE - (MODERNA) Unknown Completed [facility] HPV9 Unknown Completed [facility] [place] [place] Rho (d) Immune Globulin Unknown Completed [facility] [place] TDAP Unknown Completed [facility] [place] Rho (d) Immune Globulin Unknown Completed [facility] [place] Influenza Virus Vaccine Quad IM, Preserv and ABX Free 6 MO-64 YRS (FLUCELVAX) Unknown Completed [facility] [place] [place] Rho (d) Immune Globulin Unknown Completed [facility] [place] HPV9 Unknown Completed [facility] [place] SARS-COV-2 COVID-19 MODERNA 12+ YRS VACCINE Unknown Completed [facility] [place] SARS-COV-2 COVID-19 MODERNA 12+ YRS VACCINE Unknown Completed [facility] [place] HPV9 Unknown Completed [facility] [place] Influenza Virus Vaccine Quad IM, Preserv and ABX Free 6 MO-64 YRS (FLUCELVAX) Unknown Completed [facility] [place] SARS-COV-2 COVID-19 VACCINE - (MODERNA) Unknown Completed [facility] SARS-COV-2 COVID-19 VACCINE - (MODERNA) Unknown Completed [facility] HPV9 Unknown Completed [facility] [place] [place] Rho (d) Immune Globulin Unknown Completed [facility] [place] TDAP Unknown Completed [facility] [place] [place] Rho (d) Immune Globulin Unknown Completed [facility] [place] Influenza Virus Vaccine Quad IM, Preserv and ABX Free 6 MO-64 YRS (FLUCELVAX) Unknown Completed [facility] [place] [place] Rho (d) Immune Globulin Unknown Completed [facility] [place] [place] HPV9 Unknown Completed [facility] [place] Vital Signs Vital Name Observation Time Observation Value Comments S ource Systolic blood pressure 2023-09-14 20:03:00 113 mm[Hg] [facility] Diastolic blood pressure 2023-09-14 20:03:00 74 mm[Hg] [facility] Heart rate 2023-09-14 20:03:00 76 /min [facility] Body temperature 2023-09-14 20:03:[address] [facility] [place] Respiratory rate 2023-09-14 20:03:00 16 /min [facility] [place] [place] Body height 2023-09-14 20:03:00 162.6 cm [facility] Body weight 2023-09-14 20:03:00 86.637 kg [facility] BMI 2023-09-14 20:03:00 32.79 kg/m2 [facility] Systolic blood pressure 2023-09-04 00:18:00 129 mm[Hg] [facility] Diastolic blood pressure 2023-09-04 00:18:00 78 mm[Hg] [facility] Heart rate 2023-09-04 00:18:00 84 /min [facility] Body temperature 2023-09-04 00:18:[address] [facility] [place] [place] Respiratory rate 2023-09-04 00:18:00 18 /min [facility] [place] [place] Body height 2023-09-04 00:18:00 162.6 cm [facility] Body weight 2023-09-04 00:18:00 79.379 kg [facility] BMI 2023-09-04 00:18:00 30.04 kg/m2 [facility] Oxygen saturation in Arterial blood by Pulse oximetry 2023-09-04 00:18:00 100 /min [facility] Systolic blood pressure 2023-09-03 17:48:00 115 mm[Hg] [facility] Diastolic blood pressure 2023-09-03 17:48:00 77 mm[Hg] [facility] Heart rate 2023-09-03 17:48:00 84 /min [facility] Body temperature 2023-09-03 17:48:[address] [facility] [place] [place] Respiratory rate 2023-09-03 17:48:00 18 /min [facility] [place] [place] Oxygen saturation in Arterial blood by Pulse oximetry 2023-09-03 17:48:00 100 /min [facility] Systolic blood pressure 2023-08-17 14:56:00 112 mm[Hg] [facility] Diastolic blood pressure 2023-08-17 14:56:00 72 mm[Hg] [facility] Heart rate 2023-08-17 14:56:00 99 /min [facility] Respiratory rate 2023-08-17 14:56:00 18 /min [facility] [place] [place] Body height 2023-08-17 14:56:00 160 cm [facility] Body weight 2023-08-17 14:56:00 85.276 kg [facility] BMI 2023-08-17 14:56:00 33.30 kg/m2 [facility] Systolic blood pressure 2023-03-30 20:41:00 115 mm[Hg] Ani Barneso [facility] - External Diastolic blood pressure 2023-03-30 20:41:00 80 mm[Hg] [facility] - External Heart rate 2023-03-30 20:41:00 70 /min Kel y Seybold - External Body temperature 2023-03-30 20:41:00 36.22 Tiffanie Ani Garrisonybold - External Body height 2023-03-30 20:41:00 162.6 cm Jolanta puente Seybold - External Body weight 2023-03-30 20:41:00 77.565 kg Jolanta puente Seybold - External BMI 2023-03-30 20:41:00 29.35 kg/m2 Jolanta puente Seybold - External Oxygen saturation in Arterial blood by Pulse oximetry 2023-03-30 20:41:00 97 /min Ani Almeida ld - External Systolic blood pressure 2023-03-26 19:44:00 131 mm[Hg] [facility] Diastolic blood pressure 2023-03-26 19:44:00 85 mm[Hg] [facility] Heart rate 2023-03-26 19:44:00 74 /min [facility] Body temperature 2023-03-26 19:44:[address] [facility] [place] Respiratory rate 2023-03-26 19:44:00 18 /min [facility] [place] [place] Body height 2023-03-26 19:44:00 160 cm [facility] Body weight 2023-03-26 19:44:00 80.015 kg [facility] BMI 2023-03-26 19:44:00 31.25 kg/m2 [facility] Systolic blood pressure 2023-03-07 13:31:00 120 mm[Hg] [facility] Diastolic blood pressure 2023-03-07 13:31:00 78 mm[Hg] [facility] Heart rate 2023-03-07 13:31:00 77 /min [facility] Body temperature 2023-03-07 13:31:[address] [facility] [place] [place] Respiratory rate 2023-03-07 13:31:00 18 /min [facility] [place] [place] Oxygen saturation in Arterial blood by Pulse oximetry 2023-03-07 13:31:00 97 /min [facility] Body height 2023-03-05 17:16:00 160 cm [facility] Body weight 2023-03-05 17:16:00 92.987 kg [facility] BMI 2023-03-05 17:16:00 36.31 kg/m2 [facility] Systolic blood pressure 2023-02-20 15:02:00 131 mm[Hg] [facility] Diastolic blood pressure 2023-02-20 15:02:00 83 mm[Hg] [facility] Heart rate 2023-02-20 15:02:00 95 /min [facility] Body temperature 2023-02-20 15:02:[address] [facility] [place] Respiratory rate 2023-02-20 15:02:00 18 /min [facility] [place] [place] Body height 2023-02-20 15:02:00 160 cm [facility] Body weight 2023-02-20 15:02:00 91.445 kg [facility] BMI 2023-02-20 15:02:00 35.71 kg/m2 [facility] Heart rate 2023-02-16 21:16:00 71 /min [facility] Oxygen saturation in Arterial blood by Pulse oximetry 2023-02-16 21:16:00 100 /min [facility] Systolic blood pressure 2023-02-16 20:30:00 97 mm[Hg] [facility] Diastolic blood pressure 2023-02-16 20:30:00 51 mm[Hg] [facility] Body temperature 2023-02-16 19:18:[address] [facility] [place] [place] Respiratory rate 2023-02-16 19:18:00 18 /min [facility] [place] [place] Body height 2023-02-16 19:18:00 160 cm [facility] Body weight 2023-02-16 19:18:00 91.627 kg [facility] BMI 2023-02-16 19:18:00 35.78 kg/m2 [facility] Systolic blood pressure 2023-02-13 15:58:00 113 mm[Hg] [facility] Diastolic blood pressure 2023-02-13 15:58:00 72 mm[Hg] [facility] Heart rate 2023-02-13 15:58:00 81 /[facility] 2023-02-13 15:58:[address] [facility] [place] [place] Respiratory rate 2023-02-13 15:58:00 17 /min [facility] [place] [place] Body height 2023-02-13 15:58:00 165.1 cm [facility] Body weight 2023-02-13 15:58:00 91.853 kg [facility] BMI 2023-02-13 15:58:00 33.70 kg/m2 [facility] Systolic blood pressure 2023-02-05 20:57:00 130 mm[Hg] [facility] Diastolic blood pressure 2023-02-05 20:57:00 78 mm[Hg] [facility] Heart rate 2023-02-05 20:57:00 100 /min [facility] Body temperature 2023-02-05 20:57:[address] [facility] [place] Respiratory rate 2023-02-05 20:57:00 18 /min [facility] [place] [place] Body height 2023-02-05 20:57:00 165.1 cm [facility] Body weight 2023-02-05 20:57:00 91.808 kg [facility] BMI 2023-02-05 20:57:00 33.68 kg/m2 [facility] Systolic blood pressure 2023-01-23 18:24:00 121 mm[Hg] [facility] Diastolic blood pressure 2023-01-23 18:24:00 67 mm[Hg] [facility] Heart rate 2023-01-23 18:24:00 91 /min [facility] Body temperature 2023-01-23 18:24:[address] [facility] [place] Respiratory rate 2023-01-23 18:24:00 18 /min [facility] [place] [place] Body height 2023-01-23 18:24:00 [facility] cm [facility] 2023-01-23 18:24:00 90.992 [facility] 2023-01-23 18:24:00 33.38 kg/m2 [facility] Systolic blood pressure 2023-01-10 14:37:00 120 mm[Hg] [facility] Diastolic blood pressure 2023-01-10 14:37:00 61 mm[Hg] [facility] Heart rate 2023-01-10 14:37:00 95 /min [facility] Body [facility] 2023-01-10 14:37:[address] [facility] [place] [place] Respiratory rate 2023-01-10 14:37:00 17 /min [facility] [place] [place] Body height 2023-01-10 14:37:00 165.1 cm [facility] Body weight 2023-01-10 14:37:00 91.082 kg [facility] BMI 2023-01-10 14:37:00 33.41 kg/m2 [facility] Systolic blood pressure 2022-12-21 14:21:00 103 mm[Hg] [facility] Diastolic blood pressure 2022-12-21 14:21:00 58 mm[Hg] [facility] Heart rate 2022-12-21 14:21:00 80 /min [facility] Body [facility] 2022-12-21 14:21:[address] [facility] [place] [place] Respiratory rate 2022-12-21 14:21:00 20 /min [facility] [place] [place] Body height 2022-12-21 14:21:00 165.1 cm [facility] Body weight 2022-12-21 14:21:00 88.86 kg [facility] BMI 2022-12-21 14:21:00 32.60 kg/m2 [facility] Systolic blood pressure 2022-12-12 19:09:00 110 mm[Hg] [facility] Diastolic blood pressure 2022-12-12 19:09:00 62 mm[Hg] [facility] Heart rate 2022-12-12 19:09:00 84 /min [facility] Body temperature 2022-12-12 19:09:[address] [facility] [place] [place] Respiratory rate 2022-12-12 19:09:00 18 /min [facility] [place] [place] Body height 2022-12-12 19:09:00 165.1 cm [facility] Body weight 2022-12-12 19:09:00 88.587 kg [facility] BMI 2022-12-12 19:09:00 32.50 kg/m2 [facility] Systolic blood pressure 2022-12-07 15:05:00 120 mm[Hg] [facility] Diastolic blood pressure 2022-12-07 15:05:00 64 mm[Hg] [facility] Heart rate 2022-12-07 15:05:00 85 /min [facility] Body temperature 2022-12-07 15:05:[address] [facility] [place] [place] Respiratory rate 2022-12-07 15:05:00 20 /min [facility] [place] [place] Body height 2022-12-07 15:05:00 165.1 cm [facility] Body weight 2022-12-07 15:05:00 89.585 kg [facility] BMI 2022-12-07 15:05:00 32.87 kg/m2 [facility] Systolic blood pressure 2022-11-16 14:49:00 126 mm[Hg] [facility] Diastolic blood pressure 2022-11-16 14:49:00 67 mm[Hg] [facility] Heart rate 2022-11-16 14:49:00 91 /min [facility] Body temperature 2022-11-16 14:49:[address] [facility] [place] [place] Respiratory rate 2022-11-16 14:49:00 18 /min [facility] [place] [place] Body height 2022-11-16 14:49:00 165.1 cm [facility] Body weight 2022-11-16 14:49:00 86.546 kg [facility] BMI 2022-11-16 14:49:00 31.75 kg/m2 [facility] Systolic blood pressure 2022-10-26 20:50:00 114 mm[Hg] [facility] Diastolic blood pressure 2022-10-26 20:50:00 62 mm[Hg] [facility] Heart rate 2022-10-26 20:50:00 75 /min [facility] Body temperature 2022-10-26 20:50:[address] [facility] [place] [place] Respiratory rate 2022-10-26 20:50:00 18 /min [facility] [place] [place] Body height 2022-10-26 20:50:00 165.1 cm [facility] Body weight 2022-10-26 20:50:00 86.093 [facility] BMI 2022-10-26 20:50:00 31.58 kg/m2 [facility] Systolic blood pressure 2022-09-18 20:35:00 124 mm[Hg] [facility] Diastolic blood pressure 2022-09-18 20:35:00 71 mm[Hg] [facility] Heart rate 2022-09-18 20:35:00 78 /min [facility] Body temperature 2022-09-18 20:35:[address] [facility] [place] [place] Respiratory rate 2022-09-18 20:35:00 18 /min [facility] [place] [place] Body height 2022-09-18 20:35:00 165.1 cm [facility] Body weight 2022-09-18 20:35:00 79.465 kg [facility] BMI 2022-09-18 20:35:00 29.15 kg/m2 [facility] Systolic blood pressure 2022-08-21 20:20:00 115 mm[Hg] [facility] Diastolic blood pressure 2022-08-21 20:20:00 66 mm[Hg] [facility] Heart rate 2022-08-21 20:20:00 80 /min [facility] Body temperature 2022-08-21 20:20:[address] [facility] [place] [place] Respiratory rate 2022-08-21 20:20:00 18 /min [facility] [place] [place] Body height 2022-08-21 20:20:00 165.1 cm [facility] Body weight 2022-08-21 20:20:00 77.701 kg [facility] BMI 2022-08-21 20:20:00 28.51 kg/m2 [facility] Systolic blood pressure 2022-07-24 18:20:00 120 mm[Hg] [facility] Diastolic blood pressure 2022-07-24 18:20:00 66 mm[Hg] [facility] Heart rate 2022-07-24 18:20:00 60 /min [facility] Body temperature 2022-07-24 18:20:[address] [facility] [place] [place] Respiratory rate 2022-07-24 18:20:00 18 /min [facility] [place] [place] Body height 2022-07-24 18:20:00 165.1 cm [facility] Body weight 2022-07-24 18:20:00 77.021 kg [facility] BMI 2022-07-24 18:20:00 28.26 kg/m2 [facility] Systolic blood pressure 2022-04-11 22:15:00 120 mm[Hg] [facility] Diastolic blood pressure 2022-04-11 22:15:00 73 mm[Hg] [facility] Heart rate 2022-04-11 22:15:00 68 /min [facility] Body height 2022-04-11 22:15:00 167.6 cm [facility] Body weight 2022-04-11 22:15:00 81.647 kg [facility] BMI 2022-04-11 22:15:00 29.05 kg/m2 [facility] Oxygen saturation in Arterial blood by Pulse oximetry 2022-04-11 22:15:00 99 /min [facility] Systolic blood pressure 2022-03-28 21:22:00 116 mm[Hg] [facility] Diastolic blood pressure 2022-03-28 21:22:00 71 mm[Hg] [facility] Heart rate 2022-03-28 21:22:00 70 /min [facility] Body temperature 2022-03-28 21:22:[address] [facility] [place] [place] Respiratory rate 2022-03-28 21:22:00 16 /min [facility] [place] [place] Body height 2022-03-28 21:22:00 162.6 cm [facility] Body weight 2022-03-28 21:22:00 77.656 kg [facility] BMI 2022-03-28 21:22:00 29.39 kg/m2 [facility] Oxygen saturation in Arterial blood by Pulse oximetry 2022-03-28 21:22:00 99 /min [facility] Systolic blood pressure 2022-03-27 16:40:00 116 mm[Hg] [facility] Diastolic blood pressure 2022-03-27 16:40:00 69 mm[Hg] [facility] Heart rate 2022-03-27 16:40:00 74 /min [facility] Body temperature 2022-03-27 16:40:[address] [facility] [place] [place] Respiratory rate 2022-03-27 16:40:00 18 /min [facility] [place] [place] Body height 2022-03-27 16:40:00 162.6 cm [facility] Body weight 2022-03-27 16:40:00 77.565 kg [facility] BMI 2022-03-27 16:40:00 29.35 kg/m2 [facility] Systolic blood pressure 2022-03-24 00:54:08 122 mm[Hg] [facility] Diastolic blood pressure 2022-03-24 00:54:08 77 mm[Hg] [facility] Heart rate 2022-03-24 00:54:08 85 /min [facility] Body temperature 2022-03-24 00:54:[address] [facility] [place] [place] Respiratory rate 2022-03-24 00:54:08 18 /min [facility] [place] [place] Oxygen saturation in Arterial blood by Pulse oximetry 2022-03-24 00:54:08 100 /min [facility] Body weight 2022-03-23 19:30:00 81.647 kg [facility] BMI 2022-03-23 19:30:00 29.95 kg/m2 [facility] Systolic blood pressure 2022-03-23 18:51:00 112 mm[Hg] [facility] Diastolic blood pressure 2022-03-23 18:51:00 70 mm[Hg] [facility] Heart rate 2022-03-23 18:51:00 2 /min [facility] Body temperature 2022-03-23 18:51:[address] [facility] [place] [place] Respiratory rate 2022-03-23 18:51:00 17 /min [facility] [place] [place] Body weight 2022-03-23 18:51:00 72.576 kg [facility] BMI 2022-03-23 18:51:00 26.63 kg/m2 [facility] Oxygen saturation in Arterial blood by Pulse oximetry 2022-03-23 18:51:00 100 /min [facility] Systolic blood pressure 2022-03-15 20:07:00 108 mm[Hg] [facility] Diastolic blood pressure 2022-03-15 20:07:00 69 mm[Hg] [facility] Heart rate 2022-03-15 20:07:00 73 /min [facility] Body temperature 2022-03-15 20:07:[address] [facility] [place] [place] Respiratory rate 2022-03-15 20:07:00 18 /min [facility] [place] [place] Body height 2022-03-15 20:07:00 165.1 cm [facility] Body weight 2022-03-15 20:07:00 78.019 kg [facility] BMI 2022-03-15 20:07:00 28.62 kg/m2 [facility] Systolic blood pressure 2022-02-22 21:55:00 117 mm[Hg] [facility] Diastolic blood pressure 2022-02-22 21:55:00 71 mm[Hg] [facility] Heart rate 2022-02-22 21:55:00 69 /min [facility] Body temperature 2022-02-22 21:55:[address] [facility] [place] [place] Respiratory rate 2022-02-22 21:55:00 18 /min [facility] [place] [place] Body height 2022-02-22 21:55:00 165.1 cm [facility] Body weight 2022-02-22 21:55:00 77.111 kg [facility] BMI 2022-02-22 21:55:00 28.29 kg/m2 [facility] Systolic blood pressure 2022-01-24 20:48:00 113 mm[Hg] [facility] Diastolic blood pressure 2022-01-24 20:48:00 69 mm[Hg] [facility] Heart rate 2022-01-24 20:48:00 74 /min [facility] Body temperature 2022-01-24 20:48:[address] [facility] [place] Respiratory rate 2022-01-24 20:48:00 18 /min [facility] [place] [place] Body height 2022-01-24 20:48:00 165.1 cm [facility] Body weight 2022-01-24 20:48:00 75.751 kg [facility] BMI 2022-01-24 20:48:00 27.79 kg/m2 [facility] Systolic blood pressure 2022-01-06 18:28:00 110 mm[Hg] [facility] Diastolic blood pressure 2022-01-06 18:28:00 69 mm[Hg] [facility] Heart rate 2022-01-06 18:28:00 74 /min [facility] Body temperature 2022-01-06 18:28:[address] [facility] [place] [place] Respiratory rate 2022-01-06 18:28:00 18 /min [facility] [place] [place] Body height 2022-01-06 18:28:00 160 cm [facility] Body weight 2022-01-06 18:28:00 75.841 kg [facility] BMI 2022-01-06 18:28:00 29.62 kg/m2 [facility] Systolic blood pressure 2021-12-30 15:10:00 116 mm[Hg] [facility] Diastolic blood pressure 2021-12-30 15:10:00 79 mm[Hg] [facility] Heart rate 2021-12-30 15:10:00 78 /min [facility] Body temperature 2021-12-30 15:10:[address] [facility] [place] [place] Respiratory rate 2021-12-30 15:10:00 18 /min [facility] [place] [place] Body height 2021-12-30 15:10:00 160 cm [facility] Body weight 2021-12-30 15:10:00 75.841 kg [facility] BMI 2021-12-30 15:10:00 29.62 kg/m2 [facility] Procedures Procedure Date / Time Performed Performing Clinician Source POCT URINALYSIS W/O SPECIFIC GRAVITY 2023-09-14 00:00:[address] [facility] [place] [place] <14 WEEKS US LIMITED 2023-08-17 19:13:13 Pasquale Paula [facility] POCT TEST 2023-08-17 00:00:[address] [facility] [place] [place] GARDASIL 9 (HPV 9V) VACCINE 2023-03-26 19:57:[address] [facility] [place] [place] CREATININE 2023-03-06 23:43:00 Rustam [facility] CBC WITH DIFF 2023-03-06 10:15:00 [facility] HB -MATERNAL HEMORRHAGE SCREEN 2023-03-06 10:15:[address] [facility] [place] [place] VENOUS CORD GAS 2023-03-06 02:21:00 [facility] 2023-03-05 20:52:[address] [facility] [place] [place] CBC WITH DIFF 2023-03-05 17:35:[address] [facility] HEPATITIS B SURFACE ANTIGEN 2023-03-05 17:35:[address] [facility] [place] [place] ANTI-D R/O PANEL 2023-03-05 17:35:00 Rustam Yu Un [facility] HB ABO GROUPING 2023-03-05 17:35:00 Viji Cevallos U [facility] RHO (D) IMMUNE GLOBULIN 2023-03-05 17:35:[address] [facility] [place] [place] SYPHILIS IGG/IGM 2023-03-05 17:35:[address] [facility] [place] [place] POCT URINALYSIS 2023-02-20 15:06:[address] [facility] [place] [place] ADC ONLY - FERN TEST 2023-02-16 21:02:[address] [facility] [place] [place] EXTRA TUBE URINE 2023-02-16 19:37:00 Adum, Rosibel Johnson [facility] ASSIGNMENT OF BENEFITS 2023-02-16 18:55:24 Dockaterina r Unassigned, [place] [facility] [place] CONSENT/REFUSAL FOR DIAGNOSIS AND TREATMENT 2023-02-16 18:51:28 Doctor Unassigned, [place] [facility] [place] DME/SUPPLY JUSTIFICATION 2023-02-13 05:01:00 Doc juana Unassigned, [place] [facility] [place] [place] POCT URINALYSIS 2023-02-13 00:00:[address] [facility] [place] [place] POCT URINALYSIS 2023-02-05 20:59:[address] [facility] [place] POCT URINALYSIS 2023-01-23 18:27:[address] [facility] [place] FLU VACC ([id number]), 6 MO-64 YRS, .5ML, IM, QUAD (FLUCELVAX) 2023-01-10 15:20:[address] [facility] [place] ASSIGNMENT OF BENEFITS 2023-01-10 14:19:55 Dockaterina r Unassigned, [place] [facility] [place] [place] POCT URINALYSIS 2023-01-10 00:00:[address] [facility] [place] [place] HB ABO GROUPING 2022-12-21 15:25:[address] [facility] [place] SYPHILIS IGG/IGM 2022-12-21 15:25:[address] [facility] [place] TDAP VACCINE, >11 YRS, IM 2022-12-21 14:48:[address] [facility] [place] [place] POCT URINALYSIS 2022-12-21 00:00:[address] [facility] [place] SECOND AND THIRD TRIMESTER ULTRASOUND 2022-12-12 20:43:[address] [facility] [place] POCT URINALYSIS 2022-12-12 19:12:[address] [facility] [place] POCT URINALYSIS 2022-12-07 00:00:[address] [facility] [place] POCT URINALYSIS 2022-11-16 14:50:[address] [facility] [place] MISCELLANEOUS SENDOUT TEST 2022-11-10 05:01:00 Doctor Unassigned, [place] [facility] [place] SECOND AND THIRD TRIMESTER ULTRASOUND 2022-10-31 20:25:[address] [facility] [place] [place] SECOND AND THIRD TRIMESTER ULTRASOUND 2022-10-31 20:20:[address] [facility] [place] [place] POCT URINALYSIS 2022-10-26 20:52:[address] [facility] [place] POCT URINALYSIS 2022-09-18 20:36:[address] [facility] [place] [place] POCT URINALYSIS 2022-08-21 20:21:[address] [facility] [place] FLU VACC ([id number]), 6 MO-64 YRS, .5ML, IM, QUAD (FLUCELVAX) 2022-07-24 19:22:[address] [facility] [place] [place] POCT URINALYSIS W/O SPECIFIC GRAVITY 2022-07-24 18:12:[address] [facility] [place] [place] POCT TEST 2022-07-24 18:11:[address] [facility] [place] [place] REPORT OF 2022-07-24 05:01:00 Doctor Cliff banerjee, [place] [facility] [place] ASSIGNMENT OF BENEFITS 2022-07-10 14:33:07 Docto r Unassigned, [place] [facility] OB TRANSVAGINAL 2022-03-28 22:39:19 Adum, Rosibel Johnson [facility] [place] [place] GARDASIL 9 (HPV 9V) VACCINE 2022-03-28 22:12:39 Adum, Rosibel Johnson [facility] [place] [place] EVENT COORDINATOR CLINIC ULTRASOUND 2022-03-28 06:01:00 Doc tor Unassigned, [place] [facility] [place] PHYSICIAN ORDERS 2022-03-27 06:01:00 Doctor Carrington signed, [place] [facility] FIRST TRIMESTER LESS THAN 14 WEEKS WITH TRANSVAGINAL 2022-03-24 20:40:[address] [facility] [place] [place] CT CHEST PULMONARY ANGIOGRAM 2022-03-23 22:38:[address] [facility] [place] [place] D-DIMER 2022-03-23 20:59:00 Susan Martinez [facility] MAGNESIUM 2022-03-23 20:20:00 Susan Martinez [facility] TROPONIN I 2022-03-23 20:20:00 Susan Martinez [facility] COMP. METABOLIC PANEL ([id number]) 2022-03-23 20:20:[address] [facility] [place] [place] CBC WITH DIFF 2022-03-23 20:20:00 Susan Martinez [facility] URINALYSIS 2022-03-23 20:20:00 Susan Martinez [facility] N-TERMINAL PRO-BNP 2022-03-23 20:20:[address] [facility] [place] CONSENT/REFUSAL FOR DIAGNOSIS AND TREATMENT 2022-03-23 19:04:36 Doctor Unassigned, [place] [facility] [place] POCT URINALYSIS W/O SPECIFIC GRAVITY 2022-03-15 20:09:00 Amena Betancourt [facility] FIRST TRIMESTER LESS THAN 14 WEEKS WITH TRANSVAGINAL 2022-03-03 20:49:[address] [facility] [place] [place] GC & CHLAMYDIA AMPLIFIED ASSAY 2022-02-22 22:34:00 Asia [facility] TRICHOMONAS AMPLIFIED ASSAY 2022-02-22 22:34:00 [facility] VACC ([id number]), 6 MO-64 YRS, .5ML, IM, QUAD (FLUCELVAX) 2022-02-22 22:18:[address] [facility] [place] [place] POCT URINALYSIS W/O SPECIFIC GRAVITY 2022-02-22 00:00:[address] [facility] [place] [place] ASSIGNMENT OF BENEFITS 2022-02-18 14:49:18 Docto r Unassigned, [place] [facility] [place] POCT TEST 2022-01-06 18:43:00 Jareth Olmedo [facility] GARDASIL 9 (HPV 9V) VACCINE 2021-12-30 16:46:[address] [facility] [place] [place] POCT TEST 2021-12-30 15:29:00 Jareth Olmedo [facility] Encounters Start Date/Time End Date/Time Encounter Type Admission Type Attending Clinicians Care Facility Care Department Encounter ID Source 2021-07-09 00:38:59 Outpatient [id number] [facility] 2023-10-12 14:45:00 2023-10-12 14:45:00 Outpatient PASQUALE ARREGUIN [facility] [id number] [facility] 2023-09-03 00:00:00 2023-10-06 18:21:56 Patient Secure MsPasquale Bruce [facility] 1.2.840.114 350.1.13.10 4.2.7.2.686 [id number] [facility] 2023-09-26 00:00:00 2023-09-26 07:04:23 Case Management Pasquale Paula [facility] BUILDING 1.84.114 350.1.13.10 4.2.7.2.686 [id number] [facility] 2023-09-25 11:30:00 2023-09-25 16:33:09 Outpatient SWAPNIL GONG [facility] [id number] [facility] 2023-09-25 11:30:00 2023-09-25 11:45:00 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 Ezequiel[facility] 1.840.114 350.1.13.10 4.2.7.2.686 [id number] [facility] 2023-09-25 00:00:00 2023-09-25 07:39:48 Case Management Pasquale Paula [facility] BUILDING 1.840.114 350.1.13.10 4.2.7.2.686 [id number] [facility] 2023-09-21 16:15:00 2023-09-21 16:30:00 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 Pob, Adc Lab Main Pasquale Paula [facility] BUILDING 1.84.114 350.1.13.10 4.2.7.2.686 [id number] [facility] 2023-09-21 16:15:00 2023-09-21 16:15:00 Outpatient R PAULAPASQUALE [facility] [id number] [facility] 2023-08-15 00:00:00 2023-09-15 18:05:25 Patient Secure Rosibel Isaac [facility] 1..114 350.1.13.10 4.2.7.2.686 [id number] [facility] 2023-09-14 15:00:00 2023-09-14 15:17:22 Outpatient R PASQUALE PAULA [facility] [id number] [facility] 2023-09-14 15:00:00 2023-09-14 15:17:22 Routine Visit Pasquale Paula [facility] 1.2.840.114 350.1.13.10 4.2.7.2.686 [id number] [facility] 2023-09-05 00:00:00 2023-09-06 09:11:04 Telephone Pasquale Paula [facility] 1.840.114 350.1.13.10 4.2.7.2.686 [id number] [facility] 2023-09-03 19:22:00 2023-09-03 19:45:00 Emergency X NADEEN DAVIS [facility] ERT [id number] [facility] 2023-09-03 19:22:00 2023-09-03 19:45:00 Emergency Nadeen Davis [facility] 1.840.114 350.1.13.10 4.2.7.2.686 [id number] [facility] 2023-09-03 12:30:00 2023-09-03 12:50:00 Nurse Visit Nurse, [facility] Unknown, Attending [facility] 1..114 350.1.13.10 4.2.7.2.686 [id number] [facility] 2023-09-03 12:30:00 2023-09-03 12:30:00 Outpatient R SAGAR GONZALEZ [facility] [id number] [facility] 2023-08-24 09:45:00 2023-08-24 10:34:12 Outpatient R ADALID LUKE [facility] [id number] [facility] 2023-08-24 09:45:00 2023-08-24 10:34:12 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 Lab, Scott - Tereso Unknown, Attending [facility] MIRNA VALLES?[facility] 1..840.114 350.1.13.10 4.2.7.2.686 [id number] [facility] 2023-08-20 10:15:00 2023-08-20 10:15:00 Outpatient R PASQUALE PAULA [facility] [id number] [facility] 2023-08-17 10:00:00 2023-08-17 10:30:06 Outpatient R CHAI PASQUALE [facility] [id number] [facility] 2023-08-17 10:00:00 2023-08-17 10:30:06 Office Visit Pasquale Paula [facility] 1.840.114 350.1.13.10 4.2.7.2.686 [id number] [facility] 2023-06-06 14:30:00 2023-06-06 14:30:00 Outpatient R [facility] [id number] [facility] 2023-05-01 14:00:00 2023-05-01 14:00:00 Outpatient R SHANTHI BAUER [facility] [id number] [facility] 2023-04-18 14:45:00 2023-04-18 14:45:00 Outpatient R [facility] [id number] [facility] 2023-04-18 00:00:00 2023-04-18 00:00:00 Telephone Alem Mascorro [facility] 1.840.114 350.1.13.10 4.2.7.2.686 [id number] [facility] 2023-03-30 14:30:00 2023-03-30 14:30:00 Outpatient PEDRO LANGFORD [id number] Ani Johnson 2023-03-26 13:15:00 2023-03-26 14:17:58 Outpatient R SHANTHI BAUER [facility] [id number] [facility] 2023-03-26 13:15:00 2023-03-26 14:17:58 Routine Visit Shanthi Bauer [facility] EVENT COORDINATOR [facility] 1.2.114 350.1.13.10 4.2.7.2.686 [id number] [facility] 2023 00:00:00 2023 00:00:00 Patient Secure Msg Shanthi Bauer [facility] EVENT COORDINATOR [facility] 1..114 350.1.13.10 4.2.7.2.686 [id number] [facility] 2023-03-05 09:58:00 2023-03-07 13:07:00 Inpatient P RUSTAM YU [facility] [id number] [facility] 2023-03-05 09:58:00 2023-03-07 13:07:00 [facility] 350.1.13.10 4.2.7.2.686 [id number] [facility] 2023-03-05 14:43:00 2023-03-05 22:15:00 Anesthesia Event Carole Ramirez Allison Elizabeth [facility] 1.114 350.1.13.10 4.2.7.2.686 [id number] [facility] 2023-03-01 00:00:00 2023-03-01 00:00:00 Patient Secure Msg Shanthi Bauer [facility] EVENT COORDINATOR [facility] 1.2840.114 350.1.13.10 4.2.7.2.686 [id number] [facility] 2023-02-27 09:00:00 2023-02-27 09:00:00 Outpatient R SHANTHI BAUER [facility] [id number] [facility] 2023-02-27 00:00:00 2023-02-27 00:00:00 Telephone Shanthi Bauer [facility] EVENT COORDINATOR [facility] CH[facility] 1.2840.114 350.1.13.10 4.2.7.2.686 [id number] [facility] 2023-02-27 00:00:00 2023-02-27 00:00:00 Patient Secure Msg Shanthi Bauer [facility] EVENT COORDINATOR [facility] 1.840.114 350.1.13.10 4.2.7.2.686 [id number] [facility] 2023-02-20 09:15:00 2023-02-20 09:29:39 Outpatient R SANIYA WOLF [facility] [id number] [facility] 2023-02-20 09:15:00 2023-02-20 09:29:39 Routine Visit Saniya Wolf [facility] EVENT COORDINATOR [facility] 1.840.114 350.1.13.10 4.2.7.2.686 [id number] [facility] 2023-02-19 00:00:00 2023-02-19 00:00:00 Telephone Shanthi Bauer [facility] EVENT COORDINATOR [facility] 1.2840.114 350.1.13.10 4.2.7.2.686 [id number] [facility] 2023-02-16 14:02:00 2023-02-16 17:10:00 Outpatient X ADUM, ROSIBEL [facility] JAGRUTI [id number] [facility] 2023-02-16 14:02:00 2023-02-16 17:10:00 Emergency Adum, Rosibel Johnson [facility] 1.2.840.114 350.1.13.10 4.2.7.2.686 [id number] [facility] 2023-02-16 00:00:00 2023-02-16 00:00:00 Refill Shanthi Bauer [facility] EVENT COORDINATOR [facility] 1.2.840.114 350.1.13.10 4.2.7.2.686 [id number] 107 [id number] [facility] 2023-02-16 00:00:00 2023-02-16 00:00:00 Nurse Triage Iram Damico [facility] 1.2840.114 350.1.13.10 4.2.7.2.686 [id number] [id number] [facility] 2023-02-16 00:00:00 2023-02-16 00:00:00 Patient Secure Msg Shanthi Bauer [facility] EVENT COORDINATOR [facility] 1.2.840.114 350.1.13.10 4.2.7.2.686 [id number] 107 [id number] [facility] 2023-02-14 00:00:00 2023-02-14 00:00:00 Telephone Shanthi Bauer [facility] EVENT COORDINATOR [facility] 1.2.840.114 350.1.13.10 4.2.7.2.686 [id number] 107 [id number] [facility] 2023-02-14 00:00:00 2023-02-14 00:00:00 Refill Shanthi Bauer [facility] EVENT COORDINATOR [facility] 1..114 350.1.13.10 4.2.7.2.686 [id number] 107 [id number] [facility] 2023-02-13 10:30:00 2023-02-13 11:21:12 Outpatient R SHANTHI [facility] [id number] [facility] 2023-02-13 10:30:00 2023-02-13 11:21:12 Routine Visit Shanthi Bauer [facility] EVENT COORDINATOR [facility] 1.0.114 350.1.13.10 4.2.7.2.686 [id number] 107 [id number] [facility] 2023-02-13 00:00:00 2023-02-13 00:00:00 Orders Only Doctor Unassigned, [place] [facility] 1..114 350.1.13.10 4.2.7.2.686 [id number] [facility] 2023-02-06 11:00:00 2023-02-06 11:00:00 Outpatient R SHANTHI [facility]AUER [facility] [id number] [facility] 2023-02-05 16:00:00 2023-02-05 16:12:16 Outpatient R SHANTHI [facility]AUER [facility] [id number] [facility] 2023-02-05 16:00:00 2023-02-05 16:12:16 Routine Visit Shanthi Bauer [facility] EVENT COORDINATOR [facility] 1..114 350.1.13.10 4.2.7.2.686 [id number] 107 [id number] [facility] 2023-02-05 00:00:00 2023-02-05 00:00:00 Patient Secure Msg Shanthi Bauer [facility] EVENT COORDINATOR [facility] 1..114 350.1.13.10 4.2.7.2.686 [id number] 107 [id number] [facility] 2023-01-24 10:30:00 2023-01-24 10:30:00 Outpatient R SHANTHI [facility]AUER [facility] [id number] [facility] 2023-01-23 14:00:00 2023-01-23 14:00:15 Outpatient R SHANTHI [facility]AUER [facility] [id number] [facility] 2023-01-23 14:00:00 2023-01-23 14:00:15 Routine Visit Wesandrea Shanthi Lydia [facility] EVENT COORDINATOR [facility] 1.840.114 350.1.13.10 4.2.7.2.686 [id number] 107 [id number] [facility] 2023-01-19 00:00:00 2023-01-19 00:00:00 Patient Secure Msg Shanthi Bauer Lydia [facility] EVENT COORDINATOR [facility] 1.0.114 350.1.13.10 4.2.7.2.686 [id number] 107 [id number] [facility] 2023-01-10 10:30:00 2023-01-10 10:58:10 Outpatient R SHANTHI [facility]AUER [facility] [id number] [facility] 2023-01-10 10:30:00 2023-01-10 10:58:10 Routine Visit Shanthi Bauer [facility] EVENT COORDINATOR [facility] 1.840.114 350.1.13.10 4.2.7.2.686 [id number] 107 [id number] [facility] 2023-01-10 00:00:00 2023-01-10 00:00:00 Orders Only Doctor Unassigned, [place] [facility] 1.840.114 350.1.13.10 4.2.7.2.686 [id number] 009 [id number] [facility] 2023-01-04 10:15:00 2023-01-04 10:15:00 Outpatient R SHANTHI [facility]AUER [facility] [id number] [facility] 2022-12-21 09:45:00 2022-12-21 10:30:23 Outpatient R SHANTHI [facility]AUER [facility] [id number] [facility] 2022-12-21 09:45:00 2022-12-21 10:30:23 Routine Visit Shanthi Bauer [facility] EVENT COORDINATOR [facility] 1.2.840.114 350.1.13.10 4.2.7.2.686 [id number] 107 [id number] [facility] 2022-12-13 00:00:00 2022-12-13 00:00:00 Abstract Shanthi Bauer [facility] EVENT COORDINATOR [facility] 1.2840.114 350.1.13.10 4.2.7.2.686 [id number] 107 [id number] [facility] 2022-12-13 00:00:00 2022-12-13 00:00:00 Patient Secure Msg Shanthi Bauer [facility] EVENT COORDINATOR [facility] 1.2.840.114 350.1.13.10 4.2.7.2.686 [id number] 107 [id number] [facility] 2022-12-12 15:30:00 2022-12-12 15:36:22 Outpatient P AVELINO YUN [facility] [id number] [facility] 2022-12-12 15:30:00 2022-12-12 15:36:22 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 Ultrasound, Scott-Avelino Hutchinson [facility] EVENT COORDINATOR [facility] 1.2.840.114 350.1.13.10 4.2.7.2.686 [id number] 369 [id number] [facility] 2022-12-12 14:00:00 2022-12-12 14:37:47 Routine Visit Shanthi Bauer [facility] EVENT COORDINATOR [facility] 1.2.840.114 350.1.13.10 4.2.7.2.686 [id number] 107 [id number] [facility] 2022-12-12 00:00:00 2022-12-12 00:00:00 Telephone Shanthi Bauer [facility] EVENT COORDINATOR [facility] 1.2840.114 350.1.13.10 4.2.7.2.686 [id number] 107 [id number] [facility] 2022-12-07 10:30:00 2022-12-07 11:43:28 Outpatient R SHANTHI [facility]AUER [facility] [id number] [facility] 2022-12-07 10:30:00 2022-12-07 11:43:28 Routine Visit Shanthi Bauer [facility] EVENT COORDINATOR [facility] 1.840.114 350.1.13.10 4.2.7.2.686 [id number] 107 [id number] [facility] 2022-11-17 00:00:00 2022-11-17 00:00:00 Telephone Amber Rey [facility] [place] 1.2840.114 350.1.13.10 4.2.7.2.686 [id number] [facility] 2022-11-16 10:30:00 2022-11-16 10:36:09 Outpatient R SHANTHI [facility]AUER [facility] [id number] [facility] 2022-11-16 10:30:00 2022-11-16 10:36:09 Routine Visit Shanthi Bauer [facility] EVENT COORDINATOR [facility] 1.2.840.114 350.1.13.10 4.2.7.2.686 [id number] 107 [id number] [facility] 2022-11-10 09:45:00 2022-11-10 10:30:26 Outpatient JA BEAR [facility] [id number] [facility] 2022-11-10 09:45:00 2022-11-10 10:30:26 Telemedici ne Visit Amber Rey Joseph W [facility] EVENT COORDINATOR [facility] 1.0.114 350.1.13.10 4.2.7.2.686 [id number] 107 [id number] [facility] 2022-11-10 00:00:00 2022-11-10 00:00:00 Telephone Shanthi Bauer [facility] EVENT COORDINATOR [facility] 1.0.114 350.1.13.10 4.2.7.2.686 [id number] 107 [id number] [facility] 2022-11-10 00:00:00 2022-11-10 00:00:00 Orders Only Doctor Unassigned, [place] [facility] ..114 350.1.13.10 4.2.7.2.686 [id number] 009 [id number] [facility] 2022-11-10 00:00:00 2022-11-10 00:00:00 Patient Secure Msg Shanthi Bauer [facility] EVENT COORDINATOR [facility] 1.0.114 350.1.13.10 4.2.7.2.686 [id number] 107 [id number] [facility] 2022-11-10 00:00:00 2022-11-10 00:00:00 Patient Secure Msg Shanthi Bauer [facility] EVENT COORDINATOR [facility] .0.114 350.1.13.10 4.2.7.2.686 [id number] 107 [id number] [facility] 2022-11-07 00:00:00 2022-11-07 00:00:00 Abstract Shanthi Bauer [facility] EVENT COORDINATOR [facility] 1.2.840.114 350.1.13.10 4.2.7.2.686 [id number] 107 [id number] [facility] 2022-11-07 00:00:00 2022-11-07 00:00:00 Telephone Shanthi Bauer [facility] EVENT COORDINATOR [facility] 1..840.114 350.1.13.10 4.2.7.2.686 [id number] 107 [id number] [facility] 2022-10-31 14:00:00 2022-10-31 15:26:34 Outpatient P AVELINO YUN [facility] [id number] [facility] 2022-10-31 14:00:00 2022-10-31 15:26:34 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 Ultrasound, Ang-Mfm Avelino Yun [facility] EVENT COORDINATOR [facility] 1..840.114 350.1.13.10 4.2.7.2.686 [id number] 369 [id number] [facility] 2022-10-26 15:45:00 2022-10-26 16:10:05 Outpatient R SHANTHI [facility]AUER [facility] [id number] [facility] 2022-10-26 15:45:00 2022-10-26 16:10:05 Routine Visit Shanthi Bauer [facility] EVENT COORDINATOR [facility] 1..840.114 350.1.13.10 4.2.7.2.686 [id number] 107 [id number] [facility] 2022-10-20 00:00:00 2022-10-20 00:00:00 Telephone Shanthi Bauer [facility] EVENT COORDINATOR [facility] 1.0.114 350.1.13.10 4.2.7.2.686 [id number] 107 [id number] [facility] 2022-10-19 00:00:00 2022-10-19 00:00:00 Refill Shanthi Bauer [facility] EVENT COORDINATOR [facility] 1.0.114 350.1.13.10 4.2.7.2.686 [id number] 107 [id number] [facility] 2022-10-18 00:00:00 2022-10-18 00:00:00 Refill Shanthi Bauer [facility] EVENT COORDINATOR [facility] 1.0.114 350.1.13.10 4.2.7.2.686 [id number] 107 [id number] [facility] 2022-10-16 15:15:00 2022-10-16 15:15:00 Outpatient SANIYA MICHAEL [facility] [id number] [facility] 2022-10-06 00:00:00 2022-10-06 00:00:00 Abstract ValdemarjeovannyShanthi mendez [facility] EVENT COORDINATOR [facility] 1..114 350.1.13.10 4.2.7.2.686 [id number] 107 [id number] [facility] 2022-09-29 15:30:00 2022-09-29 16:58:04 Outpatient RUSTAM SMITH [facility] [id number] [facility] 2022-09-29 15:30:00 2022-09-29 16:58:04 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 1, [facility] 1..114 350.1.13.10 4.2.7.2.686 [id number] [facility] 2022-09-22 15:15:00 2022-09-22 15:15:00 Outpatient RUSTAM SMITH [facility] [id number] [facility] 2022-09-18 15:00:00 2022-09-18 16:06:28 Outpatient R VALDEMARJEOVANNYSHANTHI MENDEZ [facility] [id number] [facility] 2022-09-18 15:00:00 2022-09-18 16:06:28 Routine Visit Saniya Wolf Damilola C [facility] EVENT COORDINATOR [facility] .2.840.114 350.1.13.10 4.2.7.2.686 [id number] 107 [id number] [facility] 2022-08-21 14:45:00 2022-08-21 15:43:20 Outpatient R SHANTHI BAUER [facility] [id number] [facility] 2022-08-21 14:45:00 2022-08-21 15:43:20 Routine Visit Shanthi Bauer [facility] EVENT COORDINATOR [facility] .2.840.114 350.1.13.10 4.2.7.2.686 [id number] 107 [id number] [facility] 2022-08-21 10:30:00 2022-08-21 10:30:00 Outpatient R SHANTHI BAUER [facility] [id number] [facility] 2022-08-15 00:00:00 2022-08-15 00:00:00 Abstract Paddy Bauerilola Lydia [facility] EVENT COORDINATOR [facility] .2.840.114 350.1.13.10 4.2.7.2.686 [id number] 107 [id number] [facility] 2022-08-14 08:30:00 2022-08-14 09:12:30 Outpatient P ALBERTO SINHA [facility] [id number] [facility] 2022-08-14 08:30:00 2022-08-14 09:00:00 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 Ultrasound, Alberto Garcia [facility] EVENT COORDINATOR [facility] 1.2.840.114 350.1.13.10 4.2.7.2.686 [id number] 369 [id number] [facility] 2022-08-09 00:00:00 2022-08-09 00:00:00 Patient Secure Msg Shanthi Bauer [facility] EVENT COORDINATOR [facility] 1.2.840.114 350.1.13.10 4.2.7.2.686 [id number] 107 [id number] [facility] 2022-08-07 00:00:00 2022-08-07 00:00:00 Patient Secure Msg Shanthi Bauer [facility] EVENT COORDINATOR [facility] 1.2.840.114 350.1.13.10 4.2.7.2.686 [id number] 107 [id number] [facility] 2022-08-07 00:00:00 2022-08-07 00:00:00 Patient Secure Msg Shanthi Bauer [facility] EVENT COORDINATOR [facility] 1.2.840.114 350.1.13.10 4.2.7.2.686 [id number] 107 [id number] [facility] 2022-08-03 00:00:00 2022-08-03 00:00:00 Telephone Shanthi Bauer [facility] EVENT COORDINATOR [facility] 1.2.840.114 350.1.13.10 4.2.7.2.686 [id number] 107 [id number] [facility] 2022-07-31 09:30:00 2022-07-31 13:38:09 Outpatient TERRENCE LATHAM [facility] [id number] [facility] 2022-07-31 09:30:00 2022-07-31 10:00:00 Telemedici ne Visit Faculty, Terrence Carreon [facility] EVENT COORDINATOR [facility] 1.2.840.114 350.1.13.10 4.2.7.2.686 [id number] 107 [id number] [facility] 2022-07-28 00:00:00 2022-07-28 00:00:00 Telephone Shanthi Bauer [facility] EVENT COORDINATOR [facility] 1.2.840.114 350.1.13.10 4.2.7.2.686 [id number] 107 [id number] [facility] 2022-07-27 10:15:00 2022-07-27 10:15:00 Outpatient ADILSON CARDONA [facility] [id number] [facility] 2022-07-25 15:30:00 2022-07-25 15:30:00 Outpatient AMENA KHAN [facility] [id number] [facility] 2022-07-25 00:00:00 2022-07-25 00:00:00 Telephone Shanthi Bauer [facility] EVENT COORDINATOR [facility] 1.2.840.114 350.1.13.10 4.2.7.2.686 [id number] 107 [id number] [facility] 2022-07-24 14:00:00 2022-07-24 14:45:45 Initial Visit Shanthi Bauer [facility] EVENT COORDINATOR [facility] 1.2.840.114 350.1.13.10 4.2.7.2.686 [id number] 107 [id number] [facility] 2022-07-24 13:30:00 2022-07-24 12:53:06 Outpatient R SHANTHI BAUER [facility] [id number] [facility] 2022-07-24 00:00:00 2022-07-24 00:00:00 Orders Only Doctor Unassigned, [place] [facility] 1.2840.114 350.1.13.10 4.2.7.2.686 [id number] [id number] [facility] 2022-07-14 16:30:00 2022-07-14 16:30:00 Outpatient R AMENA BETANCOURT [facility] [id number] [facility] 2022-07-14 00:00:00 2022-07-14 00:00:00 Telephone [facility] 1.0.114 350.1.13.10 4.2.7.2.686 [id number] 134 [id number] [facility] 2022-07-12 00:00:00 2022-07-12 00:00:00 Patient Secure Msg [facility] 1.0.114 350.1.13.10 4.2.7.2.686 [id number] 134 [id number] [facility] 2022-07-10 09:30:00 2022-07-10 09:45:00 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 Pob, Adc [facility] 1.840.114 350.1.13.10 4.2.7.2.686 [id number] [facility] 2022-07-10 09:30:00 2022-07-10 09:30:00 Outpatient R AMENA BETANCOURT [facility] [id number] [facility] 2022-07-10 00:00:00 2022-07-10 00:00:00 Orders Only Doctor Unassigned, [place] [facility] 1.2840.114 350.1.13.10 4.2.7.2.686 [id number] 009 [id number] [facility] 2022-07-05 15:45:00 2022-07-05 15:45:00 Outpatient R AMENA BETANCOURT [facility] [id number] [facility] 2022-06-19 00:00:00 2022-06-19 00:00:00 Patient Secure Msg Doctor Unassigned, [place] [facility] 1.2840.114 350.1.13.10 4.2.7.2.686 [id number] 134 [id number] [facility] 2022-06-06 00:00:00 2022-06-06 00:00:00 [facility]phone [facility] 1.2840.114 350.1.13.10 4.2.7.2.686 [id number] 134 [id number] [facility] 2022-06-06 00:00:00 2022-06-06 00:00:00 Patient Secure Msg MariaelenaannetteAmena perry [facility] 1.20.114 350.1.13.10 4.2.7.2.686 [id number] 134 [id number] [facility] 2022-05-18 16:00:00 2022-05-18 16:15:00 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 Pob, Adc Lab Main Amena Betancourt [facility] 1.2840.114 350.1.13.10 4.2.7.2.686 [id number] [facility] 2022-05-18 16:00:00 2022-05-18 16:00:00 Outpatient R AMENA BETANCOURT [facility] [id number] [facility] 2022-04-25 00:00:00 2022-04-25 00:00:00 Telephone Amena Betancourt [facility] 1.2840.114 350.1.13.10 4.2.7.2.686 [id number] 134 [id number] [facility] 2022-04-19 11:30:00 2022-04-19 11:30:00 Outpatient R MARIAELENAAMENA RAI [facility] [id number] [facility] 2022-04-11 16:30:00 2022-04-11 16:30:00 Office Visit Asia Hollandtor [facility] 1.2.840.114 350.1.13.10 4.2.7.2.686 [id number] 134 [id number] [facility] 2022-04-11 16:30:00 2022-04-11 16:26:25 Outpatient R MARIAELENAANNETTEDYANAMENA DO MARIAELENAAMENA RAI [facility] [id number] [facility] 2022-04-11 00:00:00 2022-04-11 00:00:00 Telephone Rosibel Ramirez [facility] 1..840.114 350.1.13.10 4.2.7.2.686 [id number] 134 [id number] [facility] 2022-04-07 14:30:00 2022-04-07 14:30:00 Outpatient R MARIAELENAAMENA RAI MARIAELENAAMENA RAI [facility] [id number] [facility] 2022-04-04 00:00:00 2022-04-04 00:00:00 Telephone Asia Amena [facility] 1.2.840.114 350.1.13.10 4.2.7.2.686 [id number] 134 [id number] [facility] 2022-03-29 15:45:00 2022-03-29 15:45:00 Outpatient R CARLOSAMENA DO MARIAELENAANNETTEDYANAMENA DO [facility] [id number] [facility] 2022-03-28 15:00:00 2022-03-28 16:28:45 Outpatient R ROSIBEL RAMIREZ [facility] [id number] [facility] 2022-03-28 15:00:00 2022-03-28 16:28:45 Routine Visit Rosibel Ramirez [facility] 1.2.840.114 350.1.13.10 4.2.7.2.686 [id number] 134 [id number] [facility] 2022-03-28 00:00:00 2022-03-28 00:00:00 Orders Only Doctor Unassigned, [place] [facility] 1.2.840.114 350.1.13.10 4.2.7.2.686 [id number] [facility] 2022-03-27 11:30:00 2022-03-27 11:45:00 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 Lab, [facility] 1.2840.114 350.1.13.10 4.2.7.2.686 [id number] 353 [id number] [facility] 2022-03-27 11:15:00 2022-03-27 11:15:00 Routine Visit Asia [facility] 1.2.840.114 350.1.13.10 4.2.7.2.686 [id number] 134 [id number] [facility] 2022-03-27 11:15:00 2022-03-27 10:54:35 [facility] [id number] [facility] 2022-03-27 00:00:00 2022-03-27 00:00:00 Orders Only Doctor Unassigned, [place] [facility] 1.2.840.114 350.1.13.10 4.2.7.2.686 [id number] [facility] 2022-03-27 00:00:00 2022-03-27 00:00:00 Telephone Amena Betancourt [facility] 1.2.840.114 350.1.13.10 4.2.7.2.686 [id number] [facility] 2022-03-24 13:30:16 2022-03-24 23:59:00 Outpatient R [facility] [id number] [facility] 2022-03-24 13:30:16 2022-03-24 23:59:00 Hospital Encounter Amena Betancourt [facility] 1.2.840.114 350.1.13.10 4.2.7.2.686 [id number] [facility] 2022-03-24 00:00:00 2022-03-24 00:00:00 Telephone Amena Betancourt [facility] 1.2.840.114 350.1.13.10 4.2.7.2.686 [id number] 134 [id number] [facility] 2022-03-23 13:31:00 2022-03-23 19:01:00 Emergency X Susan MARTINEZ [facility] [id number] [facility] 2022-03-23 13:31:00 2022-03-23 19:01:00 Emergency Susan Martinez [facility] 1.2.840.114 350.1.13.10 4.2.7.2.686 [id number] [facility] 2022-03-23 13:00:00 2022-03-23 13:20:00 [facility]ending [facility] 1.2840.114 350.1.13.10 4.2.7.2.686 [id number] [facility] 2022-03-23 13:00:00 2022-03-23 12:57:56 Outpatient R [facility] [id number] [facility] 2022-03-23 00:00:00 2022-03-23 00:00:00 Orders Only Doctor Unassigned, [place] [facility] 1.2840.114 350.1.13.10 4.2.7.2.686 [id number] [facility] 2022-03-15 16:00:00 2022-03-15 16:00:00 Outpatient R ROSIBEL RAMIREZ [facility] [id number] [facility] 2022-03-15 13:45:00 2022-03-15 14:37:26 Outpatient R [facility] [id number] [facility] 2022-03-15 13:45:00 2022-03-15 14:37:26 Routine Visit [place] [facility] 1.0.114 350.1.13.10 4.2.7.2.686 [id number] 134 [id number] [facility] 2022-03-15 10:15:00 2022-03-15 10:15:00 Outpatient R ROSIBEL RAMIREZ [facility] [id number] [facility] 2022 00:00:00 2022 00:00:00 [facility] 1.0.114 350.1.13.10 4.2.7.2.686 [id number] 134 [id number] [facility] 2022-03-09 00:00:00 2022-03-09 00:00:00 [facility] 1.2840.114 350.1.13.10 4.2.7.2.686 [id number] 134 [id number] [facility] 2022-03-07 00:00:00 2022-03-07 00:00:00 Telephone MariaelenaAmena rai [facility] 1.2.840.114 350.1.13.10 4.2.7.2.686 [id number] 134 [id number] [facility] 2022-03-07 00:00:00 2022-03-07 00:00:00 [facility]phone [facility] 1.2.840.114 350.1.13.10 4.2.7.2.686 [id number] 134 [id number] [facility] 2022-03-06 00:00:00 2022-03-06 00:00:00 Outpatient R AMENA BETANCOURT [facility] [id number] [facility] 2022-03-06 00:00:00 2022-03-06 00:00:00 [facility]phone [facility] 1.2.840.114 350.1.13.10 4.2.7.2.686 [id number] 134 [id number] [facility] 2022-03-05 00:00:00 2022-03-05 00:00:00 Case Management [facility] 1.2.840.114 350.1.13.10 4.2.7.2.686 [id number] [facility] 2022-03-03 14:10:30 2022-03-03 23:59:00 Outpatient R AMENA BETANCOURT [facility] [id number] [facility] 2022-03-03 14:00:00 2022-03-03 23:59:00 Hospital Encounter Amena Betancourt [facility] 1.2.840.114 350.1.13.10 4.2.7.2.686 [id number] [facility] 2022-02-23 00:00:00 2022-02-23 00:00:00 Case Management Amena Betancourt [facility] 1.2.840.114 350.1.13.10 4.2.7.2.686 [id number] 134 [id number] [facility] 2022-02-22 16:45:00 2022-02-22 17:00:00 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 Pob, [facility] 1.2.840.114 350.1.13.10 4.2.7.2.686 [id number] 353 [id number] [facility] 2022-02-22 15:30:00 2022-02-22 16:14:30 Outpatient R CARLOSAMENA DO [facility] [id number] [facility] 2022-02-22 15:30:00 2022-02-22 16:14:30 Initial Visit Amena Betancourt [facility] 1.2.840.114 350.1.13.10 4.2.7.2.686 [id number] 134 [id number] [facility] 2022-02-20 13:15:00 2022-02-20 13:30:00 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 Pocalvin, Adc Lab Main [place] [facility] [employer] 1.2.840.114 350.1.13.10 4.2.7.2.686 [id number] 353 [id number] [facility] 2022-02-20 13:15:00 2022-02-20 13:15:00 Outpatient R MAR[facility]ELENAAMENA [facility] [id number] [facility] 2022-02-20 00:00:00 2022-02-20 00:00:00 Patient Secure Msg Amena Betancourt [facility] 1.2.840.114 350.1.13.10 4.2.7.2.686 [id number] 134 [id number] [facility] 2022-02-20 00:00:00 2022-02-20 00:00:00 Telephone Amena Betancourt [facility] 1.2.840.114 350.1.13.10 4.2.7.2.686 [id number] 134 [id number] [facility] 2022-02-20 00:00:00 2022-02-20 00:00:00 Patient Secure Msg Deanne Simmons [facility] 1.2.840.114 350.1.13.10 4.2.7.2.686 [id number] 134 [id number] [facility] 2022-02-18 10:00:00 2022-02-18 10:15:00 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 Pob, Adc Lab Main Amena Betancourt [facility] 1.840.114 350.1.13.10 4.2.7.2.686 [id number] [facility] 2022-02-18 10:00:00 2022-02-18 10:00:00 Outpatient R AMENA BETANCOURT [facility] [id number] [facility] 2022-02-18 00:00:00 2022-02-18 00:00:00 Orders Only Doctor Unassigned, [place] [facility] 1.2.840.114 350.1.13.10 4.2.7.2.686 [id number] [facility] 2022-02-17 00:00:00 2022-02-17 00:00:00 Patient Secure Msg Deanne Simmons [facility] 1.2840.114 350.1.13.10 4.2.7.2.686 [id number] 134 [id number] [facility] 2022-02-17 00:00:00 2022-02-17 00:00:00 Telephone Amena Betancourt [facility] 1..840.114 350.1.13.10 4.2.7.2.686 [id number] 134 [id number] [facility] 2022-02-08 00:00:00 2022-02-08 00:00:00 Outpatient R AMENA BETANCOURT [facility] [id number] [facility] 2022-01-24 15:30:00 2022-01-24 16:07:03 Outpatient R MARIAELENAAMENA RAIDYANAMENA DO [facility] [id number] [facility] 2022-01-24 15:30:00 2022-01-24 16:07:03 Office Visit Amena Betancourt [facility] 1.840.114 350.1.13.10 4.2.7.2.686 [id number] 134 [id number] [facility] 2022-01-20 15:15:00 2022-01-20 15:15:00 Outpatient R MARIAELENAAMENA RAI [facility] [id number] [facility] 2022-01-06 16:00:00 2022-01-06 16:00:00 Outpatient R MARIAELENAAMENA RAI MARIAELENAAMENA RAI [facility] [id number] [facility] 2022-01-06 14:15:00 2022-01-06 14:27:31 Outpatient R JARETH OLMEDO [facility] [id number] [facility] 2022-01-06 14:15:00 2022-01-06 14:27:31 Office Visit Jareth Olmedo [facility] 1.2.840.114 350.1.13.10 4.2.7.2.686 [id number] 134 [id number] [facility] 2022-01-03 00:00:00 2022-01-03 00:00:00 Telephone Jareth Olmedo [facility] 1..114 350.1.13.10 4.2.7.2.686 [id number] 134 [id number] [facility] 2021-12-30 11:00:00 2021-12-30 11:13:02 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 2, Adc Lab J[facility] 1..114 350.1.13.10 4.2.7.2.686 [id number] 353 [id number] [facility] 2021-12-30 09:30:00 2021-12-30 10:59:31 Outpatient R JARETH OLMEDO [facility] [id number] [facility] 2021-12-30 09:30:00 2021-12-30 10:59:31 Office Visit Honorio Jareth [facility] 1..114 350.1.13.10 4.2.7.2.686 [id number] 134 [id number] [facility] 2021-12-30 09:30:00 2021-12-30 10:59:31 Outpatient R JARETH OLMEDO [facility] [id number] [facility] 2021-12-30 00:00:00 2021-12-30 00:00:00 Orders Only Doctor Unassigned, [place] [facility] 1.0.114 350.1.13.10 4.2.7.2.686 [id number] [facility] 2021-12-28 00:00:00 2021-12-28 00:00:00 Telephone Amena Betancourt [facility] 1..114 350.1.13.10 4.2.7.2.686 [id number] 134 [id number] [facility] 2021-11-23 09:30:00 2021-11-23 10:56:47 Outpatient R ASIA [facility] [id number] [facility] 2021-11-23 09:30:00 2021-11-23 10:56:47 Office Visit [place] [facility] 1.2.840.114 350.1.13.10 4.2.7.2.686 [id number] [facility] 2021-11-09 16:30:00 2021-11-09 16:45:00 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 [facility] 1.2.840.114 350.1.13.10 4.2.7.2.686 [id number] 353 [id number] [facility] 2021-11-09 15:00:00 2021-11-09 15:40:11 [facility] 1.2.840.114 350.1.13.10 4.2.7.2.686 [id number] 134 [id number] [facility] 2021-11-09 15:00:00 2021-11-09 15:40:11 Outpatient R AMENA BETANCOURT [facility] [id number] [facility] 2021-11-09 15:00:00 2021-11-09 15:40:11 Outpatient R AMENA BETANCOURT [facility] [id number] [facility] 2021-11-09 15:00:00 2021-11-09 15:00:00 Outpatient R AMENA BETANCOURT [facility] [id number] [facility] 2021-10-27 15:00:00 2021-10-27 15:45:46 Outpatient R JARETH OLMEDO [facility] [id number] [facility] 2021-10-27 15:00:00 2021-10-27 15:45:46 Office Visit Jareth Olmedo [facility] 1.2840.114 350.1.13.10 4.2.7.2.686 [id number] 134 [id number] [facility] 2021-10-27 00:00:00 2021-10-27 00:00:00 Orders Only Doctor Unassigned, [place] [facility] 1.2840.114 350.1.13.10 4.2.7.2.686 [id number] [facility] 2021-10-18 12:38:00 2021-10-18 17:05:00 Emergency X KAMERON DANIELS [facility] ERT [id number] [facility] 2021-10-18 12:38:00 2021-10-18 17:05:00 Emergency Kameron Daniels [facility] 1.2.840.114 350.1.13.10 4.2.7.2.686 [id number] [facility] 2021-10-18 12:38:00 2021-10-18 17:05:00 Emergency KAMERON SANABRIA [facility] ERT [id number] [facility] 2021-02-20 07:08:00 2021-02-20 10:32:00 Emergency EM Brad Lizarragablanenik [facility] ESTRELLITA [id number] Results Test Description Test Time Test Comments Results Result Co mments Source [facility], [place]PO[place] [id number] 15:03:00* Test Item Value Reference Range Interpretation Comme nts POCT PREG (test code = 1605) Positive On board controls acceptable with C Line (test code = 3574) Yes POCT PREG LOT # (test code = 3575) POCT PREG TEST DATE ( test code = 3576) [facility]PO[place] [id number] 15:03:00* Test Item Value Reference Range Interpretation Comme nts POCT PREG (test code = 1605) Positive On board controls acceptable with C Line (test code = 3574) Yes POCT PREG LOT # (test code = 3575) POCT PREG TEST DATE ( test code = 3576) [facility], TXCBC with [id number] 11:03:13* Test Item Value Reference Range Interpretation Comme nts WBC (test code = 6690-2) 12.43 See_Comment H [Automated messa ge] The system which generated this result transmitted reference range: 4.30 - 11.10 10*3/?L. The reference range was not used to interpret this result as normal/abnormal. RBC (test code = 789-8) 2.96 See_Comment L [Automated messa ge] The system which generated this result transmitted reference range: 3.93 - 5.25 10*6/?L. The reference range was not used to interpret this result as normal/abnormal. HGB (test code = 718-7) 9.3 g/dL 11.6-15.0 L HCT (test code = 4544-3) 26.9 % 35.7-45.2 L MCV (test code = 787-2) 90.9 fL 80.6-95.5 MCH (test code = 785-6) 31.4 pg 25.9-32.8 MCHC (test code = 786-4) 34.6 g/dL 31.6-35.1 RDW-SD (test code = 96958-1) 45.6 fL 39.0-49.9 RDW-CV (test code = 788-0) 13.9 % 12.0-15.5 PLT (test code = 777-3) 270 See_Comment [Automated messa ge] The system which generated this result transmitted reference range: 166 - 358 10*3/?L. The reference range was not used to interpret this result as normal/abnormal. MPV (test code = 30220-1) 9.7 fL 9.5-12.9 NRBC/100 WBC (test code = 2293290386) 0.0 See_Comment [Automated me ssage] The system which generated this result transmitted reference range: 0.0 - 10.0 /100 WBCs. The reference range was not used to interpret this result as normal/abnormal. NRBC x10^3 (test code = 5721136764) See_Comment [Automated messa ge] The system which generated this result transmitted reference range: 10*3/?L. The reference range was not used to interpret this result as normal/abnormal. GRAN MAT (NEUT) % (test code = 770-8) 73.5 % IMM GRAN % (test code = 1082210971) 0.60 % LYMPH % (test code = 736-9) 14.2 % MONO % (test code = 5905-5) 10.1 % EOS % (test code = 713-8) 1.4 % BASO % (test code = 706-2) 0.2 % GRAN MAT x10^3(ANC) (test code = 0951498474) 9.12 10*3/uL 1.88-7.09 H IMM GRAN x10^3 (test code = 9612048267) 0.07 10*3/uL 0.00-0.06 H LYMPH x10^3 (test code = 731-0) 1.77 10*3/uL 1.32-3.29 MONO x10^3 (test code = 742-7) 1.26 10*3/uL 0.33-0.92 H EOS x10^3 (test code = 711-2) 0.18 10*3/uL 0.03-0.39 BASO x10^3 (test code = 704-7) 0.03 10*3/uL 0.01-0.07 Lab Interpretation (test code = 67568-2) Abnormal [facility], TXRH (D) IMMUNE [id number] 05:29:48* Test Item Value Reference Range Interpretation Comme nts RHIG CANDIDATE? (test code = 5188) Yes- see comment A Patient is a candidate for RhIg- Patient is Rh Negative and baby is Rh Positive.Performe d at [facility] Laboratory Services - [facility] Blood [address] [address]Mwzp Free: [phone] No. [id number] Lab Interpretation (test code = 56003-4) Abnormal [facility] [place], TXArterial Cord [id number] 02:53:06* Test Item Value Reference Range Interpretation Comme nts BASE EXCESS, CORD (test code = 7134957979) -3.0 mEq/L AC PH, CORD (BEAKER) (test code = 7506508196) 7.27 7.18-7.38 PC02, CORD (test code = 5887646559) 56 See_Comment [Automated messa ge] The system which generated this result transmitted reference range: 32 - 66 mmHg. The reference range was not used to interpret this result as normal/abnormal. PO2, CORD (test code = 3371686458) 20 See_Comment [Automated messa ge] The system which generated this result transmitted reference range: 10 - 30 mmHg. The reference range was not used to interpret this result as normal/abnormal. BICARBONATE, CORD (test code = 7356023199) 25 See_Comment [Automated messa ge] The system which generated this result transmitted reference range: 17 - 27 mEq/L. The reference range was not used to interpret this result as normal/abnormal. [facility] [id number] 02:51:49* Test Item Value Reference Range Interpretation Comme nts VENOUS BASE EXCESS, CORD (test code = 1041163550) -5.0 mEq/L VENOUS PH, CORD (test code = 8158577757) 7.26 7.25-7.45 VENOUS PC02, CORD (test code = 4567830517) 51 See_Comment H [Automated me ssage] The system which generated this result transmitted reference range: 27 - 49 mmHg. The reference range was not used to interpret this result as normal/abnormal. VENOUS PO2, CORD (test code = 6868644591) 20 See_Comment [Automated me ssage] The system which generated this result transmitted reference range: 17 - 41 mmHg. The reference range was not used to interpret this result as normal/abnormal. VENOUS BICARBONATE, CORD (test code = 6365285509) 22 See_Comment [Automa ayde message] The system which generated this result transmitted reference range: 12 - 29 mEq/L. The reference range was not used to interpret this result as normal/abnormal. Lab Interpretation (test code = 90647-6) [id number] 20:18:18* Test Item Value Reference Range Interpretation Comme nts ANTIBODY (test code = 683) Anti-D Probable RhIg Patient received Rhogam on 12/21/22Performed at [facility] Laboratory Services - [facility] Blood [address] [place] [address]Ythl Free: [phone] No. [id number] [facility] [place], [place]POCT URINALYSIS W SPECIFIC [id number] 15:07:00* Test Item Value Reference Range Interpretation Comme nts POCT U SP GRAV (test code = 3255) . 1.005-1.025 POCT PH U (test code = 3254) 8 mg/dl 5-8 POCT U LEUK EST (test code = 3263) 1+ Negative - Negative POCT U NIT (test code = 3262) neg Negative - Negati ve POCT U PROT (test code = 3259) trace Negative - Negat theron POCT U GLU (test code = 3256) neg Negative - Negati ve POCT U KETONE (test code = 3258) neg Negative - Neg ative POCT U UROBILI (test code = 3260) . 0.2-1 POCT U BILI (test code = 3261) . Negative - Negat theron POCT U BLD (test code = 3257) neg Negative - Negati ve POCT U COLOR (test code = 3266) . POCT U APPEAR (test code = 3267) . [facility] [id number] 16:00:00* Test Item Value Reference Range Interpretation Comme nts POCT U SP GRAV (test code = 3255) . 1.005-1.025 POCT PH U (test code = 3254) . 5-8 POCT U LEUK EST (test code = 3263) . Negative - Negative POCT U NIT (test code = 3262) . Negative - Negati ve POCT U PROT (test code = 3259) trace Negative - Negat theron POCT U GLU (test code = 3256) negative Negative - Negati ve POCT U KETONE (test code = 3258) . Negative - Neg ative POCT U UROBILI (test code = 3260) . 0.2-1 POCT U BILI (test code = 3261) . Negative - Negat theron POCT U BLD (test code = 3257) . Negative - Negati ve POCT U COLOR (test code = 3266) . POCT U APPEAR (test code = 3267) . [facility] URINALYSIS W SPECIFIC [id number] 20:59:00* Test Item Value Reference Range Interpretation Comme nts POCT U SP GRAV (test code = 3255) . 1.005-1.025 POCT PH U (test code = 3254) . 5-8 POCT U LEUK EST (test code = 3263) . Negative - N egative POCT U NIT (test code = 3262) . Negative - Negati ve POCT U PROT (test code = 3259) trace Negative - Negat theron POCT U GLU (test code = 3256) neg Negative - Negati ve POCT U KETONE (test code = 3258) . Negative - Neg ative POCT U UROBILI (test code = 3260) . 0.2-1 POCT U BILI (test code = 3261) . Negative - Negat theron POCT U BLD (test code = 3257) . Negative - Negati ve POCT U COLOR (test code = 3266) . POCT U APPEAR (test code = 3267) . [facility] URINALYSIS W SPECIFIC [id number] 18:27:00* Test Item Value Reference Range Interpretation Comme nts POCT U SP GRAV (test code = 3255) . 1.005-1.025 POCT PH U (test code = 3254) . 5-8 POCT U LEUK EST (test code = 3263) . Negative - N egative POCT U NIT (test code = 3262) . Negative - Negati ve POCT U PROT (test code = 3259) trace Negative - Negat theron POCT U GLU (test code = 3256) neg Negative - Negati ve POCT U KETONE (test code = 3258) . Negative - Neg ative POCT U UROBILI (test code = 3260) . 0.2-1 POCT U BILI (test code = 3261) . Negative - Negat theron POCT U BLD (test code = 3257) . Negative - Negati ve POCT U COLOR (test code = 3266) . POCT U APPEAR (test code = 3267) . [facility] URINALYSIS W SPECIFIC [id number] 18:27:00* Test Item Value Reference Range Interpretation Comme nts POCT U SP GRAV (test code = 3255) . 1.005-1.025 POCT PH U (test code = 3254) . 5-8 POCT U LEUK EST (test code = 3263) . Negative - N egative POCT U NIT (test code = 3262) . Negative - Negati ve POCT U PROT (test code = 3259) trace Negative - Negat theron POCT U GLU (test code = 3256) neg Negative - Negati ve POCT U KETONE (test code = 3258) . Negative - Neg ative POCT U UROBILI (test code = 3260) . 0.2-1 POCT U BILI (test code = 3261) . Negative - Negat theron POCT U BLD (test code = 3257) . Negative - Negati ve POCT U COLOR (test code = 3266) . POCT U APPEAR (test code = 3267) . [facility] URINALYSIS W SPECIFIC [id number] 18:27:00* Test Item Value Reference Range Interpretation Comme nts POCT U SP GRAV (test code = 3255) . 1.005-1.025 POCT PH U (test code = 3254) . 5-8 POCT U LEUK EST (test code = 3263) . Negative - N egative POCT U NIT (test code = 3262) . Negative - Negati ve POCT U PROT (test code = 3259) trace Negative - Negat theron POCT U GLU (test code = 3256) neg Negative - Negati ve POCT U KETONE (test code = 3258) . Negative - Neg ative POCT U UROBILI (test code = 3260) . 0.2-1 POCT U BILI (test code = 3261) . Negative - Negat theron POCT U BLD (test code = 3257) . Negative - Negati ve POCT U COLOR (test code = 3266) . POCT U APPEAR (test code = 3267) . [facility] URINALYSIS W SPECIFIC [id number] 18:27:00* Test Item Value Reference Range Interpretation Comme nts POCT U SP GRAV (test code = 3255) . 1.005-1.025 POCT PH U (test code = 3254) . 5-8 POCT U LEUK EST (test code = 3263) . Negative - N egative POCT U NIT (test code = 3262) . Negative - Negati ve POCT U PROT (test code = 3259) trace Negative - Negat theron POCT U GLU (test code = 3256) neg Negative - Negati ve POCT U KETONE (test code = 3258) . Negative - Neg ative POCT U UROBILI (test code = 3260) . 0.2-1 POCT U BILI (test code = 3261) . Negative - Negat theron POCT U BLD (test code = 3257) . Negative - Negati ve POCT U COLOR (test code = 3266) . POCT U APPEAR (test code = 3267) . [facility] URINALYSIS W SPECIFIC [id number] 14:41:00* Test Item Value Reference Range Interpretation Comme nts POCT U SP GRAV (test code = 3255) . 1.005-1.025 POCT PH U (test code = 3254) 6 mg/dl 5-8 POCT U LEUK EST (test code = 3263) negative Negative - Negative POCT U NIT (test code = 3262) negative Negative - Negati ve POCT U PROT (test code = 3259) trace Negative - Negat theron POCT U GLU (test code = 3256) negative Negative - Negati ve POCT U KETONE (test code = 3258) negative Negative - Neg ative POCT U UROBILI (test code = 3260) . 0.2-1 POCT U BILI (test code = 3261) . Negative - Negat theron POCT U BLD (test code = 3257) negative Negative - Negati ve POCT U COLOR (test code = 3266) . POCT U APPEAR (test code = 3267) . [facility] ONLY - SYPHILIS [id number] 15:06:38* Test Item Value Reference Range Interpretation Comme nts Syphilis IgG/IgM (test code = 33314-4) Non-reactive Non-reactive SAMY (test code = SAMY) Non-reactive - No serologic evidence of T. pallidum infection. Cannot exclude incubating or early syphilis. Submit a second specimen in 2-4 weeks if syphilis is clinically suspected. Equivocal - Further testing to follow. Reactive - Further testing to follow. Lab Interpretation (test code = 90658-9) Normal [facility] [place], TXPrenatal Workup, Blood [id number] 19:09:00 * Test Item Value Reference Range Interpretation Comme nts ABO & RH (test code = 20) O NEGATIVE IAT (test code = 1185) Negative [facility] URINALYSIS W SPECIFIC [id number] 14:23:00* Test Item Value Reference Range Interpretation Comme nts POCT U SP GRAV (test code = 3255) . 1.005-1.025 POCT PH U (test code = 3254) . 5-8 POCT U LEUK EST (test code = 3263) . Negative - Negative POCT U NIT (test code = 3262) . Negative - Negati ve POCT U PROT (test code = 3259) negative Negative - Negat theron POCT U GLU (test code = 3256) negative Negative - Negati ve POCT U KETONE (test code = 3258) . Negative - Neg ative POCT U UROBILI (test code = 3260) . 0.2-1 POCT U BILI (test code = 3261) . Negative - Negat theron POCT U BLD (test code = 3257) . Negative - Negati ve POCT U COLOR (test code = 3266) . POCT U APPEAR (test code = 3267) . [facility] URINALYSIS W SPECIFIC [id number] 19:12:00* Test Item Value Reference Range Interpretation Comme nts POCT U SP GRAV (test code = 3255) . 1.005-1.025 POCT PH U (test code = 3254) . 5-8 POCT U LEUK EST (test code = 3263) . Negative - N egative POCT U NIT (test code = 3262) . Negative - Negati ve POCT U PROT (test code = 3259) trace Negative - Negat theron POCT U GLU (test code = 3256) neg Negative - Negati ve POCT U KETONE (test code = 3258) . Negative - Neg ative POCT U UROBILI (test code = 3260) . 0.2-1 POCT U BILI (test code = 3261) . Negative - Negat theron POCT U BLD (test code = 3257) . Negative - Negati ve POCT U COLOR (test code = 3266) . POCT U APPEAR (test code = 3267) . [facility] URINALYSIS W SPECIFIC [id number] 15:07:00* Test Item Value Reference Range Interpretation Comme nts POCT U SP GRAV (test code = 3255) . 1.005-1.025 POCT PH U (test code = 3254) . 5-8 POCT U LEUK EST (test code = 3263) . Negative - Negative POCT U NIT (test code = 3262) . Negative - Negati ve POCT U PROT (test code = 3259) trace Negative - Negat theron POCT U GLU (test code = 3256) negative Negative - Negati ve POCT U KETONE (test code = 3258) . Negative - Neg ative POCT U UROBILI (test code = 3260) . 0.2-1 POCT U BILI (test code = 3261) . Negative - Negat theron POCT U BLD (test code = 3257) . Negative - Negati ve POCT U COLOR (test code = 3266) . POCT U APPEAR (test code = 3267) . [facility] URINALYSIS W SPECIFIC [id number] 15:07:00* Test Item Value Reference Range Interpretation Comme nts POCT U SP GRAV (test code = 3255) . 1.005-1.025 POCT PH U (test code = 3254) . 5-8 POCT U LEUK EST (test code = 3263) . Negative - Negative POCT U NIT (test code = 3262) . Negative - Negati ve POCT U PROT (test code = 3259) trace Negative - Negat theron POCT U GLU (test code = 3256) negative Negative - Negati ve POCT U KETONE (test code = 3258) . Negative - Neg ative POCT U UROBILI (test code = 3260) . 0.2-1 POCT U BILI (test code = 3261) . Negative - Negat theron POCT U BLD (test code = 3257) . Negative - Negati ve POCT U COLOR (test code = 3266) . POCT U APPEAR (test code = 3267) . [facility] URINALYSIS W SPECIFIC [id number] 14:51:00* Test Item Value Reference Range Interpretation Comme nts POCT U SP GRAV (test code = 3255) . 1.005-1.025 POCT PH U (test code = 3254) . 5-8 POCT U LEUK EST (test code = 3263) . Negative - N egative POCT U NIT (test code = 3262) . Negative - Negati ve POCT U PROT (test code = 3259) trace Negative - Negat theron POCT U GLU (test code = 3256) neg Negative - Negati ve POCT U KETONE (test code = 3258) . Negative - Neg ative POCT U UROBILI (test code = 3260) . 0.2-1 POCT U BILI (test code = 3261) . Negative - Negat theron POCT U BLD (test code = 3257) . Negative - Negati ve POCT U COLOR (test code = 3266) . POCT U APPEAR (test code = 3267) . [facility] URINALYSIS W SPECIFIC [id number] 14:51:00* Test Item Value Reference Range Interpretation Comme nts POCT U SP GRAV (test code = 3255) . 1.005-1.025 POCT PH U (test code = 3254) . 5-8 POCT U LEUK EST (test code = 3263) . Negative - N egative POCT U NIT (test code = 3262) . Negative - Negati ve POCT U PROT (test code = 3259) trace Negative - Negat theron POCT U GLU (test code = 3256) neg Negative - Negati ve POCT U KETONE (test code = 3258) . Negative - Neg ative POCT U UROBILI (test code = 3260) . 0.2-1 POCT U BILI (test code = 3261) . Negative - Negat theron POCT U BLD (test code = 3257) . Negative - Negati ve POCT U COLOR (test code = 3266) . POCT U APPEAR (test code = 3267) . [facility] URINALYSIS W SPECIFIC [id number] 14:51:00* Test Item Value Reference Range Interpretation Comme nts POCT U SP GRAV (test code = 3255) . 1.005-1.025 POCT PH U (test code = 3254) . 5-8 POCT U LEUK EST (test code = 3263) . Negative - N egative POCT U NIT (test code = 3262) . Negative - Negati ve POCT U PROT (test code = 3259) trace Negative - Negat theron POCT U GLU (test code = 3256) neg Negative - Negati ve POCT U KETONE (test code = 3258) . Negative - Neg ative POCT U UROBILI (test code = 3260) . 0.2-1 POCT U BILI (test code = 3261) . Negative - Negat theron POCT U BLD (test code = 3257) . Negative - Negati ve POCT U COLOR (test code = 3266) . POCT U APPEAR (test code = 3267) . [facility] URINALYSIS W SPECIFIC [id number] 20:52:00* Test Item Value Reference Range Interpretation Comme nts POCT U SP GRAV (test code = 3255) . 1.005-1.025 POCT PH U (test code = 3254) . 5-8 POCT U LEUK EST (test code = 3263) . Negative - N egative POCT U NIT (test code = 3262) . Negative - Negati ve POCT U PROT (test code = 3259) trace Negative - Negat theron POCT U GLU (test code = 3256) neg Negative - Negati ve POCT U KETONE (test code = 3258) . Negative - Neg ative POCT U UROBILI (test code = 3260) . 0.2-1 POCT U BILI (test code = 3261) . Negative - Negat theron POCT U BLD (test code = 3257) . Negative - Negati ve POCT U COLOR (test code = 3266) . POCT U APPEAR (test code = 3267) . [facility] URINALYSIS W SPECIFIC [id number] 20:36:00* Test Item Value Reference Range Interpretation Comme nts POCT U SP GRAV (test code = 3255) . 1.005-1.025 POCT PH U (test code = 3254) 6 mg/dl 5-8 POCT U LEUK EST (test code = 3263) Trace Negative - Negative POCT U NIT (test code = 3262) Neg Negative - Negati ve POCT U PROT (test code = 3259) Trace Negative - Negat theron POCT U GLU (test code = 3256) Neg Negative - Negati ve POCT U KETONE (test code = 3258) None Negative - Neg ative POCT U UROBILI (test code = 3260) . 0.2-1 POCT U BILI (test code = 3261) . Negative - Negat theron POCT U BLD (test code = 3257) Trace Negative - Negati ve POCT U COLOR (test code = 3266) POCT U APPEAR (test code = 3267) [facility] URINALYSIS W SPECIFIC [id number] 20:22:00* Test Item Value Reference Range Interpretation Comme nts POCT U SP GRAV (test code = 3255) . 1.005-1.025 POCT PH U (test code = 3254) . 5-8 POCT U LEUK EST (test code = 3263) . Negative - N egative POCT U NIT (test code = 3262) . Negative - Negati ve POCT U PROT (test code = 3259) trace Negative - Negat theron POCT U GLU (test code = 3256) neg Negative - Negati ve POCT U KETONE (test code = 3258) . Negative - Neg ative POCT U UROBILI (test code = 3260) . 0.2-1 POCT U BILI (test code = 3261) . Negative - Negat theron POCT U BLD (test code = 3257) . Negative - Negati ve POCT U COLOR (test code = 3266) . POCT U APPEAR (test code = 3267) . [facility] URINALYSIS W/O SPECIFIC [id number] 18:12:00* Test Item Value Reference Range Interpretation Comme nts POCT PH U (test code = 3254) 5 mg/dl 5-8 POCT U LEUK EST (test code = 3263) 2+ Negative - Negative POCT U NIT (test code = 3262) NEG Negative - Negati ve POCT U PROT (test code = 3259) TRACE Negative - Negat theron POCT U GLU (test code = 3256) NEG Negative - Negati ve POCT U KETONE (test code = 3258) NEG Negative - Neg ative POCT U BLD (test code = 3257) NEG Negative - Negati ve [facility] [id number] 18:11:00* Test Item Value Reference Range Interpretation Comme nts POCT PREG (test code = 1605) Positive On board controls acceptable with C Line (test code = 3574) Yes POCT PREG LOT # (test code = 3575) POCT PREG TEST DATE ( test code = 3576) [facility] [place], [place]TROP[place] [id number] 21:14:40* Test Item Value Reference Range Interpretation Comments TROPONIN I (test code = 6493224496) 0.002 ng/mL See_Comment [Automated message] The system which generated this result transmitted reference range: <=0.034. The reference range was not used to interpret this result as normal/abnormal. SAMY (test code = SAMY) Reference (Normal) Range (defined by the 99th percentile reference [...] to patient's use of biotin. Lab Interpretation (test code = 74028-5) Normal [facility] [place], [place]N-TERMINAL [id number] 21:08:59* Test Item Value Reference Range Interpretation Comme nts NT-proBNP (test code = 2975522016) 53 pg/mL See_Comment [Automated message] The system which generated this result transmitted reference range: <=125. The reference range was not used to interpret this result as normal/abnormal. SAMY (test code = SAMY) Biotin has been reported to cause a negative bias, interpret results relative to patient's use of biotin. Lab Interpretation (test code = 07690-0) Normal [facility] [place], [id number] 21:00:36* Test Item Value Reference Range Interpretation Comme nts MAGNESIUM (test code = 4209258429) 1.9 mg/dL 1.7-2.4 Lab Interpretation (test cod e = 81679-4) Normal [facility] [place], TXCOMP. METABOLIC PANEL (25443)2022-03-23 21:00:16* Test Item Value Reference Range Interpretation Comme nts NA (test code = 8326168838) 136 mmol/L 135-145 K (test code = 9890519877) 4.4 mmol/L 3.5-5.0 CL (test code = 5555573879) 104 mmol/L 98-108 CO2 TOTAL (test code = 1107658518) 24 mmol/L 23-31 AGAP (test code = 4739230967) 2-16 BUN (test code = 6949634399) 13 mg/dL 7-23 GLUCOSE (test code = 4768760839) 92 mg/dL 70-110 CREATININE (test code = 3588816954) 0.53 mg/dL 0.50-1.04 TOTAL BILI (test code = 1571777332) 0.4 mg/dL 0.1-1.1 CALCIUM (test code = 3780894803) 9.1 mg/dL 8.6-10.6 T PROTEIN (test code = 0377263435) 7.2 g/dL 6.3-8.2 ALBUMIN (test code = 9522805718) 4.6 g/dL 3.5-5.0 ALK PHOS (test code = 8937263156) 50 U/L 34-122 ALTv (test code = 1742-6) 23 U/L 5-35 AST(SGOT) (test code = 8226779162) 32 U/L 13-40 eGFR (test code = 9943503302) mL/min/1.73m2 SAMY (test code = SAMY) Association of [...] or urine or abnormalities in imaging tests). [facility] WITH [id number] 20:35:10* Test Item Value Reference Range Interpretation Comme nts WBC (test code = 6690-2) See_Comment [Automated [employer]] The system which generated this result transmitted reference range: 4.30 - 11.10 10*3/?L. The reference range was not used to interpret this result as normal/abnormal. RBC (test code = 789-8) See_Comment L [Automated [employer]] The system which generated this result transmitted reference range: 3.93 - 5.25 10*6/?L. The reference range was not used to interpret this result as normal/abnormal. HGB (test code = 718-7) 11.1 g/dL 11.6-15.0 L HCT (test code = 4544-3) 32.2 % 35.7-45.2 L MCV (test code = 787-2) 91.2 fL 80.6-95.5 MCH (test code = 785-6) 31.4 pg 25.9-32.8 MCHC (test code = 786-4) 34.5 g/dL 31.6-35.1 RDW-SD (test code = 13715-7) 40.3 fL 39.0-49.9 RDW-CV (test code = 788-0) 12.1 % 12.0-15.5 PLT (test code = 777-3) See_Comment [Automated [employer]] The system which generated this result transmitted reference range: 166 - 358 10*3/?L. The reference range was not used to interpret this result as normal/abnormal. MPV (test code = 60182-6) 9.3 fL 9.5-12.9 L NRBC/100 WBC (test code = 6076788718) See_Comment [Automated [employer]] The system which generated this result transmitted reference range: 0.0 - 10.0 /100 WBCs. The reference range was not used to interpret this result as normal/abnormal. NRBC x10^3 (test code = 9796526452) See_Comment [Automated [employer]] The system which generated this result transmitted reference range: 10*3/?L. The reference range was not used to interpret this result as normal/abnormal. GRAN MAT (NEUT) % (test code = 770-8) 73.4 % IMM GRAN % (test code = 1992886594) 0.50 % LYMPH % (test code = 736-9) 15.5 % MONO % (test code = 5905-5) 8.2 % EOS % (test code = 713-8) 2.1 % BASO % (test code = 706-2) 0.3 % GRAN MAT x10^3(ANC) (test code = 9645877272) 7.55 10*3/uL 1.88-7.09 H IMM GRAN x10^3 (test code = 6683356405) 0.05 10*3/uL 0.00-0.06 LYMPH x10^3 (test code = 731-0) 1.60 10*3/uL 1.32-3.29 MONO x10^3 (test code = 742-7) 0.84 10*3/uL 0.33-0.92 EOS x10^3 (test code = 711-2) 0.22 10*3/uL 0.03-0.39 BASO x10^3 (test code = 704-7) 0.03 10*3/uL 0.01-0.07 Lab Interpretation (test code = 74643-6) Abnormal [facility] URINALYSIS W/O SPECIFIC [id number] 20:09:00* Test Item Value Reference Range Interpretation Comme nts POCT PH U (test code = 3254) n/a 5-8 POCT U LEUK EST (test code = 3263) n/a Negative - Negative POCT U NIT (test code = 3262) n/a Negative - Negati ve POCT U PROT (test code = 3259) negative Negative - Negat theron POCT U GLU (test code = 3256) negative Negative - Negati ve POCT U KETONE (test code = 3258) n/a Negative - Neg ative POCT U BLD (test code = 3257) n/a Negative - Negati ve [facility] URINALYSIS W/O SPECIFIC [id number] 16:00:00* Test Item Value Reference Range Interpretation Comme nts POCT PH U (test code = 3254) N/A 5-8 POCT U LEUK EST (test code = 3263) N/A Negative - Negative POCT U NIT (test code = 3262) N/A Negative - Negati ve POCT U PROT (test code = 3259) NEGATIVE Negative - Negat theron POCT U GLU (test code = 3256) NEGATIVE Negative - Negati ve POCT U KETONE (test code = 3258) N/A Negative - Neg ative POCT U BLD (test code = 3257) N/A Negative - Negati ve [facility] URINALYSIS W/O SPECIFIC [id number] 16:00:00* Test Item Value Reference Range Interpretation Comme nts POCT PH U (test code = 3254) N/A 5-8 POCT U LEUK EST (test code = 3263) N/A Negative - Negative POCT U NIT (test code = 3262) N/A Negative - Negati ve POCT U PROT (test code = 3259) NEGATIVE Negative - Negat theron POCT U GLU (test code = 3256) NEGATIVE Negative - Negati ve POCT U KETONE (test code = 3258) N/A Negative - Neg ative POCT U BLD (test code = 3257) N/A Negative - Negati ve [facility] URINALYSIS W/O SPECIFIC [id number] 16:00:00* Test Item Value Reference Range Interpretation Comme nts POCT PH U (test code = 3254) N/A 5-8 POCT U LEUK EST (test code = 3263) N/A Negative - Negative POCT U NIT (test code = 3262) N/A Negative - Negati ve POCT U PROT (test code = 3259) NEGATIVE Negative - Negat theron POCT U GLU (test code = 3256) NEGATIVE Negative - Negati ve POCT U KETONE (test code = 3258) N/A Negative - Neg ative POCT U BLD (test code = 3257) N/A Negative - Negati ve [facility] URINALYSIS W/O SPECIFIC [id number] 16:00:00* Test Item Value Reference Range Interpretation Comme nts POCT PH U (test code = 3254) N/A 5-8 POCT U LEUK EST (test code = 3263) N/A Negative - Negative POCT U NIT (test code = 3262) N/A Negative - Negati ve POCT U PROT (test code = 3259) NEGATIVE Negative - Negat theron POCT U GLU (test code = 3256) NEGATIVE Negative - Negati ve POCT U KETONE (test code = 3258) N/A Negative - Neg ative POCT U BLD (test code = 3257) N/A Negative - Negati ve [facility] URINALYSIS W/O SPECIFIC [id number] 16:00:00* Test Item Value Reference Range Interpretation Comme nts POCT PH U (test code = 3254) N/A 5-8 POCT U LEUK EST (test code = 3263) N/A Negative - Negative POCT U NIT (test code = 3262) N/A Negative - Negati ve POCT U PROT (test code = 3259) NEGATIVE Negative - Negat theron POCT U GLU (test code = 3256) NEGATIVE Negative - Negati ve POCT U KETONE (test code = 3258) N/A Negative - Neg ative POCT U BLD (test code = 3257) N/A Negative - Negati ve [facility] URINALYSIS W/O SPECIFIC [id number] 16:00:00* Test Item Value Reference Range Interpretation Comme nts POCT PH U (test code = 3254) N/A 5-8 POCT U LEUK EST (test code = 3263) N/A Negative - Negative POCT U NIT (test code = 3262) N/A Negative - Negati ve POCT U PROT (test code = 3259) NEGATIVE Negative - Negat theron POCT U GLU (test code = 3256) NEGATIVE Negative - Negati ve POCT U KETONE (test code = 3258) N/A Negative - Neg ative POCT U BLD (test code = 3257) N/A Negative - Negati ve [facility] [id number] 18:43:00* Test Item Value Reference Range Interpretation Comme nts POCT PREG (test code = 1605) Negative On board controls acceptable with C Line (test code = 3574) Yes POCT PREG LOT # (test code = 3575) POCT PREG TEST DATE ( test code = 3576) [facility] [id number] 18:43:00* Test Item Value Reference Range Interpretation Comme nts POCT PREG (test code = 1605) Negative On board controls acceptable with C Line (test code = 3574) Yes POCT PREG LOT # (test code = 3575) POCT PREG TEST DATE ( test code = 3576) [facility] [id number] 18:43:00* Test Item Value Reference Range Interpretation Comme nts POCT PREG (test code = 1605) Negative On board controls acceptable with C Line (test code = 3574) Yes POCT PREG LOT # (test code = 3575) POCT PREG TEST DATE ( test code = 3576) [facility] [place], [place]PO[place] [id number] 15:29:00* Test Item Value Reference Range Interpretation Comme nts POCT PREG (test code = 1605) Negative On board controls acceptable with C Line (test code = 3574) Yes POCT PREG LOT # (test code = 3575) POCT PREG TEST DATE ( test code = 3576) [facility]PO[facility] [id number] 15:29:00* Test Item Value Reference Range Interpretation Comme nts POCT PREG (test code = 1605) Negative On board controls acceptable with C Line (test code = 3574) Yes POCT PREG LOT # (test code = 3575) POCT PREG TEST DATE ( test code = 3576) [facility] US TRANSVAGINAL NON [id number] 09:32:00 [facility] : 1990 Sex: F Patient Name: BROOEK THOMAS Unit No: [id number] EXAMS: CPT CODE: [id number] [place] [address] C3 TIME OF STUDY: 02/20/2021 REASON FOR EXAM: ovarain cyst COMPARISON: CT on the same date. TECHNIQUE: Transvaginal sonogram was performed. FINDINGS: Transvaginal sonogram: The uterus is anteverted.It measures 3.3 cm in length, 4.4 cm AP, and 5.1 cm transverse. No focal myometrial masses are seen. The endometrium echo stripe has a normal appearance and measures 5 mm in maximal AP dimension. IUDis present in the endometrium. The cervix is visualized and has nabothian cysts. The ovaries are well visualized and have a normal follicular appearance. The right ovary measures 2.5 x 1.7 x 1.8cm. The left measures 4.1 x 2.2 x 2.8 cm. There is a 2.2 cm dominant left ovarian follicle. Normal color f low is identified to both ovaries. No adnexal masses are identified. There is no fluid in the cul-de-sac. IMPRESSION: 1. No focal uterine masses. IUD in place in the endometrium. 2. No adnexal masses. 2.2 cm dominant left ovarian follicle, otherwise unremarkable ovaries. at 0932 Reported and signed by: Antonino Miranda MD CC: Indira MARIE Technologist: Sophy Stevenson Trnscrbd D/ (0932) t.[email or web address] Probe: [id number] Orig Print D/T:S: 02/20/2021 (0935) Probe: ELISABETH Cavanaugh NAME: [address] PHYS: [place], [place] [address] : 1990 AGE: 30 SEX: F LOC: STEPHANIE PHONE #: [phone] EXAM DATE: 02/20/2021 STATUS: REG ER FAX #: [phone] RAD NO: Page 1 Signed ReportLACTIC [id number] 09:17:00* Test Item Value Reference Range Interpretation Comme nts LACTIC ACID (test code = LACT) 2.1 mmol/L 0.4-2.0 H ON 02/20/21 AT 0 917, B.LAB.EJK CALLED TO JASSON HUNTER. The report was confirmed by read back protocols Y,N: YES. Critical values after the first occurrence are excluded. - CT ABD PELVIS W/[id number] 08:35:00 [facility] : 1990 Sex: F Patient Name: BROOKE THOMAS Unit No: [id number] EXAMS: CPT CODE: [id number] CT ABD PELVIS W/CONT 00497 EXAM: - CT ABD PELVIS W/CONT LOCATION: [...] no abnormalities. Hepatobiliary: The liver is normal w ithout focal lesion. The gallbladder is normal. No [...] 2.2 cm cystlike lesion in the left ovary.ELISABETH Cavanaugh NAME: BROOKE THOMAS [address] [place] [address] Blvd PHYS: [place], [place] [address] : 1990 AGE: 30 SEX: F LOC: B.ERS PHONE #: [phone] EXAM DATE: 02/20/2021 STATUS: REG ER FAX #: [phone] RAD #: D/C DT PAGE 1 Signed Report (CONTINUED) Patient Name: BROOKE THOMAS Unit No: [id number] EXAMS: CPT CODE: [id number] CT ABD PELVIS W/CONT [address]8312 <Continued> No evidence of obstructive uropathy. at 0835 Reported and signed by: Adelso Adler MD CC: Indira MARIE Dictated Date/Time: 02/20/2021 (834) Technologist: Orlando Burgos CTDI: 9.22 DLP: 492.32 Trnscrpt: 02/20/2021 (35) JacobHV2 ELISABETH Cavanaugh NAME: [address] PHYS:Indira Armenta [place] [address] : 1990 AGE: 30 SEX: F : CalvinPrimitivoERS PHONE #: [phone] EXAM DATE: 02/20/2021 STATUS: REG ER FAX #: [phone] RAD #: D/C DT PAGE 2 Signed Report Patient Name: BROOKE THOMAS Unit No: [id number] EXAMS: CPT CODE: [id number] CT ABD PELVIS W/CONT 18796 <Continued> Orig Print D/T: S: 02/20/2021 (0839) ELISABETH Saucedoroe NAME: [address] PHYS: [place]ira [place] [id number] : 1990 AGE: 30 SEX: F LOC: [place] PHONE #: [phone] EXAM DATE: 02/20/2021 STATUS: REG ER FAX #: [phone] RAD #: D/C DT PAGE 3 Signed [id number] 08:03:00* Test Item Value Reference Range Interpretation Comme nts LIPASE (test code = LIP) 50 Unit/L 114-286 L BASIC METABOLIC [id number] 08:03:00* Test Item Value Reference Range Interpretation Comme nts SODIUM (test code = NA) 135.0 mmol/L 133-144 N POTASSIUM (test code = K) 3.8 mmol/L 3.5-5.1 N CHLORIDE (test code = CL) 100 mmol/L 95-105 N CARBON DIOXIDE (test code = CO2) 26 mmol/L 21-32 N ANION GAP (test code = GAP) 9.0 GAP calc 4.0-15.0 N GLUCOSE (test code = GLU) 113 MG/DL 70-110 H BLOOD UREA NITROGEN (test code = BUN) 15 MG/DL 7-18 N CREATININE (test code = CREAT) 0.64 MG/DL 0.55-1.30 N Results may be depressed if patient is takingN-Acetylcystei ne (NAC) and Metamizole (Dipyrone). CALCIUM (test code = CA) 9.0 MG/DL 8.5-10.1 N INDEX HEMOLYSIS (test code = HEMINDEX) 1 NORMAL <10 MG Index/DL See_Comment [Automated message] The system which generated this result transmitted reference range: 1 NORMAL. The reference range was not used to interpret this result as normal/abnormal. INDEX ICTERIC (test code = ICTINDEX) 1 NORMAL <2 MG Index/DL See_Comment [Automated message] The system which generated this result transmitted reference range: 1 NORMAL. The reference range was not used to interpret this result as normal/abnormal. INDEX LIPEMIA (test code = LIPINDEX) 1 NORMAL <50 MG Index/DL See_Comment [Automated message] The system which generated this result transmitted reference range: 1 NORMAL. The reference range was not used to interpret this result as normal/abnormal. HEPATIC FUNCTION [id number] 08:03:00* Test Item Value Reference Range Interpretation Comme nts TOTAL PROTEIN (test code = PROT) 8.4 G/DL 6.4-8.2 H ALBUMIN (test code = ALB) 4.0 G/DL 3.4-5.0 N BILIRUBIN TOTAL (test code = BILT) 0.75 MG/DL 0.00-1.00 N BILIRUBIN DIRECT (test code = BILD) 0.19 MG/DL 0.00-0.30 N BILIRUBIN INDIRECT (test cod e = BILIND) 0.56 MG/DL 0.2-1.3 N SGOT/AST (test code = AST) 24 Unit/L 15-37 N SGPT/ALT (test code = ALT) 46 Unit/L 12-78 N ALKALINE PHOSPHATASE TOTAL ( test code = ALKP) 86 Unit/L 45-117 N CBC W/O [id number] 07:54:00* Test Item Value Reference Range Interpretation Comme nts WHITE BLOOD CELL (test code = WBC) [...] pg 25.3-35.3 N MEAN CELL HGB CONCETRATION ( test code = MCHC) 34.8 G/DL 32.7-35.1 N RED CELL DISTRIBUTION WIDTH (test code = RDW) 12.1 % 12.2-16.4 L PLATELET COUNT (test code = PLT) 287 K/mm3 155-337 N MEAN PLATELET VOLUME (test c ode = MPV) 8.8 fL 6.8-11.2 N UA RFLX MICR CULT IF [id number] 07:51:00* Test Item Value Reference Range Interpretation Comme nts UA COLOR (test code = COLU) YELLOW DESCRIPT YELLOW UA APPEARANCE (test code = APPU) TURBID (1+)HAZY-CLDY DESCRIPT CLEAR A UA GLUCOSE DIPSTICK (test code = DGLUU) NORMAL (0) mg/dL See_Comment [Automated message] The system which generated this result transmitted reference range: 0 (NORMAL). The reference range was not used to interpret this result as normal/abnormal. UA BILIRUBIN DIPSTICK (test code = BILU) NEGATIVE (0.0) mg/dL See_Comment [Automated message] The system which generated this result transmitted reference range: (NEG) 0. The reference range was not used to interpret this result as normal/abnormal. UA KETONE DIPSTICK (test code = KETU) NEGATIVE (0) mg/dL See_Comment [Automated message] The system which generated this result transmitted reference range: (NEG) 0. The reference range was not used to interpret this result as normal/abnormal. UA SPECIFIC GRAVITY (test code = SGU) 1.026 SG 1.001-1.035 UA BLOOD DIPSTICK (test code = WILLIAM) NEGATIVE (0.00) mg/dL See_Comment [Automated message] The system which generated this result transmitted reference range: 0 (NEG). The reference range was not used to interpret this result as normal/abnormal. UA PH DIPSTICK (test code = JEFF) 6.5 pH UNITS 4.6-8.0 UA PROTEIN DIPSTICK (test code = PROU) NEGATIVE (0) mg/dL See_Comment [Automated message] The system which generated this result transmitted reference range: <30 (1+). The reference range was not used to interpret this result as normal/abnormal. UA UROBILINIOGEN DIPSTICK (test code = URO) NORMAL (0) mg/Dl See_Comment [Automated message] The system which generated this result transmitted reference range: <2.0 (1+). The reference range was not used to interpret this result as normal/abnormal. UA NITRITE DIPSTICK (test code = MIRYAM) NEGATIVE (0) SCREEN NEG UA LEUKOCYTE ESTERASE DIPSTICK (test code = LEUU) 250 Leuk/mcL See_Comment A [Automated message] The system which generated this result transmitted reference range: (NEG) 0. The reference range was not used to interpret this result as normal/abnormal. UA COMMENT (test code = COMU) CLEAN CATCH SPEC NoteSPEC SpecComment UA WBC (test code = WBCU) 3-5 #WBC/HPF 0-3 UA RBC (test code = RBCU) 0-3 #RBC/HPF 0-3 UA BACTERIA (test code = BACU) MODERATE >5 /HPF NONE-FEW A UA SQUAMOUS CELLS (test code = SQU) MANY >20 /UL NONE-SQepi UA MUCUS (test code = MUCU) RARE /LPF NONE UA AMORPHOUS SEDIMENT (test code = AMORU) RARE >0 #/mcL NONE-FEW UA CULTURE NEEDED? (test code = UACULT) Crit NOTmet CULT-N/A Criteria [facility] Spec[facility] comments: ccIndication for culture: Suprapubic PainUR HCG QUAL 2021-02-20 07:51:00* Test Item Value Reference Range Interpretation Comme nts UR HCG QUAL (test code = HCGQLU) NEGATIVE NEG Very dilute urin es with a low specific gravity may notcontain new accounts representative levels of hCG. Specimen comments: ccIndication for culture: Suprapubic Pain- XR ELBOW 3 + V LT 2018-06-06 18:55:00FAX: Ortega Barrera MD [phone] [place]: St: [facility] FAX: Swapnil Smith NP [phone] ----- Patient Name: BROOKE SYKES Unit No: [id number] EXAMS: CPT CODE: [id number] XR ELBOW 3 + [place] [address] EXAMINATION: - XR FOREARM 2 VIEWS LT, - XR ELBOW 3 + V LT. LOCATION: B2. HISTORY: fall. COMPARISON: None. TECHNIQUE:AP, lateral, and oblique views of the left [...] By: [email or web address] Orig Print D/T: S: 06/06/2018 (922) ELISABETH Cavanaugh NAME: BROOKE SYKESOLE [address] [place] [address] PHYS: [email or web address] - Swapnil Gonzalez NP, [address]: 1990 AGE: 28 SEX: F LOC: STEPHANIE PHONE #: [phone] EXAM DATE: 06/06/2018 STATUS: REG ER FAX #: [phone] RAD NO: DC Dt: PAGE 1 Signed Report- XR FOREARM 2 VIEWS [id number] 18:55:00 FAX: Ortega Barrera MD [phone] [place]: St: REG FAX: Swapnil Smith NP [phone] ---- Patient Name: BROOKE SYKES Unit No: [id number] EXAMS: CPT CODE: [id number] XR FOREARM [address] [place] [id number] EXAMINATION: - XR FOREARM 2 VIEWS LT, [...] at 1855 Reported and signed by: Pau Iglesias ei, MD CC: Swapnil Gonzalez NP Dictated Date/Time: 06/06/2018 (1854)Technologist: Elise Stark Transcribed Date/Time: 06/06/2018 (1854) By: [email or web address] Orig Print D/T: S: 06/06/2018 (1858) ELISABETH Cavanaugh NAME: BROOKE SYKES [address] [place] [address] PHYS: WEIJA.01 - Swapnil Gonzalez NPcarisa [facility] [address] : 1990 AGE: 28 SEX: F LOC: STEPHANIE PHONE #: [phone] EXAM DATE: 06/06/2018 STATUS: REG ER FAX #: [phone] RAD NO: DC Dt: PAGE 1 Signed Report- XR HAND 3 + V [id number] 18:54:00FAX: Ortega Barrera MD [phone] [place]: St: REG FAX: Swapnil Smith NP [phone] ----- Patient Name: BROOKE SYKES Unit No: [id number] EXAMS: CPT CODE: [id number] XR HAND 3 + [place] [address] EXAMINATION: - XR WRIST 3 + V [...] 06/06/2018 (1856) ELISABETH Cavanaugh NAME: BROOKE SYKES [address] [place] [address] PHYS: TERE.01 - Swapnil Gonzalez NP, [place] [address] : 1990 AGE: 28 SEX: F LOC: STEPHANIE PHONE #: [phone] EXAM DATE: 06/06/2018 STATUS: REG ER FAX #: [phone] RAD NO: DC Dt: PAGE 1 Signed Report- XR WRIST 3 + V [id number] 18:54:00FAX: Ortega Barrera MD [phone] [place]: St: REG FAX: Swapnil Smith NP [phone] ----- Patient Name: BROOKE SYKES Unit No: [id number] EXAMS: CPT CODE: [id number] XR WRIST 3 + [place] [address] EXAMINATION: - XR WRIST 3 + V [...] 06/06/2018 (1856) ELISABETH Cavanaugh NAME: BROOKE SYKES [address] [place] [address] PHYS: WEIJA. - Swapnil Gonzalez NPRylee [address] : 1990 AGE: 28 SEX: F LOC: BPrimitivoCLARISSE PHONE #: [phone] EXAMDATE: 06/06/2018 STATUS: REG ER FAX #: [phone] RAD NO: DC Dt: PAGE 1 Signed Report- XR HUMERUS 2 + V [id number] 18:51:00FAX: Otrega Barrera MD [phone] [place]: E St: REG FAX: Swapnil Smith NP [phone] ----- Patient Name: BROOKE SYKES Unit No: [id number] EXAMS: CPT CODE: [id number] XR HUMERUS 2 + V LT [address]62 EXAMINATION: -XR HUMERUS 2 + V LT. [...] [email or web address] Orig Print D/T: S: 06/06/2018 (1854) RONALDgaby NAME: BROOKE SYKES [address] [place] [address] PHYS: 01 - Swapnil Gonzalez NP [place], [place] [address] : 1990 AGE: 28 SEX: F LOC: STEPHANIE PHONE #: [phone] EXAM DATE: 06/06/2018 STATUS: REG ER FAX #: [phone] RAD NO: DC Dt: PAGE 1 Signed Report- XR SHOULDER 2 + V [id number] 18:50:00FAX: Ortega Barrera MD [phone] [place]: E St: REG FAX: Swapnil Smith NP [phone] ----- Patient Name: BROOKE SYKES Unit No: [id number] EXAMS: CPT CODE: [id number] XR SHOULDER 2 + V [place] [address] EXAMINATION:- XR SHOULDER 2 + V LT. LOCATION: B2. HISTORY: fall. COMPARISON: None. TECHNIQUE: Internal rotation, external rotation, and scapular Y views of the left shoulder were obtained. FINDINGS: No acute fracture or dislocation is identified. Soft tissue structures appear within normal limits. IMPRESSION:No acute osseous abnormality is identified. at 1850 Reported and signed by: Pau Cardenas MD CC: Swapnil Gonzalez NP Dictated Date/Time: 06/06/2018 (1849)Technologist: Elise Stark Transcribed Date/Time: 06/06/2018 (1849) By: Tavo.PR7 Orig Print D/T: S: 06/06/2018 (1852) ELISABETH Cavanaugh NAME: BROOKE SYKES [address] [place] [address] PHYS: NIRISABEL. Swapnil Gonzalez [place], [place] [address] : 1990 AGE: 28 SEX: F LOC: STEPHANIE PHONE #: [phone] EXAM DATE: 06/06/2018 STATUS: REG ER FAX #: [phone] NO: DC Dt: PAGE 1 Signed Report Notes Date/Time Note Provider Source 2023-09-25 11:30:00 8895-68-65I46:30:00 Given 50gm fruit punch glucola. Finished at 1139. 55515-4Brrhh ZylvBQ7213-15-78S93:40:09Nurse NoteTXT1.2.840.793332.1.13.104.2.7.2 .310515|[id number] for patient fzkz98283-0Rupqw NoteLNNARRATIVEFormatted C-CDA narrative [id number] ZIEMFLBKGNVDCKIAJLQYBF4199-11-36L84: 40:091.2.840.825089.1.72.3.15|1.2.84 0.183977.1.13.104.2.7.2.727879_21206 [address] [facility] 2023-09-25 11:30:00 1455-78-09J37:30:00 Images from the original note were not included.Venipuncture collection performed by clean technique on the left anticubitus. Total of 1 attempts were made. Slight pressure and a bandage/dressing were applied to the site(s). The patient experienced no complications. The following specimens were processed according to instructions and sent to [facility] laboratories per lab order on 09/25/2023 :LT BLUESST 1REDLAV 2PPTDK GREEN (LiHep)DK GREEN (SodH)GRAYDK BLUE (K2)DK BLUE (S)ACDBlood CultureNIPT/NTD 85511-3Qccux DfhsVQ1447-68-14R02:41:54Nurse NoteTXT1.2.840.691390.1.13.104.2.7.2 .565774|[id number] for patient praj92998-4Mqbjt NoteLNNARRATIVEFormatted C-CDA narrative [id number] MPDOTJBPLXOJYHIKDHPFDV6611-71-90Y27: 41:541.2.840.900630.1.72.3.15|1.2.84 0.248797.1.13.104.2.7.2.727879_21207 [address] [facility] 2023-09-21 16:15:00 6488-16-10C27:15:00 Images from the original note were not included.Patient gave permission to stick more that twice.Unable to collect some test an will be back to for the rest.Venipuncture collection performed by clean technique on the both forearm(s) and both hand. Total of 5 attempts were made. Slight pressure and a bandage/dressing were applied to the site(s). The patient experienced no complications. The following specimens were processed according to instructions and sent to [facility] laboratories per lab order on 09/21/2023:LT BLUE4 SST1 REDLAVPPTDK GREEN (LiHep)DK GREEN (SodH)GRAYDK BLUE (K2)DK BLUE (S)ACDBlood CultureNIPT/NTDPatient has been identified by and name and was provided with cup, antiseptic towelette, and clean catch instructions. 2 urine specimen(s) sent.2 UnpreservedUrine CultureAptima tubeOther urine 41046-9Wkfej NknwJH9649-99-92V00:36:10Nurse NoteTXT1.2.840.932830.1.13.104.2.7.2 .382363|[id number] for patient lefr36217-7Kvmnv NoteLNNARRATIVEFormatted C-CDA narrative [address] Nh[id number] JIWDNLIHAKTNNLGEVJEBGW9325-12-79L80: 36:101.2.840.760013.1.72.3.15|1.2.84 0.141254.1.13.104.2.7.2.727879_21185 [address] [facility] 2023-09-14 15:00:00 9152-83-09K43:00:00 Age: 33 year oldGA: 13e5cLgjxy wellFactor 5 Leiden mutation, heterozygous- dx following son with stroke, the child was homozygous- No personal history of DVT- Prescribed lovenox "one shot per day" during second full term in 2016 and in 2022- She does not take daily anticoagulation outside of -on prophylactic LovenoxHistory of Drug useSuboxone maintenance treatment-patient is seeing provider once a month- on suboxone 8/2 mg sublingual filmNew OB labs not completed yet. Will do it this weekendNext visit in 4 week 12149-7Mnwyfcce ubezPN2596-45-93K42:05:15Progress noteTXT1.2.840.507150.1.13.104.2.7.2 .090094|[id number] for patient xxku13142-8LqgrUELRWNOCOXRAyztskbdj C-CDA narrative textUT[address] StreetKyrqW[id number] BJRKGZBWJTKCQCZJQBSSCZ6020-94-57A86: 05:151.2.840.860047.1.72.3.15|1.2.84 0.978669.1.13.104.2.7.2.727879_21125 [address] [facility] 2023-09-06 16:04:11 8528-79-24W80:04:11 Sydney results received via fax.Panorama- low risk, femaleHorizon- negative for 14 out of 14 diseasesSpoke with patient, name and verified. Patient informed of results including gender. Results signed, will scan and upload a copy to [employer].Bev Gil RN 09/06/2023 4:04 PM 61399-4Jmtmdmymo encounter MzhpVQ5613-00-45C57:04:26Telephone encounter NoteTXT1.2.840.973129.1.13.104.2.7.2 .669097|[id number] for patient qhvb74114-2KpcvESRJTXUCAUHYzmumwolg C-CDA narrative text[id number] GAFDWODUDPKMYHKAPNYHCE6818-82-03V32: 04:261.2.840.789048.1.72.3.15|1.2.84 0.170734.1.13.104.2.7.2.727879_21069 [address] [facility] 2023-09-05 16:03:03 4860-65-46T53:03:03 Attempted to contact patient by phone to provide test results, no answer, message left on voicemail to call back.Bev Gil RN 09/05/2023 4:03 PM 45959-6Pxjejfizc encounter AeneAO4417-48-35L76:03:42Telephone encounter NoteTXT1.2.840.195040.1.13.104.2.7.2 .771283|5787851801WKIugdkgkri for patient hxog64607-9ZkvdYXELJRHMCZIYaplouamn C-CDA narrative [id number] NDNNGJSULXASVCSKXZMFEZ7489-90-38F32: 03:421.2.840.046036.1.72.3.15|1.2.84 0.222596.1.13.104.2.7.2.727879_21059 [address] [facility] 2023-09-03 19:34:20 4867-41-33M53:34:20 Pt given printed and verbal discharge paperworkPt awake alert oriented, resp reg unlabored, skin w/d, color appropriate for race, moves all ext well,pt encouraged to follow up with OBAdvised to seek medical attention for new/prolonged/worsening of symptomsAwake, alert oriented, resp reg unlabored, skin w/d, pt leaving amb with steady gait, in no apparent distress 81520-4Hflixsmee department NvfvAH1825-02-89K95:35:54[facility] department NoteTXT1.2.840.589686.1.13.104.2.7.2 .737589|3524109771QSHdyuoczcf for patient qbsb17095-8MnsqNOYMGLNGNNKPwhqwytpl C-CDA narrative bpiy186631047Nvajhxo E Tyler RN[id number] TPNLFAZOPPIYFSLZEXJBOZ5450-39-14L14: 35:541.2.840.867441.1.72.3.15|1.2.84 0.008349.1.13.104.2.7.2.727879_21038 92696 Марина Soria RN [facility] 2023-09-03 19:15:17 5226-86-27F63:15:17 Pt arrived ambulatory without assist.Pt states " When I went number two I saw things in the toilet and when I looked it up online it said it could have been a parasite from eating under cooker food. I am having pain in stomach."No bleeding, cramping, vaginal discharge.G4 T3 Dr.Paula at [facility] 94561-8Ldsgufpbl department Triage zdouVC8270-70-65A68:18:21Emerveter[facility] department Triage noteTXT1.2.840.830160.1.13.104.2.7.2 .908573|[id number] for patient scwn90269-4Aupgjboir department NoteLNNARRATIVEFormatted C-CDA narrative ccwi605861573HwvmrViji Mcdonald RN[id number] XVVLDGUTPQBSOSWSNSABLF9241-93-98P41: 18:211.2.840.801457.1.72.3.15|1.2.84 0.609211.1.13.104.2.7.2.727879_21038 98780 Viji Mcdonald RN [facility] - Health 2023-09-03 19:12:00 5203-83-63V19:12:00 [facility] Emergency Department NotePatient Name: Brooke Gusman of : 1990 33 year old femaleTreatment Room: Room/bed info not foundMedical Record Number: [id number] Care Physician: Amena BetancourtPatient Escorted by: Self [9]Mode of Arrival: Personal means [1]EMS Treatment 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 She reports that she used the restroom at work today she thinks something came out that had legs. She is worried she might have some type of parasite. She denies abdominal pain. No vomiting. No diarrhea. She is currently 12 weeks and is 4 para 3-0-0-3. No abdominal pain or vaginal bleeding. She follows with Dr. Paula here at [facility]. She is compliant with her vitamins. No recent trips or travel. No bad food exposure. No sick contacts.Here for evaluation.Past Medical History/Immunizations:Past Medical History:Diagnosis DateAnemia of mother in , antepartum 02/14/2023Endometriosis determined by laparoscopyFactor 5 Leiden mutation, heterozygouslovenx during pregnancyLate menses 11/12/2021Narcolepsy 1998d/cd medsPap smear abnormality of cervixScreening examination for STD (sexually transmitted disease) 11/12/2021uboxone maintenance treatment complicating , antepartum 02/22/2022Tetanus received in last 5 years: YesAllergies:AllergiesAllergen ReactionsAmoxicillin ItchingPast Social History:Tobacco UseFormer; Cigarettes: 2008 - 2021; Smoked an average of 0.5 packs/day for 13.0 yearsSmokeless Tobacco: Never used smokeless tobacco.Vaping UseEvery day; Substances: Nicotine, Flavoring; Devices: DisposableAlcohol UseNever.Drug UseNever.Sexual ActivitySexually active; Partners: Male; Control/Protection: None.Comments: last intercourse: 06/05/2022ast Surgical History:Past Surgical History:Procedure Laterality DateCOLONOSCOPYCONIZATION CERVIX,LOOP ELECTRDLAP,SALPINGOSTOMYUPPER GI ENDOSCOPYReview of Systems:Review of SystemsConstitutional: Negative for chills and fever.Respiratory: Negative for cough and shortness of breath.Cardiovascular: Negative for chest pain.Gastrointestinal: Negative for abdominal pain, nausea and vomiting.Genitourinary: Negative for dysuria.Musculoskeletal: Negative for arthralgias, neck pain and neck stiffness.Skin: Negative for wound.Neurological: Negative for dizziness.Psychiatric/Behavioral: Negative for agitation.Physical Exam:ED Triage Vitals [09/03/238]Weight 79.4 kg (175 lb)Actual or estimated Estimated by patient/family reportHeight 1.626 m (5' 4")BP 129/78Pulse 84Resp 18Temp 36.8 ?C (98.2 ?F)Temp source OralSpO2 100 %Measured onPhysical ExamRadiology:No orders to displayLab Results:Lab Results - No data to displayEKG:If EKG completed, see Procedure Note.Orders and Treatments:No orders of the defined types were placed in this encounter.No orders of the defined types were placed in this encounter.First Provider Eval:ED EventsNoneED COURSEDiagnosis/Impression as of 09/03/23 1930Worried wellProcedures:ProceduresLimited Transabdominal UltrasoundIndications: , abdominal pain and/or bleedingFindings: SIUP with EGA 13 weeks 1 days and FHT 158 bpm. No free fluid. Adnexa not visualized.Interpretation: SIUPMDM:Medical Decision MakingThe patient presents from home for evaluation for concern she may have a parasite. She reports she had a bowel movement while at work today and thinks that something came out of her that had legs. No recent trips or travel. No bad food exposure. No sick contacts. No abdominal pain. No nausea or vomiting. She is currently at approximately 12 weeks along and is 4 para 3-0-0-3. No vaginal bleeding or discharge.Vital signs are stable in the ER.Her abdomen is soft and nontender.A limited bedside transabdominal ultrasound shows single intrauterine of approximately 13 weeks and 1 day gestation with heart rate of 158.She remained stable here in the ER and is okay for discharge home with PCP follow-up.Problems Addressed:Worried well: acute illness or injuryRiskOTC drugs.Flowsheet Documentation:Scoring Tools:No data recordedDisposition/Condition:ED DispositionED DispositionDisch - HomeConditionStableComment--Discharg e Medications:Patient's MedicationsSTART taking these medicationsNo medications on fileCONTINUE taking these medications which have NOT CHANGEDBUPRENORPHINE-NALOXONE 8-[address] 1 FILM UNDERNEATH TONGUE EVERY DAY. ALLOW TO DISSOLVE SLOWLY IN MOUTH WITHOUT CHEWING OR SWALLOWINGDOXYLAMINE-PYRIDOXINE, VIT B6, (DICLEGIS) 10-10 MG PER TABLET 1 tab@HS.If not effective,2 tab@HS.If not effective,2 tab@HS&1 tab in AM.If not effective,2@HS,1 in AM,&1 in early PM. Max: 4 tab/day.ENOXAPARIN 40 MG/0.4 ML INJECTION inject 0.4 mL under the skin every 24 (twenty-four) hours for 30 days.METHYLPHENIDATE HCL 5 MG TABLET Take 5 mg by mouth in the morning and 5 mg at noon and 5 mg in the evening.METOCLOPRAMIDE HCL 10 MG TABLET Take 1 tablet by mouth every 6 (six) hours as needed for Nausea and Vomiting (N/V).PNV 67-IRON PS-FOLATE NO.1-DHA (VITAFOL ULTRA) 29 MG IRON- 1 MG-200 MG CAP Take 1 capsule by mouth in the morning.START taking Modified Medications as PrescribedNo medications on fileSTOP taking these medicationsNo medications on fileFollow-up:Electronically signed by:Nadeen Davis DO09/03/23 1930 78029-1Owhmpdbgg Emergency department LvgfIR0015-33-74J47:30:26Physician Emergency department NoteTXT1.2.840.912680.1.13.104.2.7.2 .310244|[id number] for patient akfz08905-8Tmoadkors department NoteLNNARRATIVEFormatted C-CDA narrative Jaree[id number] EYOYPDFRQCXMIRLHSELDOO8258-77-23O16: 30:261.2.840.686786.1.72.3.15|1.2.84 0.703217.1.13.104.2.7.2.727879_21038 [address] [facility] 2023-09-03 12:06:04 8296-32-79W69:06:04 Per provider, patient to go to urgent care or pcp to be evaluated. Patient notified, does not have pcp, going to urgent care.Bev Gil RN 09/03/2023 12:06 PM 55353-7Rstpxalha encounter DdvbDE4181-47-77F42:07:13Telephone encounter NoteTXT1.2.840.396001.1.13.104.2.7.2 .756017|5285632457BDHnhjdjdwz for patient injp25044-7CczsUHYILNALNMDWcslqrwao C-CDA narrative [id number] NFNXLHPVJWFEXMLACXQCRP7064-23-24G35: 07:131.2.840.035779.1.72.3.15|1.2.84 0.019265.1.13.104.2.7.2.727879_21034 [address] [facility] 2023-09-03 11:56:46 4930-59-66A93:56:46 Spoke with patient, states that she went to restroom, had BM, noticed in toilet what looked to be like a small parasite. Patient states it was small and looked like a shrimp, had legs. Patient is concerned. Denies any symptoms currently. Patient would like to be seen for piece of mind. Appt scheduled.Bev Gil RN 09/03/2023 12:00 PM 57465-9Ygjvsxrfl encounter RppwLB9016-15-48S84:00:18Telephone encounter NoteTXT1.2.840.548836.1.13.104.2.7.2 .206372|4816160878YKMuyxdetfa for patient snaf51885-5RrwoPMOSLGGVTJWWajzmgqni C-CDA narrative textUT[address] UrurSpyjgevouWtozunqpcKICK1179617669 WMECPTLHYPJUQKLCRMTDMM6319-39-16Y93: 00:181.2.840.055994.1.72.3.15|1.2.84 0.493085.1.13.104.2.7.2.727879_21034 85[address] [facility] 2023-08-24 09:45:00 7195-38-92N34:45:00 Sydney kit TRK # [id number] signed by Mary Kay Tejada at 08/24/2023 10:19 AM QPE87176-3Ymccr DsatHW9401-72-51W09:19:05Nurse NoteTXT1.2.840.174758.1.13.104.2.7.2 .424079|1100317639WFVdwubsghn for patient jlig70417-8Xjycl NoteLNNARRATIVEFormatted C-CDA narrative cyyc802121628Vwrmod Alex Tejada[address] StreetWpgpAgiiomirxRxlqxkcwsRPTR2420222663 XKYIEUMBGATGHACDDVUNYX8107-13-28V57: 19:051.2.840.218145.1.72.3.15|1.2.84 0.312224.1.13.104.2.7.2.727879_20960 12450 Mary Kay Tejada [facility] 2023-08-24 09:45:00 7274-63-14I77:45:00 Collecting Sydney kit only today 46982-5Abukt UoqsJH0066-71-04H84:19:05Nurse NoteTXT1.2.840.321628.1.13.104.2.7.2 .625515|[id number] for patient xiqr64440-2Lqgag NoteLNNARRATIVEFormatted C-CDA narrative text[id number] VPVCBJOVZQSOOICBZIPWWL8424-28-43O10: 19:051.2.840.811407.1.72.3.15|1.2.84 0.417009.1.13.104.2.7.2.727879_20960 15857 [facility] 2023-08-17 10:00:00 9917-46-00O60:00:00 Age: 33 year oldGA: 11w1d by Patient's last menstrual period was 05/31/2023 (approximate).Nausea without vomiting-Reports taking doxylamine with relief-Diclegis/Reglan ordered-Avoid triggersPatient currently pumping every 3-4 hours. Advised to start weaning.Factor 5 Leiden mutation, heterozygous- dx following son with stroke, the child was homozygous- No personal history of DVT- Prescribed lovenox "one shot per day" during second full term in 2017 and in 2022- She does not take daily anticoagulation outside of -Prophylactic Lovenox prescribedHistory of Drug useSuboxone maintenance treatment-Will discuss at next visitTransabdominal USG for FHT: Single live IUP measured 10 1/7 weeks, consistent with LMP. Will date by Patient's last menstrual period was 05/31/2023 (approximate). unless clinically indicated otherwiseNew OB labs today. No complaints. Discussed do's and don'ts of , safe foods, safe medications. Reviewed Zika virus precautions. I discussed the call schedule and that I might not be the physician delivering her. I discussed I deliver my patients at [facility]. Expectations for weight gain this include 11-20 pounds. Encouraged to call if have any additional questions or concerns. Discussed aneuploidy and carrier screening; patient opts for panorama/Horizon.Have received 2 doses of COVID vaccines.Had flu vaccinesDiscussed about COVID-19/flu precautions. Social distancing, frequent hand washings, wearing face mask, signs/symptoms for testing and to follow CDC recommendations discussed.Discussed with patient that she can have HEALTHY support with her during her delivery (which is subject to change depends on the COVID pandemic)Next visit in 4 week 78475-1Ttozmnzd tdlmDN3565-64-13F20:25:43Progress noteTXT1.2.840.952532.1.13.104.2.7.2 .171452|9557573856DIHkvnfpnlc for patient gior20997-5EffpTGNLTRTOSVANpwjmblxs C-CDA narrative textUT[address] LjjcYguxpwuybSfkxgjqtySKTD8788791715 OQPPDOWUDNWXSUZUZLSINI6873-14-40Z21: 25:431.2.840.380923.1.72.3.15|1.2.84 0.250798.1.13.104.2.7.2.727879_20906 08259 [facility] 2023-04-18 13:47:36 7605-80-62E12:47:36 Brooke Thomas is a 33 year old femalePatient called to reschedule L consult with PGYPlease contact pt atTelephone Information: Ctztvkjlbnaaem signed by Jagruti Saravia at 04/18/2023 1:48 PM IKN46710-5Tdqmhcsgt encounter YlyqDI9726-11-88O53:48:18Telephone encounter NoteTXT1.2.840.669080.1.13.104.2.7.2 .574709|5238657071UICzpdvoaqq for patient fmeu18486-4QgsoQLZRXXSSUXSXspagngeu C-CDA narrative bcij329138951Vpizludeb Alex [id number] GHIPOIGVVQFSGDYMLOUERF0443-73-16K05: 48:181.2.840.502191.1.72.3.15|1.2.84 0.159915.1.13.104.2.7.2.727879_19908 72088 Jagruti Johnson Manjit [facility] 2023-03-14 09:28:37 0754-65-69V22:28:37 Spoke with patient and let her know that she had to get forms from her employer for provider to fill out. 00830-9Zdhpkdyxa encounter EszyBZ7583-44-53I91:29:07Telephone encounter NoteTXT1.2.840.227012.1.13.104.2.7.2 .587581|2864601778NFBwicjmcxj for patient uqrs14517-1FhpjFVTWZRGPKOYEnmvogbei C-CDA narrative msfx79771416Yskozcv [id number] CILJHKBGXMOUQJOJFNVFHQ7929-09-30G79: 29:071.2.840.881345.1.72.3.15|1.2.84 0.845172.1.13.104.2.7.2.727879_19632 08451 Gagan Meza [facility] 2023-03-01 14:17:09 0467-29-20O50:17:09 Spoke with patient and she was given the status of the pre-certification. 64773-4Menqcgpio encounter FcnkID8238-02-21X24:17:48Telephone encounter NoteTXT1.2.840.923100.1.13.104.2.7.2 .108847|3839274113EWRugruwqfh for patient wqid76134-9LysfEKVLIGDSNDDUcerenocn C-CDA narrative udmy32151758Lyxhuhn [id number] KKXHCDGNHHNIPFGFQFZTEB9734-37-44E00: 17:481.2.840.227786.1.72.3.15|1.2.84 0.919549.1.13.104.2.7.2.727879_19549 89175 Gagan Meza [facility] 2022-12-12 14:10:33 8124-57-43Y83:10:33 Noted. 15993-4Gwqrswxea encounter TzqbLE0750-12-59K37:10:48Telephone encounter NoteTXT1.2.840.197066.1.13.104.2.7.2 .320853|8798807233HFEgrbavgor for patient rmzs43032-2PgygHS807150853Gsyjfwqk Garcia [id number] AWCIQNHLDTHQCHBUTEZALC8591-22-45U21: 10:481.2.840.120241.1.72.3.15|1.2.84 0.508971.1.13.104.2.7.2.727879_18862 58921 Lilian Quinonez [employer] [facility] 2022-12-12 13:56:02 3586-40-25B16:56:02 Patient in clinic for USG stating that she has been in the ER for vomiting all night; states that she just wants to feel better. Scheduled patient to be seen today at 2:00 with provider. 77093-1Plrdwwvhw encounter TwvdVL0808-20-65V40:03:26Telephone encounter NoteTXT1.2.840.002121.1.13.104.2.7.2 .675260|[id number] for patient [id number] [address] Qx[id number] VQJSEDWGRXIUZNOMINPXYP4317-73-04W43: 03:261.2.840.152483.1.72.3.15|1.2.84 0.741031.1.13.104.2.7.2.727879_18862 00544 Gagan Meza [facility] 2022-11-17 12:52:37 4291-06-73O80:52:37 Notified patient of low risk NIPT results. No further questions or testing desired at this time. Results released to patient via [employer] portal. 60249-5Ahmrtabkc encounter UmetGB6460-20-58K58:55:20Telephone encounter NoteTXT1.2.840.847974.1.13.104.2.7.2 .631971|[id number] for patient [id number] [address] [id number] SUAWXOFJZVRQBFXZYTAVUT6439-92-08I05: 55:201.2.840.752600.1.72.3.15|1.2.84 0.465463.1.13.104.2.7.2.727879_18668 [id number] Amber AmandaFormerly [facility]22-[facility]10 13:35:01 6095-37-84B01:35:01 Pt in clinic for labs, discussed problem list with patient. Pt was seen by genetic counselor and reports all questions answered. Verbalized understanding.Lorna Tucker RN 11/10/22 1:35 PM 80050-9Wiwvenbxq encounter ZogaMK2914-59-83E56:35:48Telephone encounter NoteTXT1.2.840.683788.1.13.104.2.7.2 .[id number] for patient [id number] DRVDCVMRHSYSQRQSKIRLOU9286-09-64A34: 35:481.2.840.941120.1.72.3.15|1.2.84 0.632147.1.13.104.2.7.2.727879_18613 19080 [facility] 2022-11-10 11:43:08 9139-49-15I04:43:08 Suboxone maintenance treatment complicating , antepartumThat was put on her problem list by amena betancourt her pcp. Is she not on suboxone treatment anymore? If not I can put a comment on her problem. What labs does she have question about?CAROLYNE Mueller 11/10/2022 11:44 AM 03796-3Kdlttcjvp encounter JqkcIC8558-83-94H79:44:58Telephone encounter NoteTXT1.2.840.722919.1.13.104.2.7.2 .548393|[id number] for patient [id number] MTXMQPPQYALYVRRZFUURCM5176-15-64L10: 44:581.2.840.005245.1.72.3.15|1.2.84 0.001228.1.13.104.2.7.2.727879_18612 [id number] [facility] 2022-11-10 10:04:57 9509-62-70T86:04:57 Called pt x 2. No answer. No vm box set up.Lorna Tucker RN 11/10/22 10:05 AM 17735-9Oebkdghqw encounter VjncJZ0149-73-74C44:06:21Telephone encounter NoteTXT1.2.840.651854.1.13.104.2.7.2 .596836|[id number] for patient [id number] LQPXHOVBAORBWHZEGIJOLQ0159-81-18W78: 06:211.2.840.315620.1.72.3.15|1.2.84 0.765671.1.13.104.2.7.2.727879_18610 15584 [facility] 2022-11-10 08:50:02 3708-24-31G03:50:02 Pt requesting call back, states she was looking through her MyChart results and would like clarification. Please call [phone]. 08808-2Tbvvqjucj encounter NrfqFE7742-42-42B03:51:44Telephone encounter NoteTXT1.2.840.431032.1.13.104.2.7.2 .675010|[id number] for patient hdfg4194214Xofkx L [id number] GGGHFEMPPEMSRTYOWNHYQH2629-24-87R41: 51:441.2.840.066180.1.72.3.15|1.2.84 0.019840.1.13.104.2.7.2.727879_18610 43607 Clarisa Johnson [facility] 2022-11-07 15:53:06 9940-63-48L93:53:06 Called pt, pt asking if quad screen wnl, advised no quad screen drawn. Advised pt she is out of the gestational window for quad screen. Pt has genetics appt on 11/10/2022, advised pt to keep appt to discuss genetic lab options outside of the quad screen. Pt verbalized understanding. Lorna Tucker RN 11/07/22 3:54 PM 69543-1Ootnfzqas encounter AaeuBX7154-93-17T12:55:21Telephone encounter NoteTXT1.2.840.944265.1.13.104.2.7.2 .359648|[id number] for patient [id number] TMLRMVBATMCDHYCLEVZMQE1776-23-29H88: 55:211.2.840.225062.1.72.3.15|1.2.84 0.928557.1.13.104.2.7.2.727879_18584 [id number] [facility] 2022-11-07 15:35:55 1509-22-50K28:35:55 Brooke Thomas is a 32 year old femalePt is calling wanting to know if genetic testing is normal or if there [place] something [place] [address]-5Pzjzyevwh encounter AwmwWJ2650-97-01M50:36:51Telephone encounter NoteTXT1.2.840.920316.1.13.104.2.7.2 .987232|[id number] for patient [id number] M Cook[address]Gy[id number] DYEFQIPGZUNMETDYEPMUZM0787-23-33T17: 36:511.2.840.663528.1.72.3.15|1.2.84 0.884448.1.13.104.2.7.2.727879_18584 [id number] Silva Coleman [facility] 2021-02-20 07:25:00 [id number] KgFHwCnfrd+/k+U7zIpzXho+3kmgFbskmXfK hNgZ7684-40-21V32:25:00 [facility] PROVIDER REPORTREPORT#:[id number] REPORT STATUS: SignedDATE:02/20/21 TIME: 724 PATIENT: BROOKE THOMAS UNIT #: [id number]#: [id number] ROOM/BED:AGE: 30 SEX: F PCP PHYS: No Primary or Family PhysicianSERVICE AUTHOR: Indira Tyler * ALL edits or amendments must be made on the electronic/computer document * Indira Tyler 02/20/21724:HPI-Abd Pain F Under 40 GeneralConfirmed [...] IUD. Free Text HPI NotesFree Text HPI Cgfzb88-yymc-ych female with past medical history of depression, [...] 02/20 1030 O2 Delivery Room air 02/20 103 Temp 98.6 02/20 103 Pulse 80 02/20 1030 Resp 16 02/20 [...] - 8.0 pH UNITS) 6.5 Ur Specific [place] (1.001 - 1.035 SG) 1.026 Urine Protein [...] Impressions:CAT SCAN - CT ABD PELVIS W/CONT 11/07 0812 Report Impression - Status: SIGNED Entered: 02/20/2021 0839 IMPRESSION: 2.2 cm cystlike lesion in the left ovary. No evidence of obstructive uropathy.Impression By: [email or web address] - Adelso Adler MDULTRASOUND - US TRANSVAGINAL NON OB 02/20 0851 Report Impression - Status: SIGNED Entered: 02/20/2021 0935 IMPRESSION: 1. No focal uterine masses. IUD in place in the endometrium.2. No adnexal masses. 2.2 cm dominant left ovarian follicle, otherwiseunremarkable ovaries.Impression By: [email or web address] - Antonino Miranda MD Lab Imaging StatementLaboratory radiographic studies [...] a CAT scan viraj done.Time of Re-Eval 08)( Re-Eval Status UnchangedPlan Post Re-Eval Additional diag [...] discharge instructions. ED CourseMedication(s) OrderedMedication(s) Ordered:Anti-Infective Agents Sig/Maryanne Start time Last Medication Dose [...] STA 02/20 801 DC 02/20 IV 02/20 09 0844 Sodium Chloride 1,000 ML X1ED STA 02/20 0724 DC 02/20 IV 02/20 0823 0744 Gastrointestinal Drugs Sig/Maryanne Start time Last Medication Dose Route Stop Time Status Admin Ondansetron HCl 4 MG X1ED PRN PRN 02/20 730 DC 02/20 IV 0744 Patient Discharge Departure Vital Signs/ConditionVital SignsFirst Documented: Result Date Time Pulse Ox 100 02/20 0709 B/P 103/63 02/20 0709 B/P Mean 76 02/20 0709 O2 Delivery Room air 02/20 07 Temp 97.3 02/20 0709 Pulse 114 02/20 0709 Resp 20 02/20 [...] greasy foods.Follow-up with Manuela Hammer.Return for worsening symptoms.[facility] Departure FormsWORK/SCHOOL EXCUSE-CAREGIVER 2 Discharge NoteI have [...] MidLv Saw Pt AloneI have reviewed the PA/SPECIAL PROJECTS MANAGER's note and plan of care. I was available for consultation as needed at all times during the patient's visit in the emergency department. I agree with the clinical impression, plan and disposition. at 1457 at 0915RPT #:[id number] OF REPORTEDEmergency department myrijv6296-08-14D91:25:00B.[id number] [id number] for patient gkygMOPSOFROKLKBOP9480-72-47T41:57:2 5 [facility] 2018-06-06 18:02:00 WJnszjgphku0046471Su6Jvp9+0f+4EDiVxN 1KPnRCiu4GFKhusy1PXqWzY36KyhLe3azdIr mUd7/BvURW3479-99-09M82:02:00 [facility]EMERGENCY PROVIDER REPORTREPORT#:[id number] REPORT STATUS: SignedDATE:06/06/18 TIME: 1801 PATIENT: BROOKE SYKES UNIT #: [id number]#: [id number] ROOM/BED:AGE: 28 SEX: F PCP PHYS: No Primary or Family PhysicianSERVICE AUTHOR: Swapnil Gonzalez SPECIAL PROJECTS MANAGER * ALL edits or amendments must be [...] Risk StratificationGlasgow Coma Score > Age 5 Elena Coma [...] 137/81 06/06 1715 B/P Mean 99 06/06 171 O2 Delivery Room air 06/06 1714 Temp 36.7 06/06 1714 Pulse 84 06/06 1714 Resp 18 06/06 1714 Last Documented: Result Date Time Pulse Ox 100 06/06 1715 B/P 137/81 06/06 1715 B/P Mean 99 06/06 171 O2 Delivery Room air 06/06 171 Temp 36.7 06/06 171 Pulse 84 06/06 171 Resp 18 06/06 1714 Review of Vital Signs Reviewed Focused PEGeneral/Const [...] Impression - Status: SIGNED Entered: 06/06/2018 185 IMPRESSION:No acute osseous abnormality is identified.Impression By: [email or web address] - Pau Salcedoi, MDRADIOLOGY - XR WRIST 3 + V LT 06/06 181 Report Impression - Status: SIGNED Entered: 06/06/2018 185 IMPRESSION:No acute osseous abnormality is identified.Impression By: [email or web address] - Pau Salcedoi, MDRADIOLOGY - XR FOREARM 2 VIEWS LT 06/06 1812 Report Impression - Status: SIGNED Entered: 06/06/2018 185 IMPRESSION:No acute osseous abnormality is identified.Impression By: [email or web address] - Poerick Salcedoi, MDRADIOLOGY - XR ELBOW 3 + V LT 06/06 181 Report Impression - Status: SIGNED Entered: 06/06/2018 1859 IMPRESSION:No acute osseous abnormality is identified.Impression By: [email or web address] - Poerick Rafiei, MDRADIOLOGY - XR HUMERUS 2 + V LT 06/06 181 Report Impression - Status: SIGNED Entered: 06/06/2018 1855 IMPRESSION:No acute osseous abnormality is identified.Impression By: [email or web address] - Poerick Rafiei, MDRADIOLOGY - XR SHOULDER 2 + V LT 06/06 181 Report Impression - Status: SIGNED Entered: 06/06/2018 1853 IMPRESSION:No acute osseous abnormality is identified.Impression By: [email or web address] - Pau Cardenas MD Imaging StatementRadiographic studies reviewed and [...] Bitart/ 1 TAB X1ED STA 06/06 180 DC 06/06 Acetaminophen PO 06/06 180 1810 Patient Discharge Departure Vital Signs/ConditionVital SignsFirst Documented: Result Date Time Pulse Ox 100 06/06 1715 B/P 137/81 06/06 1715 B/P Mean 99 06/06 1715 O2 Delivery Room air 06/06 1715 Temp 36.7 06/06 1715 Pulse 84 06/06 1715 Resp 18 06/06 1715 Last Documented: Result Date Time Pulse Ox 100 06/06 1715 B/P 137/81 06/06 1715 B/P Mean 99 06/06 1715 O2 Delivery Room air 06/06 1715 Temp 36.7 06/06 1715 Pulse 84 06/06 1715 Resp 18 06/06 1715 All vital signs available at the time of this entry have been reviewed. Condition Stable Clinical ImpressionClinical ImpressionPrimary Impression: FallSecondary Impressions: Arm pain Disposition DecisionDischarge )( Discharged to Home Yes )( Time 191 )( Date 06/06/18 Discharge/Care PlanCounseled Regarding Diagnosis, [...] or a call to 911. at 1912RPT #:[id number] OF REPORTEDEmergency department fovmls7392-79-77C06:02:00B.ABJF70382 [phone] for patient hhxmKZKXILTWYNAKNV9985-28-89G32:12:3 5 [facility] 2018-06-06 18:02:00 HYnbhtpvtpg9122272m4K/0xP74udq5XDXT5 Mi80bcZazenb6Nicc8rOBaMmbKisfU53Vb85 +zLROIdCNP8848-67-28C09:02:00 [facility] ([facility] PROVID[facility] REPORTREPORT#:[id number] REPORT STATUS: SignedDATE:06/06/18 TIME: 1801 PATIENT: BROOKE SYKES UNIT #: [id number]#: [id number] ROOM/BED:AGE: 28 SEX: F PCP PHYS: No Primary or Family PhysicianSERVICE AUTHOR: Swapnil Gonzalez NP * ALL edits or amendments must be made on the electronic/computer document * Swapnil Gonzalez 06/06/18 180:HPI-Trauma Minor/Fall GeneralConfirmed Patient YesPatient Type New patient [...] Risk StratificationGlasgow Coma Score > Age 5 Elena Coma [...] Impression - Status: SIGNED Entered: 06/06/2018 185 IMPRESSION:No acute osseous abnormality is identified.Impression By: [email or web address] - Pau Cardenas, MDRADIOLOGY - XR WRIST 3 + V LT 06/06 1812 Report Impression - Status: SIGNED Entered: 06/06/2018 1857 IMPRESSION:No acute osseous abnormality is identified.Impression By: [email or web address] - Pau Salcedoi, MDRADIOLOGY - XR FOREARM 2 VIEWS LT 06/06 1812 Report Impression - Status: SIGNED Entered: 06/06/2018 1859 IMPRESSION:No acute osseous abnormality is identified.Impression By: [email or web address] - Poerick Salcedoi, MDRADIOLOGY - XR ELBOW 3 + V LT 06/06 181 Report Impression - Status: SIGNED Entered: 06/06/2018 1859 IMPRESSION:No acute osseous abnormality is identified.Impression By: [email or web address] - Poerick Salcedoi, MDRADIOLOGY - XR HUMERUS 2 + V LT 06/06 181 Report Impression - Status: SIGNED Entered: 06/06/2018 1855 IMPRESSION:No acute osseous abnormality is identified.Impression By: [email or web address] - Poerick Salcedoi, MDRADIOLOGY - XR SHOULDER 2 + V LT 06/06 181 Report Impression - Status: SIGNED Entered: 06/06/2018 1853 IMPRESSION:No acute osseous abnormality is identified.Impression By: [email or web address] - Pau Cardenas MD Imaging StatementRadiographic studies reviewed and [...] Bitart/ 1 TAB X1ED STA 06/06 180 DC 06/06 Acetaminophen PO 06/06 1801 1810 Patient Discharge Departure Vital Signs/ConditionVital SignsFirst Documented: Result Date Time Pulse Ox 100 06/06 171 B/P 137/81 06/06 1714 B/P Mean 99 06/06 1714 O2 Delivery Room air 06/06 1714 Temp 98.0 06/06 1714 Pulse 84 06/06 171 Resp 18 06/06 171 Last Documented: Result Date Time Pulse Ox 100 06/06 192 B/P 127/80 06/06 1927 B/P Mean 95 [...] )( Time 191 )( Date 06/06/18 Discharge/Care PlanCounseled Regarding Diagnosis, [...] department or a call to 911. Ortega Loear. 06/07/18 0134:HPI-Trauma Minor/Fall GeneralInitial Greet Date/Time 06/06/18 1717 Physical Exam Vital SignsVital Signs Interpretation Diagnostics Lab Results InterpretationResults Re-Evaluation MDM ED CourseMedication(s) Ordered Patient Discharge Departure Vital Signs/ConditionVital Signs Supervising Physician Note MidLv Saw Pt AloneI have reviewed the PA/SPECIAL PROJECTS MANAGER's note and plan of care. I was available for consultation as needed at all times during the patient's visit in the emergency department. I agree with the clinical impression, plan and disposition. at 1912 at 0135RPT #:[id number] OF REPORTPalestine [facility] department pozvrw2607-94-17P64:02:00B.[id number] [phone] for patient ubpxAEBJDBSMWMRVAU0921-54-20D17:34:3 2 HCA[facility]
[2023-10-09 12:41] LABS: Absolute Lymphocytes (CBC) 0.6 K/uL (0.7-4.9); Absolute Monocytes 0.3 K/uL (0.1-1.3); Absolute Neutrophil 11.1 K/uL (1.8-8.0); Basophils % 0.1 % (0-1.3); Eosinophils % 0.1 % (0-4.4); Hematocrit 35.4 % (36.0-45.0); Hemoglobin 12.2 g/dL (12.0-15.0); Lymphocytes % 4.8 % (15.3-44.8); MCH 31.5 pg (27.0-35.0); MCHC 34.6 g/dL (32.0-36.0); MCV 91.1 fL (80-100); MPV 6.8 fL (7.6-11.3); Monocytes % 2.9 % (3.3-12.3); Neutrophils % 92.1 % (41.7-73.7); Platelets 304 thou/uL (152-406); RBC Red Blood Cell Count 3.89 M/uL (3.86-4.86); Red Cell Distribution Width 14.2 % (12.1-15.2)
--- NOTE | 2023-10-09 12:56 | RAD REPORT ---
EXAM DESCRIPTION: US - OB Limited - 10/09/2023 12:39 pm CLINICAL HISTORY: with abdominal pain COMPARISON: None FINDINGS: Single live intrauterine in variable presentation Cervix 4.1 centimeters Femur length 2.6 centimeters 18 weeks 0 days Cardiac activity 133 beats per minute. Fundal placenta. No subchorionic/retroplacental bleed. Amniotic fluid normal. The right and left adnexae are unremarkable. No significant free fluid IMPRESSION: Single live intrauterine variable presentation Estimated gestational age 18 weeks 0 days JAEL 03/11/2024 If a survey is desired it should be performed on a nonemergent basis.
[2023-10-09 13:13] LABS: Blood Morphology Comment NOT SEEN (NOT SEEN); Platelet Estimate ADEQ; White Blood Cell Scan OK (OK)
--- NOTE | 2023-10-09 16:07 | EDPHYS ---
Physician Documentation [facility] Name: Brooke Thomas Age: 33 yrs Sex: Female : 1990 Arrival Date: 10/09/2023 Time: 12:02 Bed 1 Private MD: ED Physician Mark Panchal HPI: 10/08 16:03 This 33 yrs old Female presents to ER via Wheelchair with complaints of 6 jeremy months , Heat Exhaustion, OB Problem (> 20 Weeks). 16:03 The patient presents to the emergency department with abdominal pain, of the right jeremy upper quadrant, left upper quadrant, right lower quadrant and left lower quadrant. The estimated gestational age is 18 weeks. course: care: private OB physician, Dr. PAULA. Previous pregnancies: in previous pregnancies patient has had vaginal delivery. Associated signs and symptoms: Pertinent positives: nausea. The patient has not experienced similar symptoms in the past. 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 - Infectious Disease History:: Denies. - Social history:: Smoking status: Patient denies any tobacco usage or history of. ROS: 16:05 Constitutional: Negative for fever, chills, and weight loss, Eyes: Negative for injury, jeremy pain, redness, and discharge, ENT: Negative for injury, pain, and discharge, Neck: Negative for injury, pain, and swelling, Cardiovascular: Negative for chest pain, palpitations, and edema, Respiratory: Negative for shortness of breath, cough, wheezing, and pleuritic chest pain, Abdomen/GI: Negative for abdominal pain, nausea, vomiting, diarrhea, and constipation, Back: Negative for injury and pain, : Negative for injury, bleeding, discharge, and swelling, Skin: Negative for injury, rash, and discoloration, Neuro: Negative for headache, weakness, numbness, tingling, and seizure, Psych: Negative for depression, anxiety, suicide ideation, homicidal ideation, and hallucinations, Allergy/Immunology: Negative for hives, rash, and allergies, Endocrine: Negative for neck swelling, polydipsia, polyuria, polyphagia, and marked weight changes, Hematologic/Lymphatic: Negative for swollen nodes, abnormal bleeding, and unusual bruising, 16:05 MS/extremity: Positive for pain, of the right arm, left arm, right leg and left leg, 16:06 Abdomen/GI: Positive for abdominal distension, jeremy Exam: 16:05 Constitutional: This is a well developed, well nourished patient who is awake, alert, jeremy and in no acute distress. Head/Face: Normocephalic, atraumatic. Eyes: Pupils equal round and reactive to light, extra-ocular motions intact. Lids and lashes normal. Conjunctiva and sclera are non-icteric and not injected. Cornea within normal limits. Periorbital areas with no swelling, redness, or edema. ENT: Nares patent. No nasal discharge, no septal abnormalities noted. Tympanic membranes are normal and external auditory canals are clear. Oropharynx with no redness, swelling, or masses, exudates, or evidence of obstruction, uvula midline. Mucous membranes moist. Neck: Trachea midline, no thyromegaly or masses palpated, and no cervical lymphadenopathy. Supple, full range of motion without nuchal rigidity, or vertebral point tenderness. No Meningismus. Chest/axilla: Normal chest wall appearance and motion. Nontender with no deformity. No lesions are appreciated. Cardiovascular: Regular rate and rhythm with a normal S1 and S2. No gallops, murmurs, or rubs. Normal PMI, no JVD. No pulse deficits. Respiratory: Lungs have equal breath sounds bilaterally, clear to auscultation and percussion. No rales, rhonchi or wheezes noted. No increased work of breathing, no retractions or nasal flaring. Abdomen/GI: Soft, non-tender, with normal bowel sounds. No distension or tympany. No guarding or rebound. No evidence of tenderness throughout. Back: No spinal tenderness. No costovertebral tenderness. Full range of motion. Skin: Warm, dry with normal turgor. Normal color with no rashes, no lesions, and no evidence of cellulitis. MS/ Extremity: Pulses equal, no cyanosis. Neurovascular intact. Full, normal range of motion. Neuro: Awake and alert, GCS 15, oriented to person, place, time, and situation. Cranial nerves II-XII grossly intact. Motor strength 5/5 in all extremities. Sensory grossly intact. Cerebellar exam normal. Normal gait. Psych: Awake, alert, with orientation to person, place and time. Behavior, mood, and affect are within normal limits. 16:05 Musculoskeletal/extremity: DVT Exam: No signs of deep vein thrombosis. no pain, no swelling, no tenderness, negative Homans' sign noted on exam, no appreciated bluish discoloration, no erythema, no increased warmth, Vital Signs: 12:11 BP 124 / 71; Pulse 88; Resp 18; Temp 98; Pulse Ox 100% on R/A; Weight 81.65 kg; Height mb9 5 ft. 3 in. ; 15:26 BP 118 / 68; Pulse 74; Resp 16; Temp 97; Pulse Ox 100% on R/A; ko1 17:14 BP 118 / 74 Supine; Pulse 76; ph 17:14 BP 124 / 78 Sitting; Pulse 79; ph 17:14 BP 120 / 84 Standing; Pulse 82; ph 18:00 BP 112 / 70; Pulse 76; Resp 18; Temp 97.8; Pulse Ox 98% on R/A; ph 12:11 Body Mass Index 31.89 (81.65 kg, 160.02 cm) mb9 MDM: 12:08 Patient medically screened. [facility] 16:06 Data reviewed: vital signs, nurses notes, lab test result(s), radiologic studies, jeremy ultrasound. 10/08 12:10 Order name: Abo/rh Typing; Complete Time: 15:49 [facility] 10/08 12:10 Order name: Basic Metabolic Panel; Complete Time: 15:49 [facility] 10/08 12:10 Order name: CBC with Diff; Complete Time: 15:49 [facility] 10/08 12:10 Order name: Test, Urine; Complete Time: 17:37 [facility] 10/08 12:10 Order name: Quantitative Hcg; Complete Time: 15:49 [facility] 10/08 12:10 Order name: Urinalysis w/ reflexes; Complete Time: 17:37 [facility] 10/08 12:10 Order name: CPK; Complete Time: 15:49 [facility] 10/08 12:45 Order name: CBC Smear Scan; Complete Time: 15:49 EDMS 10/08 12:10 Order name: US OB Limited; Complete Time: 15:49 [facility] 10/08 12:10 Order name: IV Saline Lock; Complete Time: 12:26 [facility] 10/08 12:10 Order name: Labs collected and sent; Complete Time: 12:26 [facility] 10/08 12:10 Order name: NPO; Complete Time: 12:26 [facility] 10/08 15:50 Order name: Misc. Order: PO JUICE; Complete Time: 15:53 [facility] 10/08 15:50 Order name: Orthostatics; Complete Time: 17:14 [facility] 10/08 16:09 Order name: Misc. Order: DC IF UA AND ORTHOS NEGATIVE; Complete Time: 17:14 [facility] Administered Medications: 13:42 Drug: NS 0.9% IV 1000 ml IV at 1 bolus Per protocol; 1000 mL bolus Route: IV; Rate: 1 ko1 bolus; Site: right forearm; 16:00 Follow up: Response: No adverse reaction; IV Status: Completed infusion; IV Intake: ko1 1000ml 17:00 Follow up: Response: No adverse reaction; IV Status: Completed infusion; IV Intake: ko1 1000ml 13:42 Drug: NS 0.9% IV 1000 ml IV at 1 bolus Per protocol; 1000 mL bolus Route: IV; Rate: 1 ko1 bolus; Site: right forearm; 18:50 Follow up: Response: No adverse reaction; IV Status: Completed infusion; IV Intake: ph 1000ml 18:19 Drug: Rocephin IV 1 grams IV at per protocol once; Given slow IV push per pharmacy ph instructions Route: IV; Rate: per protocol; Site: right forearm; 18:40 Follow up: Response: No adverse reaction; IV Status: Completed infusion ph 18:19 Drug: Cefdinir PO 300 mg PO once Route: PO; ph 18:50 Follow up: Response: No adverse reaction ph Disposition Summary: 10/09/23 16:07 Discharge Ordered Notes: Location: Home jeremy Problem: new jeremy Symptoms: have improved jeremy Condition: Stable jeremy Diagnosis - Heat exhaustion, unspecified jeremy - 18 weeks gestation of jeremy - Dehydration jeremy - UTI/ Urinary tract infection, site not specified jeremy Followup: jeremy - With: Private Physician - When: 2 - 3 days - Reason: Recheck today's complaints, Continuance of care, Re-evaluation by your physician Discharge Instructions: - Discharge Summary Sheet jeremy - Dehydration, Adult jeremy - Care jeremy - Urinary Tract Infection, Adult jeremy - Urinary Tract Infection, Adult, Eawh-qz-Dlxh jeremy - Second Trimester of jeremy - Second Trimester of , Acyq-eb-Ysll jeremy Forms: - Medication Reconciliation Form jeremy - Antibiotic Education jeermy - Prescription Opioid Use jeremy - Patient Portal Instructions jeremy - Leadership Thank You Letter jeremy - Work release form ph Prescriptions: - cefdinir 300 mg Oral capsule - take 1 capsule ORAL route 2 times per day for 7 days; 14 capsule; Refills: 0, jeremy Product Selection Permitted Signatures: Dispatcher [employer] EDMS Mark Panchal MD MD cha Hall, Patricia RN RN ph Cierra Nieves, RN RN ko1 Jodi Zarco, RN RN mb9 Corrections: (The following items were deleted from the chart) 12:10 12:10 ABO/RH TYPING+BB.LAB.BRZ ordered. EDMS EDMS 12:10 12:10 BASIC METABOLIC PANEL+C.LAB.BRZ ordered. EDMS EDMS 12:10 12:10 CBC+H.LAB.BRZ ordered. EDMS EDMS 12:10 12:10 Test, Urine+UC.LAB.BRZ ordered. EDMS EDMS 12:11 12:10 QUANTITATIVE HCG+C.LAB.BRZ ordered. EDMS EDMS 12:11 12:10 Urinalysis+U.LAB.BRZ ordered. EDMS EDMS 12:11 12:10 CREATINE PHOSPHOKINASE+C.LAB.BRZ ordered. EDMS EDMS 12:11 12:11 OB Limited+US.RAD.BRZ ordered. EDMS EDMS
--- NOTE | 2023-10-09 16:07 | ER ---
Nurse's Notes [facility] Name: Brooke Thomas Age: 33 yrs Sex: Female : 1990 Arrival Date: 10/09/2023 Time: 12:02 Bed 1 Private MD: Diagnosis: Heat exhaustion, unspecified;18 weeks gestation of ;Dehydration;UTI/ Urinary tract infection, site not specified Presentation: 10/08 12:11 Chief complaint: Patient states: "I was in the sun all day yesterday, I have heat mb9 exhaustion. I feel light headed, N/V. I'm [address] Jones is my OB.". Coronavirus screen: Vaccine status: Patient reports being unvaccinated. Ebola Screen: No symptoms or risks identified at this time. Initial Sepsis Screen: Does the patient meet any 2 criteria? No. Patient's initial sepsis screen is negative. Does the patient have a suspected source of infection? No. Patient's initial sepsis screen is negative. Risk Assessment: Do you want to hurt yourself or someone else? Patient reports no desire to harm self or others. Onset of symptoms was October 09, 2023. 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 - Infectious Disease History:: Denies. - Social history:: Smoking status: Patient denies any tobacco usage or history of. Screenin:30 [facility] ED Fall Risk Assessment (Adult) History of falling in the last 3 months, ko1 including since admission No falls in past 3 months (0 pts) Confusion or Disorientation No (0 pts) Intoxicated or Sedated No (0 pts) Impaired Gait No (0 pts) Mobility Assist Device Used No (0 pt) Altered Elimination No (0 pt) Score/Fall Risk Level 0 - 2 = Low Risk Oriented to surroundings, Maintained a safe environment, Educated pt \\T\\ family on fall prevention, incl call for assistance when getting out of bed, Assessed \\T\\ reinforced patient's understanding of fall precautions, Provided non-skid footwear, Hourly rounding (assess needs \\T\\ fall precautionary measures) done. Abuse screen: Denies threats or abuse. Denies injuries from another. Nutritional screening: No deficits noted. Tuberculosis screening: No symptoms or risk factors identified. Assessment: 12:30 General: Appears in no apparent distress. Behavior is calm, cooperative, appropriate ko1 for age. Pain: Denies pain. Neuro: No deficits noted. Cardiovascular: No deficits noted. Respiratory: No deficits noted. GI: Reports nausea, vomiting. : No deficits noted. EENT: No deficits noted. Derm: No deficits noted. Musculoskeletal: No deficits noted. 18:12 Reassessment: discharge delayed due to waiting for UA results and administer ko1 antibiotics. Vital Signs: 12:11 BP 124 / 71; Pulse 88; Resp 18; Temp 98; Pulse Ox 100% on R/A; Weight 81.65 kg; Height mb9 5 ft. 3 in. ; 15:26 BP 118 / 68; Pulse 74; Resp 16; Temp 97; Pulse Ox 100% on R/A; ko1 17:14 BP 118 / 74 Supine; Pulse 76; ph 17:14 BP 124 / 78 Sitting; Pulse 79; ph 17:14 BP 120 / 84 Standing; Pulse 82; ph 18:00 BP 112 / 70; Pulse 76; Resp 18; Temp 97.8; Pulse Ox 98% on R/A; ph 12:11 Body Mass Index 31.89 (81.65 kg, 160.02 cm) mb9 ED Course: 12:03 Patient arrived in ED. rg4 12:08 Mark Panchal MD is Attending Physician. jeremy 12:10 Cierra Nieves, MARION is Primary Nurse. ko1 12:11 Arm band placed on. mb9 12:12 Triage completed. mb9 12:15 Missed attempt(s): 22 gauge in right forearm. Bleeding controlled, band aid applied, bc6 catheter tip intact. 12:26 CPK Sent. bc6 12:26 Abo/rh Typing Sent. bc6 12:26 Basic Metabolic Panel Sent. bc6 12:26 CBC with Diff Sent. bc6 12:26 Quantitative Hcg Sent. 6 12:26 Initial lab(s) drawn, by me, sent to lab. Inserted saline lock: 24 gauge in right bc6 forearm, using aseptic technique. Blood collected. 12:30 Patient has correct armband on for positive identification. Allergy band placed. Bed in ko1 low position. Call light in reach. Side rails up X2. Provided Education on: call light, labs, meds. Pulse ox on. NIBP on. Door closed. Noise minimized. Lights dimmed. Warm blanket given. Pillow given. 12:41 US OB Limited In Process Unspecified. EDMS 13:46 No provider procedures requiring assistance completed. ko1 18:35 IV discontinued, intact, bleeding controlled, No redness/swelling at site. Pressure ph dressing applied. Administered Medications: 13:42 Drug: NS 0.9% IV 1000 ml IV at 1 bolus Per protocol; 1000 mL bolus Route: IV; Rate: 1 ko1 bolus; Site: right forearm; 16:00 Follow up: Response: No adverse reaction; IV Status: Completed infusion; IV Intake: ko1 1000ml 17:00 Follow up: Response: No adverse reaction; IV Status: Completed infusion; IV Intake: ko1 1000ml 13:42 Drug: NS 0.9% IV 1000 ml IV at 1 bolus Per protocol; 1000 mL bolus Route: IV; Rate: 1 ko1 bolus; Site: right forearm; 18:50 Follow up: Response: No adverse reaction; IV Status: Completed infusion; IV Intake: ph 1000ml 18:19 Drug: Rocephin IV 1 grams IV at per protocol once; Given slow IV push per pharmacy ph instructions Route: IV; Rate: per protocol; Site: right forearm; 18:40 Follow up: Response: No adverse reaction; IV Status: Completed infusion ph 18:19 Drug: Cefdinir PO 300 mg PO once Route: PO; ph 18:50 Follow up: Response: No adverse reaction ph Medication: 12:30 VIS not applicable for this client. ko1 Intake: 16:00 IV: 1000ml; Total: 1000ml. ko1 17:00 IV: 1000ml; Total: 2000ml. ko1 18:50 IV: 1000ml; Total: 3000ml. ph Outcome: 16:07 Discharge ordered by . jeremy 18:37 Patient left the ED. ph 18:37 Discharged to home ambulatory, with family, ph 18:37 Condition: good 18:37 Discharge instructions given to patient, Instructed on discharge instructions, follow up and referral plans. medication usage, Demonstrated understanding of instructions, follow-up care, medications, Prescriptions given X 1, Signatures: Dispatcher [employer] EDMark Pichardo MD MD cha Hall, Patricia, RN RN ph Cristiano, Astrid rg4 Cierra Nieves RN RN ko1 Jodi Zraco RN RN mb9 Gladys Boston bc6 Corrections: (The following items were deleted from the chart) 12:13 12:11 Chief complaint: Patient states: "I was in the sun all day yesterday, I have heat mb9 exhaustion. I feel light headed, N/V. I'm [address] Jones is my OB." mb9 18:13 18:12 Reassessment: discharge delayed due to waiting for UA results ko1 ko1 18:51 15:30 Response: No adverse reaction; IV Intake: 1000ml ph ph
[2023-10-09 17:35] LABS: Specific Gravity 1.028 (1.005-1.030); Urine Bacteria 20-50 /HPF (<20); Urine Bilirubin NEGATIVE (Negative); Urine Blood Negative (Negative); Urine Clarity Extremely Turbid (Clear); Urine Color Yellow (Yellow); Urine Culture Reflex Order NOT NEEDED; Urine Glucose NEGATIVE (Negative); Urine Ketones 2+ (Negative); Urine Microscopic Reflex YN ORDER UMIC; Urine Mucus 2+ /HPF (None Seen); Urine Nitrite NEGATIVE (Negative); Urine Protein TRACE (Negative); Urine RBC <5 /HPF (None Seen); Urine Urobilinogen Normal (Normal)
[2023-10-09] MEDS ORDERED: CEFTRIAXONE 1000 MG/VIAL ONE (18:10)
[2023-10-09] MEDS ORDERED: CEFDINIR 300 MG CAP PO ONE (18:11)
[2023-10-09] MEDS ORDERED: NA CHLORIDE 0.9% 50 ML ONE (18:11)
[2023-10-09 19:23] VITALS: BP 118/74; TEMP 97; O2SAT 100
== END 2023-10-09 18:37 | disposition home or self-care (01) ==
LOC: ER 12:02
DX: O99.282 Endocrine, nutritional and metabolic diseases complicating pregnancy, second trimester (principal); E86.0 Dehydration; T67.5XXA Heat exhaustion, unspecified, initial encounter; O23.42 Unspecified infection of urinary tract in pregnancy, second trimester; N39.0 Urinary tract infection, site not specified; Z3A.18 18 weeks gestation of pregnancy; Z88.1 Allergy status to other antibiotic agents
CPT/HCPCS: 85025; 81001; 80048; 36415; 86900; 82550; 81025; 86901; 84702; 76815; J0696

== ENCOUNTER 2023-12-06 02:01 | Emergency (ER) | payer OTHER ==
--- OUTSIDE RECORDS SUMMARY | 2023-12-06 02:16 | XMS REPORT | Continuity of Care Document ---
Author Name Unknown Address [address] [facility] [address] [place] [address] [facility] thconnect Address [address] [facility]. 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 Role Phone BARBI GALLEGOS Primary Care Physician PASQUALE Martinez Attending Clinician Unavailable PASQUALE PAULA Attending Clinician Unavailable Pasquale Paula MD Attending Clinician [phone] RUSTAM UY Attending Clinician Unavailable RUSTAM YU Attending Clinician Unavailable RUSTAM YU Attending Clinician Unavailable Doctor Unassigned, Bevier Attending Clinician U RINA Yusuf Attending Clinician Unavailable 1, [facility] Attending Clinician Unavailab [place] Nurse, [facility] Attending Clinician Unavailable SWAPNIL HESS Attending Clinician Ana Nieves Ang - Db Attending Clinician Unavailable Swapnil Hess MD Attending Clinician [phone] Pob, [facility] Main Attending Clinician Unavailjun Ramirez MD, Rosibel Johnson Attending Clinician [phone] NADEEN DAVIS Attending Clinician Unavailab Nadeen Carreno DO Attending Clinician [phone] SAGAR GONZALEZ Attending Clinician Unavailable Nurse, [facility] Attending Clinician Un available Unknown, Attending Attending Clinician Unavailab ADALID Carter Attending Clinician Unavailable SHANTHI BAUER Attending Clinician Unavail able Ludwin BOILER ERECTOR, Alem Attending Clinician [phone] PEDRO LANGFORD Attending Clinician Unavailab gorge [facility] Shanthi Freeman Attending Clinician + James CROSS, Carole Attending Clinician [phone] Zina CROSS, Paula Chand Attending Clinicia n PHILIP MAYES Attending Clinician Unavailable SANIYA WOLF Attending Clinician Unavailmiriam EAGLEMSaniya Attending Clinician [phone] ROSIBEL RAMIREZ Attending Clinician Unavailable Bin SCHULTZ, Iram Ash Attending Clinician Olimpia vailable Doctor Unassigned, Bevier Attending Clinician U navailable Ultrasound, [facility] Attending Clinician Unavaila olivia Snider MD, Avelino Attending Clinician + Amber Rey Attending Clinician UnavailJA Polanco Attending Clinician Unavailable Les CROSS, Ja Machado Attending Clinician [phone] AVELINO CLAYTON Attending Clinician Cheri vidal 1, [facility] Attending Clinician UnavailALBERTO White Attending Clinician Unavailjun Montes MD, Alberto Lazcano Attending Clinician [phone] TERRENCE BARRON Attending Clinician UnavailScott Horowitz [facility] Attending Clinician Tong Barron MD, Terrence Lynne Attending Clinician [phone] ADILSON CHERRY Attending Clinician Unavailable AMENA BETANCOURT Attending Clinician UnavailAMENA Dan Attending Clinician Unavaila Susan Escoto Attending Clinician Unavailable Michelle PACSusan Attending Clinician [phone] Deanne Simmons MA Attending Clinician Unavailab JARETH Hodges Attending Clinician Unavailable Jareth Olmedo MD Attending Clinician [phone] 2, [facility] Attending Clinician Unavailable Eliud CROSS, Quinten M Attending Clinician [phone] KAMERON DANIELS Attending Clinician Unavailable Kameron Daniels MD Attending Clinician [phone] Praveen Lizarraga Attending Clinician Unavail able RUSTAM YU Admitting Clinician Unavailable ROSIBEL RAMIREZ Admitting Clinician Unavailable AMENA BETANCOURT Admitting Clinician UnavailSusan Callaway Admitting Clinician Unavailable KAMERON DANIELS Admitting Clinician Unavailable Physician, No Primary or Family Admitting Clinic amanda Unavailable Payers Payer Name Policy Type Policy Number Effective Date Expirati on Date Source $20 G [id number] 2007 00:00:00 [employer] PPO [id number] 2023 00:00:00 [facility] [id number] 2022 00:00:00 [employer] 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 [id number] 2022 00:00:00 [employer] MP [employer] 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 ON STAND 9 [id number] 2022 00:00:00 [facility] [place] [facility] [id number] 00:00:00 Problems Condition Name Condition Details Condition Category Status Onset Date Resolution Date Last Treatment Date Treating Clinician Comments Source Positive test for herpes simplex virus (HSV) antibody Positive test for herpes simplex virus (HSV) antibody Disease Active 8-08 00:00: 00 [facility] Need for HPV vaccinatio n Need for HPV vaccinatio n Disease Active 2022-04 2-11 00:00: 00 [facility] Obesity (BMI 30-39.9) Obesity (BMI 30-39.9) Disease Active 2022-04 120 00:00: 00 [facility] High-risk in second trimester High-risk in second trimester Disease Active 4-10 00:00: 00 [facility] Bicornuate uterus affecting , antepartum Bicornuate uterus affecting , antepartum Disease Active 2021-04 2-12 00:00: 00 [facility] Suboxone maintenanc e treatment complicati ng , antepartum Suboxone maintenanc e treatment complicati ng , antepartum Disease Active 2021-04- 00:00: 00 [facility] Narcolepsy due to 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 Reports quit x1 year ago [facility] Tobacco use disorder Tobacco use disorder Disease Active 11-22 00:00: 00 [facility] care and examinatio n of lactating mother care and examinatio n of lactating mother Disease Resolve d 2022-04 2-11 00:00: 00 2023-08-17 00:00:00 2023-08-17 14:11:39 [facility] 39 weeks gestation of 39 weeks gestation of Disease Resolve d 2022-04 1-20 00:00: 00 2023-03-26 00:00:00 2023-03-26 14:14:51 [facility] Obesity affecting in third trimester Obesity affecting in third trimester Disease Resolve d 2022-04 1-07 00:00: 00 2023-03-26 00:00:00 2023-03-26 14:14:36 [facility] Anemia of mother in , antepartum Anemia of mother in , antepartum Disease Resolve d 2022-04 1-01 00:00: 00 2023-03-26 00:00:00 2023-03-26 14:14:50 [facility] Choroid plexus cyst Choroid plexus cyst Disease Resolve d 0 7-25 00:00: 00 2023-03-26 00:00:00 2023-03-26 14:14:47 Overview: Formattin g of this note might be different from the original. Noted on Suyapa cs is recommend ed and a FU is suggested [facility] Multiparit y Multiparit y Disease Resolve d 2022-0 4-10 00:00: 00 2023-03-26 00:00:00 2023-03-26 14:14:42 [facility] History of miscarriag e History of miscarriag e Disease Resolve d 2022-0 4-10 00:00: 00 2023-03-26 00:00:00 2023-03-26 14:14:43 [facility] Nausea and vomiting in Nausea and vomiting in Disease Resolve d 2022-0 4-10 00:00: 00 2023-03-26 00:00:00 2023-03-26 14:14:40 [facility] Rh negative state in antepartum period Rh negative state in antepartum period Disease Resolve d 2021-04 2-27 00:00: 00 2023-03-26 00:00:00 2023-03-26 14:14:34 Overview: Formattin g of this note might be different from the original. Will need rhogam 28 weeks, prn [facility] Bicornuate uterus affecting , antepartum Bicornuate uterus affecting , antepartum Disease Resolve d 2021-04 2-12 00:00: 00 2023-03-26 00:00:00 2023-03-26 14:14:29 [facility] Missed Missed Disease Resolve d 2021-04 2-27 00:00: 00 2022-07-24 00:00:00 2022-07-24 13:56:20 [facility] Vaginal bleeding Vaginal bleeding Disease Resolve d 2021-04 2-27 00:00: 00 2022-07-24 00:00:00 2022-07-24 13:54:37 [facility] Bicornuate uterus Bicornuate uterus Disease Resolve d 2021-04 2- 00:00: 00 2022-07-24 00:00:00 2022-07-24 14:05:21 [facility] Abnormal ultrasound Abnormal ultrasound Disease Resolve d 2021-04 2- 00:00: 00 2022-07-24 00:00:00 2022-07-24 13:56:28 [facility] Needs flu shot Needs flu shot Disease Resolve d 2021-04 00:00: 00 2022-07-24 00:00:00 2022-07-24 13:56:13 [facility] examinatio n or test, positive result examinatio n or test, positive result Disease Resolve d 2021-04 00:00: 00 2022-07-24 00:00:00 2022-07-24 13:56:09 [facility] with inconclusi ve viability, single or unspecifie d fetus with inconclusi ve viability, single or unspecifie d fetus Disease Resolve d 2021-04 00:00: 00 2022-07-24 00:00:00 2022-07-24 13:56:11 [facility] Nausea and vomiting in prior to 22 weeks gestation Nausea and vomiting in prior to 22 weeks gestation Disease Resolve d 2021-04 00:00: 00 2022-07-24 00:00:00 2022-07-24 13:56:15 [facility] 5 weeks gestation of 5 weeks gestation of Disease Resolve d 2021-04 1-09 00:00: 00 2022-07-24 00:00:00 2022-07-24 13:56:33 [facility] Pain pelvic Pain pelvic Disease Resolve d 2021-04 0-13 00:00: 00 2022-07-24 00:00:00 2022-07-24 13:54:36 [facility] BMI 30.0-30.9, adult BMI 30.0-30.9, adult Disease Resolve d 8-10 00:00: 00 2022-07-24 00:00:00 2022-07-24 13:56:32 [facility] Screening examinatio n for STD (sexually transmitte d disease) Screening examinatio n for STD (sexually transmitte d disease) Disease Resolve d 0 7-30 00:00: 00 2022-07-24 00:00:00 2022-07-24 13:56:05 [facility] Late menses Late menses Disease Resolve d 0 7-30 00:00: 00 2022-07-24 00:00:00 2022-07-24 13:54:35 [facility] BMI 29.0-29.9, adult BMI 29.0-29.9, adult Disease Resolve d 0 7-30 00:00: 00 2022-07-24 00:00:00 2022-07-24 13:56:31 [facility] Well woman exam with routine gynecologi senait exam Well woman exam with routine gynecologi senait exam Disease Resolve d 11-22 00:00: 00 2022-07-24 00:00:00 2022-07-24 13:56:02 [facility] Boil of inguinal region Boil of inguinal region Disease Resolve d 8 00:00: 00 2021-11-12 00:00:00 2021-11-12 21:58:34 [facility] IUD (intrauter ine device) in place IUD (intrauter ine device) in place Disease Resolve d 11-22 00:00: 00 2021-10-27 00:00:00 2021-10-27 15:54:50 [facility] Allergies, Adverse Reactions, Alerts Allergy Name Allergy Type Status Severity Reaction(s) Onset Date Inactive Date Treating Clinician Comments Source Amoxicil jalen Propensi ty to adverse reaction s Active Itching 10-18 00:00: 00 Ani Johnson - Externa l AMOXICIL JALEN DRUG INGREDI Active ITCHING 10-18 00:00: 00 [facility] Penicill ins DA Active MO RASH 2020-04 00:00: 00 [facility] Coconut DA Active SV 09-24 00:00: 00 [facility] Social History Social Habit Start Date Stop Date Quantity Comments Source ASSERTION 2023-06-14 00:00:00 [facility] History of tobacco use Cigarette Smoker [facility] Gender identity [facility] Sexual orientation Susan Johnson - External Alcoholic beverage intake 2023-11-22 00:00:00 2023-11-22 00:00:00 Lifetime non-drinker (finding) [facility] Cigarettes smoked current (pack per day) - Reported 2023-09-14 00:00:00 2023-09-14 00:00:00 [facility] Cigarette pack-years 2023-09-14 00:00:00 2023-09-14 00:00:00 [facility] Tobacco use and exposure 2023-09-14 00:00:00 2023-09-14 00:00:00 Smokeless tobacco non-user [facility] Alcohol intake 2023-03-30 00:00:00 2023-03-30 00:00:00 Ex-drinker (finding) Ani Johnson - External History of Social function 2023-03-30 00:00:00 2023-03-30 00:00:00 Ani Johnson - External Exposure to SARS-CoV-2 (event) 2022-09-08 00:00:00 2022-09-18 15:45:00 Not sure [facility] Tobacco Comment 2021-10-27 00:00:00 2021-10-27 00:00:00 taking Chantix [facility] Sex Assigned At 1990 00:00:00 1990 00:00:00 Ani Johnson - External Smoking Status Start Date Stop Date Source Ex-smoker 2023-09-14 00:00:00 2023-09-14 [facility] 2021-10-27 00:00:00 [facility] Medications Ordered Medication Name Filled Medication Name Start Date Stop Date Current Medication? Ordering Clinician Indication Dosage Frequency Signature (SIG) Comments Components Source metoclopram tico HCl 10 mg tablet 11-21 00:00: 00 Yes [id number] 10mg Take 1 tablet by mouth every 6 (six) hours as needed for Nausea and Vomiting (N/V). [facility] enoxaparin (LOVENOX) 40 mg/0.4 mL injection 10-11 00:00: 00 Yes [id number] 40mg inject 0.4 mL under the skin in the morning. [facility] metoclopram tico HCl 10 mg tablet 10-11 00:00: 00 11-21 00:00 :00 No [id number] 10mg Take 1 tablet by mouth every 6 (six) hours as needed for Nausea and Vomiting (N/V). [facility] ferrous sulfate (IRON, FERROUS SULFATE,) 325 mg (65 mg iron) tablet 09-25 00:00: 00 Yes [id number] 325mg Take 1 tablet by mouth in the morning and 1 tablet in the evening. [facility] Nitrofurant oin&Nit. Macrocryst (MACROBID) 100 mg capsule 09-24 00:00: 00 10-02 04:59 :00 Yes [id number] 100mg Take 1 capsule by mouth in the morning and 1 capsule in the evening. Do all this for 7 days. [facility] methylpheni date HCl 5 mg tablet 03 09:55: 06 Yes 5mg Take 5 mg by mouth in the morning and 5 mg at noon and 5 mg in the evening. [facility] PNV 67-iron ps-folate no.1-dha (VITAFOL ULTRA) 29 mg iron- 1 mg-200 mg Cap 08-16 00:00: 00 Yes [id number] 1{capsu le} Take 1 capsule by mouth in the morning. [facility] doxylamine- pyridoxine, vit B6, (DICLEGIS) 10-10 mg per tablet 08-16 00:00: 00 11-21 00:00 :00 No [id number] 1 tab@HS.If not effective, 2 tab@HS.If not effective, 2 tab@HS&1 tab in AM.If not effective, 2@HS,1 in AM,&1 in early PM. Max: 4 tab/day. [facility] metoclopram tico HCl 10 mg tablet 08-16 00:00: 00 10-11 00:00 :00 No [id number] 10mg Take 1 tablet by mouth every 6 (six) hours as needed for Nausea and Vomiting (N/V). [facility] enoxaparin 40 mg/0.4 mL injection 08-16 00:00: 00 09-16 04:59 :00 No 40mg inject 0.4 mL under the skin every 24 (twenty-fo ur) hours for 30 days. [facility] Buprenorphi ne HCl-Naloxon e HCl (Suboxone) 8-2 MG sublingual Film 2022-0415 14:48: 58 Yes 1.5{hector m} Place 1.5 films under the tongue daily. Ani johnson Prenat-Fe Poly-Methfo l-FA-DHA (Vitafol Ultra) 29-0.6-0.4- 200 MG oral Capsule 2022-04 00:00: 00 Yes Ani johnson methylpheni date HCl 5 mg tablet 2022-04 13:07: 47 Yes 5mg Take 1 tablet by mouth in the morning and 1 tablet at noon and 1 tablet in the evening. [facility] enoxaparin (LOVENOX) injection 40 mg 2022-04 21:00: 00 Yes 40mg 40 mg, Subcutaneo us, Q24H, First dose on Sun03/06/23 at 1500, Until Discontinu ed, Routine [facility] methylpheni date HCl 5 mg tablet 2022-04 12:36: 49 Yes 5mg Take 1 tablet by mouth in the morning and 1 tablet at noon and 1 tablet in the evening. [facility] acetaminoph en (TYLENOL) tablet 650 mg [...] ed, Routine, pain 7-10 [Order 2 End] [facility] diphenhydrA MINE (BENADRYL) tablet 25 mg 2022-04 05:25: 59 Yes 25mg 25 mg, Oral, Q6HPRN, Starting on Sun03/05/23 at 2325, Until Discontinu ed, Routine, Sleep, Itching [facility] ondansetron (ZOFRAN (PF)) injection 4 mg 2022-04 05:25: 59 Yes 4mg 4 mg, Slow IV Push, Q8HPRN, Starting on Sun03/05/23 at 2325, Until Discontinu ed, Routine, Nausea and Vomiting (N/V) [facility] simethicone (GAS RELIEF (SIMETHICON E)) chewable tablet 160 mg 2022-04 05:25: 59 Yes 160mg 160 mg, Oral, PC+HSPRN, Starting on Sun03/05/23 at 2325, Until Discontinu ed, Routine, Gas [facility] docusate (COLACE) capsule 200 mg 2022-04 05:25: 59 Yes 200mg 200 mg, Oral, QDAILYPRN, Starting on Sun03/05/23 at 2325, Until Discontinu ed, Routine, Constipati on [facility] magnesium hydroxide (MILK OF MAGNESIA) 400 mg/5 mL suspension 30 mL 2022-04 05:25: 59 Yes 30mL 30 mL, Oral, QDAILYPRN, Starting on Sun03/05/23 at 2325, Until Discontinu ed, Routine, Constipati on [facility] benzocaine- menthol (DERMOPLAST ) 20-0.5 % topical spray 2022-04 05:25: 59 Yes Topical, PRN, Starting on Sun03/05/23 at 2325, Until Discontinu ed, Routine, Perineum discomfort [facility] buprenorphi ne HCL (SUBUTEX) sublingual tablet 2 mg 2022-04 02:00: 00 Yes 2mg 2 mg, Sublingual , BID, First dose (after last modificati on) on Sun03/05/23 at 2000, Until Discontinu ed, Routine [facility] Vit-Fe Fumarate-FA () oral Tablet 2022-04 00:00: 00 Yes Ani johnson enoxaparin 40 mg/0.4 mL injection 2022-04 00:00: 00 08-16 00:00 :00 No [id number] 40mg inject 0.4 mL under the skin every 24 (twenty-fo ur) hours. [facility] [id number] fum-folic () 27 mg iron- 1 mg folic tablet 2022-04 00:00: 00 08-16 00:00 :00 No [id number] 1{tbl} Take 1 tablet by mouth in the morning. [facility] docusate 100 mg capsule 2022-04 00:00: 00 08-16 00:00 :00 No [id number] 200mg Take 2 capsules by mouth once daily as needed for Constipati on. [facility] ferrous sulfate 325 mg (65 mg iron) tablet 2022-04 00:00: 00 08-16 00:00 :00 No [id number] 325mg Take 1 tablet by mouth in the morning and 1 tablet in the evening. [facility] ibuprofen 600 mg tablet 2022-04 00:00: 00 08-16 00:00 :00 No [id number] 600mg Take 1 tablet by mouth every 6 (six) hours as needed (Pain). Take with food or milk. [facility] PIB ropivacaine 0.2 % (NAROPIN (PF)) epidural infusion 2022-04 20:58: 00 03-06 04:15 :48 No Epidural, CONTINUOUS PRN, Starting on Sun03/05/23 at 1458, Until Discontinu ed, Routine, Intra-op [facility] lidocaine-e pinephrine (XYLOCAINE W/EPINEPHRI NE) 1.5 %-1:200,000 injection 2022-04 20:56: 00 03-06 04:15 :48 No Intraderma l, ONCE INTRA PROCEDURE, Starting on Sun03/05/23 at 1456, Until Discontinu ed, Routine, Intra-op [facility] buprenorphi ne HCL (SUBUTEX) sublingual tablet 4 mg 2022-04 18:30: 00 Yes 4mg 4 mg, Sublingual , LUNCH, First dose on Sun03/05/23 at 1230, Until Discontinu ed, Routine [facility] oxytocin (PITOCIN) 30 units in NS 500 mL IV infusion 2022-04 17:13: 47 03-06 05:26 :03 No 2mU/min at 2-40 mL/hr, IV Infusion, TITRATE, Starting on Sun03/05/23 at 1113, Until Sun03/05/23 at 2326, TIANNA [facility] D5W-LR IV infusion 1,000 mL 2022-04 17:13: 36 03-06 05:26 :03 No 1000mL at 1-125 mL/hr, IV Infusion, TITRATE, Starting on Sun03/05/23 at 1113, Until Sun03/05/23 at 2326, Routine [facility] methylpheni date HCl 5 mg tablet 2022-04 11:49: 52 Yes 5mg Take 1 tablet by mouth in the morning and 1 tablet at noon and 1 tablet in the evening. [facility] Methylpheni date HCl 10 MG oral Tablet 2022-04 00:00: 00 Yes Ani Johnson - Externa l Iron Fum & P-FA-Vit B & C No.9 (INTEGRA PLUS) 125 mg iron- 1 mg Cap 2022-04 00:00: 00 Yes [id number] 1{capsu le} Take 1 capsule by mouth in the morning. [facility] methylpheni date HCl 5 mg tablet 2022-04 17:22: 23 Yes 5mg Take 1 tablet by mouth in the morning and 1 tablet at noon and 1 tablet in the evening. [facility] doxylamine- pyridoxine, vit B6, (DICLEGIS) 10-10 mg per tablet 2022-04 00:00: 00 03-06 00:00 :00 No [id number] 2{tbl} Take 2 tablets by mouth at bedtime. [facility] ascorbic acid, vitamin C, 500 mg tablet 2022-04 00:00: 00 02-20 00:00 :00 No [id number] 500mg Take 1 tablet by mouth in the morning and 1 tablet at noon and 1 tablet in the evening. [facility] ferrous sulfate 325 mg (65 mg iron) tablet 2022-04 00:00: 00 02-20 00:00 :00 No [id number] 325mg Take 1 tablet by mouth in the morning and 1 tablet in the evening. [facility] doxylamine- pyridoxine, vit B6, (DICLEGIS) 10-10 mg per tablet 12-12 00:00: 00 02-14 00:00 :00 No [id number] 2{tbl} Take 2 tablets by mouth at bedtime. [facility] methylpheni date HCl 5 mg tablet 11-16 10:30: 36 Yes 5mg Take 5 mg by mouth in the morning and 5 mg at noon and 5 mg in the evening. [facility] DICLEGIS 10-10 mg per tablet -06 00:00: 00 Yes [id number] TAKE 2 TABLETS BY MOUTH AT BEDTIME IF NO RELIEF ON DAY 3 TAKE 1 TAB. IN THE MORNING AND 2 TABS. AT BEDTIME, NO RELIEF DAY 4 TAKE 1 TAB. MORNING, 1 TAB. IN AFTERNOON AND 2 TABS. BEDTIME [facility] metroNIDAZO LE 500 mg tablet 605 00:00: 00 09-26 04:59 :00 No [id number] 500mg Take 1 tablet by mouth in the morning and 1 tablet in the evening. Do all this for 7 days. [facility] enoxaparin (LOVENOX) 40 mg/0.4 mL injection 17 00:00: 00 01-28 04:59 :00 No [id number] 40mg inject 0.4 mL under the skin in the morning for 180 days. [facility] vit no.124/iron /folic ( VITAMIN ORAL) 14 15:09: 24 07-28 00:00 :00 No Take by mouth. [facility] vitamin w/FA tablet 14 00:00: 00 Yes [id number] 1{tbl} Take 1 tablet by mouth in the morning. [facility] vitamin w/FA tablet 14 00:00: 00 Yes [id number] 1{tbl} Take 1 tablet by mouth in the morning. [facility] doxylamine- pyridoxine, vit B6, (DICLEGIS) 10-10 mg per tablet -14 00:00: 00 10-19 00:00 :00 No [id number] 2{tbl} Take 2 tablets by mouth at bedtime. [facility] proMETHazin e 25 mg tablet 410 00:00: 00 09-18 00:00 :00 No [id number] 25mg Take 1 tablet by mouth every 6 (six) hours as needed for Nausea and Vomiting (N/V). [facility] vitamin w/FA tablet 4-10 00:00: 00 07-28 00:00 :00 No [id number] 1{tbl} Take 1 tablet by mouth in the morning. [facility] miSOPROStoL (CYTOTEC) tablet 800 mcg 2021-04 22:30: 00 04-11 22:26 :00 No [id number] [facility] NaCl 0.9% (NS) bolus infusion 1,000 mL 2021-04 01:00: 00 03-24 00:55 :00 No 1000mL at 999 mL/hr, 1,000 mL, IV Infusion, ONCE, 1 dose, On [facility] 03/23/22 at 1900, STAT [facility] iopamidol (ISOVUE 370-500 mL) injection 65 mL 2021-04 22:28: 00 03-23 22:29 :00 No [id number] 65mL 65 mL, Intravenou s, ONCE, 1 dose, On [facility] 03/23/22 at 1645, Routine [facility] ondansetron 8 mg disintegrat ing tablet 2021-04 00:00: 00 07-24 00:00 :00 No [id number] 8mg Take 1 tablet by mouth every 8 (eight) hours as needed for Nausea and Vomiting (N/V). [facility] vit no.124/iron /folic ( VITAMIN ORAL) 2021-04 15:57: 04 Yes Take by mouth. [facility] metoclopram tico HCl 10 mg tablet 2021-04 00:00: 00 07-24 00:00 :00 No [id number] 10mg Take 1 tablet by mouth every 6 (six) hours as needed for Nausea and Vomiting (N/V). [facility] modafiniL 200 mg tablet 01-12 00:00: 00 Yes 200mg Take 1 tablet by mouth every morning. [facility] buprenorphi ne-naloxone 8-2 mg sublingual film 2022-0 9-15 00:00: [address] 1 FILM UNDERNEATH TONGUE EVERY DAY. ALLOW TO DISSOLVE SLOWLY IN MOUTH WITHOUT CHEWING OR SWALLOWING [facility] modafiniL 200 mg tablet 6-14 00:00: 00 01-06 00:00 :00 No 200mg Take 200 mg by mouth every morning. [facility] cyclobenzap rine 10 mg tablet 5-07 00:00: 00 01-26 00:00 :00 No [id number] TAKE 1 TABLET BY MOUTH EVERY 8 HOURS NEEDED FOR MUSCLE SPASMS. [facility] gabapentin 600 mg tablet -25 00:00: 00 01-26 00:00 :00 No TK 1/2 TO 1 T PO BID [facility] tablet compound base no.230 (SUBSOLV RDT MISC) 08-26 00:00: 00 01-06 00:00 :[address] 1 AND 1/2 FILMS UNDER THE TONGUE Q DAY ALLOW TO DISSOLVE SLOWLY WITHOUT CHEWING OR SWALLOWING [facility] Immunizations Ordered Immunization Name Filled Immunization Name Date Status Comments Source TDAP 2022-12-21 00:00:00 Completed [facility] Rho (d) Immune Globulin 2022-12-21 00:00:00 Completed [facility] Rho (d) Immune Globulin 2022-04-11 00:00:00 Completed [facility] Rho (d) Immune Globulin 2022-04-11 00:00:00 Completed [facility] Rho (d) Immune Globulin 2022-04-11 00:00:00 Completed [facility] Rho (d) Immune Globulin 2022-04-11 00:00:00 Completed [facility] Rho (d) Immune Globulin 2022-04-11 00:00:00 Completed [facility] Rho (d) Immune Globulin 2022-04-11 00:00:00 Completed [facility] Rho (d) Immune Globulin 2022-04-11 00:00:00 Completed [facility] Rho (d) Immune Globulin 2022-04-11 00:00:00 Completed [facility] Rho (d) Immune Globulin 2022-04-11 00:00:00 Completed [facility] Rho (d) Immune Globulin 2022-04-11 00:00:00 Completed [facility] Rho (d) Immune Globulin 2022-04-11 00:00:00 Completed [facility] Rho (d) Immune Globulin 2022-04-11 00:00:00 Completed [facility] Rho (d) Immune Globulin 2022-04-11 00:00:00 Completed [facility] Rho (d) Immune Globulin 2022-04-11 00:00:00 Completed [facility] Rho (d) Immune Globulin 2022-04-11 00:00:00 Completed [facility] Rho (d) Immune Globulin 2022-04-11 00:00:00 Completed [facility] Rho (d) Immune Globulin 2022-04-11 00:00:00 Completed [facility] Rho (d) Immune Globulin 2022-04-11 00:00:00 Completed [facility] Rho (d) Immune Globulin 2022-04-11 00:00:00 Completed [facility] Rho (d) Immune Globulin 2022-04-11 00:00:00 Completed [facility] Rho (d) Immune Globulin 2022-04-11 00:00:00 Completed [facility] Rho (d) Immune Globulin 2022-04-11 00:00:00 Completed [facility] Rho (d) Immune Globulin 2022-04-11 00:00:00 Completed [facility] Rho (d) Immune Globulin 2022-04-11 00:00:00 Completed [facility] Rho (d) Immune Globulin 2022-04-11 00:00:00 Completed [facility] Rho (d) Immune Globulin 2022-04-11 00:00:00 Completed [facility] Rho (d) Immune Globulin 2022-04-11 00:00:00 Completed [facility] Rho (d) Immune Globulin 2022-04-11 00:00:00 Completed [facility] Rho (d) Immune Globulin 2022-04-11 00:00:00 Completed [facility] Rho (d) Immune Globulin 2022-04-11 00:00:00 Completed [facility] Rho (d) Immune Globulin 2022-04-11 00:00:00 Completed [facility] Rho (d) Immune Globulin 2022-04-11 00:00:00 Completed [facility] Rho (d) Immune Globulin 2022-04-11 00:00:00 Completed [facility] Rho (d) Immune Globulin 2022-04-11 00:00:00 Completed [facility] Rho (d) Immune Globulin 2022-04-11 00:00:00 Completed [facility] Rho (d) Immune Globulin 2022-04-11 00:00:00 Completed [facility] Rho (d) Immune Globulin 2022-04-11 00:00:00 Completed [facility] Rho (d) Immune Globulin 2022-04-11 00:00:00 Completed [facility] Rho (d) Immune Globulin 2022-04-11 00:00:00 Completed [facility] Rho (d) Immune Globulin 2022-04-11 00:00:00 Completed [facility] Rho (d) Immune Globulin 2022-04-11 00:00:00 Completed [facility] Rho (d) Immune Globulin 2022-04-11 00:00:00 Completed [facility] Rho (d) Immune Globulin 2022-04-11 00:00:00 Completed [facility] Rho (d) Immune Globulin 2022-04-11 00:00:00 Completed [facility] Rho (d) Immune Globulin 2022-04-11 00:00:00 Completed [facility] Rho (d) Immune Globulin 2022-04-11 00:00:00 Completed [facility] Rho (d) Immune Globulin 2022-04-11 00:00:00 Completed [facility] HPV9 2022-03-28 00:00:00 Completed [facility] HPV9 2022-03-28 00:00:00 Completed [facility] HPV9 2022-03-28 00:00:00 Completed [facility] HPV9 2022-03-28 00:00:00 Completed [facility] HPV9 2022-03-28 00:00:00 Completed [facility] HPV9 2022-03-28 00:00:00 Completed [facility] HPV9 2022-03-28 00:00:00 Completed [facility] HPV9 2022-03-28 00:00:00 Completed [facility] HPV9 2022-03-28 00:00:00 Completed [facility] HPV9 2022-03-28 00:00:00 Completed [facility] HPV9 2022-03-28 00:00:00 Completed [facility] HPV9 2022-03-28 00:00:00 Completed [facility] HPV9 2022-03-28 00:00:00 Completed [facility] HPV9 2022-03-28 00:00:00 Completed [facility] HPV9 2022-03-28 00:00:00 Completed [facility] HPV9 2022-03-28 00:00:00 Completed [facility] HPV9 2022-03-28 00:00:00 Completed [facility] HPV9 2022-03-28 00:00:00 Completed [facility] HPV9 2022-03-28 00:00:00 Completed [facility] HPV9 2022-03-28 00:00:00 Completed [facility] HPV9 2022-03-28 00:00:00 Completed [facility] HPV9 2022-03-28 00:00:00 Completed [facility] HPV9 2022-03-28 00:00:00 Completed [facility] HPV9 2022-03-28 00:00:00 Completed [facility] HPV9 2022-03-28 00:00:00 Completed [facility] HPV9 2022-03-28 00:00:00 Completed [facility] HPV9 2022-03-28 00:00:00 Completed [facility] HPV9 2022-03-28 00:00:00 Completed [facility] HPV9 2022-03-28 00:00:00 Completed [facility] HPV9 2022-03-28 00:00:00 Completed [facility] HPV9 2022-03-28 00:00:00 Completed [facility] HPV9 2022-03-28 00:00:00 Completed [facility] HPV9 2022-03-28 00:00:00 Completed [facility] HPV9 2022-03-28 00:00:00 Completed [facility] HPV9 2022-03-28 00:00:00 Completed [facility] HPV9 2022-03-28 00:00:00 Completed [facility] HPV9 2022-03-28 00:00:00 Completed [facility] HPV9 2022-03-28 00:00:00 Completed [facility] HPV9 2022-03-28 00:00:00 Completed [facility] HPV9 2022-03-28 00:00:00 Completed [facility] HPV9 2022-03-28 00:00:00 Completed [facility] HPV9 2022-03-28 00:00:00 Completed [facility] HPV9 2022-03-28 00:00:00 Completed [facility] HPV9 2022-03-28 00:00:00 Completed [facility] HPV9 2022-03-28 00:00:00 Completed [facility] HPV9 2022-03-28 00:00:00 Completed [facility] HPV9 2022-03-28 00:00:00 Completed [facility] HPV9 2022-03-28 00:00:00 Completed [facility] HPV9 2022-03-28 00:00:00 Completed [facility] HPV9 2022-03-28 00:00:00 Completed [facility] HPV9 2022-03-28 00:00:00 Completed [facility] HPV9 2022-03-28 00:00:00 Completed [facility] HPV9 2022-03-28 00:00:00 Completed [facility] Influenza Virus Vaccine Quad IM, Preserv and ABX Free 6 MO-64 YRS 2022-02-22 00:00:00 Completed [facility] Influenza Virus Vaccine Quad IM, Preserv and ABX Free 6 MO-64 YRS 2022-02-22 00:00:00 Completed [facility] Influenza Virus Vaccine Quad IM, Preserv and ABX Free 6 MO-64 YRS 2022-02-22 00:00:00 Completed [facility] Influenza Virus Vaccine Quad IM, Preserv and ABX Free 6 MO-64 YRS 2022-02-22 00:00:00 Completed [facility] Influenza Virus Vaccine Quad IM, Preserv and ABX Free 6 MO-64 YRS 2022-02-22 00:00:00 Completed [facility] Influenza Virus Vaccine Quad IM, Preserv and ABX Free 6 MO-64 YRS 2022-02-22 00:00:00 Completed [facility] Influenza Virus Vaccine Quad IM, Preserv and ABX Free 6 MO-64 YRS 2022-02-22 00:00:00 Completed [facility] Influenza Virus Vaccine Quad IM, Preserv and ABX Free 6 MO-64 YRS 2022-02-22 00:00:00 Completed [facility] Influenza Virus Vaccine Quad IM, Preserv and ABX Free 6 MO-64 YRS 2022-02-22 00:00:00 Completed [facility] Influenza Virus Vaccine Quad IM, Preserv and ABX Free 6 MO-64 YRS 2022-02-22 00:00:00 Completed [facility] Influenza Virus Vaccine Quad IM, Preserv and ABX Free 6 MO-64 YRS 2022-02-22 00:00:00 Completed [facility] Influenza Virus Vaccine Quad IM, Preserv and ABX Free 6 MO-64 YRS 2022-02-22 00:00:00 Completed [facility] Influenza Virus Vaccine Quad IM, Preserv and ABX Free 6 MO-64 YRS 2022-02-22 00:00:00 Completed [facility] Influenza Virus Vaccine Quad IM, Preserv and ABX Free 6 MO-64 YRS 2022-02-22 00:00:00 Completed [facility] Influenza Virus Vaccine Quad IM, Preserv and ABX Free 6 MO-64 YRS 2022-02-22 00:00:00 Completed [facility] Influenza Virus Vaccine Quad IM, Preserv and ABX Free 6 MO-64 YRS 2022-02-22 00:00:00 Completed [facility] Influenza Virus Vaccine Quad IM, Preserv and ABX Free 6 MO-64 YRS 2022-02-22 00:00:00 Completed [facility] Influenza Virus Vaccine Quad IM, Preserv and ABX Free 6 MO-64 YRS 2022-02-22 00:00:00 Completed [facility] Influenza Virus Vaccine Quad IM, Preserv and ABX Free 6 MO-64 YRS 2022-02-22 00:00:00 Completed [facility] Influenza Virus Vaccine Quad IM, Preserv and ABX Free 6 MO-64 YRS 2022-02-22 00:00:00 Completed [facility] Influenza Virus Vaccine Quad IM, Preserv and ABX Free 6 MO-64 YRS 2022-02-22 00:00:00 Completed [facility] Influenza Virus Vaccine Quad IM, Preserv and ABX Free 6 MO-64 YRS 2022-02-22 00:00:00 Completed [facility] Influenza Virus Vaccine Quad IM, Preserv and ABX Free 6 MO-64 YRS 2022-02-22 00:00:00 Completed [facility] Influenza Virus Vaccine Quad IM, Preserv and ABX Free 6 MO-64 YRS 2022-02-22 00:00:00 Completed [facility] Influenza Virus Vaccine Quad IM, Preserv and ABX Free 6 MO-64 YRS 2022-02-22 00:00:00 Completed [facility] Influenza Virus Vaccine Quad IM, Preserv and ABX Free 6 MO-64 YRS 2022-02-22 00:00:00 Completed [facility] Influenza Virus Vaccine Quad IM, Preserv and ABX Free 6 MO-64 YRS 2022-02-22 00:00:00 Completed [facility] Influenza Virus Vaccine Quad IM, Preserv and ABX Free 6 MO-64 YRS 2022-02-22 00:00:00 Completed [facility] Influenza Virus Vaccine Quad IM, Preserv and ABX Free 6 MO-64 YRS 2022-02-22 00:00:00 Completed [facility] Influenza Virus Vaccine Quad IM, Preserv and ABX Free 6 MO-64 YRS 2022-02-22 00:00:00 Completed [facility] Influenza Virus Vaccine Quad IM, Preserv and ABX Free 6 MO-64 YRS 2022-02-22 00:00:00 Completed [facility] Influenza Virus Vaccine Quad IM, Preserv and ABX Free 6 MO-64 YRS 2022-02-22 00:00:00 Completed [facility] Influenza Virus Vaccine Quad IM, Preserv and ABX Free 6 MO-64 YRS 2022-02-22 00:00:00 Completed [facility] Influenza Virus Vaccine Quad IM, Preserv and ABX Free 6 MO-64 YRS 2022-02-22 00:00:00 Completed [facility] Influenza Virus Vaccine Quad IM, Preserv and ABX Free 6 MO-64 YRS 2022-02-22 00:00:00 Completed [facility] Influenza Virus Vaccine Quad IM, Preserv and ABX Free 6 MO-64 YRS 2022-02-22 00:00:00 Completed [facility] Influenza Virus Vaccine Quad IM, Preserv and ABX Free 6 MO-64 YRS 2022-02-22 00:00:00 Completed [facility] Influenza Virus Vaccine Quad IM, Preserv and ABX Free 6 MO-64 YRS 2022-02-22 00:00:00 Completed [facility] Influenza Virus Vaccine Quad IM, Preserv and ABX Free 6 MO-64 YRS 2022-02-22 00:00:00 Completed [facility] Influenza Virus Vaccine Quad IM, Preserv and ABX Free 6 MO-64 YRS 2022-02-22 00:00:00 Completed [facility] Influenza Virus Vaccine Quad IM, Preserv and ABX Free 6 MO-64 YRS 2022-02-22 00:00:00 Completed [facility] Influenza Virus Vaccine Quad IM, Preserv and ABX Free 6 MO-64 YRS 2022-02-22 00:00:00 Completed [facility] Influenza Virus Vaccine Quad IM, Preserv and ABX Free 6 MO-64 YRS 2022-02-22 00:00:00 Completed [facility] Influenza Virus Vaccine Quad IM, Preserv and ABX Free 6 MO-64 YRS 2022-02-22 00:00:00 Completed [facility] Influenza Virus Vaccine Quad IM, Preserv and ABX Free 6 MO-64 YRS 2022-02-22 00:00:00 Completed [facility] Influenza Virus Vaccine Quad IM, Preserv and ABX Free 6 MO-64 YRS 2022-02-22 00:00:00 Completed [facility] Influenza Virus Vaccine Quad IM, Preserv and ABX Free 6 MO-64 YRS 2022-02-22 00:00:00 Completed [facility] Influenza Virus Vaccine Quad IM, Preserv and ABX Free 6 MO-64 YRS 2022-02-22 00:00:00 Completed [facility] Influenza Virus Vaccine Quad IM, Preserv and ABX Free 6 MO-64 YRS (FLUCELVAX) 2022-02-22 00:00:00 Completed [facility] Influenza Virus Vaccine Quad IM, Preserv and ABX Free 6 MO-64 YRS (FLUCELVAX) 2022-02-22 00:00:00 Completed [facility] Influenza Virus Vaccine Quad IM, Preserv and ABX Free 6 MO-64 YRS 2022-02-22 00:00:00 Completed [facility] Influenza Virus Vaccine Quad IM, Preserv and ABX Free 6 MO-64 YRS 2022-02-22 00:00:00 Completed [facility] Influenza Virus Vaccine Quad IM, Preserv and ABX Free 6 MO-64 YRS 2022-02-22 00:00:00 Completed [facility] Influenza Virus Vaccine Quad IM, Preserv and ABX Free 6 MO-64 YRS 2022-02-22 00:00:00 Completed [facility] Influenza Virus Vaccine Quad IM, Preserv and ABX Free 6 MO-64 YRS 2022-02-22 00:00:00 Completed [facility] Influenza Virus Vaccine Quad IM, Preserv and ABX Free 6 MO-64 YRS 2022-02-22 00:00:00 Completed [facility] Influenza Virus Vaccine Quad IM, Preserv and ABX Free 6 MO-64 YRS 2022-02-22 00:00:00 Completed [facility] Influenza Virus Vaccine Quad IM, Preserv and ABX Free 6 MO-64 YRS 2022-02-22 00:00:00 Completed [facility] Influenza Virus Vaccine Quad IM, Preserv and ABX Free 6 MO-64 YRS 2022-02-22 00:00:00 Completed [facility] Influenza Virus Vaccine Quad IM, Preserv and ABX Free 6 MO-64 YRS 2022-02-22 00:00:00 Completed [facility] Influenza Virus Vaccine Quad IM, Preserv and ABX Free 6 MO-64 YRS 2022-02-22 00:00:00 Completed [facility] Influenza Virus Vaccine Quad IM, Preserv and ABX Free 6 MO-64 YRS 2022-02-22 00:00:00 Completed [facility] Influenza Virus Vaccine Quad IM, Preserv and ABX Free 6 MO-64 YRS 2022-02-22 00:00:00 Completed [facility] Influenza Virus Vaccine Quad IM, Preserv and ABX Free 6 MO-64 YRS 2022-02-22 00:00:00 Completed [facility] Influenza Virus Vaccine Quad IM, Preserv and ABX Free 6 MO-64 YRS 2022-02-22 00:00:00 Completed [facility] Influenza Virus Vaccine Quad IM, Preserv and ABX Free 6 MO-64 YRS 2022-02-22 00:00:00 Completed [facility] Influenza Virus Vaccine Quad IM, Preserv and ABX Free 6 MO-64 YRS 2022-02-22 00:00:00 Completed [facility] Influenza Virus Vaccine Quad IM, Preserv and ABX Free 6 MO-64 YRS 2022-02-22 00:00:00 Completed [facility] Influenza Virus Vaccine Quad IM, Preserv and ABX Free 6 MO-64 YRS 2022-02-22 00:00:00 Completed [facility] Influenza Virus Vaccine Quad IM, Preserv and ABX Free 6 MO-64 YRS 2022-02-22 00:00:00 Completed [facility] Influenza Virus Vaccine Quad IM, Preserv and ABX Free 6 MO-64 YRS 2022-02-22 00:00:00 Completed [facility] Influenza Virus Vaccine Quad IM, Preserv and ABX Free 6 MO-64 YRS 2022-02-22 00:00:00 Completed [facility] Influenza Virus Vaccine Quad IM, Preserv and ABX Free 6 MO-64 YRS 2022-02-22 00:00:00 Completed [facility] Influenza Virus Vaccine Quad IM, Preserv and ABX Free 6 MO-64 YRS 2022-02-22 00:00:00 Completed [facility] Influenza Virus Vaccine Quad IM, Preserv and ABX Free 6 MO-64 YRS 2022-02-22 00:00:00 Completed [facility] Influenza Virus Vaccine Quad IM, Preserv and ABX Free 6 MO-64 YRS 2022-02-22 00:00:00 Completed [facility] Influenza Virus Vaccine Quad IM, Preserv and ABX Free 6 MO-64 YRS 2022-02-22 00:00:00 Completed [facility] Influenza Virus Vaccine Quad IM, Preserv and ABX Free 6 MO-64 YRS 2022-02-22 00:00:00 Completed [facility] HPV9 2021-12-30 00:00:00 Completed [facility] HPV9 2021-12-30 00:00:00 Completed [facility] HPV9 2021-12-30 00:00:00 Completed [facility] HPV9 2021-12-30 00:00:00 Completed [facility] HPV9 2021-12-30 00:00:00 Completed [facility] HPV9 2021-12-30 00:00:00 Completed [facility] HPV9 2021-12-30 00:00:00 Completed [facility] HPV9 2021-12-30 00:00:00 Completed [facility] HPV9 2021-12-30 00:00:00 Completed [facility] HPV9 2021-12-30 00:00:00 Completed [facility] HPV9 2021-12-30 00:00:00 Completed [facility] HPV9 2021-12-30 00:00:00 Completed [facility] HPV9 2021-12-30 00:00:00 Completed [facility] HPV9 2021-12-30 00:00:00 Completed [facility] HPV9 2021-12-30 00:00:00 Completed [facility] HPV9 2021-12-30 00:00:00 Completed [facility] HPV9 2021-12-30 00:00:00 Completed [facility] HPV9 2021-12-30 00:00:00 Completed [facility] HPV9 2021-12-30 00:00:00 Completed [facility] HPV9 2021-12-30 00:00:00 Completed [facility] HPV9 2021-12-30 00:00:00 Completed [facility] HPV9 2021-12-30 00:00:00 Completed [facility] HPV9 2021-12-30 00:00:00 Completed [facility] HPV9 2021-12-30 00:00:00 Completed [facility] HPV9 2021-12-30 00:00:00 Completed [facility] HPV9 2021-12-30 00:00:00 Completed [facility] HPV9 2021-12-30 00:00:00 Completed [facility] HPV9 2021-12-30 00:00:00 Completed [facility] HPV9 2021-12-30 00:00:00 Completed [facility] HPV9 2021-12-30 00:00:00 Completed [facility] HPV9 2021-12-30 00:00:00 Completed [facility] HPV9 2021-12-30 00:00:00 Completed [facility] HPV9 2021-12-30 00:00:00 Completed [facility] HPV9 2021-12-30 00:00:00 Completed [facility] HPV9 2021-12-30 00:00:00 Completed [facility] HPV9 2021-12-30 00:00:00 Completed [facility] HPV9 2021-12-30 00:00:00 Completed [facility] HPV9 2021-12-30 00:00:00 Completed [facility] HPV9 2021-12-30 00:00:00 Completed [facility] HPV9 2021-12-30 00:00:00 Completed [facility] HPV9 2021-12-30 00:00:00 Completed [facility] HPV9 2021-12-30 00:00:00 Completed [facility] HPV9 2021-12-30 00:00:00 Completed [facility] HPV9 2021-12-30 00:00:00 Completed [facility] HPV9 2021-12-30 00:00:00 Completed [facility] HPV9 2021-12-30 00:00:00 Completed [facility] HPV9 2021-12-30 00:00:00 Completed [facility] HPV9 2021-12-30 00:00:00 Completed [facility] HPV9 2021-12-30 00:00:00 Completed [facility] HPV9 2021-12-30 00:00:00 Completed [facility] HPV9 2021-12-30 00:00:00 Completed [facility] HPV9 2021-12-30 00:00:00 Completed [facility] HPV9 2021-12-30 00:00:00 Completed [facility] HPV9 2021-12-30 00:00:00 Completed [facility] HPV9 2021-12-30 00:00:00 Completed [facility] HPV9 2021-12-30 00:00:00 Completed [facility] HPV9 2021-12-30 00:00:00 Completed [facility] HPV9 2021-12-30 00:00:00 Completed [facility] HPV9 2021-12-30 00:00:00 Completed [facility] HPV9 2021-12-30 00:00:00 Completed [facility] HPV9 2021-12-30 00:00:00 Completed [facility] HPV9 2021-12-30 00:00:00 Completed [facility] HPV9 2021-12-30 00:00:00 Completed [facility] HPV9 2021-12-30 00:00:00 Completed [facility] HPV9 2021-12-30 00:00:00 Completed [facility] HPV9 2021-12-30 00:00:00 Completed [facility] HPV9 2021-12-30 00:00:00 Completed [facility] HPV9 2021-12-30 00:00:00 Completed [facility] HPV9 2021-12-30 00:00:00 Completed [facility] HPV9 2021-12-30 00:00:00 Completed [facility] HPV9 2021-12-30 00:00:00 Completed [facility] HPV9 2021-12-30 00:00:00 Completed [facility] HPV9 2021-12-30 00:00:00 Completed [facility] HPV9 2021-12-30 00:00:00 Completed [facility] HPV9 2021-12-30 00:00:00 Completed [facility] HPV9 2021-12-30 00:00:00 Completed [facility] HPV9 2021-12-30 00:00:00 Completed [facility] HPV9 2021-12-30 00:00:00 Completed [facility] HPV9 2021-12-30 00:00:00 Completed [facility] HPV9 2021-12-30 00:00:00 [facility] [facility] 2021-12-30 00:00:00 Completed [facility] HPV9 2021-12-30 00:00:00 Completed [facility] HPV9 2021-12-30 00:00:00 Completed [facility] HPV9 2021-12-30 00:00:00 Completed [facility] HPV9 2021-12-30 00:00:00 Completed [facility] HPV9 2021-12-30 00:00:00 Completed [facility] HPV9 2021-12-30 00:00:00 Completed [facility] HPV9 2021-12-30 00:00:00 Completed [facility] HPV9 2021-12-30 00:00:00 Completed [facility] HPV9 2021-12-30 00:00:00 Completed [facility] HPV9 2021-12-30 00:00:00 Completed [facility] HPV9 2021-12-30 00:00:00 Completed [facility] HPV9 2021-12-30 00:00:00 Completed [facility] HPV9 2021-12-30 00:00:00 Completed [facility] SARS-COV-2 COVID-19 VACCINE - (MODERNA) 2020-09-17 00:00:00 Completed [facility] SARS-COV-2 COVID-19 VACCINE - (MODERNA) 2020-09-17 00:00:00 Completed [facility] SARS-COV-2 COVID-19 VACCINE - (MODERNA) 2020-09-17 00:00:00 Completed [facility] SARS-COV-2 COVID-19 VACCINE - (MODERNA) 2020-09-17 00:00:00 Completed [facility] SARS-COV-2 COVID-19 VACCINE - (MODERNA) 2020-09-17 00:00:00 Completed [facility] SARS-COV-2 COVID-19 VACCINE - (MODERNA) 2020-09-17 00:00:00 Completed [facility] SARS-COV-2 COVID-19 VACCINE - (MODERNA) 2020-09-17 00:00:00 Completed [facility] SARS-COV-2 COVID-19 VACCINE - (MODERNA) 2020-09-17 00:00:00 Completed [facility] SARS-COV-2 COVID-19 VACCINE - (MODERNA) 2020-09-17 00:00:00 Completed [facility] SARS-COV-2 COVID-19 VACCINE - (MODERNA) 2020-09-17 00:00:00 Completed [facility] SARS-COV-2 COVID-19 VACCINE - (MODERNA) 2020-09-17 00:00:00 Completed [facility] SARS-COV-2 COVID-19 VACCINE - (MODERNA) 2020-09-17 00:00:00 Completed [facility] SARS-COV-2 COVID-19 VACCINE - (MODERNA) 2020-09-17 00:00:00 Completed [facility] SARS-COV-2 COVID-19 VACCINE - (MODERNA) 2020-09-17 00:00:00 Completed [facility] SARS-COV-2 COVID-19 VACCINE - (MODERNA) 2020-09-17 00:00:00 Completed [facility] SARS-COV-2 COVID-19 VACCINE - (MODERNA) 2020-09-17 00:00:00 Completed [facility] SARS-COV-2 COVID-19 VACCINE - (MODERNA) 2020-09-17 00:00:00 Completed [facility] SARS-COV-2 COVID-19 VACCINE - (MODERNA) 2020-09-17 00:00:00 Completed [facility] SARS-COV-2 COVID-19 VACCINE - (MODERNA) 2020-09-17 00:00:00 Completed [facility] SARS-COV-2 COVID-19 VACCINE - (MODERNA) 2020-09-17 00:00:00 Completed [facility] SARS-COV-2 COVID-19 VACCINE - (MODERNA) 2020-09-17 00:00:00 Completed [facility] SARS-COV-2 COVID-19 VACCINE - (MODERNA) 2020-09-17 00:00:00 Completed [facility] SARS-COV-2 COVID-19 VACCINE - (MODERNA) 2020-09-17 00:00:00 Completed [facility] SARS-COV-2 COVID-19 VACCINE - (MODERNA) 2020-09-17 00:00:00 Completed [facility] SARS-COV-2 COVID-19 VACCINE - (MODERNA) 2020-09-17 00:00:00 Completed [facility] SARS-COV-2 COVID-19 VACCINE - (MODERNA) 2020-09-17 00:00:00 Completed [facility] SARS-COV-2 COVID-19 VACCINE - (MODERNA) 2020-09-17 00:00:00 Completed [facility] SARS-COV-2 COVID-19 VACCINE - (MODERNA) 2020-09-17 00:00:00 Completed [facility] SARS-COV-2 COVID-19 VACCINE - (MODERNA) 2020-09-17 00:00:00 Completed [facility] SARS-COV-2 COVID-19 VACCINE - (MODERNA) 2020-09-17 00:00:00 Completed [facility] SARS-COV-2 COVID-19 VACCINE - (MODERNA) 2020-09-17 00:00:00 Completed [facility] SARS-COV-2 COVID-19 VACCINE - (MODERNA) 2020-09-17 00:00:00 Completed [facility] SARS-COV-2 COVID-19 VACCINE - (MODERNA) 2020-09-17 00:00:00 Completed [facility] SARS-COV-2 COVID-19 VACCINE - (MODERNA) 2020-09-17 00:00:00 Completed [facility] SARS-COV-2 COVID-19 VACCINE - (MODERNA) 2020-09-17 00:00:00 Completed [facility] SARS-COV-2 COVID-19 VACCINE - (MODERNA) 2020-09-17 00:00:00 Completed [facility] SARS-COV-2 COVID-19 VACCINE - (MODERNA) 2020-09-17 00:00:00 Completed [facility] SARS-COV-2 COVID-19 VACCINE - (MODERNA) 2020-09-17 00:00:00 Completed [facility] SARS-COV-2 COVID-19 VACCINE - (MODERNA) 2020-09-17 00:00:00 Completed [facility] SARS-COV-2 COVID-19 VACCINE - (MODERNA) 2020-09-17 00:00:00 Completed [facility] SARS-COV-2 COVID-19 VACCINE - (MODERNA) 2020-09-17 00:00:00 Completed [facility] SARS-COV-2 COVID-19 VACCINE - (MODERNA) 2020-09-17 00:00:00 Completed [facility] SARS-COV-2 COVID-19 VACCINE - (MODERNA) 2020-09-17 00:00:00 Completed [facility] SARS-COV-2 COVID-19 VACCINE - (MODERNA) 2020-09-17 00:00:00 Completed [facility] SARS-COV-2 COVID-19 VACCINE - (MODERNA) 2020-09-17 00:00:00 Completed [facility] SARS-COV-2 COVID-19 VACCINE - (MODERNA) 2020-09-17 00:00:00 Completed [facility] SARS-COV-2 COVID-19 VACCINE - (MODERNA) 2020-09-17 00:00:00 Completed [facility] SARS-COV-2 COVID-19 VACCINE - (MODERNA) 2020-09-17 00:00:00 Completed [facility] SARS-COV-2 COVID-19 VACCINE - (MODERNA) 2020-09-17 00:00:00 Completed [facility] SARS-COV-2 COVID-19 VACCINE - (MODERNA) 2020-09-17 00:00:00 Completed [facility] SARS-COV-2 COVID-19 VACCINE - (MODERNA) 2020-09-17 00:00:00 Completed [facility] SARS-COV-2 COVID-19 VACCINE - (MODERNA) 2020-09-17 00:00:00 Completed [facility] SARS-COV-2 COVID-19 VACCINE - (MODERNA) 2020-09-17 00:00:00 Completed [facility] SARS-COV-2 COVID-19 VACCINE - (MODERNA) 2020-09-17 00:00:00 Completed [facility] SARS-COV-2 COVID-19 VACCINE - (MODERNA) 2020-09-17 00:00:00 Completed [facility] SARS-COV-2 COVID-19 VACCINE - (MODERNA) 2020-09-17 00:00:00 Completed [facility] SARS-COV-2 COVID-19 VACCINE - (MODERNA) 2020-09-17 00:00:00 Completed [facility] SARS-COV-2 COVID-19 VACCINE - (MODERNA) 2020-09-17 00:00:00 Completed [facility] SARS-COV-2 COVID-19 VACCINE - (MODERNA) 2020-09-17 00:00:00 Completed [facility] SARS-COV-2 COVID-19 VACCINE - (MODERNA) 2020-09-17 00:00:00 Completed [facility] SARS-COV-2 COVID-19 VACCINE - (MODERNA) 2020-09-17 00:00:00 Completed [facility] SARS-COV-2 COVID-19 VACCINE - (MODERNA) 2020-09-17 00:00:00 Completed [facility] SARS-COV-2 COVID-19 VACCINE - (MODERNA) 2020-09-17 00:00:00 Completed [facility] SARS-COV-2 COVID-19 VACCINE - (MODERNA) 2020-09-17 00:00:00 Completed [facility] SARS-COV-2 COVID-19 VACCINE - (MODERNA) 2020-08-07 00:00:00 Completed [facility] SARS-COV-2 COVID-19 VACCINE - (MODERNA) 2020-08-07 00:00:00 Completed [facility] SARS-COV-2 COVID-19 VACCINE - (MODERNA) 2020-08-07 00:00:00 Completed [facility] SARS-COV-2 COVID-19 VACCINE - (MODERNA) 2020-08-07 00:00:00 Completed [facility] SARS-COV-2 COVID-19 VACCINE - (MODERNA) 2020-08-07 00:00:00 Completed [facility] SARS-COV-2 COVID-19 VACCINE - (MODERNA) 2020-08-07 00:00:00 Completed [facility] SARS-COV-2 COVID-19 VACCINE - (MODERNA) 2020-08-07 00:00:00 Completed [facility] SARS-COV-2 COVID-19 VACCINE - (MODERNA) 2020-08-07 00:00:00 Completed [facility] SARS-COV-2 COVID-19 VACCINE - (MODERNA) 2020-08-07 00:00:00 Completed [facility] SARS-COV-2 COVID-19 VACCINE - (MODERNA) 2020-08-07 00:00:00 Completed [facility] SARS-COV-2 COVID-19 VACCINE - (MODERNA) 2020-08-07 00:00:00 Completed [facility] SARS-COV-2 COVID-19 VACCINE - (MODERNA) 2020-08-07 00:00:00 Completed [facility] SARS-COV-2 COVID-19 VACCINE - (MODERNA) 2020-08-07 00:00:00 Completed [facility] SARS-COV-2 COVID-19 VACCINE - (MODERNA) 2020-08-07 00:00:00 Completed [facility] SARS-COV-2 COVID-19 VACCINE - (MODERNA) 2020-08-07 00:00:00 Completed [facility] SARS-COV-2 COVID-19 VACCINE - (MODERNA) 2020-08-07 00:00:00 Completed [facility] SARS-COV-2 COVID-19 VACCINE - (MODERNA) 2020-08-07 00:00:00 Completed [facility] SARS-COV-2 COVID-19 VACCINE - (MODERNA) 2020-08-07 00:00:00 Completed [facility] SARS-COV-2 COVID-19 VACCINE - (MODERNA) 2020-08-07 00:00:00 Completed [facility] SARS-COV-2 COVID-19 VACCINE - (MODERNA) 2020-08-07 00:00:00 Completed [facility] SARS-COV-2 COVID-19 VACCINE - (MODERNA) 2020-08-07 00:00:00 Completed [facility] SARS-COV-2 COVID-19 VACCINE - (MODERNA) 2020-08-07 00:00:00 Completed [facility] SARS-COV-2 COVID-19 VACCINE - (MODERNA) 2020-08-07 00:00:00 Completed [facility] SARS-COV-2 COVID-19 VACCINE - (MODERNA) 2020-08-07 00:00:00 Completed [facility] SARS-COV-2 COVID-19 VACCINE - (MODERNA) 2020-08-07 00:00:00 Completed [facility] SARS-COV-2 COVID-19 VACCINE - (MODERNA) 2020-08-07 00:00:00 Completed [facility] SARS-COV-2 COVID-19 VACCINE - (MODERNA) 2020-08-07 00:00:00 Completed [facility] SARS-COV-2 COVID-19 VACCINE - (MODERNA) 2020-08-07 00:00:00 Completed [facility] SARS-COV-2 COVID-19 VACCINE - (MODERNA) 2020-08-07 00:00:00 Completed [facility] SARS-COV-2 COVID-19 VACCINE - (MODERNA) 2020-08-07 00:00:00 Completed [facility] SARS-COV-2 COVID-19 VACCINE - (MODERNA) 2020-08-07 00:00:00 Completed [facility] SARS-COV-2 COVID-19 VACCINE - (MODERNA) 2020-08-07 00:00:00 Completed [facility] SARS-COV-2 COVID-19 VACCINE - (MODERNA) 2020-08-07 00:00:00 Completed [facility] SARS-COV-2 COVID-19 VACCINE - (MODERNA) 2020-08-07 00:00:00 Completed [facility] SARS-COV-2 COVID-19 VACCINE - (MODERNA) 2020-08-07 00:00:00 Completed [facility] SARS-COV-2 COVID-19 VACCINE - (MODERNA) 2020-08-07 00:00:00 Completed [facility] SARS-COV-2 COVID-19 VACCINE - (MODERNA) 2020-08-07 00:00:00 Completed [facility] SARS-COV-2 COVID-19 VACCINE - (MODERNA) 2020-08-07 00:00:00 Completed [facility] SARS-COV-2 COVID-19 VACCINE - (MODERNA) 2020-08-07 00:00:00 Completed [facility] SARS-COV-2 COVID-19 VACCINE - (MODERNA) 2020-08-07 00:00:00 Completed [facility] SARS-COV-2 COVID-19 VACCINE - (MODERNA) 2020-08-07 00:00:00 Completed [facility] SARS-COV-2 COVID-19 VACCINE - (MODERNA) 2020-08-07 00:00:00 Completed [facility] SARS-COV-2 COVID-19 VACCINE - (MODERNA) 2020-08-07 00:00:00 Completed [facility] SARS-COV-2 COVID-19 VACCINE - (MODERNA) 2020-08-07 00:00:00 Completed [facility] SARS-COV-2 COVID-19 VACCINE - (MODERNA) 2020-08-07 00:00:00 Completed [facility] SARS-COV-2 COVID-19 VACCINE - (MODERNA) 2020-08-07 00:00:00 Completed [facility] SARS-COV-2 COVID-19 VACCINE - (MODERNA) 2020-08-07 00:00:00 Completed [facility] SARS-COV-2 COVID-19 VACCINE - (MODERNA) 2020-08-07 00:00:00 Completed [facility] SARS-COV-2 COVID-19 VACCINE - (MODERNA) 2020-08-07 00:00:00 Completed [facility] SARS-COV-2 COVID-19 VACCINE - (MODERNA) 2020-08-07 00:00:00 Completed [facility] SARS-COV-2 COVID-19 VACCINE - (MODERNA) 2020-08-07 00:00:00 Completed [facility] SARS-COV-2 COVID-19 VACCINE - (MODERNA) 2020-08-07 00:00:00 Completed [facility] SARS-COV-2 COVID-19 VACCINE - (MODERNA) 2020-08-07 00:00:00 Completed [facility] SARS-COV-2 COVID-19 VACCINE - (MODERNA) 2020-08-07 00:00:00 Completed [facility] SARS-COV-2 COVID-19 VACCINE - (MODERNA) 2020-08-07 00:00:00 Completed [facility] SARS-COV-2 COVID-19 VACCINE - (MODERNA) 2020-08-07 00:00:00 Completed [facility] SARS-COV-2 COVID-19 VACCINE - (MODERNA) 2020-08-07 00:00:00 Completed [facility] SARS-COV-2 COVID-19 VACCINE - (MODERNA) 2020-08-07 00:00:00 Completed [facility] SARS-COV-2 COVID-19 VACCINE - (MODERNA) 2020-08-07 00:00:00 Completed [facility] SARS-COV-2 COVID-19 VACCINE - (MODERNA) 2020-08-07 00:00:00 Completed [facility] SARS-COV-2 COVID-19 VACCINE - (MODERNA) 2020-08-07 00:00:00 Completed [facility] SARS-COV-2 COVID-19 VACCINE - (MODERNA) 2020-08-07 00:00:00 Completed [facility] SARS-COV-2 COVID-19 VACCINE - (MODERNA) 2020-08-07 00:00:00 Completed [facility] SARS-COV-2 COVID-19 VACCINE - (MODERNA) 2020-08-07 00:00:00 Completed [facility] SARS-COV-2 COVID-19 MODERNA 12+ YRS VACCINE 2020-06-13 00:00:00 Completed [facility] SARS-COV-2 COVID-19 MODERNA 12+ YRS VACCINE 2020-06-13 00:00:00 Completed [facility] SARS-COV-2 COVID-19 MODERNA 12+ YRS VACCINE 2020-06-13 00:00:00 Completed [facility] SARS-COV-2 COVID-19 MODERNA 12+ YRS VACCINE 2020-06-13 00:00:00 Completed [facility] SARS-COV-2 COVID-19 MODERNA 12+ YRS VACCINE 2020-06-13 00:00:00 Completed [facility] SARS-COV-2 COVID-19 MODERNA 12+ YRS VACCINE 2020-06-13 00:00:00 Completed [facility] SARS-COV-2 COVID-19 MODERNA 12+ YRS VACCINE 2020-06-13 00:00:00 Completed [facility] SARS-COV-2 COVID-19 MODERNA 12+ YRS VACCINE 2020-06-13 00:00:00 Completed [facility] SARS-COV-2 COVID-19 MODERNA 12+ YRS VACCINE 2020-06-13 00:00:00 Completed [facility] SARS-COV-2 COVID-19 MODERNA 12+ YRS VACCINE 2020-06-13 00:00:00 Completed [facility] SARS-COV-2 COVID-19 MODERNA 12+ YRS VACCINE 2020-06-13 00:00:00 Completed [facility] SARS-COV-2 COVID-19 MODERNA 12+ YRS VACCINE 2020-06-13 00:00:00 Completed [facility] SARS-COV-2 COVID-19 MODERNA 12+ YRS VACCINE 2020-06-13 00:00:00 Completed [facility] SARS-COV-2 COVID-19 MODERNA 12+ YRS VACCINE 2020-06-13 00:00:00 Completed [facility] SARS-COV-2 COVID-19 MODERNA 12+ YRS VACCINE 2020-06-13 00:00:00 Completed [facility] SARS-COV-2 COVID-19 MODERNA 12+ YRS VACCINE 2020-06-13 00:00:00 Completed [facility] SARS-COV-2 COVID-19 MODERNA 12+ YRS VACCINE 2020-06-13 00:00:00 Completed [facility] SARS-COV-2 COVID-19 MODERNA 12+ YRS VACCINE 2020-06-13 00:00:00 Completed [facility] SARS-COV-2 COVID-19 MODERNA 12+ YRS VACCINE 2020-06-13 00:00:00 Completed [facility] SARS-COV-2 COVID-19 MODERNA 12+ YRS VACCINE 2020-06-13 00:00:00 Completed [facility] SARS-COV-2 COVID-19 MODERNA 12+ YRS VACCINE 2020-06-13 00:00:00 Completed [facility] SARS-COV-2 COVID-19 MODERNA 12+ YRS VACCINE 2020-06-13 00:00:00 Completed [facility] SARS-COV-2 COVID-19 MODERNA 12+ YRS VACCINE 2020-06-13 00:00:00 Completed [facility] SARS-COV-2 COVID-19 MODERNA 12+ YRS VACCINE 2020-06-13 00:00:00 Completed [facility] SARS-COV-2 COVID-19 MODERNA 12+ YRS VACCINE 2020-06-13 00:00:00 Completed [facility] SARS-COV-2 COVID-19 MODERNA 12+ YRS VACCINE 2020-06-13 00:00:00 Completed [facility] SARS-COV-2 COVID-19 MODERNA 12+ YRS VACCINE 2020-06-13 00:00:00 Completed [facility] SARS-COV-2 COVID-19 MODERNA 12+ YRS VACCINE 2020-06-13 00:00:00 Completed [facility] SARS-COV-2 COVID-19 MODERNA 12+ YRS VACCINE 2020-06-13 00:00:00 Completed [facility] SARS-COV-2 COVID-19 MODERNA 12+ YRS VACCINE 2020-06-13 00:00:00 Completed [facility] SARS-COV-2 COVID-19 MODERNA 12+ YRS VACCINE 2020-06-13 00:00:00 Completed [facility] SARS-COV-2 COVID-19 MODERNA 12+ YRS VACCINE 2020-06-13 00:00:00 Completed [facility] SARS-COV-2 COVID-19 MODERNA 12+ YRS VACCINE 2020-06-13 00:00:00 Completed [facility] SARS-COV-2 COVID-19 MODERNA 12+ YRS VACCINE 2020-06-13 00:00:00 Completed [facility] SARS-COV-2 COVID-19 MODERNA 12+ YRS VACCINE 2020-06-13 00:00:00 Completed [facility] SARS-COV-2 COVID-19 MODERNA 12+ YRS VACCINE 2020-06-13 00:00:00 Completed [facility] SARS-COV-2 COVID-19 MODERNA 12+ YRS VACCINE 2020-06-13 00:00:00 Completed [facility] SARS-COV-2 COVID-19 MODERNA 12+ YRS VACCINE 2020-06-13 00:00:00 Completed [facility] SARS-COV-2 COVID-19 MODERNA 12+ YRS VACCINE 2020-06-13 00:00:00 Completed [facility] SARS-COV-2 COVID-19 MODERNA 12+ YRS VACCINE 2020-06-13 00:00:00 Completed [facility] SARS-COV-2 COVID-19 MODERNA 12+ YRS VACCINE 2020-06-13 00:00:00 Completed [facility] SARS-COV-2 COVID-19 MODERNA 12+ YRS VACCINE 2020-06-13 00:00:00 Completed [facility] SARS-COV-2 COVID-19 MODERNA 12+ YRS VACCINE 2020-06-13 00:00:00 Completed [facility] SARS-COV-2 COVID-19 MODERNA 12+ YRS VACCINE 2020-06-13 00:00:00 Completed [facility] SARS-COV-2 COVID-19 MODERNA 12+ YRS VACCINE 2020-06-13 00:00:00 Completed [facility] SARS-COV-2 COVID-19 MODERNA 12+ YRS VACCINE 2020-06-13 00:00:00 Completed [facility] SARS-COV-2 COVID-19 MODERNA 12+ YRS VACCINE 2020-06-13 00:00:00 Completed [facility] SARS-COV-2 COVID-19 MODERNA 12+ YRS VACCINE 2020-06-13 00:00:00 Completed [facility] SARS-COV-2 COVID-19 MODERNA 12+ YRS VACCINE 2020-06-13 00:00:00 Completed [facility] SARS-COV-2 COVID-19 MODERNA 12+ YRS VACCINE 2020-06-13 00:00:00 Completed [facility] SARS-COV-2 COVID-19 MODERNA 12+ YRS VACCINE 2020-06-13 00:00:00 Completed [facility] SARS-COV-2 COVID-19 MODERNA 12+ YRS VACCINE 2020-06-13 00:00:00 Completed [facility] SARS-COV-2 COVID-19 MODERNA 12+ YRS VACCINE 2020-06-13 00:00:00 Completed [facility] SARS-COV-2 COVID-19 MODERNA 12+ YRS VACCINE 2020-06-13 00:00:00 Completed [facility] SARS-COV-2 COVID-19 MODERNA 12+ YRS VACCINE 2020-06-13 00:00:00 Completed [facility] SARS-COV-2 COVID-19 MODERNA 12+ YRS VACCINE 2020-06-13 00:00:00 Completed [facility] SARS-COV-2 COVID-19 MODERNA 12+ YRS VACCINE 2020-06-13 00:00:00 Completed [facility] SARS-COV-2 COVID-19 MODERNA 12+ YRS VACCINE 2020-06-13 00:00:00 Completed [facility] SARS-COV-2 COVID-19 MODERNA 12+ YRS VACCINE 2020-06-13 00:00:00 Completed [facility] SARS-COV-2 COVID-19 MODERNA 12+ YRS VACCINE 2020-06-13 00:00:00 Completed [facility] SARS-COV-2 COVID-19 MODERNA 12+ YRS VACCINE 2020-06-13 00:00:00 Completed [facility] SARS-COV-2 COVID-19 MODERNA 12+ YRS VACCINE 2020-06-13 00:00:00 Completed [facility] SARS-COV-2 COVID-19 MODERNA 12+ YRS VACCINE 2020-06-13 00:00:00 Completed [facility] SARS-COV-2 COVID-19 MODERNA 12+ YRS VACCINE 2020-06-13 00:00:00 Completed [facility] SARS-COV-2 COVID-19 MODERNA 12+ YRS VACCINE 2020-06-13 00:00:00 Completed [facility] SARS-COV-2 COVID-19 MODERNA 12+ YRS VACCINE 2020-06-13 00:00:00 Completed [facility] SARS-COV-2 COVID-19 MODERNA 12+ YRS VACCINE 2020-06-13 00:00:00 Completed [facility] SARS-COV-2 COVID-19 MODERNA 12+ YRS VACCINE 2020-06-13 00:00:00 Completed [facility] SARS-COV-2 COVID-19 MODERNA 12+ YRS VACCINE 2020-06-13 00:00:00 Completed [facility] SARS-COV-2 COVID-19 MODERNA 12+ YRS VACCINE 2020-06-13 00:00:00 Completed [facility] SARS-COV-2 COVID-19 MODERNA 12+ YRS VACCINE 2020-06-13 00:00:00 Completed [facility] SARS-COV-2 COVID-19 MODERNA 12+ YRS VACCINE 2020-06-13 00:00:00 Completed [facility] SARS-COV-2 COVID-19 MODERNA 12+ YRS VACCINE 2020-06-13 00:00:00 Completed [facility] SARS-COV-2 COVID-19 MODERNA 12+ YRS VACCINE 2020-06-13 00:00:00 Completed [facility] SARS-COV-2 COVID-19 MODERNA 12+ YRS VACCINE 2020-06-13 00:00:00 Completed [facility] SARS-COV-2 COVID-19 MODERNA 12+ YRS VACCINE 2020-06-13 00:00:00 Completed [facility] SARS-COV-2 COVID-19 MODERNA 12+ YRS VACCINE 2020-06-13 00:00:00 Completed [facility] SARS-COV-2 COVID-19 MODERNA 12+ YRS VACCINE 2020-06-13 00:00:00 Completed [facility] SARS-COV-2 COVID-19 MODERNA 12+ YRS VACCINE 2020-06-13 00:00:00 Completed [facility] SARS-COV-2 COVID-19 MODERNA 12+ YRS VACCINE 2020-06-13 00:00:00 Completed [facility] SARS-COV-2 COVID-19 MODERNA 12+ YRS VACCINE 2020-06-13 00:00:00 Completed [facility] SARS-COV-2 COVID-19 MODERNA 12+ YRS VACCINE 2020-06-13 00:00:00 Completed [facility] SARS-COV-2 COVID-19 MODERNA 12+ YRS VACCINE 2020-06-13 00:00:00 Completed [facility] SARS-COV-2 COVID-19 MODERNA 12+ YRS VACCINE 2020-06-13 00:00:00 Completed [facility] SARS-COV-2 COVID-19 MODERNA 12+ YRS VACCINE 2020-06-13 00:00:00 Completed [facility] SARS-COV-2 COVID-19 MODERNA 12+ YRS VACCINE 2020-06-13 00:00:00 Completed [facility] SARS-COV-2 COVID-19 MODERNA 12+ YRS VACCINE 2020-06-13 00:00:00 Completed [facility] SARS-COV-2 COVID-19 MODERNA 12+ YRS VACCINE 2020-06-13 00:00:00 Completed [facility] SARS-COV-2 COVID-19 MODERNA 12+ YRS VACCINE 2020-06-13 00:00:00 Completed [facility] SARS-COV-2 COVID-19 MODERNA 12+ YRS VACCINE 2020-06-13 00:00:00 Completed [facility] SARS-COV-2 COVID-19 MODERNA 12+ YRS VACCINE 2020-06-13 00:00:00 Completed [facility] SARS-COV-2 COVID-19 MODERNA 12+ YRS VACCINE 2020-06-13 00:00:00 Completed [facility] SARS-COV-2 COVID-19 MODERNA 12+ YRS VACCINE 2020-06-13 00:00:00 Completed [facility] SARS-COV-2 COVID-19 MODERNA 12+ YRS VACCINE 2020-06-13 00:00:00 Completed [facility] SARS-COV-2 COVID-19 MODERNA 12+ YRS VACCINE 2020-05-30 00:00:00 Completed [facility] SARS-COV-2 COVID-19 MODERNA 12+ YRS VACCINE 2020-05-30 00:00:00 Completed [facility] SARS-COV-2 COVID-19 MODERNA 12+ YRS VACCINE 2020-05-30 00:00:00 Completed [facility] SARS-COV-2 COVID-19 MODERNA 12+ YRS VACCINE 2020-05-30 00:00:00 Completed [facility] SARS-COV-2 COVID-19 MODERNA 12+ YRS VACCINE 2020-05-30 00:00:00 Completed [facility] SARS-COV-2 COVID-19 MODERNA 12+ YRS VACCINE 2020-05-30 00:00:00 Completed [facility] SARS-COV-2 COVID-19 MODERNA 12+ YRS VACCINE 2020-05-30 00:00:00 Completed [facility] SARS-COV-2 COVID-19 MODERNA 12+ YRS VACCINE 2020-05-30 00:00:00 Completed [facility] SARS-COV-2 COVID-19 MODERNA 12+ YRS VACCINE 2020-05-30 00:00:00 Completed [facility] SARS-COV-2 COVID-19 MODERNA 12+ YRS VACCINE 2020-05-30 00:00:00 Completed [facility] SARS-COV-2 COVID-19 MODERNA 12+ YRS VACCINE 2020-05-30 00:00:00 Completed [facility] SARS-COV-2 COVID-19 MODERNA 12+ YRS VACCINE 2020-05-30 00:00:00 Completed [facility] SARS-COV-2 COVID-19 MODERNA 12+ YRS VACCINE 2020-05-30 00:00:00 Completed [facility] SARS-COV-2 COVID-19 MODERNA 12+ YRS VACCINE 2020-05-30 00:00:00 Completed [facility] SARS-COV-2 COVID-19 MODERNA 12+ YRS VACCINE 2020-05-30 00:00:00 Completed [facility] SARS-COV-2 COVID-19 MODERNA 12+ YRS VACCINE 2020-05-30 00:00:00 Completed [facility] SARS-COV-2 COVID-19 MODERNA 12+ YRS VACCINE 2020-05-30 00:00:00 Completed [facility] SARS-COV-2 COVID-19 MODERNA 12+ YRS VACCINE 2020-05-30 00:00:00 Completed [facility] SARS-COV-2 COVID-19 MODERNA 12+ YRS VACCINE 2020-05-30 00:00:00 Completed [facility] SARS-COV-2 COVID-19 MODERNA 12+ YRS VACCINE 2020-05-30 00:00:00 Completed [facility] SARS-COV-2 COVID-19 MODERNA 12+ YRS VACCINE 2020-05-30 00:00:00 Completed [facility] SARS-COV-2 COVID-19 MODERNA 12+ YRS VACCINE 2020-05-30 00:00:00 Completed [facility] SARS-COV-2 COVID-19 MODERNA 12+ YRS VACCINE 2020-05-30 00:00:00 Completed [facility] SARS-COV-2 COVID-19 MODERNA 12+ YRS VACCINE 2020-05-30 00:00:00 Completed [facility] SARS-COV-2 COVID-19 MODERNA 12+ YRS VACCINE 2020-05-30 00:00:00 Completed [facility] SARS-COV-2 COVID-19 MODERNA 12+ YRS VACCINE 2020-05-30 00:00:00 Completed [facility] SARS-COV-2 COVID-19 MODERNA 12+ YRS VACCINE 2020-05-30 00:00:00 Completed [facility] SARS-COV-2 COVID-19 MODERNA 12+ YRS VACCINE 2020-05-30 00:00:00 Completed [facility] SARS-COV-2 COVID-19 MODERNA 12+ YRS VACCINE 2020-05-30 00:00:00 Completed [facility] SARS-COV-2 COVID-19 MODERNA 12+ YRS VACCINE 2020-05-30 00:00:00 Completed [facility] SARS-COV-2 COVID-19 MODERNA 12+ YRS VACCINE 2020-05-30 00:00:00 Completed [facility] SARS-COV-2 COVID-19 MODERNA 12+ YRS VACCINE 2020-05-30 00:00:00 Completed [facility] SARS-COV-2 COVID-19 MODERNA 12+ YRS VACCINE 2020-05-30 00:00:00 Completed [facility] SARS-COV-2 COVID-19 MODERNA 12+ YRS VACCINE 2020-05-30 00:00:00 Completed [facility] SARS-COV-2 COVID-19 MODERNA 12+ YRS VACCINE 2020-05-30 00:00:00 Completed [facility] SARS-COV-2 COVID-19 MODERNA 12+ YRS VACCINE 2020-05-30 00:00:00 Completed [facility] SARS-COV-2 COVID-19 MODERNA 12+ YRS VACCINE 2020-05-30 00:00:00 Completed [facility] SARS-COV-2 COVID-19 MODERNA 12+ YRS VACCINE 2020-05-30 00:00:00 Completed [facility] SARS-COV-2 COVID-19 MODERNA 12+ YRS VACCINE 2020-05-30 00:00:00 Completed [facility] SARS-COV-2 COVID-19 MODERNA 12+ YRS VACCINE 2020-05-30 00:00:00 Completed [facility] SARS-COV-2 COVID-19 MODERNA 12+ YRS VACCINE 2020-05-30 00:00:00 Completed [facility] SARS-COV-2 COVID-19 MODERNA 12+ YRS VACCINE 2020-05-30 00:00:00 Completed [facility] SARS-COV-2 COVID-19 MODERNA 12+ YRS VACCINE 2020-05-30 00:00:00 Completed [facility] SARS-COV-2 COVID-19 MODERNA 12+ YRS VACCINE 2020-05-30 00:00:00 Completed [facility] SARS-COV-2 COVID-19 MODERNA 12+ YRS VACCINE 2020-05-30 00:00:00 Completed [facility] SARS-COV-2 COVID-19 MODERNA 12+ YRS VACCINE 2020-05-30 00:00:00 Completed [facility] SARS-COV-2 COVID-19 MODERNA 12+ YRS VACCINE 2020-05-30 00:00:00 Completed [facility] SARS-COV-2 COVID-19 MODERNA 12+ YRS VACCINE 2020-05-30 00:00:00 Completed [facility] SARS-COV-2 COVID-19 MODERNA 12+ YRS VACCINE 2020-05-30 00:00:00 Completed [facility] SARS-COV-2 COVID-19 MODERNA 12+ YRS VACCINE 2020-05-30 00:00:00 Completed [facility] SARS-COV-2 COVID-19 MODERNA 12+ YRS VACCINE 2020-05-30 00:00:00 Completed [facility] SARS-COV-2 COVID-19 MODERNA 12+ YRS VACCINE 2020-05-30 00:00:00 Completed [facility] SARS-COV-2 COVID-19 MODERNA 12+ YRS VACCINE 2020-05-30 00:00:00 Completed [facility] SARS-COV-2 COVID-19 MODERNA 12+ YRS VACCINE 2020-05-30 00:00:00 Completed [facility] SARS-COV-2 COVID-19 MODERNA 12+ YRS VACCINE 2020-05-30 00:00:00 Completed [facility] SARS-COV-2 COVID-19 MODERNA 12+ YRS VACCINE 2020-05-30 00:00:00 Completed [facility] SARS-COV-2 COVID-19 MODERNA 12+ YRS VACCINE 2020-05-30 00:00:00 Completed [facility] SARS-COV-2 COVID-19 MODERNA 12+ YRS VACCINE 2020-05-30 00:00:00 Completed [facility] SARS-COV-2 COVID-19 MODERNA 12+ YRS VACCINE 2020-05-30 00:00:00 Completed [facility] SARS-COV-2 COVID-19 MODERNA 12+ YRS VACCINE 2020-05-30 00:00:00 Completed [facility] SARS-COV-2 COVID-19 MODERNA 12+ YRS VACCINE 2020-05-30 00:00:00 Completed [facility] SARS-COV-2 COVID-19 MODERNA 12+ YRS VACCINE 2020-05-30 00:00:00 Completed [facility] SARS-COV-2 COVID-19 MODERNA 12+ YRS VACCINE 2020-05-30 00:00:00 Completed [facility] SARS-COV-2 COVID-19 MODERNA 12+ YRS VACCINE 2020-05-30 00:00:00 Completed [facility] SARS-COV-2 COVID-19 MODERNA 12+ YRS VACCINE 2020-05-30 00:00:00 Completed [facility] SARS-COV-2 COVID-19 MODERNA 12+ YRS VACCINE 2020-05-30 00:00:00 Completed [facility] SARS-COV-2 COVID-19 MODERNA 12+ YRS VACCINE 2020-05-30 00:00:00 Completed [facility] SARS-COV-2 COVID-19 MODERNA 12+ YRS VACCINE 2020-05-30 00:00:00 Completed [facility] SARS-COV-2 COVID-19 MODERNA 12+ YRS VACCINE 2020-05-30 00:00:00 Completed [facility] SARS-COV-2 COVID-19 MODERNA 12+ YRS VACCINE 2020-05-30 00:00:00 Completed [facility] SARS-COV-2 COVID-19 MODERNA 12+ YRS VACCINE 2020-05-30 00:00:00 Completed [facility] SARS-COV-2 COVID-19 MODERNA 12+ YRS VACCINE 2020-05-30 00:00:00 Completed [facility] SARS-COV-2 COVID-19 MODERNA 12+ YRS VACCINE 2020-05-30 00:00:00 Completed [facility] SARS-COV-2 COVID-19 MODERNA 12+ YRS VACCINE 2020-05-30 00:00:00 Completed [facility] SARS-COV-2 COVID-19 MODERNA 12+ YRS VACCINE 2020-05-30 00:00:00 Completed [facility] SARS-COV-2 COVID-19 MODERNA 12+ YRS VACCINE 2020-05-30 00:00:00 Completed [facility] SARS-COV-2 COVID-19 MODERNA 12+ YRS VACCINE 2020-05-30 00:00:00 Completed [facility] SARS-COV-2 COVID-19 MODERNA 12+ YRS VACCINE 2020-05-30 00:00:00 Completed [facility] SARS-COV-2 COVID-19 MODERNA 12+ YRS VACCINE 2020-05-30 00:00:00 Completed [facility] SARS-COV-2 COVID-19 MODERNA 12+ YRS VACCINE 2020-05-30 00:00:00 Completed [facility] SARS-COV-2 COVID-19 MODERNA 12+ YRS VACCINE 2020-05-30 00:00:00 Completed [facility] SARS-COV-2 COVID-19 MODERNA 12+ YRS VACCINE 2020-05-30 00:00:00 Completed [facility] SARS-COV-2 COVID-19 MODERNA 12+ YRS VACCINE 2020-05-30 00:00:00 Completed [facility] SARS-COV-2 COVID-19 MODERNA 12+ YRS VACCINE 2020-05-30 00:00:00 Completed [facility] SARS-COV-2 COVID-19 MODERNA 12+ YRS VACCINE 2020-05-30 00:00:00 Completed [facility] SARS-COV-2 COVID-19 MODERNA 12+ YRS VACCINE 2020-05-30 00:00:00 Completed [facility] SARS-COV-2 COVID-19 MODERNA 12+ YRS VACCINE 2020-05-30 00:00:00 Completed [facility] SARS-COV-2 COVID-19 MODERNA 12+ YRS VACCINE 2020-05-30 00:00:00 Completed [facility] SARS-COV-2 COVID-19 MODERNA 12+ YRS VACCINE 2020-05-30 00:00:00 Completed [facility] SARS-COV-2 COVID-19 MODERNA 12+ YRS VACCINE 2020-05-30 00:00:00 Completed [facility] SARS-COV-2 COVID-19 MODERNA 12+ YRS VACCINE 2020-05-30 00:00:00 Completed [facility] SARS-COV-2 COVID-19 MODERNA 12+ YRS VACCINE 2020-05-30 00:00:00 Completed [facility] SARS-COV-2 COVID-19 MODERNA 12+ YRS VACCINE 2020-05-30 00:00:00 Completed [facility] SARS-COV-2 COVID-19 MODERNA 12+ YRS VACCINE 2020-05-30 00:00:00 Completed [facility] SARS-COV-2 COVID-19 MODERNA 12+ YRS VACCINE Unknown Completed [facility] SARS-COV-2 COVID-19 MODERNA 12+ YRS VACCINE Unknown Completed [facility] HPV9 Unknown Completed [facility] Influenza Virus Vaccine Quad IM, Preserv and ABX Free 6 MO-64 YRS (FLUCELVAX) Unknown Completed [facility] SARS-COV-2 COVID-19 VACCINE - (MODERNA) [facility] Unknown Completed [facility] Rho (d) Immune Globulin Unknown Completed [facility] TDAP Unknown Completed [facility] Rho (d) Immune Globulin Unknown Completed [facility] SARS-COV-2 COVID-19 MODERNA 12+ YRS VACCINE Unknown Completed [facility] SARS-COV-2 COVID-19 MODERNA 12+ YRS VACCINE Unknown Completed [facility] HPV9 Unknown Completed [facility] Influenza Virus Vaccine Quad IM, Preserv and ABX Free 6 MO-64 YRS (FLUCELVAX) Unknown Completed [facility] SARS-COV-2 COVID-19 VACCINE - (MODERNA) Unknown [facility] COVID-19 VACCINE - (MODERNA) Unknown [facility] HPV[facility] Unknown Completed [facility] Rho (d) Immune Globulin Unknown Completed [facility] TDAP Unknown Completed [facility] Rho (d) Immune Globulin Unknown Completed [facility] Influenza Virus Vaccine Quad IM, Preserv and ABX Free 6 MO-64 YRS (FLUCELVAX) Unknown Completed [facility] SARS-COV-2 COVID-19 MODERNA 12+ YRS VACCINE Unknown Completed [facility] SARS-COV-2 COVID-19 MODERNA 12+ YRS VACCINE Unknown Completed [facility] HPV9 Unknown Completed [facility] Influenza Virus Vaccine Quad IM, Preserv and ABX Free 6 MO-64 YRS (FLUCELVAX) Unknown Completed [facility] SARS-COV-2 COVID-19 VACCINE - (MODERNA) Unknown Completed [facility] SARS-COV-2 COVID-19 VACCINE - (MODERNA) [facility] Completed [facility] Rho (d) Immune Globulin Unknown Completed [facility] SARS-COV-2 COVID-19 MODERNA 12+ YRS VACCINE Unknown Completed [facility] SARS-COV-2 COVID-19 MODERNA 12+ YRS VACCINE Unknown Completed [facility] HPV9 Unknown Completed [facility] Influenza Virus Vaccine Quad IM, Preserv and ABX Free 6 MO-64 YRS (FLUCELVAX) Unknown Completed [facility] SARS-COV-2 COVID-19 VACCINE - (MODERNA) Unknown Completed [facility] SARS-COV-2 COVID-19 VACCINE - (MODERNA) Unknown Completed [facility] HPV9 Unknown Completed [facility] Rho (d) Immune Globulin Unknown Completed [facility] SARS-COV-2 COVID-19 MODERNA 12+ YRS VACCINE Unknown Completed [facility] SARS-COV-2 COVID-19 MODERNA 12+ YRS VACCINE Unknown Completed [facility] HPV9 Unknown Completed [facility] Influenza Virus Vaccine Quad IM, Preserv and ABX Free 6 MO-64 YRS (FLUCELVAX) Unknown Completed [facility] SARS-COV-2 COVID-19 VACCINE - (MODERNA) Unknown Completed [facility] SARS-COV-2 COVID-19 VACCINE - (MODERNA) Unknown Completed [facility] HPV9 Unknown Completed [facility] Rho (d) Immune Globulin Unknown Completed [facility] SARS-COV-2 COVID-19 MODERNA 12+ YRS VACCINE Unknown Completed [facility] SARS-COV-2 COVID-19 MODERNA 12+ YRS VACCINE Unknown Completed [facility] HPV9 Unknown Completed [facility] Influenza Virus Vaccine Quad IM, Preserv and ABX Free 6 MO-64 YRS (FLUCELVAX) Unknown Completed [facility] SARS-COV-2 COVID-19 VACCINE - (MODERNA) Unknown Completed [facility] SARS-COV-2 COVID-19 VACCINE - (MODERNA) Unknown Completed [facility] HPV9 Unknown Completed [facility] Rho (d) Immune Globulin Unknown Completed [facility] SARS-COV-2 COVID-19 MODERNA 12+ YRS VACCINE Unknown Completed [facility] SARS-COV-2 COVID-19 MODERNA 12+ YRS VACCINE Unknown Completed [facility] HPV9 Unknown Completed [facility] Influenza Virus Vaccine Quad IM, Preserv and ABX Free 6 MO-64 YRS (FLUCELVAX) Unknown Completed [facility] SARS-COV-2 COVID-19 VACCINE - (MODERNA) Unknown Completed [facility] SARS-COV-2 COVID-19 VACCINE - (MODERNA) Unknown Completed [facility] HPV9 Unknown Completed [facility] Rho (d) Immune Globulin Unknown Completed [facility] SARS-COV-2 COVID-19 MODERNA 12+ YRS VACCINE Unknown Completed [facility] SARS-COV-2 COVID-19 MODERNA 12+ YRS VACCINE Unknown Completed [facility] HPV9 Unknown Completed [facility] Influenza Virus Vaccine Quad IM, Preserv and ABX Free 6 MO-64 YRS (FLUCELVAX) Unknown Completed [facility] SARS-COV-2 COVID-19 VACCINE - (MODERNA) Unknown Completed [facility] SARS-COV-2 COVID-19 VACCINE - (MODERNA) Unknown Completed [facility] HPV9 Unknown Completed [facility] Rho (d) Immune Globulin Unknown Completed [facility] SARS-COV-2 COVID-19 MODERNA 12+ YRS VACCINE Unknown Completed [facility] SARS-COV-2 COVID-19 MODERNA 12+ YRS VACCINE Unknown Completed [facility] HPV9 Unknown Completed [facility] Influenza Virus Vaccine Quad IM, Preserv and ABX Free 6 MO-64 YRS (FLUCELVAX) Unknown Completed [facility] SARS-COV-2 COVID-19 VACCINE - (MODERNA) Unknown Completed [facility] SARS-COV-2 COVID-19 VACCINE - (MODERNA) Unknown Completed [facility] HPV9 Unknown Completed [facility] Rho (d) Immune Globulin Unknown Completed [facility] SARS-COV-2 COVID-19 MODERNA 12+ YRS VACCINE Unknown Completed [facility] SARS-COV-2 COVID-19 MODERNA 12+ YRS VACCINE Unknown Completed [facility] HPV9 Unknown Completed [facility] Influenza Virus Vaccine Quad IM, Preserv and ABX Free 6 MO-64 YRS (FLUCELVAX) Unknown Completed [facility] SARS-COV-2 COVID-19 VACCINE - (MODERNA) Unknown Completed [facility] SARS-COV-2 COVID-19 VACCINE - (MODERNA) Unknown Completed [facility] HPV9 Unknown Completed [facility] Rho (d) Immune Globulin Unknown Completed [facility] SARS-COV-2 COVID-19 MODERNA 12+ YRS VACCINE Unknown Completed [facility] SARS-COV-2 COVID-19 MODERNA 12+ YRS VACCINE Unknown Completed [facility] HPV9 Unknown Completed [facility] Influenza Virus Vaccine Quad IM, Preserv and ABX Free 6 MO-64 YRS (FLUCELVAX) Unknown Completed [facility] SARS-COV-2 COVID-19 VACCINE - (MODERNA) Unknown Completed [facility] SARS-COV-2 COVID-19 VACCINE - (MODERNA) Unknown Completed [facility] HPV9 Unknown Completed [facility] Rho (d) Immune Globulin Unknown Completed [facility] TDAP Unknown Completed [facility] Rho (d) Immune Globulin Unknown Completed [facility] Influenza Virus Vaccine Quad IM, Preserv and ABX Free 6 MO-64 YRS (FLUCELVAX) Unknown Completed [facility] SARS-COV-2 COVID-19 MODERNA 12+ YRS VACCINE Unknown Completed [facility] SARS-COV-2 COVID-19 MODERNA 12+ YRS VACCINE Unknown Completed [facility] HPV9 Unknown Completed [facility] Influenza Virus Vaccine Quad IM, Preserv and ABX Free 6 MO-64 YRS (FLUCELVAX) Unknown Completed [facility] SARS-COV-2 COVID-19 VACCINE - (MODERNA) Unknown Completed [facility] SARS-COV-2 COVID-19 VACCINE - (MODERNA) Unknown Completed [facility] HPV9 Unknown Completed [facility] Rho (d) Immune Globulin Unknown Completed [facility] TDAP Unknown Completed [facility] Rho (d) Immune Globulin Unknown Completed [facility] Influenza Virus Vaccine Quad IM, Preserv and ABX Free 6 MO-64 YRS (FLUCELVAX) Unknown Completed [facility] SARS-COV-2 COVID-19 MODERNA 12+ YRS VACCINE Unknown Completed [facility] SARS-COV-2 COVID-19 MODERNA 12+ YRS VACCINE Unknown Completed [facility] HPV9 Unknown Completed [facility] Influenza Virus Vaccine Quad IM, Preserv and ABX Free 6 MO-64 YRS (FLUCELVAX) Unknown Completed [facility] SARS-COV-2 COVID-19 VACCINE - (MODERNA) Unknown Completed [facility] SARS-COV-2 COVID-19 VACCINE - (MODERNA) Unknown Completed [facility] HPV9 Unknown Completed [facility] Rho (d) Immune Globulin Unknown Completed [facility] TDAP Unknown Completed [facility] Rho (d) Immune Globulin Unknown Completed [facility] Influenza Virus Vaccine Quad IM, Preserv and ABX Free 6 MO-64 YRS (FLUCELVAX) Unknown Completed [facility] SARS-COV-2 COVID-19 MODERNA 12+ YRS VACCINE Unknown Completed [facility] SARS-COV-2 COVID-19 MODERNA 12+ YRS VACCINE Unknown Completed [facility] HPV9 Unknown Completed [facility] Influenza Virus Vaccine Quad IM, Preserv and ABX Free 6 MO-64 YRS (FLUCELVAX) Unknown Completed [facility] SARS-COV-2 COVID-19 VACCINE - (MODERNA) Unknown Completed [facility] SARS-COV-2 COVID-19 VACCINE - (MODERNA) [facility] Com[facility] Rho (d) Immune Globulin Unknown Completed [facility] TDAP Unknown Completed [facility] Rho (d) Immune Globulin Unknown Completed [facility] Influenza Virus Vaccine Quad IM, Preserv and ABX Free 6 MO-64 YRS (FLUCELVAX) Unknown Completed [facility] SARS-COV-2 COVID-19 MODERNA 12+ YRS VACCINE Unknown Completed [facility] SARS-COV-2 COVID-19 MODERNA 12+ YRS VACCINE Unknown Completed [facility] HPV9 Unknown Completed [facility] Influenza Virus Vaccine Quad IM, Preserv and ABX Free 6 MO-64 YRS (FLUCELVAX) Unknown Completed [facility] SARS-COV-2 COVID-19 VACCINE - (MODERNA) Unknown Completed [facility] SARS-COV-2 COVID-19 VACCINE - (MODERNA) Unknown Completed [facility] HPV9 Unknown Completed [facility] Rho (d) Immune Globulin Unknown Completed [facility] TDAP Unknown Completed [facility] Rho (d) Immune Globulin Unknown Completed [facility] Influenza Virus Vaccine Quad IM, Preserv and ABX Free 6 MO-64 YRS (FLUCELVAX) Unknown Completed [facility] SARS-COV-2 COVID-19 MODERNA 12+ YRS VACCINE Unknown Completed [facility] SARS-COV-2 COVID-19 MODERNA 12+ YRS VACCINE Unknown Completed [facility] HPV9 Unknown Completed [facility] Influenza Virus Vaccine Quad IM, Preserv and ABX Free 6 MO-64 YRS (FLUCELVAX) Unknown Completed [facility] SARS-COV-2 COVID-19 VACCINE - (MODERNA) Unknown Completed [facility] SARS-COV-2 COVID-19 VACCINE - (MODERNA) Unknown Completed [facility] HPV9 Unknown Completed [facility] Rho (d) Immune Globulin Unknown Completed [facility] TDAP Unknown Completed [facility] Rho (d) Immune Globulin Unknown Completed [facility] Influenza Virus Vaccine Quad IM, Preserv and ABX Free 6 MO-64 YRS (FLUCELVAX) Unknown Completed [facility] SARS-COV-2 COVID-19 MODERNA 12+ YRS VACCINE Unknown Completed [facility] SARS-COV-2 COVID-19 MODERNA 12+ YRS VACCINE Unknown Completed [facility] HPV9 Unknown Completed [facility] Influenza Virus Vaccine Quad IM, Preserv and ABX Free 6 MO-64 YRS (FLUCELVAX) Unknown Completed [facility] SARS-COV-2 COVID-19 VACCINE - (MODERNA) Unknown Completed [facility] SARS-COV-2 COVID-19 VACCINE - (MODERNA) Unknown Completed [facility] HPV9 Unknown [facility] [facility] Immune Globulin Unknown Completed [facility] TDAP Unknown Completed [facility] Rho (d) Immune Globulin Unknown Completed [facility] Influenza Virus Vaccine Quad IM, Preserv and ABX Free 6 MO-64 YRS (FLUCELVAX) Unknown Completed [facility] SARS-COV-2 COVID-19 MODERNA 12+ YRS VACCINE Unknown Completed [facility] SARS-COV-2 COVID-19 MODERNA 12+ YRS VACCINE Unknown Completed [facility] HPV9 Unknown Completed [facility] Influenza Virus Vaccine Quad IM, Preserv and ABX Free 6 MO-64 YRS (FLUCELVAX) Unknown Completed [facility] SARS-COV-2 COVID-19 VACCINE - (MODERNA) Unknown Completed [facility] SARS-COV-2 COVID-19 VACCINE - (MODERNA) Unknown Completed [facility] HPV9 Unknown Completed [facility] Rho (d) Immune Globulin Unknown Completed [facility] TDAP Unknown Completed [facility] Rho (d) Immune Globulin Unknown Completed [facility] Influenza Virus Vaccine Quad IM, Preserv and ABX Free 6 MO-64 YRS (FLUCELVAX) Unknown Completed [facility] SARS-COV-2 COVID-19 MODERNA 12+ YRS VACCINE Unknown Completed [facility] SARS-COV-2 COVID-19 MODERNA 12+ YRS VACCINE Unknown Completed [facility] HPV9 Unknown Completed [facility] Influenza Virus Vaccine Quad IM, Preserv and ABX Free 6 MO-64 YRS (FLUCELVAX) Unknown Completed [facility] SARS-COV-2 COVID-19 VACCINE - (MODERNA) Unknown Completed [facility] SARS-COV-2 COVID-19 VACCINE - (MODERNA) Unknown Completed [facility] HPV9 Unknown Completed [facility] Rho (d) Immune Globulin Unknown Completed [facility] TDAP Unknown Completed [facility] Rho (d) Immune Globulin Unknown Completed [facility] Influenza Virus Vaccine Quad IM, Preserv and ABX Free 6 MO-64 YRS (FLUCELVAX) Unknown Completed [facility] SARS-COV-2 COVID-19 MODERNA 12+ YRS VACCINE Unknown Completed [facility] SARS-COV-2 COVID-19 MODERNA 12+ YRS VACCINE Unknown Completed [facility] HPV9 Unknown Completed [facility] Influenza Virus Vaccine Quad IM, Preserv and ABX Free 6 MO-64 YRS (FLUCELVAX) Unknown Completed [facility] SARS-COV-2 COVID-19 VACCINE - (MODERNA) Unknown Completed [facility] SARS-COV-2 COVID-19 VACCINE - (MODERNA) Unknown [facility]pleted [facility] HPV9 Unknown Completed [facility] Rho (d) Immune Globulin Unknown Completed [facility] TDAP Unknown Completed [facility] Rho (d) Immune Globulin Unknown Completed [facility] Influenza Virus Vaccine Quad IM, Preserv and ABX Free 6 MO-64 YRS (FLUCELVAX) Unknown Completed [facility] SARS-COV-2 COVID-19 MODERNA 12+ YRS VACCINE Unknown Completed [facility] SARS-COV-2 COVID-19 MODERNA 12+ YRS VACCINE Unknown Completed [facility] HPV9 Unknown Completed [facility] Influenza Virus Vaccine Quad IM, Preserv and ABX Free 6 MO-64 YRS (FLUCELVAX) Unknown Completed [facility] SARS-COV-2 COVID-19 VACCINE - (MODERNA) Unknown Completed [facility] SARS-COV-2 COVID-19 VACCINE - (MODERNA) [facility] Rho (d) Immune Globulin Unknown Completed [facility] TDAP Unknown Completed [facility] Rho (d) Immune Globulin Unknown Completed [facility] Influenza Virus Vaccine Quad IM, Preserv and ABX Free 6 MO-64 YRS (FLUCELVAX) Unknown Completed [facility] SARS-COV-2 COVID-19 MODERNA 12+ YRS VACCINE Unknown Completed [facility] SARS-COV-2 COVID-19 MODERNA 12+ YRS VACCINE Unknown Completed [facility] HPV9 Unknown Completed [facility] Influenza Virus Vaccine Quad IM, Preserv and ABX Free 6 MO-64 YRS (FLUCELVAX) Unknown Completed [facility] SARS-COV-2 COVID-19 VACCINE - (MODERNA) Unknown Completed [facility] SARS-COV-2 COVID-19 VACCINE - (MODERNA) Unknown Completed [facility] HPV9 Unknown Completed [facility] Rho (d) Immune Globulin Unknown Completed [facility] TDAP Unknown Completed [facility] Rho (d) Immune Globulin Unknown Completed [facility] Influenza Virus Vaccine Quad IM, Preserv and ABX Free 6 MO-64 YRS (FLUCELVAX) Unknown Completed [facility] SARS-COV-2 COVID-19 MODERNA 12+ YRS VACCINE Unknown Completed [facility] SARS-COV-2 COVID-19 MODERNA 12+ YRS VACCINE Unknown Completed [facility] HPV9 Unknown Completed [facility] Influenza Virus Vaccine Quad IM, Preserv and ABX Free 6 MO-64 YRS (FLUCELVAX) Unknown Completed [facility] SARS-COV-2 COVID-19 VACCINE - (MODERNA) Unknown Completed [facility] SARS-COV-2 COVID-19 VACCINE - (MODERNA) Unknown Completed [facility] HPV9 Unknown Completed [facility] Rho (d) Immune Globulin Unknown Completed [facility] TDAP Unknown Completed [facility] Rho (d) Immune Globulin Unknown Completed [facility] Influenza Virus Vaccine Quad IM, Preserv and ABX Free 6 MO-64 YRS (FLUCELVAX) Unknown Completed [facility] SARS-COV-2 COVID-19 MODERNA 12+ YRS VACCINE Unknown Completed [facility] SARS-COV-2 COVID-19 MODERNA 12+ YRS VACCINE Unknown Completed [facility] HPV9 Unknown Completed [facility] Influenza Virus Vaccine Quad IM, Preserv and ABX Free 6 MO-64 YRS (FLUCELVAX) Unknown Completed [facility] SARS-COV-2 COVID-19 VACCINE - (MODERNA) Unknown Completed [facility] SARS-COV-2 COVID-19 VACCINE - (MODERNA) Unknown Completed [facility] HPV9 Unknown Completed [facility] Rho (d) Immune Globulin Unknown Completed [facility] TDAP Unknown Completed [facility] Rho (d) Immune Globulin Unknown Completed [facility] Influenza Virus Vaccine Quad IM, Preserv and ABX Free 6 MO-64 YRS (FLUCELVAX) Unknown Completed [facility] SARS-COV-2 COVID-19 MODERNA 12+ YRS VACCINE Unknown Completed [facility] SARS-COV-2 COVID-19 MODERNA 12+ YRS VACCINE Unknown Completed [facility] HPV9 Unknown Completed [facility] Influenza Virus Vaccine Quad IM, Preserv and ABX Free 6 MO-64 YRS (FLUCELVAX) Unknown Completed [facility] SARS-COV-2 COVID-19 VACCINE - (MODERNA) Unknown Completed [facility] SARS-COV-2 COVID-19 VACCINE - (MODERNA) [facility] Completed [facility] Rho (d) Immune Globulin Unknown Completed [facility] TDAP Unknown Completed [facility] Rho (d) Immune Globulin Unknown Completed [facility] Influenza Virus Vaccine Quad IM, Preserv and ABX Free 6 MO-64 YRS (FLUCELVAX) Unknown Completed [facility] SARS-COV-2 COVID-19 MODERNA 12+ YRS VACCINE Unknown Completed [facility] SARS-COV-2 COVID-19 MODERNA 12+ YRS VACCINE Unknown Completed [facility] HPV9 Unknown Completed [facility] Influenza Virus Vaccine Quad IM, Preserv and ABX Free 6 MO-64 YRS (FLUCELVAX) Unknown Completed [facility] SARS-COV-2 COVID-19 VACCINE - (MODERNA) Unknown [facility]OV-[facility] COVID-19 VACCINE - (MODERNA) Unknown Completed [facility] HPV9 Unknown Completed [facility] Rho (d) Immune Globulin Unknown Completed [facility] TDAP Unknown Completed [facility] Rho (d) Immune Globulin Unknown Completed [facility] Influenza Virus Vaccine Quad IM, Preserv and ABX Free 6 MO-64 YRS (FLUCELVAX) Unknown Completed [facility] SARS-COV-2 COVID-19 MODERNA 12+ YRS VACCINE Unknown Completed [facility] SARS-COV-2 COVID-19 MODERNA 12+ YRS VACCINE Unknown Completed [facility] HPV9 Unknown Completed [facility] Influenza Virus Vaccine Quad IM, Preserv and ABX Free 6 MO-64 YRS (FLUCELVAX) Unknown Completed [facility] SARS-COV-2 COVID-19 VACCINE - (MODERNA) Unknown [facility] COVID-19 VACCINE - (MODERNA) Unknown [facility] HPV9 Unknown Completed [facility] Rho (d) Immune Globulin Unknown Completed [facility] TDAP Unknown Completed [facility] Rho (d) Immune Globulin Unknown Completed [facility] Influenza Virus Vaccine Quad IM, Preserv and ABX Free 6 MO-64 YRS (FLUCELVAX) Unknown Completed [facility] SARS-COV-2 COVID-19 MODERNA 12+ YRS VACCINE Unknown Completed [facility] SARS-COV-2 COVID-19 MODERNA 12+ YRS VACCINE Unknown Completed [facility] HPV9 Unknown Completed [facility] Influenza Virus Vaccine Quad IM, Preserv and ABX Free 6 MO-64 YRS (FLUCELVAX) Unknown Completed [facility] SARS-COV-2 COVID-19 VACCINE - (MODERNA) Unknown Completed [facility] SARS-COV-2 COVID-19 VACCINE - (MODERNA) Unknown Completed [facility] HPV9 Unknown Completed [facility] Rho (d) Immune Globulin Unknown Completed [facility] TDAP Unknown Completed [facility] Rho (d) Immune Globulin Unknown Completed [facility] Influenza Virus Vaccine Quad IM, Preserv and ABX Free 6 MO-64 YRS (FLUCELVAX) Unknown Completed [facility] SARS-COV-2 COVID-19 MODERNA 12+ YRS VACCINE Unknown Completed [facility] SARS-COV-2 COVID-19 MODERNA 12+ YRS VACCINE Unknown Completed [facility] HPV9 Unknown Completed [facility] Influenza Virus Vaccine Quad IM, Preserv and ABX Free 6 MO-64 YRS (FLUCELVAX) Unknown Completed [facility] SARS-COV-2 COVID-19 VACCINE - (MODERNA) Unknown Completed [facility] SARS-COV-2 COVID-19 VACCINE - (MODERNA) Unknown Completed [facility] HPV9 Unknown Completed [facility] Rho (d) Immune Globulin Unknown Completed [facility] TDAP Unknown Completed [facility] Rho (d) Immune Globulin Unknown Completed [facility] Influenza Virus Vaccine Quad IM, Preserv and ABX Free 6 MO-64 YRS (FLUCELVAX) Unknown Completed [facility] SARS-COV-2 COVID-19 MODERNA 12+ YRS VACCINE Unknown Completed [facility] SARS-COV-2 COVID-19 MODERNA 12+ YRS VACCINE Unknown Completed [facility] HPV9 Unknown Completed [facility] Influenza Virus Vaccine Quad IM, Preserv and ABX Free 6 MO-64 YRS (FLUCELVAX) Unknown Completed [facility] SARS-COV-2 COVID-19 VACCINE - (MODERNA) Unknown Completed [facility] SARS-COV-2 COVID-19 VACCINE - (MODERNA) Unknown Completed [facility] HPV9 Unknown Completed [facility] Rho (d) Immune Globulin Unknown Completed [facility] TDAP Unknown Completed [facility] Rho (d) Immune Globulin Unknown Completed [facility] Influenza Virus Vaccine Quad IM, Preserv and ABX Free 6 MO-64 YRS (FLUCELVAX) Unknown Completed [facility] SARS-COV-2 COVID-19 MODERNA 12+ YRS VACCINE Unknown Completed [facility] SARS-COV-2 COVID-19 MODERNA 12+ YRS VACCINE Unknown Completed [facility] HPV9 Unknown Completed [facility] Influenza Virus Vaccine Quad IM, Preserv and ABX Free 6 MO-64 YRS (FLUCELVAX) Unknown Completed [facility] SARS-COV-2 COVID-19 VACCINE - (MODERNA) Unknown Completed [facility] SARS-COV-2 COVID-19 VACCINE - (MODERNA) Unknown Completed [facility] HPV9 Unknown Completed [facility] Rho (d) Immune Globulin Unknown Completed [facility] TDAP Unknown Completed [facility] Rho (d) Immune Globulin Unknown Completed [facility] Influenza Virus Vaccine Quad IM, Preserv and ABX Free 6 MO-64 YRS (FLUCELVAX) Unknown Completed [facility] Rho (d) Immune Globulin Unknown Completed [facility] SARS-COV-2 COVID-19 MODERNA 12+ YRS VACCINE Unknown Completed [facility] SARS-COV-2 COVID-19 MODERNA 12+ YRS VACCINE Unknown Completed [facility] HPV9 Unknown Completed [facility] Influenza Virus Vaccine Quad IM, Preserv and ABX Free 6 MO-64 YRS (FLUCELVAX) Unknown Completed [facility] SARS-COV-2 COVID-19 VACCINE - (MODERNA) Unknown Completed [facility] SARS-COV-2 COVID-19 VACCINE - (MODERNA) Unknown Completed [facility] HPV9 Unknown Completed [facility] Rho (d) Immune Globulin Unknown Completed [facility] TDAP Unknown Completed [facility] Rho (d) Immune Globulin Unknown Completed [facility] Influenza Virus Vaccine Quad IM, Preserv and ABX Free 6 MO-64 YRS (FLUCELVAX) Unknown Completed [facility] SARS-COV-2 COVID-19 MODERNA 12+ YRS VACCINE Unknown Completed [facility] SARS-COV-2 COVID-19 MODERNA 12+ YRS VACCINE Unknown Completed [facility] HPV9 Unknown Completed [facility] Influenza Virus Vaccine Quad IM, Preserv and ABX Free 6 MO-64 YRS (FLUCELVAX) Unknown Completed [facility] SARS-COV-2 COVID-19 VACCINE - (MODERNA) Unknown Completed [facility] SARS-COV-2 COVID-19 VACCINE - (MODERNA) Unknown Completed [facility] HPV9 Unknown Completed [facility] Rho (d) Immune Globulin Unknown Completed [facility] TDAP Unknown Completed [facility] Rho (d) Immune Globulin Unknown Completed [facility] Influenza Virus Vaccine Quad IM, Preserv and ABX Free 6 MO-64 YRS (FLUCELVAX) Unknown Completed [facility] SARS-COV-2 COVID-19 MODERNA 12+ YRS VACCINE Unknown Completed [facility] SARS-COV-2 COVID-19 MODERNA 12+ YRS VACCINE Unknown Completed [facility] HPV9 Unknown Completed [facility] Influenza Virus Vaccine Quad IM, Preserv and ABX Free 6 MO-64 YRS (FLUCELVAX) Unknown Completed [facility] SARS-COV-2 COVID-19 VACCINE - (MODERNA) Unknown Completed [facility] SARS-COV-2 COVID-19 VACCINE - (MODERNA) Unknown Completed [facility] HPV9 Unknown Completed [facility] Rho (d) Immune Globulin Unknown Completed [facility] TDAP Unknown Completed [facility] Rho (d) Immune Globulin Unknown Completed [facility] Influenza Virus Vaccine Quad IM, Preserv and ABX Free 6 MO-64 YRS (FLUCELVAX) Unknown Completed [facility] Rho (d) Immune Globulin Unknown Completed [facility] HPV9 Unknown Completed [facility] SARS-COV-2 COVID-19 MODERNA 12+ YRS VACCINE Unknown Completed [facility] SARS-COV-2 COVID-19 MODERNA 12+ YRS VACCINE Unknown Completed [facility] HPV9 Unknown Completed [facility] Influenza Virus Vaccine Quad IM, Preserv and ABX Free 6 MO-64 YRS (FLUCELVAX) Unknown Completed [facility] SARS-COV-2 COVID-19 VACCINE - (MODERNA) Unknown Completed [facility] SARS-COV-2 COVID-19 VACCINE - (MODERNA) Unknown Completed [facility] HPV9 Unknown Completed [facility] Rho (d) Immune Globulin Unknown Completed [facility] TDAP Unknown Completed [facility] Rho (d) Immune Globulin Unknown Completed [facility] Influenza Virus Vaccine Quad IM, Preserv and ABX Free 6 MO-64 YRS (FLUCELVAX) Unknown Completed [facility] Rho (d) Immune Globulin Unknown Completed [facility] HPV9 Unknown Completed [facility] SARS-COV-2 COVID-19 MODERNA 12+ YRS VACCINE Unknown Completed [facility] SARS-COV-2 COVID-19 MODERNA 12+ YRS VACCINE Unknown Completed [facility] HPV9 Unknown Completed [facility] Influenza Virus Vaccine Quad IM, Preserv and ABX Free 6 MO-64 YRS (FLUCELVAX) Unknown Completed [facility] SARS-COV-2 COVID-19 VACCINE - (MODERNA) Unknown Completed [facility] SARS-COV-2 COVID-19 VACCINE - (MODERNA) [facility] Completed [facility] Rho (d) Immune Globulin Unknown Completed [facility] TDAP Unknown Completed [facility] Rho (d) Immune Globulin Unknown Completed [facility] Influenza Virus Vaccine Quad IM, Preserv and ABX Free 6 MO-64 YRS (FLUCELVAX) Unknown Completed [facility] Rho (d) Immune Globulin Unknown Completed [facility] HPV9 Unknown Completed [facility] SARS-COV-2 COVID-19 MODERNA 12+ YRS VACCINE Unknown Completed [facility] SARS-COV-2 COVID-19 MODERNA 12+ YRS VACCINE Unknown Completed [facility] HPV9 Unknown Completed [facility] Influenza Virus Vaccine Quad IM, Preserv and ABX Free 6 MO-64 YRS (FLUCELVAX) Unknown Completed [facility] SARS-COV-2 COVID-19 VACCINE - (MODERNA) Unknown Completed [facility] SARS-COV-2 COVID-19 VACCINE - (MODERNA) Unknown Completed [facility] HPV9 Unknown Completed [facility] Rho (d) Immune Globulin Unknown Completed [facility] TDAP Unknown Completed [facility] Rho (d) Immune Globulin Unknown Completed [facility] Influenza Virus Vaccine Quad IM, Preserv and ABX Free 6 MO-64 YRS (FLUCELVAX) Unknown Completed [facility] SARS-COV-2 COVID-19 MODERNA 12+ YRS VACCINE Unknown Completed [facility] SARS-COV-2 COVID-19 MODERNA 12+ YRS VACCINE Unknown Completed [facility] HPV9 Unknown Completed [facility] Influenza Virus Vaccine Quad IM, Preserv and ABX Free 6 MO-64 YRS (FLUCELVAX) Unknown Completed [facility] SARS-COV-2 COVID-19 VACCINE - (MODERNA) Unknown Completed [facility] SARS-COV-2 COVID-19 VACCINE - (MODERNA) Unknown Completed [facility] HPV9 Unknown Completed [facility] Rho (d) Immune Globulin Unknown Completed [facility] TDAP Unknown Completed [facility] Rho (d) Immune Globulin Unknown Completed [facility] Influenza Virus Vaccine Quad IM, Preserv and ABX Free 6 MO-64 YRS (FLUCELVAX) Unknown Completed [facility] SARS-COV-2 COVID-19 MODERNA 12+ YRS VACCINE Unknown Completed [facility] SARS-COV-2 COVID-19 MODERNA 12+ YRS VACCINE Unknown Completed [facility] HPV9 Unknown Completed [facility] Influenza Virus Vaccine Quad IM, Preserv and ABX Free 6 MO-64 YRS (FLUCELVAX) Unknown Completed [facility] SARS-COV-2 COVID-19 VACCINE - (MODERNA) Unknown Completed [facility] SARS-COV-2 COVID-19 VACCINE - (MODERNA) Unknown Completed [facility] HPV9 Unknown Completed [facility] Rho (d) Immune Globulin Unknown Completed [facility] TDAP Unknown Completed [facility] Rho (d) Immune Globulin Unknown Completed [facility] Influenza Virus Vaccine Quad IM, Preserv and ABX Free 6 MO-64 YRS (FLUCELVAX) Unknown Completed [facility] Rho (d) Immune Globulin Unknown Completed [facility] SARS-COV-2 COVID-19 MODERNA 12+ YRS VACCINE Unknown Completed [facility] SARS-COV-2 COVID-19 MODERNA 12+ YRS VACCINE Unknown Completed [facility] HPV9 Unknown Completed [facility] Influenza Virus Vaccine Quad IM, Preserv and ABX Free 6 MO-64 YRS (FLUCELVAX) Unknown Completed [facility] SARS-COV-2 COVID-19 VACCINE - (MODERNA) Unknown Completed [facility] SARS-COV-2 COVID-19 VACCINE - (MODERNA) Unknown Completed [facility] HPV9 Unknown Completed [facility] Rho (d) Immune Globulin Unknown Completed [facility] TDAP Unknown Completed [facility] Rho (d) Immune Globulin Unknown Completed [facility] Influenza Virus Vaccine Quad IM, Preserv and ABX Free 6 MO-64 YRS (FLUCELVAX) Unknown Completed [facility] Rho (d) Immune Globulin Unknown Completed [facility] HPV9 Unknown Completed [facility] SARS-COV-2 COVID-19 MODERNA 12+ YRS VACCINE Unknown Completed [facility] SARS-COV-2 COVID-19 MODERNA 12+ YRS VACCINE Unknown Completed [facility] HPV9 Unknown Completed [facility] Influenza Virus Vaccine Quad IM, Preserv and ABX Free 6 MO-64 YRS (FLUCELVAX) Unknown Completed [facility] SARS-COV-2 COVID-19 VACCINE - (MODERNA) Unknown Completed [facility] SARS-COV-2 COVID-19 VACCINE - (MODERNA) Unknown Completed [facility] HPV9 Unknown Completed [facility] Rho (d) Immune Globulin Unknown Completed [facility] TDAP Unknown Completed [facility] Rho (d) Immune Globulin Unknown Completed [facility] Influenza Virus Vaccine Quad IM, Preserv and ABX Free 6 MO-64 YRS (FLUCELVAX) Unknown Completed [facility] Rho (d) Immune Globulin Unknown Completed [facility] HPV9 Unknown Completed [facility] SARS-COV-2 COVID-19 MODERNA 12+ YRS VACCINE Unknown Completed [facility] SARS-COV-2 COVID-19 MODERNA 12+ YRS VACCINE Unknown Completed [facility] HPV9 Unknown Completed [facility] Influenza Virus Vaccine Quad IM, Preserv and ABX Free 6 MO-64 YRS (FLUCELVAX) Unknown Completed [facility] SARS-COV-2 COVID-19 VACCINE - (MODERNA) Unknown Completed [facility] SARS-COV-2 COVID-19 VACCINE - (MODERNA) Unknown Completed [facility] HPV9 Unknown Completed [facility] Rho (d) Immune Globulin Unknown Completed [facility] TDAP Unknown Completed [facility] Rho (d) Immune Globulin Unknown Completed [facility] Influenza Virus Vaccine Quad IM, Preserv and ABX Free 6 MO-64 YRS (FLUCELVAX) Unknown Completed [facility] Rho (d) Immune Globulin Unknown Completed [facility] HPV9 Unknown Completed [facility] SARS-COV-2 COVID-19 MODERNA 12+ YRS VACCINE Unknown Completed [facility] SARS-COV-2 COVID-19 MODERNA 12+ YRS VACCINE Unknown Completed [facility] HPV9 Unknown Completed [facility] Influenza Virus Vaccine Quad IM, Preserv and ABX Free 6 MO-64 YRS (FLUCELVAX) Unknown Completed [facility] SARS-COV-2 COVID-19 VACCINE - (MODERNA) Unknown Completed [facility] SARS-COV-2 COVID-19 VACCINE - (MODERNA) Unknown Completed [facility] HPV9 Unknown Completed [facility] Rho (d) Immune Globulin Unknown Completed [facility] TDAP Unknown Completed [facility] Rho (d) Immune Globulin Unknown Completed [facility] Influenza Virus Vaccine Quad IM, Preserv and ABX Free 6 MO-64 YRS (FLUCELVAX) Unknown Completed [facility] Rho (d) Immune Globulin Unknown Completed [facility] HPV9 Unknown Completed [facility] SARS-COV-2 COVID-19 MODERNA 12+ YRS VACCINE Unknown Completed [facility] SARS-COV-2 COVID-19 MODERNA 12+ YRS VACCINE Unknown Completed [facility] HPV9 Unknown Completed [facility] Influenza Virus Vaccine Quad IM, Preserv and ABX Free 6 MO-64 YRS (FLUCELVAX) Unknown Completed [facility] SARS-COV-2 COVID-19 VACCINE - (MODERNA) Unknown Completed [facility] SARS-COV-2 COVID-19 VACCINE - (MODERNA) Unknown Completed [facility] HPV9 Unknown Completed [facility] Rho (d) Immune Globulin Unknown Completed [facility] TDAP Unknown Completed [facility] Rho (d) Immune Globulin Unknown Completed [facility] Influenza Virus Vaccine Quad IM, Preserv and ABX Free 6 MO-64 YRS (FLUCELVAX) Unknown Completed [facility] Rho (d) Immune Globulin Unknown Completed [facility] HPV9 Unknown Completed [facility] SARS-COV-2 COVID-19 MODERNA 12+ YRS VACCINE Unknown Completed [facility] SARS-COV-2 COVID-19 MODERNA 12+ YRS VACCINE Unknown Completed [facility] HPV9 Unknown Completed [facility] Influenza Virus Vaccine Quad IM, Preserv and ABX Free 6 MO-64 YRS (FLUCELVAX) Unknown Completed [facility] SARS-COV-2 COVID-19 VACCINE - (MODERNA) Unknown Completed [facility] SARS-COV-2 COVID-19 [facility]ACCINE - (MODERNA) [facility] Rho (d) Immune Globulin Unknown Completed [facility] TDAP Unknown Completed [facility] Rho (d) Immune Globulin Unknown Completed [facility] Influenza Virus Vaccine Quad IM, Preserv and ABX Free 6 MO-64 YRS (FLUCELVAX) Unknown Completed [facility] Rho (d) Immune Globulin Unknown Completed [facility] HPV9 Unknown Completed [facility] SARS-COV-2 COVID-19 MODERNA 12+ YRS VACCINE Unknown Completed [facility] SARS-COV-2 COVID-19 MODERNA 12+ YRS VACCINE Unknown Completed [facility] HPV9 Unknown Completed [facility] Influenza Virus Vaccine Quad IM, Preserv and ABX Free 6 MO-64 YRS (FLUCELVAX) Unknown Completed [facility] SARS-COV-2 COVID-19 VACCINE - (MODERNA) Unknown Completed [facility] SARS-COV-2 COVID-19 VACCINE - (MODERNA) Unknown Completed [facility] HPV9 Unknown Completed [facility] Rho (d) Immune Globulin Unknown Completed [facility] TDAP Unknown Completed [facility] Rho (d) Immune Globulin Unknown Completed [facility] Influenza Virus Vaccine Quad IM, Preserv and ABX Free 6 MO-64 YRS (FLUCELVAX) Unknown Completed [facility] Rho (d) Immune Globulin Unknown Completed [facility] HPV9 Unknown Completed [facility] SARS-COV-2 COVID-19 MODERNA 12+ YRS VACCINE Unknown Completed [facility] SARS-COV-2 COVID-19 MODERNA 12+ YRS VACCINE Unknown Completed [facility] HPV9 Unknown Completed [facility] Influenza Virus Vaccine Quad IM, Preserv and ABX Free 6 MO-64 YRS (FLUCELVAX) Unknown Completed [facility] SARS-COV-2 COVID-19 VACCINE - (MODERNA) Unknown Completed [facility] SARS-COV-2 COVID-19 VACCINE - (MODERNA) Unknown Completed [facility] HPV9 Unknown Completed [facility] Rho (d) Immune Globulin Unknown Completed [facility] TDAP Unknown Completed [facility] Rho (d) Immune Globulin Unknown Completed [facility] Influenza Virus Vaccine Quad IM, Preserv and ABX Free 6 MO-64 YRS (FLUCELVAX) Unknown Completed [facility] Rho (d) Immune Globulin Unknown Completed [facility] HPV9 Unknown Completed [facility] SARS-COV-2 COVID-19 MODERNA 12+ YRS VACCINE Unknown Completed [facility] SARS-COV-2 COVID-19 MODERNA 12+ YRS VACCINE Unknown Completed [facility] HPV9 Unknown Completed [facility] Influenza Virus Vaccine Quad IM, Preserv and ABX Free 6 MO-64 YRS (FLUCELVAX) Unknown Completed [facility] SARS-COV-2 COVID-19 VACCINE - (MODERNA) Unknown Completed [facility] SARS-COV-2 COVID-19 VACCINE - (MODERNA) Unknown Completed [facility] HPV9 Unknown Completed [facility] Rho (d) Immune Globulin Unknown Completed [facility] TDAP Unknown Completed [facility] Rho (d) Immune Globulin Unknown Completed [facility] Influenza Virus Vaccine Quad IM, Preserv and ABX Free 6 MO-64 YRS (FLUCELVAX) Unknown Completed [facility] Rho (d) Immune Globulin Unknown Completed [facility] HPV9 Unknown Completed [facility] SARS-COV-2 COVID-19 MODERNA 12+ YRS VACCINE Unknown Completed [facility] SARS-COV-2 COVID-19 MODERNA 12+ YRS VACCINE Unknown Completed [facility] HPV9 Unknown Completed [facility] Influenza Virus Vaccine Quad IM, Preserv and ABX Free 6 MO-64 YRS (FLUCELVAX) Unknown Completed [facility] SARS-COV-2 COVID-19 VACCINE - (MODERNA) Unknown Completed [facility] SARS-COV-2 COVID-19 VACCINE - (MODERNA) Unknown Completed [facility] HPV9 Unknown Completed [facility] Rho (d) Immune Globulin Unknown Completed [facility] TDAP Unknown Completed [facility] Rho (d) Immune Globulin Unknown Completed [facility] Influenza Virus Vaccine Quad IM, Preserv and ABX Free 6 MO-64 YRS (FLUCELVAX) Unknown Completed [facility] Rho (d) Immune Globulin Unknown Completed [facility] HPV9 Unknown Completed [facility] SARS-COV-2 COVID-19 MODERNA 12+ YRS VACCINE Unknown Completed [facility] SARS-COV-2 COVID-19 MODERNA 12+ YRS VACCINE Unknown Completed [facility] HPV9 Unknown Completed [facility] Influenza Virus Vaccine Quad IM, Preserv and ABX Free 6 MO-64 YRS (FLUCELVAX) Unknown Completed [facility] SARS-COV-2 COVID-19 VACCINE - (MODERNA) Unknown Completed [facility] SARS-COV-2 COVID-19 VACCINE - (MODERNA) Unknown Completed [facility] HPV9 Unknown Completed [facility] Rho (d) Immune Globulin Unknown Completed [facility] TDAP Unknown Completed [facility] Rho (d) Immune Globulin Unknown Completed [facility] Influenza Virus Vaccine Quad IM, Preserv and ABX Free 6 MO-64 YRS (FLUCELVAX) Unknown Completed [facility] Rho (d) Immune Globulin Unknown Completed [facility] HPV9 Unknown Completed [facility] SARS-COV-2 COVID-19 MODERNA 12+ YRS VACCINE Unknown Completed [facility] SARS-COV-2 COVID-19 MODERNA 12+ YRS VACCINE Unknown Completed [facility] HPV9 Unknown Completed [facility] Influenza Virus Vaccine Quad IM, Preserv and ABX Free 6 MO-64 YRS (FLUCELVAX) Unknown Completed [facility] SARS-COV-2 COVID-19 VACCINE - (MODERNA) Unknown Completed [facility] SARS-COV-2 COVID-19 VACCINE - (MODERNA) Unknown Completed [facility] HPV9 Unknown Completed [facility] Rho (d) Immune Globulin Unknown Completed [facility] TDAP Unknown Completed [facility] Rho (d) Immune Globulin Unknown Completed [facility] Influenza Virus Vaccine Quad IM, Preserv and ABX Free 6 MO-64 YRS (FLUCELVAX) Unknown Completed [facility] Rho (d) Immune Globulin Unknown Completed [facility] HPV9 Unknown Completed [facility] SARS-COV-2 COVID-19 MODERNA 12+ YRS VACCINE Unknown Completed [facility] SARS-COV-2 COVID-19 MODERNA 12+ YRS VACCINE Unknown Completed [facility] HPV9 Unknown Completed [facility] Influenza Virus Vaccine Quad IM, Preserv and ABX Free 6 MO-64 YRS (FLUCELVAX) Unknown Completed [facility] SARS-COV-2 COVID-19 VACCINE - (MODERNA) Unknown Completed [facility] SARS-COV-2 COVID-19 VACCINE - (MODERNA) Unknown Completed [facility] HPV9 Unknown Completed [facility] Rho (d) Immune Globulin Unknown Completed [facility] TDAP Unknown Completed [facility] Rho (d) Immune Globulin Unknown Completed [facility] Influenza Virus Vaccine Quad IM, Preserv and ABX Free 6 MO-64 YRS (FLUCELVAX) Unknown Completed [facility] Rho (d) Immune Globulin Unknown Completed [facility] HPV9 Unknown Completed [facility] SARS-COV-2 COVID-19 MODERNA 12+ YRS VACCINE Unknown Completed [facility] SARS-COV-2 COVID-19 MODERNA 12+ YRS VACCINE Unknown Completed [facility] HPV9 Unknown Completed [facility] Influenza Virus Vaccine Quad IM, Preserv and ABX Free 6 MO-64 YRS (FLUCELVAX) Unknown Completed [facility] SARS-COV-2 COVID-19 VACCINE - (MODERNA) Unknown Completed [facility] SARS-COV-2 COVID-19 VACCINE - (MODERNA) Unknown Completed [facility] HPV9 Unknown Completed [facility] Rho (d) Immune Globulin Unknown Completed [facility] TDAP Unknown Completed [facility] Rho (d) Immune Globulin Unknown Completed [facility] Influenza Virus Vaccine Quad IM, Preserv and ABX Free 6 MO-64 YRS (FLUCELVAX) Unknown Completed [facility] Rho (d) Immune Globulin Unknown Completed [facility] HPV9 Unknown Completed [facility] SARS-COV-2 COVID-19 MODERNA 12+ YRS VACCINE Unknown Completed [facility] SARS-COV-2 COVID-19 MODERNA 12+ YRS VACCINE Unknown Completed [facility] HPV9 Unknown Completed [facility] Influenza Virus Vaccine Quad IM, Preserv and ABX Free 6 MO-64 YRS (FLUCELVAX) Unknown Completed [facility] SARS-COV-2 COVID-19 VACCINE - (MODERNA) Unknown Completed [facility] SARS-COV-2 COVID-19 VACCINE - (MODERNA) Unknown Completed [facility] HPV9 Unknown Completed [facility] Rho (d) Immune Globulin Unknown Completed [facility] TDAP Unknown Completed [facility] Rho (d) Immune Globulin Unknown Completed [facility] Influenza Virus Vaccine Quad IM, Preserv and ABX Free 6 MO-64 YRS (FLUCELVAX) Unknown Completed [facility] Rho (d) Immune Globulin Unknown Completed [facility] HPV9 Unknown Completed [facility] SARS-COV-2 COVID-19 MODERNA 12+ YRS VACCINE Unknown Completed [facility] SARS-COV-2 COVID-19 MODERNA 12+ YRS VACCINE Unknown Completed [facility] HPV9 Unknown Completed [facility] Influenza Virus Vaccine Quad IM, Preserv and ABX Free 6 MO-64 YRS (FLUCELVAX) Unknown Completed [facility] SARS-COV-2 COVID-19 VACCINE - (MODERNA) Unknown Completed [facility] SARS-COV-2 COVID-19 VACCINE - (MODERNA) Unknown Completed [facility] HPV9 Unknown Completed [facility] Rho (d) Immune Globulin Unknown Completed [facility] TDAP Unknown Completed [facility] Rho (d) Immune Globulin Unknown Completed [facility] Influenza Virus Vaccine Quad IM, Preserv and ABX Free 6 MO-64 YRS (FLUCELVAX) Unknown Completed [facility] Rho (d) Immune Globulin Unknown Completed [facility] HPV9 Unknown Completed [facility] SARS-COV-2 COVID-19 MODERNA 12+ YRS VACCINE Unknown Completed [facility] SARS-COV-2 COVID-19 MODERNA 12+ YRS VACCINE Unknown Completed [facility] HPV9 Unknown Completed [facility] Influenza Virus Vaccine Quad IM, Preserv and ABX Free 6 MO-64 YRS (FLUCELVAX) Unknown Completed [facility] SARS-COV-2 COVID-19 VACCINE - (MODERNA) Unknown Completed [facility] SARS-COV-2 COVID-19 VACCINE - (MODERNA) Unknown Completed [facility] HPV9 Unknown Completed [facility] Rho (d) Immune Globulin Unknown Completed [facility] TDAP Unknown Completed [facility] Rho (d) Immune Globulin Unknown Completed [facility] Influenza Virus Vaccine Quad IM, Preserv and ABX Free 6 MO-64 YRS (FLUCELVAX) Unknown Completed [facility] Rho (d) Immune Globulin Unknown Completed [facility] HPV9 Unknown Completed [facility] SARS-COV-2 COVID-19 MODERNA 12+ YRS VACCINE Unknown Completed [facility] SARS-COV-2 COVID-19 MODERNA 12+ YRS VACCINE Unknown Completed [facility] HPV9 Unknown Completed [facility] Influenza Virus Vaccine Quad IM, Preserv and ABX Free 6 MO-64 YRS (FLUCELVAX) Unknown Completed [facility] SARS-COV-2 COVID-19 VACCINE - (MODERNA) Unknown Completed [facility] SARS-COV-2 COVID-19 VACCINE - (MODERNA) Unknown Completed [facility] HPV9 Unknown Completed [facility] Rho (d) Immune Globulin Unknown Completed [facility] TDAP Unknown Completed [facility] Rho (d) Immune Globulin Unknown Completed [facility] Influenza Virus Vaccine Quad IM, Preserv and ABX Free 6 MO-64 YRS (FLUCELVAX) Unknown Completed [facility] Rho (d) Immune Globulin Unknown Completed [facility] HPV9 Unknown Completed [facility] SARS-COV-2 COVID-19 MODERNA 12+ YRS VACCINE Unknown Completed [facility] SARS-COV-2 COVID-19 MODERNA 12+ YRS VACCINE Unknown Completed [facility] HPV9 Unknown Completed [facility] Influenza Virus Vaccine Quad IM, Preserv and ABX Free 6 MO-64 YRS (FLUCELVAX) Unknown Completed [facility] SARS-COV-2 COVID-19 VACCINE - (MODERNA) Unknown Completed [facility] SARS-COV-2 COVID-19 VACCINE - (MODERNA) Unknown Completed [facility] HPV9 Unknown Completed [facility] Rho (d) Immune Globulin Unknown Completed [facility] TDAP Unknown Completed [facility] Rho (d) Immune Globulin Unknown Completed [facility] Influenza Virus Vaccine Quad IM, Preserv and ABX Free 6 MO-64 YRS (FLUCELVAX) Unknown Completed [facility] Rho (d) Immune Globulin Unknown Completed [facility] HPV9 Unknown Completed [facility] SARS-COV-2 COVID-19 MODERNA 12+ YRS VACCINE Unknown Completed [facility] SARS-COV-2 COVID-19 MODERNA 12+ YRS VACCINE Unknown Completed [facility] HPV9 Unknown Completed [facility] Influenza Virus Vaccine Quad IM, Preserv and ABX Free 6 MO-64 YRS (FLUCELVAX) Unknown Completed [facility] SARS-COV-2 COVID-19 VACCINE - (MODERNA) [facility] SARS-COV-2 COVID-19 VACCINE - (MODERNA) Unknown Completed [facility] HPV9 Unknown Completed [facility] Rho (d) Immune Globulin Unknown Completed [facility] TDAP Unknown Completed [facility] Rho (d) Immune Globulin Unknown Completed [facility] Influenza Virus Vaccine Quad IM, Preserv and ABX Free 6 MO-64 YRS (FLUCELVAX) Unknown Completed [facility] Rho (d) Immune Globulin Unknown Completed [facility] HPV9 Unknown Completed [facility] SARS-COV-2 COVID-19 MODERNA 12+ YRS VACCINE Unknown Completed [facility] SARS-COV-2 COVID-19 MODERNA 12+ YRS VACCINE Unknown Completed [facility] HPV9 Unknown Completed [facility] Influenza Virus Vaccine Quad IM, Preserv and ABX Free 6 MO-64 YRS (FLUCELVAX) Unknown Completed [facility] SARS-COV-2 COVID-19 VACCINE - (MODERNA) Unknown Completed [facility] SARS-COV-2 COVID-19 VACCINE - (MODERNA) Unknown Completed [facility] HPV9 Unknown Completed [facility] Rho (d) Immune Globulin Unknown Completed [facility] TDAP Unknown Completed [facility] Rho (d) Immune Globulin Unknown Completed [facility] Influenza Virus Vaccine Quad IM, Preserv and ABX Free 6 MO-64 YRS (FLUCELVAX) Unknown Completed [facility] Rho (d) Immune Globulin Unknown Completed [facility] HPV9 Unknown Completed [facility] SARS-COV-2 COVID-19 MODERNA 12+ YRS VACCINE Unknown Completed [facility] SARS-COV-2 COVID-19 MODERNA 12+ YRS VACCINE Unknown Completed [facility] HPV9 Unknown Completed [facility] Influenza Virus Vaccine Quad IM, Preserv and ABX Free 6 MO-64 YRS (FLUCELVAX) Unknown Completed [facility] SARS-COV-2 COVID-19 VACCINE - (MODERNA) Unknown Completed [facility] SARS-COV-2 COVID-19 VACCINE - (MODERNA) Unknown Completed [facility] HPV9 Unknown Completed [facility] Rho (d) Immune Globulin Unknown Completed [facility] TDAP Unknown Completed [facility] Rho (d) Immune Globulin Unknown Completed [facility] Influenza Virus Vaccine Quad IM, Preserv and ABX Free 6 MO-64 YRS (FLUCELVAX) Unknown Completed [facility] Rho (d) Immune Globulin Unknown Completed [facility] HPV9 Unknown Completed [facility] SARS-COV-2 COVID-19 MODERNA 12+ YRS VACCINE Unknown Completed [facility] SARS-COV-2 COVID-19 MODERNA 12+ YRS VACCINE Unknown Completed [facility] HPV9 Unknown Completed [facility] Influenza Virus Vaccine Quad IM, Preserv and ABX Free 6 MO-64 YRS (FLUCELVAX) Unknown Completed [facility] SARS-COV-2 COVID-19 VACCINE - (MODERNA) Unknown Completed [facility] SARS-COV-2 COVID-19 VACCINE - (MODERNA) Unknown Completed [facility] HPV9 Unknown Completed [facility] Rho (d) Immune Globulin Unknown Completed [facility] TDAP Unknown Completed [facility] Rho (d) Immune Globulin Unknown Completed [facility] Influenza Virus Vaccine Quad IM, Preserv and ABX Free 6 MO-64 YRS (FLUCELVAX) Unknown Completed [facility] Rho (d) Immune Globulin Unknown Completed [facility] HPV9 Unknown Completed [facility] SARS-COV-2 COVID-19 MODERNA 12+ YRS VACCINE Unknown Completed [facility] SARS-COV-2 COVID-19 MODERNA 12+ YRS VACCINE Unknown Completed [facility] HPV9 Unknown Completed [facility] Influenza Virus Vaccine Quad IM, Preserv and ABX Free 6 MO-64 YRS (FLUCELVAX) Unknown Completed [facility] SARS-COV-2 COVID-19 VACCINE - (MODERNA) Unknown Completed [facility] SARS-COV-2 COVID-19 VACCINE - (MODERNA) Unknown Completed [facility] HPV9 Unknown Completed [facility] Rho (d) Immune Globulin Unknown Completed [facility] TDAP Unknown Completed [facility] Rho (d) Immune Globulin Unknown Completed [facility] Influenza Virus Vaccine Quad IM, Preserv and ABX Free 6 MO-64 YRS (FLUCELVAX) Unknown Completed [facility] Rho (d) Immune Globulin Unknown Completed [facility] HPV9 Unknown Completed [facility] SARS-COV-2 COVID-19 MODERNA 12+ YRS VACCINE Unknown Completed [facility] SARS-COV-2 COVID-19 MODERNA 12+ YRS VACCINE Unknown Completed [facility] HPV9 Unknown Completed [facility] Influenza Virus Vaccine Quad IM, Preserv and ABX Free 6 MO-64 YRS (FLUCELVAX) Unknown Completed [facility] SARS-COV-2 COVID-19 VACCINE - (MODERNA) Unknown Completed [facility] SARS-COV-2 COVID-19 VACCINE - (MODERNA) Unknown Completed [facility] HPV9 Unknown Completed [facility] Rho (d) Immune Globulin Unknown Completed [facility] TDAP Unknown Completed [facility] Rho (d) Immune Globulin Unknown Completed [facility] Influenza Virus Vaccine Quad IM, Preserv and ABX Free 6 MO-64 YRS (FLUCELVAX) Unknown Completed [facility] Rho (d) Immune Globulin Unknown Completed [facility] HPV9 Unknown Completed [facility] SARS-COV-2 COVID-19 MODERNA 12+ YRS VACCINE Unknown Completed [facility] SARS-COV-2 COVID-19 MODERNA 12+ YRS VACCINE Unknown Completed [facility] HPV9 Unknown Completed [facility] Influenza Virus Vaccine Quad IM, Preserv and ABX Free 6 MO-64 YRS (FLUCELVAX) Unknown Completed [facility] SARS-COV-2 COVID-19 VACCINE - (MODERNA) Unknown [facility]pleted [facility] SARS-COV-2 COVID-19 VACCINE - (MODERNA) Unknown Completed [facility] HPV9 Unknown Completed [facility] Rho (d) Immune Globulin Unknown Completed [facility] TDAP Unknown Completed [facility] Rho (d) Immune Globulin Unknown Completed [facility] Influenza Virus Vaccine Quad IM, Preserv and ABX Free 6 MO-64 YRS (FLUCELVAX) Unknown Completed [facility] Rho (d) Immune Globulin Unknown Completed [facility] HPV9 Unknown Completed [facility] Vital Signs Vital Name Observation Time Observation Value Comments S ource Systolic blood pressure 2023-11-22 21:08:00 117 mm[Hg] Mckee o [facility] Diastolic blood pressure 2023-11-22 21:08:00 73 mm[Hg] Mckee o [facility] Heart rate 2023-11-22 21:08:00 89 /min [facility] Body temperature 2023-11-22 21:08:00 36.11 Tiffanie [facility] Respiratory rate 2023-11-22 21:08:00 18 /min [facility] Body height 2023-11-22 21:08:00 162.6 cm [facility] Body weight 2023-11-22 21:08:00 88.633 kg [facility] BMI 2023-11-22 21:08:00 33.54 kg/m2 [facility] Systolic blood pressure 2023-10-12 19:46:00 107 mm[Hg] [facility] Diastolic blood pressure 2023-10-12 19:46:00 63 mm[Hg] [facility] Heart rate 2023-10-12 19:46:00 73 /min Un[facility] Respiratory rate 2023-10-12 19:46:00 16 /min [facility] Body height 2023-10-12 19:46:00 162.6 cm [facility] Body weight 2023-10-12 19:46:00 83.416 kg [facility] BMI 2023-10-12 19:46:00 31.57 kg/m2 [facility] Systolic blood pressure 2023-09-14 20:03:00 113 mm[Hg] [facility] Diastolic blood pressure 2023-09-14 20:03:00 74 mm[Hg] [facility] Heart rate 2023-09-14 20:03:00 76 /min Un[facility] Body temperature 2023-09-14 20:03:00 36.67 Tiffanie [facility] Respiratory rate 2023-09-14 20:03:00 16 /min [facility] Body height 2023-09-14 20:03:00 162.6 cm [facility] Body weight 2023-09-14 20:03:00 86.637 kg [facility] BMI 2023-09-14 20:03:00 32.79 kg/m2 [facility] Systolic blood pressure 2023-09-04 00:18:00 129 mm[Hg] [facility] Diastolic blood pressure 2023-09-04 00:18:00 78 mm[Hg] [facility] Heart rate 2023-09-04 00:18:00 84 /min [facility] Body temperature 2023-09-04 00:18:00 36.78 Tiffanie [facility] Respiratory rate 2023-09-04 00:18:00 18 /min [facility] Body height 2023-09-04 00:18:00 162.6 cm [facility] Body weight 2023-09-04 00:18:00 79.379 kg [facility] BMI 2023-09-04 00:18:00 30.04 kg/m2 [facility] Oxygen saturation in Arterial blood by Pulse oximetry 2023-09-04 00:18:00 100 /min [facility] Systolic blood pressure 2023-09-03 17:48:00 115 mm[Hg] [facility] Diastolic blood pressure 2023-09-03 17:48:00 77 mm[Hg] [facility] Heart rate 2023-09-03 17:48:00 84 [facility] Body temperature 2023-09-03 17:48:00 37.17 Tiffanie [facility] Respiratory rate 2023-09-03 17:48:00 18 /min [facility] Oxygen saturation in Arterial blood by Pulse oximetry 2023-09-03 17:48:00 100 /min [facility] Systolic blood pressure 2023-08-17 14:56:00 112 mm[Hg] [facility] Diastolic blood pressure 2023-08-17 14:56:00 72 mm[Hg] [facility] Heart rate 2023-08-17 14:56:00 99 /[facility] Respiratory rate 2023-08-17 14:56:00 18 /min [facility] Body height 2023-08-17 14:56:00 160 cm [facility] 2023-08-17 14:56:00 85.276 kg [facility] BMI 2023-08-17 14:56:00 33.30 kg/m2 [facility] Systolic blood pressure 2023-03-30 20:41:00 115 mm[Hg] Ani Seybo ld - External Diastolic blood pressure 2023-03-30 20:41:00 80 mm[Hg] Ani ybo ld - External Heart rate 2023-03-30 20:41:00 70 /min Kelse y Seybold - External Body temperature 2023-03-30 20:41:00 36.22 Tiffanie Ani Garrisonybold - External Body height 2023-03-30 20:41:00 162.6 cm Jolanta ey Seybold - External Body weight 2023-03-30 20:41:00 77.565 kg Jolanta ey Seybold - External BMI 2023-03-30 20:41:00 29.35 kg/m2 Jolanta ey Seybold - External Oxygen saturation in Arterial blood by Pulse oximetry 2023-03-30 20:41:00 97 /min Ani Garrisonybo ld - External Systolic blood pressure 2023-03-26 19:44:00 131 mm[Hg] [facility] Diastolic blood pressure 2023-03-26 19:44:00 85 mm[Hg] [facility] Heart rate 2023-03-26 19:44:00 74 [facility] Body [facility] 2023-03-26 19:44:00 36 Tiffanie [facility] Respiratory rate 2023-03-26 19:44:00 18 /min [facility] Body height 2023-03-26 19:44:00 160 cm [facility] Body weight 2023-03-26 19:44:00 80.015 kg [facility] BMI 2023-03-26 19:44:00 31.25 kg/m2 [facility] Systolic blood pressure 2023-03-07 13:31:00 120 mm[Hg] [facility] Diastolic blood pressure 2023-03-07 13:31:00 78 mm[Hg] [facility] Heart rate 2023-03-07 13:31:00 77 /min [facility] Body temperature 2023-03-07 13:31:00 36.28 Tiffanie [facility] Respiratory rate 2023-03-07 13:31:00 18 /min [facility] Oxygen saturation in Arterial blood by Pulse oximetry 2023-03-07 13:31:00 97 /min [facility] Body height 2023-03-05 17:16:00 160 cm [facility] Body weight 2023-03-05 17:16:00 92.987 kg [facility] BMI 2023-03-05 17:16:00 36.31 kg/m2 [facility] Systolic blood pressure 2023-02-20 15:02:00 131 mm[Hg] [facility] Diastolic blood pressure 2023-02-20 15:02:00 83 mm[Hg] [facility] Heart rate 2023-02-20 15:02:00 95 /min [facility] Body temperature 2023-02-20 15:02:00 35.89 Tiffanie [facility] Respiratory rate 2023-02-20 15:02:00 18 /min [facility] Body height 2023-02-20 15:02:00 160 cm [facility] Body weight 2023-02-20 15:02:00 91.445 kg [facility] BMI 2023-02-20 15:02:00 35.71 kg/m2 [facility] Heart rate 2023-02-16 21:16:00 71 /min [facility] Oxygen saturation in Arterial blood by Pulse oximetry 2023-02-16 21:16:00 100 /min [facility] Systolic blood pressure 2023-02-16 20:30:00 97 mm[Hg] [facility] Diastolic blood pressure 2023-02-16 20:30:00 51 mm[Hg] [facility] Body temperature 2023-02-16 19:18:00 37 Tiffanie [facility] Respiratory rate 2023-02-16 19:18:00 18 /min [facility] Body height 2023-02-16 19:18:00 160 cm [facility] Body weight 2023-02-16 19:18:00 91.627 kg [facility] BMI 2023-02-16 19:18:00 35.78 kg/m2 [facility] Systolic blood pressure 2023-02-13 15:58:00 113 mm[Hg] Mckee o [facility] Diastolic blood pressure 2023-02-13 15:58:00 72 mm[Hg] [facility] Heart rate 2023-02-13 15:58:00 81 /min [facility] Body temperature 2023-02-13 15:58:00 36.5 Tiffanie [facility] Respiratory rate 2023-02-13 15:58:00 17 /min [facility] Body height 2023-02-13 15:58:00 165.1 cm [facility] Body weight 2023-02-13 15:58:00 91.853 kg [facility] BMI 2023-02-13 15:58:00 33.70 kg/m2 [facility] Systolic blood pressure 2023-02-05 20:57:00 130 mm[Hg] [facility] Diastolic blood pressure 2023-02-05 20:57:00 78 mm[Hg] [facility] Heart rate 2023-02-05 20:57:00 100 /min [facility] Body temperature 2023-02-05 20:57:00 35.72 Tiffanie [facility] Respiratory rate 2023-02-05 20:57:00 18 /min [facility] Body height 2023-02-05 20:57:00 165.1 cm [facility] Body weight 2023-02-05 20:57:00 91.808 kg [facility] BMI 2023-02-05 20:57:00 33.68 kg/m2 [facility] Systolic blood pressure 2023-01-23 18:24:00 121 mm[Hg] [facility] Diastolic blood pressure 2023-01-23 18:24:00 67 mm[Hg] [facility] Heart rate 2023-01-23 18:24:00 91 /min [facility] Body temperature 2023-01-23 18:24:00 36.78 Tiffanie [facility] Respiratory rate 2023-01-23 18:24:00 18 /min [facility] Body height 2023-01-23 18:24:00 165.1 cm [facility] Body weight 2023-01-23 18:24:00 90.992 kg [facility] BMI 2023-01-23 18:24:00 33.38 kg/m2 [facility] Systolic blood pressure 2023-01-10 14:37:00 120 mm[Hg] [facility] Diastolic blood pressure 2023-01-10 14:37:00 61 mm[Hg] [facility] Heart rate 2023-01-10 14:37:00 95 /min [facility] Body temperature 2023-01-10 14:37:00 36.11 Tiffanie [facility] Respiratory rate 2023-01-10 14:37:00 17 /min [facility] Body height 2023-01-10 14:37:00 165.1 cm [facility] Body weight 2023-01-10 14:37:00 91.082 kg [facility] BMI 2023-01-10 14:37:00 33.41 kg/m2 [facility] Systolic blood pressure 2022-12-21 14:21:00 103 mm[Hg] [facility] Diastolic blood pressure 2022-12-21 14:21:00 58 mm[Hg] [facility] Heart rate 2022-12-21 14:21:00 80 /min [facility] Body temperature 2022-12-21 14:21:00 36.56 Tiffanie [facility] Respiratory rate 2022-12-21 14:21:00 20 /min [facility] Body height 2022-12-21 14:21:00 165.1 cm [facility] Body weight 2022-12-21 14:21:00 88.86 kg [facility] BMI 2022-12-21 14:21:00 32.60 kg/m2 [facility] Systolic blood pressure 2022-12-12 19:09:00 110 mm[Hg] [facility] Diastolic blood pressure 2022-12-12 19:09:00 62 mm[Hg] [facility] Heart rate 2022-12-12 19:09:00 84 /min [facility] Body temperature 2022-12-12 19:09:00 36 Tiffanie [facility] Respiratory rate 2022-12-12 19:09:00 18 /min [facility] Body height 2022-12-12 19:09:00 165.1 cm [facility] Body weight 2022-12-12 19:09:00 88.587 kg [facility] BMI 2022-12-12 19:09:00 32.50 kg/m2 [facility] Systolic blood pressure 2022-12-07 15:05:00 120 mm[Hg] [facility] Diastolic blood pressure 2022-12-07 15:05:00 64 mm[Hg] [facility] Heart rate 2022-12-07 15:05:00 85 /min [facility] Body temperature 2022-12-07 15:05:00 36.33 Tiffanie [facility] Respiratory rate 2022-12-07 15:05:00 20 /min [facility] Body height 2022-12-07 15:05:00 [facility].1 cm [facility] 2022-12-07 15:05:00 89.585 kg [facility] BMI 2022-12-07 15:05:00 32.87 kg/m2 [facility] Systolic blood pressure 2022-11-16 14:49:00 126 mm[Hg] [facility] Diastolic blood pressure 2022-11-16 14:49:00 67 mm[Hg] [facility] Heart rate 2022-11-16 14:49:00 91 /min [facility] Body temperature 2022-11-16 14:49:00 35.72 Tiffanie [facility] Respiratory rate 2022-11-16 14:49:00 18 /min [facility] Body height 2022-11-16 14:49:00 165.1 cm [facility] Body weight 2022-11-16 14:49:00 86.546 kg [facility] BMI 2022-11-16 14:49:00 31.75 kg/m2 [facility] Systolic blood pressure 2022-10-26 20:50:00 114 mm[Hg] [facility] Diastolic blood pressure 2022-10-26 20:50:00 62 mm[Hg] [facility] Heart rate 2022-10-26 20:50:00 75 /min [facility] Body temperature 2022-10-26 20:50:00 36.06 Tiffanie [facility] Respiratory rate 2022-10-26 20:50:00 18 /min [facility] Body height 2022-10-26 20:50:00 165.1 cm [facility] Body weight 2022-10-26 20:50:00 86.093 kg [facility] BMI 2022-10-26 20:50:00 31.58 kg/m2 [facility] Systolic blood pressure 2022-09-18 20:35:00 124 mm[Hg] [facility] Diastolic blood pressure 2022-09-18 20:35:00 71 mm[Hg] [facility] Heart rate 2022-09-18 20:35:00 78 /min [facility] Body temperature 2022-09-18 20:35:00 36.39 Tiffanie [facility] Respiratory rate 2022-09-18 20:35:00 18 /min [facility] Body height 2022-09-18 20:35:00 165.1 cm [facility] Body weight 2022-09-18 20:35:00 79.465 kg [facility] BMI 2022-09-18 20:35:00 29.15 kg/m2 [facility] Systolic blood pressure 2022-08-21 20:20:00 115 mm[Hg] [facility] Diastolic blood pressure 2022-08-21 20:20:00 66 mm[Hg] [facility] Heart rate 2022-08-21 20:20:00 80 /min [facility] Body temperature 2022-08-21 20:20:00 35.61 Tiffanie [facility] Respiratory rate 2022-08-21 20:20:00 18 /min [facility] Body height 2022-08-21 20:20:00 165.1 cm [facility] Body weight 2022-08-21 20:20:00 77.701 kg [facility] BMI 2022-08-21 20:20:00 28.51 kg/m2 [facility] Systolic blood pressure 2022-07-24 18:20:00 120 mm[Hg] [facility] Diastolic blood pressure 2022-07-24 18:20:00 66 mm[Hg] [facility] Heart rate 2022-07-24 18:20:00 60 /min [facility] Body temperature 2022-07-24 18:20:00 36.28 Tiffanie [facility] Respiratory rate 2022-07-24 18:20:00 18 /min [facility] Body height 2022-07-24 18:20:00 165.1 cm [facility] Body weight 2022-07-24 18:20:00 77.021 kg [facility] BMI 2022-07-24 18:20:00 28.26 kg/m2 [facility] Systolic blood pressure 2022-04-11 22:15:00 120 mm[Hg] [facility] Diastolic blood pressure 2022-04-11 22:15:00 73 mm[Hg] [facility] Heart rate 2022-04-11 22:15:00 68 /min [facility] Body height 2022-04-11 22:15:00 167.6 cm [facility] Body weight 2022-04-11 22:15:00 81.647 kg [facility] BMI 2022-04-11 22:15:00 29.05 kg/m2 [facility] Oxygen saturation in Arterial blood by Pulse oximetry 2022-04-11 22:15:00 99 /min [facility] Systolic blood pressure 2022-03-28 21:22:00 116 mm[Hg] [facility] Diastolic blood pressure 2022-03-28 21:22:00 71 mm[Hg] [facility] Heart rate 2022-03-28 21:22:00 70 /min [facility] Body temperature 2022-03-28 21:22:00 36.83 Tiffanie [facility] Respiratory rate 2022-03-28 21:22:00 16 /min [facility] Body height 2022-03-28 21:22:00 162.6 cm [facility] Body weight 2022-03-28 21:22:00 77.656 kg [facility] BMI 2022-03-28 21:22:00 29.39 kg/m2 [facility] Oxygen saturation in Arterial blood by Pulse oximetry 2022-03-28 21:22:00 99 /min [facility] Systolic blood pressure 2022-03-27 16:40:00 116 mm[Hg] [facility] Diastolic blood pressure 2022-03-27 16:40:00 69 mm[Hg] [facility] Heart rate 2022-03-27 16:40:00 74 [facility]min [facility] Body temperature 2022-03-27 16:40:00 37.11 Tiffanie [facility] Respiratory rate 2022-03-27 16:40:00 18 /min [facility] Body height 2022-03-27 16:40:00 162.6 cm [facility] Body weight 2022-03-27 16:40:00 77.565 kg [facility] BMI 2022-03-27 16:40:00 29.35 kg/m2 [facility] Systolic blood pressure 2022-03-24 00:54:08 122 mm[Hg] [facility] Diastolic blood pressure 2022-03-24 00:54:08 77 mm[Hg] [facility] Heart rate 2022-03-24 00:54:08 85 /min [facility] Body temperature 2022-03-24 00:54:08 36.39 Tiffanie [facility] Respiratory rate 2022-03-24 00:54:08 18 /min [facility] Oxygen saturation in Arterial blood by Pulse oximetry 2022-03-24 00:54:08 100 /min [facility] Body weight 2022-03-23 19:30:00 81.647 kg [facility] BMI 2022-03-23 19:30:00 29.95 kg/m2 [facility] Systolic blood pressure 2022-03-23 18:51:00 112 mm[Hg] [facility] Diastolic blood pressure 2022-03-23 18:51:00 70 mm[Hg] [facility] Heart rate 2022-03-23 18:51:00 2 /min [facility] Body temperature 2022-03-23 18:51:00 37.22 Tiffanie [facility] Respiratory rate 2022-03-23 18:51:00 17 /min [facility] Body weight 2022-03-23 18:51:00 72.576 kg [facility] BMI 2022-03-23 18:51:00 26.63 kg/m2 [facility] Oxygen saturation in Arterial blood by Pulse oximetry 2022-03-23 18:51:00 100 /min [facility] Systolic blood pressure 2022-03-15 20:07:00 108 mm[Hg] [facility] Diastolic blood pressure 2022-03-15 20:07:00 69 mm[Hg] [facility] Heart rate 2022-03-15 20:07:00 73 /min [facility] Body temperature 2022-03-15 20:07:00 37.06 Tiffanie [facility] Respiratory rate 2022-03-15 20:07:00 18 /min [facility] Body height 2022-03-15 20:07:00 165.1 cm [facility] Body weight 2022-03-15 20:07:00 78.019 kg [facility] BMI 2022-03-15 20:07:00 28.62 kg/m2 [facility] Systolic blood pressure 2022-02-22 21:55:00 117 mm[Hg] [facility] Diastolic blood pressure 2022-02-22 21:55:00 71 mm[Hg] [facility] Heart rate 2022-02-22 21:55:00 69 /min [facility] Body temperature 2022-02-22 21:55:00 36.67 Tiffanie [facility] Respiratory rate 2022-02-22 21:55:00 18 /min [facility] Body height 2022-02-22 21:55:00 165.1 cm [facility] Body weight 2022-02-22 21:55:00 77.111 kg [facility] BMI 2022-02-22 21:55:00 28.29 kg/m2 [facility] Systolic blood pressure 2022-01-24 20:48:00 113 mm[Hg] [facility] Diastolic blood pressure 2022-01-24 20:48:00 69 mm[Hg] [facility] Heart rate 2022-01-24 20:48:00 74 /min [facility] Body temperature 2022-01-24 20:48:00 36.72 Tiffaine [facility] Respiratory rate 2022-01-24 20:48:00 18 /min [facility] Body height 2022-01-24 20:48:00 165.1 cm [facility] Body weight 2022-01-24 20:48:00 75.751 kg [facility] BMI 2022-01-24 20:48:00 27.79 kg/m2 [facility] Systolic blood pressure 2022-01-06 18:28:00 110 mm[Hg] [facility] Diastolic blood pressure 2022-01-06 18:28:00 69 mm[Hg] [facility] Heart rate 2022-01-06 18:28:00 74 /min [facility] Body temperature 2022-01-06 18:28:00 36.89 Tiffanie [facility] Respiratory rate 2022-01-06 18:28:00 18 /min [facility] Body height 2022-01-06 18:28:00 160 cm [facility] Body weight 2022-01-06 18:28:00 75.841 kg [facility] BMI 2022-01-06 18:28:00 29.62 kg/m2 [facility] Systolic blood pressure 2021-12-30 15:10:00 116 mm[Hg] [facility] Diastolic blood pressure 2021-12-30 15:10:00 79 mm[Hg] [facility] Heart rate 2021-12-30 15:10:00 78 /min [facility] Body temperature 2021-12-30 15:10:00 36.78 Tiffanie [facility] Respiratory rate 2021-12-30 15:10:00 18 /min [facility] Body height 2021-12-30 15:10:00 160 cm [facility] Body weight 2021-12-30 15:10:00 75.841 kg [facility] BMI 2021-12-30 15:10:00 29.62 kg/m2 [facility] Procedures Procedure Date / Time Performed Performing Clinician Source POCT URINALYSIS W/O SPECIFIC GRAVITY 2023-11-22 00:00:00 Pasquale Paula [facility] SECOND AND THIRD TRIMESTER ULTRASOUND 2023-11-02 15:48:00 Pasquale Paula [facility] POCT URINALYSIS W/O SPECIFIC GRAVITY 2023-10-12 00:00:00 Pasquale Paula [facility] POCT URINALYSIS W/O SPECIFIC GRAVITY 2023-09-14 00:00:00 Pasquale Paula [facility] <14 WEEKS US LIMITED 2023-08-17 19:13:13 Pasquale Paula [facility] POCT TEST 2023-08-17 00:00:00 Pasquale Paula [facility] GARDASIL 9 (HPV 9V) VACCINE 2023-03-26 19:57:51 Shanthi Bauer [facility] CREATININE 2023-03-06 23:43:00 Rustam Yu [facility] CBC WITH DIFF 2023-03-06 10:15:00 Hansa Mesa [facility] HB -MATERNAL HEMORRHAGE SCREEN 2023-03-06 10:15:00 Rustam Yu [facility] VENOUS CORD GAS 2023-03-06 02:21:[address] [facility] CENTRAL NEURAXIAL BLOCK 2023-03-05 20:52:00 Sandip Forte [facility] CBC WITH DIFF 2023-03-05 17:35:00 Viji Cevallos [facility] HEPATITIS B SURFACE ANTIGEN 2023-03-05 17:35:00 Viji Cevallos [facility] ANTI-D R/O PANEL 2023-03-05 17:35:00 Rustam Yu [facility] HB ABO GROUPING 2023-03-05 17:35:[address] [facility] RHO (D) IMMUNE GLOBULIN 2023-03-05 17:35:00 Me daniel Mesa [facility] SYPHILIS IGG/IGM 2023-03-05 17:35:00 Viji Cevallos [facility] POCT URINALYSIS 2023-02-20 15:06:00 Shanthi Bauer [facility] ADC ONLY - FERN TEST 2023-02-16 21:02:00 AdumRosibel [facility] EXTRA TUBE URINE 2023-02-16 19:37:00 AdumRosibel [facility] ASSIGNMENT OF BENEFITS 2023-02-16 18:55:24 Docto r Unassigned, Bevier [facility] CONSENT/REFUSAL FOR DIAGNOSIS AND TREATMENT 2023-02-16 18:51:28 Doctor Unassigned, Bevier [facility] DME/SUPPLY JUSTIFICATION 2023-02-13 05:01:00 Doc tor Unassigned, Bevier [facility] POCT URINALYSIS 2023-02-13 00:00:00 Shanthi Bauer [facility] POCT URINALYSIS 2023-02-05 20:59:00 Shanthi Bauer [facility] POCT URINALYSIS 2023-01-23 18:27:00 Shanthi Bauer [facility] FLU VACC (), 6 MO-64 YRS, .5ML, IM, QUAD (FLUCELVAX) 2023-01-10 15:20:48 Shanthi Bauer [facility] ASSIGNMENT OF BENEFITS 2023-01-10 14:19:55 Docto r Unassigned, Bevier [facility] POCT URINALYSIS 2023-01-10 00:00:00 Shanthi Bauer [facility] HB ABO GROUPING 2022-12-21 15:25:00 Shanthi Bauer [facility] SYPHILIS IGG/IGM 2022-12-21 15:25:00 Lesvia Bauer [facility] TDAP VACCINE, >11 YRS, IM 2022-12-21 14:48:46 Shanthi Bauer [facility] POCT URINALYSIS 2022-12-21 00:00:00 Shanthi Bauer [facility] SECOND AND THIRD TRIMESTER ULTRASOUND 2022-12-12 20:43:00 Shanthi Bauer [facility] POCT URINALYSIS 2022-12-12 19:12:00 Shanthi Bauer [facility] POCT URINALYSIS 2022-12-07 00:00:00 Shanthi Bauer [facility] POCT URINALYSIS 2022-11-16 14:50:00 Shanthi Bauer [facility] MISCELLANEOUS SENDOUT TEST 2022-11-10 05:01:00 Doctor Unassigned, Bevier [facility] SECOND AND THIRD TRIMESTER ULTRASOUND 2022-10-31 20:25:00 Shanthi Bauer [facility] SECOND AND THIRD TRIMESTER ULTRASOUND 2022-10-31 20:20:00 Shanthi Bauer [facility] POCT URINALYSIS 2022-10-26 20:52:00 Shanthi Bauer [facility] POCT URINALYSIS 2022-09-18 20:36:00 Shanthi Bauer [facility] POCT URINALYSIS 2022-08-21 20:21:00 Shanthi Bauer [facility] FLU VACC (), 6 MO-64 YRS, .5ML, IM, QUAD (FLUCELVAX) 2022-07-24 19:22:36 Shanthi Bauer [facility] POCT URINALYSIS W/O SPECIFIC GRAVITY 2022-07-24 18:12:00 Shanthi Bauer [facility] POCT TEST 2022-07-24 18:11:00 Italo Bauer [facility] REPORT OF 2022-07-24 05:01:00 Doctor Cliff banerjee, Bevier [facility] ASSIGNMENT OF BENEFITS 2022-07-10 14:33:07 Docto r Unassigned, Bevier [facility] OB TRANSVAGINAL 2022-03-28 22:39:19 Adum, Rosibel Johnson [facility] GARDASIL 9 (HPV 9V) VACCINE 2022-03-28 22:12:39 Adum, Rosibel Johnson [facility] 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 MAGNESIUM 2022-03-23 20:20:00 Susan Martinez [facility] TROPONIN I 2022-03-23 20:20:00 Susan Martinez [facility] COMP. METABOLIC PANEL ([id number]) 2022-03-23 20:20:00 Susan Martinez [facility] CBC WITH DIFF 2022-03-23 20:20:00 [facility] 2022-03-23 20:20:00 Susan Martinez [facility] N-TERMINAL PRO-BNP 2022-03-23 20:20:00 Susan Martinez [facility] CONSENT/REFUSAL FOR DIAGNOSIS AND TREATMENT 2022-03-23 19:04:36 Doctor Unassigned, Bevier [facility] POCT URINALYSIS W/O SPECIFIC GRAVITY 2022-03-15 20:09:00 Amena Betancourt [facility] FIRST TRIMESTER LESS THAN 14 WEEKS WITH TRANSVAGINAL 2022-03-03 20:49:57 Allan [facility] GC & CHLAMYDIA AMPLIFIED ASSAY 2022-02-22 22:34:00 Allan [facility] TRICHOMONAS AMPLIFIED ASSAY 2022-02-22 22:34:00 Allan [facility] FLU VACC ([id number]), 6 MO-64 YRS, .5ML, IM, QUAD (FLUCELVAX) 2022-02-22 22:18:33 Allan [facility] POCT URINALYSIS W/O SPECIFIC GRAVITY 2022-02-22 00:00:00 Allan [facility] ASSIGNMENT OF BENEFITS 2022-02-18 14:49:18 Docto r Unassigned, Bevier [facility] POCT TEST 2022-01-06 18:43:[address] [facility] GARDASIL 9 (HPV 9V) VACCINE 2021-12-30 16:46:05 Jareth Olmedo [facility] POCT TEST 2021-12-30 15:29:[address] [facility] Encounters Start Date/Time End Date/Time Encounter Type Admission Type Attending Clinicians Care Facility Care Department Encounter ID Source 2021-07-09 00:38:59 Outpatient [facility] [id number] Manuela Hammer [facility] 2023-12-06 09:45:00 2023-12-06 09:45:00 Outpatient P [facility] [id number] [facility] 2023-12-04 13:45:00 2023-12-04 13:45:00 Outpatient R PASQUALE PAULA VIEN [facility] [id number] [facility] 2023-11-30 00:00:00 2023-11-30 10:19:14 Patient Secure g Pasquale Paula [facility] 1..840.114 350.1.13.10 4.2.7.2.686 [id number] [facility] 2023-11-30 08:30:00 2023-11-30 08:30:00 Outpatient RUSTAM FUCHS, RUSTAM MONSIVAIS [facility] [id number] [facility] 2023-10-23 00:00:00 2023-11-24 18:21:31 Patient Secure Msg Doctor Unassigned, Bevier Doctor Unassigned, Bevier [facility] 1..114 350.1.13.10 4.2.7.2.686 [id number] [facility] 2023-10-24 00:00:00 2023-11-24 18:19:23 Patient Secure g BeniPasquale [facility] 1..114 350.1.13.10 4.2.7.2.686 [id number] [facility] 2023-11-23 16:15:00 2023-11-23 16:15:00 Outpatient RINA MARQUEZ [facility] [id number] [facility] 2023-11-22 15:45:00 2023-11-22 16:38:41 Outpatient R PASQUALE PAULA VIEN [facility] [id number] [facility] 2023-11-22 15:45:00 2023-11-22 16:38:41 Routine Visit Pasquale Paula [facility] 1.2.840.114 350.1.13.10 4.2.7.2.686 [id number] 134 [id number] [facility] 2023-11-16 13:15:00 2023-11-16 13:15:00 Outpatient R RINA JEWELL [facility] [id number] [facility] 2023-11-12 16:00:00 2023-11-12 16:00:00 Outpatient R RINA JEWELL [facility] [id number] [facility] 2023-10-10 00:00:00 2023-11-10 18:20:13 Patient Secure g Pasquale Paula [facility] 1..840.114 350.1.13.10 4.2.7.2.686 [id number] 134 [id number] [facility] 2023-11-07 00:00:00 2023-11-07 13:21:33 Patient Secure Pasquale Smith [facility] 1.2.840.114 350.1.13.10 4.2.7.2.686 [id number] [facility] 2023-11-02 10:15:00 2023-11-02 10:59:59 Outpatient R RUSTAM YU SANGEETA JAIN, SANGEETA [facility] [id number] [facility] 2023-11-02 10:15:00 2023-11-02 10:59:59 Electrical Laboratory Technician Visit 1, [facility] Room Rustam Yu [facility] BEAD FORMING MACHINE OPERATOR [facility] & [facility] 1.2.840.114 350.1.13.10 4.2.7.2.686 [id number] [facility] 2023-09-24 00:00:00 2023-10-27 18:21:52 [facility] 1.2.840.114 350.1.13.10 4.2.7.2.686 [id number] 134 [id number] [facility] 2023-10-19 14:45:00 2023-10-19 15:00:00 Nurse Visit Nurse, Espinozaj [facility] Beni Pasquale [facility] 1.2.840.114 350.1.13.10 4.2.7.2.686 [id number] [facility] 2023-10-19 14:45:00 2023-10-19 14:45:00 Outpatient R PASQUALE PAULA [facility] [id number] [facility] 2023-10-17 00:00:00 2023-10-19 11:53:37 Telephone Pasquale Paula [facility] 1.2.840.114 350.1.13.10 4.2.7.2.686 [id number] [facility] 2023-10-12 14:45:00 2023-10-12 15:17:30 Outpatient R PASQUALE PAULA VIEN [facility] [id number] [facility] 2023-10-12 14:45:00 2023-10-12 15:17:30 Routine Visit Pasquale Paula [facility] 1.2.840.114 350.1.13.10 4.2.7.2.686 [id number] 134 [id number] [facility] 2023-09-03 00:00:00 2023-10-06 18:21:56 Patient Secure Msg Beni Pasquale [facility] 1.2.840.114 350.1.13.10 4.2.7.2.686 [id number] [facility] 2023-09-26 00:00:00 2023-09-26 07:04:23 Case Management Pasquale Paula [facility] BUILD[facility] 1.2.840.114 350.1.13.10 4.2.7.2.686 [id number] 134 [id number] [facility] 2023-09-25 11:30:00 2023-09-25 16:33:09 Outpatient SWAPNIL GONG [facility] [id number] [facility] 2023-09-25 11:30:00 2023-09-25 11:45:00 Electrical Laboratory Technician Visit Ezequiel, Swapnil [facility] 1.2.840.114 350.1.13.10 4.2.7.2.686 [id number] [facility] 2023-09-25 00:00:00 2023-09-25 07:39:48 Case Management Pasquale Paula [facility] BU[facility] 1.2.840.114 350.1.13.10 4.2.7.2.686 [id number] 134 [id number] [facility] 2023-09-21 16:15:00 2023-09-21 16:30:00 Electrical Laboratory Technician Visit Pob, Adc Lab Main PaulaPasquale [facility] BUILD[facility] 1.2.840.114 350.1.13.10 4.2.7.2.686 [id number] [facility] 2023-09-21 16:15:00 2023-09-21 16:15:00 Outpatient R PASQUALE PAULA [facility] [id number] [facility] 2023-08-15 00:00:2023-09-15 18:05:25 Patient Secure MsRosibel Valenzuela [facility] 1.2840.114 350.1.13.10 4.2.7.2.686 [id number] [facility] 2023-09-14 15:00:00 2023-09-14 15:17:22 Outpatient R PASQUALE PAULA VIEN [facility] [id number] [facility] 2023-09-14 15:00:00 2023-09-14 15:17:22 Routine Visit Pasquale Paula [facility] 1.2840.114 350.1.13.10 4.2.7.2.686 [id number] [facility] 2023-09-05 00:00:00 2023-09-06 09:11:04 Telephone Pasquale Paula [facility] 1.20.114 350.1.13.10 4.2.7.2.686 [id number] 134 [id number] [facility] 2023-09-03 19:22:00 2023-09-03 19:45:00 Emergency NADEEN DAVIS [facility] ERT [id number] [facility] 2023-09-03 19:22:00 2023-09-03 19:45:00 Emergency Nadeen Davis [facility] 1.20.114 350.1.13.10 4.2.7.2.686 [id number] [facility] 2023-09-03 12:30:00 2023-09-03 14:10:20 Outpatient SAGAR TATE [facility] [id number] [facility] 2023-09-03 12:30:00 2023-09-03 12:50:00 Nurse Visit Nurse, [facility] Unknown, Attending [facility] 1.84.114 350.1.13.10 4.2.7.2.686 [id number] [facility] 2023-08-24 09:45:00 2023-08-24 10:34:12 Outpatient R ADALID LUKE [facility] [id number] [facility] 2023-08-24 09:45:00 2023-08-24 10:34:12 Electrical Laboratory Technician Visit Lab, Ang - Tereso Unknown, Attending [facility] 1..840.114 350.1.13.10 4.2.7.2.686 [id number] [facility] 2023-08-20 10:15:00 2023-08-20 10:15:00 Outpatient R PASQUALE PAULA [facility] [id number] [facility] 2023-08-17 10:00:00 2023-08-17 10:30:06 Outpatient R PASQUALE PAULA VIEN [facility] [id number] [facility] 2023-08-17 10:00:00 2023-08-17 10:30:06 Office Visit Pasquale Paula [facility] 1..840.114 350.1.13.10 4.2.7.2.686 [id number] 134 [id number] [facility] 2023-06-06 14:30:00 2023-06-06 14:30:00 Outpatient R [facility] [id number] [facility] 2023-05-01 14:00:00 2023-05-01 14:00:00 Outpatient R SHANTHI BAUER [facility] [id number] [facility] 2023-04-18 14:45:00 2023-04-18 14:45:00 Outpatient R [facility] [id number] [facility] 2023-04-18 00:00:00 2023-04-18 00:00:00 Telephone Alem Mascorro [facility] 1..114 350.1.13.10 4.2.7.2.686 [id number] [facility] 2023-03-30 14:30:00 2023-03-30 14:30:00 Outpatient PEDRO LANGFORD [id number] Ani Johnson 2023-03-26 13:15:00 2023-03-26 14:17:58 Outpatient R SHANTHI BAUER [facility] [id number] [facility] 2023-03-26 13:15:00 2023-03-26 14:17:58 Routine Visit Shanthi Bauer [facility] BEAD FORMING MACHINE OPERATOR [facility] CHILD [facility] 1..114 350.1.13.10 4.2.7.2.686 [id number] [facility] 2023 00:00:00 2023 00:00:00 Patient Secure Msg Shanthi Bauer [facility] BEAD FORMING MACHINE OPERATOR [facility] & CHILD [facility] 1..114 350.1.13.10 4.2.7.2.686 [id number] [facility] 2023-03-05 09:58:00 2023-03-07 13:07:00 Inpatient P GIGI, RUSTAM YU, RUSTAM YU, [facility] [place] [id number] [facility] 2023-03-05 09:58:00 2023-03-07 13:07:00 Hospital Encounter Gigi [facility] 1..114 350.1.13.10 4.2.7.2.686 [id number] 134 [id number] [facility] 2023-03-05 14:43:00 2023-03-05 22:15:00 Anesthesia Event Carole Ramirez Allison Elizabeth [facility] 1..114 350.1.13.10 4.2.7.2.686 [id number] [facility] 2023-03-01 00:00:00 2023-03-01 00:00:00 Patient Secure Msg Shanthi Bauer [facility] BEAD FORMING MACHINE OPERATOR [facility] & CHILD [facility] 1.2.840.114 350.1.13.10 4.2.7.2.686 [id number] [facility] 2023-02-27 09:00:00 2023-02-27 09:00:00 Outpatient R SHANTHI BAUER [facility] [id number] [facility] 2023-02-27 00:00:00 2023-02-27 00:00:00 Telephone Shanthi Bauer [facility] BEAD FORMING MACHINE OPERATOR [facility] & CHILD [facility] 1..840.114 350.1.13.10 4.2.7.2.686 [id number] [facility] 2023-02-27 00:00:00 2023-02-27 00:00:00 Patient Secure Paddy Fallilola Lydia [facility] BEAD FORMING MACHINE OPERATOR [facility] CHILD [facility] 1..840.114 350.1.13.10 4.2.7.2.686 [id number] [facility] 2023-02-20 09:15:00 2023-02-20 09:29:39 Outpatient R SANIYA WOLF [facility] [id number] [facility] 2023-02-20 09:15:00 2023-02-20 09:29:39 Routine Visit Saniya Wolf [facility] BEAD FORMING [facility] 1..840.114 350.1.13.10 4.2.7.2.686 [id number] [facility] 2023-02-19 00:00:00 2023-02-19 00:00:00 Telephone Shanthi Bauer [facility] BEAD FORMING MACHINE OPERATOR [facility] & CHILD [facility] 1.2.840.114 350.1.13.10 4.2.7.2.686 [id number] [facility] 2023-02-16 14:02:00 2023-02-16 17:10:00 Outpatient X ADUM, ROSIBEL ADUM, ROSIBEL [facility] JAGRUTI [id number] [facility] 2023-02-16 14:02:00 2023-02-16 17:10:00 Emergency Adum, Rosibel Johnson [facility] 1.2.840.114 350.1.13.10 4.2.7.2.686 [id number] [facility] 2023-02-16 00:00:00 2023-02-16 00:00:00 Refill Shanthi Bauer [facility] BEAD FORMING MACHINE OPERATOR [facility] 1.2.840.114 350.1.13.10 4.2.7.2.686 [id number] [facility] 2023-02-16 00:00:00 2023-02-16 00:00:00 Nurse Triage Iram Damico [facility] 1.2.840.114 350.1.13.10 4.2.7.2.686 [id number] [facility] 2023-02-16 00:00:00 2023-02-16 00:00:00 Patient Secure Msg Shanthi Bauer [facility] BEAD FORMING MACHINE OPERATOR [facility] & CHILD [facility] 1.2.840.114 350.1.13.10 4.2.7.2.686 [id number] 107 [id number] [facility] 2023-02-14 00:00:00 2023-02-14 00:00:00 Telephone Shanthi Bauer [facility] BEAD FORMING MACHINE OPERATOR [facility] & CHILD [facility] 1.2.840.114 350.1.13.10 4.2.7.2.686 [id number] [facility] 2023-02-14 00:00:00 2023-02-14 00:00:00 Refill Shanthi Bauer [facility] BEAD FORMING MACHINE OPERATOR [facility] & CHILD [facility] 1.2840.114 350.1.13.10 4.2.7.2.686 [id number] 107 [id number] [facility] 2023-02-13 10:30:00 2023-02-13 11:21:12 Outpatient R SHANTHI BAUER [facility] [id number] [facility] 2023-02-13 10:30:00 2023-02-13 11:21:12 Routine Visit Shanthi Bauer [facility] BEAD FORMING MACHINE OPERATOR [facility] & CHILD [facility] 1.840.114 350.1.13.10 4.2.7.2.686 [id number] 107 [id number] [facility] 2023-02-13 00:00:00 2023-02-13 00:00:00 Orders Only Doctor Unassigned, Bevier [facility] 1.840.114 350.1.13.10 4.2.7.2.686 [id number] [facility] 2023-02-06 11:00:00 2023-02-06 11:00:00 Outpatient R SHANTHI BAUER [facility] [id number] [facility] 2023-02-05 16:00:00 2023-02-05 16:12:16 Outpatient R SHANTHI BAUER [facility] [id number] [facility] 2023-02-05 16:00:00 2023-02-05 16:12:16 Routine Visit Shanthi Bauer [facility] BEAD FORMING MACHINE OPERATOR [facility] & CHILD [facility] 1.840.114 350.1.13.10 4.2.7.2.686 [id number] [facility] 2023-02-05 00:00:00 2023-02-05 00:00:00 Patient Secure Msg Shanthi Bauer [facility] BEAD FORMING MACHINE OPERATOR [facility] & CHILD [facility] 1.2.840.114 350.1.13.10 4.2.7.2.686 [id number] [facility] 2023-01-24 10:30:00 2023-01-24 10:30:00 Outpatient R SHANTHI BAUER [facility] [id number] [facility] 2023-01-23 14:00:00 2023-01-23 14:00:15 Outpatient R SHANTHI BAUER [facility] [id number] [facility] 2023-01-23 14:00:00 2023-01-23 14:00:15 Routine Visit Shanthi Bauer [facility] BEAD FORMING MACHINE OPERATOR [facility] & CHILD [facility] 1.2.840.114 350.1.13.10 4.2.7.2.686 [id number] 107 [id number] [facility] 2023-01-19 00:00:00 2023-01-19 00:00:00 Patient Secure Shanthi Fall [facility] BEAD FORMING MACHINE OPERATOR [facility] 1.2.840.114 350.1.13.10 4.2.7.2.686 [id number] [facility] 2023-01-10 10:30:00 2023-01-10 10:58:10 Outpatient R SHANTHI BAUER [facility] [id number] [facility] 2023-01-10 10:30:00 2023-01-10 10:58:10 Routine Visit Shanthi Bauer [facility] BEAD FORMING MACHINE OPERATOR [facility] [id number] 350.1.13.10 4.2.7.2.686 [id number] [facility] 2023-01-10 00:00:00 2023-01-10 00:00:00 Orders Only Doctor Unassigned, [place] [facility] 1.2840.114 350.1.13.10 4.2.7.2.686 [id number] [facility] 2023-01-04 10:15:00 2023-01-04 10:15:00 Outpatient R SHANTHI BAUER [facility] [id number] [facility] 2022-12-21 09:45:00 2022-12-21 10:30:23 Outpatient R SHANTHI BAUER [facility] [id number] [facility] 2022-12-21 09:45:00 2022-12-21 10:30:23 Routine Visit Shanthi Bauer [facility] BEAD FORMING MACHINE OPERATOR [facility] 1.2840.114 350.1.13.10 4.2.7.2.686 [id number] [facility] 2022-12-13 00:00:00 2022-12-13 00:00:00 Abstract Shanthi Bauer [facility] BEAD FORMING MACHINE OPERATOR [facility] 1.2.840.114 350.1.13.10 4.2.7.2.686 [id number] [facility] 2022-12-13 00:00:00 2022-12-13 00:00:00 Patient Secure Msg Shanthi Bauer [facility] BEAD FORMING MACHINE OPERATOR [facility] 1.2.840.114 350.1.13.10 4.2.7.2.686 [id number] [facility] 2022-12-12 15:30:00 2022-12-12 15:36:22 Electrical Laboratory Technician Visit Ultrasound, Avelino Ghotra [facility] BEAD FORMING MACHINE OPERATOR [facility] MATERNAL & CHILD [facility] 1.2840.114 350.1.13.10 4.2.7.2.686 [id number] [facility] 2022-12-12 14:00:00 2022-12-12 14:37:47 Outpatient R SHANTHI BAUER [facility] [id number] [facility] 2022-12-12 14:00:00 2022-12-12 14:37:47 Routine Visit Shanthi Bauer [facility] BEAD FORMING MACHINE OPERATOR [facility] & CHILD [facility] 1.840.114 350.1.13.10 4.2.7.2.686 [id number] 107 [id number] [facility] 2022-12-12 00:00:00 2022-12-12 00:00:00 Telephone Shanthi Bauer [facility] BEAD FORMING MACHINE OPERATOR [facility] & CHILD [facility] 1.840.114 350.1.13.10 4.2.7.2.686 [id number] 107 [id number] [facility] 2022-12-07 10:30:00 2022-12-07 11:43:28 Outpatient R SHANTHI BAUER [facility] [id number] [facility] 2022-12-07 10:30:00 2022-12-07 11:43:28 Routine Visit Shanthi Bauer [facility] BEAD FORMING MACHINE OPERATOR [facility] & CHILD [facility] 1.840.114 350.1.13.10 4.2.7.2.686 [id number] 107 [id number] [facility] 2022-11-17 00:00:00 2022-11-17 00:00:00 Telephone Amber Rey [facility] [place] 1.84.114 350.1.13.10 4.2.7.2.686 [id number] [facility] 2022-11-16 10:30:00 2022-11-16 10:36:09 Outpatient R SHANTHI BAUER [facility] [id number] [facility] 2022-11-16 10:30:00 2022-11-16 10:36:09 Routine Visit Shanthi Bauer [facility] BEAD FORMING MACHINE OPERATOR [facility] & CHILD [facility] 1.840.114 350.1.13.10 4.2.7.2.686 [id number] 107 [id number] [facility] 2022-11-10 09:45:00 2022-11-10 10:30:26 Outpatient JA BEAR [facility] [id number] [facility] 2022-11-10 09:45:00 2022-11-10 10:30:26 Telemedici ne Visit Amber Rey Joseph W [facility] BEAD FORMING MACHINE OPERATOR [facility] & CHILD [facility] 1.84.114 350.1.13.10 4.2.7.2.686 [id number] 107 [id number] [facility] 2022-11-10 00:00:00 2022-11-10 00:00:00 Telephone Shanthi Bauer [facility] BEAD FORMING MACHINE OPERATOR [facility] CH[facility] 1.84.114 350.1.13.10 4.2.7.2.686 [id number] 107 [id number] [facility] 2022-11-10 00:00:00 2022-11-10 00:00:00 Orders Only Doctor Unassigned, Bevier [facility] 1..114 350.1.13.10 4.2.7.2.686 [id number] [facility] 2022-11-10 00:00:00 2022-11-10 00:00:00 Patient Secure Msg Shanthi Bauer [facility] BE[facility] FORMING [facility] 1.840.114 350.1.13.10 4.2.7.2.686 [id number] 107 [id number] [facility] 2022-11-10 00:00:00 2022-11-10 00:00:00 Patient Secure Msg Shanthi Bauer [facility] BEAD FORMING MACHINE OPERATOR [facility] & CHILD [facility] 1.2840.114 350.1.13.10 4.2.7.2.686 [id number] [facility] 2022-11-07 00:00:00 2022-11-07 00:00:00 Abstract Shanthi Bauer [facility] BEAD FORMING MACHINE OPERATOR [facility] & CHILD [facility] 1.2840.114 350.1.13.10 4.2.7.2.686 [id number] 107 [id number] [facility] 2022-11-07 00:00:00 2022-11-07 00:00:00 Telephone Shanthi Bauer [facility] BEAD FORMING MACHINE OPERATOR [facility] 1.2840.114 350.1.13.10 4.2.7.2.686 [id number] 107 [id number] [facility] 2022-10-31 14:00:00 2022-10-31 15:26:34 Outpatient P AVELINO YUN [facility] [id number] [facility] 2022-10-31 14:00:00 2022-10-31 15:26:34 Electrical Laboratory Technician Visit Ultrasound, [facility] Avelino Yun [facility] BEAD FORMING MACHINE OPERATOR [facility] & CHILD [facility] 1.2840.114 350.1.13.10 4.2.7.2.686 [id number] [facility] 2022-10-26 15:45:00 2022-10-26 16:10:05 Outpatient R SHANTHI BAUER [facility] [id number] [facility] 2022-10-26 15:45:00 2022-10-26 16:10:05 Routine Visit Shanthi Bauer [facility] BEAD FORMING MACHINE OPERATOR [facility] & CHILD [facility] 1.2840.114 350.1.13.10 4.2.7.2.686 [id number] 107 [id number] [facility] 2022-10-20 00:00:00 2022-10-20 00:00:00 Telephone WesandreaShanthi Lydia [facility] BEAD FORMING MACHINE OPERATOR [facility] & CHILD [facility] 1.2.840.114 350.1.13.10 4.2.7.2.686 [id number] 107 [id number] [facility] 2022-10-19 00:00:00 2022-10-19 00:00:00 Refill Shanthi Bauer Lydia [facility] BEAD FORMING MACHINE OPERATOR [facility] 1.2.840.114 350.1.13.10 4.2.7.2.686 [id number] 107 [id number] [facility] 2022-10-18 00:00:00 2022-10-18 00:00:00 Refill Shanthi Bauer [facility] BEAD FORMING MACHINE OPERATOR [facility] 1.2.840.114 350.1.13.10 4.2.7.2.686 [id number] [facility] 2022-10-16 15:15:00 2022-10-16 15:15:00 Outpatient SANIYA MICHAEL [facility] [id number] [facility] 2022-10-06 00:00:00 2022-10-06 00:00:00 Abstract WesandreaShanthi [facility] BEAD FORMING MACHINE OPERATOR [facility] 1.2.840.114 350.1.13.10 4.2.7.2.686 [id number] 107 [id number] [facility] 2022-09-29 15:30:00 2022-09-29 16:58:04 Outpatient RUSTAM SMITH SANGEETA [facility] [id number] [facility] 2022-09-29 15:30:00 2022-09-29 16:58:04 Electrical Laboratory Technician Visit 1, [facility] .114 350.1.13.10 4.2.7.2.686 [id number] [facility] 2022-09-22 15:15:00 2022-09-22 15:15:00 [facility] [id number] 2022-09-18 15:00:00 2022-09-18 16:06:28 Outpatient R SHANTHI BAUER [facility] [id number] [facility] 2022-09-18 15:00:00 2022-09-18 16:06:28 Routine Visit Saniya Wolf Damilola C [facility] BEAD FORMING MACHINE OPERATOR [facility] CHILD [facility] 1.84.114 350.1.13.10 4.2.7.2.686 [id number] 107 [id number] [facility] 2022-08-21 14:45:00 2022-08-21 15:43:20 Outpatient R SHANTHI BAUER [facility] [id number] [facility] 2022-08-21 14:45:00 2022-08-21 15:43:20 Routine Visit Shanthi Bauer [facility] BEAD FORMING MACHINE OPERATOR [facility] MAT[facility] CHILD [facility] 1.84.114 350.1.13.10 4.2.7.2.686 [id number] 107 [id number] [facility] 2022-08-21 10:30:00 2022-08-21 10:30:00 Outpatient R SHANTHI BAUER [facility] [id number] [facility] 2022-08-15 00:00:00 2022-08-15 00:00:00 Abstract Shanthi Bauer [facility] BEAD FORMING MACHINE OPERATOR [facility] CHILD [facility] 1.84.114 350.1.13.10 4.2.7.2.686 [id number] 107 [id number] [facility] 2022-08-14 08:30:00 2022-08-14 09:12:30 Outpatient ALBERTO ORDAZ [facility] [id number] [facility] 2022-08-14 08:30:00 2022-08-14 09:00:00 Electrical Laboratory Technician Visit Ultrasound, Alberto Garcia [facility] BEAD FORMING MACHINE OPERATOR [facility] & CHILD [facility] 1.2.840.114 350.1.13.10 4.2.7.2.686 [id number] [facility] 2022-08-09 00:00:00 2022-08-09 00:00:00 Patient Secure Msg Shanthi Bauer [facility] BEAD FORMING MACHINE OPERATOR [facility] & CHILD [facility] 1.2.840.114 350.1.13.10 4.2.7.2.686 [id number] 107 [id number] [facility] 2022-08-07 00:00:00 2022-08-07 00:00:00 Patient Secure Msg Shanthi Bauer [facility] BEAD FORMING MACHINE OPERATOR [facility] 1.2.840.114 350.1.13.10 4.2.7.2.686 [id number] 107 [id number] [facility] 2022-08-07 00:00:00 2022-08-07 00:00:00 Patient Secure Msg Shanthi Bauer [facility] BEAD FORMING MACHINE OPERATOR [facility] & CHILD [facility] 1.2.840.114 350.1.13.10 4.2.7.2.686 [id number] 107 [id number] [facility] 2022-08-03 00:00:00 2022-08-03 00:00:00 Telephone Gio Bauerlakesha Freeman [facility] BEAD FORMING MACHINE OPERATOR [facility] & CHILD [facility] 1.2.840.114 350.1.13.10 4.2.7.2.686 [id number] 107 [id number] [facility] 2022-07-31 09:30:00 2022-07-31 13:38:09 Outpatient R TERRENCE BARRON [facility] [id number] [facility] 2022-07-31 09:30:00 2022-07-31 10:00:00 Telemedici ne Visit Faculty, Scott Preston Terrence Bennett [facility] BEAD FORMING MACHINE OPERATOR [facility] & CHILD [facility] 1.0.114 350.1.13.10 4.2.7.2.686 [id number] 107 [id number] [facility] 2022-07-28 00:00:00 2022-07-28 00:00:00 Telephone Shanthi Bauer [facility] BEAD FORMING MACHINE [facility] 1.84.114 350.1.13.10 4.2.7.2.686 [id number] 107 [id number] [facility] 2022-07-27 10:15:00 2022-07-27 10:15:00 Outpatient R ADILSON CHERRY [facility] [id number] [facility] 2022-07-25 15:30:00 2022-07-25 15:30:00 Outpatient R AMENA BETANCOURT CHERYAL [facility] [id number] [facility] 2022-07-25 00:00:00 2022-07-25 00:00:00 Telephone Shanthi Bauer [facility] BEAD FORMING MACHINE OPERATOR [facility] ..114 350.1.13.10 4.2.7.2.686 [id number] 107 [id number] [facility] 2022-07-24 14:00:00 2022-07-24 14:45:45 Initial Visit Shanthi Bauer [facility] BEAD FORMING MACHINE OPERATOR [facility] & CHILD [facility] 1.84.114 350.1.13.10 4.2.7.2.686 [id number] 107 [id number] [facility] 2022-07-24 13:30:00 2022-07-24 12:53:06 Outpatient R THEA SHANTHI [facility] [id number] [facility] 2022-07-24 00:00:00 2022-07-24 00:00:00 Orders Only Doctor Unassigned, Bevier [facility] 1.840.114 350.1.13.10 4.2.7.2.686 [id number] [facility] 2022-07-14 16:30:00 2022-07-14 16:30:00 Outpatient R AMENA BETANCOURT CHERYAL [facility] [id number] [facility] 2022-07-14 00:00:00 2022-07-14 00:00:00 Telephone Amena Betancourt [facility] 1.0.114 350.1.13.10 4.2.7.2.686 [id number] 134 [id number] [facility] 2022-07-12 00:00:00 2022-07-12 00:00:00 Patient Secure Msg Amena Betanocurt [facility] 1.0.114 350.1.13.10 4.2.7.2.686 [id number] 134 [id number] [facility] 2022-07-10 09:30:00 2022-07-10 09:45:00 Electrical Laboratory Technician Visit Pob, Adc Lab Main [facility] 1.0.114 350.1.13.10 4.2.7.2.686 [id number] [facility] 2022-07-10 09:30:00 2022-07-10 09:30:00 Outpatient R AMENA BETANCOURT [facility] [id number] [facility] 2022-07-10 00:00:00 2022-07-10 00:00:00 Orders Only Doctor Unassigned, Bevier [facility] 1.2840.114 350.1.13.10 4.2.7.2.686 [id number] [facility] 2022-07-05 15:45:00 2022-07-05 15:45:00 Outpatient R AMENA BETANCOURT CHERYAL [facility] [id number] [facility] 2022-06-19 00:00:00 2022-06-19 00:00:00 Patient Secure Msg Doctor Unassigned, Bevier [facility] 1.2840.114 350.1.13.10 4.2.7.2.686 [id number] 134 [id number] [facility] 2022-06-06 00:00:00 2022-06-06 00:00:00 Telephone Amena Betancourt [facility] 1.0.114 350.1.13.10 4.2.7.2.686 [id number] 134 [id number] [facility] 2022-06-06 00:00:00 2022-06-06 00:00:00 Patient Secure Msg MariaelenaannettelorenzoAmena do [facility] 1.20.114 350.1.13.10 4.2.7.2.686 [id number] 134 [id number] [facility] 2022-05-18 16:00:00 2022-05-18 16:15:00 Electrical Laboratory Technician Visit Pob, Adc Lab Main Amena Betancourt [facility] 1.2840.114 350.1.13.10 4.2.7.2.686 [id number] [facility] 2022-05-18 16:00:00 2022-05-18 16:00:00 Outpatient R AMENA BETANCOURT CHERYAL [facility] [id number] [facility] 2022-04-25 00:00:00 2022-04-25 00:00:00 Telephone CarlosAmena do [facility] 1.2.840.114 350.1.13.10 4.2.7.2.686 [id number] 134 [id number] [facility] 2022-04-19 11:30:00 2022-04-19 11:30:00 Outpatient R AMENA BETANCOURT CHERYAL [facility] [id number] [facility] 2022-04-11 16:30:00 2022-04-11 16:30:00 Office Visit CarlosAmena do [facility] 1.2.840.114 350.1.13.10 4.2.7.2.686 [id number] 134 [id number] [facility] 2022-04-11 16:30:00 2022-04-11 16:26:25 Outpatient R MARIAELENAAMENA RAI CHERYAL [facility] [id number] [facility] 2022-04-11 00:00:00 2022-04-11 00:00:00 Telephone Rosibel Ramirez [facility] 1.2.840.114 350.1.13.10 4.2.7.2.686 [id number] 134 [id number] [facility] 2022-04-07 14:30:00 2022-04-07 14:30:00 Outpatient R AMENA [facility]ANCOURT [facility] [id number] [facility] 2022-04-04 00:00:00 2022-04-04 00:00:00 [facility] 1.2.840.114 350.1.13.10 4.2.7.2.686 [id number] 134 [id number] [facility] 2022-03-29 15:45:00 2022-03-29 15:45:00 Outpatient R AMENA BETANCOURT [facility] [id number] [facility] 2022-03-28 15:00:00 2022-03-28 16:28:45 Outpatient R ROSIBEL RAMIREZ [facility] [id number] [facility] 2022-03-28 15:00:00 2022-03-28 16:28:45 Routine Visit Rosibel Ramirez [facility] 1.2840.114 350.1.13.10 4.2.7.2.686 [id number] [facility] 2022-03-28 00:00:00 2022-03-28 00:00:00 Orders Only Doctor Unassigned, Bevier [facility] 1.2840.114 350.1.13.10 4.2.7.2.686 [id number] [facility] 2022-03-27 11:30:00 2022-03-27 11:45:00 Electrical Laboratory Technician Visit Lab, Scott - Tereso Allan [facility] 1.2840.114 350.1.13.10 4.2.7.2.686 [id number] [facility] 2022-03-27 11:15:00 2022-03-27 11:15:00 Routine Visit Amena Betancourt [facility] 1.20.114 350.1.13.10 4.2.7.2.686 [id number] 134 [id number] [facility] 2022-03-27 11:15:00 2022-03-27 10:54:35 Outpatient R AMENA BETANCOURT CHERYAL [facility] [id number] [facility] 2022-03-27 00:00:00 2022-03-27 00:00:00 Orders Only Doctor Unassigned, Bevier [facility] 1.2.840.114 350.1.13.10 4.2.7.2.686 [id number] [facility] 2022-03-27 00:00:00 2022-03-27 00:00:00 Telephone [facility] 1.2.840.114 350.1.13.10 4.2.7.2.686 [id number] 134 [id number] [facility] 2022-03-24 13:30:16 2022-03-24 23:59:00 Outpatient R AMENA BETANCOURT [facility] [id number] [facility] 2022-03-24 13:30:16 2022-03-24 23:59:00 Hospital Encounter Amena Betancourt [facility] 1.2.840.114 350.1.13.10 4.2.7.2.686 [id number] [facility] 2022-03-24 00:00:00 2022-03-24 00:00:00 Telephone Amena Betancourt [facility] 1.2.840.114 350.1.13.10 4.2.7.2.686 [id number] 134 [id number] [facility] 2022-03-23 13:31:00 2022-03-23 19:01:00 Emergency X Susan MARTINEZ [facility] ERT [id number] [facility] 2022-03-23 13:31:00 2022-03-23 19:01:00 Emergency Susan Martinez [facility] 1.2.840.114 350.1.13.10 4.2.7.2.686 [id number] [facility] 2022-03-23 13:00:00 2022-03-23 13:20:00 Nurse Visit Nurse, Scott Db Urgent Care Unknown, Attending [facility] 1.114 350.1.13.10 4.2.7.2.686 [id number] [facility] 2022-03-23 13:00:00 2022-03-23 12:57:56 Outpatient R SAGAR GONZALEZ [facility] [id number] [facility] 2022-03-23 00:00:00 2022-03-23 00:00:00 Orders Only Doctor Unassigned, Bevier [facility] 1.114 350.1.13.10 4.2.7.2.686 [id number] [facility] 2022-03-15 16:00:00 2022-03-15 16:00:00 Outpatient R FABI [facility] [id number] [facility] 2022-03-15 13:45:00 2022-03-15 14:37:26 Outpatient R AMENA BETANCOURT [facility] [id number] [facility] 2022-03-15 13:45:00 2022-03-15 14:37:26 Routine Visit Amena Betancourt [facility] 1.114 350.1.13.10 4.2.7.2.686 [id number] 134 [id number] [facility] 2022-03-15 10:15:00 2022-03-15 10:15:00 Outpatient R ROSIBEL RAMIREZ [facility] [id number] [facility] 2022 00:00:00 2022 00:00:00 [facility]phone [facility] 1.114 350.1.13.10 4.2.7.2.686 [id number] 134 [id number] [facility] 2022-03-09 00:00:00 2022-03-09 00:00:00 [facility]phone [facility] 1.2.840.114 350.1.13.10 4.2.7.2.686 [id number] 134 [id number] [facility] 2022-03-07 00:00:00 2022-03-07 00:00:00 Telephone [facility] 1.2.840.114 350.1.13.10 4.2.7.2.686 [id number] 134 [id number] [facility] 2022-03-07 00:00:00 2022-03-07 00:00:[address] [facility] 1.2.840.114 350.1.13.10 4.2.7.2.686 [id number] 134 [id number] [facility] 2022-03-06 00:00:00 2022-03-06 00:00:00 Outpatient R AMENA BETANCOURT [facility] [id number] [facility] 2022-03-06 00:00:00 2022-03-06 00:00:00 Telephone [facility] 1.2.840.114 350.1.13.10 4.2.7.2.686 [id number] 134 [id number] [facility] 2022-03-05 00:00:00 2022-03-05 00:00:00 Case [facility] 1.2.840.114 350.1.13.10 4.2.7.2.686 [id number] [facility] 2022-03-03 14:10:30 2022-03-03 23:59:00 Outpatient R AMENA BETANCOURT CHERYAL [facility] [id number] [facility] 2022-03-03 14:00:00 2022-03-03 23:59:00 Hospital Encounter Amena Betancourt [facility] 1.2.840.114 350.1.13.10 4.2.7.2.686 [id number] [facility] 2022-02-23 00:00:00 2022-02-23 00:00:00 Case Management Amena Betancourt [facility] 1.20.114 350.1.13.10 4.2.7.2.686 [id number] 134 [id number] [facility] 2022-02-22 16:45:00 2022-02-22 17:00:00 Electrical Laboratory Technician Visit Pob, Adc Lab Main [facility] 1.2840.114 350.1.13.10 4.2.7.2.686 [id number] [facility] 2022-02-22 15:30:00 2022-02-22 16:14:30 Outpatient R AMENA BETANCOURT [facility] [id number] [facility] 2022-02-22 15:30:00 2022-02-22 16:14:30 Initial Visit Amena Betancourt [facility] 1.20.114 350.1.13.10 4.2.7.2.686 [id number] [facility] 2022-02-20 13:15:00 2022-02-20 13:30:00 Electrical Laboratory Technician Visit Pob, Adc Lab Main Allan [facility] 1.2840.114 350.1.13.10 4.2.7.2.686 [id number] [facility] 2022-02-20 13:15:00 2022-02-20 13:15:00 Outpatient R AMENA BETANCOURT CHERYAL [facility] [id number] [facility] 2022-02-20 00:00:00 2022-02-20 00:00:00 Patient Secure Amena Russo [facility] 1.840.114 350.1.13.10 4.2.7.2.686 [id number] [facility] 2022-02-20 00:00:00 2022-02-20 00:00:00 [facility]phone [facility] 1.0.114 350.1.13.10 4.2.7.2.686 [id number] [facility] 2022-02-20 00:00:00 2022-02-20 00:00:00 Patient Secure Deanne Ghosh [facility] 1.0.114 350.1.13.10 4.2.7.2.686 [id number] 134 [id number] [facility] 2022-02-18 10:00:00 2022-02-18 10:15:00 Electrical Laboratory Technician Visit Pob, Adc Lab Main Amena Betancourt [facility] 1.840.114 350.1.13.10 4.2.7.2.686 [id number] [facility] 2022-02-18 10:00:00 2022-02-18 10:00:00 Outpatient R AMENA BETANCOURT CHERYAL [facility] [id number] [facility] 2022-02-18 00:00:00 2022-02-18 00:00:00 Orders Only Doctor Unassigned, [place] [facility] 1.840.114 350.1.13.10 4.2.7.2.686 [id number] [facility] 2022-02-17 00:00:00 2022-02-17 00:00:00 Patient Secure Deanne Ghosh [facility] 1.2.840.114 350.1.13.10 4.2.7.2.686 [id number] [facility] 2022-02-17 00:00:00 2022-02-17 00:00:00 Telephone Allan Hollandtor [facility] 1.2.840.114 350.1.13.10 4.2.7.2.686 [id number] [facility] 2022-02-08 00:00:00 2022-02-08 00:00:00 Outpatient R AMENA BETANCOURT CHERYAL [facility] [id number] [facility] 2022-01-24 15:30:00 2022-01-24 16:07:03 Outpatient R AMENA BETANCOURT [facility] [id number] [facility] 2022-01-24 15:30:00 2022-01-24 16:07:03 Office Visit Amena Betancourt [facility] 1.2.840.114 350.1.13.10 4.2.7.2.686 [id number] [facility] 2022-01-20 15:15:00 2022-01-20 15:15:00 Outpatient R AMENA BETANCOURT [facility] [id number] [facility] 2022-01-06 16:00:00 2022-01-06 16:00:00 Outpatient R AMENA BETANCOURT CHERYAL [facility] [id number] [facility] 2022-01-06 14:15:00 2022-01-06 14:27:31 Outpatient R JARETH OLMEDO [facility] [id number] [facility] 2022-01-06 14:15:00 2022-01-06 14:27:31 Office Visit Jareth Olmedo [facility] 1..114 350.1.13.10 4.2.7.2.686 [id number] 134 [id number] [facility] 2022-01-03 00:00:00 2022-01-03 00:00:00 Telephone Jareth Olmedo [facility] 1..114 350.1.13.10 4.2.7.2.686 [id number] 134 [id number] [facility] 2021-12-30 11:00:00 2021-12-30 11:13:02 Electrical Laboratory Technician Visit 2, Adc Lab Jareth Olmedo [facility] 1.2114 350.1.13.10 4.2.7.2.686 [id number] [facility] 2021-12-30 09:30:00 2021-12-30 10:59:31 Outpatient R JARETH OLMEDO [facility] [id number] [facility] 2021-12-30 09:30:00 2021-12-30 10:59:31 Office Visit Jareth Olmedo [facility] 1.284.114 350.1.13.10 4.2.7.2.686 [id number] 134 [id number] [facility] 2021-12-30 09:30:00 2021-12-30 10:59:31 Outpatient R JARETH OLMEDO [facility] [id number] [facility] 2021-12-30 00:00:00 2021-12-30 00:00:00 Orders Only Doctor Unassigned, [place]ier [facility] 1.20.114 350.1.13.10 4.2.7.2.686 [id number] [facility] 2021-12-28 00:00:00 2021-12-28 00:00:00 [facility] 1.2.840.114 350.1.13.10 4.2.7.2.686 [id number] 134 [id number] [facility] 2021-11-23 09:30:00 2021-11-23 10:56:47 Outpatient R AMENA BETANCOURT [facility] [id number] [facility] 2021-11-23 09:30:00 2021-11-23 10:56:47 [facility] 1.2.840.114 350.1.13.10 4.2.7.2.686 [id number] 134 [id number] [facility] 2021-11-09 16:30:00 2021-11-09 16:45:00 Electrical Laboratory Technician Visit Lab, Quinten Cardenas [facility] 1.2.840.114 350.1.13.10 4.2.7.2.686 [id number] [facility] 2021-11-09 15:00:00 2021-11-09 15:40:11 [facility] 1.2.840.114 350.1.13.10 4.2.7.2.686 [id number] [facility] 2021-11-09 15:00:00 2021-11-09 15:40:11 Outpatient R AMENA BETANCOURT [facility] [id number] [facility] 2021-11-09 15:00:00 2021-11-09 15:40:11 Outpatient R AMENA BETANCOURT [facility] [id number] [facility] 2021-11-09 15:00:00 2021-11-09 15:00:00 Outpatient R CARLOSAMENA DO CARLOSAMENA DO [facility] [id number] [facility] 2021-10-27 15:00:00 2021-10-27 15:45:46 Outpatient R JARETH OLMEDO [facility] [id number] [facility] 2021-10-27 15:00:00 2021-10-27 15:45:46 Office Visit Jareth Olmedo [facility] 1.2.840.114 350.1.13.10 4.2.7.2.686 [id number] 134 [id number] [facility] 2021-10-27 00:00:00 2021-10-27 00:00:00 Orders Only Doctor Unassigned, Bevier [facility] 1.2.840.114 350.1.13.10 4.2.7.2.686 [id number] [facility] 2021-10-18 12:38:00 2021-10-18 17:05:00 Emergency X KAMERON DANIELS [facility] ERT [id number] [facility] 2021-10-18 12:38:00 2021-10-18 17:05:00 Emergency Kameron Daniels [facility] 1.2.840.114 350.1.13.10 4.2.7.2.686 [id number] [facility] 2021-10-18 12:38:00 2021-10-18 17:05:00 Emergency X KAMERON DANIELS [facility] ERT [id number] [facility] 2021-02-20 07:08:00 2021-02-20 10:32:00 Emergency EM Praveen Lizarraga [facility] [id number] [facility] Results Test Description Test Time Test Comments Results Result Co mments Source [facility] w/o Specific [id number] 19:44:00* Test Item Value Reference Range Interpretation Comme [...] = 3257) n/a Negative - Negati ve [facility] Urinalysis w/o Specific [id number] 20:05:00* Test Item Value Reference Range Interpretation Comme [...] = 3257) n/a Negative - Negati ve [facility] [id number] 15:03:00* Test Item Value Reference Range Interpretation Comme nts POCT PREG (test code = 1605) Positive On board controls acceptable with C Line (test code = 3574) Yes POCT PREG LOT # (test code = 3575) POCT PREG TEST DATE ( test code = 3576) [facility] [id number] 15:03:00* Test Item Value Reference Range Interpretation Comme nts POCT PREG (test code = 1605) Positive On board controls acceptable with C Line (test code = 3574) Yes POCT PREG LOT # (test code = 3575) POCT PREG TEST DATE ( test code = 3576) [facility] with Ncmybvkgvzni9022-54-43 11:03:13* Test Item Value Reference Range Interpretation [...] 34.6 g/dL 31.6-35.1 RDW-SD (test code = 41478-4) 45.6 fL 39.0-49.9 RDW-CV (test code = 788-0) 13.9 % 12.0-15.5 PLT (test code = 777-3) 270 See_Comment [Automated messa ge] The system which generated this result transmitted reference range: 166 - 358 10*3/?L. The reference range was not used to interpret this result as normal/abnormal. MPV (test code = 06998-1) 9.7 fL 9.5-12.9 NRBC/100 WBC (test code = 0433241261) 0.0 See_Comment [Automated [employer] ssage] The system which generated this result transmitted reference range: 0.0 - 10.0 /100 WBCs. The reference range was not used to interpret this result as normal/abnormal. NRBC x10^3 (test code = 7177952996) See_Comment [Automated messa ge] The system which generated this result transmitted reference range: 10*3/?L. The reference range was not used to interpret this result as normal/abnormal. GRAN MAT (NEUT) % (test code = 770-8) 73.5 % IMM GRAN % (test code = 9349995501) 0.60 % LYMPH % (test code = 736-9) 14.2 % MONO % (test code = 5905-5) 10.1 % EOS % (test code = 713-8) 1.4 % BASO % (test code = 706-2) 0.2 % GRAN MAT x10^3(ANC) (test code = 5173703163) 9.12 10*3/uL 1.88-7.09 H IMM GRAN x10^3 (test code = 5301755974) 0.07 10*3/uL 0.00-0.06 H LYMPH x10^3 (test code = 731-0) 1.77 10*3/uL 1.32-3.29 MONO x10^3 (test code = 742-7) 1.26 10*3/uL 0.33-0.92 H EOS x10^3 (test code = 711-2) 0.18 10*3/uL 0.03-0.39 BASO x10^3 (test code = 704-7) 0.03 10*3/uL 0.01-0.07 Lab Interpretation (test code = 45503-8) Abnormal [facility]) IMMUNE [id number] 05:29:48* Test Item Value Reference Range Interpretation Comme nts RHIG CANDIDATE? (test code = 5188) Yes- see comment A Patient is a candidate for RhIg- Patient is Rh Negative and baby is Rh Positive.Performe d at [facility] Laboratory Services - [facility] Blood [address] [address]Yqzz Free: [phone] No. [id number] Lab Interpretation (test code = 89109-9) Abnormal [facility] HospitalAr[facility]ial Cord Agj6215-59-50 02:53:06* Test Item Value Reference Range Interpretation Comme nts BASE EXCESS, CORD (test code = 9029176327) -3.0 mEq/L AC PH, CORD (BEAKER) (test code = 5800391714) 7.27 7.18-7.38 PC02, CORD (test code = 2090678301) 56 See_Comment [Automated messa ge] The system which generated this result transmitted reference range: 32 - 66 mmHg. The reference range was not used to interpret this result as normal/abnormal. PO2, CORD (test code = 8322381759) 20 See_Comment [Automated messa ge] The system which generated this result transmitted reference range: 10 - 30 mmHg. The reference range was not used to interpret this result as normal/abnormal. BICARBONATE, CORD (test code = 0189748537) 25 See_Comment [Automated messa ge] The system which generated this result transmitted reference range: 17 - 27 mEq/L. The reference range was not used to interpret this result as normal/abnormal. [facility] Hospital[facility]ous Cord [id number] 02:51:49* Test Item Value Reference Range Interpretation Comme nts VENOUS BASE EXCESS, CORD (test code = 9584442465) -5.0 mEq/L VENOUS PH, CORD (test code = 6136429044) 7.26 7.25-7.45 VENOUS PC02, CORD (test code = 1880500438) 51 See_Comment H [Automated me ssage] The system which generated this result transmitted reference range: 27 - 49 mmHg. The reference range was not used to interpret this result as normal/abnormal. VENOUS PO2, CORD (test code = 8499100160) 20 See_Comment [Automated me ssage] The system which generated this result transmitted reference range: 17 - 41 mmHg. The reference range was not used to interpret this result as normal/abnormal. VENOUS BICARBONATE, CORD (test code = 2223159119) 22 See_Comment [Automa ayde message] The system which generated this result transmitted reference range: 12 - 29 mEq/L. The reference range was not used to interpret this result as normal/abnormal. Lab Interpretation (test code = 61300-7) Abnormal [facility] HospitalANTI-D R/O [id number] 20:18:18* Test Item Value Reference Range Interpretation Comme nts ANTIBODY (test code = 683) Anti-D Probable RhIg Patient received Rhogam on 12/21/22Performed at [facility] Laboratory Services - [facility] Blood [address] [place] [address]Snkc Free: [phone] No. [id number] [facility] HospitalPOMT URINALYSIS W SPECIFIC [id number] 15:07:00* Test Item Value Reference Range Interpretation [...] . [facility] URINALYSIS W SPECIFIC [id number] 16:00:00* Test Item Value Reference Range Interpretation [...] . [facility] URINALYSIS W SPECIFIC [id number] 20:59:00* Test Item Value Reference Range Interpretation [...] . [facility] URINALYSIS W SPECIFIC [id number] 18:27:00* Test Item Value Reference Range Interpretation [...] code = 3259) trace Negative - Negat theorn POCT U GLU (test code = 3256) [...] . [facility] URINALYSIS W SPECIFIC [id number] 18:27:00* Test Item Value Reference Range Interpretation [...] . [facility] URINALYSIS W SPECIFIC [id number] 18:27:00* Test Item Value Reference Range Interpretation [...] . [facility] URINALYSIS W SPECIFIC [id number] 18:27:00* Test Item Value Reference Range Interpretation [...] U APPEAR (test code = 3267) . [facility] UR[facility] W SPECIFIC [id number] 14:41:00* Test Item Value Reference Range Interpretation [...] U APPEAR (test code = 3267) . [facility] HospitalGALV ONLY - SYPHILIS IGG/JQK1011-46-91 15:06:38* Test Item Value Reference Range Interpretation Comme nts Syphilis IgG/IgM (test code = 73377-8) Non-reactive Non-reactive SAMY (test code = SAMY) Non-reactive - No serologic evidence of T. pallidum infection. Cannot exclude incubating or early syphilis. Submit a second specimen in 2-4 weeks if syphilis is clinically suspected. Equivocal - Further testing to follow. Reactive - Further testing to follow. Lab Interpretation (test code = 67507-0) Normal [facility] HospitalPrenatal Workup, Blood [id number] 19:09:00 * Test Item Value Reference Range Interpretation Comme nts ABO & RH (test code = 20) O NEGATIVE IAT (test code = 1185) Negative [facility] URINALYSIS W SPECIFIC [id number] 14:23:00* Test Item Value Reference Range Interpretation [...] . [facility] URINALYSIS W SPECIFIC [id number] 19:12:00* Test Item Value Reference Range Interpretation [...] . [facility] URINALYSIS W SPECIFIC [id number] 15:07:00* Test Item Value Reference Range Interpretation [...] . [facility] URINALYSIS W SPECIFIC [id number] 15:07:00* Test Item Value Reference Range Interpretation [...] . [facility] URINALYSIS W SPECIFIC [id number] 14:51:00* Test Item Value Reference Range Interpretation [...] . [facility] URINALYSIS W SPECIFIC [id number] 14:51:00* Test Item Value Reference Range Interpretation [...] . [facility] URINALYSIS W SPECIFIC [id number] 14:51:00* Test Item Value Reference Range Interpretation [...] . [facility] URINALYSIS W SPECIFIC [id number] 20:52:00* Test Item Value Reference Range Interpretation [...] . [facility] URINALYSIS W SPECIFIC [id number] 20:36:00* Test Item Value Reference Range Interpretation [...] 3267) [facility] URINALYSIS W SPECIFIC [id number] 20:22:00* Test Item Value Reference Range Interpretation [...] . [facility] URINALYSIS W/O SPECIFIC [id number] 18:12:00* Test Item Value Reference Range Interpretation [...] = 3257) NEG Negative - Negati ve [facility] HospitalPOCT [id number] 18:11:00* Test Item Value Reference Range Interpretation Comme nts POCT PREG (test code = 1605) Positive On board controls acceptable with C Line (test code = 3574) Yes POCT PREG LOT # (test code = 3575) POCT PREG TEST DATE ( test code = 3576) [facility] HospitalTROPONIN [id number] 21:14:40* Test Item Value Reference Range Interpretation Comments TROPONIN I (test code = 4057399039) 0.002 ng/mL See_Comment [Automated message] The system [...] of biotin. Lab Interpretation (test code = 63113-1) Normal [facility] HospitalN-TERMINAL [id number]-[id number] 21:08:59* Test Item Value Reference Range Interpretation Comme nts NT-proBNP (test code = 3136587911) 53 pg/mL See_Comment [Automated message] The system which generated this result transmitted reference range: <=125. The reference range was not used to interpret this result as normal/abnormal. SAMY (test code = SAMY) Biotin has been reported to cause a negative bias, interpret results relative to patient's use of biotin. Lab Interpretation (test code = 15921-0) Normal [facility] HospitalMAGNESIUM2022-12-08 21:00:36* Test Item Value Reference Range Interpretation Comme nts MAGNESIUM (test code = 4150115328) 1.9 mg/dL 1.7-2.4 Lab Interpretation (test cod e = 05752-7) Normal [facility] HospitalCOMP. METABOLIC PANEL (49264)2022-03-23 21:00:16* Test Item Value Reference Range Interpretation Comme nts NA (test code = 5268519828) 136 mmol/L 135-145 K (test code = 0320992721) 4.4 mmol/L 3.5-5.0 CL (test code = 1730909243) 104 mmol/L 98-108 CO2 TOTAL (test code = 8764461660) 24 mmol/L 23-31 AGAP (test code = 4835864154) 2-16 BUN (test code = 3614338558) 13 mg/dL 7-23 GLUCOSE (test code = 4765890337) 92 mg/dL 70-110 CREATININE (test code = 0776464616) 0.53 mg/dL 0.50-1.04 TOTAL BILI (test code = 2862579591) 0.4 mg/dL 0.1-1.1 CALCIUM (test code = 4706453219) 9.1 mg/dL 8.6-10.6 T PROTEIN (test code = 7831384835) 7.2 g/dL 6.3-8.2 ALBUMIN (test code = 1917811017) 4.6 g/dL 3.5-5.0 ALK PHOS (test code = 4962305650) 50 U/L 34-122 ALTv (test code = 1742-6) 23 U/L 5-35 AST(SGOT) (test code = 7558975249) 32 U/L 13-40 eGFR (test code = 4271532485) mL/min/1.73m2 SAMY (test code = SAMY) Association [...] or urine or abnormalities in imaging tests). [facility] WITH [id number] 20:35:10* Test Item Value Reference Range Interpretation Comme nts WBC (test code = 6690-2) See_Comment [[employer]] The system which generated this result transmitted reference range: 4.30 - 11.10 10*3/?L. The reference range was not used to interpret this result as normal/abnormal. RBC (test code = 789-8) See_Comment L [[employer]] The system which generated this result transmitted [...] 34.5 g/dL 31.6-35.1 RDW-SD (test code = 22458-4) 40.3 fL 39.0-49.9 RDW-CV (test code = 788-0) 12.1 % 12.0-15.5 PLT (test code = 777-3) See_Comment [Automated messa ge] The system which generated this result transmitted reference range: 166 - 358 10*3/?L. The reference range was not used to interpret this result as normal/abnormal. MPV (test code = 61751-2) 9.3 fL 9.5-12.9 L NRBC/100 WBC (test code = 7716513847) See_Comment [Automated [employer] ssage] The system which generated this result transmitted reference range: 0.0 - 10.0 /100 WBCs. The reference range was not used to interpret this result as normal/abnormal. NRBC x10^3 (test code = 6288746102) See_Comment [Automated messa ge] The system which generated this result transmitted reference range: 10*3/?L. The reference range was not used to interpret this result as normal/abnormal. GRAN MAT (NEUT) % (test code = 770-8) 73.4 % IMM GRAN % (test code = 9354637461) 0.50 % LYMPH % (test code = 736-9) 15.5 % MONO % (test code = 5905-5) 8.2 % EOS % (test code = 713-8) 2.1 % BASO % (test code = 706-2) 0.3 % GRAN MAT x10^3(ANC) (test code = 9578694744) 7.55 10*3/uL 1.88-7.09 H IMM GRAN x10^3 (test code = 3831679585) 0.05 10*3/uL 0.00-0.06 LYMPH x10^3 (test code = 731-0) 1.60 10*3/uL 1.32-3.29 MONO x10^3 (test code = 742-7) 0.84 10*3/uL 0.33-0.92 EOS x10^3 (test code = 711-2) 0.22 10*3/uL 0.03-0.39 BASO x10^3 (test code = 704-7) 0.03 10*3/uL 0.01-0.07 Lab Interpretation (test code = 32663-1) Abnormal [facility] URINALYSIS W/O SPECIFIC [id number] 20:09:00* Test Item Value Reference Range Interpretation [...] = 3257) n/a Negative - Negati ve [facility] URINALYSIS W/O SPECIFIC [id number] 16:00:00* Test Item Value Reference Range Interpretation [...] = 3257) N/A Negative - Negati ve [facility] URINALYSIS W/O SPECIFIC [id number] 16:00:00* Test Item Value Reference Range Interpretation [...] = 3257) N/A Negative - Negati ve [facility] URINALYSIS W/O SPECIFIC GFDGPTL3390-15-02 16:00:00* Test Item Value Reference Range Interpretation [...] = 3257) N/A Negative - Negati ve [facility] URINALYSIS W/O SPECIFIC [id number] 16:00:00* Test Item Value Reference Range Interpretation [...] = 3257) N/A Negative - Negati ve [facility] URINALYSIS W/O SPECIFIC GOZLKBY7158-01-21 16:00:00* Test Item Value Reference Range Interpretation [...] = 3257) N/A Negative - Negati ve [facility] URINALYSIS W/O SPECIFIC [id number] 16:00:00* Test Item Value Reference Range Interpretation [...] = 3257) N/A Negative - Negati ve [facility] [id number] 18:43:00* Test Item Value Reference Range Interpretation Comme nts POCT PREG (test code = 1605) Negative On board controls acceptable with C Line (test code = 3574) Yes POCT PREG LOT # (test code = 3575) POCT PREG TEST DATE ( test code = 3576) [facility] [id number] 18:43:00* Test Item Value Reference Range Interpretation Comme nts POCT PREG (test code = 1605) Negative On board controls acceptable with C Line (test code = 3574) Yes POCT PREG LOT # (test code = 3575) POCT PREG TEST DATE ( test code = 3576) [facility] [id number] 18:43:00* Test Item Value Reference Range Interpretation Comme nts POCT PREG (test code = 1605) Negative On board controls acceptable with C Line (test code = 3574) Yes POCT PREG LOT # (test code = 3575) POCT PREG TEST DATE ( test code = 3576) [facility] [id number] 15:29:00* Test Item Value Reference Range Interpretation Comme nts POCT PREG (test code = 1605) Negative On board controls acceptable with C Line (test code = 3574) Yes POCT PREG LOT # (test code = 3575) POCT PREG TEST DATE ( test code = 3576) [facility] [id number] 15:29:00* Test Item Value Reference Range Interpretation Comme nts POCT PREG (test code = 1605) Negative On board controls acceptable with C Line (test code = 3574) Yes POCT PREG LOT # (test code = 3575) POCT PREG TEST DATE ( test code = 3576) [facility]- US TRANSVAGINAL NON [id number] 09:32:00 [facility] : 1990 Sex: F Patient Name: BROOKE THOMAS Unit No: [id number] EXAMS: CPT CODE: [id number] [place] [address] C3 TIME OF STUDY: 02/20/2021 REASON FOR [...] Sophy Stevenson Trnscrbd D/ (0932) [email or web address] Probe: [id number] Orig Print D/T:S: 02/20/2021 (0935) Probe: ELISABETH Cavanaugh NAME: BROOKE THOMAS [address] [place] [address] PHYS: Indira [place], [place] [address] : 1990 AGE: 30 SEX: F LOC: B. ERS PHONE #: [phone] EXAM DATE: 02/20/2021 STATUS: REG ER FAX #: [phone] RAD NO: Page 1 Signed ReportLACTIC [id number] 09:17:00* Test Item Value Reference Range Interpretation Comme nts LACTIC ACID (test code = LACT) 2.1 mmol/L 0.4-2.0 H ON 02/20/21 AT 0 917, B.LAB.EJK CALLED TO JASSON HUNTER. The report was confirmed by read back protocols Y,N: YES. Critical values after the first occurrence are excluded. - CT ABD PELVIS W/[id number] 08:35:00 [facility] : 1990 Sex: F Patient Name: BROOKE THOMAS Unit No: [id number] EXAMS: CPT CODE: [id number] CT ABD PELVIS W/CONT 24498IVKH: - CT ABD PELVIS W/CONT LOCATION: C3 INDICATION: 30 years -old Female with bl flank pain / hx renal; calculi TECHNIQUE: Contrast - IV contrast was given. No oral contrast was given Portal venous phase - abdomen and pelvis No delayed phase images were obtained. Reconstructions - coronal and sagittal planes This exam was performed according to our departmental dose-optimization program, whichincludes automated exposure control, adjustment of the mA [...] bladder abnormality is present. 2.2 cm cystlike lesionin the left ovary. Gastrointestinal: No bowel obstruction or perienteric inflammation. The appendix is normal. Vascular: No evidence of aneurysm or dissection. Lymphatics: No enlarged lymph nodes by CT size criteria. Bones/Soft Tissues: No acute osseous findings. No ventral hernias. Peritoneum/Other: No extraluminal air. No extraluminal fluid. IMPRESSION: 2.2 cm cystlike lesion in the left ovary. [facility] Mao NAME: BROOKE THOMAS [address] [place] [address] Blvd PHYS: ABBE.[employer] - Indira Tyler [place], [place] [address] : 1990 AGE: 30 SEX: F LOC: B.CLARISSE PHONE #: [phone] DATE: 02/20/2021 STATUS: REG ER FAX #: [phone] RAD #: D/C DT PAGE 1 Signed Report (CONTINUED) Patient Name: BROOKE THOMAS Unit No: [id number] EXAMS: CPT CODE: [id number] CT ABD PELVIS W/CONT 66277 <Continued> No evidence of obstructive uropathy. at 0835 Reported and signed by: Adelso Adler MD CC: Clare MARIE Dictated Date/Time: 02/20/2021 (0835) Technologist: Orlando Burgos CTDI: 9.22 DLP: 492.32 Trnscrpt: 02/20/2021 (0835) [email or web address] ELISABETH Cavanaugh NAME: [address] PHYS: VIKTORIYA ThibodeauxIndira castañ[place] [address] : 1990 AGE: 30 SEX: F LOC: B.ERS PHONE #: [phone] EXAM DATE: 02/20/2021 STATUS: REG ER FAX #: [phone] RAD #: D/C DT PAGE 2 Signed Report Patient Name: BROOKE THOMAS Unit No: [id number] EXAMS: CPT CODE: [id number] CT ABD PELVIS W/CONT 32098 <Continued> Orig Print D/T: S: 02/20/2021 (0839) ELISABETH Cavanaugh NAME: [address] PHYS: MICHELLELissa ThibodeauxIndira castañ[place]Kim[place] [address] : 1990 AGE: 30 SEX: F LOC: B.ERS PHONE #: [phone] EXAM DATE: 02/20/2021 STATUS: REG ER FAX #: [phone] RAD #: D/C DT PAGE 3 Signed WyevcyIBVFWU9113-82-93 08:03:00* Test Item Value Reference Range Interpretation Comme nts LIPASE (test code = LIP) 50 Unit/L 114-286 L BASIC METABOLIC [id number] 08:03:00* Test Item Value Reference Range Interpretation [...] interpret this result as normal/abnormal. HEPATIC FUNCTION [id number] 08:03:00* Test Item Value Reference Range Interpretation [...] ALKP) 86 Unit/L 45-117 N CBC W/O [id number] 07:54:00* Test Item Value Reference Range Interpretation [...] 6.8-11.2 N UA RFLX MICR CULT IF [id number] 07:51:00* Test Item Value Reference Range Interpretation [...] = UACULT) Crit NOTmet CULT-N/A [facility] Specimen comments: ccIndication for culture: Suprapubic PainUR HCG QUAL 2021-02-20 07:51:00* Test Item Value Reference Range Interpretation Comme nts UR HCG QUAL (test code = HCGQLU) NEGATIVE NEG Very dilute urin es with a low specific gravity may notcontain service center representative levels of hCG. Specimen comments: ccIndication for culture: Suprapubic Pain- XR ELBOW 3 + V LT 2018-06-06 18:55:00FAX: Ortega Barrera MD [phone] [place]: E St: REG FAX: Swapnil Smith NP [phone] ----- Patient Name: BROOKE SYKES Unit No: [id number] EXAMS: CPT CODE: [id number] XR ELBOW 3 + V LT 50960 EXAMINATION: - XR FOREARM 2 VIEWS LT, [...] [email or web address] Orig Print D/T: S: 06/06/2018 (1858) [facility] NAME: MONYBROOKE YAO [address] [place] [address] PHYS: TERE. Swapnil Gonzalez NP, [id number] : 1990 AGE: 28 SEX: F LOC: STEPHANIE PHONE #: [phone] EXAM DATE: 06/06/2018 STATUS: REG ER FAX #: [phone] RAD NO: DC Dt: PAGE 1 Signed Report- XR FOREARM 2 VIEWS [id number] 18:55:00FAX: Ortega Barrera MD [phone] [place]: E St: REG FAX: Swapnil Smith NP [phone] ---- Patient Name: BROOKE SYKES Unit No: [id number] EXAMS: CPT CODE: [id number] XR FOREARM [address] [place] [address] EXAMINATION: - XR FOREARM 2 VIEWS LT, - XR ELBOW 3 + V LT. LOCATION: B2. HISTORY: fall. COMPARISON: None. TECHNIQUE: AP, lateral, and oblique views of the left elbow were obtained. AP and lateral views of the left forearm were also obtained. FINDINGS: No acute fracture or dislocation is identified. Soft tissuestructures appear within normal limits. IMPRESSION: No acute osseous abnormality is identified. at 1855 Reported and signed by: Pau Iglesias ei, MD CC: Swapnil Gonzalez NP Dictated Date/Time: 06/06/2018 (1854)Technologist: Elise Stark Transcribed Date/Time: 06/06/2018 (1854) By: [email or web address] Orig Print D/T: S: 06/06/2018 (1858) ELISABETH Cavanaugh NAME: BROOKE SYKES [address] [place] [address] PHYS: [email or web address] - Swapnil Gonzalez NP, [place] [address] : 1990 AGE: 28 SEX: F LOC: STEPHANIE PHONE #: [phone] EXAM DATE: 06/06/2018 STATUS: REG ER FAX #: [phone] RAD NO: DC Dt: PAGE 1 Signed Report- XR HAND 3 + V [id number] 18:54:00FAX: Ortega Barrera MD [phone] [place]: E St: REG FAX: Swapnil Smith NP [phone] ----- Patient Name: BROOKE SYKES Unit No: [id number] EXAMS: CPT CODE: [id number] XR HAND 3 + V LT [address]94 EXAMINATION: - XRWRIST 3 + V LT, - XR HAND 3 + V LT. LOCATION: B2. HISTORY: fall. COMPARISON: None. TECHNIQUE: AP, lateral, and oblique views of the left wrist and left hand were obtained. FINDINGS: No acute fractureor dislocation is identified. Incidental note is made of negative ulnar variance. Soft tissue structures appear within normal limits. IMPRESSION: No acute osseous abnormality is identified. at 1854 Reported and signed by: Pau Cardenas [facility]: Swapnil Gonzalez NP Dictated Date/Time: 06/06/2018 (1853)Technologist: Elise Stark Transcribed Date/Time: 06/06/2018 (1853) By: [email or web address] Orig Print D/T: S: 06/06/2018 (1856) ELISABETH Cavanaugh NAME:BROOKE SYKES [address] [place] [address] PHYS: [email or web address] - Swapnil Gonzalez NP, [place] [address] : 1990 AGE: 28 SEX: F LOC: STEPHANIE PHONE #: [phone] EXAM DATE: 06/06/2018 STATUS: REG ER FAX #: [phone] RAD NO: DC Dt: PAGE 1 Signed Report- XR WRIST 3 + V [id number] 18:54:00FAX: Ortega Barrera MD [phone] [place]: E St: REG FAX: Swapnil Smith NP [phone] ----- Patient Name: BROOKE SYKES Unit No: [id number] EXAMS: CPT CODE: [id number] XR WRIST 3 + V LT [address]36 EXAMINATION: - XR WRIST 3 + V LT, - XR HAND 3 + V LT. LOCATION: B2. HISTORY: fall. COMPARISON: None. TECHNIQUE: AP,lateral, and oblique views of the left wrist [...] [email or web address] Orig Print D/T: S: 06/06/2018 (1856) [facility] Mao NAME: BROOKE SYKES [address] [place] [address] PHYS: TERE. - Swapnil Gonzalez NP Mao [id number] : 1990 AGE: 28 SEX: F LOC: STE[place]ANIE PHONE #: [phone] EXAM DATE: 06/06/2018 STATUS: REG ER FAX #: [phone] RAD NO: DC Dt: PAGE 1 Signed Report- XR HUMERUS 2 + V [id number] 18:51:00FAX: Ortega Barrera MD [phone] [place]: E St: REG FAX: Swapnil Smith NP [phone] ----- Patient Name: BROOKE SYKES Unit No: [id number] EXAMS: CPT CODE: [id number] XR HUMERUS 2 + V LT [address]5533 EXAMINATION: - XR HUMERUS 2 + V [...] [email or web address] Orig Print D/T: S: 06/06/2018 (1854) [facility] NAME: BROOKE SYKES [address] [place] [address] PHYS: TERE. - Swapnil Gonzalez NP [place], [place] [address] : 1990 AGE: 28 SEX: F LOC: STEPHANIE PHONE #: [phone] EXAM DATE: 06/06/2018 STATUS: REG ER FAX #: [phone] RAD NO: DC Dt: PAGE 1 Signed Report- XR SHOULDER 2 + V [id number] 18:50:00FAX: Ortega Barrera MD [phone] [place]: St: REG FAX: Swapnil Smith NP [phone] ----- Patient Name: BROOKE SYKES Unit No: [id number] EXAMS: CPT CODE: [id number] XR SHOULDER 2 + [place] [address] EXAMINATION: - XR SHOULDER 2 + V [...] 06/06/2018 (1852) ELISABETH Cavanaugh NAME: BROOKE SYKES [address] PHYS: NIRISABEL. - Swapnil Gonzalez [place], [place] [address] : 1990 AGE: 28 SEX: F LOC: [place]IE PHONE #: [phone] EXAM DATE: 06/06/2018 STATUS: REG ER FAX #: [phone] RAD NO: DC Dt: PAGE 1 Signed Report Notes Date/Time Note Provider Source 2023-11-22 15:45:00 Age: [age] year old GA: 25w0d Doing well. Factor 5 Leiden mutation, heterozygous - dx following son with stroke, the child was homozygous - No personal history of DVT - Prescribed lovenox "one shot per day" during second full term in 2016 and in 2022 - She does not take daily anticoagulation outside of -on prophylactic Lovenox History of Drug use Suboxone maintenance treatment -patient is seeing provider once a month - on suboxone 8/2 mg sublingual film Rh neg - will need Rhogam at 28 wks unless clinically indicated otherwise Anemia - on iron HSV II IgG positive -Denies history of oral or genital herpes -Prodromal symptoms of lesions discussed -Suppression at 36 weeks unless clinically indicated otherwise Anatomy scan on 11/02/2023:The biometry was consistent with the dates provided. No obvious abnormalities noted. -->> follow-up scheduled for 11/30/23 28-week labs and serologies ordered Next visit in 4 week for PN with CLINICAL APPLICATIONS MANAGER Follow-up in 6 wks for PN with Paula [facility] 2023-10-19 12:05:21 Informed pt to come in for nurse visit to leave urine cx per Dr. Paula. Appt made for today, pt verbalized understanding. [facility] 2023-10-18 12:25:00 Pt stated she went to [facility] on 10/08 for vomiting and was told she still had a UTI. Pt was given IV ABX but was told she would be getting a rx for oral ABX. [facility] never sent RX to pt's pharmacy. Pt states she is currently asymptomatic. Pt did finish the Macrobid that Dr. Paula sent back on 09/25/23 for UTI. Advised pt to let me speak with Dr. Paula and see if she would like her to just come in for nurse visit to do a urine cx to make sure UTI has cleared, or if she has other recommendations. Pt verbalized understanding. Please advise. [facility] 2023-10-17 15:09:51 Attempted to contact pharmacy. Line is busy after being transferred. Attempted to contact patient, unable to leave VM. Oneil Hutton RN 10/17/2023 3:10 PM Oneil Hutton RN [facility] 2023-10-17 14:57:14 Pt says she was diagnosed with uti by [facility] and antibiotic was suppose to be called in but wasn't, she wants Dr Paula to call it in says we got her results. Kesha Slade [facility] 2023-10-12 14:45:00 Age: [age] year old GA: 19w1d Doing well. Patient states that she was seen at ER and diagnosed with UTI. 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 Patient needs a refill on Reglan and prophylactic Lovenox. States that if she does not take Reglan at night, she will wake up vomiting. Discussed avoid heartburn foods/triggers. Factor 5 Leiden mutation, heterozygous - dx following son with stroke, the child was homozygous - No personal history of DVT - Prescribed lovenox "one shot per day" during second full term in 2016 and in 2022 - She does not take daily anticoagulation outside of -on prophylactic Lovenox History of Drug use Suboxone maintenance treatment -patient is seeing provider once a month - on suboxone 8/2 mg sublingual film Rh neg - will need Rhogam at 28 wks unless clinically indicated otherwise Anemia - on iron HSV II IgG positive - will discuss that at next visit New OB labs wnl otherwise Panorama low risk male Horizon neg MsAFP neg Next visit in 4 week for PN with CLINICAL APPLICATIONS MANAGER Follow-up in 8 wks for PN with Paula [facility] 2023-09-25 11:30:00 Given 50gm fruit punch glucola. Finished at 1139. [facility] 2023-09-25 11:30:00 Images from the original note were not included. Venipuncture collection performed by clean technique on the left anticubitus. Total of 1 attempts were made. Slight pressure and a bandage/dressing were applied to the site(s). The patient experienced no complications. The following specimens were processed according to instructions and sent to [facility] laboratories per lab order on 09/25/2023 : LT BLUE SST 1 RED LAV 2 PPT DK GREEN (LiHep) DK GREEN (SodH) DUCKWORTH DK BLUE (K2) DK BLUE (S) ACD Blood Culture NIPT/NTD T [facility] 2023-09-21 16:15:00 Images from the original note were not included. Patient gave permission to stick more that twice. Unable to collect some test an will be back to for the rest. Venipuncture collection performed by clean technique on the both forearm(s) and both hand. Total of 5 attempts were made. Slight pressure and a bandage/dressing were applied to the site(s). The patient experienced no complications. The following specimens were processed according to instructions and sent to [facility] laboratories per lab order on 09/21/2023 : LT BLUE 4 SST 1 RED LAV PPT DK GREEN (LiHep) DK GREEN (SodH) DUCKWORTH DK BLUE (K2) DK BLUE (S) ACD Blood Culture NIPT/NTD Patient has been identified by and name and was provided with cup, antiseptic towelette, and clean catch instructions. 2 urine specimen(s) sent. 2 Unpreserved Urine Culture Aptima tube Other urine T [facility] 2023-09-14 15:00:00 Age: [age] year old GA: 15w1d Doing well Factor 5 Leiden mutation, heterozygous - dx following son with stroke, the child was homozygous - No personal history of DVT - Prescribed lovenox "one shot per day" during second full term in 2016 and in 2022 - She does not take daily anticoagulation outside of -on prophylactic Lovenox History of Drug use Suboxone maintenance treatment -patient is seeing provider once a month - on suboxone 8/2 mg sublingual film New OB labs not completed yet. Will do it this weekend Next visit in 4 week T [facility] 2023-09-06 16:04:11 [place] results received via fax. Panorama- low risk, female Horizon- negative for 14 out of 14 diseases Spoke with patient, name and verified. Patient informed of results including gender. Results signed, will scan and upload a copy to [facility]. Bev Gil RN 09/06/2023 4:04 PM [facility] 2023-09-05 16:03:03 Attempted to contact patient by phone to provide test results, no answer, message left on voicemail to call back. Bev Gil RN 09/05/2023 4:03 PM [facility] 2023-09-03 19:34:20 Pt given printed and verbal discharge paperwork Pt awake alert oriented, resp reg unlabored, skin w/d, color appropriate for race, moves all ext well,pt encouraged to follow up with OB Advised to seek medical attention for new/prolonged/worsening of symptoms Awake, alert oriented, resp reg unlabored, skin w/d, pt leaving amb with steady gait, in no apparent distress Марина Soria RN [facility] 2023-09-03 19:15:17 Pt arrived ambulatory without assist. Pt states " When I went number two I saw things in the toilet and when I looked it up online it said it could have been a parasite from eating under cooker food. I am having pain in stomach." No bleeding, cramping, vaginal discharge. 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 Paula here at [facility]. She is compliant with her vitamins. No recent trips or travel. No bad food exposure. No sick contacts. Here for evaluation. Past Medical History/Immunizations: Past Medical History: Diagnosis Date Anemia of mother in , antepartum 02/14/2023 Endometriosis determined by laparoscopy Factor 5 Leiden mutation, heterozygous lovenx during Late menses 11/12/2021 Narcolepsy 1997 d/cd meds Pap smear abnormality of cervix Screening examination for STD (sexually transmitted disease) 11/12/2021 Suboxone maintenance treatment complicating , antepartum 02/22/2022 Tetanus received in last 5 years: Yes Allergies: Allergies Allergen Reactions Amoxicillin Itching Past Social History: Tobacco Use Former; Cigarettes: 2008 - 2021; Smoked an average of 0.5 packs/day for 13.0 years Smokeless Tobacco: Never used smokeless tobacco. Vaping Use Every day; Substances: Nicotine, Flavoring; Devices: Disposable Alcohol Use Never. Drug Use Never. Sexual Activity Sexually active; Partners: Male; Control/Protection: None. Comments: last intercourse: 06/05/2022 Past Surgical History: Past Surgical History: Procedure Laterality Date COLONOSCOPY CONIZATION CERVIX,LOOP ELECTRD LAP,SALPINGOSTOMY UPPER GI ENDOSCOPY Review of Systems: Review of Systems Constitutional: Negative for chills and fever. Respiratory: Negative for cough and shortness of breath. Cardiovascular: Negative for chest pain. Gastrointestinal: Negative for abdominal pain, nausea and vomiting. Genitourinary: Negative for dysuria. Musculoskeletal: Negative for arthralgias, neck pain and neck stiffness. Skin: Negative for wound. Neurological: Negative for dizziness. Psychiatric/Behavioral: Negative for agitation. Physical Exam: ED Triage Vitals [09/03/231917] Weight 79.4 kg (175 lb) Actual or estimated Estimated by patient/family report Height 1.626 m (5' 4") BP 129/78 Pulse 84 Resp 18 Temp 36.8 ?C (98.2 ?F) Temp source Oral SpO2 100 % Measured on Physical Exam Radiology: No orders to display Lab Results: Lab Results - No data to display EKG: If EKG completed, see Procedure Note. Orders and Treatments: No orders of the defined types were placed in this encounter. No orders of the defined types were placed in this encounter. First Provider Eval: ED Events None ED COURSE Diagnosis/Impression as of 09/03/231929 Worried well Procedures: Procedures Limited Transabdominal Ultrasound Indications: , abdominal pain and/or bleeding Findings: SIUP with EGA 13 weeks 1 days and FHT 158 bpm. No free fluid. Adnexa not visualized. Interpretation: SIUP MDM: Medical Decision Making The patient presents from home for evaluation for [...] 4 para 3-0-0-3. No vaginal bleeding or discharge. Vital signs are stable in the ER. Her abdomen is soft and nontender. A limited bedside transabdominal ultrasound shows single intrauterine of approximately 13 weeks and 1 day gestation with heart rate of 158. She remained stable here in the ER and is okay for discharge home with PCP follow-up. Problems Addressed: Worried well: acute illness or injury Risk OTC drugs. Flowsheet Documentation: Scoring Tools: No data recorded Disposition/Condition: ED Disposition ED Disposition Disch - Home Condition Stable Comment -- Discharge Medications: Patient's Medications START taking these medications No medications on file CONTINUE taking these medications which have NOT CHANGED BUPRENORPHINE-NALOXONE 8-[address] 1 FILM UNDERNEATH TONGUE EVERY DAY. ALLOW TO DISSOLVE SLOWLY IN MOUTH WITHOUT CHEWING OR SWALLOWING DOXYLAMINE-PYRIDOXINE, VIT B6, (DICLEGIS) 10-10 MG PER TABLET 1 tab@HS.If not effective,2 tab@HS.If not effective,2 tab@HS&1 tab in AM.If not effective,2@HS,1 in AM,&1 in early PM. Max: 4 tab/day. ENOXAPARIN 40 MG/0.4 ML INJECTION inject 0.4 mL under the skin every 24 (twenty-four) hours for 30 days. METHYLPHENIDATE HCL 5 MG TABLET Take 5 mg by mouth in the morning and 5 mg at noon and 5 mg in the evening. METOCLOPRAMIDE HCL 10 MG TABLET Take 1 tablet by mouth every 6 (six) hours as needed for Nausea and Vomiting (N/V). PNV 67-IRON PS-FOLATE NO.1-DHA (VITAFOL ULTRA) 29 MG IRON- 1 MG-200 MG CAP Take 1 capsule by mouth in the morning. START taking Modified Medications as Prescribed No medications on file STOP taking these medications No medications on file Follow-up: Electronically signed by: Nadeen Davis DO 09/03/230 [facility] 2023-09-03 12:06:04 Per provider, patient to go to urgent care or pcp to be evaluated. Patient notified, does not have pcp, going to urgent care. Bev Gil RN 09/03/2023 12:06 PM [facility] 2023-09-03 11:56:46 Spoke with patient, states that she went to restroom, had BM, noticed in toilet what looked to be like a small parasite. Patient states it was small and looked like a shrimp, had legs. Patient is concerned. Denies any symptoms currently. Patient would like to be seen for piece of mind. Appt scheduled. Bev Gil RN 09/03/2023 12:00 PM [facility] 2023-08-24 09:45:00 Sydney kit TRK # [id number] Mary Kay Videsnhill [facility] 2023-08-24 09:45:00 Collecting Sydney kit only today T [facility] [employer] 2023-08-17 10:00:00 Age: [age] year old GA: 11w1d by Patient's last menstrual period was 05/31/2023 (approximate). Nausea without vomiting -Reports taking doxylamine with relief -Diclegis/Reglan ordered -Avoid triggers Patient currently pumping every 3-4 hours. Advised to start weaning. Factor 5 Leiden mutation, heterozygous - dx following son with stroke, the child was homozygous - No personal history of DVT - Prescribed lovenox "one shot per day" during second full term in 2016 and in 2022 - She does not take daily anticoagulation outside of -Prophylactic Lovenox prescribed History of Drug use Suboxone maintenance treatment -Will discuss at next visit Transabdominal USG for FHT: Single live IUP measured 10 1/7 weeks, consistent with LMP. Will date by Patient's last menstrual period was 05/31/2023 (approximate). unless clinically indicated otherwise New OB labs today. No complaints. Discussed do's and don'ts of , safe foods, safe medications. Reviewed Zika virus precautions. I discussed the call schedule and that I might not be the physician delivering her. I discussed I deliver my patients at [facility]. Expectations for weight gain this include 11-20 pounds. Encouraged to call if have any additional questions or concerns. Discussed aneuploidy and carrier screening; patient opts for panorama/Horizon. Have received 2 doses of COVID vaccines. Had flu vaccines Discussed about COVID-19/flu precautions. Social distancing, frequent hand washings, wearing face mask, signs/symptoms for testing and to follow CDC recommendations discussed. Discussed with patient that she can have HEALTHY support with her during her delivery (which is subject to change depends on the COVID pandemic) Next visit in 4 week [facility] 2023-04-18 13:47:36 Brooke Thomas is a 33 year old female Patient called to reschedule BTL consult with PGY Please contact pt at Telephone Information: ICAL TESTING SUPERVISOR Jagruti Saravia [facility] 2023-03-14 09:28:37 Spoke with patient and let her know that she had to get forms from her employer for provider to fill out. ICAL TESTING SUPERVISOR Gagan Meza [facility] 2023-03-01 14:17:09 Spoke with patient and she was given the status of the pre-certification. ICAL TESTING SUPERVISOR Gagan Meza [facility] 2022-12-12 14:10:33 Formatting of this n ote might be different from the original. Noted. Lilian Quinonez LVN [facility] 2022-12-12 13:56:02 Formatting of this n ote might be different from the original. Patient in clinic for USG stating that she has been in the ER for vomiting all night; states that she just wants to feel better. Scheduled patient to be seen today at 2:00 with provider. Gagan Meza [facility] 2022-11-17 12:52:37 Formatting of this n ote might be different from the original. Notified patient of low risk NIPT results. No further questions or testing desired at this time. Results released to patient via W-21 portal. Amber Rey [facility] 2022-11-10 13:35:01 Formatting of this n ote might be different from the original. Pt in clinic for labs, discussed problem list with patient. Pt was seen by genetic counselor and reports all questions answered. Verbalized understanding. Lorna Tucker RN 11/10/22 1:35 PM T [facility] 2022-11-10 11:43:08 Formatting of this n ote might be different from the original. Suboxone maintenance treatment complicating , antepartum That was put on her problem list by amena betancourt her pcp. Is she not on suboxone treatment anymore? If not I can put a comment on her problem. What labs does she have question about? CAROLYNE Mueller 11/10/2022 11:44 AM [facility] 2022-11-10 10:04:57 Formatting of this n ote might be different from the original. Called pt x 2. No answer. No vm box set up. Lorna Tucker RN 11/10/22 10:05 AM [facility] 2022-11-10 08:50:02 Formatting of this n ote might be different from the original. Pt requesting call back, states she was looking through her MyChart results and would like clarification. Please call [phone]. Clarisa Najera [facility] 2022-11-07 15:53:06 Formatting of this n ote might be different from the original. Called pt, pt asking if quad screen wnl, advised no quad screen drawn. Advised pt she is out of the gestational window for quad screen. Pt has genetics appt on 11/10/2022, advised pt to keep appt to discuss genetic lab options outside of the quad screen. Pt verbalized understanding. Lorna Tucker RN 11/07/22 3:54 PM [facility] 2022-11-07 15:35:55 Formatting of this n ote might be different from the original. Brooke Thomas is a 32 year old female Pt is calling wanting to know if genetic testing is normal or if there is something wrong. Please contact pt. Silva Coleman [facility] 2021-02-20 07:25:00 [facility] ([facility] [facility]) EMERGENCY PROVIDER REPORT REPORT#:[id number] REPORT STATUS: Signed DATE:02/20/21 TIME: 724 PATIENT: BROOKE THOMAS UNIT #: [id number] ROOM/BED: AGE: 30 SEX: F PCP PHYS: No Primary or Family Physician SERVICE AUTHOR: Indira Tyler * ALL edits or amendments must be made on the electronic/computer document * Indira Tyler 02/20/21 0725: HPI-Abd Pain F Under 40 General Confirmed Patient Yes Patient Type New patient Initial Greet Date/Time 02/20/21711 Assumed Care at Time 725 Date 02/20/21 PCP None Presentation Chief Complaint Diarrhea mild, Flank pain R, Flank pain L, Nausea, Vomiting moderate Hx Obtained From Patient Sudden in Onset? No Onset Occurred Yesterday Symptom Duration Constant Progression since Onset Constant, Gradually worsening Location Flank right, Flank left Quality Stabbing Radiation Abdomen lower. Migration/Movement None Severity: Current Pain level 6 out of 10 Associated with Reports: Chills, Nausea, Urinary frequency, Vomiting. Denies: Chest pain, Constipation, Diarrhea, Dysuria, Fever, Hematemesis, Hematochezia, Hematuria, Melena, Shortness of breath, Urinary retention, Urinary tract symptoms, Vaginal bleeding, Vaginal discharge. Associated Other Pt denies other symptoms Exacerbated by Nothing Relieved by Nothing Context Related History Reports: Urolithiasis. Denies: Cholecystitis, Cholelithiasis, Current , GERD, Ureterolithiasis, Urinary tract infection. Immunization Status General Unknown Recent Healthcare No recent doctor visit, No recent hospitalization Similar Sx Previous Yes /Sexual Hx [...] the pain is constant, associated with chills, /10 at this time, the pain gets worse when she is having vomiting episodes. She denies any blood in her stool, fevers, UTI symptoms, pelvic pain, vaginal discharge, vaginal bleeding. Risk-Abd Pain F Under 40 [...] Denies: Fever. Respiratory Denies: Cough, non-productive, Cough, productive, Dyspnea on exertion, Hemoptysis, Parox nocturnal dyspnea, Pleuritic pain, Shortness of breath, Wheezing. Cardiovascular Denies: Chest pain, Dyspnea on exertion, Edema, Orthopnea, Palpitations, Parox nocturnal dyspnea, Syncope. GI Reports: Abdominal pain, Diarrhea, Nausea, Vomiting. Denies: Constipation, Dysphagia, Hematemesis, Hematochezia, Mucousy stool, Melena. Female Denies: Dysuria, Flank pain, Hematuria, Incontinence, Nocturia, Pelvic pain, , Urinary frequency, Urinary urgency, Urination decreased, Urination increased, Vaginal bleeding - abnl, Vaginal discharge. Musculoskeletal Denies: Back pain. Past Medical History - Adult Stated Complaint ABDOMINAL PAIN Allergies Coded Allergies: Penicillins (Intermediate, RASH 02/20/21) Calculated Suicide Risk (nurs) No risk Review of Nursing Notes Unavailable at this time Past Medical History: Reports: Depression/mood disorder, Kidney disease/stones. Additional Surgical History none Drug Use Marijuana [...] No rales, No rhonchi, No wheezing, No retractions Cardiovascular Cardiovascular Regular rhythm, Heart sounds NL, No murmurs, Cap refill not delayed Heart Rate/Rhythm Tachycardia. Abdomen/GI Abdomen/GI Soft Tenderness/Guarding/Rebound Tender diffuse, Tender flank R, Tender flank L. MS Back Back Inspection NL, Painless range of motion, No midline vertebral tend Flank/Spine/Paraspinal Flank tender bilateral. Skin Skin Color NL, No rash, Warm, Dry, Intact, Turgor NL, No swelling Neurologic Neurologic Oriented X3, Speech NL, No motor deficits, Gait NL Interpretation Diagnostics Lab Results Interpretation Considerations Independ review imaging Results Laboratory Tests 02/20/21735: [Embedded Image Not Available] Laboratory Tests: 02/20 0736 Chemistry Sodium (133 - 144 mmol/L) [...] - 8.0 pH UNITS) 6.5 Ur Specific [place] (1.001 - 1.035 SG) 1.026 Urine Protein [...] MD ULTRASOUND - US TRANSVAGINAL NON OB 02/21 0851 Report Impression - Status: SIGNED Entered: 02/20/2021 0935 IMPRESSION: 1. No focal uterine masses. IUD in place in the endometrium. 2. No adnexal masses. 2.2 cm dominant left ovarian follicle, otherwise unremarkable ovaries. Impression By: [email or web address] - Antonino Miranda MD Lab Imaging Statement Laboratory radiographic studies reviewed and considered in the medical decision-making. Point of Care Testing Urinalysis Interpretation Urinalysis NL Pulse Oximetry Pulse Ox % 100 On: Room air Interpretation Interpreted by me, Pulse oximetry normal Time 0726 Lab Studies CBC Interpretation CBC normal except, WBC elevated BMP/CMP Interpretation BMP/CMP NL Re-Evaluation MDM )( Re-Evaluation/Progress #1 Text/Dict Note Patient's WBC is elevated, UA is negative for UTI will start secondary sepsis work-up. Discussed this with the patient, awaiting for rest of her labs and a CAT scan to be done. Time of Re-Eval 0802 )( Re-Eval Status Unchanged Plan Post Re-Eval Additional diag testing Re-Evaluation/Progress #2 Text/Dict Note The patient is sleeping in the room, woke her up, she reports that her pain has resolved after she got the medications in the ER. Discussed with her electrolytes are within normal limits, lipase is normal, liver enzymes are within normal limits. Discussed with her her CT scan without any acute findings other than a left ovarian cyst, will proceed and do transvaginal ultrasound. At this point the patient reports that [...] CBC revealed elevated WBC count, electrolytes are within normal limits, UA was negative for UTI other than turbid urine. UPT was negative. Lactic acid was 2.1 but she has received fluids in the ER. As the patient does have vomiting will discharge on Zofran, and will discharge on Flagyl for her tract diarrhea, advised to hydrate herself to avoid dehydration. She is advised to follow-up with [facility] as she does not have a primary care physician, discussed the CT scan results which was without any acute findings of any cholelithiasis, cholecystitis, diverticulitis, appendicitis, bowel obstruction. Her lipase was normal, and hepatic function was normal. She will be discharged on antibiotics, dicyclomine, and Zofran. She is advised to follow-up with [facility], strict return precautions were given to return for worsening symptoms she is comfortable with the plan of discharge verbalized understanding when to return. Time of Eval 1010 Re-Eval Status Resolved (pain) Eval Following Treatment Pt. feels better, Condition improved, Tolerate liquids, no N/V Pain Re-Evaluation Denies pain Exam Post Tx - General Active, Alert, Vital signs stable Exam Post Tx - Sys Review Abdomen soft, Abdomen nontender Plan Post Re-Eval Plan discharge Abd Pain MDM Note F < 40 The patient is resting comfortably and feels better, [...] as indicated in the discharge instructions. ED Course Medication(s) [...] 02/20 IV 07 Patient Discharge Departure Vital Signs/Condition Vital Signs [...] entry have been reviewed. Condition Stable Clinical Impression Clinical Impression Primary Impression: Abdominal pain Secondary Impressions: Diarrhea, UTI (urinary tract infection), Vomiting Time of Impression 1010 Disposition Decision Discharge )( Discharged to Home Yes )( Time 1010 )( Date 02/20/21 Discharge/Care Plan Counseled Regarding Diagnosis, Lab results, Imaging studies, Prescriptions, Need for [...] #21 TABS Prescriptions Reviewed Risks, Benefits, Alternative treatment Patient Instructions Abdominal Pain, ED Diarrhea, Unknown Cause, ED Ovarian Cyst , ED Vomiting (Adult) Additional Instructions Hydrate yourself well, take the medications as advised. Stay on a liquid diet for the next 24 hours and then advance as tolerated avoid fried and greasy foods. Follow-up with [facility]. Return for worsening symptoms. 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 I have explained the patient's condition, diagnoses and treatment plan based on the [...] of care and follow-up instructions have been explained [...] Quality Measures Preg Test for Women w/Abd Pain Female age 14-50, Complaint of abdominal pn, Any preg test ordered Free Text Depart Notes Free Text Depart Notes Strict return precautions are given. Praveen Lizarraga 02/28/21 0915: Patient Discharge Departure Supervising Physician Note MidLv Saw Pt Alone I have reviewed the PA/CLINICAL APPLICATIONS MANAGER's note and plan of care. I was available for consultation as needed at all times during the patient's visit in the emergency department. I agree with the clinical impression, plan and disposition. at 1457 at 0915 RPT #:[id number] END OF REPORT [facility] 2018-06-06 18:02:00 [facility] ([facility]) EMERGENCY PROVIDER REPORT REPORT#:[id number] REPORT STATUS: Signed DATE:06/06/18 TIME: 180 PATIENT: BROOKE SYKES UNIT #: [id number] ROOM/BED: AGE: 28 SEX: F PCP PHYS: No Primary or Family Physician SERVICE AUTHOR: Swapnil Gonzalez NP * ALL edits or amendments must be made on the electronic/computer document * HPI-Trauma Minor/Fall General Confirmed Patient [...] of 10 Associated with Denies: Abdominal pain, Chest pain, Loss of consciousness, Shortness of breath. Exacerbated by Movement, Palpation Relieved by Nothing Context Immunization Status General Unknown Recent Healthcare No recent doctor visit, No recent hospitalization Similar Sx Previous No /Sexual Hx [...] Patient denies . Risk-Trauma Minor/Fall Risk Stratification Smith Coma Score > Age 5 Elena Coma [...] Denies: Ear drainage bilat, Ear ringing bilat, Earache bilat, Hearing loss bilat. Respiratory Denies: Cough, non-productive, Cough, productive, Shortness of breath. Musculoskeletal Reports: Extremity pain. Denies: Myalgia, Neck pain. Skin Denies: Rash. Neurologic Denies: Bladder dysfunction, Bowel dysfunction, Syncope. Past Medical History - Adult Stated Complaint fell on elbow Allergies Coded Allergies: Coconut (Severe, THROAT SWELLS 09/24/17) Home Medications Active Scripts HYDROcodone/APAP (VICODIN 5/300) 1 TAB PO Q4H PRN PRN ABDOMINAL CRAMPS/PAIN MDD 6 HYDROcodone/APAP (VICODIN 5/300) 1 TAB PO Q4H PRN PRN ABDOMINAL CRAMPS/PAIN MDD 6#30 TABS Prov: [...] PO Q6H PRN PRN PAIN Additional Medical History endometriosis Past Surgical History: [...] 84 06/06 1715 Resp 18 06/06 1714 Last Documented: Result Date Time Pulse Ox 100 06/06 1715 B/P 137/81 06/06 1715 B/P Mean 99 06/06 171 O2 Delivery Room air 06/06 1714 Temp 36.7 06/06 171 Pulse 84 06/06 1715 Resp 18 06/06 1714 Review of Vital Signs Reviewed Focused PE General/Const General/Const Awake, Alert, No acute distress, Well developed, Well hydrated, Well nourished, Cooperative, Not toxic appearing Appearance/Presentation Uncomfortable. MS Head Head Atraumatic, Normocephalic Eyes Eyes Atraumatic, PERRL, EOMI, No nystagmus Ears/Nose/Throat Ears/Nose/Throat Atraumatic, Airway patent, Mucous membranes moist MS Neck Neck Atraumatic, Supple, No meningismus, Full range of motion, No midline vertebral tend Resp/Chest Respiratory/Chest Atraumatic, Breath sounds NL, Breath sounds = bilat, No respiratory distress Cardiovascular Cardiovascular Heart rate NL, Regular rhythm, Heart sounds NL, Cap refill not delayed, [...] MS Ankle/Foot Ankle/Foot Atraumatic, Inspection NL, Full range of motion Skin Skin Atraumatic, Color NL, No rash, Warm, Dry, Intact, Turgor NL, No swelling Neurologic [...] Notes Patient's arm placed in sling. Discussed diagnostic results with patient. Patient to be discharged with prescription for pain medicine. Patient given return precautions. Patient agrees to plan. ED Course Medication(s) Ordered Medication(s) Ordered: Central Nervous System Agents Sig/Maryanne Start time Last Medication Dose Route Stop Time Status Admin Hydrocodone Bitart/ 1 TAB X1ED STA 06/06 1800 DC 06/06 Acetaminophen PO 06/06 1801 181 Patient [...] Room air 06/06 171 Temp 36.7 06/06 1715 Pulse 84 06/06 1715 Resp 18 06/06 171 All vital signs available at the time of this entry have been reviewed. Condition Stable Clinical Impression Clinical Impression Primary Impression: Fall Secondary Impressions: Arm pain Disposition Decision Discharge )( Discharged to Home Yes )( Time 191 )( Date 06/06/18 Discharge/Care Plan Counseled Regarding Diagnosis, Imaging studies, Prescriptions, Need for follow- up, When to return to ED Prescriptions t3, ibuprofen Prescriptions Reviewed Risks, Benefits, Alternative treatment Discharge Note I have spoken with the patient and/or caregivers. I have explained the patient's condition, diagnoses and treatment plan based on the [...] of care and follow-up instructions have been explained in detail. The patient and/or caregivers have received these instructions in written format and have expressed an understanding of the discharge instructions. The patient and/or caregivers are aware that any significant change in condition or worsening of symptoms should prompt an immediate return to this or the closest emergency department or a call to 911. at 1912 RPT #:[id number] END OF REPORT [facility] 2018-06-06 18:02:00 [facility] ([facility]) EMERGENCY PROVIDER REPORT REPORT#:[id number] REPORT STATUS: Signed DATE:06/06/18 TIME: 1801 PATIENT: BROOKE SYKES UNIT #: [id number] ROOM/BED: AGE: 28 SEX: F PCP PHYS: No Primary or Family Physician SERVICE AUTHOR: Swapnil Gonzalez NP * ALL edits or amendments must be made on the electronic/computer document * Swapnil Gonzalez 06/06/181801: HPI-Trauma Minor/Fall [...] of 10 Associated with Denies: Abdominal pain, Chest pain, Loss of consciousness, Shortness of breath. Exacerbated by Movement, Palpation Relieved by Nothing Context Immunization Status General Unknown Recent Healthcare No recent doctor visit, No recent hospitalization Similar Sx Previous No /Sexual Hx [...] Patient denies . Risk-Trauma Minor/Fall Risk Stratification Smith Coma Score > Age 5 Smith Coma Score > Age 5 Response Value [...] Denies: Ear drainage bilat, Ear ringing bilat, Earache bilat, Hearing loss bilat. Respiratory Denies: Cough, non-productive, Cough, productive, Shortness of breath. Musculoskeletal Reports: Extremity pain. Denies: Myalgia, Neck pain. Skin Denies: Rash. Neurologic Denies: Bladder dysfunction, Bowel dysfunction, Syncope. Past Medical History - Adult Stated Complaint fell on elbow Allergies Coded Allergies: Coconut (Severe, THROAT SWELLS 09/24/17) Home Medications Active Scripts HYDROcodone/APAP (VICODIN 5/300) 1 TAB PO Q4H PRN PRN ABDOMINAL CRAMPS/PAIN MDD 6 HYDROcodone/APAP (VICODIN 5/300) 1 TAB PO Q4H PRN PRN ABDOMINAL CRAMPS/PAIN MDD 6#30 TABS Prov: [...] PO Q6H PRN PRN PAIN Additional Medical History endometriosis Past Surgical History: [...] PE General/Const General/Const Awake, Alert, No acute distress, Well developed, Well hydrated, Well nourished, Cooperative, Not toxic appearing Appearance/Presentation Uncomfortable. MS Head Head Atraumatic, Normocephalic Eyes Eyes Atraumatic, PERRL, EOMI, No nystagmus Ears/Nose/Throat Ears/Nose/Throat Atraumatic, Airway patent, Mucous membranes moist MS Neck Neck Atraumatic, Supple, No meningismus, Full range of motion, No midline vertebral tend Resp/Chest Respiratory/Chest Atraumatic, Breath sounds NL, Breath sounds = bilat, No respiratory distress Cardiovascular Cardiovascular Heart rate NL, Regular rhythm, Heart sounds NL, Cap refill not delayed, [...] MS Ankle/Foot Ankle/Foot Atraumatic, Inspection NL, Full range of motion Skin Skin Atraumatic, Color NL, No rash, Warm, Dry, Intact, Turgor NL, No swelling Neurologic Neurologic Oriented X3, Speech NL, No motor deficits, No sensory deficits, Cerebellar NL, Memory NL, Gait NL Interpretation Diagnostics Lab Results Interpretation Results Recent Impressions: RADIOLOGY - XR HAND 3 + V LT 06/06 1813 Report Impression - Status: SIGNED Entered: 06/06/2018 1857 IMPRESSION: No acute osseous abnormality is identified. Impression By: Oliver Cardenas MD RADIOLOGY - XR WRIST 3 + V LT 06/06 1813 Report Impression - Status: SIGNED Entered: 06/06/2018 1857 IMPRESSION: No acute osseous abnormality is identified. [...] Notes Patient's arm placed in sling. Discussed diagnostic results [...] Pulse Ox 100 06/06 1715 B/P 137/81 02/21 1715 B/P Mean 99 06/06 1714 O2 [...] entry have been reviewed. Condition Stable Clinical Impression Clinical Impression Primary Impression: Fall Secondary Impressions: Arm pain Disposition Decision Discharge )( Discharged to Home Yes )( Time 1911 )( Date 06/06/18 Discharge/Care Plan Counseled Regarding Diagnosis, Imaging studies, Prescriptions, Need for follow- up, When to return to ED Prescriptions t3, ibuprofen Prescriptions Reviewed Risks, Benefits, Alternative treatment Discharge Note I have spoken with the patient and/or caregivers. I have explained the patient's condition, diagnoses and treatment plan based on the [...] of care and follow-up instructions have been explained [...] a call to 911. Ortega Loera 06/07/18 0134: HPI-Trauma Minor/Fall General Initial Greet Date/Time 06/06/181716 Physical Exam Vital Signs Vital Signs Interpretation Diagnostics Lab Results Interpretation Results Re-Evaluation MDM ED Course Medication(s) Ordered Patient Discharge Departure Vital Signs/Condition Vital Signs Supervising Physician Note MidLv Saw Pt Alone I have reviewed the PA/CLINICAL APPLICATIONS MANAGER's note and plan of care. I was available for consultation as needed at all times during the patient's visit in the emergency department. I agree with the clinical impression, plan and disposition. at 1042 at 1985 RPT #:[id number] END OF REPORT [facility]
[2023-12-06] MEDS ORDERED: NA CHLORIDE 0.9% 1,000 ML ONE (03:11)
[2023-12-06 03:44] LABS: D-Dimer 0.745 FEUug/mL (0-0.500); PT Prothrombin Time 10.5 SECONDS (9.4-12.5); Protime INR 0.94
[2023-12-06 03:45] LABS: Absolute Eosinophils 0.2 K/uL (0-0.5); Absolute Monocytes 0.8 K/uL (0.1-1.3); Absolute Neutrophil 8.3 K/uL (1.8-8.0); Basophils % 0.2 % (0-1.3); Eosinophils % 1.5 % (0-4.4); Hematocrit 28.5 % (36.0-45.0); Hemoglobin 10.3 g/dL (12.0-15.0); Lymphocytes % 9.5 % (15.3-44.8); MCH 33.6 pg (27.0-35.0); MCHC 36.1 g/dL (32.0-36.0); MCV 92.9 fL (80-100); MPV 6.9 fL (7.6-11.3); Monocytes % 8.2 % (3.3-12.3); Neutrophils % 80.6 % (41.7-73.7); Nucleated Red Blood Cells % 0.1 % (0-0); Platelets 254 thou/uL (152-406); RBC Red Blood Cell Count 3.07 M/uL (3.86-4.86)
[2023-12-06 04:09] LABS: ALT/SGPT 19 U/L (13-56); AST/SGOT 18 U/L (15-37); Albumin 2.7 g/dL (3.4-5.0); Albumin/Globulin Ratio 0.7 (1.1-1.8); Alkaline Phosphatase 81 U/L (45-117); Anion Gap 10.5 mEq/L (5.0-15.0); BUN Blood Urea Nitrogen 9 mg/dL (7-18); Bicarbonate 23 mEq/L (21-32); Bilirubin Total 0.3 mg/dL (0.2-1.0); Globulin 3.8 g/dL (2.3-3.5); Glomerular Filtration Rate 130 ml/min (=/>90); Glucose Level 107 mg/dL (74-106); Magnesium 1.6 mg/dL (1.6-2.4); NT PRO-BNP 8 pg/mL (<125); Potassium 3.5 mEq/L (3.5-5.1); Protein, Total 6.5 g/dL (6.4-8.2); Sodium Level 138 mEq/L (136-145)
[2023-12-06 04:10] LABS: Bilirubin Direct < 0.2 mg/dL (0-0.2); Bilirubin Indirect, Calculated 0.1 mg/dL (0.2-0.8); Troponin High Sensitivity < 3.0 pg/mL (<58.9)
--- NOTE | 2023-12-06 05:41 | ER ---
Nurse's Notes [facility] Name: Brooke Thomas Age: 33 yrs Sex: Female : 1990 Arrival Date: 12/06/2023 Time: 02:01 Bed 6 Private MD: Diagnosis: 27 weeks gestation of ;Dyspnea;Anxiety disorder, unspecified;Pneumonia due to other specified bacteria;Gastro-esophageal reflux disease with esophagitis Presentation: 12/05 02:18 Chief complaint: Patient states: [place] like the sides of my tongue was swelling, while I vc1 was laying down I couldn't catch my breath. Coronavirus screen: Vaccine status: Patient reports receiving the 2nd dose of the covid vaccine. Client denies travel out of the [place] in the last 14 days. At this time, the client does not indicate any symptoms associated with coronavirus-19. Ebola Screen: Patient negative for fever greater than or equal to 101.5 degrees Fahrenheit, and additional compatible Ebola Virus Disease symptoms Patient denies exposure to infectious person. Patient denies travel to an Ebola-affected area in the 21 days before illness onset. No symptoms or risks identified at this time. Initial Sepsis Screen: Does the patient meet any 2 criteria? No. Patient's initial sepsis screen is negative. Does the patient have a suspected source of infection? No. Patient's initial sepsis screen is negative. Risk Assessment: Do you want to hurt yourself or someone else? Patient reports no desire to harm self or others. Onset of symptoms was December 06, 2023. 02:18 Method Of Arrival: Ambulatory vc1 02:18 Acuity: ILA 3 vc1 Triage Assessment: 02:23 General: Appears in no apparent distress. uncomfortable, Behavior is calm, cooperative, vc1 appropriate for age. Pain: Denies pain. EENT: Reports sides of tongue swelling. Neuro: Level of Consciousness is awake, alert, obeys commands, Oriented to person, place, time, situation, Appropriate for age. Cardiovascular: Capillary refill < 3 seconds Patient's skin is warm and dry. Respiratory: Reports shortness of breath Airway is patent Respiratory effort is even, unlabored, Respiratory pattern is regular, symmetrical. Respiratory: the patient reports symptoms have resolved. GI: No deficits noted. No signs and/or symptoms were reported involving the gastrointestinal system. : No deficits noted. No signs and/or symptoms were reported regarding the genitourinary system. Derm: No deficits noted. No signs and/or symptoms reported regarding the dermatologic system. Musculoskeletal: No deficits noted. No signs and/or symptoms reported regarding the musculoskeletal system. 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 - Infectious Disease History:: Denies. - Social history:: Smoking status: Reported history of juuling and/or vaping. Screenin:[facility] ED Fall Risk Assessment (Adult) History of falling in the last 3 months, vc1 including since admission No falls in past 3 months (0 pts) Confusion or Disorientation No (0 pts) Intoxicated or Sedated No (0 pts) Impaired Gait No (0 pts) Mobility Assist Device Used No (0 pt) Altered Elimination No (0 pt) Score/Fall Risk Level 0 - 2 = Low Risk Oriented to surroundings, Maintained a safe environment, Educated pt \T\ family on fall prevention, incl call for assistance when getting out of bed. Abuse screen: Denies threats or abuse. Nutritional screening: No deficits noted. Tuberculosis screening: No symptoms or risk factors identified. Assessment: 02:49 General: Appears in no apparent distress. uncomfortable, Behavior is calm, cooperative, cp4 appropriate for age. Pain: Denies pain. Neuro: Level of Consciousness is awake, alert, obeys commands, Oriented to person, place, time, situation. Cardiovascular: No deficits noted. Respiratory: Reports shortness of breath at rest Airway is patent Respiratory effort is even, unlabored, Breath sounds are clear bilaterally. GI: No signs and/or symptoms were reported involving the gastrointestinal system. : No signs and/or symptoms were reported regarding the genitourinary system. EENT: No signs and/or symptoms were reported regarding the EENT system. Derm: No signs and/or symptoms reported regarding the dermatologic system. Musculoskeletal: No signs and/or symptoms reported regarding the musculoskeletal system. 03:30 Reassessment: Patient and/or family updated on plan of care and expected duration. Pain ha1 level reassessed. Patient is alert, oriented x 3, equal unlabored respirations, skin warm/dry/pink. 04:30 Reassessment: Patient and/or family updated on plan of care and expected duration. Pain ha1 level reassessed. Patient is alert, oriented x 3, equal unlabored respirations, skin warm/dry/pink. going to CT. 04:50 Reassessment: Patient and/or family updated on plan of care and expected duration. Pain ha1 level reassessed. Patient is alert, oriented x 3, equal unlabored respirations, skin warm/dry/pink. back from CT Patient states feeling better. Patient states symptoms have improved. Vital Signs: 02:18 BP 112 / 64; Pulse 88; Resp 18; Temp 98; Pulse Ox 97% ; Weight 86.18 kg; Height 5 ft. 4 vc1 in. ; Pain 0/10; 03:00 BP 105 / 62; Pulse 77; Resp 17 S; Pulse Ox 97% on R/A; ha1 04:00 BP 103 / 61; Pulse 70; Resp 18 S; Pulse Ox 100% ; ha1 05:00 BP 101 / 58; Pulse 75; Resp 19 S; Pulse Ox 99% on R/A; ha1 02:18 Body Mass Index 32.61 (86.18 kg, 162.56 cm) vc1 02:18 Pain Scale: Adult vc1 Vitals: 03:41 Heart Tones 133 BPM. vc1 ED Course: 02:06 Patient arrived in ED. gm2 02:12 Mark Panchal MD is Attending Physician. jeremy 02:21 Annabella Orta is Primary Nurse. cp4 02:21 Triage completed. vc1 02:22 Arm band placed on right wrist. vc1 02:25 Patient has correct armband on for positive identification. Bed in low position. Pulse vc1 ox on. NIBP on. 02:56 XRAY Chest (1 view) In Process Unspecified. EDMS 03:10 Missed attempt(s): 20 gauge in left antecubital area. Bleeding controlled, band aid ha1 applied, catheter tip intact. 03:20 No provider procedures requiring assistance completed. Initial lab(s) drawn, by christelle arrieta sent to lab. Inserted saline lock: 22 gauge in right antecubital area, using aseptic technique. Blood collected. Flushed with 10 mL NS Missed attempt(s): 22 gauge in left in right antecubital area. 03:51 US Extremity Venous W Compression Ezequiel In Process Unspecified. EDMS 05:00 CT Chest For PE Angio In Process Unspecified. EDMS 05:57 Provided Education on: following up with OB. medication administration . ha1 05:57 IV discontinued, intact, bleeding controlled, No redness/swelling at site. Pressure ha1 dressing applied. Administered Medications: 03:20 Drug: NS 0.9% IV 1000 ml IV at 1 bolus Per protocol; 1000 mL bolus Route: IV; Rate: 1 cp4 bolus; Site: right antecubital; 05:56 Follow up: Response: No adverse reaction; IV Status: Completed infusion; IV Intake: ha1 1000ml 05:40 Drug: AZITHromycin PO 500 mg PO once Route: PO; ha1 05:56 Follow up: Response: No adverse reaction ha1 05:40 Drug: Alum-Mag Hydroxide-Simeth PO Suspension (200 mg-200 mg-20 mg/5 mL) 30 ml PO once ha1 Route: PO; 05:56 Follow up: Response: No adverse reaction ha1 Medication: 02:26 VIS not applicable for this client. vc1 Intake: 05:56 IV: 1000ml; Total: 1000ml. ha1 Outcome: 05:40 Discharge ordered by . jeremy 05:56 Discharged to home ambulatory, ha1 05:56 Condition: stable 05:56 Discharge instructions given to patient, Instructed on discharge instructions, follow up and referral plans. medication usage, Demonstrated understanding of instructions, follow-up care, medications, Prescriptions given X 1, 05:57 Patient left the ED. ha1 Signatures: Dispatcher [employer] Mark Cueva MD MD cha Calcote, Vanessa RN RN 1 Briana Lizama RN RN ha1 Annabella Orta 4 Irish Ponce 2
--- NOTE | 2023-12-06 05:41 | EDPHYS ---
Physician Documentation [facility] Name: Brooke Thomas Age: 33 yrs Sex: Female : 1990 Arrival Date: 12/06/2023 Time: 02:01 Bed 6 Private MD: BLAISE Physician Mark Panchal HPI: 12/05 02:27 This 33 yrs old Female presents to ER via Ambulatory with complaints of Arm jeremy Pain, Throat pain, Swelling Of Tongue, 27 weeks preg. 02:27 The patient or guardian complains of pain, that is acute. The complaints affect the jeremy right bicep, dorsal aspect of right forearm, right tricep and palmar aspect of right forearm. Context: The problem was sustained at an unknown location. Onset: The symptoms/episode began/occurred just prior to arrival, this morning. Treatment prior to arrival includes: no previous treatment. Modifying factors: The symptoms are alleviated by nothing. the symptoms are aggravated by nothing. Associated signs and symptoms:. Associated signs and symptoms: The patient has no apparent associated signs or symptoms. Severity of symptoms: At their worst the symptoms were moderate, in the emergency department the symptoms have improved, moderately. The patient has not experienced similar symptoms in the past. 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 - Infectious Disease History:: Denies. - Social history:: Smoking status: Reported history of juuling and/or vaping. ROS: 02:31 Constitutional: Negative for fever, chills, and weight loss, Eyes: Negative for injury, jeremy pain, redness, and discharge, ENT: Negative for injury, pain, and discharge, Neck: Negative for injury, pain, and swelling, Cardiovascular: Negative for chest pain, palpitations, and edema, Abdomen/GI: Negative for abdominal pain, nausea, vomiting, diarrhea, and constipation, Back: Negative for injury and pain, : Negative for injury, bleeding, discharge, and swelling, MS/Extremity: Negative for injury and deformity, Skin: Negative for injury, rash, and discoloration, Neuro: Negative for headache, weakness, numbness, tingling, and seizure, Psych: Negative for depression, anxiety, suicide ideation, homicidal ideation, and hallucinations, Allergy/Immunology: Negative for hives, rash, and allergies, Endocrine: Negative for neck swelling, polydipsia, polyuria, polyphagia, and marked weight changes, Hematologic/Lymphatic: Negative for swollen nodes, abnormal bleeding, and unusual bruising, 02:31 Respiratory: Positive for shortness of breath, Exam: :31 Constitutional: This is a well developed, well nourished patient who is awake, alert, jeremy and in no acute distress. Head/Face: Normocephalic, atraumatic. Eyes: Pupils equal round and reactive to light, extra-ocular motions intact. Lids and lashes normal. Conjunctiva and sclera are non-icteric and not injected. Cornea within normal limits. Periorbital areas with no swelling, redness, or edema. ENT: Nares patent. No nasal discharge, no septal abnormalities noted. Tympanic membranes are normal and external auditory canals are clear. Oropharynx with no redness, swelling, or masses, exudates, or evidence of obstruction, uvula midline. Mucous membranes moist. Neck: Trachea midline, no thyromegaly or masses palpated, and no cervical lymphadenopathy. Supple, full range of motion without nuchal rigidity, or vertebral point tenderness. No Meningismus. Chest/axilla: Normal chest wall appearance and motion. Nontender with no deformity. No lesions are appreciated. Cardiovascular: Regular rate and rhythm with a normal S1 and S2. No gallops, murmurs, or rubs. Normal PMI, no JVD. No pulse deficits. Respiratory: Lungs have equal breath sounds bilaterally, clear to auscultation and percussion. No rales, rhonchi or wheezes noted. No increased work of breathing, no retractions or nasal flaring. Abdomen/GI: Soft, non-tender, with normal bowel sounds. No distension or tympany. No guarding or rebound. No evidence of tenderness throughout. Back: No spinal tenderness. No costovertebral tenderness. Full range of motion. Skin: Warm, dry with normal turgor. Normal color with no rashes, no lesions, and no evidence of cellulitis. MS/ Extremity: Pulses equal, no cyanosis. Neurovascular intact. Full, normal range of motion. Neuro: Awake and alert, GCS 15, oriented to person, place, time, and situation. Cranial nerves II-XII grossly intact. Motor strength 5/5 in all extremities. Sensory grossly intact. Cerebellar exam normal. Normal gait. Psych: Awake, alert, with orientation to person, place and time. Behavior, mood, and affect are within normal limits. 02:31 ECG was reviewed by the Attending Physician. 02:41 ECG was reviewed by the Attending Physician. [facility] Vital Signs: 02:18 BP 112 / 64; Pulse 88; Resp 18; Temp 98; Pulse Ox 97% ; Weight 86.18 kg; Height 5 ft. 4 vc1 in. ; Pain 0/10; 03:00 BP 105 / 62; Pulse 77; Resp 17 S; Pulse Ox 97% on R/A; ha1 04:00 BP 103 / 61; Pulse 70; Resp 18 S; Pulse Ox 100% ; ha1 05:00 BP 101 / 58; Pulse 75; Resp 19 S; Pulse Ox 99% on R/A; ha1 02:18 Body Mass Index 32.61 (86.18 kg, 162.56 cm) vc1 02:18 Pain Scale: Adult vc1 MDM: 02:12 Patient medically screened. [facility] 02:32 Differential diagnosis: tendonitis, Anxiety Reaction Myocardial Infarction pulmonary jeremy edema, Pulmonary Embolism reactive airway disease. Antibiotic administration: Not indicated. Immunization status:. Data reviewed: vital signs, nurses notes, lab test result(s), EKG, radiologic studies, plain films. Consideration of Admission/Observation Escalation of care including admission/observation considered. I considered the following discharge prescriptions or medication management in the emergency department Medications were administered in the Emergency Department. See MAR. Independent interpretation of the following test(s) in the Emergency Department EKG: See my EKG interpretation above. Test considered but Not performed: Other Details NO VQ SCAN. 12/05 02:25 Order name: Basic Metabolic Panel; Complete Time: 05:29 [facility] 12/05 02:25 Order name: CBC with Diff; Complete Time: 04:11 [facility] 12/05 02:25 Order name: LFT's; Complete Time: 05:29 [facility] 12/05 02:25 Order name: Magnesium; Complete Time: 05:29 [facility] 12/05 02:25 Order name: NT PRO-BNP; Complete Time: 05:29 [facility] 12/05 02:25 Order name: PT-INR; Complete Time: 03:46 [facility] 12/05 02:25 Order name: Troponin HS; Complete Time: 05:29 [facility] 12/05 02:25 Order name: D-Dimer; Complete Time: 03:46 [facility] 12/05 02:25 Order name: XRAY Chest (1 view) 12/05 02:27 Order name: US Extremity Venous W Compression Ezequiel 12/05 03:46 Order name: CT Chest For PE Angio jeremy 12/05 02:25 Order name: Cardiac monitoring; Complete Time: 02:41 [facility] 12/05 02:25 Order name: EKG - Nurse/Tech; Complete Time: 02:41 [facility] 12/05 02:25 Order name: IV Saline Lock; Complete Time: 03:20 [facility] 12/05 02:25 Order name: Labs collected and sent; Complete Time: 03:20 [facility] 12/05 02:25 Order name: O2 Per Protocol; Complete Time: 02:41 [facility] 12/05 02:25 Order name: O2 Sat Monitoring; Complete Time: 02:41 [facility] 12/05 02:25 Order name: FHT's; Complete Time: 03:44 [facility] EC:41 Rate is 68 beats/min. Rhythm is regular. QRS [place] is Normal. NE interval is normal. QRS jeremy interval is normal. QT interval is normal. No Q waves. T waves are Normal. No ST changes noted. Clinical impression: NSR w/ Non-specific ST/T Changes and No evidence of ischemia. Interpreted by me. Reviewed by me. Administered Medications: 03:20 Drug: NS 0.9% IV 1000 ml IV at 1 bolus Per protocol; 1000 mL bolus Route: IV; Rate: 1 cp4 bolus; Site: right antecubital; 05:56 Follow up: Response: No adverse reaction; IV Status: Completed infusion; IV Intake: ha1 1000ml 05:40 Drug: AZITHromycin PO 500 mg PO once Route: PO; ha1 05:56 Follow up: Response: No adverse reaction ha1 05:40 Drug: Alum-Mag Hydroxide-Simeth PO Suspension (200 mg-200 mg-20 mg/5 mL) 30 ml PO once ha1 Route: PO; 05:56 Follow up: Response: No adverse reaction ha1 Disposition Summary: 12/06/23 05:40 Discharge Ordered Notes: Location: Home jeremy Problem: new jeremy Symptoms: have improved jeremy Condition: Stable jeremy Diagnosis - 27 weeks gestation of jreemy - Dyspnea jeremy - Anxiety disorder, unspecified jeremy - Pneumonia due to other specified bacteria jeremy - Gastro-esophageal reflux disease with esophagitis jeremy Followup: jeremy - With: Private Physician - When: 2 - 3 days - Reason: Recheck today's complaints, Continuance of care, Re-evaluation by your physician Discharge Instructions: - Discharge Summary Sheet jeremy - Panic Attack jeremy - Food Choices for Gastroesophageal Reflux Disease, Adult jeremy - Esophagitis jeremy - Gastroesophageal Reflux Disease, Adult jeremy - Community-Acquired Pneumonia, Adult jeremy - Heartburn During jeremy - Care jeremy - Third Trimester of jeremy - Panic Attack, [id number] jeremy - Managing Anxiety, Adult jeremy Forms: - Medication Reconciliation Form jeremy - Antibiotic Education jeremy - Prescription Opioid Use jeremy - Patient Portal Instructions jeremy - Leadership Thank You Letter [facility] Prescriptions: - Zithromax 500 mg Oral tablet - take 1 tablet ORAL route once daily for 4 days; 4 tablet; Refills: 0, Product jeremy Selection Permitted Signatures: Dispatcher [employer] Mark Cueva MD MD cha Calcote, Vanessa RN RN vc1 Briana Lizama RN RN ha1 Annabella Orta cp4 Corrections: (The following items were deleted from the chart) 02:26 02:26 BASIC METABOLIC PANEL+C.LAB.BRZ ordered. EDMS EDMS 02:26 02:26 CBC+H.LAB.BRZ ordered. EDMS EDMS 02:26 02:26 HEPATIC FUNCTION+C.LAB.BRZ ordered. EDMS EDMS 02:26 02:26 MAGNESIUM+C.LAB.BRZ ordered. EDMS EDMS 02:26 02:26 PROBNP+C.LAB.BRZ ordered. EDMS EDMS 02:26 02:26 PROTIME (+INR)+COAG.LAB.BRZ ordered. EDMS EDMS 02:26 02:26 Troponin High Sensitivity+C.LAB.BRZ ordered. EDMS EDMS 02:26 02:26 D-DIMER+COAG.LAB.BRZ ordered. EDMS EDMS 02: Chest Single View+RAD.RAD.BRZ ordered. EDMS EDMS
[2023-12-06] MEDS ORDERED: AZITHROMYCIN 250 MG TAB ONE (05:49)
[2023-12-06] MEDS ORDERED: MAGNES/ALUMIN/SIMET 30ML UCUP ONE (05:49)
[2023-12-06 06:11] VITALS: TEMP 98
[2023-12-06 06:22] VITALS: BP 103/61; O2SAT 100
--- NOTE | 2023-12-06 10:51 | RAD REPORT ---
EXAM DESCRIPTION: CT - Chest For Pe Angio - 12/06/2023 6:47 am CLINICAL HISTORY: Pulmonary embolism COMPARISON: Chest 1 View AP 12/06/2023 at 2:48 AM TECHNIQUE: Chest CTA axial images acquired with IV contrast. Coronal and sagittal CTA MIPs and MPRs created. Exam performed according to departmental dose-optimization program which includes automated exposure control, adjustment of mA and/or kV according to patient size, and/or use of iterative recon struction technique. FINDINGS: Heart size normal. No pericardial effusion. Thoracic aorta unremarkable without evidence of dissection, aneurysm, or atherosclerotic plaque. No evidence of pulmonary embolism. Central tracheobronchial tree unremarkable. Mild dependent atelectasis. Small, adjacent, airspace, right upper lobe lung opacities. No pleural effusion or pneumothorax. Probable small hiatal hernia. Nonspecific, mild, distal, esophageal wall thickening appearance. This may represent artifactual wall thickening due to lack of distention versus true wall thickening from reflux esophagitis and less li som neoplasm. Upper GI fluoroscopic series or upper GI endoscopy may provide more information. Bones unremarkable. IMPRESSION: 1. Small, adjacent, airspace, right upper lobe lung opacities. Causes include focal pulmonary edema and infection. 2. Probable small hiatal hernia. Nonspecific, mild, distal, esophageal wall thickening appearance. Th is may represent artifactual wall thickening due to lack of distention versus true wall thickening fr om reflux esophagitis and less likely neoplasm. Upper GI fluoroscopic series or upper GI endoscopy ma y provide more information. 3. No CT evidence of pulmonary embolism. Electronically signed by: Laci Bunch MD 12/06/2023 05:28 AM CDT Due to temporary technical issues with the PACS/Fluency reporting system, reports are being signed by the in house radiologist without review as a courtesy to ensure prompt reporting. The interpreting r adiologist is fully responsible for the content of the report.
--- NOTE | 2023-12-06 10:52 | RAD REPORT ---
EXAM DESCRIPTION: RAD - Chest Single View - 12/06/2023 2:54 am CLINICAL HISTORY: Dyspnea. COMPARISON: None. FINDINGS: 1 view(s) of the chest. Tubes and lines: None. Cardiomediastinal silhouette: Normal size and contour. Lungs: Low lung volumes. Hazy left basilar opacity. No pneumothorax. No large effusion. Bones: No acute osseous abnormality. Upper abdomen: No abnormality identified. IMPRESSION: Hazy left basilar opacity may be related to atelectasis or developing pneumonic process. Electronically signed by: Prvaeen Rodríguez DO 12/06/2023 03:37 AM CDT RP [id number] Due to temporary technical issues with the PACS/Fluency reporting system, reports are being signed by the in house radiologist without review as a courtesy to ensure prompt reporting. The interpreting r adiologist is fully responsible for the content of the report.
--- NOTE | 2023-12-06 10:55 | RAD REPORT ---
EXAM DESCRIPTION: US - Extrem Venous W Compress Ezequiel - 12/06/2023 3:49 am CLINICAL HISTORY: 33 years Female PAIN TECHNIQUE: Bilateral lower extremity color duplex evaluation of the deep venous system performed on 12/06/2023 at 2: 44 AM. COMPARISON: None FINDINGS: Grayscale and color Doppler images of the deep veins of the right lower extremity was perf ormed. The grayscale images reveal normal compressibility of the deep veins. The Doppler images revea l normal flow, phasicity with respiration and normal augmentation with compression. The color flow im ages reveal normal saturation of flow within the deep veins of the right lower extremity. No intralum inal echoes are identified to suggest nonocclusive thrombus. Grayscale and color Doppler images of the deep veins of the left lower extremity was performed. The g rayscale images reveal normal compressibility of the deep veins. The Doppler images reveal normal verna w, phasicity with respiration and normal augmentation with compression. The color flow images reveal normal saturation of flow within the deep veins of the left lower extremity. No intraluminal echoes a re identified to suggest nonocclusive thrombus. The superficial veins are patent. No additional abnormalities are identified. IMPRESSION: No evidence of deep venous thrombosis in either lower extremity. Electronically signed by: Mey Manning DO 12/06/2023 04:24 [facility] Due to temporary technical issues with the PACS/Fluency reporting system, reports are being signed by the in house radiologist without review as a courtesy to ensure prompt reporting. The interpreting r adiologist is fully responsible for the content of the report.
--- NOTE | 2023-12-07 13:32 | EKG ---
Test Date: 2023-12-06 Test Time: 02:38:40 Business Office Assistant: SHIVA MEASUREMENT RESULTS: Intervals: Rate: 68 DE: 148 QRSD: 86 QT: 392 QTc: 416 [place]: P: DE: 148 QRS: 93 T: 91 INTERPRETIVE STATEMENTS: Normal sinus rhythm Lateral infarct, age undetermined Abnormal ECG No previous ECG available for comparison Electronically Signed On 12-07-23 13:28:38 CDT by Adelso Castellanos
== END 2023-12-06 05:57 | disposition home or self-care (01) ==
LOC: ER 02:01
DX: O99.512 Diseases of the respiratory system complicating pregnancy, second trimester (principal); J15.8 Pneumonia due to other specified bacteria; O99.612 Diseases of the digestive system complicating pregnancy, second trimester; K21.00 Gastro-esophageal reflux disease with esophagitis, without bleeding; O99.342 Other mental disorders complicating pregnancy, second trimester; F41.9 Anxiety disorder, unspecified; G47.419 Narcolepsy without cataplexy; O99.112 Other diseases of the blood and blood-forming organs and certain disorders involving the immune mechanism complicating pregnancy, second trimester; D68.51 Activated protein C resistance; Z3A.27 27 weeks gestation of pregnancy
CPT/HCPCS: 96361; 93005; 85025; 80048; 36415; 83735; 85610; 85379; 80076; 84484; 83880; 71275; 71045; 93970; 96360; 99285; Q9967; J7030

== ENCOUNTER 2024-01-01 04:50 | Emergency (ER) | payer OTHER ==
--- OUTSIDE RECORDS SUMMARY | 2024-01-01 05:02 | XMS REPORT | Continuity of Care Document ---
Author Name Unknown Address [address] [facility] [address] [place] [id number] [facility] thconnect Address [address] [facility] [address] [place] [address] Care Team Providers Care Hog Worker Name Role Phone BARBI GALLEGOS Primary Care Physician PASQUALE Martinez Attending Clinician Unavailable PASQUALE PAULA Attending Clinician Unavailable ELENA ORANTES Attending Clinician Unavailable RINA JEWELL Attending Clinician Unavailable Rina Jewell DNP Attending Clinician [phone] Pasquale Paula MD Attending Clinician [phone] Nurse, [facility] Attending Clinician Un available 2, [facility] Lab Attending Clinician Unavailable MARK SINGH Attending Clinician Unavailable MARK SINGH Attending Clinician Unavailable Ultrasound, Ang[facility] Attending Clinician Unavaila ble Reyes DOMark Attending Clinician RUSTAM YU Attending Clinician Unavailable RUSTAM YU Attending Clinician Unavailable RUSTAM YU Attending Clinician Unavailable Doctor Unassigned, Mylo Attending Clinician U navailable 1, [facility] Us Room Attending Clinician Unavailab gorge Nurse, [facility] Attending Clinician Unavailable SWAPNIL HESS Attending Clinician Unavai labgorge Lab, Ang - Db Attending Clinician Unavailable Swapnil Hess MD Attending Clinician + [phone] Pob, [facility] Main Attending Clinician UnavailRosibel Joyner MD Attending Clinician [phone] NADEEN DAVIS Attending Clinician Unavailab Nadeen Carreno DO Attending Clinician [phone] SAGAR GONZALEZ Attending Clinician Unavailable Nurse, [facility] Attending Clinician Un available Unknown, Attending Attending Clinician Unavailab ADALID Carter Attending Clinician Unavailable SHANTHI BAUER Attending Clinician Unavail able Ludwin INSPECTOR RAG SORTING, Alem Attending Clinician [phone] PEDRO LANGFORD Attending Clinician Unavailab gorge [facility] + Carole Ramirez MD Attending Clinician [phone] Paula Izaguirre MD Attending Clinicia n PHILIP MAYES Attending Clinician Unavailable SANIYA WOLF Attending Clinician Unavailchrissy Wolf [facility], Saniya Pineda Attending Clinician ROSIBEL RAMIREZ Attending Clinician Unavailable Iram Steward RN Attending Clinician Olimpia vailable Doctor Unassigned, Mylo Attending Clinician U navailable Avelino Clayton MD Attending Clinician + Amber Rey Attending Clinician UnavailJA Polanco Attending Clinician Unavailable Ja Saldana MD Attending Clinician [phone] AVELINO CLAYTON Attending Clinician Unabev ailmaricruz 1, [facility] Usg Room Attending Clinician Unavaila ALBERTO Prasad Attending Clinician UnavailAlberto Cody MD Attending Clinician [phone] TERRENCE BARRON Attending Clinician Unavaila olivia Jett, [facility] Tong Barron MD, Terrence Lynne Attending Clinician [phone] ADILSON CHERRY Attending Clinician Unavailable AMENA BETANCOURT Attending Clinician UnavailAMENA Dan Attending Clinician Unavailchrissy MARTINEZ, Susan CHILEL Attending Clinician Unavailable Susan Kelly Attending Clinician [phone] Deanne Simmons MA Attending Clinician Unavailab JARETH Hodegs Attending Clinician Unavailable Jareth Olmedo MD Attending Clinician [phone] 2, [facility] Attending Clinician Unavailable Eliud CROSS, Quinten M Attending Clinician [phone] KAMERON DANIELS Attending Clinician Unavailable Kameron Daniels MD Attending Clinician [phone] Praveen Lizarraga Attending Clinician Unavail able RUSTAM YU Admitting Clinician Unavailable ROSIBEL RAMIREZ Admitting Clinician Unavailable AMENA BETANCOURT Admitting Clinician UnavailSusan Callaway Admitting Clinician Unavailable KAMERON DANIELS Admitting Clinician Unavailable Physician, No Primary or Family Admitting Clinic amanda Unavailable Payers Payer Name Policy Type Policy Number Effective Date Expirati on Date Source $20 G [id number] 2007 00:00:00 [employer] PPO [id number] 2023 00:00:00 [facility] [id number] 2022 00:00:00 [employer] 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 [id number] 2022 00:00:00 [employer] MP [employer] 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[employer]: 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 ON STAND 9 [id number] 2022 00:00:00 [facility] [id number] 00:00:00 Problems Condition Name Condition Details Condition Category Status Onset Date Resolution Date Last Treatment Date Treating Clinician Comments Source Positive test for herpes simplex virus (HSV) antibody Positive test for herpes simplex virus (HSV) antibody Disease Active 11-21 00:00: 00 [facility] Need for HPV vaccinatio n Need for HPV vaccinatio n Disease Active 2022-04 2-11 00:00: 00 [facility] Obesity (BMI 30-39.9) Obesity (BMI 30-39.9) Disease Active 2022-04 1-20 00:00: 00 [facility] High-risk in third trimester High-risk in third trimester Disease Active 4-10 00:00: 00 [facility] Bicornuate uterus affecting , antepartum Bicornuate uterus affecting , antepartum Disease Active 2021-04 2-12 00:00: 00 [facility] Suboxone maintenanc e treatment complicati ng , antepartum Suboxone maintenanc e treatment complicati ng , antepartum Disease Active 2021-04 00:00: 00 [facility] Narcolepsy due to 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 Reports quit x1 year ago [facility] Tobacco use disorder Tobacco use disorder Disease Active 2019-0 8-09 00:00: 00 [facility] care and examinatio n of lactating mother care and examinatio n of lactating mother Disease Resolve d 2022-04 2-11 00:00: 00 2023-08-17 00:00:00 2023-08-17 14:11:39 [facility] 39 weeks gestation of 39 weeks gestation of Disease Resolve d 2022-04 1-20 00:00: 00 2023-03-26 00:00:00 2023-03-26 14:14:51 [facility] Obesity affecting in third trimester Obesity affecting in third trimester Disease Resolve d 2022-04 1-07 00:00: 00 2023-03-26 00:00:00 2023-03-26 14:14:36 [facility] Anemia of mother in , antepartum Anemia of mother in , antepartum Disease Resolve d 2022-04 1-01 00:00: 00 2023-03-26 00:00:00 2023-03-26 14:14:50 [facility] Choroid plexus cyst Choroid plexus cyst Disease Resolve d 0 7-25 00:00: 00 2023-03-26 00:00:00 2023-03-26 14:14:47 Overview: Formattin g of this note might be different from the original. Noted on Suyapa cs is recommend ed and a FU is suggested [facility] Multiparit y Multiparit y Disease Resolve d 2022-0 4-10 00:00: 00 2023-03-26 00:00:00 2023-03-26 14:14:42 [facility] History of miscarriag e History of miscarriag e Disease Resolve d 2022-0 4-10 00:00: 00 2023-03-26 00:00:00 2023-03-26 14:14:43 [facility] Nausea and vomiting in Nausea and vomiting in Disease Resolve d 2022-0 4-10 00:00: 00 2023-03-26 00:00:00 2023-03-26 14:14:40 [facility] Rh negative state in antepartum period Rh negative state in antepartum period Disease Resolve d 2021-04 2-27 00:00: 00 2023-03-26 00:00:00 2023-03-26 14:14:34 Overview: Formattin g of this note might be different from the original. Will need rhogam 28 weeks, prn [facility] Bicornuate uterus affecting , antepartum Bicornuate uterus affecting , antepartum Disease Resolve d 2021-04 2-12 00:00: 00 2023-03-26 00:00:00 2023-03-26 14:14:29 [facility] Missed Missed Disease Resolve d 2021-04 2- 00:00: 00 2022-07-24 00:00:00 2022-07-24 13:56:20 [facility] Vaginal bleeding Vaginal bleeding Disease Resolve d 2021-04 2- 00:00: 00 2022-07-24 00:00:00 2022-07-24 13:54:37 [facility] Bicornuate uterus Bicornuate uterus Disease Resolve d 2021-04 2- 00:00: 00 2022-07-24 00:00:00 2022-07-24 14:05:21 [facility] Abnormal ultrasound Abnormal ultrasound Disease Resolve d 2021-04 2-12 00:00: 00 2022-07-24 00:00:00 2022-07-24 13:56:28 [facility] Needs flu shot Needs flu shot Disease Resolve d 2021-04- 00:00: 00 2022-07-24 00:00:00 2022-07-24 13:56:13 [facility] examinatio n or test, positive result examinatio n or test, positive result Disease Resolve d 2021-04 00:00: 00 2022-07-24 00:00:00 2022-07-24 13:56:09 [facility] with inconclusi ve viability, single or unspecifie d fetus with inconclusi ve viability, single or unspecifie d fetus Disease Resolve d 2021-04- 00:00: 00 2022-07-24 00:00:00 2022-07-24 13:56:11 [facility] Nausea and vomiting in prior to 22 weeks gestation Nausea and vomiting in prior to 22 weeks gestation Disease Resolve d 2021-04 00:00: 00 2022-07-24 00:00:00 2022-07-24 13:56:15 [facility] 5 weeks gestation of 5 weeks gestation of Disease Resolve d 2021-04 00:00: 00 2022-07-24 00:00:00 2022-07-24 13:56:33 [facility] Pain pelvic Pain pelvic Disease Resolve d 2021-04 0-13 00:00: 00 2022-07-24 00:00:00 2022-07-24 13:54:36 [facility] BMI 30.0-30.9, adult BMI 30.0-30.9, adult Disease Resolve d 8-10 00:00: 00 2022-07-24 00:00:00 2022-07-24 13:56:32 [facility] Screening examinatio n for STD (sexually transmitte d disease) Screening examinatio n for STD (sexually transmitte d disease) Disease Resolve d 2021-0 7-30 00:00: 00 2022-07-24 00:00:00 2022-07-24 13:56:05 [facility] Late menses Late menses Disease Resolve d 2021-0 7-30 00:00: 00 2022-07-24 00:00:00 2022-07-24 13:54:35 [facility] BMI 29.0-29.9, adult BMI 29.0-29.9, adult Disease Resolve d 2021-0 7-30 00:00: 00 2022-07-24 00:00:00 2022-07-24 13:56:31 [facility] Well woman exam with routine gynecologi senait exam Well woman exam with routine gynecologi senait exam Disease Resolve d 0 8-09 00:00: 00 2022-07-24 00:00:00 2022-07-24 13:56:02 [facility] Boil of inguinal region Boil of inguinal region Disease Resolve d 8 00:00: 00 2021-11-12 00:00:00 2021-11-12 21:58:34 [facility] IUD (intrauter ine device) in place IUD (intrauter ine device) in place Disease Resolve d 8 00:00: 00 2021-10-27 00:00:00 2021-10-27 15:54:50 [facility] Allergies, Adverse Reactions, Alerts Allergy Name Allergy Type Status Severity Reaction(s) Onset Date Inactive Date Treating Clinician Comments Source Amoxicil jalen Propensi ty to adverse reaction s Active Itching 10-18 00:00: 00 Ani Johnson - Externa l AMOXICIL JALEN DRUG INGREDI Active ITCHING 10-18 00:00: 00 [facility] Penicill ins DA Active MO RASH 2020-04 00:00: 00 [facility] Coconut DA Active SV 09-24 00:00: 00 [facility] Social History Social Habit Start Date Stop Date Quantity Comments Source ASSERTION 2023-06-14 00:00:00 [facility] History of tobacco use Cigarette Smoker [facility] Gender identity [facility] Sexual orientation Susan Johnson - External Alcoholic beverage intake 2023-12-29 00:00:00 2023-12-29 00:00:00 Lifetime non-drinker (finding) [facility] Cigarettes smoked current (pack per day) - Reported 2023-09-14 00:00:00 2023-09-14 00:00:00 [facility] Cigarette pack-years 2023-09-14 00:00:00 2023-09-14 00:00:00 [facility] Tobacco use and exposure 2023-09-14 00:00:00 2023-09-14 00:00:00 Smokeless tobacco non-user [facility] Alcohol intake 2023-03-30 00:00:00 2023-03-30 00:00:00 Ex-drinker (finding) Ani Johnson - External History of Social function 2023-03-30 00:00:00 2023-03-30 00:00:00 Ani Johnson - External Exposure to SARS-CoV-2 (event) 2022-09-08 00:00:00 2022-09-18 15:45:00 Not sure [facility] Tobacco Comment 2021-10-27 00:00:00 2021-10-27 00:00:00 taking Chantix [facility] Sex Assigned At 1990 00:00:00 1990 00:00:00 Ani Johnson - External Smoking Status Start Date Stop Date Source Ex-smoker 2023-09-14 00:00:00 2023-09-14 [facility] 2021-10-27 00:00:00 [facility] Medications Ordered Medication Name Filled Medication Name Start Date Stop Date Current Medication? Ordering Clinician Indication Dosage Frequency Signature (SIG) Comments Components Source rho(D) immune globulin (RHOPHYLAC) injection 300 mcg 12-13 21:15: 00 12-13 20:18 :00 No [id number] 300ug 300 mcg, Intramuscu lar, ONCE, 1 dose, On Sun12/14/23 at 1615, Routine [facility] famotidine 20 mg tablet 12-12 00:00: 00 Yes [id number] 20mg Take 1 tablet by mouth in the morning and 1 tablet in the evening. [facility] metoclopram tico HCl 10 mg tablet 11-21 00:00: 00 Yes [id number] 10mg Take 1 tablet by mouth every 6 (six) hours as needed for Nausea and Vomiting (N/V). [facility] enoxaparin (LOVENOX) 40 mg/0.4 mL injection 10-11 00:00: 00 Yes [id number] 40mg inject 0.4 mL under the skin in the morning. [facility] metoclopram tico HCl 10 mg tablet 10-11 00:00: 00 11-21 00:00 :00 No [id number] 10mg Take 1 tablet by mouth every 6 (six) hours as needed for Nausea and Vomiting (N/V). [facility] ferrous sulfate (IRON, FERROUS SULFATE,) 325 mg (65 mg iron) tablet 09-25 00:00: 00 Yes [id number] 325mg Take 1 tablet by mouth in the morning and 1 tablet in the evening. [facility] Nitrofurant oin&Nit. Macrocryst (MACROBID) 100 mg capsule 09-24 00:00: 00 10-02 04:59 :00 No [id number] 100mg Take 1 capsule by mouth in the morning and 1 capsule in the evening. Do all this for 7 days. [facility] methylpheni date HCl 5 mg tablet 08-16 09:55: 06 Yes 5mg Take 5 mg by mouth in the morning and 5 mg at noon and 5 mg in the evening. [facility] PNV 67-iron ps-folate no.1-dha (VITAFOL ULTRA) 29 mg iron- 1 mg-200 mg Cap 08-16 00:00: 00 Yes [id number] 1{capsu le} Take 1 capsule by mouth in the morning. [facility] doxylamine- pyridoxine, vit B6, (DICLEGIS) 10-10 mg per tablet 08-16 00:00: 00 11-21 00:00 :00 No [id number] 1 tab@HS.If not effective, 2 tab@HS.If not effective, 2 tab@HS&1 tab in AM.If not effective, 2@HS,1 in AM,&1 in early PM. Max: 4 tab/day. [facility] metoclopram tico HCl 10 mg tablet 08-16 00:00: 00 10-11 00:00 :00 No [id number] 10mg Take 1 tablet by mouth every 6 (six) hours as needed for Nausea and Vomiting (N/V). [facility] enoxaparin 40 mg/0.4 mL injection 08-16 00:00: 00 09-16 04:59 :00 No 40mg inject 0.4 mL under the skin every 24 (twenty-fo ur) hours for 30 days. [facility] Buprenorphi ne HCl-Naloxon e HCl (Suboxone) 8-2 [...] noon and 1 tablet in the evening. [facility] enoxaparin (LOVENOX) injection 40 mg 2022-04 21:00: 00 Yes 40mg 40 mg, Subcutaneo us, Q24H, First dose on Sun03/06/23 at 1500, Until Discontinu ed, Routine [facility] methylpheni date HCl 5 mg tablet 2022-04 12:36: 49 Yes 5mg Take 1 tablet by mouth in the morning and 1 tablet at noon and 1 tablet in the evening. [facility] acetaminoph en (TYLENOL) tablet 650 mg 2022-04 [...] ed, Routine, pain 7-10 [Order 2 End] [facility] diphenhydrA MINE (BENADRYL) tablet 25 mg 2022-04 05:25: 59 Yes 25mg 25 mg, Oral, Q6HPRN, Starting on Sun03/05/23 at 2325, Until Discontinu ed, Routine, Sleep, Itching [facility] ondansetron (ZOFRAN (PF)) injection 4 mg 2022-04 05:25: 59 Yes 4mg 4 mg, Slow IV Push, Q8HPRN, Starting on Sun03/05/23 at 2325, Until Discontinu ed, Routine, Nausea and Vomiting (N/V) [facility] simethicone (GAS RELIEF (SIMETHICON E)) chewable tablet 160 mg 2022-04 05:25: 59 Yes 160mg 160 mg, Oral, PC+HSPRN, Starting on Sun03/05/23 at 2325, Until Discontinu ed, Routine, Gas [facility] docusate (COLACE) capsule 200 mg 2022-04 05:25: 59 Yes 200mg 200 mg, Oral, QDAILYPRN, Starting on Sun03/05/23 at 2325, Until Discontinu ed, Routine, Constipati on [facility] magnesium hydroxide (MILK OF MAGNESIA) 400 mg/5 mL suspension 30 mL 2022-04 05:25: 59 Yes 30mL 30 mL, Oral, QDAILYPRN, Starting on Sun03/05/23 at 2325, Until Discontinu ed, Routine, Constipati on [facility] benzocaine- menthol (DERMOPLAST ) 20-0.5 % topical spray 2022-04 05:25: 59 Yes Topical, PRN, Starting on Sun03/05/23 at 2325, Until Discontinu ed, Routine, Perineum discomfort [facility] buprenorphi ne HCL (SUBUTEX) sublingual tablet 2 mg 2022-04 02:00: 00 Yes 2mg 2 mg, Sublingual , BID, First dose (after last modificati on) on Sun03/05/23 at 2000, Until Discontinu ed, Routine [facility] Vit-Fe Fumarate-FA () oral Tablet 2022-04 00:00: 00 Yes Ani johnson enoxaparin 40 mg/0.4 mL injection 2022-04 00:00: 00 08-16 00:00 :00 No [id number] 40mg inject 0.4 mL under the skin every 24 (twenty-fo ur) hours. [facility] [id number] fum-folic () 27 mg iron- 1 mg folic tablet 2022-04 00:00: 00 08-16 00:00 :00 No [id number] 1{tbl} Take 1 tablet by mouth in the morning. [facility] docusate 100 mg capsule 2022-04 00:00: 00 08-16 00:00 :00 No [id number] 200mg Take 2 capsules by mouth once daily as needed for Constipati on. [facility] ferrous sulfate 325 mg (65 mg iron) tablet 2022-04 00:00: 00 08-16 00:00 :00 No [id number] 325mg Take 1 tablet by mouth in the morning and 1 tablet in the evening. [facility] ibuprofen 600 mg tablet 2022-04 00:00: 00 08-16 00:00 :00 No [id number] 600mg Take 1 tablet by mouth every 6 (six) hours as needed (Pain). Take with food or milk. [facility] PIB ropivacaine 0.2 % (NAROPIN (PF)) epidural infusion 2022-04 20:58: 00 03-06 04:15 :48 No Epidural, CONTINUOUS PRN, Starting on Sun03/05/23 at 1458, Until Discontinu ed, Routine, Intra-op [facility] lidocaine-e pinephrine (XYLOCAINE W/EPINEPHRI NE) 1.5 %-1:200,000 injection 2022-04 20:56: 00 03-06 04:15 :48 No Intraderma l, ONCE INTRA PROCEDURE, Starting on Sun03/05/23 at 1456, Until Discontinu ed, Routine, Intra-op [facility] buprenorphi ne HCL (SUBUTEX) sublingual tablet 4 mg 2022-04 18:30: 00 Yes 4mg 4 mg, Sublingual , LUNCH, First dose on Sun03/05/23 at 1230, Until Discontinu ed, Routine [facility] oxytocin (PITOCIN) 30 units in NS 500 mL IV infusion 2022-04 17:13: 47 03-06 05:26 :03 No 2mU/min at 2-40 mL/hr, IV Infusion, TITRATE, Starting on Sun03/05/23 at 1113, Until Sun03/05/23 at 2326, TIANNA [facility] D5W-LR IV infusion 1,000 mL 2022-04 17:13: 36 03-06 05:26 :03 No 1000mL at 1-125 mL/hr, IV Infusion, TITRATE, Starting on Sun03/05/23 at 1113, Until Sun03/05/23 at 2326, Routine [facility] methylpheni date HCl 5 mg tablet 2022-04 11:49: 52 Yes 5mg Take 1 tablet by mouth in the morning and 1 tablet at noon and 1 tablet in the evening. [facility] Methylpheni date HCl 10 MG oral Tablet 2022-04 00:00: 00 Yes Ani Johnson - Ranjana l Iron Fum & P-FA-Vit B & C No.9 (INTEGRA PLUS) 125 mg iron- 1 mg Cap 2022-04 00:00: 00 Yes [id number] 1{capsu le} Take 1 capsule by mouth in the morning. [facility] methylpheni date HCl 5 mg tablet 2022-04 17:22: 23 Yes 5mg Take 1 tablet by mouth in the morning and 1 tablet at noon and 1 tablet in the evening. [facility] doxylamine- pyridoxine, vit B6, (DICLEGIS) 10-10 mg per tablet 2022-04 00:00: 00 03-06 00:00 :00 No [id number] 2{tbl} Take 2 tablets by mouth at bedtime. [facility] ascorbic acid, vitamin C, 500 mg tablet 2022-04 00:00: 00 02-20 00:00 :00 No [id number] 500mg Take 1 tablet by mouth in the morning and 1 tablet at noon and 1 tablet in the evening. [facility] ferrous sulfate 325 mg (65 mg iron) tablet 2022-04 00:00: 00 02-20 00:00 :00 No [id number] 325mg Take 1 tablet by mouth in the morning and 1 tablet in the evening. [facility] doxylamine- pyridoxine, vit B6, (DICLEGIS) 10-10 mg per tablet 12-12 00:00: 00 02-14 00:00 :00 No [id number] 2{tbl} Take 2 tablets by mouth at bedtime. [facility] methylpheni date HCl 5 mg tablet 11-16 10:30: 36 Yes 5mg Take 5 mg by mouth in the morning and 5 mg at noon and 5 mg in the evening. [facility] DICLEGIS 10-10 mg per tablet 10-19 00:00: 00 Yes [id number] TAKE 2 TABLETS BY MOUTH AT BEDTIME IF NO RELIEF ON DAY 3 TAKE 1 TAB. IN THE MORNING AND 2 TABS. AT BEDTIME, NO RELIEF DAY 4 TAKE 1 TAB. MORNING, 1 TAB. IN AFTERNOON AND 2 TABS. BEDTIME [facility] metroNIDAZO LE 500 mg tablet 605 00:00: 00 09-26 04:59 :00 No [id number] 500mg Take 1 tablet by mouth in the morning and 1 tablet in the evening. Do all this for 7 days. [facility] enoxaparin (LOVENOX) 40 mg/0.4 mL injection 17 00:00: 00 01-28 04:59 :00 No [id number] 40mg inject 0.4 mL under the skin in the morning for 180 days. [facility] vit no.124/iron /folic ( VITAMIN ORAL) 14 15:09: 24 07-28 00:00 :00 No Take by mouth. [facility] vitamin w/FA tablet 07-28 00:00: 00 Yes [id number] 1{tbl} Take 1 tablet by mouth in the morning. [facility] vitamin w/FA tablet 07-28 00:00: 00 Yes [id number] 1{tbl} Take 1 tablet by mouth in the morning. [facility] doxylamine- pyridoxine, vit B6, (DICLEGIS) 10-10 mg per tablet 07-28 00:00: 00 10-19 00:00 :00 No [id number] 2{tbl} Take 2 tablets by mouth at bedtime. [facility] proMETHazin e 25 mg tablet 07-24 00:00: 00 09-18 00:00 :00 No [id number] 25mg Take 1 tablet by mouth every 6 (six) hours as needed for Nausea and Vomiting (N/V). [facility] vitamin w/FA tablet 07-24 00:00: 00 07-28 00:00 :00 No [id number] 1{tbl} Take 1 tablet by mouth in the morning. [facility] miSOPROStoL (CYTOTEC) tablet 800 mcg 2021-04 22:30: 00 04-11 22:26 :00 No [id number] 800ug [facility] NaCl 0.9% (NS) bolus infusion 1,000 mL 2021-04 01:00: 00 03-24 00:55 :00 No 1000mL at 999 mL/hr, 1,000 mL, IV Infusion, ONCE, 1 dose, On Fariha 03/23/22 at 1900, STAT [facility] iopamidol (ISOVUE 370-500 mL) injection 65 mL 2021-04 22:28: 00 03-23 22:29 :00 No [id number] 65mL 65 mL, Intravenou s, ONCE, 1 dose, On Fariha 03/23/22 at 1645, Routine [facility] ondansetron 8 mg disintegrat ing tablet 2021-04 00:00: 00 07-24 00:00 :00 No [id number] 8mg Take 1 tablet by mouth every 8 (eight) hours as needed for Nausea and Vomiting (N/V). [facility] vit no.124/iron /folic ( VITAMIN ORAL) 2021-04 15:57: 04 Yes Take by mouth. [facility] metoclopram tico HCl 10 mg tablet 2021-04 00:00: 00 07-24 00:00 :00 No [id number] 10mg Take 1 tablet by mouth every 6 (six) hours as needed for Nausea and Vomiting (N/V). [facility] modafiniL 200 mg tablet 9-29 00:00: 00 Yes 200mg Take 1 tablet by mouth every morning. [facility] buprenorphi ne-naloxone 8-2 mg sublingual film 12-29 00:00: [address] 1 FILM UNDERNEATH TONGUE EVERY DAY. ALLOW TO DISSOLVE SLOWLY IN MOUTH WITHOUT CHEWING OR SWALLOWING [facility] modafiniL 200 mg tablet 6-14 00:00: 00 01-06 00:00 :00 No 200mg Take 200 mg by mouth every morning. [facility] cyclobenzap rine 10 mg tablet 08-20 00:00: 00 01-26 00:00 :00 No [id number] TAKE 1 TABLET BY MOUTH EVERY 8 HOURS NEEDED FOR MUSCLE SPASMS. [facility] gabapentin 600 mg tablet 7-25 00:00: 00 01-26 00:00 :00 No TK 1/2 TO 1 T PO BID [facility] tablet compound base no.230 (SUBSOLV RDT MISC) 08-26 00:00: 00 01-06 00:00 :[address] 1 AND 1/2 FILMS UNDER THE TONGUE Q DAY ALLOW TO DISSOLVE SLOWLY WITHOUT CHEWING OR SWALLOWING [facility] Immunizations Ordered Immunization Name Filled Immunization Name Date Status Comments Source TDAP 2022-12-21 00:00:00 Completed [facility] Rho (d) Immune Globulin 2022-12-21 00:00:00 Completed [facility] Rho (d) Immune Globulin 2022-04-11 00:00:00 Completed [facility] Rho (d) Immune Globulin 2022-04-11 00:00:00 Completed [facility] Rho (d) Immune Globulin 2022-04-11 00:00:00 Completed [facility] Rho (d) Immune Globulin 2022-04-11 00:00:00 Completed [facility] Rho (d) Immune Globulin 2022-04-11 00:00:00 Completed [facility] Rho (d) Immune Globulin 2022-04-11 00:00:00 Completed [facility] Rho (d) Immune Globulin 2022-04-11 00:00:00 Completed [facility] Rho (d) Immune Globulin 2022-04-11 00:00:00 Completed [facility] Rho (d) Immune Globulin 2022-04-11 00:00:00 Completed [facility] Rho (d) Immune Globulin 2022-04-11 00:00:00 Completed [facility] Rho (d) Immune Globulin 2022-04-11 00:00:00 Completed [facility] Rho (d) Immune Globulin 2022-04-11 00:00:00 Completed [facility] Rho (d) Immune Globulin 2022-04-11 00:00:00 Completed [facility] Rho (d) Immune Globulin 2022-04-11 00:00:00 Completed [facility] Rho (d) Immune Globulin 2022-04-11 00:00:00 Completed [facility] Rho (d) Immune Globulin 2022-04-11 00:00:00 Completed [facility] Rho (d) Immune Globulin 2022-04-11 00:00:00 Completed [facility] Rho (d) Immune Globulin 2022-04-11 00:00:00 Completed [facility] Rho (d) Immune Globulin 2022-04-11 00:00:00 Completed [facility] Rho (d) Immune Globulin 2022-04-11 00:00:00 Completed [facility] Rho (d) Immune Globulin 2022-04-11 00:00:00 Completed [facility] Rho (d) Immune Globulin 2022-04-11 00:00:00 Completed [facility] Rho (d) Immune Globulin 2022-04-11 00:00:00 Completed [facility] Rho (d) Immune Globulin 2022-04-11 00:00:00 Completed [facility] Rho (d) Immune Globulin 2022-04-11 00:00:00 Completed [facility] Rho (d) Immune Globulin 2022-04-11 00:00:00 Completed [facility] Rho (d) Immune Globulin 2022-04-11 00:00:00 Completed [facility] Rho (d) Immune Globulin 2022-04-11 00:00:00 Completed [facility] Rho (d) Immune Globulin 2022-04-11 00:00:00 Completed [facility] Rho (d) Immune Globulin 2022-04-11 00:00:00 Completed [facility] Rho (d) Immune Globulin 2022-04-11 00:00:00 Completed [facility] Rho (d) Immune Globulin 2022-04-11 00:00:00 Completed [facility] Rho (d) Immune Globulin 2022-04-11 00:00:00 Completed [facility] Rho (d) Immune Globulin 2022-04-11 00:00:00 Completed [facility] Rho (d) Immune Globulin 2022-04-11 00:00:00 Completed [facility] Rho (d) Immune Globulin 2022-04-11 00:00:00 Completed [facility] Rho (d) Immune Globulin 2022-04-11 00:00:00 Completed [facility] Rho (d) Immune Globulin 2022-04-11 00:00:00 Completed [facility] Rho (d) Immune Globulin 2022-04-11 00:00:00 Completed [facility] Rho (d) Immune Globulin 2022-04-11 00:00:00 Completed [facility] Rho (d) Immune Globulin 2022-04-11 00:00:00 Completed [facility] Rho (d) Immune Globulin 2022-04-11 00:00:00 Completed [facility] Rho (d) Immune Globulin 2022-04-11 00:00:00 Completed [facility] Rho (d) Immune Globulin 2022-04-11 00:00:00 Completed [facility] Rho (d) Immune Globulin 2022-04-11 00:00:00 Completed [facility] Rho (d) Immune Globulin 2022-04-11 00:00:00 Completed [facility] Rho (d) Immune Globulin 2022-04-11 00:00:00 Completed [facility] HPV9 2022-03-28 00:00:00 Completed [facility] HPV9 2022-03-28 00:00:00 Completed [facility] HPV9 2022-03-28 00:00:00 Completed [facility] HPV9 2022-03-28 00:00:00 Completed [facility] HPV9 2022-03-28 00:00:00 Completed [facility] HPV9 2022-03-28 00:00:00 Completed [facility] HPV9 2022-03-28 00:00:00 Completed [facility] HPV9 2022-03-28 00:00:00 Completed [facility] HPV9 2022-03-28 00:00:00 Completed [facility] HPV9 2022-03-28 00:00:00 Completed [facility] HPV9 2022-03-28 00:00:00 Completed [facility] HPV9 2022-03-28 00:00:00 Completed [facility] HPV9 2022-03-28 00:00:00 Completed [facility] HPV9 2022-03-28 00:00:00 Completed [facility] HPV9 2022-03-28 00:00:00 Completed [facility] HPV9 2022-03-28 00:00:00 Completed [facility] HPV9 2022-03-28 00:00:00 Completed [facility] HPV9 2022-03-28 00:00:00 Completed [facility] HPV9 2022-03-28 00:00:00 Completed [facility] HPV9 2022-03-28 00:00:00 Completed [facility] HPV9 2022-03-28 00:00:00 Completed [facility] HPV9 2022-03-28 00:00:00 Completed [facility] HPV9 2022-03-28 00:00:00 Completed [facility] HPV9 2022-03-28 00:00:00 Completed [facility] HPV9 2022-03-28 00:00:00 Completed [facility] HPV9 2022-03-28 00:00:00 Completed [facility] HPV9 2022-03-28 00:00:00 Completed [facility] HPV9 2022-03-28 00:00:00 Completed [facility] HPV9 2022-03-28 00:00:00 Completed [facility] HPV9 2022-03-28 00:00:00 Completed [facility] HPV9 2022-03-28 00:00:00 Completed [facility] HPV9 2022-03-28 00:00:00 Completed [facility] HPV9 2022-03-28 00:00:00 Completed [facility] HPV9 2022-03-28 00:00:00 Completed [facility] HPV9 2022-03-28 00:00:00 Completed [facility] HPV9 2022-03-28 00:00:00 Completed [facility] HPV9 2022-03-28 00:00:00 Completed [facility] HPV9 2022-03-28 00:00:00 Completed [facility] HPV9 2022-03-28 00:00:00 Completed [facility] HPV9 2022-03-28 00:00:00 Completed [facility] HPV9 2022-03-28 00:00:00 Completed [facility] HPV9 2022-03-28 00:00:00 Completed [facility] HPV9 2022-03-28 00:00:00 Completed [facility] HPV9 2022-03-28 00:00:00 Completed [facility] HPV9 2022-03-28 00:00:00 Completed [facility] HPV9 2022-03-28 00:00:00 Completed [facility] HPV9 2022-03-28 00:00:00 Completed [facility] HPV9 2022-03-28 00:00:00 Completed [facility] HPV9 2022-03-28 00:00:00 Completed [facility] HPV9 2022-03-28 00:00:00 Completed [facility] HPV9 2022-03-28 00:00:00 Completed [facility] HPV9 2022-03-28 00:00:00 Completed [facility] HPV9 2022-03-28 00:00:00 Completed [facility] Influenza Virus Vaccine Quad IM, Preserv and ABX Free 6 MO-64 YRS 2022-02-22 00:00:00 Completed [facility] Influenza Virus Vaccine Quad IM, Preserv and ABX Free 6 MO-64 YRS 2022-02-22 00:00:00 Completed [facility] Influenza Virus Vaccine Quad IM, Preserv and ABX Free 6 MO-64 YRS 2022-02-22 00:00:00 Completed [facility] Influenza Virus Vaccine Quad IM, Preserv and ABX Free 6 MO-64 YRS 2022-02-22 00:00:00 Completed [facility] Influenza Virus Vaccine Quad IM, Preserv and ABX Free 6 MO-64 YRS 2022-02-22 00:00:00 Completed [facility] Influenza Virus Vaccine Quad IM, Preserv and ABX Free 6 MO-64 YRS 2022-02-22 00:00:00 Completed [facility] Influenza Virus Vaccine Quad IM, Preserv and ABX Free 6 MO-64 YRS 2022-02-22 00:00:00 Completed [facility] Influenza Virus Vaccine Quad IM, Preserv and ABX Free 6 MO-64 YRS 2022-02-22 00:00:00 Completed [facility] Influenza Virus Vaccine Quad IM, Preserv and ABX Free 6 MO-64 YRS 2022-02-22 00:00:00 Completed [facility] Influenza Virus Vaccine Quad IM, Preserv and ABX Free 6 MO-64 YRS 2022-02-22 00:00:00 Completed [facility] Influenza Virus Vaccine Quad IM, Preserv and ABX Free 6 MO-64 YRS 2022-02-22 00:00:00 Completed [facility] Influenza Virus Vaccine Quad IM, Preserv and ABX Free 6 MO-64 YRS 2022-02-22 00:00:00 Completed [facility] Influenza Virus Vaccine Quad IM, Preserv and ABX Free 6 MO-64 YRS 2022-02-22 00:00:00 Completed [facility] Influenza Virus Vaccine Quad IM, Preserv and ABX Free 6 MO-64 YRS 2022-02-22 00:00:00 Completed [facility] Influenza Virus Vaccine Quad IM, Preserv and ABX Free 6 MO-64 YRS 2022-02-22 00:00:00 Completed [facility] Influenza Virus Vaccine Quad IM, Preserv and ABX Free 6 MO-64 YRS 2022-02-22 00:00:00 Completed [facility] Influenza Virus Vaccine Quad IM, Preserv and ABX Free 6 MO-64 YRS 2022-02-22 00:00:00 Completed [facility] Influenza Virus Vaccine Quad IM, Preserv and ABX Free 6 MO-64 YRS 2022-02-22 00:00:00 Completed [facility] Influenza Virus Vaccine Quad IM, Preserv and ABX Free 6 MO-64 YRS 2022-02-22 00:00:00 Completed [facility] Influenza Virus Vaccine Quad IM, Preserv and ABX Free 6 MO-64 YRS 2022-02-22 00:00:00 Completed [facility] Influenza Virus Vaccine Quad IM, Preserv and ABX Free 6 MO-64 YRS 2022-02-22 00:00:00 Completed [facility] Influenza Virus Vaccine Quad IM, Preserv and ABX Free 6 MO-64 YRS 2022-02-22 00:00:00 Completed [facility] Influenza Virus Vaccine Quad IM, Preserv and ABX Free 6 MO-64 YRS 2022-02-22 00:00:00 Completed [facility] Influenza Virus Vaccine Quad IM, Preserv and ABX Free 6 MO-64 YRS 2022-02-22 00:00:00 Completed [facility] Influenza Virus Vaccine Quad IM, Preserv and ABX Free 6 MO-64 YRS 2022-02-22 00:00:00 Completed [facility] Influenza Virus Vaccine Quad IM, Preserv and ABX Free 6 MO-64 YRS 2022-02-22 00:00:00 Completed [facility] Influenza Virus Vaccine Quad IM, Preserv and ABX Free 6 MO-64 YRS 2022-02-22 00:00:00 Completed [facility] Influenza Virus Vaccine Quad IM, Preserv and ABX Free 6 MO-64 YRS 2022-02-22 00:00:00 Completed [facility] Influenza Virus Vaccine Quad IM, Preserv and ABX Free 6 MO-64 YRS 2022-02-22 00:00:00 Completed [facility] Influenza Virus Vaccine Quad IM, Preserv and ABX Free 6 MO-64 YRS 2022-02-22 00:00:00 Completed [facility] Influenza Virus Vaccine Quad IM, Preserv and ABX Free 6 MO-64 YRS 2022-02-22 00:00:00 Completed [facility] Influenza Virus Vaccine Quad IM, Preserv and ABX Free 6 MO-64 YRS 2022-02-22 00:00:00 Completed [facility] Influenza Virus Vaccine Quad IM, Preserv and ABX Free 6 MO-64 YRS 2022-02-22 00:00:00 Completed [facility] Influenza Virus Vaccine Quad IM, Preserv and ABX Free 6 MO-64 YRS 2022-02-22 00:00:00 Completed [facility] Influenza Virus Vaccine Quad IM, Preserv and ABX Free 6 MO-64 YRS 2022-02-22 00:00:00 Completed [facility] Influenza Virus Vaccine Quad IM, Preserv and ABX Free 6 MO-64 YRS 2022-02-22 00:00:00 Completed [facility] Influenza Virus Vaccine Quad IM, Preserv and ABX Free 6 MO-64 YRS 2022-02-22 00:00:00 Completed [facility] Influenza Virus Vaccine Quad IM, Preserv and ABX Free 6 MO-64 YRS 2022-02-22 00:00:00 Completed [facility] Influenza Virus Vaccine Quad IM, Preserv and ABX Free 6 MO-64 YRS 2022-02-22 00:00:00 Completed [facility] Influenza Virus Vaccine Quad IM, Preserv and ABX Free 6 MO-64 YRS 2022-02-22 00:00:00 Completed [facility] Influenza Virus Vaccine Quad IM, Preserv and ABX Free 6 MO-64 YRS 2022-02-22 00:00:00 Completed [facility] Influenza Virus Vaccine Quad IM, Preserv and ABX Free 6 MO-64 YRS 2022-02-22 00:00:00 Completed [facility] Influenza Virus Vaccine Quad IM, Preserv and ABX Free 6 MO-64 YRS 2022-02-22 00:00:00 Completed [facility] Influenza Virus Vaccine Quad IM, Preserv and ABX Free 6 MO-64 YRS 2022-02-22 00:00:00 Completed [facility] Influenza Virus Vaccine Quad IM, Preserv and ABX Free 6 MO-64 YRS 2022-02-22 00:00:00 Completed [facility] Influenza Virus Vaccine Quad IM, Preserv and ABX Free 6 MO-64 YRS 2022-02-22 00:00:00 Completed [facility] Influenza Virus Vaccine Quad IM, Preserv and ABX Free 6 MO-64 YRS 2022-02-22 00:00:00 Completed [facility] Influenza Virus Vaccine Quad IM, Preserv and ABX Free 6 MO-64 YRS 2022-02-22 00:00:00 Completed [facility] Influenza Virus Vaccine Quad IM, Preserv and ABX Free 6 MO-64 YRS (FLUCELVAX) 2022-02-22 00:00:00 Completed [facility] Influenza Virus Vaccine Quad IM, Preserv and ABX Free 6 MO-64 YRS (FLUCELVAX) 2022-02-22 00:00:00 Completed [facility] Influenza Virus Vaccine Quad IM, Preserv and ABX Free 6 MO-64 YRS 2022-02-22 00:00:00 Completed [facility] Influenza Virus Vaccine Quad IM, Preserv and ABX Free 6 MO-64 YRS 2022-02-22 00:00:00 Completed [facility] Influenza Virus Vaccine Quad IM, Preserv and ABX Free 6 MO-64 YRS 2022-02-22 00:00:00 Completed [facility] Influenza Virus Vaccine Quad IM, Preserv and ABX Free 6 MO-64 YRS 2022-02-22 00:00:00 Completed [facility] Influenza Virus Vaccine Quad IM, Preserv and ABX Free 6 MO-64 YRS 2022-02-22 00:00:00 Completed [facility] Influenza Virus Vaccine Quad IM, Preserv and ABX Free 6 MO-64 YRS 2022-02-22 00:00:00 Completed [facility] Influenza Virus Vaccine Quad IM, Preserv and ABX Free 6 MO-64 YRS 2022-02-22 00:00:00 Completed [facility] Influenza Virus Vaccine Quad IM, Preserv and ABX Free 6 MO-64 YRS 2022-02-22 00:00:00 Completed [facility] Influenza Virus Vaccine Quad IM, Preserv and ABX Free 6 MO-64 YRS 2022-02-22 00:00:00 Completed [facility] Influenza Virus Vaccine Quad IM, Preserv and ABX Free 6 MO-64 YRS 2022-02-22 00:00:00 Completed [facility] Influenza Virus Vaccine Quad IM, Preserv and ABX Free 6 MO-64 YRS 2022-02-22 00:00:00 Completed [facility] Influenza Virus Vaccine Quad IM, Preserv and ABX Free 6 MO-64 YRS 2022-02-22 00:00:00 Completed [facility] Influenza Virus Vaccine Quad IM, Preserv and ABX Free 6 MO-64 YRS 2022-02-22 00:00:00 Completed [facility] Influenza Virus Vaccine Quad IM, Preserv and ABX Free 6 MO-64 YRS 2022-02-22 00:00:00 Completed [facility] Influenza Virus Vaccine Quad IM, Preserv and ABX Free 6 MO-64 YRS 2022-02-22 00:00:00 Completed [facility] Influenza Virus Vaccine Quad IM, Preserv and ABX Free 6 MO-64 YRS 2022-02-22 00:00:00 Completed [facility] Influenza Virus Vaccine Quad IM, Preserv and ABX Free 6 MO-64 YRS 2022-02-22 00:00:00 Completed [facility] Influenza Virus Vaccine Quad IM, Preserv and ABX Free 6 MO-64 YRS 2022-02-22 00:00:00 Completed [facility] Influenza Virus Vaccine Quad IM, Preserv and ABX Free 6 MO-64 YRS 2022-02-22 00:00:00 Completed [facility] Influenza Virus Vaccine Quad IM, Preserv and ABX Free 6 MO-64 YRS 2022-02-22 00:00:00 Completed [facility] Influenza Virus Vaccine Quad IM, Preserv and ABX Free 6 MO-64 YRS 2022-02-22 00:00:00 Completed [facility] Influenza Virus Vaccine Quad IM, Preserv and ABX Free 6 MO-64 YRS 2022-02-22 00:00:00 Completed [facility] Influenza Virus Vaccine Quad IM, Preserv and ABX Free 6 MO-64 YRS 2022-02-22 00:00:00 Completed [facility] Influenza Virus Vaccine Quad IM, Preserv and ABX Free 6 MO-64 YRS 2022-02-22 00:00:00 Completed [facility] Influenza Virus Vaccine Quad IM, Preserv and ABX Free 6 MO-64 YRS 2022-02-22 00:00:00 Completed [facility] Influenza Virus Vaccine Quad IM, Preserv and ABX Free 6 MO-64 YRS 2022-02-22 00:00:00 Completed [facility] Influenza Virus Vaccine Quad IM, Preserv and ABX Free 6 MO-64 YRS 2022-02-22 00:00:00 Completed [facility] Influenza Virus Vaccine Quad IM, Preserv and ABX Free 6 MO-64 YRS 2022-02-22 00:00:00 Completed [facility] HPV9 2021-12-30 00:00:00 Completed [facility] HPV9 2021-12-30 00:00:00 Completed [facility] HPV9 2021-12-30 00:00:00 Completed [facility] HPV9 2021-12-30 00:00:00 Completed [facility] HPV9 2021-12-30 00:00:00 Completed [facility] HPV9 2021-12-30 00:00:00 Completed [facility] HPV9 2021-12-30 00:00:00 Completed [facility] HPV9 2021-12-30 00:00:00 Completed [facility] HPV9 2021-12-30 00:00:00 Completed [facility] HPV9 2021-12-30 00:00:00 Completed [facility] HPV9 2021-12-30 00:00:00 Completed [facility] HPV9 2021-12-30 00:00:00 Completed [facility] HPV9 2021-12-30 00:00:00 Completed [facility] HPV9 2021-12-30 00:00:00 Completed [facility] HPV9 2021-12-30 00:00:00 Completed [facility] HPV9 2021-12-30 00:00:00 Completed [facility] HPV9 2021-12-30 00:00:00 Completed [facility] HPV9 2021-12-30 00:00:00 Completed [facility] HPV9 2021-12-30 00:00:00 Completed [facility] HPV9 2021-12-30 00:00:00 Completed [facility] HPV9 2021-12-30 00:00:00 Completed [facility] HPV9 2021-12-30 00:00:00 Completed [facility] HPV9 2021-12-30 00:00:00 Completed [facility] HPV9 2021-12-30 00:00:00 Completed [facility] HPV9 2021-12-30 00:00:00 Completed [facility] HPV9 2021-12-30 00:00:00 Completed [facility] HPV9 2021-12-30 00:00:00 Completed [facility] HPV9 2021-12-30 00:00:00 Completed [facility] HPV9 2021-12-30 00:00:00 Completed [facility] HPV9 2021-12-30 00:00:00 Completed [facility] HPV9 2021-12-30 00:00:00 Completed [facility] HPV9 2021-12-30 00:00:00 Completed [facility] HPV9 2021-12-30 00:00:00 Completed [facility] HPV9 2021-12-30 00:00:00 Completed [facility] HPV9 2021-12-30 00:00:00 Completed [facility] HPV9 2021-12-30 00:00:00 Completed [facility] HPV9 2021-12-30 00:00:00 Completed [facility] HPV9 2021-12-30 00:00:00 Completed [facility] HPV9 2021-12-30 00:00:00 Completed [facility] HPV9 2021-12-30 00:00:00 Completed [facility] HPV9 2021-12-30 00:00:00 Completed [facility] HPV9 2021-12-30 00:00:00 Completed [facility] HPV9 2021-12-30 00:00:00 Completed [facility] HPV9 2021-12-30 00:00:00 Completed [facility] HPV9 2021-12-30 00:00:00 Completed [facility] HPV9 2021-12-30 00:00:00 Completed [facility] HPV9 2021-12-30 00:00:00 Completed [facility] HPV9 2021-12-30 00:00:00 Completed [facility] HPV9 2021-12-30 00:00:00 Completed [facility] HPV9 2021-12-30 00:00:00 Completed [facility] HPV9 2021-12-30 00:00:00 Completed [facility] HPV9 2021-12-30 00:00:00 Completed [facility] HPV9 2021-12-30 00:00:00 Completed [facility] HPV9 2021-12-30 00:00:00 Completed [facility] HPV9 2021-12-30 00:00:00 Completed [facility] HPV9 2021-12-30 00:00:00 Completed [facility] HPV9 2021-12-30 00:00:00 Completed [facility] HPV9 2021-12-30 00:00:00 Completed [facility] HPV9 2021-12-30 00:00:00 Completed [facility] HPV9 2021-12-30 00:00:00 Completed [facility] HPV9 2021-12-30 00:00:00 Completed [facility] HPV9 2021-12-30 00:00:00 Completed [facility] HPV9 2021-12-30 00:00:00 Completed [facility] HPV9 2021-12-30 00:00:00 Completed [facility] HPV9 2021-12-30 00:00:00 Completed [facility] HPV9 2021-12-30 00:00:00 Completed [facility] HPV9 2021-12-30 00:00:00 Completed [facility] HPV9 2021-12-30 00:00:00 Completed [facility] HPV9 2021-12-30 00:00:00 Completed [facility] HPV9 2021-12-30 00:00:00 Completed [facility] HPV9 2021-12-30 00:00:00 Completed [facility] HPV9 2021-12-30 00:00:00 Completed [facility] HPV9 2021-12-30 00:00:00 Completed [facility] HPV9 2021-12-30 00:00:00 Completed [facility] HPV9 2021-12-30 00:00:00 Completed [facility] HPV9 2021-12-30 00:00:00 Completed [facility] HPV9 2021-12-30 00:00:00 Completed [facility] HPV9 2021-12-30 00:00:00 Completed [facility] HPV9 2021-12-30 00:00:00 Completed [facility] HPV9 2021-12-30 00:00:00 Completed [facility] HPV9 2021-12-30 00:00:00 Completed [facility] HPV9 2021-12-30 00:00:00 Completed [facility] HPV9 2021-12-30 00:00:00 Completed [facility] HPV9 2021-12-30 00:00:00 Completed [facility] HPV9 2021-12-30 00:00:00 Completed [facility] HPV9 2021-12-30 00:00:00 Completed [facility] HPV9 2021-12-30 00:00:00 Completed [facility] HPV9 2021-12-30 00:00:00 Completed [facility] HPV9 2021-12-30 00:00:00 Completed [facility] HPV9 2021-12-30 00:00:00 Completed [facility] HPV9 2021-12-30 00:00:00 Completed [facility] HPV9 2021-12-30 00:00:00 Completed [facility] HPV9 2021-12-30 00:00:00 Completed [facility] HPV9 2021-12-30 00:00:00 Completed [facility] SARS-COV-2 COVID-19 VACCINE - (MODERNA) 2020-09-17 00:00:00 Completed [facility] SARS-COV-2 COVID-19 VACCINE - (MODERNA) 2020-09-17 00:00:00 Completed [facility] SARS-COV-2 COVID-19 VACCINE - (MODERNA) 2020-09-17 00:00:00 Completed [facility] SARS-COV-2 COVID-19 VACCINE - (MODERNA) 2020-09-17 00:00:00 Completed [facility] SARS-COV-2 COVID-19 VACCINE - (MODERNA) 2020-09-17 00:00:00 Completed [facility] SARS-COV-2 COVID-19 VACCINE - (MODERNA) 2020-09-17 00:00:00 Completed [facility] SARS-COV-2 COVID-19 VACCINE - (MODERNA) 2020-09-17 00:00:00 Completed [facility] SARS-COV-2 COVID-19 VACCINE - (MODERNA) 2020-09-17 00:00:00 Completed [facility] SARS-COV-2 COVID-19 VACCINE - (MODERNA) 2020-09-17 00:00:00 Completed [facility] SARS-COV-2 COVID-19 VACCINE - (MODERNA) 2020-09-17 00:00:00 Completed [facility] SARS-COV-2 COVID-19 VACCINE - (MODERNA) 2020-09-17 00:00:00 Completed [facility] SARS-COV-2 COVID-19 VACCINE - (MODERNA) 2020-09-17 00:00:00 Completed [facility] SARS-COV-2 COVID-19 VACCINE - (MODERNA) 2020-09-17 00:00:00 Completed [facility] SARS-COV-2 COVID-19 VACCINE - (MODERNA) 2020-09-17 00:00:00 Completed [facility] SARS-COV-2 COVID-19 VACCINE - (MODERNA) 2020-09-17 00:00:00 Completed [facility] SARS-COV-2 COVID-19 VACCINE - (MODERNA) 2020-09-17 00:00:00 Completed [facility] SARS-COV-2 COVID-19 VACCINE - (MODERNA) 2020-09-17 00:00:00 Completed [facility] SARS-COV-2 COVID-19 VACCINE - (MODERNA) 2020-09-17 00:00:00 Completed [facility] SARS-COV-2 COVID-19 VACCINE - (MODERNA) 2020-09-17 00:00:00 Completed [facility] SARS-COV-2 COVID-19 VACCINE - (MODERNA) 2020-09-17 00:00:00 Completed [facility] SARS-COV-2 COVID-19 VACCINE - (MODERNA) 2020-09-17 00:00:00 Completed [facility] SARS-COV-2 COVID-19 VACCINE - (MODERNA) 2020-09-17 00:00:00 Completed [facility] SARS-COV-2 COVID-19 VACCINE - (MODERNA) 2020-09-17 00:00:00 Completed [facility] SARS-COV-2 COVID-19 VACCINE - (MODERNA) 2020-09-17 00:00:00 Completed [facility] SARS-COV-2 COVID-19 VACCINE - (MODERNA) 2020-09-17 00:00:00 Completed [facility] SARS-COV-2 COVID-19 VACCINE - (MODERNA) 2020-09-17 00:00:00 Completed [facility] SARS-COV-2 COVID-19 VACCINE - (MODERNA) 2020-09-17 00:00:00 Completed [facility] SARS-COV-2 COVID-19 VACCINE - (MODERNA) 2020-09-17 00:00:00 Completed [facility] SARS-COV-2 COVID-19 VACCINE - (MODERNA) 2020-09-17 00:00:00 Completed [facility] SARS-COV-2 COVID-19 VACCINE - (MODERNA) 2020-09-17 00:00:00 Completed [facility] SARS-COV-2 COVID-19 VACCINE - (MODERNA) 2020-09-17 00:00:00 Completed [facility] SARS-COV-2 COVID-19 VACCINE - (MODERNA) 2020-09-17 00:00:00 Completed [facility] SARS-COV-2 COVID-19 VACCINE - (MODERNA) 2020-09-17 00:00:00 Completed [facility] SARS-COV-2 COVID-19 VACCINE - (MODERNA) 2020-09-17 00:00:00 Completed [facility] SARS-COV-2 COVID-19 VACCINE - (MODERNA) 2020-09-17 00:00:00 Completed [facility] SARS-COV-2 COVID-19 VACCINE - (MODERNA) 2020-09-17 00:00:00 Completed [facility] SARS-COV-2 COVID-19 VACCINE - (MODERNA) 2020-09-17 00:00:00 Completed [facility] SARS-COV-2 COVID-19 VACCINE - (MODERNA) 2020-09-17 00:00:00 Completed [facility] SARS-COV-2 COVID-19 VACCINE - (MODERNA) 2020-09-17 00:00:00 Completed [facility] SARS-COV-2 COVID-19 VACCINE - (MODERNA) 2020-09-17 00:00:00 Completed [facility] SARS-COV-2 COVID-19 VACCINE - (MODERNA) 2020-09-17 00:00:00 Completed [facility] SARS-COV-2 COVID-19 VACCINE - (MODERNA) 2020-09-17 00:00:00 Completed [facility] SARS-COV-2 COVID-19 VACCINE - (MODERNA) 2020-09-17 00:00:00 Completed [facility] SARS-COV-2 COVID-19 VACCINE - (MODERNA) 2020-09-17 00:00:00 Completed [facility] SARS-COV-2 COVID-19 VACCINE - (MODERNA) 2020-09-17 00:00:00 Completed [facility] SARS-COV-2 COVID-19 VACCINE - (MODERNA) 2020-09-17 00:00:00 Completed [facility] SARS-COV-2 COVID-19 VACCINE - (MODERNA) 2020-09-17 00:00:00 Completed [facility] SARS-COV-2 COVID-19 VACCINE - (MODERNA) 2020-09-17 00:00:00 Completed [facility] SARS-COV-2 COVID-19 VACCINE - (MODERNA) 2020-09-17 00:00:00 Completed [facility] SARS-COV-2 COVID-19 VACCINE - (MODERNA) 2020-09-17 00:00:00 Completed [facility] SARS-COV-2 COVID-19 VACCINE - (MODERNA) 2020-09-17 00:00:00 Completed [facility] SARS-COV-2 COVID-19 VACCINE - (MODERNA) 2020-09-17 00:00:00 Completed [facility] SARS-COV-2 COVID-19 VACCINE - (MODERNA) 2020-09-17 00:00:00 Completed [facility] SARS-COV-2 COVID-19 VACCINE - (MODERNA) 2020-09-17 00:00:00 Completed [facility] SARS-COV-2 COVID-19 VACCINE - (MODERNA) 2020-09-17 00:00:00 Completed [facility] SARS-COV-2 COVID-19 VACCINE - (MODERNA) 2020-09-17 00:00:00 Completed [facility] SARS-COV-2 COVID-19 VACCINE - (MODERNA) 2020-09-17 00:00:00 Completed [facility] SARS-COV-2 COVID-19 VACCINE - (MODERNA) 2020-09-17 00:00:00 Completed [facility] SARS-COV-2 COVID-19 VACCINE - (MODERNA) 2020-09-17 00:00:00 Completed [facility] SARS-COV-2 COVID-19 VACCINE - (MODERNA) 2020-09-17 00:00:00 Completed [facility] SARS-COV-2 COVID-19 VACCINE - (MODERNA) 2020-09-17 00:00:00 Completed [facility] SARS-COV-2 COVID-19 VACCINE - (MODERNA) 2020-09-17 00:00:00 Completed [facility] SARS-COV-2 COVID-19 VACCINE - (MODERNA) 2020-09-17 00:00:00 Completed [facility] SARS-COV-2 COVID-19 VACCINE - (MODERNA) 2020-09-17 00:00:00 Completed [facility] SARS-COV-2 COVID-19 VACCINE - (MODERNA) 2020-08-07 00:00:00 Completed [facility] SARS-COV-2 COVID-19 VACCINE - (MODERNA) 2020-08-07 00:00:00 Completed [facility] SARS-COV-2 COVID-19 VACCINE - (MODERNA) 2020-08-07 00:00:00 Completed [facility] SARS-COV-2 COVID-19 VACCINE - (MODERNA) 2020-08-07 00:00:00 Completed [facility] SARS-COV-2 COVID-19 VACCINE - (MODERNA) 2020-08-07 00:00:00 Completed [facility] SARS-COV-2 COVID-19 VACCINE - (MODERNA) 2020-08-07 00:00:00 Completed [facility] SARS-COV-2 COVID-19 VACCINE - (MODERNA) 2020-08-07 00:00:00 Completed [facility] SARS-COV-2 COVID-19 VACCINE - (MODERNA) 2020-08-07 00:00:00 Completed [facility] SARS-COV-2 COVID-19 VACCINE - (MODERNA) 2020-08-07 00:00:00 Completed [facility] SARS-COV-2 COVID-19 VACCINE - (MODERNA) 2020-08-07 00:00:00 Completed [facility] SARS-COV-2 COVID-19 VACCINE - (MODERNA) 2020-08-07 00:00:00 Completed [facility] SARS-COV-2 COVID-19 VACCINE - (MODERNA) 2020-08-07 00:00:00 Completed [facility] SARS-COV-2 COVID-19 VACCINE - (MODERNA) 2020-08-07 00:00:00 Completed [facility] SARS-COV-2 COVID-19 VACCINE - (MODERNA) 2020-08-07 00:00:00 Completed [facility] SARS-COV-2 COVID-19 VACCINE - (MODERNA) 2020-08-07 00:00:00 Completed [facility] SARS-COV-2 COVID-19 VACCINE - (MODERNA) 2020-08-07 00:00:00 Completed [facility] SARS-COV-2 COVID-19 VACCINE - (MODERNA) 2020-08-07 00:00:00 Completed [facility] SARS-COV-2 COVID-19 VACCINE - (MODERNA) 2020-08-07 00:00:00 Completed [facility] SARS-COV-2 COVID-19 VACCINE - (MODERNA) 2020-08-07 00:00:00 Completed [facility] SARS-COV-2 COVID-19 VACCINE - (MODERNA) 2020-08-07 00:00:00 Completed [facility] SARS-COV-2 COVID-19 VACCINE - (MODERNA) 2020-08-07 00:00:00 Completed [facility] SARS-COV-2 COVID-19 VACCINE - (MODERNA) 2020-08-07 00:00:00 Completed [facility] SARS-COV-2 COVID-19 VACCINE - (MODERNA) 2020-08-07 00:00:00 Completed [facility] SARS-COV-2 COVID-19 VACCINE - (MODERNA) 2020-08-07 00:00:00 Completed [facility] SARS-COV-2 COVID-19 VACCINE - (MODERNA) 2020-08-07 00:00:00 Completed [facility] SARS-COV-2 COVID-19 VACCINE - (MODERNA) 2020-08-07 00:00:00 Completed [facility] SARS-COV-2 COVID-19 VACCINE - (MODERNA) 2020-08-07 00:00:00 Completed [facility] SARS-COV-2 COVID-19 VACCINE - (MODERNA) 2020-08-07 00:00:00 Completed [facility] SARS-COV-2 COVID-19 VACCINE - (MODERNA) 2020-08-07 00:00:00 Completed [facility] SARS-COV-2 COVID-19 VACCINE - (MODERNA) 2020-08-07 00:00:00 Completed [facility] SARS-COV-2 COVID-19 VACCINE - (MODERNA) 2020-08-07 00:00:00 Completed [facility] SARS-COV-2 COVID-19 VACCINE - (MODERNA) 2020-08-07 00:00:00 Completed [facility] SARS-COV-2 COVID-19 VACCINE - (MODERNA) 2020-08-07 00:00:00 Completed [facility] SARS-COV-2 COVID-19 VACCINE - (MODERNA) 2020-08-07 00:00:00 Completed [facility] SARS-COV-2 COVID-19 VACCINE - (MODERNA) 2020-08-07 00:00:00 Completed [facility] SARS-COV-2 COVID-19 VACCINE - (MODERNA) 2020-08-07 00:00:00 Completed [facility] SARS-COV-2 COVID-19 VACCINE - (MODERNA) 2020-08-07 00:00:00 Completed [facility] SARS-COV-2 COVID-19 VACCINE - (MODERNA) 2020-08-07 00:00:00 Completed [facility] SARS-COV-2 COVID-19 VACCINE - (MODERNA) 2020-08-07 00:00:00 Completed [facility] SARS-COV-2 COVID-19 VACCINE - (MODERNA) 2020-08-07 00:00:00 Completed [facility] SARS-COV-2 COVID-19 VACCINE - (MODERNA) 2020-08-07 00:00:00 Completed [facility] SARS-COV-2 COVID-19 VACCINE - (MODERNA) 2020-08-07 00:00:00 Completed [facility] SARS-COV-2 COVID-19 VACCINE - (MODERNA) 2020-08-07 00:00:00 Completed [facility] SARS-COV-2 COVID-19 VACCINE - (MODERNA) 2020-08-07 00:00:00 Completed [facility] SARS-COV-2 COVID-19 VACCINE - (MODERNA) 2020-08-07 00:00:00 Completed [facility] SARS-COV-2 COVID-19 VACCINE - (MODERNA) 2020-08-07 00:00:00 Completed [facility] SARS-COV-2 COVID-19 VACCINE - (MODERNA) 2020-08-07 00:00:00 Completed [facility] SARS-COV-2 COVID-19 VACCINE - (MODERNA) 2020-08-07 00:00:00 Completed [facility] SARS-COV-2 COVID-19 VACCINE - (MODERNA) 2020-08-07 00:00:00 Completed [facility] SARS-COV-2 COVID-19 VACCINE - (MODERNA) 2020-08-07 00:00:00 Completed [facility] SARS-COV-2 COVID-19 VACCINE - (MODERNA) 2020-08-07 00:00:00 Completed [facility] SARS-COV-2 COVID-19 VACCINE - (MODERNA) 2020-08-07 00:00:00 Completed [facility] SARS-COV-2 COVID-19 VACCINE - (MODERNA) 2020-08-07 00:00:00 Completed [facility] SARS-COV-2 COVID-19 VACCINE - (MODERNA) 2020-08-07 00:00:00 Completed [facility] SARS-COV-2 COVID-19 VACCINE - (MODERNA) 2020-08-07 00:00:00 Completed [facility] SARS-COV-2 COVID-19 VACCINE - (MODERNA) 2020-08-07 00:00:00 Completed [facility] SARS-COV-2 COVID-19 VACCINE - (MODERNA) 2020-08-07 00:00:00 Completed [facility] SARS-COV-2 COVID-19 VACCINE - (MODERNA) 2020-08-07 00:00:00 Completed [facility] SARS-COV-2 COVID-19 VACCINE - (MODERNA) 2020-08-07 00:00:00 Completed [facility] SARS-COV-2 COVID-19 VACCINE - (MODERNA) 2020-08-07 00:00:00 Completed [facility] SARS-COV-2 COVID-19 VACCINE - (MODERNA) 2020-08-07 00:00:00 Completed [facility] SARS-COV-2 COVID-19 VACCINE - (MODERNA) 2020-08-07 00:00:00 Completed [facility] SARS-COV-2 COVID-19 VACCINE - (MODERNA) 2020-08-07 00:00:00 Completed [facility] SARS-COV-2 COVID-19 VACCINE - (MODERNA) 2020-08-07 00:00:00 Completed [facility] SARS-COV-2 COVID-19 MODERNA 12+ YRS VACCINE 2020-06-13 00:00:00 Completed [facility] SARS-COV-2 COVID-19 MODERNA 12+ YRS VACCINE 2020-06-13 00:00:00 Completed [facility] SARS-COV-2 COVID-19 MODERNA 12+ YRS VACCINE 2020-06-13 00:00:00 Completed [facility] SARS-COV-2 COVID-19 MODERNA 12+ YRS VACCINE 2020-06-13 00:00:00 Completed [facility] SARS-COV-2 COVID-19 MODERNA 12+ YRS VACCINE 2020-06-13 00:00:00 Completed [facility] SARS-COV-2 COVID-19 MODERNA 12+ YRS VACCINE 2020-06-13 00:00:00 Completed [facility] SARS-COV-2 COVID-19 MODERNA 12+ YRS VACCINE 2020-06-13 00:00:00 Completed [facility] SARS-COV-2 COVID-19 MODERNA 12+ YRS VACCINE 2020-06-13 00:00:00 Completed [facility] SARS-COV-2 COVID-19 MODERNA 12+ YRS VACCINE 2020-06-13 00:00:00 Completed [facility] SARS-COV-2 COVID-19 MODERNA 12+ YRS VACCINE 2020-06-13 00:00:00 Completed [facility] SARS-COV-2 COVID-19 MODERNA 12+ YRS VACCINE 2020-06-13 00:00:00 Completed [facility] SARS-COV-2 COVID-19 MODERNA 12+ YRS VACCINE 2020-06-13 00:00:00 Completed [facility] SARS-COV-2 COVID-19 MODERNA 12+ YRS VACCINE 2020-06-13 00:00:00 Completed [facility] SARS-COV-2 COVID-19 MODERNA 12+ YRS VACCINE 2020-06-13 00:00:00 Completed [facility] SARS-COV-2 COVID-19 MODERNA 12+ YRS VACCINE 2020-06-13 00:00:00 Completed [facility] SARS-COV-2 COVID-19 MODERNA 12+ YRS VACCINE 2020-06-13 00:00:00 Completed [facility] SARS-COV-2 COVID-19 MODERNA 12+ YRS VACCINE 2020-06-13 00:00:00 Completed [facility] SARS-COV-2 COVID-19 MODERNA 12+ YRS VACCINE 2020-06-13 00:00:00 Completed [facility] SARS-COV-2 COVID-19 MODERNA 12+ YRS VACCINE 2020-06-13 00:00:00 Completed [facility] SARS-COV-2 COVID-19 MODERNA 12+ YRS VACCINE 2020-06-13 00:00:00 Completed [facility] SARS-COV-2 COVID-19 MODERNA 12+ YRS VACCINE 2020-06-13 00:00:00 Completed [facility] SARS-COV-2 COVID-19 MODERNA 12+ YRS VACCINE 2020-06-13 00:00:00 Completed [facility] SARS-COV-2 COVID-19 MODERNA 12+ YRS VACCINE 2020-06-13 00:00:00 Completed [facility] SARS-COV-2 COVID-19 MODERNA 12+ YRS VACCINE 2020-06-13 00:00:00 Completed [facility] SARS-COV-2 COVID-19 MODERNA 12+ YRS VACCINE 2020-06-13 00:00:00 Completed [facility] SARS-COV-2 COVID-19 MODERNA 12+ YRS VACCINE 2020-06-13 00:00:00 Completed [facility] SARS-COV-2 COVID-19 MODERNA 12+ YRS VACCINE 2020-06-13 00:00:00 Completed [facility] SARS-COV-2 COVID-19 MODERNA 12+ YRS VACCINE 2020-06-13 00:00:00 Completed [facility] SARS-COV-2 COVID-19 MODERNA 12+ YRS VACCINE 2020-06-13 00:00:00 Completed [facility] SARS-COV-2 COVID-19 MODERNA 12+ YRS VACCINE 2020-06-13 00:00:00 Completed [facility] SARS-COV-2 COVID-19 MODERNA 12+ YRS VACCINE 2020-06-13 00:00:00 Completed [facility] SARS-COV-2 COVID-19 MODERNA 12+ YRS VACCINE 2020-06-13 00:00:00 Completed [facility] SARS-COV-2 COVID-19 MODERNA 12+ YRS VACCINE 2020-06-13 00:00:00 Completed [facility] SARS-COV-2 COVID-19 MODERNA 12+ YRS VACCINE 2020-06-13 00:00:00 Completed [facility] SARS-COV-2 COVID-19 MODERNA 12+ YRS VACCINE 2020-06-13 00:00:00 Completed [facility] SARS-COV-2 COVID-19 MODERNA 12+ YRS VACCINE 2020-06-13 00:00:00 Completed [facility] SARS-COV-2 COVID-19 MODERNA 12+ YRS VACCINE 2020-06-13 00:00:00 Completed [facility] SARS-COV-2 COVID-19 MODERNA 12+ YRS VACCINE 2020-06-13 00:00:00 Completed [facility] SARS-COV-2 COVID-19 MODERNA 12+ YRS VACCINE 2020-06-13 00:00:00 Completed [facility] SARS-COV-2 COVID-19 MODERNA 12+ YRS VACCINE 2020-06-13 00:00:00 Completed [facility] SARS-COV-2 COVID-19 MODERNA 12+ YRS VACCINE 2020-06-13 00:00:00 Completed [facility] SARS-COV-2 COVID-19 MODERNA 12+ YRS VACCINE 2020-06-13 00:00:00 Completed [facility] SARS-COV-2 COVID-19 MODERNA 12+ YRS VACCINE 2020-06-13 00:00:00 Completed [facility] SARS-COV-2 COVID-19 MODERNA 12+ YRS VACCINE 2020-06-13 00:00:00 Completed [facility] SARS-COV-2 COVID-19 MODERNA 12+ YRS VACCINE 2020-06-13 00:00:00 Completed [facility] SARS-COV-2 COVID-19 MODERNA 12+ YRS VACCINE 2020-06-13 00:00:00 Completed [facility] SARS-COV-2 COVID-19 MODERNA 12+ YRS VACCINE 2020-06-13 00:00:00 Completed [facility] SARS-COV-2 COVID-19 MODERNA 12+ YRS VACCINE 2020-06-13 00:00:00 Completed [facility] SARS-COV-2 COVID-19 MODERNA 12+ YRS VACCINE 2020-06-13 00:00:00 Completed [facility] SARS-COV-2 COVID-19 MODERNA 12+ YRS VACCINE 2020-06-13 00:00:00 Completed [facility] SARS-COV-2 COVID-19 MODERNA 12+ YRS VACCINE 2020-06-13 00:00:00 Completed [facility] SARS-COV-2 COVID-19 MODERNA 12+ YRS VACCINE 2020-06-13 00:00:00 Completed [facility] SARS-COV-2 COVID-19 MODERNA 12+ YRS VACCINE 2020-06-13 00:00:00 Completed [facility] SARS-COV-2 COVID-19 MODERNA 12+ YRS VACCINE 2020-06-13 00:00:00 Completed [facility] SARS-COV-2 COVID-19 MODERNA 12+ YRS VACCINE 2020-06-13 00:00:00 Completed [facility] SARS-COV-2 COVID-19 MODERNA 12+ YRS VACCINE 2020-06-13 00:00:00 Completed [facility] SARS-COV-2 COVID-19 MODERNA 12+ YRS VACCINE 2020-06-13 00:00:00 Completed [facility] SARS-COV-2 COVID-19 MODERNA 12+ YRS VACCINE 2020-06-13 00:00:00 Completed [facility] SARS-COV-2 COVID-19 MODERNA 12+ YRS VACCINE 2020-06-13 00:00:00 Completed [facility] SARS-COV-2 COVID-19 MODERNA 12+ YRS VACCINE 2020-06-13 00:00:00 Completed [facility] SARS-COV-2 COVID-19 MODERNA 12+ YRS VACCINE 2020-06-13 00:00:00 Completed [facility] SARS-COV-2 COVID-19 MODERNA 12+ YRS VACCINE 2020-06-13 00:00:00 Completed [facility] SARS-COV-2 COVID-19 MODERNA 12+ YRS VACCINE 2020-06-13 00:00:00 Completed [facility] SARS-COV-2 COVID-19 MODERNA 12+ YRS VACCINE 2020-06-13 00:00:00 Completed [facility] SARS-COV-2 COVID-19 MODERNA 12+ YRS VACCINE 2020-06-13 00:00:00 Completed [facility] SARS-COV-2 COVID-19 MODERNA 12+ YRS VACCINE 2020-06-13 00:00:00 Completed [facility] SARS-COV-2 COVID-19 MODERNA 12+ YRS VACCINE 2020-06-13 00:00:00 Completed [facility] SARS-COV-2 COVID-19 MODERNA 12+ YRS VACCINE 2020-06-13 00:00:00 Completed [facility] SARS-COV-2 COVID-19 MODERNA 12+ YRS VACCINE 2020-06-13 00:00:00 Completed [facility] SARS-COV-2 COVID-19 MODERNA 12+ YRS VACCINE 2020-06-13 00:00:00 Completed [facility] SARS-COV-2 COVID-19 MODERNA 12+ YRS VACCINE 2020-06-13 00:00:00 Completed [facility] SARS-COV-2 COVID-19 MODERNA 12+ YRS VACCINE 2020-06-13 00:00:00 Completed [facility] SARS-COV-2 COVID-19 MODERNA 12+ YRS VACCINE 2020-06-13 00:00:00 Completed [facility] SARS-COV-2 COVID-19 MODERNA 12+ YRS VACCINE 2020-06-13 00:00:00 Completed [facility] SARS-COV-2 COVID-19 MODERNA 12+ YRS VACCINE 2020-06-13 00:00:00 Completed [facility] SARS-COV-2 COVID-19 MODERNA 12+ YRS VACCINE 2020-06-13 00:00:00 Completed [facility] SARS-COV-2 COVID-19 MODERNA 12+ YRS VACCINE 2020-06-13 00:00:00 Completed [facility] SARS-COV-2 COVID-19 MODERNA 12+ YRS VACCINE 2020-06-13 00:00:00 Completed [facility] SARS-COV-2 COVID-19 MODERNA 12+ YRS VACCINE 2020-06-13 00:00:00 Completed [facility] SARS-COV-2 COVID-19 MODERNA 12+ YRS VACCINE 2020-06-13 00:00:00 Completed [facility] SARS-COV-2 COVID-19 MODERNA 12+ YRS VACCINE 2020-06-13 00:00:00 Completed [facility] SARS-COV-2 COVID-19 MODERNA 12+ YRS VACCINE 2020-06-13 00:00:00 Completed [facility] SARS-COV-2 COVID-19 MODERNA 12+ YRS VACCINE 2020-06-13 00:00:00 Completed [facility] SARS-COV-2 COVID-19 MODERNA 12+ YRS VACCINE 2020-06-13 00:00:00 Completed [facility] SARS-COV-2 COVID-19 MODERNA 12+ YRS VACCINE 2020-06-13 00:00:00 Completed [facility] SARS-COV-2 COVID-19 MODERNA 12+ YRS VACCINE 2020-06-13 00:00:00 Completed [facility] SARS-COV-2 COVID-19 MODERNA 12+ YRS VACCINE 2020-06-13 00:00:00 Completed [facility] SARS-COV-2 COVID-19 MODERNA 12+ YRS VACCINE 2020-06-13 00:00:00 Completed [facility] SARS-COV-2 COVID-19 MODERNA 12+ YRS VACCINE 2020-06-13 00:00:00 Completed [facility] SARS-COV-2 COVID-19 MODERNA 12+ YRS VACCINE 2020-06-13 00:00:00 Completed [facility] SARS-COV-2 COVID-19 MODERNA 12+ YRS VACCINE 2020-06-13 00:00:00 Completed [facility] SARS-COV-2 COVID-19 MODERNA 12+ YRS VACCINE 2020-06-13 00:00:00 Completed [facility] SARS-COV-2 COVID-19 MODERNA 12+ YRS VACCINE 2020-06-13 00:00:00 Completed [facility] SARS-COV-2 COVID-19 MODERNA 12+ YRS VACCINE 2020-06-13 00:00:00 Completed [facility] SARS-COV-2 COVID-19 MODERNA 12+ YRS VACCINE 2020-05-30 00:00:00 Completed [facility] SARS-COV-2 COVID-19 MODERNA 12+ YRS VACCINE 2020-05-30 00:00:00 Completed [facility] SARS-COV-2 COVID-19 MODERNA 12+ YRS VACCINE 2020-05-30 00:00:00 Completed [facility] SARS-COV-2 COVID-19 MODERNA 12+ YRS VACCINE 2020-05-30 00:00:00 Completed [facility] SARS-COV-2 COVID-19 MODERNA 12+ YRS VACCINE 2020-05-30 00:00:00 Completed [facility] SARS-COV-2 COVID-19 MODERNA 12+ YRS VACCINE 2020-05-30 00:00:00 Completed [facility] SARS-COV-2 COVID-19 MODERNA 12+ YRS VACCINE 2020-05-30 00:00:00 Completed [facility] SARS-COV-2 COVID-19 MODERNA 12+ YRS VACCINE 2020-05-30 00:00:00 Completed [facility] SARS-COV-2 COVID-19 MODERNA 12+ YRS VACCINE 2020-05-30 00:00:00 Completed [facility] SARS-COV-2 COVID-19 MODERNA 12+ YRS VACCINE 2020-05-30 00:00:00 Completed [facility] SARS-COV-2 COVID-19 MODERNA 12+ YRS VACCINE 2020-05-30 00:00:00 Completed [facility] SARS-COV-2 COVID-19 MODERNA 12+ YRS VACCINE 2020-05-30 00:00:00 Completed [facility] SARS-COV-2 COVID-19 MODERNA 12+ YRS VACCINE 2020-05-30 00:00:00 Completed [facility] SARS-COV-2 COVID-19 MODERNA 12+ YRS VACCINE 2020-05-30 00:00:00 Completed [facility] SARS-COV-2 COVID-19 MODERNA 12+ YRS VACCINE 2020-05-30 00:00:00 Completed [facility] SARS-COV-2 COVID-19 MODERNA 12+ YRS VACCINE 2020-05-30 00:00:00 Completed [facility] SARS-COV-2 COVID-19 MODERNA 12+ YRS VACCINE 2020-05-30 00:00:00 Completed [facility] SARS-COV-2 COVID-19 MODERNA 12+ YRS VACCINE 2020-05-30 00:00:00 Completed [facility] SARS-COV-2 COVID-19 MODERNA 12+ YRS VACCINE 2020-05-30 00:00:00 Completed [facility] SARS-COV-2 COVID-19 MODERNA 12+ YRS VACCINE 2020-05-30 00:00:00 Completed [facility] SARS-COV-2 COVID-19 MODERNA 12+ YRS VACCINE 2020-05-30 00:00:00 Completed [facility] SARS-COV-2 COVID-19 MODERNA 12+ YRS VACCINE 2020-05-30 00:00:00 Completed [facility] SARS-COV-2 COVID-19 MODERNA 12+ YRS VACCINE 2020-05-30 00:00:00 Completed [facility] SARS-COV-2 COVID-19 MODERNA 12+ YRS VACCINE 2020-05-30 00:00:00 Completed [facility] SARS-COV-2 COVID-19 MODERNA 12+ YRS VACCINE 2020-05-30 00:00:00 Completed [facility] SARS-COV-2 COVID-19 MODERNA 12+ YRS VACCINE 2020-05-30 00:00:00 Completed [facility] SARS-COV-2 COVID-19 MODERNA 12+ YRS VACCINE 2020-05-30 00:00:00 Completed [facility] SARS-COV-2 COVID-19 MODERNA 12+ YRS VACCINE 2020-05-30 00:00:00 Completed [facility] SARS-COV-2 COVID-19 MODERNA 12+ YRS VACCINE 2020-05-30 00:00:00 Completed [facility] SARS-COV-2 COVID-19 MODERNA 12+ YRS VACCINE 2020-05-30 00:00:00 Completed [facility] SARS-COV-2 COVID-19 MODERNA 12+ YRS VACCINE 2020-05-30 00:00:00 Completed [facility] SARS-COV-2 COVID-19 MODERNA 12+ YRS VACCINE 2020-05-30 00:00:00 Completed [facility] SARS-COV-2 COVID-19 MODERNA 12+ YRS VACCINE 2020-05-30 00:00:00 Completed [facility] SARS-COV-2 COVID-19 MODERNA 12+ YRS VACCINE 2020-05-30 00:00:00 Completed [facility] SARS-COV-2 COVID-19 MODERNA 12+ YRS VACCINE 2020-05-30 00:00:00 Completed [facility] SARS-COV-2 COVID-19 MODERNA 12+ YRS VACCINE 2020-05-30 00:00:00 Completed [facility] SARS-COV-2 COVID-19 MODERNA 12+ YRS VACCINE 2020-05-30 00:00:00 Completed [facility] SARS-COV-2 COVID-19 MODERNA 12+ YRS VACCINE 2020-05-30 00:00:00 Completed [facility] SARS-COV-2 COVID-19 MODERNA 12+ YRS VACCINE 2020-05-30 00:00:00 Completed [facility] SARS-COV-2 COVID-19 MODERNA 12+ YRS VACCINE 2020-05-30 00:00:00 Completed [facility] SARS-COV-2 COVID-19 MODERNA 12+ YRS VACCINE 2020-05-30 00:00:00 Completed [facility] SARS-COV-2 COVID-19 MODERNA 12+ YRS VACCINE 2020-05-30 00:00:00 Completed [facility] SARS-COV-2 COVID-19 MODERNA 12+ YRS VACCINE 2020-05-30 00:00:00 Completed [facility] SARS-COV-2 COVID-19 MODERNA 12+ YRS VACCINE 2020-05-30 00:00:00 Completed [facility] SARS-COV-2 COVID-19 MODERNA 12+ YRS VACCINE 2020-05-30 00:00:00 Completed [facility] SARS-COV-2 COVID-19 MODERNA 12+ YRS VACCINE 2020-05-30 00:00:00 Completed [facility] SARS-COV-2 COVID-19 MODERNA 12+ YRS VACCINE 2020-05-30 00:00:00 Completed [facility] SARS-COV-2 COVID-19 MODERNA 12+ YRS VACCINE 2020-05-30 00:00:00 Completed [facility] SARS-COV-2 COVID-19 MODERNA 12+ YRS VACCINE 2020-05-30 00:00:00 Completed [facility] SARS-COV-2 COVID-19 MODERNA 12+ YRS VACCINE 2020-05-30 00:00:00 Completed [facility] SARS-COV-2 COVID-19 MODERNA 12+ YRS VACCINE 2020-05-30 00:00:00 Completed [facility] SARS-COV-2 COVID-19 MODERNA 12+ YRS VACCINE 2020-05-30 00:00:00 Completed [facility] SARS-COV-2 COVID-19 MODERNA 12+ YRS VACCINE 2020-05-30 00:00:00 Completed [facility] SARS-COV-2 COVID-19 MODERNA 12+ YRS VACCINE 2020-05-30 00:00:00 Completed [facility] SARS-COV-2 COVID-19 MODERNA 12+ YRS VACCINE 2020-05-30 00:00:00 Completed [facility] SARS-COV-2 COVID-19 MODERNA 12+ YRS VACCINE 2020-05-30 00:00:00 Completed [facility] SARS-COV-2 COVID-19 MODERNA 12+ YRS VACCINE 2020-05-30 00:00:00 Completed [facility] SARS-COV-2 COVID-19 MODERNA 12+ YRS VACCINE 2020-05-30 00:00:00 Completed [facility] SARS-COV-2 COVID-19 MODERNA 12+ YRS VACCINE 2020-05-30 00:00:00 Completed [facility] SARS-COV-2 COVID-19 MODERNA 12+ YRS VACCINE 2020-05-30 00:00:00 Completed [facility] SARS-COV-2 COVID-19 MODERNA 12+ YRS VACCINE 2020-05-30 00:00:00 Completed [facility] SARS-COV-2 COVID-19 MODERNA 12+ YRS VACCINE 2020-05-30 00:00:00 Completed [facility] SARS-COV-2 COVID-19 MODERNA 12+ YRS VACCINE 2020-05-30 00:00:00 Completed [facility] SARS-COV-2 COVID-19 MODERNA 12+ YRS VACCINE 2020-05-30 00:00:00 Completed [facility] SARS-COV-2 COVID-19 MODERNA 12+ YRS VACCINE 2020-05-30 00:00:00 Completed [facility] SARS-COV-2 COVID-19 MODERNA 12+ YRS VACCINE 2020-05-30 00:00:00 Completed [facility] SARS-COV-2 COVID-19 MODERNA 12+ YRS VACCINE 2020-05-30 00:00:00 Completed [facility] SARS-COV-2 COVID-19 MODERNA 12+ YRS VACCINE 2020-05-30 00:00:00 Completed [facility] SARS-COV-2 COVID-19 MODERNA 12+ YRS VACCINE 2020-05-30 00:00:00 Completed [facility] SARS-COV-2 COVID-19 MODERNA 12+ YRS VACCINE 2020-05-30 00:00:00 Completed [facility] SARS-COV-2 COVID-19 MODERNA 12+ YRS VACCINE 2020-05-30 00:00:00 Completed [facility] SARS-COV-2 COVID-19 MODERNA 12+ YRS VACCINE 2020-05-30 00:00:00 Completed [facility] SARS-COV-2 COVID-19 MODERNA 12+ YRS VACCINE 2020-05-30 00:00:00 Completed [facility] SARS-COV-2 COVID-19 MODERNA 12+ YRS VACCINE 2020-05-30 00:00:00 Completed [facility] SARS-COV-2 COVID-19 MODERNA 12+ YRS VACCINE 2020-05-30 00:00:00 Completed [facility] SARS-COV-2 COVID-19 MODERNA 12+ YRS VACCINE 2020-05-30 00:00:00 Completed [facility] SARS-COV-2 COVID-19 MODERNA 12+ YRS VACCINE 2020-05-30 00:00:00 Completed [facility] SARS-COV-2 COVID-19 MODERNA 12+ YRS VACCINE 2020-05-30 00:00:00 Completed [facility] SARS-COV-2 COVID-19 MODERNA 12+ YRS VACCINE 2020-05-30 00:00:00 Completed [facility] SARS-COV-2 COVID-19 MODERNA 12+ YRS VACCINE 2020-05-30 00:00:00 Completed [facility] SARS-COV-2 COVID-19 MODERNA 12+ YRS VACCINE 2020-05-30 00:00:00 Completed [facility] SARS-COV-2 COVID-19 MODERNA 12+ YRS VACCINE 2020-05-30 00:00:00 Completed [facility] SARS-COV-2 COVID-19 MODERNA 12+ YRS VACCINE 2020-05-30 00:00:00 Completed [facility] SARS-COV-2 COVID-19 MODERNA 12+ YRS VACCINE 2020-05-30 00:00:00 Completed [facility] SARS-COV-2 COVID-19 MODERNA 12+ YRS VACCINE 2020-05-30 00:00:00 Completed [facility] SARS-COV-2 COVID-19 MODERNA 12+ YRS VACCINE 2020-05-30 00:00:00 Completed [facility] SARS-COV-2 COVID-19 MODERNA 12+ YRS VACCINE 2020-05-30 00:00:00 Completed [facility] SARS-COV-2 COVID-19 MODERNA 12+ YRS VACCINE 2020-05-30 00:00:00 Completed [facility] SARS-COV-2 COVID-19 MODERNA 12+ YRS VACCINE 2020-05-30 00:00:00 Completed [facility] SARS-COV-2 COVID-19 MODERNA 12+ YRS VACCINE 2020-05-30 00:00:00 Completed [facility] SARS-COV-2 COVID-19 MODERNA 12+ YRS VACCINE 2020-05-30 00:00:00 Completed [facility] SARS-COV-2 COVID-19 MODERNA 12+ YRS VACCINE 2020-05-30 00:00:00 Completed [facility] SARS-COV-2 COVID-19 MODERNA 12+ YRS VACCINE 2020-05-30 00:00:00 Completed [facility] SARS-COV-2 COVID-19 MODERNA 12+ YRS VACCINE 2020-05-30 00:00:00 Completed [facility] SARS-COV-2 COVID-19 MODERNA 12+ YRS VACCINE Unknown Completed [facility] SARS-COV-2 COVID-19 MODERNA 12+ YRS VACCINE Unknown Completed [facility] HPV9 Unknown Completed [facility] Influenza Virus Vaccine Quad IM, Preserv and ABX Free 6 MO-64 YRS (FLUCELVAX) Unknown Completed [facility] SARS-COV-2 COVID-19 VACCINE - (MODERNA) [facility] Rho (d) Immune Globulin Unknown Completed [facility] TDAP Unknown Completed [facility] Rho (d) Immune Globulin Unknown Completed [facility] SARS-COV-2 COVID-19 MODERNA 12+ YRS VACCINE Unknown Completed [facility] SARS-COV-2 COVID-19 MODERNA 12+ YRS VACCINE Unknown Completed [facility] HPV9 Unknown Completed [facility] Influenza Virus Vaccine Quad IM, Preserv and ABX Free 6 MO-64 YRS (FLUCELVAX) Unknown Completed [facility] SARS-COV-2 COVID-19 VACCINE - (MODERNA) Unknown Completed [facility] SARS-COV-2 COVID-19 VACCINE - ([facility]) [facility] Rho (d) Immune Globulin Unknown Completed [facility] TDAP Unknown Completed [facility] Rho (d) Immune Globulin Unknown Completed [facility] Influenza Virus Vaccine Quad IM, Preserv and ABX Free 6 MO-64 YRS (FLUCELVAX) Unknown Completed [facility] SARS-COV-2 COVID-19 MODERNA 12+ YRS VACCINE Unknown Completed [facility] SARS-COV-2 COVID-19 MODERNA 12+ YRS VACCINE Unknown Completed [facility] HPV9 Unknown Completed [facility] Influenza Virus Vaccine Quad IM, Preserv and ABX Free 6 MO-64 YRS (FLUCELVAX) Unknown Completed [facility] SARS-COV-2 COVID-19 VACCINE - (MODERNA) Unknown Completed [facility] SARS-COV-2 COVID-19 VACCINE - (MODERNA) Unknown Completed [facility] HPV9 Unknown Completed [facility] Rho (d) Immune Globulin Unknown Completed [facility] SARS-COV-2 COVID-19 MODERNA 12+ YRS VACCINE Unknown Completed [facility] SARS-COV-2 COVID-19 MODERNA 12+ YRS VACCINE Unknown Completed [facility] HPV9 Unknown Completed [facility] Influenza Virus Vaccine Quad IM, Preserv and ABX Free 6 MO-64 YRS (FLUCELVAX) Unknown Completed [facility] SARS-COV-2 COVID-19 VACCINE - (MODERNA) Unknown Completed [facility] SARS-COV-2 COVID-19 VACCINE - (MODERNA) Unknown Completed [facility] HPV9 Unknown Completed [facility] Rho (d) Immune Globulin Unknown Completed [facility] SARS-COV-2 COVID-19 MODERNA 12+ YRS VACCINE Unknown Completed [facility] SARS-COV-2 COVID-19 MODERNA 12+ YRS VACCINE Unknown Completed [facility] HPV9 Unknown Completed [facility] Influenza Virus Vaccine Quad IM, Preserv and ABX Free 6 MO-64 YRS (FLUCELVAX) Unknown Completed [facility] SARS-COV-2 COVID-19 VACCINE - (MODERNA) Unknown Completed [facility] SARS-COV-2 COVID-19 VACCINE - (MODERNA) Unknown Completed [facility] HPV9 Unknown Completed [facility] Rho (d) Immune Globulin Unknown Completed [facility] SARS-COV-2 COVID-19 MODERNA 12+ YRS VACCINE Unknown Completed [facility] SARS-COV-2 COVID-19 MODERNA 12+ YRS VACCINE Unknown Completed [facility] HPV9 Unknown Completed [facility] Influenza Virus Vaccine Quad IM, Preserv and ABX Free 6 MO-64 YRS (FLUCELVAX) Unknown Completed [facility] SARS-COV-2 COVID-19 VACCINE - (MODERNA) Unknown Completed [facility] SARS-COV-2 COVID-19 VACCINE - (MODERNA) Unknown Completed [facility] HPV9 Unknown Completed [facility] Rho (d) Immune Globulin Unknown Completed [facility] SARS-COV-2 COVID-19 MODERNA 12+ YRS VACCINE Unknown Completed [facility] SARS-COV-2 COVID-19 MODERNA 12+ YRS VACCINE Unknown Completed [facility] HPV9 Unknown Completed [facility] Influenza Virus Vaccine Quad IM, Preserv and ABX Free 6 MO-64 YRS (FLUCELVAX) Unknown Completed [facility] SARS-COV-2 COVID-19 VACCINE - (MODERNA) Unknown Completed [facility] SARS-COV-2 COVID-19 VACCINE - (MODERNA) Unknown Completed [facility] HPV9 Unknown Completed [facility] Rho (d) Immune Globulin Unknown Completed [facility] SARS-COV-2 COVID-19 MODERNA 12+ YRS VACCINE Unknown Completed [facility] SARS-COV-2 COVID-19 MODERNA 12+ YRS VACCINE Unknown Completed [facility] HPV9 Unknown Completed [facility] Influenza Virus Vaccine Quad IM, Preserv and ABX Free 6 MO-64 YRS (FLUCELVAX) Unknown Completed [facility] SARS-COV-2 COVID-19 VACCINE - (MODERNA) Unknown Completed [facility] SARS-COV-2 COVID-19 VACCINE - (MODERNA) Unknown Completed [facility] HPV9 Unknown Completed [facility] Rho (d) Immune Globulin Unknown Completed [facility] SARS-COV-2 COVID-19 MODERNA 12+ YRS VACCINE Unknown Completed [facility] SARS-COV-2 COVID-19 MODERNA 12+ YRS VACCINE Unknown Completed [facility] HPV9 Unknown Completed [facility] Influenza Virus Vaccine Quad IM, Preserv and ABX Free 6 MO-64 YRS (FLUCELVAX) Unknown Completed [facility] SARS-COV-2 COVID-19 VACCINE - (MODERNA) Unknown Completed [facility] SARS-COV-2 COVID-19 VACCINE - (MOD[facility]NA) [facility] Rho (d) Immune Globulin Unknown Completed [facility] SARS-COV-2 COVID-19 MODERNA 12+ YRS VACCINE Unknown Completed [facility] SARS-COV-2 COVID-19 MODERNA 12+ YRS VACCINE Unknown Completed [facility] HPV9 Unknown Completed [facility] Influenza Virus Vaccine Quad IM, Preserv and ABX Free 6 MO-64 YRS (FLUCELVAX) Unknown Completed [facility] SARS-COV-2 COVID-19 VACCINE - (MODERNA) Unknown Completed [facility] SARS-COV-2 COVID-19 VACCINE - (MOD[facility]NA) [facility] Rho (d) Immune Globulin Unknown Completed [facility] SARS-COV-2 COVID-19 MODERNA 12+ YRS VACCINE Unknown Completed [facility] SARS-COV-2 COVID-19 MODERNA 12+ YRS VACCINE Unknown Completed [facility] HPV9 Unknown Completed [facility] Influenza Virus Vaccine Quad IM, Preserv and ABX Free 6 MO-64 YRS (FLUCELVAX) Unknown Completed [facility] SARS-COV-2 COVID-19 VACCINE - (MODERNA) Unknown Completed [facility] SARS-COV-2 COVID-19 VACCINE - (MODERNA) Unknown Completed [facility] HPV9 Unknown Completed [facility] Rho (d) Immune Globulin Unknown Completed [facility] TDAP Unknown Completed [facility] Rho (d) Immune Globulin Unknown Completed [facility] Influenza Virus Vaccine Quad IM, Preserv and ABX Free 6 MO-64 YRS (FLUCELVAX) Unknown Completed [facility] SARS-COV-2 COVID-19 MODERNA 12+ YRS VACCINE Unknown Completed [facility] SARS-COV-2 COVID-19 MODERNA 12+ YRS VACCINE Unknown Completed [facility] HPV9 Unknown Completed [facility] Influenza Virus Vaccine Quad IM, Preserv and ABX Free 6 MO-64 YRS (FLUCELVAX) Unknown Completed [facility] SARS-COV-2 COVID-19 VACCINE - (MODERNA) Unknown Completed [facility] SARS-COV-2 COVID-19 VACCINE - (MODERNA) Unknown Completed [facility] HPV9 Unknown Completed [facility] Rho (d) Immune Globulin Unknown Completed [facility] TDAP Unknown Completed [facility] Rho (d) Immune Globulin Unknown Completed [facility] Influenza Virus Vaccine Quad IM, Preserv and ABX Free 6 MO-64 YRS (FLUCELVAX) Unknown Completed [facility] SARS-COV-2 COVID-19 MODERNA 12+ YRS VACCINE Unknown Completed [facility] SARS-COV-2 COVID-19 MODERNA 12+ YRS VACCINE Unknown Completed [facility] HPV9 Unknown Completed [facility] Influenza Virus Vaccine Quad IM, Preserv and ABX Free 6 MO-64 YRS (FLUCELVAX) Unknown Completed [facility] SARS-COV-2 COVID-19 VACCINE - (MODERNA) Unknown Completed [facility] SARS-COV-2 COVID-19 VACCINE - (MODERNA) Unknown Completed [facility] HPV9 Unknown Completed [facility] Rho (d) Immune Globulin Unknown Completed [facility] TDAP Unknown Completed [facility] Rho (d) Immune Globulin Unknown Completed [facility] Influenza Virus Vaccine Quad IM, Preserv and ABX Free 6 MO-64 YRS (FLUCELVAX) Unknown Completed [facility] SARS-COV-2 COVID-19 MODERNA 12+ YRS VACCINE Unknown Completed [facility] SARS-COV-2 COVID-19 MODERNA 12+ YRS VACCINE Unknown Completed [facility] HPV9 Unknown Completed [facility] Influenza Virus Vaccine Quad IM, Preserv and ABX Free 6 MO-64 YRS (FLUCELVAX) Unknown Completed [facility] SARS-COV-2 COVID-19 VACCINE - (MODERNA) Unknown Completed [facility] SARS-COV-2 COVID-19 VACCINE - (MODERNA) Unknown Completed [facility] HPV9 Unknown Completed [facility] Rho (d) Immune Globulin Unknown Completed [facility] TDAP Unknown Completed [facility] Rho (d) Immune Globulin Unknown Completed [facility] Influenza Virus Vaccine Quad IM, Preserv and ABX Free 6 MO-64 YRS (FLUCELVAX) Unknown Completed [facility] SARS-COV-2 COVID-19 MODERNA 12+ YRS VACCINE Unknown Completed [facility] SARS-COV-2 COVID-19 MODERNA 12+ YRS VACCINE Unknown Completed [facility] HPV9 Unknown Completed [facility] Influenza Virus Vaccine Quad IM, Preserv and ABX Free 6 MO-64 YRS (FLUCELVAX) Unknown Completed [facility] SARS-COV-2 COVID-19 VACCINE - (MODERNA) Unknown Completed [facility] SARS-COV-2 COVID-19 VACCINE - (MODERNA) Unknown Completed [facility] HPV9 Unknown Completed [facility] Rho (d) Immune Globulin Unknown Completed [facility] TDAP Unknown Completed [facility] Rho (d) Immune Globulin Unknown Completed [facility] Influenza Virus Vaccine Quad IM, Preserv and ABX Free 6 MO-64 YRS (FLUCELVAX) Unknown Completed [facility] SARS-COV-2 COVID-19 MODERNA 12+ YRS VACCINE Unknown Completed [facility] SARS-COV-2 COVID-19 MODERNA 12+ YRS VACCINE Unknown Completed [facility] HPV9 Unknown Completed [facility] Influenza Virus Vaccine Quad IM, Preserv and ABX Free 6 MO-64 YRS (FLUCELVAX) Unknown Completed [facility] SARS-COV-2 COVID-19 VACCINE - (MODERNA) Unknown Completed [facility] SARS-COV-2 COVID-19 VACCINE - (MODERNA) Unknown Completed [facility] HPV9 Unknown Completed [facility] Rho (d) Immune Globulin Unknown Completed [facility] TDAP Unknown Completed [facility] Rho (d) Immune Globulin Unknown Completed [facility] Influenza Virus Vaccine Quad IM, Preserv and ABX Free 6 MO-64 YRS (FLUCELVAX) Unknown Completed [facility] SARS-COV-2 COVID-19 MODERNA 12+ YRS VACCINE Unknown Completed [facility] SARS-COV-2 COVID-19 MODERNA 12+ YRS VACCINE Unknown Completed [facility] HPV9 Unknown Completed [facility] Influenza Virus Vaccine Quad IM, Preserv and ABX Free 6 MO-64 YRS (FLUCELVAX) Unknown Completed [facility] SARS-COV-2 COVID-19 VACCINE - (MODERNA) Unknown Completed [facility] SARS-COV-2 COVID-19 VACCINE - (MODERNA) Unknown Completed [facility] HPV9 Unknown Completed [facility] Rho (d) Immune Globulin Unknown Completed [facility] TDAP Unknown Completed [facility] Rho (d) Immune Globulin Unknown Completed [facility] Influenza Virus Vaccine Quad IM, Preserv and ABX Free 6 MO-64 YRS (FLUCELVAX) Unknown Completed [facility] SARS-COV-2 COVID-19 MODERNA 12+ YRS VACCINE Unknown Completed [facility] SARS-COV-2 COVID-19 MODERNA 12+ YRS VACCINE Unknown Completed [facility] HPV9 Unknown Completed [facility] Influenza Virus Vaccine Quad IM, Preserv and ABX Free 6 MO-64 YRS (FLUCELVAX) Unknown Completed [facility] SARS-COV-2 COVID-19 VACCINE - (MODERNA) Unknown Completed [facility] SARS-COV-2 COVID-19 VACCINE - (MODERNA) Unknown Completed [facility] HPV9 Unknown Completed [facility] Rho (d) Immune Globulin Unknown Completed [facility] TDAP Unknown Completed [facility] Rho (d) Immune Globulin Unknown Completed [facility] Influenza Virus Vaccine Quad IM, Preserv and ABX Free 6 MO-64 YRS (FLUCELVAX) Unknown Completed [facility] SARS-COV-2 COVID-19 MODERNA 12+ YRS VACCINE Unknown Completed [facility] SARS-COV-2 COVID-19 MODERNA 12+ YRS VACCINE Unknown Completed [facility] HPV9 Unknown Completed [facility] Influenza Virus Vaccine Quad IM, Preserv and ABX Free 6 MO-64 YRS (FLUCELVAX) Unknown Completed [facility] SARS-COV-2 COVID-19 VACCINE - (MODERNA) Unknown Completed [facility] SARS-COV-2 COVID-19 VACCINE - (MODERNA) Unknown Completed [facility] HPV9 Unknown Completed [facility] Rho (d) Immune Globulin Unknown Completed [facility] TDAP Unknown Completed [facility] Rho (d) Immune Globulin Unknown Completed [facility] Influenza Virus Vaccine Quad IM, Preserv and ABX Free 6 MO-64 YRS (FLUCELVAX) Unknown Completed [facility] SARS-COV-2 COVID-19 MODERNA 12+ YRS VACCINE Unknown Completed [facility] SARS-COV-2 COVID-19 MODERNA 12+ YRS VACCINE Unknown Completed [facility] HPV9 Unknown Completed [facility] Influenza Virus Vaccine Quad IM, Preserv and ABX Free 6 MO-64 YRS (FLUCELVAX) Unknown Completed [facility] SARS-COV-2 COVID-19 VACCINE - (MODERNA) Unknown Completed [facility] SARS-COV-2 COVID-19 VACCINE - (MODERNA) Unknown Completed [facility] HPV9 Unknown Completed [facility] Rho (d) Immune Globulin Unknown Completed [facility] TDAP Unknown Completed [facility] Rho (d) Immune Globulin Unknown Completed [facility] Influenza Virus Vaccine Quad IM, Preserv and ABX Free 6 MO-64 YRS (FLUCELVAX) Unknown Completed [facility] SARS-COV-2 COVID-19 MODERNA 12+ YRS VACCINE Unknown Completed [facility] SARS-COV-2 COVID-19 MODERNA 12+ YRS VACCINE Unknown Completed [facility] HPV9 Unknown Completed [facility] Influenza Virus Vaccine Quad IM, Preserv and ABX Free 6 MO-64 YRS (FLUCELVAX) Unknown Completed [facility] SARS-COV-2 COVID-19 VACCINE - (MODERNA) Unknown Completed [facility] SARS-COV-2 COVID-19 VACCINE - (MODERNA) Unknown Completed [facility] HPV9 Unknown Completed [facility] Rho (d) Immune Globulin Unknown Completed [facility] TDAP Unknown Completed [facility] Rho (d) Immune Globulin Unknown Completed [facility] Influenza Virus Vaccine Quad IM, Preserv and ABX Free 6 MO-64 YRS (FLUCELVAX) Unknown Completed [facility] SARS-COV-2 COVID-19 MODERNA 12+ YRS VACCINE Unknown Completed [facility] SARS-COV-2 COVID-19 MODERNA 12+ YRS VACCINE Unknown Completed [facility] HPV9 Unknown Completed [facility] Influenza Virus Vaccine Quad IM, Preserv and ABX Free 6 MO-64 YRS (FLUCELVAX) Unknown Completed [facility] SARS-COV-2 COVID-19 VACCINE - (MODERNA) Unknown Completed [facility] SARS-COV-2 COVID-19 VACCINE - (MOD[facility]NA) [facility] Rho (d) Immune Globulin Unknown Completed [facility] TDAP Unknown Completed [facility] Rho (d) Immune Globulin Unknown Completed [facility] Influenza Virus Vaccine Quad IM, Preserv and ABX Free 6 MO-64 YRS (FLUCELVAX) Unknown Completed [facility] SARS-COV-2 COVID-19 MODERNA 12+ YRS VACCINE Unknown Completed [facility] SARS-COV-2 COVID-19 MODERNA 12+ YRS VACCINE Unknown Completed [facility] HPV9 Unknown Completed [facility] Influenza Virus Vaccine Quad IM, Preserv and ABX Free 6 MO-64 YRS (FLUCELVAX) Unknown Completed [facility] SARS-COV-2 COVID-19 VACCINE - (MODERNA) Unknown Completed [facility] SARS-COV-2 COVID-19 VACCINE - (MODERNA) Unknown Completed [facility] HPV9 Unknown Completed [facility] Rho (d) Immune Globulin Unknown Completed [facility] TDAP Unknown Completed [facility] Rho (d) Immune Globulin Unknown Completed [facility] Influenza Virus Vaccine Quad IM, Preserv and ABX Free 6 MO-64 YRS (FLUCELVAX) Unknown Completed [facility] SARS-COV-2 COVID-19 MODERNA 12+ YRS VACCINE Unknown Completed [facility] SARS-COV-2 COVID-19 MODERNA 12+ YRS VACCINE Unknown Completed [facility] HPV9 Unknown Completed [facility] Influenza Virus Vaccine Quad IM, Preserv and ABX Free 6 MO-64 YRS (FLUCELVAX) Unknown Completed [facility] SARS-COV-2 COVID-19 VACCINE - (MODERNA) Unknown Completed [facility] SARS-COV-2 COVID-19 VACCINE - (MODERNA) Unknown Completed [facility] HPV9 Unknown Completed [facility] Rho (d) Immune Globulin Unknown Completed [facility] TDAP Unknown Completed [facility] Rho (d) Immune Globulin Unknown Completed [facility] Influenza Virus Vaccine Quad IM, Preserv and ABX Free 6 MO-64 YRS (FLUCELVAX) Unknown Completed [facility] SARS-COV-2 COVID-19 MODERNA 12+ YRS VACCINE Unknown Completed [facility] SARS-COV-2 COVID-19 MODERNA 12+ YRS VACCINE Unknown Completed [facility] HPV9 Unknown Completed [facility] Influenza Virus Vaccine Quad IM, Preserv and ABX Free 6 MO-64 YRS (FLUCELVAX) Unknown Completed [facility] SARS-COV-2 COVID-19 VACCINE - (MODERNA) Unknown Completed [facility] SARS-COV-2 COVID-19 VACCINE - (MODERNA) Unknown Completed [facility] HPV9 Unknown Completed [facility] Rho (d) Immune Globulin Unknown Completed [facility] TDAP Unknown Completed [facility] Rho (d) Immune Globulin Unknown Completed [facility] Influenza Virus Vaccine Quad IM, Preserv and ABX Free 6 MO-64 YRS (FLUCELVAX) Unknown Completed [facility] SARS-COV-2 COVID-19 MODERNA 12+ YRS VACCINE Unknown Completed [facility] SARS-COV-2 COVID-19 MODERNA 12+ YRS VACCINE Unknown Completed [facility] HPV9 Unknown Completed [facility] Influenza Virus Vaccine Quad IM, Preserv and ABX Free 6 MO-64 YRS (FLUCELVAX) Unknown Completed [facility] SARS-COV-2 COVID-19 VACCINE - (MODERNA) Unknown Completed [facility] SARS-COV-2 COVID-19 VACCINE - (MODERNA) Unknown Completed [facility] HPV9 Unknown Completed [facility] Rho (d) Immune Globulin Unknown Completed [facility] TDAP Unknown Completed [facility] Rho (d) Immune Globulin Unknown Completed [facility] Influenza Virus Vaccine Quad IM, Preserv and ABX Free 6 MO-64 YRS (FLUCELVAX) Unknown Completed [facility] SARS-COV-2 COVID-19 MODERNA 12+ YRS VACCINE Unknown Completed [facility] SARS-COV-2 COVID-19 MODERNA 12+ YRS VACCINE Unknown Completed [facility] HPV9 Unknown Completed [facility] Influenza Virus Vaccine Quad IM, Preserv and ABX Free 6 MO-64 YRS (FLUCELVAX) Unknown Completed [facility] SARS-COV-2 COVID-19 VACCINE - (MODERNA) Unknown Completed [facility] SARS-COV-2 COVID-19 VACCINE - (MODERNA) Unknown Completed [facility] HPV9 Unknown Completed [facility] Rho (d) Immune Globulin Unknown Completed [facility] TDAP Unknown Completed [facility] Rho (d) Immune Globulin Unknown Completed [facility] Influenza Virus Vaccine Quad IM, Preserv and ABX Free 6 MO-64 YRS (FLUCELVAX) Unknown Completed [facility] SARS-COV-2 COVID-19 MODERNA 12+ YRS VACCINE Unknown Completed [facility] SARS-COV-2 COVID-19 MODERNA 12+ YRS VACCINE Unknown Completed [facility] HPV9 Unknown Completed [facility] Influenza Virus Vaccine Quad IM, Preserv and ABX Free 6 MO-64 YRS (FLUCELVAX) Unknown Completed [facility] SARS-COV-2 COVID-19 VACCINE - (MODERNA) Unknown Completed [facility] SARS-COV-2 COVID-19 VACCINE - (MODERNA) Unknown Completed [facility] HPV9 Unknown Completed [facility] Rho (d) Immune Globulin Unknown Completed [facility] TDAP Unknown Completed [facility] Rho (d) Immune Globulin Unknown Completed [facility] Influenza Virus Vaccine Quad IM, Preserv and ABX Free 6 MO-64 YRS (FLUCELVAX) Unknown Completed [facility] SARS-COV-2 COVID-19 MODERNA 12+ YRS VACCINE Unknown Completed [facility] SARS-COV-2 COVID-19 MODERNA 12+ YRS VACCINE Unknown Completed [facility] HPV9 Unknown Completed [facility] Influenza Virus Vaccine Quad IM, Preserv and ABX Free 6 MO-64 YRS (FLUCELVAX) Unknown Completed [facility] SARS-COV-2 COVID-19 VACCINE - (MODERNA) Unknown Completed [facility] SARS-COV-2 COVID-19 VACCINE - (MODERNA) Unknown Completed [facility] HPV9 Unknown Completed [facility] Rho (d) Immune Globulin Unknown Completed [facility] TDAP Unknown Completed [facility] Rho (d) Immune Globulin Unknown Completed [facility] Influenza Virus Vaccine Quad IM, Preserv and ABX Free 6 MO-64 YRS (FLUCELVAX) Unknown Completed [facility] SARS-COV-2 COVID-19 MODERNA 12+ YRS VACCINE Unknown Completed [facility] SARS-COV-2 COVID-19 MODERNA 12+ YRS VACCINE Unknown Completed [facility] HPV9 Unknown Completed [facility] Influenza Virus Vaccine Quad IM, Preserv and ABX Free 6 MO-64 YRS (FLUCELVAX) Unknown Completed [facility] SARS-COV-2 COVID-19 VACCINE - (MODERNA) Unknown Completed [facility] SARS-COV-2 COVID-19 [facility]ACC[facility] - [facility] Rho (d) Immune Globulin Unknown Completed [facility] TDAP Unknown Completed [facility] Rho (d) Immune Globulin Unknown Completed [facility] Influenza Virus Vaccine Quad IM, Preserv and ABX Free 6 MO-64 YRS (FLUCELVAX) Unknown Completed [facility] SARS-COV-2 COVID-19 MODERNA 12+ YRS VACCINE Unknown Completed [facility] SARS-COV-2 COVID-19 MODERNA 12+ YRS VACCINE Unknown Completed [facility] HPV9 Unknown Completed [facility] Influenza Virus Vaccine Quad IM, Preserv and ABX Free 6 MO-64 YRS (FLUCELVAX) Unknown Completed [facility] SARS-COV-2 COVID-19 VACCINE - (MODERNA) Unknown Completed [facility] SARS-COV-2 COVID-19 VACCINE - (MODERNA) Unknown Completed [facility] HPV9 Unknown Completed [facility] Rho (d) Immune Globulin Unknown Completed [facility] TDAP Unknown Completed [facility] Rho (d) Immune Globulin Unknown Completed [facility] Influenza Virus Vaccine Quad IM, Preserv and ABX Free 6 MO-64 YRS (FLUCELVAX) Unknown Completed [facility] Rho (d) Immune Globulin Unknown Completed [facility] SARS-COV-2 COVID-19 MODERNA 12+ YRS VACCINE Unknown Completed [facility] SARS-COV-2 COVID-19 MODERNA 12+ YRS VACCINE Unknown Completed [facility] HPV9 Unknown Completed [facility] Influenza Virus Vaccine Quad IM, Preserv and ABX Free 6 MO-64 YRS (FLUCELVAX) Unknown Completed [facility] SARS-COV-2 COVID-19 VACCINE - (MODERNA) Unknown Completed [facility] SARS-COV-2 COVID-19 VACCINE - (MODERNA) Unknown Completed [facility] HPV9 Unknown Completed [facility] Rho (d) Immune Globulin Unknown Completed [facility] TDAP Unknown Completed [facility] Rho (d) Immune Globulin Unknown Completed [facility] Influenza Virus Vaccine Quad IM, Preserv and ABX Free 6 MO-64 YRS (FLUCELVAX) Unknown Completed [facility] SARS-COV-2 COVID-19 MODERNA 12+ YRS VACCINE Unknown Completed [facility] SARS-COV-2 COVID-19 MODERNA 12+ YRS VACCINE Unknown Completed [facility] HPV9 Unknown Completed [facility] Influenza Virus Vaccine Quad IM, Preserv and ABX Free 6 MO-64 YRS (FLUCELVAX) Unknown Completed [facility] SARS-COV-2 COVID-19 VACCINE - (MODERNA) Unknown Completed [facility] SARS-COV-2 COVID-19 VACCINE - (MODERNA) Unknown Completed [facility] HPV9 Unknown Completed [facility] Rho (d) Immune Globulin Unknown Completed [facility] TDAP Unknown Completed [facility] Rho (d) Immune Globulin Unknown Completed [facility] Influenza Virus Vaccine Quad IM, Preserv and ABX Free 6 MO-64 YRS (FLUCELVAX) Unknown Completed [facility] SARS-COV-2 COVID-19 MODERNA 12+ YRS VACCINE Unknown Completed [facility] SARS-COV-2 COVID-19 MODERNA 12+ YRS VACCINE Unknown Completed [facility] HPV9 Unknown Completed [facility] Influenza Virus Vaccine Quad IM, Preserv and ABX Free 6 MO-64 YRS (FLUCELVAX) Unknown Completed [facility] SARS-COV-2 COVID-19 VACCINE - (MODERNA) Unknown Completed [facility] SARS-COV-2 COVID-19 VACCINE - ([facility]) [facility] Rho (d) Immune Globulin Unknown Completed [facility] TDAP Unknown Completed [facility] Rho (d) Immune Globulin Unknown Completed [facility] Influenza Virus Vaccine Quad IM, Preserv and ABX Free 6 MO-64 YRS (FLUCELVAX) Unknown Completed [facility] Rho (d) Immune Globulin Unknown Completed [facility] HPV9 Unknown Completed [facility] SARS-COV-2 COVID-19 MODERNA 12+ YRS VACCINE Unknown Completed [facility] SARS-COV-2 COVID-19 MODERNA 12+ YRS VACCINE Unknown Completed [facility] HPV9 Unknown Completed [facility] Influenza Virus Vaccine Quad IM, Preserv and ABX Free 6 MO-64 YRS (FLUCELVAX) Unknown Completed [facility] SARS-COV-2 COVID-19 VACCINE - (MODERNA) Unknown Completed [facility] SARS-COV-2 COVID-19 VACCINE - (MODERNA) Unknown Completed [facility] HPV9 Unknown Completed [facility] Rho (d) Immune Globulin Unknown Completed [facility] TDAP Unknown Completed [facility] Rho (d) Immune Globulin Unknown Completed [facility] Influenza Virus Vaccine Quad IM, Preserv and ABX Free 6 MO-64 YRS (FLUCELVAX) Unknown Completed [facility] Rho (d) Immune Globulin Unknown Completed [facility] HPV9 Unknown Completed [facility] SARS-COV-2 COVID-19 MODERNA 12+ YRS VACCINE Unknown Completed [facility] SARS-COV-2 COVID-19 MODERNA 12+ YRS VACCINE Unknown Completed [facility] HPV9 Unknown Completed [facility] Influenza Virus Vaccine Quad IM, Preserv and ABX Free 6 MO-64 YRS (FLUCELVAX) Unknown Completed [facility] SARS-COV-2 COVID-19 VACCINE - (MODERNA) Unknown Completed [facility] SARS-COV-2 COVID-19 VACCINE - (MODERNA) Unknown Completed [facility] HPV9 Unknown Completed [facility] Rho (d) Immune Globulin Unknown Completed [facility] TDAP Unknown Completed [facility] Rho (d) Immune Globulin Unknown Completed [facility] Influenza Virus Vaccine Quad IM, Preserv and ABX Free 6 MO-64 YRS (FLUCELVAX) Unknown Completed [facility] Rho (d) Immune Globulin Unknown Completed [facility] HPV9 Unknown Completed [facility] SARS-COV-2 COVID-19 MODERNA 12+ YRS VACCINE Unknown Completed [facility] SARS-COV-2 COVID-19 MODERNA 12+ YRS VACCINE Unknown Completed [facility] HPV9 Unknown Completed [facility] Influenza Virus Vaccine Quad IM, Preserv and ABX Free 6 MO-64 YRS (FLUCELVAX) Unknown Completed [facility] SARS-COV-2 COVID-19 VACCINE - (MODERNA) Unknown Completed [facility] SARS-COV-2 COVID-19 VACCINE - (MODERNA) Unknown Completed [facility] HPV9 Unknown Completed [facility] Rho (d) Immune Globulin Unknown Completed [facility] TDAP Unknown Completed [facility] Rho (d) Immune Globulin Unknown Completed [facility] Influenza Virus Vaccine Quad IM, Preserv and ABX Free 6 MO-64 YRS (FLUCELVAX) Unknown Completed [facility] SARS-COV-2 COVID-19 MODERNA 12+ YRS VACCINE Unknown Completed [facility] SARS-COV-2 COVID-19 MODERNA 12+ YRS VACCINE Unknown Completed [facility] HPV9 Unknown Completed [facility] Influenza Virus Vaccine Quad IM, Preserv and ABX Free 6 MO-64 YRS (FLUCELVAX) Unknown Completed [facility] SARS-COV-2 COVID-19 VACCINE - (MODERNA) Unknown Completed [facility] SARS-COV-2 COVID-19 VACCINE - (MODERNA) Unknown Completed [facility] HPV9 Unknown Completed [facility] Rho (d) Immune Globulin Unknown Completed [facility] TDAP Unknown Completed [facility] Rho (d) Immune Globulin Unknown Completed [facility] Influenza Virus Vaccine Quad IM, Preserv and ABX Free 6 MO-64 YRS (FLUCELVAX) Unknown Completed [facility] SARS-COV-2 COVID-19 MODERNA 12+ YRS VACCINE Unknown Completed [facility] SARS-COV-2 COVID-19 MODERNA 12+ YRS VACCINE Unknown Completed [facility] HPV9 Unknown Completed [facility] Influenza Virus Vaccine Quad IM, Preserv and ABX Free 6 MO-64 YRS (FLUCELVAX) Unknown Completed [facility] SARS-COV-2 COVID-19 VACCINE - (MODERNA) Unknown Completed [facility] SARS-COV-2 COVID-19 VACCINE - (MODERNA) Unknown Completed [facility] HPV9 Unknown Completed [facility] Rho (d) Immune Globulin Unknown Completed [facility] TDAP Unknown Completed [facility] Rho (d) Immune Globulin Unknown Completed [facility] Influenza Virus Vaccine Quad IM, Preserv and ABX Free 6 MO-64 YRS (FLUCELVAX) Unknown Completed [facility] Rho (d) Immune Globulin Unknown Completed [facility] SARS-COV-2 COVID-19 MODERNA 12+ YRS VACCINE Unknown Completed [facility] SARS-COV-2 COVID-19 MODERNA 12+ YRS VACCINE Unknown Completed [facility] HPV9 Unknown Completed [facility] Influenza Virus Vaccine Quad IM, Preserv and ABX Free 6 MO-64 YRS (FLUCELVAX) Unknown Completed [facility] SARS-COV-2 COVID-19 VACCINE - (MODERNA) Unknown Completed [facility] SARS-COV-2 COVID-19 VACCINE - (MODERNA) Unknown Completed [facility] HPV9 Unknown Completed [facility] Rho (d) Immune Globulin Unknown Completed [facility] TDAP Unknown Completed [facility] Rho (d) Immune Globulin Unknown Completed [facility] Influenza Virus Vaccine Quad IM, Preserv and ABX Free 6 MO-64 YRS (FLUCELVAX) Unknown Completed [facility] Rho (d) Immune Globulin Unknown Completed [facility] HPV9 Unknown Completed [facility] SARS-COV-2 COVID-19 MODERNA 12+ YRS VACCINE Unknown Completed [facility] SARS-COV-2 COVID-19 MODERNA 12+ YRS VACCINE Unknown Completed [facility] HPV9 Unknown Completed [facility] Influenza Virus Vaccine Quad IM, Preserv and ABX Free 6 MO-64 YRS (FLUCELVAX) Unknown Completed [facility] SARS-COV-2 COVID-19 VACCINE - (MODERNA) Unknown Completed [facility] SARS-COV-2 COVID-19 VACCINE - (MODERNA) Unknown Completed [facility] HPV9 Unknown Completed [facility] Rho (d) Immune Globulin Unknown Completed [facility] TDAP Unknown Completed [facility] Rho (d) Immune Globulin Unknown Completed [facility] Influenza Virus Vaccine Quad IM, Preserv and ABX Free 6 MO-64 YRS (FLUCELVAX) Unknown Completed [facility] Rho (d) Immune Globulin Unknown Completed [facility] HPV9 Unknown Completed [facility] SARS-COV-2 COVID-19 MODERNA 12+ YRS VACCINE Unknown Completed [facility] SARS-COV-2 COVID-19 MODERNA 12+ YRS VACCINE Unknown Completed [facility] HPV9 Unknown Completed [facility] Influenza Virus Vaccine Quad IM, Preserv and ABX Free 6 MO-64 YRS (FLUCELVAX) Unknown Completed [facility] SARS-COV-2 COVID-19 VACCINE - (MODERNA) Unknown Completed [facility] SARS-COV-2 COVID-19 VACCINE - ([facility]) [facility] Rho (d) Immune Globulin Unknown Completed [facility] TDAP Unknown Completed [facility] Rho (d) Immune Globulin Unknown Completed [facility] Influenza Virus Vaccine Quad IM, Preserv and ABX Free 6 MO-64 YRS (FLUCELVAX) Unknown Completed [facility] Rho (d) Immune Globulin Unknown Completed [facility] HPV9 Unknown Completed [facility] SARS-COV-2 COVID-19 MODERNA 12+ YRS VACCINE Unknown Completed [facility] SARS-COV-2 COVID-19 MODERNA 12+ YRS VACCINE Unknown Completed [facility] HPV9 Unknown Completed [facility] Influenza Virus Vaccine Quad IM, Preserv and ABX Free 6 MO-64 YRS (FLUCELVAX) Unknown Completed [facility] SARS-COV-2 COVID-19 VACCINE - (MODERNA) Unknown Completed [facility] SARS-COV-2 COVID-19 VACCINE - (MODERNA) Unknown Completed [facility] HPV9 Unknown Completed [facility] Rho (d) Immune Globulin Unknown Completed [facility] TDAP Unknown Completed [facility] Rho (d) Immune Globulin Unknown Completed [facility] Influenza Virus Vaccine Quad IM, Preserv and ABX Free 6 MO-64 YRS (FLUCELVAX) Unknown Completed [facility] Rho (d) Immune Globulin Unknown Completed [facility] HPV9 Unknown Completed [facility] SARS-COV-2 COVID-19 MODERNA 12+ YRS VACCINE Unknown Completed [facility] SARS-COV-2 COVID-19 MODERNA 12+ YRS VACCINE Unknown Completed [facility] HPV9 Unknown Completed [facility] Influenza Virus Vaccine Quad IM, Preserv and ABX Free 6 MO-64 YRS (FLUCELVAX) Unknown Completed [facility] SARS-COV-2 COVID-19 VACCINE - (MODERNA) Unknown Completed [facility] SARS-COV-2 COVID-19 VACCINE - (MODERNA) Unknown Completed [facility] HPV9 Unknown Completed [facility] Rho (d) Immune Globulin Unknown Completed [facility] TDAP Unknown Completed [facility] Rho (d) Immune Globulin Unknown Completed [facility] Influenza Virus Vaccine Quad IM, Preserv and ABX Free 6 MO-64 YRS (FLUCELVAX) Unknown Completed [facility] Rho (d) Immune Globulin Unknown Completed [facility] HPV9 Unknown Completed [facility] SARS-COV-2 COVID-19 MODERNA 12+ YRS VACCINE Unknown Completed [facility] SARS-COV-2 COVID-19 MODERNA 12+ YRS VACCINE Unknown Completed [facility] HPV9 Unknown Completed [facility] Influenza Virus Vaccine Quad IM, Preserv and ABX Free 6 MO-64 YRS (FLUCELVAX) Unknown Completed [facility] SARS-COV-2 COVID-19 VACCINE - (MODERNA) Unknown Completed [facility] SARS-COV-2 COVID-19 VACCINE - (MODERNA) Unknown Completed [facility] HPV9 Unknown Completed [facility] Rho (d) Immune Globulin Unknown Completed [facility] TDAP Unknown Completed [facility] Rho (d) Immune Globulin Unknown Completed [facility] Influenza Virus Vaccine Quad IM, Preserv and ABX Free 6 MO-64 YRS (FLUCELVAX) Unknown Completed [facility] Rho (d) Immune Globulin Unknown Completed [facility] HPV9 Unknown Completed [facility] SARS-COV-2 COVID-19 MODERNA 12+ YRS VACCINE Unknown Completed [facility] SARS-COV-2 COVID-19 MODERNA 12+ YRS VACCINE Unknown Completed [facility] HPV9 Unknown Completed [facility] Influenza Virus Vaccine Quad IM, Preserv and ABX Free 6 MO-64 YRS (FLUCELVAX) Unknown Completed [facility] SARS-COV-2 COVID-19 VACCINE - (MODERNA) Unknown Completed [facility] SARS-COV-2 COVID-19 VACCINE - (MODERNA) Unknown Completed [facility] HPV9 Unknown Completed [facility] Rho (d) Immune Globulin Unknown Completed [facility] TDAP Unknown Completed [facility] Rho (d) Immune Globulin Unknown Completed [facility] Influenza Virus Vaccine Quad IM, Preserv and ABX Free 6 MO-64 YRS (FLUCELVAX) Unknown Completed [facility] Rho (d) Immune Globulin Unknown Completed [facility] HPV9 Unknown Completed [facility] SARS-COV-2 COVID-19 MODERNA 12+ YRS VACCINE Unknown Completed [facility] SARS-COV-2 COVID-19 MODERNA 12+ YRS VACCINE Unknown Completed [facility] HPV9 Unknown Completed [facility] Influenza Virus Vaccine Quad IM, Preserv and ABX Free 6 MO-64 YRS (FLUCELVAX) Unknown Completed [facility] SARS-COV-2 COVID-19 VACCINE - (MODERNA) Unknown Completed [facility] SARS-COV-2 COVID-19 VACCINE - (MODERNA) Unknown Completed [facility] HPV9 Unknown Completed [facility] Rho (d) Immune Globulin Unknown Completed [facility] TDAP Unknown Completed [facility] Rho (d) Immune Globulin Unknown Completed [facility] Influenza Virus Vaccine Quad IM, Preserv and ABX Free 6 MO-64 YRS (FLUCELVAX) Unknown Completed [facility] Rho (d) Immune Globulin Unknown Completed [facility] HPV9 Unknown Completed [facility] SARS-COV-2 COVID-19 MODERNA 12+ YRS VACCINE Unknown Completed [facility] SARS-COV-2 COVID-19 MODERNA 12+ YRS VACCINE Unknown Completed [facility] HPV9 Unknown Completed [facility] Influenza Virus Vaccine Quad IM, Preserv and ABX Free 6 MO-64 YRS (FLUCELVAX) Unknown Completed [facility] SARS-COV-2 COVID-19 VACCINE - (MODERNA) Unknown Completed [facility] SARS-COV-2 COVID-19 VACCINE - (MODERNA) Unknown Completed [facility] HPV9 Unknown Completed [facility] Rho (d) Immune Globulin Unknown Completed [facility] TDAP Unknown Completed [facility] Rho (d) Immune Globulin Unknown Completed [facility] Influenza Virus Vaccine Quad IM, Preserv and ABX Free 6 MO-64 YRS (FLUCELVAX) Unknown Completed [facility] Rho (d) Immune Globulin Unknown Completed [facility] HPV9 Unknown Completed [facility] SARS-COV-2 COVID-19 MODERNA 12+ YRS VACCINE Unknown Completed [facility] SARS-COV-2 COVID-19 MODERNA 12+ YRS VACCINE Unknown Completed [facility] HPV9 Unknown Completed [facility] Influenza Virus Vaccine Quad IM, Preserv and ABX Free 6 MO-64 YRS (FLUCELVAX) Unknown Completed [facility] SARS-COV-2 COVID-19 VACCINE - (MODERNA) Unknown Completed [facility] SARS-COV-2 COVID-19 VACCINE - (MODERNA) Unknown Completed [facility] HPV9 Unknown Completed [facility] Rho (d) Immune Globulin Unknown Completed [facility] TDAP Unknown Completed [facility] Rho (d) Immune Globulin Unknown Completed [facility] Influenza Virus Vaccine Quad IM, Preserv and ABX Free 6 MO-64 YRS (FLUCELVAX) Unknown Completed [facility] Rho (d) Immune Globulin Unknown Completed [facility] HPV9 Unknown Completed [facility] SARS-COV-2 COVID-19 MODERNA 12+ YRS VACCINE Unknown Completed [facility] SARS-COV-2 COVID-19 MODERNA 12+ YRS VACCINE Unknown Completed [facility] HPV9 Unknown Completed [facility] Influenza Virus Vaccine Quad IM, Preserv and ABX Free 6 MO-64 YRS (FLUCELVAX) Unknown Completed [facility] SARS-COV-2 COVID-19 VACCINE - (MODERNA) Unknown Completed [facility] [facility] SARS-COV-2 COVID-19 VACCINE - (MODERNA) Unknown Completed [facility] HPV9 Unknown Completed [facility] Rho (d) Immune Globulin Unknown Completed [facility] TDAP Unknown Completed [facility] Rho (d) Immune Globulin Unknown Completed [facility] Influenza Virus Vaccine Quad IM, Preserv and ABX Free 6 MO-64 YRS (FLUCELVAX) Unknown Completed [facility] Rho (d) Immune Globulin Unknown Completed [facility] HPV9 Unknown Completed [facility] SARS-COV-2 COVID-19 MODERNA 12+ YRS VACCINE Unknown Completed [facility] SARS-COV-2 COVID-19 MODERNA 12+ YRS VACCINE Unknown Completed [facility] HPV9 Unknown Completed [facility] Influenza Virus Vaccine Quad IM, Preserv and ABX Free 6 MO-64 YRS (FLUCELVAX) Unknown Completed [facility] SARS-COV-2 COVID-19 VACCINE - (MODERNA) Unknown Completed [facility] SARS-COV-2 COVID-19 VACCINE - (MODERNA) Unknown Completed [facility] HPV9 Unknown Completed [facility] Rho (d) Immune Globulin Unknown Completed [facility] TDAP Unknown Completed [facility] Rho (d) Immune Globulin Unknown Completed [facility] Influenza Virus Vaccine Quad IM, Preserv and ABX Free 6 MO-64 YRS (FLUCELVAX) Unknown Completed [facility] Rho (d) Immune Globulin Unknown Completed [facility] HPV9 Unknown Completed [facility] SARS-COV-2 COVID-19 MODERNA 12+ YRS VACCINE Unknown Completed [facility] SARS-COV-2 COVID-19 MODERNA 12+ YRS VACCINE Unknown Completed [facility] HPV9 Unknown Completed [facility] Influenza Virus Vaccine Quad IM, Preserv and ABX Free 6 MO-64 YRS (FLUCELVAX) Unknown Completed [facility] SARS-COV-2 COVID-19 VACCINE - (MODERNA) Unknown Completed [facility] SARS-COV-2 COVID-19 VACCINE - (MODERNA) Unknown Completed [facility] HPV9 Unknown Completed [facility] Rho (d) Immune Globulin Unknown Completed [facility] TDAP Unknown Completed [facility] Rho (d) Immune Globulin Unknown Completed [facility] Influenza Virus Vaccine Quad IM, Preserv and ABX Free 6 MO-64 YRS (FLUCELVAX) Unknown Completed [facility] Rho (d) Immune Globulin Unknown Completed [facility] HPV9 Unknown Completed [facility] SARS-COV-2 COVID-19 MODERNA 12+ YRS VACCINE Unknown Completed [facility] SARS-COV-2 COVID-19 MODERNA 12+ YRS VACCINE Unknown Completed [facility] HPV9 Unknown Completed [facility] Influenza Virus Vaccine Quad IM, Preserv and ABX Free 6 MO-64 YRS (FLUCELVAX) Unknown Completed [facility] SARS-COV-2 COVID-19 VACCINE - (MODERNA) Unknown Completed [facility] SARS-COV-2 COVID-19 VACCINE - ([facility] Rho (d) Immune Globulin Unknown Completed [facility] TDAP Unknown Completed [facility] Rho (d) Immune Globulin Unknown Completed [facility] Influenza Virus Vaccine Quad IM, Preserv and ABX Free 6 MO-64 YRS (FLUCELVAX) Unknown Completed [facility] Rho (d) Immune Globulin Unknown Completed [facility] HPV9 Unknown Completed [facility] SARS-COV-2 COVID-19 MODERNA 12+ YRS VACCINE Unknown Completed [facility] SARS-COV-2 COVID-19 MODERNA 12+ YRS VACCINE Unknown Completed [facility] HPV9 Unknown Completed [facility] Influenza Virus Vaccine Quad IM, Preserv and ABX Free 6 MO-64 YRS (FLUCELVAX) Unknown Completed [facility] SARS-COV-2 COVID-19 VACCINE - (MODERNA) Unknown Completed [facility] SARS-COV-2 COVID-19 VACCINE - ([facility]) [facility] Rho (d) Immune Globulin Unknown Completed [facility] TDAP Unknown Completed [facility] Rho (d) Immune Globulin Unknown Completed [facility] Influenza Virus Vaccine Quad IM, Preserv and ABX Free 6 MO-64 YRS (FLUCELVAX) Unknown Completed [facility] Rho (d) Immune Globulin Unknown Completed [facility] HPV9 Unknown Completed [facility] SARS-COV-2 COVID-19 MODERNA 12+ YRS VACCINE Unknown Completed [facility] SARS-COV-2 COVID-19 MODERNA 12+ YRS VACCINE Unknown Completed [facility] HPV9 Unknown Completed [facility] Influenza Virus Vaccine Quad IM, Preserv and ABX Free 6 MO-64 YRS (FLUCELVAX) Unknown Completed [facility] SARS-COV-2 COVID-19 VACCINE - (MODERNA) Unknown Completed [facility] SARS-COV-2 COVID-19 VACCINE - (MODERNA) Unknown Completed [facility] HPV9 Unknown Completed [facility] Rho (d) Immune Globulin Unknown Completed [facility] TDAP Unknown Completed [facility] Rho (d) Immune Globulin Unknown Completed [facility] Influenza Virus Vaccine Quad IM, Preserv and ABX Free 6 MO-64 YRS (FLUCELVAX) Unknown Completed [facility] Rho (d) Immune Globulin Unknown Completed [facility] HPV9 Unknown Completed [facility] SARS-COV-2 COVID-19 MODERNA 12+ YRS VACCINE Unknown Completed [facility] SARS-COV-2 COVID-19 MODERNA 12+ YRS VACCINE Unknown Completed [facility] HPV9 Unknown Completed [facility] Influenza Virus Vaccine Quad IM, Preserv and ABX Free 6 MO-64 YRS (FLUCELVAX) Unknown Completed [facility] SARS-COV-2 COVID-19 VACCINE - (MODERNA) Unknown Completed [facility] SARS-COV-2 COVID-19 VACCINE - (MODERNA) Unknown Completed [facility] HPV9 Unknown Completed [facility] Rho (d) Immune Globulin Unknown Completed [facility] TDAP Unknown Completed [facility] Rho (d) Immune Globulin Unknown Completed [facility] Influenza Virus Vaccine Quad IM, Preserv and ABX Free 6 MO-64 YRS (FLUCELVAX) Unknown Completed [facility] Rho (d) Immune Globulin Unknown Completed [facility] HPV9 Unknown Completed [facility] SARS-COV-2 COVID-19 MODERNA 12+ YRS VACCINE Unknown Completed [facility] SARS-COV-2 COVID-19 MODERNA 12+ YRS VACCINE Unknown Completed [facility] HPV9 Unknown Completed [facility] Influenza Virus Vaccine Quad IM, Preserv and ABX Free 6 MO-64 YRS (FLUCELVAX) Unknown Completed [facility] SARS-COV-2 COVID-19 VACCINE - (MODERNA) Unknown Completed [facility] SARS-COV-2 COVID-19 VACCINE - (MODERNA) Unknown Completed [facility] HPV9 Unknown Completed [facility] Rho (d) Immune Globulin Unknown Completed [facility] TDAP Unknown Completed [facility] Rho (d) Immune Globulin Unknown Completed [facility] Influenza Virus Vaccine Quad IM, Preserv and ABX Free 6 MO-64 YRS (FLUCELVAX) Unknown Completed [facility] Rho (d) Immune Globulin Unknown Completed [facility] HPV9 Unknown Completed [facility] SARS-COV-2 COVID-19 MODERNA 12+ YRS VACCINE Unknown Completed [facility] SARS-COV-2 COVID-19 MODERNA 12+ YRS VACCINE Unknown Completed [facility] HPV9 Unknown Completed [facility] Influenza Virus Vaccine Quad IM, Preserv and ABX Free 6 MO-64 YRS (FLUCELVAX) Unknown Completed [facility] SARS-COV-2 COVID-19 VACCINE - (MODERNA) Unknown Completed [facility] SARS-COV-2 COVID-19 VACCINE - (MODERNA) Unknown Completed [facility] HPV9 Unknown Completed [facility] Rho (d) Immune Globulin Unknown Completed [facility] TDAP Unknown Completed [facility] Rho (d) Immune Globulin Unknown Completed [facility] Influenza Virus Vaccine Quad IM, Preserv and ABX Free 6 MO-64 YRS (FLUCELVAX) Unknown Completed [facility] Rho (d) Immune Globulin Unknown Completed [facility] HPV9 Unknown Completed [facility] SARS-COV-2 COVID-19 MODERNA 12+ YRS VACCINE Unknown Completed [facility] SARS-COV-2 COVID-19 MODERNA 12+ YRS VACCINE Unknown Completed [facility] HPV9 Unknown Completed [facility] Influenza Virus Vaccine Quad IM, Preserv and ABX Free 6 MO-64 YRS (FLUCELVAX) Unknown Completed [facility] SARS-COV-2 COVID-19 VACCINE - (MODERNA) Unknown Completed [facility] SARS-COV-2 COVID-19 VACCINE - (MODERNA) Unknown Completed [facility] HPV9 Unknown Completed [facility] Rho (d) Immune Globulin Unknown Completed [facility] TDAP Unknown Completed [facility] Rho (d) Immune Globulin Unknown Completed [facility] Influenza Virus Vaccine Quad IM, Preserv and ABX Free 6 MO-64 YRS (FLUCELVAX) Unknown Completed [facility] Rho (d) Immune Globulin Unknown Completed [facility] HPV9 Unknown Completed [facility] SARS-COV-2 COVID-19 MODERNA 12+ YRS VACCINE Unknown Completed [facility] SARS-COV-2 COVID-19 MODERNA 12+ YRS VACCINE Unknown Completed [facility] HPV9 Unknown Completed [facility] Influenza Virus Vaccine Quad IM, Preserv and ABX Free 6 MO-64 YRS (FLUCELVAX) Unknown Completed [facility] SARS-COV-2 COVID-19 VACCINE - (MODERNA) Unknown Completed [facility] SARS-COV-2 COVID-19 VACCINE - (MODERNA) Unknown Completed [facility] HPV9 Unknown Completed [facility] Rho (d) Immune Globulin Unknown Completed [facility] TDAP Unknown Completed [facility] Rho (d) Immune Globulin Unknown Completed [facility] Influenza Virus Vaccine Quad IM, Preserv and ABX Free 6 MO-64 YRS (FLUCELVAX) Unknown Completed [facility] Rho (d) Immune Globulin Unknown Completed [facility] HPV9 Unknown Completed [facility] SARS-COV-2 COVID-19 MODERNA 12+ YRS VACCINE Unknown Completed [facility] SARS-COV-2 COVID-19 MODERNA 12+ YRS VACCINE Unknown Completed [facility] HPV9 Unknown Completed [facility] Influenza Virus Vaccine Quad IM, Preserv and ABX Free 6 MO-64 YRS (FLUCELVAX) Unknown Completed [facility] SARS-COV-2 COVID-19 VACCINE - (MODERNA) Unknown Completed [facility] SARS-COV-2 COVID-19 VACCINE - (MODERNA) Unknown Completed [facility] HPV9 Unknown Completed [facility] Rho (d) Immune Globulin Unknown Completed [facility] TDAP Unknown Completed [facility] Rho (d) Immune Globulin Unknown Completed [facility] Influenza Virus Vaccine Quad IM, Preserv and ABX Free 6 MO-64 YRS (FLUCELVAX) Unknown Completed [facility] Rho (d) Immune Globulin Unknown Completed [facility] HPV9 Unknown Completed [facility] SARS-COV-2 COVID-19 MODERNA 12+ YRS VACCINE Unknown Completed [facility] SARS-COV-2 COVID-19 MODERNA 12+ YRS VACCINE Unknown Completed [facility] HPV9 Unknown Completed [facility] Influenza Virus Vaccine Quad IM, Preserv and ABX Free 6 MO-64 YRS (FLUCELVAX) Unknown Completed [facility] SARS-COV-2 COVID-19 VACCINE - (MODERNA) Unknown Completed [facility] SARS-COV-2 COVID-19 VACCINE - (MODERNA) Unknown Completed [facility] HPV9 Unknown Completed [facility] Rho (d) Immune Globulin Unknown Completed [facility] TDAP Unknown Completed [facility] Rho (d) Immune Globulin Unknown Completed [facility] Influenza Virus Vaccine Quad IM, Preserv and ABX Free 6 MO-64 YRS (FLUCELVAX) Unknown Completed [facility] Rho (d) Immune Globulin Unknown Completed [facility] HPV9 Unknown Completed [facility] SARS-COV-2 COVID-19 MODERNA 12+ YRS VACCINE Unknown Completed [facility] SARS-COV-2 COVID-19 MODERNA 12+ YRS VACCINE Unknown Completed [facility] HPV9 Unknown Completed [facility] Influenza Virus Vaccine Quad IM, Preserv and ABX Free 6 MO-64 YRS (FLUCELVAX) Unknown Completed [facility] SARS-COV-2 COVID-19 VACCINE - (MODERNA) Unknown Completed [facility] SARS-COV-2 COVID-19 VACCINE - (MODERNA) Unknown Completed [facility] HPV9 Unknown Completed [facility] Rho (d) Immune Globulin Unknown Completed [facility] TDAP Unknown Completed [facility] Rho (d) Immune Globulin Unknown Completed [facility] Influenza Virus Vaccine Quad IM, Preserv and ABX Free 6 MO-64 YRS (FLUCELVAX) Unknown Completed [facility] Rho (d) Immune Globulin Unknown Completed [facility] HPV9 Unknown Completed [facility] SARS-COV-2 COVID-19 MODERNA 12+ YRS VACCINE Unknown Completed [facility] SARS-COV-2 COVID-19 MODERNA 12+ YRS VACCINE Unknown Completed [facility] HPV9 Unknown Completed [facility] Influenza Virus Vaccine Quad IM, Preserv and ABX Free 6 MO-64 YRS (FLUCELVAX) Unknown Completed [facility] SARS-COV-2 COVID-19 VACCINE - (MODERNA) Unknown Completed [facility] SARS-COV-2 COVID-19 VACCINE - ([facility]NA) [facility] Rho (d) Immune Globulin Unknown Completed [facility] TDAP Unknown Completed [facility] Rho (d) Immune Globulin Unknown Completed [facility] Influenza Virus Vaccine Quad IM, Preserv and ABX Free 6 MO-64 YRS (FLUCELVAX) Unknown Completed [facility] Rho (d) Immune Globulin Unknown Completed [facility] HPV9 Unknown Completed [facility] SARS-COV-2 COVID-19 MODERNA 12+ YRS VACCINE Unknown Completed [facility] SARS-COV-2 COVID-19 MODERNA 12+ YRS VACCINE Unknown Completed [facility] HPV9 Unknown Completed [facility] Influenza Virus Vaccine Quad IM, Preserv and ABX Free 6 MO-64 YRS (FLUCELVAX) Unknown Completed [facility] SARS-COV-2 COVID-19 VACCINE - (MODERNA) Unknown Completed [facility] SARS-COV-2 COVID-19 VACCINE - (MODERNA) Unknown Completed [facility] HPV9 Unknown Completed [facility] Rho (d) Immune Globulin Unknown Completed [facility] TDAP Unknown Completed [facility] Rho (d) Immune Globulin Unknown Completed [facility] Influenza Virus Vaccine Quad IM, Preserv and ABX Free 6 MO-64 YRS (FLUCELVAX) Unknown Completed [facility] Rho (d) Immune Globulin Unknown Completed [facility] HPV9 Unknown Completed [facility] SARS-COV-2 COVID-19 MODERNA 12+ YRS VACCINE Unknown Completed [facility] SARS-COV-2 COVID-19 MODERNA 12+ YRS VACCINE Unknown Completed [facility] HPV9 Unknown Completed [facility] Influenza Virus Vaccine Quad IM, Preserv and ABX Free 6 MO-64 YRS (FLUCELVAX) Unknown Completed [facility] SARS-COV-2 COVID-19 VACCINE - (MODERNA) Unknown Completed [facility] SARS-COV-2 COVID-19 VACCINE - (MODERNA) Unknown Completed [facility] HPV9 Unknown Completed [facility] Rho (d) Immune Globulin Unknown Completed [facility] TDAP Unknown Completed [facility] Rho (d) Immune Globulin Unknown Completed [facility] Influenza Virus Vaccine Quad IM, Preserv and ABX Free 6 MO-64 YRS (FLUCELVAX) Unknown Completed [facility] Rho (d) Immune Globulin Unknown Completed [facility] HPV9 Unknown Completed [facility] SARS-COV-2 COVID-19 MODERNA 12+ YRS VACCINE Unknown Completed [facility] SARS-COV-2 COVID-19 MODERNA 12+ YRS VACCINE Unknown Completed [facility] HPV9 Unknown Completed [facility] Influenza Virus Vaccine Quad IM, Preserv and ABX Free 6 MO-64 YRS (FLUCELVAX) Unknown Completed [facility] SARS-COV-2 COVID-19 VACCINE - (MODERNA) Unknown Completed [facility] SARS-COV-2 COVID-19 VACCINE - (MODERNA) Unknown Completed [facility] HPV9 Unknown Completed [facility] Rho (d) Immune Globulin Unknown Completed [facility] TDAP Unknown Completed [facility] Rho (d) Immune Globulin Unknown Completed [facility] Influenza Virus Vaccine Quad IM, Preserv and ABX Free 6 MO-64 YRS (FLUCELVAX) Unknown Completed [facility] Rho (d) Immune Globulin Unknown Completed [facility] HPV9 Unknown Completed [facility] SARS-COV-2 COVID-19 MODERNA 12+ YRS VACCINE Unknown Completed [facility] SARS-COV-2 COVID-19 MODERNA 12+ YRS VACCINE Unknown Completed [facility] HPV9 Unknown Completed [facility] Influenza Virus Vaccine Quad IM, Preserv and ABX Free 6 MO-64 YRS (FLUCELVAX) Unknown Completed [facility] SARS-COV-2 COVID-19 VACCINE - (MODERNA) Unknown Completed [facility] SARS-COV-2 COVID-19 VACCINE - (MODERNA) Unknown Completed [facility] HPV9 Unknown Completed [facility] Rho (d) Immune Globulin Unknown Completed [facility] TDAP Unknown Completed [facility] Rho (d) Immune Globulin Unknown Completed [facility] Influenza Virus Vaccine Quad IM, Preserv and ABX Free 6 MO-64 YRS (FLUCELVAX) Unknown Completed [facility] Rho (d) Immune Globulin Unknown Completed [facility] HPV9 Unknown Completed [facility] SARS-COV-2 COVID-19 MODERNA 12+ YRS VACCINE Unknown Completed [facility] SARS-COV-2 COVID-19 MODERNA 12+ YRS VACCINE Unknown Completed [facility] HPV9 Unknown Completed [facility] Influenza Virus Vaccine Quad IM, Preserv and ABX Free 6 MO-64 YRS (FLUCELVAX) Unknown Completed [facility] SARS-COV-2 COVID-19 VACCINE - (MODERNA) Unknown Completed [facility] SARS-COV-2 COVID-19 VACCINE - (MODERNA) Unknown Completed [facility] HPV9 Unknown Completed [facility] Rho (d) Immune Globulin Unknown Completed [facility] TDAP Unknown Completed [facility] Rho (d) Immune Globulin Unknown Completed [facility] Influenza Virus Vaccine Quad IM, Preserv and ABX Free 6 MO-64 YRS (FLUCELVAX) Unknown Completed [facility] Rho (d) Immune Globulin Unknown Completed [facility] HPV9 Unknown Completed [facility] SARS-COV-2 COVID-19 MODERNA 12+ YRS VACCINE Unknown Completed [facility] SARS-COV-2 COVID-19 MODERNA 12+ YRS VACCINE Unknown Completed [facility] HPV9 Unknown Completed [facility] Influenza Virus Vaccine Quad IM, Preserv and ABX Free 6 MO-64 YRS (FLUCELVAX) Unknown Completed [facility] SARS-COV-2 COVID-19 VACCINE - (MODERNA) Unknown Completed [facility] SARS-COV-2 COVID-19 VACCINE - (MODERNA) Unknown Completed [facility] HPV9 Unknown Completed [facility] Rho (d) Immune Globulin Unknown Completed [facility] TDAP Unknown Completed [facility] Rho (d) Immune Globulin Unknown Completed [facility] Influenza Virus Vaccine Quad IM, Preserv and ABX Free 6 MO-64 YRS (FLUCELVAX) Unknown Completed [facility] Rho (d) Immune Globulin Unknown Completed [facility] HPV9 Unknown Completed [facility] SARS-COV-2 COVID-19 MODERNA 12+ YRS VACCINE Unknown Completed [facility] SARS-COV-2 COVID-19 MODERNA 12+ YRS VACCINE Unknown Completed [facility] HPV9 Unknown Completed [facility] Influenza Virus Vaccine Quad IM, Preserv and ABX Free 6 MO-64 YRS (FLUCELVAX) Unknown Completed [facility] SARS-COV-2 COVID-19 VACCINE - (MODERNA) Unknown Completed [facility] SARS-COV-2 COVID-19 VACCINE - (MODERNA) Unknown Completed [facility] HPV9 Unknown Completed [facility] Rho (d) Immune Globulin Unknown Completed [facility] TDAP Unknown Completed [facility] Rho (d) Immune Globulin Unknown Completed [facility] Influenza Virus Vaccine Quad IM, Preserv and ABX Free 6 MO-64 YRS (FLUCELVAX) Unknown Completed [facility] Rho (d) Immune Globulin Unknown Completed [facility] HPV9 Unknown Completed [facility] SARS-COV-2 COVID-19 MODERNA 12+ YRS VACCINE Unknown Completed [facility] SARS-COV-2 COVID-19 MODERNA 12+ YRS VACCINE Unknown Completed [facility] HPV9 Unknown Completed [facility] Influenza Virus Vaccine Quad IM, Preserv and ABX Free 6 MO-64 YRS (FLUCELVAX) Unknown Completed [facility] SARS-COV-2 COVID-19 VACCINE - (MODERNA) Unknown Completed [facility] SARS-COV-2 COVID-19 VACCINE - (MODERNA) Unknown Completed [facility] HPV9 Unknown Completed [facility] Rho (d) Immune Globulin Unknown Completed [facility] TDAP Unknown Completed [facility] Rho (d) Immune Globulin Unknown Completed [facility] Influenza Virus Vaccine Quad IM, Preserv and ABX Free 6 MO-64 YRS (FLUCELVAX) Unknown Completed [facility] Rho (d) Immune Globulin Unknown Completed [facility] HPV9 Unknown Completed [facility] SARS-COV-2 COVID-19 MODERNA 12+ YRS VACCINE Unknown Completed [facility] SARS-COV-2 COVID-19 MODERNA 12+ YRS VACCINE Unknown Completed [facility] HPV9 Unknown Completed [facility] Influenza Virus Vaccine Quad IM, Preserv and ABX Free 6 MO-64 YRS (FLUCELVAX) Unknown Completed [facility] SARS-COV-2 COVID-19 VACCINE - (MODERNA) Unknown Completed [facility] SARS-COV-2 COVID-19 VACCINE - (MODERNA) Unknown Completed [facility] HPV9 Unknown Completed [facility] Rho (d) Immune Globulin Unknown Completed [facility] TDAP Unknown Completed [facility] Rho (d) Immune Globulin Unknown Completed [facility] Influenza Virus Vaccine Quad IM, Preserv and ABX Free 6 MO-64 YRS (FLUCELVAX) Unknown Completed [facility] Rho (d) Immune Globulin Unknown Completed [facility] HPV9 Unknown Completed [facility] SARS-COV-2 COVID-19 MODERNA 12+ YRS VACCINE Unknown Completed [facility] SARS-COV-2 COVID-19 MODERNA 12+ YRS VACCINE Unknown Completed [facility] HPV9 Unknown Completed [facility] Influenza Virus Vaccine Quad IM, Preserv and ABX Free 6 MO-64 YRS (FLUCELVAX) Unknown Completed [facility] SARS-COV-2 COVID-19 VACCINE - (MODERNA) Unknown Completed [facility] SARS-COV-2 COVID-19 VACCINE - (MODERNA) Unknown Completed [facility] HPV9 Unknown Completed [facility] Rho (d) Immune Globulin Unknown Completed [facility] TDAP Unknown Completed [facility] Rho (d) Immune Globulin Unknown Completed [facility] Influenza Virus Vaccine Quad IM, Preserv and ABX Free 6 MO-64 YRS (FLUCELVAX) Unknown Completed [facility] Rho (d) Immune Globulin Unknown Completed [facility] HPV9 Unknown Completed [facility] SARS-COV-2 COVID-19 MODERNA 12+ YRS VACCINE Unknown Completed [facility] SARS-COV-2 COVID-19 MODERNA 12+ YRS VACCINE Unknown Completed [facility] HPV9 Unknown Completed [facility] Influenza Virus Vaccine Quad IM, Preserv and ABX Free 6 MO-64 YRS (FLUCELVAX) Unknown Completed [facility] SARS-COV-2 COVID-19 VACCINE - (MODERNA) Unknown Completed [facility] SARS-COV-2 COVID-19 VACCINE - (MODERNA) Unknown Completed [facility] HPV9 Unknown Completed [facility] Rho (d) Immune Globulin Unknown Completed [facility] TDAP Unknown Completed [facility] Rho (d) Immune Globulin Unknown Completed [facility] Influenza Virus Vaccine Quad IM, Preserv and ABX Free 6 MO-64 YRS (FLUCELVAX) Unknown Completed [facility] Rho (d) Immune Globulin Unknown Completed [facility] HPV9 Unknown Completed [facility] TDAP Unknown Completed [facility] Flu Injectable MDCK Pres-Free (FLUCELVAX) Unknown Completed [facility] Vital Signs Vital Name Observation Time Observation Value Comments S ource Systolic blood pressure 2023-12-28 21:14:00 111 mm[Hg] [facility] Diastolic blood pressure 2023-12-28 21:14:00 73 mm[Hg] [facility] Heart rate 2023-12-28 21:14:00 100 /min [facility] Body temperature 2023-12-28 21:14:00 36.17 [facility] Respiratory rate 2023-12-28 21:14:00 20 /min [facility] Body height 2023-12-28 21:14:00 162.6 cm [facility] Body weight 2023-12-28 21:14:00 93.214 kg [facility] BMI 2023-12-28 21:14:00 35.27 kg/m2 [facility] Systolic blood pressure 2023-12-13 21:33:00 110 mm[Hg] [facility] Diastolic blood pressure 2023-12-13 21:33:00 61 mm[Hg] [facility] Heart rate 2023-12-13 21:33:00 79 /min Un[facility] Body temperature 2023-12-13 21:33:00 36.44 [facility] Body height 2023-12-13 21:33:00 162.6 cm [facility] Body weight 2023-12-13 21:33:00 91.354 kg [facility] BMI 2023-12-13 21:33:00 34.57 kg/m2 [facility] Systolic blood pressure 2023-11-22 21:08:00 117 mm[Hg] [facility] Diastolic blood pressure 2023-11-22 21:08:00 73 mm[Hg] [facility] Heart rate 2023-11-22 21:08:00 89 /min Un[facility] Body temperature 2023-11-22 21:08:00 36.11 [facility] Respiratory rate 2023-11-22 21:08:00 18 /min [facility] Body height 2023-11-22 21:08:00 162.6 cm [facility] Body weight 2023-11-22 21:08:00 88.633 kg [facility] BMI 2023-11-22 21:08:00 33.54 kg/m2 [facility] Systolic blood pressure 2023-10-12 19:46:00 107 mm[Hg] [facility] Diastolic blood pressure 2023-10-12 19:46:00 63 mm[Hg] [facility] Heart rate 2023-10-12 19:46:00 73 /min [facility] Respiratory rate 2023-10-12 19:46:00 16 /min [facility] Body height 2023-10-12 19:46:00 162.6 cm [facility] Body weight 2023-10-12 19:46:00 83.416 kg [facility] BMI 2023-10-12 19:46:00 31.57 kg/m2 [facility] Systolic blood pressure 2023-09-14 20:03:00 113 mm[Hg] [facility] Diastolic blood pressure 2023-09-14 20:03:00 74 mm[Hg] [facility] Heart rate 2023-09-14 20:03:00 76 /min [facility] Body temperature 2023-09-14 20:03:00 36.67 [facility] Respiratory rate 2023-09-14 20:03:00 16 /min [facility] Body height 2023-09-14 20:03:00 162.6 cm [facility] Body weight 2023-09-14 20:03:00 86.637 kg [facility] BMI 2023-09-14 20:03:00 32.79 kg/m2 [facility] Systolic blood pressure 2023-09-04 00:18:00 129 mm[Hg] [facility] Diastolic blood pressure 2023-09-04 00:18:00 78 mm[Hg] [facility] Heart rate 2023-09-04 00:18:00 84 /min [facility] Body temperature 2023-09-04 00:18:00 36.78 [facility] Respiratory rate 2023-09-04 00:18:00 18 /min [facility] Body height 2023-09-04 00:18:00 162.6 cm [facility] Body weight 2023-09-04 00:18:00 79.379 kg [facility] BMI 2023-09-04 00:18:00 30.04 kg/m2 [facility] Oxygen saturation in Arterial blood by Pulse oximetry 2023-09-04 00:18:00 100 /min [facility] Systolic blood pressure 2023-09-03 17:48:00 115 mm[Hg] [facility] Diastolic blood pressure 2023-09-03 17:48:00 77 mm[Hg] [facility] Heart rate 2023-09-03 17:48:00 84 /min [facility] Body temperature 2023-09-03 17:48:00 37.17 [facility] Respiratory rate 2023-09-03 17:48:00 18 /min [facility] Oxygen saturation in Arterial blood by Pulse oximetry 2023-09-03 17:48:00 100 /min [facility] Systolic blood pressure 2023-08-17 14:56:00 112 mm[Hg] [facility] Diastolic blood pressure 2023-08-17 14:56:00 72 mm[Hg] [facility] Heart rate 2023-08-17 14:56:00 99 /min [facility] Respiratory rate 2023-08-17 14:56:00 18 /min [facility] Body height 2023-08-17 14:56:00 160 cm [facility] Body weight 2023-08-17 14:56:00 85.276 kg [facility] BMI 2023-08-17 14:56:00 33.30 kg/m2 [facility] Systolic blood pressure 2023-03-30 20:41:00 115 mm[Hg] Ani Almeida ld - External Diastolic blood pressure 2023-03-30 20:41:00 80 mm[Hg] Ani Almeida ld - External Heart rate 2023-03-30 20:41:00 70 /min Amara y Seybold - External Body temperature 2023-03-30 20:41:00 36.22 Tiffanie Ani Garrisonybold - External Body height 2023-03-30 20:41:00 162.6 cm Jolanta puente Seybold - External Body weight 2023-03-30 20:41:00 77.565 kg Jolanta puente Seybold - External BMI 2023-03-30 20:41:00 29.35 kg/m2 Jolanta puente Seybold - External Oxygen saturation in Arterial blood by Pulse oximetry 2023-03-30 20:41:00 97 /min Ani Barneso ld - External Systolic blood pressure 2023-03-26 19:44:00 131 mm[Hg] [facility] Diastolic blood pressure 2023-03-26 19:44:00 85 mm[Hg] [facility] Heart rate 2023-03-26 19:44:00 74 /min [facility] Body temperature 2023-03-26 19:44:00 36 [facility] Respiratory rate 2023-03-26 19:44:00 18 /min [facility] Body height 2023-03-26 19:44:00 160 cm [facility] Body weight 2023-03-26 19:44:00 80.015 kg [facility] BMI 2023-03-26 19:44:00 31.25 kg/m2 [facility] Systolic blood pressure 2023-03-07 13:31:00 120 mm[Hg] [facility] Diastolic blood pressure 2023-03-07 13:31:00 78 mm[Hg] [facility] Heart rate 2023-03-07 13:31:00 77 [facility] Body temperature 2023-03-07 13:31:00 36.28 T[facility] Respiratory rate 2023-03-07 13:31:00 18 /min [facility] Oxygen saturation in Arterial blood by Pulse oximetry 2023-03-07 13:31:00 97 /min [facility] Body height 2023-03-05 17:16:00 160 cm [facility] Body weight 2023-03-05 17:16:00 92.987 kg [facility] BMI 2023-03-05 17:16:00 36.31 kg/m2 [facility] Systolic blood pressure 2023-02-20 15:02:00 131 mm[Hg] [facility] Diastolic blood pressure 2023-02-20 15:02:00 83 mm[Hg] [facility] Heart rate 2023-02-20 15:02:00 95 /min [facility] Body temperature 2023-02-20 15:02:00 35.89 [facility] Respiratory rate 2023-02-20 15:02:00 18 /min [facility] Body height 2023-02-20 15:02:00 160 cm [facility] Body weight 2023-02-20 15:02:00 91.445 kg [facility] BMI 2023-02-20 15:02:00 35.71 kg/m2 [facility] Heart rate 2023-02-16 21:16:00 71 /min [facility] Oxygen saturation in Arterial blood by Pulse oximetry 2023-02-16 21:16:00 100 /min [facility] Systolic blood pressure 2023-02-16 20:30:00 97 mm[Hg] [facility] Diastolic blood pressure 2023-02-16 20:30:00 51 mm[Hg] [facility] Body temperature 2023-02-16 19:18:00 37 T[facility] Respiratory rate 2023-02-16 19:18:00 18 /min [facility] Body height 2023-02-16 19:18:00 160 cm [facility] Body weight 2023-02-16 19:18:00 91.627 kg [facility] BMI 2023-02-16 19:18:00 35.78 kg/m2 [facility] Systolic blood pressure 2023-02-13 15:58:00 113 mm[Hg] [facility] Diastolic blood pressure 2023-02-13 15:58:00 72 mm[Hg] [facility] Heart rate 2023-02-13 15:58:00 81 /min Un[facility] Body temperature 2023-02-13 15:58:00 36.5 [facility] Respiratory rate 2023-02-13 15:58:00 17 /min [facility] Body height 2023-02-13 15:58:00 [facility].1 [facility] 2023-02-13 15:58:00 91.853 kg [facility] BMI 2023-02-13 15:58:00 33.70 kg/m2 [facility] Systolic blood pressure 2023-02-05 20:57:00 130 mm[Hg] [facility] Diastolic blood pressure 2023-02-05 20:57:00 78 mm[Hg] [facility] Heart rate 2023-02-05 20:57:00 100 /min [facility] 2023-02-05 20:57:00 35.72 Tiffanie [facility] Respiratory rate 2023-02-05 20:57:00 18 /min [facility] Body height 2023-02-05 20:57:00 165.1 cm [facility] Body weight 2023-02-05 20:57:00 91.808 kg [facility] BMI 2023-02-05 20:57:00 33.68 kg/m2 [facility] Systolic blood pressure 2023-01-23 18:24:00 121 mm[Hg] [facility] Diastolic blood pressure 2023-01-23 18:24:00 67 mm[Hg] [facility] Heart rate 2023-01-23 18:24:00 91 /min Un[facility] Body temperature 2023-01-23 18:24:00 36.78 Tiffanie [facility] Respiratory rate 2023-01-23 18:24:00 18 /min [facility] Body height 2023-01-23 18:24:00 165.1 cm [facility] weight 2023-01-23 18:24:00 90.992 kg [facility] BMI 2023-01-23 18:24:00 33.38 kg/m2 [facility] Systolic blood pressure 2023-01-10 14:37:00 120 mm[Hg] [facility] Diastolic blood pressure 2023-01-10 14:37:00 61 mm[Hg] [facility] Heart rate 2023-01-10 14:37:00 95 /min [facility] Body temperature 2023-01-10 14:37:00 36.11 Tiffanie [facility] Respiratory rate 2023-01-10 14:37:00 17 /min [facility] Body height 2023-01-10 14:37:00 165.1 cm [facility] Body weight 2023-01-10 14:37:00 91.082 kg [facility] BMI 2023-01-10 14:37:00 33.41 kg/m2 [facility] Systolic blood pressure 2022-12-21 14:21:00 103 mm[Hg] [facility] Diastolic blood pressure 2022-12-21 14:21:00 58 mm[Hg] [facility] Heart rate 2022-12-21 14:21:00 80 /min [facility] Body temperature 2022-12-21 14:21:00 36.56 T[facility] Respiratory rate 2022-12-21 14:21:00 20 /min [facility] Body height 2022-12-21 14:21:00 165.1 cm [facility] Body weight 2022-12-21 14:21:00 88.86 kg [facility] BMI 2022-12-21 14:21:00 32.60 kg/m2 [facility] Systolic blood pressure 2022-12-12 19:09:00 110 mm[Hg] [facility] Diastolic blood pressure 2022-12-12 19:09:00 62 mm[Hg] [facility] Heart rate 2022-12-12 19:09:00 84 /min [facility] Body temperature 2022-12-12 19:09:00 36 Tiff[facility] Respiratory rate 2022-12-12 19:09:00 18 /min [facility] Body height 2022-12-12 19:09:00 165.1 cm [facility] 2022-12-12 19:09:00 88.587 kg [facility] BMI 2022-12-12 19:09:00 32.50 kg/m2 [facility] Systolic blood pressure 2022-12-07 15:05:00 120 mm[Hg] [facility] Diastolic blood pressure 2022-12-07 15:05:00 64 mm[Hg] [facility] Heart rate 2022-12-07 15:05:00 85 /min [facility] Body temperature 2022-12-07 15:05:00 36.33 T[facility] Respiratory rate 2022-12-07 15:05:00 20 /min [facility] Body height 2022-12-07 15:05:00 165.1 cm [facility] Body weight 2022-12-07 15:05:00 89.585 kg [facility] BMI 2022-12-07 15:05:00 32.87 kg/m2 [facility] Systolic blood pressure 2022-11-16 14:49:00 126 mm[Hg] [facility] Diastolic blood pressure 2022-11-16 14:49:00 67 mm[Hg] [facility] Heart rate 2022-11-16 14:49:00 91 /min [facility] Body temperature 2022-11-16 14:49:00 35.72 Tiff[facility] Respiratory rate 2022-11-16 14:49:00 18 /min [facility] Body height 2022-11-16 14:49:00 165.1 cm [facility] Body weight 2022-11-16 14:49:00 86.546 kg [facility] BMI 2022-11-16 14:49:00 31.75 kg/m2 [facility] Systolic blood pressure 2022-10-26 20:50:00 114 mm[Hg] [facility] Diastolic blood pressure 2022-10-26 20:50:00 62 mm[Hg] [facility] Heart rate 2022-10-26 20:50:00 75 /min [facility] Body temperature 2022-10-26 20:50:00 36.06 T[facility] Respiratory rate 2022-10-26 20:50:00 18 /min [facility] Body height 2022-10-26 20:50:00 165.1 cm [facility] Body weight 2022-10-26 20:50:00 86.093 kg [facility] BMI 2022-10-26 20:50:00 31.58 kg/m2 [facility] Systolic blood pressure 2022-09-18 20:35:00 124 mm[Hg] [facility] Diastolic blood pressure 2022-09-18 20:35:00 71 mm[Hg] [facility] Heart rate 2022-09-18 20:35:00 78 /min [facility] Body temperature 2022-09-18 20:35:00 36.39 T[facility] Respiratory rate 2022-09-18 20:35:00 18 /min [facility] Body height 2022-09-18 20:35:00 165.1 cm [facility] Body weight 2022-09-18 20:35:00 79.465 kg [facility] BMI 2022-09-18 20:35:00 29.15 kg/m2 [facility] Systolic blood pressure 2022-08-21 20:20:00 115 mm[Hg] [facility] Diastolic blood pressure 2022-08-21 20:20:00 66 mm[Hg] [facility] Heart rate 2022-08-21 20:20:00 80 /min [facility] Body temperature 2022-08-21 20:20:00 35.61 T[facility] Respiratory rate 2022-08-21 20:20:00 18 /min [facility] Body height 2022-08-21 20:20:00 165.1 cm [facility] Body weight 2022-08-21 20:20:00 77.701 [facility] BMI 2022-08-21 20:20:00 28.51 kg/m2 [facility] Systolic blood pressure 2022-07-24 18:20:00 120 mm[Hg] [facility] Diastolic blood pressure 2022-07-24 18:20:00 66 mm[Hg] [facility] Heart rate 2022-07-24 18:20:00 60 /min [facility] Body temperature 2022-07-24 18:20:00 36.28 T[facility] Respiratory rate 2022-07-24 18:20:00 18 /min [facility] Body height 2022-07-24 18:20:00 165.1 cm [facility] Body weight 2022-07-24 18:20:00 77.021 kg [facility] BMI 2022-07-24 18:20:00 28.26 kg/m2 [facility] Systolic blood pressure 2022-04-11 22:15:00 120 mm[Hg] [facility] Diastolic blood pressure 2022-04-11 22:15:00 73 mm[Hg] [facility] Heart rate 2022-04-11 22:15:00 68 /min [facility] Body height 2022-04-11 22:15:00 167.6 cm [facility] Body weight 2022-04-11 22:15:00 81.647 kg [facility] BMI 2022-04-11 22:15:00 29.05 kg/m2 [facility] Oxygen saturation in Arterial blood by Pulse oximetry 2022-04-11 22:15:00 99 /min [facility] Systolic blood pressure 2022-03-28 21:22:00 116 mm[Hg] [facility] Diastolic blood pressure 2022-03-28 21:22:00 71 mm[Hg] [facility] Heart rate 2022-03-28 21:22:00 70 /min [facility] Body temperature 2022-03-28 21:22:00 36.83 T[facility] Respiratory rate 2022-03-28 21:22:00 16 /min [facility] Body height 2022-03-28 21:22:00 162.6 cm [facility] Body weight 2022-03-28 21:22:00 77.656 kg [facility] BMI 2022-03-28 21:22:00 29.39 kg/m2 [facility] Oxygen saturation in Arterial blood by Pulse oximetry 2022-03-28 21:22:00 99 /min [facility] Systolic blood pressure 2022-03-27 16:40:00 116 mm[Hg] [facility] Diastolic blood pressure 2022-03-27 16:40:00 69 mm[Hg] [facility] Heart rate 2022-03-27 16:40:00 74 [facility] Body temperature 2022-03-27 16:40:00 37.11 [facility] Respiratory rate 2022-03-27 16:40:00 18 /min [facility] Body height 2022-03-27 16:40:00 162.6 cm [facility] Body weight 2022-03-27 16:40:00 77.565 kg [facility] BMI 2022-03-27 16:40:00 29.35 kg/m2 [facility] Systolic blood pressure 2022-03-24 00:54:08 122 mm[Hg] [facility] Diastolic blood pressure 2022-03-24 00:54:08 77 mm[Hg] [facility] Heart rate 2022-03-24 00:54:08 85 /min [facility] Body temperature 2022-03-24 00:54:08 36.39 [facility] Respiratory rate 2022-03-24 00:54:08 18 /min [facility] Oxygen saturation in Arterial blood by Pulse oximetry 2022-03-24 00:54:08 100 /min [facility] Body weight 2022-03-23 19:30:00 81.647 kg [facility] BMI 2022-03-23 19:30:00 29.95 kg/m2 [facility] Systolic blood pressure 2022-03-23 18:51:00 112 mm[Hg] [facility] Diastolic blood pressure 2022-03-23 18:51:00 70 mm[Hg] [facility] Heart rate 2022-03-23 18:51:00 2 /min [facility] Body temperature 2022-03-23 18:51:00 37.22 T[facility] Respiratory rate 2022-03-23 18:51:00 17 /min [facility] Body weight 2022-03-23 18:51:00 72.576 kg [facility] BMI 2022-03-23 18:51:00 26.63 kg/m2 [facility] Oxygen saturation in Arterial blood by Pulse oximetry 2022-03-23 18:51:00 100 /min [facility] Systolic blood pressure 2022-03-15 20:07:00 108 mm[Hg] [facility] Diastolic blood pressure 2022-03-15 20:07:00 69 mm[Hg] [facility] Heart rate 2022-03-15 20:07:00 73 /min [facility] Body temperature 2022-03-15 20:07:00 37.06 T[facility] Respiratory rate 2022-03-15 20:07:00 18 /min [facility] Body height 2022-03-15 20:07:00 165.1 cm [facility] Body weight 2022-03-15 20:07:00 78.019 kg [facility] BMI 2022-03-15 20:07:00 28.62 kg/m2 [facility] Systolic blood pressure 2022-02-22 21:55:00 117 mm[Hg] [facility] Diastolic blood pressure 2022-02-22 21:55:00 71 mm[Hg] [facility] Heart rate 2022-02-22 21:55:00 69 /min [facility] Body temperature 2022-02-22 21:55:00 36.67 [facility] Respiratory rate 2022-02-22 21:55:00 18 /min [facility] Body height 2022-02-22 21:55:00 165.1 cm [facility] Body weight 2022-02-22 21:55:00 77.111 kg [facility] BMI 2022-02-22 21:55:00 28.29 kg/m2 [facility] Systolic blood pressure 2022-01-24 20:48:00 113 mm[Hg] [facility] Diastolic blood pressure 2022-01-24 20:48:00 69 mm[Hg] [facility] Heart rate 2022-01-24 20:48:00 74 /min [facility] Body temperature 2022-01-24 20:48:00 36.72 [facility] Respiratory rate 2022-01-24 20:48:00 18 /min [facility] Body height 2022-01-24 20:48:00 165.1 cm [facility] Body weight 2022-01-24 20:48:00 75.751 kg [facility] BMI 2022-01-24 20:48:00 27.79 kg/m2 [facility] Systolic blood pressure 2022-01-06 18:28:00 110 mm[Hg] [facility] Diastolic blood pressure 2022-01-06 18:28:00 69 mm[Hg] [facility] Heart rate 2022-01-06 18:28:00 74 /min [facility] Body temperature 2022-01-06 18:28:00 36.89 [facility] Respiratory rate 2022-01-06 18:28:00 18 /min [facility] Body height 2022-01-06 18:28:00 160 cm [facility] Body weight 2022-01-06 18:28:00 75.841 kg [facility] BMI 2022-01-06 18:28:00 29.62 kg/m2 [facility] Systolic blood pressure 2021-12-30 15:10:00 116 mm[Hg] [facility] Diastolic blood pressure 2021-12-30 15:10:00 79 mm[Hg] [facility] Heart rate 2021-12-30 15:10:00 78 /min [facility] Body temperature 2021-12-30 15:10:00 36.78 Tiffanie [facility] Respiratory rate 2021-12-30 15:10:00 18 /min [facility] Body height 2021-12-30 15:10:00 160 cm [facility] Body weight 2021-12-30 15:10:00 75.841 kg [facility] BMI 2021-12-30 15:10:00 29.62 kg/m2 [facility] Procedures Procedure Date / Time Performed Performing Clinician Source TDAP VACCINE, >11 YRS, IM 2023-12-28 21:45:35 Rina Jewell [facility] FLU VACC (), 6 MO-64 YRS, .5ML, IM, TIV (FLUCELVAX) 2023-12-28 21:45:35 Rina Jewell [facility] SECOND AND THIRD TRIMESTER ULTRASOUND 2023-12-28 14:45:00 Beni [facility] SECOND AND THIRD TRIMESTER ULTRASOUND 2023-12-28 14:40:00 Beni [facility] POCT URINALYSIS W/O SPECIFIC GRAVITY 2023-12-28 00:00:00 Rina [facility]ell [facility] POCT URINALYSIS W/O SPECIFIC GRAVITY 2023-12-13 00:00:00 Pasquale Paula [facility] SECOND AND THIRD TRIMESTER ULTRASOUND 2023-12-06 17:09:[facility] W/O SPECIFIC GRAVITY 2023-11-22 00:00:00 Beni [facility] SECOND AND THIRD TRIMESTER ULTRASOUND 2023-11-02 15:48:00 [facility] W/O SPECIFIC GRAVITY 2023-10-12 00:00:00 Pasquale Paula [facility] POCT URINALYSIS W/O SPECIFIC GRAVITY 2023-09-14 00:00:00 Pasquale Paula [facility] <14 WEEKS US LIMITED 2023-08-17 19:13:13 Pasquale Paula [facility] POCT TEST 2023-08-17 00:00:00 Pasquale Paula [facility] GARDASIL 9 (HPV 9V) VACCINE 2023-03-26 19:57:51 Shanthi Bauer [facility] CREATININE 2023-03-06 23:43:00 Rustam [facility] CBC WITH DIFF 2023-03-06 10:15:00 Hansa Mesa [facility] HB -MATERNAL HEMORRHAGE SCREEN 2023-03-06 10:15:00 Rustam Yu [facility] VENOUS CORD GAS 2023-03-06 02:21:00 Viji Cevallos [facility] CENTRAL NEURAXIAL BLOCK 2023-03-05 20:52:00 Sandip Forte [facility] CBC WITH DIFF 2023-03-05 17:35:00 Viji Cevallos [facility] HEPATITIS B SURFACE ANTIGEN 2023-03-05 17:35:00 Viji Cevallos [facility] ANTI-D R/O PANEL 2023-03-05 17:35:00 Rustam Yu [facility] HB ABO GROUPING 2023-03-05 17:35:00 Viji Cevallos [facility] RHO (D) IMMUNE GLOBULIN 2023-03-05 17:35:00 Me Bonita vicente [facility] SYPHILIS IGG/IGM 2023-03-05 17:35:00 Viji Cevallos [facility] POCT URINALYSIS 2023-02-20 15:06:00 Shanthi Bauer [facility] ADC ONLY - FERN TEST 2023-02-16 21:02:00 Adum, Rosibel Johnson [facility] EXTRA TUBE URINE 2023-02-16 19:37:00 Adum, Rosibel Johnson [facility] ASSIGNMENT OF BENEFITS 2023-02-16 18:55:24 Docto r Unassigned, Mylo [facility] CONSENT/REFUSAL FOR DIAGNOSIS AND TREATMENT 2023-02-16 18:51:28 Doctor Unassigned, Mylo [facility] DME/SUPPLY JUSTIFICATION 2023-02-13 05:01:00 Doc juana Unassigned, Mylo [facility] POCT URINALYSIS 2023-02-13 00:00:00 Shanthi Bauer [facility] POCT URINALYSIS 2023-02-05 20:59:00 Shanthi Bauer [facility] POCT URINALYSIS 2023-01-23 18:27:00 Shanthi Bauer [facility] FLU VACC (), 6 MO-64 YRS, .5ML, IM, QUAD (FLUCELVAX) 2023-01-10 15:20:48 Shanthi Bauer [facility] ASSIGNMENT OF BENEFITS 2023-01-10 14:19:55 Chris r Unassigned, Mylo [facility] POCT URINALYSIS 2023-01-10 00:00:00 Shanthi Bauer [facility] HB ABO GROUPING 2022-12-21 15:25:00 Shanthi Bauer [facility] SYPHILIS IGG/IGM 2022-12-21 15:25:00 Lesvia Bauer [facility] TDAP VACCINE, >11 YRS, IM 2022-12-21 14:48:46 Shanthi Bauer [facility] POCT URINALYSIS 2022-12-21 00:00:00 Shanthi Bauer [facility] SECOND AND THIRD TRIMESTER ULTRASOUND 2022-12-12 20:43:00 Shanthi Bauer [facility] POCT URINALYSIS 2022-12-12 19:12:00 Shanthi Bauer [facility] POCT URINALYSIS 2022-12-07 00:00:00 Shanthi Bauer [facility] POCT URINALYSIS 2022-11-16 14:50:00 Shanthi Bauer [facility] MISCELLANEOUS SENDOUT TEST 2022-11-10 05:01:00 Doctor Unassigned, Mylo [facility] SECOND AND THIRD TRIMESTER ULTRASOUND 2022-10-31 20:25:00 Shanthi Bauer [facility] SECOND AND THIRD TRIMESTER ULTRASOUND 2022-10-31 20:20:00 Shanthi Bauer [facility] POCT URINALYSIS 2022-10-26 20:52:00 Shanthi Bauer [facility] POCT URINALYSIS 2022-09-18 20:36:00 Shanthi Bauer [facility] POCT URINALYSIS 2022-08-21 20:21:00 Shanthi Bauer [facility] FLU VACC (), 6 MO-64 YRS, .5ML, IM, QUAD (FLUCELVAX) 2022-07-24 19:22:36 Shanthi Bauer [facility] POCT URINALYSIS W/O SPECIFIC GRAVITY 2022-07-24 18:12:00 Shanthi Bauer [facility] POCT TEST 2022-07-24 18:11:00 Italo Bauer [facility] REPORT OF 2022-07-24 05:01:00 Doctor Cliff banerjee, Mylo [facility] ASSIGNMENT OF BENEFITS 2022-07-10 14:33:07 Docto r Unassigned, Mylo [facility] OB TRANSVAGINAL 2022-03-28 22:39:19 Adum, Rosibel Johnson [facility] GARDASIL 9 (HPV 9V) VACCINE 2022-03-28 22:12:39 Adum, Rosibel Johnson [facility] SHORTAGE WORKER CLINIC ULTRASOUND 2022-03-28 06:01:00 Doc tor Unassigned, Mylo [facility] PHYSICIAN ORDERS 2022-03-27 06:01:00 Doctor Carrington signed, Mylo [facility] FIRST TRIMESTER LESS THAN 14 WEEKS WITH TRANSVAGINAL 2022-03-24 20:40:00 [facility]ULMON[facility] ANGIO[facility] 2022-03-23 22:38:10 Susan Martinez [facility] D-DIMER 2022-03-23 20:59:00 Susan Martinez [facility] MAGNESIUM 2022-03-23 20:20:00 Susan Martinez [facility] TROPONIN I 2022-03-23 20:20:00 Susan Martinez [facility] COMP. METABOLIC PANEL ([id number]) 2022-03-23 20:20:00 Susan Martinez [facility] CBC WITH DIFF 2022-03-23 20:20:00 Susan Martinez [facility] URINALYSIS 2022-03-23 20:20:00 Susan Martinez [facility] N-TERMINAL PRO-BNP 2022-03-23 20:20:00 Susan Martinez Jeanine [facility] CONSENT/REFUSAL FOR DIAGNOSIS AND TREATMENT 2022-03-23 19:04:36 Doctor Unassigned, Mylo [facility] POCT URINALYSIS W/O SPECIFIC GRAVITY 2022-03-15 20:09:00 [facility] FIRST TRIMESTER LESS THAN 14 WEEKS WITH TRANSVAGINAL 2022-03-03 20:49:57 Asia [facility] GC & CHLAMYDIA AMPLIFIED ASSAY 2022-02-22 22:34:00 Asia [facility] TRICHOMONAS AMPLIFIED ASSAY 2022-02-22 22:34:00 Asia [facility] FLU VACC ([id number]), 6 MO-64 YRS, .5ML, IM, QUAD (FLUCELVAX) 2022-02-22 22:18:33 Asia [facility] POCT URINALYSIS W/O SPECIFIC GRAVITY 2022-02-22 00:00:00 Asia [facility] ASSIGNMENT OF BENEFITS 2022-02-18 14:49:18 Docto r Unassigned, Mylo [facility] POCT TEST 2022-01-06 18:43:00 Jareth Olmedo [facility] GARDASIL 9 (HPV 9V) VACCINE 2021-12-30 16:46:05 Jareth Olmedo [facility] POCT TEST 2021-12-30 15:29:00 Jareth Olmedo [facility] Encounters Start Date/Time End Date/Time Encounter Type Admission Type Attending [facility] Care Facility Care Department Encounter ID Source 2021-07-09 00:38:59 Outpatient [facility] [id number] [facility] 2024-01-11 12:15:00 2024-01-11 12:15:00 Outpatient PASQUALE ARREGUIN VIEN [facility] [id number] [facility] 2023-12-28 16:00:00 2023-12-28 16:56:23 Outpatient R RINA JEWELL [facility] [id number] [facility] 2023-12-28 16:00:00 2023-12-28 16:56:23 Routine Visit Rina Jewell [facility] 1.2.840.114 350.1.13.10 4.2.7.2.686 [id number] 134 [id number] [facility] 2023-11-15 00:00:00 2023-12-22 18:25:54 Patient Secure [facility]Pasquale [facility] 1.2.840.114 350.1.13.10 4.2.7.2.686 [id number] 134 [id number] [facility] 2023-12-14 15:00:00 2023-12-14 15:18:04 Outpatient R PASQUALE PAULA VIEN [facility] [id number] [facility] 2023-12-14 15:00:00 2023-12-14 15:18:04 Nurse Visit Nurse, [facility] Pasquale Paula Nurse, [facility] BUILDING 1.2.840.114 350.1.13.10 4.2.7.2.686 [id number] 134 [id number] [facility] 2023-12-14 14:00:00 2023-12-14 15:00:23 Rn Ostomy Visit 2, [facility] Lab Pasquale Paula 2, Adc Lab [facility] 1.2.840.114 350.1.13.10 4.2.7.2.686 [id number] [facility] 2023-12-13 16:00:00 2023-12-13 16:57:07 Outpatient R PASQUALE PAULA VIEN [facility] [id number] [facility] 2023-12-13 16:00:00 2023-12-13 16:57:07 Routine Visit Pasquale Paula [facility] 1.2.840.114 350.1.13.10 4.2.7.2.686 [id number] 134 [id number] [facility] 2023-12-06 00:00:00 2023-12-12 15:13:19 Patient Secure Msg Pasquale Paula [facility] BU[facility] 1.2.840.114 350.1.13.10 4.2.7.2.686 [id number] 134 [id number] [facility] 2023-12-12 00:00:00 2023-12-12 15:12:26 Telephone Pasquale Paula [facility] 1.2.840.114 350.1.13.10 4.2.7.2.686 [id number] 134 [id number] [facility] 2023-12-06 00:00:00 2023-12-06 12:15:14 Patient Secure Msg Pasquale Paula [facility] 1.2.840.114 350.1.13.10 4.2.7.2.686 [id number] 134 [id number] [facility] 2023-12-06 09:45:00 2023-12-06 10:33:49 Outpatient P MARK SINGH MARK [facility] [id number] [facility] 2023-12-06 09:45:00 2023-12-06 10:33:49 Rn Ostomy Visit Ultrasound, [facility] Mark Singh [facility] SHORTAGE WORKER [facility] MATERNAL & CHILD HEALTH [facility] 1.114 350.1.13.10 4.2.7.2.686 [id number] [facility] 2023-12-06 00:00:00 2023-12-06 09:51:49 Patient Secure Msg Pasquale Paula [facility] 1..114 350.1.13.10 4.2.7.2.686 [id number] 134 [id number] [facility] 2023-12-04 13:45:00 2023-12-04 13:45:00 Outpatient R PASQUALE PAULA VIEN [facility] [id number] [facility] 2023-11-30 00:00:00 2023-11-30 10:19:14 Patient Secure Msg Pasquale Paula [facility] 1.84.114 350.1.13.10 4.2.7.2.686 [id number] 134 [id number] [facility] 2023-11-30 08:30:00 2023-11-30 08:30:00 Outpatient R RUSTAM YU, RUSTAM MONSIVAIS [facility] [id number] [facility] 2023-10-23 00:00:00 2023-11-24 18:21:31 Patient Secure Msg Doctor Unassigned, Mylo Doctor Unassigned, Mylo [facility] 1..114 350.1.13.10 4.2.7.2.686 [id number] 134 [id number] [facility] 2023-10-24 00:00:00 2023-11-24 18:19:23 Patient Secure Msg Pasquale Paula [facility] 1.2840.114 350.1.13.10 4.2.7.2.686 [id number] 134 [id number] [facility] 2023-11-23 16:15:00 2023-11-23 16:15:00 Outpatient RINA MARQUEZ [facility] [id number] [facility] 2023-11-22 15:45:00 2023-11-22 16:38:41 Outpatient R PASQUALE PAULA PASQUALE [facility] [id number] [facility] 2023-11-22 15:45:00 2023-11-22 16:38:41 Routine Visit Pasquale Paula [facility] 1.84.114 350.1.13.10 4.2.7.2.686 [id number] 134 [id number] [facility] 2023-11-16 13:15:00 2023-11-16 13:15:00 Outpatient RINA MARQUEZ [facility] [id number] [facility] 2023-11-12 16:00:00 2023-11-12 16:00:00 Outpatient RINA MARQUEZ [facility] [id number] [facility] 2023-10-10 00:00:00 2023-11-10 18:20:13 Patient Secure g Pasquale Paula [facility] 1..114 350.1.13.10 4.2.7.2.686 [id number] 134 [id number] [facility] 2023-11-07 00:00:00 2023-11-07 13:21:33 Patient Secure Msg Pasquale Paula [facility] BUILDING 1.20.114 350.1.13.10 4.2.7.2.686 [id number] 134 [id number] [facility] 2023-11-02 10:15:00 2023-11-02 10:59:59 Outpatient R RUSTAM YU[facility] [id number] [facility] 2023-11-02 10:15:00 2023-11-02 10:59:59 Rn Ostomy Visit 1, [facility] Room Gigi Rustam [facility] SHORTAGE WORKER [facility] MATERNAL & CHILD [facility]ALTH [facility] 1.2.840.114 350.1.13.10 4.2.7.2.686 [id number] [facility] 2023-09-24 00:00:00 2023-10-27 18:21:52 Patient Secure Msg Pasquale Paula [facility] 1.2840.114 350.1.13.10 4.2.7.2.686 [id number] 134 [id number] [facility] 2023-10-19 14:45:00 2023-10-19 15:00:00 Nurse Visit Nurse, emma [facility] Pasquale Paula [facility] 1.2840.114 350.1.13.10 4.2.7.2.686 [id number] 134 [id number] [facility] 2023-10-19 14:45:00 2023-10-19 14:45:00 Outpatient R PASQUALE PAULA VIEN [facility] [id number] [facility] 2023-10-17 00:00:00 2023-10-19 11:53:37 Telephone Pasquale Paula [facility] 1.2840.114 350.1.13.10 4.2.7.2.686 [id number] 134 [id number] [facility] 2023-10-12 14:45:00 2023-10-12 15:17:30 Outpatient R PASQUALE PAULA VIEN [facility] [id number] [facility] 2023-10-12 14:45:00 2023-10-12 15:17:30 Routine Visit Pasquale Paula [facility] 1.2840.114 350.1.13.10 4.2.7.2.686 [id number] 134 [id number] [facility] 2023-09-03 00:00:00 2023-10-06 18:21:56 Patient Secure Msg Pasquale Paula [facility] 1.20.114 350.1.13.10 4.2.7.2.686 [id number] 134 [id number] [facility] 2023-09-26 00:00:00 2023-09-26 07:04:23 Case Management Pasquale Paula [facility] 1.2840.114 350.1.13.10 4.2.7.2.686 [id number] 134 [id number] [facility] 2023-09-25 11:30:00 2023-09-25 16:33:09 Outpatient SWAPNIL GONG [facility] [id number] [facility] 2023-09-25 11:30:00 2023-09-25 11:45:00 Rn Ostomy Visit Lab, [facility] 1.2.840.114 350.1.13.10 4.2.7.2.686 [id number] [facility] 2023-09-25 00:00:00 2023-09-25 07:39:48 Case Management Pasquale Paula [facility] BUILDING 1.2.840.114 350.1.13.10 4.2.7.2.686 [id number] 134 [id number] [facility] 2023-09-21 16:15:00 2023-09-21 16:30:00 Rn Ostomy Visit Pob, Adc Lab Main Pasquale Paula [facility] 1.2840.114 350.1.13.10 4.2.7.2.686 [id number] 353 [id number] [facility] 2023-09-21 16:15:00 2023-09-21 16:15:00 Outpatient PASQUALE ARREGUIN [facility] [id number] [facility] 2023-08-15 00:00:00 2023-09-15 18:05:25 Patient Secure Rosibel Isaac [facility] 1.0.114 350.1.13.10 4.2.7.2.686 [id number] 134 [id number] [facility] 2023-09-14 15:00:00 2023-09-14 15:17:22 Outpatient R PASQUALE PAULA [facility] [id number] [facility] 2023-09-14 15:00:00 2023-09-14 15:17:22 Routine Visit Pasquale Paula [facility] 1.2840.114 350.1.13.10 4.2.7.2.686 [id number] 134 [id number] [facility] 2023-09-05 00:00:00 2023-09-06 09:11:04 Telephone Beni Pasquale [facility] 1.2840.114 350.1.13.10 4.2.7.2.686 [id number] 134 [id number] [facility] 2023-09-03 19:22:00 2023-09-03 19:45:00 Emergency X NADEEN DAVIS [facility] ERT [id number] [facility] 2023-09-03 19:22:00 2023-09-03 19:45:00 Emergency Nadeen Davis [facility] 1.2840.114 350.1.13.10 4.2.7.2.686 [id number] [facility] 2023-09-03 12:30:00 2023-09-03 14:10:20 Outpatient R SAGAR GONZALEZ [facility] [id number] [facility] 2023-09-03 12:30:00 2023-09-03 12:50:00 Nurse Visit Nurse, [facility] Unknown, Attending [facility] MED[facility] OFFICE BUILDING 1.840.114 350.1.13.10 4.2.7.2.686 [id number] [facility] 2023-08-24 09:45:00 2023-08-24 10:34:12 Outpatient R ADALID LUKE [facility] [id number] [facility] 2023-08-24 09:45:00 2023-08-24 10:34:12 Rn Ostomy Visit Lab, Scott Rider Unknown, Attending [facility] OFF[facility] BUILD[facility] 1.84.114 350.1.13.10 4.2.7.2.686 [id number] 353 [id number] [facility] 2023-08-20 10:15:00 2023-08-20 10:15:00 Outpatient R PASQUALE PAULA [facility] [id number] [facility] 2023-08-17 10:00:00 2023-08-17 10:30:06 Outpatient R PASQUALE PAULA VIEN [facility] [id number] [facility] 2023-08-17 10:00:00 2023-08-17 10:30:06 Office Visit Pasquale Paula [facility] 1.284.114 350.1.13.10 4.2.7.2.686 [id number] 134 [id number] [facility] 2023-06-06 14:30:00 2023-06-06 14:30:00 Outpatient R [facility] [id number] [facility] 2023-05-01 14:00:00 2023-05-01 14:00:00 Outpatient R SHANTHI BAUER [facility] [id number] [facility] 2023-04-18 14:45:00 2023-04-18 14:45:00 Outpatient R [facility] [id number] [facility] 2023-04-18 00:00:00 2023-04-18 00:00:[facility]840.114 350.1.13.10 4.2.7.2.686 [id number] [facility] 2023-03-30 14:30:00 2023-03-30 14:30:00 Outpatient PRIMITIVOPEDRO [id number] Ani Johnson 2023-03-26 13:15:00 2023-03-26 14:17:58 Outpatient R SHANTHI BAUER [facility] [id number] [facility] 2023-03-26 13:15:00 2023-03-26 14:17:58 Routine Visit Shanthi Bauer [facility] SHORTAGE WORKER [facility] MATERNAL & CHILD [facility] 1..840.114 350.1.13.10 4.2.7.2.686 [id number] 107 [id number] [facility] 2023 00:00:00 2023 00:00:00 Patient Secure Msg Shanthi Bauer [facility] SHORTAGE WORKER [facility] & CHILD [facility] 1..840.114 350.1.13.10 4.2.7.2.686 [id number] [facility] 2023-03-05 09:58:00 2023-03-07 13:07:00 Inpatient P GIGI, RUSTAM YU, RUSTAM MONSIVAIS [facility] JAGRUTI [id number] [facility] 2023-03-05 09:58:00 2023-03-07 13:07:00 Hospital Encounter Rustam Yu [facility] 1.2.114 350.1.13.10 4.2.7.2.686 [id number] 134 [id number] [facility] 2023-03-05 14:43:00 2023-03-05 22:15:00 Anesthesia [facility] 1.2.114 350.1.13.10 4.2.7.2.686 [id number] [facility] 2023-03-01 00:00:00 2023-03-01 00:00:00 Patient Secure Msg Shanthi Bauer [facility] SHORTAGE WORKER [facility] & CHILD [facility] 1.84.114 350.1.13.10 4.2.7.2.686 [id number] [facility] 2023-02-27 09:00:00 2023-02-27 09:00:00 Outpatient R SHANTHI BAUER [facility] [id number] [facility] 2023-02-27 00:00:00 2023-02-27 00:00:00 Telephone Shanthi Bauer [facility] SHORTAGE WORKER [facility] & CHILD [facility] 1.84.114 350.1.13.10 4.2.7.2.686 [id number] [facility] 2023-02-27 00:00:00 2023-02-27 00:00:00 Patient Secure Msg Shanthi Bauer [facility] SHORTAGE WORKER [facility] CHILD [facility] 1..114 350.1.13.10 4.2.7.2.686 [id number] 107 [id number] [facility] 2023-02-20 09:15:00 2023-02-20 09:29:39 Outpatient R SANIYA WOLF [facility] [id number] [facility] 2023-02-20 09:15:00 2023-02-20 09:29:39 Routine Visit Saniya Wolf [facility] SHORTAGE WORKER [facility] & CHILD [facility] 1.2.840.114 350.1.13.10 4.2.7.2.686 [id number] 107 [id number] [facility] 2023-02-19 00:00:00 2023-02-19 00:00:00 Telephone Shanthi Bauer [facility] SHORTAGE WORKER [facility] CHILD [facility] 1.0.114 350.1.13.10 4.2.7.2.686 [id number] [facility] 2023-02-16 14:02:00 2023-02-16 17:10:00 Outpatient X ADUM, ROSIBEL CAMPBELL [facility] [id number] [facility] 2023-02-16 14:02:00 2023-02-16 17:10:00 Emergency Adum, Rosibel Johnson [facility] 1.0.114 350.1.13.10 4.2.7.2.686 [id number] [facility] 2023-02-16 00:00:00 2023-02-16 00:00:00 Refill Shanthi Bauer [facility] SHORTAGE WORKER [facility] & CHILD [facility] 1.2840.114 350.1.13.10 4.2.7.2.686 [id number] 107 [id number] [facility] 2023-02-16 00:00:00 2023-02-16 00:00:00 Nurse Triage Iram Damico [facility] 1.2840.114 350.1.13.10 4.2.7.2.686 [id number] [facility] 2023-02-16 00:00:00 2023-02-16 00:00:00 Patient Secure Msg Shanthi Bauer [facility] SHORTAGE WORKER [facility] & CHILD [facility] 1.2.840.114 350.1.13.10 4.2.7.2.686 [id number] [facility] 2023-02-14 00:00:00 2023-02-14 00:00:00 Telephone Shanthi Bauer [facility] [employer] 1.2.840.114 350.1.13.10 4.2.7.2.686 [id number] [facility] 2023-02-14 00:00:00 2023-02-14 00:00:00 Refill Shanthi Bauer Lydia [facility] [employer] [facility] 1.2.840.114 350.1.13.10 4.2.7.2.686 [id number] [facility] 2023-02-13 10:30:00 2023-02-13 11:21:12 Outpatient R SHANTHI BAUER [facility] [id number] [facility] 2023-02-13 10:30:00 2023-02-13 11:21:12 Routine Visit ValdemarGio cisneroslakesha Freeman [facility] [employer] [facility] 1.2840.114 350.1.13.10 4.2.7.2.686 [id number] [facility] 2023-02-13 00:00:00 2023-02-13 00:00:00 Orders Only Doctor Unassigned, Mylo [facility] 1.2.840.114 350.1.13.10 4.2.7.2.686 [id number] [facility] 2023-02-06 11:00:00 2023-02-06 11:00:00 Outpatient R SHANTHI BAUER [facility] [id number] [facility] 2023-02-05 16:00:00 2023-02-05 16:12:16 Outpatient R SHANTHI BAUER [facility] [id number] [facility] 2023-02-05 16:00:00 2023-02-05 16:12:16 Routine Visit Shanthi Bauer [facility] [employer] 1.2840.114 350.1.13.10 4.2.7.2.686 [id number] [facility] 2023-02-05 00:00:00 2023-02-05 00:00:00 Patient Secure Msg Shanthi Bauer [facility] [employer] WORK[facility] 1.0.114 350.1.13.10 4.2.7.2.686 [id number] [facility] 2023-01-24 10:30:00 2023-01-24 10:30:00 Outpatient R SHANTHI BAUER [facility] [id number] [facility] 2023-01-23 14:00:00 2023-01-23 14:00:15 Outpatient R SHANTHI BAUER [facility] [id number] [facility] 2023-01-23 14:00:00 2023-01-23 14:00:15 Routine Visit Shanthi Bauer [facility] SHORTAGE WORKER [facility] 1.0.114 350.1.13.10 4.2.7.2.686 [id number] 107 [id number] [facility] 2023-01-19 00:00:00 2023-01-19 00:00:00 Patient Secure Msg Shanthi Bauer [facility] SHORTAGE WORKER [facility] 1.2840.114 350.1.13.10 4.2.7.2.686 [id number] 107 [id number] [facility] 2023-01-10 10:30:00 2023-01-10 10:58:10 Outpatient R SHANTHI BAUER [facility] [id number] [facility] 2023-01-10 10:30:00 2023-01-10 10:58:10 Routine Visit Shanthi Bauer [facility] SHORTAGE WORKER [facility] 1..840.114 350.1.13.10 4.2.7.2.686 [id number] 107 [id number] [facility] 2023-01-10 00:00:00 2023-01-10 00:00:00 Orders Only Doctor Unassigned, Mylo [facility] 1.840.114 350.1.13.10 4.2.7.2.686 [id number] [facility] 2023-01-04 10:15:00 2023-01-04 10:15:00 Outpatient R SHANTHI BAUER [facility] [id number] [facility] 2022-12-21 09:45:00 2022-12-21 10:30:23 Outpatient R SHANTHI BAUER [facility] [id number] [facility] 2022-12-21 09:45:00 2022-12-21 10:30:23 Routine Visit Shanthi Bauer [facility] SHORTAGE WORKER [facility] 1..840.114 350.1.13.10 4.2.7.2.686 [id number] 107 [id number] [facility] 2022-12-13 00:00:00 2022-12-13 00:00:00 Abstract Shanthi Bauer [facility] SHORTAGE WORKER [facility] 1..840.114 350.1.13.10 4.2.7.2.686 [id number] 107 [id number] [facility] 2022-12-13 00:00:00 2022-12-13 00:00:00 Patient Secure Msg Shanthi Bauer Lydia [facility] SHORTAGE WORKER [facility] 1.2840.114 350.1.13.10 4.2.7.2.686 [id number] 107 [id number] [facility] 2022-12-12 15:30:00 2022-12-12 15:36:22 Rn Ostomy Visit Ultrasound, Avelino Ghotra [facility] SHORTAGE WORKER [facility] MATERNAL & CHILD [facility] 1.2840.114 350.1.13.10 4.2.7.2.686 [id number] [facility] 2022-12-12 14:00:00 2022-12-12 14:37:47 Outpatient R VALDEMARJEOVANNYANDREA SHANTHI [facility] [id number] [facility] 2022-12-12 14:00:00 2022-12-12 14:37:47 Routine Visit ValdemarjeovannyandreaShanthi Lydia [facility] SHORTAGE WORKER [facility] 1.840.114 350.1.13.10 4.2.7.2.686 [id number] 107 [id number] [facility] 2022-12-12 00:00:00 2022-12-12 00:00:00 Telephone WesandreaShanthi Lydia [facility] SHORTAGE WORKER [facility] CHILD [facility] 1.840.114 350.1.13.10 4.2.7.2.686 [id number] 107 [id number] [facility] 2022-12-07 10:30:00 2022-12-07 11:43:28 Outpatient R SHANTHI BAUER [facility] [id number] [facility] 2022-12-07 10:30:00 2022-12-07 11:43:28 Routine Visit Lizette Shanthi C [facility] SHORTAGE WORKER [facility] 1.2840.114 350.1.13.10 4.2.7.2.686 [id number] 107 [id number] [facility] 2022-11-17 00:00:00 2022-11-17 00:00:00 Telephone Amber Rey [facility] SPECIALTY [place] 1..114 350.1.13.10 4.2.7.2.686 [id number] 161 [id number] [facility] 2022-11-16 10:30:00 2022-11-16 10:36:09 Outpatient R SHANTHI BAUER [facility] [id number] [facility] 2022-11-16 10:30:00 2022-11-16 10:36:09 Routine Visit Shanthi Bauer [facility] SHORTAGE WORKER [facility] MATERNAL & CHILD HEALTH [facility] 1..114 350.1.13.10 4.2.7.2.686 [id number] 107 [id number] [facility] 2022-11-10 09:45:00 2022-11-10 10:30:26 Outpatient R JA SALDANA [facility] [id number] [facility] 2022-11-10 09:45:00 2022-11-10 10:30:26 Telemedici ne Visit Amber Rey Joseph W [facility] SHORTAGE WORKER [facility] MATERNAL & CHILD [facility] 1..114 350.1.13.10 4.2.7.2.686 [id number] 107 [id number] [facility] 2022-11-10 00:00:00 2022-11-10 00:00:00 Telephone Shanthi Bauer [facility] SHORTAGE WORKER [facility] MATERNAL & CHILD [facility] 1..114 350.1.13.10 4.2.7.2.686 [id number] 107 [id number] [facility] 2022-11-10 00:00:00 2022-11-10 00:00:00 Orders Only Doctor Unassigned, Mylo [facility] 1..114 350.1.13.10 4.2.7.2.686 [id number] [facility] 2022-11-10 00:00:00 2022-11-10 00:00:00 Patient Secure Msg Shanthi Bauer [facility] SHORTAGE WORKER [facility] CHILD [facility] 1.2.840.114 350.1.13.10 4.2.7.2.686 [id number] 107 [id number] [facility] 2022-11-10 00:00:00 2022-11-10 00:00:00 Patient Secure Shanthi Fall [facility] SHORTAGE WORKER [facility] CHILD [facility] 1.2.840.114 350.1.13.10 4.2.7.2.686 [id number] 107 [id number] [facility] 2022-11-07 00:00:00 2022-11-07 00:00:00 Abstract Shanthi Bauer [facility] SHORTAGE WORKER [facility] CHILD [facility] 1.2.840.114 350.1.13.10 4.2.7.2.686 [id number] 107 [id number] [facility] 2022-11-07 00:00:00 2022-11-07 00:00:00 Telephone Shanthi Bauer [facility] SHORTAGE WORKER [facility] CHILD [facility] 1.2.840.114 350.1.13.10 4.2.7.2.686 [id number] 107 [id number] [facility] 2022-10-31 14:00:00 2022-10-31 15:26:34 Outpatient P AVELINO YUN [facility] [id number] [facility] 2022-10-31 14:00:00 2022-10-31 15:26:34 Rn Ostomy Visit Ultrasound, [facility] Avelino Yun [facility] SHORTAGE WORKER [facility] 1.2.840.114 350.1.13.10 4.2.7.2.686 [id number] 369 [id number] [facility] 2022-10-26 15:45:00 2022-10-26 16:10:05 Outpatient R SHANTHI BAUER [facility] [id number] [facility] 2022-10-26 15:45:00 2022-10-26 16:10:05 Routine Visit Shanthi Bauer [facility] SHORTAGE WORKER [facility] 1.2.840.114 350.1.13.10 4.2.7.2.686 [id number] 107 [id number] [facility] 2022-10-20 00:00:00 2022-10-20 00:00:00 Telephone Shanthi Bauer [facility] SHORTAGE WORKER [facility] 1.2.840.114 350.1.13.10 4.2.7.2.686 [id number] 107 [id number] [facility] 2022-10-19 00:00:00 2022-10-19 00:00:00 Refill Shanthi Bauer [facility] SHORTAGE WORKER [facility] CHILD [facility] 1.2.840.114 350.1.13.10 4.2.7.2.686 [id number] 107 [id number] [facility] 2022-10-18 00:00:00 2022-10-18 00:00:00 Refill Shanthi Bauer [facility] SHORTAGE WORKER [facility] 1.2.840.114 350.1.13.10 4.2.7.2.686 [id number] 107 [id number] [facility] 2022-10-16 15:15:00 2022-10-16 15:15:00 Outpatient R SANIYA WOLF [facility] [id number] [facility] 2022-10-06 00:00:00 2022-10-06 00:00:00 Abstract Shanthi Bauer [facility] SHORTAGE WORKER [facility] & CHILD HEALTH [facility] 1.0.114 350.1.13.10 4.2.7.2.686 [id number] 107 [id number] [facility] 2022-09-29 15:30:00 2022-09-29 16:58:04 Outpatient P RUSTAM YU [facility] [id number] [facility] 2022-09-29 15:30:00 2022-09-29 16:58:04 Rn Ostomy Visit 1, [facility] Us Room [facility] 1..114 350.1.13.10 4.2.7.2.686 [id number] [facility] 2022-09-22 15:15:00 2022-09-22 15:15:00 Outpatient P RUSTAM YU [facility] [id number] [facility] 2022-09-18 15:00:00 2022-09-18 16:06:28 Outpatient R SHANTHI BAUER [facility] [id number] [facility] 2022-09-18 15:00:00 2022-09-18 16:06:28 Routine Visit Saniya Wolf Damilola C [facility] SHORTAGE WORKER [facility] MATERNAL & CHILD HEALTH [facility] 1.840.114 350.1.13.10 4.2.7.2.686 [id number] 107 [id number] [facility] 2022-08-21 14:45:00 2022-08-21 15:43:20 Outpatient R SHANTHI BAUER [facility] [id number] [facility] 2022-08-21 14:45:00 2022-08-21 15:43:20 Routine Visit Shanthi Bauer [facility] SHORTAGE WORKER [facility] MATERNAL & CHILD [facility] 1.840.114 350.1.13.10 4.2.7.2.686 [id number] 107 [id number] [facility] 2022-08-21 10:30:00 2022-08-21 10:30:00 Outpatient R SHANTHI BAUER [facility] [id number] [facility] 2022-08-15 00:00:00 2022-08-15 00:00:00 Abstract WesandreaGioShanthi C [facility] SHORTAGE WORKER [facility]ILD [facility] 1.2.840.114 350.1.13.10 4.2.7.2.686 [id number] 107 [id number] [facility] 2022-08-14 08:30:00 2022-08-14 09:12:30 Outpatient ALBERTO ORDAZ [facility] [id number] [facility] 2022-08-14 08:30:00 2022-08-14 09:00:00 Rn Ostomy Visit Ultrasound, Alberto Garcia [facility] SHORTAGE WORKER [facility] 1.2.840.114 350.1.13.10 4.2.7.2.686 [id number] [facility] 2022-08-09 00:00:00 2022-08-09 00:00:00 Patient Secure Msg Shanthi Bauer Lydia [facility] SHORTAGE WORKER [facility] MATERNAL & CHILD [facility] 1.2.840.114 350.1.13.10 4.2.7.2.686 [id number] 107 [id number] [facility] 2022-08-07 00:00:00 2022-08-07 00:00:00 Patient Secure Msg Shanthi Bauer [facility] SHORTAGE WORKER [facility] 1.2.840.114 350.1.13.10 4.2.7.2.686 [id number] 107 [id number] [facility] 2022-08-07 00:00:00 2022-08-07 00:00:00 Patient Secure Msg Shanthi Bauer [facility] SHORTAGE WORKER [facility] 1.2.840.114 350.1.13.10 4.2.7.2.686 [id number] 107 [id number] [facility] 2022-08-03 00:00:00 2022-08-03 00:00:00 Telephone Shanthi Bauer [facility] SHORTAGE WORKER [facility] CHILD [facility] 1.2.840.114 350.1.13.10 4.2.7.2.686 [id number] 107 [id number] [facility] 2022-07-31 09:30:00 2022-07-31 13:38:09 Outpatient R TERRENCE BARRON [facility] [id number] [facility] 2022-07-31 09:30:00 2022-07-31 10:00:00 Telemedici ne Visit Faculty, [facility] Bennett [facility] SHORTAGE WORKER [facility] MATERNAL & CHILD [facility] 1.2.840.114 350.1.13.10 4.2.7.2.686 [id number] 107 [id number] [facility] 2022-07-28 00:00:00 2022-07-28 00:00:00 Telephone Shanthi Bauer [facility] SHORTAGE WORKER [facility] 1.2.840.114 350.1.13.10 4.2.7.2.686 [id number] 107 [id number] [facility] 2022-07-27 10:15:00 2022-07-27 10:15:00 Outpatient R ADILSON CHERRY [facility] [id number] [facility] 2022-07-25 15:30:00 2022-07-25 15:30:00 Outpatient R AMENA BETANCOURT CHERYAL [facility] [id number] [facility] 2022-07-25 00:00:00 2022-07-25 00:00:00 Telephone Shanthi Bauer [facility] SHORTAGE WORKER [facility] 1.2.840.114 350.1.13.10 4.2.7.2.686 [id number] 107 [id number] [facility] 2022-07-24 14:00:00 2022-07-24 14:45:45 Initial Visit Valdemarblayne Shanthi Freeman [facility] SHORTAGE WORKER [facility] 1.2840.114 350.1.13.10 4.2.7.2.686 [id number] 107 [id number] [facility] 2022-07-24 13:30:00 2022-07-24 12:53:06 Outpatient R SHANTHI BAUER [facility] [id number] [facility] 2022-07-24 00:00:00 2022-07-24 00:00:00 Orders Only Doctor Unassigned, Mylo [facility] 1.2840.114 350.1.13.10 4.2.7.2.686 [id number] [facility] 2022-07-14 16:30:00 2022-07-14 16:30:00 Outpatient R AMENA BETANCOURT [facility] [id number] [facility] 2022-07-14 00:00:00 2022-07-14 00:00:00 Telephone Amena Betancourt [facility] 1.2840.114 350.1.13.10 4.2.7.2.686 [id number] 134 [id number] [facility] 2022-07-12 00:00:00 2022-07-12 00:00:00 Patient Secure Msg Amena Betancourt [facility] 1.2840.114 350.1.13.10 4.2.7.2.686 [id number] 134 [id number] [facility] 2022-07-10 09:30:00 2022-07-10 09:45:00 Rn Ostomy Visit Pob, Adc Lab Main CarloshiHollandandres [facility] 1.0.114 350.1.13.10 4.2.7.2.686 [id number] [facility] 2022-07-10 09:30:00 2022-07-10 09:30:00 Outpatient R AMENA BETANCOURT [facility] [id number] [facility] 2022-07-10 00:00:00 2022-07-10 00:00:00 Orders Only Doctor Unassigned, Mylo [facility] 1.0.114 350.1.13.10 4.2.7.2.686 [id number] [facility] 2022-07-05 15:45:00 2022-07-05 15:45:00 Outpatient R AMENA BETANCOURT [facility] [id number] [facility] 2022-06-19 00:00:00 2022-06-19 00:00:00 Patient Secure Msg Doctor Unassigned, Mylo [facility] 1.0.114 350.1.13.10 4.2.7.2.686 [id number] 134 [id number] [facility] 2022-06-06 00:00:00 2022-06-06 00:00:00 [facility] 1.0.114 350.1.13.10 4.2.7.2.686 [id number] 134 [id number] [facility] 2022-06-06 00:00:00 2022-06-06 00:00:00 Patient Secure Msg [facility]anhi [facility] 1.2840.114 350.1.13.10 4.2.7.2.686 [id number] 134 [id number] [facility] 2022-05-18 16:00:00 2022-05-18 16:15:00 Rn Ostomy Visit Pob, [facility] Main Amena Betancourt [facility] 1.20.114 350.1.13.10 4.2.7.2.686 [id number] [facility] 2022-05-18 16:00:00 2022-05-18 16:00:00 Outpatient R AMENA BETANCOURT [facility] [id number] [facility] 2022-04-25 00:00:00 2022-04-25 00:00:00 Telephone Carloshi Amena [facility] 1..114 350.1.13.10 4.2.7.2.686 [id number] 134 [id number] [facility] 2022-04-19 11:30:00 2022-04-19 11:30:00 Outpatient R AMENA BETANCOURT [facility] [id number] [facility] 2022-04-11 16:30:00 2022-04-11 16:30:00 Office Visit MariaelenaAmena rai [facility] 1.84.114 350.1.13.10 4.2.7.2.686 [id number] 134 [id number] [facility] 2022-04-11 16:30:00 2022-04-11 16:26:25 Outpatient R AMENA [facility]ANCOURT [facility] [id number] [facility] 2022-04-11 00:00:00 2022-04-11 00:00:00 Telephone Rosibel Ramirez [facility] 1..114 350.1.13.10 4.2.7.2.686 [id number] 134 [id number] [facility] 2022-04-07 14:30:00 2022-04-07 14:30:00 Outpatient R [facility]AMENA [facility] [id number] [facility] 2022-04-04 00:00:00 2022-04-04 00:00:00 [facility] 1.114 350.1.13.10 4.2.7.2.686 [id number] 134 [id number] [facility] 2022-03-29 15:45:00 2022-03-29 15:45:00 Outpatient R MARIAELENAAMENA [facility]I [facility] [id number] [facility] 2022-03-28 15:00:00 2022-03-28 16:28:45 Outpatient R ROSIBEL RAMIREZ [facility] [id number] [facility] 2022-03-28 15:00:00 2022-03-28 16:28:45 Routine Visit Rosibel Ramirez [facility] 1..114 350.1.13.10 4.2.7.2.686 [id number] 134 [id number] [facility] 2022-03-28 00:00:00 2022-03-28 00:00:00 Orders Only Doctor Unassigned, Mylo [facility] 1..114 350.1.13.10 4.2.7.2.686 [id number] [facility] 2022-03-27 11:30:00 2022-03-27 11:45:00 Rn Ostomy Visit Lab, Scott Betancourt [facility] MIRNA VALLES?[facility] 1.114 350.1.13.10 4.2.7.2.686 [id number] [facility] 2022-03-27 11:15:00 2022-03-27 11:15:00 Routine Visit Amena Betancourt [facility] 1.2.840.114 350.1.13.10 4.2.7.2.686 [id number] 134 [id number] [facility] 2022-03-27 11:15:00 2022-03-27 10:54:35 Outpatient R AMENA BETANCOURT [facility] [id number] [facility] 2022-03-27 00:00:00 2022-03-27 00:00:00 Orders Only Doctor Unassigned, Mylo [facility] 1.2.840.114 350.1.13.10 4.2.7.2.686 [id number] [facility] 2022-03-27 00:00:00 2022-03-27 00:00:00 [facility]phone [facility] 1.2.840.114 350.1.13.10 4.2.7.2.686 [id number] 134 [id number] [facility] 2022-03-24 13:30:16 2022-03-24 23:59:00 Outpatient R AMENA BETANCOURT [facility] [id number] [facility] 2022-03-24 13:30:16 2022-03-24 23:59:00 Hospital Encounter Amena Betancourt [facility] 1.2.840.114 350.1.13.10 4.2.7.2.686 [id number] [facility] 2022-03-24 00:00:00 2022-03-24 00:00:00 Telephone Amena Betacnourt [facility] 1.2.840.114 350.1.13.10 4.2.7.2.686 [id number] 134 [id number] [facility] 2022-03-23 13:31:00 2022-03-23 19:01:00 Emergency X Susan MARTINEZ [facility] ERT [id number] [facility] 2022-03-23 13:31:00 2022-03-23 19:01:00 Emergency Susan Martinez [facility] 1.20.114 350.1.13.10 4.2.7.2.686 [id number] [facility] 2022-03-23 13:00:00 2022-03-23 13:20:00 Nurse Visit Nurse, [facility] Unknown, Attending [facility] 1..114 350.1.13.10 4.2.7.2.686 [id number] [facility] 2022-03-23 13:00:00 2022-03-23 12:57:56 Outpatient R SAGAR GONZALEZ [facility] [id number] [facility] 2022-03-23 00:00:00 2022-03-23 00:00:00 Orders Only Doctor Unassigned, Mylo [facility] 1.2.114 350.1.13.10 4.2.7.2.686 [id number] [facility] 2022-03-15 16:00:00 2022-03-15 16:00:00 Outpatient R ROSIBEL RAMIREZ [facility] [id number] [facility] 2022-03-15 13:45:00 2022-03-15 14:37:26 Outpatient R AMENA BETANCOURT [facility] [id number] [facility] 2022-03-15 13:45:00 2022-03-15 14:37:26 Routine Visit Amena Betancourt [facility] 1..114 350.1.13.10 4.2.7.2.686 [id number] 134 [id number] [facility] 2022-03-15 10:15:00 2022-03-15 10:15:00 Outpatient R JOSEFAROSIBEL SAINZ [facility] [id number] [facility] 2022 00:00:00 2022 00:00:00 [facility] 1.2.840.114 350.1.13.10 4.2.7.2.686 [id number] 134 [id number] [facility] 2022-03-09 00:00:00 2022-03-09 00:00:[facility] 1.2.840.114 350.1.13.10 4.2.7.2.686 [id number] 134 [id number] [facility] 2022-03-07 00:00:00 2022-03-07 00:00:00 [facility] 1.2.840.114 350.1.13.10 4.2.7.2.686 [id number] 134 [id number] [facility] 2022-03-07 00:00:00 2022-03-07 00:00:00 [facility] 1.2.840.114 350.1.13.10 4.2.7.2.686 [id number] 134 [id number] [facility] 2022-03-06 00:00:00 2022-03-06 00:00:00 [facility] [id number] [facility] 2022-03-06 00:00:00 2022-03-06 00:00:00 [facility] 1.2.840.114 350.1.13.10 4.2.7.2.686 [id number] 134 [id number] [facility] 2022-03-05 00:00:00 2022-03-05 00:00:00 [facility] 1.2.840.114 350.1.13.10 4.2.7.2.686 [id number] 134 [id number] [facility] 2022-03-03 14:10:30 2022-03-03 23:59:00 Outpatient R AMENA BETANCOURT CHERYAL [facility] [id number] [facility] 2022-03-03 14:00:00 2022-03-03 23:59:00 Hospital Encounter Amena Betancourt [facility] 1.2840.114 350.1.13.10 4.2.7.2.686 [id number] [facility] 2022-02-23 00:00:00 2022-02-23 00:00:00 Case Management [place] [facility] 1.2840.114 350.1.13.10 4.2.7.2.686 [id number] 134 [id number] [facility] 2022-02-22 16:45:00 2022-02-22 17:00:00 Rn Ostomy Visit Pob, Adc Lab Main [place] [facility] 1.2840.114 350.1.13.10 4.2.7.2.686 [id number] [facility] 2022-02-22 15:30:00 2022-02-22 16:14:30 Outpatient R AMENA BETANCOURT CHERYAL [facility] [id number] [facility] 2022-02-22 15:30:00 2022-02-22 16:14:30 Initial Visit [place] [facility] 1.2.840.114 350.1.13.10 4.2.7.2.686 [id number] 134 [id number] [facility] 2022-02-20 13:15:00 2022-02-20 13:30:00 Rn Ostomy Visit Pob, Adc Lab Main [place] [facility] 1.2840.114 350.1.13.10 4.2.7.2.686 [id number] 353 [id number] [facility] 2022-02-20 13:15:00 2022-02-20 13:15:00 Outpatient R [facility] [id number] [facility] 2022-02-20 00:00:00 2022-02-20 00:00:00 [facility] Secure [facility] 1.2840.114 350.1.13.10 4.2.7.2.686 [id number] 134 [id number] [facility] [facility] 2022-02-20 00:00:00 2022-02-20 00:00:00 Telephone Amena Betancourt [facility] 1.2.840.114 350.1.13.10 4.2.7.2.686 [id number] 134 [id number] [facility] 2022-02-20 00:00:00 2022-02-20 00:00:00 Patient Secure Msg Deanne Simmons [facility] 1.2.840.114 350.1.13.10 4.2.7.2.686 [id number] 134 [id number] [facility] 2022-02-18 10:00:00 2022-02-18 10:15:00 Rn Ostomy Visit Pob, Adc Lab Main Amena Betancourt [facility] 1.2840.114 350.1.13.10 4.2.7.2.686 [id number] [facility] 2022-02-18 10:00:00 2022-02-18 10:00:00 Outpatient R AMENA BETANCOURT CHERYAL [facility] [id number] [facility] 2022-02-18 00:00:00 2022-02-18 00:00:00 Orders Only Doctor Unassigned, Mylo [facility] 1.2.840.114 350.1.13.10 4.2.7.2.686 [id number] [facility] 2022-02-17 00:00:00 2022-02-17 00:00:00 Patient Secure Deanne Ghosh [facility] 1.2.840.114 350.1.13.10 4.2.7.2.686 [id number] 134 [id number] [facility] 2022-02-17 00:00:00 2022-02-17 00:00:00 Telephone [facility] 1..840.114 350.1.13.10 4.2.7.2.686 [id number] 134 [id number] [facility] 2022-02-08 00:00:00 2022-02-08 00:00:00 Outpatient R MARIAELENAAMENA RAI CHERYAL [facility] [id number] [facility] 2022-01-24 15:30:00 2022-01-24 16:07:03 Out[facility] [id number] [facility] 2022-01-24 15:30:00 2022-01-24 16:07:03 Office Visit Asia Amena [facility] 1.2.840.114 350.1.13.10 4.2.7.2.686 [id number] 134 [id number] [facility] 2022-01-20 15:15:00 2022-01-20 15:15:00 Outpatient R AMENA BETANCOURT CHERYAL [facility] [id number] [facility] 2022-01-06 16:00:00 2022-01-06 16:00:00 Outpatient R AMENA BETANCOURT CHERYAL [facility] [id number] [facility] 2022-01-06 14:15:00 2022-01-06 14:27:31 Outpatient R JARETH OLMEDO [facility] [id number] [facility] 2022-01-06 14:15:00 2022-01-06 14:27:31 Office Visit Jareth Olmedo [facility] 1..840.114 350.1.13.10 4.2.7.2.686 [id number] 134 [id number] [facility] 2022-01-03 00:00:00 2022-01-03 00:00:00 Telephone Jareth Olmedo [facility] 1.840.114 350.1.13.10 4.2.7.2.686 [id number] 134 [id number] [facility] 2021-12-30 11:00:00 2021-12-30 11:13:02 Rn Ostomy Visit 2, Adc Lab Jareth Olmedo [facility] 1.2.840.114 350.1.13.10 4.2.7.2.686 [id number] [facility] 2021-12-30 09:30:00 2021-12-30 10:59:31 Outpatient R JARETH OLMEDO [facility] [id number] [facility] 2021-12-30 09:30:00 2021-12-30 10:59:31 Office Visit Jareth Olmedo [facility] 1.2.840.114 350.1.13.10 4.2.7.2.686 [id number] 134 [id number] [facility] 2021-12-30 09:30:00 2021-12-30 10:59:31 Outpatient R JARETH OLMEDO [facility] [id number] [facility] 2021-12-30 00:00:00 2021-12-30 00:00:00 Orders Only Doctor Unassigned, Mylo [facility] 1.0.114 350.1.13.10 4.2.7.2.686 [id number] 009 [id number] [facility] 2021-12-28 00:00:00 2021-12-28 00:00:00 Telephone [place] [facility] 1..114 350.1.13.10 4.2.7.2.686 [id number] 134 [id number] [facility] 2021-11-23 09:30:00 2021-11-23 10:56:47 [facility] [id number] [facility] 2021-11-23 09:30:00 2021-11-23 10:56:47 Office Visit [facility] 1..114 350.1.13.10 4.2.7.2.686 [id number] 134 [id number] [facility] 2021-11-09 16:30:00 2021-11-09 16:45:00 Rn Ostomy Visit Lab, Quinten Cardenas [facility] 1..114 350.1.13.10 4.2.7.2.686 [id number] 353 [id number] [facility] 2021-11-09 15:00:00 2021-11-09 15:40:11 Office Visit [place] [facility] 1..114 350.1.13.10 4.2.7.2.686 [id number] 134 [id number] [facility] 2021-11-09 15:00:00 2021-11-09 15:40:11 Outpatient R MARIAELENAANNETTEDYANAMENA DODYANAMENA DO [facility] [id number] [facility] 2021-11-09 15:00:00 2021-11-09 15:40:11 Outpatient R CARLOSAMENA DO ASIA AMENA [facility] [id number] [facility] 2021-11-09 15:00:00 2021-11-09 15:00:00 Outpatient R CARLOSAMENA DO [facility] [id number] [facility] 2021-10-27 15:00:00 2021-10-27 15:45:46 Outpatient R JARETH OLMEDO [facility] [id number] [facility] 2021-10-27 15:00:00 2021-10-27 15:45:46 Office Visit Jareth Olmedo [facility] 1.114 350.1.13.10 4.2.7.2.686 [id number] 134 [id number] [facility] 2021-10-27 00:00:00 2021-10-27 00:00:00 Orders Only Doctor Unassigned, Mylo [facility] 1..114 350.1.13.10 4.2.7.2.686 [id number] 009 [id number] [facility] 2021-10-18 12:38:00 2021-10-18 17:05:00 Emergency X KAMERON DANIELS [facility] ERT [id number] [facility] 2021-10-18 12:38:00 2021-10-18 17:05:00 Emergency Kameron Daniels [facility] 1.840.114 350.1.13.10 4.2.7.2.686 [id number] [facility] 2021-10-18 12:38:00 2021-10-18 17:05:00 Emergency X KAMERON DANIELS [facility] ERT [id number] [facility] 2021-02-20 07:08:00 2021-02-20 10:32:00 Emergency EM Praveen Lizarraga [facility] [id number] 24 [facility] Results Test Description Test Time Test Comments Results Result Co mments Source [facility] w/o Specific [id number] 21:46:00* Test Item Value Reference Range Interpretation Comme nts POCT PH U (test code = 3254) n/a 5-8 POCT U LEUK EST (test code = 3263) n/a Negative - Negative POCT U NIT (test code = 3262) n/a Negative - Negati ve POCT U PROT (test code = 3259) NEGATIVE Negative - Negat theron POCT U GLU (test code = 3256) NORMAL Negative - Negati ve POCT U KETONE (test code = 3258) n/a Negative - Neg ative POCT U BLD (test code = 3257) n/a Negative - Negati ve [facility] Urinalysis w/o Specific [id number] 21:09:00* Test Item Value Reference Range Interpretation Comme nts POCT PH U (test code = 3254) n/a 5-8 POCT U LEUK EST (test code = 3263) n/a Negative - Negative POCT U NIT (test code = 3262) n/a Negative - Negati ve POCT U PROT (test code = 3259) negative Negative - Negat theron POCT U GLU (test code = 3256) normal Negative - Negati ve POCT U KETONE (test code = 3258) n/a Negative - Neg ative POCT U BLD (test code = 3257) n/a Negative - Negati ve [facility]/o Specific [id number] 19:44:00* Test Item Value Reference Range Interpretation [...] = 3257) n/a Negative - Negati ve [facility] Urinalysis w/o Specific [id number] 20:05:00* Test Item Value Reference Range Interpretation [...] = 3257) n/a Negative - Negati ve [facility] [id number] 15:03:00* Test Item Value Reference Range Interpretation Comme nts POCT PREG (test code = 1605) Positive On board controls acceptable with C Line (test code = 3574) Yes POCT PREG LOT # (test code = 3575) POCT PREG TEST DATE ( test code = 3576) [facility] [id number] 15:03:00* Test Item Value Reference Range Interpretation Comme nts POCT PREG (test code = 1605) Positive On board controls acceptable with C Line (test code = 3574) Yes POCT PREG LOT # (test code = 3575) POCT PREG TEST DATE ( test code = 3576) [facility] with Rnbwvvklwfix0489-96-00 11:03:13* Test Item Value Reference Range Interpretation [...] 34.6 g/dL 31.6-35.1 RDW-SD (test code = 33404-5) 45.6 fL 39.0-49.9 RDW-CV (test code = 788-0) 13.9 % 12.0-15.5 PLT (test code = 777-3) 270 See_Comment [Automated HidInImagea ge] The system which generated this result transmitted reference range: 166 - 358 10*3/?L. The reference range was not used to interpret this result as normal/abnormal. MPV (test code = 23802-6) 9.7 fL 9.5-12.9 NRBC/100 WBC (test code = 1685608266) 0.0 See_Comment [Automated [employer] ssage] The system which generated this result transmitted reference range: 0.0 - 10.0 /100 WBCs. The reference range was not used to interpret this result as normal/abnormal. NRBC x10^3 (test code = 0513148167) See_Comment [Automated HidInImagea ge] The system which generated this result transmitted reference range: 10*3/?L. The reference range was not used to interpret this result as normal/abnormal. GRAN MAT (NEUT) % (test code = 770-8) 73.5 % IMM GRAN % (test code = 9580467709) 0.60 % LYMPH % (test code = 736-9) 14.2 % MONO % (test code = 5905-5) 10.1 % EOS % (test code = 713-8) 1.4 % BASO % (test code = 706-2) 0.2 % GRAN MAT x10^3(ANC) (test code = 7340923971) 9.12 10*3/uL 1.88-7.09 H IMM GRAN x10^3 (test code = 5492654338) 0.07 10*3/uL 0.00-0.06 H LYMPH x10^3 (test code = 731-0) 1.77 10*3/uL 1.32-3.29 MONO x10^3 (test code = 742-7) 1.26 10*3/uL 0.33-0.92 H EOS x10^3 (test code = 711-2) 0.18 10*3/uL 0.03-0.39 BASO x10^3 (test code = 704-7) 0.03 10*3/uL 0.01-0.07 Lab Interpretation (test code = 13874-9) Abnormal [facility]) IMMUNE [id number] 05:29:48* Test Item Value Reference Range Interpretation Comme nts RHIG CANDIDATE? (test code = 5188) Yes- see comment A Patient is a candidate for RhIg- Patient is Rh Negative and baby is Rh Positive.Performe d at [facility] Laboratory Services - [facility] Blood [address] [address]Wvtx Free: [phone] No. [id number] Lab Interpretation (test code = 98200-7) Abnormal [facility] HospitalAr[facility]ial Cord [id number] 02:53:06* Test Item Value Reference Range Interpretation Comme nts BASE EXCESS, CORD (test code = 1091432759) -3.0 mEq/L AC PH, CORD (BEAKER) (test code = 8920579151) 7.27 7.18-7.38 PC02, CORD (test code = 1732253441) 56 See_Comment [Automated messa ge] The system which generated this result transmitted reference range: 32 - 66 mmHg. The reference range was not used to interpret this result as normal/abnormal. PO2, CORD (test code = 9045889140) 20 See_Comment [Automated messa ge] The system which generated this result transmitted reference range: 10 - 30 mmHg. The reference range was not used to interpret this result as normal/abnormal. BICARBONATE, CORD (test code = 3517610411) 25 See_Comment [Automated messa ge] The system which generated this result transmitted reference range: 17 - 27 mEq/L. The reference range was not used to interpret this result as normal/abnormal. [facility] HospitalVenous Cord [id number] 02:51:49* Test Item Value Reference Range Interpretation Comme nts VENOUS BASE EXCESS, CORD (test code = 2511238210) -5.0 mEq/L VENOUS PH, CORD (test code = 8556326850) 7.26 7.25-7.45 VENOUS PC02, CORD (test code = 8276065727) 51 See_Comment H [Automated me ssage] The system which generated this result transmitted reference range: 27 - 49 mmHg. The reference range was not used to interpret this result as normal/abnormal. VENOUS PO2, CORD (test code = 6948275191) 20 See_Comment [Automated me ssage] The system which generated this result transmitted reference range: 17 - 41 mmHg. The reference range was not used to interpret this result as normal/abnormal. VENOUS BICARBONATE, CORD (test code = 6720833148) 22 See_Comment [Automa ayde message] The system which generated this result transmitted reference range: 12 - 29 mEq/L. The reference range was not used to interpret this result as normal/abnormal. Lab Interpretation (test code = 54889-5) Abnormal [facility] HospitalANTI-D R/O [id number] 20:18:18* Test Item Value Reference Range Interpretation Comme nts ANTIBODY (test code = 683) Anti-D Probable RhIg Patient received Rhogam on 12/21/22Performed at [facility] Laboratory Services - [facility] Blood [address] [place] [address]Ldcg Free: [phone] No. [id number] [facility] HospitalPOND URINALYSIS W SPECIFIC [id number] 15:07:00* Test Item Value Reference Range Interpretation [...] [facility] URINALYSIS W SPECIFIC [id number] 16:00:00* Test Item Value Reference Range Interpretation [...] [facility] URINALYSIS W SPECIFIC [id number] 20:59:00* Test Item Value Reference Range Interpretation [...] [facility] URINALYSIS W SPECIFIC [id number] 18:27:00* Test Item Value Reference Range Interpretation [...] [facility] URINALYSIS W SPECIFIC [id number] 18:27:00* Test Item Value Reference Range Interpretation [...] [facility] URINALYSIS W SPECIFIC [id number] 18:27:00* Test Item Value Reference Range Interpretation [...] [facility] URINALYSIS W SPECIFIC [id number] 18:27:00* Test Item Value Reference Range Interpretation [...] U APPEAR (test code = 3267) . [facility] W SPECIFIC [id number] 14:41:00* Test Item Value Reference Range Interpretation [...] U APPEAR (test code = 3267) . [facility] HospitalGALV ONLY - SYPHILIS IGG/[id number] 15:06:38* Test Item Value Reference Range Interpretation Comme nts Syphilis IgG/IgM (test code = 80803-2) Non-reactive Non-reactive SAMY (test code = SAMY) Non-reactive - No serologic evidence of T. pallidum infection. Cannot exclude incubating or early syphilis. Submit a second specimen in 2-4 weeks if syphilis is clinically suspected. Equivocal - Further testing to follow. Reactive - Further testing to follow. Lab Interpretation (test code = 80425-4) Normal [facility] HospitalPrenatal Workup, Blood [id number] 19:09:00 * Test Item Value Reference Range Interpretation Comme nts ABO & RH (test code = 20) O NEGATIVE IAT (test code = 1185) Negative [facility] URINALYSIS W SPECIFIC [id number] 14:23:00* Test Item Value Reference Range Interpretation [...] [facility] URINALYSIS W SPECIFIC [id number] 19:12:00* Test Item Value Reference Range Interpretation [...] [facility] URINALYSIS W SPECIFIC [id number] 15:07:00* Test Item Value Reference Range Interpretation [...] [facility] URINALYSIS W SPECIFIC [id number] 15:07:00* Test Item Value Reference Range Interpretation [...] [facility] URINALYSIS W SPECIFIC [id number] 14:51:00* Test Item Value Reference Range Interpretation [...] [facility] URINALYSIS W SPECIFIC [id number] 14:51:00* Test Item Value Reference Range Interpretation [...] [facility] URINALYSIS W SPECIFIC [id number] 14:51:00* Test Item Value Reference Range Interpretation [...] [facility] URINALYSIS W SPECIFIC [id number] 20:52:00* Test Item Value Reference Range Interpretation [...] [facility] URINALYSIS W SPECIFIC [id number] 20:36:00* Test Item Value Reference Range Interpretation [...] [facility] URINALYSIS W SPECIFIC [id number] 20:22:00* Test Item Value Reference Range Interpretation [...] [facility] URINALYSIS W/O SPECIFIC [id number] 18:12:00* Test Item Value Reference Range Interpretation [...] = 3257) NEG Negative - Negati ve [facility]POCT [id number] 18:11:00* Test Item Value Reference Range Interpretation Comme nts POCT PREG (test code = 1605) Positive On board controls acceptable with C Line (test code = 3574) Yes POCT PREG LOT # (test code = 3575) POCT PREG TEST DATE ( test code = 3576) [facility] HospitalTROPONIN [id number] 21:14:40* Test Item Value Reference Range Interpretation Comments TROPONIN I (test code = 2835273072) 0.002 ng/mL See_Comment [Automated message] The system [...] of biotin. Lab Interpretation (test code = 48981-5) Normal [facility] HospitalN-TERMINAL [id number] 21:08:59* Test Item Value Reference Range Interpretation Comme nts NT-proBNP (test code = 0151522620) 53 pg/mL See_Comment [Automated message] The system which generated this result transmitted reference range: <=125. The reference range was not used to interpret this result as normal/abnormal. SAMY (test code = SAMY) Biotin has been reported to cause a negative bias, interpret results relative to patient's use of biotin. Lab Interpretation (test code = 70734-4) Normal [facility] HospitalMAGNESIUM2022-12-08 21:00:36* Test Item Value Reference Range Interpretation Comme nts MAGNESIUM (test code = 8896785346) 1.9 mg/dL 1.7-2.4 Lab Interpretation (test cod e = 25306-0) Normal [facility] HospitalCOMP. METABOLIC PANEL (36056)2022-03-23 21:00:16* Test Item Value Reference Range Interpretation Comme nts NA (test code = 2195071529) 136 mmol/L 135-145 K (test code = 5633976569) 4.4 mmol/L 3.5-5.0 CL (test code = 9034209462) 104 mmol/L 98-108 CO2 TOTAL (test code = 8219966746) 24 mmol/L 23-31 AGAP (test code = 1512504067) 2-16 BUN (test code = 5698374073) 13 mg/dL 7-23 GLUCOSE (test code = 1063126129) 92 mg/dL 70-110 CREATININE (test code = 2968965906) 0.53 mg/dL 0.50-1.04 TOTAL BILI (test code = 5278696315) 0.4 mg/dL 0.1-1.1 CALCIUM (test code = 7582532466) 9.1 mg/dL 8.6-10.6 T PROTEIN (test code = 9287445818) 7.2 g/dL 6.3-8.2 ALBUMIN (test code = 7322138205) 4.6 g/dL 3.5-5.0 ALK PHOS (test code = 2587661732) 50 U/L 34-122 ALTv (test code = 1742-6) 23 U/L 5-35 AST(SGOT) (test code = 8222056892) 32 U/L 13-40 eGFR (test code = 3717641672) mL/min/1.73m2 SAMY (test code = SAMY) Association [...] or urine or abnormalities in imaging tests). [facility] WITH [id number] 20:35:10* Test Item Value Reference Range Interpretation Comme nts WBC (test code = 6690-2) See_Comment [Yo que Vos] The system which generated this result transmitted reference range: 4.30 - 11.10 10*3/?L. The reference range was not used to interpret this result as normal/abnormal. RBC (test code = 789-8) See_Comment L [Yo que Vos] The system which generated this result transmitted [...] 34.5 g/dL 31.6-35.1 RDW-SD (test code = 34286-4) 40.3 fL 39.0-49.9 RDW-CV (test code = 788-0) 12.1 % 12.0-15.5 PLT (test code = 777-3) See_Comment [Automated messa ge] The system which generated this result transmitted reference range: 166 - 358 10*3/?L. The reference range was not used to interpret this result as normal/abnormal. MPV (test code = 11956-1) 9.3 fL 9.5-12.9 L NRBC/100 WBC (test code = 0151378394) See_Comment [Automated [employer] ssage] The system which generated this result transmitted reference range: 0.0 - 10.0 /100 WBCs. The reference range was not used to interpret this result as normal/abnormal. NRBC x10^3 (test code = 0946303480) See_Comment [Automated HidInImagea ge] The system which generated this result transmitted reference range: 10*3/?L. The reference range was not used to interpret this result as normal/abnormal. GRAN MAT (NEUT) % (test code = 770-8) 73.4 % IMM GRAN % (test code = 3491131303) 0.50 % LYMPH % (test code = 736-9) 15.5 % MONO % (test code = 5905-5) 8.2 % EOS % (test code = 713-8) 2.1 % BASO % (test code = 706-2) 0.3 % GRAN MAT x10^3(ANC) (test code = 9814162577) 7.55 10*3/uL 1.88-7.09 H IMM GRAN x10^3 (test code = 1292417330) 0.05 10*3/uL 0.00-0.06 LYMPH x10^3 (test code = 731-0) 1.60 10*3/uL 1.32-3.29 MONO x10^3 (test code = 742-7) 0.84 10*3/uL 0.33-0.92 EOS x10^3 (test code = 711-2) 0.22 10*3/uL 0.03-0.39 BASO x10^3 (test code = 704-7) 0.03 10*3/uL 0.01-0.07 Lab Interpretation (test code = 92645-8) Abnormal [facility] URINALYSIS W/O SPECIFIC [id number] 20:09:00* Test Item Value Reference Range Interpretation [...] = 3257) n/a Negative - Negati ve [facility] URINALYSIS W/O SPECIFIC [id number] 16:00:00* Test Item Value Reference Range Interpretation [...] = 3257) N/A Negative - Negati ve [facility] URINALYSIS W/O SPECIFIC [id number] 16:00:00* Test Item Value Reference Range Interpretation [...] = 3257) N/A Negative - Negati ve [facility] URINALYSIS W/O SPECIFIC [id number] 16:00:00* Test Item Value Reference Range Interpretation [...] = 3257) N/A Negative - Negati ve [facility] URINALYSIS W/O SPECIFIC [id number] 16:00:00* Test Item Value Reference Range Interpretation [...] = 3257) N/A Negative - Negati ve [facility] URINALYSIS W/O SPECIFIC [id number] 16:00:00* Test Item Value Reference Range Interpretation [...] = 3257) N/A Negative - Negati ve [facility] URINALYSIS W/O SPECIFIC [id number] 16:00:00* Test Item Value Reference Range Interpretation [...] = 3257) N/A Negative - Negati ve [facility] [id number] 18:43:00* Test Item Value Reference Range Interpretation Comme nts POCT PREG (test code = 1605) Negative On board controls acceptable with C Line (test code = 3574) Yes POCT PREG LOT # (test code = 3575) POCT PREG TEST DATE ( test code = 3576) [facility] [id number] 18:43:00* Test Item Value Reference Range Interpretation Comme nts POCT PREG (test code = 1605) Negative On board controls acceptable with C Line (test code = 3574) Yes POCT PREG LOT # (test code = 3575) POCT PREG TEST DATE ( test code = 3576) [facility] [id number] 18:43:00* Test Item Value Reference Range Interpretation Comme nts POCT PREG (test code = 1605) Negative On board controls acceptable with C Line (test code = 3574) Yes POCT PREG LOT # (test code = 3575) POCT PREG TEST DATE ( test code = 3576) [facility] [id number] 15:29:00* Test Item Value Reference Range Interpretation Comme nts POCT PREG (test code = 1605) Negative On board controls acceptable with C Line (test code = 3574) Yes POCT PREG LOT # (test code = 3575) POCT PREG TEST DATE ( test code = 3576) [facility] [id number] 15:29:00* Test Item Value Reference Range Interpretation Comme nts POCT PREG (test code = 1605) Negative On board controls acceptable with C Line (test code = 3574) Yes POCT PREG LOT # (test code = 3575) POCT PREG TEST DATE ( test code = 3576) [facility] TRANSV[facility]AL NON [id number] 09:32:00 [facility] BROOKE THOMAS : 1990 Sex: F Patient Name: BROOKE THOMAS Unit No: [id number] EXAMS: CPT CODE: [id number] [place] [address] C3 TIME OF STUDY: 02/20/2021 REASON FOR [...] right ovary measures 2.5 x 1.7 x 1.8cm.The left measures 4.1 x 2.2 x 2.8 [...] Indira MARIE Technologist: Sophy Stevenson Trnscrbd D/ (931) JacobSI1 Probe: [id number] Orig Print D/T: S: 02/20/2021 (0935) Probe: ELISABETH Cavanaugh NAME: BROOKE THOMAS [address] [place] [address] PHYS: Indira Arment[place], [place] [address] : 1990 AGE: 30 SEX: F LOC: B.ERS PHONE #: [phone] EXAM DATE: 02/20/2021 STATUS: REG ER FAX #: [phone] RAD NO: Page 1Signed ReportLACTIC [id number] 09:17:00 * Test Item Value Reference Range Interpretation Comme nts LACTIC ACID (test code = LACT) 2.1 mmol/L 0.4-2.0 H ON 02/20/21 AT 0 917, B.LAB.EJK CALLED TO JASSON HUNTER. The report was confirmed by read back protocols Y,N: YES. Critical values after the first occurrence are excluded. - CT ABD PELVIS W/[id number] 08:35:00 [facility] BROOKE THOMAS : 1990 Sex: F Patient Name: BROOKE THOMAS Unit No: [id number] EXAMS: CPT CODE: [id number] CT ABD PELVIS W/CONT 66887TNTJ: - CT ABD PELVIS W/CONT LOCATION: C3 INDICATION: 30 years -old Female with bl flank pain / hx renal; calculi TECHNIQUE: Contrast - IV contrast was given. No oral contrast was given Portal venousphase - abdomen and pelvis No delayed phase images were obtained. Reconstructions - coronal and sagittal planes This exam was performed according to our departmental dose-optimization program, which includes automated exposure control, adjustment of the mA and/or kV according to patient size and/oruse of iterative reconstruction technique COMPARISON: None FINDINGS: Statements: None. Thoracic: Included images of the lower chest demonstrate no abnormalities. Hepatobiliary: The liver is normal wit hout focal lesion. The gallbladder is normal. No [...] dissection. Lymphatics: No enlarged lymph nodes by CTsize criteria. Bones/Soft Tissues: No acute osseous findings. No ventral hernias. Peritoneum/Other:No extraluminal air. No extraluminal fluid. IMPRESSION: 2.2 cm cystlike lesion in the left ovary. Formerly [facility] NAME: BROOKE THOMAS [address] [place] [address] PHYS: Indira [place], [place] [address] : 1990 AGE: 30 SEX: F LOC: B.ERS PHONE #: [phone] EXAMDATE: 02/20/2021 STATUS: REG ER FAX #: [phone] RAD #: D/C DT PAGE 1 Signed Report (CONTINUED) Patient Name: BROOKE THOMAS Unit No: [id number] EXAMS: CPT CODE: [id number] CT ABD PELVIS W/CONT 07785 <Continued> No evidence of obstructive uropathy. at 0835 Reported and signed by: Adelso Adler MD CC: Indira MARIE Dictated Date/Time: 02/20/2021 (0835) Technologist: Orlando Burgos CTDI: 9.22 DLP: 492.32 Trnscrpt: 02/20/2021 (0835) JacobHV2 ELISABETH Cavanaugh NAME: SADIE THOMAS[address] PHYS: ABBE.[place] [address] : 1990 AGE: 30 SEX: F LOC: [place] PHONE #: [phone] EXAM DATE: 02/20/2021 STATUS: REG ER FAX #: [phone] RAD #: D/C DT PAGE 2 Signed Report Patient Name: BROOKE THOMAS Unit No: [id number] EXAMS: CPT CODE: [id number] CT ABD PELVIS W/CONT 65288 <Continued> Orig Print D/T: S: 02/20/2021 (0839) ELISABETH Cavanaugh NAME: [address] PHYS: ABBE. - [place] [address] : 1990 AGE: 30 SEX: F LOC: Marisabel.ERS PHONE #: [phone] EXAM DATE: 2020 STATUS: REG ER FAX #: [phone] RAD #: D/C DT PAGE 3 Signed ReportLIPASE 2021-02-20 08:03:00* Test Item Value Reference Range Interpretation Comme nts LIPASE (test code = LIP) 50 Unit/L 114-286 L BASIC METABOLIC [id number] 08:03:00* Test Item Value Reference Range Interpretation [...] interpret this result as normal/abnormal. HEPATIC FUNCTION [id number] 08:03:00* Test Item Value Reference Range Interpretation [...] ALKP) 86 Unit/L 45-117 N CBC W/O [id number] 07:54:00* Test Item Value Reference Range Interpretation [...] 6.8-11.2 N UA RFLX MICR CULT IF [id number] 07:51:00* Test Item Value Reference Range Interpretation [...] = UACULT) Crit NOTmet CULT-N/A Criteria [facility] Specimen comments: ccIndication for culture: Suprapubic PainUR HCG QUAL 2021-02-20 07:51:00* Test Item Value Reference Range Interpretation Comme nts UR HCG QUAL (test code = HCGQLU) NEGATIVE NEG Very dilute urin es with a low specific gravity may notcontain sales representative metals levels of hCG. Specimen comments: ccIndication for culture: Suprapubic Pain- XR ELBOW 3 + V LT 2018-06-06 18:55:00FAX: Ortega Barrera MD [phone] [place]: E St: REG FAX: Swapnil Smith NP [phone] ----- Patient Name: BROOKE SYKES Unit No: [id number] EXAMS: CPT CODE: [id number] XR ELBOW 3 + V LT [address] EXAMINATION: - XR FOREARM 2 VIEWS LT, [...] 06/06/2018 (1858) ELISABETH Cavanaugh NAME: BROOKE SYKES [address] [place] [address] Bl PHYS: TERE. - Swapnil Gonzalez NP, [place] [address] : 1990 AGE: 28 SEX: F LOC: STEPHANIE PHONE #: [phone] EXAM DATE: 06/06/2018 STATUS: REG ER FAX #: [phone] RAD NO: DC Dt: PAGE 1 Signed Report- XR FOREARM 2 VIEWS [id number] 18:55:00 FAX: Ortega Barrera MD [phone] [place]: St: REG FAX: Swapnil Smith NP [phone] ----- Patient Name: BROOKE SYKES Unit No: [id number] EXAMS: CPT CODE: [id number] XR FOREARM [address] [place] [address] EXAMINATION:- XR FOREARM 2 VIEWS LT, - XR [...] Tavo.PR7 Orig Print D/T: S: 06/06/2018 (1858) ELISABEHT Cavanaugh NAME: BROOKE SYKES [address] [place] [address] Blvd PHYS: TERE. Swapnil Gonzalez [place], [place] [address] : 1990 AGE: 28 SEX: F LOC: STEPHANIE PHONE #: [phone] EXAMDATE: 06/06/2018 STATUS: REG ER FAX #: [phone] RAD NO: DC Dt: PAGE 1 Signed Report- XR HAND 3 + V [id number] 18:54:00FAX: Ortega Barrera MD [phone] [place]: St: REG FAX: Swapnil Smith NP [phone] ----- Patient Name: BROOKE SYKES Unit No: [id number] EXAMS: CPT CODE: [id number] XR HAND 3 + [place] [address] EXAMINATION: - XRWRIST 3 + V LT, [...] 06/06/2018 (1856) ELISABETH Cavanaugh NAME: BROOKE SYKES [address] [place] [address] Bl PHYS: TERE. - Swapnil [place], [place] [address] : 1990 AGE: 28 SEX: F LOC: STEPHANIE PHONE #: [phone] EXAM DATE: 06/06/2018 STATUS: REG ER FAX #: [phone] RAD NO: DC Dt: PAGE 1 Signed Report- XR WRIST 3 + V [id number] 18:54:00FAX: Ortega Barrera MD [phone] [place]: E St: REG FAX: Swapnil Smith NP [phone] ---- Patient Name: BROOKE SYKES Unit No: [id number] EXAMS: CPT CODE: [id number] XR WRIST 3 + [place] [address] EXAMINATION: - XR WRIST 3 + V [...] 06/06/2018 (1856) ELISABETH Cavanaugh NAME: BROOKE SYKES [address] [place] [address] PHYS: TERE. - Swapnil Gonzalez [place], [place] [address] : 1990 AGE: 28 SEX: F LOC: STEPHANIE PHONE #: [phone] EXAM DATE: 06/06/2018 STATUS: REG FAX #: [phone] RAD NO: DC Dt: PAGE 1 Signed Report- XR HUMERUS 2 + V [id number] 18:51:00FAX: Ortega Barrera MD [phone] [place]: E St: REG FAX: Swapnil Smith NP [phone] ----- Patient Name: BROOKE SYKES Unit No: [id number] EXAMS: CPT CODE: [id number] XR HUMERUS 2 + [place] [address] EXAMINATION: -XR HUMERUS 2 + V LT. [...] 06/06/2018 (1854) ELISABETH Cavanaugh NAME: BROOKE SYKES [address] [place] [address] PHYS: TERE. [place]apnil [place] [address] : 1990 AGE: 28 SEX: F LOC: B.ERS PHONE #: [phone] EXAM DATE: 06/06/2018 STATUS: REG ER FAX #: [phone] RAD NO: DC Dt: PAGE 1 Signed Report- XR SHOULDER 2 + V [id number] 18:50:00FAX: Ortega Barrera MD [phone] [place]: E St: REG FAX: Swapnil Smith NP [phone] ----- Patient Name: BROOKE SYKES Unit No: [id number] EXAMS: CPT CODE: [id number] XR SHOULDER 2 + [place] LT [address] EXAMINATION:- XR SHOULDER 2 + V LT. [...] JacobPR7 Orig Print D/T: S: 06/06/2018 (1852) [facility] [place] NAME: BROOKE SYKES [address] [place] [address] Bl PHYS: - Swapnil Gonzalez NP [place], [place] [address] : 1990 AGE: 28 SEX: F LOC: B.ERS PHONE #: [phone] EXAM DATE: 06/06/2018 STATUS: REG ER FAX #: [phone] RAD NO: DC Dt: PAGE 1 Signed Report Notes Date/Time Note Provider Source 2023-12-28 16:00:00 Age: [age] year old GA: 30w2d ASSESSMENT: Brooke Thomas is a 33 year old at 30w1d who presents for routine visit. Patient Active Problem List Diagnosis Tobacco use in High grade squamous intraepithelial lesion (HGSIL), grade 2 STEFAN, on biopsy of cervix S/P LEEP Narcolepsy due to underlying condition without cataplexy Suboxone maintenance treatment complicating , antepartum Factor 5 Leiden mutation, heterozygous High-risk in third trimester Obesity (BMI 30-39.9) Need for HPV vaccination Positive test for herpes simplex virus (HSV) antibody PLAN 1. High-risk in third trimester 2. 30 weeks gestation of - POCT Urinalysis w/o Specific Oneida- negative 3. Marginal insertion of umbilical cord affecting management of mother in third trimester - CONSULT MATERNAL MEDICINE ULTRASOUND Multiple Gestation: No U/S- 12/13 with - Marginal cord. There has been appropriate interval growth. The MIGUEL was normal. F/u US scheduled for serial growth. Discussed etiology, some possible complications- including IUGR, PTD and placenta abruption. Stressed the importance of routine serial growth as previously recommended. 4. Need for Tdap vaccination - TDAP VACCINE, >10 YRS, IM 5. Flu vaccine need - FLU VACC ([id number]), 6 MO-64 YRS, .5ML, IM, TIV (FLUCELVAX) 6. Left wrist pain Advised to wear wrist brace, massage, topical pain reliever, Tylenol, heat prn. If worsening will refer to PT or ortho as clinically indicated 7. Positive test for herpes simplex virus (HSV) antibody Denies sxs- will start suppressive therapy from 35-36 weeks unless clinically indicated 8. Encounter for tubal ligation counseling Pt desires BTL PP Explained that it is a surgical procedure that is done by ligating/cutting/occluding a segment of the tubes;hence, it is a permanent form of control that requires a surgical procedure for reversal (if she changes her mind afterwards), which might not be successful and increases the risk of ectopic if does eventually occur. Pt verbalized understanding and signed consent. -Reviewed with patient C Labor precautions reviewed with patient 1. If your water breaks(gush or a constant trickle). 2. Bleeding like your period. 3. If your baby's movements are less than 10 in an hour. 4. Contractions or pain that is continuous. She verbalized understanding --All questions answered RTC with Dr. Paula in 2 weeks or prn Rina Jewell DNP, [facility] 12/28/2023 at 4:23 PM I spent a total of 30 minutes on this encounter with more than 50% on face to face with patient . The time spent for patient care includes: PreCharting (eg, review of tests, notes, etc.), Obtaining and/or reviewing separately obtained history (Care Everywhere or paper records), Performing a medically appropriate examination and/or evaluation, Counseling, educating the patient and Documenting clinical information in the electronic or other health record. T [facility] 2023-12-14 14:00:00 Images from the original note were not included. Pt wanted to fast for 1 hr GTT. Venipuncture collection performed by clean technique on the right anticubitus. Total of 1 attempts were made. Slight pressure and a bandage/dressing were applied to the site(s). The patient experienced no complications. The following specimens were processed according to instructions and sent to [facility] laboratories per lab order on 12/14/2023: LT BLUE SST 1 RED 1 LAV 2 PPT DK GREEN (LiHep) DK GREEN (SodH) DUCKWORTH DK BLUE (K2) DK BLUE (S) ACD Blood Culture NIPT/NTD [facility] 2023-12-13 16:00:00 Age: [age] year old GA: 28w0d Shortness of breath -Intermittent; none currently -Patient was diagnosed with pneumonia on 12/05/2023 at ER and was treated with azithromycin. Was told that it might be from her hiatal hernia per patient. Patient was also diagnosed with a hiatal hernia and was given Maalox. -Lungs clear to auscultation today -Referral to cardiology ??Hiatal hernia/GERD -Pepcid prescribed -Small frequent meals discussed and avoid triggers -Sleep with head elevation discussed Factor 5 Leiden mutation, heterozygous - dx following son with stroke, the child was homozygous - No personal history of DVT - Prescribed lovenox "one shot per day" during second full term in 2016 and in 2022 - She does not take daily anticoagulation outside of -on prophylactic Lovenox History of Drug use Suboxone maintenance treatment -patient is seeing provider once a month; next appointment on 12/21/23 - on suboxone 8/2 mg sublingual film - Appropriate interval growth on 12/06/2023 ultrasound -Continue serial growth scan. Next ultrasound scheduled for 12/28/2023. Rh neg -Patient needs to go get labs and return for RhoGAM Anemia - on iron HSV II IgG positive -Suppression at 36 weeks unless clinically indicated otherwise 28 weeks labs serologies not completed yet. Will do it tomorrow Follow-up in 2 weeks for visit with SEWER TAPPER Follow-up in 4 weeks for visit with Beni [facility] 2023-12-12 15:12:53 See telephone encounter dated 12/12/23 for details. [facility] 2023-12-12 15:11:44 Returned call to pt regarding message below. Offered pt appt for tomorrow at [address] Paula (per provider) Pt accepted. Strongly advised pt to go to ER if sx worsen. Pt verbalized understanding. T [facility] 2023-12-12 10:52:26 Pt is currently 28 weeks and has been having shortness of breath since 12/05. She stated that she is currently have shortness of breath but when she sits down and calm down it is not as bad as it is normally. Sh stated that it gets worse at night time. Please assist thank yo. Brayden Orona [facility] 2023-12-10 14:05:11 Pt was recently diagnosed with pneumonia at [facility] and for a hiatal hernia. Pt was given oral abx for pneumonia and finished today. Pt states she was told to take Maalox oral suspension for hiatal hernia. Pt asking if she should continue taking Maalox and if she needs a fol/up chest xray to see if pneumonia has improved. Please advise [employer] [facility] 2023-12-10 14:04:55 I will send this to Dr. Paula for her review! [employer] [facility] 2023-11-22 15:45:00 Age: [age] year old GA: [...] visit in 4 week for PN with SEWER TAPPER Follow-up in 6 wks for PN with Paula [facility] 2023-10-19 12:05:21 Informed pt to come in for nurse visit to leave urine cx per Dr. Paula. Appt made for today, pt verbalized understanding. [facility] 2023-10-18 12:25:00 Pt stated she went to [facility] on 10/08 for vomiting and was told she still had a UTI. Pt was given IV ABX but was told she would be getting a rx for oral ABX. [facility] never sent RX to pt's pharmacy. Pt [...] other recommendations. Pt verbalized understanding. Please advise. [facility] 2023-10-17 15:09:51 Attempted to contact pharmacy. Line is busy after being transferred. Attempted to contact patient, unable to leave . Oneil Hutton RN 10/17/2023 3:10 PM Oneil Hutton RN [facility] 2023-10-17 14:57:14 Pt says she was diagnosed with uti by [facility] and antibiotic was suppose to be called in but wasn't, she wants Dr Paula to call it in says we got her results. Kesha Slade [facility] 2023-10-12 14:45:00 Age: [age] year old GA: 19w1d Doing well. Patient states that she was seen at ER and diagnosed with UTI. 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 Patient needs a refill [...] visit in 4 week for PN with SEWER TAPPER Follow-up in 8 wks for PN with Paula [facility] 2023-09-25 11:30:00 Given 50gm fruit punch glucola. Finished at 1139. T [facility] 2023-09-25 11:30:00 Images from the original note were not included. Venipuncture collection performed by clean technique on the left anticubitus. Total of 1 attempts were made. Slight pressure and a bandage/dressing were applied to the site(s). The patient experienced no complications. The following specimens were processed according to instructions and sent to [facility] laboratories per lab order on 09/25/2023 : LT BLUE SST 1 RED LAV 2 PPT DK GREEN (LiHep) DK GREEN (SodH) DUCKWORTH DK BLUE (K2) DK BLUE (S) ACD Blood Culture NIPT/NTD T [facility] 2023-09-21 16:15:00 Images from the original note [...] processed according to instructions and sent to [facility] laboratories per lab order on 09/21/2023 : LT BLUE 4 SST 1 RED LAV PPT DK GREEN (LiHep) DK GREEN (SodH) DUCKWORTH DK BLUE (K2) DK BLUE (S) ACD Blood Culture NIPT/NTD Patient has been identified by and name and was provided with cup, antiseptic towelette, and clean catch instructions. 2 urine specimen(s) sent. 2 Unpreserved Urine Culture Aptima tube Other urine T [facility] 2023-09-14 15:00:00 Age: [age] year old GA: 15w1d Doing well Factor 5 Leiden mutation, heterozygous - dx following son with stroke, the child was homozygous - No personal history of DVT - Prescribed lovenox "one shot per day" during second full term in 2017 and in 2022 - She does not take daily anticoagulation outside of -on prophylactic Lovenox History of Drug use Suboxone maintenance treatment -patient is seeing provider once a month - on suboxone 8/2 mg sublingual film New OB labs not completed yet. Will do it this weekend Next visit in 4 week [facility] 2023-09-06 16:04:11 Sydney results received via fax. Panorama- low risk, female Horizon- negative for 14 out of 14 diseases Spoke with patient, name and verified. Patient informed of results including gender. Results signed, will scan and upload a copy to [facility]. Bev Gil RN 09/06/2023 4:04 PM T [facility] 2023-09-05 16:03:03 Attempted to contact patient by phone to provide test results, no answer, message left on voicemail to call back. Bev Gil RN 09/05/2023 4:03 PM T [facility] 2023-09-03 19:34:20 Pt given printed and verbal discharge paperwork Pt awake alert oriented, resp reg unlabored, skin w/d, color appropriate for race, moves all ext well,pt encouraged to follow up with OB Advised to seek medical attention for new/prolonged/worsening of symptoms Awake, alert oriented, resp reg unlabored, skin w/d, pt leaving amb with steady gait, in no apparent distress Марина Soria RN [facility] 2023-09-03 19:15:17 Pt arrived ambulatory without assist. Pt states " When I went number two I saw things in the toilet and when I looked it up online it said it could have been a parasite from eating under cooker food. I am having pain in stomach." No bleeding, cramping, vaginal discharge. G4 T3 at [facility] Viji Mcdonald RN [facility] - Health 2023-09-03 19:12:00 [facility] Emergency Department Note Patient Name: Brooke Thomas Date of : 1990 33 year old female Treatment Room: Room/bed info not found Primary Care Physician: Amena Betancourt Patient Escorted by: Self [9] Mode of Arrival: Personal means [1] EMS Treatment Prior to ED Arrival: POLICY DIRECTOR treatment: None Travel and Exposure Screening: Symptoms [...] She follows with Dr. Paula here at [facility]. She is compliant with her vitamins. No recent trips or travel. No bad food exposure. No sick contacts. Here for evaluation. Past Medical History/Immunizations: Past Medical History: Diagnosis Date Anemia of mother in , antepartum 02/14/2023 Endometriosis determined by laparoscopy Factor 5 Leiden mutation, heterozygous lovenx during Late menses 11/12/2021 Narcolepsy 1998 d/cd meds Pap smear abnormality of cervix [...] Follow-up: Electronically signed by: Nadeen Davis DO 09/03/231929 [facility] 2023-09-03 12:06:04 Per provider, patient to go to urgent care or pcp to be evaluated. Patient notified, does not have pcp, going to urgent care. Bev Gil RN 09/03/2023 12:06 PM [facility] 2023-09-03 11:56:46 Spoke with patient, states that she went to restroom, had BM, noticed in toilet what looked to be like a small parasite. Patient states it was small and looked like a shrimp, had legs. Patient is concerned. Denies any symptoms currently. Patient would like to be seen for piece of mind. Appt scheduled. 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 Expectations for weight gain this include [...] COVID pandemic) Next visit in 4 week [facility] 2023-04-18 13:47:36 Brooke Thomas is a 33 year old female Patient called to reschedule BTL consult with PGY Please contact pt at Telephone Information: R RELATIONS SUPERVISOR Jagruti Saravia [facility] 2023-03-14 09:28:37 Spoke with patient and let her know that she had to get forms from her employer for provider to fill out. R RELATIONS SUPERVISOR Gagan Meza [facility] 2023-03-01 14:17:09 Spoke with patient and she was given the status of the pre-certification. R RELATIONS SUPERVISOR Gagan Meza [facility] 2022-12-12 14:10:33 Formatting of this n ote might be different from the original. Noted. Lilian Quinonez LVN [facility] 2022-12-12 13:56:02 Formatting of this n ote might be different from the original. Patient in clinic for [facility] stating that she has been in the ER for vomiting all night; states that she just wants to feel better. Scheduled patient to be seen today at 2:00 with provider. Gagan Meza [facility] 2022-11-17 12:52:37 Formatting of this n ote might be different from the original. Notified patient of low risk NIPT results. No further questions or testing desired at this time. Results released to patient via [employer] portal. Amber Rey [facility] 2022-11-10 13:35:01 Formatting of this n ote might be different from the original. Pt in clinic for labs, discussed problem list with patient. Pt was seen by genetic counselor and reports all questions answered. Verbalized understanding. Lorna Tucker RN 11/10/22 1:35 PM [facility] 2022-11-10 11:43:08 Formatting of this n ote might be different from the original. Suboxone maintenance treatment complicating , antepartum That was put on her problem list by amena betancourt her pcp. Is she not on suboxone treatment anymore? If not I can put a comment on her problem. What labs does she have question about? CAROLYNE Mueller 11/10/2022 11:44 AM [facility] 2022-11-10 10:04:57 Formatting of this n ote might be different from the original. Called pt x 2. No answer. No vm box set up. Lorna Tucker RN 11/10/22 10:05 AM T [facility] 2022-11-10 08:50:02 Formatting of this n ote might be different from the original. Pt requesting call back, states she was looking through her MyChart results and would like clarification. Please call [phone]. Clarisa Najera [facility] 2022-11-07 15:53:06 Formatting of this n ote [...] understanding. Lorna Tucker RN 11/07/22 3:54 PM [facility] 2022-11-07 15:35:55 Formatting of this n ote might be different from the original. Brooke Thomas is a 32 year old female Pt is calling wanting to know if genetic testing is normal or if there is something wrong. Please contact pt. Silva Coleman [facility] 2021-02-20 07:25:00 [facility] EMERGENCY PROVIDER REPORT REPORT#:[id number] REPORT STATUS: Signed DATE:02/20/21 TIME: 724 PATIENT: BROOKE THOMAS UNIT #: [id number] ROOM/BED: AGE: 30 SEX: F PCP PHYS: No Primary or Family Physician SERVICE AUTHOR: Indira Tyler PA * ALL edits or amendments must be made on the electronic/computer document * Indira Tyler 02/20/21724: HPI-Abd Pain [...] Room air 02/20 1030 Temp 98.6 02/20 103 Pulse 80 02/20 [...] - 8.0 pH UNITS) 6.5 Ur Specific Oneida (1.001 - 1.035 SG) 1.026 Urine Protein [...] ULTRASOUND - US TRANSVAGINAL NON OB 02/20 0851 Report Impression - Status: SIGNED Entered: 02/20/2021 0935 IMPRESSION: 1. No focal uterine masses. IUD in place in the endometrium. 2. No adnexal masses. 2.2 cm dominant left ovarian follicle, otherwise unremarkable ovaries. Impression By: Julianna Miranda MD Lab Imaging Statement Laboratory radiographic [...] PRN PRN 02/20 730 DC 02/20 IV 743 Patient Discharge Departure Vital Signs/Condition Vital Signs First Documented: Result Date Time Pulse Ox 100 02/20 0709 B/P 103/63 02/20 07 B/P Mean 76 02/20 709 O2 Delivery Room air 02/20 709 Temp 97.3 02/20 709 Pulse 114 02/20 0709 Resp 20 02/20 0709 Last Documented: Result Date Time Pulse Ox [...] Manuela Hammer. Return for worsening symptoms. 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 I was available for consultation as needed at all times during the patient's visit in the emergency department. I agree with the clinical impression, plan and disposition. at 1457 at 0915 [facility] #:[id number] END OF REPORT [facility] 2018-06-06 18:02:00 [facility] ([facility]) EMERGENCY PROVIDER REPORT REPORT#:[id number] REPORT STATUS: Signed DATE:06/06/18 TIME: 180 PATIENT: BROOKE SYKES UNIT #: [id number] ROOM/BED: AGE: 28 SEX: F PCP PHYS: [...] Patient denies . Risk-Trauma Minor/Fall Risk Stratification Tridell Coma Score > Age 5 Elena Coma [...] Temp 36.7 06/06 1714 Pulse 84 06/06 1715 Resp 18 06/06 [...] acute osseous abnormality is identified. Impression By: t.DANIEL Cardenas MD RADIOLOGY - XR FOREARM 2 [...] 06/06 1801 DC 06/06 Acetaminophen PO 06/06 1802 1810 Patient Discharge Departure Vital Signs/Condition Vital Signs First Documented: Result Date Time Pulse Ox 100 06/06 171 B/P 137/81 06/06 171 B/P Mean 99 06/06 171 O2 Delivery Room air 06/06 1714 Temp 36.7 06/06 171 Pulse 84 06/06 171 Resp 06/06 Last Documented: Result Date Time Pulse Ox 100 06/06 171 B/P 137/81 06/06 171 B/P Mean 99 06/06 171 O2 Delivery Room air 06/06 1714 Temp 36.7 06/06 1714 Pulse 84 06/06 1715 Resp 18 06/06 1714 All vital signs [...] a call to 911. at 1912 RPT #:[id number] END OF REPORT [facility] 2018-06-06 18:02:00 [facility] ([facility]) EMERGENCY PROVIDER REPORT REPORT#:[id number] REPORT STATUS: Signed DATE:06/06/18 TIME: 1801 PATIENT: BROOKE SYKES UNIT #: [id number] ROOM/BED: AGE: 28 SEX: F PCP PHYS: [...] Stratification Elena Coma Score > Age 5 Tridell Coma Score > Age 5 Response Value [...] 06/06 1927 Pulse 83 06/06 1927 Resp 06/06 Review of Vital Signs Reviewed Focused PE [...] acute osseous abnormality is identified. Impression By: [email or web address] - Pau Cardenas MD Imaging Statement Radiographic [...] Saw Pt Alone I have reviewed the PA/SEWER TAPPER's note and plan of care. I was available for consultation as needed at all times during the patient's visit in the emergency department. I agree with the clinical impression, plan and disposition. at 1912 at 0135 RPT #:[id number] END OF REPORT [facility]
[2024-01-01 06:16] LABS: Specific Gravity 1.012 (1.005-1.030); Urine Bilirubin NEGATIVE (Negative); Urine Blood Negative (Negative); Urine Clarity Clear (Clear); Urine Color Light-Yellow (Yellow); Urine Glucose NEGATIVE (Negative); Urine Ketones NEGATIVE (Negative); Urine Microscopic Reflex YN NO UMIC; Urine Nitrite NEGATIVE (Negative); Urine Protein NEGATIVE (Negative); Urine Urobilinogen Normal (Normal); Urine pH 6.5 (5.0-7.0)
[2024-01-01 06:21] LABS: Basophils % 0.3 % (0-1.3)
[2024-01-01 06:50] LABS: Absolute Eosinophils 0.3 K/uL (0-0.5); Absolute Lymphocytes (CBC) 1.1 K/uL (0.7-4.9); Absolute Monocytes 1.1 K/uL (0.1-1.3); Absolute Neutrophil 7.2 K/uL (1.8-8.0); Eosinophils % 3.4 % (0-4.4); Hematocrit 27.7 % (36.0-45.0); Hemoglobin 10.1 g/dL (12.0-15.0); Lymphocytes % 11.5 % (15.3-44.8); MCH 33.8 pg (27.0-35.0); MCHC 36.3 g/dL (32.0-36.0); MCV 93.1 fL (80-100); MPV 6.7 fL (7.6-11.3); Monocytes % 10.8 % (3.3-12.3); Platelets 263 thou/uL (152-406); RBC Red Blood Cell Count 2.98 M/uL (3.86-4.86); Red Cell Distribution Width 13.3 % (12.1-15.2)
[2024-01-01] MEDS ORDERED: NA CHLORIDE 0.9% 1,000 ML ONE (06:57)
[2024-01-01 07:05] LABS: Albumin 2.5 g/dL (3.4-5.0); Albumin/Globulin Ratio 0.7 (1.1-1.8); Anion Gap 9.5 mEq/L (5.0-15.0); Bilirubin Total 0.3 mg/dL (0.2-1.0); Globulin 3.5 g/dL (2.3-3.5); Potassium 3.5 mEq/L (3.5-5.1)
--- NOTE | 2024-01-01 07:43 | ER ---
Nurse's Notes [facility] Name: Brooke Thomas Age: 33 yrs Sex: Female : 1990 Arrival Date: 01/01/2024 Time: 04:50 Bed 7 Private MD: Diagnosis: Acute dyspnea, Third trimester , discomfort of Presentation: 12/31 04:59 Chief complaint: Patient states: difficulty breathing that began this morning. PT is 31 ss weeks . Coronavirus screen: Client denies travel out of the [place] in the last 14 days. Ebola Screen: Patient denies exposure to infectious person. Patient denies travel to an Ebola-affected area in the 21 days before illness onset. Initial Sepsis Screen: Does the patient meet any 2 criteria? No. Patient's initial sepsis screen is negative. Does the patient have a suspected source of infection? No. Patient's initial sepsis screen is negative. Risk Assessment: Do you want to hurt yourself or someone else? Patient reports no desire to harm self or others. Onset of symptoms was January 01, 2024. 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 - Infectious Disease History:: Denies. - Social history:: Smoking status: Patient denies any tobacco usage or history of. - Family history:: not pertinent. Screenin:02 [facility] ED Fall Risk Assessment (Adult) History of falling in the last 3 months, dd2 including since admission No falls in past 3 months (0 pts) Confusion or Disorientation No (0 pts) Intoxicated or Sedated No (0 pts) Impaired Gait No (0 pts) Mobility Assist Device Used No (0 pt) Altered Elimination No (0 pt) Score/Fall Risk Level 0 - 2 = Low Risk Oriented to surroundings, Maintained a safe environment, Hourly rounding (assess needs \T\ fall precautionary measures) done. Abuse screen: Denies threats or abuse. Nutritional screening: No deficits noted. Tuberculosis screening: No symptoms or risk factors identified. Assessment: 06:02 General: Appears in no apparent distress. Behavior is calm, cooperative, appropriate dd2 for age. Pain: Denies pain. Neuro: Level of Consciousness is awake, alert, obeys commands, Oriented to person, place, time, situation, Appropriate for age. Cardiovascular: Patient's skin is warm and dry. Rhythm is regular. Respiratory: Reports shortness of breath at rest on exertion cough that is non-productive, Airway is patent Respiratory effort is even, unlabored, Respiratory pattern is regular, symmetrical, Breath sounds are clear bilaterally. GI: No signs and/or symptoms were reported involving the gastrointestinal system. Abdomen is round. : No signs and/or symptoms were reported regarding the genitourinary system. EENT: No signs and/or symptoms were reported regarding the EENT system. Derm: No signs and/or symptoms reported regarding the dermatologic system. Skin is intact, is healthy with good turgor, Skin temperature is warm. Musculoskeletal: No signs and/or symptoms reported regarding the musculoskeletal system. Range of motion: intact in all extremities. 06:42 Reassessment: Patient appears in no apparent distress at this time. Patient and/or bm8 family updated on plan of care and expected duration. Pain level reassessed. Patient is alert, oriented x 3, equal unlabored respirations, skin warm/dry/pink. Patient denies pain at this time. Patient states feeling better. Patient states symptoms have improved. Respiratory: Airway is patent Respiratory effort is even, unlabored, Respiratory pattern is regular, symmetrical, Breath sounds are clear bilaterally. 07:37 Reassessment: Patient appears in no apparent distress at this time. General: Appears in iw no apparent distress. comfortable. Respiratory: Airway is patent Respiratory effort is even, unlabored, Respiratory pattern is regular, symmetrical. Vital Signs: 04:59 BP 114 / 64; Pulse 87; Resp 17; Temp 97.2(TE); Pulse Ox 100% on R/A; Weight 88.45 kg; ss Height 5 ft. 4 in. ; Pain 0/10; 06:02 BP 99 / 52; Pulse 82; Resp 17; Pulse Ox 97% ; dd2 06:42 BP 106 / 55; Pulse 65; Resp 12; Temp 97.2; Pulse Ox 96% on R/A; Pain 0/10; bm8 07:37 BP 114 / 54; Pulse 61; Resp 19; Pulse Ox 100% on R/A; iw 04:59 Body Mass Index 33.47 (88.45 kg, 162.56 cm) ss 04:59 Pain Scale: Adult ss 06:42 Pain Scale: Adult bm8 [place] Coma Score: 06:02 Eye Response: spontaneous(4). Motor Response: obeys commands(6). Verbal Response: dd2 oriented(5). Total: 15. 06:42 Eye Response: spontaneous(4). Motor Response: obeys commands(6). Verbal Response: bm8 oriented(5). Total: 15. 18 03:36 Eye Response: spontaneous(4). Motor Response: obeys commands(6). Verbal Response: sp4 oriented(5). Total: 15. ED Course: 12/31 04:51 Patient arrived in ED. jj6 05:00 Triage completed. ss 05:00 Arm band placed on right wrist. ss 05:35 Moshe Chris MD is Attending Physician. sp4 05:46 TONIA WEINBERG, MARION is Primary Nurse. dd2 06:01 CBC with Diff Sent. dd2 06:01 CMP Sent. dd2 06:01 Lipase Sent. dd2 06:01 Urinalysis w/ reflexes Sent. dd2 06:02 Patient has correct armband on for positive identification. Bed in low position. Call dd2 light in reach. Side rails up X 1. Provided Education on: LABS, CALL LIGHT, PROCEDURES. Client placed on continuous cardiac and pulse oximetry monitoring. NIBP monitoring applied. Door closed. Warm blanket given. Verbal reassurance given. 06:02 Initial lab(s) drawn, by me, sent to lab. Urine collected: clean catch specimen, clear. dd2 Missed attempt(s): 20 gauge in right antecubital area. Bleeding controlled, band aid applied, catheter tip intact. 06:11 US OB Limited In Process Unspecified. EDMS 06:42 No provider procedures requiring assistance completed. Lab(s) recollected, by me, sent bm8 to lab. Inserted saline lock: 22 gauge in right hand, using aseptic technique. Blood collected. Flushed with 10 mL NS. Patient maintains SpO2 saturation greater than 95% on room air. 07:54 Primary Nurse role handed off by TONIA WEINBERG, MARION mcbride 08:03 Clarisa Toro, RN is Primary Nurse. iw Administered Medications: 06:55 Drug: NS 0.9% IV 1000 ml IV at 1 bolus Per protocol; 1000 mL bolus Route: IV; Rate: 1 bm8 bolus; Site: right hand; Medication: 06:02 VIS not applicable for this client. dd2 Outcome: 07:43 Discharge ordered by MD. lee 08:03 Patient left the ED. iw Signatures: Dispatcher [employer] EDMS Cherri Akins Irene, RN RN iw Elissa Cardona RN RN ss Jeffries, Jennifer jj6 Potepalov, Sergey, MD MD sp4 Grayson Morales RN RN bm8 TONIA WEINBERG, RN RN dd2
--- NOTE | 2024-01-01 07:43 | EDPHYS ---
Physician Documentation [facility] Name: Brooke Thomas Age: 33 yrs Sex: Female : 1990 Arrival Date: 01/01/2024 Time: 04:50 Bed 7 Private MD: ED Physician Moshe Chris HPI: 12/31 05:35 This 33 yrs old Female presents to ER via Ambulatory with complaints of sp4 Shortness Of Breath. 01/01 03:36 33-year-old female at 30 weeks 5 days EGA presents with complaint of worsening sp4 dyspnea and fatigue. . 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 - Infectious Disease History:: Denies. - Social history:: Smoking status: Patient denies any tobacco usage or history of. - Family history:: not pertinent. ROS: 01/01 03:36 Constitutional: Negative for fever, chills, and weight loss, positive dyspnea, positive sp4 fatigue All other systems are negative, Exam: 12/31 07:35 Constitutional: This is a well developed, well nourished patient who is awake, alert, sp4 and in no acute distress. Head/Face: Normocephalic, atraumatic. Eyes: Pupils equal round and reactive to light, extra-ocular motions intact. Lids and lashes normal. Conjunctiva and sclera are not injected. Cornea within normal limits. Periorbital areas with no swelling, redness, or edema. ENT: Nares patent. No nasal discharge, no septal abnormalities noted. Tympanic membranes are normal and external auditory canals are clear. Oropharynx with no redness, swelling, or masses, exudates, or evidence of obstruction, uvula midline. Mucous membranes moist. Neck: Trachea midline, no thyromegaly or masses palpated, and no cervical lymphadenopathy. Supple, full range of motion without nuchal rigidity, or vertebral point tenderness. Chest/axilla: Normal chest wall appearance and motion. Nontender with no deformity. No lesions are appreciated. Cardiovascular: Regular rate and rhythm with a normal S1 and S2. No gallops, murmurs, or rubs. Normal PMI, no JVD. No pulse deficits. Respiratory: Lungs have equal breath sounds bilaterally, clear to auscultation and percussion. No rales, rhonchi or wheezes noted. No increased work of breathing, no retractions or nasal flaring. Abdomen/GI: Soft, with normal bowel sounds. No distension or tympany. No guarding or rebound. No evidence of tenderness throughout. Back: No spinal tenderness. No costovertebral tenderness. Skin: Warm, dry with normal turgor. Normal color with no rashes, no lesions, and no evidence of cellulitis. MS/ Extremity: Pulses equal, no cyanosis. Neurovascular intact. Full, normal range of motion. Neuro: Awake and alert, GCS 15, oriented to person, place, time, and situation. Cranial nerves II-XII grossly intact. Motor strength 5/5 in all extremities. Sensory grossly intact. Psych: Awake, alert, with orientation to person, place and time. Behavior, mood, and affect are within normal limits ECG was reviewed by the Attending Physician. KG at 0 732 normal sinus rhythm rate 73, otherwise normal EKG. Vital Signs: 04:59 BP 114 / 64; Pulse 87; Resp 17; Temp 97.2(TE); Pulse Ox 100% on R/A; Weight 88.45 kg; ss Height 5 ft. 4 in. ; Pain 0/10; 06:02 BP 99 / 52; Pulse 82; Resp 17; Pulse Ox 97% ; dd2 06:42 BP 106 / 55; Pulse 65; Resp 12; Temp 97.2; Pulse Ox 96% on R/A; Pain 0/10; bm8 07:37 BP 114 / 54; Pulse 61; Resp 19; Pulse Ox 100% on R/A; iw 04:59 Body Mass Index 33.47 (88.45 kg, 162.56 cm) ss 04:59 Pain Scale: Adult ss 06:42 Pain Scale: Adult bm8 [place] Coma Score: 06:02 Eye Response: spontaneous(4). Motor Response: obeys commands(6). Verbal Response: dd2 oriented(5). Total: 15. 06:42 Eye Response: spontaneous(4). Motor Response: obeys commands(6). Verbal Response: bm8 oriented(5). Total: 15. 01/01 03:36 Eye Response: spontaneous(4). Motor Response: obeys commands(6). Verbal Response: sp4 oriented(5). Total: 15. MDM: 12/31 05:41 Patient medically screened. sp4 07:14 ED course: EXAM: US , Limited CLINICAL HISTORY: The patient is 33 years old sp4 and is Female; 31 weeks TECHNIQUE: Real-time limited ultrasound of the maternal uterus with image documentation. COMPARISON: No relevant prior studies available. FINDINGS: Fetus: Single fetus. AC: Abdominal circumference 26.6 cm. Position: Cephalic presentation. Heart rate: Heart rate 130 bpm. Placenta: Posterior placenta. Amniotic fluid: MIGUEL 15.7 cm. Cervix: Cervical length 3.5 cm. IMPRESSION: Single live fetus with EGA 30 weeks and five days. JAEL March 06, 2024. 01/01 03:37 Differential diagnosis: Anxiety Reaction asthma, Bronchitis Psychogenic. Data reviewed: sp4 vital signs, nurses notes, old medical records, lab test result(s), radiologic studies, ultrasound. ED course: Patient's workup unremarkable. Patient stable for discharge home. No signs of hypoxemia that would be indicative of pulmonary embolus. 12/31 05:35 Order name: CBC with Diff; Complete Time: 07:13 4 12/31 05:35 Order name: CMP; Complete Time: 07:13 sp4 12/31 05:35 Order name: Lipase; Complete Time: 07:13 sp4 12/31 05:35 Order name: Urinalysis w/ reflexes sp4 12/31 05:41 Order name: US OB Limited sp4 12/31 07:20 Order name: EKG; Complete Time: 07:20 sp4 12/31 05:35 Order name: IV Saline Lock; Complete Time: 06:55 sp4 12/31 05:35 Order name: Labs collected and sent; Complete Time: 06:01 sp4 12/31 06:25 Order name: Misc. Order: RECOLLECT LAVENDER AND GREEN; Complete Time: 06:55 rv1 12/31 07:20 Order name: EKG - Nurse/Tech; Complete Time: 07:37 sp4 EC/17 07:35 Rate is 73 beats/min. Rhythm is regular, Normal Sinus Rhythm. QRS [place] is Normal. DC sp4 interval is normal. QRS interval is normal. QT interval is normal. No Q waves. T waves are Normal. No ST changes noted. Clinical impression: Normal ECG. Interpreted by me. Reviewed by me. Administered Medications: 06:55 Drug: NS 0.9% IV 1000 ml IV at 1 bolus Per protocol; 1000 mL bolus Route: IV; Rate: 1 bm8 bolus; Site: right hand; Disposition: 01/01 03:38 Chart complete. sp4 Disposition Summary: 01/01/24 07:43 Discharge Ordered Notes: Location: Home sp4 Problem: new sp4 Symptoms: have improved sp4 Condition: Stable sp4 Diagnosis - Acute dyspnea, Third trimester , discomfort of sp4 Followup: sp4 - With: Private Physician - When: 7 - 10 days - Reason: Recheck today's complaints Discharge Instructions: - Discharge Summary Sheet sp4 - Care sp4 Forms: - Work release form ll1 - Patient Portal Instructions sp4 Signatures: Dispatcher [employer] Elissa Alamo RN RN ss Janna Waters rv1 Moshe Chris MD MD sp4 Grayson Morales RN RN bm8
[2024-01-01 08:21] VITALS: TEMP 97.2
[2024-01-01 08:38] VITALS: BP 114/54; O2SAT 100
--- NOTE | 2024-01-01 09:44 | RAD REPORT ---
EXAM: US , Limited CLINICAL HISTORY: The patient is 33 years old and is Female; 31 weeks TECHNIQUE: Real-time limited ultrasound of the maternal uterus with image documentation. COMPARISON: No relevant prior studies available. FINDINGS: Fetus: Single fetus. AC: Abdominal circumference 26.6 cm. Position: Cephalic presentation. Heart rate: Heart rate 130 bpm. Placenta: Posterior placenta. Amniotic fluid: MIGUEL 15.7 cm. Cervix: Cervical length 3.5 cm. IMPRESSION: Single live fetus with EGA 30 weeks and five days. JAEL March 06, 2024. Electronically signed by: Jimena English MD 01/01/2024 06:23 AM CDT RP Due to temporary technical issues with PACS / Fluency reporting system, reports are being signed by the in-house radiologist without review as a courtesy to ensure prompt reporting. The interpreting radiologist is fully responsible for the content of the report. Transcribed Date/Time: 01/01/2024 9:44 AM
--- NOTE | 2024-01-03 12:27 | EKG ---
Test Date: 2024-01-01 Test Time: 07:32:53 Information Engineer: HENRY MEASUREMENT RESULTS: Intervals: Rate: 73 GA: 150 QRSD: 84 QT: 376 QTc: 414 Evangeline: P: 39 GA: 150 QRS: 9 T: 8 INTERPRETIVE STATEMENTS: Normal sinus rhythm Cannot rule out Anterior infarct, age undetermined Abnormal ECG Compared to ECG 12/06/2023 02:38:40 No significant changes Electronically Signed On 01-03-24 12:19:34 CDT by Adelso Castellanos
--- NOTE | 2024-01-03 12:27 | EKG ---
Test Date: 2024-01-01 Test Time: 07:45:19 Job Coaching: DEEPAK MEASUREMENT RESULTS: Intervals: Rate: 77 KS: 154 QRSD: 88 QT: 408 QTc: 461 Thelma: P: 29 KS: 154 QRS: 21 T: 6 INTERPRETIVE STATEMENTS: Normal sinus rhythm Normal ECG Compared to ECG 01/01/2024 07:32:53 Myocardial infarct finding no longer present Electronically Signed On 01-03-24 12:19:33 CDT by Adelso Castellanos
== END 2024-01-01 08:03 | disposition home or self-care (01) ==
LOC: ER 04:50
DX: O99.513 Diseases of the respiratory system complicating pregnancy, third trimester (principal); O26.893 Other specified pregnancy related conditions, third trimester; R06.00 Dyspnea, unspecified; O99.113 Other diseases of the blood and blood-forming organs and certain disorders involving the immune mechanism complicating pregnancy, third trimester; D68.2 Hereditary deficiency of other clotting factors; Z3A.30 30 weeks gestation of pregnancy; Z79.01 Long term (current) use of anticoagulants
CPT/HCPCS: 93005; 85025; 36415; 81003; 83690; 80053; 76815; 99284; J7030